=== PATIENT | female | born 1950 | race Caucasian/White ===

== ENCOUNTER 2017-01-13 14:09 | Emergency (ER) | payer OTHER ==
[~2017-01-13] VITALS: Ht 167.6 cm; Wt 111.4 kg
[~2017-01-13 14:09] MED LIST: ALBUAER19 INH; ASPI81TA57 PO; DIPH25CA65 PO; FLUT110A INH; RANI300T PO; SIMV40TA2 PO; TRAM-453 PO; [UNRECOGNIZED DRUG - CODE] PO
[2017-01-13 14:15] VITALS: TEMP 36.8; Ht 167.6 cm; Wt 111.4 kg
[2017-01-13] MEDS ORDERED: ALBUTEROL 0.5% NEB SOLN 2.5 MG/0.5 ML VIAL INH STA (14:40)
[2017-01-13] MEDS ORDERED: PROCHLORPERAZINE 5 MG/ML 2 ML VIAL IV STA (14:40)
[2017-01-13] MEDS ORDERED: KETOROLAC TROMETHAMINE 30 MG/ML VIAL IV STA (14:40)
[2017-01-13] MEDS ORDERED: SODIUM CHLORIDE 0.9% 500ML 500 ML IV STA (14:40)
[2017-01-13] MEDS ORDERED: DEXAMETHASONE SOD INJ 10 MG/ML VIAL IV STA (14:40)
[2017-01-13] MEDS ORDERED: DiphenhydrAMINE HCL 50 MG/ML VIAL IV STA (14:40)
--- NOTE | 2017-01-13 14:42 | EMERGENCY ROOM VISIT NOTE ---
History Report prepared by Latoyaibherbert: Betzaida Smyth Under the Supervision of: Dr. Leonel Moreno M.D. First contact with patient: 14:31 Chief Complaint: PALPITATIONS Stated Complaint: SANCHEZ, RAPID HEARTBEAT, SOB History of Present Illness The patient is a 66 year old female who presents to the Emergency Room with complaints of persistent heart palpitations since last night. She denies any chest pain or shortness of breath. She reports she has been getting pain injections in her knees from Dr. Cool at [facility] for years. Yesterday, she had injections in her bilateral knees and last night, she developed a "pounding headache", urinary incontinence and heart palpitations. She took 2 Excedrin migraine tablets for her headache, and states they provided minimal relief. The patient believes her symptoms are a reaction to the shots, but note she has never had this type of reaction to them before. She also complains of a cough but states this is chronic for her. The patient admits she is a current 1/2 pack a day smoker. She believes she has undergone a stress test in the past. Her PCP is Dr. Haddad with [facility]. She is on daily Aspirin. Source of History: patient Onset: last night Position: chest Quality: other (heart palpitations) Timing: other (persistent) Associated Symptoms: + headache, + cough, No chest pain, No SOB Review of Systems See HPI for pertinent positives & negatives. A total of 10 systems reviewed and were otherwise negative. Past Medical & Surgical Medical Problems: (1) Asthma (2) Constipation (3) GERD (gastroesophageal reflux disease) (4) Headache above the eye region (5) History of migraine Family History Diabetes mellitus Heart disease MOTHER Kidney disease Kidney disease Kidney stones Social History Smoking Status: Current Every Day Smoker Drug Use: none Marital Status: single Housing Status: lives with family Occupation Status: retired Current/Historical Medications Scheduled Acetaminophen (Tylenol), 1,000 MG PO PRN UD Aspirin (Aspirin Adult Low Strengt), 81 MG PO DAILY Aoikrdb-Kqcmqcmicpvvz-Iynrsfnd (Excedrin Migraine), 1 TAB PO PRN Fluticasone Propionate (Flovent Hfa), 2 PUFF IN BID Fluticasone Propionate (Nasal) (Flonase Allergy Relief), 2 SPRAYS RICH BID Ibuprofen (Advil), 400 MG PO PRN UD Pantoprazole (Protonix), 40 MG PO DAILY Utzvnykhuasvl-Lw-Ju W/ Apap (Sudafed Pe Sinus Pressure), 1 TAB PO DAILY Ranitidine Hcl (Zantac), 300 MG PO HS Simvastatin (Zocor), 40 MG PO QPM [Allergy Plus Sinus], 1 TAB PO QPM [Night Time Severe], 1 TSP PO DAILY [Pain Relief Es Back], 2 TABS PO HS Scheduled PRN Albuterol Hfa (Ventolin Hfa), 2 PUFFS INH Q4 PRN for SOB/Wheezing Tramadol Hcl (Ultram), 1-2 TABS PO BID PRN for Pain Allergies Coded Allergies: No Known Allergies (Verified , 05/22/15) Physical Exam Vital Signs Date Time Temp Pulse Resp B/P (MAP) Pulse Ox O2 Delivery O2 Flow Rate FiO2 01/13/17 16:31 69 18 175/89 95 01/13/17 15:08 74 18 143/73 93 Room Air 01/13/17 14:49 94 Room Air 01/13/17 14:21 95 Room Air 01/13/17 14:15 36.8 87 17 154/79 96 Room Air Physical Exam GENERAL: Patient is a healthy-appearing well-nourished 66 year old female HEAD: Normocephalic atraumatic EYES: Ocular movements intact pupils equal and react to light OROPHARYNX mucous membranes are moist no exudates present no erythema or edema present NECK: Supple no nuchal rigidity. No evidence of meningitis or encephalitis on exam. CHEST: Good equal expansion LUNGS: Clear and equal to auscultation CARDIAC: Normal S1 and S2 ABDOMEN: Soft nontender no guarding BACK: No CVA tenderness EXTREMITIES: No pain upon palpation normal muscle strength in all groups no clubbing cyanosis or edema NEURO: Patient is following commands is answering questions appropriately. Alert and oriented x3 Cranial Nerves 2-12 grossly intact Medical Decision & Procedures ER Provider Diagnostic Interpretation: Radiology results as stated below per my review and radiologist interpretation: CHEST ONE VIEW PORTABLE CLINICAL HISTORY: CHEST PAIN SHORTNESS OF BREATH COMPARISON STUDY: No previous studies for comparison. FINDINGS: The cardiac and mediastinal contours are normal. There is no evidence of focal pulmonary consolidation. There is no evidence of failure. No pleural effusions are visualized. IMPRESSION: No active disease in the chest. Electronically signed by: Jason Ortega M.D. 01/13/2017 3:10 PM Laboratory Results 01/13/17 15:00 Red Blood Count 4.41, Mean Corpuscular Volume 99.3, Mean Corpuscular Hemoglobin 33.6, Mean Corpuscular Hemoglobin Concent 33.8, Mean Platelet Volume 10.5, Neutrophils (%) (Auto) 84.6, Lymphocytes (%) (Auto) 7.4, Monocytes (%) (Auto) 7.8, Eosinophils (%) (Auto) 0.0, Basophils (%) (Auto) 0.0, Neutrophils # (Auto) 10.46, Lymphocytes # (Auto) 0.91, Monocytes # (Auto) 0.96, Eosinophils # (Auto) 0.00, Basophils # (Auto) 0.00 01/13/17 15:00 Test 01/13/17 15:00 White Blood Count 12.36 K/uL (4.8-10.8) Red Blood Count 4.41 M/uL (4.2-5.4) Hemoglobin 14.8 g/dL (12.0-16.0) Hematocrit 43.8 % (37-47) Mean Corpuscular Volume 99.3 fL (80-100) Mean Corpuscular Hemoglobin 33.6 pg (25-34) Mean Corpuscular Hemoglobin Concent 33.8 g/dl (32-36) Platelet Count 274 K/uL (130-400) Mean Platelet Volume 10.5 fL (7.4-10.4) Neutrophils (%) (Auto) 84.6 % Lymphocytes (%) (Auto) 7.4 % Monocytes (%) (Auto) 7.8 % Eosinophils (%) (Auto) 0.0 % Basophils (%) (Auto) 0.0 % Neutrophils # (Auto) 10.46 K/uL (1.4-6.5) Lymphocytes # (Auto) 0.91 K/uL (1.2-3.4) Monocytes # (Auto) 0.96 K/uL (0.11-0.59) Eosinophils # (Auto) 0.00 K/uL (0-0.5) Basophils # (Auto) 0.00 K/uL (0-0.2) RDW Standard Deviation 55.7 fL (36.4-46.3) RDW Coefficient of Variation 15.3 % (11.5-14.5) Immature Granulocyte % (Auto) 0.2 % Immature Granulocyte # (Auto) 0.03 K/uL (0.00-0.02) Anion Gap 6.0 mmol/L (3-11) Est Creatinine Clear Calc Drug Dose 82.0 ml/min Estimated GFR () 84.0 Estimated GFR (Non- 72.5 BUN/Creatinine Ratio 24.6 (10-20) Calcium Level 9.9 mg/dl (8.5-10.1) Total Bilirubin 0.2 mg/dl (0.2-1) Direct Bilirubin < 0.1 mg/dl (0-0.2) Aspartate Amino Transf (AST/SGOT) 17 U/L (15-37) Alanine Aminotransferase (ALT/SGPT) 13 U/L (12-78) Alkaline Phosphatase 95 U/L (45-117) Total Creatine Kinase 67 U/L (26-192) Creatine Kinase MB 0.7 ng/ml (0.5-3.6) Creatine Kinase MB Ratio 1.0 (0-3.0) Troponin I < 0.015 ng/ml (0-0.045) Total Protein 8.1 gm/dl (6.4-8.2) Albumin 3.9 gm/dl (3.4-5.0) Lipase 169 U/L (73-393) Labs reviewed by ED physician. Medications Administered Medications (Trade) Dose Ordered Sig/Nathalie Route Start Time Stop Time Status Last Admin Dose Admin Sodium Chloride 500 ml @ 999 mls/hr Q31M STAT IV 01/13/17 14:40 01/13/17 15:10 DC 01/13/17 15:05 999 MLS/HR Ketorolac Tromethamine (Toradol Inj) 30 mg NOW STAT IV 01/13/17 14:40 01/13/17 14:43 DC 01/13/17 15:06 30 MG Prochlorperazine Edisylate (Compazine Inj) 10 mg NOW STAT IV 01/13/17 14:40 01/13/17 14:43 DC 01/13/17 15:06 10 MG Diphenhydramine HCl (Benadryl Inj) 50 mg NOW STAT IV 01/13/17 14:40 01/13/17 14:43 DC 01/13/17 15:06 50 MG Albuterol Sulfate (Ventolin 0.5% 2.5MG/0.5ML Neb) 2.5 mg NOW STAT INH 01/13/17 14:40 01/13/17 14:43 DC 01/13/17 15:07 2.5 MG Dexamethasone Sodium Phosphate (Decadron Inj) 10 mg NOW STAT IV 01/13/17 14:40 01/13/17 14:43 DC 01/13/17 15:06 10 MG ECG Indication: palpitations Rate (beats per minute): 73 Rhythm: normal sinus Findings: no acute ischemic change, no ectopy ED Course 1433: Past medical records reviewed. The patient was evaluated in room B11B. A complete history and physical examination was performed. 1440: Decadron 10 mg IV, Alubterol Sulfate 2.5 mg INH, Benadryl 50 mg IV, Compazine 10 mg IV, Toradol 30 mg IV, NSS 500 ml @ 999 mls/hr IV. 1605: I reevaluated the patient. She is feeling much better. I discussed her results and discharge instructions and she verbalized complete understanding and agreement. Medical Decision This is is a 66-year-old female who presents emergency Department with multiple complaints. Patient is complaining of palpitations along with headache. Patient has no evidence of meningitis encephalitis on examination. The patient' s family member believes that the patient is suffering from a lot of anxiety. Regardless she has a normal EKG normal CK-MB troponin. She was given medications for headache. She has had previous imaging of her head in the past. She describes this as not the worst pain of her life and the headache pain actually went away last evening. For this reason the patient was treated for migraine given normal saline bolus Toradol Compazine and Benadryl. Repeat examination revealed much improvement the patient's symptoms. I do feel that the patient as well as to be discharged home if she has normal CK-MB troponin as well as EKG. I strongly recommended follow-up with cardiology at no strenuous activity until that follow-up. Patient was in agreement with the treatment plan. Medication Reconcilliation Current Medication List: was personally reviewed by me Blood Pressure Screening Patient's blood pressure: Elevated blood pressure Blood pressure disposition: Referred to PCP Impression Primary Impression: Headache Scribe Attestation The scribe's documentation has been prepared under my direction and personally reviewed by me in its entirety. I confirm that the note above accurately reflects all work, treatment, procedures, and medical decision making performed by me. Departure Information Dispostion Home / Self-Care Referrals No Doctor, Assigned (PCP) Patient Instructions Headache Pain, Hypertension Dc, My [facility] Additional Instructions Follow up with DR Hanna's office No strenuous activity until follow up You were found to have an elevated blood pressure today (>120 sytolic or >90 diastolic). Per medicare guidelines, you need to follow up with this blood pressure screening with your Primary Care Physician (PCP). For a new PCP call [phone]. You have been examined and treated today on an emergency basis only. This is not a substitute for, or an effort to provide, complete comprehensive medical care. It is impossible to recognize and treat all injuries or illnesses in a single emergency department visit. It is therefore important that you follow up closely with Dr Haddad. Call as soon as possible for an appointment. Thank you for your time and consideration. I look forward to speaking with you again soon. Please don't hesitate to call us if you have any questions. Problem Qualifiers Primary Impression: Headache Headache type: unspecified Headache chronicity pattern: unspecified pattern Intractability: not intractable Qualified Codes: R51 - Headache
[2017-01-13 14:49] VITALS: O2SAT 94
[2017-01-13] MEDS ORDERED: ASPI-495 PO (15:02)
[2017-01-13] MEDS ORDERED: VNTHFA/IN INH (15:02)
[2017-01-13] MEDS ORDERED: FLVHFA110 IN (15:02)
[2017-01-13 15:09] LABS: COMPLETE YES; HEMATOCRIT 43.8 % (37-47); IG% 0.2 %; LYMPH % 7.4 %; LYMPH ABS # 0.91 K/uL (1.2-3.4); MEAN CELL VOLUME 99.3 fL (80-100); MEAN CORPUSCULAR HEMOGLOBIN 33.6 pg (25-34); MEAN CORPUSCULAR HGB CONC 33.8 g/dl (32-36); MEAN PLATELET VOLUME 10.5 fL (7.4-10.4); MONO % 7.8 %; NEUT % 84.6 %; PLATELET COUNT 274 K/uL (130-400); RED BLOOD COUNT 4.41 M/uL (4.2-5.4); WHITE BLOOD COUNT 12.36 K/uL (4.8-10.8)
[2017-01-13] MEDS ORDERED: PANT40TA PO (15:09)
--- NOTE | 2017-01-13 15:11 | DIAGNOSTIC IMAGING REPORT ---
CHEST ONE VIEW PORTABLE CLINICAL HISTORY: CHEST PAIN SHORTNESS OF BREATH COMPARISON STUDY: No previous studies for comparison. FINDINGS: The cardiac and mediastinal contours are normal. There is no evidence of focal pulmonary consolidation. There is no evidence of failure. No pleural effusions are visualized.[ IMPRESSION: No active disease in the chest. Electronically signed by: Jason Ortega M.D. 01/13/2017 3:10 PM Dictated Date/Time: 01/13/2017 3:09 PM
[2017-01-13 15:26] LABS: ALT/SGPT 13 U/L (12-78); BLOOD UREA NITROGEN 20 mg/dl (7-18); BUN/CREATININE RATIO 24.6 (10-20); CALCIUM 9.9 mg/dl (8.5-10.1); CARBON DIOXIDE 25 mmol/L (21-32); CHLORIDE 113 mmol/L (98-107); CREATININE 0.83 mg/dl (0.60-1.20); GLUCOSE 104 mg/dl (70-99); POTASSIUM 4.1 mmol/L (3.5-5.1); SODIUM 144 mmol/L (136-145)
[2017-01-13 15:32] LABS: ALKALINE PHOSPHATASE 95 U/L (45-117); AST/SGOT 17 U/L (15-37)
[2017-01-13] MEDS ORDERED: [UNRECOGNIZED DRUG - REMARK] PO (15:35)
[2017-01-13] MEDS ORDERED: [UNRECOGNIZED DRUG - OTHER] PO (15:35)
[2017-01-13] MEDS ORDERED: ACET-1256 PO (15:35)
[2017-01-13] MEDS ORDERED: IBUP-1050 PO (15:35)
[2017-01-13] MEDS ORDERED: FLUT0.15 NAE (15:35)
[2017-01-13] MEDS ORDERED: ASPI-390 PO (15:35)
[2017-01-13] MEDS ORDERED: [UNRECOGNIZED DRUG - OTHER] PO (15:35)
[2017-01-13 16:31] VITALS: BP 175/89; PULSE 69; O2SAT 95
== END 2017-01-13 16:32 | disposition home or self-care (01) ==
LOC: C.EDB 14:10
DX: R51 Headache (principal); J45.909 Unspecified asthma, uncomplicated; K21.9 Gastro-esophageal reflux disease without esophagitis; F17.200 Nicotine dependence, unspecified, uncomplicated; Z83.3 Family history of diabetes mellitus; Z84.1 Family history of disorders of kidney and ureter; Z79.82 Long term (current) use of aspirin; Z79.899 Other long term (current) drug therapy

== ENCOUNTER 2022-04-03 08:21 | Observation (INO) ==
--- NOTE | 2022-04-03 08:44 | Emergency Department Note ---
Impression & Plan Hypoxia, CHF (congestive heart failure), SOB (shortness of breath), Pedal edema ED Provider Note NAME: IDRIS YOUNG AGE: 71 SEX: F : 1950 ARRIVES VIA: Ambulance INFORMANT: [Patient][friend, nursing] ED PROVIDER(S): [Sterling Gutierrez MD] CHIEF COMPLAINT: Short of breath HISTORY OF PRESENT ILLNESS: The patient is a 71-year-old female presents to the ED with increasing dyspnea over the last week. As per EMS, her O2 saturation was 88% today and required 6 L to get her over 90%. After a DuoNeb in route, she was requiring 4 L. She does not typically wear oxygen at home. The patient has noticed some increasing pedal edema. Her shortness of breath is worse with any type of exertion. She is not sure if she has gained fluid weight. She does take Lasix daily and has not missed any doses. There has been no increased cough, no fever or chills. No abdominal pain, no vomiting or diarrhea. The patient does have a history of CHF. She has had a bovine aortic valve replacement. She is on Plavix. She also has COPD. She does have a nebulizer at home that she has been using. REVIEW OF SYSTEMS: See HPI for pertinent positives and negatives. A total of ten systems were reviewed and were otherwise negative. PMHx/PSHx: See Below SOCIAL HISTORY: See Below. PHYSICAL EXAM: GENERAL: Patient is in no acute distress. HEENT: No acute trauma, normocephalic atraumatic, mucous membranes moist, no nasal congestion, no scleral icterus. NECK: No stridor, no adenopathy, no meningismus, trachea is midline. LUNGS: Crackles heard bilaterally, no wheezing, no obvious respiratory distress, breath sounds equal. HEART: Without murmurs gallops or rubs, regular rate and rhythm. ABDOMEN: Soft, nontender, bowel sounds positive, no peritonitis. Obese. EXTREMITIES: No cyanosis, moderate bilateral pedal edema somewhat worse on the left, full range of motion of all the joints without pain or difficulty, no signs for acute trauma. NEUROLOGIC: Oriented x 3, no acute motor or sensory deficits, no focal weakness. SKIN: No rash, no jaundice, no diaphoresis. DIFFERENTIAL DIAGNOSIS: Reactive airway disease, pneumonia, RSV, COVID-19, influenza, pneumothorax, COPD, CHF, infection, cardiac ischemia, anemia, pulmonary embolism, bronchitis, as well as other pathologies. EMERGENCY DEPARTMENT COURSE/PROCEDURES: ECG: Indication was shortness of breath. The ECG shows a normal sinus rhythm with a rate of 87. LVH is present. There is no ST elevation, no PVCs. There is some diffuse nonspecific ST change and some baseline artifact. The QTc is 430. Continuous Cardiac Monitoring: An order was placed for continuous cardiac monitoring. The monitor shows a rate of 95 with normal sinus rhythm. Critical Care Note: I have personally spent 51 minutes of critical care time in the direct management of this patient. This includes bedside care, int erpretation of diagnostic studies, and testing, discussion with consultants, patient, and family members, and other required patient management activities. This 51 minutes is in excess of all separately billable procedures. MEDICAL DECISION MAKING: There is no leukocytosis or concerning anemia. There is a normal platelet count. No coagulopathy. No renal failure or significant electrolyte abnormality. Alk phos slightly elevated but the remaining liver enzymes were unremarkable. ECG shows a sinus rhythm, no obvious ischemia. Cardiac enzyme testing x1 is not consistent with acute cardiac injury. BNP is not elevated. Chest film does show CHF. There was no pneumonia. Urinalysis does not show findings of infection. On exam, the patient had crackles in both lung cobos. She was hypoxic without O2 supplementation. Patient was maintained on nasal cannula supplementation. She was administered 80 mg of IV Lasix. The patient appears to be hypoxic and short of breath from heart failure. She is going to require a hospital stay for diuresis. I spoke with the patient and case management, the on-call hospitalist was consulted. Past Med/Surg History Medical History Aortic stenosis Atrial fibrillation Cardiac murmur CHF (congestive heart failure) COPD (chronic obstructive pulmonary disease) Dyslipidemia GERD (gastroesophageal reflux disease) Kidney stones Migraine Osteoarthritis SOB (shortness of breath) on exertion Stomach ulcer HX Tobacco abuse quit 3 months ago Surgical History History of colonoscopy History of cystoscopy History of esophagogastroduodenoscopy (EGD) Hx of cholecystectomy Family History (Updated 10/17/18 @ 11:00 by Jeannie Walter RN) Father Family history of diabetes mellitus Social History Smoking Status: Former smoker Cigarettes Per Day: QUIT 2 MONTHS AGO; Second Hand Exposure: No; Hx Alcohol Use: No Hx Substance Use: No Preferred Language: [place] Communication Ability: Effective Train Planner Required: No Beliefs That Will Affect Care: None Current Living Situation: Family Current Living Situation Comment: lives with sister and [id number] Feels Safe at Home: Yes Assistive Devices: Denture - Upper, Denture - Lower and Glasses Allergies Allergies Allergy/AdvReac Type Severity Reaction Status Date / Time dog dander Allergy Intermediate Sneezing Verified 03/20/19 08:57 egg Allergy SPECIFIC-DUCK Verified 03/20/19 08:57 EGG CAUSED FACIAL SWELLING pollen extracts Allergy HAYFEVER Verified 03/20/19 08:57 methylprednisolone AdvReac Unknown Verified 03/20/19 08:57 [From Depo-Medrol] Home Meds Home Medications Medication Instructions Recorded Confirmed albuterol sulfate 90 mcg/actuation 2 puff inhalation QID PRN 01/02/18 03/19/19 aerosol inhaler (Ventolin HFA) Shortness Of Breath Or Wheezing pantoprazole 40 mg tablet,delayed 40 mg PO BID 01/02/18 03/19/19 release ranitidine HCl 300 mg capsule 150 mg PO BID 01/02/18 03/19/19 metoprolol succinate 25 mg capsule 25 mg PO QAM 09/04/18 03/19/19 sprinkle, ext. release 24 hr acetaminophen 500 mg tablet 500 mg PO Q6H PRN Pain 10/17/18 03/19/19 (Tylenol Extra Strength) amiodarone 200 mg tablet 200 mg PO QAM 10/17/18 03/19/19 ascorbic acid (vitamin C) 500 mg 1,000 mg PO DAILY@12 10/17/18 03/19/19 tablet tramadol 50 mg tablet 50 mg PO UD PRN headache or 10/17/18 03/19/19 arthritis pain aspirin 81 mg chewable tablet 81 mg PO DAILY 03/19/19 03/19/19 fluticasone propionate 220 1 puff inhalation BID 03/19/19 03/19/19 mcg/actuation HFA aerosol inhaler (Flovent HFA) Previous Rx's Medication Instructions Recorded ferrous sulfate 325 mg (65 mg 325 mg PO DAILY@12 #30 tabs 07/21/18 iron) tablet furosemide 20 mg tablet 20 mg PO QAM #30 tabs 07/21/18 magnesium oxide 400 mg (241.3 mg 400 mg PO BID #60 tabs 07/21/18 magnesium) tablet nystatin 100,000 unit/gram topical 1 applic topical TID #60 grams 11/28/21 powder Results & Data (ED) Vital Signs Vital Signs - 24 hr 04/03/22 08:40 04/03/22 08:40 04/03/22 08:40 Temperature 36.7 C Temperature Source Oral Pulse Rate 95 H Respiratory Rate 24 Respiratory Effort / Characteristics Short of Breath Respiratory Pattern Regular Blood Pressure 153/85 H Blood Pressure Mean 107 Blood Pressure Position Sitting Pulse Oximetry 92 Oxygen Delivery Method Room Air Room Air Sepsis Recent Fever Within 48 Hours No Sepsis New/Unexplained Change in Mental Status No Sepsis Action Taken by Nursing No Action Required 04/03/22 08:40 04/03/22 08:43 Temperature Temperature Source Oral Pulse Rate Respiratory Rate Respiratory Effort / Characteristics Respiratory Pattern Blood Pressure Blood Pressure Mean Blood Pressure Position Pulse Oximetry Oxygen Delivery Method Room Air Sepsis Recent Fever Within 48 Hours Sepsis New/Unexplained Change in Mental Status Sepsis Action Taken by [facility] Medications Current Medication List: was personally reviewed by me Laboratory Data Attestation: I reviewed the patient's lab results. Result diagrams: 04/03/22 08:30 04/03/22 08:30 Lab Results 04/03/22 04/03/22 04/03/22 Range/Units 08:30 08:30 08:30 WBC 9.93 (4.8-10.8) K/ul RBC 3.83 L (3.93-5.22) M/uL Hgb 12.0 (12.0-16.0) g/dl Hct 38.4 (34.1-44.9) % MCV 100.3 H (80.0-100.0) fL MCH 31.3 (25.0-34.0) pg MCHC 31.3 L (32.0-36.0) g/dL RDW Std Deviation 56.8 H (36.4-46.3) fL RDW Coeff of Moni 15.5 H (11.5-14.5) % Plt Count 249 (130-400) K/uL MPV 10.8 (9.4-12.3) fL Immature Gran % (Auto) 0.3 % Neut % (Auto) 65.3 % Lymph % (Auto) 18.3 % Boundary % (Auto) 11.1 % Eos % (Auto) 4.6 % Baso % (Auto) 0.4 % Neut # (Auto) 6.48 (1.4-6.5) K/uL Lymph # (Auto) 1.82 (1.2-3.4) K/uL Boundary # (Auto) 1.10 H (0.24-0.82) K/uL Eos # (Auto) 0.46 (0-0.50) K/uL Baso # (Auto) 0.04 (0-0.2) K/uL Immature Gran # (Auto) 0.03 H (0.00-0.02) K/uL PT 10.3 (9.0-12.0) Seconds INR 1.0 (0.9-1.1) APTT 28.8 (21.0-31.0) Seconds PTT Ratio 1.0 Sodium 140 (136-145) mmol/L Potassium 4.2 (3.5-5.1) mmol/L Chloride 107 (98-107) mmol/L Carbon Dioxide 26 (21-32) mmol/L Anion Gap 7 (3-11) BUN 24 H (6-23) mg/dl Creatinine 1.11 (0.6-1.2) mg/dl Est Cr Clr Drug Dosing 66.8 ml/min Est GFR ( Amer) 57.1 ml/min Est GFR (Non-Af Amer) 49.2 ml/min BUN/Creatinine Ratio 21.6 H (10-20) Glucose 115 H (70-99(Fasting)) mg/dl Calcium 8.9 (8.5-10.1) mg/dl Magnesium 2.1 (1.7-2.4) mg/dl Total Bilirubin 0.5 (0.2-1.0) mg/dl AST 16 (13-39) U/L ALT 10 (7-52) U/L Alkaline Phosphatase 113 H (34-104) U/L Troponin I High Sens 7.6 (0-14) pg/ml B-Natriuretic Peptide (0-100) pg/ml Total Protein 7.7 (6.0-8.3) gm/dl Albumin 3.7 (3.4-5.0) gm/dl Globulin 4.0 (2.5-4.0) gm/dl Albumin/Globulin Ratio 0.9 (0.9-2) Urine Color Urine Appearance (Clear) Urine pH (4.5-7.5) Ur Specific [place] (1.000-1.030) Urine Protein (Negative) Urine Glucose (UA) (Negative) Urine Ketones (Negative) Urine Blood (Negative) Urine Nitrite (Negative) Urine Bilirubin (Negative) Urine Urobilinogen (Negative) Ur Leukocyte Esterase (Negative) Urine WBC (Auto) (0-5) /hpf Urine RBC (Auto) (0-4) /hpf U Hyaline Cast (Auto) (0-5) /lpf U Epithel Cells (Auto) (0-5) /lpf Urine Bacteria (Auto) (Negative) 04/03/22 04/03/22 Range/Units 08:30 08:50 WBC (4.8-10.8) K/ul RBC (3.93-5.22) M/uL Hgb (12.0-16.0) g/dl Hct (34.1-44.9) % MCV (80.0-100.0) fL MCH (25.0-34.0) pg MCHC (32.0-36.0) g/dL RDW Std Deviation (36.4-46.3) fL RDW Coeff of Moni (11.5-14.5) % Plt Count (130-400) K/uL MPV (9.4-12.3) fL Immature Gran % (Auto) % Neut % (Auto) % Lymph % (Auto) % Boundary % (Auto) % Eos % (Auto) % Baso % (Auto) % Neut # (Auto) (1.4-6.5) K/uL Lymph # (Auto) (1.2-3.4) K/uL Bound[place] # (Auto) (0.24-0.82) K/uL Eos # (Auto) (0-0.50) K/uL Baso # (Auto) (0-0.2) K/uL Immature Gran # (Auto) (0.00-0.02) K/uL PT (9.0-12.0) Seconds INR (0.9-1.1) APTT (21.0-31.0) Seconds PTT Ratio Sodium (136-145) mmol/L Potassium (3.5-5.1) mmol/L Chloride (98-107) mmol/L Carbon Dioxide (21-32) mmol/L Anion Gap (3-11) BUN (6-23) mg/dl Creatinine (0.6-1.2) mg/dl Est Cr Clr Drug Dosing ml/min Est GFR ( Amer) ml/min Est GFR (Non-Af Amer) ml/min BUN/Creatinine Ratio (10-20) Glucose (70-99(Fasting)) mg/dl Calcium (8.5-10.1) mg/dl Magnesium (1.7-2.4) mg/dl Total Bilirubin (0.2-1.0) mg/dl AST (13-39) U/L ALT (7-52) U/L Alkaline Phosphatase (34-104) U/L Troponin I High Sens (0-14) pg/ml B-Natriuretic Peptide 41 (0-100) pg/ml Total Protein (6.0-8.3) gm/dl Albumin (3.4-5.0) gm/dl Globulin (2.5-4.0) gm/dl Albumin/Globulin Ratio (0.9-2) Urine Color Yellow Urine Appearance Clear (Clear) Urine pH 7.0 (4.5-7.5) Ur Specific [place] 1.011 (1.000-1.030) Urine Protein Negative (Negative) Urine Glucose (UA) Negative (Negative) Urine Ketones Negative (Negative) Urine Blood Negative (Negative) Urine Nitrite Negative (Negative) Urine Bilirubin Negative (Negative) Urine Urobilinogen Negative (Negative) Ur Leukocyte Esterase Trace H (Negative) Urine WBC (Auto) 1-5 (0-5) /hpf Urine RBC (Auto) 0-4 (0-4) /hpf U Hyaline Cast (Auto) 0 (0-5) /lpf U Epithel Cells (Auto) 10-20 H (0-5) /lpf Urine Bacteria (Auto) Negative (Negative) Imaging Data Radiologist's Impression: Chest X-Ray 04/03/22 08:39 XR chest 1V portable HISTORY: 71 years-old Female Dyspnea acute shortness of breath COMPARISON: Chest CT 07/16/2018 TECHNIQUE: AP view of the chest FINDINGS: Cardiac silhouette is enlarged. No pneumothorax. Pulmonary vascular congestion. Irregular interstitial densities with patchy multifocal airspace opacities, most pronounced within a peripheral distribution. Small pleural effusions. No pneumothorax. Bones appear grossly intact. IMPRESSION: 1. Cardiomegaly with mixed interstitial and alveolar opacities suspicious for an infectious or inflammatory pneumonitis such as viral pneumonia. Superimposed pulmonary edema could appear similarly. 2. Small pleural effusions. ACT 112: Negative or not required by law. The above report was generated using voice recognition software. It may contain grammatical, syntax or spelling errors. Electronically signed by: Scout Morgan M.D. 04/03/2022 9:14 AM Discharge Plan Visit Data Chief Complaint: Shortness of Breath/Dyspnea Stated Complaint: SOB, LEG EDEMA ED Provider: Sterling Gutierrez Discharge Problem: Hypoxia, CHF (congestive heart failure), SOB (shortness of breath), Pedal edema Patient Disposition: Admitted As Inpatient Condition: Fair Forms Stand Alone Forms: [facility] Prescriptions Prescriptions: No Action pantoprazole 40 mg Tablet,Delayed Release (Dr/Ec) 40 mg PO BID ranitidine HCl 300 mg Capsule 150 mg PO BID albuterol sulfate [Ventolin HFA] 90 mcg/actuation Hfa Aerosol Inhaler 2 puff INHALATION QID PRN (Reason: Shortness Of Breath Or Wheezing) Label Comments: Patient states "haven't taken this for months". metoprolol succinate 25 mg Capsule,Sprinkle,Er 24hr 25 mg PO QAM aspirin 81 mg Tablet,Chewable 81 mg PO DAILY Flovent HFA 220 mcg/actuation Hfa Aerosol Inhaler 1 puff INHALATION BID furosemide 20 mg Tablet 20 mg PO QAM Qty: 30 5RF magnesium oxide 400 mg (241.3 mg magnesium) Tablet 400 mg PO BID Qty: 60 5RF ferrous sulfate 325 mg (65 mg iron) tablet 325 mg PO DAILY@12 Qty: 30 5RF Rx Instructions: Take with lunch + ascorbic acid. amiodarone 200 mg tablet 200 mg PO QAM tramadol 50 mg tablet 50 mg PO UD PRN (Reason: headache or arthritis pain) ascorbic acid (vitamin C) 500 mg tablet 1,000 mg PO DAILY@12 Rx Instructions: Take with ferrous sulfate. acetaminophen [Tylenol Extra Strength] 500 mg Tablet 500 mg PO Q6H PRN (Reason: Pain) nystatin 100,000 unit/gram powder 1 applic topical TID Qty: 60 0RF Referrals Referrals: Jesi Haddad DO [Outside Practitioners] -
[2022-04-03 08:52] LABS: Basophils # (auto) 0.04 K/uL (0-0.2); Basophils % (auto) 0.4 %; Eosinophils # (auto) 0.46 K/uL (0-0.50); Eosinophils % (auto) 4.6 %; Hematocrit (blood only) 38.4 % (34.1-44.9); Immature Granulocytes # (auto) 0.03 K/uL (0.00-0.02); Immature Granulocytes % (auto) 0.3 %; Lymphocytes # (auto) 1.82 K/uL (1.2-3.4); Lymphocytes % (auto) 18.3 %; Mean Corpuscular Hemoglobin 31.3 pg (25.0-34.0); Mean Corpuscular Hgb Conc 31.3 g/dL (32.0-36.0); Mean Corpuscular Volume 100.3 fL (80.0-100.0); Mean Platelet Volume 10.8 fL (9.4-12.3); Monocytes % (auto) 11.1 %; Neutrophils # (auto) 6.48 K/uL (1.4-6.5); Neutrophils % (auto) 65.3 %; Platelet Count 249 K/uL (130-400); RDW Coefficient of Variation 15.5 % (11.5-14.5); RDW Standard Deviation 56.8 fL (36.4-46.3); Red Blood Count 3.83 M/uL (3.93-5.22); White Blood Count 9.93 K/ul (4.8-10.8)
[2022-04-03 09:03] LABS: Partial Thromboplastin Time 28.8 Seconds (21.0-31.0); Prothrombin Time 10.3 Seconds (9.0-12.0)
[2022-04-03 09:07] LABS: Appearance Urine Clear (Clear); Bacteria Urine Automated Negative (Negative); Bilirubin Urine Negative (Negative); Blood Urine Negative (Negative); Cast Urine Automated 0 /lpf (0-5); Color Urine Yellow; Glucose Urine UA Negative (Negative); Ketones Urine Negative (Negative); Leukocyte Esterase Urine Trace (Negative); Nitrite Urine Negative (Negative); Protein Urine Negative (Negative); RBC Urine Automated 0-4 /hpf (0-4); Specific Gravity Urine 1.011 (1.000-1.030); Urobilinogen Urine Negative (Negative)
[2022-04-03 09:14] LABS: Albumin Globulin Ratio 0.9 (0.9-2); Albumin Level 3.7 gm/dl (3.4-5.0); BUN Creatinine Ratio 21.6 (10-20); Bilirubin,Total 0.5 mg/dl (0.2-1.0); Calcium 8.9 mg/dl (8.5-10.1); Creatinine Clr Calc Pharmacy 66.8 ml/min; Est GFR (African American) 57.1 ml/min; Est GFR (Non-African American) 49.2 ml/min; Magnesium 2.1 mg/dl (1.7-2.4); Potassium 4.2 mmol/L (3.5-5.1); Total Protein 7.7 gm/dl (6.0-8.3)
--- NOTE | 2022-04-03 09:16 | XRay Report ---
XR chest 1V portable HISTORY: 71 years-old Female Dyspnea acute shortness of breath COMPARISON: Chest CT 07/16/2018 TECHNIQUE: AP view of the chest FINDINGS: Cardiac silhouette is enlarged. No pneumothorax. Pulmonary vascular congestion. Irregular interstitia l densities with patchy multifocal airspace opacities, most pronounced within a peripheral distributi on. Small pleural effusions. No pneumothorax. Bones appear grossly intact. IMPRESSION: 1. Cardiomegaly with mixed interstitial and alveolar opacities suspicious for an infectious or inflam matory pneumonitis such as viral pneumonia. Superimposed pulmonary edema could appear similarly. 2. Small pleural effusions. ACT 112: Negative or not required by law. The above report was generated using voice recognition software. It may contain grammatical, syntax o r spelling errors. Electronically signed by: Scout Morgan M.D. 04/03/2022 9:14 AM
[2022-04-03 09:19] LABS: Troponin I High Sensitivity 7.6 pg/ml (0-14)
[2022-04-03] MEDS ORDERED: FUROSEMIDE 40 MG/4 ML VIAL IV ONE (09:22)
--- NOTE | 2022-04-03 09:55 | History & Physical Report ---
Date of Service April 03, 2022 Assessment & Plan (1) CHF (congestive heart failure): Plan: Acute CHF with with preserved EF Hypoxia due to above H/O TAVR CXR showed: Cardiomegaly with mixed interstitial and alveolar opacities suspicious for an infectious or inflammatory pneumonitis such as viral pneumonia. Superimposed pulmonary edema could appear similarly. Small pleural effusions. Last ECHO :May 2019: EF greater than 70%, normal LV segmental wall motion abnormalities. The right ventricular systolic function is normal. Hold PO diuretics Start IV Lasix 40mg BID Update ECHO Daily weight, I/Os, fluid restriction Low sodium diet Supplemental Oxygen PRN Monitor renal function/electrolytes Cardiology consulted Suspected Bronchitis H/O COPD CXR as above COVID screen negative Check procalcitonin Empirically started on doxycycline Nebs as needed GERD Continue PPI Paroxysmal atrial fibrillation S/P TAVR Currently not on anticoagulation Continue amiodarone, metoprolol Continue aspirin, Plavix Dyslipidemia on statin Chronic Migraine On topiramate CKD stage III Cr at baseline Monitor renal function Hypothyroidism Continue levothyroxine Morbid obesity BMI 54 DVT Px: Lovenox SQ Code Status DNI/DNR as per my discussion with patient/Family Disposition PT/OT prior to discharge (2) Hypoxia: History of Present Illness Chief Complaint: Shortness of breath Primary Care Provider: Chana Stacy PA-C Patient is a 71-year-old female with history of COPD, morbid obesity, GERD, CHF, paroxysmal atrial fibrillation, dyslipidemia, s/p TAVR, CKD stage III and other medical problems presents with history of worsening shortness. Patient states her symptoms started about 1 week ago including shortness of breath has been gradually worsening. EMS noted her oxygen saturations to be 88% on room air and placed on 6 L supplemental oxygen to maintain saturations. She also states having cough with yellowish expectoration associated with chills since 1 week duration. Reports chronic orthopnea. She believes that she gained weight recently but was unsure by how much. Also reports having chronic leg swelling which she believes to be unchanged. She admits to taking medications regularly. She states having chronic headache for which she takes topiramate. Denies any history of chest pain, palpitations, dizziness, wheezing, fever, head trauma, change in vision, nausea, vomiting, abdominal pain, diarrhea, dysuria, hematuria, sick contact. Allergies Allergy/AdvReac Type Severity Reaction Status Date / Time dog dander Allergy Intermediate Sneezing Verified 03/20/19 08:57 egg Allergy SPECIFIC-DUCK Verified 03/20/19 08:57 EGG CAUSED FACIAL SWELLING pollen extracts Allergy HAYFEVER Verified 03/20/19 08:57 methylprednisolone AdvReac Unknown Verified 03/20/19 08:57 [From [facility]] Home Medications Medication Instructions Recorded Confirmed Type albuterol sulfate 90 mcg/actuation 2 puff inhalation QID PRN 01/02/18 04/03/22 History aerosol inhaler (Ventolin HFA) Shortness Of Breath Or Wheezing pantoprazole 40 mg tablet,delayed 40 mg PO BID 01/02/18 04/03/22 History release ranitidine HCl 300 mg capsule 150 mg PO BID 01/02/18 04/03/22 History ferrous sulfate 325 mg (65 mg 325 mg PO DAILY@12 #30 tabs 07/21/18 04/03/22 Rx iron) tablet furosemide 20 mg tablet 20 mg PO QAM #30 tabs 07/21/18 04/03/22 Rx magnesium oxide 400 mg (241.3 mg 400 mg PO BID #60 tabs 07/21/18 04/03/22 Rx magnesium) tablet metoprolol succinate 25 mg capsule 25 mg PO QAM 09/04/18 04/03/22 History sprinkle, ext. release 24 hr acetaminophen 500 mg tablet 500 mg PO Q6H PRN Pain 10/17/18 04/03/22 History (Tylenol Extra Strength) amiodarone 200 mg tablet 200 mg PO QAM 10/17/18 04/03/22 History ascorbic acid (vitamin C) 500 mg 250 mg PO DAILY@12 10/17/18 04/03/22 History tablet tramadol 50 mg tablet 50 mg PO Q6H PRN headache or 10/17/18 04/03/22 History arthritis pain aspirin 81 mg chewable tablet 81 mg PO DAILY 03/19/19 04/03/22 History fluticasone propionate 220 1 puff inhalation BID 03/19/19 04/03/22 History mcg/actuation HFA aerosol inhaler (Flovent HFA) clopidogrel 75 mg tablet 75 mg PO DAILY 04/03/22 04/03/22 History ipratropium 0.5 mg-albuterol 3 mg 3 ml inhalation Q6H PRN Shortness 04/03/22 04/03/22 History (2.5 mg base)/3 mL nebulization Of Breath Or Wheezing soln levothyroxine 25 mcg tablet 25 mcg PO DAILY 04/03/22 04/03/22 History nystatin 100,000 unit/gram topical 1 applic topical TID PRN Rash 04/03/22 04/03/22 History powder simvastatin 10 mg tablet 10 mg PO HS 04/03/22 04/03/22 History topiramate 25 mg tablet 25 mg PO BID 04/03/22 04/03/22 History Past Med/Surg History Medical History Aortic stenosis Atrial fibrillation Cardiac murmur CHF (congestive heart failure) COPD (chronic obstructive pulmonary disease) Dyslipidemia GERD (gastroesophageal reflux disease) Kidney stones Migraine Osteoarthritis SOB (shortness of breath) on exertion Stomach ulcer HX Tobacco abuse quit 3 months ago Surgical History History of colonoscopy History of cystoscopy History of esophagogastroduodenoscopy (EGD) Hx of cholecystectomy Family History Father Family history of diabetes mellitus Social History Smoking Status: Former smoker Cigarettes Per Day: QUIT 2 MONTHS AGO; Second Hand Exposure: No; Hx Alcohol Use: No Hx Substance Use: No Preferred Language: Syriac Communication Ability: Effective Mechanical Cad Drafter Required: No Beliefs That Will Affect Care: None Current Living Situation: Family Current Living Situation Comment: lives with sister and [id number] Feels Safe at Home: Yes Assistive Devices: Denture - Upper, Denture - Lower and Glasses Review of Systems Review of Systems: All systems reviewed & are unremarkable except as noted in Subjective Physical Exam Physical Exam: Physical Exam: Vitals signs as noted above General Appearance:Morbidly Obese, no apparent distress Head: normocephalic, Atraumatic Eyes: normal inspection, EOMI Neck: supple, Trachea midline Respiratory/Chest: Decreased breath sounds, +Basal crackles, No accessory muscle use Cardiovascular: S1, S2, No audible murmur Abdomen/GI:Soft, Non tender, Bowel sounds present Extremities/Musculoskeletal:normal inspection, 1+ B/L LE edema Neurologic/Psych:AAOX3, grossly no focal neurological deficits Skin: normal color, warm Results & Data Results & Data ([facility]) Vital Signs (Past 12 Hours) Vital Signs Temp Pulse Resp BP Pulse Ox O2 Del Method 04/03/22 08:43 Room Air 04/03/22 08:40 Room Air 04/03/22 08:40 36.7 C 95 H 24 153/85 H 92 Room Air Laboratory Results Short CBC 04/03/22 Range/Units 08:30 WBC 9.93 (4.8-10.8) K/ul Hgb 12.0 (12.0-16.0) g/dl Hct 38.4 (34.1-44.9) % Plt Count 249 (130-400) K/uL BMP 04/03/22 08:30 Sodium 140 Potassium 4.2 Chloride 107 Carbon Dioxide 26 BUN 24 H Creatinine 1.11 Glucose 115 H Calcium 8.9 Liver Function 04/03/22 Range/Units 08:30 Total Bilirubin 0.5 (0.2-1.0) mg/dl AST 16 (13-39) U/L ALT 10 (7-52) U/L Alkaline Phosphatase 113 H (34-104) U/L Albumin 3.7 (3.4-5.0) gm/dl Urine 04/03/22 Range/Units 08:50 Urine Color Yellow Urine Appearance Clear (Clear) Urine pH 7.0 (4.5-7.5) Ur Specific [place] 1.011 (1.000-1.030) Urine Protein Negative (Negative) Urine Glucose (UA) Negative (Negative) Diagnostic Findings CXR:Cardiomegaly with mixed interstitial and alveolar opacities suspicious for an infectious or inflammatory pneumonitis such as viral pneumonia. Superimposed pulmonary edema could appear similarly. Small pleural effusions. ECG Additional Comments: EKG:NSR, nonspecific T wave abnormality. QTc 430. (1) CHF (congestive heart failure) Heart failure chronicity: acute on chronic Heart failure type: unspecified Qualified Code(s): I50.9 - Heart failure, unspecified
[2022-04-03] MEDS ORDERED: POLYETHYLENE (MIRALAX) 17 GM PACK PO PRN (12:35)
[2022-04-03] MEDS ORDERED: ONDANSETRON INJ 2 MG/ML 2 ML VIAL IV PRN (12:35)
[2022-04-03] MEDS ORDERED: ALBUTEROL HFA 8 GM INHALER INH PRN (12:35)
[2022-04-03] MEDS: FERROUS SULFATE 325 MG TAB PO SCH (13:31)
[2022-04-03] MEDS: DOXYCYCLINE HYCLATE 100 MG CAP PO SCH ×2 (13:31→20:16)
[2022-04-03] MEDS: ACETAMINOPHEN 325 MG TAB PO PRN ×2 (13:31→20:15)
[2022-04-03] MEDS: ENOXAPARIN INJ 40 MG/0.4 ML SYR SQ SCH (13:31)
[2022-04-03] MEDS: FAMOTIDINE 20 MG TAB PO SCH (13:31)
[2022-04-03] MEDS: ALBUT/IPRATROP 3MG/0.5MG NEB 3 ML VIAL NEB SCH ×2 (18:16→18:17)
[2022-04-03] MEDS: traMADol HCL 50 MG TABLET PO PRN (20:14)
[2022-04-03] MEDS: FUROSEMIDE 40 MG/4 ML VIAL IV SCH (20:15)
[2022-04-03] MEDS: PANTOprazole 40 MG TAB PO SCH (20:17)
[2022-04-03] MEDS: TOPIRAMATE 25 MG TAB PO SCH (20:17)
[2022-04-03] MEDS: MAGNESIUM OXIDE 400 MG TAB PO SCH (20:18)
[2022-04-03] MEDS: SIMVASTATIN 10 MG TAB PO SCH (20:18)
[2022-04-03] MEDS ORDERED: FLUTICASONE HFA 220 MCG INHALER INH SCH (21:00)
--- NOTE | 2022-04-03 23:03 | Electrocardiogram Report ---
Test Reason : Blood Pressure : / mmHG Vent. Rate : 087 BPM Atrial Rate : 087 BPM P-R Int : 172 ms QRS Dur : 094 ms QT Int : 358 ms P-R-T Axes : 046 015 083 degrees QTc Int : 430 ms Poor data quality, interpretation may be adversely affected Normal sinus rhythm Minimal voltage criteria for LVH, may be normal variant Nonspecific T wave abnormality Abnormal ECG When compared with ECG of 21-JUL-2018 06:46, Premature atrial complexes are no longer Present Confirmed by Larry Saez ([id number]) on 04/03/2022 11:03:21 PM Referred By: REFERRED SELF Confirmed By:Larry Saez
[2022-04-04] MEDS: ENOXAPARIN INJ 40 MG/0.4 ML SYR SQ SCH (00:37)
[2022-04-04] MEDS: ACETAMINOPHEN 325 MG TAB PO PRN ×3 (03:58→19:48)
[2022-04-04 07:38] LABS: Hematocrit (blood only) 36.6 % (34.1-44.9); Hemoglobin 11.9 g/dl (12.0-16.0); Mean Corpuscular Hemoglobin 31.3 pg (25.0-34.0); Mean Corpuscular Hgb Conc 32.5 g/dL (32.0-36.0); Mean Corpuscular Volume 96.3 fL (80.0-100.0); Mean Platelet Volume 11.1 fL (9.4-12.3); Platelet Count 248 K/uL (130-400); RDW Coefficient of Variation 15.4 % (11.5-14.5); RDW Standard Deviation 54.8 fL (36.4-46.3); White Blood Count 8.87 K/ul (4.8-10.8)
[2022-04-04 08:10] LABS: Creatinine Clr Calc Pharmacy 40.3 ml/min; Est GFR (African American) 32.2 ml/min; Est GFR (Non-African American) 27.8 ml/min
[2022-04-04] MEDS: ALBUT/IPRATROP 3MG/0.5MG NEB 3 ML VIAL NEB SCH ×2 (08:11→11:57)
--- NOTE | 2022-04-04 08:32 | XRay Report ---
XR chest 1V portable CLINICAL HISTORY: Congestive heart failure. COMPARISON STUDY: Chest CT July 16, 2018 and chest radiograph April 03, 2022. FINDINGS: Lung volumes are diminished. This is unchanged. There are suspected small bilateral pleural effusions. No pneumothorax. Cardiomediastinal silhouette is stable. Prosthetic cardiac valve. Multif ocal nodular bilateral airspace opacities have slightly progressed. IMPRESSION: Slight progression of extensive multifocal bilateral airspace opacities. Multifocal pneu monia is favored over alveolar edema. Radiographic follow up to ensure resolution is recommended. ACT 112: Negative or not required by law. Electronically signed by: Shawn Juarez M.D. 04/04/2022 8:31 AM
[2022-04-04] MEDS: ASPIRIN 81 MG CHEW PO SCH (08:50)
[2022-04-04] MEDS: FUROSEMIDE 40 MG/4 ML VIAL IV SCH (08:50)
[2022-04-04] MEDS: LEVOTHYROXINE SODIUM 25 MCG TABLET PO SCH (08:50)
[2022-04-04] MEDS: AMIODARONE 200 MG TAB PO SCH (08:50)
[2022-04-04] MEDS: METOPROLOL TARTRATE 25 MG TAB PO SCH (08:50)
[2022-04-04] MEDS: CLOPIDOGREL BISULFATE 75 MG TAB PO SCH (08:50)
[2022-04-04] MEDS: FAMOTIDINE 20 MG TAB PO SCH (08:50)
[2022-04-04] MEDS: TOPIRAMATE 25 MG TAB PO SCH ×2 (08:50→19:47)
[2022-04-04] MEDS: DOXYCYCLINE HYCLATE 100 MG CAP PO SCH ×2 (08:50→19:49)
[2022-04-04] MEDS: PANTOprazole 40 MG TAB PO SCH ×2 (08:50→19:49)
[2022-04-04] MEDS: MAGNESIUM OXIDE 400 MG TAB PO SCH ×2 (08:50→19:48)
[2022-04-04] MEDS: FLUTICASONE FUROATE 200MCG 14 PUFFS/INHALER INH SCH (08:51)
[2022-04-04 08:57] LABS: BUN Creatinine Ratio 16.3 (10-20); Calcium 8.7 mg/dl (8.5-10.1); Magnesium 2.1 mg/dl (1.7-2.4); Potassium 3.6 mmol/L (3.5-5.1)
[2022-04-04] MEDS ORDERED: cefTRIAXone SODIUM 1,000 MG in DEXTROSE 5% AD-VAN 50 ML IV SCH (09:00)
[2022-04-04] MEDS: cefTRIAXone SODIUM 2,000 MG in DEXTROSE 5% 50 ML IV SCH (10:17)
[2022-04-04] MEDS: traMADol HCL 50 MG TABLET PO PRN ×2 (12:00→19:48)
--- NOTE | 2022-04-04 12:07 | Hospitalist Progress Note ---
Date of Service April 04, 2022 Assessment & Plan (1) CHF (congestive heart failure): Plan: Acute CHF with with preserved EF Hypoxia due to above H/O TAVR CXR showed: Cardiomegaly with mixed interstitial and alveolar opacities suspicious for an infectious or inflammatory pneumonitis such as viral pneumonia. Superimposed pulmonary edema could appear similarly. Small pleural effusions. Last ECHO :May 2019: EF greater than 70%, normal LV segmental wall motion abnormalities. The right ventricular systolic function is normal. Hold PO diuretics Started on IV Lasix 40mg BID Update ECHO--pending Daily weight, I/Os, fluid restriction Low sodium diet Supplemental Oxygen PRN Monitor renal function/electrolytes Cardiology consulted Hold Lasix tonight due to PAULETTE Possible Multifocal Pneumonia-POA H/O COPD CXR: Slight progression of extensive multifocal bilateral airspace opacities. Multifocal pneumonia is favored over alveolar edema. Radiographic follow up to ensure resolution is recommended. COVID screen negative Check Biofire Procalcitonin < 0.05 Continue Ceftriaxone, doxycycline Nebs as needed Acute Kidney Injury on CKD III Due to diuretics Cr 1.78 today Monitor renal function Avoid nephrotoxic agents as able GERD Continue PPI Paroxysmal atrial fibrillation S/P TAVR Currently not on anticoagulation Continue amiodarone, metoprolol Continue aspirin, Plavix Dyslipidemia on statin Chronic Migraine On topiramate Hypothyroidism Continue levothyroxine Morbid obesity BMI 54 DVT Px: Heparin SQ Code Status DNI/DNR as per my discussion with patient/Family Disposition PT/OT prior to discharge (2) Hypoxia: Admission and Anticipated Discharge Date Admission Date: April 03, 2022 Subjective Patient is seen and examined at bedside Feels a lot better today Shortness of breath much improved Less cough today No other complaints Denies any chest pain, dizziness, nausea, abdominal pain Saturating low 90s on room air Review of Systems Review of Systems: All systems reviewed & are unremarkable except as noted in Subjective Physical Exam Physical Exam: Physical Exam: Vitals signs as noted above General Appearance:Morbidly Obese, no apparent distress Head: normocephalic, Atraumatic Eyes: normal inspection, EOMI Neck: supple, Trachea midline Respiratory/Chest: Decreased breath sounds, +Basal crackles, No accessory muscle use Cardiovascular: S1, S2, No audible murmur Abdomen/GI:Soft, Non tender, Bowel sounds present Extremities/Musculoskeletal:normal inspection, 1+ B/L LE edema Neurologic/Psych:AAOX3, grossly no focal neurological deficits Skin: normal color, warm Results & Data Results & Data ([facility]) Vital Signs (Past 12 Hours) Vital Signs Temp Pulse Pulse Resp BP Pulse Ox O2 Del Method 04/04/22 11:57 78 18 90 Room Air 04/04/22 08:00 76 04/04/22 08:00 Room Air 04/04/22 10:52 36.5 C 83 19 130/66 91 Room Air 04/04/22 08:11 74 16 93 Nasal Cannula 04/04/22 07:52 36.5 C 73 20 123/64 93 Nasal Cannula 04/04/22 04:15 36.7 C 76 18 108/54 L 92 Nasal Cannula 04/04/22 01:06 78 O2 Flow Rate 04/04/22 11:57 04/04/22 08:00 04/04/22 08:00 04/04/22 10:52 04/04/22 08:11 2 04/04/22 07:52 2 04/04/22 04:15 2 04/04/22 01:06 Laboratory Results Short CBC 04/04/22 Range/Units 06:59 WBC 8.87 (4.8-10.8) K/ul Hgb 11.9 L (12.0-16.0) g/dl Hct 36.6 (34.1-44.9) % Plt Count 248 (130-400) K/uL [facility] 04/04/22 06:59 Sodium 136 Potassium 3.6 Chloride 100 Carbon Dioxide 29 BUN 29 H Creatinine 1.78 H D Glucose 131 H Calcium 8.7 (1) CHF (congestive heart failure) Heart failure chronicity: acute on chronic Heart failure type: unspecified Qualified Code(s): I50.9 - Heart failure, unspecified
--- NOTE | 2022-04-04 12:47 | Cardiology Consultation ---
Date of Consultation April 04, 2022 Assessment & Plan (1) Hypoxia: (2) SOB (shortness of breath): (3) Pedal edema: (4) Social handicap: (5) Tobacco abuse: (6) COPD (chronic obstructive pulmonary disease): (7) Aortic stenosis: Plan I believe that patient is suffering from acute copd exacerbation no signs of acute diastolic heart failure echo unremarkable with hyperdynamic LV systolic function and appropriately functioning bioprosthetic AVR LE edema secondary to chronic lung disease would change daily po lasix to 40mg daily no further cardiac testing or intervention necessary at this time History of Present Illness Reason for Consultation: SOB Requesting Physician: MEHRDAD Attending Physician: Berny Tay MD History of Present Illness Patient seen and examined, chart reviewed and telemetry reviewed. Mrs. De Leon is a 71-year-old woman who presented to [facility] emergency department on 04/03/2022 with complaints of shortness of breath. Upon presentation she was found to be hypoxic with progression of multifocal pn eumonia on chest x-ray. proBNP was drawn and was unremarkable at 41. A 2D echocardiogram was also performed which showed normal function of her bioprosthetic aortic valve and no change. EKG and troponin were unremarkable. She notes that her shortness of breath improved after receiving nebulizer treatments and she was started on broad-spectrum antibiotics as well. Allergies Allergy/AdvReac Type Severity Reaction Status Date / Time dog dander Allergy Intermediate Sneezing Verified 03/20/19 08:57 egg Allergy SPECIFIC-DUCK Verified 03/20/19 08:57 EGG CAUSED FACIAL SWELLING pollen extracts Allergy HAYFEVER Verified 03/20/19 08:57 methylprednisolone AdvReac Unknown Verified 03/20/19 08:57 [From Depo-Medrol] Home Medications Medication Instructions Recorded Confirmed Type albuterol sulfate 90 mcg/actuation 2 puff inhalation QID PRN 01/02/18 04/03/22 History aerosol inhaler (Ventolin HFA) Shortness Of Breath Or Wheezing pantoprazole 40 mg tablet,delayed 40 mg PO BID 01/02/18 04/03/22 History release ranitidine HCl 300 mg capsule 150 mg PO BID 01/02/18 04/03/22 History ferrous sulfate 325 mg (65 mg 325 mg PO DAILY@12 #30 tabs 07/21/18 04/03/22 Rx iron) tablet magnesium oxide 400 mg (241.3 mg 400 mg PO BID #60 tabs 07/21/18 04/03/22 Rx magnesium) tablet metoprolol succinate 25 mg capsule 25 mg PO QAM 09/04/18 04/03/22 History sprinkle, ext. release 24 hr acetaminophen 500 mg tablet 500 mg PO Q6H PRN Pain 10/17/18 04/03/22 History (Tylenol Extra Strength) amiodarone 200 mg tablet 200 mg PO QAM 10/17/18 04/03/22 History ascorbic acid (vitamin C) 500 mg 250 mg PO DAILY@12 10/17/18 04/03/22 History tablet tramadol 50 mg tablet 50 mg PO Q6H PRN headache or 10/17/18 04/03/22 History arthritis pain aspirin 81 mg chewable tablet 81 mg PO DAILY 03/19/19 04/03/22 History fluticasone propionate 220 1 puff inhalation BID 03/19/19 04/03/22 History mcg/actuation HFA aerosol inhaler (Flovent HFA) clopidogrel 75 mg tablet 75 mg PO DAILY 04/03/22 04/03/22 History ipratropium 0.5 mg-albuterol 3 mg 3 ml inhalation Q6H PRN Shortness 04/03/22 04/03/22 History (2.5 mg base)/3 mL nebulization Of Breath Or Wheezing soln levothyroxine 25 mcg tablet 25 mcg PO DAILY 04/03/22 04/03/22 History nystatin 100,000 unit/gram topical 1 applic topical TID PRN Rash 04/03/22 04/03/22 History powder simvastatin 10 mg tablet 10 mg PO HS 04/03/22 04/03/22 History topiramate 25 mg tablet 25 mg PO BID 04/03/22 04/03/22 History cefuroxime axetil 500 mg tablet 500 mg PO BID #8 tabs 04/06/22 Rx doxycycline hyclate 100 mg capsule 100 mg PO BID #9 caps 04/06/22 Rx furosemide 20 mg tablet 40 mg PO QAM #30 tabs 04/06/22 04/03/22 Rx Patient History Medical History Aortic stenosis Atrial fibrillation Cardiac murmur CHF (congestive heart failure) COPD (chronic obstructive pulmonary disease) Dyslipidemia GERD (gastroesophageal reflux disease) Kidney stones Migraine Osteoarthritis SOB (shortness of breath) on exertion Stomach ulcer HX Tobacco abuse quit 3 months ago Surgical History History of colonoscopy History of cystoscopy History of esophagogastroduodenoscopy (EGD) Hx of cholecystectomy Family History Father Family history of diabetes mellitus Social History Smoking Status: Former smoker Cigarettes Per Day: QUIT 2 MONTHS AGO; Second Hand Exposure: No; Hx Alcohol Use: No Hx Substance Use: No Preferred Language: Filipino Communication Ability: Effective Theatrical Trouper Required: No Beliefs That Will Affect Care: None Current Living Situation: Family Current Living Situation Comment: lives with sister and [id number] Feels Safe at Home: Yes Safety Concerns: Feels Safe At This Time Assistive Devices: Walker Review of Systems Review of Systems: All systems reviewed & are unremarkable except as noted in HPI & below Physical Exam Physical Exam: General: Awake, alert and oriented x 3. No acute distress. HEENT: Normocephalic, atraumatic. Pupils equal, round and reactive to light and accommodation. Extraocular muscles are intact. Anicteric sclera. Moist mucous membranes. Neck: No JVD. No bruit. Cardiovascular: Regular. Positive S-4. Normal S-1 and S-2. No S-3. 3/6 mid to late systolic ejection murmur, greatest at the right sternal border, second intercostal space with radiation to the bilateral carotids. No rubs. Pulmonary: Clear to auscultation bilaterally. No rales, rhonchi, or wheezing. Abdomen: Bowel sounds x 4, soft. No rebound, guarding or tenderness. No organomegaly. Extremities: No clubbing, cyanosis or edema. +2 pedal pulses bilaterally. Skin: Warm and dry. Results & Data ([facility]) Vital Signs (Past 12 Hours) Vital Signs Temp Pulse Pulse Resp BP Pulse Ox O2 Del Method 04/04/22 11:57 78 18 90 Room Air 04/04/22 08:00 76 04/04/22 08:00 Room Air 04/04/22 10:52 36.5 C 83 19 130/66 91 Room Air 04/04/22 08:11 74 16 93 Nasal Cannula 04/04/22 07:52 36.5 C 73 20 123/64 93 Nasal Cannula 04/04/22 04:15 36.7 C 76 18 108/54 L 92 Nasal Cannula 04/04/22 01:06 78 O2 Flow Rate 04/04/22 11:57 04/04/22 08:00 04/04/22 08:00 04/04/22 10:52 04/04/22 08:11 2 04/04/22 07:52 2 04/04/22 04:15 2 04/04/22 01:06
[2022-04-04] MEDS: FERROUS SULFATE 325 MG TAB PO SCH (13:29)
[2022-04-04] MEDS ORDERED: ALBUT/IPRATROP 3MG/0.5MG NEB 3 ML VIAL NEB PRN (14:37)
--- NOTE | 2022-04-04 15:34 | Communication Note ---
Date of Service: April 04, 2022 Discussed with Pari JACOBS/Panda for Celia Marshall ([phone]) over the phone in detail. Understands and agrees with current plan.
[2022-04-04 16:50] LABS: Adenovirus PCR Not Detected (NotDetected); Bordetella parapertussis PCR Not Detected (NotDetected); Bordetella pertussis PCR Not Detected (NotDetected); Chlamydia pneumoniae PCR Not Detected (NotDetected); Coronavirus 229E PCR Not Detected (NotDetected); Coronavirus CoV-2 (COVID19)PCR Not Detected (NotDetected); Coronavirus HKU1 PCR Not Detected (NotDetected); Coronavirus NL63 PCR Not Detected (NotDetected); Coronavirus OC43PCR Not Detected (NotDetected); Human Metapneumovirus PCR Not Detected (NotDetected); Influenza A PCR Not Detected (NotDetected); Influenza B PCR Not Detected (NotDetected); Mycoplasma pneumoniae PCR Not Detected (NotDetected); Parainfluenza Virus 1 PCR Not Detected (NotDetected); Parainfluenza Virus 2 PCR Not Detected (NotDetected); Parainfluenza Virus 3 PCR Not Detected (NotDetected); Parainfluenza Virus 4 PCR Not Detected (NotDetected); Respiratory Syncytial VirusPCR Not Detected (NotDetected); Rhinovirus/Enterovirus PCR Not Detected (NotDetected)
[2022-04-04] MEDS: SIMVASTATIN 10 MG TAB PO SCH (19:49)
[2022-04-04] MEDS: HEPARIN SOD 5,000 UNIT/0.5 ML VIAL SQ SCH (21:37)
[2022-04-05] MEDS: HEPARIN SOD 5,000 UNIT/0.5 ML VIAL SQ SCH ×3 (05:29→20:53)
[2022-04-05] MEDS: ACETAMINOPHEN 325 MG TAB PO PRN ×2 (05:31→20:53)
[2022-04-05 06:43] LABS: Hematocrit (blood only) 36.8 % (34.1-44.9); Hemoglobin 12.2 g/dl (12.0-16.0); Mean Corpuscular Hemoglobin 31.4 pg (25.0-34.0); Mean Corpuscular Hgb Conc 33.2 g/dL (32.0-36.0); Mean Corpuscular Volume 94.8 fL (80.0-100.0); Mean Platelet Volume 11.3 fL (9.4-12.3); Platelet Count 283 K/uL (130-400); RDW Standard Deviation 52.5 fL (36.4-46.3); Red Blood Count 3.88 M/uL (3.93-5.22)
[2022-04-05 07:14] LABS: BUN Creatinine Ratio 19.2 (10-20); Calcium 8.8 mg/dl (8.5-10.1); Creatinine Clr Calc Pharmacy 48.9 ml/min; Est GFR (Non-African American) 35.3 ml/min; Potassium 3.7 mmol/L (3.5-5.1)
[2022-04-05] MEDS: DOXYCYCLINE HYCLATE 100 MG CAP PO SCH ×2 (08:26→20:51)
[2022-04-05] MEDS: FAMOTIDINE 20 MG TAB PO SCH (08:26)
[2022-04-05] MEDS: LEVOTHYROXINE SODIUM 25 MCG TABLET PO SCH (08:26)
[2022-04-05] MEDS: METOPROLOL TARTRATE 25 MG TAB PO SCH (08:26)
[2022-04-05] MEDS: CLOPIDOGREL BISULFATE 75 MG TAB PO SCH (08:26)
[2022-04-05] MEDS: PANTOprazole 40 MG TAB PO SCH ×2 (08:26→20:52)
[2022-04-05] MEDS: MAGNESIUM OXIDE 400 MG TAB PO SCH ×2 (08:26→20:52)
[2022-04-05] MEDS: TOPIRAMATE 25 MG TAB PO SCH ×2 (08:27→20:53)
[2022-04-05] MEDS: cefTRIAXone SODIUM 2,000 MG in DEXTROSE 5% 50 ML IV SCH (08:27)
[2022-04-05] MEDS: AMIODARONE 200 MG TAB PO SCH (08:27)
[2022-04-05] MEDS: ASPIRIN 81 MG CHEW PO SCH (08:27)
[2022-04-05] MEDS: traMADol HCL 50 MG TABLET PO PRN ×2 (08:37→17:02)
[2022-04-05] MEDS: FLUTICASONE FUROATE 200MCG 14 PUFFS/INHALER INH SCH (09:23)
[2022-04-05] MEDS: FERROUS SULFATE 325 MG TAB PO SCH (11:13)
--- NOTE | 2022-04-05 14:49 | Hospitalist Progress Note ---
Date of Service April 05, 2022 Assessment & Plan (1) CHF (congestive heart failure): Plan: Acute CHF with with preserved EF Hypoxia due to above H/O TAVR -CXR showed: Cardiomegaly with mixed interstitial and alveolar opacities suspicious for an infectious or inflammatory pneumonitis such as viral pneumonia. Superimposed pulmonary edema could appear similarly. Small pleural effusions. -ECHO: Normal LV chamber size with mild concentric LVH. Hyperdynamic LV systolic function, EF greater than 70%. No segmental left ventricular wall motion abnormalities. Grade 1 diastolic dysfunction. Bioprosthetic aortic valve. Gradient is normal for this prosthetic aortic valve. No significant aortic regurgitation. -Hold PO diuretics -IV Lasix 40mg BID>>Transitioned to PO lasix Daily weight, I/Os, fluid restriction Low sodium diet Supplemental Oxygen PRN Monitor renal function/electrolytes Appreciate Cardiology Input Possible Multifocal Pneumonia-POA H/O COPD CXR: Slight progression of extensive multifocal bilateral airspace opacities. Multifocal pneumonia is favored over alveolar edema. Radiographic follow up to ensure resolution is recommended. COVID screen negative Biofire Negative Procalcitonin < 0.05 Continue Ceftriaxone, doxycycline Nebs as needed Transition to p.o. antibiotics upon discharge Acute Kidney Injury on CKD III Due to diuretics Cr 1.78>>1.46 Monitor renal function Avoid nephrotoxic agents as able GERD Continue PPI Paroxysmal atrial fibrillation S/P TAVR Currently not on anticoagulation Continue amiodarone, metoprolol Continue aspirin, Plavix Dyslipidemia on statin Chronic Migraine On topiramate Hypothyroidism Continue levothyroxine Morbid obesity BMI 54 DVT Px: Heparin SQ Code Status DNI/DNR Disposition PT/OT prior to discharge (2) Hypoxia: Admission and Anticipated Discharge Date Admission Date: April 03, 2022 Subjective Patient is seen and examined at bedside Offers no complaints Eager to get discharged Dyspnea resolved Denies any chest pain, dizziness, nausea, abdominal pain Review of Systems Review of Systems: All systems reviewed & are unremarkable except as noted in Subjective Physical Exam Physical Exam: Physical Exam: Vitals signs as noted above General Appearance:Morbidly Obese, no apparent distress Head: normocephalic, Atraumatic Eyes: normal inspection, EOMI Neck: supple, Trachea midline Respiratory/Chest: Decreased breath sounds, +Basal crackles, No accessory muscle use Cardiovascular: S1, S2, No audible murmur Abdomen/GI:Soft, Non tender, Bowel sounds present Extremities/Musculoskeletal:normal inspection, 1+ B/L LE edema Neurologic/Psych:AAOX3, grossly no focal neurological deficits Skin: normal color, warm Results & Data Results & Data ([facility]) Vital Signs (Past 12 Hours) Vital Signs Temp Pulse Resp BP BP Pulse Ox O2 Del Method 04/05/22 10:04 36.4 C L 89 17 99/55 L 92 Room Air 04/05/22 08:47 Room Air 04/05/22 07:18 36.5 C 77 18 106/61 90 Room Air 04/05/22 03:00 36.7 C 82 16 111/56 L 90 Room Air Laboratory Results Short CBC 04/05/22 Range/Units 06:24 WBC 10.10 (4.8-10.8) K/ul Hgb 12.2 (12.0-16.0) g/dl Hct 36.8 (34.1-44.9) % Plt Count 283 (130-400) K/uL [facility] 04/05/22 06:24 Sodium 135 L Potassium 3.7 Chloride 101 Carbon Dioxide 27 BUN 28 H Creatinine 1.46 H D Glucose 103 H Calcium 8.8 (1) CHF (congestive heart failure) Heart failure chronicity: acute on chronic Heart failure type: unspecified Qualified Code(s): I50.9 - Heart failure, unspecified
--- NOTE | 2022-04-05 15:18 | Cardiology Progress Note ---
Date of Service April 05, 2022 Assessment & Plan (1) Hypoxia: (2) SOB (shortness of breath): (3) Pedal edema: (4) Social handicap: (5) Tobacco abuse: (6) COPD (chronic obstructive pulmonary disease): (7) Aortic stenosis: Plan I believe that patient is suffering from acute copd exacerbation no signs of acute diastolic heart failure echo unremarkable with hyperdynamic LV systolic function and appropriately functioning bioprosthetic AVR LE edema secondary to chronic lung disease would change daily po lasix to 40mg daily no further cardiac testing or intervention necessary at this time Admission and Anticipated Discharge Date Admission Date: April 03, 2022 Subjective Pt seen and examined. Chart reviewed. Telemetry reviewed. Review of Systems Review of Systems: All systems reviewed & are unremarkable except as noted in HPI & below Physical Exam Physical Exam: General: Awake, alert and oriented x 3. No acute distress. HEENT: Normocephalic, atraumatic. Pupils equal, round and reactive to light and accommodation. Extraocular muscles are intact. Anicteric sclera. Moist mucous membranes. Neck: No JVD. No bruit. Cardiovascular: Regular. Positive S-4. Normal S-1 and S-2. No S-3. 3/6 mid to late systolic ejection murmur, greatest at the right sternal border, second intercostal space with radiation to the bilateral carotids. No rubs. Pulmonary: Clear to auscultation bilaterally. No rales, rhonchi, or wheezing. Abdomen: Bowel sounds x 4, soft. No rebound, guarding or tenderness. No organomegaly. Extremities: No clubbing, cyanosis or edema. +2 pedal pulses bilaterally. Skin: Warm and dry. Results & Data ([facility]) Vital Signs (Past 12 Hours) Vital Signs Temp Pulse Resp BP BP Pulse Ox O2 Del Method 04/05/22 10:04 36.4 C L 89 17 99/55 L 92 Room Air 04/05/22 08:47 Room Air 04/05/22 07:18 36.5 C 77 18 106/61 90 Room Air
[2022-04-05] MEDS: FUROSEMIDE 20 MG TAB PO SCH (15:34)
[2022-04-05] MEDS: SIMVASTATIN 10 MG TAB PO SCH (20:52)
[2022-04-06] MEDS: HEPARIN SOD 5,000 UNIT/0.5 ML VIAL SQ SCH (05:36)
[2022-04-06] MEDS: ACETAMINOPHEN 325 MG TAB PO PRN (05:50)
[2022-04-06 06:51] LABS: BUN Creatinine Ratio 20.9 (10-20); Calcium 8.9 mg/dl (8.5-10.1); Creatinine Clr Calc Pharmacy 48.1 ml/min; Est GFR (African American) 40.3 ml/min; Est GFR (Non-African American) 34.8 ml/min; Magnesium 2.3 mg/dl (1.7-2.4); Potassium 3.7 mmol/L (3.5-5.1)
[2022-04-06] MEDS: MAGNESIUM OXIDE 400 MG TAB PO SCH (08:51)
[2022-04-06] MEDS: PANTOprazole 40 MG TAB PO SCH (08:51)
[2022-04-06] MEDS: METOPROLOL TARTRATE 25 MG TAB PO SCH (08:52)
[2022-04-06] MEDS: AMIODARONE 200 MG TAB PO SCH (08:52)
[2022-04-06] MEDS: CLOPIDOGREL BISULFATE 75 MG TAB PO SCH (08:52)
[2022-04-06] MEDS: TOPIRAMATE 25 MG TAB PO SCH (08:52)
[2022-04-06] MEDS: LEVOTHYROXINE SODIUM 25 MCG TABLET PO SCH (08:52)
[2022-04-06] MEDS: DOXYCYCLINE HYCLATE 100 MG CAP PO SCH (08:52)
[2022-04-06] MEDS: FLUTICASONE FUROATE 200MCG 14 PUFFS/INHALER INH SCH (08:53)
[2022-04-06] MEDS: FAMOTIDINE 20 MG TAB PO SCH (08:53)
[2022-04-06] MEDS: ASPIRIN 81 MG CHEW PO SCH (08:53)
[2022-04-06] MEDS: FUROSEMIDE 20 MG TAB PO SCH (08:53)
[2022-04-06] MEDS: cefTRIAXone SODIUM 2,000 MG in DEXTROSE 5% 50 ML IV SCH (08:58)
--- NOTE | 2022-04-06 11:13 | Hospitalist Progress Note ---
Date of Service April 06, 2022 Assessment & Plan (1) CHF (congestive heart failure): Plan: Acute CHF with with preserved EF Hypoxia due to above H/O TAVR -CXR showed: Cardiomegaly with mixed interstitial and alveolar opacities suspicious for an infectious or inflammatory pneumonitis such as viral pneumonia. Superimposed pulmonary edema could appear similarly. Small pleural effusions. -ECHO: Normal LV chamber size with mild concentric LVH. Hyperdynamic LV systolic function, EF greater than 70%. No segmental left ventricular wall motion abnormalities. Grade 1 diastolic dysfunction. Bioprosthetic aortic valve. Gradient is normal for this prosthetic aortic valve. No significant aortic regurgitation. -Hold PO diuretics -IV Lasix 40mg BID>>Transitioned to PO lasix Daily weight, I/Os, fluid restriction Low sodium diet Supplemental Oxygen PRN Monitor renal function/electrolytes Appreciate Cardiology Input 2 step: Needs 3 L supplemental oxygen with activity Will increase Lasix to 40 mg daily upon discharge Possible Multifocal Pneumonia-POA H/O COPD CXR: Slight progression of extensive multifocal bilateral airspace opacities. Multifocal pneumonia is favored over alveolar edema. Radiographic follow up to ensure resolution is recommended. COVID screen negative Biofire Negative Procalcitonin < 0.05 Continue Ceftriaxone, doxycycline Nebs as needed Transition to p.o. antibiotics upon discharge Acute Kidney Injury on CKD III Due to diuretics Cr 1.78>>1.4 Monitor renal function Avoid nephrotoxic agents as able Advised to get BMP in 1 week and follow-up with PCP upon discharge GERD Continue PPI Paroxysmal atrial fibrillation S/P TAVR Currently not on anticoagulation Continue amiodarone, metoprolol Continue aspirin, Plavix Dyslipidemia on statin Chronic Migraine On topiramate Hypothyroidism Continue levothyroxine Morbid obesity BMI 54 DVT Px: Heparin SQ Code Status DNI/DNR Disposition Patient refuses rehab placement Ok with HH if offered (2) Hypoxia: Admission and Anticipated Discharge Date Admission Date: April 03, 2022 Subjective Patient is seen and examined at bedside Eager to get discharged Reports minimal cough with expectoration Denies any chest pain, dizziness, nausea, abdominal pain Discussed with family at bedside Had 2 step earlier today Review of Systems Review of Systems: All systems reviewed & are unremarkable except as noted in Subjective Physical Exam Physical Exam: Physical Exam: Vitals signs as noted above General Appearance:Morbidly Obese, no apparent distress Head: normocephalic, Atraumatic Eyes: normal inspection, EOMI Neck: supple, Trachea midline Respiratory/Chest: Decreased breath sounds, CTA, No accessory muscle use Cardiovascular: S1, S2, No audible murmur Abdomen/GI:Soft, Non tender, Bowel sounds present Extremities/Musculoskeletal:normal inspection, 1+ B/L LE edema Neurologic/Psych:AAOX3, grossly no focal neurological deficits Skin: normal color, warm Results & Data Results & Data ([facility]) Vital Signs (Past 12 Hours) Vital Signs Temp Pulse Pulse Pulse Pulse Pulse Pulse 04/06/22 10:19 77 04/06/22 09:39 04/06/22 07:59 105 H 97 H 113 H 88 04/06/22 08:03 36.4 C L 84 04/06/22 02:52 36.7 C 84 04/06/22 00:24 04/05/22 23:44 82 Pulse Resp Resp Resp Resp Resp Resp 04/06/22 10:19 04/06/22 09:39 04/06/22 07:59 86 22 20 24 18 18 04/06/22 08:03 17 04/06/22 02:52 18 04/06/22 00:24 04/05/22 23:44 BP BP Pulse Ox Pulse Ox Pulse Ox Pulse Ox Pulse Ox 04/06/22 10:19 04/06/22 09:39 04/06/22 07:59 87 L 90 84 L 91 04/06/22 08:03 121/57 L 93 04/06/22 02:52 116/60 92 04/06/22 00:24 04/05/22 23:44 Pulse Ox O2 Del Method O2 Flow Rate O2 Flow Rate O2 Flow Rate 04/06/22 10:19 04/06/22 09:39 Room Air, Nasal Cannula 04/06/22 07:59 92 2 3 04/06/22 08:03 Nasal Cannula 04/06/22 02:52 Nasal Cannula 2 04/06/22 00:24 Nasal Cannula 2 04/05/22 23:44 Laboratory Results [facility] 04/06/22 05:41 Sodium 136 Potassium 3.7 Chloride 102 Carbon Dioxide 26 BUN 31 H Creatinine 1.48 H Glucose 104 H Calcium 8.9 (1) CHF (congestive heart failure) Heart failure chronicity: acute on chronic Heart failure type: unspecified Qualified Code(s): I50.9 - Heart failure, unspecified
--- NOTE | 2022-04-06 11:30 | Discharge Summary ---
Date of Service April 06, 2022 Admission HPI Per Admitting Provider Patient is a 71-year-old female with history of COPD, morbid obesity, GERD, CHF, paroxysmal atrial fibrillation, dyslipidemia, s/p TAVR, CKD stage III and other medical problems presents with history of worsening shortness. Patient states her symptoms started about 1 week ago including shortness of breath has been gradually worsening. EMS noted her oxygen saturations to be 88% on room air and placed on 6 L supplemental oxygen to maintain saturations. She also states having cough with yellowish expectoration associated with chills since 1 week duration. Reports chronic orthopnea. She believes that she gained weight recently but was unsure by how much. Also reports having chronic leg swelling which she believes to be unchanged. She admits to taking medications regularly. She states having chronic headache for which she takes topiramate. Denies any history of chest pain, palpitations, dizziness, wheezing, fever, head trauma, change in vision, nausea, vomiting, abdominal pain, diarrhea, dysuria, hematuria, sick contact. Admission Exam Per Admitting Provider Physical Exam Physical Exam: Physical Exam: Vitals signs as noted above General Appearance:Morbidly Obese, no apparent distress Head: normocephalic, Atraumatic Eyes: normal inspection, EOMI Neck: supple, Trachea midline Respiratory/Chest: Decreased breath sounds, +Basal crackles, No accessory muscle use Cardiovascular: S1, S2, No audible murmur Abdomen/GI:Soft, Non tender, Bowel sounds present Extremities/Musculoskeletal:normal inspection, 1+ B/L LE edema Neurologic/Psych:AAOX3, grossly no focal neurological deficits Skin: normal color, warm Principal Diagnosis Acute congestive heart failure Pneumonia Hypoxia Acute kidney injury Discharge Data Allergies Allergy/AdvReac Type Severity Reaction Status Date / Time dog dander Allergy Intermediate Sneezing Verified 03/20/19 08:57 egg Allergy SPECIFIC-DUCK Verified 03/20/19 08:57 EGG CAUSED FACIAL SWELLING pollen extracts Allergy HAYFEVER Verified 03/20/19 08:57 methylprednisolone AdvReac Unknown Verified 03/20/19 08:57 [From Depo-Medrol] Consultations 04/03/22 09:58 ED Decision to Admit Stat 04/03/22 12:35 Consult Cardiology Routine Procedures Performed Laboratory Results WBC 10.10 K/ul (4.8-10.8) 04/05/22 06:24 RBC 3.88 M/uL (3.93-5.22) L 04/05/22 06:24 Hgb 12.2 g/dl (12.0-16.0) 04/05/22 06:24 Hct 36.8 % (34.1-44.9) 04/05/22 06:24 MCV 94.8 fL (80.0-100.0) 04/05/22 06:24 MCH 31.4 pg (25.0-34.0) 04/05/22 06:24 MCHC 33.2 g/dL (32.0-36.0) 04/05/22 06:24 RDW Std Deviation 52.5 fL (36.4-46.3) H 04/05/22 06:24 RDW Coeff of Moni 15.0 % (11.5-14.5) H 04/05/22 06:24 Plt Count 283 K/uL (130-400) 04/05/22 06:24 MPV 11.3 fL (9.4-12.3) 04/05/22 06:24 Immature Gran % (Auto) 0.3 % 04/03/22 08:30 Neut % (Auto) 65.3 % 04/03/22 08:30 Lymph % (Auto) 18.3 % 04/03/22 08:30 [place] % (Auto) 11.1 % 04/03/22 08:30 Eos % (Auto) 4.6 % 04/03/22 08:30 Baso % (Auto) 0.4 % 04/03/22 08:30 Neut # (Auto) 6.48 K/uL (1.4-6.5) 04/03/22 08:30 Lymph # (Auto) 1.82 K/uL (1.2-3.4) 04/03/22 08:30 [place] # (Auto) 1.10 K/uL (0.24-0.82) H 04/03/22 08:30 Eos # (Auto) 0.46 K/uL (0-0.50) 04/03/22 08:30 Baso # (Auto) 0.04 K/uL (0-0.2) 04/03/22 08:30 Immature Gran # (Auto) 0.03 K/uL (0.00-0.02) H 04/03/22 08:30 PT 10.3 Seconds (9.0-12.0) 04/03/22 08:30 INR 1.0 (0.9-1.1) 04/03/22 08:30 APTT 28.8 Seconds (21.0-31.0) 04/03/22 08:30 PTT Ratio 1.0 04/03/22 08:30 Sodium 136 mmol/L (136-145) 04/06/22 05:41 Potassium 3.7 mmol/L (3.5-5.1) 04/06/22 05:41 Chloride 102 mmol/L (98-107) 04/06/22 05:41 Carbon Dioxide 26 mmol/L (21-32) 04/06/22 05:41 Anion Gap 8 (3-11) 04/06/22 05:41 BUN 31 mg/dl (6-23) H 04/06/22 05:41 Creatinine 1.48 mg/dl (0.6-1.2) H 04/06/22 05:41 Est Cr Clr Drug Dosing 48.1 ml/min 04/06/22 05:41 Est GFR ( Amer) 40.3 ml/min 04/06/22 05:41 Est GFR (Non-Af Amer) 34.8 ml/min 04/06/22 05:41 BUN/Creatinine Ratio 20.9 (10-20) H 04/06/22 05:41 Glucose 104 mg/dl (70-99(Fasting)) H 04/06/22 05:41 Calcium 8.9 mg/dl (8.5-10.1) 04/06/22 05:41 Magnesium 2.3 mg/dl (1.7-2.4) 04/06/22 05:41 Total Bilirubin 0.5 mg/dl (0.2-1.0) 04/03/22 08:30 AST 16 U/L (13-39) 04/03/22 08:30 ALT 10 U/L (7-52) 04/03/22 08:30 Alkaline Phosphatase 113 U/L (34-104) H 04/03/22 08:30 Troponin I High Sens 7.6 pg/ml (0-14) 04/03/22 08:30 B-Natriuretic Peptide 41 pg/ml (0-100) 04/03/22 08:30 Total Protein 7.7 gm/dl (6.0-8.3) 04/03/22 08:30 Albumin 3.7 gm/dl (3.4-5.0) 04/03/22 08:30 Globulin 4.0 gm/dl (2.5-4.0) 04/03/22 08:30 Albumin/Globulin Ratio 0.9 (0.9-2) 04/03/22 08:30 Procalcitonin 0.06 ng/ml (0-0.5) 04/06/22 05:41 Urine Color Yellow 04/03/22 08:50 Urine Appearance Clear (Clear) 04/03/22 08:50 Urine pH 7.0 (4.5-7.5) 04/03/22 08:50 Ur Specific [place] 1.011 (1.000-1.030) 04/03/22 08:50 Urine Protein Negative (Negative) 04/03/22 08:50 Urine Glucose (UA) Negative (Negative) 04/03/22 08:50 Urine Ketones Negative (Negative) 04/03/22 08:50 Urine Blood Negative (Negative) 04/03/22 08:50 Urine Nitrite Negative (Negative) 04/03/22 08:50 Urine Bilirubin Negative (Negative) 04/03/22 08:50 Urine Urobilinogen Negative (Negative) 04/03/22 08:50 Ur Leukocyte Esterase Trace (Negative) H 04/03/22 08:50 Urine WBC (Auto) 1-5 /hpf (0-5) 04/03/22 08:50 Urine RBC (Auto) 0-4 /hpf (0-4) 04/03/22 08:50 U Hyaline Cast (Auto) 0 /lpf (0-5) 04/03/22 08:50 U Epithel Cells (Auto) 10-20 /lpf (0-5) H 04/03/22 08:50 Urine Bacteria (Auto) Negative (Negative) 04/03/22 08:50 Adenovirus (PCR) Not Detected (NotDetected) 04/04/22 14:50 B. pertussis DNA (PCR) Not Detected (NotDetected) 04/04/22 14:50 B.parapertussis DNA PCR Not Detected (NotDetected) 04/04/22 14:50 C. pneumoniae DNA (PCR) Not Detected (NotDetected) 04/04/22 14:50 Coronavirus OC43 (PCR) Not Detected (NotDetected) 04/04/22 14:50 Coronavirus HKU1 (PCR) Not Detected (NotDetected) 04/04/22 14:50 Coronavirus 229E (PCR) Not Detected (NotDetected) 04/04/22 14:50 SARS-CoV-2 (PCR) Not Detected (NotDetected) 04/04/22 14:50 Coronavirus NL63 (PCR) Not Detected (NotDetected) 04/04/22 14:50 Human Metapneumovir PCR Not Detected (NotDetected) 04/04/22 14:50 Influenza Type A (PCR) Not Detected (NotDetected) 04/04/22 14:50 Influenza Type B (PCR) Not Detected (NotDetected) 04/04/22 14:50 M. pneumoniae (PCR) Not Detected (NotDetected) 04/04/22 14:50 Parainfluenza 1 (PCR) Not Detected (NotDetected) 04/04/22 14:50 Parainfluenza 2 (PCR) Not Detected (NotDetected) 04/04/22 14:50 Parainfluenza 3 (PCR) Not Detected (NotDetected) 04/04/22 14:50 Parainfluenza 4 (PCR) Not Detected (NotDetected) 04/04/22 14:50 RSV (PCR) Not Detected (NotDetected) 04/04/22 14:50 Entero/Rhino (PCR) Not Detected (NotDetected) 04/04/22 14:50 SARS-CoV-2, RNA, NAAT NEGATIVE (NEGATIVE) 04/03/22 10:05 Impressions Chest X-Ray 04/04/22 07:00 XR chest 1V portable CLINICAL HISTORY: Congestive heart failure. COMPARISON STUDY: Chest CT July 16, 2018 and chest radiograph April 03, 2022. FINDINGS: Lung volumes are diminished. This is unchanged. There are suspected small bilateral pleural effusions. No pneumothorax. Cardiomediastinal silhouette is stable. Prosthetic cardiac valve. Multifocal nodular bilateral airspace opacities have slightly progressed. IMPRESSION: Slight progression of extensive multifocal bilateral airspace opacities. Multifocal pneumonia is favored over alveolar edema. Radiographic follow up to ensure resolution is recommended. ACT 112: Negative or not required by law. Electronically signed by: Shawn Juarez M.D. 04/04/2022 8:31 AM Hospital Course (1) CHF (congestive heart failure): Acute CHF with with preserved EF Hypoxia due to above H/O TAVR -CXR showed: Cardiomegaly with mixed interstitial and alveolar opacities suspicious for an infectious or inflammatory pneumonitis such as viral pneumonia. Superimposed pulmonary edema could appear similarly. Small pleural effusions. -ECHO: Normal LV chamber size with mild concentric LVH. Hyperdynamic LV systolic function, EF greater than 70%. No segmental left ventricular wall motion abnormalities. Grade 1 diastolic dysfunction. Bioprosthetic aortic valve. Gradient is normal for this prosthetic aortic valve. No significant aortic regurgitation. -Hold PO diuretics -IV Lasix 40mg BID>>Transitioned to PO lasix Daily weight, I/Os, fluid restriction Low sodium diet Supplemental Oxygen PRN Monitor renal function/electrolytes Appreciate Cardiology Input 2 step: Needs 3 L supplemental oxygen with activity Will increase Lasix to 40 mg daily upon discharge Possible Multifocal Pneumonia-POA H/O COPD CXR: Slight progression of extensive multifocal bilateral airspace opacities. Multifocal pneumonia is favored over alveolar edema. Radiographic follow up to ensure resolution is recommended. COVID screen negative [employer] Negative Procalcitonin < 0.05 Continue Ceftriaxone, doxycycline Nebs as needed Transition to p.o. antibiotics upon discharge Acute Kidney Injury on CKD III Due to diuretics Cr 1.78>>1.4 Monitor renal function Avoid nephrotoxic agents as able Advised to get BMP in 1 week and follow-up with PCP upon discharge GERD Continue PPI Paroxysmal atrial fibrillation S/P TAVR Currently not on anticoagulation Continue amiodarone, metoprolol Continue aspirin, Plavix Dyslipidemia on statin Chronic Migraine On topiramate Hypothyroidism Continue levothyroxine Morbid obesity BMI 54 DVT Px: Heparin SQ Code Status DNI/DNR Disposition Patient refuses rehab placement Ok with HH if offered (2) Hypoxia: Total Time Total Time Spent Total Time Spent (In Minutes): 52 minutes Discharge Plan Discharge Items Patient Disposition: Home - Home Health Services Reason For Visit: CHF Discharge Diagnosis: Acute congestive heart failure Pneumonia Hypoxia Acute kidney injury Condition on Discharge: Fair Activity: Per Instructions section Exercise/Sports: Gradually increase as tolerated Non-emergency contact: Primary Care Provider and Smt Machine Operator Call non-emergency contact if: you have any medication questions, your symptoms worsen, your pain is concerning for you and you have a fever Follow-up/Referrals: Chana Stacy PA-C [Primary Care Provider] - (Date & Time 04/15/2022 2:00 PM Provider Chana Stacy PA-C [facility] Please note that this is a video appointment. Please follow the instructions provided in your email. ) Diet: Heart Healthy Addtl Attending Provider Instructions: Follow-up with your primary care physician Chana Stacy PA-C in 1 week as advised Follow-up with your pockets and pieces necktie operator in 3 to 4 weeks as advised --Get Blood test (basic metabolic panel) in 1 week and follow-up with a physician with results. --Get chest x-ray in 2-3 weeks to monitor resolution of pneumonia. Medication changes: --- Complete antibiotic course cefuroxime, doxycycline as prescribed. --Start taking furosemide 40 mg daily as recommended by your pockets and pieces necktie operator. --- Use oxygen 3 L via nasal cannula with activity as advised. Seek immediate medical attention if your symptoms reoccur or worsen Please take all medications as instructed on discharge list below. Please call if you have any questions or problems. You can reach a [facility] hospitalist on duty at [facility] 24 hours a day by calling [phone] Pending Studies at Discharge: No Stand-Alone Forms: My [facility], Smoking Cessation Medications and DC Order Prescriptions: New doxycycline hyclate 100 mg Capsule 100 mg PO BID Qty: 9 0RF cefuroxime axetil 500 mg tablet 500 mg PO BID Qty: 8 0RF Rx Instructions: Start taking from 04/07/22 Continued pantoprazole 40 mg Tablet,Delayed Release (Dr/Ec) 40 mg PO BID ranitidine HCl 300 mg Capsule 150 mg PO BID albuterol sulfate [Ventolin HFA] 90 mcg/actuation Hfa Aerosol Inhaler 2 puff INHALATION QID PRN (Reason: Shortness Of Breath Or Wheezing) Label Comments: Patient states "haven't taken this for months". metoprolol succinate 25 mg Capsule,Sprinkle,Er 24hr 25 mg PO QAM aspirin 81 mg Tablet,Chewable 81 mg PO DAILY fluticasone propionate [Flovent HFA] 220 mcg/actuation Hfa Aerosol Inhaler 1 puff INHALATION BID magnesium oxide 400 mg (241.3 mg magnesium) Tablet 400 mg PO BID Qty: 60 5RF ferrous sulfate 325 mg (65 mg iron) tablet 325 mg PO DAILY@12 Qty: 30 5RF Rx Instructions: Take with lunch + ascorbic acid. amiodarone 200 mg tablet 200 mg PO QAM tramadol 50 mg tablet 50 mg PO Q6H PRN (Reason: headache or arthritis pain) ascorbic acid (vitamin C) 500 mg tablet 250 mg PO DAILY@12 Rx Instructions: Take with ferrous sulfate. acetaminophen [Tylenol Extra Strength] 500 mg Tablet 500 mg PO Q6H PRN (Reason: Pain) ipratropium-albuterol 0.5 mg-3 mg(2.5 mg base)/3 mL solution for nebulization 3 ml INHALATION Q6H PRN (Reason: Shortness Of Breath Or Wheezing) simvastatin 10 mg tablet 10 mg PO HS topiramate 25 mg tablet 25 mg PO BID clopidogrel 75 mg tablet 75 mg PO DAILY levothyroxine 25 mcg tablet 25 mcg PO DAILY nystatin 100,000 unit/gram powder 1 applic topical TID PRN (Reason: Rash) Changed furosemide 20 mg Tablet 40 mg PO QAM Qty: 30 5RF Discharge Orders: Discharge Order (Routine); Ordered 04/06/22 Ordered By: Berny Tay Admission Data Admit Date/Time: 04/03/22 11:02 Attending Provider: Berny Tay Admit Provider: Berny Tay Primary Care Provider: Chana Stacy Other Providers: Berny Tay ; Arron Patrick
[2022-04-06] MEDS: FERROUS SULFATE 325 MG TAB PO SCH (11:47)
== END 2022-04-06 12:53 | disposition home or self-care (01) | DRG 291 ==
LOC: ED 08:21 → INTOOBSV 11:02 → 2E 11:02

== ENCOUNTER 2022-06-06 11:22 | Observation (INO) ==
[2022-06-06 12:18] LABS: Basophils # (auto) 0.04 K/uL (0-0.2); Basophils % (auto) 0.5 %; Eosinophils % (auto) 2.3 %; Hematocrit (blood only) 43.1 % (37.0-47.0); Hemoglobin 13.9 g/dl (12.0-16.0); Immature Granulocytes # (auto) 0.02 K/uL (0.01-0.20); Immature Granulocytes % (auto) 0.2 %; Lymphocytes # (auto) 1.27 K/uL (1.2-3.4); Lymphocytes % (auto) 14.5 %; Mean Corpuscular Hemoglobin 31.5 pg (25.0-34.0); Mean Corpuscular Hgb Conc 32.3 g/dL (32.0-36.0); Mean Corpuscular Volume 97.7 fL (80.0-100.0); Mean Platelet Volume 11.4 fL (9.4-12.4); Monocytes # (auto) 0.61 K/uL (0.11-0.59); Neutrophils # (auto) 6.62 K/uL (1.40-6.50); Neutrophils % (auto) 75.5 %; Platelet Count 212 K/uL (130-400); RDW Coefficient of Variation 16.8 % (11.5-14.5); RDW Standard Deviation 60.4 fL (36.4-46.3); Red Blood Count 4.41 M/uL (4.20-5.40); White Blood Count 8.76 K/ul (4.8-10.8)
[2022-06-06 12:29] LABS: Alanine Aminotransferase 14 U/L (7-52); Albumin Globulin Ratio 0.8 (0.9-2); Alkaline Phosphatase 114 U/L (34-104); Anion Gap 7 (3-11); Aspartate Aminotransferase 21 U/L (13-39); BUN Creatinine Ratio 16.4 (10-20); Bilirubin,Total 0.6 mg/dl (0.2-1.0); Blood Urea Nitrogen 24 mg/dl (6-23); Carbon Dioxide 28 mmol/L (21-32); Chloride 105 mmol/L (98-107); Est GFR (Non-African American) 35.3 ml/min; Glucose 118 mg/dl (70-99(Fasting)); Potassium 3.6 mmol/L (3.5-5.1); Sodium 140 mmol/L (136-145)
--- NOTE | 2022-06-06 13:59 | Emergency Department Note ---
Impression & Plan Failure of outpatient treatment, CHF (congestive heart failure), Candidiasis, intertriginous, Ambulatory dysfunction ED Provider Note NAME: IDRIS YOUNG AGE: 71 SEX: F ARRIVES VIA: Walk-In INFORMANT: Patient ED PROVIDER(S): Pilo Narayan MD CHIEF COMPLAINT: Sacral rash, open wound, placement, referred. PLAN: Disposition: Admit MEDICAL DECISION MAKING: The patient is a pleasant 71-year-old woman with a past medical history of CKD, CHF, PUD, COPD on home oxygen, GERD, hypertension, hyperlipidemia, history of candidiasis intertriginous underneath her breast and in her inguinal/sacral/perineal region, paroxysmal atrial fibrillation who presents to the emergency department via walk-in accompanied by her sister, referred from her PCPs office for evaluation of worsening perineal/sacral rash where the patient had reported worsening pain in bleeding. The patient reports that her rash was not examined today. She reports she has a home visiting nurse who also does not examine this area. She reports she has a cream that is being placed regularly but does not feel it is working. She denies any fevers, chills, cough, congestion, GI or symptoms. Review of the patient's [facility] records from her visit today describes concern from family that the patient is unable to care for herself where she has decreased injury and desire to get out of bed. There is a suggestion of depression and need for possible placement. On arrival the patient is no acute distress, afebrile with stable vital signs. Examination of the patient's and sacral region was unremarkable with evidence of recent yeast dermatitis that had been previously described in March but without any acute worsening, redness/warmth, crepitus or fluctuance. There are 2 punctate, scabs without underlying fluctuance and no evidence of discharge. With no identifiable open wounds. WBC, H/H and platelets within normal limits. Chemistry without metabolic acidosis. Creatinine 1.46, similar to prior range values in setting of CKD. LFTs without significant abnormality. CT of the abdomen pelvis was performed and was negative for acute intra- abdominal process. Note is made of suspicion for possible evolving lung disease compared to 2019 in the setting of h/o COPD which could be evaluated on outpatient basis as patient has no new respiratory symptoms. COVID-19 RNA, TIM test negative. Appreciate case management assistance who met with the patient and family and upon further discussion with family continue to express concern of her inability to care for self at home even with home health and so the patient is agreeable with plan for admission for placement. Case was discussed with Dr. Carter, [facility] hospitalist, who will evaluate the patient for admission. Triage Nursing notes reviewed and agree them. Prior/outside medical records reviewed Vital Signs: reviewed Differential diagnosis: Cellulitis, abscess, MRSA infection, DVT, necrotizing fasciitis, dermatitis, drug eruption, allergic reaction, as well as other pathologies. ER treatment provided: See below. Diagnostics interpreted by me: Cardiac Monitoring: An order for continuous cardiac monitoring was placed and demonstrated normal sinus rhythm, 69 bpm, no ectopy. Laboratory studies: See below Imaging studies: See below Consultation(s): Case was discussed with Dr. Carter, [facility] hospitalist, who will evaluate the patient for admission. HPI: The patient is a pleasant 71-year-old woman with a past medical history of CKD, CHF, PUD, COPD on home oxygen, GERD, hypertension, hyperlipidemia, history of candidiasis intertriginous underneath her breast and in her inguinal/sacral/perineal region, paroxysmal atrial fibrillation who presents to the emergency department via walk-in accompanied by her sister, referred from her PCPs office for evaluation of worsening perineal/sacral rash where the patient had reported worsening pain in bleeding. The patient reports that her rash was not examined today. She reports she has a home visiting nurse who also does not examine this area. She reports she has a cream that is being placed r egularly but does not feel it is working. She denies any fevers, chills, cough, congestion, GI or symptoms. Review of the patient's [facility] records from her visit today describes concern from family that the patient is unable to care for herself where she has decreased injury and desire to get out of bed. There is a suggestion of depression and need for possible placement. ROS: See above HPI for pertinent positives & negatives. A total of 10 systems reviewed and were otherwise negative. VITALS:See Below PHYSICAL EXAMINATION: GENERAL: Awake, alert, well-appearing, in no distress, BMI 46.6. HENT: Normocephalic, atraumatic. Oropharynx unremarkable. EYES: Normal conjunctiva. Sclera non-icteric. NECK: Supple. No nuchal rigidity. FROM. No JVD. RESPIRATORY: Clear to auscultation. CARDIAC: Regular rate, normal rhythm. Extremities warm and well perfused. Pulses equal. ABDOMEN: Soft, non-distended. No tenderness to palpation. No rebound or guarding. No masses. RECTAL: Deferred. MUSCULOSKELETAL: Chest examination reveals no tenderness. The back is symmetrical on inspection without obvious abnormality. There is no CVA tenderness to palpation. No joint edema. LOWER EXTREMITIES: Calves are equal size bilaterally and non-tender. 2+ BLE edema. No discoloration. NEURO: Normal sensorium. No sensory or motor deficits noted. SKIN: and sacral region was unremarkable with evidence of recent yeast dermatitis that had been previously described in March but without any acute worsening, redness/warmth, crepitus or fluctuance. There are 2 punctate, scabs without underlying fluctuance and no evidence of discharge. With no identifiable open wounds. No jaundice noted. Pilo Narayan MD Past Med/Surg History Medical History Aortic stenosis Atrial fibrillation Cardiac murmur CHF (congestive heart failure) CKD (chronic kidney disease), stage III COPD (chronic obstructive pulmonary disease) Dyslipidemia GERD (gastroesophageal reflux disease) History of migraine Kidney stones Migraine Obesity Osteoarthritis Paroxysmal atrial fibrillation SOB (shortness of breath) on exertion Stomach ulcer HX Tobacco abuse quit 3 months ago Surgical History History of colonoscopy History of cystoscopy History of esophagogastroduodenoscopy (EGD) Hx of cholecystectomy Family History Father Family history of diabetes mellitus Social History Smoking Status: Former smoker Tobacco Type: Cigarettes Cigarettes Per Day: QUIT 2 MONTHS AGO; Second Hand Exposure: No; Do You Dip or Chew Tobacco: No; Tobacco Cessation Education Requested by Patient: No Hx Alcohol Use: No Hx Substance Use: No Preferred Language: Fijian Communication Ability: Effective Legal Secretary Required: No Beliefs That Will Affect Care: None Current Living Situation: Family Current Living Situation Comment: lives in a trailer with sister Other Information That Helps Us Care for You: No Feels Safe at Home: Yes Safety Concerns: Feels Safe At This Time Assistive Devices: Denture - Upper, Denture - Lower and Walker Allergies Allergies Allergy/AdvReac Type Severity Reaction Status Date / Time dog dander Allergy Intermediate Sneezing Verified 03/20/19 08:57 egg Allergy SPECIFIC-DUCK Verified 03/20/19 08:57 EGG CAUSED FACIAL SWELLING pollen extracts Allergy HAYFEVER Verified 03/20/19 08:57 methylprednisolone AdvReac Unknown Verified 03/20/19 08:57 [facility] Home Meds Home Medications Medication Instructions Recorded Confirmed albuterol sulfate 90 mcg/actuation 2 puff inhalation QID PRN 01/02/18 06/06/22 aerosol inhaler (Ventolin HFA) Shortness Of Breath Or Wheezing pantoprazole 40 mg tablet,delayed 40 mg PO BID 01/02/18 06/06/22 release metoprolol succinate 25 mg capsule 25 mg PO QAM 09/04/18 06/06/22 sprinkle, ext. release 24 hr acetaminophen 500 mg tablet 500 mg PO Q6H PRN Pain 10/17/18 06/06/22 (Tylenol Extra Strength) amiodarone 200 mg tablet 200 mg PO QAM 10/17/18 06/06/22 ascorbic acid (vitamin C) 500 mg 250 mg PO DAILY@12 10/17/18 06/06/22 tablet tramadol 50 mg tablet 50 mg PO HS PRN headache or 10/17/18 06/06/22 arthritis pain aspirin 81 mg chewable tablet 81 mg PO DAILY 03/19/19 06/06/22 fluticasone propionate 220 1 puff inhalation BID 03/19/19 06/06/22 mcg/actuation HFA aerosol inhaler (Flovent HFA) clopidogrel 75 mg tablet 75 mg PO DAILY 04/03/22 06/06/22 ipratropium 0.5 mg-albuterol 3 mg 3 ml inhalation Q6H PRN Shortness 04/03/22 06/06/22 (2.5 mg base)/3 mL nebulization Of Breath Or Wheezing soln levothyroxine 25 mcg tablet 25 mcg PO DAILY 04/03/22 06/06/22 simvastatin 10 mg tablet 10 mg PO HS 04/03/22 06/06/22 topiramate 25 mg tablet 25 mg PO BID 04/03/22 06/06/22 famotidine 10 mg tablet 10 mg PO DAILY 04/13/22 06/06/22 ketoconazole 2 % topical cream 1 applic topical BID PRN Rash 04/13/22 06/06/22 Previous Rx's Medication Instructions Recorded ferrous sulfate 325 mg (65 mg 325 mg PO DAILY@12 #30 tabs 07/21/18 iron) tablet magnesium oxide 400 mg (241.3 mg 400 mg PO BID #60 tabs 07/21/18 magnesium) tablet furosemide 20 mg tablet 40 mg PO QAM #30 tabs 04/06/22 Results & Data (ED) Vital Signs Vital Signs - 24 hr 06/06/22 11:32 06/06/22 12:04 06/06/22 13:23 Temperature 36.6 C 36.8 C Temperature Source Temporal Artery Scan Oral Pulse Rate 86 Pulse Rate [Apical] 72 Pulse Rate from SpO2 Sensor Pulse Rhythm [Apical] Regular Respiratory Rate 18 20 Respiratory Effort / Characteristics Non-Labored Spontaneous Non-Labored Respiratory Depth Normal Normal Respiratory Pattern Regular Blood Pressure 129/66 Blood Pressure [Right Arm] 102/58 L Blood Pressure Mean 87 Blood Pressure Mean [Right Arm] 72 Blood Pressure Position [Right Arm] Pulse Oximetry 96 92 92 Oxygen Delivery Method Nasal Cannula Room Air Room Air Oxygen Flow Rate 3 Sepsis Recent Fever Within 48 Hours No Sepsis New/Unexplained Change in Mental Status N/A Sepsis Action Taken by Nursing No Action Required 06/06/22 14:26 06/06/22 14:33 06/06/22 15:31 Temperature Temperature Source Pulse Rate 68 69 Pulse Rate [Apical] 72 Pulse Rate from SpO2 Sensor 68 Pulse Rhythm [Apical] Respiratory Rate 15 20 Respiratory Effort / Characteristics Non-Labored Respiratory Depth Normal Respiratory Pattern Blood Pressure 120/45 L Blood Pressure [Right Arm] 120/45 L Blood Pressure Mean 70 Blood Pressure Mean [Right Arm] 70 Blood Pressure Position [Right Arm] Lying Pulse Oximetry 92 93 Oxygen Delivery Method Room Air Oxygen Flow Rate Sepsis Recent Fever Within 48 Hours Sepsis New/Unexplained Change in Mental Status Sepsis Action Taken by Nursing Laboratory Data Attestation: I reviewed the patient's lab results. 06/06/22 11:43 06/06/22 11:43 Lab Results 06/06/22 06/06/22 06/06/22 Range/Units 11:43 11:43 13:34 WBC 8.76 (4.8-10.8) K/ul RBC 4.41 (4.20-5.40) M/uL Hgb 13.9 (12.0-16.0) g/dl Hct 43.1 (37.0-47.0) % MCV 97.7 (80.0-100.0) fL MCH 31.5 (25.0-34.0) pg MCHC 32.3 (32.0-36.0) g/dL RDW Std Deviation 60.4 H (36.4-46.3) fL RDW Coeff of Moni 16.8 H (11.5-14.5) % Plt Count 212 (130-400) K/uL MPV 11.4 (9.4-12.4) fL Immature Gran % (Auto) 0.2 % Neut % (Auto) 75.5 % Lymph % (Auto) 14.5 % [place] % (Auto) 7.0 % Eos % (Auto) 2.3 % Baso % (Auto) 0.5 % Neut # (Auto) 6.62 H (1.40-6.50) K/uL Lymph # (Auto) 1.27 (1.2-3.4) K/uL [place] # (Auto) 0.61 H (0.11-0.59) K/uL Eos # (Auto) 0.20 (0-0.50) K/uL Baso # (Auto) 0.04 (0-0.2) K/uL Immature Gran # (Auto) 0.02 (0.01-0.20) K/uL Sodium 140 (136-145) mmol/L Potassium 3.6 (3.5-5.1) mmol/L Chloride 105 (98-107) mmol/L Carbon Dioxide 28 (21-32) mmol/L Anion Gap 7 (3-11) BUN 24 H (6-23) mg/dl Creatinine 1.46 H (0.6-1.2) mg/dl Est Cr Clr Drug Dosing Not Reportable Est GFR ( Amer) 41.0 ml/min Est GFR (Non-Af Amer) 35.3 ml/min BUN/Creatinine Ratio 16.4 (10-20) Glucose 118 H (70-99(Fasting)) mg/dl Calcium 10.0 (8.5-10.1) mg/dl Total Bilirubin 0.6 (0.2-1.0) mg/dl AST 21 (13-39) U/L ALT 14 (7-52) U/L Alkaline Phosphatase 114 H (34-104) U/L Total Protein 9.0 H (6.0-8.3) gm/dl Albumin 4.0 (3.4-5.0) gm/dl Globulin 5.0 H (2.5-4.0) gm/dl Albumin/Globulin Ratio 0.8 L (0.9-2) SARS-CoV-2, RNA, NAAT NEGATIVE (NEGATIVE) Administered Medications Acetaminophen (Acetaminophen 325 Mg Tab) 650 mg PO Q6H PRN PRN Reason: Pain Stop: 07/06/22 19:52 Last Admin: 06/06/22 20:58 Dose: 650 mg Documented By: JOHNATHON Heparin Sodium (Porcine) (Heparin Sod 5,000 Unit/0.5 Ml Vial) 5,000 units SQ Q8 CHRYSTAL Stop: 07/06/22 21:59 Last Admin: 06/06/22 21:53 Dose: 5,000 units Documented By: JOHNATHON Magnesium Oxide (Magnesium Oxide 400 Mg Tab) 400 mg PO BID CHRYSTAL Stop: 07/06/22 20:59 Last Admin: 06/06/22 21:53 Dose: 400 mg Documented By: JOHNATHON Pantoprazole Sodium (Pantoprazole 40 Mg Tab) 40 mg PO BID CHRYSTAL Stop: 07/06/22 20:59 Last Admin: 06/06/22 21:53 Dose: 40 mg Documented By: JOHNATHON Simvastatin (Simvastatin 10 Mg Tab) 10 mg PO HS CHRYSTAL Stop: 07/06/22 20:59 Last Admin: 06/06/22 21:53 Dose: 10 mg Documented By: JOHNATHON Topiramate (Topiramate 25 Mg Tab) 25 mg PO BID CHRYSTAL Stop: 07/06/22 20:59 Last Admin: 06/06/22 21:53 Dose: 25 mg Documented By: JOHNATHON Imaging Data Radiologist's Impression: Abdomen/Pelvis CT 06/06/22 12:05 CT SCAN OF THE ABDOMEN AND PELVIS WITHOUT IV CONTRAST CLINICAL HISTORY: Sacral pain. Yeast dermatitis. COMPARISON STUDY: Abdominal CT dated 07/25/2014. Chest CT dated 07/16/2018. TECHNIQUE: CT scan of the abdomen and pelvis is performed from the lung bases to the proximal femora. Images are reviewed in the axial, sagittal, and coronal planes. IV contrast was not administered for this examination as per the referring clinician. Note that the examination was performed in suboptimal fashion without oral and IV contrast. The examination is degraded by large body habitus, and by streak artifact from the body wall abutting the CT gantry. A dose lowering technique was utilized adhering to the principles of ALARA. CT DOSE: 1870.42 mGy.cm FINDINGS: Lung bases: There is evidence of previous aortic valve surgery. The heart is normal in size and without pericardial effusion. There are scattered coronary artery calcifications. Indeterminate airspace opacities are seen at both lung bases with mild architectural distortion and nodular foci. The largest nodules are seen in the right lower lobe on images #53 and #57 and measure up to 6 mm. A small hiatal hernia is noted. Liver: The unenhanced liver is normal in size, contour, and attenuation. There is no intrahepatic biliary ductal dilatation. Gallbladder: Surgically absent noting clips in the gallbladder fossa. Spleen: Normal in size and attenuation. Pancreas: There is marked fatty atrophy of the pancreas. Adrenal glands: A 1.7 cm left adrenal nodule meets CT criteria for a fat- containing adenoma. The right adrenal gland is normal in appearance. Kidneys: The unenhanced kidneys demonstrate cortical atrophy and are without hydronephrosis. A 3 mm nonobstructing calculus is seen on the left. No right renal calculi are identified and there is no ureteral stone. A 1.7 cm exophytic cyst arises from the left upper pole. Abdominal vasculature: There is moderate to advanced atherosclerotic calcification and mild ectasia of the abdominal. 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 Bowel: There is mild sigmoid diverticulosis without CT evidence of acute diverticulitis. No bowel obstruction is seen. The appendix is well-visualized and normal. Peritoneum: There is no intraperitoneal free air or abdominal ascites. There is a fat-containing umbilical hernia. Lymphadenopathy: None. Pelvic viscera: The bladder, uterus, and adnexa are normal as visualized. There is a fat-containing left groin hernia. Skeletal structures: The skeletal structures are osteopenic. The sacrum appears intact. There is moderate lumbosacral spondylosis. No lytic or blastic lesions are seen. IMPRESSION: 1. No acute infectious or inflammatory findings are identified in the abdomen or pelvis. 2. Indeterminate airspace opacities with nodular foci and architectural distortion are present at both lung bases. This represents a significant change from a [address] This could represent an acute and/or chronic infectious/inflammatory process. This could also potentially represent post infectious change such as with prior Covid pneumonia. Developing fibrotic lung disease could appear similar. Clinical correlation will be essential and outpatient follow up with pulmonology is recommended. 3. Sigmoid diverticulosis without CT evidence of acute diverticulitis. 4. Left-sided nephrolithiasis. 5. The sacrum is normal as visualized. 6. Additional findings as above. ACT 112: Negative or not required by law. Electronically signed by: Sterling London M.D. 06/06/2022 2:07 PM Discharge Plan Visit Data Chief Complaint: Wound Stated Complaint: OPEN WOUNDS ED Provider: Pilo Narayan Discharge Problem: Failure of outpatient treatment, CHF (congestive heart failure), Candidiasis, intertriginous, Ambulatory dysfunction Patient Disposition: Admitted As Inpatient Discharge Instructions Interventions: ED Discharge Assessment Last Done: 06/06/22 18:36
--- NOTE | 2022-06-06 14:08 | CT Scan Report ---
CT SCAN OF THE ABDOMEN AND PELVIS WITHOUT IV CONTRAST CLINICAL HISTORY: Sacral pain. Yeast dermatitis. COMPARISON STUDY: Abdominal CT dated 07/25/2014. Chest CT dated 07/16/2018. TECHNIQUE: CT scan of the abdomen and pelvis is performed from the lung bases to the proximal femora. Images are reviewed in the axial, sagittal, and coronal planes. IV contrast was not administered for this examination as per the referring clinician. Note that the examination was performed in suboptim al fashion without oral and IV contrast. The examination is degraded by large body habitus, and by st reak artifact from the body wall abutting the CT gantry. A dose lowering technique was utilized adher ing to the principles of ALARA. CT DOSE: 1870.42 mGy.cm FINDINGS: Lung bases: There is evidence of previous aortic valve surgery. The heart is normal in size and witho ut pericardial effusion. There are scattered coronary artery calcifications. Indeterminate airspace o pacities are seen at both lung bases with mild architectural distortion and nodular foci. The largest nodules are seen in the right lower lobe on images #53 and #57 and measure up to 6 mm. A small hiata l hernia is noted. Liver: The unenhanced liver is normal in size, contour, and attenuation. There is no intrahepatic bridgette iary ductal dilatation. Gallbladder: Surgically absent noting clips in the gallbladder fossa. Spleen: Normal in size and attenuation. Pancreas: There is marked fatty atrophy of the pancreas. Adrenal glands: A 1.7 cm left adrenal nodule meets CT criteria for a fat-containing adenoma. The righ t adrenal gland is normal in appearance. Kidneys: The unenhanced kidneys demonstrate cortical atrophy and are without hydronephrosis. A 3 mm n onobstructing calculus is seen on the left. No right renal calculi are identified and there is no ure teral stone. A 1.7 cm exophytic cyst arises from the left upper pole. Abdominal vasculature: There is moderate to advanced atherosclerotic calcification and mild ectasia o f the abdominal. 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 Bowel: There is mild sigmoid diverticulosis without CT evidence of acute diverticulitis. No bowel obs truction is seen. The appendix is well-visualized and normal. Peritoneum: There is no intraperitoneal free air or abdominal ascites. There is a fat-containing umbi lical hernia. Lymphadenopathy: None. Pelvic viscera: The bladder, uterus, and adnexa are normal as visualized. There is a fat-containing l eft groin hernia. Skeletal structures: The skeletal structures are osteopenic. The sacrum appears intact. There is mode rate lumbosacral spondylosis. No lytic or blastic lesions are seen. IMPRESSION: 1. No acute infectious or inflammatory findings are identified in the abdomen or pelvis. 2. Indeterminate airspace opacities with nodular foci and architectural distortion are present at bot h lung bases. This represents a significant change from a [address] This could represent an acut e and/or chronic infectious/inflammatory process. This could also potentially represent post infectio us change such as with prior Covid pneumonia. Developing fibrotic lung disease could appear similar. Clinical correlation will be essential and outpatient follow up with pulmonology is recommended. 3. Sigmoid diverticulosis without CT evidence of acute diverticulitis. 4. Left-sided nephrolithiasis. 5. The sacrum is normal as visualized. 6. Additional findings as above. ACT 112: Negative or not required by law. Electronically signed by: Sterling London M.D. 06/06/2022 2:07 PM
--- NOTE | 2022-06-06 17:03 | History & Physical Report ---
Date of Service June 06, 2022 Assessment & Plan (1) Ambulatory dysfunction: (2) Unable to care for self: (3) Obesity: (4) CKD (chronic kidney disease), stage III: (5) CHF (congestive heart failure): (6) COPD (chronic obstructive pulmonary disease): Plan Ambulatory dysfunction Inability to care for self at home. Family requesting placement We will get PT/OT evaluation and case management consult for placement. Labs today only notable for creatinine of 1.46 which is at baseline, alkaline phosphatase of 114 CT abdomen pelvis did not show any acute finding. Noted indeterminate airspace opacities present in both lungs which could be acute versus chronic changes, sigmoid diverticulosis, left-sided nephrolithiasis, sacrum is normal. Sacral wound appear to be healing Regular turns Wound care Advised patient to avoid laying on bed all the time as family reported Continue home Lasix, aspirin, Plavix, amiodarone. Sister reports that she has only been needing the tramadol at bedtime for her osteoarthritis pain. Continue home nebs/inhalers. DVT prophylaxis heparin sq Code status - Patient stated she is DNR after discussion with her History of Present Illness Chief Complaint: Inability to care for self at home Ambulatory dysfunction Primary Care Provider: Chana Stacy PA-C 71-year-old woman with history of COPD, morbid obesity, GERD, CHF, proximal A- fib, dyslipidemia, TAVR, CKD 3 and other medical problems who was brought in for placement. History provided by patient, brother and [id number] who was at bedside as well as sister over the phone. Patient has not been moving around for months now and sister had been taking care of her. Patient reports ambulatory dysfunction that has worsened over time. Reports knee has osteoarthritis and difficulty moving around due to that. Sister who had been taking care of her is getting surgery at [facility]. Patient was seen by PCPs office and sent in to the ER. Brother and [id number] at bedside states that patient is unable to care for self at this time, worsened by her ambulatory dysfunction and requesting for placement. Patient denies any chest pain, cough, shortness of breath at rest. Denies any headache, dizziness Denies any nausea, vomiting, abdominal pain, diarrhea constipation Denies dysuria, frequency or urgency Reports buttock pain from old wound. Denies fevers, chills Denies melena, hematochezia or hematuria Denied depression, suicidal or homicidal ideation Allergies Allergy/AdvReac Type Severity Reaction Status Date / Time dog dander Allergy Intermediate Sneezing Verified 03/20/19 08:57 egg Allergy SPECIFIC-DUCK Verified 03/20/19 08:57 EGG CAUSED FACIAL SWELLING pollen extracts Allergy HAYFEVER Verified 03/20/19 08:57 methylprednisolone AdvReac Unknown Verified 03/20/19 08:57 [From [facility]] Home Medications Medication Instructions Recorded Confirmed Type albuterol sulfate 90 mcg/actuation 2 puff inhalation QID PRN 01/02/18 06/06/22 History aerosol inhaler (Ventolin HFA) Shortness Of Breath Or Wheezing pantoprazole 40 mg tablet,delayed 40 mg PO BID 01/02/18 06/06/22 History release ferrous sulfate 325 mg (65 mg 325 mg PO DAILY@12 #30 tabs 07/21/18 06/06/22 Rx iron) tablet magnesium oxide 400 mg (241.3 mg 400 mg PO BID #60 tabs 07/21/18 06/06/22 Rx magnesium) tablet metoprolol succinate 25 mg capsule 25 mg PO QAM 09/04/18 06/06/22 History sprinkle, ext. release 24 hr acetaminophen 500 mg tablet 500 mg PO Q6H PRN Pain 10/17/18 06/06/22 History (Tylenol Extra Strength) amiodarone 200 mg tablet 200 mg PO QAM 10/17/18 06/06/22 History ascorbic acid (vitamin C) 500 mg 250 mg PO DAILY@12 10/17/18 06/06/22 History tablet tramadol 50 mg tablet 50 mg PO HS PRN headache or 10/17/18 06/06/22 History arthritis pain aspirin 81 mg chewable tablet 81 mg PO DAILY 03/19/19 06/06/22 History fluticasone propionate 220 1 puff inhalation BID 03/19/19 06/06/22 History mcg/actuation HFA aerosol inhaler (Flovent HFA) clopidogrel 75 mg tablet 75 mg PO DAILY 04/03/22 06/06/22 History ipratropium 0.5 mg-albuterol 3 mg 3 ml inhalation Q6H PRN Shortness 04/03/22 06/06/22 History (2.5 mg base)/3 mL nebulization Of Breath Or Wheezing soln levothyroxine 25 mcg tablet 25 mcg PO DAILY 04/03/22 06/06/22 History simvastatin 10 mg tablet 10 mg PO HS 04/03/22 06/06/22 History topiramate 25 mg tablet 25 mg PO BID 04/03/22 06/06/22 History furosemide 20 mg tablet 40 mg PO QAM #30 tabs 04/06/22 06/06/22 Rx famotidine 10 mg tablet 10 mg PO DAILY 04/13/22 06/06/22 History ketoconazole 2 % topical cream 1 applic topical BID PRN Rash 04/13/22 06/06/22 History Past Med/Surg History Medical History Aortic stenosis Atrial fibrillation Cardiac murmur CHF (congestive heart failure) CKD (chronic kidney disease), stage III COPD (chronic obstructive pulmonary disease) Dyslipidemia GERD (gastroesophageal reflux disease) History of migraine Kidney stones Migraine Obesity Osteoarthritis Paroxysmal atrial fibrillation SOB (shortness of breath) on exertion Stomach ulcer HX Tobacco abuse quit 3 months ago Surgical History History of colonoscopy History of cystoscopy History of esophagogastroduodenoscopy (EGD) Hx of cholecystectomy Family History Father Family history of diabetes mellitus Social History Smoking Status: Former smoker Tobacco Type: Cigarettes Cigarettes Per Day: QUIT 2 MONTHS AGO; Second Hand Exposure: No; Hx Alcohol Use: No Hx Substance Use: No Preferred Language: Yoruba Communication Ability: Effective Front Desk Agent Required: No Beliefs That Will Affect Care: None Current Living Situation: Family Current Living Situation Comment: lives with sister and [id number] Feels Safe at Home: Yes Assistive Devices: Walker Review of Systems Review of Systems: All systems reviewed & are unremarkable except as noted in HPI & below Physical Exam Constitutional: + well hydrated and + obese; no acute distress Eyes: PERRL, conjunctivae normal, anicteric sclerae ENMT: external ear and nose normal, oropharynx normal Respiratory: normal respiratory effort; no respiratory distress Auscultation: + diminished lung sounds; no crackles and no wheezes Cardiovascular: Rate/Rhythm: regular rate and regular rhythm S1-S2 Gastrointestinal (Abdomen): normal bowel sounds, soft, nontender, no hepatosplenomegaly Musculoskeletal: Chronic stasis changes in legs Skin: Small scab over a small (<2cm) right buttock near cleft that is tender. No drainage, erythema Neurologic: PERRL, EOMI, accommodation nl, no face palsy, no dysarthria Psychiatric: A+Ox3, euthymic affect Results & Data Results & Data ([facility]) Vital Signs (Past 12 Hours) Vital Signs Temp Pulse Pulse Resp BP BP Pulse Ox 06/06/22 15:31 72 20 120/45 L 93 06/06/22 14:33 69 06/06/22 14:26 68 15 120/45 L 92 06/06/22 13: 36.8 C 72 20 102/58 L 92 06/06/22 12:04 92 06/06/22 11:32 36.6 C 86 18 129/66 96 O2 Del Method O2 Flow Rate 06/06/22 15:31 Room Air 06/06/22 14:33 06/06/22 14:26 06/06/22 13:23 Room Air 06/06/22 12:04 Room Air 06/06/22 11:32 Nasal Cannula 3 Laboratory Results Laboratory Results - last 24 hr 06/06/22 06/06/22 06/06/22 11:43 11:43 13:34 WBC 8.76 RBC 4.41 Hgb 13.9 Hct 43.1 MCV 97.7 MCH 31.5 MCHC 32.3 RDW Std Deviation 60.4 H RDW Coeff of Moni 16.8 H Plt Count 212 MPV 11.4 Immature Gran % (Auto) 0.2 Neut % (Auto) 75.5 Lymph % (Auto) 14.5 Evangeline % (Auto) 7.0 Eos % (Auto) 2.3 Baso % (Auto) 0.5 Neut # (Auto) 6.62 H Lymph # (Auto) 1.27 Evangeline # (Auto) 0.61 H Eos # (Auto) 0.20 Baso # (Auto) 0.04 Immature Gran # (Auto) 0.02 Sodium 140 Potassium 3.6 Chloride 105 Carbon Dioxide 28 Anion Gap 7 BUN 24 H Creatinine 1.46 H Est Cr Clr Drug Dosing Not Reportable Est GFR ( Amer) 41.0 Est GFR (Non-Af Amer) 35.3 BUN/Creatinine Ratio 16.4 Glucose 118 H Calcium 10.0 Total Bilirubin 0.6 AST 21 ALT 14 Alkaline Phosphatase 114 H Total Protein 9.0 H Albumin 4.0 Globulin 5.0 H Albumin/Globulin Ratio 0.8 L SARS-CoV-2, RNA, NAAT NEGATIVE
[2022-06-06] MEDS ORDERED: ALBUT/IPRATROP 3MG/0.5MG NEB 3 ML VIAL INH PRN (19:53)
[2022-06-06] MEDS ORDERED: KETOCONAZOLE 2% CR 15 GM TUBE EXT PRN (19:53)
[2022-06-06] MEDS ORDERED: traMADol HCL 50 MG TABLET PO PRN (19:53)
[2022-06-06] MEDS: ACETAMINOPHEN 325 MG TAB PO PRN (20:58)
[2022-06-06] MEDS: SIMVASTATIN 10 MG TAB PO SCH (21:53)
[2022-06-06] MEDS: MAGNESIUM OXIDE 400 MG TAB PO SCH (21:53)
[2022-06-06] MEDS: HEPARIN SOD 5,000 UNIT/0.5 ML VIAL SQ SCH (21:53)
[2022-06-06] MEDS: TOPIRAMATE 25 MG TAB PO SCH (21:53)
[2022-06-06] MEDS: PANTOprazole 40 MG TAB PO SCH (21:53)
[2022-06-07] MEDS: HEPARIN SOD 5,000 UNIT/0.5 ML VIAL SQ SCH ×4 (05:36→20:51)
[2022-06-07] MEDS: ACETAMINOPHEN 325 MG TAB PO PRN ×3 (05:37→20:45)
--- NOTE | 2022-06-07 07:50 | Hospitalist Progress Note ---
Date of Service June 07, 2022 Assessment & Plan (1) Ambulatory dysfunction: (2) Unable to care for self: (3) Obesity: (4) CKD (chronic kidney disease), stage III: (5) CHF (congestive heart failure): (6) COPD (chronic obstructive pulmonary disease): (7) Open wound of buttock: Plan Ambulatory dysfunction Inability to care for self at home. Family requesting placement We will get PT/OT evaluation and case management consult for placement. Labs today only notable for creatinine of 1.46 which is at baseline, alkaline phosphatase of 114 CT abdomen pelvis did not show any acute finding. Noted indeterminate airspace opacities present in both lungs which could be acute versus chronic changes, sigmoid diverticulosis, left-sided nephrolithiasis, sacrum is normal. Sacral wound appear to be healing Regular turns Wound care Advised patient to avoid laying on bed all the time as family reported Continue home Lasix, aspirin, Plavix, amiodarone. Sister reports that she has only been needing the tramadol at bedtime for her osteoarthritis pain. Continue home nebs/inhalers. DVT prophylaxis heparin sq Code status - Patient stated she is DNR after discussion with her Admission and Anticipated Discharge Date Admission Date: June 06, 2022 Results & Data Results & Data ([facility]) Vital Signs (Past 12 Hours) Vital Signs Temp Pulse Resp BP Pulse Ox O2 Del Method 06/07/22 07:23 36.7 C 72 18 101/46 L 92 Room Air 06/06/22 23:43 36.6 C 76 16 101/58 L 96 Room Air 06/06/22 22:43 36.6 C 80 18 100/62 95 Room Air Laboratory Results Short CBC 06/06/22 Range/Units 11:43 WBC 8.76 (4.8-10.8) K/ul Hgb 13.9 (12.0-16.0) g/dl Hct 43.1 (37.0-47.0) % Plt Count 212 (130-400) K/uL BMP 06/06/22 11:43 Sodium 140 Potassium 3.6 Chloride 105 Carbon Dioxide 28 BUN 24 H Creatinine 1.46 H Glucose 118 H Calcium 10.0 Liver Function 06/06/22 Range/Units 11:43 Total Bilirubin 0.6 (0.2-1.0) mg/dl AST 21 (13-39) U/L ALT 14 (7-52) U/L Alkaline Phosphatase 114 H (34-104) U/L Albumin 4.0 (3.4-5.0) gm/dl Medications Administered Current Inpatient Medications Acetaminophen (Acetaminophen 325 Mg Tab) 650 mg PO Q6H PRN PRN Reason: Pain Stop: 07/06/22 19:52 Last Admin: 06/07/22 05:37 Dose: 650 mg Albuterol (Albut/Ipratrop 3mg/0.5mg Neb 3 Ml Vial) 3 ml INH Q6H PRN; Protocol PRN Reason: Shortness Of Breath Or Wheezing Stop: 07/06/22 19:52 Amiodarone HCl (Amiodarone 200 Mg Tab) 200 mg PO QAM [facility] Stop: 07/07/22 08:59 Ascorbic Acid (Ascorbic Acid 500 Mg Tab) 250 mg PO DAILY@12 [facility] Stop: 07/07/22 11:59 Aspirin (Aspirin 81 Mg Chew) 81 mg PO DAILY [facility] Stop: 07/07/22 08:59 Clopidogrel Bisulfate (Clopidogrel Bisulfate 75 Mg Tab) 75 mg PO DAILY [facility] Stop: 07/07/22 08:59 Famotidine (Famotidine 10 Mg Tablet) 10 mg PO DAILY [facility] Stop: 07/07/22 08:59 Ferrous Sulfate (Ferrous Sulfate 325 Mg Tab) 325 mg PO DAILY@12 [facility] Stop: 07/07/22 11:59 Fluticasone Furoate (Fluticasone Furoate 200mcg 14 Puffs/Inhaler) 1 puffs INH DAILY [facility] Stop: 07/07/22 08:59 Furosemide (Furosemide 40 Mg Tab) 40 mg PO QAM [facility] Stop: 07/07/22 08:59 Heparin Sodium (Porcine) (Heparin Sod 5,000 Unit/0.5 Ml Vial) 5,000 units SQ Q8 [facility] Stop: 07/06/22 21:59 Last Admin: 06/07/22 05:36 Dose: 5,000 units Ketoconazole (Ketoconazole 2% Cr 15 Gm Tube) 1 appln EXT BID PRN PRN Reason: Rash Stop: 06/16/22 19:52 Levothyroxine Sodium (Levothyroxine Sodium 25 Mcg Tablet) 25 mcg PO DAILY [facility] Stop: 07/07/22 08:59 Magnesium Oxide (Magnesium Oxide 400 Mg Tab) 400 mg PO BID [facility] Stop: 07/06/22 20:59 Last Admin: 06/06/22 21:53 Dose: 400 mg Metoprolol Succinate (Metoprolol Succ 25mg Ext Rel Tab) 25 mg PO QAM [facility] Stop: 07/07/22 08:59 Pantoprazole Sodium (Pantoprazole 40 Mg Tab) 40 mg PO BID [facility] Stop: 07/06/22 20:59 Last Admin: 06/06/22 21:53 Dose: 40 mg Simvastatin (Simvastatin 10 Mg Tab) 10 mg PO HS [facility] Stop: 07/06/22 20:59 Last Admin: 06/06/22 21:53 Dose: 10 mg Topiramate (Topiramate 25 Mg Tab) 25 mg PO BID [facility] Stop: 07/06/22 20:59 Last Admin: 06/06/22 21:53 Dose: 25 mg Tramadol HCl (Tramadol Hcl 50 Mg Tablet) 50 mg PO HS PRN PRN Reason: headache or arthritis pain Stop: 07/06/22 19:52
[2022-06-07] MEDS: AMIODARONE 200 MG TAB PO SCH (08:23)
[2022-06-07] MEDS: ASPIRIN 81 MG CHEW PO SCH (08:23)
[2022-06-07] MEDS: TOPIRAMATE 25 MG TAB PO SCH ×2 (08:24→20:49)
[2022-06-07] MEDS: MAGNESIUM OXIDE 400 MG TAB PO SCH ×2 (08:24→20:48)
[2022-06-07] MEDS: CLOPIDOGREL BISULFATE 75 MG TAB PO SCH (08:24)
[2022-06-07] MEDS: LEVOTHYROXINE SODIUM 25 MCG TABLET PO SCH (08:24)
[2022-06-07] MEDS: FAMOTIDINE 10 MG TABLET PO SCH (08:24)
[2022-06-07] MEDS: PANTOprazole 40 MG TAB PO SCH ×2 (08:24→20:48)
[2022-06-07] MEDS: METOPROLOL SUCC 25MG EXT REL TAB PO SCH (08:24)
[2022-06-07] MEDS: FLUTICASONE FUROATE 200MCG 14 PUFFS/INHALER INH SCH (08:24)
[2022-06-07] MEDS ORDERED: FUROSEMIDE 40 MG TAB PO SCH (09:00)
[2022-06-07] MEDS: ASCORBIC ACID 500 MG TAB PO SCH (11:55)
[2022-06-07] MEDS: FERROUS SULFATE 325 MG TAB PO SCH (11:55)
[2022-06-07] MEDS ORDERED: COUGH DROP (SUGAR FREE) LOZ 24 LOZ/1 BOX BUCCAL ONE (12:26)
--- NOTE | 2022-06-07 15:03 | Hospitalist Progress Note ---
Date of Service June 07, 2022 Assessment & Plan (1) Ambulatory dysfunction: (2) Unable to care for self: (3) Obesity: (4) CKD (chronic kidney disease), stage III: (5) CHF (congestive heart failure): (6) COPD (chronic obstructive pulmonary disease): (7) Open wound of buttock: Plan Ambulatory dysfunction Inability to care for self at home Family requesting placement PT/OT, CM following Abnormal CT findings CT ABD/pelvis negative for acute abdominal findings However notes Indeterminate airspace opacities with nodular foci and architectural distortion are present at both lung bases. This represents a significant change from a [address] This could represent an acute and/or chronic infectious/inflammatory process. This could also potentially represent post infectious change such as with prior Covid pneumonia. Developing fibrotic lung disease could appear similar. Patient saturating well on room air, no pulmonary complaints Consider outpatient follow-up with pulmonology Sacral wound Appears to be healing Wound care nurse consult CKD Stage III Creatinine 1.4, at baseline Paroxysmal atrial fibrillation Rhythm controlled on amiodarone, rate controlled on metoprolol Not anticoagulated due to history of GI bleeding Chronic diastolic CHF due to valvular disease S/p TAVR Echo 03/2022-EF > 70%, grade 1 diastolic dysfunction, normal gradient for bioprosthetic aortic valve Volume status appears euvolemic Continue home dose furosemide, Plavix Hypothyroidism Continue levothyroxine History of migraines On topiramate for prophylaxis DVT PROPHYLAXIS SQ heparin Admission and Anticipated Discharge Date Admission Date: June 06, 2022 Supervising Physician Co-Signing Physician Notes I have seen and examined the patient and have discussed the case with the provider above. I agree with the assessment and plan as stated. 71 yo F who was vibrant and talkative with family at bedside upon my arrival. She does not appear depressed and does not admit to apathy or depression. She agrees with the idea that she cannot care for herself because she is unable to ambulate well due to her severe knee arthritis. She reports taking Tylenol daily for headaches but doesn't take anything for OA per se. She has tramadol on her list. She is morbidly obese and in NAD but is resistant or unable to move around easily for exam today. Reports pain in her L>R leg related to OA of the knee. There is no clear acute synovitis present. There is a decreased ROM of the left and right knee. Exam is otherwise unremarkable. Records and medications were reviewed. Added scheduled Tramadol and she is taking Acetaminophen frequently. As she is on aspirin and clopidogrel, would avoid excessive NSAIDs, but this may be a short term option for pain control in a flare. Frank DO Subjective Follow-up for ambulatory dysfunction. Patient seen and examined. Offers no complaints. Denies chest pain and shortness of breath. No abdominal pain or nausea. Review of Systems Review of Systems: ROS per HPI, all other systems reviewed and negative Physical Exam Constitutional: WD/WN, vitals as above + obese; no acute distress Respiratory: normal respiratory effort, lungs clear to auscultation Cardiovascular: Rate/Rhythm: regular rate and regular rhythm Vessels: normal peripheral pulses Extremities: no edema Gastrointestinal (Abdomen): Percussion/Palpation: abdomen soft; abdomen nontender Skin: no rashes, warm and dry small decub wounds noted to BL buttocks with chronic skin changes Neurologic: no focal motor deficits Psychiatric: A+Ox3, euthymic affect Results & Data Results & Data ([facility]) Vital Signs (Past 12 Hours) Vital Signs Temp Pulse Resp BP Pulse Ox O2 Del Method 06/07/22 11:17 Room Air 06/07/22 07:23 36.7 C 72 18 101/46 L 92 Room Air Medications Administered Current Inpatient Medications Acetaminophen (Acetaminophen 325 Mg Tab) 650 mg PO Q6H PRN PRN Reason: Pain Stop: 07/06/22 19:52 Last Admin: 06/07/22 11:55 Dose: 650 mg Albuterol (Albut/Ipratrop 3mg/0.5mg Neb 3 Ml Vial) 3 ml INH Q6H PRN; Protocol PRN Reason: Shortness Of Breath Or Wheezing Stop: 07/06/22 19:52 Amiodarone HCl (Amiodarone 200 Mg Tab) 200 mg PO QAM [facility] Stop: 07/07/22 08:59 Last Admin: 06/07/22 08:23 Dose: 200 mg Ascorbic Acid (Ascorbic Acid 500 Mg Tab) 250 mg PO DAILY@12 [facility] Stop: 07/07/22 11:59 Last Admin: 06/07/22 11:55 Dose: 250 mg Aspirin (Aspirin 81 Mg Chew) 81 mg PO DAILY [facility] Stop: 07/07/22 08:59 Last Admin: 06/07/22 08:23 Dose: 81 mg Clopidogrel Bisulfate (Clopidogrel Bisulfate 75 Mg Tab) 75 mg PO DAILY [facility] Stop: 07/07/22 08:59 Last Admin: 06/07/22 08:24 Dose: 75 mg Famotidine (Famotidine 10 Mg Tablet) 10 mg PO DAILY [facility] Stop: 07/07/22 08:59 Last Admin: 06/07/22 08:24 Dose: 10 mg Ferrous Sulfate (Ferrous Sulfate 325 Mg Tab) 325 mg PO DAILY@12 [facility] Stop: 07/07/22 11:59 Last Admin: 06/07/22 11:55 Dose: 325 mg Fluticasone Furoate (Fluticasone Furoate 200mcg 14 Puffs/Inhaler) 1 puffs INH DAILY [facility] Stop: 07/07/22 08:59 Last Admin: 06/07/22 08:24 Dose: 1 puffs Furosemide (Furosemide 40 Mg Tab) 40 mg PO QAM [facility] Stop: 07/07/22 08:59 Heparin Sodium (Porcine) (Heparin Sod 5,000 Unit/0.5 Ml Vial) 5,000 units SQ Q8 [facility] Stop: 07/06/22 21:59 Last Admin: 06/07/22 11:55 Dose: 5,000 units Ketoconazole (Ketoconazole 2% Cr 15 Gm Tube) 1 appln EXT BID PRN PRN Reason: Rash Stop: 06/16/22 19:52 Levothyroxine Sodium (Levothyroxine Sodium 25 Mcg Tablet) 25 mcg PO DAILY [facility] Stop: 07/07/22 08:59 Last Admin: 06/07/22 08:24 Dose: 25 mcg Magnesium Oxide (Magnesium Oxide 400 Mg Tab) 400 mg PO BID [facility] Stop: 07/06/22 20:59 Last Admin: 06/07/22 08:24 Dose: 400 mg Metoprolol Succinate (Metoprolol Succ 25mg Ext Rel Tab) 25 mg PO QAM [facility] Stop: 07/07/22 08:59 Last Admin: 06/07/22 08:24 Dose: 25 mg Pantoprazole Sodium (Pantoprazole 40 Mg Tab) 40 mg PO BID [facility] Stop: 07/06/22 20:59 Last Admin: 06/07/22 08:24 Dose: 40 mg Simvastatin (Simvastatin 10 Mg Tab) 10 mg PO HS [facility] Stop: 07/06/22 20:59 Last Admin: 06/06/22 21:53 Dose: 10 mg Topiramate (Topiramate 25 Mg Tab) 25 mg PO BID [facility] Stop: 07/06/22 20:59 Last Admin: 06/07/22 08:24 Dose: 25 mg Tramadol HCl (Tramadol Hcl 50 Mg Tablet) 50 mg PO HS PRN PRN Reason: headache or arthritis pain Stop: 07/06/22 19:52
[2022-06-07] MEDS: traMADol HCL 50 MG TABLET PO SCH (20:46)
[2022-06-07] MEDS: SIMVASTATIN 10 MG TAB PO SCH (20:49)
[2022-06-08] MEDS: HEPARIN SOD 5,000 UNIT/0.5 ML VIAL SQ SCH ×3 (04:53→21:25)
[2022-06-08] MEDS: METOPROLOL SUCC 25MG EXT REL TAB PO SCH (07:39)
[2022-06-08] MEDS: LEVOTHYROXINE SODIUM 25 MCG TABLET PO SCH (08:25)
[2022-06-08] MEDS: ASPIRIN 81 MG CHEW PO SCH (08:25)
[2022-06-08] MEDS: CLOPIDOGREL BISULFATE 75 MG TAB PO SCH (08:25)
[2022-06-08] MEDS: AMIODARONE 200 MG TAB PO SCH (08:25)
[2022-06-08] MEDS: FLUTICASONE FUROATE 200MCG 14 PUFFS/INHALER INH SCH (08:26)
[2022-06-08] MEDS: FAMOTIDINE 10 MG TABLET PO SCH (08:26)
[2022-06-08] MEDS: traMADol HCL 50 MG TABLET PO SCH ×2 (08:26→20:00)
[2022-06-08] MEDS: PANTOprazole 40 MG TAB PO SCH ×2 (08:26→20:00)
[2022-06-08] MEDS: MAGNESIUM OXIDE 400 MG TAB PO SCH ×2 (08:26→20:00)
[2022-06-08] MEDS: TOPIRAMATE 25 MG TAB PO SCH ×2 (08:26→20:00)
[2022-06-08] MEDS: FERROUS SULFATE 325 MG TAB PO SCH (12:51)
[2022-06-08] MEDS: ASCORBIC ACID 500 MG TAB PO SCH (12:51)
--- NOTE | 2022-06-08 15:49 | Hospitalist Progress Note ---
Date of Service June 08, 2022 Assessment & Plan (1) Ambulatory dysfunction: (2) Unable to care for self: (3) Obesity: (4) CKD (chronic kidney disease), stage III: (5) CHF (congestive heart failure): (6) COPD (chronic obstructive pulmonary disease): (7) Open wound of buttock: Plan Ambulatory dysfunction Inability to care for self at home Family requesting placement PT/OT, CM following Abnormal CT findings CT ABD/pelvis negative for acute abdominal findings However notes Indeterminate airspace opacities with nodular foci and architectural distortion are present at both lung bases. This represents a significant change from a [address] This could represent an acute and/or chronic infectious/inflammatory process. This could also potentially represent post infectious change such as with prior Covid pneumonia. Developing fibrotic lung disease could appear similar. Patient saturating well on room air, no pulmonary complaints Consider outpatient follow-up with pulmonology Sacral wound Appears to be healing Wound care nurse consult CKD Stage III Creatinine 1.4, at baseline Paroxysmal atrial fibrillation Rhythm controlled on amiodarone, rate controlled on metoprolol Not anticoagulated due to history of GI bleeding Chronic diastolic CHF due to valvular disease S/p TAVR Echo 03/2022-EF > 70%, grade 1 diastolic dysfunction, normal gradient for bioprosthetic aortic valve Volume status appears euvolemic Continue home dose furosemide, Plavix Hypothyroidism Continue levothyroxine History of migraines On topiramate for prophylaxis DVT PROPHYLAXIS SQ heparin Dispo -awaiting placement, CM following Admission and Anticipated Discharge Date Admission Date: June 07, 2022 Supervising Physician Co-Signing Physician Notes Patient is seen and examined at bedside. States feeling well today. Denies any chest pain, shortness of breath, dizziness, nausea, abdominal pain. Denies any pain/discharge of pressure wounds of sacral region. Waiting for placement. On exam patient is morbidly obese, no apparent distress, normocephalic/atraumatic, EOMI, normal breath sounds, clear to auscultation, S1-S2, no murmur, +. MS, abdomen soft, nontender, normal bowel sounds, alert, awake, oriented, grossly no focal deficits. Ambulatory dysfunction, sacral wound. Continue wound care. Plan to discharge to rehab when accepted. I personally reviewed the record. Patient is interviewed and examined at bedside. Patient's care is coordinated with Claudia Childs [employer]. Please refer to the documentation above for details of patient's presentation and for discussion of other issues. Subjective Follow-up for ambulatory dysfunction. Patient seen and examined. Sitting up in the chair. Offers no complaints. Awaiting placement. Review of Systems Review of Systems: ROS per HPI, all other systems reviewed and negative Physical Exam Constitutional: WD/WN, vitals as above + obese Respiratory: normal respiratory effort, lungs clear to auscultation Cardiovascular: Rate/Rhythm: regular rate and regular rhythm Skin: no rashes, warm and dry Neurologic: no focal motor deficits Psychiatric: A+Ox3, euthymic affect Results & Data Results & Data ([facility]) Vital Signs (Past 12 Hours) Vital Signs Temp Pulse Pulse Resp BP BP Pulse Ox 06/08/22 15:28 36.3 C L 65 65 16 129/73 93 06/08/22 11:52 06/08/22 07:36 36.4 C L 60 17 99/52 L 90 O2 Del Method 06/08/22 15:28 Room Air 06/08/22 11:52 Room Air 06/08/22 07:36 Room Air
[2022-06-08] MEDS: ACETAMINOPHEN 325 MG TAB PO PRN (19:29)
[2022-06-08] MEDS: SIMVASTATIN 10 MG TAB PO SCH (20:00)
[2022-06-09] MEDS: HEPARIN SOD 5,000 UNIT/0.5 ML VIAL SQ SCH ×3 (05:34→20:12)
[2022-06-09] MEDS: METOPROLOL SUCC 25MG EXT REL TAB PO SCH (08:29)
[2022-06-09] MEDS: FAMOTIDINE 10 MG TABLET PO SCH (08:29)
[2022-06-09] MEDS: PANTOprazole 40 MG TAB PO SCH ×2 (08:29→20:11)
[2022-06-09] MEDS: TOPIRAMATE 25 MG TAB PO SCH ×2 (08:29→20:11)
[2022-06-09] MEDS: ASPIRIN 81 MG CHEW PO SCH (08:29)
[2022-06-09] MEDS: LEVOTHYROXINE SODIUM 25 MCG TABLET PO SCH (08:29)
[2022-06-09] MEDS: CLOPIDOGREL BISULFATE 75 MG TAB PO SCH (08:29)
[2022-06-09] MEDS: AMIODARONE 200 MG TAB PO SCH (08:30)
[2022-06-09] MEDS: FLUTICASONE FUROATE 200MCG 14 PUFFS/INHALER INH SCH (08:30)
[2022-06-09] MEDS: traMADol HCL 50 MG TABLET PO SCH ×2 (08:35→20:14)
[2022-06-09] MEDS: MAGNESIUM OXIDE 400 MG TAB PO SCH ×2 (09:14→20:10)
[2022-06-09] MEDS: TROLAMINE SALICYLATE 10% CRM 255 APPLN/85 GM TUBE EXT PRN ×2 (09:14→17:56)
[2022-06-09 09:36] LABS: BUN Creatinine Ratio 14.8 (10-20); Calcium 9.1 mg/dl (8.5-10.1); Creatinine Clr Calc Pharmacy 56.2 ml/min; Est GFR (Non-African American) 41.4 ml/min
[2022-06-09] MEDS: ASCORBIC ACID 500 MG TAB PO SCH (12:00)
[2022-06-09] MEDS: FERROUS SULFATE 325 MG TAB PO SCH (12:00)
[2022-06-09] MEDS: ACETAMINOPHEN 325 MG TAB PO PRN ×2 (12:01→21:27)
--- NOTE | 2022-06-09 16:23 | Hospitalist Progress Note ---
Date of Service June 09, 2022 Assessment & Plan (1) Ambulatory dysfunction: (2) Unable to care for self: (3) Obesity: (4) CKD (chronic kidney disease), stage III: (5) CHF (congestive heart failure): (6) COPD (chronic obstructive pulmonary disease): (7) Open wound of buttock: Plan Ambulatory dysfunction Inability to care for self at home Family requesting placement PT/OT, CM following Abnormal CT findings CT ABD/pelvis negative for acute abdominal findings However notes Indeterminate airspace opacities with nodular foci and architectural distortion are present at both lung bases. This represents a significant change from a [address] This could represent an acute and/or chronic infectious/inflammatory process. This could also potentially represent post infectious change such as with prior Covid pneumonia. Developing fibrotic lung disease could appear similar. Patient saturating well on room air, no pulmonary complaints Consider outpatient follow-up with pulmonology Sacral wound Appears to be healing Wound care nurse consulted, reposition Q2H CKD Stage III Creatinine 1.28, at baseline Paroxysmal atrial fibrillation Rhythm controlled on amiodarone, rate controlled on metoprolol Not anticoagulated due to history of GI bleeding Chronic diastolic CHF due to valvular disease S/p TAVR Echo 03/2022-EF > 70%, grade 1 diastolic dysfunction, normal gradient for bioprosthetic aortic valve Volume status appears euvolemic Continue home dose furosemide, Plavix Hypothyroidism Continue levothyroxine History of migraines On topiramate for prophylaxis DVT PROPHYLAXIS SQ heparin Dispo -awaiting placement, CM following A total of 25 minutes were spent with greater than 50% of that time face to face with the patient, personally reviewing all current laboratories, imaging studies, past medication reconciliation, outpatient chart review, and discussion with specialists to collaborate care for the patient with attending and utilization of translation services. Please see attending documentation for corrections and/or additions. Admission and Anticipated Discharge Date Admission Date: June 07, 2022 Supervising Physician Co-Signing Physician Notes Patient is seen and examined at bedside. States feeling well today. Denies any chest pain, shortness of breath, dizziness, nausea, abdominal pain. Denies any pain/discharge of pressure wounds of sacral region. Waiting for placement. On exam patient is morbidly obese, no apparent distress, normocephalic/atraumatic, EOMI, normal breath sounds, clear to auscultation, S1-S2, no murmur, +. MS, abdomen soft, nontender, normal bowel sounds, alert, awake, oriented, grossly no focal deficits. Ambulatory dysfunction, sacral wound. Continue wound care. Plan to discharge to rehab when accepted. I personally reviewed the labs and records. Patient is interviewed and examined at bedside. Patient's care is coordinated with Randee GONZALES. Please refer to the documentation above for details of patient's presentation and for discussion of other issues. Subjective Seen and examined in 360 in follow-up of sacral wound and need for placement. Feeling well today without any new issues overnight. Resting comfortably. Denies any fever, chills, chest pain, shortness breath, nausea, vomiting, dumping, dysuria, diarrhea or constipation. Review of Systems Review of Systems: At least ten systems reviewed and negative except as noted in the HPI. Physical Exam Physical Exam: Gen: WD/WN, NAD, lying in bed, A&Ox3, morbidly obese HEENT: Normocephalic, atraumatic, conjunctivae moist, sclerae anicteric, mucous membranes moist Lung: Clear to Auscultation bilaterally, no wheezes/rales/rhonchi Heart: Regular rate, regular rhythm, no murmurs, rubs, or gallops Abdomen: Soft, NT, ND +BS x 4 Extremities: no edema Skin: Warm, no rash Results & Data Results & Data ([facility]) Vital Signs (Past 12 Hours) Vital Signs Temp Pulse Resp BP Pulse Ox O2 Del Method 06/09/22 15:43 36.7 C 65 20 97/54 L 93 Room Air 06/09/22 09:44 Room Air 06/09/22 07:52 36.5 C 67 20 107/48 L 91 Room Air Laboratory Results [facility] 06/09/22 08:57 Sodium 137 Potassium 4.0 Chloride 108 H Carbon Dioxide 25 BUN 19 Creatinine 1.28 H Glucose 115 H Calcium 9.1 Diagnostic Findings Abdomen/Pelvis CT 06/06/22 12:05 CT SCAN OF THE ABDOMEN AND PELVIS WITHOUT IV CONTRAST CLINICAL HISTORY: Sacral pain. Yeast dermatitis. COMPARISON STUDY: Abdominal CT dated 07/25/2014. Chest CT dated 07/16/2018. TECHNIQUE: CT scan of the abdomen and pelvis is performed from the lung bases to the proximal femora. Images are reviewed in the axial, sagittal, and coronal planes. IV contrast was not administered for this examination as per the referring clinician. Note that the examination was performed in suboptimal fashion without oral and IV contrast. The examination is degraded by large body habitus, and by streak artifact from the body wall abutting the CT gantry. A dose lowering technique was utilized adhering to the principles of ALARA. CT DOSE: 1870.42 mGy.cm FINDINGS: Lung bases: There is evidence of previous aortic valve surgery. The heart is normal in size and without pericardial effusion. There are scattered coronary artery calcifications. Indeterminate airspace opacities are seen at both lung bases with mild architectural distortion and nodular foci. The largest nodules are seen in the right lower lobe on images #53 and #57 and measure up to 6 mm. A small hiatal hernia is noted. Liver: The unenhanced liver is normal in size, contour, and attenuation. There is no intrahepatic biliary ductal dilatation. Gallbladder: Surgically absent noting clips in the gallbladder fossa. Spleen: Normal in size and attenuation. Pancreas: There is marked fatty atrophy of the pancreas. Adrenal glands: A 1.7 cm left adrenal nodule meets CT criteria for a fat- containing adenoma. The right adrenal gland is normal in appearance. Kidneys: The unenhanced kidneys demonstrate cortical atrophy and are without hydronephrosis. A 3 mm nonobstructing calculus is seen on the left. No right renal calculi are identified and there is no ureteral stone. A 1.7 cm exophytic cyst arises from the left upper pole. Abdominal vasculature: There is moderate to advanced atherosclerotic calcification and mild ectasia of the abdominal. 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 Bowel: There is mild sigmoid diverticulosis without CT evidence of acute diverticulitis. No bowel obstruction is seen. The appendix is well-visualized and normal. Peritoneum: There is no intraperitoneal free air or abdominal ascites. There is a fat-containing umbilical hernia. Lymphadenopathy: None. Pelvic viscera: The bladder, uterus, and adnexa are normal as visualized. There is a fat-containing left groin hernia. Skeletal structures: The skeletal structures are osteopenic. The sacrum appears intact. There is moderate lumbosacral spondylosis. No lytic or blastic lesions are seen. IMPRESSION: 1. No acute infectious or inflammatory findings are identified in the abdomen or pelvis. 2. Indeterminate airspace opacities with nodular foci and architectural distortion are present at both lung bases. This represents a significant change from a [address] This could represent an acute and/or chronic infectious/inflammatory process. This could also potentially represent post infectious change such as with prior Covid pneumonia. Developing fibrotic lung disease could appear similar. Clinical correlation will be essential and outpatient follow up with pulmonology is recommended. 3. Sigmoid diverticulosis without CT evidence of acute diverticulitis. 4. Left-sided nephrolithiasis. 5. The sacrum is normal as visualized. 6. Additional findings as above. ACT 112: Negative or not required by law. Electronically signed by: Sterling Londno M.D. 06/06/2022 2:07 PM
[2022-06-09] MEDS: SIMVASTATIN 10 MG TAB PO SCH (20:10)
[2022-06-10] MEDS: HEPARIN SOD 5,000 UNIT/0.5 ML VIAL SQ SCH ×3 (06:22→21:00)
[2022-06-10] MEDS: ACETAMINOPHEN 325 MG TAB PO PRN ×2 (06:25→18:45)
[2022-06-10] MEDS: METOPROLOL SUCC 25MG EXT REL TAB PO SCH (08:14)
[2022-06-10] MEDS: CLOPIDOGREL BISULFATE 75 MG TAB PO SCH (08:14)
[2022-06-10] MEDS: TOPIRAMATE 25 MG TAB PO SCH ×2 (08:14→21:08)
[2022-06-10] MEDS: ASPIRIN 81 MG CHEW PO SCH (08:14)
[2022-06-10] MEDS: MAGNESIUM OXIDE 400 MG TAB PO SCH ×2 (08:14→21:07)
[2022-06-10] MEDS: PANTOprazole 40 MG TAB PO SCH ×2 (08:15→21:07)
[2022-06-10] MEDS: LEVOTHYROXINE SODIUM 25 MCG TABLET PO SCH (08:15)
[2022-06-10] MEDS: FAMOTIDINE 10 MG TABLET PO SCH (08:15)
[2022-06-10] MEDS: FLUTICASONE FUROATE 200MCG 14 PUFFS/INHALER INH SCH (08:15)
[2022-06-10] MEDS: AMIODARONE 200 MG TAB PO SCH (08:15)
[2022-06-10] MEDS: traMADol HCL 50 MG TABLET PO SCH ×2 (08:25→21:06)
[2022-06-10 08:45] LABS: Hematocrit (blood only) 38.9 % (37.0-47.0); Hemoglobin 12.5 g/dl (12.0-16.0); Mean Corpuscular Hemoglobin 31.4 pg (25.0-34.0); Mean Corpuscular Hgb Conc 32.1 g/dL (32.0-36.0); Mean Corpuscular Volume 97.7 fL (80.0-100.0); Mean Platelet Volume 11.8 fL (9.4-12.4); Platelet Count 192 K/uL (130-400); RDW Coefficient of Variation 16.5 % (11.5-14.5); RDW Standard Deviation 59.5 fL (36.4-46.3); Red Blood Count 3.98 M/uL (4.20-5.40); White Blood Count 7.14 K/ul (4.8-10.8)
[2022-06-10 08:58] LABS: BUN Creatinine Ratio 13.4 (10-20); Calcium 9.1 mg/dl (8.5-10.1); Creatinine Clr Calc Pharmacy 50.6 ml/min; Est GFR (African American) 42.4 ml/min; Est GFR (Non-African American) 36.5 ml/min; Potassium 4.1 mmol/L (3.5-5.1)
[2022-06-10] MEDS: ASCORBIC ACID 500 MG TAB PO SCH (13:12)
[2022-06-10] MEDS: FERROUS SULFATE 325 MG TAB PO SCH (13:13)
--- NOTE | 2022-06-10 16:33 | Hospitalist Progress Note ---
Date of Service June 10, 2022 Assessment & Plan (1) Ambulatory dysfunction: (2) Unable to care for self: (3) Obesity: (4) CKD (chronic kidney disease), stage III: (5) CHF (congestive heart failure): (6) COPD (chronic obstructive pulmonary disease): (7) Open wound of buttock: Plan Ambulatory dysfunction Inability to care for self at home Family requesting placement PT/OT, CM following Abnormal CT findings CT ABD/pelvis negative for acute abdominal findings However notes Indeterminate airspace opacities with nodular foci and architectural distortion are present at both lung bases. This represents a significant change from a [address] This could represent an acute and/or chronic infectious/inflammatory process. This could also potentially represent post infectious change such as with prior Covid pneumonia. Developing fibrotic lung disease could appear similar. Patient saturating well on room air, no pulmonary complaints Consider outpatient follow-up with pulmonology Sacral wound Appears to be healing Wound care nurse consulted, reposition Q2H CKD Stage III Creatinine 1.28, at baseline Paroxysmal atrial fibrillation Rhythm controlled on amiodarone, rate controlled on metoprolol Not anticoagulated due to history of GI bleeding Chronic diastolic CHF due to valvular disease S/p TAVR Echo 03/2022-EF > 70%, grade 1 diastolic dysfunction, normal gradient for bioprosthetic aortic valve Volume status appears euvolemic Continue home dose furosemide, Plavix Hypothyroidism Continue levothyroxine History of migraines On topiramate for prophylaxis DVT PROPHYLAXIS SQ heparin Dispo -awaiting placement, CM following -attempted peer to peer call today; awaiting return call. A total of 25 minutes were spent with greater than 50% of that time face to face with the patient, personally reviewing all current laboratories, imaging studies, past medication reconciliation, outpatient chart review, and discussion with specialists to collaborate care for the patient with attending and util ization of translation services. Please see attending documentation for corrections and/or additions. Admission and Anticipated Discharge Date Admission Date: June 07, 2022 Supervising Physician Co-Signing Physician Notes Patient is seen and examined at bedside. States feeling well today. Denies any chest pain, shortness of breath, dizziness, nausea, abdominal pain. Denies any pain/discharge of pressure wounds of sacral region. Waiting for placement. On exam patient is morbidly obese, no apparent distress, normocephalic/atraumatic, EOMI, normal breath sounds, clear to auscultation, S1-S2, no murmur, +. MS, abdomen soft, nontender, normal bowel sounds, alert, awake, oriented, grossly no focal deficits. Ambulatory dysfunction, sacral wound. Continue wound care. Plan to discharge to rehab when accepted. I personally reviewed the labs and records. Patient is interviewed and examined at bedside. Patient's care is coordinated with Randee GONZALES. Please refer to the documentation above for details of patient's presentation and for discussion of other issues. Subjective Seen and examined in 360 in follow-up of sacral wound and need for placement. Feeling well today with exception of migraine headache. Feels that sacral wound is much improved and has been able to sit upright in bedside chair for longer periods throughout the day. Denies any fever, chills, chest pain, shortness breath, nausea, vomiting, dumping, dysuria, diarrhea or constipation. Review of Systems Review of Systems: At least ten systems reviewed and negative except as noted in the HPI. Physical Exam Physical Exam: Gen: WD/WN, NAD, lying in bed, A&Ox3, morbidly obese HEENT: Normocephalic, atraumatic, conjunctivae moist, sclerae anicteric, mucous membranes moist Lung: Clear to Auscultation bilaterally, no wheezes/rales/rhonchi Heart: Regular rate, regular rhythm, no murmurs, rubs, or gallops Abdomen: Soft, NT, ND +BS x 4 Extremities: no edema Skin: Warm, no rash, + sacral wound healing, without erythema, pain or drainage Results & Data Results & Data ([facility]) Vital Signs (Past 12 Hours) Vital Signs Temp Pulse Resp BP Pulse Ox O2 Del Method 06/10/22 14:53 36.5 C 66 16 112/59 L 92 Room Air 06/10/22 07:30 36.6 C 63 18 107/68 92 Room Air Laboratory Results Short CBC 06/10/22 Range/Units 08:10 WBC 7.14 (4.8-10.8) K/ul Hgb 12.5 (12.0-16.0) g/dl Hct 38.9 (37.0-47.0) % Plt Count 192 (130-400) K/uL BMP 06/10/22 08:10 Sodium 138 Potassium 4.1 Chloride 109 H Carbon Dioxide 26 BUN 19 Creatinine 1.42 H Glucose 110 H Calcium 9.1 Diagnostic Findings Abdomen/Pelvis CT 06/06/22 12:05 CT SCAN OF THE ABDOMEN AND PELVIS WITHOUT IV CONTRAST CLINICAL HISTORY: Sacral pain. Yeast dermatitis. COMPARISON STUDY: Abdominal CT dated 07/25/2014. Chest CT dated 07/16/2018. TECHNIQUE: CT scan of the abdomen and pelvis is performed from the lung bases to the proximal femora. Images are reviewed in the axial, sagittal, and coronal planes. IV contrast was not administered for this examination as per the referring clinician. Note that the examination was performed in suboptimal fashion without oral and IV contrast. The examination is degraded by large body habitus, and by streak artifact from the body wall abutting the CT gantry. A dose lowering technique was utilized adhering to the principles of ALARA. CT DOSE: 1870.42 mGy.cm FINDINGS: Lung bases: There is evidence of previous aortic valve surgery. The heart is n ormal in size and without pericardial effusion. There are scattered coronary artery calcifications. Indeterminate airspace opacities are seen at both lung bases with mild architectural distortion and nodular foci. The largest nodules are seen in the right lower lobe on images #53 and #57 and measure up to 6 mm. A small hiatal hernia is noted. Liver: The unenhanced liver is normal in size, contour, and attenuation. There is no intrahepatic biliary ductal dilatation. Gallbladder: Surgically absent noting clips in the gallbladder fossa. Spleen: Normal in size and attenuation. Pancreas: There is marked fatty atrophy of the pancreas. Adrenal glands: A 1.7 cm left adrenal nodule meets CT criteria for a fat- containing adenoma. The right adrenal gland is normal in appearance. Kidneys: The unenhanced kidneys demonstrate cortical atrophy and are without hydronephrosis. A 3 mm nonobstructing calculus is seen on the left. No right renal calculi are identified and there is no ureteral stone. A 1.7 cm exophytic cyst arises from the left upper pole. Abdominal vasculature: There is moderate to advanced atherosclerotic calcification and mild ectasia of the abdominal. 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 Bowel: There is mild sigmoid diverticulosis without CT evidence of acute diverticulitis. No bowel obstruction is seen. The appendix is well-visualized and normal. Peritoneum: There is no intraperitoneal free air or abdominal ascites. There is a fat-containing umbilical hernia. Lymphadenopathy: None. Pelvic viscera: The bladder, uterus, and adnexa are normal as visualized. There is a fat-containing left groin hernia. Skeletal structures: The skeletal structures are osteopenic. The sacrum appears intact. There is moderate lumbosacral spondylosis. No lytic or blastic lesions are seen. IMPRESSION: 1. No acute infectious or inflammatory findings are identified in the abdomen or pelvis. 2. Indeterminate airspace opacities with nodular foci and architectural distortion are present at both lung bases. This represents a significant change from a [address] This could represent an acute and/or chronic infectious/inflammatory process. This could also potentially represent post infectious change such as with prior Covid pneumonia. Developing fibrotic lung disease could appear similar. Clinical correlation will be essential and outpatient follow up with pulmonology is recommended. 3. Sigmoid diverticulosis without CT evidence of acute diverticulitis. 4. Left-sided nephrolithiasis. 5. The sacrum is normal as visualized. 6. Additional findings as above. ACT 112: Negative or not required by law. Electronically signed by: Sterling London M.D. 06/06/2022 2:07 PM
[2022-06-10] MEDS: SIMVASTATIN 10 MG TAB PO SCH (21:08)
[2022-06-11] MEDS: HEPARIN SOD 5,000 UNIT/0.5 ML VIAL SQ SCH ×4 (06:16→23:50)
[2022-06-11] MEDS: ACETAMINOPHEN 325 MG TAB PO PRN (08:01)
[2022-06-11] MEDS: ASPIRIN 81 MG CHEW PO SCH (10:29)
[2022-06-11] MEDS: AMIODARONE 200 MG TAB PO SCH (10:29)
[2022-06-11] MEDS: MAGNESIUM OXIDE 400 MG TAB PO SCH ×2 (10:29→20:23)
[2022-06-11] MEDS: FAMOTIDINE 10 MG TABLET PO SCH (10:29)
[2022-06-11] MEDS: PANTOprazole 40 MG TAB PO SCH ×2 (10:30→20:23)
[2022-06-11] MEDS: METOPROLOL SUCC 25MG EXT REL TAB PO SCH (10:30)
[2022-06-11] MEDS: CLOPIDOGREL BISULFATE 75 MG TAB PO SCH (10:31)
[2022-06-11] MEDS: LEVOTHYROXINE SODIUM 25 MCG TABLET PO SCH (10:31)
[2022-06-11] MEDS: TOPIRAMATE 25 MG TAB PO SCH ×2 (10:31→20:24)
[2022-06-11] MEDS: FLUTICASONE FUROATE 200MCG 14 PUFFS/INHALER INH SCH (10:31)
[2022-06-11] MEDS: traMADol HCL 50 MG TABLET PO SCH ×2 (10:32→20:23)
[2022-06-11] MEDS: ASCORBIC ACID 500 MG TAB PO SCH (12:19)
[2022-06-11] MEDS: FERROUS SULFATE 325 MG TAB PO SCH (12:20)
--- NOTE | 2022-06-11 16:17 | Hospitalist Progress Note ---
Date of Service June 11, 2022 Assessment & Plan (1) Ambulatory dysfunction: (2) Unable to care for self: (3) Obesity: (4) CKD (chronic kidney disease), stage III: (5) CHF (congestive heart failure): (6) COPD (chronic obstructive pulmonary disease): (7) Open wound of buttock: Plan Ambulatory dysfunction Inability to care for self at home Family requesting placement PT/OT, CM following Abnormal CT findings CT ABD/pelvis negative for acute abdominal findings However notes Indeterminate airspace opacities with nodular foci and architectural distortion are present at both lung bases. This represents a significant change from a [address] This could represent an acute and/or chronic infectious/inflammatory process. This could also potentially represent post infectious change such as with prior Covid pneumonia. Developing fibrotic lung disease could appear similar. Patient saturating well on room air, no pulmonary complaints Consider outpatient follow-up with pulmonology Sacral wound Appears to be healing Wound care nurse consulted, reposition Q2H CKD Stage III Creatinine 1.28, at baseline Paroxysmal atrial fibrillation Rhythm controlled on amiodarone, rate controlled on metoprolol Not anticoagulated due to history of GI bleeding Chronic diastolic CHF due to valvular disease S/p TAVR Echo 03/2022-EF > 70%, grade 1 diastolic dysfunction, normal gradient for bioprosthetic aortic valve Volume status appears euvolemic Continue home dose furosemide, Plavix Hypothyroidism Continue levothyroxine History of migraines On topiramate for prophylaxis DVT PROPHYLAXIS SQ heparin Dispo -awaiting placement, CM reached out to me for P2P/requested her to reach out to Randee GONZALES as she was following the patient at the time; kayleighf communicated to Randee GONZALES as well as who did call the number and didn't get call back per her sign out. Admission and Anticipated Discharge Date Admission Date: June 07, 2022 Subjective Seen and examined in 360 in follow-up of sacral wound and need for placement. Feeling well today /eating ok and moving bowels ok. Feels that sacral wound is much improved and has been able to sit upright in bedside chair for longer periods throughout the day. Denies any fever, chills, chest pain, shortness breath, nausea, vomiting, dumping, dysuria, diarrhea or constipation. Physical Exam Physical Exam: Gen: WD/WN, NAD, lying in bed, A&Ox3, morbidly obese HEENT: Normocephalic, atraumatic, conjunctivae moist, sclerae anicteric, mucous membranes moist Lung: Clear to Auscultation bilaterally, no wheezes/rales/rhonchi Heart: Regular rate, regular rhythm, no murmurs, rubs, or gallops Abdomen: Soft, NT, ND +BS x 4 Extremities: no edema Skin: Warm, no rash, + sacral wound healing, without erythema, pain or drainage Results & Data Results & Data ([facility]) Vital Signs (Past 12 Hours) Vital Signs Temp Pulse Resp BP Pulse Ox O2 Del Method 06/11/22 14:43 36.7 C 62 16 102/63 96 Room Air 06/11/22 08:00 Room Air 06/11/22 10:28 70 108/70 06/11/22 08:04 62 111/70 94 Room Air 06/11/22 07:13 36.5 C 66 18 96/58 L 94 Room Air
[2022-06-11] MEDS: SIMVASTATIN 10 MG TAB PO SCH (20:23)
[2022-06-12] MEDS: ACETAMINOPHEN 325 MG TAB PO PRN ×2 (07:21→19:22)
[2022-06-12] MEDS: TROLAMINE SALICYLATE 10% CRM 255 APPLN/85 GM TUBE EXT PRN (07:24)
[2022-06-12] MEDS: traMADol HCL 50 MG TABLET PO SCH ×2 (09:19→20:02)
[2022-06-12] MEDS: FLUTICASONE FUROATE 200MCG 14 PUFFS/INHALER INH SCH (09:20)
[2022-06-12] MEDS: LEVOTHYROXINE SODIUM 25 MCG TABLET PO SCH (09:20)
[2022-06-12] MEDS: TOPIRAMATE 25 MG TAB PO SCH ×2 (09:20→20:02)
[2022-06-12] MEDS: METOPROLOL SUCC 25MG EXT REL TAB PO SCH (09:20)
[2022-06-12] MEDS: ASPIRIN 81 MG CHEW PO SCH (09:20)
[2022-06-12] MEDS: CLOPIDOGREL BISULFATE 75 MG TAB PO SCH (09:21)
[2022-06-12] MEDS: FAMOTIDINE 10 MG TABLET PO SCH (09:21)
[2022-06-12] MEDS: AMIODARONE 200 MG TAB PO SCH (09:21)
[2022-06-12] MEDS: PANTOprazole 40 MG TAB PO SCH ×2 (09:21→20:02)
[2022-06-12] MEDS: MAGNESIUM OXIDE 400 MG TAB PO SCH ×2 (09:22→20:02)
[2022-06-12] MEDS: ASCORBIC ACID 500 MG TAB PO SCH (12:02)
[2022-06-12] MEDS: FERROUS SULFATE 325 MG TAB PO SCH (12:02)
[2022-06-12] MEDS: HEPARIN SOD 5,000 UNIT/0.5 ML VIAL SQ SCH ×3 (13:08→20:52)
--- NOTE | 2022-06-12 14:29 | XRay Report ---
SINGLE VIEW CHEST CLINICAL HISTORY: Dyspnea. Atypical chest pain FINDINGS: An AP, portable, upright chest radiograph is compared to study dated 04/13/2022 and correla jorge with chest CT dated 07/16/2018 as well as abdominal CT dated 06/06/2022. The heart is enlarged noti ng atherosclerotic calcification of the thoracic aorta. There is evidence of previous cardiac valve s urgery. The pulmonary vasculature is noncontrast. Fibrotic change and parenchymal scarring is again s een throughout both lungs. There is no evidence of superimposed airspace consolidation or large pleur al effusion. No pneumothorax is seen. The skeletal structures are osteopenic. The bony thorax is yamileth sly intact. Cholecystectomy clips are noted in the right upper quadrant. IMPRESSION: 1. Fibrotic change and parenchymal scarring in both lungs is similar to recent prior studies but has significantly progressed as compared to a [address] This could represent progression of chronic lung disease, or possibly postinfectious change as could be seen with previous Covid pneumonia. Clini joel correlation will be essential. Nonemergent/outpatient follow-up with pulmonology is recommended. 2. There is no superimposed airspace consolidation or large pleural effusion. 3. Cardiomegaly without radiographic evidence of congestive failure. ACT 112: Negative or not required by law. Electronically signed by: Sterling London M.D. 06/12/2022 2:26 PM
--- NOTE | 2022-06-12 16:51 | Hospitalist Progress Note ---
Date of Service June 12, 2022 Assessment & Plan (1) Ambulatory dysfunction: (2) Unable to care for self: (3) Obesity: (4) CKD (chronic kidney disease), stage III: (5) CHF (congestive heart failure): (6) COPD (chronic obstructive pulmonary disease): (7) Open wound of buttock: Plan Ambulatory dysfunction Inability to care for self at home Family requesting placement PT/OT, CM following Abnormal CT findings CT ABD/pelvis negative for acute abdominal findings However notes Indeterminate airspace opacities with nodular foci and architectural distortion are present at both lung bases. This represents a significant change from a [address] This could represent an acute and/or chronic infectious/inflammatory process. This could also potentially represent post infectious change such as with prior Covid pneumonia. Developing fibrotic lung disease could appear similar. Patient saturating well on room air, no pulmonary complaints Consider outpatient follow-up with pulmonology Sacral wound Appears to be healing Wound care nurse consulted, reposition Q2H CKD Stage III Creatinine 1.28, at baseline Paroxysmal atrial fibrillation Rhythm controlled on amiodarone, rate controlled on metoprolol Not anticoagulated due to history of GI bleeding Chronic diastolic CHF due to valvular disease S/p TAVR Echo 03/2022-EF > 70%, grade 1 diastolic dysfunction, normal gradient for bioprosthetic aortic valve Volume status appears euvolemic Continue home dose furosemide, Plavix Hypothyroidism Continue levothyroxine History of migraines On topiramate for prophylaxis DVT PROPHYLAXIS SQ heparin Dispo -awaiting placement, CM reached out to me for P2P/requested her to reach out to Randee GONZALES as she was following the patient at the time; irish communicated to Randee GONZALES as well as who did call the number and didn't get call back per her sign out. Admission and Anticipated Discharge Date Admission Date: June 07, 2022 Subjective Seen and examined in 360 in follow-up of sacral wound and need for placement. Feeling well today /eating ok and moving bowels ok. Feels that sacral wound is much improved and has been able to sit upright in bedside chair for longer periods throughout the day. Denies any fever, chills, chest pain, shortness breath, nausea, vomiting, dumping, dysuria, diarrhea or constipation. Had chest pain during positional change today, trops/cxr/ekg wnl. Physical Exam Physical Exam: Gen: WD/WN, NAD, lying in bed, A&Ox3, morbidly obese HEENT: Normocephalic, atraumatic, conjunctivae moist, sclerae anicteric, mucous membranes moist Lung: Clear to Auscultation bilaterally, no wheezes/rales/rhonchi Heart: Regular rate, regular rhythm, no murmurs, rubs, or gallops Abdomen: Soft, NT, ND +BS x 4 Extremities: no edema Skin: Warm, no rash, + sacral wound healing, without erythema, pain or drainage Results & Data Results & Data ([facility]) Vital Signs (Past 12 Hours) Vital Signs Temp Pulse Resp BP Pulse Ox O2 Del Method 06/12/22 14:56 36.3 C L 56 L 16 123/66 95 Room Air 06/12/22 07:20 Room Air 06/12/22 09:15 73 111/69 06/12/22 06:59 36.7 C 59 L 16 102/66 95 Room Air
[2022-06-12] MEDS: SIMVASTATIN 10 MG TAB PO SCH (20:02)
[2022-06-13] MEDS: ACETAMINOPHEN 325 MG TAB PO PRN ×2 (08:20→19:22)
[2022-06-13] MEDS: METOPROLOL SUCC 25MG EXT REL TAB PO SCH (08:21)
[2022-06-13] MEDS: TOPIRAMATE 25 MG TAB PO SCH ×2 (08:21→19:58)
[2022-06-13] MEDS: MAGNESIUM OXIDE 400 MG TAB PO SCH ×2 (08:22→19:58)
[2022-06-13] MEDS: AMIODARONE 200 MG TAB PO SCH (08:22)
[2022-06-13] MEDS: ASPIRIN 81 MG CHEW PO SCH (08:22)
[2022-06-13] MEDS: FAMOTIDINE 10 MG TABLET PO SCH (08:23)
[2022-06-13] MEDS: CLOPIDOGREL BISULFATE 75 MG TAB PO SCH (08:23)
[2022-06-13] MEDS: PANTOprazole 40 MG TAB PO SCH ×2 (08:23→19:58)
[2022-06-13] MEDS: LEVOTHYROXINE SODIUM 25 MCG TABLET PO SCH (08:23)
[2022-06-13] MEDS: FLUTICASONE FUROATE 200MCG 14 PUFFS/INHALER INH SCH (08:23)
[2022-06-13] MEDS: traMADol HCL 50 MG TABLET PO SCH ×2 (08:27→19:58)
--- NOTE | 2022-06-13 08:54 | Electrocardiogram Report ---
Test Reason : Blood Pressure : / mmHG Vent. Rate : 060 BPM Atrial Rate : 060 BPM P-R Int : 164 ms QRS Dur : 098 ms QT Int : 416 ms P-R-T Axes : 025 018 053 degrees QTc Int : 416 ms Normal sinus rhythm Normal ECG When compared with ECG of 13-APR-2022 10:36, No significant change was found Confirmed by Cy Moreau ([id number]) on 06/13/2022 8:54:11 AM Referred By: Chana Stacy Confirmed By:Keenan Moreau
[2022-06-13] MEDS: FERROUS SULFATE 325 MG TAB PO SCH (11:53)
[2022-06-13] MEDS: ASCORBIC ACID 500 MG TAB PO SCH (11:53)
[2022-06-13] MEDS: HEPARIN SOD 5,000 UNIT/0.5 ML VIAL SQ SCH ×3 (13:16→21:37)
--- NOTE | 2022-06-13 16:28 | Hospitalist Progress Note ---
Date of Service June 13, 2022 Assessment & Plan (1) Ambulatory dysfunction: (2) Unable to care for self: (3) Obesity: (4) CKD (chronic kidney disease), stage III: (5) CHF (congestive heart failure): (6) COPD (chronic obstructive pulmonary disease): (7) Open wound of buttock: Plan Ambulatory dysfunction Inability to care for self at home Family requesting placement PT/OT, CM following Abnormal CT findings CT ABD/pelvis negative for acute abdominal findings However notes Indeterminate airspace opacities with nodular foci and architectural distortion are present at both lung bases. This represents a significant change from a [address] This could represent an acute and/or chronic infectious/inflammatory process. This could also potentially represent post infectious change such as with prior Covid pneumonia. Developing fibrotic lung disease could appear similar. Patient saturating well on room air, no pulmonary complaints Consider outpatient follow-up with pulmonology Sacral wound Appears to be healing Wound care nurse consulted, reposition Q2H CKD Stage III Creatinine 1.28, at baseline Paroxysmal atrial fibrillation Rhythm controlled on amiodarone, rate controlled on metoprolol Not anticoagulated due to history of GI bleeding Chronic diastolic CHF due to valvular disease S/p TAVR Echo 03/2022-EF > 70%, grade 1 diastolic dysfunction, normal gradient for bioprosthetic aortic valve Volume status appears euvolemic Continue home dose furosemide, Plavix Hypothyroidism Continue levothyroxine History of migraines On topiramate for prophylaxis DVT PROPHYLAXIS SQ heparin Dispo -awaiting placement, CM reached out to me for P2P/requested her to reach out to Randee GONZALES as she was following the patient at the time; nevalef communicated to Randee GONZALES as well as who did call the number and didn't get call back per her sign out. Admission and Anticipated Discharge Date Admission Date: June 07, 2022 Subjective Seen and examined in 360 in follow-up of sacral wound and need for placement. Feeling well today /eating ok and moving bowels ok. Feels that sacral wound is much improved and has been able to sit upright in bedside chair for longer periods throughout the day. Denies any fever, chills, chest pain, shortness breath, nausea, vomiting, dumping, dysuria, diarrhea or constipation. no chest pain today. Physical Exam Physical Exam: Gen: WD/WN, NAD, lying in bed, A&Ox3, morbidly obese HEENT: Normocephalic, atraumatic, conjunctivae moist, sclerae anicteric, mucous membranes moist Lung: Clear to Auscultation bilaterally, no wheezes/rales/rhonchi Heart: Regular rate, regular rhythm, no murmurs, rubs, or gallops Abdomen: Soft, NT, ND +BS x 4 Extremities: no edema Skin: Warm, no rash, + sacral wound healing, without erythema, pain or drainage Results & Data Results & Data ([facility]) Vital Signs (Past 12 Hours) Vital Signs Temp Pulse Resp BP Pulse Ox O2 Del Method 06/13/22 15:38 36.5 C 56 L 18 114/69 94 Room Air 06/13/22 07:18 36.4 C L 62 16 102/68 95 Room Air
[2022-06-13] MEDS: SIMVASTATIN 10 MG TAB PO SCH (19:58)
[2022-06-14] MEDS: ASPIRIN 81 MG CHEW PO SCH (08:23)
[2022-06-14] MEDS: MAGNESIUM OXIDE 400 MG TAB PO SCH ×2 (08:23→19:44)
[2022-06-14] MEDS: TOPIRAMATE 25 MG TAB PO SCH ×2 (08:24→19:45)
[2022-06-14] MEDS: METOPROLOL SUCC 25MG EXT REL TAB PO SCH (08:24)
[2022-06-14] MEDS: FAMOTIDINE 10 MG TABLET PO SCH (08:25)
[2022-06-14] MEDS: AMIODARONE 200 MG TAB PO SCH (08:26)
[2022-06-14] MEDS: CLOPIDOGREL BISULFATE 75 MG TAB PO SCH (08:26)
[2022-06-14] MEDS: PANTOprazole 40 MG TAB PO SCH ×2 (08:26→19:45)
[2022-06-14] MEDS: FLUTICASONE FUROATE 200MCG 14 PUFFS/INHALER INH SCH (08:27)
[2022-06-14] MEDS: LEVOTHYROXINE SODIUM 25 MCG TABLET PO SCH (08:28)
[2022-06-14] MEDS: traMADol HCL 50 MG TABLET PO SCH ×2 (08:37→19:45)
[2022-06-14] MEDS: ACETAMINOPHEN 325 MG TAB PO PRN ×2 (10:28→19:46)
[2022-06-14] MEDS: ASCORBIC ACID 500 MG TAB PO SCH (11:32)
[2022-06-14] MEDS: FERROUS SULFATE 325 MG TAB PO SCH (11:32)
[2022-06-14] MEDS: HEPARIN SOD 5,000 UNIT/0.5 ML VIAL SQ SCH ×2 (13:25→21:27)
--- NOTE | 2022-06-14 18:17 | Hospitalist Progress Note ---
Date of Service June 14, 2022 Assessment & Plan (1) Ambulatory dysfunction: (2) Unable to care for self: (3) Obesity: (4) CKD (chronic kidney disease), stage III: (5) CHF (congestive heart failure): (6) COPD (chronic obstructive pulmonary disease): (7) Open wound of buttock: Plan Ambulatory dysfunction Inability to care for self at home Family requesting placement PT/OT, CM following Abnormal CT findings CT ABD/pelvis negative for acute abdominal findings However notes Indeterminate airspace opacities with nodular foci and architectural distortion are present at both lung bases. This represents a significant change from a [address] This could represent an acute and/or chronic infectious/inflammatory process. This could also potentially represent post infectious change such as with prior Covid pneumonia. Developing fibrotic lung disease could appear similar. Patient saturating well on room air, no pulmonary complaints Consider outpatient follow-up with pulmonology Sacral wound Appears to be healing Wound care nurse consulted, reposition Q2H CKD Stage III Creatinine 1.28, at baseline Paroxysmal atrial fibrillation Rhythm controlled on amiodarone, rate controlled on metoprolol Not anticoagulated due to history of GI bleeding Chronic diastolic CHF due to valvular disease S/p TAVR Echo 03/2022-EF > 70%, grade 1 diastolic dysfunction, normal gradient for bioprosthetic aortic valve Volume status appears euvolemic Continue home dose furosemide, Plavix Hypothyroidism Continue levothyroxine History of migraines On topiramate for prophylaxis DVT PROPHYLAXIS SQ heparin Dispo -awaiting placement, P2P completed, insurance approved, cm to assist w/ dc plan. Admission and Anticipated Discharge Date Admission Date: June 07, 2022 Subjective Seen and examined in 360 in follow-up of sacral wound and need for placement. Feeling well today /eating ok and moving bowels ok. Feels that sacral wound is much improved and has been able to sit upright in bedside chair for longer periods throughout the day. Denies any fever, chills, chest pain, shortness breath, nausea, vomiting, dumping, dysuria, diarrhea or constipation. no chest pain today. P2P done today, insurance approved. Physical Exam Physical Exam: Gen: WD/WN, NAD, lying in bed, A&Ox3, morbidly obese HEENT: Normocephalic, atraumatic, conjunctivae moist, sclerae anicteric, mucous membranes moist Lung: Clear to Auscultation bilaterally, no wheezes/rales/rhonchi Heart: Regular rate, regular rhythm, no murmurs, rubs, or gallops Abdomen: Soft, NT, ND +BS x 4 Extremities: no edema Skin: Warm, no rash, + sacral wound healing, without erythema, pain or drainage Results & Data Results & [facility] ([facility]) Vital Signs (Past 12 Hours) Vital Signs Temp Pulse Pulse Resp BP Pulse Ox O2 Del Method 06/14/22 15:23 36.7 C 66 18 105/64 94 Room Air 06/14/22 14:31 36.5 C 50 L 16 100/60 94 Room Air 06/14/22 08:21 63 107/51 L 06/14/22 07:12 36.4 C L 59 L 16 120/74 96 Room Air
[2022-06-14] MEDS: SIMVASTATIN 10 MG TAB PO SCH (19:45)
[2022-06-15] MEDS: HEPARIN SOD 5,000 UNIT/0.5 ML VIAL SQ SCH ×2 (05:33→12:40)
[2022-06-15] MEDS: TOPIRAMATE 25 MG TAB PO SCH (08:22)
[2022-06-15] MEDS: AMIODARONE 200 MG TAB PO SCH (08:22)
[2022-06-15] MEDS: MAGNESIUM OXIDE 400 MG TAB PO SCH (08:22)
[2022-06-15] MEDS: LEVOTHYROXINE SODIUM 25 MCG TABLET PO SCH (08:22)
[2022-06-15] MEDS: ASPIRIN 81 MG CHEW PO SCH (08:23)
[2022-06-15] MEDS: FAMOTIDINE 10 MG TABLET PO SCH (08:23)
[2022-06-15] MEDS: CLOPIDOGREL BISULFATE 75 MG TAB PO SCH (08:23)
[2022-06-15] MEDS: METOPROLOL SUCC 25MG EXT REL TAB PO SCH (08:23)
[2022-06-15] MEDS: FLUTICASONE FUROATE 200MCG 14 PUFFS/INHALER INH SCH (08:24)
[2022-06-15] MEDS: traMADol HCL 50 MG TABLET PO SCH (09:10)
[2022-06-15] MEDS: PANTOprazole 40 MG TAB PO SCH (10:38)
[2022-06-15] MEDS: ACETAMINOPHEN 325 MG TAB PO PRN (11:22)
[2022-06-15] MEDS: ASCORBIC ACID 500 MG TAB PO SCH (12:39)
[2022-06-15] MEDS: FERROUS SULFATE 325 MG TAB PO SCH (12:39)
--- NOTE | 2022-06-15 12:49 | Discharge Summary ---
Date of Service June 15, 2022 Admission HPI Per Admitting Provider 71-year-old woman with history of COPD, morbid obesity, GERD, CHF, proximal A- fib, dyslipidemia, TAVR, CKD 3 and other medical problems who was brought in for placement. History provided by patient, brother and [id number] who was at bedside as well as sister over the phone. Patient has not been moving around for months now and sister had been taking care of her. Patient reports ambulatory dysfunction that has worsened over time. Reports knee has osteoarthritis and difficulty moving around due to that. Sister who had been taking care of her is getting surgery at [facility]. Patient was seen by PCPs office and sent in to the ER. Brother and [id number] at bedside states that patient is unable to care for self at this time, worsened by her ambulatory dysfunction and requesting for placement. Patient denies any chest pain, cough, shortness of breath at rest. Denies any headache, dizziness Denies any nausea, vomiting, abdominal pain, diarrhea constipation Denies dysuria, frequency or urgency Reports buttock pain from old wound. Denies fevers, chills Denies melena, hematochezia or hematuria Denied depression, suicidal or homicidal ideation Admission Exam Per Admitting Provider Constitutional: + well hydrated and + obese; no acute distress Eyes: PERRL, conjunctivae normal, anicteric sclerae ENMT: external ear and nose normal, oropharynx normal Respiratory: normal respiratory effort; no respiratory distress Auscultation: + diminished lung sounds; no crackles and no wheezes Cardiovascular: Rate/Rhythm: regular rate and regular rhythm S1-S2 Gastrointestinal (Abdomen): normal bowel sounds, soft, nontender, no hepatosplenomegaly Musculoskeletal: Chronic stasis changes in legs Skin: Small scab over a small (<2cm) right buttock near cleft that is tender. No drainage, erythema Neurologic: PERRL, EOMI, accommodation nl, no face palsy, no dysarthria Psychiatric: A+Ox3, euthymic affect Principal Diagnosis Ambulatory dysfunction Sacral wound Possible lung fibrosis: Abnormal CT finding with indeterminate airspace opacities with nodular foci and architectural distortion at both lung bases/significant change from [address] Discharge Exam Gen: WD/WN, NAD, lying in bed, A&Ox3, morbidly obese HEENT: Normocephalic, atraumatic, conjunctivae moist, sclerae anicteric, mucous membranes moist Lung: Clear to Auscultation bilaterally, no wheezes/rales/rhonchi Heart: Regular rate, regular rhythm, no murmurs, rubs, or gallops Abdomen: Soft, NT, ND +BS x 4 Extremities: no edema Skin: Warm, no rash, + sacral wound healing, without erythema, pain or drainage Discharge Data Allergies Allergy/AdvReac Type Severity Reaction Status Date / Time dog dander Allergy Intermediate Sneezing Verified 03/20/19 08:57 egg Allergy SPECIFIC-DUCK Verified 03/20/19 08:57 EGG CAUSED FACIAL SWELLING pollen extracts Allergy HAYFEVER Verified 03/20/19 08:57 methylprednisolone AdvReac Unknown Verified 03/20/19 08:57 [From Depo-Medrol] Consultations 06/06/22 16:03 ED Decision to Admit Stat Ordered Studies 06/06/22 12:05 CT abd pelvis wo con Stat Hospital Course (1) Ambulatory dysfunction: (2) Unable to care for self: (3) Obesity: (4) CKD (chronic kidney disease), stage III: (5) CHF (congestive heart failure): (6) COPD (chronic obstructive pulmonary disease): (7) Open wound of buttock: Plan 71 yo F was managed for the following: Ambulatory dysfunction Inability to care for self at home Family requesting placement PT/OT, CM following Abnormal CT findings CT ABD/pelvis negative for acute abdominal findings However notes Indeterminate airspace opacities with nodular foci and architectural distortion are present at both lung bases. This represents a significant change from a [address] This could represent an acute and/or chronic infectious/inflammatory process. This could also potentially represent post infectious change such as with prior Covid pneumonia. Developing fibrotic lung disease could appear similar. Patient saturating well on room air, no pulmonary complaints Consider outpatient follow-up with pulmonology Sacral wound Appears to be healing Wound care nurse consulted, reposition Q2H , f/u w/ wound care. CKD Stage III Creatinine 1.28, at baseline Paroxysmal atrial fibrillation Rhythm controlled on amiodarone, rate controlled on metoprolol Not anticoagulated due to history of GI bleeding Chronic diastolic CHF due to valvular disease S/p TAVR Echo 03/2022-EF > 70%, grade 1 diastolic dysfunction, normal gradient for bioprosthetic aortic valve Volume status appears euvolemic Continue home dose furosemide, Plavix Hypothyroidism Continue levothyroxine History of migraines On topiramate for prophylaxis DVT PROPHYLAXIS SQ heparin Patient being discharged to SNF with following instruction at the point of discharge: Follow-up with your primary care physician within a week time and likely you will need labs CBC/CMP. For your abnormal CT scan of the abdomen pelvis showing "Abnormal CT finding with indeterminate airspace opacities with nodular foci and architectural distortion at both lung bases/significant change from [address]" , you will need to establish and follow up with your Pulmonology doctor. For sacral wound, continue to wound care and follow wound care nurse. Take your medications as prescribed. Home Health Attestation I certify that this patient is under my care and that I, or a physicians assistant professor of music working with me, had a face to-face encounter that meets the home health [id number] encounter requirements with this patient. The encounter with the patient was in whole, or in part, for the following medical condition, which is the primary reason for home health care (list medic al condition): I certify that, based on my findings, the following services are medically necessary home health services: My clinical findings support the need for the above services because: Further, I certify that my clinical findings support that this patient is homebound (i.e. absences from home require considerable and taxing effort and are for medical reasons or yarsani services or infrequently or of short duration when for other reasons) because: Certification for Home Health Services: Based on the above findings, I certify that this patient is confined to the home and needs intermittent group home care, physical therapy and/or speech therapy or continues to need occupational therapy. The patient is under my care, and I have initiated the establishment of the plan of care. This patient will be followed by a physician who will periodically review the plan of care. Total Time Total Time Spent Total Time Spent (In Minutes): 45 Discharge Plan Discharge Items Patient Disposition: [facility] Reason For Visit: INABILITY TO CARE AT HOME. PLACEMENT Discharge Diagnosis: Ambulatory dysfunction Sacral wound Possible lung fibrosis: Abnormal CT finding with indeterminate airspace opacities with nodular foci and architectural distortion at both lung bases/significant change from [address] Activity: Resume your previous activity Non-emergency contact: Primary Care Provider Call non-emergency contact if: you have any medication questions, your symptoms worsen and your temperature is above 101 Follow-up/Referrals: Chana Stacy PA-C [Primary Care Provider] - Diet: Heart Healthy and Low Sodium (2gm) Addtl Attending Provider Instructions: Follow-up with your primary care physician within a week time and likely you will need labs CBC/CMP. For your abnormal CT scan of the abdomen pelvis showing "Abnormal CT finding with indeterminate airspace opacities with nodular foci and architectural d istortion at both lung bases/significant change from [address]" , you will need to establish and follow up with your Pulmonology doctor. For sacral wound, continue to wound care and follow wound care nurse. Take your medications as prescribed. Pending Studies at Discharge: No Stand-Alone Forms: My [facility] Skilled Items Patient informed of condition?: Yes DNR: Yes Discharge Level of Care: Skilled Communicable Disease: No Discharge Prognosis: Stable Lines: None Urinary Catheter: No Medications and DC Order Prescriptions: Continued pantoprazole 40 mg Tablet,Delayed Release (Dr/Ec) 40 mg PO BID albuterol sulfate [Ventolin HFA] 90 mcg/actuation Hfa Aerosol Inhaler 2 puff INHALATION QID PRN (Reason: Shortness Of Breath Or Wheezing) Patient Comments: Patient states "haven't taken this for months". metoprolol succinate 25 mg Capsule,Sprinkle,Er 24hr 25 mg PO QAM aspirin 81 mg Tablet,Chewable 81 mg PO DAILY fluticasone propionate [Flovent HFA] 220 mcg/actuation Hfa Aerosol Inhaler 1 puff INHALATION BID magnesium oxide 400 mg (241.3 mg magnesium) Tablet 400 mg PO BID Qty: 60 5RF ferrous sulfate 325 mg (65 mg iron) tablet 325 mg PO DAILY@12 Qty: 30 5RF Rx Instructions: Take with lunch + ascorbic acid. amiodarone 200 mg tablet 200 mg PO QAM tramadol 50 mg tablet 50 mg PO HS PRN (Reason: headache or arthritis pain) ascorbic acid (vitamin C) 500 mg tablet 250 mg PO DAILY@12 Rx Instructions: Take with ferrous sulfate. acetaminophen [Tylenol Extra Strength] 500 mg Tablet 500 mg PO Q6H PRN (Reason: Pain) ipratropium-albuterol 0.5 mg-3 mg(2.5 mg base)/3 mL solution for nebulization 3 ml INHALATION Q6H PRN (Reason: Shortness Of Breath Or Wheezing) simvastatin 10 mg tablet 10 mg PO HS topiramate 25 mg tablet 25 mg PO BID clopidogrel 75 mg tablet 75 mg PO DAILY levothyroxine 25 mcg tablet 25 mcg PO DAILY furosemide 20 mg Tablet 40 mg PO QAM Qty: 30 5RF famotidine 10 mg Tablet 10 mg PO DAILY ketoconazole 2 % cream 1 applic TOPICAL BID PRN (Reason: Rash) Discharge Orders: Discharge Order (Routine); Ordered 06/15/22 Ordered By: Ridge Berg Admission Data Admit Date/Time: 06/07/22 07:47 Attending Provider: Ridge Berg Admit Provider: Paradise Carter I. Primary Care Provider: Chana Stacy Other Providers: Paradise Carter I. ; [facility], ; [place] ; Randee De Leon
== END 2022-06-15 15:37 ==
LOC: 3W 11:22 → ED 11:22 → SUATTDRO 17:08 → 3W 18:36 → SUATTDRO 06-07 07:47

== ENCOUNTER 2022-08-18 06:13 | Inpatient (IN) ==
[2022-08-18] MEDS ORDERED: ALUMINUM/MAGNESIUM SUSP 30 ML UDC PO PRN (10:19)
[2022-08-18] MEDS ORDERED: ONDANSETRON INJ 2 MG/ML 2 ML VIAL IV PRN (10:19)
[2022-08-18] MEDS ORDERED: MAGNESIUM HYDROXIDE SUSP 30 ML UDC PO PRN (10:19)
[2022-08-18] MEDS ORDERED: POLYETHYLENE (MIRALAX) 17 GM PACK PO PRN (10:19)
--- NOTE | 2022-08-18 10:30 | History & Physical Report ---
Date of Service August 18, 2022 Assessment & Plan (1) COPD (chronic obstructive pulmonary disease): (2) CHF (congestive heart failure): (3) Dyslipidemia: (4) Hypoxia: (5) Atrial fibrillation with rapid ventricular response: (6) Paroxysmal atrial fibrillation: (7) Sepsis due to pneumonia: Plan Ms. Celia Marshall is a 71-year-old female that was a direct transfer from [facility] that was arranged overnight. Patient was transferred to [facility] yesterday from local nursing facility after being found febrile with a temperature of 103. Patient appears septic with unclear source. Patient was hypotensive at [facility] and started on Levophed. Chest x-ray there showed pulmonary congestion. Urinalysis at that time was negative. She was started on IV Vancomycin and cefepime there. Patient was recently admitted to [facility] in May 26 - 06/14 with ambulatory dysfunction. Patient has extensive sacral ulcers and was transferred to a nursing facility upon discharge due to inability of caring for herself at home. Most recent echo 04/14; EF 70%, G1 DD X, bioprosthetic aortic valve. Septic shock secondary to pna suspected bacteremia parainfluenza infection WBC 13.64, down from what it was at [facility] febrile 103F; afebrile here. CXR mild cardiomegaly Chest CT suggestive of RLL PNA at [facility] Hypotensive on arrival and was on Levophed; hypotension has resolved and pressors stopped. [facility] blood cultures positive; on Vanco and Cefepime and will continue. Suspect Zosyn would be Suspected bacteremia; final blood cultures pending Blood cultures pending here although already on treatment Lactate normal 1.[address] scan is abnormal and per ICU repeat 6-8 weeks time to determine resolution CKD Stage III: Creatinine 1.28, at baseline today 1.51 Paroxysmal atrial fibrillation: Takes Metoprolol and Amiodarone; continue Not anticoagulated due to history of GI bleeding Chronic diastolic CHF due to valvular disease: S/p TAVR: Echo 03/2022-EF > 70%, grade 1 diastolic dysfunction, normal gradient for bioprosthetic aortic valve Appears euvolemic Continue Plavix Hypothyroidism: Takes Synthroid; continue History of migraines: Takes Topiramate; continue Sacral wound: Appears to be healing; has Allyvn on bottom WOCN to evaluation right sided pannus; has ketoconazole ordered Disposition: PCP: Dr. Ramirez Code Status: Full Code VTE Prophylaxis: Heparin SQ I spent a total of 88 minutes coordinating, documenting, and providing care for this patient excluding time spent in the performance of separately billed services. All of the aforementioned completed while collaborating with the assigned attending physician for a full treatment plan. Please see their addendum for further details. Admission and Anticipated Discharge Date Admission Date: August 18, 2022 History of Present Illness Chief Complaint: febrile Primary Care Provider: Chana Stacy PA-C Ms. Celia Marshall is a 71-year-old female that was a direct transfer from [facility] that was arranged overnight. Patient was transferred to [facility] yesterday from local nursing facility after being found febrile with a temperature of 103. Patient appears septic with unclear source. Patient was hypotensive at [facility] and started on Levophed. Chest x-ray there showed pulmonary congestion. Urinalysis at that time was negative. She was started on IV Vancomycin and cefepime there. Patient was recently admitted to [facility] in May 26 - 06/14 with ambulatory dysfunction. Patient has extensive sacral ulcers and was transferred to a nursing facility upon discharge due to inability of caring for herself at home. Most recent echo 04/14; EF 70%, G1 DD X, bioprosthetic aortic valve. Additional past medical history includes CHF, CKD, A-fib, osteoarthritis, tobacco abuse, HLD, hypothyroidism. Initial lab work-up ordered to assist the ICU including procalcitonin, lactate, CMP, CBC, lipase, UA, Mg+ and Phos. Will repeat imaging. Initial admission to ICU as she requiring Levophed on arrival. This has been turned off since and she will likely be downgraded to PCU. Patient will be admitted for further evaluation and management. Discussed with construction secretary directly. Please see A/P for further details. Allergies Allergy/AdvReac Type Severity Reaction Status Date / Time dog dander Allergy Intermediate Sneezing Verified 03/20/19 08:57 egg Allergy SPECIFIC-DUCK Verified 03/20/19 08:57 EGG CAUSED FACIAL SWELLING pollen extracts Allergy HAYFEVER Verified 03/20/19 08:57 methylprednisolone AdvReac Unknown Ver[facility] 03/20/19 08:57 [facility] Home Medications Medication Instructions Recorded Confirmed Type albuterol sulfate 90 mcg/actuation 2 puff inhalation QID PRN 01/02/18 08/18/22 History aerosol inhaler (Ventolin HFA) Shortness Of Breath Or Wheezing pantoprazole 40 mg tablet,delayed 40 mg PO BID 01/02/18 08/18/22 History release ferrous sulfate 325 mg (65 mg 325 mg PO DAILY@12 #30 tabs 07/21/18 08/18/22 Rx iron) tablet magnesium oxide 400 mg (241.3 mg 400 mg PO BID #60 tabs 07/21/18 08/18/22 Rx magnesium) tablet metoprolol succinate 25 mg capsule 25 mg PO QAM 09/04/18 08/18/22 History sprinkle, ext. release 24 hr acetaminophen 500 mg tablet 650 mg PO Q4 PRN Pain 10/17/18 08/18/22 History (Tylenol Extra Strength) amiodarone 200 mg tablet 200 mg PO QAM 10/17/18 08/18/22 History ascorbic acid (vitamin C) 500 mg 250 mg PO DAILY@12 10/17/18 08/18/22 History tablet aspirin 81 mg chewable tablet 81 mg PO DAILY 03/19/19 08/18/22 History fluticasone propionate 220 1 puff inhalation BID 03/19/19 08/18/22 History mcg/actuation HFA aerosol inhaler (Flovent HFA) clopidogrel 75 mg tablet 75 mg PO DAILY 04/03/22 08/18/22 History ipratropium 0.5 mg-albuterol 3 mg 3 ml inhalation Q6H PRN Shortness 04/03/22 08/18/22 History (2.5 mg base)/3 mL nebulization Of Breath Or Wheezing soln levothyroxine 25 mcg tablet 25 mcg PO DAILY 04/03/22 08/18/22 History simvastatin 10 mg tablet 10 mg PO HS 04/03/22 08/18/22 History topiramate 25 mg tablet 25 mg PO BID 04/03/22 08/18/22 History furosemide 20 mg tablet 40 mg PO QAM #30 tabs 04/06/22 08/18/22 Rx famotidine 10 mg tablet 10 mg PO DAILY 04/13/22 08/18/22 History ketoconazole 2 % topical cream 1 applic topical BID PRN Rash 04/13/22 08/18/22 History tramadol 50 mg tablet 50 mg PO HS PRN headache or 06/15/22 08/18/22 Rx arthritis pain 5 days #5 tabs Past Med/Surg History Medical History (Updated 08/18/22 @ 15:51 by GOYO Camp) Aortic stenosis Atrial fibrillation Cardiac murmur CHF (congestive heart failure) CKD (chronic kidney disease), stage III COPD (chronic obstructive pulmonary disease) Dyslipidemia GERD (gastroesophageal reflux disease) History of migraine Kidney stones Migraine Obesity Osteoarthritis Paroxysmal atrial fibrillation Sepsis due to pneumonia SOB (shortness of breath) on exertion Stomach ulcer HX Tobacco abuse quit 3 months ago Surgical History History of colonoscopy History of cystoscopy History of esophagogastroduodenoscopy (EGD) Hx of cholecystectomy Family History Father Family history of diabetes mellitus Social History Smoking Status: Former smoker Tobacco Type: Cigarettes Cigarettes Per Day: QUIT 2 MONTHS AGO; Second Hand Exposure: No; Do You Dip or Chew Tobacco: No; Hx Alcohol Use: No Hx Substance Use: No Preferred Language: Telugu Communication Ability: Effective Ur Coordinator Required: No Beliefs That Will Affect Care: None Current Living Situation: Half-Way Current Living Situation Comment: lives in a trailer with sister Feels Safe at Home: No Is there a partner from a previous relationship who is making you feel unsafe now?: No Assistive Devices: Wheelchair Review of Systems Review of Systems: Neuro: (-) Falls, trauma, slurred speech HEENT: (-) SANCHEZ, dizziness, dysphagia, visual or auditory changes CV: (-) CP, palpitations, swelling Resp: (-) SOB GI: (-) appetite changes, N/V/D, bowel changes : (-) urinary changes Skin: (-) rashes Psych: (-) anxiety, depression Physical Exam Physical Exam: Neuro: AAOx4, PERRLA, no aphagia, memory changes, CNII-XII grossly intact HEENT: head normocephalic, moist mucus membranes CV: S1/S2, (-) M/G/R, (-) edema, cap refill < 3 seconds Resp: Lungs CTA in all cobos. On RA GI: Abdomen S/NT/ND, Ax4 bowel sounds, (-) CVA tenderness Musculoskeletal: 5/5 B/L UE strength, 5/5 B/L LE strength. No gait disturbance Skin: (-) rashes , (-) erythema. Psych: euthymic mood Results & Data Results & Data Vital Signs (Past 12 Hours) Vital Signs Temp Pulse Resp BP Pulse Ox O2 Del Method O2 Flow Rate 08/18/22 10:13 36.6 C 61 20 107/79 95 Nasal Cannula 2 Laboratory Results Short CBC 08/18/22 Range/Units 10:57 WBC 13.64 H (4.8-10.8) K/ul Hgb 12.3 (12.0-16.0) g/dl Hct 38.1 (37.0-47.0) % Plt Count 171 (130-400) K/uL BMP 08/18/22 10:57 Sodium 136 Potassium 3.5 Chloride 107 Carbon Dioxide 24 BUN 23 Creatinine 1.51 H Glucose 113 H Calcium 8.9 Liver Function 08/18/22 Range/Units 10:57 Total Bilirubin 0.6 (0.2-1.0) mg/dl AST 15 (13-39) U/L ALT 9 (7-52) U/L Alkaline Phosphatase 95 (34-104) U/L Albumin 3.4 (3.4-5.0) gm/dl Diagnostic Findings Chest X-Ray 08/18/22 10:30 XR chest 1V portable HISTORY: sepsis COMPARISON: Outside hospital chest CT 08/18/2022. Chest x-ray 06/12/2022. FINDINGS: There are low lung volumes with chronic interstitial thickening. This is similar to the prior study. The cardiac silhouette remains mildly enlarged. No pneumothorax. No pleural effusions. An aortic valve prosthesis is again noted. No acute fractures. There are few scattered pulmonary nodules which are better present on the recent chest CT. IMPRESSION: 1. Low lung volumes with chronic interstitial thickening. 2. Mild cardiomegaly, unchanged. 3. A few scattered pulmonary nodules which are better appreciated on the recent chest CT. ACT 112: Negative or not required by law. Electronically signed by: Huber Damian M.D. 08/18/2022 12:30 PM Code Status & VTE Plan Code Status Full Code in the event of cardiac or respiratory arrest VTE Prophylaxis Plan VTE Prophylaxis will be ordered: Yes Supervising Physician Co-Signing Physician Notes Patient is a 71-year-old female with history of CKD, paroxysmal atrial fibrillation, chronic diastolic heart failure, TAVR, hypothyroidism and other medical problems presents as a direct transfer from [facility] for septic shock. Patient remained hypotensive but [facility] and was started on Levophed. Patient was directly admitted to ICU at [facility] for further management. Patient admits to have ongoing cough with brownish expectoration. CT scan done at [facility] suggestive of pneumonia. BioFire positive for influenza. Blood cultures were suspected to be positive for bacteremia as well. Levophed was weaned off currently. Please review HPI for complete details of presentation. On examination, patient is morbidly obese, no apparent distress, normocephalic/atraumatic, EOMI, decreased breath sounds, basal crackles, 1+ bilateral lower extremity edema, S1-S2, no murmur, alert, awake, oriented, grossly no focal deficits, right abdominal fold erythematous. I personally reviewed blood work and imaging studies. Procalcitonin currently pending. Blood cultures obtained. Continue broad-spectrum antibiotics with vancomycin and cefepime. Weaned off of pressors. Blood pressure stable although relatively low. Continue home medications for management of paroxysmal A-fib, hypothyroidism. I personally reviewed the record. Patient is interviewed and examined at bedside. Patient's care is coordinated with Janey NANCE . Please refer to the documentation above for details of patient's presentation and for discussion of other issues.
[2022-08-18] MEDS ORDERED: STAT IV Infusion **Titration per Protocol STA (11:01)
--- NOTE | 2022-08-18 11:04 | Critical Care Consultation ---
Date of Consultation August 18, 2022 Assessment & Plan (1) Sepsis due to pneumonia: (2) Hypoxia: (3) CKD (chronic kidney disease), stage III: (4) Paroxysmal atrial fibrillation: Plan Reason Critically Ill: 71-year-old female presenting with sepsis syndrome in the setting of symptoms consistent with pulmonary infection. Initially requiring vasopressor support. NEURO - * [facility] ICU: NEGATIVE CARDIAC/VASCULAR - * Hypotension: * In the setting of sepsis syndrome. * Initially received IV fluid resuscitation and now on low-dose Levophed. * Will titrate Levophed down to off. * Patient eating and drinking at this point. Consider slow rate of IV fluids in the septic patient. * Random cortisol of 10, however patient is now off pressors. * Monitor on telemetry. RESPIRATORY - * Acute hypoxic respiratory failure: * CT imaging studies reviewed, patient with pulmonary nodules during d ischarge on last visit and May. CT chest that was dedicated from outside facility demonstrated multiple nodular-like presentation. Question if this is an acute on chronic exacerbation. Regardless, the patient will need ongoing evaluation of this in the patient with significant smoking history. * Would continue with antibiotics. Cover with cefepime and vancomycin for now. * Continue home inhalers for now. * Saturating well on 2 L nasal cannula. * Follow-up outpatient with PFTs and CT. GI/NUTRITION - * Progress diet as tolerated. * Prophylaxis: Protonix p.o. RENAL/LYTES - * CKD 3: * Appears at baseline at this time. * Monitor electrolytes. Replace appropriately. - * Patient refuses [place] placement. * Strict I&Os. ENDO - * BSGs per unit protocol. ISS --> gtt per unit policy. HEME - * Stable H&H ID - * Sepsis in the setting of likely pulmonary source: * Continue antibiotic coverage with cefepime and vancomycin in the critically ill patient. * Agree with extended viral panel evaluation. * Lactate normal. * PCT pending. LINES/IV ACCESS - * PIVs x2 DVT PROPHYLAXIS - * Heparin sq * SCDs I have personally spent 45 minutes of critical care time in the direct management of this patient. This is a life/limb threatening event. This includes time spent evaluating patient, direct bedside care, chart review, placing orders, interpretation of diagnostic studies, discussion with consultants, patient, and family members, as well as other required patient management activities. This time is exclusive of all separately billable procedures, and teaching time and separate from and in addition to any other critical care service time. Thank you for allowing us to participate in the care of this patient. Please refer to my attending physician's documentation for any further recommendations. Supervising Physician Co-Signing Physician Notes Patient seen and examined. EMR reviewed. Patient transferred from outside hospital due to hypotension and presumed septic shock although lactate was normal. Her hypotension is resolved and she has been off pressors since shortly after arrival here. Reports from [facility] indicate blood cultures are positive. She is received appropriate antibiotics. Her CT scan is abnormal and she will require a follow-up CT scan in 6 to 8 weeks to document resolution. Will advance diet. PT and OT. Out of bed to chair as tolerated. Anticipate the patient can transfer to the floor as her pressor requirements have resolved. Critical care will sign off. Feel free to contact us with questions or concerns. History of Present Illness Reason for Consultation: Sepsis Requesting Physician: GOYO Arnett Attending Physician: Jitendra Rome MD History of Present Illness Patient is a 71-year-old female with a significant past medical history of COPD with extensive smoking history of greater than 45 years at 2 packs/day, aortic s tenosis, dyslipidemia, CHF, A-fib with RVR, CKD 3, and migraines who was admitted to our institution in May 2021 with ambulatory dysfunction and sacral ulcerations. She was discharged to a nursing facility in [facility] where she has undergone physical and occupational therapies. She reports that she has completed both of these, however she [facility] arrangements. Approximately a week ago, she has developed a cough which is now productive of brownish sputum. Last evening, she developed fevers and chills. She was taken to the [place] emergency department where she underwent evaluation and was requiring oxygen. She received IV fluid resuscitation and eventually required vasopressor support. Family elected to have the patient transferred to [facility] for continuation of care purposes. She was transferred via EMS to our ICU. Upon evaluation in the ICU, the patient is awake, alert, and oriented. She reports a cough productive of brownish sputum. She reports feeling generalized weakness and fatigue. She also reports being very hungry. She denies complaints of chest pain, palpitations, hemoptysis, dizziness, lightheadedness, nausea, vomiting, or abdominal discomfort. Allergies Allergy/AdvReac Type Severity Reaction Status Date / Time dog dander Allergy Intermediate Sneezing Verified 03/20/19 08:57 egg Allergy SPECIFIC-DUCK Verified 03/20/19 08:57 EGG CAUSED FACIAL SWELLING pollen extracts Allergy HAYFEVER Verified 03/20/19 08:57 methylprednisolone AdvReac Unknown Verified 03/20/19 08:57 [facility] Home Medications Medication Instructions Recorded Confirmed Type albuterol sulfate 90 mcg/actuation 2 puff inhalation QID PRN 01/02/18 08/18/22 History aerosol inhaler (Ventolin HFA) Shortness Of Breath Or Wheezing pantoprazole 40 mg tablet,delayed 40 mg PO BID 01/02/18 08/18/22 History release ferrous sulfate 325 mg (65 mg 325 mg PO DAILY@12 #30 tabs 07/21/18 08/18/22 Rx iron) tablet magnesium oxide 400 mg (241.3 mg 400 mg PO BID #60 tabs 07/21/18 08/18/22 Rx magnesium) tablet metoprolol succinate 25 mg capsule 25 mg PO QAM 09/04/18 08/18/22 History sprinkle, ext. release 24 hr acetaminophen 500 mg tablet 650 mg PO Q4 PRN Pain 10/17/18 08/18/22 History (Tylenol Extra Strength) amiodarone 200 mg tablet 200 mg PO QAM 10/17/18 08/18/22 History ascorbic acid (vitamin C) 500 mg 250 mg PO DAILY@12 10/17/18 08/18/22 History tablet aspirin 81 mg chewable tablet 81 mg PO DAILY 03/19/19 08/18/22 History fluticasone propionate 220 1 puff inhalation BID 03/19/19 08/18/22 History mcg/actuation HFA aerosol inhaler (Flovent HFA) clopidogrel 75 mg tablet 75 mg PO DAILY 04/03/22 08/18/22 History ipratropium 0.5 mg-albuterol 3 mg 3 ml inhalation Q6H PRN Shortness 04/03/22 08/18/22 History (2.5 mg base)/3 mL nebulization Of Breath Or Wheezing soln levothyroxine 25 mcg tablet 25 mcg PO DAILY 04/03/22 08/18/22 History simvastatin 10 mg tablet 10 mg PO HS 04/03/22 08/18/22 History topiramate 25 mg tablet 25 mg PO BID 04/03/22 08/18/22 History furosemide 20 mg tablet 40 mg PO QAM #30 tabs 04/06/22 08/18/22 Rx famotidine 10 mg tablet 10 mg PO DAILY 04/13/22 08/18/22 History ketoconazole 2 % topical cream 1 applic topical BID PRN Rash 04/13/22 08/18/22 History tramadol 50 mg tablet 50 mg PO HS PRN headache or 06/15/22 08/18/22 Rx arthritis pain 5 days #5 tabs Patient History Medical History (Updated 08/18/22 @ 15:51 by GOYO Camp) Aortic stenosis Atrial fibrillation Cardiac murmur CHF (congestive heart failure) CKD (chronic kidney disease), stage III COPD (chronic obstructive pulmonary disease) Dyslipidemia GERD (gastroesophageal reflux disease) History of migraine Kidney stones Migraine Obesity Osteoarthritis Paroxysmal atrial fibrillation Sepsis due to pneumonia SOB (shortness of breath) on exertion Stomach ulcer HX Tobacco abuse quit 3 months ago Surgical History History of colonoscopy History of cystoscopy History of esophagogastroduodenoscopy (EGD) Hx of cholecystectomy Family History Father Family history of diabetes mellitus Social History Smoking Status: Former smoker Tobacco Type: Cigarettes Cigarettes Per Day: QUIT 2 MONTHS AGO; Second Hand Exposure: No; Do You Dip or Chew Tobacco: No; Hx Alcohol Use: No Hx Substance Use: No Preferred Language: Czech Communication Ability: Effective Custom Grinder Required: No Beliefs That Will Affect Care: None Current Living Situation: [facility] Current Living Situation Comment: lives in a trailer with sister Feels Safe at Home: No Is there a partner from a previous relationship who is making you feel unsafe now?: No Assistive Devices: Wheelchair Review of Systems Review of Systems: A complete 10 point review of systems was reviewed with the patient with pertinent positives and negatives as per history of present illness. All else were negative. Physical Exam Physical Exam: VITAL SIGNS - Vital signs and nursing notes were reviewed. GENERAL - 71-year-old female appearing her stated age who is in no acute distress. Communicates well with provider and answers questions appropriately. SKIN - Without rashes or lesions. NOSE - Midline and without cyanosis. MOUTH/OROPHARYNX - Without perioral cyanosis. Buccal mucosa pink and moist. NECK - Neck with FROM. LUNGS - Auscultation reveals diminished breath sounds at the bilateral bases. Slight crackles to the RIGHT-sided lung base. CARDIAC - RRR with S1/S2. No murmur, rubs, or gallops appreciated. ABDOMEN - Abdominal inspection demonstrates obese abdomen. BS normoactive all four quadrants. No tenderness, palpable masses, or ascites noted. EXTREMITIES - Trace pretibial edema present. +3/5 radial palpated throughout. PSYCH - A&Ox3 and cooperates fully with examiner. Pt is very pleasant and interacts well with examiner. Results & Data Results & Data Vital Signs (Past 12 Hours) Vital Signs Temp Pulse Pulse Resp BP Pulse Ox O2 Del Method 08/18/22 10:00 60 08/18/22 10:00 Nasal Cannula 08/18/22 10:13 36.6 C 61 20 107/79 95 Nasal Cannula O2 Flow Rate 08/18/22 10:00 08/18/22 10:00 2 08/18/22 10:13 2 Coding Level of Care Code 59026 CRITICAL CARE 1ST 30-74M Diagnoses Sepsis due to pneumonia J18.9; A41.9 Hypoxia R09.02 CKD (chronic kidney disease), stage III N18.30 Paroxysmal atrial fibrillation I48.0
[2022-08-18] MEDS: ASCORBIC ACID 500 MG TAB PO SCH (11:54)
[2022-08-18] MEDS: FERROUS SULFATE 325 MG TAB PO SCH (11:54)
[2022-08-18 11:57] LABS: Hematocrit (blood only) 38.1 % (37.0-47.0); Hemoglobin 12.3 g/dl (12.0-16.0); Mean Corpuscular Hemoglobin 31.1 pg (25.0-34.0); Mean Corpuscular Hgb Conc 32.3 g/dL (32.0-36.0); Mean Corpuscular Volume 96.5 fL (80.0-100.0); Mean Platelet Volume 12.3 fL (9.4-12.4); Platelet Count 171 K/uL (130-400); RDW Coefficient of Variation 16.2 % (11.5-14.5); RDW Standard Deviation 57.7 fL (36.4-46.3); Red Blood Count 3.95 M/uL (4.20-5.40); White Blood Count 13.64 K/ul (4.8-10.8)
[2022-08-18] MEDS: ACETAMINOPHEN 325 MG TAB PO PRN ×2 (11:58→17:23)
[2022-08-18] MEDS: FLUTICASONE FUROATE 100MCG 14 PUFFS/INHALER INH SCH ×2 (12:22→12:24)
--- NOTE | 2022-08-18 12:31 | XRay Report ---
XR chest 1V portable HISTORY: sepsis COMPARISON: Outside hospital chest CT 08/18/2022. Chest x-ray 06/12/2022. FINDINGS: There are low lung volumes with chronic interstitial thickening. This is similar to the devyn or study. The cardiac silhouette remains mildly enlarged. No pneumothorax. No pleural effusions. An a ortic valve prosthesis is again noted. No acute fractures. There are few scattered pulmonary nodules which are better present on the recent chest CT. IMPRESSION: 1. Low lung volumes with chronic interstitial thickening. 2. Mild cardiomegaly, unchanged. 3. A few scattered pulmonary nodules which are better appreciated on the recent chest CT. ACT 112: Negative or not required by law. Electronically signed by: Huber Damian M.D. 08/18/2022 12:30 PM
[2022-08-18] MEDS ORDERED: VANCOMYCIN CONSULT ACTIVE PRN (12:45)
[2022-08-18 13:05] LABS: Albumin Globulin Ratio 0.9 (0.9-2); Albumin Level 3.4 gm/dl (3.4-5.0); BUN Creatinine Ratio 15.2 (10-20); Bilirubin,Total 0.6 mg/dl (0.2-1.0); Calcium 8.9 mg/dl (8.6-10.3); Creatinine Clr Calc Pharmacy 48.3 ml/min; Est GFR (African American) 39.3 ml/min; Est GFR (Non-African American) 33.9 ml/min; Globulin 3.7 gm/dl (2.5-4.0); Potassium 3.5 mmol/L (3.5-5.1); Total Protein 7.1 gm/dl (6.0-8.3)
--- NOTE | 2022-08-18 13:26 | Pharmacy Report ---
Pharmacy PK ABX Note - Date of Service August 18, 2022 - Assessment and Plan Assessment 71 year old F receiving EMPIRIC cefepime/vancomycin for treatment of sepsis. Pertinent microbiologic data includes: Positive MRSA Nasal Swab, blood cultures pending. Plan Vancomycin * Loading dose: 2000 mg IV x 1- received at outside facility * Maintenance dose: 750 mg IV every 18 hours * Regimen is predicted to achieve target AUC/SATYA of 400-600 mg/L.hr * Random level ordered for 08/19 AM to help assist with dosing Pharmacy will continue to follow and will adjust dose/frequency as necessary. Thank you. Pharmacy has transitioned to AUC monitoring for vancomycin. AUC/SATYA is the preferred PK/PD target and is associated with decreased risk of nephrotoxicity compared to traditional trough targets.
[2022-08-18 14:04] LABS: Adenovirus PCR Not Detected (NotDetected); Bordetella parapertussis PCR Not Detected (NotDetected); Bordetella pertussis PCR Not Detected (NotDetected); Chlamydia pneumoniae PCR Not Detected (NotDetected); Coronavirus 229E PCR Not Detected (NotDetected); Coronavirus CoV-2 (COVID19)PCR Not Detected (NotDetected); Coronavirus HKU1 PCR Not Detected (NotDetected); Coronavirus NL63 PCR Not Detected (NotDetected); Coronavirus OC43PCR Not Detected (NotDetected); Human Metapneumovirus PCR Not Detected (NotDetected); Influenza A PCR Not Detected (NotDetected); Influenza B PCR Not Detected (NotDetected); Mycoplasma pneumoniae PCR Not Detected (NotDetected); Parainfluenza Virus 1 PCR Not Detected (NotDetected); Parainfluenza Virus 2 PCR Not Detected (NotDetected); Parainfluenza Virus 4 PCR Not Detected (NotDetected); Respiratory Syncytial VirusPCR Not Detected (NotDetected); Rhinovirus/Enterovirus PCR Not Detected (NotDetected)
[2022-08-18] MEDS ORDERED: ALBUT/IPRATROP 3MG/0.5MG NEB 3 ML VIAL INH PRN (14:41)
[2022-08-18 14:50] LABS: Parainfluenza Virus 3 PCR DETECTED (NotDetected)
[2022-08-18] MEDS: CEFEPIME 2,000 MG in SYRINGE 0 ML IV SCH (16:21)
[2022-08-18] MEDS: HEPARIN SOD 5,000 UNIT/0.5 ML VIAL SQ SCH ×2 (16:31→23:07)
[2022-08-18] MEDS: SIMVASTATIN 10 MG TAB PO SCH (20:47)
[2022-08-18] MEDS: MAGNESIUM OXIDE 400 MG TAB PO SCH (20:47)
[2022-08-18] MEDS: TOPIRAMATE 25 MG TAB PO SCH (20:47)
[2022-08-18] MEDS: NOREPINEPHRINE/D5W 4 MG/250 ML PLCT IV SCH ×2 (20:47→20:48)
[2022-08-18] MEDS: PANTOprazole 40 MG TAB PO SCH (20:47)
[2022-08-18] MEDS ORDERED: HEPARIN SOD 5,000 UNIT/0.5 ML VIAL SQ SCH (21:00)
[2022-08-18] MEDS: VANCOMYCIN HCL 1,000 MG in SODIUM CHLORIDE 0.9% 250 ML IV SCH (21:38)
[2022-08-18] MEDS ORDERED: VANCOMYCIN HCL 750 MG in SODIUM CHLORIDE 0.9% 250 ML IV SCH (22:00)
[2022-08-18] MEDS: traMADol HCL 50 MG TABLET PO PRN (22:25)
[2022-08-19] MEDS: CEFEPIME 2,000 MG in SYRINGE 0 ML IV SCH ×2 (03:20→15:26)
[2022-08-19 04:08] LABS: Appearance Urine Cloudy (Clear); Bacteria Urine Automated Negative (Negative); Bilirubin Urine Negative (Negative); Blood Urine 2+ (Negative); Color Urine Yellow; Epithelial Cell Urine Auto >30 /lpf (0-5); Glucose Urine UA Negative (Negative); Ketones Urine Trace (Negative); Leukocyte Esterase Urine Trace (Negative); Nitrite Urine Negative (Negative); Protein Urine 1+ (Negative); Specific Gravity Urine 1.018 (1.000-1.030); Urobilinogen Urine Negative (Negative)
[2022-08-19 04:49] LABS: RBC Urine Automated 0-4 /hpf (0-4)
[2022-08-19] MEDS: ACETAMINOPHEN 325 MG TAB PO PRN ×3 (05:43→16:38)
[2022-08-19] MEDS: LEVOTHYROXINE SODIUM 25 MCG TABLET PO SCH (05:43)
[2022-08-19 05:55] LABS: Albumin Globulin Ratio 0.8 (0.9-2); Albumin Level 3.1 gm/dl (3.4-5.0); BUN Creatinine Ratio 14.9 (10-20); Bilirubin,Total 0.5 mg/dl (0.2-1.0); Creatinine Clr Calc Pharmacy 49.3 ml/min; Est GFR (African American) 40.3 ml/min; Est GFR (Non-African American) 34.8 ml/min; Globulin 3.7 gm/dl (2.5-4.0); Magnesium 1.9 mg/dl (1.7-2.4); Phosphorus 2.4 mg/dl (2.5-4.9); Potassium 4.1 mmol/L (3.5-5.1); Total Protein 6.8 gm/dl (6.0-8.3)
[2022-08-19 06:00] LABS: Hematocrit (blood only) 36.6 % (37.0-47.0); Hemoglobin 11.6 g/dl (12.0-16.0); Mean Corpuscular Hemoglobin 31.3 pg (25.0-34.0); Mean Corpuscular Hgb Conc 31.7 g/dL (32.0-36.0); Mean Corpuscular Volume 98.7 fL (80.0-100.0); Mean Platelet Volume 12.2 fL (9.4-12.4); Platelet Count 151 K/uL (130-400); RDW Coefficient of Variation 16.4 % (11.5-14.5); RDW Standard Deviation 59.6 fL (36.4-46.3); Red Blood Count 3.71 M/uL (4.20-5.40); White Blood Count 15.24 K/ul (4.8-10.8)
[2022-08-19] MEDS: FLUTICASONE FUROATE 100MCG 14 PUFFS/INHALER INH SCH (08:01)
[2022-08-19] MEDS: HEPARIN SOD 5,000 UNIT/0.5 ML VIAL SQ SCH ×2 (08:01→16:38)
[2022-08-19] MEDS: ASPIRIN 81 MG CHEW PO SCH (08:02)
[2022-08-19] MEDS: TOPIRAMATE 25 MG TAB PO SCH ×2 (08:02→21:28)
[2022-08-19] MEDS: FAMOTIDINE 10 MG TABLET PO SCH (08:03)
[2022-08-19] MEDS: CLOPIDOGREL BISULFATE 75 MG TAB PO SCH (08:03)
[2022-08-19] MEDS: AMIODARONE 200 MG TAB PO SCH (08:04)
[2022-08-19] MEDS: MAGNESIUM OXIDE 400 MG TAB PO SCH ×2 (08:04→21:28)
[2022-08-19] MEDS: METOPROLOL SUCC 25MG EXT REL TAB PO SCH (08:04)
[2022-08-19] MEDS: PANTOprazole 40 MG TAB PO SCH ×2 (08:04→21:28)
[2022-08-19] MEDS ORDERED: PERFLUTREN LIPID MICROSPHERE (DEFINITY) IV ONE (08:08)
[2022-08-19] MEDS ORDERED: FUROSEMIDE 40 MG TAB PO SCH (09:00)
--- NOTE | 2022-08-19 10:57 | Hospitalist Progress Note ---
Date of Service August 19, 2022 Assessment & Plan (1) COPD (chronic obstructive pulmonary disease): (2) CHF (congestive heart failure): (3) Dyslipidemia: (4) Hypoxia: (5) Atrial fibrillation with rapid ventricular response: (6) Paroxysmal atrial fibrillation: (7) Sepsis due to pneumonia: Plan: (1) COPD (chronic obstructive pulmonary disease): (2) CHF (congestive heart failure): (3) Dyslipidemia: (4) Hypoxia: (5) Atrial fibrillation with rapid ventricular response: (6) Paroxysmal atrial fibrillation: (7) Sepsis due to pneumonia: Plan Ms. Celia Marshall is a 71-year-old female that was a direct transfer from [facility]. Patient was transferred to [facility] from local nursing facility after being found febrile with a temperature of 103 F. Patient appeared septic with unclear source. Patient was hypotensive at [facility] and started on Levophed. Chest x-ray there showed pulmonary congestion. Urinalysis at that time was negative. She was started on IV Vancomycin and cefepime there. Patient was recently admitted to [facility] in May 26 - 06/14 with ambulatory dysfunction. Patient has history of extensive sacral ulcers (now healed) and was transferred to a nursing facility upon discharge due to inability of caring for herself at home. Most recent echo 04/14; EF 70%, G1 DD X, bioprosthetic aortic valve. Septic shock secondary to pna secondary to Bacteremia w/ staph, hx of bioprosthetic valve - poss. endocarditis parainfluenza infection WBC 13.64, down [facility] febrile 103F; afebrile at [facility] CXR mild cardiomegaly Chest CT suggestive of RLL PNA at [facility] Hypotensive on arrival and was on Levophed; hypotension has resolved and pressors stopped. [facility] blood cultures positive - called the hospital - report Staph infection - followup on final results and sensitivities Vanco and Cefepime started and will continue. Suspected bacteremia; final blood cultures pending Blood cultures ordered here and pending (although already on treatment) Lactate normal 1.[address] scan is abnormal and per ICU repeat 6-8 weeks time to determine resolution Given history of TAVR, bacteremia, echo ordered LV is normal in size. Moderate concentric LVH. LV wall motion is normal. EF 65 to 70%. Grade 1 diastolic dysfunction. There is a bioprosthetic aortic valve. Prosthetic valve gradients have points of normal and slightly increased from prior study of March 2020. There is mild thickening of the posterior mitral valve leaflet similar to prior study in March 2022. Tricuspid valve is not well visualized. ID and cardiology consulted -appreciate their input CKD Stage III: Creatinine 1.28, at baseline today 1.5 Paroxysmal atrial fibrillation: Takes Metoprolol and Amiodarone; continue Not anticoagulated due to history of GI bleeding Chronic diastolic CHF due to valvular disease: S/p TAVR: Echo 03/2022-EF > 70%, grade 1 diastolic dysfunction, normal gradient for bioprosthetic aortic valve Appeared euvolemic on admission Continue Plavix Given history of TAVR, bacteremia, echo ordered LV is normal in size. Moderate concentric LVH. LV wall motion is normal. EF 65 to 70%. Grade 1 diastolic dysfunction. There is a bioprosthetic aortic valve. Prosthetic valve gradients have points of normal and slightly increased from prior study of March 2020. There is mild thickening of the posterior mitral valve leaflet similar to prior study in March 2022. Tricuspid valve is not well visualized. Discussed w/ cardiology - plan for JAY, further recommendations after their evaluation Hypothyroidism: Takes Synthroid; continue History of migraines: Takes Topiramate; continue Sacral wound: Appears to be healing well WOCN consulted Disposition: PCP: Dr. Ramirez Code Status: Full Code VTE Prophylaxis: Heparin SQ Admission and Anticipated Discharge Date Admission Date: August 18, 2022 Subjective Pt seen in follow up of sepsis, bacteremia - hx of bioprosth. valve, + parainfluenza, pna Currently laying in bed, in no acute distress She is awake alert oriented answering simple questions appropriately Patient's sister present at the bedside. ID and cardiology consulted Review of Systems Review of Systems: All systems reviewed & are unremarkable except as noted in Subjective Physical Exam Physical Exam: General: Morbidly obese female, laying in bed, in no acute distress, on supplemental oxygen HEENT: head normocephalic, moist mucus membranes CV: S1/S2, (-) M/G/R, (-) edema Resp: + crackles, on suppl. O2 3L GI: Abdomen S/NT/ND, Ax4 bowel sounds, obese Musculoskeletal: moves extremities Neuro: alert and oriented, PERRL, speech fluent, no facial asymmetry, moves extremities Skin: warm, dry Results & Data Results & Data Vital Signs (Past 12 Hours) Vital Signs Temp Pulse Pulse Resp BP BP Pulse Ox 08/19/22 10:37 65 22 105/56 L 95 08/19/22 08:00 08/19/22 08:00 88 08/19/22 07:34 36.7 C 84 22 113/35 L 95 08/19/22 06:00 88 24 96 08/19/22 05:28 110/56 L 08/19/22 05:28 103 H 17 95 08/19/22 05:00 92 H 23 96 08/19/22 04:01 91/56 L 08/19/22 04:01 96 H 23 96 08/19/22 04:00 37.2 C 94 H 24 96 08/19/22 03:01 117/55 L 08/19/22 03:01 84 23 92 08/19/22 03:00 85 21 91 08/19/22 02:01 81 22 91 08/19/22 02:01 105/45 L 08/19/22 02:00 80 23 91 08/19/22 01:01 101/46 L 08/19/22 01:01 84 22 95 08/19/22 01:00 83 21 95 08/19/22 00:01 106/33 L 08/19/22 00:01 73 20 92 08/19/22 00:00 72 21 93 08/18/22 23:01 115/43 L 08/18/22 23:01 74 25 H 94 08/18/22 23:00 36.1 C L 74 25 H 94 O2 Del Method O2 Flow Rate 08/19/22 10:37 Nasal Cannula 3 08/19/22 08:00 Nasal Cannula 3 08/19/22 08:00 08/19/22 07:34 Nasal Cannula 3 08/19/22 06:00 08/19/22 05:28 08/19/22 05:28 08/19/22 05:00 08/19/22 04:01 08/19/22 04:01 08/19/22 04:00 08/19/22 03:01 08/19/22 03:01 08/19/22 03:00 08/19/22 02:01 08/19/22 02:01 08/19/22 02:00 08/19/22 01:01 08/19/22 01:01 08/19/22 01:00 08/19/22 00:01 08/19/22 00:01 08/19/22 00:00 08/18/22 23:01 08/18/22 23:01 08/18/22 23:00 Laboratory Results 08/19/22 08/19/22 08/19/22 Range/Units 07:11 05:22 05:22 WBC 15.24 H (4.8-10.8) K/ul RBC 3.71 L (4.20-5.40) M/uL Hgb 11.6 L (12.0-16.0) g/dl Hct 36.6 L (37.0-47.0) % MCV 98.7 (80.0-100.0) fL MCH 31.3 (25.0-34.0) pg MCHC 31.7 L (32.0-36.0) g/dL RDW Std Deviation 59.6 H (36.4-46.3) fL RDW Coeff of Moni 16.4 H (11.5-14.5) % Plt Count 151 (130-400) K/uL MPV 12.2 (9.4-12.4) fL Sodium 137 (136-145) mmol/L Potassium 4.1 (3.5-5.1) mmol/L Chloride 108 H (98-107) mmol/L Carbon Dioxide 25 (21-32) mmol/L Anion Gap 4 (3-11) BUN 22 (6-23) mg/dl Creatinine 1.48 H (0.6-1.2) mg/dl Est Cr Clr Drug Dosing 49.3 ml/min Est GFR ( Amer) 40.3 ml/min Est GFR (Non-Af Amer) 34.8 ml/min BUN/Creatinine Ratio 14.9 (10-20) Glucose 109 H (70-99(Fasting)) mg/dl POC Glucose 164 H (70-99) mg/dl Lactate (0.4-2.0) mmol/L Calcium 9.0 (8.6-10.3) mg/dl Phosphorus 2.4 L (2.5-4.9) mg/dl Magnesium 1.9 (1.7-2.4) mg/dl Total Bilirubin 0.5 (0.2-1.0) mg/dl AST 12 L (13-39) U/L ALT 8 (7-52) U/L Alkaline Phosphatase 97 (34-104) U/L Total Protein 6.8 (6.0-8.3) gm/dl Albumin 3.1 L (3.4-5.0) gm/dl Globulin 3.7 (2.5-4.0) gm/dl Albumin/Globulin Ratio 0.8 L (0.9-2) Lipase (11-82) U/L Procalcitonin (0-0.5) ng/ml Random Cortisol mcg/dl Urine Color Urine Appearance (Clear) Urine pH (4.5-7.5) Ur Specific Valier (1.000-1.030) Urine Protein (Negative) Urine Glucose (UA) (Negative) Urine Ketones (Negative) Urine Blood (Negative) Urine Nitrite (Negative) Urine Bilirubin (Negative) Urine Urobilinogen (Negative) Ur Leukocyte Esterase (Negative) Urine WBC (Auto) (0-5) /hpf Urine RBC (Auto) (0-4) /hpf U Hyaline Cast (Auto) (0-5) /lpf U Epithel Cells (Auto) (0-5) /lpf Urine Bacteria (Auto) (Negative) Urine Yeast (None Prsent) Nasal Screen MRSA (PCR) (Negative) Random Vancomycin (10-20) mcg/ml Adenovirus (PCR) (NotDetected) B. pertussis DNA (PCR) (NotDetected) B.parapertussis DNA PCR (NotDetected) C. pneumoniae DNA (PCR) (NotDetected) Coronavirus OC43 (PCR) (NotDetected) Coronavirus HKU1 (PCR) (NotDetected) Coronavirus 229E (PCR) (NotDetected) SARS-CoV-2 (PCR) (NotDetected) Coronavirus NL63 (PCR) (NotDetected) Human Metapneumovir PCR (NotDetected) Influenza Type A (PCR) (NotDetected) Influenza Type B (PCR) (NotDetected) M. pneumoniae (PCR) (NotDetected) Parainfluenza 1 (PCR) (NotDetected) Parainfluenza 2 (PCR) (NotDetected) Parainfluenza 3 (PCR) (NotDetected) Parainfluenza 4 (PCR) (NotDetected) RSV (PCR) (NotDetected) Entero/Rhino (PCR) (NotDetected) 08/19/22 08/19/22 08/18/22 Range/Units 05:22 03:55 16:26 WBC (4.8-10.8) K/ul RBC (4.20-5.40) M/uL Hgb (12.0-16.0) g/dl Hct (37.0-47.0) % MCV (80.0-100.0) fL MCH (25.0-34.0) pg MCHC (32.0-36.0) g/dL RDW Std Deviation (36.4-46.3) fL RDW Coeff of Moni (11.5-14.5) % Plt Count (130-400) K/uL MPV (9.4-12.4) fL Sodium (136-145) mmol/L Potassium (3.5-5.1) mmol/L Chloride (98-107) mmol/L Carbon Dioxide (21-32) mmol/L Anion Gap (3-11) BUN (6-23) mg/dl Creatinine (0.6-1.2) mg/dl Est Cr Clr Drug Dosing ml/min Est GFR ( Amer) ml/min Est GFR (Non-Af Amer) ml/min BUN/Creatinine Ratio (10-20) Glucose (70-99(Fasting)) mg/dl POC Glucose 129 H (70-99) mg/dl Lactate (0.4-2.0) mmol/L Calcium (8.6-10.3) mg/dl Phosphorus (2.5-4.9) mg/dl Magnesium (1.7-2.4) mg/dl Total Bilirubin (0.2-1.0) mg/dl AST (13-39) U/L ALT (7-52) U/L Alkaline Phosphatase (34-104) U/L Total Protein (6.0-8.3) gm/dl Albumin (3.4-5.0) gm/dl Globulin (2.5-4.0) gm/dl Albumin/Globulin Ratio (0.9-2) Lipase (11-82) U/L Procalcitonin (0-0.5) ng/ml Random Cortisol mcg/dl Urine Color Yellow Urine Appearance Cloudy A (Clear) Urine pH 6.0 (4.5-7.5) Ur Specific Valier 1.018 (1.000-1.030) Urine Protein 1+ H (Negative) Urine Glucose (UA) Negative (Negative) Urine Ketones Trace H (Negative) Urine Blood 2+ H (Negative) Urine Nitrite Negative (Negative) Urine Bilirubin Negative (Negative) Urine Urobilinogen Negative (Negative) Ur Leukocyte Esterase Trace H (Negative) Urine WBC (Auto) 10-30 H (0-5) /hpf Urine RBC (Auto) 0-4 (0-4) /hpf U Hyaline Cast (Auto) 1-5 (0-5) /lpf U Epithel Cells (Auto) >30 H (0-5) /lpf Urine Bacteria (Auto) Negative (Negative) Urine Yeast Budding A (None Prsent) Nasal Screen MRSA (PCR) (Negative) Random Vancomycin 14.2 (10-20) mcg/ml Adenovirus (PCR) (NotDetected) B. pertussis DNA (PCR) (NotDetected) B.parapertussis DNA PCR (NotDetected) C. pneumoniae DNA (PCR) (NotDetected) Coronavirus OC43 (PCR) (NotDetected) Coronavirus HKU1 (PCR) (NotDetected) Coronavirus 229E (PCR) (NotDetected) SARS-CoV-2 (PCR) (NotDetected) Coronavirus NL63 (PCR) (NotDetected) Human Metapneumovir PCR (NotDetected) Influenza Type A (PCR) (NotDetected) Influenza Type B (PCR) (NotDetected) M. pneumoniae (PCR) (NotDetected) Parainfluenza 1 (PCR) (NotDetected) Parainfluenza 2 (PCR) (NotDetected) Parainfluenza 3 (PCR) (NotDetected) Parainfluenza 4 (PCR) (NotDetected) RSV (PCR) (NotDetected) Entero/Rhino (PCR) (NotDetected) 0408/18/22 08/18/22 Range/Units 16:15 12:00 11:21 WBC (4.8-10.8) K/ul RBC (4.20-5.40) M/uL Hgb (12.0-16.0) g/dl Hct (37.0-47.0) % MCV (80.0-100.0) fL MCH (25.0-34.0) pg MCHC (32.0-36.0) g/dL RDW Std Deviation (36.4-46.3) fL RDW Coeff of Moni (11.5-14.5) % Plt Count (130-400) K/uL MPV (9.4-12.4) fL Sodium (136-145) mmol/L Potassium (3.5-5.1) mmol/L Chloride (98-107) mmol/L Carbon Dioxide (21-32) mmol/L Anion Gap (3-11) BUN (6-23) mg/dl Creatinine (0.6-1.2) mg/dl Est Cr Clr Drug Dosing ml/min Est GFR ( Amer) ml/min Est GFR (Non-Af Amer) ml/min BUN/Creatinine Ratio (10-20) Glucose (70-99(Fasting)) mg/dl POC Glucose (70-99) mg/dl Lactate (0.4-2.0) mmol/L Calcium (8.6-10.3) mg/dl Phosphorus (2.5-4.9) mg/dl Magnesium (1.7-2.4) mg/dl Total Bilirubin (0.2-1.0) mg/dl AST (13-39) U/L ALT (7-52) U/L Alkaline Phosphatase (34-104) U/L Total Protein (6.0-8.3) gm/dl Albumin (3.4-5.0) gm/dl Globulin (2.5-4.0) gm/dl Albumin/Globulin Ratio (0.9-2) Lipase (11-82) U/L Procalcitonin 1.87 H (0-0.5) ng/ml Random Cortisol 10.71 mcg/dl Urine Color Urine Appearance (Clear) Urine pH (4.5-7.5) Ur Specific Valier (1.000-1.030) Urine Protein (Negative) Urine Glucose (UA) (Negative) Urine Ketones (Negative) Urine Blood (Negative) Urine Nitrite (Negative) Urine Bilirubin (Negative) Urine Urobilinogen (Negative) Ur Leukocyte Esterase (Negative) Urine WBC (Auto) (0-5) /hpf Urine RBC (Auto) (0-4) /hpf U Hyaline Cast (Auto) (0-5) /lpf U Epithel Cells (Auto) (0-5) /lpf Urine Bacteria (Auto) (Negative) Urine Yeast (None Prsent) Nasal Screen MRSA (PCR) (Negative) Random Vancomycin (10-20) mcg/ml Adenovirus (PCR) Not Detected (NotDetected) B. pertussis DNA (PCR) Not Detected (NotDetected) B.parapertussis DNA PCR Not Detected (NotDetected) C. pneumoniae DNA (PCR) Not Detected (NotDetected) Coronavirus OC43 (PCR) Not Detected (NotDetected) Coronavirus HKU1 (PCR) Not Detected (NotDetected) Coronavirus 229E (PCR) Not Detected (NotDetected) SARS-CoV-2 (PCR) Not Detected (NotDetected) Coronavirus NL63 (PCR) Not Detected (NotDetected) Human Metapneumovir PCR Not Detected (NotDetected) Influenza Type A (PCR) Not Detected (NotDetected) Influenza Type B (PCR) Not Detected (NotDetected) M. pneumoniae (PCR) Not Detected (NotDetected) Parainfluenza 1 (PCR) Not Detected (NotDetected) Parainfluenza 2 (PCR) Not Detected (NotDetected) Parainfluenza 3 (PCR) DETECTED A* (NotDetected) Parainfluenza 4 (PCR) Not Detected (NotDetected) RSV (PCR) Not Detected (NotDetected) Entero/Rhino (PCR) Not Detected (NotDetected) 08/18/22 08/18/22 08/18/22 Range/Units 11:13 10:57 10:57 WBC 13.64 H (4.8-10.8) K/ul RBC 3.95 L (4.20-5.40) M/uL Hgb 12.3 (12.0-16.0) g/dl Hct 38.1 (37.0-47.0) % MCV 96.5 (80.0-100.0) fL MCH 31.1 (25.0-34.0) pg MCHC 32.3 (32.0-36.0) g/dL RDW Std Deviation 57.7 H (36.4-46.3) fL RDW Coeff of Moni 16.2 H (11.5-14.5) % Plt Count 171 (130-400) K/uL MPV 12.3 (9.4-12.4) fL Sodium 136 (136-145) mmol/L Potassium 3.5 (3.5-5.1) mmol/L Chloride 107 (98-107) mmol/L Carbon Dioxide 24 (21-32) mmol/L Anion Gap 5 (3-11) BUN 23 (6-23) mg/dl Creatinine 1.51 H (0.6-1.2) mg/dl Est Cr Clr Drug Dosing 48.3 ml/min Est GFR ( Amer) 39.3 ml/min Est GFR (Non-Af Amer) 33.9 ml/min BUN/Creatinine Ratio 15.2 (10-20) Glucose 113 H (70-99(Fasting)) mg/dl POC Glucose (70-99) mg/dl Lactate 1.2 (0.4-2.0) mmol/L Calcium 8.9 (8.6-10.3) mg/dl Phosphorus (2.5-4.9) mg/dl Magnesium 2.0 (1.7-2.4) mg/dl Total Bilirubin 0.6 (0.2-1.0) mg/dl AST 15 (13-39) U/L ALT 9 (7-52) U/L Alkaline Phosphatase 95 (34-104) U/L Total Protein 7.1 (6.0-8.3) gm/dl Albumin 3.4 (3.4-5.0) gm/dl Globulin 3.7 (2.5-4.0) gm/dl Albumin/Globulin Ratio 0.9 (0.9-2) Lipase 9 L (11-82) U/L Procalcitonin (0-0.5) ng/ml Random Cortisol mcg/dl Urine Color Urine Appearance (Clear) Urine pH (4.5-7.5) Ur Specific Valier (1.000-1.030) Urine Protein (Negative) Urine Glucose (UA) (Negative) Urine Ketones (Negative) Urine Blood (Negative) Urine Nitrite (Negative) Urine Bilirubin (Negative) Urine Urobilinogen (Negative) Ur Leukocyte Esterase (Negative) Urine WBC (Auto) (0-5) /hpf Urine RBC (Auto) (0-4) /hpf U Hyaline Cast (Auto) (0-5) /lpf U Epithel Cells (Auto) (0-5) /lpf Urine Bacteria (Auto) (Negative) Urine Yeast (None Prsent) Nasal Screen MRSA (PCR) (Negative) Random Vancomycin (10-20) mcg/ml Adenovirus (PCR) (NotDetected) B. pertussis DNA (PCR) (NotDetected) B.parapertussis DNA PCR (NotDetected) C. pneumoniae DNA (PCR) (NotDetected) Coronavirus OC43 (PCR) (NotDetected) Coronavirus HKU1 (PCR) (NotDetected) Coronavirus 229E (PCR) (NotDetected) SARS-CoV-2 (PCR) (NotDetected) Coronavirus NL63 (PCR) (NotDetected) Human Metapneumovir PCR (NotDetected) Influenza Type A (PCR) (NotDetected) Influenza Type B (PCR) (NotDetected) M. pneumoniae (PCR) (NotDetected) Parainfluenza 1 (PCR) (NotDetected) Parainfluenza 2 (PCR) (NotDetected) Parainfluenza 3 (PCR) (NotDetected) Parainfluenza 4 (PCR) (NotDetected) RSV (PCR) (NotDetected) Entero/Rhino (PCR) (NotDetected) 08/18/22 Range/Units 10:00 WBC (4.8-10.8) K/ul RBC (4.20-5.40) M/uL Hgb (12.0-16.0) g/dl Hct (37.0-47.0) % MCV (80.0-100.0) fL MCH (25.0-34.0) pg MCHC (32.0-36.0) g/dL RDW Std Deviation (36.4-46.3) fL RDW Coeff of Moni (11.5-14.5) % Plt Count (130-400) K/uL MPV (9.4-12.4) fL Sodium (136-145) mmol/L Potassium (3.5-5.1) mmol/L Chloride (98-107) mmol/L Carbon Dioxide (21-32) mmol/L Anion Gap (3-11) BUN (6-23) mg/dl Creatinine (0.6-1.2) mg/dl Est Cr Clr Drug Dosing ml/min Est GFR ( Amer) ml/min Est GFR (Non-Af Amer) ml/min BUN/Creatinine Ratio (10-20) Glucose (70-99(Fasting)) mg/dl POC Glucose (70-99) mg/dl Lactate (0.4-2.0) mmol/L Calcium (8.6-10.3) mg/dl Phosphorus (2.5-4.9) mg/dl Magnesium (1.7-2.4) mg/dl Total Bilirubin (0.2-1.0) mg/dl AST (13-39) U/L ALT (7-52) U/L Alkaline Phosphatase (34-104) U/L Total Protein (6.0-8.3) gm/dl Albumin (3.4-5.0) gm/dl Globulin (2.5-4.0) gm/dl Albumin/Globulin Ratio (0.9-2) Lipase (11-82) U/L Procalcitonin (0-0.5) ng/ml Random Cortisol mcg/dl Urine Color Urine Appearance (Clear) Urine pH (4.5-7.5) Ur Specific Valier (1.000-1.030) Urine Protein (Negative) Urine Glucose (UA) (Negative) Urine Ketones (Negative) Urine Blood (Negative) Urine Nitrite (Negative) Urine Bilirubin (Negative) Urine Urobilinogen (Negative) Ur Leukocyte Esterase (Negative) Urine WBC (Auto) (0-5) /hpf Urine RBC (Auto) (0-4) /hpf U Hyaline Cast (Auto) (0-5) /lpf U Epithel Cells (Auto) (0-5) /lpf Urine Bacteria (Auto) (Negative) Urine Yeast (None Prsent) Nasal Screen MRSA (PCR) Positive A (Negative) Random Vancomycin (10-20) mcg/ml Adenovirus (PCR) (NotDetected) B. pertussis DNA (PCR) (NotDetected) B.parapertussis DNA PCR (NotDetected) C. pneumoniae DNA (PCR) (NotDetected) Coronavirus OC43 (PCR) (NotDetected) Coronavirus HKU1 (PCR) (NotDetected) Coronavirus 229E (PCR) (NotDetected) SARS-CoV-2 (PCR) (NotDetected) Coronavirus NL63 (PCR) (NotDetected) Human Metapneumovir PCR (NotDetected) Influenza Type A (PCR) (NotDetected) Influenza Type B (PCR) (NotDetected) M. pneumoniae (PCR) (NotDetected) Parainfluenza 1 (PCR) (NotDetected) Parainfluenza 2 (PCR) (NotDetected) Parainfluenza 3 (PCR) (NotDetected) Parainfluenza 4 (PCR) (NotDetected) RSV (PCR) (NotDetected) Entero/Rhino (PCR) (NotDetected) Medications Administered Current Inpatient Medications Acetaminophen (Acetaminophen 325 Mg Tab) 650 mg PO Q4H PRN PRN Reason: Pain or Fever Stop: 09/17/22 10:18 Last Admin: 08/19/22 05:43 Dose: 650 mg Al Hydrox/Mg Hydrox/Simethicone (Aluminum/Magnesium Susp 30 Ml Udc) 15 ml PO Q4H PRN PRN Reason: Dyspepsia Stop: 09/17/22 10:18 Albuterol (Albut/Ipratrop 3mg/0.5mg Neb 3 Ml Vial) 3 ml INH Q6H PRN; Protocol PRN Reason: Shortness Of Breath Or Wheezing Stop: 09/17/22 14:40 Amiodarone HCl (Amiodarone 200 Mg Tab) 200 mg PO QAM [facility] Stop: 09/18/22 08:59 Last Admin: 08/19/22 08:04 Dose: 200 mg Ascorbic Acid (Ascorbic Acid 500 Mg Tab) 250 mg PO DAILY@12 [facility] Stop: 09/17/22 11:59 Last Admin: 08/18/22 11:54 Dose: 250 mg Aspirin (Aspirin 81 Mg Chew) 81 mg PO DAILY [facility] Stop: 09/18/22 08:59 Last Admin: 08/19/22 08:02 Dose: 81 mg Clopidogrel Bisulfate (Clopidogrel Bisulfate 75 Mg Tab) 75 mg PO DAILY [facility] Stop: 09/18/22 08:59 Last Admin: 08/19/22 08:03 Dose: 75 mg Famotidine (Famotidine 10 Mg Tablet) 10 mg PO DAILY [facility] Stop: 09/18/22 08:59 Last Admin: 08/19/22 08:03 Dose: 10 mg Ferrous Sulfate (Ferrous Sulfate 325 Mg Tab) 325 mg PO DAILY@12 [facility] Stop: 09/17/22 11:59 Last Admin: 08/18/22 11:54 Dose: 325 mg Fluticasone Furoate (Fluticasone Furoate 100mcg 14 Puffs/Inhaler) 1 puffs INH QAM [facility] Stop: 09/17/22 11:44 Last Admin: 08/19/22 08:01 Dose: 1 puffs Furosemide (Furosemide 40 Mg Tab) 40 mg PO QAM [facility] Stop: 09/18/22 08:59 Heparin Sodium (Porcine) (Heparin Sod 5,000 Unit/0.5 Ml Vial) 5,000 units SQ Q8H [facility] Stop: 09/17/22 16:14 Last Admin: 08/19/22 08:01 Dose: 5,000 units Cefepime HCl 2,000 mg/ Syringe 20 mls @ 5 mls/min IV Q12H [facility]; Protocol Stop: 09/01/22 15:59 Last Admin: 08/19/22 03:20 Dose: 5 mls/min Vancomycin HCl 1,000 mg/ (Sodium Chloride) 270 mls @ 200 mls/hr IV Q18H [facility]; Protocol Stop: 09/01/22 21:59 Last Infusion: 08/18/22 22:59 Dose: Infused Ketoconazole (Ketoconazole 2% Cr 15 Gm Tube) 1 appln EXT BID PRN PRN Reason: Rash Stop: 08/28/22 11:14 Levothyroxine Sodium (Levothyroxine Sodium 25 Mcg Tablet) 25 mcg PO DAILYBB [facility] Stop: 09/18/22 06:29 Last Admin: 08/19/22 05:43 Dose: 25 mcg Magnesium Hydroxide (Magnesium Hydroxide Susp 30 Ml Udc) 30 ml PO Q12H PRN PRN Reason: Constipation Stop: 09/17/22 10:18 Magnesium Oxide (Magnesium Oxide 400 Mg Tab) 400 mg PO BID [facility] Stop: 09/17/22 20:59 Last Admin: 08/19/22 08:04 Dose: 400 mg Metoprolol Succinate (Metoprolol Succ 25mg Ext Rel Tab) 25 mg PO QAM [facility] Stop: 09/18/22 08:59 Last Admin: 08/19/22 08:04 Dose: 25 mg Miscellaneous Information (Vancomycin Consult Active) 1 each N/A UD PRN PRN Reason: Consult Stop: 09/17/22 12:44 Ondansetron HCl (Ondansetron Inj 2 Mg/Ml 2 Ml Vial) 4 mg IV Q6H PRN PRN Reason: Nausea Stop: 09/17/22 10:18 Pantoprazole Sodium (Pantoprazole 40 Mg Tab) 40 mg PO BID [facility] Stop: 09/17/22 20:59 Last Admin: 08/19/22 08:04 Dose: 40 mg Polyethylene Glycol (Polyethylene (Miralax) 17 Gm Pack) 17 gm PO DAILY PRN PRN Reason: Constipation Stop: 09/17/22 10:18 Simvastatin (Simvastatin 10 Mg Tab) 10 mg PO HS CHRYSTAL Stop: 09/17/22 20:59 Last Admin: 08/18/22 20:47 Dose: 10 mg Topiramate (Topiramate 25 Mg Tab) 25 mg PO BID CHRYSTAL Stop: 09/17/22 20:59 Last Admin: 08/19/22 08:02 Dose: 25 mg Tramadol HCl (Tramadol Hcl 50 Mg Tablet) 50 mg PO HS PRN PRN Reason: headache or arthritis pain Stop: 09/17/22 11:14 Last Admin: 08/18/22 22:25 Dose: 50 mg
[2022-08-19] MEDS: ASCORBIC ACID 500 MG TAB PO SCH (11:38)
[2022-08-19] MEDS: FERROUS SULFATE 325 MG TAB PO SCH (11:39)
--- NOTE | 2022-08-19 13:57 | Pharmacy Report ---
Pharmacy PK ABX Note - Date of Service August 19, 2022 - Assessment and Plan Assessment 08/19: Blood cultures at our facility currently negative at 24 hours, reports of + BC at outside facility ([facility] in [facility])- will need follow-up for further results, sputum culture growing staph sp. Random level this morning 14.2- predicting slightly above goal range at steady state, however, continue at this dose for now pending renal function changes/PK with early dosing still in low therapeutic range. WBC increased today. May need more aggressive dosing, will get random level again tomorrow to continue evaluating dose. ID has been consulted. 08/18 71 year old F receiving EMPIRIC cefepime/vancomycin for treatment of sepsis. Pertinent microbiologic data includes: Positive MRSA Nasal Swab, blood cultures pending. Plan 08/19: Level 14.2, continue current vancomycin dosing of 1000 mg q18H. 08/18: Vancomycin * Loading dose: 2000 mg IV x 1- received at outside facility * Maintenance dose: 750 mg IV every 18 hours * Regimen is predicted to achieve target AUC/SATYA of 400-600 mg/L.hr * Random level ordered for 08/19 AM to help assist with dosing Pharmacy will continue to follow and will adjust dose/frequency as necessary. Thank you. Pharmacy has transitioned to AUC monitoring for vancomycin. AUC/SATYA is the preferred PK/PD target and is associated with decreased risk of nephrotoxicity compared to traditional trough targets.
[2022-08-19] MEDS: VANCOMYCIN HCL 1,000 MG in SODIUM CHLORIDE 0.9% 250 ML IV SCH (15:27)
[2022-08-19] MEDS: KETOCONAZOLE 2% CR 15 GM TUBE EXT PRN (16:38)
--- NOTE | 2022-08-19 17:38 | Cardiology Consultation ---
Date of Consultation August 19, 2022 Assessment & Plan (1) Staphylococcus aureus bacteremia with sepsis: (2) Sepsis due to pneumonia: (3) S/P TAVR (transcatheter aortic valve replacement): Plan Patient is a 71-year-old female admitted with pneumonia, bacteremia with 1 of 4 blood cultures growing Staph aureus concerning for Staph aureus bacteremia. Initially hemodynamically unstable consistent with sepsis now improved following antibiotic therapies, fluid resuscitation, transient pressor Patient referred with concerns with possible endocarditis giving indwelling bioprosthetic status post TAVR Patient referred for possible transesophageal echocardiogram and evaluation of possible endocarditis Patient currently stable hemodynamically but with significant cough and O2 demands. Has not been n.p.o., chart record of esophageal candidiasis. JAY currently contraindicated but will likely need to be performed this admission Echocardiogram transthoracic without visualized vegetation. Prosthetic valve appears intact without insufficiency or dysfunction. LV systolic function normal Recommendations: Continue to follow blood cultures and treat pneumonia, bacteremia EKG today and daily x3 JAY as patient clinical course progresses cardiology will follow to order History of Present Illness Requesting Physician: Dr. Fowler Attending Physician: Vitaly Fowler MD History of Present Illness Patient is a 71-year-old female with ongoing issues which include 1. Morbid obesity 2. Severe aortic stenosis status post TAVR 05/09/2019, 23 mm [place] ELIEZER S3 valve 3. Cardiac catheterization 03/20/2019, no obstructive coronary disease 4. Paroxysmal atrial fibrillation 5. Chronic obstructive lung disease with pneumonia 6. Past sacral ulcer healed Patient currently a resident of [facility] and was referred initially to [facility] with acute febrile illness and cough of several days duration. Blood cultures drawn / are growing Staph aureus per report patient required fluid resuscitation and pressor support initially due to hypotension. Currently hemodynamically improved since hospitalization initiation of antibiotic therapies. Patient referred now for consideration of transesophageal echocardiogram Currently only complaints are persistent cough exacerbated by minimal breathing and movement. Headache with cough Patient had 2 full meals today Currently denies chest pains, tachypalpitations, dizziness or lightheadedness. No syncope or near syncope. No neurologic complaints. Patient aware of fever and cough Very sedentary currently does not ambulate with walker as well as use wheelchair for mobility. No worsening edema. Sacral wounds per patient have healed. No bleeding difficulties melena medic easier dysuria hematuria Patient edentulous with dentures No prior history of intolerance of sedation. No prior history of esophageal or gastric ulcer, difficulty swallowing concerns currently with candidiasis esophagitis Patient has lost over 90 pounds in the course of multiple illnesses in the past 2 years Allergies Allergy/AdvReac Type Severity Reaction Status Date / Time dog dander Allergy Intermediate Sneezing Verified 03/20/19 08:57 egg Allergy SPECIFIC-DUCK Verified 03/20/19 08:57 EGG CAUSED FACIAL SWELLING pollen extracts Allergy HAYFEVER Verified 03/20/19 08:57 methylprednisolone AdvReac Unknown Verified 03/20/19 08:57 [From [facility]] Home Medications Medication Instructions Recorded Confirmed Type albuterol sulfate 90 mcg/actuation 2 puff inhalation QID PRN 01/02/18 08/18/22 History aerosol inhaler (Ventolin HFA) Shortness Of Breath Or Wheezing pantoprazole 40 mg tablet,delayed 40 mg PO BID 01/02/18 08/18/22 History release ferrous sulfate 325 mg (65 mg 325 mg PO DAILY@12 #30 tabs 07/21/18 08/18/22 Rx iron) tablet magnesium oxide 400 mg (241.3 mg 400 mg PO BID #60 tabs 07/21/18 08/18/22 Rx magnesium) tablet metoprolol succinate 25 mg capsule 25 mg PO QAM 09/04/18 08/18/22 History sprinkle, ext. release 24 hr acetaminophen 500 mg tablet 650 mg PO Q4 PRN Pain 10/17/18 08/18/22 History (Tylenol Extra Strength) amiodarone 200 mg tablet 200 mg PO QAM 10/17/18 08/18/22 History ascorbic acid (vitamin C) 500 mg 250 mg PO DAILY@12 10/17/18 08/18/22 History tablet aspirin 81 mg chewable tablet 81 mg PO DAILY 03/19/19 08/18/22 History fluticasone propionate 220 1 puff inhalation BID 03/19/19 08/18/22 History mcg/actuation HFA aerosol inhaler (Flovent HFA) clopidogrel 75 mg tablet 75 mg PO DAILY 04/03/22 08/18/22 History ipratropium 0.5 mg-albuterol 3 mg 3 ml inhalation Q6H PRN Shortness 04/03/22 08/18/22 History (2.5 mg base)/3 mL nebulization Of Breath Or Wheezing soln levothyroxine 25 mcg tablet 25 mcg PO DAILY 04/03/22 08/18/22 History simvastatin 10 mg tablet 10 mg PO HS 04/03/22 08/18/22 History topiramate 25 mg tablet 25 mg PO BID 04/03/22 08/18/22 History furosemide 20 mg tablet 40 mg PO QAM #30 tabs 04/06/22 08/18/22 Rx famotidine 10 mg tablet 10 mg PO DAILY 04/13/22 08/18/22 History ketoconazole 2 % topical cream 1 applic topical BID PRN Rash 04/13/22 08/18/22 History tramadol 50 mg tablet 50 mg PO HS PRN headache or 06/15/22 08/18/22 Rx arthritis pain 5 days #5 tabs Patient History Medical History Aortic stenosis Atrial fibrillation Cardiac murmur CHF (congestive heart failure) CKD (chronic kidney disease), stage III COPD (chronic obstructive pulmonary disease) Dyslipidemia GERD (gastroesophageal reflux disease) History of migraine Kidney stones Migraine Obesity Osteoarthritis Paroxysmal atrial fibrillation Sepsis due to pneumonia SOB (shortness of breath) on exertion Stomach ulcer HX Tobacco abuse quit 3 months ago Surgical History History of colonoscopy History of cystoscopy History of esophagogastroduodenoscopy (EGD) Hx of cholecystectomy Family History Father Family history of diabetes mellitus Social History Smoking Status: Former smoker Tobacco Type: Cigarettes Cigarettes Per Day: QUIT 2 MONTHS AGO; Second Hand Exposure: No; Do You Dip or Chew Tobacco: No; Hx Alcohol Use: No Hx Substance Use: No Preferred Language: Georgian Communication Ability: Effective Freezer Operator Required: No Beliefs That Will Affect Care: None Current Living Situation: Senior Living Current Living Situation Comment: lives in a trailer with sister Feels Safe at Home: No Is there a partner from a previous relationship who is making you feel unsafe now?: No Assistive Devices: Walker and Wheelchair Review of Systems Review of Systems: All systems reviewed & are unremarkable except as noted in HPI & below Physical Exam Constitutional: + morbidly obese; no acute distress Eyes: PERRL, conjunctivae normal, anicteric sclerae ENMT: external ear and nose normal, oropharynx normal Mouth: + edentulous Neck: trachea midline, no thyromegaly Respiratory: Auscultation: + diminished lung sounds and + rhonchi (Bibasilar right greater than left) Cardiovascular: Rate/Rhythm: regular rate and regular rhythm Heart Sounds: + murmur (Grade 2/6 systolic) Vessels: no JVD Extremities: no edema Gastrointestinal (Abdomen): Percussion/Palpation: abdomen soft; abdomen nontender, no guarding and no hepatosplenomegaly Musculoskeletal: no cyanosis or clubbing, extremities motor strength 5/5 Skin: no rashes, warm and dry No peripheral lesions fingers toes Results & Data Vital Signs (Past 12 Hours) Vital Signs Temp Pulse Pulse Resp BP BP Pulse Ox 08/19/22 12:00 73 23 96 08/19/22 11:00 70 23 96 08/19/22 10:56 114/47 L 08/19/22 10:56 77 22 94 08/19/22 10:32 105/56 L 08/19/22 10:32 73 22 93 08/19/22 10:27 75 20 94 08/19/22 10:27 112/64 08/19/22 10:00 71 19 98 08/19/22 09:00 77 25 H 97 08/19/22 08:00 81 20 96 08/19/22 07:01 113/35 L 08/19/22 07:01 84 24 96 08/19/22 07:00 84 30 H 96 08/19/22 06:01 88 24 96 08/19/22 06:01 114/47 L 08/19/22 11:09 36.7 C 64 20 114/56 L 95 08/19/22 10:37 65 22 105/56 L 95 08/19/22 08:00 08/19/22 08:00 88 08/19/22 07:34 36.7 C 84 22 113/35 L 95 08/19/22 06:00 88 24 96 O2 Del Method O2 Flow Rate 08/19/22 12:00 08/19/22 11:00 08/19/22 10:56 08/19/22 10:56 08/19/22 10:32 08/19/22 10:32 08/19/22 10:27 08/19/22 10:27 08/19/22 10:00 08/19/22 09:00 08/19/22 08:00 08/19/22 07:01 08/19/22 07:01 08/19/22 07:00 08/19/22 06:01 08/19/22 06:01 08/19/22 11:09 Nasal Cannula 3 08/19/22 10:37 Nasal Cannula 3 08/19/22 08:00 Nasal Cannula 3 08/19/22 08:00 08/19/22 07:34 Nasal Cannula 3 08/19/22 06:00 Laboratory Results Laboratory Results - last 24 hr 08/19/22 08/19/22 08/19/22 03:55 05:22 05:22 WBC 15.24 H RBC 3.71 L Hgb 11.6 L Hct 36.6 L MCV 98.7 MCH 31.3 MCHC 31.7 L RDW Std Deviation 59.6 H RDW Coeff of Moni 16.4 H Plt Count 151 MPV 12.2 Sodium Potassium Chloride Carbon Dioxide Anion Gap BUN Creatinine Est Cr Clr Drug Dosing Est GFR ( Amer) Est GFR (Non-Af Amer) BUN/Creatinine Ratio Glucose POC Glucose Calcium Phosphorus Magnesium Total Bilirubin AST ALT Alkaline Phosphatase Total Protein Albumin Globulin Albumin/Globulin Ratio Urine Color Yellow Urine Appearance Cloudy A Urine pH 6.0 Ur Specific Telferner 1.018 Urine Protein 1+ H Urine Glucose (UA) Negative Urine Ketones Trace H Urine Blood 2+ H Urine Nitrite Negative Urine Bilirubin Negative Urine Urobilinogen Negative Ur Leukocyte Esterase Trace H Urine WBC (Auto) 10-30 H Urine RBC (Auto) 0-4 U Hyaline Cast (Auto) 1-5 U Epithel Cells (Auto) >30 H Urine Bacteria (Auto) Negative Urine Yeast Budding A Random Vancomycin 14.2 08/19/22 08/19/22 05:22 07:11 WBC RBC Hgb Hct MCV MCH MCHC RDW Std Deviation RDW Coeff of Moni Plt Count MPV Sodium 137 Potassium 4.1 Chloride 108 H Carbon Dioxide 25 Anion Gap 4 BUN 22 Creatinine 1.48 H Est Cr Clr Drug Dosing 49.3 Est GFR ( Amer) 40.3 Est GFR (Non-Af Amer) 34.8 BUN/Creatinine Ratio 14.9 Glucose 109 H POC Glucose 164 H Calcium 9.0 Phosphorus 2.4 L Magnesium 1.9 Total Bilirubin 0.5 AST 12 L ALT 8 Alkaline Phosphatase 97 Total Protein 6.8 Albumin 3.1 L Globulin 3.7 Albumin/Globulin Ratio 0.8 L Urine Color Urine Appearance Urine pH Ur Specific Telferner Urine Protein Urine Glucose (UA) Urine Ketones Urine Blood Urine Nitrite Urine Bilirubin Urine Urobilinogen Ur Leukocyte Esterase Urine WBC (Auto) Urine RBC (Auto) U Hyaline Cast (Auto) U Epithel Cells (Auto) Urine Bacteria (Auto) Urine Yeast Random Vancomycin Diagnostic Findings Echocardiogram 08/19/2022, fair technical quality Normal left good size and moderate left hypertrophy No wall motion abnormalities EF 65-70% Bioprosthetic aortic valve (TAVR) with poorly visualized leaflets Mild thickening of the posterior mitral valve leaflet similar to prior study of 04/03/2022 Prosthetic aortic valve velocities mildly elevated in comparison to last study of 04/03/2022 but reduced in comparison to prior outpatient study
[2022-08-19] MEDS: SIMVASTATIN 10 MG TAB PO SCH (21:28)
[2022-08-19] MEDS: traMADol HCL 50 MG TABLET PO PRN (21:31)
[2022-08-20] MEDS: HEPARIN SOD 5,000 UNIT/0.5 ML VIAL SQ SCH ×3 (00:17→16:08)
[2022-08-20] MEDS: CEFEPIME 2,000 MG in SYRINGE 0 ML IV SCH ×2 (04:16→16:09)
[2022-08-20 05:06] LABS: Hematocrit (blood only) 35.9 % (37.0-47.0); Hemoglobin 11.5 g/dl (12.0-16.0); Mean Corpuscular Hemoglobin 31.7 pg (25.0-34.0); Mean Corpuscular Volume 98.9 fL (80.0-100.0); Mean Platelet Volume 11.6 fL (9.4-12.4); Platelet Count 163 K/uL (130-400); RDW Coefficient of Variation 16.3 % (11.5-14.5); RDW Standard Deviation 60.1 fL (36.4-46.3); Red Blood Count 3.63 M/uL (4.20-5.40); White Blood Count 13.13 K/ul (4.8-10.8)
[2022-08-20 05:16] LABS: BUN Creatinine Ratio 12.9 (10-20); Calcium 9.1 mg/dl (8.6-10.3); Creatinine Clr Calc Pharmacy 52.1 ml/min; Est GFR (African American) 43.1 ml/min; Est GFR (Non-African American) 37.2 ml/min; Magnesium 2.2 mg/dl (1.7-2.4); Phosphorus 2.8 mg/dl (2.5-4.9); Potassium 4.7 mmol/L (3.5-5.1)
[2022-08-20] MEDS: LEVOTHYROXINE SODIUM 25 MCG TABLET PO SCH (07:03)
[2022-08-20] MEDS: NOREPINEPHRINE/D5W 4 MG/250 ML PLCT IV SCH (07:21)
[2022-08-20] MEDS: METOPROLOL SUCC 25MG EXT REL TAB PO SCH (08:35)
--- NOTE | 2022-08-20 09:01 | Hospitalist Progress Note ---
Date of Service August 20, 2022 Assessment & Plan (1) COPD (chronic obstructive pulmonary disease): (2) CHF (congestive heart failure): (3) Dyslipidemia: (4) Hypoxia: (5) Atrial fibrillation with rapid ventricular response: (6) Paroxysmal atrial fibrillation: (7) Sepsis due to pneumonia: Plan: (1) COPD (chronic obstructive pulmonary disease): (2) CHF (congestive heart failure): (3) Dyslipidemia: (4) Hypoxia: (5) Atrial fibrillation with rapid ventricular response: (6) Paroxysmal atrial fibrillation: (7) Sepsis due to pneumonia: Plan Ms. Celia Marshall is a 71-year-old female that was a direct transfer from [facility]. Patient was transferred to [facility] from local nursing facility after being found febrile with a temperature of 103 F. Patient appeared septic with unclear source. Patient was hypotensive at [facility] and started on Levophed. Chest x-ray there showed pulmonary congestion. Urinalysis at that time was negative. She was started on IV Vancomycin and cefepime there. Patient was recently admitted to [facility] in May 26 - 06/14 with ambulatory dysfunction. Patient has history of extensive sacral ulcers (now healed) and was transferred to a nursing facility upon discharge due to inability of caring for herself at home. Most recent echo 04/14; EF 70%, G1 DD X, bioprosthetic aortic valve. Septic shock secondary to pna, bacteremia MRSA pna , parainfluenza infection Bacteremia w/ staph, hx of bioprosthetic valve - poss. endocarditis WBC 13.64, down from what it was at [facility] febrile 103F; afebrile at [facility] CXR mild cardiomegaly Chest CT suggestive of RLL PNA at [facility] Hypotensive on arrival and was on Levophed; hypotension has resolved and pressors stopped. [facility] blood cultures positive - called the hospital - report Staph infection - followup on final results and sensitivities Vanco and Cefepime started and will continue. Suspected bacteremia; final blood cultures pending Blood cultures ordered here and pending (although already on treatment) Lactate normal 1.[address] chest scan is abnormal and per ICU repeat 6-8 weeks time to determine resolution Given history of TAVR, bacteremia, echo ordered LV is normal in size. Moderate concentric LVH. LV wall motion is normal. EF 65 to 70%. Grade 1 diastolic dysfunction. There is a bioprosthetic aortic valve. Prosthetic valve gradients have points of normal and slightly increased from prior study of March 2020. There is mild thickening of the posterior m itral valve leaflet similar to prior study in March 2022. Tricuspid valve is not well visualized. ID and cardiology consulted -appreciate their input ID - Continue vancomycin iv to maintain trough 15-20, closely monitoring renal function - Contact [facility] for susceptibility of the Staph. If MSSA, switch vancomycin iv to nafcillin 2 gm iv q4 hours. - Need JAY to r/o prosthetic valve endocarditis - Consider MRI of brain to r/o embolic event - pt is refusing MRI - F/u repeat blood cultures (08/18). - Supportive care for parainfluenza infection Cardiology consulted - managing amiodarone and metoprolol given low BP -Performing JAY during this hospital stay for further assessment of bacteremia and potential risk for endocarditis is certainly a consideration, however would recommend patient has optimized more from a respiratory standpoint prior to sedation, and will work on this. CKD Stage III: Creatinine 1.28, at baseline today 1.5 Paroxysmal atrial fibrillation: Takes Metoprolol and Amiodarone; continue Not anticoagulated due to history of GI bleeding Chronic diastolic CHF due to valvular disease: S/p TAVR: Echo 03/2022-EF > 70%, grade 1 diastolic dysfunction, normal gradient for bioprosthetic aortic valve Appeared euvolemic on admission Continue Plavix Given history of TAVR, bacteremia, echo ordered LV is normal in size. Moderate concentric LVH. LV wall motion is normal. EF 65 to 70%. Grade 1 diastolic dysfunction. There is a bioprosthetic aortic valve. Prosthetic valve gradients have points of normal and slightly increased from prior study of March 2020. There is mild thickening of the posterior mitral valve leaflet similar to prior study in March 2022. Tricuspid valve is not well visualized. Discussed w/ cardiology - plan for JAY, further recommendations after their evaluation Hypothyroidism: Takes Synthroid; continue History of migraines: Takes Topiramate; continue Sacral wound: Appears to be healing well WOCN consulted Disposition: PCP: Dr. Ramirez Code Status: Full Code VTE Prophylaxis: Heparin SQ Admission and Anticipated Discharge Date Admission Date: August 18, 2022 Subjective Pt seen in follow up of sepsis, bacteremia - hx of bioprosth. valve, + parainfluenza, pna Currently laying in bed, in no acute distress She is awake alert oriented answering simple questions appropriately Patient's sister present at the bedside. Continues to have a cough. Also reports persistent headache. Says she is history of migraine headaches. ID was also consulted and recommended MRI angio of brain to rule out any septic emboli, patient refusing MRI. Cardiology also consulted and following closely. Review of Systems Review of Systems: All systems reviewed & are unremarkable except as noted in Subjective Physical Exam Physical Exam: General: Morbidly obese female, laying in bed, in no acute distress, on suppleme ntal oxygen HEENT: head normocephalic, moist mucus membranes CV: S1/S2, (-) M/G/R, (-) edema Resp: + crackles, + rhonchi, on suppl. O2 2L GI: Abdomen S/NT/ND, Ax4 bowel sounds, obese Musculoskeletal: moves extremities Neuro: alert and oriented, PERRL, speech fluent, no facial asymmetry, moves extremities Skin: warm, dry Results & Data Results & Data Vital Signs (Past 12 Hours) Vital Signs Temp Pulse Pulse Resp BP BP Pulse Ox 08/20/22 08:33 72 20 99/36 L 95 08/20/22 08:00 08/20/22 08:04 73 08/20/22 04:00 37 C 74 20 102/66 102/66 95 08/20/22 00:08 36.9 C 68 18 90/42 L 90/42 L 95 O2 Del Method O2 Flow Rate 08/20/22 08:33 Nasal Cannula 2 08/20/22 08:00 Nasal Cannula 2 08/20/22 08:04 08/20/22 04:00 Nasal Cannula 3 08/20/22 00:08 Nasal Cannula 2 Laboratory Results 08/20/22 08/20/22 08/20/22 Range/Units 04:40 04:40 04:40 WBC 13.13 H (4.8-10.8) K/ul RBC 3.63 L (4.20-5.40) M/uL Hgb 11.5 L (12.0-16.0) g/dl Hct 35.9 L (37.0-47.0) % MCV 98.9 (80.0-100.0) fL MCH 31.7 (25.0-34.0) pg MCHC 32.0 (32.0-36.0) g/dL RDW Std Deviation 60.1 H (36.4-46.3) fL RDW Coeff of Moni 16.3 H (11.5-14.5) % Plt Count 163 (130-400) K/uL MPV 11.6 (9.4-12.4) fL Sodium 140 (136-145) mmol/L Potassium 4.7 (3.5-5.1) mmol/L Chloride 110 H (98-107) mmol/L Carbon Dioxide 25 (21-32) mmol/L Anion Gap 5 (3-11) BUN 18 (6-23) mg/dl Creatinine 1.40 H (0.6-1.2) mg/dl Est Cr Clr Drug Dosing 52.1 ml/min Est GFR ( Amer) 43.1 ml/min Est GFR (Non-Af Amer) 37.2 ml/min BUN/Creatinine Ratio 12.9 (10-20) Glucose 99 (70-99(Fasting)) mg/dl Calcium 9.1 (8.6-10.3) mg/dl Phosphorus 2.8 (2.5-4.9) mg/dl Magnesium 2.2 (1.7-2.4) mg/dl Random Vancomycin 12.2 (10-20) mcg/ml Medications Administered Current Inpatient Medications Acetaminophen (Acetaminophen 325 Mg Tab) 650 mg PO Q4H PRN PRN Reason: Pain or Fever Stop: 09/17/22 10:18 Last Admin: 08/19/22 16:38 Dose: 650 mg Al Hydrox/Mg Hydrox/Simethicone (Aluminum/Magnesium Susp 30 Ml Udc) 15 ml PO Q4H PRN PRN Reason: Dyspepsia Stop: 09/17/22 10:18 Albuterol (Albut/Ipratrop 3mg/0.5mg Neb 3 Ml Vial) 3 ml INH Q6H PRN; Protocol PRN Reason: Shortness Of Breath Or Wheezing Stop: 09/17/22 14:40 Amiodarone HCl (Amiodarone 200 Mg Tab) 200 mg PO QAM [facility] Stop: 09/18/22 08:59 Last Admin: 08/19/22 08:04 Dose: 200 mg Ascorbic Acid (Ascorbic Acid 500 Mg Tab) 250 mg PO DAILY@12 [facility] Stop: 09/17/22 11:59 Last Admin: 08/19/22 11:38 Dose: 250 mg Aspirin (Aspirin 81 Mg Chew) 81 mg PO DAILY [facility] Stop: 09/18/22 08:59 Last Admin: 08/19/22 08:02 Dose: 81 mg Clopidogrel Bisulfate (Clopidogrel Bisulfate 75 Mg Tab) 75 mg PO DAILY [facility] Stop: 09/18/22 08:59 Last Admin: 08/19/22 08:03 Dose: 75 mg Famotidine (Famotidine 10 Mg Tablet) 10 mg PO DAILY [facility] Stop: 09/18/22 08:59 Last Admin: 08/19/22 08:03 Dose: 10 mg Ferrous Sulfate (Ferrous Sulfate 325 Mg Tab) 325 mg PO DAILY@12 [facility] Stop: 09/17/22 11:59 Last Admin: 08/19/22 11:39 Dose: 325 mg Fluticasone Furoate (Fluticasone Furoate 100mcg 14 Puffs/Inhaler) 1 puffs INH QAM [facility] Stop: 09/17/22 11:44 Last Admin: 08/19/22 08:01 Dose: 1 puffs Furosemide (Furosemide 40 Mg Tab) 40 mg PO QAM [facility] Stop: 09/18/22 08:59 Heparin Sodium (Porcine) (Heparin Sod 5,000 Unit/0.5 Ml Vial) 5,000 units SQ Q8H [facility] Stop: 09/17/22 16:14 Last Admin: 08/20/22 00:17 Dose: 5,000 units Cefepime HCl 2,000 mg/ Syringe 20 mls @ 5 mls/min IV Q12H [facility]; Protocol Stop: 09/01/22 15:59 Last Admin: 08/20/22 04:16 Dose: 5 mls/min Vancomycin HCl 1,000 mg/ (Sodium Chloride) 270 mls @ 200 mls/hr IV Q18H [facility]; Protocol Stop: 09/01/22 21:59 Last Infusion: 08/19/22 16:49 Dose: Infused Ketoconazole (Ketoconazole 2% Cr 15 Gm Tube) 1 appln EXT BID PRN PRN Reason: Rash Stop: 08/28/22 11:14 Last Admin: 08/19/22 16:38 Dose: 1 appln Levothyroxine Sodium (Levothyroxine Sodium 25 Mcg Tablet) 25 mcg PO DAILYBB [facility] Stop: 09/18/22 06:29 Last Admin: 08/20/22 07:03 Dose: Not Given Magnesium Hydroxide (Magnesium Hydroxide Susp 30 Ml Udc) 30 ml PO Q12H PRN PRN Reason: Constipation Stop: 09/17/22 10:18 Magnesium Oxide (Magnesium Oxide 400 Mg Tab) 400 mg PO BID [facility] Stop: 09/17/22 20:59 Last Admin: 08/19/22 21:28 Dose: 400 mg Metoprolol Succinate (Metoprolol Succ 25mg Ext Rel Tab) 25 mg PO QAM [facility] Stop: 09/18/22 08:59 Last Admin: 08/20/22 08:35 Dose: Not Given Miscellaneous Information (Vancomycin Consult Active) 1 each N/A UD PRN PRN Reason: Consult Stop: 09/17/22 12:44 Ondansetron HCl (Ondansetron Inj 2 Mg/Ml 2 Ml Vial) 4 mg IV Q6H PRN PRN Reason: Nausea Stop: 09/17/22 10:18 Last Admin: 08/19/22 21:32 Dose: 4 mg Pantoprazole Sodium (Pantoprazole 40 Mg Tab) 40 mg PO BID [facility] Stop: 09/17/22 20:59 Last Admin: 08/19/22 21:28 Dose: 40 mg Polyethylene Glycol (Polyethylene (Miralax) 17 Gm Pack) 17 gm PO DAILY PRN PRN Reason: Constipation Stop: 09/17/22 10:18 Simvastatin (Simvastatin 10 Mg Tab) 10 mg PO HS [facility] Stop: 09/17/22 20:59 Last Admin: 08/19/22 21:28 Dose: 10 mg Topiramate (Topiramate 25 Mg Tab) 25 mg PO BID [facility] Stop: 09/17/22 20:59 Last Admin: 08/19/22 21:28 Dose: 25 mg Tramadol HCl (Tramadol Hcl 50 Mg Tablet) 50 mg PO HS PRN PRN Reason: headache or arthritis pain Stop: 09/17/22 11:14 Last Admin: 08/19/22 21:31 Dose: 50 mg
--- NOTE | 2022-08-20 09:46 | Pharmacy Report ---
Pharmacy PK ABX Note - Date of Service August 20, 2022 - Assessment and Plan Assessment 08/20: Blood culture at outside facility with Staph species. In-house blood cultures remain negative. Sputum culture with MRSA. ID recommended JAY to rule out endocarditis given hx bioprosthetic aortic valve. Random vancomycin level this AM associated with subtherapeutic AUC. Will increase vancomycin. 08/19: Blood cultures at our facility currently negative at 24 hours, reports of + BC at outside facility ([facility] in [facility])- will need follow-up for further results, sputum culture growing staph sp. Random level this morning 14.2- predicting slightly above goal range at steady state, however, continue at this dose for now pending renal function changes/PK with early dosing still in low therapeutic range. WBC increased today. May need more aggressive dosing, will get random level again tomorrow to continue evaluating dose. ID has been consulted. 08/18 71 year old F receiving EMPIRIC cefepime/vancomycin for treatment of sepsis. Pertinent microbiologic data includes: Positive MRSA Nasal Swab, blood cultures pending. Plan Vancomycin * Increase maintenance dose to 1000 mg IV every 12 hours * Regimen is predicted to achieve target AUC/SATYA of 400-600 mg/L.hr * Random level ordered for 5/1 AM Pharmacy will continue to follow and will adjust dose/frequency as necessary. Thank you. Pharmacy has transitioned to AUC monitoring for vancomycin. AUC/SATYA is the preferred PK/PD target and is associated with decreased risk of nephrotoxicity compared to traditional trough targets.
[2022-08-20] MEDS: VANCOMYCIN HCL 1,000 MG in SODIUM CHLORIDE 0.9% 250 ML IV SCH (09:49)
[2022-08-20] MEDS: TOPIRAMATE 25 MG TAB PO SCH ×2 (09:50→20:11)
[2022-08-20] MEDS: FAMOTIDINE 10 MG TABLET PO SCH (09:50)
[2022-08-20] MEDS: PANTOprazole 40 MG TAB PO SCH ×2 (09:50→20:10)
[2022-08-20] MEDS: CLOPIDOGREL BISULFATE 75 MG TAB PO SCH (09:51)
[2022-08-20] MEDS: MAGNESIUM OXIDE 400 MG TAB PO SCH ×2 (09:51→20:10)
[2022-08-20] MEDS: ASPIRIN 81 MG CHEW PO SCH (09:51)
[2022-08-20] MEDS: FLUTICASONE FUROATE 100MCG 14 PUFFS/INHALER INH SCH (10:20)
[2022-08-20] MEDS: AMIODARONE 200 MG TAB PO SCH (11:17)
[2022-08-20] MEDS: ASCORBIC ACID 500 MG TAB PO SCH (12:01)
[2022-08-20] MEDS: FERROUS SULFATE 325 MG TAB PO SCH (12:01)
[2022-08-20] MEDS: ACETAMINOPHEN 325 MG TAB PO PRN (12:07)
--- NOTE | 2022-08-20 12:35 | Cardiology Progress Note ---
Date of Service August 20, 2022 Assessment & Plan (1) Parainfluenza virus pneumonia: Plan: - Patient with a chief complaint of headache and cough, without jeana fever. Her chief complaint certainly correlates with the findings of parainfluenza virus on the respiratory panel and clinical findings consistent with pneumonia. Oxygen saturation 96% on 2 L nasal cannula. -MRSA also noted in her sputum -Continue supportive care (2) Staphylococcus aureus bacteremia with sepsis: Plan: - The patient had initially presented to [facility] where she was admitted for 24 hours or less. Reportedly, a telephone report was provided by [facility] stating that 1 of 4 blood cultures was positive for Staph aureus. Report not available for review at present. Further culture results and identification not available, but efforts are underway to get those records. -Agree with empiric antibiotics for now. (3) Open wound of buttock: Plan: - Patient with history of an open wound to the buttock. This has healed since her presentation 2 months ago. This history of course would increase her risk for systemic infection (4) S/P TAVR (transcatheter aortic valve replacement): Plan: - History of transcatheter aortic valve replacement (performed at [facility] 05/09/2019). Transthoracic echocardiogram technically limited due to patient's body habitus. -No obstructive CAD noted on pre-TAVR coronary angiography 03/20/2019 ([facility]) -Performing JAY during this hospital stay for further assessment of bacteremia and potential risk for endocarditis is certainly a consideration, however would recommend patient has optimized more from a respiratory standpoint prior to sedation, and will work on this. (5) Atrial fibrillation: Plan: -Sinus rhythm noted on telemetry - Patient has history of paroxysmal atrial fibrillation. She is not anticoagulated due to apparent history of gastrointestinal bleeding. -Continue amiodarone 200 mg daily. This medication typically does not cause low blood pressure -Metoprolol succinate 25 mg held today for systolic blood pressure of 99 mm hg. Admission and Anticipated Discharge Date Admission Date: August 18, 2022 Subjective Patient seen in cardiology follow-up. She is on isolation due to findings of parainfluenza virus as well as sputum culture finding of MRSA.. Her sister accompanies her at the bedside. The patient describes chief complaint prompting initial presentation to [facility] of the headache and cough illness. Per review of her record, she had been admitted to the [facility] 2 months ago in May, with primary diagnosis of ambulatory dysfunction. She was also however noted to have an open wound of the buttock at that time. Posthospital, she has been residing in a residential home facility in the meantime. She denies any subjective fevers or chills. Notes ongoing cough and just feeling generalized laziness. Vital signs reveal that she is afebrile. Review of Systems Review of Systems: All systems reviewed & are unremarkable except as noted in HPI & below Physical Exam Constitutional: + ill appearing and + morbidly obese; no acute distress Respiratory: Auscultation: + diminished lung sounds (Coarse breath sounds bilaterally at the bases) Cardiovascular: Rate/Rhythm: regular rate and regular rhythm (Auscultation limited by body habitus, heart sounds are faint) Extremities: no edema Gastrointestinal (Abdomen): normal bowel sounds, soft, nontender, no hepatosplenomegaly Neurologic: PERRL, EOMI, accommodation nl, no face palsy, no dysarthria (Conversant, follows commands) Results & Data Vital Signs (Past 12 Hours) Vital Signs Temp Pulse Pulse Resp BP BP Pulse Ox 08/20/22 11:28 36.8 C 77 16 115/51 L 96 08/20/22 08:33 72 20 99/36 L 95 08/20/22 08:00 08/20/22 08:04 73 08/20/22 04:00 37 C 74 20 102/66 102/66 95 O2 Del Method O2 Flow Rate 08/20/22 11:28 Nasal Cannula 2 08/20/22 08:33 Nasal Cannula 2 08/20/22 08:00 Nasal Cannula 2 08/20/22 08:04 08/20/22 04:00 Nasal Cannula 3 Laboratory Results CBC 08/20/22 Range/Units 04:40 WBC 13.13 H (4.8-10.8) K/ul RBC 3.63 L (4.20-5.40) M/uL Hgb 11.5 L (12.0-16.0) g/dl Hct 35.9 L (37.0-47.0) % Plt Count 163 (130-400) K/uL Comprehensive Metabolic Panel 08/20/22 Range/Units 04:40 Sodium 140 (136-145) mmol/L Potassium 4.7 (3.5-5.1) mmol/L Chloride 110 H (98-107) mmol/L Carbon Dioxide 25 (21-32) mmol/L BUN 18 (6-23) mg/dl Creatinine 1.40 H (0.6-1.2) mg/dl Glucose 99 (70-99(Fasting)) mg/dl Calcium 9.1 (8.6-10.3) mg/dl Intake and Output 08/19/22 08/20/22 08/20/22 22:59 06:59 14:59 Intake Total 770 / 1120 0 / 1120 270 / 270 Output Total Balance 766 / 1113 -1 / 1113 270 / 270 Intake: IV 270 / 270 270 / 270 Vancomycin HCl 1,000 mg In 270 / 270 270 / 270 Sodium Chloride 0.9% 250 ml @ 200 mls/hr IV Q18H [facility] Rx#: [id number] Oral 500 / 850 0 / 850 Output: # Bowel Movements Other: # Unmeasured Voids 4 2
--- NOTE | 2022-08-20 14:46 | CT Scan Report ---
CT SCAN OF THE BRAIN WITHOUT IV CONTRAST CLINICAL HISTORY: Headache. COMPARISON STUDY: CT of the brain dated 07/16/2018. TECHNIQUE: Unenhanced axial CT scan of the brain is performed from the vertex to the skull base. A do se lowering technique was utilized adhering to the principles of ALARA. CT DOSE: 884.08 mGy.cm FINDINGS: Brain parenchyma: There is age-related involutional change noting mild subcortical and periventricula r microangiopathic disease. There is no hemorrhage, mass effect, or evidence of acute territorial isc hemia by CT criteria. Dinh-white matter differentiation is preserved. No extra-axial fluid collection is seen. Ventricles, sulci, cisterns: Prominent secondary to involutional change. Intracranial vasculature: There is atherosclerotic calcification of the cavernous carotid and vertebr al arteries. Calvarium: Unremarkable. Sinuses and mastoids: There is [id number] mucosal thickening within the maxillary antra with ai r-fluid levels. There is moderate mucosal thickening within the ethmoid sinuses. Mucosal thickening a nd fluid is seen within the sphenoid sinuses. There is trace mucosal thickening in the frontal sinuse s. The mastoid air cells are well pneumatized. Orbits: The bony orbits are grossly intact. There is a left ocular lens implant. IMPRESSION: 1. There is no hemorrhage, mass effect, or evidence of acute territorial ischemia by CT criteria. 2. Pansinus disease as above. Correlate clinically for evidence of acute sinusitis. ACT 112: Negative or not required by law. Electronically signed by: Sterling London M.D. 08/20/2022 2:44 PM
[2022-08-20] MEDS ORDERED: BUTALBITAL/ACETAMIN/CAFFEINE TAB PO ONE (16:00)
[2022-08-20] MEDS: traMADol HCL 50 MG TABLET PO PRN (20:10)
[2022-08-20] MEDS: SIMVASTATIN 10 MG TAB PO SCH (20:11)
[2022-08-20] MEDS ORDERED: VANCOMYCIN HCL 1,000 MG in SODIUM CHLORIDE 0.9% 250 ML IV SCH (22:00)
[2022-08-21] MEDS: HEPARIN SOD 5,000 UNIT/0.5 ML VIAL SQ SCH ×3 (00:21→17:07)
[2022-08-21] MEDS ORDERED: COUGH DROP (SUGAR FREE) LOZ 24 LOZ/1 BOX BUCCAL ONE (00:24)
[2022-08-21] MEDS: CEFEPIME 2,000 MG in SYRINGE 0 ML IV SCH ×2 (04:28→16:42)
[2022-08-21 04:44] LABS: Hematocrit (blood only) 35.2 % (37.0-47.0); Hemoglobin 11.4 g/dl (12.0-16.0); Mean Corpuscular Hemoglobin 31.5 pg (25.0-34.0); Mean Corpuscular Hgb Conc 32.4 g/dL (32.0-36.0); Mean Corpuscular Volume 97.2 fL (80.0-100.0); Mean Platelet Volume 11.3 fL (9.4-12.4); Platelet Count 202 K/uL (130-400); RDW Coefficient of Variation 16.5 % (11.5-14.5); Red Blood Count 3.62 M/uL (4.20-5.40); White Blood Count 12.07 K/ul (4.8-10.8)
[2022-08-21] MEDS: ACETAMINOPHEN 325 MG TAB PO PRN (04:46)
[2022-08-21 04:58] LABS: BUN Creatinine Ratio 14.2 (10-20); Calcium 8.7 mg/dl (8.6-10.3); Creatinine Clr Calc Pharmacy 68.8 ml/min; Est GFR (African American) 60.3 ml/min; Magnesium 2.1 mg/dl (1.7-2.4); Phosphorus 2.3 mg/dl (2.5-4.9); Potassium 4.4 mmol/L (3.5-5.1)
[2022-08-21] MEDS: LEVOTHYROXINE SODIUM 25 MCG TABLET PO SCH (05:16)
--- NOTE | 2022-08-21 07:40 | Hospitalist Progress Note ---
Date of Service August 21, 2022 Assessment & Plan (1) COPD (chronic obstructive pulmonary disease): (2) CHF (congestive heart failure): (3) Dyslipidemia: (4) Hypoxia: (5) Atrial fibrillation with rapid ventricular response: (6) Paroxysmal atrial fibrillation: (7) Sepsis due to pneumonia: Plan: (1) COPD (chronic obstructive pulmonary disease): (2) CHF (congestive heart failure): (3) Dyslipidemia: (4) Hypoxia: (5) Atrial fibrillation with rapid ventricular response: (6) Paroxysmal atrial fibrillation: (7) Sepsis due to pneumonia: Plan Ms. Celia Marshall is a 71-year-old female that was a direct transfer from [facility]. Patient was transferred to [facility] from local nursing facility after being found febrile with a temperature of 103 F. Patient appeared septic with unclear source. Patient was hypotensive at [facility] and started on Levophed. Chest x-ray there showed pulmonary congestion. Urinalysis at that time was negative. She was started on IV Vancomycin and cefepime there. Patient was recently admitted to [facility] in May 26 - 06/14 with ambulatory dysfunction. Patient has history of extensive sacral ulcers (now healed) and was transferred to a nursing facility upon discharge due to inability of caring for herself at home. Most recent echo 04/14; EF 70%, G1 DD X, bioprosthetic aortic valve. Septic shock secondary to pna, bacteremia MRSA pna , parainfluenza infection Bacteremia w/ staph, hx of bioprosthetic valve - poss. endocarditis WBC 13.64, down from what it was at [facility] febrile 103F; afebrile at [facility] CXR mild cardiomegaly Chest CT suggestive of RLL PNA at [facility] Hypotensive on arrival and was on Levophed; hypotension has resolved and pressors stopped. [facility] blood cultures positive - called the hospital - report Staph infection - followup on final results and sensitivities Vanco and Cefepime started and will continue. Suspected bacteremia; final blood cultures pending Blood cultures ordered here and pending (although already on treatment) - so far negat. for 48 hrs Lactate normal 1.[address] chest scan is abnormal and per ICU repeat 6-8 weeks time to determine resolution Given history of TAVR, bacteremia, echo ordered LV is normal in size. Moderate concentric LVH. LV wall motion is normal. EF 65 to 70%. Grade 1 diastolic dysfunction. There is a bioprosthetic aortic valve. Prosthetic valve gradients have points of normal and slightly increased from prior study of March 2020. There is mild thickening of the posterior mitral valve leaflet similar to prior study in March 2022. Tricuspid valve is not well visualized. ID and cardiology consulted -appreciate their input ID - Continue vancomycin iv to maintain trough 15-20, closely monitoring renal function - Contact [facility] for susceptibility of the Staph. If MSSA, switch vancomycin iv to nafcillin 2 gm iv q4 hours. - Need JAY to r/o prosthetic valve endocarditis - Consider MRI of brain to r/o embolic event - pt is refusing MRI - F/u repeat blood cultures (08/18). - Supportive care for parainfluenza infection Cardiology consulted - managing amiodarone and metoprolol given low BP -Performing JAY during this hospital stay for further assessment of bacteremia and potential risk for endocarditis is certainly a consideration, however would recommend patient has optimized more from a respiratory standpoint prior to sedation, and will work on this. CKD Stage III: Creatinine 1 today Paroxysmal atrial fibrillation: Takes Metoprolol and Amiodarone; continue as per cardiology Not anticoagulated due to history of GI bleeding Chronic diastolic CHF due to valvular disease: S/p TAVR: Echo 03/2022-EF > 70%, grade 1 diastolic dysfunction, normal gradient for bioprosthetic aortic valve Appeared euvolemic on admission Continue Plavix Given history of TAVR, bacteremia, echo ordered LV is normal in size. Moderate concentric LVH. LV wall motion is normal. EF 65 to 70%. Grade 1 diastolic dysfunction. There is a bioprosthetic aortic valve. Prosthetic valve gradients have points of normal and slightly increased from prior study of March 2020. There is mild thickening of the posterior mitral valve leaflet similar to prior study in March 2022. Tricuspid valve is not well visualized. Cardiology following, as above Hypothyroidism: Takes Synthroid; continue History of migraines: Takes Topiramate; continue Sacral wound: Appears to be healing well WOCN consulted Disposition: PCP: Dr. Ramirez Code Status: Full Code VTE Prophylaxis: Heparin SQ Admission and Anticipated Discharge Date Admission Date: August 18, 2022 Subjective Pt seen in follow up of sepsis, bacteremia - hx of bioprosth. valve, + parainfluenza, pna Currently laying in bed, in no acute distress She is awake alert oriented answering simple questions appropriately Patient's sister present at the bedside. Continues to have a cough. Also reports persistent headache. Says she has history of migraine headaches. ID was also consulted and recommended MRI angio of brain to rule out any septic emboli, patient refusing MRI. CT head obtained and negative for any acute pathology. Cardiology also consulted and following closely. Review of Systems Review of Systems: All systems reviewed & are unremarkable except as noted in Subjective Physical Exam Physical Exam: General: Morbidly obese female, laying in bed, in no acute distress, on supplemental oxygen HEENT: head normocephalic, moist mucus membranes CV: S1/S2, (-) M/G/R, (-) edema Resp: + crackles, + rhonchi, on suppl. O2 2L GI: Abdomen S/NT/ND, Ax4 bowel sounds, obese Musculoskeletal: moves extremities Neuro: alert and oriented, PERRL, EOMI. speech fluent, no facial asymmetry, moves extremities Skin: warm, dry Results & Data Results & Data Vital Signs (Past 12 Hours) Vital Signs Temp Pulse Resp BP BP Pulse Ox O2 Del Method 08/21/22 05:00 Nasal Cannula 08/21/22 04:43 36.9 C 86 16 114/51 L 91 Nasal Cannula 08/20/22 20:00 37.0 C 71 18 114/82 114/82 95 Nasal Cannula 08/20/22 20:00 Nasal Cannula O2 Flow Rate 08/21/22 05:00 2 08/21/22 04:43 2 08/20/22 20:00 2 08/20/22 20:00 2 Laboratory Results 08/21/22 08/21/22 Range/Units 04:33 04:33 WBC 12.07 H (4.8-10.8) K/ul RBC 3.62 L (4.20-5.40) M/uL Hgb 11.4 L (12.0-16.0) g/dl Hct 35.2 L (37.0-47.0) % MCV 97.2 (80.0-100.0) fL MCH 31.5 (25.0-34.0) pg MCHC 32.4 (32.0-36.0) g/dL RDW Std Deviation 59.0 H (36.4-46.3) fL RDW Coeff of Moni 16.5 H (11.5-14.5) % Plt Count 202 (130-400) K/uL MPV 11.3 (9.4-12.4) fL Sodium 136 (136-145) mmol/L Potassium 4.4 (3.5-5.1) mmol/L Chloride 108 H (98-107) mmol/L Carbon Dioxide 28 (21-32) mmol/L Anion Gap 0 L (3-11) BUN 15 (6-23) mg/dl Creatinine 1.06 D (0.6-1.2) mg/dl Est Cr Clr Drug Dosing 68.8 ml/min Est GFR ( Amer) 60.3 ml/min Est GFR (Non-Af Amer) 52.0 ml/min BUN/Creatinine Ratio 14.2 (10-20) Glucose 101 H (70-99(Fasting)) mg/dl Calcium 8.7 (8.6-10.3) mg/dl Phosphorus 2.3 L (2.5-4.9) mg/dl Magnesium 2.1 (1.7-2.4) mg/dl Medications Administered Current Inpatient Medications Acetaminophen (Acetaminophen 325 Mg Tab) 650 mg PO Q4H PRN PRN Reason: Pain or Fever Stop: 09/17/22 10:18 Last Admin: 08/21/22 04:46 Dose: 650 mg Al Hydrox/Mg Hydrox/Simethicone (Aluminum/Magnesium Susp 30 Ml Udc) 15 ml PO Q4H PRN PRN Reason: Dyspepsia Stop: 09/17/22 10:18 Albuterol (Albut/Ipratrop 3mg/0.5mg Neb 3 Ml Vial) 3 ml INH Q6H PRN; Protocol PRN Reason: Shortness Of Breath Or Wheezing Stop: 09/17/22 14:40 Amiodarone HCl (Amiodarone 200 Mg Tab) 200 mg PO QAM [facility] Stop: 09/18/22 08:59 Last Admin: 08/20/22 11:17 Dose: 200 mg Ascorbic Acid (Ascorbic Acid 500 Mg Tab) 250 mg PO DAILY@12 [facility] Stop: 09/17/22 11:59 Last Admin: 08/20/22 12:01 Dose: 250 mg Aspirin (Aspirin 81 Mg Chew) 81 mg PO DAILY [facility] Stop: 09/18/22 08:59 Last Admin: 08/20/22 09:51 Dose: 81 mg Clopidogrel Bisulfate (Clopidogrel Bisulfate 75 Mg Tab) 75 mg PO DAILY [facility] Stop: 09/18/22 08:59 Last Admin: 08/20/22 09:51 Dose: 75 mg Famotidine (Famotidine 10 Mg Tablet) 10 mg PO DAILY [facility] Stop: 09/18/22 08:59 Last Admin: 08/20/22 09:50 Dose: 10 mg Ferrous Sulfate (Ferrous Sulfate 325 Mg Tab) 325 mg PO DAILY@12 [facility] Stop: 09/17/22 11:59 Last Admin: 08/20/22 12:01 Dose: 325 mg Fluticasone Furoate (Fluticasone Furoate 100mcg 14 Puffs/Inhaler) 1 puffs INH QAM [facility] Stop: 09/17/22 11:44 Last Admin: 08/20/22 10:20 Dose: Not Given Furosemide (Furosemide 40 Mg Tab) 40 mg PO QAM [facility] Stop: 09/18/22 08:59 Heparin Sodium (Porcine) (Heparin Sod 5,000 Unit/0.5 Ml Vial) 5,000 units SQ Q8H [facility] Stop: 09/17/22 16:14 Last Admin: 08/21/22 00:21 Dose: 5,000 units Cefepime HCl 2,000 mg/ Syringe 20 mls @ 5 mls/min IV Q12H [facility]; Protocol Stop: 09/01/22 15:59 Last Admin: 08/21/22 04:28 Dose: 5 mls/min Vancomycin HCl 1,000 mg/ (Sodium Chloride) 270 mls @ 200 mls/hr IV Q12H [facility]; Protocol Stop: 09/03/22 21:59 Last Infusion: 08/20/22 21:32 Dose: Infused Ketoconazole (Ketoconazole 2% Cr 15 Gm Tube) 1 appln EXT BID PRN PRN Reason: Rash Stop: 08/28/22 11:14 Last Admin: 08/19/22 16:38 Dose: 1 appln Levothyroxine Sodium (Levothyroxine Sodium 25 Mcg Tablet) 25 mcg PO DAILYBB [facility] Stop: 09/18/22 06:29 Last Admin: 08/21/22 05:16 Dose: 25 mcg Magnesium Hydroxide (Magnesium Hydroxide Susp 30 Ml Udc) 30 ml PO Q12H PRN PRN Reason: Constipation Stop: 09/17/22 10:18 Magnesium Oxide (Magnesium Oxide 400 Mg Tab) 400 mg PO BID [facility] Stop: 09/17/22 20:59 Last Admin: 08/20/22 20:10 Dose: 400 mg Metoprolol Succinate (Metoprolol Succ 25mg Ext Rel Tab) 25 mg PO QAM [facility] Stop: 09/18/22 08:59 Last Admin: 08/20/22 08:35 Dose: Not Given Miscellaneous Information (Vancomycin Consult Active) 1 each N/A UD PRN PRN Reason: Consult Stop: 09/17/22 12:44 Ondansetron HCl (Ondansetron Inj 2 Mg/Ml 2 Ml Vial) 4 mg IV Q6H PRN PRN Reason: Nausea Stop: 09/17/22 10:18 Last Admin: 08/19/22 21:32 Dose: 4 mg Pantoprazole Sodium (Pantoprazole 40 Mg Tab) 40 mg PO BID [facility] Stop: 09/17/22 20:59 Last Admin: 08/20/22 20:10 Dose: 40 mg Polyethylene Glycol (Polyethylene (Miralax) 17 Gm Pack) 17 gm PO DAILY PRN PRN Reason: Constipation Stop: 09/17/22 10:18 Simvastatin (Simvastatin 10 Mg Tab) 10 mg PO HS [facility] Stop: 09/17/22 20:59 Last Admin: 08/20/22 20:11 Dose: 10 mg Topiramate (Topiramate 25 Mg Tab) 25 mg PO BID [facility] Stop: 09/17/22 20:59 Last Admin: 08/20/22 20:11 Dose: 25 mg Tramadol HCl (Tramadol Hcl 50 Mg Tablet) 50 mg PO HS PRN PRN Reason: headache or arthritis pain Stop: 09/17/22 11:14 Last Admin: 08/20/22 20:10 Dose: 50 mg
[2022-08-21] MEDS: FLUTICASONE FUROATE 100MCG 14 PUFFS/INHALER INH SCH (09:47)
--- NOTE | 2022-08-21 09:48 | Pharmacy Report ---
Pharmacy PK ABX Note - Date of Service August 21, 2022 - Assessment and Plan Assessment 08/21: Renal function continues to improve and SCr may not yet be at baseline. Current dose estimates AUC at 405 mg/L.hr, which is in the very low end of therapeutic rage. Given improving renal function and severity of infection, will increase dose. 08/20: Blood culture at outside facility with Staph species. In-house blood cultures remain negative. Sputum culture with MRSA. ID recommended JAY to rule out endocarditis given hx bioprosthetic aortic valve. Random vancomycin level this AM associated with subtherapeutic AUC. Will increase vancomycin. 08/19: Blood cultures at our facility currently negative at 24 hours, reports of + BC at outside facility ([facility])- will need follow-up for further results, sputum culture growing staph sp. Random level this morning 14.2- predi cting slightly above goal range at steady state, however, continue at this dose for now pending renal function changes/PK with early dosing still in low therapeutic range. WBC increased today. May need more aggressive dosing, will get random level again tomorrow to continue evaluating dose. ID has been consulted. 08/18 71 year old F receiving EMPIRIC cefepime/vancomycin for treatment of sepsis. Pe rtinent microbiologic data includes: Positive MRSA Nasal Swab, blood cultures pending. Plan Vancomycin * Increase maintenance dose to 1250 mg IV every 12 hours * Regimen is predicted to achieve target AUC/SATYA of 400-600 mg/L.hr * Random level ordered for 5/1 AM Pharmacy will continue to follow and will adjust dose/frequency as necessary. Thank you. Pharmacy has transitioned to AUC monitoring for vancomycin. AUC/SATYA is the preferred PK/PD target and is associated with decreased risk of nephrotoxicity compared to traditional trough targets.
[2022-08-21] MEDS: AMIODARONE 200 MG TAB PO SCH (09:49)
[2022-08-21] MEDS: TOPIRAMATE 25 MG TAB PO SCH ×2 (09:49→20:33)
[2022-08-21] MEDS: MAGNESIUM OXIDE 400 MG TAB PO SCH ×2 (09:49→20:34)
[2022-08-21] MEDS: ASPIRIN 81 MG CHEW PO SCH (09:49)
[2022-08-21] MEDS: METOPROLOL SUCC 25MG EXT REL TAB PO SCH (09:50)
[2022-08-21] MEDS: PANTOprazole 40 MG TAB PO SCH ×2 (09:50→20:34)
[2022-08-21] MEDS: FAMOTIDINE 10 MG TABLET PO SCH (09:51)
[2022-08-21] MEDS: CLOPIDOGREL BISULFATE 75 MG TAB PO SCH (09:51)
[2022-08-21] MEDS: VANCOMYCIN HCL 1,250 MG in SODIUM CHLORIDE 0.9% 250 ML IV SCH ×2 (10:06→21:58)
[2022-08-21] MEDS ORDERED: BUTALBITAL/ACETAMIN/CAFFEINE TAB PO STA (12:22)
[2022-08-21] MEDS: FERROUS SULFATE 325 MG TAB PO SCH (12:52)
[2022-08-21] MEDS: ASCORBIC ACID 500 MG TAB PO SCH (12:53)
--- NOTE | 2022-08-21 13:47 | Cardiology Progress Note ---
Date of Service August 21, 2022 Assessment & Plan (1) Parainfluenza virus pneumonia: Plan: - Patient with a chief complaint of headache and cough, without jeana fever. Her chief complaint certainly correlates with the findings of parainfluenza virus on the respiratory panel and clinical findings consistent with pneumonia. Oxygen saturation 93-96% on 2 L nasal cannula. -MRSA also noted in her sputum -Continue supportive care (2) Staphylococcus aureus bacteremia with sepsis: Plan: - The patient had initially presented to [facility] where she was admitted for 24 hours or less. Reportedly, a telephone report was provided by [facility] stating that 1 of 4 blood cultures was positive for Staph aureus. Report not available for review at present. Further culture results and identification not available, but efforts are underway to get those records. -Agree with empiric antibiotics for now. (3) Open wound of buttock: Plan: - Patient with history of an open wound to the buttock. This has healed since her presentation 2 months ago. This history of course would increase her risk for systemic infection (4) S/P TAVR (transcatheter aortic valve replacement): Plan: - History of transcatheter aortic valve replacement (performed at [facility] 05/09/2019). Transthoracic echocardiogram technically limited due to patient's body habitus. -No obstructive CAD noted on pre-TAVR coronary angiography 03/20/2019 ([facility]) -Performing JAY during this hospital stay for further assessment of bacteremia and potential risk for endocarditis is certainly a consideration, however would recommend patient has optimized more from a respiratory standpoint prior to sedation, and will work on this. (5) Atrial fibrillation: Plan: -Sinus rhythm noted on telemetry - Patient has history of paroxysmal atrial fibrillation. She is not anticoagulated due to apparent history of gastrointestinal bleeding. -Continue amiodarone 200 mg daily. This medication typically does not cause low blood pressure -Metoprolol succinate 25 mg daily. I have changed the hold parameters to hold for HR <60 bmp, or SBP < 95 mm Hg. -Per review of her record, she been placed on clopidogrel after her transcatheter aortic valve implantation with plans to complete a 3-month course but she has remained on it for over 3 years. -I do not think today's a day to change her chronic medication and will continue clopidogrel for now, but the risks and benefits of this medication need to be reassessed as time goes on. Admission and Anticipated Discharge Date Admission Date: August 18, 2022 Subjective Patient seen in cardiology follow-up. Sister at the bedside. Patient more somnolent today. Had a CT of the head performed yesterday due to headache complaints, with findings of sinusitis but no other intracranial process. Physical Exam Constitutional: + ill appearing and + morbidly obese; no acute distress Respiratory: Auscultation: + diminished lung sounds (Coarse breath sounds bilaterally at the bases) Cardiovascular: Rate/Rhythm: regular rate and regular rhythm (Auscultation limited by body habitus, heart sounds are faint) Extremities: no edema Gastrointestinal (Abdomen): normal bowel sounds, soft, nontender, no hepatosplenomegaly Neurologic: PERRL, EOMI, accommodation nl, no face palsy, no dysarthria (Conversant, follows commands) Results & Data Vital Signs (Past 12 Hours) Vital Signs Temp Pulse Pulse Resp BP BP Pulse Ox 08/21/22 11:33 36.8 C 78 20 116/55 L 93 08/21/22 07:00 74 08/21/22 07:54 36.8 C 74 20 98/59 L 98 08/21/22 05:00 08/21/22 04:43 36.9 C 86 16 114/51 L 91 O2 Del Method O2 Flow Rate 08/21/22 11:33 Nasal Cannula 2 08/21/22 07:00 08/21/22 07:54 Nasal Cannula 08/21/22 05:00 Nasal Cannula 2 08/21/22 04:43 Nasal Cannula 2 Laboratory Results CBC 08/21/22 Range/Units 04:33 WBC 12.07 H (4.8-10.8) K/ul RBC 3.62 L (4.20-5.40) M/uL Hgb 11.4 L (12.0-16.0) g/dl Hct 35.2 L (37.0-47.0) % Plt Count 202 (130-400) K/uL Comprehensive Metabolic Panel 08/21/22 Range/Units 04:33 Sodium 136 (136-145) mmol/L Potassium 4.4 (3.5-5.1) mmol/L Chloride 108 H (98-107) mmol/L Carbon Dioxide 28 (21-32) mmol/L BUN 15 (6-23) mg/dl Creatinine 1.06 D (0.6-1.2) mg/dl Glucose 101 H (70-99(Fasting)) mg/dl Calcium 8.7 (8.6-10.3) mg/dl Intake and Output 08/20/22 08/21/22 08/21/22 22:59 06:59 14:59 Intake Total 390 / 1020 275 / 275 Output Total 1 / 2 Balance 389 / 1018 275 / 275 Intake: IV 270 / 540 275 / 275 Vancomycin HCl 1,250 mg In 270 / 270 275 / 275 Sodium Chloride 0.9% 250 ml @ 200 mls/hr IV Q12H [facility] Rx#: [id number] Oral 120 / 480 Output: # Bowel Movements 1 / 2 Other: # Unmeasured Voids 1
[2022-08-21] MEDS: guaiFENesin 600 MG TABCR PO SCH ×2 (14:09→20:34)
[2022-08-21] MEDS ORDERED: SODIUM CHLORIDE 0.65% NA SOLN 45 ML (OCEAN) PRN (17:44)
[2022-08-21] MEDS: SIMVASTATIN 10 MG TAB PO SCH (20:33)
[2022-08-21] MEDS: traMADol HCL 50 MG TABLET PO PRN (21:32)
[2022-08-22] MEDS: HEPARIN SOD 5,000 UNIT/0.5 ML VIAL SQ SCH ×3 (00:05→17:19)
[2022-08-22] MEDS: CEFEPIME 2,000 MG in SYRINGE 0 ML IV SCH (03:45)
[2022-08-22] MEDS: LEVOTHYROXINE SODIUM 25 MCG TABLET PO SCH (05:45)
[2022-08-22 05:57] LABS: Hematocrit (blood only) 34.7 % (37.0-47.0); Hemoglobin 11.1 g/dl (12.0-16.0); Mean Corpuscular Hemoglobin 31.3 pg (25.0-34.0); Mean Corpuscular Volume 97.7 fL (80.0-100.0); Mean Platelet Volume 10.9 fL (9.4-12.4); Platelet Count 216 K/uL (130-400); RDW Coefficient of Variation 16.5 % (11.5-14.5); Red Blood Count 3.55 M/uL (4.20-5.40); White Blood Count 10.41 K/ul (4.8-10.8)
[2022-08-22 06:14] LABS: BUN Creatinine Ratio 13.3 (10-20); Calcium 8.8 mg/dl (8.6-10.3); Creatinine Clr Calc Pharmacy 74.4 ml/min; Est GFR (African American) 66.3 ml/min; Est GFR (Non-African American) 57.2 ml/min; Magnesium 2.1 mg/dl (1.7-2.4); Phosphorus 2.4 mg/dl (2.5-4.9); Potassium 4.3 mmol/L (3.5-5.1)
[2022-08-22] MEDS: METOPROLOL SUCC 25MG EXT REL TAB PO SCH (07:28)
[2022-08-22] MEDS: PANTOprazole 40 MG TAB PO SCH ×2 (07:28→21:01)
[2022-08-22] MEDS: TOPIRAMATE 25 MG TAB PO SCH ×2 (07:29→21:00)
[2022-08-22] MEDS: AMIODARONE 200 MG TAB PO SCH (07:29)
[2022-08-22] MEDS: MAGNESIUM OXIDE 400 MG TAB PO SCH ×2 (07:30→21:19)
[2022-08-22] MEDS: CLOPIDOGREL BISULFATE 75 MG TAB PO SCH (07:31)
[2022-08-22] MEDS: FAMOTIDINE 10 MG TABLET PO SCH (07:31)
[2022-08-22] MEDS: ASPIRIN 81 MG CHEW PO SCH (07:31)
[2022-08-22] MEDS: guaiFENesin 600 MG TABCR PO SCH ×2 (07:32→21:01)
[2022-08-22] MEDS: FLUTICASONE FUROATE 100MCG 14 PUFFS/INHALER INH SCH ×2 (07:32→07:36)
[2022-08-22 07:41] LABS: HCO3 ABG 29 mmol/L (19-24); Oxygen Saturation ABG 98.6 % (90-95); PCO2 ABG 49 mmHg (35-46); PO2 ABG 86 mmHg (80-95); pH ABG 7.38 (7.35-7.45)
[2022-08-22 07:46] LABS: Allen Test Pos (Pos)
--- NOTE | 2022-08-22 08:36 | Hospitalist Progress Note ---
Date of Service August 22, 2022 Assessment & Plan (1) COPD (chronic obstructive pulmonary disease): (2) CHF (congestive heart failure): (3) Dyslipidemia: (4) Hypoxia: (5) Atrial fibrillation with rapid ventricular response: (6) Paroxysmal atrial fibrillation: (7) Sepsis due to pneumonia: Plan: (1) COPD (chronic obstructive pulmonary disease): (2) CHF (congestive heart failure): (3) Dyslipidemia: (4) Hypoxia: (5) Atrial fibrillation with rapid ventricular response: (6) Paroxysmal atrial fibrillation: (7) Sepsis due to pneumonia: Plan Ms. Celia Marshall is a 71-year-old female that was a direct transfer from [facility]. Patient was transferred to [facility] from local nursing facility after being found febrile with a temperature of 103 F. Patient appeared septic with unclear source. Patient was hypotensive at [facility] and started on Levophed. Chest x-ray there showed pulmonary congestion. Urinalysis at that time was negative. She was started on IV Vancomycin and cefepime there. Patient was recently admitted to [facility] in May 26 - 06/14 with ambulatory dysfunction. Patient has history of extensive sacral ulcers (now healed) and was transferred to a nursing facility upon discharge due to inability of caring for herself at home. Most recent echo 04/14; EF 70%, G1 DD X, bioprosthetic aortic valve. Septic shock secondary to pna, bacteremia MRSA pna , parainfluenza infection Bacteremia w/ MRSA, hx of bioprosthetic valve - poss. endocarditis WBC 13.64, down from what it was at [facility] febrile 103F; afebrile at [facility] CXR mild cardiomegaly Chest CT suggestive of RLL PNA at [facility] Hypotensive on arrival and was on Levophed; hypotension has resolved and pressors stopped. [facility] blood cultures positive - 1 cultx positive for MRSA Vanco and Cefepime started and continued. Cefepime now stopped. Blood cultures obtained here (08/18) and so far negative Sputum cultx (08/18) positive for MRSA Biofire + for parainfluenza Lactate normal 1.[address] chest scan is abnormal and per ICU repeat 6-8 weeks time to determine resolution Pt not clinically improving - obtain CXR, ABG, pulmonary medicine consulted - discussed case w/ pulm Given history of TAVR, bacteremia, echo ordered LV is normal in size. Moderate concentric LVH. LV wall motion is normal. EF 65 to 70%. Grade 1 diastolic dysfunction. There is a bioprosthetic aortic valve. Prosthetic valve gradients have points of normal and slightly increased from prior study of March 2020. There is mild thickening of the posterior mitral valve leaflet similar to prior study in March 2022. Tricuspid valve is not well visualized. ID and cardiology consulted -appreciate their input ID - Continue vancomycin iv to maintain trough 15-20, closely monitoring renal function - Need JAY to r/o prosthetic valve endocarditis - Consider MRI of brain to r/o embolic event - pt is refusing MRI - F/u repeat blood cultures (08/18). - Supportive care for parainfluenza infection Cardiology consulted - managing amiodarone and metoprolol given low BP -Performing JAY during this hospital stay for further assessment of bacteremia and potential risk for endocarditis is certainly a consideration, however would recommend patient has optimized more from a respiratory standpoint prior to sedation, and will work on this. -pt now seems fluid overloaded, as lasix held d/t hypotension, will give small dose IV lasix and will closley monitor - discussed w/ cardiology over the phone CKD Stage III: Creatinine 1 today Paroxysmal atrial fibrillation: Takes Metoprolol and Amiodarone; continue as per cardiology Not anticoagulated due to history of GI bleeding Chronic diastolic CHF due to valvular disease: S/p TAVR: Echo 03/2022-EF > 70%, grade 1 diastolic dysfunction, normal gradient for bioprosthetic aortic valve Appeared euvolemic on admission Continue Plavix Given history of TAVR, bacteremia, echo ordered LV is normal in size. Moderate concentric LVH. LV wall motion is normal. EF 65 to 70%. Grade 1 diastolic dysfunction. There is a bioprosthetic aortic valve. Prosthetic valve gradients have points of normal and slightly increased from prior study of March 2020. There is mild thickening of the posterior mitral valve leaflet similar to prior study in March 2022. Tricuspid valve is not well visualized. Cardiology following, as above Hypothyroidism: Takes Synthroid; continue History of migraines: Takes Topiramate; continue Sacral wound: Appears to be healing well WOCN consulted Disposition: PCP: Dr. Ramirez Code Status: Full Code VTE Prophylaxis: Heparin SQ Admission and Anticipated Discharge Date Admission Date: August 18, 2022 Subjective Pt seen in follow up of sepsis, bacteremia - hx of bioprosth. valve, + parainfluenza, pna Currently laying in bed, in no acute distress, drowsy - answering simple questions appropriately Patient's sister present at the bedside. Continues to have a cough. Headache resolved. Reports history of migraine headaches. ID was also consulted and recommended MRI angio of brain to rule out any septic emboli, patient refusing MRI. CT head obtained and negative for any acute pathology. Cardiology also consulted and following closely. CXR obtained , ABG , Pulmonary medicine also consulted. Discussed w/ cardiology and pt's niece updated over the phone, and sister updated at the bedside. Review of Systems Review of Systems: All systems reviewed & are unremarkable except as noted in Subjective Physical Exam Physical Exam: General: Morbidly obese female, laying in bed, in no acute distress, on supplemental oxygen HEENT: head normocephalic, moist mucus membranes CV: S1/S2, (-) M/G/R, (-) edema Resp: + crackles, + rhonchi, on suppl. O2 2L GI: Abdomen S/NT/ND, Ax4 bowel sounds, obese Musculoskeletal: moves extremities Neuro: alert and oriented, able to answer simple questions appropriately. PERRL, EOMI. speech fluent, no facial asymmetry, moves extremities Skin: warm, dry Results & Data Results & Data Vital Signs (Past 12 Hours) Vital Signs Temp Pulse Pulse Resp BP Pulse Ox O2 Del Method 08/22/22 07:09 36.6 C 75 19 132/55 L 91 Nasal Cannula 08/22/22 02:32 36.8 C 79 18 118/81 95 Nasal Cannula 08/22/22 00:00 74 08/21/22 22:50 36.7 C 77 18 131/55 L 97 Nasal Cannula 08/21/22 20:46 Nasal Cannula O2 Flow Rate 08/22/22 07:09 3 08/22/22 02:32 08/22/22 00:00 08/21/22 22:50 08/21/22 20:46 3
--- NOTE | 2022-08-22 08:37 | Electrocardiogram Report ---
Test Reason : Blood Pressure : / mmHG Vent. Rate : 070 BPM Atrial Rate : 070 BPM P-R Int : 184 ms QRS Dur : 096 ms QT Int : 390 ms P-R-T Axes : 043 023 059 degrees QTc Int : 421 ms Normal sinus rhythm Normal ECG When compared with ECG of 12-JUN-2022 14:17, No significant change was found Confirmed by Daryn Gonzales ([id number]) on 08/22/2022 8:36:52 AM Referred By: REFERRED SELF Confirmed By:Daryn Gonzales
--- NOTE | 2022-08-22 08:49 | Electrocardiogram Report ---
Test Reason : Blood Pressure : / mmHG Vent. Rate : 074 BPM Atrial Rate : 074 BPM P-R Int : 164 ms QRS Dur : 082 ms QT Int : 376 ms P-R-T Axes : 045 015 050 degrees QTc Int : 417 ms Normal sinus rhythm Normal ECG When compared with ECG of 19-AUG-2022 18:14, (unconfirmed) No significant change was found Confirmed by Daryn Gonzales ([id number]) on 08/22/2022 8:49:04 AM Referred By: REFERRED SELF Confirmed By:Daryn Gonzales
--- NOTE | 2022-08-22 10:28 | Cardiology Progress Note ---
Date of Service August 22, 2022 Assessment & Plan (1) Parainfluenza virus pneumonia: (2) Staphylococcus aureus bacteremia with sepsis: (3) Open wound of buttock: Plan: - Patient with history of an open wound to the buttock. This has healed since her presentation 2 months ago. This history of course would increase her risk for systemic infection (4) S/P TAVR (transcatheter aortic valve replacement): (5) Atrial fibrillation: Plan As previously noted, patient is on chronic amiodarone therapy due to her history of paroxysmal atrial fibrillation. Metoprolol administered this morning as her systolic blood pressure was over 95 mmHg. Historically she has not been anticoagulated due to history of gastrointestinal bleeding. - History of transcatheter aortic valve replacement (performed at [facility] 05/09/2019). Transthoracic echocardiogram technically limited due to patient's body habitus. -No obstructive CAD noted on pre-TAVR coronary angiography 03/20/2019 ([facility]) -I question if the patient is having further hypoxia due to volume overload having received IV fluid resuscitation and IV antibiotics for infection and resuscitative needs. A chest x-ray has been requested. Patient apparently declined the chest x-ray and the x-ray technicians plan to give her a rest and perform the x-ray shortly. -Patient with MRSA in her sputum, parainfluenza virus, and certainly is behaving as if she has pneumonia. From a bacteremia standpoint, await finalized cultures from [facility]. Cultures negative at this institution thus far and she is afebrile. -As noted her transthoracic echocardiogram is suboptimal due to her body habitus. Information obtained from a transesophageal echocardiogram would be helpful with regards to determining the length of duration of antibiotics, but her respiratory status prohibits JAY at present. -We will follow-up on her x-ray and discuss resuming diuretics, perhaps furosemide 20 mg IV to start given recent low BP. -Continue subcutaneous heparin for DVT prophylaxis. -Per family request I spoke with Pari Black [facility] by phone [phone]. Admission and Anticipated Discharge Date Admission Date: August 18, 2022 Subjective Patient seen in cardiology follow-up. Her sister remains at the bedside. Patient doing worse today from a mental status standpoint and her oxygen requirement has increased, most recent pulse oximetry 91% on 3 L nasal cannula as compared to 2 L/min yesterday. She had an arterial blood gas performed today without significant hypoxia, and her pH was relatively stable at 7.38. Telemetry reveals sinus rhythm in the 70s. She received her metoprolol dose this morning. Her prior to hospital treatment with furosemide remains on hold. Physical Exam Constitutional: + ill appearing and + morbidly obese; no acute distress Respiratory: Auscultation: + diminished lung sounds (Coarse breath sounds bilaterally at the bases) Cardiovascular: Rate/Rhythm: regular rate and regular rhythm (Auscultation limited by body habitus, heart sounds are faint) Extremities: no edema Gastrointestinal (Abdomen): normal bowel sounds, soft, nontender, no hepatosplenomegaly Neurologic: PERRL, EOMI, accommodation nl, no face palsy, no dysarthria (Conversant, follows commands) Results & Data Vital Signs (Past 12 Hours) Vital Signs Temp Pulse Pulse Resp BP Pulse Ox O2 Del Method 08/22/22 08:57 77 08/22/22 07:09 36.6 C 75 19 132/55 L 91 Nasal Cannula 08/22/22 02:32 36.8 C 79 18 118/81 95 Nasal Cannula 08/22/22 00:00 74 08/21/22 22:50 36.7 C 77 18 131/55 L 97 Nasal Cannula O2 Flow Rate 08/22/22 08:57 08/22/22 07:09 3 08/22/22 02:32 08/22/22 00:00 08/21/22 22:50 Laboratory Results CBC 08/22/22 Range/Units 05:36 WBC 10.41 (4.8-10.8) K/ul RBC 3.55 L (4.20-5.40) M/uL Hgb 11.1 L (12.0-16.0) g/dl Hct 34.7 L (37.0-47.0) % Plt Count 216 (130-400) K/uL Comprehensive Metabolic Panel 08/22/22 Range/Units 05:36 Sodium 139 (136-145) mmol/L Potassium 4.3 (3.5-5.1) mmol/L Chloride 106 (98-107) mmol/L Carbon Dioxide 27 (21-32) mmol/L BUN 13 (6-23) mg/dl Creatinine 0.98 (0.6-1.2) mg/dl Glucose 107 H (70-99(Fasting)) mg/dl Calcium 8.8 (8.6-10.3) mg/dl Intake and Output 08/21/22 08/22/22 08/22/22 22:59 06:59 14:59 Intake Total 275 / 1030 Output Total 500 / 1100 300 / 1100 Balance -500 / -70 - / Intake: IV 275 / 550 Vancomycin HCl 1,250 mg In 275 / 550 Sodium Chloride 0.9% 250 ml @ 200 mls/hr IV Q12H [facility] Rx#: [id number] Output: Urine Amount (Catheter) 500 / 1100 300 / 1100 External 500 / 1100 300 / 1100 Other: Other Intake Source sips Weight 138.1 kg
--- NOTE | 2022-08-22 11:06 | Pharmacy Report ---
Pharmacy PK ABX Note - Date of Service August 22, 2022 - Assessment and Plan Assessment 08/22: Renal fxn improved and stable. Contacted [facility] to obtain BLCX update: 1 of 2 bottles growing MRSA at this outside facility. BLCXs drawn at [facility] remain no growth to date. Level drawn this AM 18.1, estimated AUC/SATYA target should be achieved reliably with current dose with ~12% risk of nephrotoxicity 08/21: Renal function continues to improve and SCr may not yet be at baseline. Current dose estimates AUC at 405 mg/L.hr, which is in the very low end of therapeutic rage. Given improving renal function and severity of infection, will increase dose. 08/20: Blood culture at outside facility with Staph species. In-house blood cultures remain negative. Sputum culture with MRSA. ID recommended JAY to rule out endocarditis given hx bioprosthetic aortic valve. Random vancomycin level this AM associated with subtherapeutic AUC. Will increase vancomycin. 08/19: Blood cultures at our facility currently negative at 24 hours, reports of + BC at outside facility ([facility])- will need follow-up for further results, sputum culture growing staph sp. Random level this morning 14.2- predicting slightly above goal range at steady state, however, continue at this dose for now pending renal function changes/PK with early dosing still in low therapeutic range. WBC increased today. May need more aggressive dosing, will get random level again tomorrow to continue evaluating dose. ID has been consulted. 08/18 71 year old F receiving EMPIRIC cefepime/vancomycin for treatment of sepsis. Pertinent microbiologic data includes: Positive MRSA Nasal Swab, blood cultures pending. Plan Vancomycin * Continue 1250 mg IV every 12 hours * Regimen is predicted to achieve target AUC/SATYA of 400-600 mg/L.hr * Will recheck level in 48 hrs if therapy to continue Pharmacy will continue to follow and will adjust dose/frequency as necessary. Thank you. Pharmacy has transitioned to AUC monitoring for vancomycin. AUC/SATYA is the preferred PK/PD target and is associated with decreased risk of nephrotoxicity compared to traditional trough targets.
[2022-08-22] MEDS ORDERED: FUROSEMIDE INJ 20 MG/2 ML VIAL IV ONE ×2 (11:12→16:02)
--- NOTE | 2022-08-22 12:54 | Electrocardiogram Report ---
Test Reason : Blood Pressure : / mmHG Vent. Rate : 082 BPM Atrial Rate : 082 BPM P-R Int : 180 ms QRS Dur : 082 ms QT Int : 370 ms P-R-T Axes : 005 011 021 degrees QTc Int : 432 ms Poor data quality, interpretation may be adversely affected Normal sinus rhythm Normal ECG When compared with ECG of 20-AUG-2022 06:26, (unconfirmed) No significant change was found Confirmed by Daryn Gonzales ([id number]) on 08/22/2022 12:53:28 PM Referred By: REFERRED SELF Confirmed By:Daryn Gonzales
[2022-08-22] MEDS: VANCOMYCIN HCL 1,250 MG in SODIUM CHLORIDE 0.9% 250 ML IV SCH ×2 (13:10→22:14)
[2022-08-22] MEDS: FERROUS SULFATE 325 MG TAB PO SCH (13:14)
[2022-08-22] MEDS: ASCORBIC ACID 500 MG TAB PO SCH (13:14)
--- NOTE | 2022-08-22 13:36 | Pulmonary Consultation ---
Date of Consultation August 22, 2022 Assessment & Plan (1) Sepsis due to pneumonia: (2) Hypoxia: (3) Paroxysmal atrial fibrillation: (4) Acute respiratory failure with hypercapnia: (5) Morbid obesity: Plan CT chest 08/18/2022 personally reviewed: Multinodular opacities appreciated bilaterally especially in the right upper right lower and left lower lobe Cardiomegaly Mediastinal lymphadenopathy especially station 4R 2D echo 08/11/2022: EF 65-70%, grade 1 diastolic dysfunction, moderate concentric LVH ABG 08/22/2022: 7.38/49/86 on 3 L -- Multilobar pneumonia with bacteremia MRSA positive Sputum culture positive for MRSA Blood culture 08/18/2022 negative to date Respiratory bio fire negative for everything except for parainfluenza COVID-[address] chest findings from outside the facility has limited images. Based on the limited images it seems that the patient most likely had septic emboli. -- Metabolic encephalopathy Likely multifactorial Would recommend avoiding any suppressive medications including tramadol Sepsis itself is a possibility as well as mild hypercapnia appreciated on the ABG today --COPD Greater than [id number] smoking history Quit at the age of 69 Not in any exacerbation right now -- Morbid obesity with probable BASILIA Recent ABG does show hypercapnia with low normal pH BiPAP nightly and as needed shortness of breath will be helpful Plan: Repeat chest x-ray today Recommend continuing with vancomycin Patient is +3.6 L since coming to the hospital Would recommend to keep the patient negative balance going forward Continue with incentive spirometry BiPAP nightly and as needed shortness of breath. Recommend avoiding over oxygenating the patient, keep O2 saturation between 88- 92% Case was discussed with Dr. Malcolm RN as well as sister at bedside Please note the above document was generated using voice recognition software. It may contain grammatical, syntax or spelling errors.Any formal questions or concerns about the content, text or information contained within the body of this dictation should be directly addressed to the provider for clarification. History of Present Illness Attending Physician: Vitaly Fowler MD History of Present Illness 71-year-old female was admitted to hospital because of fever and hypotension Past medical history: CHF, CKD, A-fib, osteoarthritis, dyslipidemia, hypothyroidism Patient was initially admitted to the ICU for septic shock she was subsequently downgraded Pulmonary consulted because she was still clinically not doing well Patient's sister was in the room at the time of examination. Patient was somnolent. Was not a good historian. History was obtained from patient's sister. At the time of examination patient saturation was 92-93% on 3 L nasal cannula. She was not in any respiratory distress She was answering few questions. Denied any headache, no nausea, no vomiting, no chest pain No abdominal pain No headache, no blurry vision Social history: Greater than [id number] smoking history, quit at the age of 69 Allergies Allergy/AdvReac Type Severity Reaction Status Date / Time dog dander Allergy Intermediate Sneezing Verified 03/20/19 08:57 egg Allergy SPECIFIC-DUCK Verified 03/20/19 08:57 EGG CAUSED FACIAL SWELLING pollen extracts Allergy HAYFEVER Verified 03/20/19 08:57 methylprednisolone AdvReac Unknown Verified 03/20/19 08:57 [From Depo-Medrol] Home Medications Medication Instructions Recorded Confirmed Type albuterol sulfate 90 mcg/actuation 2 puff inhalation QID PRN 01/02/18 08/18/22 History aerosol inhaler (Ventolin HFA) Shortness Of Breath Or Wheezing pantoprazole 40 mg tablet,delayed 40 mg PO BID 01/02/18 08/18/22 History release ferrous sulfate 325 mg (65 mg 325 mg PO DAILY@12 #30 tabs 07/21/18 08/18/22 Rx iron) tablet magnesium oxide 400 mg (241.3 mg 400 mg PO BID #60 tabs 07/21/18 08/18/22 Rx magnesium) tablet metoprolol succinate 25 mg capsule 25 mg PO QAM 09/04/18 08/18/22 History sprinkle, ext. release 24 hr acetaminophen 500 mg tablet 650 mg PO Q4 PRN Pain 10/17/18 08/18/22 History (Tylenol Extra Strength) amiodarone 200 mg tablet 200 mg PO QAM 10/17/18 08/18/22 History ascorbic acid (vitamin C) 500 mg 250 mg PO DAILY@12 10/17/18 08/18/22 History tablet aspirin 81 mg chewable tablet 81 mg PO DAILY 03/19/19 08/18/22 History fluticasone propionate 220 1 puff inhalation BID 03/19/19 08/18/22 History mcg/actuation HFA aerosol inhaler (Flovent HFA) clopidogrel 75 mg tablet 75 mg PO DAILY 04/03/22 08/18/22 History ipratropium 0.5 mg-albuterol 3 mg 3 ml inhalation Q6H PRN Shortness 04/03/22 08/18/22 History (2.5 mg base)/3 mL nebulization Of Breath Or Wheezing soln levothyroxine 25 mcg tablet 25 mcg PO DAILY 04/03/22 08/18/22 History simvastatin 10 mg tablet 10 mg PO HS 04/03/22 08/18/22 History topiramate 25 mg tablet 25 mg PO BID 04/03/22 08/18/22 History furosemide 20 mg tablet 40 mg PO QAM #30 tabs 04/06/22 08/18/22 Rx famotidine 10 mg tablet 10 mg PO DAILY 04/13/22 08/18/22 History ketoconazole 2 % topical cream 1 applic topical BID PRN Rash 04/13/22 08/18/22 History tramadol 50 mg tablet 50 mg PO HS PRN headache or 06/15/22 08/18/22 Rx arthritis pain 5 days #5 tabs Patient History Medical History Aortic stenosis Atrial fibrillation Cardiac murmur CHF (congestive heart failure) CKD (chronic kidney disease), stage III COPD (chronic obstructive pulmonary disease) Dyslipidemia GERD (gastroesophageal reflux disease) History of migraine Kidney stones Migraine Obesity Osteoarthritis Paroxysmal atrial fibrillation Sepsis due to pneumonia SOB (shortness of breath) on exertion Stomach ulcer HX Tobacco abuse quit 3 months ago Surgical History History of colonoscopy History of cystoscopy History of esophagogastroduodenoscopy (EGD) Hx of cholecystectomy Family History Father Family history of diabetes mellitus Social History Smoking Status: Former smoker Tobacco Type: Cigarettes Cigarettes Per Day: QUIT 2 MONTHS AGO; Second Hand Exposure: No; Do You Dip or Chew Tobacco: No; Hx Alcohol Use: No Hx Substance Use: No Preferred Language: Latvian Communication Ability: Effective E Business Consultant Required: No Beliefs That Will Affect Care: None Current Living Situation: Jail Current Living Situation Comment: lives in a trailer with sister Feels Safe at Home: No Is there a partner from a previous relationship who is making you feel unsafe now?: No Assistive Devices: Walker and Wheelchair Review of Systems Review of Systems: All systems reviewed & are unremarkable except as noted in HPI & below Physical Exam Physical Exam: Constitutional: No acute distress HEENT: EOMI, PERRLA Respiratory system: Decreased air entry bilaterally, no wheeze, no rhonchi, positive crackles bilaterally more on the right side CVS: S1-S2 positive, no murmurs or gallops Abdomen: Soft, nontender, nondistended, positive bowel sounds x4, obese Extremities: +2 pulses bilaterally radialis/ dorsalis pedis, no cyanosis, no edema Neuro: Somnolent, oriented to self Psych: Flat mood and affect G/U: Positive [place] Skin: no rashes, warm and dry Lymphatic: no cervical or axillary lymphadenopathy Results & Data Results & Data Vital Signs (Past 12 Hours) Vital Signs Temp Pulse Pulse Resp BP Pulse Ox O2 Del Method 08/22/22 11:46 36.6 C 71 18 133/64 94 Nasal Cannula 08/22/22 08:57 77 08/22/22 07:09 36.6 C 75 19 132/55 L 91 Nasal Cannula 08/22/22 02:32 36.8 C 79 18 118/81 95 Nasal Cannula O2 Flow Rate 08/22/22 11:46 3 08/22/22 08:57 08/22/22 07:09 3 08/22/22 02:32 Laboratory Results 08/22/22 05:36 08/22/22 05:36 PG Care Time/CCT Total # of Minutes Spent Total Time Spent with Patient: Total time spent is greater than 50% in coordination of care (as documented) at patient's floor/unit and/or counseling patient: Coding Level of Care Code 43183 INT INP/OBS CARE 375MIN Diagnoses Sepsis due to pneumonia J18.9; A41.9 Hypoxia R09.02 Paroxysmal atrial fibrillation I48.0 Acute respiratory failure with hypercapnia J96.02 Morbid obesity E66.01
--- NOTE | 2022-08-22 14:50 | XRay Report ---
XR chest 1V portable HISTORY: Sepsis. follow up COMPARISON: Chest 08/18/2022. FINDINGS: No pneumothorax. There are low lung volumes. The heart remains mildly enlarged. There is pr ogressive perihilar interstitial/vascular thickening with hazy airspace opacities. This may represent progressive pulmonary edema or an atypical pneumonia. There are trace bilateral pleural effusions. A cardiac valve prosthesis is again noted. IMPRESSION: Interval progression of the perihilar interstitial/vascular thickening and hazy airspace opacities. T his favors progressive pulmonary edema. An atypical pneumonia could also have a similar appearance. ACT 112: Negative or not required by law. Electronically signed by: Huber Damian M.D. 08/22/2022 2:48 PM
[2022-08-22] MEDS: SIMVASTATIN 10 MG TAB PO SCH (21:01)
[2022-08-23] MEDS: HEPARIN SOD 5,000 UNIT/0.5 ML VIAL SQ SCH ×3 (00:28→16:34)
[2022-08-23] MEDS: LEVOTHYROXINE SODIUM 25 MCG TABLET PO SCH (06:04)
[2022-08-23 06:29] LABS: Basophils # (auto) 0.04 K/uL (0-0.2); Basophils % (auto) 0.3 %; Hematocrit (blood only) 37.2 % (37.0-47.0); Immature Granulocytes # (auto) 0.12 K/uL (0.01-0.20); Immature Granulocytes % (auto) 0.9 %; Lymphocytes # (auto) 1.47 K/uL (1.2-3.4); Lymphocytes % (auto) 10.9 %; Mean Corpuscular Hemoglobin 31.1 pg (25.0-34.0); Mean Corpuscular Hgb Conc 32.3 g/dL (32.0-36.0); Mean Corpuscular Volume 96.4 fL (80.0-100.0); Mean Platelet Volume 11.1 fL (9.4-12.4); Monocytes # (auto) 1.86 K/uL (0.11-0.59); Monocytes % (auto) 13.8 %; Neutrophils # (auto) 9.57 K/uL (1.40-6.50); Neutrophils % (auto) 71.1 %; Platelet Count 231 K/uL (130-400); RDW Standard Deviation 57.6 fL (36.4-46.3); Red Blood Count 3.86 M/uL (4.20-5.40); White Blood Count 13.46 K/ul (4.8-10.8)
[2022-08-23 06:46] LABS: Albumin Globulin Ratio 0.7 (0.9-2); BUN Creatinine Ratio 12.2 (10-20); Bilirubin,Total 0.4 mg/dl (0.2-1.0); Calcium 8.9 mg/dl (8.6-10.3); Creatinine Clr Calc Pharmacy 74.4 ml/min; Est GFR (African American) 66.3 ml/min; Est GFR (Non-African American) 57.2 ml/min; Globulin 4.2 gm/dl (2.5-4.0); Magnesium 2.2 mg/dl (1.7-2.4); Phosphorus 2.9 mg/dl (2.5-4.9); Potassium 4.2 mmol/L (3.5-5.1); Total Protein 7.2 gm/dl (6.0-8.3)
--- NOTE | 2022-08-23 08:24 | Pulmonology Progress Note ---
Date of Service August 23, 2022 Assessment & Plan (1) Sepsis due to pneumonia: (2) Hypoxia: (3) Paroxysmal atrial fibrillation: (4) Acute respiratory failure with hypercapnia: (5) Morbid obesity: Plan CT chest 08/18/2022 personally reviewed: Multinodular opacities appreciated bilaterally especially in the right upper right lower and left lower lobe Cardiomegaly Mediastinal lymphadenopathy especially station 4R 2D echo 08/11/2022: EF 65-70%, grade 1 diastolic dysfunction, moderate concentric LVH ABG 08/22/2022: 7.38/49/86 on 3 L --> 7.44/46/70 on 2 L -- Multilobar pneumonia with bacteremia MRSA positive Sputum culture positive for MRSA Blood culture 08/18/2022 negative to date Respiratory bio fire negative for everything except for parainfluenza COVID-[address] chest findings from outside the facility has limited images. Based on the limited images it seems that the patient most likely had septic emboli. -- Metabolic encephalopathy Likely multifactorial Would recommend avoiding any suppressive medications including tramadol Sepsis itself is a possibility as well as mild hypercapnia appreciated on the ABG today --COPD Greater than 97-[id number] smoking history Quit at the age of 69 Not in any exacerbation right now -- Morbid obesity with probable BASILIA BiPAP nightly and as needed shortness of breath will be helpful Plan: In/out: -2.9 L, urine output 3501 Mentation seems to be improved compared to yesterday. She is still not back to baseline ABG does not show significant hypercapnia. I doubt that is playing a role. It is most likely underlying sepsis. Continue with incentive spirometry BiPAP nightly and as needed shortness of breath will be beneficial but patient unfortunately is not tolerating it Recommend avoiding over oxygenating the patient, keep O2 saturation between 88- 92% Case was discussed with Dr. Malcolm RN as well as sister at bedside Please note the above document was generated using voice recognition software. It may contain grammatical, syntax or spelling errors.Any formal questions or concerns about the content, text or information contained within the body of this dictation should be directly addressed to the provider for clarification. Admission and Anticipated Discharge Date Admission Date: August 18, 2022 Subjective Patient seen and examined at bedside. No acute distress, no adverse events overnight She was saturating 95 to 96% on 2 L nasal cannula I took her off oxygen she was still saturating 92% She was still somnolent but more alert compared to yesterday Answering all the questions appropriately Denies any headache, no chest pain She was coughing. Unfortunately she is not using incentive spirometry and flutter valve that often. I did try to get her BiPAP yesterday but she did not tolerate it Review of Systems Review of Systems: All systems reviewed & are unremarkable except as noted in Subjective Physical Exam Physical Exam: Constitutional: No acute distress HEENT: EOMI, PERRLA Respiratory system: Decreased air entry bilaterally, no wheeze, no rhonchi, positive crackles bilaterally more on the right side CVS: S1-S2 positive, no murmurs or gallops Abdomen: Soft, nontender, nondistended, positive bowel sounds x4, obese Extremities: +2 pulses bilaterally radialis/ dorsalis pedis, no cyanosis, no edema Neuro: Somnolent, oriented to self and place Psych: Flat mood and affect G/U: Positive [place] Skin: no rashes, warm and dry Lymphatic: no cervical or axillary lymphadenopathy Results & Data Results & Data Vital Signs (Past 12 Hours) Vital Signs Temp Pulse Pulse Resp BP Pulse Ox O2 Del Method 08/23/22 07:04 36.9 C 78 20 116/61 94 Nasal Cannula 08/23/22 03:04 37 C 75 18 140/65 94 Nasal Cannula 08/22/22 23:34 79 08/22/22 23:06 37.1 C 76 18 117/64 96 Nasal Cannula 08/22/22 22:01 78 21 92 08/22/22 21:47 Nasal Cannula O2 Flow Rate 08/23/22 07:04 2 08/23/22 03:04 08/22/22 23:34 08/22/22 23:06 08/22/22 22:01 2 08/22/22 21:47 3 Laboratory Results 08/23/22 05:52 08/23/22 05:52 PG Care Time/CCT Total # of Minutes Spent Total Time Spent with Patient: Total time spent is greater than 50% in coordination of care (as documented) at patient's floor/unit and/or counseling patient: Coding Level of Care Code 94678 SUB INP/OBS CARE 3/50MIN Diagnoses Sepsis due to pneumonia J18.9; A41.9 Hypoxia R09.02 Paroxysmal atrial fibrillation I48.0 Acute respiratory failure with hypercapnia J96.02 Morbid obesity E66.01
[2022-08-23] MEDS: AMIODARONE 200 MG TAB PO SCH (08:56)
[2022-08-23] MEDS: CLOPIDOGREL BISULFATE 75 MG TAB PO SCH (08:58)
[2022-08-23] MEDS: ASPIRIN 81 MG CHEW PO SCH (08:58)
[2022-08-23] MEDS: FLUTICASONE FUROATE 100MCG 14 PUFFS/INHALER INH SCH (08:58)
[2022-08-23] MEDS: FAMOTIDINE 10 MG TABLET PO SCH (08:58)
[2022-08-23] MEDS: METOPROLOL SUCC 25MG EXT REL TAB PO SCH (08:59)
[2022-08-23] MEDS: PANTOprazole 40 MG TAB PO SCH ×2 (08:59→21:43)
[2022-08-23] MEDS: guaiFENesin 600 MG TABCR PO SCH ×2 (08:59→21:43)
[2022-08-23] MEDS: MAGNESIUM OXIDE 400 MG TAB PO SCH ×2 (08:59→21:43)
[2022-08-23] MEDS: TOPIRAMATE 25 MG TAB PO SCH ×2 (09:00→21:44)
[2022-08-23 09:16] LABS: Base Excess ABG 6.1 mEq/L (-9-1.8); HCO3 ABG 31 mmol/L (19-24); Oxygen Saturation ABG 96.5 % (90-95); PCO2 ABG 46 mmHg (35-46); PO2 ABG 70 mmHg (80-95); pH ABG 7.44 (7.35-7.45)
--- NOTE | 2022-08-23 09:21 | Hospitalist Progress Note ---
Date of Service August 23, 2022 Assessment & Plan (1) COPD (chronic obstructive pulmonary disease): (2) CHF (congestive heart failure): (3) Dyslipidemia: (4) Hypoxia: (5) Atrial fibrillation with rapid ventricular response: (6) Paroxysmal atrial fibrillation: (7) Sepsis due to pneumonia: Plan: (1) COPD (chronic obstructive pulmonary disease): (2) CHF (congestive heart failure): (3) Dyslipidemia: (4) Hypoxia: (5) Atrial fibrillation with rapid ventricular response: (6) Paroxysmal atrial fibrillation: (7) Sepsis due to pneumonia: Plan Ms. Celia Marshall is a 71-year-old female that was a direct transfer from [facility]. Patient was transferred to [facility] from local nursing facility after being found febrile with a temperature of 103 F. Patient appeared septic with unclear source. Patient was hypotensive at [facility] and started on Levophed. Chest x-ray there showed pulmonary congestion. Urinalysis at that time was negative. She was started on IV Vancomycin and cefepime there. Patient was recently admitted to [facility] in May 26 - 06/14 with ambulatory dysfunction. Patient has history of extensive sacral ulcers (now healed) and was transferred to a nursing facility upon discharge due to inability of caring for herself at home. Most recent echo 04/14; EF 70%, G1 DD X, bioprosthetic aortic valve. Septic shock secondary to MRSA pna, MRSA bacteremia +parainfluenza infection hx of bioprosthetic valve - poss. endocarditis WBC 13.64, down from what it was at [facility] febrile 103 F there; afebrile at [facility] CXR mild cardiomegaly Chest CT suggestive of RLL PNA at [facility] Hypotensive on arrival and was on Levophed; hypotension has resolved and pressors stopped. [facility] blood cultures positive - 1 cultx positive for MRSA Vanco and Cefepime started and continued. Cefepime now stopped. Blood cultures obtained here (08/18) and so far negative Sputum cultx (08/18) positive for MRSA Biofire + for parainfluenza Lactate normal 1.[address] chest scan is abnormal and per ICU repeat 6-8 weeks time to determine resolution 08/22 Pt not clinically improving - obtained CXR, ABG, pulmonary medicine consulted CT chest 3personally reviewed by cage maker machine: Multinodular opacities appreciated bilaterally especially in the right upper right lower and left lower lobe. CT chest findings from outside the facility has limited images. Based on the limited images it seems that the patient most likely had septic emboli. 08/22 CXR w/ pulm. edema and lasix given - closely followed by cardiology as well Given history of TAVR, bacteremia, echo ordered LV is normal in size. Moderate concentric LVH. LV wall motion is normal. EF 65 to 70%. Grade 1 diastolic dysfunction. There is a bioprosthetic aortic valve. Prosthetic valve gradients have points of normal and slightly increased from prior study of March 2020. There is mild thickening of the posterior mitral valve leaflet similar to prior study in March 2022. Tricuspid valve is not well visualized. ID and cardiology consulted -appreciate their input ID - Continue vancomycin iv to maintain trough 15-20, closely monitoring renal function - Need JAY to r/o prosthetic valve endocarditis - Consider MRI of brain to r/o embolic event - pt is refusing MRI - F/u repeat blood cultures (08/18). - Supportive care for parainfluenza infection Cardiology consulted - - following closely - managing amiodarone and metoprolol given low BP -Performing JAY during this hospital stay for further assessment of bacteremia and potential risk for endocarditis is certainly a consideration, however would recommend patient has optimized more from a respiratory standpoint prior to sedation, and will work on this. -08/22 pt now seems fluid overloaded, as lasix held d/t hypotension, gave small dose IV lasix and will closely monitor - discussed w/ cardiology over the phone CKD Stage III: Creatinine 1 today Paroxysmal atrial fibrillation: Takes Metoprolol and Amiodarone; continue as per cardiology Not anticoagulated due to history of GI bleeding Chronic diastolic CHF due to valvular disease: S/p TAVR: Echo 03/2022-EF > 70%, grade 1 diastolic dysfunction, normal gradient for bioprosthetic aortic valve Appeared euvolemic on admission Continue Plavix Given history of TAVR, bacteremia, echo ordered LV is normal in size. Moderate concentric LVH. LV wall motion is normal. EF 65 to 70%. Grade 1 diastolic dysfunction. There is a bioprosthetic aortic valve. Prosthetic valve gradients have points of normal and slightly increased from prior study of March 2020. There is mild thickening of the posterior mitral valve leaflet similar to prior study in March 2022. Tricuspid valve is not well visualized. Cardiology following, as above Hypothyroidism: Takes Synthroid; continue History of migraines: Takes Topiramate; continue Sacral wound: Appears to be healing well WOCN consulted Disposition: PCP: Dr. Ramirez Code Status: Full Code VTE Prophylaxis: Heparin SQ Admission and Anticipated Discharge Date Admission Date: August 18, 2022 Subjective Pt seen in follow up of sepsis, MRSA pna, bacteremia - hx of bioprosth. valve, + parainfluenza Currently laying in bed, in no acute distress, drowsy - answering simple questions appropriately Continues to have a cough. Headache resolved. Reports history of migraine headaches. ID was also consulted and recommended MRI angio of brain to rule out any septic emboli, patient refusing MRI. CT head obtained and negative for any acute pathology. Cardiology and pulmonary medicine also consulted and following closely. Followed by w/ ID today - recommend CT head w/ IV contrast to r/o septic emboli. Order placed. Yesterday, sister updated at the bedside and pt's niece Pari (one of the POA, and main contact) updated over the phone. Review of Systems Review of Systems: All systems reviewed & are unremarkable except as noted in Subjective Physical Exam Physical Exam: General: Morbidly obese female, laying in bed, in no acute distress, on supplemental oxygen HEENT: head normocephalic, moist mucus membranes CV: S1/S2, (-) M/G/R, (-) edema Resp: + crackles, + rhonchi, on suppl. O2 2L GI: Abdomen S/NT/ND, Ax4 bowel sounds, obese Musculoskeletal: moves extremities Neuro: drowsy but oriented, able to answer simple questions appropriately, speech fluent, no facial asymmetry, moves extremities Skin: warm, dry Results & Data Results & Data Vital Signs (Past 12 Hours) Vital Signs Temp Pulse Pulse Resp BP Pulse Ox O2 Del Method 08/23/22 07:04 36.9 C 78 20 116/61 94 Nasal Cannula 08/23/22 03:04 37 C 75 18 140/65 94 Nasal Cannula 08/22/22 23:34 79 08/22/22 23:06 37.1 C 76 18 117/64 96 Nasal Cannula 08/22/22 22:01 78 21 92 08/22/22 21:47 Nasal Cannula O2 Flow Rate 08/23/22 07:04 2 08/23/22 03:04 08/22/22 23:34 08/22/22 23:06 08/22/22 22:01 2 08/22/22 21:47 3 Laboratory Results 08/23/22 08/23/22 Range/Units 05:52 05:52 WBC 13.46 H (4.8-10.8) K/ul RBC 3.86 L (4.20-5.40) M/uL Hgb 12.0 (12.0-16.0) g/dl Hct 37.2 (37.0-47.0) % MCV 96.4 (80.0-100.0) fL MCH 31.1 (25.0-34.0) pg MCHC 32.3 (32.0-36.0) g/dL RDW Std Deviation 57.6 H (36.4-46.3) fL RDW Coeff of Moni 16.0 H (11.5-14.5) % Plt Count 231 (130-400) K/uL MPV 11.1 (9.4-12.4) fL Immature Gran % (Auto) 0.9 % Neut % (Auto) 71.1 % Lymph % (Auto) 10.9 % [place] % (Auto) 13.8 % Eos % (Auto) 3.0 % Baso % (Auto) 0.3 % Neut # (Auto) 9.57 H (1.40-6.50) K/uL Lymph # (Auto) 1.47 (1.2-3.4) K/uL [place] # (Auto) 1.86 H (0.11-0.59) K/uL Eos # (Auto) 0.40 (0-0.50) K/uL Baso # (Auto) 0.04 (0-0.2) K/uL Immature Gran # (Auto) 0.12 (0.01-0.20) K/uL Sodium 140 (136-145) mmol/L Potassium 4.2 (3.5-5.1) mmol/L Chloride 104 (98-107) mmol/L Carbon Dioxide 29 (21-32) mmol/L Anion Gap 7 (3-11) BUN 12 (6-23) mg/dl Creatinine 0.98 (0.6-1.2) mg/dl Est Cr Clr Drug Dosing 74.4 ml/min Est GFR ( Amer) 66.3 ml/min Est GFR (Non-Af Amer) 57.2 ml/min BUN/Creatinine Ratio 12.2 (10-20) Glucose 99 (70-99(Fasting)) mg/dl Calcium 8.9 (8.6-10.3) mg/dl Phosphorus 2.9 (2.5-4.9) mg/dl Magnesium 2.2 (1.7-2.4) mg/dl Total Bilirubin 0.4 (0.2-1.0) mg/dl AST 18 (13-39) U/L ALT 12 (7-52) U/L Alkaline Phosphatase 95 (34-104) U/L Total Protein 7.2 (6.0-8.3) gm/dl Albumin 3.0 L (3.4-5.0) gm/dl Globulin 4.2 H (2.5-4.0) gm/dl Albumin/Globulin Ratio 0.7 L (0.9-2) Medications Administered Current Inpatient Medications Acetaminophen (Acetaminophen 325 Mg Tab) 650 mg PO Q4H PRN PRN Reason: Pain or Fever Stop: 09/17/22 10:18 Last Admin: 08/21/22 04:46 Dose: 650 mg Al Hydrox/Mg Hydrox/Simethicone (Aluminum/Magnesium Susp 30 Ml Udc) 15 ml PO Q4H PRN PRN Reason: Dyspepsia Stop: 09/17/22 10:18 Albuterol (Albut/Ipratrop 3mg/0.5mg Neb 3 Ml Vial) 3 ml INH Q6H PRN; Protocol PRN Reason: Shortness Of Breath Or Wheezing Stop: 09/17/22 14:40 Amiodarone HCl (Amiodarone 200 Mg Tab) 200 mg PO QAM [facility] Stop: 09/18/22 08:59 Last Admin: 08/23/22 08:56 Dose: 200 mg Ascorbic Acid (Ascorbic Acid 500 Mg Tab) 250 mg PO DAILY@12 [facility] Stop: 09/17/22 11:59 Last Admin: 08/22/22 13:14 Dose: 250 mg Aspirin (Aspirin 81 Mg Chew) 81 mg PO DAILY [facility] Stop: 09/18/22 08:59 Last Admin: 08/23/22 08:58 Dose: 81 mg Clopidogrel Bisulfate (Clopidogrel Bisulfate 75 Mg Tab) 75 mg PO DAILY [facility] Stop: 09/18/22 08:59 Last Admin: 08/23/22 08:58 Dose: 75 mg Famotidine (Famotidine 10 Mg Tablet) 10 mg PO DAILY [facility] Stop: 09/18/22 08:59 Last Admin: 08/23/22 08:58 Dose: 10 mg Ferrous Sulfate (Ferrous Sulfate 325 Mg Tab) 325 mg PO DAILY@12 [facility] Stop: 09/17/22 11:59 Last Admin: 08/22/22 13:14 Dose: 325 mg Fluticasone Furoate (Fluticasone Furoate 100mcg 14 Puffs/Inhaler) 1 puffs INH QAM [facility] Stop: 09/17/22 11:44 Last Admin: 08/23/22 08:58 Dose: 1 puffs Guaifenesin (Guaifenesin 600 Mg Tabcr) 600 mg PO Q12 [facility] Stop: 09/20/22 12:24 Last Admin: 08/23/22 08:59 Dose: 600 mg Heparin Sodium (Porcine) (Heparin Sod 5,000 Unit/0.5 Ml Vial) 5,000 units SQ Q8H [facility] Stop: 09/17/22 16:14 Last Admin: 08/23/22 08:56 Dose: 5,000 units Vancomycin HCl 1,250 mg/ (Sodium Chloride) 275 mls @ 200 mls/hr IV Q12H [facility]; Protocol Stop: 09/04/22 09:59 Last Infusion: 08/22/22 23:38 Dose: Infused Ketoconazole (Ketoconazole 2% Cr 15 Gm Tube) 1 appln EXT BID PRN PRN Reason: Rash Stop: 08/28/22 11:14 Last Admin: 08/19/22 16:38 Dose: 1 appln Levothyroxine Sodium (Levothyroxine Sodium 25 Mcg Tablet) 25 mcg PO DAILYBB [facility] Stop: 09/18/22 06:29 Last Admin: 08/23/22 06:04 Dose: 25 mcg Magnesium Hydroxide (Magnesium Hydroxide Susp 30 Ml Udc) 30 ml PO Q12H PRN PRN Reason: Constipation Stop: 09/17/22 10:18 Magnesium Oxide (Magnesium Oxide 400 Mg Tab) 400 mg PO BID [facility] Stop: 09/17/22 20:59 Last Admin: 08/23/22 08:59 Dose: 400 mg Metoprolol Succinate (Metoprolol Succ 25mg Ext Rel Tab) 25 mg PO QAM [facility] Stop: 09/18/22 08:59 Last Admin: 08/23/22 08:59 Dose: 25 mg Miscellaneous Information (Vancomycin Consult Active) 1 each N/A UD PRN PRN Reason: Consult Stop: 09/17/22 12:44 Ondansetron HCl (Ondansetron Inj 2 Mg/Ml 2 Ml Vial) 4 mg IV Q6H PRN PRN Reason: Nausea Stop: 09/17/22 10:18 Last Admin: 08/19/22 21:32 Dose: 4 mg Pantoprazole Sodium (Pantoprazole 40 Mg Tab) 40 mg PO BID [facility] Stop: 09/17/22 20:59 Last Admin: 08/23/22 08:59 Dose: 40 mg Polyethylene Glycol (Polyethylene (Miralax) 17 Gm Pack) 17 gm PO DAILY PRN PRN Reason: Constipation Stop: 09/17/22 10:18 Simvastatin (Simvastatin 10 Mg Tab) 10 mg PO HS [facility] Stop: 09/17/22 20:59 Last Admin: 08/22/22 21:01 Dose: 10 mg Sodium Chloride (Sodium Chloride 0.65% Na Soln 45 Ml (Lovilia)) 2 sprays NA Q4H PRN PRN Reason: congestion Stop: 09/20/22 17:43 Topiramate (Topiramate 25 Mg Tab) 25 mg PO BID [facility] Stop: 09/17/22 20:59 Last Admin: 08/23/22 09:00 Dose: 25 mg
[2022-08-23 09:24] LABS: Allen Test Pos (Pos)
[2022-08-23] MEDS: VANCOMYCIN HCL 1,250 MG in SODIUM CHLORIDE 0.9% 250 ML IV SCH ×2 (09:27→21:53)
[2022-08-23] MEDS: ASCORBIC ACID 500 MG TAB PO SCH (11:41)
[2022-08-23] MEDS: FERROUS SULFATE 325 MG TAB PO SCH (11:41)
[2022-08-23] MEDS ORDERED: FUROSEMIDE INJ 20 MG/2 ML VIAL IV ONE (13:21)
--- NOTE | 2022-08-23 13:29 | Cardiology Progress Note ---
Date of Service August 23, 2022 Assessment & Plan (1) Parainfluenza virus pneumonia: (2) Staphylococcus aureus bacteremia with sepsis: (3) Open wound of buttock: Plan: - Patient with history of an open wound to the buttock. This has healed since her presentation 2 months ago. This history of course would increase her risk for systemic infection (4) S/P TAVR (transcatheter aortic valve replacement): (5) Atrial fibrillation: Plan - History of transcatheter aortic valve replacement (performed at [facility] 05/09/2019). Transthoracic echocardiogram technically limited due to patient's body habitus. -No obstructive CAD noted on pre-TAVR coronary angiography 03/20/2019 ([facility]) -Patient with multifactorial respiratory insufficiency with Staph aureus pneumonia, parainfluenza virus, and likely some degree of superimposed volume overload. -We will administer another dose of furosemide 20 mg x 1 as blood pressure allows. -Pulmonary input noted and appreciated. Agree with the plan for positive noninvasive pressure ventilation as necessary to maintain adequate oxygenation. Repeat ABG this morning revealed stable P CO2 levels of 46, PO2 is a little bit lower than yesterday at 70 as compared to 86. -Blood culture results from [facility] dated 08/17/2020 received. 1 of 2 bottles positive for methicillin resistant Staph aureus. I think a JAY would be helpful with regards to evaluation of her cardiac function and prosthetic valve given technically limited transthoracic study, however respiratory status still precludes this. In the meantime she remains on appropriate antibiotics, and is afebrile. Repeat cultures have been negative. Continue subcutaneous heparin for DVT prophylaxis. Admission and Anticipated Discharge Date Admission Date: August 18, 2022 Subjective Patient seen in cardiology follow-up. Per her sister who is at the bedside, she was doing better for seeing this morning, but then became repeatedly agitated after a phlebotomy attempt. She received 20 mg of IV furosemide early yesterday afternoon per my order, and then after she had been seen by pulmonary medicine, an additional dose was administered at 1600. 3.5 L of urine output subsequently noted, net -2.9 L, clear yellow urine noted currently on her [place] catheter. Oxygen requirements a little bit improved today and she is currently on 2 L/min of oxygen maintaining oxygen saturation 96% as compared to 3 L/min yesterday. Physical Exam Constitutional: + ill appearing; no acute distress Respiratory: Auscultation: + diminished lung sounds (Decreased breath sounds in the bases); no crackles and no rales Cardiovascular: Rate/Rhythm: regular rate and regular rhythm Extremities: no edema Gastrointestinal (Abdomen): normal bowel sounds, soft, nontender, no hepatosplenomegaly Neurologic: Patient still confused compared to her baseline mental status, but moves all 4 extremities on command without focal deficits Results & Data Vital Signs (Past 12 Hours) Vital Signs Temp Pulse Resp BP Pulse Ox O2 Del Method O2 Flow Rate 08/23/22 11:44 36.8 C 78 19 126/71 96 Nasal Cannula 2 08/23/22 07:00 Nasal Cannula 2 08/23/22 07:04 36.9 C 78 20 116/61 94 Nasal Cannula 2 08/23/22 03:04 37 C 75 18 140/65 94 Nasal Cannula Laboratory Results Cardiac Enzymes 08/23/22 Range/Units 05:52 AST 18 (13-39) U/L CBC 08/23/22 Range/Units 05:52 WBC 13.46 H (4.8-10.8) K/ul RBC 3.86 L (4.20-5.40) M/uL Hgb 12.0 (12.0-16.0) g/dl Hct 37.2 (37.0-47.0) % Plt Count 231 (130-400) K/uL Neut # (Auto) 9.57 H (1.40-6.50) K/uL Lymph # (Auto) 1.47 (1.2-3.4) K/uL [place] # (Auto) 1.86 H (0.11-0.59) K/uL Eos # (Auto) 0.40 (0-0.50) K/uL Baso # (Auto) 0.04 (0-0.2) K/uL Comprehensive Metabolic Panel 08/23/22 Range/Units 05:52 Sodium 140 (136-145) mmol/L Potassium 4.2 (3.5-5.1) mmol/L Chloride 104 (98-107) mmol/L Carbon Dioxide 29 (21-32) mmol/L BUN 12 (6-23) mg/dl Creatinine 0.98 (0.6-1.2) mg/dl Glucose 99 (70-99(Fasting)) mg/dl Calcium 8.9 (8.6-10.3) mg/dl AST 18 (13-39) U/L ALT 12 (7-52) U/L Alkaline Phosphatase 95 (34-104) U/L Total Protein 7.2 (6.0-8.3) gm/dl Albumin 3.0 L (3.4-5.0) gm/dl Intake and Output 08/22/22 08/23/22 08/23/22 22:59 06:59 14:59 Intake Total 275 / 550 275 / 275 Output Total 2700 / 3501 801 / 3501 Balance -2700 / -2951 -526 / -2951 275 / 275 Intake: IV 275 / 550 275 / 275 Vancomycin HCl 1,250 mg In 275 / 550 275 / 275 Sodium Chloride 0.9% 250 ml @ 200 mls/hr IV Q12H [facility] Rx#: [id number] Output: Urine Amount (Catheter) 2700 / 3500 800 / 3500 External 1000 / 1000 [place]/Indwelling 1700 / 2500 800 / 2500 # Bowel Movements Other: Other Intake Source sips sips Weight 138 kg
[2022-08-23] MEDS: KETOCONAZOLE 2% CR 15 GM TUBE EXT PRN (16:33)
--- NOTE | 2022-08-23 16:43 | Electrocardiogram Report ---
Test Reason : Blood Pressure : / mmHG Vent. Rate : 079 BPM Atrial Rate : 079 BPM P-R Int : 146 ms QRS Dur : 100 ms QT Int : 390 ms P-R-T Axes : 049 025 044 degrees QTc Int : 447 ms Poor data quality, interpretation may be adversely affected Normal sinus rhythm Nonspecific ST abnormality Borderline ECG When compared with ECG of 21-AUG-2022 05:09, (unconfirmed) No significant change was found Confirmed by Daryn Gonzales ([id number]) on 08/23/2022 4:43:14 PM Referred By: REFERRED SELF Confirmed By:Daryn Gonzales
[2022-08-23] MEDS: ACETAMINOPHEN 325 MG TAB PO PRN (16:57)
[2022-08-23] MEDS: SIMVASTATIN 10 MG TAB PO SCH (21:44)
[2022-08-24] MEDS: HEPARIN SOD 5,000 UNIT/0.5 ML VIAL SQ SCH ×3 (00:49→16:32)
[2022-08-24] MEDS: ACETAMINOPHEN 325 MG TAB PO PRN ×3 (05:16→23:27)
[2022-08-24] MEDS: LEVOTHYROXINE SODIUM 25 MCG TABLET PO SCH (05:17)
[2022-08-24 06:00] LABS: Basophils # (auto) 0.07 K/uL (0-0.2); Basophils % (auto) 0.4 %; Eosinophils # (auto) 0.33 K/uL (0-0.50); Hematocrit (blood only) 38.3 % (37.0-47.0); Hemoglobin 12.3 g/dl (12.0-16.0); Immature Granulocytes # (auto) 0.23 K/uL (0.01-0.20); Immature Granulocytes % (auto) 1.4 %; Lymphocytes # (auto) 1.78 K/uL (1.2-3.4); Mean Corpuscular Hemoglobin 31.5 pg (25.0-34.0); Mean Corpuscular Hgb Conc 32.1 g/dL (32.0-36.0); Mean Platelet Volume 10.6 fL (9.4-12.4); Monocytes # (auto) 1.53 K/uL (0.11-0.59); Monocytes % (auto) 9.5 %; Neutrophils # (auto) 12.23 K/uL (1.40-6.50); Neutrophils % (auto) 75.7 %; Platelet Count 265 K/uL (130-400); RDW Standard Deviation 57.4 fL (36.4-46.3); Red Blood Count 3.91 M/uL (4.20-5.40); White Blood Count 16.17 K/ul (4.8-10.8)
[2022-08-24 06:06] LABS: Potassium 4.1 mmol/L (3.5-5.1)
[2022-08-24 06:07] LABS: BUN Creatinine Ratio 13.9 (10-20); Calcium 9.1 mg/dl (8.6-10.3); Creatinine Clr Calc Pharmacy 65.4 ml/min; Est GFR (Non-African American) 50.9 ml/min; Magnesium 2.2 mg/dl (1.7-2.4); Phosphorus 2.8 mg/dl (2.5-4.9)
[2022-08-24] MEDS ORDERED: ALBUMIN 25% 12.5 GM/50 ML VIAL IV ONE (06:40)
[2022-08-24] MEDS ORDERED: DIGOXIN 250 MCG in SYRINGE 9 ML IV STA (06:40)
[2022-08-24] MEDS: AMIODARONE 200 MG TAB PO SCH (06:48)
--- NOTE | 2022-08-24 07:49 | Hospitalist Progress Note ---
Date of Service August 24, 2022 Assessment & Plan (1) COPD (chronic obstructive pulmonary disease): (2) CHF (congestive heart failure): (3) Dyslipidemia: (4) Hypoxia: (5) Atrial fibrillation with rapid ventricular response: (6) Paroxysmal atrial fibrillation: (7) Sepsis due to pneumonia: Plan: (1) COPD (chronic obstructive pulmonary disease): (2) CHF (congestive heart failure): (3) Dyslipidemia: (4) Hypoxia: (5) Atrial fibrillation with rapid ventricular response: (6) Paroxysmal atrial fibrillation: (7) Sepsis due to pneumonia: Plan Ms. Celia Marshall is a 71-year-old female that was a direct transfer from [facility]. Patient was transferred to [facility] from local nursing facility after being found febrile with a temperature of 103 F. Patient appeared septic with unclear source. Patient was hypotensive at [facility] and started on Levophed. Chest x-ray there showed pulmonary congestion. Urinalysis at that time was negative. She was started on IV Vancomycin and cefepime there. Patient was recently admitted to [facility] in May 26 - 06/14 with ambulatory dysfunction. Patient has history of extensive sacral ulcers (now healed) and was transferred to a nursing facility upon discharge due to inability of caring for herself at home. Most recent echo 04/14; EF 70%, G1 DD X, bioprosthetic aortic valve. Septic shock secondary to MRSA pna, MRSA bacteremia +parainfluenza infection hx of bioprosthetic valve - poss. endocarditis WBC 13.64, down from what it was at [facility] febrile 103 F there; afebrile at [facility] CXR mild cardiomegaly Chest CT suggestive of RLL PNA at [facility] Hypotensive on arrival and was on Levophed; hypotension has resolved and pressors stopped. [facility] blood cultures positive - 1 cultx positive for MRSA Vanco and Cefepime started and continued. Cefepime now stopped. Blood cultures obtained here (08/18) and negative Sputum cultx (08/18) positive for MRSA Biofire + for parainfluenza Lactate normal 1.[address] chest scan is abnormal and per ICU repeat 6-8 weeks time to determine resolution 08/22 Pt not clinically improving - obtained CXR, ABG, pulmonary medicine consulted CT chest 08/18/2022ersonally reviewed by master electrician: Multinodular opacities appreciated bilaterally especially in the right upper right lower and left lower lobe. CT chest findings from outside the facility has limited images. Based on the limited images it seems that the patient most likely had septic emboli. 08/22 CXR w/ pulm. edema and lasix given - closely followed by cardiology as well Repeat blood cultx (08/24/2022) obtained and pending Pulmonary medicine and cardiology following closely. Given history of TAVR, bacteremia, echo ordered LV is normal in size. Moderate concentric LVH. LV wall motion is normal. EF 65 to 70%. Grade 1 diastolic dysfunction. There is a bioprosthetic aortic valve. Prosthetic valve gradients have points of normal and slightly increased from prior study of March 2020. There is mild thickening of the posterior mitral valve leaflet similar to prior study in March 2022. Tricuspid valve is not well visualized. ID and cardiology consulted -appreciate their input ID - Continue vancomycin iv to maintain trough 15-20, closely monitoring renal function - Need JAY to r/o prosthetic valve endocarditis - Consider MRI of brain to r/o embolic event - pt is refusing MRI (pt also refusing CT head w/ IV contrast, she had CT head w/o con done) - F/u repeat blood cultures (08/18)- as above. - Supportive care for parainfluenza infection Cardiology consulted - - following closely - managing amiodarone and metoprolol given low BP -Performing JAY during this hospital stay for further assessment of bacteremia and potential risk for endocarditis is certainly a consideration, however would recommend patient has optimized more from a respiratory standpoint prior to sedation, and will work on this. -08/22 pt now seems fluid overloaded, as lasix held d/t hypotension, gave small dose IV lasix and will closely monitor - discussed w/ cardiology over the phone CKD Stage III: Creatinine 1.5 today Paroxysmal atrial fibrillation: Takes Metoprolol and Amiodarone; continue as per cardiology Not anticoagulated due to history of GI bleeding Chronic diastolic CHF due to valvular disease: S/p TAVR: Echo 03/2022-EF > 70%, grade 1 diastolic dysfunction, normal gradient for bioprosthetic aortic valve Appeared euvolemic on admission Continue Plavix Given history of TAVR, bacteremia, echo ordered LV is normal in size. Moderate concentric LVH. LV wall motion is normal. EF 65 to 70%. Grade 1 diastolic dysfunction. There is a bioprosthetic aortic valve. Prosthetic valve gradients have points of normal and slightly increased from prior study of March 2020. There is mild thickening of the posterior mitral valve leaflet similar to prior study in March 2022. Tricuspid valve is not well visualized. Cardiology following, as above Hypothyroidism: Takes Synthroid; continue History of migraines: Takes Topiramate; continue Sacral wound: Appears to be healing well WOCN consulted Disposition: PCP: Dr. Ramirez Code Status: Full Code VTE Prophylaxis: Heparin SQ Admission and Anticipated Discharge Date Admission Date: August 18, 2022 Subjective Pt seen in follow up of sepsis, MRSA pna, bacteremia - hx of bioprosth. valve, + parainfluenza Currently laying in bed, complains of LLE pain - answering simple questions appropriately, awake and alert - per sister at the bedside, patient has bad osteoarthritis, tramadol was put on hold due to her altered mental status -Per RN 25 mg of tramadol helped, will continue as needed, continue to monitor left lower extremity ID was also consulted and recommended MRI angio of brain to rule out any septic emboli, patient refusing MRI. CT head obtained and negative for any acute pathology. CT head w/ IV contrast ordered - pt refusing. Cardiology and pulmonary medicine also consulted and following closely. Discussed w/ ID yesterday - if CT head w/ IV contrast c/w septic emboli -> pt would need 6 weeks of IV Abx Panda Yañez (is one of the POAs, and main contact). Review of Systems Review of Systems: All systems reviewed & are unremarkable except as noted in Subjective Physical Exam Physical Exam: General: Morbidly obese female, laying in bed, in no acute distress, on supplemental oxygen HEENT: head normocephalic, moist mucus membranes CV: S1/S2, (-) M/G/R, (-) edema Resp: + crackles, + rhonchi, on RA GI: Abdomen S/NT/ND, Ax4 bowel sounds, obese Musculoskeletal: moves extremities Neuro: awake, able to answer simple questions appropriately, speech fluent, no facial asymmetry, moves extremities Skin: warm, dry Results & Data Results & Data Vital Signs (Past 12 Hours) Vital Signs Temp Pulse Pulse Resp BP Pulse Ox O2 Del Method 08/24/22 07:23 129 H 08/24/22 03:44 36.8 C 84 20 115/58 L 93 Nasal Cannula 08/24/22 00:00 83 08/23/22 23:38 Nasal Cannula 08/23/22 23:28 36.4 C L 77 22 128/60 94 Nasal Cannula O2 Flow Rate 08/24/22 07:23 08/24/22 03:44 2 08/24/22 00:00 08/23/22 23:38 2 08/23/22 23:28 2 Laboratory Results 08/24/22 08/24/22 08/24/22 Range/Units 05:35 05:35 05:35 WBC 16.17 H (4.8-10.8) K/ul RBC 3.91 L (4.20-5.40) M/uL Hgb 12.3 (12.0-16.0) g/dl Hct 38.3 (37.0-47.0) % MCV 98.0 (80.0-100.0) fL MCH 31.5 (25.0-34.0) pg MCHC 32.1 (32.0-36.0) g/dL RDW Std Deviation 57.4 H (36.4-46.3) fL RDW Coeff of Moni 16.0 H (11.5-14.5) % Plt Count 265 (130-400) K/uL MPV 10.6 (9.4-12.4) fL Immature Gran % (Auto) 1.4 % Neut % (Auto) 75.7 % Lymph % (Auto) 11.0 % Eddy % (Auto) 9.5 % Eos % (Auto) 2.0 % Baso % (Auto) 0.4 % Neut # (Auto) 12.23 H (1.40-6.50) K/uL Lymph # (Auto) 1.78 (1.2-3.4) K/uL Eddy # (Auto) 1.53 H (0.11-0.59) K/uL Eos # (Auto) 0.33 (0-0.50) K/uL Baso # (Auto) 0.07 (0-0.2) K/uL Immature Gran # (Auto) 0.23 H (0.01-0.20) K/uL ABG pH (7.35-7.45) ABG pCO2 (35-46) mmHg ABG pO2 (80-95) mmHg ABG HCO3 (19-24) mmol/L ABG O2 Saturation (90-95) % ABG Base Excess (-9-1.8) mEq/L Mukesh Test (Pos) Oxygen Given Sodium 139 (136-145) mmol/L Potassium 4.1 (3.5-5.1) mmol/L Chloride 103 (98-107) mmol/L Carbon Dioxide 28 (21-32) mmol/L Anion Gap 8 (3-11) BUN 15 (6-23) mg/dl Creatinine 1.08 (0.6-1.2) mg/dl Est Cr Clr Drug Dosing 65.4 ml/min Est GFR ( Amer) 59.0 ml/min Est GFR (Non-Af Amer) 50.9 ml/min BUN/Creatinine Ratio 13.9 (10-20) Glucose 98 (70-99(Fasting)) mg/dl Calcium 9.1 (8.6-10.3) mg/dl Phosphorus 2.8 (2.5-4.9) mg/dl Magnesium 2.2 (1.7-2.4) mg/dl Random Vancomycin 26.2 H* (10-20) mcg/ml 08/23/22 Range/Units 09:08 WBC (4.8-10.8) K/ul RBC (4.20-5.40) M/uL Hgb (12.0-16.0) g/dl Hct (37.0-47.0) % MCV (80.0-100.0) fL MCH (25.0-34.0) pg MCHC (32.0-36.0) g/dL RDW Std Deviation (36.4-46.3) fL RDW Coeff of Moni (11.5-14.5) % Plt Count (130-400) K/uL MPV (9.4-12.4) fL Immature Gran % (Auto) % Neut % (Auto) % Lymph % (Auto) % Eddy % (Auto) % Eos % (Auto) % Baso % (Auto) % Neut # (Auto) (1.40-6.50) K/uL Lymph # (Auto) (1.2-3.4) K/uL Eddy # (Auto) (0.11-0.59) K/uL Eos # (Auto) (0-0.50) K/uL Baso # (Auto) (0-0.2) K/uL Immature Gran # (Auto) (0.01-0.20) K/uL ABG pH 7.44 (7.35-7.45) ABG pCO2 46 (35-46) mmHg ABG pO2 70 L (80-95) mmHg ABG HCO3 31 H (19-24) mmol/L ABG O2 Saturation 96.5 H (90-95) % ABG Base Excess 6.1 H (-9-1.8) mEq/L Mukesh Test Pos (Pos) Oxygen Given 2L Sodium (136-145) mmol/L Potassium (3.5-5.1) mmol/L Chloride (98-107) mmol/L Carbon Dioxide (21-32) mmol/L Anion Gap (3-11) BUN (6-23) mg/dl Creatinine (0.6-1.2) mg/dl Est Cr Clr Drug Dosing ml/min Est GFR ( Amer) ml/min Est GFR (Non-Af Amer) ml/min BUN/Creatinine Ratio (10-20) Glucose (70-99(Fasting)) mg/dl Calcium (8.6-10.3) mg/dl Phosphorus (2.5-4.9) mg/dl Magnesium (1.7-2.4) mg/dl Random Vancomycin (10-20) mcg/ml Medications Administered Current Inpatient Medications Acetaminophen (Acetaminophen 325 Mg Tab) 650 mg PO Q4H PRN PRN Reason: Pain or Fever Stop: 09/17/22 10:18 Last Admin: 08/24/22 05:16 Dose: 650 mg Al Hydrox/Mg Hydrox/Simethicone (Aluminum/Magnesium Susp 30 Ml Udc) 15 ml PO Q4H PRN PRN Reason: Dyspepsia Stop: 09/17/22 10:18 Albuterol (Albut/Ipratrop 3mg/0.5mg Neb 3 Ml Vial) 3 ml INH Q6H PRN; Protocol PRN Reason: Shortness Of Breath Or Wheezing Stop: 09/17/22 14:40 Amiodarone HCl (Amiodarone 200 Mg Tab) 200 mg PO QAM CHRYSTAL Stop: 09/23/22 06:39 Last Admin: 08/24/22 06:48 Dose: 200 mg Ascorbic Acid (Ascorbic Acid 500 Mg Tab) 250 mg PO DAILY@12 [facility] Stop: 09/17/22 11:59 Last Admin: 08/23/22 11:41 Dose: 250 mg Aspirin (Aspirin 81 Mg Chew) 81 mg PO DAILY [facility] Stop: 09/18/22 08:59 Last Admin: 08/23/22 08:58 Dose: 81 mg Clopidogrel Bisulfate (Clopidogrel Bisulfate 75 Mg Tab) 75 mg PO DAILY [facility] Stop: 09/18/22 08:59 Last Admin: 08/23/22 08:58 Dose: 75 mg Famotidine (Famotidine 10 Mg Tablet) 10 mg PO DAILY [facility] Stop: 09/18/22 08:59 Last Admin: 08/23/22 08:58 Dose: 10 mg Ferrous Sulfate (Ferrous Sulfate 325 Mg Tab) 325 mg PO DAILY@12 [facility] Stop: 09/17/22 11:59 Last Admin: 08/23/22 11:41 Dose: 325 mg Fluticasone Furoate (Fluticasone Furoate 100mcg 14 Puffs/Inhaler) 1 puffs INH QAM [facility] Stop: 09/17/22 11:44 Last Admin: 08/23/22 08:58 Dose: 1 puffs Guaifenesin (Guaifenesin 600 Mg Tabcr) 600 mg PO Q12 [facility] Stop: 09/20/22 12:24 Last Admin: 08/23/22 21:43 Dose: 600 mg Heparin Sodium (Porcine) (Heparin Sod 5,000 Unit/0.5 Ml Vial) 5,000 units SQ Q8H [facility] Stop: 09/17/22 16:14 Last Admin: 08/24/22 00:49 Dose: 5,000 units Ketoconazole (Ketoconazole 2% Cr 15 Gm Tube) 1 appln EXT BID PRN PRN Reason: Rash Stop: 08/28/22 11:14 Last Admin: 08/23/22 16:33 Dose: 1 appln Levothyroxine Sodium (Levothyroxine Sodium 25 Mcg Tablet) 25 mcg PO DAILYBB [facility] Stop: 09/18/22 06:29 Last Admin: 08/24/22 05:17 Dose: 25 mcg Magnesium Hydroxide (Magnesium Hydroxide Susp 30 Ml Udc) 30 ml PO Q12H PRN PRN Reason: Constipation Stop: 09/17/22 10:18 Magnesium Oxide (Magnesium Oxide 400 Mg Tab) 400 mg PO BID [facility] Stop: 09/17/22 20:59 Last Admin: 08/23/22 21:43 Dose: 400 mg Metoprolol Succinate (Metoprolol Succ 25mg Ext Rel Tab) 25 mg PO QAM [facility] Stop: 09/18/22 08:59 Last Admin: 08/23/22 08:59 Dose: 25 mg Miscellaneous Information (Vancomycin Consult Active) 1 each N/A UD PRN PRN Reason: Consult Stop: 09/17/22 12:44 Ondansetron HCl (Ondansetron Inj 2 Mg/Ml 2 Ml Vial) 4 mg IV Q6H PRN PRN Reason: Nausea Stop: 09/17/22 10:18 Last Admin: 08/19/22 21:32 Dose: 4 mg Pantoprazole Sodium (Pantoprazole 40 Mg Tab) 40 mg PO BID [facility] Stop: 09/17/22 20:59 Last Admin: 08/23/22 21:43 Dose: 40 mg Polyethylene Glycol (Polyethylene (Miralax) 17 Gm Pack) 17 gm PO DAILY PRN PRN Reason: Constipation Stop: 09/17/22 10:18 Simvastatin (Simvastatin 10 Mg Tab) 10 mg PO HS [facility] Stop: 09/17/22 20:59 Last Admin: 08/23/22 21:44 Dose: 10 mg Sodium Chloride (Sodium Chloride 0.65% Na Soln 45 Ml ([place])) 2 sprays NA Q4H PRN PRN Reason: congestion Stop: 09/20/22 17:43 Topiramate (Topiramate 25 Mg Tab) 25 mg PO BID [facility]STAL Stop: 09/17/22 20:59 Last Admin: 08/23/22 21:44 Dose: 25 mg
--- NOTE | 2022-08-24 07:53 | XRay Report ---
XR chest 1V portable HISTORY: Sepsis. Follow-up. COMPARISON: Chest 08/22/2022. FINDINGS: No pneumothorax. The cardiac silhouette remains enlarged. There is an aortic valve prosthes is again noted. Trace bilateral pleural effusions. Slight improvement in the interstitial thickening and patchy bilateral airspace opacities. IMPRESSION: Slight improvement in the interstitial thickening and patchy bilateral airspace opacities. This could represent a pneumonia or pulmonary edema. ACT 112: Negative or not required by law. Electronically signed by: Huber Damian M.D. 08/24/2022 7:52 AM
--- NOTE | 2022-08-24 08:24 | Pulmonology Progress Note ---
Date of Service August 24, 2022 Assessment & Plan (1) Sepsis due to pneumonia: (2) Hypoxia: (3) Paroxysmal atrial fibrillation: (4) Acute respiratory failure with hypercapnia: (5) Morbid obesity: Plan CT chest 08/18/2022 personally reviewed: Multinodular opacities appreciated bilaterally especially in the right upper right lower and left lower lobe Cardiomegaly Mediastinal lymphadenopathy especially station 4R 2D echo 08/11/2022: EF 65-70%, grade 1 diastolic dysfunction, moderate concentric LVH ABG 08/22/2022: 7.38/49/86 on 3 L --> 7.44/46/70 on 2 L -- Multilobar pneumonia with bacteremia MRSA positive Sputum culture positive for MRSA Blood culture 08/18/2022 negative to date Respiratory bio fire negative for everything except for parainfluenza COVID-[address] chest findings from outside the facility has limited images. Based on the l imited images it seems that the patient most likely had septic emboli. -- Metabolic encephalopathy Likely multifactorial Would recommend avoiding any suppressive medications including tramadol Sepsis itself is a possibility as well as mild hypercapnia appreciated on the ABG today --COPD Greater than [id number] smoking history Quit at the age of 69 Not in any exacerbation right now -- Morbid obesity with probable BASILIA BiPAP nightly and as needed shortness of breath will be helpful Plan: In/out: - 450 mL, urine output 1650 Chest x-ray from today shows improvement compared to last time. The vascular c ongestion seems to be improved, however opacities still persist Continue with incentive spirometry BiPAP nightly and as needed shortness of breath will be beneficial but patient unfortunately is not tolerating it Recommend avoiding over oxygenating the patient, keep O2 saturation between 88- 92% Case was discussed with Dr. Fowler, RN as well as sister at bedside No further recommendation for pulmonary perspective. Would recommend another dose of Lasix tomorrow if the creatinine is good to keep the patient negative balance Please call directly with any questions Please note the above document was generated using voice recognition software. It may contain grammatical, syntax or spelling errors.Any formal questions or concerns about the content, text or information contained within the body of this dictation should be directly addressed to the provider for clarification. Admission and Anticipated Discharge Date Admission Date: August 18, 2022 Subjective Patient seen and examined at bedside. No acute distress, no adverse events overnight She seems to be more alert today. Was saturating 94% on 2 L nasal cannula. I turned off She is answering questions appropriately Denies any headache, no nausea vomiting Did complain of pain in her legs for which compression boots were removed. Has been afebrile Review of Systems Review of Systems: All systems reviewed & are unremarkable except as noted in Subjective Physical Exam Physical Exam: Constitutional: No acute distress HEENT: EOMI, PERRLA Respiratory system: Decreased air entry bilaterally, no wheeze, no rhonchi, positive crackles bilaterally more on the right side CVS: S1-S2 positive, no murmurs or gallops Abdomen: Soft, nontender, nondistended, positive bowel sounds x4, obese Extremities: +2 pulses bilaterally radialis/ dorsalis pedis, no cyanosis, no edema Neuro: Awake, alert oriented to self and place Psych: Normal mood and affect G/U: Positive [place] Skin: no rashes, warm and dry Lymphatic: no cervical or axillary lymphadenopathy Results & Data Results & Data Vital Signs (Past 12 Hours) Vital Signs Temp Pulse Pulse Resp BP BP Pulse Ox 08/24/22 08:00 36.7 C 121 H 20 114/79 92 08/24/22 07:23 129 H 08/24/22 03:44 36.8 C 84 20 115/58 L 93 08/24/22 00:00 83 08/23/22 23:38 08/23/22 23:28 36.4 C L 77 22 128/60 94 O2 Del Method O2 Flow Rate 08/24/22 08:00 Nasal Cannula 2 08/24/22 07:23 08/24/22 03:44 Nasal Cannula 2 08/24/22 00:00 08/23/22 23:38 Nasal Cannula 2 08/23/22 23:28 Nasal Cannula 2 Laboratory Results 08/24/22 05:35 08/24/22 05:35 PG Care Time/CCT Total # of Minutes Spent Total Time Spent with Patient: Total time spent is greater than 50% in coordination of care (as documented) at patient's floor/unit and/or counseling patient: Coding Level of Care Code 93402 SUB INP/OBS CARE 2/35MIN Diagnoses Sepsis due to pneumonia J18.9; A41.9 Hypoxia R09.02 Paroxysmal atrial fibrillation I48.0 Acute respiratory failure with hypercapnia J96.02 Morbid obesity E66.01
[2022-08-24] MEDS: ASPIRIN 81 MG CHEW PO SCH (08:46)
[2022-08-24] MEDS: guaiFENesin 600 MG TABCR PO SCH ×2 (08:47→20:25)
[2022-08-24] MEDS: PANTOprazole 40 MG TAB PO SCH ×2 (08:47→20:25)
[2022-08-24] MEDS: MAGNESIUM OXIDE 400 MG TAB PO SCH ×2 (08:47→20:26)
[2022-08-24] MEDS: FAMOTIDINE 10 MG TABLET PO SCH (08:48)
[2022-08-24] MEDS: METOPROLOL SUCC 25MG EXT REL TAB PO SCH (08:48)
[2022-08-24] MEDS: FLUTICASONE FUROATE 100MCG 14 PUFFS/INHALER INH SCH (08:48)
[2022-08-24] MEDS: CLOPIDOGREL BISULFATE 75 MG TAB PO SCH (08:48)
[2022-08-24] MEDS: TOPIRAMATE 25 MG TAB PO SCH ×2 (08:49→20:25)
[2022-08-24] MEDS ORDERED: traMADol HCL 50 MG TABLET PO STA (09:11)
--- NOTE | 2022-08-24 10:18 | Pharmacy Report ---
Pharmacy PK ABX Note - Date of Service August 24, 2022 - Assessment and Plan Assessment 08/24: Random vancomycin level this AM associated with a supratherapeutic AUC, despite level 48 hours earlier on same dose indicating a therapeutic AUC. SCr also beginning to rise again. Suspect reduced renal clearance is contributing to increase. Level decreased from 26.2 to 21.8 mcg/mL over 6.72 hours - equates to a t1/2 of 25 hr. Assuming stable renal function (which cannot be assumed), it's estimated that the level would fall to 15 mcg/mL at around 0200. Due to severity of illness (MRSA bacteremia), will therefore provide a small supplemental dose of vancomycin tonight as level may be subtherapeutic if hold off further vancomycin until tomorrow AM. Will obtain repeat random level with AM labs tomorrow. 08/22: Renal fxn improved and stable. Contacted [facility] to obtain BLCX update: 1 of 2 bottles growing MRSA at this outside facility. BLCXs drawn at [facility] remain no growth to date. Level drawn this AM 18.1, estimated AUC/SATYA target should be achieved reliably with current dose with ~12% risk of nephrotoxicity 08/21: Renal function continues to improve and SCr may not yet be at baseline. Current dose estimates AUC at 405 mg/L.hr, which is in the very low end of therapeutic rage. Given improving renal function and severity of infection, will increase dose. 08/20: Blood culture at outside facility with Staph species. In-house blood cultures remain negative. Sputum culture with MRSA. ID recommended JAY to rule out endocarditis given hx bioprosthetic aortic valve. Random vancomycin level this AM associated with subtherapeutic AUC. Will increase vancomycin. 08/19: Blood cultures at our facility currently negative at 24 hours, reports of + BC at outside facility ([facility])- will need follow-up for further results, sputum culture growing staph sp. Random level this morning 14.2- predicting slightly above goal range at steady state, however, continue at this dose for now pending renal function changes/PK with early dosing still in low therapeutic range. WBC increased today. May need more aggressive dosing, will get random level again tomorrow to continue evaluating dose. ID has been consulted. 08/18 71 year old F receiving EMPIRIC cefepime/vancomycin for treatment of sepsis. Pertinent microbiologic data includes: Positive MRSA Nasal Swab, blood cultures pending. Plan Vancomycin * Vancomycin 500 mg IV @ 2100 * Target AUC/SATYA of 400-600 mg/L.hr Pharmacy will continue to follow and will adjust dose/frequency as necessary. Thank you. Pharmacy has transitioned to AUC monitoring for vancomycin. AUC/SATYA is the preferred PK/PD target and is associated with decreased risk of nephrotoxicity compared to traditional trough targets.
[2022-08-24] MEDS: FERROUS SULFATE 325 MG TAB PO SCH (13:55)
[2022-08-24] MEDS: ASCORBIC ACID 500 MG TAB PO SCH (13:55)
[2022-08-24] MEDS: traMADol HCL 50 MG TABLET PO PRN ×2 (14:57→20:37)
--- NOTE | 2022-08-24 19:01 | Cardiology Progress Note ---
Date of Service August 24, 2022 Assessment & Plan (1) Parainfluenza virus pneumonia: (2) Staphylococcus aureus bacteremia with sepsis: (3) Open wound of buttock: Plan: - Patient with history of an open wound to the buttock. This has healed since her presentation 2 months ago. This history of course would increase her risk for systemic infection (4) S/P TAVR (transcatheter aortic valve replacement): (5) Atrial fibrillation: Plan - History of transcatheter aortic [place] [facility] [place] Transthoracic echocardiogram technically limited due to patient's body habitus. -No obstructive CAD noted on pre-TAVR coronary angiography 03/20/2019 ([facility]) -Patient with multifactorial respiratory insufficiency with Staph aureus pneumonia, parainfluenza virus, and likely some degree of superimposed volume overload. -Pulm status appears improved today. Hold off on Lasix for today. -With regards to the leg pain, on physical exam, the distal extremity is warm, I do not think that her pain is suggestive of a cardiac embolic event related to atrial fibrillation. -As previously noted, she is on chronic aspirin and clopidogrel, but not on chronic anticoagulation due to past gastrointestinal bleeding. For this isolated 6-hour episode of atrial fibrillation, I am going to hold off on anticoagulation for now to reduce her bleeding risk. -Blood culture results from [facility] dated 08/17/2020 received. 1 of 2 bottles positive for methicillin resistant Staph aureus. I think a JAY would be helpful with regards to evaluation of her cardiac function and prosthetic valve given technically limited transthoracic study, however respiratory status still precludes this. In the meantime she remains on appropriate antibiotics, and is afebrile. Repeat cultures have been negative. Continue subcutaneous heparin for DVT prophylaxis. Admission and Anticipated Discharge Date Admission Date: August 18, 2022 Subjective Patient seen in cardiology follow-up. Respiratory status had been improved earlier today, with oxygen having been weaned. Patient now complains of diffuse left leg pain from her thigh all the way down to the tips of her toes. She did have an episode of atrial fibrillation this morning that lasted from 6:25 AM until 12:25 PM. It is unclear whether or not the leg pain started before during or after the atrial fibrillation episode. Physical Exam Constitutional: + ill appearing and + morbidly obese; no acute distress Respiratory: Auscultation: + diminished lung sounds (Decreased breath sounds in the bases); no crackles and no rales Cardiovascular: Rate/Rhythm: regular rate and regular rhythm Extremities: no edema Gastrointestinal (Abdomen): normal bowel sounds, soft, nontender, no hepatosplenomegaly Neurologic: PERRL, EOMI, accommodation nl, no face palsy, no dysarthria (Conversant, follows commands) Results & Data Vital Signs (Past 12 Hours) Vital Signs Temp Pulse Pulse Resp BP BP Pulse Ox 08/24/22 16:48 36.6 C 91 H 18 99/57 L 89 L 08/24/22 15:45 92 H 08/24/22 11:59 36.6 C 103 H 20 98/62 L 89 L 08/24/22 11:57 08/24/22 08:00 79 08/24/22 08:00 36.7 C 121 H 20 114/79 92 08/24/22 07:23 129 H O2 Del Method O2 Flow Rate 08/24/22 16:48 Room Air 08/24/22 15:45 08/24/22 11:59 Room Air 08/24/22 11:57 Nasal Cannula 2 08/24/22 08:00 08/24/22 08:00 Nasal Cannula 2 08/24/22 07:23
[2022-08-24] MEDS: SIMVASTATIN 10 MG TAB PO SCH (20:26)
[2022-08-24] MEDS ORDERED: VANCOMYCIN HCL 500 MG in DEXTROSE 5% 100 ML IV ONE (21:00)
[2022-08-24] MEDS ORDERED: tiZANidine HCL 4 MG TABLET PO STA (23:42)
[2022-08-25] MEDS: HEPARIN SOD 5,000 UNIT/0.5 ML VIAL SQ SCH ×3 (00:20→18:00)
[2022-08-25] MEDS: traMADol HCL 50 MG TABLET PO PRN ×2 (00:32→17:59)
[2022-08-25 06:02] LABS: Hemoglobin 11.5 g/dl (12.0-16.0); Mean Corpuscular Hemoglobin 31.1 pg (25.0-34.0); Mean Corpuscular Hgb Conc 32.9 g/dL (32.0-36.0); Mean Corpuscular Volume 94.6 fL (80.0-100.0); Mean Platelet Volume 10.6 fL (9.4-12.4); Nucleated RBC # (auto) 0.02 K/uL (0-0.12); Nucleated RBC % (auto) 0.1 %; Platelet Count 268 K/uL (130-400); RDW Coefficient of Variation 15.6 % (11.5-14.5); RDW Standard Deviation 54.6 fL (36.4-46.3)
[2022-08-25 06:12] LABS: BUN Creatinine Ratio 17.7 (10-20); Calcium 9.3 mg/dl (8.6-10.3); Creatinine Clr Calc Pharmacy 61.7 ml/min; Est GFR (African American) 55.8 ml/min; Est GFR (Non-African American) 48.2 ml/min; Magnesium 2.2 mg/dl (1.7-2.4); Potassium 3.6 mmol/L (3.5-5.1)
[2022-08-25] MEDS: LEVOTHYROXINE SODIUM 25 MCG TABLET PO SCH (06:38)
--- NOTE | 2022-08-25 07:49 | Pharmacy Report ---
Pharmacy PK ABX Note - Date of Service August 25, 2022 - Assessment and Plan Assessment 08/25: JAY recommended, but respiratory compromise is still precluding it. Random vancomycin level this AM likely therapeutic, although changing renal function makes accurate estimation of AUC problematic. Patient does seem to be clearing vancomycin and had 1550 mL of charted UOP yesterday, with 550 mL thus far today. SCr is also mostly stable, only rising from 1.08 to 1.13 mg/dL over the last 24 hours. Will tentatively schedule two low doses of 7.8 mg/kg of vancomycin q12 x2 doses today. Random level with AM labs tomorrow. 08/24: Random vancomycin level this AM associated with a supratherapeutic AUC, despite level 48 hours earlier on same dose indicating a therapeutic AUC. SCr also beginning to rise again. Suspect reduced renal clearance is contributing to increase. Level decreased from 26.2 to 21.8 mcg/mL over 6.72 hours - equates to a t1/2 of 25 hr. Assuming stable renal function (which cannot be assumed), it's estimated that the level would fall to 15 mcg/mL at around 0200. Due to severity of illness (MRSA bacteremia), will therefore provide a small supplemental dose of vancomycin tonight as level may be subtherapeutic if hold off further vancomycin until tomorrow AM. Will obtain repeat random level with AM labs tomorrow. 08/22: Renal fxn improved and stable. Contacted [facility] to obtain BLCX update: 1 of 2 bottles growing MRSA at this outside facility. BLCXs drawn at [facility] remain no growth to date. Level drawn this AM 18.1, estimated AUC/SATYA target should be achieved reliably with current dose with ~12% risk of nephrotoxicity 08/21: Renal function continues to improve and SCr may not yet be at baseline. Current dose estimates AUC at 405 mg/L.hr, which is in the very low end of therapeutic rage. Given improving renal function and severity of infection, will increase dose. 08/20: Blood culture at outside facility with Staph species. In-house blood cultures remain negative. Sputum culture with MRSA. ID recommended JAY to rule out endocarditis given hx bioprosthetic aortic valve. Random vancomycin level this AM associated with subtherapeutic AUC. Will increase vancomycin. 08/19: Blood cultures at our facility currently negative at 24 hours, reports of + BC at outside facility ([facility])- will need follow-up for further results, sputum culture growing staph sp. Random level this morning 14.2- predicting slightly above goal range at steady state, however, continue at this dose for now pending renal function changes/PK with early dosing still in low therapeutic range. WBC increased today. May need more aggressive dosing, will get random level again tomorrow to continue evaluating dose. ID has been consulted. 08/18 71 year old F receiving EMPIRIC cefepime/vancomycin for treatment of sepsis. Pertinent microbiologic data includes: Positive MRSA Nasal Swab, blood cultures pending. Plan Vancomycin * Vancomycin 1000 mg IV q12h x2 doses * Target AUC/SATYA of 400-600 mg/L.hr * Random level with AM labs 08/26 Pharmacy will continue to follow and will adjust dose/frequency as necessary. Thank you. Pharmacy has transitioned to AUC monitoring for vancomycin. AUC/SATYA is the preferred PK/PD target and is associated with decreased risk of nephrotoxicity compared to traditional trough targets.
[2022-08-25] MEDS: PANTOprazole 40 MG TAB PO SCH ×2 (08:32→22:13)
[2022-08-25] MEDS: VANCOMYCIN HCL 1,000 MG in SODIUM CHLORIDE 0.9% 250 ML IV SCH ×2 (08:32→21:39)
[2022-08-25] MEDS: guaiFENesin 600 MG TABCR PO SCH ×2 (08:32→22:12)
[2022-08-25] MEDS: MAGNESIUM OXIDE 400 MG TAB PO SCH ×2 (08:32→22:13)
[2022-08-25] MEDS: TOPIRAMATE 25 MG TAB PO SCH ×2 (08:33→22:14)
[2022-08-25] MEDS: AMIODARONE 200 MG TAB PO SCH (08:33)
[2022-08-25] MEDS: ASPIRIN 81 MG CHEW PO SCH (08:33)
[2022-08-25] MEDS: METOPROLOL SUCC 25MG EXT REL TAB PO SCH (08:33)
[2022-08-25] MEDS: CLOPIDOGREL BISULFATE 75 MG TAB PO SCH (08:33)
[2022-08-25] MEDS: FAMOTIDINE 10 MG TABLET PO SCH (08:33)
[2022-08-25] MEDS: FLUTICASONE FUROATE 100MCG 14 PUFFS/INHALER INH SCH (08:34)
--- NOTE | 2022-08-25 09:10 | Hospitalist Progress Note ---
Date of Service August 25, 2022 Assessment & Plan (1) COPD (chronic obstructive pulmonary disease): (2) CHF (congestive heart failure): (3) Dyslipidemia: (4) Hypoxia: (5) Atrial fibrillation with rapid ventricular response: (6) Paroxysmal atrial fibrillation: (7) Sepsis due to pneumonia: Plan: 71-year-old female that was a direct transfer from [facility]. Patient was transferred to [facility] from local nursing facility after being found febrile with a temperature of 103 F. Patient was hypotensive at [facility] and started on Levophed. Chest x-ray there showed pulmonary congestion. Urinalysis at that time was negative. She was started on IV Vancomycin and cefepime there. Hypotension resolved on arrival and pressors were stopped. Septic shock secondary to MRSA pna, MRSA bacteremia +parainfluenza infection hx of bioprosthetic valve WBC 13.64, down from what it was at [facility] febrile 103 F there; afebrile at [facility] CXR mild cardiomegaly Chest CT suggestive of RLL PNA at [facility] blood cultures positive - 1 cultx positive for MRSA Vanco and Cefepime started and continued. Cefepime now stopped. Blood cultures obtained here (08/18) and negative Sputum cultx (08/18) positive for MRSA Biofire + for parainfluenza Lactate normal 1.[address] chest scan is abnormal and per ICU repeat 6-8 weeks time to determine resolution 08/22 Pt not clinically improving - obtained CXR, ABG, pulmonary medicine consulted CT chest 08/18/2022ersonally reviewed by ritual circumciser: Multinodular opacities appreciated bilaterally especially in the right upper right lower and left lower lobe. CT chest findings from outside the facility has limited images. Based on the limited images it seems that the patient most likely had septic emboli. 08/22 CXR w/ pulm. edema and lasix given - closely followed by cardiology as well Repeat blood cultx (08/24/2022) negative Given history of TAVR, bacteremia, echo ordered LV is normal in size. Moderate concentric LVH. LV wall motion is normal. EF 65 to 70%. Grade 1 diastolic dysfunction. There is a bioprosthetic aortic valve. Prosthetic valve gradients have points of normal and slightly increased from prior study of March 2020. There is mild thickening of the posterior mitral valve leaflet similar to prior study in March 2022. Tricuspid valve is not well visualized. Cardiology consulted, however, patient is still requiring oxygen and doesn't appear stable enough for JAY which is currently being deferred. CKD Stage III: Creatinine 1.5 today Paroxysmal atrial fibrillation: Takes Metoprolol and Amiodarone; continue as per cardiology Not anticoagulated due to history of GI bleeding Chronic diastolic CHF due to valvular disease: S/p TAVR: Echo 03/2022-EF > 70%, grade 1 diastolic dysfunction, normal gradient for bioprosthetic aortic valve Appeared euvolemic on admission, no clear fluid overload Continue Plavix, oral lasix Hypothyroidism: chronic, stable. Takes Synthroid; continue History of migraines: chronic, stable. Takes Topiramate; continue Sacral wound: Appears to be healing well WOCN consulted Disposition: PCP: Dr. Ramirez Code Status: Full Code VTE Prophylaxis: Heparin SQ DO Altagracia Najera Hospitalist Admission and Anticipated Discharge Date Admission Date: August 18, 2022 Subjective 71 yo F admitted for septic chock 2/2 MRSA bacteremia and parainfluenza pneumonia with MRSA reports persistent cough declined PT today because she wasn't feeling well has not mobilized out of bed much afebrile and tolerating PO Review of Systems Review of Systems: All systems were reviewed and negative except as indicated on HPI above. Physical Exam Physical Exam: CONSTITUTIONAL: morbid obesity, vitals as above, generally well-appearing, NAD EYES:normal conjunctivae, no scleral icterus ENT: external ear and nose normal, some dried blood under left nare that appears 2/2 nasal canula. NECK: trachea midline RESPIRATORY: clear to auscultation bilaterally, no crackles, rales or wheezes, normal respiratory effort CARDIOVASCULAR: regular rate and rhythm, S1 and 2 heard without murmurs, gallops or rubs, no JVD, no peripheral edema CHEST: inspection of chest was normal GASTROINTESTINAL: soft, nontender, ND, no guarding MUSCULOSKELETAL: generalized weakness with no gross focal deficit, head is normocephalic and atraumatic, neck supple, normal palpation of chest wall without tenderness SKIN: warm and dry NEUROLOGIC: CN 2-12 grossly intact, no sensory deficit, normal cognition, normal speech, no tremor PSYCHIATRIC: alert cooperative and oriented to person, place and time. Results & Data Results & Data Vital Signs (Past 12 Hours) Vital Signs Temp Pulse Pulse Resp BP BP Pulse Ox 08/25/22 07:06 36.9 C 58 L 20 115/59 L 91 08/25/22 00:00 79 08/25/22 03:23 36.9 C 67 21 111/67 91 08/24/22 22:55 36.9 C 79 22 103/56 L 94 O2 Del Method O2 Flow Rate 08/25/22 07:06 Nasal Cannula 2 08/25/22 00:00 08/25/22 03:23 Nasal Cannula 2 08/24/22 22:55 Nasal Cannula 2 Laboratory Results Short CBC 08/25/22 Range/Units 05:38 WBC 14.50 H (4.8-10.8) K/ul Hgb 11.5 L (12.0-16.0) g/dl Hct 35.0 L (37.0-47.0) % Plt Count 268 (130-400) K/uL BMP 08/25/22 05:38 Sodium 138 Potassium 3.6 Chloride 104 Carbon Dioxide 26 BUN 20 Creatinine 1.13 Glucose 105 H Calcium 9.3 Medications Administered Current Inpatient Medications Acetaminophen (Acetaminophen 325 Mg Tab) 650 mg PO Q4H PRN PRN Reason: Pain or Fever Stop: 09/17/22 10:18 Last Admin: 08/24/22 23:27 Dose: 650 mg Al Hydrox/Mg Hydrox/Simethicone (Aluminum/Magnesium Susp 30 Ml Udc) 15 ml PO Q4H PRN PRN Reason: Dyspepsia Stop: 09/17/22 10:18 Albuterol (Albut/Ipratrop 3mg/0.5mg Neb 3 Ml Vial) 3 ml INH Q6H PRN; Protocol PRN Reason: Shortness Of Breath Or Wheezing Stop: 09/17/22 14:40 Amiodarone HCl (Amiodarone 200 Mg Tab) 200 mg PO QAM [facility] Stop: 09/23/22 06:39 Last Admin: 08/25/22 08:33 Dose: 200 mg Ascorbic Acid (Ascorbic Acid 500 Mg Tab) 250 mg PO DAILY@12 [facility] Stop: 09/17/22 11:59 Last Admin: 08/24/22 13:55 Dose: 250 mg Aspirin (Aspirin 81 Mg Chew) 81 mg PO DAILY [facility] Stop: 09/18/22 08:59 Last Admin: 08/25/22 08:33 Dose: 81 mg Clopidogrel Bisulfate (Clopidogrel Bisulfate 75 Mg Tab) 75 mg PO DAILY [facility] Stop: 09/18/22 08:59 Last Admin: 08/25/22 08:33 Dose: 75 mg Diclofenac Sodium (Diclofenac Sod 1% Gel 100 Gm Tube) 2 gm EXT QID PRN; Protocol PRN Reason: LLE pain Stop: 09/24/22 00:46 Famotidine (Famotidine 10 Mg Tablet) 10 mg PO DAILY [facility] Stop: 09/18/22 08:59 Last Admin: 08/25/22 08:33 Dose: 10 mg Ferrous Sulfate (Ferrous Sulfate 325 Mg Tab) 325 mg PO DAILY@12 [facility] Stop: 09/17/22 11:59 Last Admin: 08/24/22 13:55 Dose: 325 mg Fluticasone Furoate (Fluticasone Furoate 100mcg 14 Puffs/Inhaler) 1 puffs INH QAM [facility] Stop: 09/17/22 11:44 Last Admin: 08/25/22 08:34 Dose: 1 puffs Guaifenesin (Guaifenesin 600 Mg Tabcr) 600 mg PO Q12 [facility] Stop: 09/20/22 12:24 Last Admin: 08/25/22 08:32 Dose: 600 mg Heparin Sodium (Porcine) (Heparin Sod 5,000 Unit/0.5 Ml Vial) 5,000 units SQ Q8H [facility] Stop: 09/17/22 16:14 Last Admin: 08/25/22 08:33 Dose: 5,000 units Vancomycin HCl 1,000 mg/ (Sodium Chloride) 270 mls @ 200 mls/hr IV Q12H [facility] Stop: 09/08/22 07:59 Last Admin: 08/25/22 08:32 Dose: 200 mls/hr Ketoconazole (Ketoconazole 2% Cr 15 Gm Tube) 1 appln EXT BID PRN PRN Reason: Rash Stop: 08/28/22 11:14 Last Admin: 08/23/22 16:33 Dose: 1 appln Levothyroxine Sodium (Levothyroxine Sodium 25 Mcg Tablet) 25 mcg PO DAILYBB [facility] Stop: 09/18/22 06:29 Last Admin: 08/25/22 06:38 Dose: 25 mcg Magnesium Hydroxide (Magnesium Hydroxide Susp 30 Ml Udc) 30 ml PO Q12H PRN PRN Reason: Constipation Stop: 09/17/22 10:18 Magnesium Oxide (Magnesium Oxide 400 Mg Tab) 400 mg PO BID [facility] Stop: 09/17/22 20:59 Last Admin: 08/25/22 08:32 Dose: 400 mg Metoprolol Succinate (Metoprolol Succ 25mg Ext Rel Tab) 25 mg PO QAM [facility] Stop: 09/18/22 08:59 Last Admin: 08/25/22 08:33 Dose: 25 mg Miscellaneous Information (Vancomycin Consult Active) 1 each N/A UD PRN PRN Reason: Consult Stop: 09/17/22 12:44 Ondansetron HCl (Ondansetron Inj 2 Mg/Ml 2 Ml Vial) 4 mg IV Q6H PRN PRN Reason: Nausea Stop: 09/17/22 10:18 Last Admin: 08/19/22 21:32 Dose: 4 mg Pantoprazole Sodium (Pantoprazole 40 Mg Tab) 40 mg PO BID [facility] Stop: 09/17/22 20:59 Last Admin: 08/25/22 08:32 Dose: 40 mg Polyethylene Glycol (Polyethylene (Miralax) 17 Gm Pack) 17 gm PO DAILY PRN PRN Reason: Constipation Stop: 09/17/22 10:18 Simvastatin (Simvastatin 10 Mg Tab) 10 mg PO HS [facility] Stop: 09/17/22 20:59 Last Admin: 08/24/22 20:26 Dose: 10 mg Sodium Chloride (Sodium Chloride 0.65% Na Soln 45 Ml (Dalzell)) 2 sprays NA Q4H PRN PRN Reason: congestion Stop: 09/20/22 17:43 Topiramate (Topiramate 25 Mg Tab) 25 mg PO BID [facility] Stop: 09/17/22 20:59 Last Admin: 08/25/22 08:33 Dose: 25 mg Tramadol HCl (Tramadol Hcl 50 Mg Tablet) 25 - 50 mg PO Q4H PRN PRN Reason: Pain Stop: 09/23/22 23:41 Last Admin: 08/25/22 00:32 Dose: 50 mg
[2022-08-25] MEDS: ASCORBIC ACID 500 MG TAB PO SCH (13:07)
[2022-08-25] MEDS: FERROUS SULFATE 325 MG TAB PO SCH (13:08)
[2022-08-25] MEDS ORDERED: FUROSEMIDE INJ 20 MG/2 ML VIAL IV ONE (13:11)
[2022-08-25] MEDS ORDERED: POTASSIUM CHLORIDE CRTAB 20 MEQ TABCR PO STA (13:13)
--- NOTE | 2022-08-25 13:16 | Cardiology Consultation ---
Date of Consultation August 25, 2022 Assessment & Plan (1) Parainfluenza virus pneumonia: (2) Staphylococcus aureus bacteremia with sepsis: (3) Open wound of buttock: - Patient with history of an open wound to the buttock. This has healed since her presentation 2 months ago. This history of course would increase her risk for systemic infection (4) S/P TAVR (transcatheter aortic valve replacement): (5) Atrial fibrillation: Plan - History of transcatheter aortic valve replacement (performed at [facility] [place] 05/09/2019[place] Transthoracic echocardiogram technically limited due to patient's body habitus. -No obstructive CAD noted on pre-TAVR coronary angiography 03/20/2019 ([facility]) -Patient with multifactorial respiratory insufficiency with Staph aureus pneumonia, parainfluenza virus. -Pulm status appears improved today. Hold off on Lasix for today. -Leg discomfort improved. -No additional atrial fibrillation since a.m. of 08/24/2022 -Patient mental status certainly much improved. She is now on 2 L nasal cannula, having been weaned from oxygen for a brief amount of time on 08/24/2022. We will administer dose of furosemide 20 mg IV x1 along with potassium chloride 20 mill equivalents. Given her IV antibiotic input, utilizing IV furosemide on an as-needed basis to keep her intake and output even to perhaps a little bit negative. -She remains afebrile. Blood cultures drawn at this institution on 08/24/2022 negative, as well as negative cultures on 08/18/2022. -With only having 1 out of 2 blood cultures abnormal on presentation to [facility] for MRSA, I am not quite convinced that we need to be too aggressive with proceeding with a JAY given her tenuous respiratory status, but the benefits and risk of this will continue to be weighed daily. Continue subcutaneous heparin for DVT prophylaxis. History of Present Illness Attending Physician: Corrina Marie DO History of Present Illness Patient seen in cardiology follow-up. Patient more awake today. No recurrent atrial fibrillation overnight or thus far today. Sinus rhythm in the 60s noted on telemetry. Left leg pain improved. She has had some pain over her right wrist that looks like a superficial phlebitis at an IV site. Allergies Allergy/AdvReac Type Severity Reaction Status Date / Time dog dander Allergy Intermediate Sneezing Verified 03/20/19 08:57 egg Allergy SPECIFIC-DUCK Verified 03/20/19 08:57 EGG CAUSED FACIAL SWELLING pollen extracts Allergy HAYFEVER Verified 03/20/19 08:57 methylprednisolone AdvReac Unknown [facility]/20[facility]19 08[facility] Home Medications Medication Instructions Recorded Confirmed Type albuterol sulfate 90 mcg/actuation 2 puff inhalation QID PRN 01/02/18 08/18/22 History aerosol inhaler (Ventolin HFA) Shortness Of Breath Or Wheezing pantoprazole 40 mg tablet,delayed 40 mg PO BID 01/02/18 08/18/22 History release ferrous sulfate 325 mg (65 mg 325 mg PO DAILY@12 #30 tabs 07/21/18 08/18/22 Rx iron) tablet magnesium oxide 400 mg (241.3 mg 400 mg PO BID #60 tabs 07/21/18 08/18/22 Rx magnesium) tablet metoprolol succinate 25 mg capsule 25 mg PO QAM 09/04/18 08/18/22 History sprinkle, ext. release 24 hr acetaminophen 500 mg tablet 650 mg PO Q4 PRN Pain 10/17/18 08/18/22 History (Tylenol Extra Strength) amiodarone 200 mg tablet 200 mg PO QAM 10/17/18 08/18/22 History ascorbic acid (vitamin C) 500 mg 250 mg PO DAILY@12 10/17/18 08/18/22 History tablet aspirin 81 mg chewable tablet 81 mg PO DAILY 03/19/19 08/18/22 History fluticasone propionate 220 1 puff inhalation BID 03/19/19 08/18/22 History mcg/actuation HFA aerosol inhaler (Flovent HFA) clopidogrel 75 mg tablet 75 mg PO DAILY 04/03/22 08/18/22 History ipratropium 0.5 mg-albuterol 3 mg 3 ml inhalation Q6H PRN Shortness 04/03/22 08/18/22 History (2.5 mg base)/3 mL nebulization Of Breath Or Wheezing soln levothyroxine 25 mcg tablet 25 mcg PO DAILY 04/03/22 08/18/22 History simvastatin 10 mg tablet 10 mg PO HS 04/03/22 08/18/22 History topiramate 25 mg tablet 25 mg PO BID 04/03/22 08/18/22 History furosemide 20 mg tablet 40 mg PO QAM #30 tabs 04/06/22 08/18/22 Rx famotidine 10 mg tablet 10 mg PO DAILY 04/13/22 08/18/22 History ketoconazole 2 % topical cream 1 applic topical BID PRN Rash 04/13/22 08/18/22 History tramadol 50 mg tablet 50 mg PO HS PRN headache or 06/15/22 08/18/22 Rx arthritis pain 5 days #5 tabs Patient History Medical History Aortic stenosis Atrial fibrillation Cardiac murmur CHF (congestive heart failure) CKD (chronic kidney disease), stage III COPD (chronic obstructive pulmonary disease) Dyslipidemia GERD (gastroesophageal reflux disease) History of migraine Kidney stones Migraine Obesity Osteoarthritis Paroxysmal atrial fibrillation Sepsis due to pneumonia SOB (shortness of breath) on exertion Stomach ulcer HX Tobacco abuse quit 3 months ago Surgical History History of colonoscopy History of cystoscopy History of esophagogastroduodenoscopy (EGD) Hx of cholecystectomy Family History Father Family history of diabetes mellitus Social History Smoking Status: Former smoker Tobacco Type: Cigarettes Cigarettes Per Day: QUIT 2 MONTHS AGO; Second Hand Exposure: No; Do You Dip or Chew Tobacco: No; Hx Alcohol Use: No Hx Substance Use: No Preferred Language: Mauritanian Communication Ability: Effective Informatics Developer Required: No Beliefs That Will Affect Care: None Current Living Situation: Retirement Current Living Situation Comment: lives in a trailer with sister Feels Safe at Home: No Is there a partner from a previous relationship who is making you feel unsafe now?: No Assistive Devices: Walker and Wheelchair Physical Exam Constitutional: + ill appearing and + morbidly obese; no acute distress Respiratory: Auscultation: + diminished lung sounds (Decreased breath sounds in the bases); no crackles and no rales Cardiovascular: Rate/Rhythm: regular rate and regular rhythm Extremities: no edema Gastrointestinal (Abdomen): normal bowel sounds, soft, nontender, no hepatosplenomegaly Neurologic: PERRL, EOMI, accommodation nl, no face palsy, no dysarthria (Conversant, follows commands) Results & Data Vital Signs (Past 12 Hours) Vital Signs Temp Pulse Pulse Resp BP BP Pulse Ox 08/25/22 11:19 36.9 C 61 18 107/49 L 93 08/25/22 08:00 59 L 08/25/22 07:06 36.9 C 58 L 20 115/59 L 91 08/25/22 03:23 36.9 C 67 21 111/67 91 O2 Del Method O2 Flow Rate 08/25/22 11:19 Nasal Cannula 2 08/25/22 08:00 08/25/22 07:06 Nasal Cannula 2 08/25/22 03:23 Nasal Cannula 2 Laboratory Results CBC 08/25/22 Range/Units 05:38 WBC 14.50 H (4.8-10.8) K/ul RBC 3.70 L (4.20-5.40) M/uL Hgb 11.5 L (12.0-16.0) g/dl Hct 35.0 L (37.0-47.0) % Plt Count 268 (130-400) K/uL Comprehensive Metabolic Panel 08/25/22 Range/Units 05:38 Sodium 138 (136-145) mmol/L Potassium 3.6 (3.5-5.1) mmol/L Chloride 104 (98-107) mmol/L Carbon Dioxide 26 (21-32) mmol/L BUN 20 (6-23) mg/dl Creatinine 1.13 (0.6-1.2) mg/dl Glucose 105 H (70-99(Fasting)) mg/dl Calcium 9.3 (8.6-10.3) mg/dl
[2022-08-25] MEDS: SIMVASTATIN 10 MG TAB PO SCH (22:14)
[2022-08-26] MEDS: HEPARIN SOD 5,000 UNIT/0.5 ML VIAL SQ SCH ×3 (00:17→17:29)
[2022-08-26] MEDS: LEVOTHYROXINE SODIUM 25 MCG TABLET PO SCH (06:15)
[2022-08-26 06:53] LABS: Creatinine Clr Calc Pharmacy 65.2 ml/min; Est GFR (Non-African American) 50.9 ml/min
[2022-08-26] MEDS ORDERED: VANCOMYCIN HCL 750 MG in SODIUM CHLORIDE 0.9% 250 ML IV SCH (08:00)
[2022-08-26] MEDS: TOPIRAMATE 25 MG TAB PO SCH ×2 (08:42→20:43)
[2022-08-26] MEDS: PANTOprazole 40 MG TAB PO SCH ×2 (08:42→20:43)
[2022-08-26] MEDS: MAGNESIUM OXIDE 400 MG TAB PO SCH ×2 (08:43→20:43)
[2022-08-26] MEDS: FAMOTIDINE 10 MG TABLET PO SCH (08:43)
[2022-08-26] MEDS: METOPROLOL SUCC 25MG EXT REL TAB PO SCH (08:43)
[2022-08-26] MEDS: guaiFENesin 600 MG TABCR PO SCH ×2 (08:43→20:43)
[2022-08-26] MEDS: ASPIRIN 81 MG CHEW PO SCH (08:43)
[2022-08-26] MEDS: CLOPIDOGREL BISULFATE 75 MG TAB PO SCH (08:43)
[2022-08-26] MEDS: AMIODARONE 200 MG TAB PO SCH (08:43)
[2022-08-26] MEDS: FLUTICASONE FUROATE 100MCG 14 PUFFS/INHALER INH SCH (08:44)
[2022-08-26] MEDS: DICLOFENAC SOD 1% GEL 100 GM TUBE EXT PRN (08:44)
[2022-08-26] MEDS: traMADol HCL 50 MG TABLET PO PRN (08:45)
--- NOTE | 2022-08-26 11:21 | Pharmacy Report ---
Pharmacy PK ABX Note - Date of Service August 26, 2022 - Assessment and Plan Assessment 08/26: Random level this AM returned at 20.1 mcg/mL. According to AUC/SATYA calculation software, this level is therapeutic. However, there is some concern that level could quickly become supratherapeutic for the following reasons: elevated BMI and risk for accumulation which was seen with a previous regimen and random level being drawn only after 2 doses of current regimen which does not indicate steady state. Renal fxn appears stable. Over the last 5 days, serum creatinine has toggled between 0.98-1.13 mg/dL. Therefore, planning on reducing the vancomycin dose today to provide 5.8 mg/kg IV every 12 hours x 2 doses. Will recheck a random level in the AM. Goal trough is approximately 15 mcg/mL. Did attempt to have turbidity method performed on sputum culture to confirm a true Vanc SATYA of 2 but sample has been disposed after a weeks time. 08/25: JAY recommended, but respiratory compromise is still precluding it. Random vancomycin level this AM likely therapeutic, although changing renal function makes accurate estimation of AUC problematic. Patient does seem to be clearing vancomycin and had 1550 mL of charted UOP yesterday, with 550 mL thus far today. SCr is also mostly stable, only rising from 1.08 to 1.13 mg/dL over the last 24 hours. Will tentatively schedule two low doses of 7.8 mg/kg of vancomycin q12 x2 doses today. Random level with AM labs tomorrow. 08/24: Random vancomycin level this AM associated with a supratherapeutic AUC, despite level 48 hours earlier on same dose indicating a therapeutic AUC. SCr also beginning to rise again. Suspect reduced renal clearance is contributing to increase. Level decreased from 26.2 to 21.8 mcg/mL over 6.72 hours - equates to a t1/2 of 25 hr. Assuming stable renal function (which cannot be assumed), it's estimated that the level would fall to 15 mcg/mL at around 0200. Due to severity of illness (MRSA bacteremia), will therefore provide a small supplemental dose of vancomycin tonight as level may be subtherapeutic if hold off further vancomycin until tomorrow AM. Will obtain repeat random level with AM labs tomorrow. 08/22: Renal fxn improved and stable. Contacted [facility] to obtain BLCX update: 1 of 2 bottles growing MRSA at this outside facility. BLCXs drawn at [facility] remain no growth to date. Level drawn this AM 18.1, estimated AUC/SATYA target should be achieved reliably with current dose with ~12% risk of nephrotoxicity 08/21: Renal function continues to improve and SCr may not yet be at baseline. Current dose estimates AUC at 405 mg/L.hr, which is in the very low end of therapeutic rage. Given improving renal function and severity of infection, will increase dose. 08/20: Blood culture at outside facility with Staph species. In-house blood cultures remain negative. Sputum culture with MRSA. ID recommended JAY to rule out endocarditis given hx bioprosthetic aortic valve. Random vancomycin level this AM associated with subtherapeutic AUC. Will increase vancomycin. 08/19: Blood cultures at our facility currently negative at 24 hours, reports of + BC at outside facility ([facility] in [facility])- will need follow-up for further results, sputum culture growing staph sp. Random level this morning 14.2- predicting slightly above goal range at steady state, however, continue at this dose for now pending renal function changes/PK with early dosing still in low therapeutic range. WBC increased today. May need more aggressive dosing, will get random level again tomorrow to continue evaluating dose. ID has been consulted. 08/18: 71 year old F receiving EMPIRIC cefepime/vancomycin for treatment of sepsis. Pertinent microbiologic data includes: Positive MRSA Nasal Swab, blood cultures pending. Plan Vancomycin * Current regimen: 1000 mg IV every 12 hours * Random level obtained 08/26/22 resulted as 20.1 mcg/mL. This is predicted to achieve target AUC/SATYA of 400-600 mg/L.hr. However, will reduce dose based on reasons listed above. * Change to 750 mg IV every 12 hours * Repeat random level ordered for: 08/27/22 Pharmacy will continue to follow and will adjust dose/frequency as necessary. Thank you. Pharmacy has transitioned to AUC monitoring for vancomycin. AUC/SATYA is the preferred PK/PD target and is associated with decreased risk of nephrotoxicity compared to traditional trough targets.
[2022-08-26] MEDS: FERROUS SULFATE 325 MG TAB PO SCH (13:36)
[2022-08-26] MEDS: ASCORBIC ACID 500 MG TAB PO SCH (13:36)
--- NOTE | 2022-08-26 14:43 | Cardiology Progress Note ---
Date of Service August 26, 2022 Assessment & Plan (1) Staphylococcus aureus pneumonia: (2) Staphylococcus aureus bacteremia with sepsis: (3) Parainfluenza virus pneumonia: (4) Open wound of buttock: Plan: - Patient with history of an open wound to the buttock. This has healed since her presentation 2 months ago. This history of course would increase her risk for systemic infection (5) S/P TAVR (transcatheter aortic valve replacement): (6) Atrial fibrillation: Plan - History of transcatheter aortic valve replacement (performed at [facility] [place]/09/2019). Transthoracic echocardiogram this admission technically limited due to patient's body habitus with hyperdynamic left ventricular systolic function, trans aortic valve prosthetic velocities slightly higher than the previous, tricuspid valve inadequately visualized. -No obstructive CAD noted on pre-TAVR coronary angiography 03/20/2019 ([facility]) -Patient with multifactorial respiratory insufficiency with Staph aureus pneumonia, parainfluenza virus, underlying diastolic dysfunction -Pulm status appears improved today. Hold off on Lasix for today. -Leg discomfort improved. -Has a previous history of paroxysmal atrial fibrillation, and is not on anticoagulation due to past history of GI bleeding. She had a 6-hour episode of atrial fibrillation the a.m. of 08/24/2022, without recurrence, and has been back on her metoprolol without missing any doses recently (several doses held earlier in the hospital stay due to low blood pressure) -Patient's mental status certainly much improved. -She remains afebrile. Blood cultures drawn at this institution on 08/24/2022 negative, as well as negative cultures on 08/18/2022. -With only having 1 out of 2 blood cultures abnormal on presentation to [facility] for MRSA, I am not quite convinced that we need to be too aggressive with proceeding with a JAY given her tenuous respiratory status, but the benefits and risk of this will continue to be weighed daily. -Most prudent course of action may be to consider 6 weeks of empiric antibiotics as even if the JAY is negative , she is still had considerable risk. -The patient's. Hospital dose of furosemide 40 mg p.o. daily has been resumed as of 08/27/2022. Continue subcutaneous heparin for DVT prophylaxis. Case [facility] for the purpose of coordination of care I spent a total of 20 minutes on the date of service in preparation, delivery, and documentation of the care provided to this patient, excluding any time spent in the performance of separately billed services. Admission and Anticipated Discharge Date Admission Date: August 18, 2022 Subjective Patient seen in cardiology follow-up. Overall, patient still trends toward improvement. Her left leg pain which has been severe 2 days ago is well controlled at present. Currently she is on oxygen at 1 L/min by nasal cannula, with pulse oximetry 92%. She does have a coarse productive cough which she states is worse, but I think this is actually overall an improvement because I have felt like she has had secretions that she was not moving previously. Telemetry reveals sinus rhythm in the 70s without recurrence of atrial fibrillation. Physical Exam Constitutional: + ill appearing and + morbidly obese; no acute distress Respiratory: Auscultation: + diminished lung sounds (Decreased breath sounds in the bases); no crackles and no rales Cardiovascular: Rate/Rhythm: regular rate and regular rhythm Extremities: no edema Gastrointestinal (Abdomen): normal bowel sounds, soft, nontender, no hepatosplenomegaly Neurologic: PERRL, EOMI, accommodation nl, no face palsy, no dysarthria (Conversant, follows commands) Results & Data Vital Signs (Past 12 Hours) Vital Signs Temp Pulse Pulse Resp BP Pulse Ox O2 Del Method 08/26/22 12:15 36.8 C 77 19 116/58 L 92 Nasal Cannula 08/26/22 07:54 36.7 C 74 19 125/63 92 Nasal Cannula 08/26/22 07:40 72 08/26/22 03:54 36.9 C 77 22 142/55 H 94 Nasal Cannula O2 Flow Rate 08/26/22 12:15 1 08/26/22 07:54 1.5 08/26/22 07:40 08/26/22 03:54 2
--- NOTE | 2022-08-26 17:14 | Hospitalist Progress Note ---
Date of Service August 26, 2022 Assessment & Plan (1) Sepsis due to pneumonia: (2) Staphylococcus aureus pneumonia: (3) Parainfluenza virus pneumonia: (4) S/P TAVR (transcatheter aortic valve replacement): (5) Morbid obesity: (6) Hypoxia: (7) COPD (chronic obstructive pulmonary disease): (8) CHF (congestive heart failure): (9) Dyslipidemia: (10) Paroxysmal atrial fibrillation: Plan 71-year-old female that was a direct transfer from [facility]. Patient was transferred to [facility] from local nursing facility after being found febrile with a temperature of 103 F. Patient was hypotensive at [facility] and started on Levophed. Chest x-ray there showed pulmonary congestion. Urinalysis at that time was negative. She was started on IV Vancomycin and cefepime there. Hypotension resolved on arrival and pressors were stopped. Septic shock secondary to MRSA pna, MRSA bacteremia +parainfluenza infection hx of bioprosthetic valve WBC 13.64, down from what it was at [facility] febrile 103 F there; afebrile at [facility] [address] CXR mild cardiomegaly Chest CT [facility] blood cultures positive - 1 cultx positive for MRSA Vanco and Cefepime started and continued. Cefepime now stopped. Blood cultures obtained here (08/18) and negative Sputum cultx (08/18) positive for MRSA Biofire + for parainfluenza Lactate normal 1.[address] chest scan is abnormal and per ICU repeat 6-8 weeks time to determine resolution 08/22 Pt not clinically improving - obtained CXR, ABG, pulmonary medicine consulted CT chest 08/18/2022ersonally reviewed by business continuity specialist: Multinodular opacities appreciated bilaterally especially in the right upper right lower and left lower lobe. CT chest findings from outside the facility has limited images. Based on the limited images it seems that the patient most likely had septic emboli. 08/22 CXR w/ pulm. edema and lasix given - closely followed by cardiology as well Repeat blood cultx (08/24/2022) negative Given history of TAVR, bacteremia, echo ordered LV is normal in size. Moderate concentric LVH. LV wall motion is normal. EF 65 to 70%. Grade 1 diastolic dysfunction. There is a bioprosthetic aortic valve. Prosthetic valve gradients have points of normal and slightly increased from prior study of March 2020. There is mild thickening of the posterior mitral valve leaflet similar to prior study in March 2022. Tricuspid valve is not well visualized. Cardiology consulted, however, patient is still requiring oxygen and doesn't appear stable enough for JAY which is currently being deferred. CKD Stage III: Creatinine 1.5 today Paroxysmal atrial fibrillation: Takes Metoprolol and Amiodarone; continue as per cardiology Not anticoagulated due to history of GI bleeding Chronic diastolic CHF due to valvular disease: S/p TAVR: Echo 03/2022-EF > 70%, grade 1 diastolic dysfunction, normal gradient for bioprosthetic aortic valve Appeared euvolemic on admission, no clear fluid overload Continue Plavix, oral lasix Hypothyroidism: chronic, stable. Takes Synthroid; continue History of migraines: chronic, stable. Takes Topiramate; continue Sacral wound: Appears to be healing well WOCN consulted Disposition: PCP: Dr. Ramirez Code Status: Full Code VTE Prophylaxis: Heparin SQ DO Altagracia Najera Hospitalist Admission and Anticipated Discharge Date Admission Date: August 18, 2022 Subjective 71 yo F admitted for septic chock 2/2 MRSA bacteremia and parainfluenza pneumonia with MRSA reports persistent cough reports that she did poorly with PT Primary RN states that she told him not to tell anyone she actually did well because she doesn't want to continue with PT has not mobilized out of bed much-appears generally unmotivated. afebrile and tolerating PO Review of Systems Review of Systems: All systems were reviewed and negative except as indicated on HPI above. Physical Exam Physical Exam: CONSTITUTIONAL: morbid obesity, vitals as above, generally well-appearing, NAD EYES:normal conjunctivae, no scleral icterus ENT: external ear and nose normal, some dried blood under left nare that appears 2/2 nasal canula. NECK: trachea midline RESPIRATORY: clear to auscultation bilaterally, no crackles, rales or wheezes, normal respiratory effort CARDIOVASCULAR: regular rate and rhythm, S1 and 2 heard without murmurs, gallops or rubs, no JVD, no peripheral edema CHEST: inspection of chest was normal GASTROINTESTINAL: soft, nontender, ND, no guarding MUSCULOSKELETAL: generalized weakness with no gross focal deficit, head is normocephalic and atraumatic, neck supple, normal palpation of chest wall without tenderness SKIN: warm and dry NEUROLOGIC: CN 2-12 grossly intact, no sensory deficit, normal cognition, normal speech, no tremor PSYCHIATRIC: alert cooperative and oriented to person, place and time. Results & Data Results & Data Vital Signs (Past 12 Hours) Vital Signs Temp Pulse Pulse Resp BP Pulse Ox O2 Del Method 08/26/22 16:24 36.9 C 69 19 129/61 93 Nasal Cannula 08/26/22 12:15 36.8 C 77 19 116/58 L 92 Nasal Cannula 08/26/22 07:54 36.7 C 74 19 125/63 92 Nasal Cannula 08/26/22 07:40 72 O2 Flow Rate 08/26/22 16:24 1.0 08/26/22 12:15 1 08/26/22 07:54 1.5 08/26/22 07:40 Laboratory Results BMP 08/26/22 05:53 Creatinine 1.08 Medications Administered Current Inpatient Medications Acetaminophen (Acetaminophen 325 Mg Tab) 650 mg PO Q4H PRN PRN Reason: Pain or Fever Stop: 09/17/22 10:18 Last Admin: 08/24/22 23:27 Dose: 650 mg Al Hydrox/Mg Hydrox/Simethicone (Aluminum/Magnesium Susp 30 Ml Udc) 15 ml PO Q4H PRN PRN Reason: Dyspepsia Stop: 09/17/22 10:18 Albuterol (Albut/Ipratrop 3mg/0.5mg Neb 3 Ml Vial) 3 ml INH Q6H PRN; Protocol PRN Reason: Shortness Of Breath Or Wheezing Stop: 09/17/22 14:40 Amiodarone HCl (Amiodarone 200 Mg Tab) 200 mg PO QAM [facility] Stop: 09/23/22 06:39 Last Admin: 08/26/22 08:43 Dose: 200 mg Ascorbic Acid (Ascorbic Acid 500 Mg Tab) 250 mg PO DAILY@12 [facility] Stop: 09/17/22 11:59 Last Admin: 08/26/22 13:36 Dose: 250 mg Aspirin (Aspirin 81 Mg Chew) 81 mg PO DAILY [facility] Stop: 09/18/22 08:59 Last Admin: 08/26/22 08:43 Dose: 81 mg Clopidogrel Bisulfate (Clopidogrel Bisulfate 75 Mg Tab) 75 mg PO DAILY [facility] Stop: 09/18/22 08:59 Last Admin: 08/26/22 08:43 Dose: 75 mg Diclofenac Sodium (Diclofenac Sod 1% Gel 100 Gm Tube) 2 gm EXT QID PRN; Protocol PRN Reason: LLE pain Stop: 09/24/22 00:46 Last Admin: 08/26/22 08:44 Dose: 2 gm Famotidine (Famotidine 10 Mg Tablet) 10 mg PO DAILY [facility] Stop: 09/18/22 08:59 Last Admin: 08/26/22 08:43 Dose: 10 mg Ferrous Sulfate (Ferrous Sulfate 325 Mg Tab) 325 mg PO DAILY@12 [facility] Stop: 09/17/22 11:59 Last Admin: 08/26/22 13:36 Dose: 325 mg Fluticasone Furoate (Fluticasone Furoate 100mcg 14 Puffs/Inhaler) 1 puffs INH QAM [facility] Stop: 09/17/22 11:44 Last Admin: 08/26/22 08:44 Dose: 1 puffs Furosemide (Furosemide 40 Mg Tab) 40 mg PO QAM [facility] Stop: 09/26/22 08:59 Guaifenesin (Guaifenesin 600 Mg Tabcr) 600 mg PO Q12 [facility] Stop: 09/20/22 12:24 Last Admin: 08/26/22 08:43 Dose: 600 mg Heparin Sodium (Porcine) (Heparin Sod 5,000 Unit/0.5 Ml Vial) 5,000 units SQ Q8H [facility] Stop: 09/17/22 16:14 Last Admin: 08/26/22 08:43 Dose: 5,000 units Vancomycin HCl 750 mg/ Sodium (Chloride) 265 mls @ 200 mls/hr IV ONE ONE; Protocol Stop: 08/26/22 21:19 Ketoconazole (Ketoconazole 2% Cr 15 Gm Tube) 1 appln EXT BID PRN PRN Reason: Rash Stop: 08/28/22 11:14 Last Admin: 08/23/22 16:33 Dose: 1 appln Levothyroxine Sodium (Levothyroxine Sodium 25 Mcg Tablet) 25 mcg PO DAILYBB [facility] Stop: 09/18/22 06:29 Last Admin: 08/26/22 06:15 Dose: 25 mcg Magnesium Hydroxide (Magnesium Hydroxide Susp 30 Ml Udc) 30 ml PO Q12H PRN PRN Reason: Constipation Stop: 09/17/22 10:18 Magnesium Oxide (Magnesium Oxide 400 Mg Tab) 400 mg PO BID [facility] Stop: 09/17/22 20:59 Last Admin: 08/26/22 08:43 Dose: 400 mg Metoprolol Succinate (Metoprolol Succ 25mg Ext Rel Tab) 25 mg PO QAM [facility] Stop: 09/18/22 08:59 Last Admin: 08/26/22 08:43 Dose: 25 mg Miscellaneous Information (Vancomycin Consult Active) 1 each N/A UD PRN PRN Reason: Consult Stop: 09/17/22 12:44 Ondansetron HCl (Ondansetron Inj 2 Mg/Ml 2 Ml Vial) 4 mg IV Q6H PRN PRN Reason: Nausea Stop: 09/17/22 10:18 Last Admin: 08/19/22 21:32 Dose: 4 mg Pantoprazole Sodium (Pantoprazole 40 Mg Tab) 40 mg PO BID [facility] Stop: 09/17/22 20:59 Last Admin: 08/26/22 08:42 Dose: 40 mg Polyethylene Glycol (Polyethylene (Miralax) 17 Gm Pack) 17 gm PO DAILY PRN PRN Reason: Constipation Stop: 09/17/22 10:18 Simvastatin (Simvastatin 10 Mg Tab) 10 mg PO HS [facility] Stop: 09/17/22 20:59 Last Admin: 08/25/22 22:14 Dose: 10 mg Sodium Chloride (Sodium Chloride 0.65% Na Soln 45 Ml (Crum)) 2 sprays NA Q4H PRN PRN Reason: congestion Stop: 09/20/22 17:43 Topiramate (Topiramate 25 Mg Tab) 25 mg PO BID [facility] Stop: 09/17/22 20:59 Last Admin: 08/26/22 08:42 Dose: 25 mg Tramadol HCl (Tramadol Hcl 50 Mg Tablet) 25 - 50 mg PO Q4H PRN PRN Reason: Pain Stop: 09/23/22 23:41 Last Admin: 08/26/22 08:45 Dose: 50 mg (8) CHF (congestive heart failure) Heart failure chronicity: chronic
[2022-08-26] MEDS ORDERED: VANCOMYCIN HCL 750 MG in SODIUM CHLORIDE 0.9% 250 ML IV ONE (20:00)
[2022-08-26] MEDS: SIMVASTATIN 10 MG TAB PO SCH (20:43)
[2022-08-27] MEDS: HEPARIN SOD 5,000 UNIT/0.5 ML VIAL SQ SCH ×3 (00:11→16:21)
[2022-08-27] MEDS: ACETAMINOPHEN 325 MG TAB PO PRN (04:29)
[2022-08-27] MEDS: LEVOTHYROXINE SODIUM 25 MCG TABLET PO SCH (05:33)
[2022-08-27 06:46] LABS: Hematocrit (blood only) 33.7 % (37.0-47.0); Mean Corpuscular Hemoglobin 31.3 pg (25.0-34.0); Mean Corpuscular Hgb Conc 32.6 g/dL (32.0-36.0); Mean Platelet Volume 10.9 fL (9.4-12.4); Platelet Count 249 K/uL (130-400); RDW Coefficient of Variation 15.7 % (11.5-14.5); RDW Standard Deviation 55.3 fL (36.4-46.3); Red Blood Count 3.51 M/uL (4.20-5.40); White Blood Count 11.52 K/ul (4.8-10.8)
[2022-08-27 06:56] LABS: BUN Creatinine Ratio 17.3 (10-20); Calcium 9.1 mg/dl (8.6-10.3); Creatinine Clr Calc Pharmacy 67.7 ml/min; Est GFR (African American) 61.7 ml/min; Est GFR (Non-African American) 53.3 ml/min; Potassium 3.7 mmol/L (3.5-5.1)
[2022-08-27] MEDS: traMADol HCL 50 MG TABLET PO PRN (07:43)
--- NOTE | 2022-08-27 08:49 | Hospitalist Progress Note ---
Date of Service August 27, 2022 Assessment & Plan (1) Sepsis due to pneumonia: (2) Staphylococcus aureus pneumonia: (3) Parainfluenza virus pneumonia: (4) S/P TAVR (transcatheter aortic valve replacement): (5) Morbid obesity: (6) Hypoxia: (7) COPD (chronic obstructive pulmonary disease): (8) CHF (congestive heart failure): (9) Dyslipidemia: (10) Paroxysmal atrial fibrillation: (11) Osteoarthritis of left knee: Plan 71-year-old female that was a direct transfer from [facility]. Patient was transferred to [facility] from local nursing facility after being found febrile with a temperature of 103 F. Patient was hypotensive at [facility] and started on Levophed. Chest x-ray there showed pulmonary congestion. Urinalysis at that time was negative. She was started on IV Vancomycin and cefepime there. Hypotension resolved on arrival and pressors were stopped. Septic shock secondary to MRSA pna, MRSA bacteremia +parainfluenza infection hx of bioprosthetic valve WBC 13.64, down from what it was at [facility] febrile 103 F there; afebrile at [facility] CXR mild cardiomegaly Chest CT suggestive of RLL PNA at [facility] blood cultures positive - 1 cultx positive for MRSA Vanco and Cefepime started and continued. Cefepime now stopped. Blood cultures obtained here (08/18) and negative Sputum cultx (08/18) positive for MRSA Biofire + for parainfluenza Lactate normal 1.[address] chest scan is abnormal and per ICU repeat 6-8 weeks time to determine resolution 08/22 Pt not clinically improving - obtained CXR, ABG, pulmonary medicine consulted CT chest 08/18/2022ersonally reviewed by route supervisor: Multinodular opacities appreciated bilaterally especially in the right upper right lower and left lower lobe. CT chest findings from outside the facility has limited images. Based on the limited images it seems that the patient most likely had septic emboli. 08/22 CXR w/ pulm. edema and lasix given - closely followed by cardiology as well Repeat blood cultx (08/24/2022) negative Given history of TAVR, bacteremia, echo ordered LV is normal in size. Moderate concentric LVH. LV wall motion is normal. EF 65 to 70%. Grade 1 diastolic dysfunction. There is a bioprosthetic aortic valve. Prosthetic valve gradients have points of normal and slightly increased from prior study of March 2020. There is mild thickening of the posterior mitral valve leaflet similar to prior study in March 2022. Tricuspid valve is not well visualized. Cardiology consulted, however, patient is still requiring oxygen and doesn't appear stable enough for JAY which is currently being deferred. Will discuss definitive antibiotic regimen wtih ID when they are available after the weekend. CKD Stage III: Creatinine 1.5 today Paroxysmal atrial fibrillation: Takes Metoprolol and Amiodarone; continue as per cardiology Not anticoagulated due to history of GI bleeding Chronic diastolic CHF due to valvular disease: S/p TAVR: Echo 03/2022-EF > 70%, grade 1 diastolic dysfunction, normal gradient for bioprosthetic aortic valve Appeared euvolemic on admission, no clear fluid overload Continue Plavix, oral lasix Hypothyroidism: chronic, stable. Takes Synthroid; continue History of migraines: chronic, stable. Takes Topiramate; continue Sacral wound: Appears to be healing well WOCN consulted Disposition: PCP: Dr. Ramirez Code Status: Full Code VTE Prophylaxis: Heparin SQ DO [facility] Admission and Anticipated Discharge Date Admission Date: August 18, 2022 Subjective 71 yo F admitted for septic chock 2/2 MRSA bacteremia and parainfluenza pneumonia with MRSA reports persistent cough states her left knee is not moving well 2/2 pain reports using icy hot at home to treat this effectively when it occurs. tolerating PO appears clinically improved. Review of Systems Review of Systems: All systems were reviewed and negative except as indicated on HPI above. Physical Exam Physical Exam: CONSTITUTIONAL: morbid obesity, vitals as above, generally well-appearing, NAD EYES:normal conjunctivae, no scleral icterus ENT: external ear and nose normal, some dried blood under left nare that appears 2/2 nasal canula. NECK: trachea midline RESPIRATORY: clear to auscultation bilaterally, no crackles, rales or wheezes, normal respiratory effort CARDIOVASCULAR: regular rate and rhythm, S1 and 2 heard without murmurs, gallops or rubs, no JVD, no peripheral edema CHEST: inspection of chest was normal GASTROINTESTINAL: soft, nontender, ND, no guarding MUSCULOSKELETAL: generalized weakness with no gross focal deficit, head is normocephalic and atraumatic, neck supple, normal palpation of chest wall without tenderness SKIN: warm and dry NEUROLOGIC: CN 2-12 grossly intact, no sensory deficit, normal cognition, normal speech, no tremor PSYCHIATRIC: alert cooperative and oriented to person, place and time. Results & Data Results & Data Vital Signs (Past 12 Hours) Vital Signs Temp Pulse Pulse Resp BP Pulse Ox O2 Del Method 08/27/22 07:00 73 08/27/22 06:55 36.6 C 75 19 101/65 93 Nasal Cannula 08/27/22 04:47 36.9 C 74 16 120/53 L 94 Nasal Cannula 08/27/22 00:00 72 08/26/22 23:00 36.9 C 76 18 122/62 94 Nasal Cannula O2 Flow Rate 08/27/22 07:00 08/27/22 06:55 1.0 08/27/22 04:47 2 08/27/22 00:00 08/26/22 23:00 0.5 Laboratory Results Short CBC 08/27/22 Range/Units 06:02 WBC 11.52 H (4.8-10.8) K/ul Hgb 11.0 L (12.0-16.0) g/dl Hct 33.7 L (37.0-47.0) % Plt Count 249 (130-400) K/uL BMP 08/27/22 06:02 Sodium 137 Potassium 3.7 Chloride 103 Carbon Dioxide 26 BUN 18 Creatinine 1.04 Glucose 95 Calcium 9.1 Medications Administered Current Inpatient Medications Acetaminophen (Acetaminophen 325 Mg Tab) 650 mg PO Q4H PRN PRN Reason: Pain or Fever Stop: 09/17/22 10:18 Last Admin: 08/27/22 04:29 Dose: 650 mg Al Hydrox/Mg Hydrox/Simethicone (Aluminum/Magnesium Susp 30 Ml Udc) 15 ml PO Q4H PRN PRN Reason: Dyspepsia Stop: 09/17/22 10:18 Albuterol (Albut/Ipratrop 3mg/0.5mg Neb 3 Ml Vial) 3 ml INH Q6H PRN; Protocol PRN Reason: Shortness Of Breath Or Wheezing Stop: 09/17/22 14:40 Amiodarone HCl (Amiodarone 200 Mg Tab) 200 mg PO QAM [facility] Stop: 09/23/22 06:39 Last Admin: 08/26/22 08:43 Dose: 200 mg Ascorbic Acid (Ascorbic Acid 500 Mg Tab) 250 mg PO DAILY@12 [facility] Stop: 09/17/22 11:59 Last Admin: 08/26/22 13:36 Dose: 250 mg Aspirin (Aspirin 81 Mg Chew) 81 mg PO DAILY [facility] Stop: 09/18/22 08:59 Last Admin: 08/26/22 08:43 Dose: 81 mg Clopidogrel Bisulfate (Clopidogrel Bisulfate 75 Mg Tab) 75 mg PO DAILY [facility] Stop: 09/18/22 08:59 Last Admin: 08/26/22 08:43 Dose: 75 mg Diclofenac Sodium (Diclofenac Sod 1% Gel 100 Gm Tube) 2 gm EXT QID PRN; Protocol PRN Reason: LLE pain Stop: 09/24/22 00:46 Last Admin: 08/26/22 08:44 Dose: 2 gm Famotidine (Famotidine 10 Mg Tablet) 10 mg PO DAILY [facility] Stop: 09/18/22 08:59 Last Admin: 08/26/22 08:43 Dose: 10 mg Ferrous Sulfate (Ferrous Sulfate 325 Mg Tab) 325 mg PO DAILY@12 [facility] Stop: 09/17/22 11:59 Last Admin: 08/26/22 13:36 Dose: 325 mg Fluticasone Furoate (Fluticasone Furoate 100mcg 14 Puffs/Inhaler) 1 puffs INH QAM [facility] Stop: 09/17/22 11:44 Last Admin: 08/26/22 08:44 Dose: 1 puffs Furosemide (Furosemide 40 Mg Tab) 40 mg PO QAM [facility] Stop: 09/26/22 08:59 Guaifenesin (Guaifenesin 600 Mg Tabcr) 600 mg PO Q12 [facility] Stop: 09/20/22 12:24 Last Admin: 08/26/22 20:43 Dose: 600 mg Heparin Sodium (Porcine) (Heparin Sod 5,000 Unit/0.5 Ml Vial) 5,000 units SQ Q8H [facility] Stop: 09/17/22 16:14 Last Admin: 08/27/22 07:44 Dose: 5,000 units Ketoconazole (Ketoconazole 2% Cr 15 Gm Tube) 1 appln EXT BID PRN PRN Reason: Rash Stop: 08/28/22 11:14 Last Admin: 08/23/22 16:33 Dose: 1 appln Levothyroxine Sodium (Levothyroxine Sodium 25 Mcg Tablet) 25 mcg PO DAILYBB [facility] Stop: 09/18/22 06:29 Last Admin: 08/27/22 05:33 Dose: 25 mcg Magnesium Hydroxide (Magnesium Hydroxide Susp 30 Ml Udc) 30 ml PO Q12H PRN PRN Reason: Constipation Stop: 09/17/22 10:18 Magnesium Oxide (Magnesium Oxide 400 Mg Tab) 400 mg PO BID [facility] Stop: 09/17/22 20:59 Last Admin: 08/26/22 20:43 Dose: 400 mg Metoprolol Succinate (Metoprolol Succ 25mg Ext Rel Tab) 25 mg PO QAM [facility] Stop: 09/18/22 08:59 Last Admin: 08/26/22 08:43 Dose: 25 mg Miscellaneous Information (Vancomycin Consult Active) 1 each N/A UD PRN PRN Reason: Consult Stop: 09/17/22 12:44 Ondansetron HCl (Ondansetron Inj 2 Mg/Ml 2 Ml Vial) 4 mg IV Q6H PRN PRN Reason: Nausea Stop: 09/17/22 10:18 Last Admin: 08/19/22 21:32 Dose: 4 mg Pantoprazole Sodium (Pantoprazole 40 Mg Tab) 40 mg PO BID [facility] Stop: 09/17/22 20:59 Last Admin: 08/26/22 20:43 Dose: 40 mg Polyethylene Glycol (Polyethylene (Miralax) 17 Gm Pack) 17 gm PO DAILY PRN PRN Reason: Constipation Stop: 09/17/22 10:18 Simvastatin (Simvastatin 10 Mg Tab) 10 mg PO HS [facility] Stop: 09/17/22 20:59 Last Admin: 08/26/22 20:43 Dose: 10 mg Sodium Chloride (Sodium Chloride 0.65% Na Soln 45 Ml ([place])) 2 sprays NA Q4H PRN PRN Reason: congestion Stop: 09/20/22 17:43 Topiramate (Topiramate 25 Mg Tab) 25 mg PO BID [facility] Stop: 09/17/22 20:59 Last Admin: 08/26/22 20:43 Dose: 25 mg Tramadol HCl (Tramadol Hcl 50 Mg Tablet) 25 - 50 mg PO Q4H PRN PRN Reason: Pain Stop: 09/23/22 23:41 Last Admin: 08/27/22 07:43 Dose: 50 mg (8) CHF (congestive heart failure) Heart failure chronicity: chronic
[2022-08-27] MEDS ORDERED: VANCOMYCIN HCL 750 MG in SODIUM CHLORIDE 0.9% 250 ML IV STA (09:18)
[2022-08-27] MEDS: FAMOTIDINE 10 MG TABLET PO SCH (09:33)
[2022-08-27] MEDS: ASPIRIN 81 MG CHEW PO SCH (09:33)
[2022-08-27] MEDS: AMIODARONE 200 MG TAB PO SCH (09:33)
[2022-08-27] MEDS: CLOPIDOGREL BISULFATE 75 MG TAB PO SCH (09:33)
[2022-08-27] MEDS: FLUTICASONE FUROATE 100MCG 14 PUFFS/INHALER INH SCH (09:34)
[2022-08-27] MEDS: PANTOprazole 40 MG TAB PO SCH ×2 (09:34→21:07)
[2022-08-27] MEDS: FUROSEMIDE 40 MG TAB PO SCH (09:34)
[2022-08-27] MEDS: METOPROLOL SUCC 25MG EXT REL TAB PO SCH (09:34)
[2022-08-27] MEDS: MAGNESIUM OXIDE 400 MG TAB PO SCH ×2 (10:13→21:07)
[2022-08-27] MEDS: guaiFENesin 600 MG TABCR PO SCH ×2 (10:13→21:08)
[2022-08-27] MEDS: TOPIRAMATE 25 MG TAB PO SCH ×2 (10:14→21:08)
--- NOTE | 2022-08-27 11:15 | Pharmacy Report ---
Pharmacy PK ABX Note - Date of Service August 27, 2022 - Assessment and Plan Assessment 08/27: Random level this AM returned at 15.0 mcg/mL which is therapeutic. Renal fxn is stable. White count down to 11.5k. Today is Day #10 of Vancomycin since last negative blood cultures on 08/18/22. Discussed with hospitalist and no plans for a JAY anymore. Will await ID input on Monday (08/29/22) regarding duration of Vancomycin. Patient only met 2 minor Harrison criteria based upon presentation. If the plan is to empirically treat for prosthetic valve endocarditis, then do not believe synergy with gentamicin/rifampin is necessary given Blood cultures cleared with vancomycin. Also, consideration for daptomycin 8-10 mg/kg IV q24h would be reasonable for ease of outpatient administration. 08/26: Random level this AM returned at 20.1 mcg/mL. According to AUC/SATYA calculation software, this level is therapeutic. However, there is some concern that level could quickly become supratherapeutic for the following reasons: elevated BMI and risk for accumulation which was seen with a previous regimen and random level being drawn only after 2 doses of current regimen which does not indicate steady state. Renal fxn appears stable. Over the last 5 days, serum creatinine has toggled between 0.98-1.13 mg/dL. Therefore, planning on reducing the vancomycin dose today to provide 5.8 mg/kg IV every 12 hours x 2 doses. Will recheck a random level in the AM. Goal trough is approximately 15 mcg/mL. Did at tempt to have turbidity method performed on sputum culture to confirm a true Vanc SATYA of 2 but sample has been disposed after a weeks time. 08/25: JAY recommended, but respiratory compromise is still precluding it. Random vancomycin level this AM likely therapeutic, although changing renal function makes accurate estimation of AUC problematic. Patient does seem to be clearing vancomycin and had 1550 mL of charted UOP yesterday, with 550 mL thus far today. SCr is also mostly stable, only rising from 1.08 to 1.13 mg/dL over the last 24 hours. Will tentatively schedule two low doses of 7.8 mg/kg of vancomycin q12 x2 doses today. Random level with AM labs tomorrow. 08/24: Random vancomycin level this AM associated with a supratherapeutic AUC, despite level 48 hours earlier on same dose indicating a therapeutic AUC. SCr also beginning to rise again. Suspect reduced renal clearance is contributing to increase. Level decreased from 26.2 to 21.8 mcg/mL over 6.72 hours - equates to a t1/2 of 25 hr. Assuming stable renal function (which cannot be assumed), it's estimated that the level would fall to 15 mcg/mL at around 0200. Due to severity of illness (MRSA bacteremia), will therefore provide a small supplemental dose of vancomycin tonight as level may be subtherapeutic if hold off further vancomycin until tomorrow AM. Will obtain repeat random level with AM labs tomorrow. Plan Vancomycin * Current regimen: 750 mg IV every 12 hours * Random level obtained 08/27/22 resulted as 15.0 mcg/mL. This is predicted to achieve target AUC/SATYA of 400-600 mg/L.hr. * Predicted steady state AUC/SATYA is 411 mg/L.hr. * Continue 750 mg IV every 12 hours * Repeat random level ordered for: 08/29/22 Pharmacy will continue to follow and will adjust dose/frequency as necessary. Thank you. Pharmacy has transitioned to AUC monitoring for vancomycin. AUC/SATYA is the preferred PK/PD target and is associated with decreased risk of nephrotoxicity compared to traditional trough targets.
--- NOTE | 2022-08-27 11:41 | Cardiology Progress Note ---
Date of Service August 27, 2022 Assessment & Plan (1) Staphylococcus aureus pneumonia: (2) Staphylococcus aureus bacteremia with sepsis: (3) Parainfluenza virus pneumonia: (4) Open wound of buttock: Plan: - Patient with history of an open wound to the buttock. This has healed since her presentation 2 months ago. This history of course would increase her risk for systemic infection (5) S/P TAVR (transcatheter aortic valve replacement): (6) Atrial fibrillation: Plan - History of transcatheter aortic valve [place] [facility] Transthoracic echocardiogram this admission technically limited due to patient's body habitus with hyperdynamic left ventricular systolic function, trans aortic valve prosthetic velocities slightly higher than the previous, tricuspid valve inadequately visualized. -No obstructive CAD noted on pre-TAVR coronary angiography 03/20/2019 ([facility]) -Patient with multifactorial respiratory insufficiency with Staph aureus pneumonia, parainfluenza virus, underlying diastolic dysfunction -Pulm status appears improved today. Hold off on Lasix for today. -Leg discomfort improved. -Has a previous history of paroxysmal atrial fibrillation, and is not on anticoagulation due to past history of GI bleeding. She had a 6-hour episode of atrial fibrillation the a.m. of 08/24/2022, without recurrence, and has been back on her metoprolol without missing any doses recently (several doses held earlier in the hospital stay due to low blood pressure) -Patient's mental status certainly much improved. -She remains afebrile. Blood cultures drawn at this institution on 08/24/2022 negative, as well as negative cultures on 08/18/2022. -With only having 1 out of 2 blood cultures abnormal on presentation to [facility] for MRSA, I am not quite convinced that we need to be too aggressive with proceeding with a JAY given her tenuous respiratory status, but the benefits and risk of this will continue to be weighed daily. -Most prudent course of action may be to consider 6 weeks of empiric antibiotics as even if the JAY is negative , she is still had considerable risk. -The patient's. Hospital dose of furosemide 40 mg p.o. daily has been resumed as of 08/27/2022. Continue subcutaneous heparin for DVT prophylaxis. 08/27/2022 Little change to above still with severe rhonchorous cough and pulmonary limitations to further investigation via JAY. Currently in sinus rhythm Patient on appropriate antibiotic therapies Oral furosemide resumed Would recommend EKG in a.m. 1 week from last exam Begin mobilization if possible I spent a total of 20 minutes on the date of service in preparation, delivery, and documentation of the care provided to this patient, excluding any time spent in the performance of separately billed services. Admission and Anticipated Discharge Date Admission Date: August 18, 2022 Subjective Patient seen and examined, chart, medications, telemetry reviewed Still with coarse rhonchorous cough and oxygen demands difficulty speaking at times due to cough No worsening edema no chest discomfort no other arrhythmias on telemetry Review of Systems Review of Systems: All systems reviewed & are unremarkable except as noted in Subjective Physical Exam Constitutional: + morbidly obese; no acute distress Eyes: PERRL, conjunctivae normal, anicteric sclerae Neck: trachea midline, no thyromegaly Respiratory: + cough Auscultation: + rhonchi (Right greater than left) Cardiovascular: Rate/Rhythm: regular rate and regular rhythm Heart Sounds: + murmur (Grade 2 or 6 systolic) Vessels: no JVD Extremities: + edema (1+) Results & Data Vital Signs (Past 12 Hours) Vital Signs Temp Pulse Pulse Resp BP Pulse Ox O2 Del Method 08/27/22 08:00 Nasal Cannula 08/27/22 07:00 73 08/27/22 06:55 36.6 C 75 19 101/65 93 Nasal Cannula 08/27/22 04:47 36.9 C 74 16 120/53 L 94 Nasal Cannula 08/27/22 00:00 72 O2 Flow Rate 08/27/22 08:00 2 08/27/22 07:00 08/27/22 06:55 1.0 08/27/22 04:47 2 08/27/22 00:00 Laboratory Results Laboratory Results - last 24 hr 08/27/22 08/27/22 08/27/22 06:02 06:02 06:02 WBC 11.52 H RBC 3.51 L Hgb 11.0 L Hct 33.7 L MCV 96.0 MCH 31.3 MCHC 32.6 RDW Std Deviation 55.3 H RDW Coeff of Moni 15.7 H Plt Count 249 MPV 10.9 Sodium 137 Potassium 3.7 Chloride 103 Carbon Dioxide 26 Anion Gap 8 BUN 18 Creatinine 1.04 Est Cr Clr Drug Dosing 67.7 Est GFR ( Amer) 61.7 Est GFR (Non-Af Amer) 53.3 BUN/Creatinine Ratio 17.3 Glucose 95 Calcium 9.1 Random Vancomycin 15.0
[2022-08-27] MEDS: ASCORBIC ACID 500 MG TAB PO SCH (11:51)
[2022-08-27] MEDS: FERROUS SULFATE 325 MG TAB PO SCH (11:51)
[2022-08-27] MEDS: ACETAMINOPHEN 500 MG TAB PO SCH (17:54)
[2022-08-27] MEDS: VANCOMYCIN HCL 750 MG in SODIUM CHLORIDE 0.9% 250 ML IV SCH (21:06)
[2022-08-27] MEDS: SIMVASTATIN 10 MG TAB PO SCH (21:09)
[2022-08-27] MEDS: TROLAMINE SALICYLATE 10% CRM 255 APPLN/85 GM TUBE EXT SCH (21:11)
[2022-08-28] MEDS: HEPARIN SOD 5,000 UNIT/0.5 ML VIAL SQ SCH ×3 (00:11→16:49)
[2022-08-28] MEDS: ACETAMINOPHEN 500 MG TAB PO SCH ×3 (01:53→16:53)
[2022-08-28] MEDS: LEVOTHYROXINE SODIUM 25 MCG TABLET PO SCH (06:22)
[2022-08-28] MEDS: guaiFENesin 600 MG TABCR PO SCH ×2 (09:21→21:42)
[2022-08-28] MEDS: TOPIRAMATE 25 MG TAB PO SCH ×2 (09:21→21:43)
[2022-08-28] MEDS: FAMOTIDINE 10 MG TABLET PO SCH (09:21)
[2022-08-28] MEDS: PANTOprazole 40 MG TAB PO SCH ×2 (09:21→21:44)
[2022-08-28] MEDS: MAGNESIUM OXIDE 400 MG TAB PO SCH ×2 (09:21→21:42)
[2022-08-28] MEDS: ASPIRIN 81 MG CHEW PO SCH (09:21)
[2022-08-28] MEDS: CLOPIDOGREL BISULFATE 75 MG TAB PO SCH (09:22)
[2022-08-28] MEDS: TROLAMINE SALICYLATE 10% CRM 255 APPLN/85 GM TUBE EXT SCH ×2 (09:23→21:44)
[2022-08-28] MEDS: FLUTICASONE FUROATE 100MCG 14 PUFFS/INHALER INH SCH ×2 (09:24→09:31)
[2022-08-28] MEDS: AMIODARONE 200 MG TAB PO SCH (09:28)
[2022-08-28] MEDS: FUROSEMIDE 40 MG TAB PO SCH (09:28)
[2022-08-28] MEDS: METOPROLOL SUCC 25MG EXT REL TAB PO SCH (09:28)
[2022-08-28] MEDS: VANCOMYCIN HCL 750 MG in SODIUM CHLORIDE 0.9% 250 ML IV SCH ×2 (09:30→21:37)
--- NOTE | 2022-08-28 09:39 | Hospitalist Progress Note ---
Date of Service August 28, 2022 Assessment & Plan (1) Sepsis due to pneumonia: (2) Staphylococcus aureus pneumonia: (3) Parainfluenza virus pneumonia: (4) S/P TAVR (transcatheter aortic valve replacement): (5) Osteoarthritis of left knee: (6) Morbid obesity: (7) Hypoxia: (8) COPD (chronic obstructive pulmonary disease): (9) CHF (congestive heart failure): (10) Dyslipidemia: (11) Paroxysmal atrial fibrillation: Plan 71-year-old female that was a direct transfer from [facility]. Patient was transferred to [facility] from local nursing facility after being found febrile with a temperature of 103 F. Patient was hypotensive at [facility] and started on Levophed. Chest x-ray there showed pulmonary congestion. Urinalysis at that time was negative. She was started on IV Vancomycin and cefepime there. Hypotension resolved on arrival and pressors were stopped. Septic shock secondary to MRSA pna, MRSA bacteremia +parainfluenza infection hx of bioprosthetic valve WBC 13.64, down from what it was at [facility] febrile 103 F there; afebrile at [facility] CXR mild cardiomegaly Chest CT suggestive of RLL PNA at [facility] blood cultures positive - 1 cultx positive for MRSA Vanco and Cefepime started and continued. Cefepime now stopped. continues on vancomycin monotherapy. Blood cultures obtained here (08/18) and negative Sputum cultx (08/18) positive for MRSA Biofire + for parainfluenza Lactate normal 1.[address] chest scan is abnormal and per ICU repeat 6-8 weeks time to determine resolution 08/22 Pt not clinically improving - obtained CXR, ABG, pulmonary medicine consulted CT chest 08/18/2022ersonally reviewed by rn surgical pcu: Multinodular opacities appreciated bilaterally especially in the right upper right lower and left lower lobe. CT chest findings from outside the facility has limited images. Based on the limited images it seems that the patient most likely had septic emboli. 08/22 CXR w/ pulm. edema and lasix given - closely followed by cardiology as well Repeat blood cultx (08/24/2022) negative Given history of TAVR, bacteremia, echo ordered LV is normal in size. Moderate concentric LVH. LV wall motion is normal. EF 65 to 70%. Grade 1 diastolic dysfunction. There is a bioprosthetic aortic valve. Prosthetic valve gradients have points of normal and slightly increased from prior study of March 2020. There is mild thickening of the posterior mitral valve leaflet similar to prior study in March 2022. Tricuspid valve is not well visualized. Cardiology consulted, however, patient is still requiring oxygen and doesn't appear stable enough for JAY which is currently being deferred. Will discuss definitive antibiotic regimen wtih ID when they are available after the weekend. Left knee OA Flare: Left knee warm, swollen and limited ROM with pain that is uncontrolled with Tylenol, tramadol and trolamine. 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 CKD Stage III: Creatinine 1.5 today Paroxysmal atrial fibrillation: Takes Metoprolol and Amiodarone; continue as per cardiology Not anticoagulated due to history of GI bleeding Chronic diastolic CHF due to valvular disease: S/p TAVR: Echo 03/2022-EF > 70%, grade 1 diastolic dysfunction, normal gradient for bioprosthetic aortic valve Appeared euvolemic on admission, no clear fluid overload Continue Plavix, oral lasix Hypothyroidism: chronic, stable. Takes Synthroid; continue History of migraines: chronic, stable. Takes Topiramate; continue Sacral wound: Appears to be healing well WOCN consulted Disposition: PCP: Dr. Ramirez Code Status: Full Code VTE Prophylaxis: Heparin SQ DO Altagracia Najera Hospitalist Admission and Anticipated Discharge Date Admission Date: August 18, 2022 Subjective 71 yo F admitted for septic chock 2/2 MRSA bacteremia and parainfluenza pneumonia with MRSA reports persistent cough and feels "fine" WRT her lungs Today she is in agonizing pain 2/2 her left leg States that her knee is painful as of an hour ago and this morning "I was totally fine" She gets angry with asking her to consider getting out of bed for dinner saying "Oh yeah right like Im going to do that!" States the ointment we are using (trolamine) is not helping Refuses to bring in her BioFreeze from home which she states works for her pain when she is home Sister at bedside and reports they always deal with knee pain because she is "bone on bone." Review of Systems Review of Systems: All systems were reviewed and negative except as indicated on HPI above. Physical Exam Physical Exam: CONSTITUTIONAL: morbid obesity, vitals as above, +moderate distress. EYES: normal conjunctivae, no scleral icterus ENT: external ear and nose normal, some dried blood under left nare that appears 2/2 nasal canula. NECK: trachea midline RESPIRATORY: clear to auscultation bilaterally, no crackles, rales or wheezes, normal respiratory effort CARDIOVASCULAR: regular rate and rhythm, S1 and 2 heard without murmurs, gallops or rubs, no JVD, no peripheral edema CHEST: inspection of chest was normal GASTROINTESTINAL: soft, nontender, ND, no guarding MUSCULOSKELETAL: generalized weakness with no gross focal deficit, head is normocephalic and atraumatic, neck supple, normal palpation of chest wall without tenderness L knee>R knee yesterday was more swollen and warm. Today she refuses to let me even touch her knees. SKIN: warm and dry NEUROLOGIC: CN 2-12 grossly intact, no sensory deficit, normal cognition, normal speech, no tremor PSYCHIATRIC: alert cooperative and oriented to person, place and time. Results & Data Results & Data Vital Signs (Past 12 Hours) Vital Signs Temp Pulse Resp BP Pulse Ox O2 Del Method 08/28/22 09:27 77 135/66 95 Room Air 08/28/22 07:35 36.4 C L 75 18 93/59 L 95 Room Air Medications Administered Current Inpatient Medications Acetaminophen (Acetaminophen 500 Mg Tab) 1,000 mg PO Q8H [facility] Stop: 09/26/22 17:59 Last Admin: 08/28/22 09:22 Dose: 1,000 mg Al Hydrox/Mg Hydrox/Simethicone (Aluminum/Magnesium Susp 30 Ml Udc) 15 ml PO Q4H PRN PRN Reason: Dyspepsia Stop: 09/17/22 10:18 Albuterol (Albut/Ipratrop 3mg/0.5mg Neb 3 Ml Vial) 3 ml INH Q6H PRN; Protocol PRN Reason: Shortness Of Breath Or Wheezing Stop: 09/17/22 14:40 Amiodarone HCl (Amiodarone 200 Mg Tab) 200 mg PO QAM [facility] Stop: 09/23/22 06:39 Last Admin: 08/28/22 09:28 Dose: 200 mg Ascorbic Acid (Ascorbic Acid 500 Mg Tab) 250 mg PO DAILY@12 [facility] Stop: 09/17/22 11:59 Last Admin: 08/27/22 11:51 Dose: 250 mg Aspirin (Aspirin 81 Mg Chew) 81 mg PO DAILY [facility] Stop: 09/18/22 08:59 Last Admin: 08/28/22 09:21 Dose: 81 mg Clopidogrel Bisulfate (Clopidogrel Bisulfate 75 Mg Tab) 75 mg PO DAILY [facility] Stop: 09/18/22 08:59 Last Admin: 08/28/22 09:22 Dose: 75 mg Diclofenac Sodium (Diclofenac Sod 1% Gel 100 Gm Tube) 2 gm EXT QID PRN; Protocol PRN Reason: LLE pain Stop: 09/24/22 00:46 Last Admin: 08/26/22 08:44 Dose: 2 gm Famotidine (Famotidine 10 Mg Tablet) 10 mg PO DAILY [facility] Stop: 09/18/22 08:59 Last Admin: 08/28/22 09:21 Dose: 10 mg Ferrous Sulfate (Ferrous Sulfate 325 Mg Tab) 325 mg PO DAILY@12 [facility] Stop: 09/17/22 11:59 Last Admin: 08/27/22 11:51 Dose: 325 mg Fluticasone Furoate (Fluticasone Furoate 100mcg 14 Puffs/Inhaler) 1 puffs INH Q AM [facility] Stop: 09/17/22 11:44 Last Admin: 08/28/22 09:31 Dose: Not Given Furosemide (Furosemide 40 Mg Tab) 40 mg PO QAM [facility] Stop: 09/26/22 08:59 Last Admin: 08/28/22 09:28 Dose: 40 mg Guaifenesin (Guaifenesin 600 Mg Tabcr) 600 mg PO Q12 [facility] Stop: 09/20/22 12:24 Last Admin: 08/28/22 09:21 Dose: 600 mg Heparin Sodium (Porcine) (Heparin Sod 5,000 Unit/0.5 Ml Vial) 5,000 units SQ Q8H [facility] Stop: 09/17/22 16:14 Last Admin: 08/28/22 09:22 Dose: 5,000 units Vancomycin HCl 750 mg/ Sodium (Chloride) 265 mls @ 200 mls/hr IV Q12H [facility]; Protocol Stop: 09/10/22 19:59 Last Admin: 08/28/22 09:30 Dose: 200 mls/hr Ketoconazole (Ketoconazole 2% Cr 15 Gm Tube) 1 appln EXT BID PRN PRN Reason: Rash Stop: 08/28/22 11:14 Last Admin: 08/23/22 16:33 Dose: 1 appln Levothyroxine Sodium (Levothyroxine Sodium 25 Mcg Tablet) 25 mcg PO DAILYBB [facility] Stop: 09/18/22 06:29 Last Admin: 08/28/22 06:22 Dose: 25 mcg Magnesium Hydroxide (Magnesium Hydroxide Susp 30 Ml Udc) 30 ml PO Q12H PRN PRN Reason: Constipation Stop: 09/17/22 10:18 Magnesium Oxide (Magnesium Oxide 400 Mg Tab) 400 mg PO BID [facility] Stop: 09/17/22 20:59 Last Admin: 08/28/22 09:21 Dose: 400 mg Metoprolol Succinate (Metoprolol Succ 25mg Ext Rel Tab) 25 mg PO QAM [facility] Stop: 09/18/22 08:59 Last Admin: 08/28/22 09:28 Dose: 25 mg Miscellaneous Information (Vancomycin Consult Active) 1 each N/A UD PRN PRN Reason: Consult Stop: 09/17/22 12:44 Ondansetron HCl (Ondansetron Inj 2 Mg/Ml 2 Ml Vial) 4 mg IV Q6H PRN PRN Reason: Nausea Stop: 09/17/22 10:18 Last Admin: 08/19/22 21:32 Dose: 4 mg Pantoprazole Sodium (Pantoprazole 40 Mg Tab) 40 mg PO BID [facility] Stop: 09/17/22 20:59 Last Admin: 08/28/22 09:21 Dose: 40 mg Polyethylene Glycol (Polyethylene (Miralax) 17 Gm Pack) 17 gm PO DAILY PRN PRN Reason: Constipation Stop: 09/17/22 10:18 Simvastatin (Simvastatin 10 Mg Tab) 10 mg PO HS [facility] Stop: 09/17/22 20:59 Last Admin: 08/27/22 21:09 Dose: 10 mg Sodium Chloride (Sodium Chloride 0.65% Na Soln 45 Ml ([place])) 2 sprays NA Q4H PRN PRN Reason: congestion Stop: 09/20/22 17:43 Topiramate (Topiramate 25 Mg Tab) 25 mg PO BID [facility] Stop: 09/17/22 20:59 Last Admin: 05/07/23 09:21 Dose: 25 mg Tramadol HCl (Tramadol Hcl 50 Mg Tablet) 25 - 50 mg PO Q4H PRN PRN Reason: Pain Stop: 09/23/22 23:41 Last Admin: 08/27/22 07:43 Dose: 50 mg Trolamine Salicylate (Trolamine Salicylate 10% Crm 255 Appln/85 Gm Tube) 1 appln EXT BID [facility] Stop: 09/26/22 20:59 Last Admin: 08/28/22 09:23 Dose: 1 appln (9) CHF (congestive heart failure) Heart failure chronicity: chronic
--- NOTE | 2022-08-28 10:40 | Electrocardiogram Report ---
Test Reason : Blood Pressure : / mmHG Vent. Rate : 093 BPM Atrial Rate : 394 BPM P-R Int : 000 ms QRS Dur : 104 ms QT Int : 352 ms P-R-T Axes : 000 037 240 degrees QTc Int : 437 ms Atrial fibrillation LVH with secondary ST/T changes Nonspecific ST and T wave abnormality Abnormal ECG When compared with ECG of 22-AUG-2022 04:58, Atrial fibrillation has replaced Sinus rhythm The ST/T changes are worse Confirmed by Benjamin Zamarripa ([id number]) on 08/28/2022 10:40:03 AM Referred By: REFERRED SELF Confirmed By:Benjamin Zamarripa
[2022-08-28] MEDS: traMADol HCL 50 MG TABLET PO PRN ×3 (11:35→21:41)
[2022-08-28] MEDS: ASCORBIC ACID 500 MG TAB PO SCH (11:36)
[2022-08-28] MEDS: FERROUS SULFATE 325 MG TAB PO SCH (11:36)
[2022-08-28] MEDS: IBUPROFEN 800 MG TAB PO PRN (13:18)
[2022-08-28] MEDS: SIMVASTATIN 10 MG TAB PO SCH (21:42)
[2022-08-29] MEDS: HEPARIN SOD 5,000 UNIT/0.5 ML VIAL SQ SCH ×3 (00:09→17:27)
[2022-08-29] MEDS: ACETAMINOPHEN 500 MG TAB PO SCH ×3 (02:04→17:31)
[2022-08-29] MEDS: IBUPROFEN 800 MG TAB PO PRN ×2 (05:45→20:45)
[2022-08-29] MEDS: LEVOTHYROXINE SODIUM 25 MCG TABLET PO SCH (05:46)
[2022-08-29] MEDS: traMADol HCL 50 MG TABLET PO PRN ×3 (05:50→20:36)
[2022-08-29 06:24] LABS: Creatinine Clr Calc Pharmacy 64.5 ml/min; Est GFR (African American) 57.7 ml/min; Est GFR (Non-African American) 49.8 ml/min
[2022-08-29] MEDS ORDERED: VANCOMYCIN LEVEL ONE (07:30)
[2022-08-29] MEDS: PANTOprazole 40 MG TAB PO SCH ×2 (09:21→20:42)
[2022-08-29] MEDS: TROLAMINE SALICYLATE 10% CRM 255 APPLN/85 GM TUBE EXT SCH ×2 (09:21→20:40)
[2022-08-29] MEDS: guaiFENesin 600 MG TABCR PO SCH ×2 (09:21→20:42)
[2022-08-29] MEDS: TOPIRAMATE 25 MG TAB PO SCH ×2 (09:21→20:43)
[2022-08-29] MEDS: MAGNESIUM OXIDE 400 MG TAB PO SCH ×2 (09:21→20:42)
[2022-08-29] MEDS: FUROSEMIDE 40 MG TAB PO SCH (09:22)
[2022-08-29] MEDS: CLOPIDOGREL BISULFATE 75 MG TAB PO SCH (09:22)
[2022-08-29] MEDS: METOPROLOL SUCC 25MG EXT REL TAB PO SCH (09:22)
[2022-08-29] MEDS: AMIODARONE 200 MG TAB PO SCH (09:22)
[2022-08-29] MEDS: FAMOTIDINE 10 MG TABLET PO SCH (09:22)
[2022-08-29] MEDS: FLUTICASONE FUROATE 100MCG 14 PUFFS/INHALER INH SCH (09:25)
[2022-08-29] MEDS: ASPIRIN 81 MG CHEW PO SCH (09:35)
--- NOTE | 2022-08-29 09:36 | Hospitalist Progress Note ---
Date of Service August 29, 2022 Assessment & Plan (1) Sepsis due to pneumonia: (2) Staphylococcus aureus pneumonia: (3) Parainfluenza virus pneumonia: (4) S/P TAVR (transcatheter aortic valve replacement): (5) Osteoarthritis of left knee: (6) Morbid obesity: (7) Hypoxia: (8) COPD (chronic obstructive pulmonary disease): (9) CHF (congestive heart failure): (10) Dyslipidemia: (11) Paroxysmal atrial fibrillation: Plan 71-year-old female that was a direct transfer from [facility]. Patient was transferred to [facility] from local nursing facility after being found febrile with a temperature of 103 F. Patient was hypotensive at [facility] and started on Levophed. Chest x-ray there showed pulmonary congestion. Urinalysis at that time was negative. She was started on IV Vancomycin and cefepime there. Hypotension resolved on arrival and pressors were stopped. Septic shock secondary to MRSA pna, MRSA bacteremia +parainfluenza infection hx of bioprosthetic valve Chest CT suggestive of RLL PNA at [facility] blood cultures positive - 1 cultx positive for MRSA Vanco and Cefepime started and continued. Cefepime now stopped. continues on vancomycin monotherapy. Blood cultures obtained here (08/18) and negative Sputum cultx (08/18) positive for MRSA Biofire + for parainfluenza Lactate normal 1.[address] chest scan is abnormal and per ICU repeat 6-8 weeks time to determine resolution 08/22 Pt not clinically improving - obtained CXR, ABG, pulmonary medicine consulted CT chest 08/18/2022ersonally reviewed by tooling manager: Multinodular opacities appreciated bilaterally especially in the right upper right lower and left lower lobe. CT chest findings from outside the facility has limited images. Based on the limited images it seems that the patient most likely had septic emboli. 08/22 CXR w/ pulm. edema and lasix given - closely followed by cardiology as well Repeat blood cultx (08/24/2022) negative Given history of TAVR, bacteremia, echo ordered LV is normal in size. Moderate concentric LVH. LV wall motion is normal. EF 65 to 70%. Grade 1 diastolic dysfunction. There is a bioprosthetic aortic valve. Prosthetic valve gradients have points of normal and slightly increased from prior study of March 2020. There is mild thickening of the posterior mitral valve leaflet similar to prior study in March 2022. Tricuspid valve is not well visualized. Cardiology consulted, however, patient is still requiring oxygen and doesn't appear stable enough for JAY which is currently being deferred. Will discuss definitive antibiotic regimen wtih ID when they are available after the weekend. Left knee OA Flare: Left knee warm, swollen and limited ROM with pain that is uncontrolled with Tylenol, tramadol and trolamine. Added Motrin only for breakthrough pain-not ideal in the group home given h/o CKD and +prosthetic heart valve. Still with pain that is improved with higher dose tramadol. Awaiting left knee xray CKD Stage III: Creatinine at her baseline today Paroxysmal atrial fibrillation: Takes Metoprolol and Amiodarone; continue as per cardiology Not anticoagulated due to history of GI bleeding Chronic diastolic CHF due to valvular disease: S/p TAVR: Echo 03/2022-EF > 70%, grade 1 diastolic dysfunction, normal gradient for bioprosthetic aortic valve Appeared euvolemic on admission, no clear fluid overload Continue Plavix, oral lasix Hypothyroidism: chronic, stable. Takes Synthroid; continue History of migraines: chronic, stable. Takes Topiramate; continue Sacral wound: Appears to be healing well WOCN consulted Disposition: PCP: Dr. Ramirez Code Status: Full Code VTE Prophylaxis: Heparin SQ DO Altagracia Najera Hospitalist Admission and Anticipated Discharge Date Admission Date: August 18, 2022 Subjective 71 yo F admitted for septic chock 2/2 MRSA bacteremia and parainfluenza pneumonia with MRSA I came in while she was working with physical therapist and she was yelling out in pain when the therapist hadn't even touched her skin yet. She reports being in pain all night Isn't sure if anything oral is helping-wants Biofreeze from home but states no one can bring it and it isn't currently on formulary. i came back after giving tramadol 100mg and she was improved asking if she was going home today awaiting a left knee xray and will discuss discharge options wt case management. Review of Systems Review of Systems: All systems were reviewed and negative except as indicated on HPI above. Physical Exam Physical Exam: CONSTITUTIONAL: morbid obesity, vitals as above, +moderate distress. EYES: normal conjunctivae, no scleral icterus ENT: external ear and nose normal, some dried blood under left nare that appears 2/2 nasal canula- this is healing NECK: trachea midline RESPIRATORY: normal respiratory effort CARDIOVASCULAR: no peripheral edema CHEST: inspection of chest was normal GASTROINTESTINAL: soft, nontender, ND, no guarding MUSCULOSKELETAL: generalized weakness with no gross focal deficit, head is normocephalic and atraumatic SKIN: warm and dry NEUROLOGIC: CN 2-12 grossly intact, no sensory deficit, normal cognition, normal speech, no tremor PSYCHIATRIC: alert cooperative and oriented to person, place and time. Results & Data Results & Data Vital Signs (Past 12 Hours) Vital Signs Temp Pulse Resp BP Pulse Ox O2 Del Method 08/29/22 07:53 36.5 C 85 16 107/66 95 Room Air 08/28/22 22:00 Room Air Laboratory Results BMP 08/29/22 05:25 Creatinine 1.10 Medications Administered Current Inpatient Medications Acetaminophen (Acetaminophen 500 Mg Tab) 1,000 mg PO Q8H [facility] Stop: 09/26/22 17:59 Last Admin: 08/29/22 09:23 Dose: 1,000 mg Al Hydrox/Mg Hydrox/Simethicone (Aluminum/Magnesium Susp 30 Ml Udc) 15 ml PO Q4H PRN PRN Reason: Dyspepsia Stop: 09/17/22 10:18 Albuterol (Albut/Ipratrop 3mg/0.5mg Neb 3 Ml Vial) 3 ml INH Q6H PRN; Protocol PRN Reason: Shortness Of Breath Or Wheezing Stop: 09/17/22 14:40 Amiodarone HCl (Amiodarone 200 Mg Tab) 200 mg PO QAM [facility] Stop: 09/23/22 06:39 Last Admin: 08/29/22 09:22 Dose: 200 mg Ascorbic Acid (Ascorbic Acid 500 Mg Tab) 250 mg PO DAILY@12 [facility] Stop: 09/17/22 11:59 Last Admin: 08/28/22 11:36 Dose: 250 mg Aspirin (Aspirin 81 Mg Chew) 81 mg PO DAILY [facility] Stop: 09/18/22 08:59 Last Admin: 08/28/22 09:21 Dose: 81 mg Clopidogrel Bisulfate (Clopidogrel Bisulfate 75 Mg Tab) 75 mg PO DAILY [facility] Stop: 09/18/22 08:59 Last Admin: 08/29/22 09:22 Dose: 75 mg Diclofenac Sodium (Diclofenac Sod 1% Gel 100 Gm Tube) 2 gm EXT QID PRN; Protocol PRN Reason: LLE pain Stop: 09/24/22 00:46 Last Admin: 08/26/22 08:44 Dose: 2 gm Famotidine (Famotidine 10 Mg Tablet) 10 mg PO DAILY [facility] Stop: 09/18/22 08:59 Last Admin: 08/29/22 09:22 Dose: 10 mg Ferrous Sulfate (Ferrous Sulfate 325 Mg Tab) 325 mg PO DAILY@12 [facility] Stop: 09/17/22 11:59 Last Admin: 08/28/22 11:36 Dose: 325 mg Fluticasone Furoate (Fluticasone Furoate 100mcg 14 Puffs/Inhaler) 1 puffs INH QAM [facility] Stop: 09/17/22 11:44 Last Admin: 08/29/22 09:25 Dose: Not Given Furosemide (Furosemide 40 Mg Tab) 40 mg PO QAM [facility] Stop: 09/26/22 08:59 Last Admin: 08/29/22 09:22 Dose: 40 mg Guaifenesin (Guaifenesin 600 Mg Tabcr) 600 mg PO Q12 [facility] Stop: 09/20/22 12:24 Last Admin: 08/29/22 09:21 Dose: 600 mg Heparin Sodium (Porcine) (Heparin Sod 5,000 Unit/0.5 Ml Vial) 5,000 units SQ Q8H [facility] Stop: 09/17/22 16:14 Last Admin: 08/29/22 09:24 Dose: 5,000 units Vancomycin HCl 750 mg/ Sodium (Chloride) 265 mls @ 200 mls/hr IV Q12H [facility]; Protocol Stop: 09/10/22 19:59 Last Infusion: 08/28/22 22:57 Dose: Infused Ibuprofen (Ibuprofen 800 Mg Tab) 800 mg PO TID PRN PRN Reason: painful left knee Stop: 09/27/22 12:05 Last Admin: 08/29/22 05:45 Dose: 800 mg Levothyroxine Sodium (Levothyroxine Sodium 25 Mcg Tablet) 25 mcg PO DAILYBB [facility] Stop: 09/18/22 06:29 Last Admin: 08/29/22 05:46 Dose: 25 mcg Magnesium Hydroxide (Magnesium Hydroxide Susp 30 Ml Udc) 30 ml PO Q12H PRN PRN Reason: Constipation Stop: 09/17/22 10:18 Magnesium Oxide (Magnesium Oxide 400 Mg Tab) 400 mg PO BID [facility] Stop: 09/17/22 20:59 Last Admin: 08/29/22 09:21 Dose: 400 mg Metoprolol Succinate (Metoprolol Succ 25mg Ext Rel Tab) 25 mg PO QAM [facility] Stop: 09/18/22 08:59 Last Admin: 08/29/22 09:22 Dose: 25 mg Miscellaneous Information (Vancomycin Consult Active) 1 each N/A UD PRN PRN Reason: Consult Stop: 09/17/22 12:44 Ondansetron HCl (Ondansetron Inj 2 Mg/Ml 2 Ml Vial) 4 mg IV Q6H PRN PRN Reason: Nausea Stop: 09/17/22 10:18 Last Admin: 08/19/22 21:32 Dose: 4 mg Pantoprazole Sodium (Pantoprazole 40 Mg Tab) 40 mg PO BID [facility] Stop: 09/17/22 20:59 Last Admin: 08/29/22 09:21 Dose: 40 mg Polyethylene Glycol (Polyethylene (Miralax) 17 Gm Pack) 17 gm PO DAILY PRN PRN Reason: Constipation Stop: 09/17/22 10:18 Simvastatin (Simvastatin 10 Mg Tab) 10 mg PO HS [facility] Stop: 09/17/22 20:59 Last Admin: 08/28/22 21:42 Dose: 10 mg Sodium Chloride (Sodium Chloride 0.65% Na Soln 45 Ml ([place])) 2 sprays NA Q4H PRN PRN Reason: congestion Stop: 09/20/22 17:43 Topiramate (Topiramate 25 Mg Tab) 25 mg PO BID [facility] Stop: 09/17/22 20:59 Last Admin: 08/29/22 09:21 Dose: 25 mg Tramadol HCl (Tramadol Hcl 50 Mg Tablet) 25 - 50 mg PO Q4H PRN PRN Reason: Pain Stop: 09/23/22 23:41 Last Admin: 08/29/22 05:50 Dose: 50 mg Trolamine Salicylate (Trolamine Salicylate 10% Crm 255 Appln/85 Gm Tube) 1 appln EXT BID [facility] Stop: 09/26/22 20:59 Last Admin: 08/29/22 09:21 Dose: 1 appln (9) CHF (congestive heart failure) Heart failure chronicity: chronic
--- NOTE | 2022-08-29 10:13 | Pharmacy Report ---
Pharmacy PK ABX Note - Date of Service August 29, 2022 - Assessment and Plan Assessment 08/29 Random level this AM returned at 23.7 which is SUPRAtherapeutic. This is day 12 of vancomycin and the fourth day of vancomycin 750 mg IV q12. With this level, Kateeva software was concerned for a poor fit with AUC monitoring. Therefore, obtained second level this AM to determine patient specific kinetics. This level was 22.1 about 4 hours after first level; this suggests a half-life of 40 hours. Renal function is stable. Due to acute accumulation + positive blood culture for MRSA, will schedule random level for 12 hours to further establish patient specific kinetics. 5: Random level this AM returned at 15.0 mcg/mL which is therapeutic. Renal fxn is stable. White count down to 11.5k. Today is Day #10 of Vancomycin since last negative blood cultures on 08/18/22. Discussed with hospitalist and no plans for a JAY anymore. Will await ID input on Monday (08/29/22) regarding duration of Vancomycin. Patient only met 2 minor Harrison criteria based upon presentation. If the plan is to empirically treat for prosthetic valve endocarditis, then do not believe synergy with gentamicin/rifampin is necessary given Blood cultures cleared with vancomycin. Also, consideration for daptomycin 8-10 mg/kg IV q24h would be reasonable for ease of outpatient administration. 08/26: Random level this AM returned at 20.1 mcg/mL. According to AUC/SATYA calculation software, this level is therapeutic. However, there is some concern that level could quickly become supratherapeutic for the following reasons: elevated BMI and risk for accumulation which was seen with a previous regimen and random level being drawn only after 2 doses of current regimen which does not indicate steady state. Renal fxn appears stable. Over the last 5 days, serum creatinine has toggled between 0.98-1.13 mg/dL. Therefore, planning on reducing the vancomycin dose today to provide 5.8 mg/kg IV every 12 hours x 2 doses. Will recheck a random level in the AM. Goal trough is approximately 15 mcg/mL. Did attempt to have turbidity method performed on sputum culture to confirm a true Vanc SATYA of 2 but sample has been disposed after a weeks time. 08/25: JAY recommended, but respiratory compromise is still precluding it. Random vancomycin level this AM likely therapeutic, although changing renal function makes accurate estimation of AUC problematic. Patient does seem to be clearing vancomycin and had 1550 mL of charted UOP yesterday, with 550 mL thus far today. SCr is also mostly stable, only rising from 1.08 to 1.13 mg/dL over the last 24 hours. Will tentatively schedule two low doses of 7.8 mg/kg of vancomycin q12 x2 doses today. Random level with AM labs tomorrow. 08/24: Random vancomycin level this AM associated with a supratherapeutic AUC, despite level 48 hours earlier on same dose indicating a therapeutic AUC. SCr also beginning to rise again. Suspect reduced renal clearance is contributing to increase. Level decreased from 26.2 to 21.8 mcg/mL over 6.72 hours - equates to a t1/2 of 25 hr. Assuming stable renal function (which cannot be assumed), it's estimated that the level would fall to 15 mcg/mL at around 0200. Due to severity of illness (MRSA bacteremia), will therefore provide a small mixon pplemental dose of vancomycin tonight as level may be subtherapeutic if hold off further vancomycin until tomorrow AM. Will obtain repeat random level with AM labs tomorrow. Plan Vancomycin * Current regimen: 750 mg IV every 12 hours * Random level obtained 08/29/22 resulted as 23.7 mcg/mL. Second level approximately 4 hours later was 22.1 mcg/mL indicating a patient specific half life of 40 hours * Repeat random level ordered for: 08/29/22 @ 2100 Pharmacy will continue to follow and will adjust dose/frequency as necessary. Thank you.
[2022-08-29] MEDS ORDERED: traMADol HCL 50 MG TABLET PO STA ×2 (13:10→23:12)
[2022-08-29] MEDS: ASCORBIC ACID 500 MG TAB PO SCH (13:31)
[2022-08-29] MEDS: FERROUS SULFATE 325 MG TAB PO SCH (13:31)
[2022-08-29] MEDS: COUGH DROP (SUGAR FREE) LOZ 24 LOZ/1 BOX BUCCAL PRN ×2 (14:49→17:28)
--- NOTE | 2022-08-29 14:50 | XRay Report ---
LEFT KNEE 2 VIEWS CLINICAL DATA: Left knee pain. FINDINGS: AP and crosstable lateral views of the left knee are compared to study dated 03/24/2016. The skeletal structures are osteopenic. No fracture is seen. There is advanced degenerative narrowing of medial and patellofemoral compartments. Mild narrowing is seen in the lateral compartment. There are large marginal osteophytes, patellar enthesophytes, and degenerative beaking of the tibial spine. Th ere is a joint effusion. Mild soft tissue swelling is seen around the knee. IMPRESSION: 1. Soft tissue swelling and joint effusion with no acute bony abnormality identified. 2. Osteopenia and advanced arthritic change as above. Electronically signed by: Sterling London M.D. 08/29/2022 2:48 PM
[2022-08-29] MEDS: SIMVASTATIN 10 MG TAB PO SCH (20:41)
[2022-08-29] MEDS ORDERED: ALBUT/IPRATROP 3MG/0.5MG NEB 3 ML VIAL NEB STA (23:07)
--- NOTE | 2022-08-29 23:13 | Communication Note ---
Date of Service: August 29, 2022 11 PM Patient complaining of right-sided chest pain, worsening junky cough symptoms, shortness of breath the last 3 days. Tight sounding lungs as per RN. Denies aspiration. PPE : Morbidly obese, anxious, no respiratory distress Anterior chest wall tenderness right, decreased breath sounds, scattered expiratory wheezes RRR, systolic murmur Chest x-ray : Atelectasis, bibasilar infiltrates EKG as per my interpretation : Rate 65, NSR, normal axis, T wave abnormalities septal leads Serum creatinine 1.3 AP Bronchopneumonia, HAP, ongoing vancomycin Rx for MRSA pneumonia ARF CS, add cefepime to vancomycin Nebs stat tramadol 1 dose Baseline UA, hold Lasix for now, monitor creatinine response to IV albumin Will relay to AM provider.
[2022-08-29] MEDS ORDERED: CEFEPIME 2,000 MG in SYRINGE 0 ML IV SCH (23:45)
[2022-08-29] MEDS ORDERED: VANCOMYCIN HCL 1,000 MG in SODIUM CHLORIDE 0.9% 250 ML IV SCH (23:45)
[2022-08-30 00:20] LABS: Albumin Globulin Ratio 0.6 (0.9-2); BUN Creatinine Ratio 18.5 (10-20); Bilirubin,Total 0.4 mg/dl (0.2-1.0); Calcium 8.9 mg/dl (8.6-10.3); Creatinine Clr Calc Pharmacy 54.6 ml/min; Est GFR (African American) 47.1 ml/min; Est GFR (Non-African American) 40.7 ml/min; Globulin 4.7 gm/dl (2.5-4.0); Potassium 3.8 mmol/L (3.5-5.1); Total Protein 7.7 gm/dl (6.0-8.3)
[2022-08-30] MEDS ORDERED: ALBUMIN 25% 100 mL 25 GM/100 ML VIAL IV ONE (00:26)
[2022-08-30] MEDS: HEPARIN SOD 5,000 UNIT/0.5 ML VIAL SQ SCH ×3 (00:26→16:49)
[2022-08-30 00:28] LABS: Basophils # (auto) 0.05 K/uL (0-0.2); Basophils % (auto) 0.5 %; Eosinophils # (auto) 0.36 K/uL (0-0.50); Eosinophils % (auto) 3.6 %; Hematocrit (blood only) 34.1 % (37.0-47.0); Hemoglobin 11.2 g/dl (12.0-16.0); Immature Granulocytes # (auto) 0.05 K/uL (0.01-0.20); Immature Granulocytes % (auto) 0.5 %; Lymphocytes # (auto) 2.18 K/uL (1.2-3.4); Lymphocytes % (auto) 21.8 %; Mean Corpuscular Hgb Conc 32.8 g/dL (32.0-36.0); Mean Corpuscular Volume 94.5 fL (80.0-100.0); Mean Platelet Volume 11.1 fL (9.4-12.4); Monocytes # (auto) 0.93 K/uL (0.11-0.59); Monocytes % (auto) 9.3 %; Neutrophils # (auto) 6.41 K/uL (1.40-6.50); Neutrophils % (auto) 64.3 %; Platelet Count 306 K/uL (130-400); RDW Coefficient of Variation 15.7 % (11.5-14.5); Red Blood Count 3.61 M/uL (4.20-5.40); White Blood Count 9.98 K/ul (4.8-10.8)
[2022-08-30 00:35] LABS: Partial Thromboplastin Time 27.7 Seconds (21.0-31.0)
[2022-08-30] MEDS: ACETAMINOPHEN 500 MG TAB PO SCH ×3 (00:39→17:58)
[2022-08-30] MEDS: LEVOTHYROXINE SODIUM 25 MCG TABLET PO SCH (06:11)
[2022-08-30] MEDS: COUGH DROP (SUGAR FREE) LOZ 24 LOZ/1 BOX BUCCAL PRN ×2 (06:11→13:23)
--- NOTE | 2022-08-30 06:58 | XRay Report ---
XR chest 1V portable HISTORY: 71 years-old Female sob acute shortness of breath COMPARISON: 08/24/2022 TECHNIQUE: AP view of the chest FINDINGS: Cardiac silhouette is enlarged. Interstitial coarsening with mild ill-defined patchy subsegmental bib asilar airspace opacities are again noted. Slightly improved aeration of left lung. Degenerative leung ges of the shoulders and spine. Aortic valvular prosthesis. Cholecystectomy. IMPRESSION: Mixed interstitial and alveolar opacities of the lungs are redemonstrated suggestive of a n infectious or inflammatory pneumonitis with mildly improved aeration of the left lung. ACT 112: Negative or not required by law. The above report was generated using voice recognition software. It may contain grammatical, syntax o r spelling errors. Electronically signed by: Scout Morgan M.D. 08/30/2022 6:57 AM
[2022-08-30] MEDS: METOPROLOL SUCC 25MG EXT REL TAB PO SCH (07:57)
[2022-08-30] MEDS: AMIODARONE 200 MG TAB PO SCH (07:57)
[2022-08-30] MEDS: ASPIRIN 81 MG CHEW PO SCH (07:57)
[2022-08-30] MEDS: FAMOTIDINE 10 MG TABLET PO SCH (07:58)
[2022-08-30] MEDS: MAGNESIUM OXIDE 400 MG TAB PO SCH ×2 (07:58→20:18)
[2022-08-30] MEDS: CLOPIDOGREL BISULFATE 75 MG TAB PO SCH (07:58)
[2022-08-30] MEDS: PANTOprazole 40 MG TAB PO SCH ×2 (07:58→20:18)
[2022-08-30] MEDS: TOPIRAMATE 25 MG TAB PO SCH ×2 (07:59→20:17)
[2022-08-30] MEDS: guaiFENesin 600 MG TABCR PO SCH ×2 (07:59→20:17)
[2022-08-30] MEDS: FLUTICASONE FUROATE 100MCG 14 PUFFS/INHALER INH SCH (07:59)
[2022-08-30] MEDS: TROLAMINE SALICYLATE 10% CRM 255 APPLN/85 GM TUBE EXT SCH ×2 (08:00→20:19)
[2022-08-30] MEDS ORDERED: GENTAMICIN CONSULT ACTIVE PRN (09:30)
[2022-08-30 09:58] LABS: Basophils # (auto) 0.04 K/uL (0-0.2); Basophils % (auto) 0.5 %; Eosinophils # (auto) 0.36 K/uL (0-0.50); Eosinophils % (auto) 4.3 %; Hematocrit (blood only) 33.7 % (37.0-47.0); Hemoglobin 11.1 g/dl (12.0-16.0); Immature Granulocytes # (auto) 0.04 K/uL (0.01-0.20); Immature Granulocytes % (auto) 0.5 %; Lymphocytes # (auto) 1.41 K/uL (1.2-3.4); Lymphocytes % (auto) 16.9 %; Mean Corpuscular Hemoglobin 31.3 pg (25.0-34.0); Mean Corpuscular Hgb Conc 32.9 g/dL (32.0-36.0); Mean Corpuscular Volume 94.9 fL (80.0-100.0); Mean Platelet Volume 10.7 fL (9.4-12.4); Monocytes # (auto) 0.65 K/uL (0.11-0.59); Monocytes % (auto) 7.8 %; Neutrophils # (auto) 5.86 K/uL (1.40-6.50); Platelet Count 282 K/uL (130-400); RDW Coefficient of Variation 15.8 % (11.5-14.5); RDW Standard Deviation 54.4 fL (36.4-46.3); Red Blood Count 3.55 M/uL (4.20-5.40); White Blood Count 8.36 K/ul (4.8-10.8)
[2022-08-30] MEDS ORDERED: RIFAMPIN PO SCH (10:00)
[2022-08-30] MEDS: traMADol HCL 50 MG TABLET PO PRN ×2 (10:14→16:46)
[2022-08-30] MEDS ORDERED: GENTAMICIN SULFATE IV ONE (10:15)
[2022-08-30] MEDS ORDERED: DEXTROSE 5% IV ONE (10:15)
[2022-08-30 10:18] LABS: BUN Creatinine Ratio 17.9 (10-20); Calcium 8.8 mg/dl (8.6-10.3); Creatinine Clr Calc Pharmacy 57.7 ml/min; Est GFR (African American) 50.4 ml/min; Est GFR (Non-African American) 43.5 ml/min; Potassium 3.9 mmol/L (3.5-5.1)
--- NOTE | 2022-08-30 11:16 | Hospitalist Progress Note ---
Date of Service August 30, 2022 Assessment & Plan (1) Sepsis due to pneumonia: (2) Staphylococcus aureus pneumonia: (3) Parainfluenza virus pneumonia: (4) S/P TAVR (transcatheter aortic valve replacement): (5) Osteoarthritis of left knee: (6) Morbid obesity: (7) Hypoxia: (8) COPD (chronic obstructive pulmonary disease): (9) CHF (congestive heart failure): (10) Dyslipidemia: (11) Paroxysmal atrial fibrillation: Plan 71-year-old female that was a direct transfer from [facility]. Patient was transferred to [facility] from local nursing facility after being found febrile with a temperature of 103 F. Patient was hypotensive at [facility] and started on Levophed. Chest x-ray there showed pulmonary congestion. Urinalysis at that time was negative. She was started on IV Vancomycin and cefepime there. Hypotension resolved on arrival and pressors were stopped. Septic shock secondary to MRSA pna, MRSA bacteremia +parainfluenza infection hx of bioprosthetic valve Chest CT suggestive of RLL PNA at [facility] blood cultures positive - 1 cultx positive for MRSA Vanco and Cefepime started and continued. Cefepime now stopped. continues on vancomycin monotherapy. Blood cultures obtained here (08/18) and negative Sputum cultx (08/18) positive for MRSA Biofire + for parainfluenza Lactate normal 1.[address] chest scan is abnormal and per ICU repeat 6-8 weeks time to determine resolution 08/22 Pt not clinically improving - obtained CXR, ABG, pulmonary medicine consulted CT chest 08/18/2022ersonally reviewed by anthropology and archeology instructor: Multinodular opacities appreciated bilaterally especially in the right upper right lower and left lower lobe. CT chest findings from outside the facility has limited images. Based on the limited images it seems that the patient most likely had septic emboli. 08/22 CXR w/ pulm. edema and lasix given - closely followed by cardiology as well Repeat blood cultx (08/24/2022) negative Given history of TAVR, bacteremia, TTE ordered LV is normal in size. Moderate concentric LVH. LV wall motion is normal. EF 65 to 70%. Grade 1 diastolic dysfunction. There is a bioprosthetic aortic valve. Prosthetic valve gradients have points of normal and slightly increased from prior study of March 2020. There is mild thickening of the posterior mitral valve leaflet similar to prior study in March 2022. Tricuspid valve is not well visualized. Cardiology consulted, however, patient is still requiring oxygen and doesn't appear stable enough for JAY which is currently being deferred. Will discuss definitive antibiotic regimen wtih ID when they are available after the weekend. 08/29 Per ID recs, we need to empirically treat for PVE as we don't have a JAY. Added gentamicin and rifampin to regimen per their rec (updated ID documentation in EPIC). CXR from last night appears improved. Hold further cefepime at this time and repeat CXR/consider restarting if she clinically decompensates or spikes a fever. Cont supportive care of respiratory symptoms, and most notable, she does not move at all and would really benefit from aggressive pulmonary toilet efforts and mobilization. The patient is very unmotivated to move around. She is currently overwhelmed and this has happened frequently, at which point she defers to others in her family. Although she is oriented, this makes it difficult to guide her medical therapy and potentially delays care. Hopeful that my discussion with her sister today will help answer her questions and calm her down. Left knee OA Flare: Left knee warm, swollen and limited ROM with pain that is uncontrolled with Tylenol, tramadol and trolamine. Added Motrin only for breakthrough pain-not ideal in the fci given h/o CKD and +prosthetic heart valve. Still with pain that is improved with higher dose tramadol. Left knee xray with osteopenia and advances OA, no fracture. This is consistent with OA flare. Cont with current supportive care efforts including scheduled Tylenol and PRN tramadol. CKD Stage III: Creatinine increased slightly to 1.3 overnight, now down to 1.2. Cont to monitor daily while adjusting antibiotics. Paroxysmal atrial fibrillation: Takes Metoprolol and Amiodarone; continue as per cardiology Not anticoagulated due to history of GI bleeding Chronic diastolic CHF due to valvular disease: S/p TAVR: Echo 03/2022-EF > 70%, grade 1 diastolic dysfunction, normal gradient for bioprosthetic aortic valve Appeared euvolemic on admission, no clear fluid overload Continue Plavix, oral lasix currently on hold with slight bump in creatinine overnight. Hypothyroidism: chronic, stable. Takes Synthroid; continue History of migraines: chronic, stable. Takes Topiramate; continue Sacral wound: Appears to be healing well WOCN consulted Disposition: PCP: Dr. Ramirez Code Status: Full Code VTE Prophylaxis: Heparin SQ Dispo-hold off on discharge until her antibiotic levels are consistently therapeutic. Add cardiac monitoring with addition of rifampin to amiodarone and borderline kidney function. Chest pain is likley MSK in nature given nonischemic EKG overnight. Will cont to monitor for changes. I spent a total [id number] coordinating, documenting, and providing care for this patient excluding time spent in the performance of separately billed services Corrina Marie DO [facility] and [facility]ticipated Discharge Date Admission Date: August 18, 2022 Subjective 71 yo F admitted for septic chock 2/2 MRSA bacteremia and parainfluenza pneumonia with MRSA She reported acute onset of right sided chest pain that is localized sharp and severe While telling me about the pain, she kept saying she was having a heart attack and appeared anxious which made her cough more When asked about her respiratory symptoms she said not good Asked her to clarify and she was unable, "It is just bad" She first said she had the chest pain for only an hour and then later she said that it has been ongoing all night Discussed updated ID recommendations with specialist who recommends adding gent and rifampin for empiric treatment of PVE given we cannot perform JAY There is a concern for arrhythmia between amiodarone and rifampin so moving her to telemetry for better monitoring Discussed new abx with the pharmacist who clarified we will need to get the gentamicin dosing worked out with therapeutic levels prior to it being safe to discharge her on a consistent dose. She will stay overnight at least while we titrate medication doses. I stopped her sister in the hallway and explained the pros and cons of the PICC line. I explained to her that the patient states she is scared generally, and wanted to run this past her. She verbalized understanding and states she will discuss this further with her Spoke [facility] primary RN who will help with the consent paperwork as needed. Review of Systems Review of Systems: All systems were reviewed and negative except as indicated on HPI above. Physical Exam Physical Exam: CONSTITUTIONAL: morbid obesity, vitals as above, NAD but appears anxious and overwhelmed. EYES: normal conjunctivae, no scleral icterus ENT: external ear and nose normal, some dried blood under left nare that appears 2/2 nasal canula- this is healing NECK: trachea midline RESPIRATORY: CARDIOVASCULAR: CHEST: inspection of chest was normal GASTROINTESTINAL: MUSCULOSKELETAL: generalized weakness with no gross focal deficit, head is normocephalic and atraumatic SKIN: warm and dry NEUROLOGIC: CN 2-12 grossly intact, no sensory deficit, normal cognition, normal speech, no tremor PSYCHIATRIC: alert cooperative and oriented to person, place and time. Results & Data Results & Data Vital Signs (Past 12 Hours) Vital Signs Temp Pulse Resp BP Pulse Ox O2 Del Method 08/30/22 07:14 36.4 C L 66 16 136/75 94 Room Air 08/29/22 23:36 18 93 Room Air Laboratory Results Short CBC 08/29/22 08/30/22 Range/Units 23:40 09:44 WBC 9.98 8.36 (4.8-10.8) K/ul Hgb 11.2 L 11.1 L (12.0-16.0) g/dl Hct 34.1 L 33.7 L (37.0-47.0) % Plt Count 306 282 (130-400) K/uL BMP 08/29/22 08/30/22 23:40 09:44 Sodium 137 137 Potassium 3.8 3.9 Chloride 102 103 Carbon Dioxide 25 26 BUN 24 H 22 Creatinine 1.30 H 1.23 H Glucose 85 128 H Calcium 8.9 8.8 Liver Function 08/29/22 Range/Units 23:40 Total Bilirubin 0.4 (0.2-1.0) mg/dl AST 21 (13-39) U/L ALT 15 (7-52) U/L Alkaline Phosphatase 90 (34-104) U/L Albumin 3.0 L (3.4-5.0) gm/dl Diagnostic Findings Chest X-Ray 08/29/22 23:08 XR chest 1V portable HISTORY: 71 years-old Female sob acute shortness of breath COMPARISON: 08/24/2022 TECHNIQUE: AP view of the chest FINDINGS: Cardiac silhouette is enlarged. Interstitial coarsening with mild ill-defined patchy subsegmental bibasilar airspace opacities are again noted. Slightly improved aeration of left lung. Degenerative changes of the shoulders and spine. Aortic valvular prosthesis. Cholecystectomy. IMPRESSION: Mixed interstitial and alveolar opacities of the lungs are redemonstrated suggestive of an infectious or inflammatory pneumonitis with mildly improved aeration of the left lung. ACT 112: Negative or not required by law. The above report was generated using voice recognition software. It may contain grammatical, syntax or spelling errors. Electronically signed by: Scout Morgan M.D. 08/30/2022 6:57 AM Medications Administered Current Inpatient Medications Acetaminophen (Acetaminophen 500 Mg Tab) 1,000 mg PO Q8H [facility] Stop: 09/26/22 17:59 Last Admin: 08/30/22 10:20 Dose: 1,000 mg Al Hydrox/Mg Hydrox/Simethicone (Aluminum/Magnesium Susp 30 Ml Udc) 15 ml PO Q4H PRN PRN Reason: Dyspepsia Stop: 09/17/22 10:18 Albuterol (Albut/Ipratrop 3mg/0.5mg Neb 3 Ml Vial) 3 ml INH Q6H PRN; Protocol PRN Reason: Shortness Of Breath Or Wheezing Stop: 09/17/22 14:40 Amiodarone HCl (Amiodarone 200 Mg Tab) 200 mg PO QAM [facility] Stop: 09/23/22 06:39 Last Admin: 08/30/22 07:57 Dose: 200 mg Ascorbic Acid (Ascorbic Acid 500 Mg Tab) 250 mg PO DAILY@12 [facility] Stop: 09/17/22 11:59 Last Admin: 08/29/22 13:31 Dose: 250 mg Aspirin (Aspirin 81 Mg Chew) 81 mg PO DAILY [facility] Stop: 09/18/22 08:59 Last Admin: 08/30/22 07:57 Dose: 81 mg Clopidogrel Bisulfate (Clopidogrel Bisulfate 75 Mg Tab) 75 mg PO DAILY [facility] Stop: 09/18/22 08:59 Last Admin: 08/30/22 07:58 Dose: 75 mg Diclofenac Sodium (Diclofenac Sod 1% Gel 100 Gm Tube) 2 gm EXT QID PRN; Protocol PRN Reason: LLE pain Stop: 09/24/22 00:46 Last Admin: 08/26/22 08:44 Dose: 2 gm Famotidine (Famotidine 10 Mg Tablet) 10 mg PO DAILY [facility] Stop: 09/18/22 08:59 Last Admin: 08/30/22 07:58 Dose: 10 mg Ferrous Sulfate (Ferrous Sulfate 325 Mg Tab) 325 mg PO DAILY@12 [facility] Stop: 09/17/22 11:59 Last Admin: 08/29/22 13:31 Dose: 325 mg Fluticasone Furoate (Fluticasone Furoate 100mcg 14 Puffs/Inhaler) 1 puffs INH Q AM [facility] Stop: 09/17/22 11:44 Last Admin: 08/30/22 07:59 Dose: Not Given Furosemide (Furosemide 40 Mg Tab) 40 mg PO QAM [facility] Stop: 09/26/22 08:59 Last Admin: 08/29/22 09:22 Dose: 40 mg Guaifenesin (Guaifenesin 600 Mg Tabcr) 600 mg PO Q12 [facility] Stop: 09/20/22 12:24 Last Admin: 08/30/22 07:59 Dose: 600 mg Heparin Sodium (Porcine) (Heparin Sod 5,000 Unit/0.5 Ml Vial) 5,000 units SQ Q8H [facility] Stop: 09/17/22 16:14 Last Admin: 08/30/22 07:59 Dose: 5,000 units Vancomycin HCl 1,000 mg/ (Sodium Chloride) 270 mls @ 200 mls/hr IV Q24H [facility]; Protocol Stop: 09/10/22 23:44 Last Infusion: 08/30/22 01:46 Dose: Infused Gentamicin Sulfate 135 mg/ (Dextrose) 103.375 mls @ 100 mls/hr IV ONE ONE; Protocol Stop: 08/30/22 11:17 Ibuprofen (Ibuprofen 800 Mg Tab) 800 mg PO TID PRN PRN Reason: painful left knee Stop: 09/27/22 12:05 Last Admin: 08/29/22 20:45 Dose: 800 mg Levothyroxine Sodium (Levothyroxine Sodium 25 Mcg Tablet) 25 mcg PO DAILYBB [facility] Stop: 09/18/22 06:29 Last Admin: 08/30/22 06:11 Dose: 25 mcg Magnesium Hydroxide (Magnesium Hydroxide Susp 30 Ml Udc) 30 ml PO Q12H PRN PRN Reason: Constipation Stop: 09/17/22 10:18 Magnesium Oxide (Magnesium Oxide 400 Mg Tab) 400 mg PO BID [facility] Stop: 09/17/22 20:59 Last Admin: 08/30/22 07:58 Dose: 400 mg Menthol (Cough Drop (Sugar Free) Dyana 24 Dyana/1 Box) 1 dyana BUCCAL Q2H PRN PRN Reason: Sore Throat Stop: 09/28/22 14:16 Last Admin: 08/30/22 06:11 Dose: 1 dyana Metoprolol Succinate (Metoprolol Succ 25mg Ext Rel Tab) 25 mg PO QAM [facility] Stop: 09/18/22 08:59 Last Admin: 08/30/22 07:57 Dose: 25 mg Miscellaneous Information (Vancomycin Consult Active) 1 each N/A UD PRN PRN Reason: Consult Stop: 09/17/22 12:44 Miscellaneous Information (Gentamicin Consult Active) 1 each N/A UD PRN PRN Reason: Consult Stop: 09/29/22 09:29 Ondansetron HCl (Ondansetron Inj 2 Mg/Ml 2 Ml Vial) 4 mg IV Q6H PRN PRN Reason: Nausea Stop: 09/17/22 10:18 Last Admin: 08/19/22 21:32 Dose: 4 mg Pantoprazole Sodium (Pantoprazole 40 Mg Tab) 40 mg PO BID [facility] Stop: 09/17/22 20:59 Last Admin: 08/30/22 07:58 Dose: 40 mg Polyethylene Glycol (Polyethylene (Miralax) 17 Gm Pack) 17 gm PO DAILY PRN PRN Reason: Constipation Stop: 09/17/22 10:18 Rifampin (Rifampin 300mg/30ml Udp) 300 mg PO Q8 [facility] Stop: 10/04/22 23:59 Simvastatin (Simvastatin 10 Mg Tab) 10 mg PO HS [facility] Stop: 09/17/22 20:59 Last Admin: 08/29/22 20:41 Dose: 10 mg Sodium Chloride (Sodium Chloride 0.65% Na Soln 45 Ml (Reeves)) 2 sprays NA Q4H PRN PRN Reason: congestion Stop: 09/20/22 17:43 Topiramate (Topiramate 25 Mg Tab) 25 mg PO BID [facility] Stop: 09/17/22 20:59 Last Admin: 08/30/22 07:59 Dose: 25 mg Tramadol HCl (Tramadol Hcl 50 Mg Tablet) 50 - 100 mg PO Q4H PRN PRN Reason: severe pain Stop: 09/23/22 23:41 Last Admin: 08/30/22 10:14 Dose: 100 mg Trolamine Salicylate (Trolamine Salicylate 10% Crm 255 Appln/85 Gm Tube) 1 appln EXT BID [facility] Stop: 09/26/22 20:59 Last Admin: 08/30/22 08:00 Dose: 1 appln (9) CHF (congestive heart failure) Heart failure chronicity: chronic
[2022-08-30] MEDS ORDERED: CEFEPIME 2,000 MG in SYRINGE 0 ML IV SCH (12:00)
[2022-08-30] MEDS: ASCORBIC ACID 500 MG TAB PO SCH (12:18)
[2022-08-30] MEDS: FERROUS SULFATE 325 MG TAB PO SCH (12:18)
[2022-08-30] MEDS ORDERED: Nursing to Pharmacy Communication SCH (13:30)
--- NOTE | 2022-08-30 14:29 | Pharmacy Report ---
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 Recommended dosing for gentamicin in treatment of MRSA endocarditis w/ prosthetic valve is 3 mg/kg/24 hours in 2-3 divided doses. eCrCl at this time is 58 mL/min, will utilize q12h dosing of gentamicin and obtain peak/trough tomorrow with third dose. 08/29 Random level this AM returned at 23.7 which is SUPRAtherapeutic. This is day 12 of vancomycin and the fourth day of vancomycin 750 mg IV q12. With this level, [employer] software was concerned for a poor fit with AUC monitoring. Therefore, obtained second level this AM to determine patient specific kinetics. This level was 22.1 about 4 hours after first level; this suggests a half-life of 40 hours. Renal function is stable. Due to acute accumulation + positive blood culture for MRSA, will schedule random level for 12 hours to further establish patient specific kinetics. 08/27: Random level this AM returned at 15.0 mcg/mL which is therapeutic. Renal fxn is stable. White count down to 11.5k. Today is Day #10 of Vancomycin since last negative blood cultures on 08/18/22. Discussed with hospitalist and no plans for a JAY anymore. Will await ID input on Monday (08/29/22) regarding duration of Vancomycin. Patient only met 2 minor Harrison criteria based upon presentation. If the plan is to empirically treat for prosthetic valve endocarditis, then do not believe synergy with gentamicin/rifampin is necessary given Blood cultures cleared with vancomycin. Also, consideration for daptomycin 8-10 mg/kg IV q24h would be reasonable for ease of outpatient administration. 08/26: Random level this AM returned at 20.1 mcg/mL. According to AUC/SATYA calculation software, this level is therapeutic. However, there is some concern that level could quickly become supratherapeutic for the following reasons: elevated BMI and risk for accumulation which was seen with a previous regimen and random level being drawn only after 2 doses of current regimen which does not indicate steady state. Renal fxn appears stable. Over the last 5 days, serum creatinine has toggled between 0.98-1.13 mg/dL. Therefore, planning on reducing the vancomycin dose today to provide 5.8 mg/kg IV every 12 hours x 2 doses. Will recheck a random level in the AM. Goal trough is approximately 15 mcg/mL. Did attempt to have turbidity method performed on sputum culture to confirm a true Vanc SATYA of 2 but sample has been disposed after a weeks time. 08/25: JAY recommended, but respiratory compromise is still precluding it. Random vancomycin level this AM likely therapeutic, although changing renal function makes accurate estimation of AUC problematic. Patient does seem to be clearing vancomycin and had 1550 mL of charted UOP yesterday, with 550 mL thus far today. SCr is also mostly stable, only rising from 1.08 to 1.13 mg/dL over the last 24 hours. Will tentatively schedule two low doses of 7.8 mg/kg of vancomycin q12 x2 doses today. Random level with AM labs tomorrow. 08/24: Random vancomycin level this AM associated with a supratherapeutic AUC, despite level 48 hours earlier on same dose indicating a therapeutic AUC. SCr also beginning to rise again. Suspect reduced renal clearance is contributing to increase. Level decreased from 26.2 to 21.8 mcg/mL over 6.72 hours - equates to a t1/2 of 25 hr. Assuming stable renal function (which cannot be assumed), it's estimated that the level would fall to 15 mcg/mL at around 0200. Due to severity of illness (MRSA bacteremia), will therefore provide a small supplement al dose of vancomycin tonight as level may be subtherapeutic if hold off further vancomycin until tomorrow AM. Will obtain repeat random level with AM labs tomorrow. Plan Vancomycin * Current regimen: 1000 mg IV every 24 hours * Random level obtained 08/30/22 resulted as 18.5 mcg/mL. Subtherapeutic AUC/SATYA anticipated. * Change to 1250 mg IV every 24 hours w/ predicted AUC at steady state: 468 mg/L.hr * Will repeat level in the next 48-72 hours if therapy is continued and/or change in patient clinical status Gentamicin * dosing based on adjusted body weight of 89.7 kg * 135 mg IV q12h ~ 1.5 mg/kg q12h for 3 mg/kg over 24 hour period * Peak and trough ordered for tomorrow with third dose Rifampin * 300 mg PO q8h is the appropriate/recommended dose for this indication Pharmacy will continue to follow and will adjust dose/frequency as necessary. Thank you.
[2022-08-30 15:31] LABS: Appearance Urine Clear (Clear); Bacteria Urine Automated Negative (Negative); Bilirubin Urine Negative (Negative); Blood Urine Negative (Negative); Color Urine Yellow; Epithelial Cell Urine Auto >30 /lpf (0-5); Glucose Urine UA Negative (Negative); Ketones Urine Negative (Negative); Leukocyte Esterase Urine Trace (Negative); Nitrite Urine Negative (Negative); Protein Urine Trace (Negative); RBC Urine Automated 0-4 /hpf (0-4); Specific Gravity Urine 1.014 (1.000-1.030); Urobilinogen Urine Negative (Negative); pH Urine 5.5 (4.5-7.5)
[2022-08-30] MEDS ORDERED: MICONAZOLE NITRATE POWDER 85 GM EXT PRN (18:23)
[2022-08-30] MEDS: SIMVASTATIN 10 MG TAB PO SCH (20:16)
[2022-08-30] MEDS: VANCOMYCIN HCL 1,250 MG in SODIUM CHLORIDE 0.9% 250 ML IV SCH (20:16)
[2022-08-30] MEDS: RIFAMPIN PO SCH (20:16)
[2022-08-31] MEDS: ACETAMINOPHEN 500 MG TAB PO SCH ×3 (01:38→17:25)
[2022-08-31] MEDS: DEXTROSE 5% IV SCH ×2 (01:38→12:43)
[2022-08-31] MEDS: GENTAMICIN SULFATE IV SCH ×2 (01:38→12:43)
--- NOTE | 2022-08-31 05:46 | Electrocardiogram Report ---
Test Reason : Blood Pressure : / mmHG Vent. Rate : 065 BPM Atrial Rate : 065 BPM P-R Int : 170 ms QRS Dur : 104 ms QT Int : 424 ms P-R-T Axes : 046 022 052 degrees QTc Int : 440 ms Normal sinus rhythm Nonspecific ST and T wave abnormality Abnormal ECG When compared with ECG of 28-AUG-2022 06:34, Sinus rhythm has replaced Atrial fibrillation T wave inversion no longer evident in Inferior leads Nonspecific T wave abnormality, improved in Anterolateral leads Confirmed by Larry Saez ([id number]) on 08/31/2022 5:46:25 AM Referred By: REFERRED SELF Confirmed By:Larry Saez
[2022-08-31] MEDS: LEVOTHYROXINE SODIUM 25 MCG TABLET PO SCH (05:55)
[2022-08-31] MEDS: RIFAMPIN PO SCH ×3 (05:56→20:27)
[2022-08-31] MEDS: traMADol HCL 50 MG TABLET PO PRN ×4 (06:48→22:21)
[2022-08-31] MEDS: HEPARIN SOD 5,000 UNIT/0.5 ML VIAL SQ SCH ×4 (08:30→21:23)
[2022-08-31] MEDS: TOPIRAMATE 25 MG TAB PO SCH ×2 (08:31→20:25)
[2022-08-31] MEDS: guaiFENesin 600 MG TABCR PO SCH ×2 (08:31→20:25)
[2022-08-31] MEDS: AMIODARONE 200 MG TAB PO SCH (08:31)
[2022-08-31] MEDS: METOPROLOL SUCC 25MG EXT REL TAB PO SCH (08:31)
[2022-08-31] MEDS: CLOPIDOGREL BISULFATE 75 MG TAB PO SCH (08:31)
[2022-08-31] MEDS: FAMOTIDINE 10 MG TABLET PO SCH (08:31)
[2022-08-31] MEDS: MAGNESIUM OXIDE 400 MG TAB PO SCH ×2 (08:31→20:26)
[2022-08-31] MEDS: DICLOFENAC SOD 1% GEL 100 GM TUBE EXT PRN ×2 (08:32→20:23)
[2022-08-31] MEDS: PANTOprazole 40 MG TAB PO SCH ×2 (08:32→20:25)
[2022-08-31] MEDS: TROLAMINE SALICYLATE 10% CRM 255 APPLN/85 GM TUBE EXT SCH ×2 (08:33→20:23)
[2022-08-31] MEDS: FLUTICASONE FUROATE 100MCG 14 PUFFS/INHALER INH SCH (08:33)
[2022-08-31] MEDS: ASPIRIN 81 MG CHEW PO SCH (08:35)
--- NOTE | 2022-08-31 10:06 | Hospitalist Progress Note ---
Date of Service August 31, 2022 Assessment & Plan (1) Sepsis due to pneumonia: (2) Staphylococcus aureus pneumonia: (3) Parainfluenza virus pneumonia: (4) S/P TAVR (transcatheter aortic valve replacement): (5) Osteoarthritis of left knee: (6) Morbid obesity: (7) Hypoxia: (8) COPD (chronic obstructive pulmonary disease): (9) CHF (congestive heart failure): (10) Dyslipidemia: (11) Paroxysmal atrial fibrillation: Plan 71-year-old female that was a direct transfer from [facility]. Patient was transferred to [facility] from local nursing facility after being found febrile with a temperature of 103 F. Patient was hypotensive at [facility] and started on Levophed. Chest x-ray there showed pulmonary congestion. Urinalysis at that time was negative. She was started on IV Vancomycin and cefepime there. Hypotension resolved on arrival and pressors were stopped. Septic shock secondary to MRSA pna, MRSA bacteremia +parainfluenza infection hx of bioprosthetic valve Chest CT suggestive of RLL PNA at [facility] blood cultures positive - 1 cultx positive for MRSA Vanco and Cefepime were started. Cefepime now stopped. Currently on vancomycin monotherapy. Blood cultures obtained here (08/18) and negative Sputum cultx (08/18) positive for MRSA Biofire + for parainfluenza Lactate normal 1.[address] chest scan is abnormal CT chest 08/18/2022: Multinodular opacities appreciated bilaterally especially in the right upper right lower and left lower lobe. CT chest findings from outside the facility has limited images. Based on the limited images it seems that the patient most likely had septic emboli. Repeat blood cultx (08/24/2022) negative Given history of TAVR, bacteremia, TTE ordered LV is normal in size. Moderate concentric LVH. LV wall motion is normal. EF 65 to 70%. Grade 1 diastolic dysfunction. There is a bioprosthetic aortic valve. Prosthetic valve gradients have points of normal and slightly increased from prior study of March 2020. There is mild thickening of the posterior mitral valve leaflet similar to prior study in March 2022. Tricuspid valve is not well visualized. Cardiology consulted, however, patient is still requiring oxygen and doesn't appear stable enough for JAY which is currently being deferred. ID recommended need to empirically treat for endocarditis as we don't have a JAY. Based on ID recs, needs IV vanc, po rifampin till 10/04/22 and gentamicin for 2 weeks. Needs to f/u with ID outpatient in 3-5 weeks Patient confirmed she is agreeable to PICC line placement today Left knee OA Flare: Left knee xray with osteopenia and advances OA, no fracture. This is consistent with OA flare. Cont with current supportive care efforts including scheduled Tylenol and PRN tramadol. CKD Stage III: Creatinine was 1.23 yesterday Awaiting labs today Lasix was on hold by previous provider. Will follow up labs and plan resumption Paroxysmal atrial fibrillation: Takes Metoprolol and Amiodarone; continue as per cardiology Not anticoagulated due to history of GI bleeding Chronic diastolic CHF due to valvular disease: S/p TAVR: Echo 03/2022-EF > 70%, grade 1 diastolic dysfunction, normal gradient for bioprosthetic aortic valve Appeared euvolemic on admission, no clear fluid overload Continue Plavix Plan to resume lasix once lab results Hypothyroidism: Chronic, stable. Takes Synthroid; continue History of migraines: Chronic, stable. Takes Topiramate; continue Sacral wound: Continue wound care Disposition: PCP: Dr. Ramirez Code Status: Full Code VTE Prophylaxis: Heparin SQ I spent a total of 50 minutes coordinating, documenting and providing care for this patient excluding time spent in performance of separately billed services Admission and Anticipated Discharge Date Admission Date: August 18, 2022 Subjective Patient seen and examined Reports cough and some right sided chest pain with cough Denied any SOB, nausea, vomiting, abd pain, diarrhea, constipation Reports left knee pain which she attributed to her OA Denied any fever, chills Denied any headache, dizziness Physical Exam Constitutional: + well hydrated and + obese; no acute distress Eyes: PERRL, conjunctivae normal, anicteric sclerae ENMT: external ear and nose normal, oropharynx normal Respiratory: normal respiratory effort; no respiratory distress Mild basilar crackles Cardiovascular: Rate/Rhythm: regular rate and regular rhythm S1 S2 Gastrointestinal (Abdomen): normal bowel sounds, soft, nontender, no hepat osplenomegaly Musculoskeletal: No pedal edema Psychiatric: A+Ox3, euthymic affect Results & Data Results & Data Vital Signs (Past 12 Hours) Vital Signs Temp Pulse Resp BP BP Pulse Ox O2 Del Method 08/31/22 08:00 36.4 C L 60 19 95/58 L 92 Room Air 08/31/22 03:52 36.7 C 68 16 107/65 92 Room Air 08/30/22 23:26 Room Air 08/30/22 23:17 36.8 C 63 20 105/64 93 Room Air Laboratory Results Abnormal lab results 08/30/22 Range/Units 15:07 Urine Protein Trace H (Negative) Ur Leukocyte Esterase Trace H (Negative) U Epithel Cells (Auto) >30 H (0-5) /lpf Urine Yeast Budding A (None Prsent) (9) CHF (congestive heart failure) Heart failure chronicity: chronic
[2022-08-31 11:29] LABS: Hematocrit (blood only) 33.9 % (37.0-47.0); Hemoglobin 10.9 g/dl (12.0-16.0); Mean Corpuscular Hemoglobin 30.8 pg (25.0-34.0); Mean Corpuscular Hgb Conc 32.2 g/dL (32.0-36.0); Mean Corpuscular Volume 95.8 fL (80.0-100.0); Mean Platelet Volume 10.6 fL (9.4-12.4); Platelet Count 306 K/uL (130-400); RDW Coefficient of Variation 15.9 % (11.5-14.5); RDW Standard Deviation 55.8 fL (36.4-46.3); Red Blood Count 3.54 M/uL (4.20-5.40); White Blood Count 7.16 K/ul (4.8-10.8)
[2022-08-31] MEDS ORDERED: GENTAMICIN TROUGH 1 EACH ONE (11:30)
[2022-08-31 11:47] LABS: Calcium 8.9 mg/dl (8.6-10.3); Potassium 4.2 mmol/L (3.5-5.1)
[2022-08-31 11:52] LABS: BUN Creatinine Ratio 16.3 (10-20); Creatinine Clr Calc Pharmacy 69.4 ml/min; Est GFR (African American) 61.7 ml/min; Est GFR (African American) 63.2 ml/min; Est GFR (Non-African American) 53.3 ml/min; Est GFR (Non-African American) 54.5 ml/min
[2022-08-31] MEDS: ASCORBIC ACID 500 MG TAB PO SCH (12:42)
[2022-08-31] MEDS: FERROUS SULFATE 325 MG TAB PO SCH (12:43)
[2022-08-31] MEDS ORDERED: LORazepam 2 MG/1 ML VIAL IV PRN (13:19)
[2022-08-31] MEDS ORDERED: GENTAMICIN PEAK ONE (14:00)
--- NOTE | 2022-08-31 15:48 | Pharmacy Report ---
Pharmacy PK ABX Note - Date of Service August 31, 2022 - Assessment and Plan Assessment 08/31: Gent trough level before 3rd dose came back elevated, therefore dosing put on hold - repeat gent random level this afternoon still elevated however able to calculate clearance from 2 levels. Estimated that level will be less then <1 tomorrow AM. Will get random in AM to ensure when to redose. Likely will need interval extended out to q24hr. 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 Recommended dosing for gentamicin in treatment of MRSA endocarditis w/ prosthetic valve is 3 mg/kg/24 hours in 2-3 divided doses. eCrCl at this time is 58 mL/min, will utilize q12h dosing of gentamicin and obtain peak/trough tomorrow with third dose. 08/29 Random level this AM returned at 23.7 which is SUPRAtherapeutic. This is day 12 of vancomycin and the fourth day of vancomycin 750 mg IV q12. With this level, [employer] software was concerned for a poor fit with AUC monitoring. Therefore, obtained second level this AM to determine patient specific kinetics. This level was 22.1 about 4 hours after first level; this suggests a half-life of 40 hours. Renal function is stable. Due to acute accumulation + positive blood culture for MRSA, will schedule random level for 12 hours to further establish patient specific kinetics. 08/27: Random level this AM returned at 15.0 mcg/mL which is therapeutic. Renal fxn is stable. White count down to 11.5k. Today is Day #10 of Vancomycin since last negative blood cultures on 08/18/22. Discussed with hospitalist and no plans for a JAY anymore. Will await ID input on Monday (08/29/22) regarding duration of Vancomycin. Patient only met 2 minor Harrison criteria based upon presentation. If the plan is to empirically treat for prosthetic valve endocarditis, then do not believe synergy with gentamicin/rifampin is necessary given Blood cultures cleared with vancomycin. Also, consideration for daptomycin 8-10 mg/kg IV q24h would be reasonable for ease of outpatient administration. 08/26: Random level this AM returned at 20.1 mcg/mL. According to AUC/SATYA calculation software, this level is therapeutic. However, there is some concern that level could quickly become supratherapeutic for the following reasons: elevated BMI and risk for accumulation which was seen with a previous regimen and random level being drawn only after 2 doses of current regimen which does not indicate steady state. Renal fxn appears stable. Over the last 5 days, serum creatinine has toggled between 0.98-1.13 mg/dL. Therefore, planning on reducing the vancomycin dose today to provide 5.8 mg/kg IV every 12 hours x 2 doses. Will recheck a random level in the AM. Goal trough is approximately 15 mcg/mL. Did attempt to have turbidity method performed on sputum culture to confirm a true Vanc SATYA of 2 but sample has been disposed after a weeks time. 08/25: JAY recommended, but respiratory compromise is still precluding it. Random vancomycin level this AM likely therapeutic, although changing renal function makes accurate estimation of AUC problematic. Patient does seem to be clearing vancomycin and had 1550 mL of charted UOP yesterday, with 550 mL thus far today. SCr is also mostly stable, only rising from 1.08 to 1.13 mg/dL over the last 24 hours. Will tentatively schedule two low doses of 7.8 mg/kg of vancomycin q12 x2 doses today. Random level with AM labs tomorrow. 08/24: Random vancomycin level this AM associated with a supratherapeutic AUC, despite level 48 hours earlier on same dose indicating a therapeutic AUC. SCr also beginning to rise again. Suspect reduced renal clearance is contributing to increase. Level decreased from 26.2 to 21.8 mcg/mL over 6.72 hours - equates to a t1/2 of 25 hr. Assuming stable renal function (which cannot be assumed), it's estimated that the level would fall to 15 mcg/mL at around 0200. Due to severity of illness (MRSA bacteremia), will therefore provide a small supplemental dose of vancomycin tonight as level may be subtherapeutic if hold off further vancomycin until tomorrow AM. Will obtain repeat random level with AM labs tomorrow. Plan Vancomycin * Current regimen: 1250 mg iv q 24 hours * Will continue current regimen for now - Random level this afternoon for vancomycin similar to yesterday, dosing appropriate to achieve AUC 400-600 * Will monitor closely for decreased clearance with gent/vanco combo Gentamicin * Random in AM to assess when to redose; Redose when level <1 Rifampin * 300 mg PO q8h is the appropriate/recommended dose for this indication Pharmacy will continue to follow and will adjust dose/frequency as necessary. Thank you.
[2022-08-31] MEDS: VANCOMYCIN HCL 1,250 MG in SODIUM CHLORIDE 0.9% 250 ML IV SCH (20:24)
[2022-08-31] MEDS: SIMVASTATIN 10 MG TAB PO SCH (20:26)
[2022-08-31] MEDS ORDERED: RIFAMPIN PO SCH (22:00)
[2022-09-01] MEDS: ACETAMINOPHEN 500 MG TAB PO SCH ×3 (02:19→17:15)
[2022-09-01] MEDS: traMADol HCL 50 MG TABLET PO PRN (04:28)
[2022-09-01] MEDS: LEVOTHYROXINE SODIUM 25 MCG TABLET PO SCH (05:54)
[2022-09-01] MEDS: RIFAMPIN PO SCH ×4 (05:54→20:54)
[2022-09-01] MEDS ORDERED: BENZONATATE 100 MG CAPSULE PO PRN (06:56)
[2022-09-01 08:13] LABS: Hematocrit (blood only) 32.8 % (37.0-47.0); Hemoglobin 10.5 g/dl (12.0-16.0); Mean Corpuscular Hemoglobin 31.4 pg (25.0-34.0); Mean Corpuscular Volume 98.2 fL (80.0-100.0); Mean Platelet Volume 10.7 fL (9.4-12.4); Platelet Count 320 K/uL (130-400); RDW Coefficient of Variation 15.9 % (11.5-14.5); RDW Standard Deviation 56.5 fL (36.4-46.3); Red Blood Count 3.34 M/uL (4.20-5.40); White Blood Count 7.41 K/ul (4.8-10.8)
[2022-09-01 08:42] LABS: BUN Creatinine Ratio 14.7 (10-20); Calcium 8.7 mg/dl (8.6-10.3); Creatinine Clr Calc Pharmacy 69.1 ml/min; Est GFR (African American) 63.2 ml/min; Est GFR (Non-African American) 54.5 ml/min; Potassium 3.6 mmol/L (3.5-5.1)
[2022-09-01] MEDS: HEPARIN SOD 5,000 UNIT/0.5 ML VIAL SQ SCH ×3 (08:42→20:54)
[2022-09-01] MEDS: METOPROLOL SUCC 25MG EXT REL TAB PO SCH (08:43)
[2022-09-01] MEDS: MAGNESIUM OXIDE 400 MG TAB PO SCH ×2 (08:43→20:38)
[2022-09-01] MEDS: FAMOTIDINE 10 MG TABLET PO SCH (08:43)
[2022-09-01] MEDS: CLOPIDOGREL BISULFATE 75 MG TAB PO SCH (08:44)
[2022-09-01] MEDS: TOPIRAMATE 25 MG TAB PO SCH ×2 (08:44→20:38)
[2022-09-01] MEDS: AMIODARONE 200 MG TAB PO SCH (08:44)
[2022-09-01] MEDS: PANTOprazole 40 MG TAB PO SCH ×2 (08:44→20:38)
[2022-09-01] MEDS: guaiFENesin 600 MG TABCR PO SCH ×2 (08:44→20:38)
[2022-09-01] MEDS: FLUTICASONE FUROATE 100MCG 14 PUFFS/INHALER INH SCH (08:45)
[2022-09-01] MEDS: TROLAMINE SALICYLATE 10% CRM 255 APPLN/85 GM TUBE EXT SCH ×2 (08:45→20:40)
--- NOTE | 2022-09-01 10:42 | Pharmacy Report ---
Pharmacy PK ABX Note - Date of Service September 01, 2022 - Assessment and Plan Assessment 09/01: Gentamicin: * Gentamicin random level obtained this morning is 0.65 mcg/ml. Last dose of Gentamicin was given at 01:38 AM on 08/31. * Since trough is now less than 1 mcg/ml, Gentamicin 1.5 mg/kg (used adjusted body wt) IV q24h ordered to start this AM. Dosing interval extended out from q12h to q24h. * A new trough Gent level is ordered for tomorrow AM before dose. Will re-assess dosing at this time. 08/31: Gent trough level before 3rd dose came back elevated, therefore dosing put on hold - repeat gent random level this afternoon still elevated however able to calculate clearance from 2 levels. Estimated that level will be less then <1 tomorrow AM. Will get random in AM to ensure when to redose. Likely will need interval extended out to q24hr. 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 Recommended dosing for gentamicin in treatment of MRSA endocarditis w/ prosthetic valve is 3 mg/kg/24 hours in 2-3 divided doses. eCrCl at this time is 58 mL/min, will utilize q12h dosing of gentamicin and obtain peak/trough tomorrow with third dose. 08/29 Random level this AM returned at 23.7 which is SUPRAtherapeutic. This is day 12 of vancomycin and the fourth day of vancomycin 750 mg IV q12. With this level, [employer] software was concerned for a poor fit with AUC monitoring. Therefore, obtained second level this AM to determine patient specific kinetics. This level was 22.1 about 4 hours after first level; this suggests a half-life of 40 hours. Renal function is stable. Due to acute accumulation + positive blood culture for MRSA, will schedule random level for 12 hours to further establish patient specific kinetics. 08/27: Random level this AM returned at 15.0 mcg/mL which is therapeutic. Renal fxn is stable. White count down to 11.5k. Today is Day #10 of Vancomycin since last negative blood cultures on 08/18/22. Discussed with hospitalist and no plans for a JAY anymore. Will await ID input on Monday (08/29/22) regarding duration of Vancomycin. Patient only met 2 minor Harrison criteria based upon presentation. If the plan is to empirically treat for prosthetic valve endocarditis, then do not believe synergy with gentamicin/rifampin is necessary given Blood cultures cleared with vancomycin. Also, consideration for daptomycin 8-10 mg/kg IV q24h would be reasonable for ease of outpatient administration. 08/26: Random level this AM returned at 20.1 mcg/mL. According to AUC/SATYA calculation software, this level is therapeutic. However, there is some concern that level could quickly become supratherapeutic for the following reasons: elevated BMI and risk for accumulation which was seen with a previous regimen and random level being drawn only after 2 doses of current regimen which does not indicate steady state. Renal fxn appears stable. Over the last 5 days, serum creatinine has toggled between 0.98-1.13 mg/dL. Therefore, planning on reducing the vancomycin dose today to provide 5.8 mg/kg IV every 12 hours x 2 doses. Will recheck a random level in the AM. Goal trough is approximately 15 mcg/mL. Did attempt to have turbidity method performed on sputum culture to confirm a true Vanc SATYA of 2 but sample has been disposed after a weeks time. 08/25: JAY recommended, but respiratory compromise is still precluding it. Random vancomycin level this AM likely therapeutic, although changing renal function makes accurate estimation of AUC problematic. Patient does seem to be clearing vancomycin and had 1550 mL of charted UOP yesterday, with 550 mL thus far today. SCr is also mostly stable, only rising from 1.08 to 1.13 mg/dL over the last 24 hours. Will tentatively schedule two low doses of 7.8 mg/kg of vancomycin q12 x2 doses today. Random level with AM labs tomorrow. 08/24: Random vancomycin level this AM associated with a supratherapeutic AUC, despite level 48 hours earlier on same dose indicating a therapeutic AUC. SCr also beginning to rise again. Suspect reduced renal clearance is contributing to increase. Level decreased from 26.2 to 21.8 mcg/mL over 6.72 hours - equates to a t1/2 of 25 hr. Assuming stable renal function (which cannot be assumed), it's estimated that the level would fall to 15 mcg/mL at around 0200. Due to severity of illness (MRSA bacteremia), will therefore provide a small supplemental dose of vancomycin tonight as level may be subtherapeutic if hold off further vancomycin until tomorrow AM. Will obtain repeat random level with AM labs tomorrow. Plan Vancomycin * Current regimen: 1250 mg iv q 24 hours * Will continue current regimen for now - Random level obtained 08/31/22 is stable. Dosing appropriate to achieve AUC 400-600 * Will monitor closely for decreased clearance with gent/vanco combo Gentamicin * Started on Gentamicin 135 mg (1.5 mg/kg, adjusted body wt) IV q24h. * Trough tomorrow AM to confirm dose is appropriate Rifampin * 300 mg PO q8h is the appropriate/recommended dose for this indication Pharmacy will continue to follow and will adjust dose/frequency as necessary. Thank you.
[2022-09-01] MEDS: ASPIRIN 81 MG CHEW PO SCH (11:01)
[2022-09-01] MEDS: ASCORBIC ACID 500 MG TAB PO SCH (11:03)
[2022-09-01] MEDS: FERROUS SULFATE 325 MG TAB PO SCH (11:04)
[2022-09-01] MEDS: DEXTROSE 5% IV SCH (11:13)
[2022-09-01] MEDS: GENTAMICIN SULFATE IV SCH (11:13)
[2022-09-01] MEDS: FUROSEMIDE 40 MG TAB PO SCH (11:13)
--- NOTE | 2022-09-01 14:19 | Hospitalist Progress Note ---
Date of Service September 01, 2022 Assessment & Plan (1) Sepsis due to pneumonia: (2) Staphylococcus aureus pneumonia: (3) Parainfluenza virus pneumonia: (4) S/P TAVR (transcatheter aortic valve replacement): (5) Osteoarthritis of left knee: (6) Morbid obesity: (7) Hypoxia: (8) COPD (chronic obstructive pulmonary disease): (9) CHF (congestive heart failure): (10) Dyslipidemia: (11) Paroxysmal atrial fibrillation: Plan 71-year-old female that was a direct transfer from [facility]. Patient was transferred to [facility] from local nursing facility after being found febrile with a temperature of 103 F. Patient was hypotensive at [facility] and started on Levophed. Chest x-ray there showed pulmonary congestion. Urinalysis at that time was negative. She was started on IV Vancomycin and cefepime there. Hypotension resolved on arrival and pressors were stopped. Septic shock secondary to MRSA pna, MRSA bacteremia +parainfluenza infection hx of bioprosthetic valve Chest CT suggestive of RLL PNA at [facility] blood cultures positive - 1 cultx positive for MRSA Vanco and Cefepime were started. Cefepime now stopped. Blood cultures obtained here (08/18) and negative Sputum cultx (08/18) positive for MRSA Biofire + for parainfluenza Lactate normal 1.[address] chest scan is abnormal CT chest 08/18/2022: Multinodular opacities appreciated bilaterally especially in the right upper right lower and left lower lobe. CT chest findings from outside the facility has limited images. Based on the limited images it seems that the patient most likely had septic emboli. Repeat blood cultx (08/24/2022) negative Given history of TAVR, bacteremia, TTE ordered LV is normal in size. Moderate concentric LVH. LV wall motion is normal. EF 65 to 70%. Grade 1 diastolic dysfunction. There is a bioprosthetic aortic valve. Prosthetic valve gradients have points of normal and slightly increased from prior study of March 2020. There is mild thickening of the posterior mitral valve leaflet similar to prior study in March 2022. Tricuspid valve is not well visualized. Cardiology consulted, however, patient is still requiring oxygen and doesn't appear stable enough for JAY which is currently being deferred. ID recommended need to empirically treat for endocarditis as we don't have a JAY. Based on ID recs, needs IV vanc, po rifampin till 10/04/22 and gentamicin for 2 weeks. Needs to f/u with ID outpatient in 3-5 weeks Patient has PICC line Left knee OA Flare: Left knee xray with osteopenia and advances OA, no fracture. This is consistent with OA flare. Cont with current supportive care efforts including scheduled Tylenol and PRN tramadol. CKD Stage III: Per Review of outpatient labs Cr has been 1.3 -1.5 Resume lasix Paroxysmal atrial fibrillation: Takes Metoprolol and Amiodarone; continue as per cardiology Not anticoagulated due to history of GI bleeding Chronic diastolic CHF due to valvular disease: S/p TAVR: Echo 03/2022-EF > 70%, grade 1 diastolic dysfunction, normal gradient for bioprosthetic aortic valve Appeared euvolemic on admission, no clear fluid overload Continue Plavix Lasix resumed Hypothyroidism: Chronic, stable. Takes Synthroid; continue History of migraines: Chronic, stable. Takes Topiramate; continue Sacral wound: Continue wound care Disposition: PCP: Dr. Ramirez Code Status: Full Code VTE Prophylaxis: Heparin SQ CM reports patient needs a new auth for dc to SNF I spent a total of 40 minutes coordinating, documenting and providing care for this patient excluding time spent in performance of separately billed services Admission and Anticipated Discharge Date Admission Date: August 18, 2022 Subjective Patient seen and examined Reports cough Denied chest pain so far today Reports mild dyspnea with exertion Denied a nausea, vomiting, abd pain, diarrhea Reports left knee pain is controlled. Sitting in chair Denied any fever, chills Denied any headache, dizziness Physical Exam Constitutional: + well hydrated and + obese; no acute distress Eyes: PERRL, conjunctivae normal, anicteric sclerae ENMT: external ear and nose normal, oropharynx normal Respiratory: normal respiratory effort; no respiratory distress +basilar crackles Cardiovascular: Rate/Rhythm: regular rate and regular rhythm S1 S2 Gastrointestinal (Abdomen): normal bowel sounds, soft, nontender, no hepatosplenomegaly Musculoskeletal: No pedal edema Psychiatric: A+Ox3, euthymic affect Results & Data Results & Data Vital Signs (Past 12 Hours) Vital Signs Temp Pulse Pulse Resp BP Pulse Ox O2 Del Method 09/01/22 11:25 36.4 C L 58 L 18 126/68 95 Room Air 09/01/22 08:00 Room Air 09/01/22 07:00 62 09/01/22 08:04 36.3 C L 72 18 138/63 92 Room Air 09/01/22 06:05 62 18 95 Room Air 09/01/22 03:15 36.7 C 66 20 146/63 H 94 Room Air Laboratory Results Abnormal lab results 09/01/22 Range/Units 07:41 RBC 3.34 L (4.20-5.40) M/uL Hgb 10.5 L (12.0-16.0) g/dl Hct 32.8 L (37.0-47.0) % RDW Std Deviation 56.5 H (36.4-46.3) fL RDW Coeff of Moni 15.9 H (11.5-14.5) % (9) CHF (congestive heart failure) Heart failure chronicity: chronic
[2022-09-01] MEDS: SIMVASTATIN 10 MG TAB PO SCH (20:38)
[2022-09-01] MEDS: DICLOFENAC SOD 1% GEL 100 GM TUBE EXT PRN (20:39)
[2022-09-01] MEDS: VANCOMYCIN HCL 1,250 MG in SODIUM CHLORIDE 0.9% 250 ML IV SCH (20:40)
[2022-09-02] MEDS: RIFAMPIN PO SCH (06:14)
[2022-09-02] MEDS: ACETAMINOPHEN 500 MG TAB PO SCH ×2 (06:14→11:25)
[2022-09-02] MEDS: LEVOTHYROXINE SODIUM 25 MCG TABLET PO SCH (06:14)
[2022-09-02] MEDS: COUGH DROP (SUGAR FREE) LOZ 24 LOZ/1 BOX BUCCAL PRN (06:18)
[2022-09-02 08:20] VITALS: O2SAT 95
[2022-09-02] MEDS: HEPARIN SOD 5,000 UNIT/0.5 ML VIAL SQ SCH (08:25)
[2022-09-02] MEDS: FUROSEMIDE 40 MG TAB PO SCH (08:27)
[2022-09-02] MEDS: METOPROLOL SUCC 25MG EXT REL TAB PO SCH (08:27)
[2022-09-02] MEDS: TOPIRAMATE 25 MG TAB PO SCH (08:27)
[2022-09-02] MEDS: PANTOprazole 40 MG TAB PO SCH (08:27)
[2022-09-02] MEDS: MAGNESIUM OXIDE 400 MG TAB PO SCH (08:28)
[2022-09-02] MEDS: CLOPIDOGREL BISULFATE 75 MG TAB PO SCH (08:28)
[2022-09-02] MEDS: FAMOTIDINE 10 MG TABLET PO SCH (08:28)
[2022-09-02] MEDS: AMIODARONE 200 MG TAB PO SCH (08:28)
[2022-09-02] MEDS: guaiFENesin 600 MG TABCR PO SCH (08:29)
[2022-09-02] MEDS: FLUTICASONE FUROATE 100MCG 14 PUFFS/INHALER INH SCH (08:29)
[2022-09-02] MEDS: DICLOFENAC SOD 1% GEL 100 GM TUBE EXT PRN (08:30)
[2022-09-02] MEDS: TROLAMINE SALICYLATE 10% CRM 255 APPLN/85 GM TUBE EXT SCH (08:31)
[2022-09-02] MEDS: traMADol HCL 50 MG TABLET PO PRN (08:43)
[2022-09-02] MEDS: ASPIRIN 81 MG CHEW PO SCH (08:43)
[2022-09-02 09:29] LABS: Creatinine Clr Calc Pharmacy 65.6 ml/min; Est GFR (African American) 59.6 ml/min; Est GFR (Non-African American) 51.5 ml/min
[2022-09-02] MEDS ORDERED: GENTAMICIN TROUGH SCH (10:00)
[2022-09-02] MEDS: DEXTROSE 5% IV SCH (11:13)
[2022-09-02] MEDS: GENTAMICIN SULFATE IV SCH (11:13)
[2022-09-02] MEDS: FERROUS SULFATE 325 MG TAB PO SCH (11:26)
[2022-09-02] MEDS: ASCORBIC ACID 500 MG TAB PO SCH (11:26)
[2022-09-02 12:03] VITALS: BP 115/65; TEMP 97.7
--- NOTE | 2022-09-02 12:45 | Discharge Summary ---
Date of Service September 02, 2022 Admission HPI Per Admitting Provider Ms. Celia Marshall is a 71-year-old female that was a direct transfer from [facility] that was arranged overnight. Patient was transferred to [facility] yesterday from local nursing facility after being found febrile with a temperature of 103. Patient appears septic with unclear source. Patient was hypotensive at [facility] and started on Levophed. Chest x-ray there showed pulmonary congestion. Urinalysis at that time was negative. She was started on IV Vancomycin and cefepime there. Patient was recently admitted to [facility] in May 26 - 06/14 with ambulatory dysfunction. Patient has extensive sacral ulcers and was transferred to a nursing facility upon discharge due to inability of caring for herself at home. Most recent echo 04/14; EF 70%, G1 DD X, bioprosthetic aortic valve. Additional past medical history includes CHF, CKD, A-fib, osteoarthritis, tobacco abuse, HLD, hypothyroidism. Initial lab work-up ordered to assist the ICU including procalcitonin, lactate, CMP, CBC, lipase, UA, Mg+ and Phos. Will repeat imaging. Initial admission to ICU as she requiring Levophed on arrival. This has been turned off since and she will likely be downgraded to PCU. Patient will be admitted for further evaluation and management. Discussed with boat carpenter mechanic directly. Please see A/P for further details. Admission Exam Per Admitting Provider Neuro: AAOx4, PERRLA, no aphagia, memory changes, CNII-XII grossly intact HEENT: head normocephalic, moist mucus membranes CV: S1/S2, (-) M/G/R, (-) edema, cap refill < 3 seconds Resp: Lungs CTA in all cobos. On RA GI: Abdomen S/NT/ND, Ax4 bowel sounds, (-) CVA tenderness Musculoskeletal: 5/5 B/L UE strength, 5/5 B/L LE strength. No gait disturbance Skin: (-) rashes , (-) erythema. Psych: euthymic mood Principal Diagnosis Septic shock MRSA pneumonia MRSA bacteremia Possible endocarditis Parainfluenza infection Discharge Exam Constitutional + well hydrated and + obese; no acute distress Eyes PERRL, conjunctivae normal, anicteric sclerae ENMT external ear and nose normal, oropharynx normal Respiratory normal respiratory effort; no respiratory distress diminished breath sounds. On room air Cardiovascular Rate/Rhythm: regular rate and regular rhythm S1 S2 Gastrointestinal (Abdomen) normal bowel sounds, soft, nontender, no hepatosplenomegaly Musculoskeletal No pedal edema Neurologic PERRL, EOMI, accommodation nl, no face palsy, no dysarthria Psychiatric A+Ox3, euthymic affect Discharge Data Allergies Allergy/AdvReac Type Severity Reaction Status Date / Time dog dander Allergy Intermediate Sneezing Verified 03/20/19 08:57 egg Allergy SPECIFIC-DUCK Verified 03/20/19 08:57 EGG CAUSED FACIAL SWELLING pollen extracts Allergy HAYFEVER Verified 03/20/19 08:57 methylprednisolone AdvReac Unknown Verified 03/20/19 08:57 [From Depo-Medrol] Consultations 08/18/22 10:20 Consult Newspaper Clipper Routine 08/18/22 16:02 HIM [Consult Health Information Management] Routine 08/19/22 10:58 Consult Infectious Diseases Routine 08/19/22 14:14 Consult Cardiology Routine 08/22/22 13:02 Consult Pulmonology Routine Ordered Studies 08/20/22 13:14 CT head/brain wo con Urgent Hospital Course (1) Sepsis due to pneumonia: (2) Staphylococcus aureus pneumonia: (3) Parainfluenza virus pneumonia: (4) S/P TAVR (transcatheter aortic valve replacement): (5) Osteoarthritis of left knee: (6) Morbid obesity: (7) Hypoxia: (8) COPD (chronic obstructive pulmonary disease): (9) CHF (congestive heart failure): (10) Dyslipidemia: (11) Paroxysmal atrial fibrillation: Plan 71-year-old female that was a direct transfer from [facility]. Patient was transferred to [facility] from local nursing facility after being found febrile with a temperature of 103 F. Patient was hypotensive at [facility] and started on Levophed. Chest x-ray there showed pulmonary congestion. Urinalysis at that time was negative. She was started on IV Vancomycin and cefepime there. Hypotension resolved on arrival and pressors were stopped. Septic shock secondary to MRSA pna, MRSA bacteremia +parainfluenza infection hx of bioprosthetic valve. Possible endocarditis Chest CT suggestive of RLL PNA at [facility] blood cultures positive - 1 culture positive for MRSA Vanco and Cefepime were started. Cefepime now stopped. Blood cultures obtained here (08/18) was negative Sputum cultx (08/18) positive for MRSA Biofire + for parainfluenza Lactate normal 1.[address] chest scan was abnormal CT chest 08/18/2022: Multinodular opacities appreciated bilaterally especially in the right upper right lower and left lower lobe. CT chest findings from outside the facility has limited images. Based on the limited images it seems that the patient most likely had septic emboli. Repeat blood culture (08/24/2022) negative Given history of TAVR, bacteremia, TTE ordered LV is normal in size. Moderate concentric LVH. LV wall motion is normal. EF 65 to 70%. Grade 1 diastolic dysfunction. There is a bioprosthetic aortic valve. Prosthetic valve gradients have points of normal and slightly increased from prior study of March 2020. There is mild thickening of the posterior mitral valve leaflet similar to prior study in March 2022. Tricuspid valve is not well visualized. Cardiology consulted but patient was still requiring oxygen and doesn't appear stable enough for JAY which is currently being deferred. ID recommended need to empirically treat for endocarditis as we don't have a JAY. Based on ID recs, needs IV vanc to maintain trough of 15-20, po rifampin till 10/04/22 and gentamicin for 2 weeks. Per pharm today, based on gentamycin level, recommend 100mg IV q24h starting tomorrow. Pharm at facility can adjust doses of vanc and gentamicin appropriately. Notified CM who communicated to facility. Needs to f/u with ID outpatient in 3-5 weeks Patient has PICC line Left knee OA Flare: Left knee xray with osteopenia and advances OA, no fracture. This is consistent with OA flare. Cont with current supportive care efforts including scheduled Tylenol and PRN tramadol. CKD Stage III: Per Review of outpatient labs Cr has been 1.3 -1.5 Paroxysmal atrial fibrillation: Takes Metoprolol and Amiodarone; continue as per cardiology Not anticoagulated due to history of GI bleeding Chronic diastolic CHF due to valvular disease: S/p TAVR: Echo 03/2022-EF > 70%, grade 1 diastolic dysfunction, normal gradient for bioprosthetic aortic valve Appeared euvolemic on admission, no clear fluid overload Continue Plavix, lasix Hypothyroidism: Chronic, stable. Takes Synthroid; continue History of migraines: Chronic, stable. Takes Topiramate; continue Sacral wound: Continue wound care Total Time Total Time Spent Total Time Spent (In Minutes): 60 Total Time Includes: Examination of the Patient, Discharge Planning and Medication Reconciliation Discharge Plan Discharge Items Patient Disposition: Transfer [facility] Fac Reason For Visit: SEPSIS, SEPTIC SHOCK Discharge Diagnosis: Septic shock MRSA pneumonia MRSA bacteremia Possible endocarditis Parainfluenza infection Activity: Resume your previous activity Non-emergency contact: Primary Care Provider Call non-emergency contact if: you have any medication questions Follow-up/Referrals: Rajesh Bryant MD [Physician] - Chana Stacy PA-C [Primary Care Provider] - Diet: Heart Healthy Addtl Attending Provider Instructions: Mrs Marshall You were transferred from [facility] where you were being managed for sepsis. You were managed for the above listed diagnoses. You are being discharged [place] for rehab. You are being discharged on the following medications: -IV vancomycin to be dosed by the Pharmacy there for goal trough of 15-20mcg/ml until 10/04/22 -Gentamycin to be dosed by pharm until 09/13/22 -Rifampin 300mg every 8hours until 10/04/22 Please ensure weekly labs (CMP and CBC while on IV antibiotics) You will need a repeat blood culture on 10/09/22 as recommended by Infectious Disease You also need to follow up with Infectious Disease Clinic in 3-5 weeks It was a pleasure taking care of you. Pending Studies at Discharge: No Stand-Alone Forms: My [facility] Skilled Items Patient informed of condition?: Yes DNR: No Discharge Level of Care: Skilled Communicable Disease: No Discharge Prognosis: Stable Lines: Mid-Line Urinary Catheter: No Medications and DC Order Prescriptions: New diclofenac sodium [Voltaren Arthritis Pain] 1 % Gel 2 g EXT QID PRN (Reason: Knee pain) Qty: 100 0RF guaifenesin [Mucinex] 600 mg Tablet Extended Release 12hr 600 mg PO Q12 Qty: 10 0RF Rifampin 300 mg PO Q8H Qty: 98 0RF Continued ipratropium-albuterol 0.5 mg-3 mg(2.5 mg base)/3 mL solution for nebulization 3 ml INHALATION Q6H PRN (Reason: Shortness Of Breath Or Wheezing) ketoconazole 2 % cream 1 applic TOPICAL BID PRN (Reason: Rash) famotidine 10 mg Tablet 10 mg PO DAILY Qty: 30 0RF amiodarone 200 mg tablet 200 mg PO QAM Qty: 30 0RF simvastatin 10 mg tablet 10 mg PO HS Qty: 30 0RF topiramate 25 mg tablet 25 mg PO BID Qty: 60 0RF clopidogrel 75 mg tablet 75 mg PO DAILY Qty: 30 0RF levothyroxine 25 mcg tablet 25 mcg PO DAILY Qty: 30 0RF magnesium oxide 400 mg (241.3 mg magnesium) Tablet 400 mg PO BID Qty: 60 0RF ascorbic acid (vitamin C) 500 mg tablet 250 mg PO DAILY@12 Qty: 30 0RF Rx Instructions: Take with ferrous sulfate. pantoprazole 40 mg Tablet,Delayed Release (Dr/Ec) 40 mg PO BID Qty: 60 0RF ferrous sulfate 325 mg (65 mg iron) tablet 325 mg PO DAILY@12 Qty: 30 0RF Rx Instructions: Take with lunch + ascorbic acid. aspirin 81 mg Tablet,Chewable 81 mg PO DAILY Qty: 30 0RF fluticasone propionate [Flovent HFA] 220 mcg/actuation Hfa Aerosol Inhaler 1 puff INHALATION BID Qty: 12 0RF furosemide 20 mg Tablet 40 mg PO QAM Qty: 60 0RF albuterol sulfate [Ventolin HFA] 90 mcg/actuation Hfa Aerosol Inhaler 2 puff INHALATION QID PRN (Reason: Shortness Of Breath Or Wheezing) Qty: 6.7 0RF metoprolol succinate 25 mg Capsule,Sprinkle,Er 24hr 25 mg PO QAM Qty: 30 0RF Changed tramadol 50 mg tablet 50 mg PO BID PRN (Reason: pain) Qty: 10 0RF acetaminophen [Tylenol Extra Strength] 500 mg Tablet 1,000 mg PO TID PRN (Reason: Pain) Qty: 30 0RF Discharge Orders: Discharge Order (Routine); Ordered 09/02/22 Ordered By: Paradise Carter Admission Data Admit Date/Time: 08/18/22 09:51 Attending Provider: Paradise Carter I. Admit Provider: Jitendra Rome Primary Care Provider: Chana Stacy Other Providers: Jitendra Rome ; [place], [place] ; Ochoa Franklin ; Thaddeus Corbett ; Rajesh Bryant ; Golden De Leon I. ; Ady Mitchell II ; Asia Schwartz ; Landon Chavez ; Javon Sow ; Clare Alvarez ; Cristiano Rae ; Darian Rodriguez ; Corrina Marie Other Interventions: Discharge Summary Assessment (RN) Last Done: 09/02/22 13:11
--- NOTE | 2022-09-02 14:16 | Pharmacy Report ---
Pharmacy PK ABX Note - Date of Service September 02, 2022 - Assessment and Plan Assessment 09/02: Gentamicin: * Gentamicin trough level = 1.15 mcg/ml (actual Cmin = 0.86 mcg/ml). Gentamicin peak level = 8.25 mcg/ml * Half-life = 7.15 hrs. * Since above levels were obtained after only one of Gentamicin 135 mg IV q24h, there is potential for accumulation of Gentamicin in this patient with high BMI. * Dosing was therefore reduced to Gentamicin 100 mg IV q24h. * This is predicted to result in a Peak level of 6 mcg/ml and Trough level of less than 0.6 mcg/ml at steady state. Goal trough is less than 1 mcg/ml. 09/01: Gentamicin: * Gentamicin random level obtained this morning is 0.65 mcg/ml. Last dose of Gentamicin was given at 01:38 AM on 08/31. * Since trough is now less than 1 mcg/ml, Gentamicin 1.5 mg/kg (used adjusted body wt) IV q24h ordered to start this AM. Dosing interval extended out from q12h to q24h. * A new trough Gent level is ordered for tomorrow AM before dose. Will re-assess dosing at this time. 08/31: Gent trough level before 3rd dose came back elevated, therefore dosing put on hold - repeat gent random level this afternoon still elevated however able to calculate clearance from 2 levels. Estimated that level will be less then <1 tomorrow AM. Will get random in AM to ensure when to redose. Likely will need interval extended out to q24hr. 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 Recommended dosing for gentamicin in treatment of MRSA endocarditis w/ prosthetic valve is 3 mg/kg/24 hours in 2-3 divided doses. eCrCl at this time is 58 mL/min, will utilize q12h dosing of gentamicin and obtain peak/trough tomorrow with third dose. 08/29 Random level this AM returned at 23.7 which is SUPRAtherapeutic. This is day 12 of vancomycin and the fourth day of vancomycin 750 mg IV q12. With this level, Halal[employer] software was concerned for a poor fit with AUC monitoring. Therefore, obtained second level this AM to determine patient specific kinetics. This level was 22.1 about 4 hours after first level; this suggests a half-life of 40 hours. Renal function is stable. Due to acute accumulation + positive blood culture for MRSA, will schedule random level for 12 hours to further establish patient specific kinetics. 08/27: Random level this AM returned at 15.0 mcg/mL which is therapeutic. Renal fxn is stable. White count down to 11.5k. Today is Day #10 of Vancomycin since last negative blood cultures on 08/18/22. Discussed with hospitalist and no plans for a JAY anymore. Will await ID input on Monday (08/29/22) regarding duration of Vancomycin. Patient only met 2 minor Harrison criteria based upon presentation. If the plan is to empirically treat for prosthetic valve endocarditis, then do not believe synergy with gentamicin/rifampin is necessary given Blood cultures cleared with vancomycin. Also, consideration for daptomycin 8-10 mg/kg IV q24h would be reasonable for ease of outpatient administration. 08/26: Random level this AM returned at 20.1 mcg/mL. According to AUC/SATYA calculation software, this level is therapeutic. However, there is some concern that level could quickly become supratherapeutic for the following reasons: elevated BMI and risk for accumulation which was seen with a previous regimen and random level being drawn only after 2 doses of current regimen which does not indicate steady state. Renal fxn appears stable. Over the last 5 days, serum creatinine has toggled between 0.98-1.13 mg/dL. Therefore, planning on reducing the vancomycin dose today to provide 5.8 mg/kg IV every 12 hours x 2 doses. Will recheck a random level in the AM. Goal trough is approximately 15 mcg/mL. Did attempt to have turbidity method performed on sputum culture to confirm a true Vanc SATYA of 2 but sample has been disposed after a weeks time. 08/25: JAY recommended, but respiratory compromise is still precluding it. Random vancomycin level this AM likely therapeutic, although changing renal function makes accurate estimation of AUC problematic. Patient does seem to be clearing vancomycin and had 1550 mL of charted UOP yesterday, with 550 mL thus far today. SCr is also mostly stable, only rising from 1.08 to 1.13 mg/dL over the last 24 hours. Will tentatively schedule two low doses of 7.8 mg/kg of vancomycin q12 x2 doses today. Random level with AM labs tomorrow. 08/24: Random vancomycin level this AM associated with a supratherapeutic AUC, despite level 48 hours earlier on same dose indicating a therapeutic AUC. SCr also beginning to rise again. Suspect reduced renal clearance is contributing to increase. Level decreased from 26.2 to 21.8 mcg/mL over 6.72 hours - equates to a t1/2 of 25 hr. Assuming stable renal function (which cannot be assumed), it's estimated that the level would fall to 15 mcg/mL at around 0200. Due to severity of illness (MRSA bacteremia), will therefore provide a small supplemental dose of vancomycin tonight as level may be subtherapeutic if hold off further vancomycin until tomorrow AM. Will obtain repeat random level with AM labs tomorrow. Plan Vancomycin * Vancomycin random level obtained today was 19.9 mcg/ml. Last dose given was vancomycin 1250 mg IV q24h yesterday at 21:00. * This is predicted to achieve target AUC/SATYA of 400-600 mg/L.hr * Predicted AUC at steady state: 488 mg/L.hr * Continue Vancomycin 1250 mg IV q24h. Gentamicin * See above. * Gentamicin dose adjusted down to 100 mg IV q24h based on peak and trough results today. * Plan to continue till 09/12/22 to complete 2 weeks of therapy. * Recommend checking a trough Gent level in 3 days. Rifampin * 300 mg PO q8h is the appropriate/recommended dose for this indication Pharmacy will continue to follow and will adjust dose/frequency as necessary. Thank you.
[2022-09-02 14:54] VITALS: PULSE 63
[2022-09-03] MEDS ORDERED: GENTAMICIN SULFATE 100 MG in DEXTROSE 5% 100 ML IV SCH (11:00)
== END 2022-09-02 15:24 | DRG 871 ==
LOC: 1E 09:51 → SUATTDRO 09:51 → 2E 08-21 05:26 → 3E 08-27 17:40 → 2N 08-30 13:30

== ENCOUNTER 2023-07-16 14:38 | Observation (INO) ==
--- OUTSIDE RECORDS SUMMARY | 2023-07-16 14:44 | External Medical Summary | Summary of Care ---
Author Name Unknown Organization [facility] Address [address] [place] [address] Phone [phone] Care Team Providers Care Manager Pet Name Role Phone Markell Linton MD Primary Care Provider [phone] Reason for Visit * Reason Onset Date Comments Advice 06/21/2023 Encounter Details Date Type Department Care Team (Late st Contact Info) Description 06/21/2023 [facility]phone [facility] [address] [place] [address] Markell Linton MD [address] [place] [address] Advice Allergies Active Allergy Reactions Criticality Noted Date Comments Azithromycin Medium 06/19/2023 Facial redness, swelling, itching, watery eyes Methylprednisolone Sodium Succ 12/06 Dog Dander Low 03/20/2019 Other reaction(s): Sneezing Food (See Comments) 02/23/2018 Duck eggs Swelling Pollen 08/25/2015 Nystatin 01/17/2019 Allergic reaction Pollen Extract 03/20/2019 Other reaction(s): HAYFEVER documented as of this encounter (statuses as of 06/30/2023) Medications Medication Sig Dispensed Refills Start Date End Date Status aspirin 81 MG chewable tablet Take 1 Tab by mouth daily. with food. 100 Tab 5 06/25/2019 Active vitamin c (ASCORBIC ACID) 250 MG Tablet DAILY@12 30 Tab 5 06/25/2019 Active Acetaminophen 325 MG Oral Tablet Take 500 mg by mouth every 6 hours as needed for Pain. 0 Active Ipratropium-Albuter ol 0.5-2.5 (3) MG/3ML Inhalation Solution (Duoneb) INHALE 1 VIAL EVERY 4 TO 6 HOURS NEEDED FOR WHEEZING 360 mL 2 07/17/2021 Active Compressor NebulizerIndication s:COPD, group C, by GOLD 2017 classification ([facility]) Inhale via nebulizer . Use as directed. 1 Each 1 04/21/2022 Active Pulse Oximeter Deluxe Use as directed . 1 Each 1 04/21/2022 Active Nebulizer/Tubing/Mo uthpiece KitIndications:COPD , group C, by GOLD 2017 classification ([facility]) Use to nebulize medicaitons 1 Kit 1 05/25/2022 Active Metoprolol Succinate ER 25 MG Oral Tablet Extended Release 24 Hour (toPROL XL) TAKE 1 TABLET BY MOUTH EVERY DAY IN THE MORNING 90 Tablet 2 09/01/2022 Active Diclofenac Sodium 1 % External Gel Apply topically to affected area 4 times a day as needed. 0 Active Furosemide 20 MG Oral Tablet (Lasix)Indications: Acute congestive heart failure, unspecified heart failure type ([facility]),PAULETTE (acute kidney injury) ([facility]) TAKE 2 TABLETS BY MOUTH EVERY MORNING 180 Tablet 1 03/08/2023 Active Ferrous Sulfate 325 (65 Fe) MG Oral Tablet (Feosol)Indications :Macrocytic anemia TAKE 1 TABLET BY MOUTH EVERY DAY AT 12 90 Tablet 3 03/08/2023 Active Magnesium Oxide 400 MG Oral TabletIndications:H ypomagnesemia Take 1 Tablet by mouth in the morning and 1 Tablet before bedtime. 180 Tablet 1 03/12/2023 Active Clopidogrel Bisulfate 75 MG Oral Tablet (pLAVix)Indications :Congestive heart failure due to valvular disease ([facility]) TAKE 1 TABLET BY MOUTH EVERY DAY IN THE MORNING 90 Tablet 3 03/21/2023 Active Pantoprazole Sodium 40 MG Oral Tablet Delayed Release (Protonix)Indicatio ns:Esophageal reflux Take 1 Tablet by mouth in the morning and 1 Tablet before bedtime. 180 Tablet 1 03/20/2023 Active Simvastatin 10 MG Oral Tablet (Zocor) TAKE 1 TABLET BY MOUTH EVERYDAY AT BEDTIME 90 Tablet 1 03/20/2023 Active Floranex Oral Tablet Take 2 Each by mouth in the morning and 2 Each before bedtime. 360 Tablet 3 03/21/2023 Active Amiodarone HCl 200 MG Oral Tablet (Cordarone)Indicati ons:Paroxysmal atrial fibrillation (HCC) Take 1 Tablet by mouth in the morning. 90 Tablet 3 03/21/2023 Active Levothyroxine Sodium 50 MCG Oral Tablet (Levoxyl)Indication s:Hypothyroidism, unspecified type Take 1 Tablet by mouth in the morning. on an empty stomach.. 90 Tablet 3 03/21/2023 Active Albuterol Sulfate HFA 108 (90 Base) MCG/ACT Inhalation Aerosol SolutionIndications :COPD, group C, by GOLD 2017 classification ([facility]),Asthma with irreversible airway obstruction, unspecified asthma severity, uncomplicated ([facility]) INHALE 2 PUFFS BY MOUTH EVERY 6 HOURS NEEDED FOR WHEEZING 54 g 1 04/02/2023 Active Tiotropium Barlow-Olodaterol 2.5-2.5 MCG/ACT Inhalation Aerosol Solution (Stiolto Respimat)Indication s:COPD, group C, by GOLD 2017 classification ([facility]) Inhale 2 Puffs by mouth in the morning. 4 g 3 04/05/2023 Active Additional Information Patient not taking.Reported on 06/19/2023 Famotidine 10 MG Oral Tablet (Heartburn Relief)Indications: Gastroesophageal reflux disease without esophagitis Take 1 Tablet by mouth in the morning. 90 Tablet 1 04/11/2023 Active traMADol HCl 50 MG Oral Tablet (Ultram)Indications :Bilateral primary osteoarthritis of knee Take 1 Tablet by mouth every 12 hours as needed for Pain, Moderate. 60 Tablet 0 05/16/2023 Active Riboflavin 400 MG Oral CapsuleIndications: Chronic daily headache Take 1 Capsule by mouth in the morning. 90 Capsule 1 06/08/2023 Active Additional Information Patient not taking.Reported on 06/19/2023 Ketoconazole 2 % External Cream APPLY TOPICALLY TO AFFECTED AREA 2 TIMES A DAY FOR 14 DAYS. APPLY TO AFFECTED AREA AFTER DRYING SKIN 60 g 2 06/08/2023 Active Topiramate 50 MG Oral Tablet (Topamax)Indication s:Chronic daily headache One tab morning, one tab mid day and half tab at bedtime for migraine prevention 225 Tablet 1 06/12/2023 Active Additional Information Patient taking differently: 25 mg Oral TID(AM/NOON/HS), One tab morning, one tab mid day and half tab at bedtime for migraine prevention, Reported on 06/19/2023 Flovent HFA 110 MCG/ACT Inhalation AerosolIndications: COPD, group C, by GOLD 2017 classification ([facility]) 1 puff each morning 36 g 1 06/08/2023 4 Discontinu ed(Refill) documented as of this encounter (statuses as of 06/30/2023) Active Problems Problem Noted Date Diagnosed Date Chronic heart failure with preserved ejection fr action 06/19/2023 PAULETTE (acute kidney injury) 06/06/2022 Chronic kidney disease, stage 3b 01/31/2022 Overview: Per CKD protocol Class 3 severe obesity with serious comorbidity and body mass index (BMI) of 50.0 to 59.9 in adult 01/14/2022 Multifocal pneumonia 06/10/2019 Macrocytic anemia 06/10/2019 S/P TAVR (transcatheter aortic valve replacement ) 05/09/2019 Dyslipidemia 12/17/2018 [address]hma with irreversible air way obstruction, unspecified asthma severity, uncomplicated 11/06/2018 Congestive heart failure due to valvular disease 11/06/2018 Paroxysmal atrial fibrillation 11/06/2018 COPD, group C, by GOLD 2017 classification 10/01 Overview: Per COPD GOLD Classification MEDICATION USE AGREEMENT 11/25/2016 Gastroesophageal reflux disease without esophagi tis 08/13/2015 Tobacco use 08/20/2014 Dyslipidemia, goal LDL below 100 04/01/2013 Arthritis of knee Aortic stenosis Morbid obesity documented as of this encounter (statuses as of 06/30/2023) Resolved Problems Problem Noted Date Diagnosed Date Resolved Date Chronic kidney disease, stage 3a 11/02/2020 02/03/2022 Overview: Per CKD protocol Morbid obesity with body mas s index (BMI) of 45.0 to 49.9 in adult 11/14/2019 10/28/2020 S/P TAVR (transcatheter aort ic valve replacement) 06/10/2019 06/19/2019 Thrombocytopenia 06/10/2019 06/19/2019 Septic shock 06/05/2019 06/19/2019 Morbid obesity with body mas s index (BMI) of 45.0 to 49.9 in adult 02/08/2019 07/04/2019 Class 2 severe obesity due t o excess calories with serious comorbidity and body mass index (BMI) of 38.0 to 38.9 in adult 11/06/2018 9 COPD, severity to be determined 02/23/2018 10/03/2018 Overview: Per COPD GOLD Classification Body mass index (BMI) of 40. 0 to 44.9 in adult 01/29/2018 02/08/2019 Overview: Per Obesity protocol #1 Shingles 08/13/2015 01/25/2017 Dyslipidemia, goal to be determined 04/01/2013 Esophageal reflux 08/13/2015 documented as of this encounter (statuses as of 06/30/2023) Immunizations Name Administration Dates Next Due Pneumococcal Conjugate Vacc, 13 Valent (Prevnar) 11/25/2016 Pneumococcal Polysaccharide PPV23 (Pneumovax) Seasonal Influenza, Split, IIV3, With Preserve, Inj 03/12/2013 TDAP (age 10 and older)(Boostrix) 07/02/2013 documented as of this encounter Social History Tobacco Use Types Packs/Day Years Used Date Smoking Tobacco: Former Cigarettes 0.5 30 0 06/18/1988 - 06/18/2018 Smokeless Tobacco: Never Alcohol Use Standard Drinks/Week Comments No 0 (1 standard drink = 0.6 oz pur e alcohol) PHQ-2 Answer Date Recorded PHQ-2 Score 0 12/08/2019 Sex and Gender Information Value Date Recorded Sex Assigned at Not on file Gender Identity Not on file Sexual Orientation Straight 11/05/2020 11 :48 AM EDT Job Start Date Occupation Industry Not on file Not on file Not on file documented as of this encounter Functional Status Functional Status Response Date of Assess ment Are you deaf or do you have serious difficulty h earing? No 06/05/2019 Are you blind or do you have serious difficulty seeing, even when wearing glasses? No 06/05/2019 Do you have serious difficul ty walking or climbing stairs? (5 years old or older) Yes 06/05/2019 Do you have difficulty dress ing or bathing? (5 years old or older) No 06/05/2019 Because of a physical, menta l, or emotional condition, do you have difficulty doing errands alone such as visiting a doctor s office or shopping? (15 years old or older) Yes 06/05/19 20 Cognitive Status Response Date of Assessm ent Because of a physical, menta l, or emotional condition, do you have serious difficulty concentrating, remembering, or making decisions? (5 years old or older) No 06/05/2019 documented as of this encounter Miscellaneous Notes * Telephone Encounter - Ashley Sanches LPN - 06/30/2023 2:46 PM EST Called and spoke with patients sister and she is aware of information from Dr. Linton * Telephone Encounter - Markell Linton MD - 06/30/2023 1:56 PM EST Okay to keep current appointment. If worsening cough/SOB or increasing weight should be seen sooner. Markell Linton MD * Telephone Encounter - Sarah Carmen LPN - 06/30/2023 12:04 PM EST Called and spoke with pt's sister. She states that pt has maintained a steady weight. Still having the cough that was discussed with cardiology, but not nearly as bad - pt able to sleep at night now. Will take pt for blood work hopefully Monday Do you want to see pt sooner than current scheduled appt? * Telephone Encounter - Sabrina Pacheco LPN - 06/28/2023 8:26 AM EST Attempted to call patient. No voicemail * Telephone Encounter - Ashley Sanches LPN - 06/26/2023 5:47 PM EST Attempted to call Bob back, no answer and the phone continued to ring with no voicemail. Second home phone listed on patients chart states it is no longer in service. Will attempt to call bob at a later time. * Telephone Encounter - Markell Linton MD - 06/26/2023 5:07 PM EST Reviewed cardiology notes. Recommend patient be seen in office by any provider to determine if further imaging is required. If weight continues to increase can continue 60 mg lasix daily. She should have lab work completed to monitor renal function. This is ordered and [facility] Markell Linton MD * Telephone Encounter - Marina Blue OSA - 06/26/2023 9:03 AM EST Sister states that on Monday patient weighed 251 and today she has gained a few pounds but is back on the 2 lasix. Cardiology referred back to PCP if symptoms do not improve. Asking if she should be seen or what to do. * Telephone Encounter - Sarah Carmen LPN - 06/21/2023 11:50 AM EST This was discussed with cardiology this morning * Telephone Encounter - Precious Leigh OSA - 06/21/2023 11:19 AM EST Pt's sister Bob called & is requesting a script from the MD to read Furosemide 20 mg tablet to take 3 a day for the next 3 days . Please contact pt's sister Bob when complete documented in this encounter Plan of Treatment Upcoming Encounters Date Type Department Care Team (Late st Contact Info) Description 08/30/2023 8:30 AM EDT Laboratory Laboratory, [place] [address] [facility] [place] [address] [place] [id number] [facility] [address] 09/05/2023 8:15 AM EDT Cardiac Studies Cardiac Studies, [facility] [address] [place] [address] 09/06/2023 8:20 AM EDT Office Visit [facility], [place] [address] [facility] [id number] August, Markell Heller MD [address] [facility] [address] Health Maintenance Due Date Last Done Comments Alpha-1 Antitrypsin 1966 Mammogram 1988 Cologuard 1993 Fecal Occult Blood Test 1993 Sigmoidoscopy 1993 Zoster Vaccines (1 of 2) 1998 Pneumococcal Vaccine: 65+ Years (3 of 3 - PPSV23 or PCV20) 07/02/2018 11/25/2016, 07/02/2013 *ADVANCE DIRECTIVE NOT ON FILE 10/06/2018 Depression Screening 12/07/2020 12/08/2019 DXA Scan 06/06/2021 06/06/2014 CKD PHOS USE SMARTSET 63502 11/17/2021 11/17/2020 COVID-19 Vaccine (1 - 2022- season) 2022 Influenza Vaccine (FLU shot) (#1) 2022 03/12/2013 Albumin/Creatinine Ratio 01/14/2023 01/14/2022 DTaP,Tdap,and Td Vaccines (2 - Td or Tdap) 07/03/2023 07/02/2013 GFR 09/06/2023 03/08/2023, 05/2 06/2022, 04/26/2022, Additional history exists CKD HGB USE SMARTSET 65255 03/08/202403/08, 09/13/2022, 04/26/2022, Additional history exists TSH 03/08/2024 03/08/2023, 07/0 10/2020, 05/09/2019, Additional history exists O2 ASSESSMENT COMPLETED IN PAST YEAR FOR COPD 06/08/2024 06/08/2023 Lipid Panel 04/26/2027 04/26/2022, 07/0 10/2020, 11/25/2016, Additional history exists Colonoscopy 07/18/2028 07/18/2018 Colorectal Cancer Screening 07/18/2028 GARDASIL-HPV IMMUNIZATION SERIES Aged Out No longer eligible based on patient's age to complete this topic Hepatitis B Aged Out No longer eligi ble based on patient's age to complete this topic MENINGOCOCCAL (MENACTRA/MENVEO) Aged Out No longer eligible based on patient's age to complete this topic documented as of this encounter Medical Devices Not on filedocumented as of this encounter Advance Directives Documents on File Type Date Recorded 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 Question Answer Comments Discussion of Advance Directives occurred with: Patient Code Status History Code Status Date Activated Date Inactivated Comments Full Code 05/09/2019 3:04 PM 05/21/2019 12:56 PM This order reflects the patients wishes and were consensually agreed upon. Care Teams Manager Pet Relationship Specialty Start Date End Date August, Markell Heller MD [address] [facility] [place] [address] PCP - General Family Medicine 03/30/23 documented as of this encounter
--- OUTSIDE RECORDS SUMMARY | 2023-07-16 14:44 | External Medical Summary | Summary of Care ---
Author Name Unknown Organization [facility] Address [address] [place] [address] Phone [phone] Care Team Providers Care Projects Manager Name Role Phone Markell Linton MD Primary Care Provider [phone] Reason for Visit * Reason Onset Date Comments Advice 06/21/2023 Encounter Details Date Type Department Care Team (Late st Contact Info) Description 06/21/2023 Telephone [facility] [address] [place] [address] Markell Linton MD [address] [place] [address] Advice Allergies Active Allergy Reactions [...] s:COPD, group C, by GOLD 2017 classification ([facility]) Inhale via nebulizer . Use as directed. 1 Each 1 04/21/2022 Active Pulse Oximeter Deluxe Use as directed . 1 Each 1 04/21/2022 Active Nebulizer/Tubing/Mo uthpiece KitIndications:COPD , group C, by GOLD 2017 classification ([facility]) Use to nebulize medicaitons 1 Kit 1 [...] congestive heart failure, unspecified heart failure type ([facility]),PAULETTE (acute kidney injury) ([facility]) TAKE 2 TABLETS BY MOUTH EVERY MORNING [...] :Congestive heart failure due to valvular disease ([facility]) TAKE 1 TABLET BY MOUTH EVERY DAY [...] :COPD, group C, by GOLD 2017 classification ([facility]),Asthma with irreversible airway obstruction, unspecified asthma severity, uncomplicated ([facility]) INHALE 2 PUFFS BY MOUTH EVERY 6 HOURS NEEDED FOR WHEEZING 54 g 1 04/02/2023 Active Tiotropium Aurora-Olodaterol 2.5-2.5 MCG/ACT Inhalation Aerosol Solution (Stiolto Respimat)Indication s:COPD, group C, by GOLD 2017 classification ([facility]) Inhale 2 Puffs by mouth in the [...] COPD, group C, by GOLD 2017 classification ([facility]) 1 puff each morning 36 g 1 [...] encounter Miscellaneous Notes * Telephone Encounter - Markell Linton MD [...] [facility] Markell Linton MD * Telephone Encounter - [...] Description 08/30/2023 8:30 AM EDT [facility] [place] [address] [facility] [place] [id number] [facility] [address] [facility] [place] [address] 09/05/2023 8:15 AM EDT Cardiac Studies Cardiac Studies, [facility] [address] [facility] [place] [address] 09/06/2023 8:20 AM EDT Office Visit [facility] [place] [address] [place] [address] August, Markell Heller MD [address] [place] [address] Health Maintenance Due Date Last Done Comments Alpha-1 Antitrypsin 1966 Mammogram 1988 Cologuard 1993 Fecal Occult Blood Test 1993 Sigmoidoscopy 1993 Zoster Vaccines (1 of 2) 1998 Pneumococcal Vaccine: 65+ Years (3 of 3 - PPSV23 or PCV20) 07/02/2018 11/25/2016, 07/02/2013 *ADVANCE DIRECTIVE NOT ON FILE 10/06/2018 Depression Screening 12/07/2020 12/08/2019 DXA Scan 06/06/2021 06/06/2014 CKD PHOS USE SMARTSET 85887 11/17/2021 11/17/2020 COVID-19 Vaccine (1 - season) 2022 Influenza Vaccine (FLU shot) (#1) 2022 03/12/2013 Albumin/Creatinine Ratio 01/14/2023 01/14/2022 DTaP,Tdap,and Td Vaccines (2 - Td or Tdap) 07/03/2023 07/02/2013 GFR 09/06/2023 03/08/2023, 05/2 06/2022, 04/26/2022, Additional history exists CKD HGB USE SMARTSET 14284 03/08/202403/08, 09/13/2022, 04/26/2022, Additional history exists TSH [...] Documents on File Type Date Recorded Patient 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 Care Teams Projects Manager Relationship Specialty Start Date End Date August, Markell Heller MD [address] [place] [address] PCP - General Family Medicine 03/30/23 documented as of this encounter
--- OUTSIDE RECORDS SUMMARY | 2023-07-16 14:44 | External Medical Summary | Summary of Care ---
Author Name Unknown Organization [facility] Address [address] [place] [address] Phone [phone] Care Team Providers Care Child Care Aide Name Role Phone Markell Linton MD Primary Care Provider [phone] Reason for Visit * Reason Onset Date Comments Medication Refill 06/27/2023 Encounter Details Date Type Department Care Team (Late st Contact Info) Description 06/27/2023 Telephone [facility] [address] [place] [address] Markell Linton MD [address] [place] [address] Medication Refill Allergies Active Allergy Reactions Criticality Noted Date Comments Azithromycin Medium 06/19/2023 Facial redness, swelling, itching, watery eyes Methylprednisolone Sodium Succ 12/06 Dog Dander Low 03/20/2019 Other reaction(s): Sneezing Food (See Comments) 02/23/2018 Duck eggs Swelling Pollen 08/25/2015 Nystatin 01/17/2019 Allergic reaction Pollen Extract 03/20/2019 Other reaction(s): HAYFEVER documented as of this encounter (statuses as of 06/29/2023) Medications Medication Sig Dispensed Refills Start Date [...] s:COPD, group C, by GOLD 2017 classification ([facility]) Inhale via nebulizer . Use as directed. 1 Each 1 04/21/2022 Active Pulse Oximeter Deluxe Use as directed . 1 Each 1 04/21/2022 Active Nebulizer/Tubing/Mo uthpiece KitIndications:COPD , group C, by GOLD 2017 classification ([facility]) Use to nebulize medicaitons 1 Kit 1 [...] congestive heart failure, unspecified heart failure type ([facility]),PAULETTE (acute kidney injury) ([facility]) TAKE 2 TABLETS BY MOUTH EVERY MORNING [...] :Congestive heart failure due to valvular disease ([facility]) TAKE 1 TABLET BY MOUTH EVERY DAY [...] :COPD, group C, by GOLD 2017 classification ([facility]),Asthma with irreversible airway obstruction, unspecified asthma severity, uncomplicated ([facility]) INHALE 2 PUFFS BY MOUTH EVERY 6 HOURS NEEDED FOR WHEEZING 54 g 1 04/02/2023 Active Tiotropium Convent-Olodaterol 2.5-2.5 MCG/ACT Inhalation Aerosol Solution (Stiolto Respimat)Indication s:COPD, group C, by GOLD 2017 classification ([facility]) Inhale 2 Puffs by mouth in the [...] bedtime for migraine prevention, Reported on 06/19/2023 Fluticasone Propionate HFA 110 MCG/ACT Inhalation AerosolIndications: COPD, group C, by GOLD 2017 classification ([facility]) 1 puff each morning 36 g 1 06/29/2023 Active Flovent HFA 110 MCG/ACT Inhalation AerosolIndications: COPD, group C, by GOLD 2017 classification ([facility]) 1 puff each morning 36 g 1 06/08/2023 4 Discontinu ed(Refill) documented as of this encounter (statuses as of 06/29/2023) Active Problems Problem Noted Date Diagnosed Date [...] as of this encounter (statuses as of 06/29/2023) Resolved Problems Problem Noted Date Diagnosed Date [...] as of this encounter (statuses as of 06/29/2023) Immunizations Name Administration Dates Next Due Pneumococcal [...] Telephone Encounter - Ashley Sanches LPN - 06/29/2023 11:06 AM EST Called and spoke with patient and she is agreeable to to using the Generic. * Telephone Encounter - Chana Stacy PA-C - 06/28/2023 12:31 PM EST Please see if patient is willing to use generic Chana Stacy PA-C * Telephone Encounter - Lydia May LPN - 06/27/2023 7:43 AM EST Received fax from pharmacy the Flovent HFA is no longer covered as brand name. Please send a new RXwith an alternative. Thanks documented in this encounter Plan of Treatment Upcoming Encounters Date Type Department Care Team (Late st Contact Info) Description 08/30/2023 8:30 AM EDT [facility] [place] [address] [facility] [phone] [place] [address] [facility] [address] 09/05/2023 8:15 AM EDT Cardiac Studies Cardiac Studies, [facility] [address] [facility] [place] [address] 09/06/2023 8:20 AM EDT Office Visit [facility] [address] [facility] [address] August, Markell Heller MD [address] [place] [address] Health Maintenance Due Date Last Done Comments Alpha-1 Antitrypsin 1966 Mammogram 1988 Cologuard 1993 Fecal Occult Blood Test 1993 Sigmoidoscopy 1993 Zoster Vaccines (1 of 2) 1998 Pneumococcal Vaccine: 65+ Years (3 of 3 - PPSV23 or PCV20) 07/02/2018 11/25/2016, 07/02/2013 *ADVANCE DIRECTIVE NOT ON FILE 10/06/2018 Depression Screening 12/07/2020 12/08/2019 DXA Scan 06/06/2021 06/06/2014 CKD PHOS USE SMARTSET 43289 11/17/2021 11/17/2020 COVID-19 Vaccine ( - season) 2022 Influenza Vaccine (FLU shot) (#1) 2022 03/12/2013 Albumin/Creatinine Ratio 01/14/2023 01/14/2022 DTaP,Tdap,and Td Vaccines (2 - Td or Tdap) 07/03/2023 07/02/2013 GFR 09/06/2023 03/08/2023, 05/2 06/2022, 04/26/2022, Additional history exists CKD HGB USE SMARTSET 17384 03/08/202403/08, 09/13/2022, 04/26/2022, Additional history exists TSH [...] Not on filedocumented as of this encounter Visit Diagnoses Diagnosis COPD, group C, by GOLD 2017 classification (HCC) documented in this encounter Advance Directives Documents on File Type Date Recorded Patient Manager Landscape Expl anation Power of Applications Architect 04/06/2023 POWER OF A TTORNEY Latest Code [...] and were consensually agreed upon. Care Teams Child Care Aide Relationship Specialty Start Date End Date August, Markell Heller MD [address] [place] [address] PCP - General Family Medicine 03/30/23 documented as of this encounter
--- OUTSIDE RECORDS SUMMARY | 2023-07-16 14:44 | External Medical Summary | Summary of Care ---
Author Name Unknown Organization [facility] Address [address] [place] [address] Phone [phone] Care Team Providers Care Sanitarian Name Role Phone Markell Linton MD Primary Care Provider [phone] Reason for Visit * Reason Onset Date Comments Advice 06/21/2023 Encounter Details Date Type Department Care Team (Late st Contact Info) Description 06/21/2023 Telephone [facility] [address] [place] [address] Markell Linton MD [address] [place] [address] Advice Allergies Active Allergy Reactions Criticality Noted Date Comments Azithromycin Medium 06/19/2023 Facial redness, swelling, itching, watery eyes Methylprednisolone Sodium Succ 12/06 Dog Dander Low 03/20/2019 Other reaction(s): Sneezing Food (See Comments) 02/23/2018 Duck eggs Swelling Pollen 08/25/2015 Nystatin 01/17/2019 Allergic reaction Pollen Extract 03/20/2019 Other reaction(s): HAYFEVER documented as of this encounter (statuses as of 06/26/2023) Medications Medication Sig Dispensed Refills Start Date End Date Status aspirin 81 MG chewable tablet Take 1 Tab by mouth daily. with food. 100 Tab 5 06/25/2019 Active vitamin c (ASCORBIC ACID) 250 MG Tablet DAILY@12 30 Tab 5 06/25/2019 Active Acetaminophen 325 MG Oral Tablet Take 500 mg by mouth every 6 hours as needed for Pain. 0 Active Ipratropium-Albutero l 0.5-2.5 (3) MG/3ML Inhalation Solution (Duoneb) INHALE 1 VIAL EVERY 4 TO 6 HOURS NEEDED FOR WHEEZING 360 mL 2 07/17/2021 Active Compressor NebulizerIndications :COPD, group C, by GOLD 2017 classification ([facility]) Inhale via nebulizer . Use as directed. 1 Each 1 04/21/2022 Active Pulse Oximeter Deluxe Use as directed . 1 Each 1 04/21/2022 Active Nebulizer/Tubing/Yecenia thpiece KitIndications:COPD, group C, by GOLD 2017 classification ([facility]) Use to nebulize medicaitons 1 Kit 1 05/25/2022 Active Metoprolol Succinate ER 25 MG Oral Tablet Extended Release 24 Hour (toPROL XL) TAKE 1 TABLET BY MOUTH EVERY DAY IN THE MORNING 90 Tablet 2 09/01/2022 Active Diclofenac Sodium 1 % External Gel Apply topically to affected area 4 times a day as needed. 0 Active Furosemide 20 MG Oral Tablet (Lasix)Indications:A cute congestive heart failure, unspecified heart failure type ([facility]),PAULETTE (acute kidney injury) ([facility]) TAKE 2 TABLETS BY MOUTH EVERY MORNING 180 Tablet 1 03/08/2023 Active Ferrous Sulfate 325 (65 Fe) MG Oral Tablet (Feosol)Indications: Macrocytic anemia TAKE 1 TABLET BY MOUTH EVERY DAY AT 12 90 Tablet 3 03/08/2023 Active Magnesium Oxide 400 MG Oral TabletIndications:Hy pomagnesemia Take 1 Tablet by mouth in the morning and 1 Tablet before bedtime. 180 Tablet 1 03/12/2023 Active Clopidogrel Bisulfate 75 MG Oral Tablet (pLAVix)Indications: Congestive heart failure due to valvular disease ([facility]) TAKE 1 TABLET BY MOUTH EVERY DAY IN THE MORNING 90 Tablet 3 03/21/2023 Active Pantoprazole Sodium 40 MG Oral Tablet Delayed Release (Protonix)Indication s:Esophageal reflux Take 1 Tablet by mouth in [...] Active Amiodarone HCl 200 MG Oral Tablet (Cordarone)Indicatio ns:Paroxysmal atrial fibrillation (HCC) Take 1 Tablet by mouth in the morning. 90 Tablet 3 03/21/2023 Active Levothyroxine Sodium 50 MCG Oral Tablet (Levoxyl)Indications :Hypothyroidism, unspecified type Take 1 Tablet by mouth in the morning. on an empty stomach.. 90 Tablet 3 03/21/2023 Active Albuterol Sulfate HFA 108 (90 Base) MCG/ACT Inhalation Aerosol SolutionIndications: COPD, group C, by GOLD 2017 classification ([facility]),Asthma with irreversible airway obstruction, unspecified asthma severity, uncomplicated ([facility]) INHALE 2 PUFFS BY MOUTH EVERY 6 HOURS NEEDED FOR WHEEZING 54 g 1 04/02/2023 Active Tiotropium [place]-Olodaterol 2.5-2.5 MCG/ACT Inhalation Aerosol Solution (Stiolto Respimat)Indications :COPD, group C, by GOLD 2017 classification ([facility]) Inhale 2 Puffs by mouth in the morning. 4 g 3 04/05/2023 Active Additional Information Patient not taking.Reported on 06/19/2023 Famotidine 10 MG Oral Tablet (Heartburn Relief)Indications:G astroesophageal reflux disease without esophagitis Take 1 Tablet by mouth in the morning. 90 Tablet 1 04/11/2023 Active traMADol HCl 50 MG Oral Tablet (Ultram)Indications: Bilateral primary osteoarthritis of knee Take 1 Tablet by mouth every 12 hours as needed for Pain, Moderate. 60 Tablet 0 05/16/2023 Active Riboflavin 400 MG Oral CapsuleIndications:C hronic daily headache Take 1 Capsule by mouth in the morning. 90 Capsule 1 06/08/2023 Active Additional Information Patient not taking.Reported on 06/19/2023 Ketoconazole 2 % External Cream APPLY TOPICALLY TO AFFECTED AREA 2 TIMES A DAY FOR 14 DAYS. APPLY TO AFFECTED AREA AFTER DRYING SKIN 60 g 2 06/08/2023 Active Flovent HFA 110 MCG/ACT Inhalation AerosolIndications:C OPD, group C, by GOLD 2017 classification ([facility]) 1 puff each morning 36 g 1 06/08/2023 Active Topiramate 50 MG Oral Tablet (Topamax)Indications :Chronic daily headache One tab morning, one tab mid day and half tab at bedtime for migraine prevention 225 Tablet 1 06/12/2023 Active Additional Information Patient taking differently: 25 mg Oral TID(AM/NOON/HS), One tab morning, one tab mid day and half tab at bedtime for migraine prevention, Reported on 06/19/2023 documented as of this encounter (statuses as of 06/26/2023) Active Problems Problem Noted Date Diagnosed Date [...] as of this encounter (statuses as of 06/26/2023) Resolved Problems Problem Noted Date Diagnosed Date [...] as of this encounter (statuses as of 06/26/2023) Immunizations Name Administration Dates Next Due Pneumococcal [...] (15 years old or older) Yes 06/05/19 Cognitive Status Response Date of Assessm ent [...] [facility] Markell Linton MD * Telephone Encounter [...] Description 08/30/2023 8:30 AM EDT Laboratory Laboratory, [place] [address] [place] [id number] [facility] [address], [place] [id number] 09/05/2023 8:15 AM EDT Cardiac Studies Cardiac Studies, [facility] [address] [facility] [place] [address] 09/06/2023 8:20 AM EDT Office Visit Family Practice, [place] [address] [place] [address] AugustMarkell MD [address] [place] [address] Health Maintenance Due Date Last Done Comments Alpha-1 Antitrypsin 1966 Mammogram 1988 Cologuard 1993 Fecal Occult Blood Test 1993 Sigmoidoscopy 1993 Zoster Vaccines (1 of 2) 1998 Pneumococcal Vaccine: 65+ Years (3 of 3 - PPSV23 or PCV20) 07/02/2018 11/25/2016, 07/02/2013 *ADVANCE DIRECTIVE NOT ON FILE 10/06/2018 Depression Screening 12/07/2020 12/08/2019 DXA Scan 06/06/2021 06/06/2014 CKD PHOS USE SMARTSET 66605 11/17/2021 11/17/2020 COVID-19 Vaccine ( - season) 2022 Influenza Vaccine (FLU shot) (#1) 2022 03/12/2013 Albumin/Creatinine Ratio 01/14/2023 01/14/2022 DTaP,Tdap,and Td Vaccines (2 - Td or Tdap) 07/03/2023 07/02/2013 GFR 09/06/2023 03/08/2023, 08/23, 04/26/2022, Additional history exists CKD HGB USE SMARTSET 05544 03/08/202403/08, 09/13/2022, 04/26/2022, Additional history exists TSH [...] Documents on File Type Date Recorded Patient Cosmetician Expl anation Power of Director Prison 04/06/2023 POWER OF A TTORNEY Latest Code [...] and were consensually agreed upon. Care Teams Sanitarian Relationship Specialty Start Date End Date August, Markell Heller MD [address] [place] [address] PCP - General Family Medicine 03/30/23 documented as of this encounter
--- OUTSIDE RECORDS SUMMARY | 2023-07-16 14:44 | External Medical Summary | Summary of Care ---
Author Name Unknown Organization [facility] Address [address] [place] [address] Phone [phone] Care Team Providers Care Record Changer Assembler Name Role Phone Markell Linton MD Primary Care Provider [phone] Reason for Visit * Reason Onset Date Comments FYI 07/16/2023 vegetable tier patient, advice. Sister Theresa calling. Encounter Details Date Type Department Care Team (Late st Contact Info) Description 07/16/2023 Telephone Family Practice [facility] [address] [facility] [address] Karen Carey PA-C [address] [facility] [address] FYI (vegetable tier patient, advice. Sister Arely... Allergies Active Allergy Reactions Criticality Noted Date Comments Azithromycin Medium 06/19/2023 Facial redness, swelling, itching, watery eyes Methylprednisolone Sodium Succ 12/06 Dog Dander Low 03/20/2019 Other reaction(s): Sneezing Food (See Comments) 02/23/2018 Duck eggs Swelling Pollen 08/25/2015 Nystatin 01/17/2019 Allergic reaction Pollen Extract 03/20/2019 Other reaction(s): HAYFEVER documented as of this encounter (statuses as of 07/16/2023) Medications Medication Sig Dispensed Refills Start Date [...] group C, by GOLD 2017 classification ([facility]) Inhale via nebulizer . Use as directed. 1 Each 1 04/21/2022 Active Pulse Oximeter Deluxe Use as directed . 1 Each 1 04/21/2022 Active Nebulizer/Tubing/Yecenia thpiece KitIndications:COPD, group C, by GOLD 2017 classification ([facility]) Use to nebulize medicaitons 1 Kit 1 [...] heart failure, unspecified heart failure type ([facility]),PAULETTE (acute kidney injury) ([facility]) TAKE 2 TABLETS BY MOUTH EVERY MORNING [...] heart failure due to valvular disease ([facility]) TAKE 1 TABLET BY MOUTH EVERY DAY [...] group C, by GOLD 2017 classification ([facility]),Asthma with irreversible airway obstruction, unspecified asthma severity, uncomplicated ([facility]) INHALE 2 PUFFS BY MOUTH EVERY 6 HOURS NEEDED FOR WHEEZING 54 g 1 04/02/2023 Active Tiotropium [place]-Olodaterol 2.5-2.5 MCG/ACT Inhalation Aerosol Solution (Stiolto Respimat)Indications :COPD, group C, by GOLD 2017 classification ([facility]) Inhale 2 Puffs by mouth in the morning. 4 g 3 04/05/2023 Active Additional Information Patient not taking.Reported on 06/19/2023 Famotidine 10 MG Oral Tablet (Heartburn Relief)Indications:G astroesophageal reflux disease without esophagitis Take 1 Tablet by mouth in the morning. 90 Tablet 1 04/11/2023 Active Riboflavin 400 MG Oral CapsuleIndications:C hronic [...] 06/19/2023 Fluticasone Propionate HFA 110 MCG/ACT Inhalation AerosolIndications:C OPD, group C, by GOLD 2017 classification ([facility]) 1 puff each morning 36 g 1 06/29/2023 Active traMADol HCl 50 MG Oral Tablet (Ultram)Indications: Bilateral primary osteoarthritis of knee Take 1 Tablet by mouth every 12 hours as needed for Pain, Moderate. 60 Tablet 0 06/30/2023 Active documented as of this encounter (statuses as of 07/16/2023) Active Problems Problem Noted Date Diagnosed Date [...] as of this encounter (statuses as of 07/16/2023) Resolved Problems Problem Noted Date Diagnosed Date [...] as of this encounter (statuses as of 07/16/2023) Immunizations Name Administration Dates Next Due Pneumococcal [...] encounter Miscellaneous Notes * Telephone Encounter - Karen Carey PA-C - 07/16/2023 7:25 AM EDT vegetable tier patient. Pt's sister, Theresa calling. Pt has woke up the last two morning with a headache. She is also having some congestion, yellow mucus. This morning, pt was stating that the room was spinning when she woke up with the headache. Theresa took her pulse, pulse was between 68-89 per pulse oximiter, and O2 96-97%. Theresa reports pt is now sitting in the recliner and her headache is subsiding. She was started on topamax for migraines, was increased at her most recent PCP appointment in May. Sister is wondering if her body is having a hard time adjusting to the medication, or if something else is going on. She is also concerned that she could be getting sick. She had MRSA sepsis when she was in the assisted, and doesn't want this to happen again. Chart reviewed, complex patient with complex hx. Her symptoms do not sound emergent, at this time emergency evaluation does not sound necessary. I did instruct Theresa that if her symptoms acutely change or if she feels uncomfortable with her sister's headache to take her to the ER immediately. For the time being, continue to monitor her closely, rest, increase fluids, and call to get an appointment in person tomorrow first thing for evaluation-possible she could have viral infection vs sinusitis vs bronchitis and this is causing her symptoms. Theresa agrees, understands. documented in this encounter Plan of Treatment Upcoming Encounters Date Type Department Care Team (Late st Contact Info) Description 08/30/2023 8:30 AM EDT Laboratory Laboratory, [facility] [place] [address] [facility] [address] [facility] [address] 09/05/2023 8:15 AM EDT Cardiac Studies Cardiac Studies, [facility] [address] [place] [address] 09/06/2023 8:20 AM EDT Office Visit [facility] [place] [address] [facility] [id number] May, Markell Heller MD [address] [place] [address] Health Maintenance Due Date Last Done Comments Alpha-1 Antitrypsin 1966 Mammogram 1988 Cologuard 1993 Fecal Occult Blood Test 1993 Sigmoidoscopy 1993 Zoster Vaccines (1 of 2) 1998 Pneumococcal Vaccine: 65+ Years (3 of 3 - PPSV23 or PCV20) 07/02/2018 11/25/2016, 07/02/2013 *ADVANCE DIRECTIVE NOT ON FILE 10/06/2018 Depression Screening 12/07/2020 12/08/2019 DXA Scan 06/06/2021 06/06/2014 CKD PHOS USE SMARTSET 29642 11/17/2021 11/17/2020 COVID-19 Vaccine ( - season) 2022 Influenza Vaccine (FLU shot) (#1) 2022 03/12/2013 Albumin/Creatinine Ratio 01/14/2023 01/14/2022 DTaP,Tdap,and Td Vaccines (2 - Td or Tdap) 07/03/2023 07/02/2013 GFR 09/06/2023 03/08/2023, 0506/2022, 04/26/2022, Additional history exists CKD HGB USE SMARTSET 97097 03/08/202403/08, 09/13/2022, 04/26/2022, Additional history exists TSH [...] Documents on File Type Date Recorded Patient Night Stocker Expl anation Power of Yard Assistant 04/06/2023 POWER OF A TTORNEY Latest Code [...] and were consensually agreed upon. Care Teams Record Changer Assembler Relationship Specialty Start Date End Date August, Markell Heller MD [address] [place] [address] PCP - General Family Medicine 03/30/23 documented as of this encounter
--- OUTSIDE RECORDS SUMMARY | 2023-07-16 14:44 | External Medical Summary | Summary of Care ---
Author Name Unknown Organization [facility] Address [address] [place] [address] Phone [phone] Care Team Providers Care Nut Roaster Name Role Phone Markell Linton MD Primary Care Provider Reason for Visit * Reason Onset Date Comments Advice 06/21/2023 Encounter Details Date Type Department Care Team (Late st Contact Info) Description 06/21/2023 Telephone [facility] [address] [place] [address] Markell Linton MD [address] [place] [address] Advice Allergies Active Allergy Reactions Criticality Noted Date Comments Azithromycin Medium 06/19/2023 Facial redness, swelling, itching, watery eyes Methylprednisolone Sodium Succ 12/06 Dog Dander Low 03/20/2019 Other reaction(s): Sneezing Food (See Comments) 02/23/2018 Duck eggs Swelling Pollen 08/25/2015 Nystatin 01/17/2019 Allergic reaction Pollen Extract 03/20/2019 Other reaction(s): HAYFEVER documented as of this encounter (statuses as of 06/28/2023) Medications Medication Sig Dispensed Refills Start Date [...] :COPD, group C, by GOLD 2017 classification ([facility]) Inhale via nebulizer . Use as directed. 1 Each 1 04/21/2022 Active Pulse Oximeter Deluxe Use as directed . 1 Each 1 04/21/2022 Active Nebulizer/Tubing/Yecenia thpiece KitIndications:COPD, group C, by GOLD 2017 classification ([facility]) Use to nebulize medicaitons 1 Kit 1 [...] congestive heart failure, unspecified heart failure type ([facility]),PAULETTE (acute kidney injury) ([facility]) TAKE 2 TABLETS BY MOUTH EVERY MORNING [...] Congestive heart failure due to valvular disease ([facility]) TAKE 1 TABLET BY MOUTH EVERY DAY [...] COPD, group C, by GOLD 2017 classification ([facility]),Asthma with irreversible airway obstruction, unspecified asthma severity, uncomplicated ([facility]) INHALE 2 PUFFS BY MOUTH EVERY 6 HOURS NEEDED FOR WHEEZING 54 g 1 04/02/2023 Active Tiotropium [place]-Olodaterol 2.5-2.5 MCG/ACT Inhalation Aerosol Solution (Stiolto Respimat)Indications :COPD, group C, by GOLD 2017 classification ([facility]) Inhale 2 Puffs by mouth in the [...] OPD, group C, by GOLD 2017 classification ([facility]) 1 puff each morning 36 g 1 [...] as of this encounter (statuses as of 06/28/2023) Active Problems Problem Noted Date Diagnosed Date [...] as of this encounter (statuses as of 06/28/2023) Resolved Problems Problem Noted Date Diagnosed Date [...] as of this encounter (statuses as of 06/28/2023) Immunizations Name Administration Dates Next Due Pneumococcal [...] encounter Miscellaneous Notes * Telephone Encounter - Sabrina Pacheco LPN [...] [facility] Markell Linton MD * Telephone Encounter [...] Description 08/30/2023 8:30 AM EDT Laboratory Laboratory, [place] [address] [place] [facility] [place] [phone] [facility] [address], [place] [id number] 09/05/2023 8:15 AM EDT Cardiac Studies Cardiac Studies, [facility] [address] [facility] [place] [address] 09/06/2023 8:20 AM EDT Office Visit Family [facility], [place] [address] [place] [facility] [place] [phone] AugustMarkell MD [address], [place] [id number] Health Maintenance Due Date Last Done Comments Alpha-1 Antitrypsin 1966 Mammogram 1988 Cologuard 1993 Fecal Occult Blood Test 1993 Sigmoidoscopy 1993 Zoster Vaccines (1 of 2) 1998 Pneumococcal Vaccine: 65+ Years (3 of 3 - PPSV23 or PCV20) 07/02/2018 11/25/2016, 07/02/2013 *ADVANCE DIRECTIVE NOT ON FILE 10/06/2018 Depression Screening 12/07/2020 12/08/2019 DXA Scan 06/06/2021 06/06/2014 CKD PHOS USE SMARTSET 95902 11/17/2021 11/17/2020 COVID-19 Vaccine ( season) 2022 Influenza Vaccine (FLU shot) (#1) 2022 03/12/2013 Albumin/Creatinine Ratio 01/14/2023 01/14/2022 DTaP,Tdap,and Td Vaccines (2 - Td or Tdap) 07/03/2023 07/02/2013 GFR 09/06/2023 03/08/2023, 0506/2022, 04/26/2022, Additional history exists CKD HGB USE SMARTSET 61898 03/08/202403/08, 09/13/2022, 04/26/2022, Additional history exists TSH [...] Documents on File Type Date Recorded Patient Sheet Sewer Expl anation Power of Nursing Techn 04/06/2023 POWER OF A TTORNEY Latest Code [...] and were consensually agreed upon. Care Teams Nut Roaster Relationship Specialty Start Date End Date August, Markell Heller MD [address] [place] [address] PCP - General Family Medicine 03/30/23 documented as of this encounter
--- OUTSIDE RECORDS SUMMARY | 2023-07-16 14:44 | External Medical Summary | Summary of Care ---
Author Name Unknown Organization [facility] Address [address] [place] [address] Phone [phone] Care Team Providers Care Construction Management Assistant Name Role Phone Eleuterio Lopez MD Primary Care Provider [phone] Reason for Visit * Reason Onset Date Comments Medication Refill 06/29/2023 Encounter Details Date Type Department Care Team (Late st Contact Info) Description 06/29/2023 Refill [facility] [address] [place] [address] Eleuterio Lopez MD [address] [place] [address] Bilateral primary osteoarthritis of knee Allergies Active Allergy Reactions Criticality Noted Date [...] s:COPD, group C, by GOLD 2017 classification ([facility]) Inhale via nebulizer . Use as directed. 1 Each 1 04/21/2022 Active Pulse Oximeter Deluxe Use as directed . 1 Each 1 04/21/2022 Active Nebulizer/Tubing/Mo uthpiece KitIndications:COPD , group C, by GOLD 2017 classification ([facility]) Use to nebulize medicaitons 1 Kit [...] congestive heart failure, unspecified heart failure type ([facility]),PAULETTE (acute kidney injury) ([facility]) TAKE 2 TABLETS BY MOUTH EVERY [...] :Congestive heart failure due to valvular disease ([facility]) TAKE 1 TABLET BY MOUTH EVERY [...] :COPD, group C, by GOLD 2017 classification ([facility]),Asthma with irreversible airway obstruction, unspecified asthma severity, uncomplicated ([facility]) INHALE 2 PUFFS BY MOUTH EVERY 6 HOURS NEEDED FOR WHEEZING 54 g 1 04/02/2023 Active Tiotropium [place]-Olodaterol 2.5-2.5 MCG/ACT Inhalation Aerosol Solution (Stiolto Respimat)Indication s:COPD, group C, by GOLD 2017 classification ([facility]) Inhale 2 Puffs by mouth in the morning. 4 g 3 04/05/2023 Active Additional Information Patient not taking.Reported on 06/19/2023 Famotidine 10 MG Oral Tablet (Heartburn Relief)Indications: Gastroesophageal reflux disease without esophagitis Take 1 Tablet by mouth in the morning. 90 Tablet 1 04/11/2023 Active Riboflavin 400 MG Oral CapsuleIndications: Chronic [...] COPD, group C, by GOLD 2017 classification ([facility]) 1 puff each morning 36 g 1 06/29/2023 Active traMADol HCl 50 MG Oral Tablet (Ultram)Indications :Bilateral primary osteoarthritis of knee Take 1 Tablet by mouth every 12 hours as needed for Pain, Moderate. 60 Tablet 0 06/30/2023 Active traMADol HCl 50 MG Oral Tablet (Ultram)Indications :Bilateral primary osteoarthritis of knee Take 1 Tablet by mouth every 12 hours as needed for Pain, Moderate. 60 Tablet 0 05/16/2023 4 Discontinu ed(Refill) documented as of this [...] encounter Miscellaneous Notes * Telephone Encounter - Eleuterio Lopez MD - 06/30/2023 4:57 PM ESTSigned Prescriptions: Disp Refills traMADol HCl 50 MG Oral Tablet (Ultram) 60 Tab*0 Sig: Take 1 Tablet by mouth every 12 hours as needed for Pain, Moderate.Authorizing Provider: ELEUTERIO LOPEZ------ * Telephone Encounter - Scout Barcenas [facility] - 06/30/2023 2:46 PM EST Pending Prescriptions: Disp Refills traMADol HCl 50 MG Oral Tablet (Ultram) 60 Tab*0 Sig: Take 1 Tablet by mouth every 12 hours as needed for Pain, Moderate. * Telephone Encounter - Scout Barcenas [facility] - 06/30/2023 2:45 PM EST I have reviewed the patients controlled substance dispensing history in the Prescription Drug Monitoring Program in compliance with the [facility] regulations before prescribing a controlled substance. PDMP checked on 06/30/2023. Pending Prescriptions: Disp Refills traMADol HCl 50 MG Oral Tablet (Ultram) 60 Tab*0 Sig: Take 1 Tablet by mouth every 12 hours as needed for Pain, Moderate. Last Visit: 06/08/2023 (in office), 04/21/2022 (telemedicine) Next Visit: 09/06/2023 Date medication was last filled: 05/16/2023 Date medication is due for refill: 06/14/2023 Pharmacy: [id number] [address] [place] [address] Is this request for a controlled substance? Yes and Urine Drug Screen Not completed Toxicology results: No results found for this or any previous visit. Please approve if appropriate. Thank you, Scout Barcenas, PharmD Clinical Pharmacist [facility] ([facility]) 06/30/23 2:45 PM [phone] * Telephone Encounter - Ashly Snyder CPhT - 06/29/2023 5:27 PM EST Did you pend patient's preferred pharmacy and medication before forwarding?yes Pharmacy: [id number] [address] [facility] Pending Prescriptions: Disp Refills traMADol HCl 50 MG Oral Tablet (Ultram) 60 Tab*0 Sig: Take 1 Tablet by mouth every 12 hours as needed for Pain, Moderate. Last Visit: 06/08/2023 (in office), 04/21/2022 (telemedicine) Next Visit: 09/06/2023 If no future appointments scheduled, and last appointment is greater than a year ago, please schedule patient for a follow-up appointment Last date the medication was ordered: 05/16/23 Is this request for a controlled substance?Take 1 Tablet by mouth every 12 hours as needed for Pain, Moderate Urine Drug Screen:No results found for this or any previous visit. Patient Phone Numbers Labs: Lab Results Component Value Date/Time CREAT 1.9 (H) 03/08/2023 09:47 AM CREAT 1.51 (A) 09/13/2022 12:00 AM CREAT 1.0 06/19/2019 06:10 AM POTASSIUM 4.8 03/08/2023 09:47 AM POTASSIUM 3.5 09/13/2022 12:00 AM POTASSIUM 4.5 06/19/2019 06:10 AM TSH 3.58 03/08/2023 09:47 AM TSH 6.01 (H) 05/09/2019 03:05 PM LDLCALC 72 04/26/2022 09:13 AM LDLCALC 86 11/25/2016 10:20 AM LDLDIRECT NOT APPLICABLE 05/29/2015 08:25 AM ALT 10 03/08/2023 09:47 AM ALT 12 06/05/2019 03:45 PM documented in this encounter Plan of Treatment Upcoming Encounters Date Type Department Care Team (Late st Contact Info) Description 08/30/2023 8:30 AM EDT Laboratory Laboratory, [place] [address] [place] [facility] [place] [address] [facility] [address] [place] [facility] [place] [address] 09/05/2023 8:15 AM EDT Cardiac Studies Cardiac Studies, [facility] [address] [facility] [place] [address] 09/06/2023 8:20 AM EDT Office Visit [facility] [place] [address] [facility] [phone] AugustEleuterio MD [address] [place] [facility] [place] [address] Health Maintenance Due Date Last Done Comments Alpha-1 Antitrypsin 1966 Mammogram 1988 Cologuard 1993 Fecal Occult Blood Test 1993 Sigmoidoscopy 1993 Zoster Vaccines (1 of 2) 1998 Pneumococcal Vaccine: 65+ Years (3 of 3 - PPSV23 or PCV20) 07/02/2018 11/25/2016, 07/02/2013 *ADVANCE DIRECTIVE NOT ON FILE 10/06/2018 Depression Screening 12/07/2020 12/08/2019 DXA Scan 06/06/2021 06/06/2014 CKD PHOS USE SMARTSET 58500 11/17/2021 11/17/2020 COVID-19 Vaccine ( - season) 2022 Influenza Vaccine (FLU shot) (#1) 2022 03/12/2013 Albumin/Creatinine Ratio 01/14/2023 01/14/2022 DTaP,Tdap,and Td Vaccines (2 - Td or Tdap) 07/03/2023 07/02/2013 GFR 09/06/2023 03/08/2023, 08/23, 04/26/2022, Additional history exists CKD HGB USE SMARTSET 07905 03/08/202403/08, 09/13/2022, 04/26/2022, Additional history exists TSH [...] as of this encounter Visit Diagnoses Diagnosis Bilateral primary osteoarthritis of knee documented in this encounter Advance Directives Documents on File Type Date Recorded Patient Staffing Consultant Expl anation Power of Floorleader 04/06/2023 POWER OF A TTORNEY Latest Code [...] and were consensually agreed upon. Care Teams Construction Management Assistant Relationship Specialty Start Date End Date August, Eleuterio Heller MD [address] [place] [address] PCP - General Family Medicine 03/30/23 documented as of this encounter
--- OUTSIDE RECORDS SUMMARY | 2023-07-16 14:44 | External Medical Summary | Summary of Care ---
Author Name Unknown Organization [facility] Address [address] [place] [address] Phone [phone] Care Team Providers Care Senior Managing Director Name Role Phone Markell Linton MD Primary Care Provider [phone] Reason for Visit * Reason Onset Date Comments Advice 06/21/2023 Encounter Details Date Type Department Care Team (Late st Contact Info) Description 06/21/2023 [facility] [address] [place] [address] Markell Linton MD [address] [place] [address] Advice Allergies Active Allergy Reactions [...] s:COPD, group C, by GOLD 2017 classification ([facility]) Inhale via nebulizer . Use as directed. 1 Each 1 04/21/2022 Active Pulse Oximeter Deluxe Use as directed . 1 Each 1 04/21/2022 Active Nebulizer/Tubing/Mo uthpiece KitIndications:COPD , group C, by GOLD 2017 classification ([facility]) Use to nebulize medicaitons 1 Kit [...] congestive heart failure, unspecified heart failure type ([facility]),PAULETTE (acute kidney injury) ([facility]) TAKE 2 TABLETS BY MOUTH EVERY [...] :Congestive heart failure due to valvular disease ([facility]) TAKE 1 TABLET BY MOUTH EVERY [...] :COPD, group C, by GOLD 2017 classification ([facility]),Asthma with irreversible airway obstruction, unspecified asthma severity, uncomplicated ([facility]) INHALE 2 PUFFS BY MOUTH EVERY 6 HOURS NEEDED FOR WHEEZING 54 g 1 04/02/2023 Active Tiotropium [place]-Olodaterol 2.5-2.5 MCG/ACT Inhalation Aerosol Solution (Stiolto Respimat)Indication s:COPD, group C, by GOLD 2017 classification ([facility]) Inhale 2 Puffs by mouth in [...] COPD, group C, by GOLD 2017 classification ([facility]) 1 puff each morning 36 g [...] encounter Miscellaneous Notes * Telephone Encounter - Sarah Carmen LPN [...] ordered and can be drawn at any [facility]. Markell Linton MD * Telephone Encounter [...] cardiology this morning * Telephone Encounter - Lu July, [place] - 06/21/2023 11:19 AM EST Pt's sister [...] Description 08/30/2023 8:30 AM EDT Laboratory Laboratory, [place] [address] [facility] [phone] [place] [facility] [address] [facility] [id number] 09/05/2023 8:15 AM EDT Cardiac Studies Cardiac Studies, [facility] [address] [place] [address] 09/06/2023 8:20 AM EDT Office Visit [facility] [place] [address] [facility] [place] [phone] Markell Linton MD [address] [facility] [phone] Health Maintenance Due Date Last Done Comments Alpha-1 Antitrypsin 1966 Mammogram 1988 Cologuard 1993 Fecal Occult Blood Test 1993 Sigmoidoscopy 1993 Zoster Vaccines (1 of 2) 1998 Pneumococcal Vaccine: 65+ Years (3 of 3 - PPSV23 or PCV20) 07/02/2018 11/25/2016, 07/02/2013 *ADVANCE DIRECTIVE NOT ON FILE 10/06/2018 Depression Screening 12/07/2020 12/08/2019 DXA Scan 06/06/2021 06/06/2014 CKD PHOS USE SMARTSET 69545 11/17/2021 11/17/2020 COVID-19 Vaccine ( - season) 2022 Influenza Vaccine (FLU shot) (#1) 2022 03/12/2013 Albumin/Creatinine Ratio 01/14/2023 01/14/2022 DTaP,Tdap,and Td Vaccines (2 - Td or Tdap) 07/03/2023 07/02/2013 GFR 09/06/2023 03/08/2023, 05/2 06/2022, 04/26/2022, Additional history exists CKD HGB USE SMARTSET 14658 03/08/202403/08, 09/13/2022, 04/26/2022, Additional history exists TSH [...] Documents on File Type Date Recorded Patient Asphalt Screed Operator Expl anation Power of Fpga Engineer 04/06/2023 POWER OF A TTORNEY Latest Code [...] and were consensually agreed upon. Care Teams Senior Managing Director Relationship Specialty Start Date End Date August, Markell Heller MD [address] [place] [address] PCP - General Family Medicine 03/30/23 documented as of this encounter
--- OUTSIDE RECORDS SUMMARY | 2023-07-16 14:45 | External Medical Summary | Summary of Care ---
Author Name Unknown Organization [facility] Address [address] [place] [address] Phone [phone] Care Team Providers Care Market Research Worker Name Role Phone Markell Linton MD Primary Care Provider [phone] Reason for Visit * Reason Onset Date Comments Advice 06/21/2023 Encounter Details Date Type Department Care Team (Late st Contact Info) Description 06/21/2023 Telephone [facility] [address] [place] [address] Markell Linton MD [address] [place] [address] Advice Allergies Active Allergy Reactions [...] :COPD, group C, by GOLD 2017 classification ([facility]) Inhale via nebulizer . Use as directed. 1 Each 1 04/21/2022 Active Pulse Oximeter Deluxe Use as directed . 1 Each 1 04/21/2022 Active Nebulizer/Tubing/[place] thpiece KitIndications:COPD, group C, by GOLD 2017 classification ([facility]) Use to nebulize medicaitons 1 Kit [...] congestive heart failure, unspecified heart failure type ([facility]),PAULETTE (acute kidney injury) ([facility]) TAKE 2 TABLETS BY MOUTH EVERY [...] Congestive heart failure due to valvular disease ([facility]) TAKE 1 TABLET BY MOUTH EVERY [...] COPD, group C, by GOLD 2017 classification ([facility]),Asthma with irreversible airway obstruction, unspecified asthma severity, uncomplicated ([facility]) INHALE 2 PUFFS BY MOUTH EVERY 6 HOURS NEEDED FOR WHEEZING 54 g 1 04/02/2023 Active Tiotropium [place]-Olodaterol 2.5-2.5 MCG/ACT Inhalation Aerosol Solution (Stiolto Respimat)Indications :COPD, group C, by GOLD 2017 classification ([facility]) Inhale 2 Puffs by mouth in [...] OPD, group C, by GOLD 2017 classification ([facility]) 1 puff each morning 36 g [...] ordered and [facility] Markell Linton MD * Telephone Encounter [...] - 06/21/2023 11:19 AM EST Pt's sister Theresa called & is requesting a script from the MD to read Furosemide 20 mg tablet to take 3 a day for the next 3 days . Please contact pt's sister Theresa when complete documented in this encounter Plan of Treatment Upcoming Encounters Date Type Department Care Team (Late st Contact Info) Description 08/30/2023 8:30 AM EDT Laboratory Laboratory, [address] [address] [facility] [address] [place] [facility] [place] [address] 09/05/2023 8:15 AM EDT Cardiac Studies Cardiac Studies, [facility] [address] [place] [address] 09/06/2023 8:20 AM EDT Office Visit [facility], [place] [address] [facility] [place] [phone] August, Markell Heller MD [address] [place] [facility] [place] [address] Health Maintenance Due Date Last Done Comments Alpha-1 Antitrypsin 1966 Mammogram 1988 Cologuard 1993 Fecal Occult Blood Test 1993 Sigmoidoscopy 1993 Zoster Vaccines (1 of 2) 1998 Pneumococcal Vaccine: 65+ Years (3 of 3 - PPSV23 or PCV20) 07/02/2018 11/25/2016, 07/02/2013 *ADVANCE DIRECTIVE NOT ON FILE 10/06/2018 Depression Screening 12/07/2020 12/08/2019 DXA Scan 06/06/2021 06/06/2014 CKD PHOS USE SMARTSET 56910 11/17/2021 11/17/2020 COVID-19 Vaccine ( - season) 2022 Influenza Vaccine (FLU shot) (#1) 2022 03/12/2013 Albumin/Creatinine Ratio 01/14/2023 01/14/2022 DTaP,Tdap,and Td Vaccines (2 - Td or Tdap) 07/03/2023 07/02/2013 GFR 09/06/2023 03/08/2023, 05/2 06/2022, 04/26/2022, Additional history exists CKD HGB USE SMARTSET 38366 03/08/202403/08, 09/13/2022, 04/26/2022, Additional history exists TSH 03/08/2024 03/08/2023, 07/0 10/2020, 05/09/2019, Additional history exists O2 ASSESSMENT COMPLETED IN PAST YEAR FOR COPD 06/08/2024 06/08/2023 Lipid Panel 04/26/2027 04/26/2022, 0 10/2020, 11/25/2016, Additional history exists Colonoscopy 07/18/2028 [...] Documents on File Type Date Recorded Patient Orthodontic Assistant Expl anation Power of Store Group Manager 04/06/2023 POWER OF A TTORNEY Latest Code [...] and were consensually agreed upon. Care Teams Market Research Worker Relationship Specialty Start Date End Date August, Markell Heller MD [address] [place] [facility] [place] [address] PCP - General Family Medicine 03/30/23 documented as of this encounter
--- OUTSIDE RECORDS SUMMARY | 2023-07-16 14:45 | External Medical Summary ---
Author Name UNSPECIFIED Address Unknown Organization [facility] History of Encounters Reason for Assessment: Discharge from [facility] Inpatient Facility where the patient been admitted: No inpatient facility admission Discharge Disposition: Patient remained in the community (without formal assistive services) Functional Assessment When Dyspneic: With minimal exertio n (e.g., while eating, talking, or performing other ADLs) or with agitation Bowel Incontinence Frequency: Very rarel y or never has bowel incontinence Cognitive and Behavioral and Psychiatric Symptoms: None Current Ability: Bathing: able to partic ipate in bathing self in shower or tub, but requires presence of another person throughout the bath for assistance or supervision. Current Ability: Ambulation: Requires us e of a two-handed device (e.g., walker or crutches) to walk alone on a level surface and/or requires human supervision or assistance to negotiate stairs or steps or uneven surfaces. Current: Management Of Oral Medications: Able to take medication(s) at the correct times if given reminders by another person at the appropriate times
--- OUTSIDE RECORDS SUMMARY | 2023-07-16 14:45 | External Medical Summary | Summary of Care ---
Author Name Unknown Organization [facility] Address [address] [address] Phone [phone] Care Team Providers Care Corrosion Control Technician Name Role Phone Markell Linton MD Primary Care Provider [phone] Reason for Visit * Reason Onset Date Comments Medication Question 06/09/2023 gabapentin Encounter Details Date Type Department Care Team (Late st Contact Info) Description 06/09/2023 Telephone Cardiology, [facility] [address] [place] [address] Corby Hanna DO [address] [place] [address] Medication Question (gabapentin) Allergies Active Allergy Reactions Criticality Noted Date Comments Methylprednisolone Sodium Succ 12/06 Dog Dander Low 03/20/2019 Other reaction(s): Sneezing Food (See Comments) 02/23/2018 Duck eggs Swelling Pollen 08/25/2015 Nystatin 01/17/2019 Allergic reaction Pollen Extract 03/20/2019 Other reaction(s): HAYFEVER documented as of this encounter (statuses as of 06/09/2023) Medications Medication Sig Dispensed Refills Start Date [...] FOR WHEEZING 360 mL 2 07/17/2021 Active Ammonium Lactate 12 % External Lotion (Amlactin Daily)Indications:Ve nous stasis dermatitis of both lower extremities Apply topically to affected area as needed for Dry Skin. Apply to legs daily before putting socks on or at bedtime 400 g 0 01/14/2022 Active Compressor NebulizerIndications :COPD, group C, by GOLD 2017 classification ([facility]) Inhale via nebulizer . Use as directed. 1 Each 1 04/21/2022 Active Pulse Oximeter Deluxe Use as directed . 1 Each 1 04/21/2022 Active Nebulizer/Tubing/Yecenia thpiece KitIndications:COPD, group C, by GOLD 2017 classification ([facility]) Use to nebulize medicaitons 1 Kit 1 05/25/2022 Active Metoprolol Succinate ER 25 MG Oral Tablet Extended Release 24 Hour (toPROL XL) TAKE 1 TABLET BY MOUTH EVERY DAY IN THE MORNING 90 Tablet 2 09/01/2022 Active Additional Information Patient taking differently: Take 1/2 tab daily, Reported on 12/21/2022 Diclofenac Sodium 1 % External Gel Apply topically to affected area 4 times a day as needed. 0 Active Fluconazole 200 MG Oral Tablet (Diflucan) Take 1 Tablet by mouth in the morning. 0 Active guaiFENesin ER 600 MG Oral Tablet Extended Release 12 Hour Take 1 Tablet by mouth in the morning and 1 Tablet before bedtime. 0 Active Meclizine HCl 25 MG Oral Tablet (Antivert) Take 1 Tablet by mouth 3 times a day as needed for Dizziness. 0 Active Ondansetron HCl 4 MG Oral Tablet (Zofran) Take 1 Tablet by mouth every 6 hours as needed for Nausea. 0 Active rifAMPin 300 MG Oral Capsule (Rifadin) Take 1 Capsule by mouth in the morning and 1 Capsule at noon and 1 Capsule before bedtime. 0 Active Furosemide 20 MG Oral Tablet (Lasix)Indications:A cute congestive heart failure, unspecified heart failure type ([facility]),PAULETTE (acute kidney injury) ([facility]) TAKE 2 TABLETS BY MOUTH [...] before bedtime. 180 Tablet 1 03/12/2023 Active Transparent DressingsIndications :Decubitus ulcer of ischial area, unspecified laterality, unspecified ulcer stage Use daily as needed for pressure sores. 25 Each 1 03/14/2023 Active Clopidogrel Bisulfate 75 MG Oral Tablet (pLAVix)Indications: Congestive heart failure due to valvular disease (HCC) TAKE 1 TABLET BY MOUTH EVERY DAY [...] COPD, group C, by GOLD 2017 classification ([facility]),Asthma with irreversible airway obstruction, unspecified asthma severity, uncomplicated ([facility]) INHALE 2 PUFFS BY MOUTH EVERY 6 HOURS NEEDED FOR WHEEZING 54 g 1 04/02/2023 Active Tiotropium [place]-Olodaterol 2.5-2.5 MCG/ACT Inhalation Aerosol Solution (Stiolto Respimat)Indications :COPD, group C, by GOLD 2017 classification ([facility]) Inhale 2 Puffs by mouth in the morning. 4 g 3 04/05/2023 Active Famotidine 10 MG Oral Tablet (Heartburn Relief)Indications:G astroesophageal reflux disease without esophagitis Take 1 Tablet by mouth in the morning. 90 Tablet 1 04/11/2023 Active traMADol HCl 50 MG Oral Tablet (Ultram)Indications: Bilateral primary osteoarthritis of knee Take 1 Tablet by mouth every 12 hours as needed for Pain, Moderate. 60 Tablet 0 05/16/2023 Active Gabapentin 300 MG Oral Capsule (Neurontin)Indicatio ns:Other polyneuropathy Take 1 Capsule by mouth at bedtime. 90 Capsule 0 06/08/2023 Active Topiramate 25 MG Oral Tablet (topAMAX)Indications :Chronic daily headache 2 tab am, 2 tab mid day and 1 tab at bedtime for migraine / headache prevention 450 Tablet 3 06/08/2023 Active Riboflavin 400 MG Oral CapsuleIndications:C hronic daily headache Take 1 Capsule by mouth in the morning. 90 Capsule 1 06/08/2023 Active Ketoconazole 2 % External Cream APPLY TOPICALLY TO AFFECTED AREA 2 TIMES A DAY FOR 14 DAYS. APPLY TO AFFECTED AREA AFTER DRYING SKIN 60 g 2 06/08/2023 Active Flovent HFA 110 MCG/ACT Inhalation AerosolIndications:C OPD, group C, by GOLD 2017 classification (HCC) 1 puff each morning 36 g 1 06/08/2023 Active documented as of this encounter (statuses as of 06/09/2023) Active Problems Problem Noted Date Diagnosed Date PAULETTE (acute kidney injury) 06/06/2022 Chronic kidney [...] without esophagi tis 08/13/2015 Tobacco use 08/20/2014 Arthritis of knee Aortic stenosis Morbid obesity documented as of this encounter (statuses as of 06/09/2023) Resolved Problems Problem Noted Date Diagnosed Date [...] protocol #1 Shingles 08/13/2015 01/25/2017 Dyslipidemia, goal LDL below 100 04/01/2013 09/05/2017 Dyslipidemia, goal to be determined 04/01/2013 Esophageal reflux 08/13/2015 documented as of this encounter (statuses as of 06/09/2023) Immunizations Name Administration Dates Next Due Pneumococcal [...] encounter Miscellaneous Notes * Telephone Encounter - Elvira Layton OSA - 06/09/2023 11:57 AM EST Pts sister called and is asking if its okay for the pt to take gabapentin and it will it affect herheart Gabapentin 300 MG Oral Capsule (Neurontin) Theresa can be reached at [phone] Thank you BASILIA Cline documented in this encounter Plan of Treatment Upcoming Encounters Date Type Department Care Team (Late st Contact Info) Description 06/19/2023 1:30 PM EST Office Visit Cardiology, [facility] [address] [place] [address] Nabila Fields CRNP [address] [place] [address] 08/30/2023 8:30 AM EDT [address] [phone] [place], [facility] [address] [address] 09/06/2023 8:20 AM EDT Office Visit [facility], [place] [address] [address] AugustMarkell MD [address] [place] [facility] [place] [address] Health Maintenance Due Date Last Done Comments Alpha-1 Antitrypsin 1966 Mammogram 1988 Cologuard 1993 Fecal Occult Blood Test 1993 Sigmoidoscopy 1993 Zoster Vaccines (1 of 2) 1998 Pneumococcal Vaccine: 65+ Years (3 of 3 - PPSV23 or PCV20) 07/02/2018 11/25/2016, 07/02/2013 *ADVANCE DIRECTIVE NOT ON FILE 10/06/2018 Depression Screening 12/07/2020 12/08/2019 DXA Scan 06/06/2021 06/06/2014 CKD PHOS USE SMARTSET 91816 11/17/2021 11/17/2020 COVID-19 Vaccine ( - 2022- season) 2022 Influenza Vaccine (FLU shot) (#1) 2022 03/12/2013 Albumin/Creatinine Ratio 01/14/2023 01/14/2022 DTaP,Tdap,and Td Vaccines (2 - Td or Tdap) 07/03/2023 07/02/2013 GFR 09/06/2023 03/08/2023, 05/2 06/2022, 04/26/2022, Additional history exists CKD HGB USE SMARTSET 06789 03/08/202403/08, 09/13/2022, 04/26/2022, Additional history exists TSH [...] Documents on File Type Date Recorded Patient Harbormaster Expl anation Power of Bulb Filler 04/06/2023 POWER OF A TTORNEY Latest Code [...] and were consensually agreed upon. Care Teams Corrosion Control Technician Relationship Specialty Start Date End Date August, Markell Heller MD [address] [place] [facility] [place] [address] PCP - General Family Medicine 03/30/23 documented as of this encounter
--- OUTSIDE RECORDS SUMMARY | 2023-07-16 14:45 | External Medical Summary | Summary of Care ---
Author Name Unknown Organization [facility] Address [address] [address] Phone [phone] Care Team Providers Care Electronics Technician Name Role Phone Markell Linton MD Primary Care Provider [phone] Reason for Visit * Reason Onset Date Comments Medication Question 06/09/2023 gabapentin Encounter Details Date Type Department Care Team (Late st Contact Info) Description 06/09/2023 Telephone Cardiology, [facility] [address] [place] [address] Corby Hanna DO [address] [place] [address] Medication Question (gabapentin) Allergies Active Allergy Reactions Criticality Noted Date Comments Methylprednisolone Sodium Succ 12/06 Dog Dander Low 03/20/2019 Other reaction(s): Sneezing Food (See Comments) 02/23/2018 Duck eggs Swelling Pollen 08/25/2015 Nystatin 01/17/2019 Allergic reaction Pollen Extract 03/20/2019 Other reaction(s): HAYFEVER documented as of this encounter (statuses as of 06/13/2023) Medications Medication Sig Dispensed Refills Start Date End Date Status aspirin 81 MG chewable tablet Take 1 Tab by mouth daily. with food. 100 Tab 5 0 Active vitamin c (ASCORBIC ACID) 250 MG Tablet DAILY@12 30 Tab 5 0 Active Acetaminophen 325 MG Oral Tablet Take 500 mg by mouth every 6 hours as needed for Pain. 0 Active Ipratropium-Albuter ol 0.5-2.5 (3) MG/3ML Inhalation Solution (Duoneb) INHALE 1 VIAL EVERY 4 TO 6 HOURS NEEDED FOR WHEEZING 360 mL 2 2 Active Ammonium Lactate 12 % External Lotion (Amlactin Daily)Indications:V enous stasis dermatitis of both lower extremities Apply topically to affected area as needed for Dry Skin. Apply to legs daily before putting socks on or at bedtime 400 g 0 2 Active Compressor NebulizerIndication s:COPD, group C, by GOLD 2017 classification ([facility]) Inhale via nebulizer . Use as directed. 1 Each 1 2 Active Pulse Oximeter Deluxe Use as directed . 1 Each 1 2 Active Nebulizer/Tubing/Mo uthpiece KitIndications:COPD , group C, by GOLD 2017 classification ([facility]) Use to nebulize medicaitons 1 Kit 1 3 Active Metoprolol Succinate ER 25 MG Oral Tablet Extended Release 24 Hour (toPROL XL) TAKE 1 TABLET BY MOUTH EVERY DAY IN THE MORNING 90 Tablet 2 3 Active Additional Information Patient taking differently: Take [...] heart failure, unspecified heart failure type ([facility]),PAULETTE (acute kidney injury) ([facility]) TAKE 2 TABLETS BY MOUTH EVERY MORNING 180 Tablet 1 3 Active Ferrous Sulfate 325 (65 Fe) MG Oral Tablet (Feosol)Indications :Macrocytic anemia TAKE 1 TABLET BY MOUTH EVERY DAY AT 12 90 Tablet 3 3 Active Magnesium Oxide 400 MG Oral TabletIndications:H ypomagnesemia Take 1 Tablet by mouth in the morning and 1 Tablet before bedtime. 180 Tablet 1 3 Active Transparent DressingsIndication s:Decubitus ulcer of ischial area, unspecified laterality, unspecified ulcer stage Use daily as needed for pressure sores. 25 Each 1 3 Active Clopidogrel Bisulfate 75 MG Oral Tablet (pLAVix)Indications :Congestive heart failure due to valvular disease (HCC) TAKE 1 TABLET BY MOUTH EVERY DAY IN THE MORNING 90 Tablet 3 3 Active Pantoprazole Sodium 40 MG Oral Tablet Delayed Release (Protonix)Indicatio ns:Esophageal reflux Take 1 Tablet by mouth in the morning and 1 Tablet before bedtime. 180 Tablet 1 3 Active Simvastatin 10 MG Oral Tablet (Zocor) TAKE 1 TABLET BY MOUTH EVERYDAY AT BEDTIME 90 Tablet 1 3 Active Floranex Oral Tablet Take 2 Each by mouth in the morning and 2 Each before bedtime. 360 Tablet 3 3 Active Amiodarone HCl 200 MG Oral Tablet (Cordarone)Indicati ons:Paroxysmal atrial fibrillation (HCC) Take 1 Tablet by mouth in the morning. 90 Tablet 3 3 Active Levothyroxine Sodium 50 MCG Oral Tablet (Levoxyl)Indication s:Hypothyroidism, unspecified type Take 1 Tablet by mouth in the morning. on an empty stomach.. 90 Tablet 3 3 Active Albuterol Sulfate HFA 108 (90 Base) MCG/ACT Inhalation Aerosol SolutionIndications :COPD, group C, by GOLD 2017 classification ([facility]),Asthma with irreversible airway obstruction, unspecified asthma severity, uncomplicated ([facility]) INHALE 2 PUFFS BY MOUTH EVERY 6 HOURS NEEDED FOR WHEEZING 54 g 1 3 Active Tiotropium [place]-Olodaterol 2.5-2.5 MCG/ACT Inhalation Aerosol Solution (Stiolto Respimat)Indication s:COPD, group C, by GOLD 2017 classification ([facility]) Inhale 2 Puffs by mouth in the morning. 4 g 3 3 Active Famotidine 10 MG Oral Tablet (Heartburn Relief)Indications: Gastroesophageal reflux disease without esophagitis Take 1 Tablet by mouth in the morning. 90 Tablet 1 3 Active traMADol HCl 50 MG Oral Tablet (Ultram)Indications :Bilateral primary osteoarthritis of knee Take 1 Tablet by mouth every 12 hours as needed for Pain, Moderate. 60 Tablet 0 4 Active Gabapentin 300 MG Oral Capsule (Neurontin)Indicati ons:Other polyneuropathy Take 1 Capsule by mouth at bedtime. 90 Capsule 0 4 Active Riboflavin 400 MG Oral CapsuleIndications: Chronic daily headache Take 1 Capsule by mouth in the morning. 90 Capsule 1 4 Active Ketoconazole 2 % External Cream APPLY TOPICALLY TO AFFECTED AREA 2 TIMES A DAY FOR 14 DAYS. APPLY TO AFFECTED AREA AFTER DRYING SKIN 60 g 2 4 Active Flovent HFA 110 MCG/ACT Inhalation AerosolIndications: COPD, group C, by GOLD 2017 classification (HCC) 1 puff each morning 36 g 1 4 Active Topiramate 25 MG Oral Tablet (topAMAX)Indication s:Chronic daily headache 2 tab am, 2 tab mid day and 1 tab at bedtime for migraine / headache prevention 450 Tablet 3 4 06/12/19 24 Discontinued documented as of this encounter (statuses as of 06/13/2023) Active Problems Problem Noted Date Diagnosed Date [...] as of this encounter (statuses as of 06/13/2023) Resolved Problems Problem Noted Date Diagnosed Date [...] as of this encounter (statuses as of 06/13/2023) Immunizations Name Administration Dates Next Due Pneumococcal [...] encounter Miscellaneous Notes * Telephone Encounter - Slade Burnett RN - 06/13/2023 1:59 PM EST Patient notified by phone and the message from Dr. Hanna reviewed with her regarding the gabapentin. She stated she understood. * Telephone Encounter - Corby Hanna DO - 06/12/2023 3:50 PM EST If patient needs the gabapentin for pain then she should take it. * Telephone Encounter - Elvira Layton OSA - 06/09/2023 11:57 AM EST Pts sister called and is asking if its okay for the pt to take gabapentin and it will it affect herheart Gabapentin 300 MG Oral Capsule (Neurontin) Theresa can be reached at [phone] Thank you BASILIA Cline documented in this encounter Plan of Treatment Upcoming Encounters Date Type Department Care Team (Late st Contact Info) Description 06/19/2023 1:30 PM EST Office Visit Cardiology, [facility] [address] [place] [address] Nabila Fields CRNP [address] [place] [address] 08/30/2023 8:30 AM EDT Laboratory Laboratory, [place] [address] [place] [address] [facility] [address] [place] [address] 09/06/2023 8:20 AM EDT Office Visit Family Practice, [place] [address] [place] [phone] AugustMarkell MD [address] [place], [place] [phone] Health Maintenance Due Date Last Done Comments Alpha-1 Antitrypsin 1966 Mammogram 1988 Cologuard 1993 Fecal Occult Blood Test 1993 Sigmoidoscopy 1993 Zoster Vaccines (1 of 2) 1998 Pneumococcal Vaccine: 65+ Years (3 of 3 - PPSV23 or PCV20) 07/02/2018 11/25/2016, 07/02/2013 *ADVANCE DIRECTIVE NOT ON FILE 10/06/2018 Depression Screening 12/07/2020 12/08/2019 DXA Scan 06/06/2021 06/06/2014 CKD PHOS USE SMARTSET 79742 11/17/2021 11/17/2020 COVID-19 Vaccine ( season) 2022 Influenza Vaccine (FLU shot) (#1) 2022 03/12/2013 Albumin/Creatinine Ratio 01/14/2023 01/14/2022 DTaP,Tdap,and Td Vaccines (2 - Td or Tdap) 07/03/2023 07/02/2013 GFR 09/06/2023 03/08/2023, 08/23, 04/26/2022, Additional history exists CKD HGB USE SMARTSET 96416 03/08/202403/08, 09/13/2022, 04/26/2022, Additional history exists TSH [...] Documents on File Type Date Recorded Patient Level Vial Marker Expl anation Power of Energy Efficient Site Manager 04/06/2023 POWER OF A TTORNEY Latest [...] and were consensually agreed upon. Care Teams Electronics Technician Relationship Specialty Start Date End Date August, Markell Heller MD [address] [place] [address] PCP - General Family Medicine 03/30/23 documented as of this encounter
--- OUTSIDE RECORDS SUMMARY | 2023-07-16 14:45 | External Medical Summary | Summary of Care ---
Author Name Unknown Organization [facility] Address [address] [place] [address] Phone [phone] Care Team Providers Care Wealth Management Advisor Name Role Phone Markell Linton MD Primary Care Provider [phone] Encounter Details Date Type Department Care Team (Late st Contact Info) Description 06/12/2023 Telephone [facility] [address] [place] [address] Chana Stacy PA-C [address] [place] [address] Allergies Active Allergy Reactions Criticality Noted Date Comments Methylprednisolone Sodium Succ 12/06 Dog Dander Low 03/20/2019 Other reaction(s): Sneezing Food (See Comments) 02/23/2018 Duck eggs Swelling Pollen 08/25/2015 Nystatin 01/17/2019 Allergic reaction Pollen Extract 03/20/2019 Other reaction(s): HAYFEVER documented as of this encounter (statuses as of 06/12/2023) Medications Medication Sig Dispensed Refills Start Date [...] s:COPD, group C, by GOLD 2017 classification ([facility]) Inhale via nebulizer . Use as directed. 1 Each 1 2 Active Pulse Oximeter Deluxe Use as directed . 1 Each 1 2 Active Nebulizer/Tubing/Mo uthpiece KitIndications:COPD , group C, by GOLD 2017 classification ([facility]) Use to nebulize medicaitons 1 Kit 1 [...] congestive heart failure, unspecified heart failure type ([facility]),PAULETTE (acute kidney injury) ([facility]) TAKE 2 TABLETS BY MOUTH EVERY MORNING [...] :Congestive heart failure due to valvular disease ([facility]) TAKE 1 TABLET BY MOUTH EVERY DAY [...] :COPD, group C, by GOLD 2017 classification ([facility]),Asthma with irreversible airway obstruction, unspecified asthma severity, uncomplicated ([facility]) INHALE 2 PUFFS BY MOUTH EVERY 6 HOURS NEEDED FOR WHEEZING 54 g 1 3 Active Tiotropium [place]-Olodaterol 2.5-2.5 MCG/ACT Inhalation Aerosol Solution (Stiolto Respimat)Indication s:COPD, group C, by GOLD 2017 classification ([facility]) Inhale 2 Puffs by mouth in the [...] COPD, group C, by GOLD 2017 classification ([facility]) 1 puff each morning 36 g 1 4 Active Topiramate 50 MG Oral Tablet (Topamax)Indication s:Chronic daily headache One tab morning, one tab mid day and half tab at bedtime for migraine prevention 225 Tablet 1 4 Active Topiramate 25 MG Oral Tablet (topAMAX)Indication s:Chronic daily headache 2 tab am, 2 tab mid day and 1 tab at bedtime for migraine / headache prevention 450 Tablet 3 4 06/12/19 24 Discontinued documented as of this encounter (statuses as of 06/12/2023) Active Problems Problem Noted Date Diagnosed Date [...] as of this encounter (statuses as of 06/12/2023) Resolved Problems Problem Noted Date Diagnosed Date [...] as of this encounter (statuses as of 06/12/2023) Immunizations Name Administration Dates Next Due Pneumococcal [...] Telephone Encounter - Sabrina Pacheco LPN - 06/12/2023 2:17 PM EST [facility] states topiramate 25 mg is on back order. Also, insurance will not cover 5 tabs daily. Consider 50 mg for morning/noon dose documented in this encounter Plan of Treatment Upcoming Encounters Date Type Department Care Team (Late st Contact Info) Description 06/19/2023 1:30 PM EST Office Visit Cardiology, [facility] [address] [place] [address] Nabila Fields CRNP [address] [place] [address] 08/30/2023 8:30 AM EDT Laboratory Laboratory, [place] [address] [place] [facility] [place] [phone] [facility] [address] [place], [place] [phone] 09/06/2023 8:20 AM EDT Office Visit [facility] [place] [address] [place] [facility] [place] [address] AugustMarkell MD [address] [facility] [place] [phone] Health Maintenance Due Date Last Done Comments Alpha-1 Antitrypsin 1966 Mammogram 1988 Cologuard 1993 Fecal Occult Blood Test 1993 Sigmoidoscopy 1993 Zoster Vaccines (1 of 2) 1998 Pneumococcal Vaccine: 65+ Years (3 of 3 - PPSV23 or PCV20) 07/02/2018 11/25/2016, 07/02/2013 *ADVANCE DIRECTIVE NOT ON FILE 10/06/2018 Depression Screening 12/07/2020 12/08/2019 DXA Scan 06/06/2021 06/06/2014 CKD PHOS USE SMARTSET 16419 11/17/2021 11/17/2020 COVID-19 Vaccine ( season) 2022 Influenza Vaccine (FLU shot) (#1) 2022 03/12/2013 Albumin/Creatinine Ratio 01/14/2023 01/14/2022 DTaP,Tdap,and Td Vaccines (2 - Td or Tdap) 07/03/2023 07/02/2013 GFR 09/06/2023 03/08/2023, 05/2 06/2022, 04/26/2022, Additional history exists CKD HGB USE SMARTSET 58016 03/08/202403/08, 09/13/2022, 04/26/2022, Additional history exists TSH [...] as of this encounter Visit Diagnoses Diagnosis Chronic daily headache- Primary Headache documented in this encounter Advance Directives Documents on File Type Date Recorded Patient Supervisor Drawing Expl anation Power of Television News Anchor 04/06/2023 POWER OF A TTORNEY Latest Code [...] and were consensually agreed upon. Care Teams Wealth Management Advisor Relationship Specialty Start Date End Date August, Markell Heller MD [address] [place] [address] PCP - General Family Medicine 03/30/23 documented as of this encounter
--- OUTSIDE RECORDS SUMMARY | 2023-07-16 14:45 | External Medical Summary | Summary of Care ---
Author Name Unknown Organization [facility] [address] [facility] [facility] [address] Phone [phone] Care Team Providers Care Regional Office Coordinator Name Role Phone Markell Linton MD Primary Care Provider [phone] Reason for Visit * Reason Onset Date Comments Medication Question 06/09/2023 gabapentin Encounter Details Date Type Department Care Team (Late st Contact Info) Description 06/09/2023 Telephone Cardiology, [facility] [address] [place] [address] Corby Hanna DO [address] [place] [id number] Medication Question (gabapentin) Allergies Active Allergy Reactions [...] 2017 classification ([facility]) Inhale via nebulizer . Use as directed. 1 Each 1 04/21/2022 Active Pulse Oximeter Deluxe Use as directed . 1 Each 1 04/21/2022 Active Nebulizer/Tubing/Yecenia thpiece KitIndications:COPD, group C, by GOLD 2017 classification ([facility]) Use to nebulize medicaitons 1 Kit [...] failure type ([facility]),PAU[place]TTE (acute kidney injury) ([facility]) TAKE 2 TABLETS BY MOUTH EVERY [...] 2017 classification ([facility]),Asthma with irreversible airway obstruction, unspecified asthma severity, uncomplicated ([facility]) INHALE 2 PUFFS BY MOUTH EVERY 6 HOURS NEEDED FOR WHEEZING 54 g 1 04/02/2023 Active Tiotropium [place]-Olodaterol 2.5-2.5 MCG/ACT Inhalation Aerosol Solution (Stiolto Respimat)Indications :COPD, group C, by GOLD 2017 classification ([facility]) Inhale 2 Puffs by mouth in [...] encounter Miscellaneous Notes * Telephone Encounter - Corby Hanna DO [...] Capsule (Neurontin) Theresa can be reached at [phone] Thank you BASILIA Cline documented in this encounter Plan of Treatment Upcoming Encounters Date Type Department Care Team (Late st Contact Info) Description 06/19/2023 1:30 PM EST Office Visit Cardiology, [address] [place] [address] Nabila Fields CRNP [address] [place] [address] 08/30/2023 8:30 AM EDT Laboratory Laboratory, [place] [address] [place] [id number] [facility] [address], [place] [id number] 09/06/2023 8:20 AM EDT Office Visit Family [facility], [place] [address] [place] [address] August, Markell Heller MD [address] [place] [address] Health Maintenance Due Date Last Done Comments Alpha-1 Antitrypsin 1966 Mammogram 1988 Cologuard 1993 Fecal Occult Blood Test 1993 Sigmoidoscopy 1993 Zoster Vaccines (1 of 2) 1998 Pneumococcal Vaccine: 65+ Years (3 of 3 - PPSV23 or PCV20) 07/02/2018 11/25/2016, 07/02/2013 *ADVANCE DIRECTIVE NOT ON FILE 10/06/2018 Depression Screening 12/07/2020 12/08/2019 DXA Scan 06/06/2021 06/06/2014 CKD PHOS USE SMARTSET 17750 11/17/2021 11/17/2020 COVID-19 Vaccine ( - season) 2022 Influenza Vaccine (FLU shot) (#1) 2022 03/12/2013 Albumin/Creatinine Ratio 01/14/2023 01/14/2022 DTaP,Tdap,and Td Vaccines (2 - Td or Tdap) 07/03/2023 07/02/2013 GFR 09/06/2023 03/08/2023, 05/06/2022, 04/26/2022, Additional history exists CKD HGB USE SMARTSET 77105 03/08/202403/08, 09/13/2022, 04/26/2022, Additional history exists TSH 03/08/2024 03/08/2023, 10/2020, 05/09/2019, Additional history exists O2 ASSESSMENT COMPLETED IN PAST YEAR FOR COPD 06/08/2024 06/08/2023 Lipid Panel 04/26/2027 04/26/2022, 070 10/2020, 11/25/2016, Additional history exists Colonoscopy 07/18/2028 [...] Documents on File Type Date Recorded Patient Tile Designer Expl anation Power of Business Manager [employer] 04/06/2023 POWER OF A TTORNEY Latest Code [...] and were consensually agreed upon. Care Teams Regional Office Coordinator Relationship Specialty Start Date End Date August, Markell Heller MD [address] [facility] [place] [address] PCP - General Family Medicine 03/30/23 documented as of this encounter
--- OUTSIDE RECORDS SUMMARY | 2023-07-16 14:45 | External Medical Summary | Summary of Care ---
Author Name Unknown Organization [facility] Address [address] [place] [address] Phone [phone] Care Team Providers Care Information And Referral Director Name Role Phone Markell Linton MD Primary Care Provider Reason for Referral * Precert (Within 10 days (routine)) - Pending Review Specialty Diagnoses / Procedures Referred By Contac t Referred To Contact Cardiac Studies Diagnoses Paroxysmal atrial fibrillation (HCC) Chronic heart failure with preserved ejection fraction (HCC) S/P TAVR (transcatheter aortic valve replacement) Dyslipidemia, goal LDL below 100 Procedures ECHO, COMPLETE (2D), TRANS-THORACIC Nabila Fields CRNP [address] [place] [address] Referral ID Status Reason Start Date Expiration Date Visits Requested Visits Authorized [id number] Pending Review Precert 06/19/2023 999 999 Reason for Visit * Reason Comments Follow Up Encounter Details Date Type Department Care Team (Late st Contact Info) Description 06/19/2023 1:30 PM EST Office Visit Cardiology, [facility] [address] [place] [address] Nabila Fields CRNP [address] [place] [id number] Paroxysmal atrial fibrillation (HCC)*; Chronic heart failure with preserved ejection fraction (HCC); S/P TAVR (transcatheter aortic valve replacement); Dyslipidemia, goal LDL below 100 Allergies Active Allergy Reactions Criticality Noted Date Comments Azithromycin Medium 06/19/2023 Facial redness, swelling, itching, watery eyes Methylprednisolone Sodium Succ 12/06 Dog Dander Low 03/20/2019 Other reaction(s): Sneezing Food (See Comments) 02/23/2018 Duck eggs Swelling Pollen 08/25/2015 Nystatin 01/17/2019 Allergic reaction Pollen Extract 03/20/2019 Other reaction(s): HAYFEVER documented as of this encounter (statuses as of 06/20/2023) Medications Medication Sig Dispensed Refills Start Date [...] s:COPD, group C, by GOLD 2017 classification (FORMERLY [facility]) Inhale via nebulizer . Use as directed. 1 Each 1 04/21/2022 Active Pulse Oximeter Deluxe Use as directed . 1 Each 1 04/21/2022 Active Nebulizer/Tubing/Mo uthpiece KitIndications:COPD , group C, by GOLD 2017 classification (FORM[facility]LY [facility]) Use to nebulize medicaitons 1 Kit 1 [...] failure type ([facility]),PAULETTE (acute kidney injury) (FORMERLY [facility]) TAKE 2 TABLETS BY MOUTH EVERY MORNING [...] 2017 classification ([facility]),Asthma with irreversible airway obstruction, unspecified asthma severity, uncomplicated ([facility]) INHALE 2 PUFFS BY MOUTH EVERY 6 HOURS NEEDED FOR WHEEZING 54 g 1 04/02/2023 Active Tiotropium Breeden-Olodaterol 2.5-2.5 MCG/ACT Inhalation Aerosol Solution (Stiolto Respimat)Indication s:COPD, group C, by GOLD 2017 classification (FORMERLY [facility]) Inhale 2 Puffs by mouth in the [...] 06/08/2023 Active Flovent HFA 110 MCG/ACT Inhalation AerosolIndications: COPD, group C, by GOLD 2017 classification ([facility]) 1 puff each morning 36 g 1 [...] bedtime for migraine prevention, Reported on 06/19/2023 Ammonium Lactate 12 % External Lotion (Amlactin Daily)Indications:V enous stasis dermatitis of both lower extremities Apply topically to affected area as needed for Dry Skin. Apply to legs daily before putting socks on or at bedtime 400 g 0 01/14/2022 4 Discontinu ed(Patient preference /discontin uation) Fluconazole 200 MG Oral Tablet (Diflucan) Take 1 Tablet by mouth in the morning. 0 4 Discontinu ed(Patient preference /discontin uation) guaiFENesin ER 600 MG Oral Tablet Extended Release 12 Hour Take 1 Tablet by mouth in the morning and 1 Tablet before bedtime. 0 4 Discontinu ed(Patient preference /discontin uation) Meclizine HCl 25 MG Oral Tablet (Antivert) Take 1 Tablet by mouth 3 times a day as needed for Dizziness. 0 4 Discontinu ed(Patient preference /discontin uation) Ondansetron HCl 4 MG Oral Tablet (Zofran) Take 1 Tablet by mouth every 6 hours as needed for Nausea. 0 4 Discontinu ed(Patient preference /discontin uation) rifAMPin 300 MG Oral Capsule (Rifadin) Take 1 Capsule by mouth in the morning and 1 Capsule at noon and 1 Capsule before bedtime. 0 4 Discontinu ed(Patient preference /discontin uation) Transparent DressingsIndication s:Decubitus ulcer of ischial area, unspecified laterality, unspecified ulcer stage Use daily as needed for pressure sores. 25 Each 1 03/14/2023 4 Discontinu ed(Patient preference /discontin uation) documented as of this encounter (statuses as of 06/20/2023) Active Problems Problem Noted Date Diagnosed Date [...] as of this encounter (statuses as of 06/20/2023) Resolved Problems Problem Noted Date Diagnosed Date [...] as of this encounter (statuses as of 06/20/2023) Immunizations Name Administration Dates Next Due Pneumococcal Conjugate Vacc, 13 Valent (Prevnar) 11/25/2016 Pneumococcal Polysaccharide PPV23 (Pneumovax) Seasonal Influenza, Split, IIV3, With Preserve, Inj 03/12/2013 TDAP (age 10 and older)(Boostrix) 07/02/2013 documented as of this encounter Social History Tobacco Use Types Packs/Day Years Used Date Smoking Tobacco: Former Cigarettes 0.5 30 0 06/18/1988 - 06/18/2018 Smokeless Tobacco: Never Tobacco Cessation:Counseling Given: Not Answered Alcohol Use Standard Drinks/Week Comments No 0 [...] on file documented as of this encounter Last Filed Vital Signs Vital Sign Reading Time Taken Comments Blood Pressure 116/72 06/19/2023 1:18 PM EST Pulse 64 06/19/2023 1:18 PM EST Temperature 36.8 C (98.2 F) 06/19/2023 1:18 PM ES T Respiratory Rate 16 06/19/2023 1:18 PM EST Oxygen Saturation - - Inhaled Oxygen Concentration - - Weight 116.8 kg (257 lb 8 oz) 06/19/2023 1:18 PM EST Height - - Body Mass Index 40.33 06/08/2023 11:10 AM EST documented in this encounter Functional Status Functional Status Response [...] No 06/05/2019 documented as of this encounter Progress Notes * Nabila Fields CRNP - 06/19/2023 1:30 PM EST Cardiology Outpatient Visit 06/19/2023 Primary Fuel Cell Designer: Dr. Hanna Past medical history: Paroxysmal atrial fibrillation [id number] score of 3 (age 1, female) --not on anticoagulation due to history of GI bleed Chronic diastolic CHF H/o aortic stenosis, s/p TAVR 05/09/2019 (#23 Hammond Bulmaro valve) at [facility] Widely patent coronary arteries per pre TAVR cardiac cath, 02/2019 Hyperlipidemia COPD Obesity GERD CKD stage 3 History of staphylococcal pneumonia with bacteremia secondary to influenza, 05/2019 HPI 72-year-old female presenting to the cardiology office today in routine follow- up. Was last evaluated by Dr. Hanna approximately 6 months ago. Today the patient presents with her sister, Theresa, whom she lives with. From a cardiac standpoint she is feeling well. Denies any exertional chest pain or unusual shortness of breath. No palpitations, lightheadedness or dizziness. Has chronic orthopnea and sleeps in a recliner but does not appear volume overloaded. No lower extremity edema. She does have a productive cough that has been going onsince April-- was treated for pneumonia at the time. No fever or chills. Patient is compliant with all medications, and offers no side effects. Current Outpatient Medications Medication Sig Dispense Refill aspirin 81 MG chewable tablet Take 1 Tab by mouth daily. with food. 100 Tab 5 vitamin c (ASCORBIC ACID) 250 MG Tablet DAILY@12 30 Tab 5 Acetaminophen 325 MG Oral Tablet Take 500 mg by mouth every 6 hours as needed for Pain. Ipratropium-Albuterol 0.5-2.5 (3) MG/3ML Inhalation Solution (Duoneb) INHALE 1 VIAL EVERY 4 TO 6 HOURS NEEDED FOR WHEEZING 360 mL 2 Compressor Nebulizer Inhale via nebulizer . Use as directed. 1 Each 1 Pulse Oximeter Deluxe Use as directed . 1 Each 1 Nebulizer/Tubing/Mouthpiece Kit Use to nebulize medicaitons 1 Kit 1 Metoprolol Succinate ER 25 MG Oral Tablet Extended Release 24 Hour (toPROL XL) TAKE 1 TABLET BY MOUTH EVERY DAY IN THE MORNING 90 Tablet 2 Diclofenac Sodium 1 % External Gel Apply topically to affected area 4 times a day as needed. Furosemide 20 MG Oral Tablet (Lasix) TAKE 2 TABLETS BY MOUTH EVERY MORNING 180 Tablet 1 Ferrous Sulfate 325 (65 Fe) MG Oral Tablet (Feosol) TAKE 1 TABLET BY MOUTH EVERY DAY AT 12 90 Tablet 3 Magnesium Oxide 400 MG Oral Tablet Take 1 Tablet by mouth in the morning and 1 Tablet before bedtime. 180 Tablet 1 Clopidogrel Bisulfate 75 MG Oral Tablet (pLAVix) TAKE 1 TABLET BY MOUTH EVERY DAY IN THE MORNING 90Tablet 3 Pantoprazole Sodium 40 MG Oral Tablet Delayed Release (Protonix) Take 1 Tablet by mouth in the morning and 1 Tablet before bedtime. 180 Tablet 1 Simvastatin 10 MG Oral Tablet (Zocor) TAKE 1 TABLET BY MOUTH EVERYDAY AT BEDTIME 90 Tablet 1 Floranex Oral Tablet Take 2 Each by mouth in the morning and 2 Each before bedtime. 360 Tablet 3 Amiodarone HCl 200 MG Oral Tablet (Cordarone) Take 1 Tablet by mouth in the morning. 90 Tablet 3 Levothyroxine Sodium 50 MCG Oral Tablet (Levoxyl) Take 1 Tablet by mouth in the morning. on an empty stomach.. 90 Tablet 3 Albuterol Sulfate HFA 108 (90 Base) MCG/ACT Inhalation Aerosol Solution INHALE 2 PUFFS BY MOUTH EVERY 6 HOURS NEEDED FOR WHEEZING 54 g 1 Famotidine 10 MG Oral Tablet (Heartburn Relief) Take 1 Tablet by mouth in the morning. 90 Tablet 1 traMADol HCl 50 MG Oral Tablet (Ultram) Take 1 Tablet by mouth every 12 hours as needed for Pain, Moderate. 60 Tablet 0 Ketoconazole 2 % External Cream APPLY TOPICALLY TO AFFECTED AREA 2 TIMES A DAY FOR 14 DAYS. APPLY TO AFFECTED AREA AFTER DRYING SKIN 60 g 2 Flovent HFA 110 MCG/ACT Inhalation Aerosol 1 puff each morning 36 g 1 Topiramate 50 MG Oral Tablet (Topamax) One tab morning, one tab mid day and half tab at bedtime formigraine prevention (Patient taking differently: Take 0.5 Tablets by mouth in the morning and 0.5 Tablets at noon and 0.5 Tablets before bedtime. One tab morning, one tab mid day and half tab at bedtime for migraine prevention.) 225 Tablet 1 Tiotropium Breeden-Olodaterol 2.5-2.5 MCG/ACT Inhalation Aerosol Solution (Stiolto Respimat) Inhale2 Puffs by mouth in the morning. (Patient not taking: Reported on 06/19/2023) 4 g 3 Riboflavin 400 MG Oral Capsule Take 1 Capsule by mouth in the morning. (Patient not taking: Reported on 06/19/2023) 90 Capsule 1 No current facility-administered medications for this visit. Past Medical History: Diagnosis Date Aortic stenosis Arthritis of knee Asthma Dyslipidemia, goal to be determined Esophageal reflux Morbid obesity (HCC) Stomach ulcer 04/2011 Past Surgical History: Procedure Laterality Date BILE TRACT SURGERY PROCEDURE NEC CHOLECYSTOTOMY OR CHOLECYSTOSTOMY, OPEN COLONOSCOPY, DIAGNOSTIC (RECTUM) 07/18/2018 adenomatous polyp, poor prep, repeat 1 yr / INPT [facility] EGD, FLEXIBLE, DIAGNOSTIC 01/08/2018 normal bx/[facility] EGD, FLEXIBLE, DIAGNOSTIC 07/18/2018 gastric ulcer, repeat 2 mo / INPT [facility] EGD, FLEXIBLE, DIAGNOSTIC 09/11/2018 gastric ulcer, hiatal hernia, repeat 2 mo/[facility] EGD, FLEXIBLE, DIAGNOSTIC 10/24/2018 healed gastric ulcer w/ inflammation on bx, hiatal hernia / [facility] REPLACE AORTIC VALVE, PERCUTANEOUS FEMORAL N/A 05/09/2019 REPLACE AORTIC VALVE, PERCUTANEOUS FEMORAL performed by Bakari Morrison MD at [facility] REPLACE AORTIC VALVE, PERCUTANEOUS FEMORAL 05/09/2019 REPLACE AORTIC VALVE, PERCUTANEOUS FEMORAL performed by Corby Hale MD at [facility] Social History Tobacco Use Smoking status: Former Current packs/day: 0.00 Average packs/day: 0.5 packs/day for 30.0 years (15.0 ttl pk-yrs) Types: Cigarettes Start date: 06/18/1988 Quit date: 06/18/2018 Years since quittin.0 Smokeless tobacco: Never Vaping Use Vaping Use: Never used Substance Use Topics Alcohol use: No Drug use: No Review of patient's allergies indicates: Allergen Reactions Azithromycin Facial redness, swelling, itching, watery eyes Depo-Medrol [Methylprednisolone Sodium Succ] Food (See Comments) Duck eggs Swelling Hay Fever [Pollen] Nystatin Allergic reaction Pollen Extract Other reaction(s): HAYFEVER Dog Dander Other reaction(s): Sneezing Review of Systems: See HPI for pertinent positives. All others negative, other than those noted in HPI. Physical Exam BP 116/72 (BP Site: Left Arm, BP Position: Sitting, BP Cuff Size: Large) | Pulse 64 | Temp 36.8 C(98.2 F) (Tympanic) | Resp 16 | Wt 116.8 kg (257 lb 8 oz) | BMI 40.33 kg/m | BSA 2.35 m General: No acute distress. A+Ox3. HEENT: Normocephalic. Atraumatic. Conjunctiva and sclera clear. NECK: No carotid bruits. No JVD. Carotid upstrokes are brisk. Heart: RRR. S1 and S2 noted. +2/6 systolic murmur Lungs: Coarse breath sounds with rhonchi and wheezes. + moist cough Abdomen: Normal bowel sounds. Soft. Nontender. No masses or organomegaly. No abdominal bruits. Extremities: No edema. No clubbing or cyanosis. Pulses: radial=2/4, posterior tibial=2/4, dorsalis pedis = 2/4. NEURO: No focal deficits. PSYCH: Normal. Lab data/imaging study review: Echo 05/2019 The examination is limited quality but adequate for evaluation of the referral indication. The qualitative LV ejection fraction is >70% (hyperdynamic). No LV segmental wall motion abnormalities. The right ventricular size is qualitatively normal. Image resolution does not allow for accurate measurement. The right ventricular systolic function is qualitatively normal. The patient is status post TAVR with Bulmaro type prosthetic valve. The peak velocity is significantly elevated at 4 m/s with a mean gradient is 31 mmHg. This is only mildly higher than prior TTE dated 05-10-18 and EOA is the same suggesting increase in flow and not significant change in valve opening. No significant paravalvular leak is appreciated. Impression/Plan: This is a 72 year old female who is being evaluated in the cardiology office for ongoing care/risk management for PAF, HFpEF, s/p TAVR. 1. Paroxysmal atrial fibrillation (HCC) -Paroxysmal atrial fibrillation -[id number] score of 3 (age 1, female) 1. Continue metoprolol succinate 12.5 mg daily 2. Continue amiodarone 200 mg daily 3. Not on AC due to history of GIB. 2. Chronic heart failure with preserved ejection fraction (HCC) -NYHA class 3 Patient appears euvolemic on exam-- Continue Furosemide 40 mg daily Cough possibly related to COPD--however, will obtain CXR following today's appt to rule out PNA/CHF 3. S/P TAVR (transcatheter aortic valve replacement) -H/o aortic stenosis, s/p TAVR 05/09/2019 (#23 Hammond Bulmaro valve) at [facility] 1. Repeat resting echo to reassess TAVR gradients 4. Dyslipidemia, goal LDL below 100 -LDL 72, controlled. 1. Continue Simvastatin 10 mg daily Planning on routine blood work with PCP in the spring. The patient agrees to the above plan and will call with additional questions or concerns. ER with all emergencies advised. Follow Up: Return in about 6 months (around 12/18/2023). I spent a total of 40 minutes on the date of service in preparation, delivery, and documentation ofthe care provided to Celia Marshall excluding any time spent in the performance of separately billed services. GOYO Ahmadi, Department of Cardiology This chart was completed in part utilizing [employer] Speech Voice Recognition Software. Grammatical errors, random word insertions, prounoun errors, and incomplete sentences are an occasional consequence of this system due to software limitations, ambient noise, and hardware issues. Any formal questions or concerns about the content, text, or information contained within the body of this dictation should be directly addressed to the provider for clarification. documented in this encounter Nursing Notes * Oralia Caballero CMA - 06/19/2023 1:08 PM EST Examination Room: 7 Name: Celia Marshall Date of : (1950). Reason for Visit: 4M f/u Interim Hospitalization(s): none Problems/Concerns: denies Chest Pain/SOB: Denies CP or worsening SOB. C/o productive cough for "awhile." [facility] Discussed: Not applicable [facility] is a way you can talk to your provider online through e-mail. Would you like to sign up? I can activate it for you? DECLINES Patient was instructed to not get up on the exam table until directed and assisted by their provider; patient is to remain seated in the chair/ wheelchair/ exam table for fall prevention and safety reasons. Patient is aware to have assistance to step down off exam table with personnel. Patient voiced full comprehension of instructions. documented in this encounter Miscellaneous Notes * Result Encounter Note - Markell Linton MD - 06/20/2023 1:02 PM EST Noted. Markell Linton MD * Result Encounter Note - Nabila Fields CRNP - 06/20/2023 11:08 AM EST Patient presented yesterday with a chronic moist productive cough. Chest x-ray showing a mild residual infiltrates. Recently treated for pneumonia. Would recommend cautiously increasing furosemide to 60 mg daily x3 days to see if this helps symptoms. Repeat a BMP in 1 week. If symptoms do not improve she will need to follow-up with her PCP. Consider CT of the chest? Nursing-- please call patient's sister (Theresa) with instructions. TEREZA Linton documented in this encounter Plan of Treatment Upcoming Encounters Date Type Department Care Team (Late st Contact Info) Description 08/30/2023 8:30 AM EDT Laboratory Laboratory, [place] [address] [facility] [place] [id number] [facility] [address] [facility] [address] 09/05/2023 8:15 AM EDT Cardiac Studies Cardiac Studies, [facility] [address] [place] [address] 09/06/2023 8:20 AM EDT Office Visit Family Practice, [place] [address] [facility] [place] [id number] August, Markell Heller MD [address] [facility] [place] [address] Scheduled Orders Name Type Priority Associated Diagnoses Orde r Schedule ECHO, COMPLETE (2D), TRANS-THORACIC Echocardiology Routine Paroxysmal atrial fibrillation (HCC) Chronic heart failure with preserved ejection fraction (HCC) S/P TAVR (transcatheter aortic valve replacement) Dyslipidemia, goal LDL below 100 Expected: 06/19/2023, Expires: 06/19/2024 Health Maintenance Due Date Last Done Comments Alpha-1 Antitrypsin 1966 Mammogram 1988 Cologuard 1993 Fecal Occult Blood Test 1993 Sigmoidoscopy 1993 Zoster Vaccines (1 of 2) 1998 Pneumococcal Vaccine: 65+ Years (3 of 3 - PPSV23 or PCV20) 07/02/2018 11/25/2016, 07/02/2013 *ADVANCE DIRECTIVE NOT ON FILE 10/06/2018 Depression Screening 12/07/2020 12/08/2019 DXA Scan 06/06/2021 06/06/2014 CKD PHOS USE SMARTSET 16318 11/17/2021 11/17/2020 COVID-19 Vaccine ( season) 2022 Influenza Vaccine (FLU shot) (#1) 2022 03/12/2013 Albumin/Creatinine Ratio 01/14/2023 01/14/2022 DTaP,Tdap,and Td Vaccines (2 - Td or Tdap) 07/03/2023 07/02/2013 GFR 09/06/2023 03/08/2023, 08/23, 04/26/2022, Additional history exists CKD HGB USE SMARTSET 84196 03/08/202403/08, 09/13/2022, 04/26/2022, Additional history exists TSH [...] Not on filedocumented as of this encounter Procedures Procedure Name Priority Date/Time Associated Diagnosis Comments XR CHEST 2 VIEWS Routine 06/19/2023 1:56 PM EST Paroxysmal atrial fibrillation (HCC) Chronic heart failure with preserved ejection fraction (HCC) S/P TAVR (transcatheter aortic valve replacement) Dyslipidemia, goal LDL below 100 documented in this encounter Results * XR CHEST 2 VIEWS (06/19/2023 1:56 PM EST) Anatomical Region Laterality Modality Chest Computed Radiogr aphy 06/19/2023 6:23 PM EST Impressions 06/19/2023 6:21 PM EST IMPRESSION Mild residual infiltrates. Narrative 06/19/2023 6:21 PM EST EXAM XR CHEST 2 VIEWS - 06/19/2023 1:56 pm HISTORY "productive cough" TECHNIQUE Frontal and lateral views of the chest were obtained. COMPARISON 06/06/2019 FINDINGS Previously demonstrated parenchymal infiltrates have significantly improved with minimal residual opacities on the current exam. No pleural effusion or pneumothorax. Normal heart size. Cardiac valve prosthesis. Cholecystectomy clips. Procedure Note Yann Mauricio MD - 06/19/2023 EXAM XR CHEST 2 VIEWS - 06/19/2023 1:56 pm HISTORY "productive cough" TECHNIQUE Frontal and lateral views of the chest were obtained. COMPARISON 06/06/2019 FINDINGS Previously demonstrated parenchymal infiltrates have significantlyimproved with minimal residual opacities on the current exam. No pleuraleffusion or pneumothorax. Normal heart size. Cardiac valve prosthesis. Cholecystectomy clips. IMPRESSION IMPRESSION Mild residual infiltrates. [facility]a [facility] ([facility]) documented in this encounter Visit Diagnoses Diagnosis Paroxysmal atrial fibrillation (HCC)- Primary Atrial fibrillation Chronic heart failure with preserved ejection fraction (HCC) S/P TAVR (transcatheter aortic valve replacement) Heart valve replaced by other means Dyslipidemia, goal LDL below 100 Other and unspecified hyperlipidemia documented in this encounter Advance Directives Documents on File Type Date Recorded Patient Locker Room Clerk Expl anation Power of Corn Cutter Operator 04/06/2023 POWER OF A TTORNEY Latest Code [...] and were consensually agreed upon. Care Teams Information And Referral Director Relationship Specialty Start Date End Date August, Markell Heller MD [address] [facility] [place] [address] PCP - General Family Medicine 03/30/23 documented as of this encounter
--- OUTSIDE RECORDS SUMMARY | 2023-07-16 14:45 | External Medical Summary | Summary of Care ---
Author Name Unknown Organization [facility] Address [address] [facility] [address] Phone [phone] Care Team Providers Care Shuffle Board Operator Name Role Phone Markell Linton MD Primary Care Provider [phone] Reason for Visit * Reason Onset Date Comments Medication Question 06/09/2023 gabapentin Encounter Details Date Type Department Care Team (Late st Contact Info) Description 06/09/2023 Telephone Cardiology, [facility] [address] [place] [address] Corby Hanna DO [address] [place] [address] Medication Question (gabapentin) Allergies Active Allergy Reactions [...] WHEEZING 54 g 1 04/02/2023 Active Tiotropium [place]-Olodaterol 2.5-2.5 MCG/ACT Inhalation Aerosol Solution (Stiolto Respimat)Indications [...] Capsule (Neurontin) Theresa can be reached at [phone] Thank you BASILIA Cline documented in this encounter Plan of Treatment Upcoming Encounters Date Type Department Care Team (Late st Contact Info) Description 06/19/2023 1:30 PM EST Office Visit Cardiology, [facility] [address] [place] [address] Nabila Fields CRNP [address] [place] [address] 08/30/2023 8:30 AM EDT [address] [id number] [place], [facility] [address] [facility] [address] 09/06/2023 8:20 AM EDT Office Visit [facility], [place] [address] [facility] [place] [address] AugustMarkell MD [address] [facility] [place] [address] Health Maintenance Due Date Last Done Comments Alpha-1 Antitrypsin 1966 Mammogram 1988 Cologuard 1993 Fecal Occult Blood Test 1993 Sigmoidoscopy 1993 Zoster Vaccines (1 of 2) 1998 Pneumococcal Vaccine: 65+ Years (3 of 3 - PPSV23 or PCV20) 07/02/2018 11/25/2016, 07/02/2013 *ADVANCE DIRECTIVE NOT ON FILE 10/06/2018 Depression Screening 12/07/2020 12/08/2019 DXA Scan 06/06/2021 06/06/2014 CKD PHOS USE SMARTSET 16146 11/17/2021 11/17/2020 COVID-19 Vaccine ( - 2022- season) 2022 Influenza Vaccine (FLU shot) (#1) 2022 03/12/2013 Albumin/Creatinine Ratio 01/14/2023 01/14/2022 DTaP,Tdap,and Td Vaccines (2 - Td or Tdap) 07/03/2023 07/02/2013 GFR 09/06/2023 03/08/2023, 05/2 06/2022, 04/26/2022, Additional history exists CKD HGB USE SMARTSET 28439 03/08/202403/08, 09/13/2022, 04/26/2022, Additional history exists TSH [...] Documents on File Type Date Recorded Patient Clerk Checker Expl anation Power of Easement Worker 04/06/2023 POWER OF A TTORNEY Latest Code [...] and were consensually agreed upon. Care Teams Shuffle Board Operator Relationship Specialty Start Date End Date August, Markell Heller MD [address] [facility] [place] [address] PCP - General Family Medicine 03/30/23 documented as of this encounter
--- OUTSIDE RECORDS SUMMARY | 2023-07-16 14:45 | External Medical Summary | Summary of Care ---
Author Name Unknown Organization [facility] Address [address] [place] [address] Phone [phone] Care Team Providers Care Carbonation Equipment Operator Name Role Phone Markell Linton MD Primary Care Provider [phone] Reason for Referral * Precert (Within 10 days (routine)) - Pending Review Specialty Diagnoses / Procedures Referred By Contac t Referred To Contact Cardiac Studies Diagnoses Paroxysmal atrial fibrillation (HCC) Chronic heart failure with preserved ejection fraction (HCC) S/P TAVR (transcatheter aortic valve replacement) Dyslipidemia, goal LDL below 100 Procedures ECHO, COMPLETE (2D), TRANS-THORACIC Nabila Fields CRNP [address] [place] [address] Referral ID Status Reason Start Date Expiration Date Visits Requested Visits Authorized [id number] Pending Review Precert 06/19/2023 999 999 Reason for Visit * Reason Comments Follow Up Encounter Details Date Type Department Care Team (Late st Contact Info) Description 06/19/2023 1:30 PM EST Office Visit Cardiology, [facility] [address] [place] [address] Nabila Fields CRNP [address] [place] [address] Paroxysmal atrial fibrillation (HCC)*; Chronic heart failure [...] as of this encounter (statuses as of 06/19/2023) Medications Medication Sig Dispensed Refills Start Date [...] group C, by GOLD 2017 classification ([facility]) Inhale via nebulizer . Use as directed. 1 Each 1 04/21/2022 Active Pulse Oximeter Deluxe Use as directed . 1 Each 1 04/21/2022 Active Nebulizer/Tubing/Mo uthpiece KitIndications:COPD , group C, by GOLD 2017 classification ([facility]) Use to nebulize medicaitons [...] heart failure, unspecified heart failure type ([facility]),PAULETTE (acute kidney injury) ([facility]) TAKE 2 TABLETS BY [...] group C, by GOLD 2017 classification ([facility]),Asthma with irreversible airway obstruction, unspecified asthma severity, uncomplicated ([facility]) INHALE 2 PUFFS BY MOUTH EVERY 6 HOURS NEEDED FOR WHEEZING 54 g 1 04/02/2023 Active Tiotropium [place]-Olodaterol 2.5-2.5 MCG/ACT Inhalation Aerosol Solution (Stiolto Respimat)Indication s:COPD, group C, by GOLD 2017 classification ([facility]) Inhale 2 Puffs by [...] group C, by GOLD 2017 classification ([facility]) 1 puff each morning [...] as of this encounter (statuses as of 06/19/2023) Active Problems Problem Noted Date Diagnosed Date [...] as of this encounter (statuses as of 06/19/2023) Resolved Problems Problem Noted Date Diagnosed Date [...] as of this encounter (statuses as of 06/19/2023) Immunizations Name Administration Dates Next Due Pneumococcal [...] PM EST Cardiology Outpatient Visit 06/19/2023 Primary Greeter Guest Services: Dr. Hanna Past medical history: Paroxysmal atrial fibrillation [id number] score of 3 (age 1, female) --not on anticoagulation due to history of GI bleed Chronic diastolic CHF H/o aortic stenosis, s/p TAVR 05/09/2019 (#23 [place] Bulmaro valve) [place] [facility] [place] Widely patent coronary arteries per pre TAVR [...] for migraine prevention.) 225 Tablet 1 Tiotropium [place]-Olodaterol 2.5-2.5 MCG/ACT Inhalation Aerosol Solution (Stiolto Respimat) [...] poor prep, repeat 1 yr / INPT [facility] EGD, FLEXIBLE, DIAGNOSTIC 01/08/2018 normal bx/[facility] EGD, FLEXIBLE, DIAGNOSTIC 07/18/2018 gastric ulcer, repeat 2 mo / INPT [facility] EGD, FLEXIBLE, DIAGNOSTIC 09/11/2018 gastric ulcer, hiatal hernia, repeat 2 mo/[facility] EGD, FLEXIBLE, DIAGNOSTIC 10/24/2018 healed gastric ulcer w/ inflammation on bx, hiatal hernia / [facility] REPLACE AORTIC VALVE, PERCUTANEOUS FEMORAL N/A 05/09/2019 REPLACE AORTIC VALVE, PERCUTANEOUS FEMORAL performed by Bakari Morrison MD at [facility] [place] REPLACE AORTIC VALVE, PERCUTANEOUS FEMORAL 05/09/2019 REPLACE AORTIC VALVE, PERCUTANEOUS FEMORAL performed by Corby Hale MD at [facility] [place] Social History Tobacco Use Smoking status: Former [...] Paroxysmal atrial fibrillation (HCC) -Paroxysmal atrial fibrillation -[id number] score of 3 (age 1, female) 1. [...] TAVR 05/09/2019 (#23 Hammond Bulmaro valve) at [facility] 1. Repeat resting echo to reassess TAVR [...] This chart was completed in part utilizing [employer] Speech Voice Recognition Software. Grammatical errors, random [...] comprehension of instructions. documented in this encounter Plan of Treatment Upcoming Encounters Date Type Department Care Team (Late st Contact Info) Description 08/30/2023 8:30 AM EDT Laboratory Laboratory, [place] [address] [facility] [phone] [facility] [address] [facility] [address] 09/05/2023 8:15 AM EDT Cardiac Studies Cardiac Studies, [facility] [place] [address] [facility] [place] [address] 09/06/2023 8:20 AM EDT Office Visit [facility] [address] [facility] [place] [phone] Markell Linton MD [address] [facility] [place] [address] Pending Results Name Type Priority Associated Diagnoses Date /Time XR CHEST 2 VIEWS Medical Imaging Routine Paroxysmal atrial fibrillation (HCC) Chronic heart failure with preserved ejection fraction (HCC) S/P TAVR (transcatheter aortic valve replacement) Dyslipidemia, goal LDL below 100 06/19/2023 1:56 PM EST Scheduled Orders Name Type Priority Associated Diagnoses [...] Scan 06/06/2021 06/06/2014 CKD PHOS USE SMARTSET 61064 11/17/2021 11/17/2020 COVID-19 Vaccine ( season) 2022 Influenza Vaccine (FLU shot) (#1) 2022 03/12/2013 Albumin/Creatinine Ratio 01/14/2023 01/14/2022 DTaP,Tdap,and Td Vaccines (2 - Td or Tdap) 07/03/2023 07/02/2013 GFR 09/06/2023 03/08/2023, 05/2 06/2022, 04/26/2022, Additional history exists CKD HGB USE SMARTSET 65048 03/08/202403/08, 09/13/2022, 04/26/2022, Additional history exists TSH [...] as of this encounter Visit Diagnoses Diagnosis Paroxysmal atrial fibrillation (HCC)- Primary Atrial fibrillation Chronic heart failure with preserved ejection fraction (HCC) S/P TAVR (transcatheter aortic valve replacement) Heart valve replaced by other means Dyslipidemia, goal LDL below 100 Other and unspecified hyperlipidemia documented in this encounter Advance Directives Documents on File Type Date Recorded Patient Manager Transportation Expl anation Power of Shear Operator Helper 04/06/2023 POWER OF A TTORNEY Latest [...] and were consensually agreed upon. Care Teams Carbonation Equipment Operator Relationship Specialty Start Date End Date August, Markell Heller MD [address] [facility] [place] [address] PCP - General Family Medicine 03/30/23 documented as of this encounter
--- OUTSIDE RECORDS SUMMARY | 2023-07-16 14:45 | External Medical Summary | Summary of Care ---
Author Name Unknown Organization [facility] Address [address] [place] [address] Phone [phone] Care Team Providers Care Product Technician Name Role Phone Markell Linton MD Primary Care Provider Reason for Visit * Reason Comments Follow Up 3 month return Encounter Details Date Type Department Care Team (Latest Contact Info) Description 06/08/2023 11:20 AM EST Office Visit [facility] [address] [place] [address] Chana Stacy PA-C [address] [place] [address] Other polyneuropathy*; Chronic daily headache; COPD, group C, by GOLD 2017 classification ([facility]); Mammogram declined; Congestive heart failure due to valvular disease ([facility]); Paroxysmal atrial fibrillation ([facility]); Morbid obesity ([facility]); Chronic kidney disease, stage 3b ([facility]) Allergies Active Allergy Reactions Criticality Noted Date Comments Methylprednisolone Sodium Succ 12/06 Dog Dander Low 03/20/2019 Other reaction(s): Sneezing Food (See Comments) 02/23/2018 Duck eggs Swelling Pollen 08/25/2015 Nystatin 01/17/2019 Allergic reaction Pollen Extract 03/20/2019 Other reaction(s): HAYFEVER documented as of this encounter (statuses as of 06/08/2023) Medications Medication Sig Dispensed Refills Start Date [...] bedtime 400 g 0 01/14/2022 Active Compressor NebulizerIndication s:COPD, group C, by GOLD 2017 classification ([facility]) Inhale via nebulizer . Use as directed. 1 Each 1 04/21/2022 Active Pulse Oximeter Deluxe Use as directed . 1 Each 1 04/21/2022 Active Nebulizer/Tubing/Mo uthpiece KitIndications:COPD , group C, by GOLD 2017 classification ([facility]) Use to nebulize medicaitons 1 Kit [...] congestive heart failure, unspecified heart failure type ([facility]),PAULETTE (acute kidney injury) ([facility]) TAKE 2 TABLETS BY MOUTH EVERY [...] bedtime. 180 Tablet 1 03/12/2023 Active Transparent DressingsIndication s:Decubitus ulcer of ischial area, unspecified laterality, unspecified ulcer stage Use daily as needed for pressure sores. 25 Each 1 03/14/2023 Active Clopidogrel Bisulfate 75 MG Oral Tablet (pLAVix)Indications :Congestive heart failure due to valvular disease ([facility]) TAKE 1 TABLET BY MOUTH EVERY [...] MG Oral Tablet (Cordarone)Indicati ons:Paroxysmal atrial fibrillation ([facility]) Take 1 Tablet by mouth in the morning. 90 Tablet 3 03/21/2023 Active Levothyroxine Sodium 50 MCG Oral Tablet (Levoxyl)Indication s:Hypothyroidism, unspecified type Take 1 Tablet by mouth in the morning. on an empty stomach.. 90 Tablet 3 03/21/2023 Active Albuterol Sulfate HFA 108 (90 Base) MCG/ACT Inhalation Aerosol SolutionIndications :COPD, group C, by GOLD 2017 classification ([facility]),Asthma with irreversible airway obstruction, unspecified asthma severity, uncomplicated ([facility]) INHALE 2 PUFFS BY MOUTH EVERY 6 HOURS NEEDED FOR WHEEZING 54 g 1 04/02/2023 Active Tiotropium [place]-Olodaterol 2.5-2.5 MCG/ACT Inhalation Aerosol Solution (Stiolto Respimat)Indication s:COPD, group C, by GOLD 2017 classification ([facility]) Inhale 2 Puffs by mouth in [...] 05/16/2023 Active Gabapentin 300 MG Oral Capsule (Neurontin)Indicati ons:Other polyneuropathy Take 1 Capsule by mouth at bedtime. 90 Capsule 0 06/08/2023 Active Topiramate 25 MG Oral Tablet (topAMAX)Indication s:Chronic daily headache 2 tab am, 2 tab mid day and 1 tab at bedtime for migraine / headache prevention 450 Tablet 3 06/08/2023 Active Riboflavin 400 MG Oral CapsuleIndications: Chronic [...] COPD, group C, by GOLD 2017 classification ([facility]) 1 puff each morning 36 g 1 06/08/2023 Active Ketoconazole 2 % External Cream APPLY TOPICALLY TO AFFECTED AREA 2 TIMES A DAY FOR 14 DAYS. APPLY TO AFFECTED AREA AFTER DRYING SKIN 30 g 1 03/03/2022 4 Discontinu ed(Refill) Flovent HFA 110 MCG/ACT Inhalation Aerosol 0 02/08/2023 4 Discontinu ed(Refill) Topiramate 25 MG Oral Tablet (topAMAX)Indication s:Chronic daily headache 1 tab by mouth three times a day 270 Tablet 3 03/21/2023 4 Discontinu ed(Refill) documented as of this encounter (statuses as of 06/08/2023) Active Problems Problem Noted Date Diagnosed Date [...] as of this encounter (statuses as of 06/08/2023) Resolved Problems Problem Noted Date Diagnosed Date [...] as of this encounter (statuses as of 06/08/2023) Immunizations Name Administration Dates Next Due Pneumococcal Conjugate Vacc, 13 Valent (Prevnar) 11/25/2016 Pneumococcal Polysaccharide PPV23 (Pneumovax) Seasonal Influenza, Split, IIV3, With Preserve, Inj 03/12/2013 TDAP (age 10 and older)(Boostrix) 07/02/2013 documented as of this encounter Social History Tobacco Use Types Packs/Day Years Used Date Smoking Tobacco: Former Cigarettes 0.5 30 Q uit: 06/18/2018 Smokeless Tobacco: Never Tobacco Cessation:Counseling Given: [...] Sign Reading Time Taken Comments Blood Pressure 124/80 06/08/2023 11:10 AM EST Pulse 57 06/08/2023 11:10 AM EST Temperature 36.8 C (98.2 F) 06/08/2023 11:[address] Respiratory Rate 16 06/08/2023 11:10 AM EST Oxygen Saturation 97% 06/08/2023 11:10 AM EST Inhaled Oxygen Concentration - - Weight - - Height 170.2 cm (5' 7") 06/08/2023 11:10 AM EST Body Mass Index - - documented in this encounter Functional Status Functional [...] as of this encounter Progress Notes * Chana Stacy PA-C - 06/08/2023 11:24 AM EST Images from the original note were not included. History of Present Illness Celia Marshall is a 72 year old female that presents for Follow Up (3 month return ) Here for 3 month return Sister present and is primary historian Was in facility but is now back home with her sister. The facility was terrible. She almost from MRSA. Ended up at [facility] for 13 days She then left on a picc line - this made her arm numb and it bothers her. This is her R arm. She cannot sleep at night because of this. Tramadol does not work well. Has terrible headaches. Whole family has migraine. She is taking daily topamax. No different than before. Needs refill of her ketoconazle. Gets yeasty rash under breasts Needs Flovent. She was given stiolto but it is not working. Too difficult to use. They had griffin put it together and it broke. She wants to go back on flovent if possible. Past Medical History: Diagnosis Date Aortic stenosis Arthritis of knee Asthma Dyslipidemia, goal to be determined Esophageal reflux Morbid obesity (HCC) Stomach ulcer 04/2011 Extensive ROS Constitutional (f/c/wt/vision/hearing): Negative and eye exam due, L eye joseph like crazy and R isblurry Resp (cough/sob/mancini): see above hpi CV (cp/palp/fluttering/diaphoresis/mancini/pnd):Negative GI (n/v/d/hrtburn): Negative Endo (hair/cold or heat intol/ 3 p's): Negative Neuro (shaking/weak/fatigu/parasthesi/): Negative Skin (rash/easy bruis/xerosis): Negative Psy (si/hi/halluc/): Negative (nocturia/hesit/drib/sexual review): Negative Lymph (swollen glands/b sx's/: Negative Physical Exam Vitals: 06/08/23 1110 Temp: 36.8 C (98.2 F) Pulse: 57 Resp: 16 SpO2: 97% BP: 124/80 BP Readings from Last 3 Encounters: 06/08/23 124/80 03/29/23 110/72 03/22/23 130/62 Wt Readings from Last 3 Encounters: 03/29/23 110.9 kg (244 lb 9.6 oz) 03/22/23 108.6 kg (239 lb 6.4 oz) 06/06/22 (!) 137 kg (302 lb) BMI Readings from Last 3 Encounters: 06/08/23 38.31 kg/m 03/29/23 38.31 kg/m 03/22/23 37.50 kg/m Ht Readings from Last 3 Encounters: 06/08/23 1.702 m (5' 7") 06/06/22 1.702 m (5' 7") 02/14/20 1.702 m (5' 7") General: alert, healthy, and no distress Head: Normocephalic, No masses, lesions, tenderness or abnormalities Eye Exam: PERRLA, extraocular movements intact, conjunctiva are pink and non- injected, sclera clear Ears: External ears normal, Canals clear, TM's Normal Nose: no mucosal erythema, no mucosal edema, no purulent discharge Oropharynx: no exudate, no erythema, lips, buccal mucosa, and tongue normal, and mucous membranes are moist Neck: supple, no adenopathy, no bruits, thyroid normal size, non-tender, without nodularity Heart: regular rate & rhythm, no murmur, no gallops, S-1 normal, and S-2 normal Lungs: chest symmetric with normal AP diameter, no chest deformities noted, no chest wall tenderness, lungs clear to auscultation Back: back symmetric, no curvature, no costovertebral angle tenderness, range of motion is normal Extremities: less than 2 second capillary refill, no joint deformities, effusion, or inflammation Assessment and Plan Other polyneuropathy (Primary) - Gabapentin 300 MG Oral Capsule (Neurontin); Take 1 Capsule by mouth at bedtime. Chronic daily headache - Topiramate 25 MG Oral Tablet (topAMAX); 2 tab am, 2 tab mid day and 1 tab at bedtime for migraine/ headache prevention - Riboflavin 400 MG Oral Capsule; Take 1 Capsule by mouth in the morning. COPD, group C, by GOLD 2017 classification ([facility]) - Flovent HFA 110 MCG/ACT Inhalation Aerosol; 1 puff each morning Mammogram declined Congestive heart failure due to valvular disease (HCC) - on lasix, sees cardiology Paroxysmal atrial fibrillation (HCC) Morbid obesity (HCC) Poor mobility Chronic kidney disease, stage 3b ([facility])- labs due for Dr Linton Other orders - Ketoconazole 2 % External Cream; APPLY TOPICALLY TO AFFECTED AREA 2 TIMES A DAY FOR 14 DAYS. APPLY TO AFFECTED AREA AFTER DRYING SKIN Refill med Try gabapentin for arm neuropathy at bedtime Up dose of topamax Labs coming due before seeing Dr Shaila meneses Wrap-Up Time: I spent a total of 30-39 minutes (exact time 38 mins) on the date of service in preparation, delivery, and documentation of the care provided to Celia Marshall excluding any time spent in the performance of separately billed services. Chana Stacy PA-C 06/08/2023 11:46 AM documented in this encounter Nursing Notes * Nikki Navarro CCMA - 06/08/2023 11:10 AM EST Celia Marshall is a 72 year old female who presents today for Chief Complaint Patient presents with Follow Up 3 month return documented in this encounter Plan of Treatment Upcoming Encounters Date Type Department Care Team (Late st Contact Info) Description 06/19/2023 1:30 PM EST Office Visit Cardiology, [facility] [address] [place] [address] Nabila Fields CRNP [address] [place] [address] 08/30/2023 8:30 AM EDT Laboratory Laboratory, [place] [facility] [address] [place] [phone] [place] [address] [place] [facility] [address] 09/06/2023 8:20 AM EDT Office Visit Family Practice, [place] [address] [facility] [place] [phone] August, Markell Heller MD [address] [facility] [address] Health Maintenance Due Date Last Done Comments COVID-19 Vaccine (#1) 03/12/1951 Alpha-1 Antitrypsin 1966 Mammogram 1988 Cologuard 1993 Fecal Occult Blood Test 1993 Sigmoidoscopy 1993 Zoster Vaccines (1 of 2) 1998 Pneumococcal Vaccine: 65+ Years (3 - PPSV23 or PCV20) 07/02/2018 11/25/2016, 07/02/2013 *ADVANCE DIRECTIVE NOT ON FILE 10/06/2018 Depression Screening 12/07/2020 12/08/2019 DXA Scan 06/06/2021 06/06/2014 CKD PHOS USE SMARTSET 84051 11/17/2021 11/17/2020 Influenza Vaccine (FLU shot) (#1) 2022 03/12/2013 Albumin/Creatinine Ratio 01/14/2023 01/14/2022 DTaP,Tdap,and Td Vaccines (2 - Td or Tdap) 07/03/2023 07/02/2013 GFR 09/06/2023 03/08/2023, 05/2 06/2022, 04/26/2022, Additional history exists CKD HGB USE SMARTSET 38014 03/08/202403/08, 09/13/2022, 04/26/2022, Additional history exists TSH 03/08/2024 03/08/2023, 0 10/2020, 05/09/2019, Additional history exists O2 ASSESSMENT [...] as of this encounter Visit Diagnoses Diagnosis Other polyneuropathy- Primary Chronic daily headache Headache COPD, group C, by GOLD 2017 classification (HCC) Mammogram declined Surgical or other procedure not carried out because of patient's decision Congestive heart failure due to valvular disease (HCC) Congestive heart failure, unspecified Paroxysmal atrial fibrillation (HCC) Atrial fibrillation Morbid obesity (HCC) Morbid obesity Chronic kidney disease, stage 3b (HCC) documented in this encounter Advance Directives Documents on File Type Date Recorded Patient Tank Cleaner Expl anation Power of Gate Operator 04/06/2023 POWER OF A TTORNEY Latest [...] and were consensually agreed upon. Care Teams Product Technician Relationship Specialty Start Date End Date August, Markell Heller MD [address] [facility] [place] [address] PCP - General Family Medicine 03/30/23 documented as of this encounter
--- OUTSIDE RECORDS SUMMARY | 2023-07-16 14:45 | External Medical Summary | Summary of Care ---
Author Name Unknown Organization [facility] Address [address] [place] [address] Phone [phone] Care Team Providers Care Neuro Psych Sales Specialist Name Role Phone Markell Linton MD Primary Care Provider [phone] Reason for Visit * Reason Onset Date Comments Test Results 06/21/2023 Encounter Details Date Type Department Care Team (Late st Contact Info) Description 06/21/2023 Telephone Cardiology, [facility] [address] [place] [address] Nabila Fields CRNP [address] [facility] [address] Test Results Allergies Active Allergy Reactions Criticality Noted Date Comments Azithromycin Medium 06/19/2023 Facial redness, swelling, itching, watery eyes Methylprednisolone Sodium Succ 12/06 Dog Dander Low 03/20/2019 Other reaction(s): Sneezing Food (See Comments) 02/23/2018 Duck eggs Swelling Pollen 08/25/2015 Nystatin 01/17/2019 Allergic reaction Pollen Extract 03/20/2019 Other reaction(s): HAYFEVER documented as of this encounter (statuses as of 06/21/2023) Medications Medication Sig Dispensed Refills Start Date [...] WHEEZING 54 g 1 04/02/2023 Active Tiotropium [place]-Olodaterol 2.5-2.5 MCG/ACT Inhalation Aerosol Solution (Stiolto Respimat)Indications [...] as of this encounter (statuses as of 06/21/2023) Active Problems Problem Noted Date Diagnosed Date [...] as of this encounter (statuses as of 06/21/2023) Resolved Problems Problem Noted Date Diagnosed Date [...] as of this encounter (statuses as of 06/21/2023) Immunizations Name Administration Dates Next Due Pneumococcal [...] encounter Miscellaneous Notes * Telephone Encounter - Leonel Warren LPN - 06/21/2023 11:03 AM EST Called patient and informed patient's sister of Nabila's message. Patient's sister verbalized understanding. Lab ordered. ----- Message from GOYO Lee sent at 06/20/2023 11:08 AM EST ----- Patient presented yesterday with a chronic moist [...] Description 08/30/2023 8:30 AM EDT [facility], [place] [address] [facility] [phone] [facility] [address] [facility] [address] 09/05/2023 8:15 AM EDT Cardiac Studies Cardiac Studies, [facility] [address] [facility] [place] [address] 09/06/2023 8:20 AM EDT Office Visit [facility], [place] [address] [facility] [place] [phone] Markell Linton MD [address] [facility] [address] Scheduled Orders Name Type Priority Associated Diagnoses Orde r Schedule BASIC METABOLIC PANEL Lab Routine Encounter for monitoring diuretic therapy Expected: 06/28/2023 (Approximate), Expires: 06/21/2024 Health Maintenance Due Date Last Done Comments Alpha-1 Antitrypsin 1966 Mammogram 1988 Cologuard 1993 Fecal Occult Blood Test 1993 Sigmoidoscopy 1993 Zoster Vaccines (1 of 2) 1998 Pneumococcal Vaccine: 65+ Years (3 of 3 - PPSV23 or PCV20) 07/02/2018 11/25/2016, 07/02/2013 *ADVANCE DIRECTIVE NOT ON FILE 10/06/2018 Depression Screening 12/07/2020 12/08/2019 DXA Scan 06/06/2021 06/06/2014 CKD PHOS USE SMARTSET 68644 11/17/2021 11/17/2020 COVID-19 Vaccine ( - season) 2022 Influenza Vaccine (FLU shot) (#1) 2022 03/12/2013 Albumin/Creatinine Ratio 01/14/2023 01/14/2022 DTaP,Tdap,and Td Vaccines (2 - Td or Tdap) 07/03/2023 07/02/2013 GFR 09/06/2023 03/08/2023, 08/23, 04/26/2022, Additional history exists CKD HGB USE SMARTSET 36989 03/08/202403/08, 09/13/2022, 04/26/2022, Additional history exists TSH [...] as of this encounter Visit Diagnoses Diagnosis Encounter for monitoring diuretic therapy- Primary Encounter for therapeutic drug monitoring documented in this encounter Advance Directives Documents on File Type Date Recorded Patient Six Pack Packer Expl anation Power of Leisure Travel Agent 04/06/2023 POWER OF A TTORNEY Latest Code [...] and were consensually agreed upon. Care Teams Neuro Psych Sales Specialist Relationship Specialty Start Date End Date August, Markell Heller MD [address] [place] [facility] [place] [address] PCP - General Family Medicine 03/30/23 documented as of this encounter
--- OUTSIDE RECORDS SUMMARY | 2023-07-16 14:45 | External Medical Summary | Summary of Care ---
Author Name Unknown Organization [facility] Address [address] [place] [address] Phone [phone] Care Team Providers Care Stack Supervisor Name Role Phone Markell Linton MD Primary Care Provider [phone] Reason for Visit * Reason Onset Date Comments Advice 06/14/2023 Encounter Details Date Type Department Care Team (Late st Contact Info) Description 06/14/2023 [facility] [address] [place] [address] Markell Linton MD [address] [place] [address] Advice Allergies Active Allergy Reactions Criticality Noted Date Comments Methylprednisolone Sodium Succ 12/06 Dog Dander Low 03/20/2019 Other reaction(s): Sneezing Food (See Comments) 02/23/2018 Duck eggs Swelling Pollen 08/25/2015 Nystatin 01/17/2019 Allergic reaction Pollen Extract 03/20/2019 Other reaction(s): HAYFEVER documented as of this encounter (statuses as of 06/15/2023) Medications Medication Sig Dispensed Refills Start Date [...] s:COPD, group C, by GOLD 2017 classification ([facility]) Inhale via nebulizer . Use as directed. 1 Each 1 04/21/2022 Active Pulse Oximeter Deluxe Use as directed . 1 Each 1 04/21/2022 Active Nebulizer/Tubing/Mo uthpiece KitIndications:COPD , group C, by GOLD 2017 classification ([facility]) Use to nebulize medicaitons 1 Kit 1 [...] congestive heart failure, unspecified heart failure type ([facility]),PAULETTE (acute kidney injury) ([facility]) TAKE 2 TABLETS BY MOUTH EVERY MORNING [...] :Congestive heart failure due to valvular disease ([facility]) TAKE 1 TABLET BY MOUTH EVERY DAY [...] MG Oral Tablet (Cordarone)Indicati ons:Paroxysmal atrial fibrillation ([facility]) Take 1 Tablet by mouth in the morning. 90 Tablet 3 03/21/2023 Active Levothyroxine Sodium 50 MCG Oral Tablet (Levoxyl)Indication s:Hypothyroidism, unspecified type Take 1 Tablet by mouth in the morning. on an empty stomach.. 90 Tablet 3 03/21/2023 Active Albuterol Sulfate HFA 108 (90 Base) MCG/ACT Inhalation Aerosol SolutionIndications :COPD, group C, by GOLD 2017 classification ([facility]),Asthma with irreversible airway obstruction, unspecified asthma severity, uncomplicated ([facility]) INHALE 2 PUFFS BY MOUTH EVERY 6 HOURS NEEDED FOR WHEEZING 54 g 1 04/02/2023 Active Tiotropium [place]-Olodaterol 2.5-2.5 MCG/ACT Inhalation Aerosol Solution (Stiolto Respimat)Indication s:COPD, group C, by GOLD 2017 classification ([facility]) Inhale 2 Puffs by mouth in the [...] migraine prevention 225 Tablet 1 06/12/2023 Active Gabapentin 300 MG Oral Capsule (Neurontin)Indicati ons:Other polyneuropathy Take 1 Capsule by mouth at bedtime. 90 Capsule 0 06/08/2023 4 Discontinu ed(Adverse reaction) documented as of this encounter (statuses as of 06/15/2023) Active Problems Problem Noted Date Diagnosed Date [...] as of this encounter (statuses as of 06/15/2023) Resolved Problems Problem Noted Date Diagnosed Date [...] as of this encounter (statuses as of 06/15/2023) Immunizations Name Administration Dates Next Due Pneumococcal [...] encounter Miscellaneous Notes * Telephone Encounter - Chana Stacy PA-C - 06/15/2023 12:23 PM EST Noted Chana Stacy PA-C * Telephone Encounter - Sarah Carmen LPN - 06/15/2023 11:47 AM EST Called and spoke with pt's sister. They had called in yesterday regarding Gabapentin They gave her 1 dose of Gabapentin Monday night. Monday morning, she woke up with weakness in her legs, shaking & wobbly, disoriented (took her a while to get her thoughts out), dizziness Pt states that she would rather put up with the pain than the side effects of the medication. Is not going to take the gabapentin anymore * Telephone Encounter - Wendy Perdue OSA - 06/14/2023 1:35 PM EST Spoke with Theresa patient sister need med advice request call back [phone] Thank you documented in this encounter Plan of Treatment Upcoming Encounters Date Type Department Care Team (Late st Contact Info) Description 06/19/2023 1:30 PM EST Office Visit Cardiology, [facility] [address] [facility] [place] [address] Nabila Fields CRNP [address] [facility] [place] [address] 08/30/2023 8:30 AM EDT Laboratory Laboratory, [place] [address] [place] [phone] [facility] [address] [place] [address] 09/06/2023 8:20 AM EDT Office Visit Family [facility], [place] [address] [place] [address] AugustMarkell MD [address] [place], [place] [id number] Health Maintenance Due Date Last Done Comments Alpha-1 Antitrypsin 1966 Mammogram 1988 Cologuard 1993 Fecal Occult Blood Test 1993 Sigmoidoscopy 1993 Zoster Vaccines (1 of 2) 1998 Pneumococcal Vaccine: 65+ Years (3 of 3 - PPSV23 or PCV20) 07/02/2018 11/25/2016, 07/02/2013 *ADVANCE DIRECTIVE NOT ON FILE 10/06/2018 Depression Screening 12/07/2020 12/08/2019 DXA Scan 06/06/2021 06/06/2014 CKD PHOS USE SMARTSET 46108 11/17/2021 11/17/2020 COVID-19 Vaccine ( season) 2022 Influenza Vaccine (FLU shot) (#1) 2022 03/12/2013 Albumin/Creatinine Ratio 01/14/2023 01/14/2022 DTaP,Tdap,and Td Vaccines (2 - Td or Tdap) 07/03/2023 07/02/2013 GFR 09/06/2023 03/08/2023, 0506/2022, 04/26/2022, Additional history exists CKD HGB USE SMARTSET 02991 03/08/202403/08, 09/13/2022, 04/26/2022, Additional history exists TSH [...] Documents on File Type Date Recorded Patient Oracle Database Manager Expl anation Power of Administrative Job Titles 04/06/2023 POWER OF A TTORNEY Latest Code [...] and were consensually agreed upon. Care Teams Stack Supervisor Relationship Specialty Start Date End Date August, Markell Heller MD [address] [place] [facility] [place] [address] PCP - General Family Medicine 03/30/23 documented as of this encounter
--- OUTSIDE RECORDS SUMMARY | 2023-07-16 14:46 | External Medical Summary | Summary of Care ---
Author Name Unknown Organization [facility] Address [address] [place] [address] Phone [phone] Care Team Providers Care Non Destructive Testing Specialist Name Role Phone Markell Linton MD Primary Care Provider [phone] Reason for Visit * Reason Onset Date Comments Advice 05/10/2023 Encounter Details Date Type Department Care Team (Late st Contact Info) Description [facility]/10/2023 [facility] [address] [place] [address] Markell Linton MD [address] [place] [address] Advice Allergies Active Allergy Reactions Criticality Noted Date Comments Methylprednisolone Sodium Succ 12/06 Dog Dander Low 03/20/2019 Other reaction(s): Sneezing Food (See Comments) 02/23/2018 Duck eggs Swelling Pollen 08/25/2015 Nystatin 01/17/2019 Allergic reaction Pollen Extract 03/20/2019 Other reaction(s): HAYFEVER documented as of this encounter (statuses as of 05/11/2023) Medications Medication Sig Dispensed Refills Start Date [...] at bedtime 400 g 0 01/14/2022 Active Ketoconazole 2 % External Cream APPLY TOPICALLY TO AFFECTED AREA 2 TIMES A DAY FOR 14 DAYS. APPLY TO AFFECTED AREA AFTER DRYING SKIN 30 g 1 03/03/2022 Active Compressor NebulizerIndications :COPD, group C, by GOLD 2017 classification ([facility]) Inhale via nebulizer . Use as directed. 1 Each 1 04/21/2022 Active Pulse Oximeter Deluxe Use as directed . 1 Each 1 04/21/2022 Active Nebulizer/Tubing/Yecenia thpiece KitIndications:COPD, group C, by GOLD 2017 classification ([facility]) Use to nebulize medicaitons 1 [...] and 1 Capsule before bedtime. 0 Active Flovent HFA 110 MCG/ACT Inhalation Aerosol 0 02/08/2023 Active Furosemide 20 MG Oral Tablet (Lasix)Indications:A cute congestive heart failure, unspecified heart failure type (H[facility]),PAULETTE (acute kidney injury) (H[facility]) TAKE 2 TABLETS BY MOUTH EVERY MORNING [...] Congestive heart failure due to valvular disease TAKE 1 TABLET BY MOUTH EVERY DAY IN THE MORNING 90 Tablet 3 03/21/2023 Active Pantoprazole Sodium 40 MG Oral Tablet Delayed Release (Protonix)Indication s:Esophageal reflux Take 1 Tablet by mouth in the morning and 1 Tablet before bedtime. 180 Tablet 1 03/20/2023 Active Topiramate 25 MG Oral Tablet (topAMAX)Indications :Chronic daily headache 1 tab by mouth three times a day 270 Tablet 3 03/21/2023 Active Simvastatin 10 MG Oral Tablet (Zocor) [...] empty stomach.. 90 Tablet 3 03/21/2023 Active traMADol HCl 50 MG Oral Tablet (Ultram)Indications: Bilateral primary osteoarthritis of knee Take 1 Tablet by mouth every 12 hours as needed for Pain, Moderate. 60 Tablet 0 03/22/2023 Active Albuterol Sulfate HFA 108 (90 Base) MCG/ACT Inhalation Aerosol SolutionIndications: COPD, group C, by GOLD 2017 classification ([facility]),Asthma with irreversible airway obstruction, unspecified asthma severity, uncomplicated ([facility]) INHALE 2 PUFFS BY MOUTH EVERY 6 HOURS NEEDED FOR WHEEZING 54 g 1 04/02/2023 Active Tiotropium Coldiron-Olodaterol 2.5-2.5 MCG/ACT Inhalation Aerosol Solution (Stiolto Respimat)Indications :COPD, group C, by GOLD 2017 classification ([facility]) Inhale 2 Puffs by mouth in the morning. 4 g 3 04/05/2023 Active Famotidine 10 MG Oral Tablet (Heartburn Relief)Indications:G astroesophageal reflux disease without esophagitis Take 1 Tablet by mouth in the morning. 90 Tablet 1 04/11/2023 Active documented as of this encounter (statuses as of 05/11/2023) Active Problems Problem Noted Date Diagnosed Date [...] as of this encounter (statuses as of 05/11/2023) Resolved Problems Problem Noted Date Diagnosed Date [...] as of this encounter (statuses as of 05/11/2023) Immunizations Name Administration Dates Next Due Pneumococcal Conjugate Vacc, 13 Valent (Prevnar) 11/25/2016 Pneumococcal Polysaccharide PPV23 (Pneumovax) Seasonal Influenza, Split, IIV3, With Preserve, Inj 03/12/2013 TDAP (age 10 and older)(Boostrix) 07/02/2013 documented as of this encounter Social History Tobacco Use Types Packs/Day Years Used Date Smoking Tobacco: Former Cigarettes 0.5 30 Q uit: 06/18/2018 Smokeless Tobacco: Never Alcohol Use Standard [...] Telephone Encounter - Markell Linton MD - 05/10/2023 8:15 PM EST Agree with [facility] that prednisone unlikely culprit. Needs seen in office if headaches continue. Markell Linton MD * Telephone Encounter - Kaur Bryant [facility] - 05/10/2023 10:44 AM EST Spoke to patient regarding recent prednisone titration rx - she was prescribed this after an antibiotic reaction (rash). Severe headaches began 2 days after stopping prednisone and have lasted for 4 days; they can be so painful she has cried. -Advised unlikely to be caused by prednisone due to titration + headaches started 2 days after therapy complete. She also reports change in smell - she constantly smells fuel oil and believes this is causing the headaches. -EC does not smell anything in the house -Landlord came over and does not smell anything in the house Appetite and sense of taste is fine; patient has no other symptoms. She has tried tylenol but it did not provide any relief. Routing to PCP to review. Thank you, Kaur Bryant PharmD Clinical Pharmacist [facility] 05/10/23 10:53 AM [phone] * Telephone Encounter - María Ugarte PHARM Tech - 05/10/2023 10:41 AM EST Pt was on prednisone - she is finish with it but has delivered severe headaches. Pt ec wants to know if the prednisone caused this. Transferred to [facility] Thank you for your assistance María Ugarte Reworker II [facility] (Formerly [facility]) 05/10/2023,10:43 AM documented in this encounter Plan of Treatment Upcoming Encounters Date Type Department Care Team (Late st Contact Info) Description 06/08/2023 11:20 AM EST Office Visit Family [facility] [address] [place] [phone] Chana Stacy PA-C [address] [place] [address] 06/14/2023 2:30 PM EST Office Visit Cardiology, [facility] [address] [facility] [place] [address] Nabila Fields CRNP [address] [place] [address] Health Maintenance Due Date Last Done Comments COVID-19 Vaccine (#1) 03/12/1951 Alpha-1 Antitrypsin 1966 Mammogram 1988 Cologuard 1993 Fecal Occult Blood Test 1993 Sigmoidoscopy 1993 Zoster Vaccines (1 of 2) 1998 Pneumococcal Vaccine: 65+ Years (3 - PPSV23 or PCV20) 07/02/2018 11/25/2016, 07/02/2013 *ADVANCE DIRECTIVE NOT ON FILE 10/06/2018 Depression Screening 12/07/2020 12/08/2019 DXA Scan 06/06/2021 06/06/2014 CKD PHOS USE SMARTSET 10047 11/17/2021 11/17/2020 Influenza Vaccine (FLU shot) (#1) 2022 03/12/2013 Albumin/Creatinine Ratio 01/14/2023 01/14/2022 DTaP,Tdap,and Td Vaccines (2 - Td or Tdap) 07/03/2023 07/02/2013 GFR 09/06/2023 03/08/2023, 08/23, 04/26/2022, Additional history exists CKD HGB USE SMARTSET 81374 03/08/202403/08, 09/13/2022, 04/26/2022, Additional history exists TSH 03/08/2024 03/08/2023, 07/0 10/2020, 05/09/2019, Additional history exists O2 ASSESSMENT COMPLETED IN PAST YEAR FOR COPD 03/29/2024 03/29/2023 Lipid Panel 04/26/2027 04/26/2022, 07/0 10/2020, 11/25/2016, [...] Documents on File Type Date Recorded Patient Warehouse Operations Manager Expl anation Power of Synoptic Meteorologist 04/06/2023 POWER OF A TTORNEY Latest Code [...] and were consensually agreed upon. Care Teams Non Destructive Testing Specialist Relationship Specialty Start Date End Date August, Markell Heller MD [address] [place] [address] PCP - General Family Medicine 03/30/23 documented as of this encounter
--- OUTSIDE RECORDS SUMMARY | 2023-07-16 14:46 | External Medical Summary | Summary of Care ---
Author Name Unknown Organization [facility] Address [address] [place] [address] Phone [phone] Care Team Providers Care Supply Aide Name Role Phone AugustMarkell MD Primary Care Provider [phone] Encounter Details Date Type Department Care Team (Late st Contact Info) Description 04/05/2023 Telephone [facility] [address] [place] [address] AugustMarkell MD [address] [place] [address] Allergies Active Allergy Reactions Criticality Noted Date Comments Methylprednisolone Sodium Succ 12/06 Dog Dander Low 03/20/2019 Other reaction(s): Sneezing Food (See Comments) 02/23/2018 Duck eggs Swelling Pollen 08/25/2015 Nystatin 01/17/2019 Allergic reaction Pollen Extract 03/20/2019 Other reaction(s): HAYFEVER documented as of this encounter (statuses as of 04/06/2023) Medications Medication Sig Dispensed Refills Start Date End Date Status aspirin 81 MG chewable tablet Take 1 Tab by mouth daily. with food. 100 Tab 5 0 Active vitamin c (ASCORBIC ACID) 250 MG Tablet DAILY@12 30 Tab 5 0 Active Acetaminophen 325 MG Oral Tablet Take 500 mg by mouth every 6 hours as needed for Pain. 0 Active famotidine (HEARTBURN RELIEF) 10 MG TabletIndications:G astroesophageal reflux disease without esophagitis Take 1 Tab by mouth daily. 90 Tab 1 0 Active Ipratropium-Albuter ol 0.5-2.5 (3) MG/3ML [...] at bedtime 400 g 0 2 Active Ketoconazole 2 % External Cream APPLY TOPICALLY TO AFFECTED AREA 2 TIMES A DAY FOR 14 DAYS. APPLY TO AFFECTED AREA AFTER DRYING SKIN 30 g 1 2 Active Compressor NebulizerIndication s:COPD, group C, by GOLD 2017 classification ([facility]) Inhale via nebulizer . Use as directed. 1 Each 1 2 Active Pulse Oximeter Deluxe Use as directed . 1 Each 1 2 Active Nebulizer/Tubing/Mo uthpiece KitIndications:COPD , group C, by GOLD 2017 classification ([facility]) Use to nebulize medicaitons 1 [...] by mouth in the morning. 0 Active Gentamicin in Saline 1 MG/ML Intravenous Solution Administer 100 mg intravenously daily. 0 Active guaiFENesin ER 600 MG Oral [...] and 1 Capsule before bedtime. 0 Active Vancomycin HCl 750 MG/150ML Intravenous Solution Administer 150 mL intravenously daily. 0 Active Flovent HFA 110 MCG/ACT Inhalation Aerosol 0 3 Active Furosemide 20 MG Oral Tablet (Lasix)Indications: [...] :Congestive heart failure due to valvular disease TAKE 1 TABLET BY MOUTH EVERY DAY IN THE MORNING 90 Tablet 3 3 Active Pantoprazole Sodium 40 MG Oral Tablet Delayed Release (Protonix)Indicatio ns:Esophageal reflux Take 1 Tablet by mouth in the morning and 1 Tablet before bedtime. 180 Tablet 1 3 Active Topiramate 25 MG Oral Tablet (topAMAX)Indication s:Chronic daily headache 1 tab by mouth three times a day 270 Tablet 3 3 Active Simvastatin 10 MG Oral Tablet [...] empty stomach.. 90 Tablet 3 3 Active traMADol HCl 50 MG Oral Tablet (Ultram)Indications :Bilateral primary osteoarthritis of knee Take 1 Tablet by mouth every 12 hours as needed for Pain, Moderate. 60 Tablet 0 3 Active Albuterol Sulfate HFA 108 (90 Base) MCG/ACT Inhalation Aerosol SolutionIndications :COPD, group C, by GOLD 2017 classification ([facility]),Asthma with irreversible airway obstruction, unspecified asthma severity, uncomplicated ([facility]) INHALE 2 PUFFS BY MOUTH EVERY 6 HOURS NEEDED FOR WHEEZING 54 g 1 3 Active Umeclidinium-Vilant valentin 62.5-25 MCG/ACT Inhalation Aerosol Powder Breath Activated (ANORO ellipta)Indications :COPD, group C, by GOLD 2017 classification ([facility]) Inhale 1 Puff by mouth in the morning. 60 Blister Dosing Unit 3 3 04/05/20 23 Discontinu ed(Medicat ion/Dose Changed) documented as of this encounter (statuses as of 04/06/2023) Active Problems Problem Noted Date Diagnosed Date [...] as of this encounter (statuses as of 04/06/2023) Resolved Problems Problem Noted Date Diagnosed Date [...] as of this encounter (statuses as of 04/06/2023) Immunizations Name Administration Dates Next Due Pneumococcal [...] encounter Miscellaneous Notes * Telephone Encounter - Jennifer Agee OSA - 04/06/2023 10:17 AM EST 04/06/23 Niece, Pari Sullivan called PAR and asked to be removed from her Aunt's chart as a contact due to personal family issues * Telephone Encounter - Jennifer Agee OSA - 04/05/2023 1:43 PM EST 04/05/23 Rafita was made aware of adding a pt contact for pt and Pari Sullivan cannot be identified as the POA and Legal Guarding without legal documents. PAR called contact and contact, Pari Sullivan stated she and her brother removed themselves from anything legal to do with the pt.? documented in this encounter Plan of Treatment Upcoming Encounters Date Type Department Care Team (Late st Contact Info) Description 05/09/2023 1:00 PM EST Office Visit Cardiology, [facility] [address] [address] Nabila Fields CRNP [address] [place] [address] 06/08/2023 11:20 AM EST [facility] [address] [facility] [phone] Chana Stacy PA-C [address] [id number] Health Maintenance Due Date Last Done Comments COVID-19 Vaccine (#1) 03/12/1951 Alpha-1 Antitrypsin 1966 Mammogram 1988 Cologuard 1993 Fecal Occult Blood Test 1993 Sigmoidoscopy 1993 Zoster Vaccines (1 of 2) 1998 Pneumococcal Vaccine: 65+ Years (3 - PPSV23 or PCV20) 07/02/2018 11/25/2016, 07/02/2013 *ADVANCE DIRECTIVE NOT ON FILE 10/06/2018 Depression Screening 12/07/2020 12/08/2019 DXA Scan 06/06/2021 06/06/2014 CKD PHOS USE SMARTSET 28777 11/17/2021 11/17/2020 Influenza Vaccine (FLU shot) (#1) 2022 03/12/2013 Albumin/Creatinine Ratio 01/14/2023 01/14/2022 DTaP,Tdap,and Td Vaccines (2 - Td or Tdap) 07/03/2023 07/02/2013 GFR 09/06/2023 03/08/2023, 08/23, 04/26/2022, Additional history exists CKD HGB USE SMARTSET 29935 03/08/202403/08, 09/13/2022, 04/26/2022, Additional history exists TSH [...] filedocumented as of this encounter Advance Directives Latest Code Status on File Code Status [...] and were consensually agreed upon. Care Teams Supply Aide Relationship Specialty Start Date End Date August, Markell Heller MD [address] [place] [address] PCP - General Family Medicine 03/30/23 documented as of this encounter
--- OUTSIDE RECORDS SUMMARY | 2023-07-16 14:46 | External Medical Summary | Summary of Care ---
Author Name Unknown Organization [facility] Address [address] [place] [address] Phone [phone] Care Team Providers Care Cad Librarian Name Role Phone Eleuterio Lopez MD Primary Care Provider [phone] Reason for Visit * Reason Onset Date Comments Medication Refill 04/10/2023 Encounter Details Date Type Department Care Team (Late st Contact Info) Description 04/10/[address] [facility] [address] [place] [address] Eleuterio Lopez MD [address] [place] [address] Gastroesophageal reflux disease without esophagitis Allergies Active Allergy Reactions Criticality Noted Date Comments Methylprednisolone Sodium Succ 12/06 Dog Dander Low 03/20/2019 Other reaction(s): Sneezing Food (See Comments) 02/23/2018 Duck eggs Swelling Pollen 08/25/2015 Nystatin 01/17/2019 Allergic reaction Pollen Extract 03/20/2019 Other reaction(s): HAYFEVER documented as of this encounter (statuses as of 04/11/2023) Medications Medication Sig Dispensed Refills Start Date [...] s:COPD, group C, by GOLD 2017 classification ([facility]) Inhale via nebulizer . Use as directed. 1 Each 1 2 Active Pulse Oximeter Deluxe Use as directed . 1 Each 1 2 Active Nebulizer/Tubing/Mo uthpiece KitIndications:COPD , group C, by GOLD 2017 classification ([facility]) Use to nebulize medicaitons 1 [...] :COPD, group C, by GOLD 2017 classification ([facility]),Asthma with irreversible airway obstruction, unspecified asthma severity, uncomplicated ([facility]) INHALE 2 PUFFS BY MOUTH EVERY 6 HOURS NEEDED FOR WHEEZING 54 g 1 3 Active Tiotropium Likely-Olodaterol 2.5-2.5 MCG/ACT Inhalation Aerosol Solution (Stiolto Respimat)Indication s:COPD, group C, by GOLD 2017 classification ([facility]) Inhale 2 Puffs by mouth in the morning. 4 g 3 3 Active Famotidine 10 MG Oral Tablet (Heartburn Relief)Indications: Gastroesophageal reflux disease without esophagitis Take 1 Tablet by mouth in the morning. 90 Tablet 1 3 Active famotidine (HEARTBURN RELIEF) 10 MG TabletIndications:G astroesophageal reflux disease without esophagitis Take 1 Tab by mouth daily. 90 Tab 1 0 04/10/20 23 Discontinu ed(Refill) documented as of this encounter (statuses as of 04/11/2023) Active Problems Problem Noted Date Diagnosed Date [...] as of this encounter (statuses as of 04/11/2023) Resolved Problems Problem Noted Date Diagnosed Date [...] as of this encounter (statuses as of 04/11/2023) Immunizations Name Administration Dates Next Due Pneumococcal [...] Telephone Encounter - Eleuterio Lopez MD - 04/11/2023 1:31 PM ESTSigned Prescriptions: Disp Refills Famotidine 10 MG Oral Tablet (Heartburn Re*90 Tab*1 Sig: Take 1 Tablet by mouth in the morning. Authorizing Provider: ELEUTERIO LOPEZ * Telephone Encounter - Allison Lezama [facility] - 04/11/2023 1:23 PM ESTPending Prescriptions: Disp Refills Famotidine 10 MG Oral Tablet (Heartburn Re*90 Tab*1 Sig: Take 1 Tablet by mouth in the morning. * Telephone Encounter - Allison Lezama RPh - 04/11/2023 1:23 PM EST Pharmacists cannot authorize refills for meds listed as "historical" in the chart. Please approve if appropriate. Pending Prescriptions: Disp Refills Famotidine 10 MG Oral Tablet (Heartburn Re*90 Tab*1 Sig: Take 1 Tablet by mouth in the morning. 03/29/2023 (in office), 04/21/2022 (telemedicine) 06/08/2023 If no future appointments scheduled, and last appointment is greater than a year ago, please schedule patient for a follow-up appointment Last date the medication was ordered: historical Pharmacy: [id number] [address] [facility] Is this request for a controlled substance?No Urine Drug Screen:No results found for this [...] 09:47 AM ALT 12 06/05/2019 03:45 PM * Telephone Encounter - Jaida Monsivais [facility] - 04/10/2023 2:51 PM EST Did you pend patient's preferred pharmacy and medication before forwarding?yes Pharmacy: [id number] [address] [facility] Pending Prescriptions: Disp Refills Famotidine 10 MG Oral Tablet (Heartburn R*90 Tab*1 Sig: Take 1 Tablet by mouth in the morning. Last Visit: 03/29/2023 (in office), 04/21/2022 (telemedicine) Next Visit: 06/08/2023 If no future appointments scheduled, and last appointment is greater than a year ago, please schedule patient for a follow-up appointment Last date the medication was ordered: Is this request for a controlled substance?No Urine Drug Screen:No results found for this [...] Description 06/08/2023 11:20 AM EST Office Visit [address] [place] [address] Chana Stacy PA-C [address] [address] 06/14/2023 2:30 PM EST Office Visit Cardiology, [facility] [address] [place] [address] Nabila Fields CRNP [address] [place] [address] Health Maintenance Due Date Last Done Comments COVID-19 Vaccine (#1) 03/12/1951 Alpha-1 Antitrypsin 1966 Mammogram 1988 Cologuard 1993 Fecal Occult Blood Test 1993 Sigmoidoscopy 1993 Zoster Vaccines (1 of 2) 1998 Pneumococcal Vaccine: 65+ Years (3 - PPSV23 or PCV20) 07/02/2018 11/25/2016, 07/02/2013 *ADVANCE DIRECTIVE NOT ON FILE 10/06/2018 Depression Screening 12/07/2020 12/08/2019 DXA Scan 06/06/2021 06/06/2014 CKD PHOS USE SMARTSET 08702 11/17/2021 11/17/2020 Influenza Vaccine (FLU shot) (#1) 2022 03/12/2013 Albumin/Creatinine Ratio 01/14/2023 01/14/2022 DTaP,Tdap,and Td Vaccines (2 - Td or Tdap) 07/03/2023 07/02/2013 GFR 09/06/2023 03/08/2023, 08/23, 04/26/2022, Additional history exists CKD HGB USE SMARTSET 93953 03/08/202403/08, 09/13/2022, 04/26/2022, Additional history exists TSH [...] as of this encounter Visit Diagnoses Diagnosis Gastroesophageal reflux disease without esophagitis Esophageal reflux documented in this encounter Advance Directives Documents on File Type Date Recorded Patient Car Dumper Operator Helper Expl anation Power of Head School Custodian 04/06/2023 POWER OF A TTORNEY Latest Code [...] and were consensually agreed upon. Care Teams Cad Librarian Relationship Specialty Start Date End Date August, Eleuterio Heller MD [address] [place] [address] PCP - General Family Medicine 03/30/23 documented as of this encounter
--- OUTSIDE RECORDS SUMMARY | 2023-07-16 14:46 | External Medical Summary | Summary of Care ---
Author Name Unknown Organization [facility] Address [address] [place] [address] Phone [phone] Care Team Providers Care Rerolling Machine Operator Name Role Phone Markell Linton MD Primary Care Provider Reason for Visit * Reason Onset Date Comments Advice 04/19/2023 Pneumonia? Encounter Details Date Type Department Care Team ([facility] st Contact Info) Description 04/19/2023 Telephone [facility] [address] [place] [address] Markell Linton MD [address] [place] [address] Advice (Pneumonia?) Allergies Active Allergy Reactions Criticality Noted Date Comments Methylprednisolone Sodium Succ 12/06 Dog Dander Low 03/20/2019 Other reaction(s): Sneezing Food (See Comments) 02/23/2018 Duck eggs Swelling Pollen 08/25/2015 Nystatin 01/17/2019 Allergic reaction Pollen Extract 03/20/2019 Other reaction(s): HAYFEVER documented as of this encounter (statuses as of 04/19/2023) Medications Medication Sig Dispensed Refills Start Date [...] 2017 classification ([facility]) Inhale via nebulizer . Use as directed. 1 Each 1 2 Active Pulse Oximeter Deluxe Use as directed . 1 Each 1 2 Active Nebulizer/Tubing/Mo uthpiece KitIndications:COPD , group C, by GOLD 2017 classification ([facility]) Use to nebulize medicaitons 1 Kit 1 [...] failure type ([facility]),PAULETTE (acute kidney injury) (HCC) TAKE 2 TABLETS [...] 2017 classification ([facility]),Asthma with irreversible airway obstruction, unspecified asthma severity, uncomplicated ([facility]) INHALE 2 PUFFS BY MOUTH EVERY 6 HOURS NEEDED FOR WHEEZING 54 g 1 3 Active Tiotropium Fedora-Olodaterol 2.5-2.5 MCG/ACT Inhalation Aerosol Solution (Stiolto Respimat)Indication s:COPD, group C, by GOLD 2017 classification ([facility]) Inhale 2 Puffs by mouth in the morning. 4 g 3 3 Active Famotidine 10 MG Oral Tablet (Heartburn Relief)Indications: Gastroesophageal reflux disease without esophagitis Take 1 Tablet by mouth in the morning. 90 Tablet 1 3 Active Azithromycin 250 MG Oral Tablet (Zithromax)Indicati ons:COPD, group C, by GOLD 2017 classification ([facility]) Take 2 tabs by mouth on the first day, then 1 tab daily on days two through five 6 Tablet 0 3 04/24/19 24 Active Gentamicin in Saline 1 MG/ML Intravenous Solution Administer 100 mg intravenously daily. 0 04/19/20 23 Discontinu ed(Medicat ion List Clean Up) Vancomycin HCl 750 MG/150ML Intravenous Solution Administer 150 mL intravenously daily. 0 04/19/20 23 Discontinu ed(Medicat ion List Clean Up) documented as of this encounter (statuses as of 04/19/2023) Active Problems Problem Noted Date Diagnosed Date [...] as of this encounter (statuses as of 04/19/2023) Resolved Problems Problem Noted Date Diagnosed Date [...] as of this encounter (statuses as of 04/19/2023) Immunizations Name Administration Dates Next Due Pneumococcal [...] Telephone Encounter - Markell Linton MD - 04/19/2023 6:39 PM EST Given patient has COPD I did send 5 days of azithromycin to [facility] in [place]. There unfortunately is no mobile chest x-ray that I know of through the [employer] system. Once the patient feels well enough to make it to the office, she can set up a return visit where we can discuss potential xrays/injections of the knees to help with known arthritis. Markell Linton MD * Telephone Encounter - Floresita Gutierrez OSA - 04/19/2023 8:07 AM EST Pt's sister calling, states pt has following: yellowish phlegm, watery eyes, runny nose. Started 1 week ago. Pt had a nurse stop yesterday and states she is concerned about the phlegm. Sister is unable to bring her in she has bad knees and is hard for her to get up. Asking if mobile xray can come to home to check both her lungs and knees. She states she was sent home from a [facility] recently and sister cares for her. Please advise. documented in this encounter Plan of Treatment Upcoming Encounters Date Type Department Care Team (Late st Contact Info) Description 06/08/2023 11:20 AM EST Office Visit Family Practice, [place] [address] [facility] [place] [address] Chana Stacy PA-C [address] [place] [address] 06/14/2023 2:30 PM EST Office Visit Cardiology, [facility] [address] [place] [address] Nabila Fields CRNP [address] [place] [address] Health Maintenance Due Date Last Done Comments COVID-19 Vaccine (#1) 03/12/1951 Alpha-1 Antitrypsin 1966 Mammogram 1988 Cologuard 1993 Fecal Occult Blood Test 1993 Sigmoidoscopy 1993 Zoster Vaccines (1 of 2) 1998 Pneumococcal Vaccine: 65+ Years (3 - PPSV23 or PCV20) 07/02/2018 11/25/2016, 07/02/2013 *ADVANCE DIRECTIVE NOT ON FILE 10/06/2018 Depression Screening 12/07/2020 12/08/2019 DXA Scan 06/06/2021 06/06/2014 CKD PHOS USE SMARTSET 42625 11/17/2021 11/17/2020 Influenza Vaccine (FLU shot) (#1) 2022 03/12/2013 Albumin/Creatinine Ratio 01/14/2023 01/14/2022 DTaP,Tdap,and Td Vaccines (2 - Td or Tdap) 07/03/2023 07/02/2013 GFR 09/06/2023 03/08/2023, 05/2 06/2022, 04/26/2022, Additional history exists CKD HGB USE SMARTSET 01121 03/08/202403/08, 09/13/2022, 04/26/2022, Additional history exists TSH [...] COPD, group C, by GOLD 2017 classification (HCC)- Primary documented in this encounter Advance Directives Documents on File Type Date Recorded Patient Loss Prevention Guard Expl anation Power of Coffee Sampler 04/06/2023 POWER OF A TTORNEY Latest Code [...] and were consensually agreed upon. Care Teams Rerolling Machine Operator Relationship Specialty Start Date End Date August, Markell Heller MD [address] [place] [address] PCP - General Family Medicine 03/30/23 documented as of this encounter
--- OUTSIDE RECORDS SUMMARY | 2023-07-16 14:46 | External Medical Summary | Summary of Care ---
Author Name Unknown Organization [facility] Address [address] [place] [address] Phone [phone] Care Team Providers Care Skin Care Instructor Name Role Phone Markell Linton MD Primary Care Provider [phone] Reason for Visit * Reason Onset Date Comments Advice 04/19/2023 Pneumonia? Encounter Details Date Type Department Care Team (Late st Contact Info) Description 04/19/2023 Refill [facility] [address] [place] [address] Markell Linton MD [address] [place] [address] COPD, group C, by GOLD 2017 classification ([facility])* Allergies Active Allergy Reactions Criticality Noted Date Comments Methylprednisolone Sodium Succ 12/06 Dog Dander Low 03/20/2019 Other reaction(s): Sneezing Food (See Comments) 02/23/2018 Duck eggs Swelling Pollen 08/25/2015 Nystatin 01/17/2019 Allergic reaction Pollen Extract 03/20/2019 Other reaction(s): HAYFEVER documented as of this encounter (statuses as of 04/20/2023) Medications Medication Sig Dispensed Refills Start Date [...] group C, by GOLD 2017 classification ([facility]) Inhale via nebulizer . Use as directed. 1 Each 1 2 Active Pulse Oximeter Deluxe Use as directed . 1 Each 1 2 Active Nebulizer/Tubing/Mo uthpiece KitIndications:COPD , group C, by GOLD 2017 classification ([facility]) Use to nebulize medicaitons 1 Kit 1 [...] group C, by GOLD 2017 classification ([facility]),Asthma with irreversible airway obstruction, unspecified asthma severity, uncomplicated ([facility]) INHALE 2 PUFFS BY MOUTH EVERY 6 HOURS NEEDED FOR WHEEZING 54 g 1 3 Active Tiotropium Ewing-Olodaterol 2.5-2.5 MCG/ACT Inhalation Aerosol Solution (Stiolto Respimat)Indication s:COPD, group C, by GOLD 2017 classification ([facility]) Inhale 2 Puffs by mouth in the morning. 4 g 3 3 Active Famotidine 10 MG Oral Tablet (Heartburn Relief)Indications: Gastroesophageal reflux disease without esophagitis Take 1 Tablet by mouth in the morning. 90 Tablet 1 3 Active Azithromycin 250 MG Oral Tablet (Zithromax)Indicati ons:COPD, group C, by GOLD 2017 classification ([facility]) Take 2 tabs by mouth on the [...] as of this encounter (statuses as of 04/20/2023) Active Problems Problem Noted Date Diagnosed Date [...] as of this encounter (statuses as of 04/20/2023) Resolved Problems Problem Noted Date Diagnosed Date [...] as of this encounter (statuses as of 04/20/2023) Immunizations Name Administration Dates Next Due Pneumococcal [...] Telephone Encounter - Sarah Carmen LPN - 04/20/2023 9:31 AM EST Called and spoke with pharmacy. They told her about an interaction with her amiodarone - could prolong QT, so they warned pt to watch for any chest pain * Telephone Encounter - Chitra Solorzano OSA - 04/20/2023 9:05 AM EST Patient's sister called and said that the medication that was called in on 04/19 had a warning fromthe pharmacy saying that some of her medications can interact with what was called in, and was wondering if those medications should be stopped for the duration of the new medications or what to do. Patient's sister is not going to give patient the new medication without knowing. Please advise. * Telephone Encounter - Markell Linton MD - 04/19/2023 6:39 PM EST Given patient has COPD I did send 5 days of azithromycin to [facility] in [place]. There unfortunately is no mobile chest x-ray that I know of through the [employer] system. Once the patient feels well enough [...] Description 06/08/2023 11:20 AM EST Office Visit [facility] [address] [facility] [address] Chana Stacy PA-C [address] [place] [address] 06/14/2023 2:30 PM EST Office Visit Cardiology, [facility] [address] [place] [address] Nabila Fields CRNP [address] [place] [address] Health Maintenance Due Date Last Done Comments COVID-19 Vaccine (#1) 03/12/1951 Alpha-1 Antitrypsin 1966 Mammogram 1988 Cologuard 1993 Fecal Occult Blood Test 1993 Sigmoidoscopy 1993 Zoster Vaccines (1 of 2) 1998 Pneumococcal Vaccine: 65+ Years (3 - PPSV23 or PCV20) 07/02/2018 11/25/2016, 07/02/2013 *ADVANCE DIRECTIVE NOT ON FILE 10/06/2018 Depression Screening 12/07/2020 12/08/2019 DXA Scan 06/06/2021 06/06/2014 CKD PHOS USE SMARTSET 59588 11/17/2021 11/17/2020 Influenza Vaccine (FLU shot) (#1) 2022 03/12/2013 Albumin/Creatinine Ratio 01/14/2023 01/14/2022 DTaP,Tdap,and Td Vaccines (2 - Td or Tdap) 07/03/2023 07/02/2013 GFR 09/06/2023 03/08/2023, 05/2 06/2022, 04/26/2022, Additional history exists CKD HGB USE SMARTSET 59979 03/08/202403/08, 09/13/2022, 04/26/2022, Additional history exists TSH [...] Documents on File Type Date Recorded Patient Chemical Analyst Expl anation Power of Customs Director 04/06/2023 POWER OF A TTORNEY Latest Code [...] and were consensually agreed upon. Care Teams Skin Care Instructor Relationship Specialty Start Date End Date August, Markell Heller MD [address] [facility] [place] [address] PCP - General Family Medicine 03/30/23 documented as of this encounter
--- OUTSIDE RECORDS SUMMARY | 2023-07-16 14:46 | External Medical Summary | Summary of Care ---
Author Name Unknown Organization [facility] Address [address] [place] [address] Phone [phone] Care Team Providers Care Fibre Optics Jointer Name Role Phone Markell Linton MD Primary Care Provider [phone] Reason for Visit * Reason Onset Date Comments Advice 05/10/2023 Encounter Details Date Type Department Care Team (Late st Contact Info) Description 05/10/2023 Telephone Ltac, Located Within [facility] [address] [place] [address] Markell Linton MD [address] [place] [address] Advice Allergies Active Allergy Reactions [...] :COPD, group C, by GOLD 2017 classification ([facility]) Inhale via nebulizer . Use as directed. 1 Each 1 04/21/2022 Active Pulse Oximeter Deluxe Use as directed . 1 Each 1 04/21/2022 Active Nebulizer/Tubing/Yecenia thpiece KitIndications:COPD, group C, by GOLD 2017 classification ([facility]) Use to nebulize medicaitons [...] COPD, group C, by GOLD 2017 classification ([facility]),Asthma with irreversible airway obstruction, unspecified asthma severity, uncomplicated ([facility]) INHALE 2 PUFFS BY MOUTH EVERY 6 HOURS NEEDED FOR WHEEZING 54 g 1 04/02/2023 Active Tiotropium Shidler-Olodaterol 2.5-2.5 MCG/ACT Inhalation Aerosol Solution (Stiolto Respimat)Indications :COPD, group C, by GOLD 2017 classification ([facility]) Inhale 2 Puffs by [...] encounter Miscellaneous Notes * Telephone Encounter - Tania Aguayo LPN - 05/11/2023 8:34 AM EST Spoke to patient and states that she is still having headaches and states she will not be able to come in tomorrow due to the weather but would like to schedule for early next week. Transferred call to [facility] at the front edger. * Telephone Encounter - Markell Linton MD - 05/10/2023 8:15 PM EST Agree with [facility] that prednisone unlikely culprit. Needs seen in office if headaches continue. Markell Linton MD * Telephone Encounter - Kaur Bryant [facility], located within [facility] - 05/10/2023 10:44 AM EST Spoke to [...] to PCP to review. Thank you, Kaur Bryant, PharmD Clinical Pharmacist [facility] ([facility]) 05/10/23 10:53 AM [phone] Electronically signed by Kaur Bryant, LTAC, located within [facility] at 05/10/2023 10:56 AM EST * Telephone Encounter - María Ugarte game tester - 05/10/2023 10:41 AM EST Pt was on prednisone - she is finish with it but has delivered severe headaches. Pt ec wants to know if the prednisone caused this. Transferred to [facility] Thank you for your assistance María Ugarte Bike Designer II [facility] ([facility]) (Formerly Telepharmacy) 05/10/2023,10:43 AM documented in this encounter Plan of Treatment Upcoming Encounters Date Type Department Care Team (Late st Contact Info) Description 06/08/2023 11:20 AM EST Office Visit [facility] [address] [place] [address] Chana Stacy PA-C [address] [place] [address] 06/14/2023 2:30 PM EST Office Visit Cardiology, [facility] [address] [facility] [place] [address] Nabila Fields CRNP [address] [facility] [place] [address] Health Maintenance Due Date Last Done Comments COVID-19 Vaccine (#1) 03/12/1951 Alpha-1 Antitrypsin 1966 Mammogram 1988 Cologuard 1993 Fecal Occult Blood Test 1993 Sigmoidoscopy 1993 Zoster Vaccines (1 of 2) 1998 Pneumococcal Vaccine: 65+ Years (3 - PPSV23 or PCV20) 07/02/2018 11/25/2016, 07/02/2013 *ADVANCE DIRECTIVE NOT ON FILE 10/06/2018 Depression Screening 12/07/2020 12/08/2019 DXA Scan 06/06/2021 06/06/2014 CKD PHOS USE SMARTSET 45450 11/17/2021 11/17/2020 Influenza Vaccine (FLU shot) (#1) 2022 03/12/2013 Albumin/Creatinine Ratio 01/14/2023 01/14/2022 DTaP,Tdap,and Td Vaccines (2 - Td or Tdap) 07/03/2023 07/02/2013 GFR 09/06/2023 03/08/2023, 08/23, 04/26/2022, Additional history exists CKD HGB USE SMARTSET 46583 03/08/202403/08, 09/13/2022, 04/26/2022, Additional history exists TSH [...] Documents on File Type Date Recorded Patient Air Conditioning Installer Supervisor Expl anation Power of Machine Slat Basket Maker 04/06/2023 POWER OF A TTORNEY Latest Code [...] and were consensually agreed upon. Care Teams Fibre Optics Jointer Relationship Specialty Start Date End Date August, Markell Heller MD [address] [place] [address] PCP - General Family Medicine 03/30/23 documented as of this encounter
--- OUTSIDE RECORDS SUMMARY | 2023-07-16 14:46 | External Medical Summary | Summary of Care ---
Author Name Unknown Organization [facility] Address [address] [place] [address] Phone [phone] Care Team Providers Care Anesthesiology Technologist Name Role Phone Markell Linton MD Primary Care Provider [phone] Reason for Visit * Reason Onset Date Comments Advice 04/19/2023 Pneumonia? Encounter Details Date Type Department Care Team ([facility] st Contact Info) Description 04/19/2023 Telephone Merged With [facility] [address] [place] [address] Markell Linton MD [address] [place] [address] Advice (Pneumonia?) Allergies Active Allergy [...] type ([facility]),PAULETTE (acute kidney injury) (HCC) TAKE 2 TABLETS [...] WHEEZING 54 g 1 3 Active Tiotropium Solomons-Olodaterol 2.5-2.5 MCG/ACT Inhalation Aerosol Solution (Stiolto Respimat)Indication [...] ons:COPD, group C, by GOLD 2017 classification ([facility]) Take 2 tabs by mouth on the [...] encounter Miscellaneous Notes * Telephone Encounter - Chitra Solorzano OSA [...] did send 5 days of azithromycin to [facility] in [place]. There unfortunately is no mobile chest x-ray that I know of through the [employer] system. Once the patient feels well enough [...] states she was sent home from a fdc recently and sister cares for her. Please advise. documented in this encounter Plan of Treatment Upcoming Encounters Date Type Department Care Team (Late st Contact Info) Description 06/08/2023 11:20 AM EST Office Visit Merged With [facility] [address] [place] [address] Chana Stacy PA-C [address] [place] [address] 06/14/2023 2:30 PM EST Office Visit Cardiology, [facility] [address] [facility] [place] [address] Nabila Fields CRNP [address] [place] [address] Health Maintenance Due Date Last Done Comments COVID-19 Vaccine (#1) 03/12/1951 Alpha-1 Antitrypsin 1966 Mammogram 1988 Cologuard 1993 Fecal Occult Blood Test 1993 Sigmoidoscopy 1993 Zoster Vaccines (1 of 2) 1998 Pneumococcal Vaccine: 65+ Years (3 - PPSV23 or PCV20) 07/02/2018 11/25/2016, 07/02/2013 *ADVANCE DIRECTIVE NOT ON FILE 10/06/2018 Depression Screening 12/07/2020 12/08/2019 DXA Scan 06/06/2021 06/06/2014 CKD PHOS USE SMARTSET 42279 11/17/2021 11/17/2020 Influenza Vaccine (FLU shot) (#1) 2022 03/12/2013 Albumin/Creatinine Ratio 01/14/2023 01/14/2022 DTaP,Tdap,and Td Vaccines (2 - Td or Tdap) 07/03/2023 07/02/2013 GFR 09/06/2023 03/08/2023, 08/23, 04/26/2022, Additional history exists CKD HGB USE SMARTSET 40083 03/08/202403/08, 09/13/2022, 04/26/2022, Additional history exists TSH [...] Documents on File Type Date Recorded Patient Communication Consultant Expl anation Power of Tube Room Cashier 04/06/2023 POWER OF A TTORNEY Latest Code [...] and were consensually agreed upon. Care Teams Anesthesiology Technologist Relationship Specialty Start Date End Date August, Markell Heller MD [address] [facility] [place] [address] PCP - General Family Medicine 03/30/23 documented as of this encounter
--- OUTSIDE RECORDS SUMMARY | 2023-07-16 14:46 | External Medical Summary | Summary of Care ---
Author Name Unknown Organization [facility] Address [address] [place] [address] Phone [phone] Care Team Providers Care Film Color Tester Name Role Phone Markell Linton MD Primary Care Provider Reason for Visit * Reason Onset Date Comments Health Maintenance 04/11/2023 Encounter Details Date Type Department Care Team (Late st Contact Info) Description 04/11/[address] [facility] [address] [place] [address] Markell Linton MD [address] [place] [address] Health Maintenance Allergies Active Allergy Reactions Criticality Noted Date [...] 0 Active famotidine (HEARTBURN RELIEF) 10 MG TabletIndications:Ga stroesophageal reflux disease without esophagitis Take 1 Tab by mouth daily. 90 Tab 1 11/14/2019 Active Ipratropium-Albutero l 0.5-2.5 (3) MG/3ML Inhalation [...] group C, by GOLD 2017 classification ([facility]) Inhale via nebulizer . Use as directed. 1 Each 1 04/21/2022 Active Pulse Oximeter Deluxe Use as directed . 1 Each 1 04/21/2022 Active Nebulizer/Tubing/Yecenia thpiece KitIndications:COPD, group C, by GOLD 2017 classification ([facility]) Use to nebulize medicaitons 1 Kit 1 [...] group C, by GOLD 2017 classification ([facility]),Asthma with irreversible airway obstruction, unspecified asthma severity, uncomplicated ([facility]) INHALE 2 PUFFS BY MOUTH EVERY 6 HOURS NEEDED FOR WHEEZING 54 g 1 04/02/2023 Active Tiotropium Gilbert-Olodaterol 2.5-2.5 MCG/ACT Inhalation Aerosol Solution (Stiolto Respimat)Indications :COPD, group C, by GOLD 2017 classification ([facility]) Inhale 2 Puffs by mouth in the morning. 4 g 3 04/05/2023 Active documented as of this encounter (statuses [...] encounter Miscellaneous Notes * Telephone Encounter - Chantal Ash LPN - 04/11/2023 12:52 PM EST Care Gaps Comprehensive Care Outreach Last Office/Telemedicine Visit: 03/29/2023 (in office), 04/21/2022 (telemedicine) Next Office Visit: 06/08/2023 Hemoglobin AIC Results: No results found for: "HEMOGLOBIN A1C" Reviewed Health Maintenance below: Health Maintenance Topic Date Due COVID-19 Vaccine (1) Never done Alpha-1 Antitrypsin Never done Mammogram Never done Zoster Vaccines (1 of 2) Never done Pneumococcal Vaccine: 65+ Years (3 - PPSV23 or PCV20) 07/02/2018 *ADVANCE DIRECTIVE NOT ON FILE Never done Depression Screening 12/07/2020 DXA Scan 06/06/2021 CKD PHOS USE SMARTSET 14522 11/17/2021 Influenza Vaccine (FLU shot) (1) 12/23/2022 Albumin/Creatinine Ratio 01/14/2023 Mamm Dexa Lab/urine already ordered Care Gap Outreach Action Taken: Unable to reach documented in this encounter Plan of Treatment Upcoming Encounters Date Type Department Care Team (Late st Contact Info) Description 06/08/2023 11:20 AM EST Office Visit [facility] [place] [address] [facility] [place] [address] Chana Stacy PA-C [address] [facility] [place] [address] 06/14/2023 2:30 PM EST Office Visit Cardiology, [facility] [address] [place] [address] DonnieNabila cox CRNP [address] [place] [address] Health Maintenance Due Date Last Done Comments COVID-19 Vaccine (#1) 03/12/1951 Alpha-1 Antitrypsin 1966 Mammogram 1988 Cologuard 1993 Fecal Occult Blood Test 1993 Sigmoidoscopy 1993 Zoster Vaccines (1 of 2) 1998 Pneumococcal Vaccine: 65+ Years (3 - PPSV23 or PCV20) 07/02/2018 11/25/2016, 07/02/2013 *ADVANCE DIRECTIVE NOT ON FILE 10/06/2018 Depression Screening 12/07/2020 12/08/2019 DXA Scan 06/06/2021 06/06/2014 CKD PHOS USE SMARTSET 08194 11/17/2021 11/17/2020 Influenza Vaccine (FLU shot) (#1) 2022 03/12/2013 Albumin/Creatinine Ratio 01/14/2023 01/14/2022 DTaP,Tdap,and Td Vaccines (2 - Td or Tdap) 07/03/2023 07/02/2013 GFR 09/06/2023 03/08/2023, 05/2 06/2022, 04/26/2022, Additional history exists CKD HGB USE SMARTSET 62139 03/08/202403/08, 09/13/2022, 04/26/2022, Additional history exists TSH [...] Documents on File Type Date Recorded Patient Reflexologist Expl anation Power of Inward Toll Operator 04/06/2023 POWER OF A TTORNEY Latest [...] and were consensually agreed upon. Care Teams Film Color Tester Relationship Specialty Start Date End Date August, Markell Heller MD [address] [place] [address] PCP - General Family Medicine 03/30/23 documented as of this encounter
--- OUTSIDE RECORDS SUMMARY | 2023-07-16 14:46 | External Medical Summary | Summary of Care ---
Author Name Unknown Organization [facility] Address [address] [place] [address] Phone [phone] Care Team Providers Care Wedger Name Role Phone Eleuterio Lopez MD Primary Care Provider [phone] Reason for Visit * Reason Onset Date Comments Medication Refill 05/15/2023 Encounter Details Date Type Department Care Team (Late st Contact Info) Description 05/15/2023 Refill [facility] [address] [place] [address] Eleuterio Lopez MD [address] [place] [address] Bilateral primary osteoarthritis of knee Allergies Active Allergy Reactions Criticality Noted Date Comments Methylprednisolone Sodium Succ 12/06 Dog Dander Low 03/20/2019 Other reaction(s): Sneezing Food (See Comments) 02/23/2018 Duck eggs Swelling Pollen 08/25/2015 Nystatin 01/17/2019 Allergic reaction Pollen Extract 03/20/2019 Other reaction(s): HAYFEVER documented as of this encounter (statuses as of 05/16/2023) Medications Medication Sig Dispensed Refills Start Date [...] SKIN 30 g 1 03/03/2022 Active Compressor NebulizerIndication s:COPD, group C, by GOLD 2017 classification ([facility]) Inhale via nebulizer . Use as directed. 1 Each 1 04/21/2022 Active Pulse Oximeter Deluxe Use as directed . 1 Each 1 04/21/2022 Active Nebulizer/Tubing/Mo uthpiece KitIndications:COPD , group C, by GOLD 2017 classification ([facility]) Use to nebulize medicaitons 1 [...] 02/08/2023 Active Furosemide 20 MG Oral Tablet (Lasix)Indications: Acute congestive heart failure, unspecified heart failure type ([facility]),PAULETTE (acute kidney injury) ([facility]) TAKE 2 TABLETS BY MOUTH [...] failure due to valvular disease ([facility]) TAKE 1 TABLET BY MOUTH EVERY DAY IN THE MORNING 90 Tablet 3 03/21/2023 Active Pantoprazole Sodium 40 MG Oral Tablet Delayed Release (Protonix)Indicatio ns:Esophageal reflux Take 1 Tablet by mouth in the morning and 1 Tablet before bedtime. 180 Tablet 1 03/20/2023 Active Topiramate 25 MG Oral Tablet (topAMAX)Indication [...] C, by GOLD 2017 classification ([facility]),Asthma with irreversible airway obstruction, unspecified asthma severity, uncomplicated ([facility]) INHALE 2 PUFFS BY MOUTH EVERY 6 HOURS NEEDED FOR WHEEZING 54 g 1 04/02/2023 Active Tiotropium Allons-Olodaterol 2.5-2.5 MCG/ACT Inhalation Aerosol Solution (Stiolto Respimat)Indication s:COPD, group C, by GOLD 2017 classification ([facility]) Inhale 2 Puffs by mouth [...] Pain, Moderate. 60 Tablet 0 05/16/2023 Active traMADol HCl 50 MG Oral Tablet (Ultram)Indications :Bilateral primary osteoarthritis of knee Take 1 Tablet by mouth every 12 hours as needed for Pain, Moderate. 60 Tablet 0 03/22/2023 4 Discontinu ed(Refill) documented as of this encounter (statuses as of 05/16/2023) Active Problems Problem Noted Date Diagnosed Date [...] as of this encounter (statuses as of 05/16/2023) Resolved Problems Problem Noted Date Diagnosed Date [...] as of this encounter (statuses as of 05/16/2023) Immunizations Name Administration Dates Next Due Pneumococcal [...] Telephone Encounter - Eleuterio Lopez MD - 05/16/2023 3:02 PM ESTSigned Prescriptions: Disp Refills traMADol HCl 50 MG Oral Tablet (Ultram) 60 Tab*0 Sig: Take 1 Tablet by mouth every 12 hours as needed for Pain, Moderate.Authorizing Provider: ELEUTERIO LOPEZ------- * Telephone Encounter - Marcos Cintron [facility] - 05/16/2023 1:19 PM EST Pending Prescriptions: Disp Refills traMADol HCl 50 MG Oral Tablet (Ultram) 60 Tab*0 Sig: Take 1 Tablet by mouth every 12 hours as needed for Pain, Moderate. * Telephone Encounter - Marcos Cintron [facility] - 05/16/2023 1:18 PM EST I have reviewed the patients controlled substance dispensing history in the Prescription Drug Monitoring Program in compliance with the [facility] regulations before prescribing a controlled substance. PDMP checked on 05/16/2023. Pending Prescriptions: Disp Refills traMADol HCl 50 MG Oral Tablet (Ultram) 60 Tab*0 Sig: Take 1 Tablet by mouth every 12 hours as needed for Pain, Moderate. Last Visit: 03/29/2023 (in office), 04/21/2022 (telemedicine) Next Visit: 06/08/2023 Date medication was last filled: 03/22/23 Date medication is due for refill: 04/19/23 Pharmacy: [id number] [address] [place] [address] Is this request for a controlled substance? Yes and Urine Drug Screen Not completed Toxicology results: No results found for this or any previous visit. Please approve if appropriate. Thanks, Marcos Cintron, PharmD Clinical Pharmacist Centralized Clinical Pharmacy Services ([facility]PS) (formerly Telepharmacy) [phone] 05/16/2023, 1:18 PM * Telephone Encounter - María Ugarte PHARM Tech - 05/15/2023 12:55 PM EST Did you pend patient's preferred pharmacy and medication before forwarding?yes Pharmacy: [id number] [address] [place] [address] Pending Prescriptions: Disp Refills traMADol HCl 50 MG Oral Tablet (Ultram) 60 Tab*0 Sig: Take 1 Tablet by mouth every 12 hours as needed for Pain, Moderate. Last Visit: 03/29/2023 (in office), 04/21/2022 (telemedicine) Next Visit: 06/08/2023 If no future appointments scheduled, and last appointment is greater than a year ago, please schedule patient for a follow-up appointment Last date the medication was ordered: Is this request for a controlled substance?Yes, What was the last refill date 03/22 w/ quantity 60 and dosage 50 mg and Urine Drug Screen Not completed Urine Drug Screen:No results found for this [...] Description 06/08/2023 11:20 AM EST [facility] [address] [facility] [facility] [address] Chana Stacy PA-C [address] [place] [address] 06/19/2023 1:30 PM EST Office Visit Cardiology, [facility] [address] [place] [address] Nabila Fields CRNP [address] [place] [address] Health Maintenance Due Date Last Done Comments COVID-19 Vaccine (#1) 03/12/1951 Alpha-1 Antitrypsin 1966 Mammogram 1988 Cologuard 1993 Fecal Occult Blood Test 1993 Sigmoidoscopy 1993 Zoster Vaccines (1 of 2) 1998 Pneumococcal Vaccine: 65+ Years (3 - PPSV23 or PCV20) 07/02/2018 11/25/2016, 07/02/2013 *ADVANCE DIRECTIVE NOT ON FILE 10/06/2018 Depression Screening 12/07/2020 12/08/2019 DXA Scan 06/06/2021 06/06/2014 CKD PHOS USE SMARTSET 54604 11/17/2021 11/17/2020 Influenza Vaccine (FLU shot) (#1) 2022 03/12/2013 Albumin/Creatinine Ratio 01/14/2023 01/14/2022 DTaP,Tdap,and Td Vaccines (2 - Td or Tdap) 07/03/2023 07/02/2013 GFR 09/06/2023 03/08/2023, 05/2 06/2022, 04/26/2022, Additional history exists CKD HGB USE SMARTSET 06436 03/08/202403/08, 09/13/2022, 04/26/2022, Additional history exists TSH [...] Documents on File Type Date Recorded Patient Talent Acquisition Specialist Expl anation Power of Square Shear Operator 04/06/2023 POWER OF A TTORNEY Latest [...] and were consensually agreed upon. Care Teams Wedger Relationship Specialty Start Date End Date August, Eleuterio Heller MD [address] [place] [address] PCP - General Family Medicine 03/30/23 documented as of this encounter
--- OUTSIDE RECORDS SUMMARY | 2023-07-16 14:46 | External Medical Summary | Summary of Care ---
Author Name Unknown Organization [facility] Address [address] [place] [address] Phone [phone] Care Team Providers Care Scleroscope Tester Name Role Phone Markell Linton MD Primary Care Provider [phone] Encounter Details Date Type Department Care Team (Late st Contact Info) Description 03/22/2023 Telephone [facility] [address] [place] [address] Markell Linton MD [address] [place] [address] Allergies Active Allergy Reactions Criticality Noted Date Comments Methylprednisolone Sodium Succ 12/06 Dog Dander Low 03/20/2019 Other reaction(s): Sneezing Food (See Comments) 02/23/2018 Duck eggs Swelling Pollen 08/25/2015 Nystatin 01/17/2019 Allergic reaction Pollen Extract 03/20/2019 Other reaction(s): HAYFEVER documented as of this encounter (statuses as of 04/07/2023) Medications Medication Sig Dispensed Refills Start Date [...] C, by GOLD 2017 classification ([facility]) Inhale via nebulizer . Use as directed. 1 Each 1 04/21/2022 Active Pulse Oximeter Deluxe Use as directed . 1 Each 1 04/21/2022 Active Nebulizer/Tubing/Yecenia thpiece KitIndications:COPD, group C, by GOLD 2017 classification ([facility]) Use to nebulize medicaitons 1 Kit [...] Pain, Moderate. 60 Tablet 0 03/22/2023 Active documented as of this encounter (statuses as of 04/07/2023) Active Problems Problem Noted Date Diagnosed Date [...] as of this encounter (statuses as of 04/07/2023) Resolved Problems Problem Noted Date Diagnosed Date [...] as of this encounter (statuses as of 04/07/2023) Immunizations Name Administration Dates Next Due Pneumococcal [...] Telephone Encounter - Jennifer Agee OSA - 03/22/2023 4:13 PM EST 03/22/23 Provider requested pt having appt in Nephrology in July. Pt needs to be scheduled between 9:00 am and Noon due to using public transportation. Please call pt with date and time for appt. documented in this encounter Plan of Treatment Upcoming Encounters Date Type Department Care Team (Late st Contact Info) Description 06/08/2023 11:20 AM EST Office Visit Family [facility] [address] [place] [address] Chana Stacy PA-C [address] [place] [address] 06/14/2023 2:30 PM EST Office Visit Cardiology, [facility] [address] [facility] [place] [address] Nabila Fields CRNP [address] [place] [address] Health Maintenance Due Date Last Done Comments COVID-19 Vaccine (#1) 03/12/1951 Alpha-1 Antitrypsin 1966 Mammogram 1988 Cologuard 1993 Fecal Occult Blood Test 1993 Sigmoidoscopy 1993 Zoster Vaccines (1 of 2) 1998 Pneumococcal Vaccine: 65+ Years (3 - PPSV23 or PCV20) 07/02/2018 11/25/2016, 07/02/2013 *ADVANCE DIRECTIVE NOT ON FILE 10/06/2018 Depression Screening 12/07/2020 12/08/2019 DXA Scan 06/06/2021 06/06/2014 CKD PHOS USE SMARTSET 98540 11/17/2021 11/17/2020 Influenza Vaccine (FLU shot) (#1) 2022 03/12/2013 Albumin/Creatinine Ratio 01/14/2023 01/14/2022 DTaP,Tdap,and Td Vaccines (2 - Td or Tdap) 07/03/2023 07/02/2013 GFR 09/06/2023 03/08/2023, 08/23, 04/26/2022, Additional history exists CKD HGB USE SMARTSET 04329 03/08/202403/08, 09/13/2022, 04/26/2022, Additional history exists TSH [...] and were consensually agreed upon. Care Teams Scleroscope Tester Relationship Specialty Start Date End Date August, Markell Heller MD [address] [facility] [place] [address] PCP - General Family Medicine 03/30/23 documented as of this encounter
--- OUTSIDE RECORDS SUMMARY | 2023-07-16 14:46 | External Medical Summary | Summary of Care ---
Author Name Unknown Organization [facility] Address [address] [place] [address] Phone [phone] Care Team Providers Care Quick Sketch Artist Name Role Phone Markell Linton MD Primary Care Provider [phone] Reason for Visit * Reason Onset Date Comments Advice 04/05/2023 Encounter Details Date Type Department Care Team (Late st Contact Info) Description 04/05/2023 Telephone [facility] [address] [place] [address] Markell Linton MD [address] [place] [address] Advice Allergies Active Allergy Reactions [...] WHEEZING 54 g 1 3 Active Tiotropium [place]-Olodaterol 2.5-2.5 MCG/ACT Inhalation Aerosol Solution (Stiolto Respimat)Indication s:COPD, group C, by GOLD 2017 classification ([facility]) Inhale 2 Puffs by mouth in the morning. 4 g 3 3 Active Umeclidinium-Vilant valentin 62.5-25 MCG/ACT Inhalation Aerosol Powder Breath Activated (ANORO ellipta)Indications :COPD, group C, by GOLD 2017 classification ([facility]) Inhale 1 Puff by mouth in the [...] encounter Miscellaneous Notes * Telephone Encounter - Johnny Salazar OSA - 04/06/2023 9:43 AM EST Patient has been notified of the message. Patient has no further questions. * Telephone Encounter - Tania Aguayo LPN - 04/06/2023 8:09 AM EST Left generic message on answering machine asking patient to return our call. * Telephone Encounter - Markell Linton MD - 04/05/2023 7:14 PM EST Stiolto Respimat sent to [facility] in [place] as alternative. Markell Linton MD * Telephone Encounter - Tania Aguayo LPN - 04/05/2023 2:24 PM EST Alternative medication requested from the pharmacy. Anoro Ellipta is not covered under patients insurance plan, suggested alternatives are Stiolto Respimat Bevespi aerosphere (120) Striverdi respmiat Spiriva respimat 2.5 MCG * Telephone Encounter - Lydia May LPN - 04/05/2023 1:27 PM EST Spoke with pt's sister Theresa regarding clarification of sister's med. Levothyroxine in one tab in the AM on empty stomach And The topiramate 25 mg 1 tab by mouth three times a day per doctor's orders. Pt's sister also had a question what inhaler replaced the flovent HFA ? Sister said there wasn't any thing at the pharmacy . Please advice. Thanks * Telephone Encounter - Dina Olvera OSA - 04/05/2023 1:11 PM EST Pts sister is calling in regards to asking for a call back about clarification about the pts medication. She advised that she is transitioning the patient from being in a fci to being back home.She advised that there are discrepancies of how and when she takes certain medications.Please contact her back in regards to this matter yogesh Patient Contact: or documented in this encounter Plan of Treatment Upcoming Encounters Date Type Department Care Team (Late st Contact Info) Description 05/09/2023 1:00 PM EST Office Visit Cardiology, [facility] [address] [address] Nabila Fields CRNP [address] [place] [address] 06/08/2023 11:20 AM EST Office Visit [facility] [place] [address] [address] hCana Stacy PA-C [address] [place] [facility] [place] [address] Health Maintenance Due Date Last Done Comments COVID-19 Vaccine (#1) 03/12/1951 Alpha-1 Antitrypsin 1966 Mammogram 1988 Cologuard 1993 Fecal Occult Blood Test 1993 Sigmoidoscopy 1993 Zoster Vaccines (1 of 2) 1998 Pneumococcal Vaccine: 65+ Years (3 - PPSV23 or PCV20) 07/02/2018 11/25/2016, 07/02/2013 *ADVANCE DIRECTIVE NOT ON FILE 10/06/2018 Depression Screening 12/07/2020 12/08/2019 DXA Scan 06/06/2021 06/06/2014 CKD PHOS USE SMARTSET 87190 11/17/2021 11/17/2020 Influenza Vaccine (FLU shot) (#1) 2022 03/12/2013 Albumin/Creatinine Ratio 01/14/2023 01/14/2022 DTaP,Tdap,and Td Vaccines (2 - Td or Tdap) 07/03/2023 07/02/2013 GFR 09/06/2023 03/08/2023, 0506/2022, 04/26/2022, Additional history exists CKD HGB USE SMARTSET 40580 03/08/202403/08, 09/13/2022, 04/26/2022, Additional history exists TSH [...] Primary documented in this encounter Advance Directives Latest Code Status [...] and were consensually agreed upon. Care Teams Quick Sketch Artist Relationship Specialty Start Date End Date August, Markell Heller MD [address] [place] [address] PCP - General Family Medicine 03/30/23 documented as of this encounter
--- OUTSIDE RECORDS SUMMARY | 2023-07-16 14:46 | External Medical Summary | Summary of Care ---
Author Name Unknown Organization [facility] Address [address] [place] [address] Phone [phone] Care Team Providers Care Algorithm Developer Name Role Phone Markell Linton MD Primary Care Provider [phone] Reason for Visit * Reason Onset Date Comments Advice 04/05/2023 Encounter Details Date Type Department Care Team (Late st Contact Info) Description 04/05/2023 Telephone [facility] [address] [place] [address] Markell Linton MD [address] [place] [address] Advice Allergies Active Allergy Reactions [...] s:COPD, group C, by GOLD 2017 classification ([facility]) Inhale via nebulizer . Use as directed. 1 Each 1 2 Active Pulse Oximeter Deluxe Use as directed . 1 Each 1 2 Active Nebulizer/Tubing/Mo uthpiece KitIndications:COPD , group C, by GOLD 2017 classification ([facility]) Use to nebulize medicaitons 1 Kit 1 [...] :COPD, group C, by GOLD 2017 classification ([facility]),Asthma with irreversible airway obstruction, unspecified asthma severity, uncomplicated ([facility]) INHALE 2 PUFFS BY MOUTH EVERY 6 HOURS NEEDED FOR WHEEZING 54 g 1 3 Active Tiotropium [place]-Olodaterol 2.5-2.5 MCG/ACT Inhalation Aerosol Solution (Stiolto Respimat)Indication s:COPD, group C, by GOLD 2017 classification ([facility]) Inhale 2 Puffs by mouth in the morning. 4 g 3 3 Active Umeclidinium-Vilant valentin 62.5-25 MCG/ACT Inhalation Aerosol Powder Breath Activated (ANORO ellipta)Indications :COPD, group C, by GOLD 2017 classification ([facility]) Inhale 1 Puff by mouth in the [...] 7:14 PM EST Stiolto Respimat sent to [facility] in [place] as alternative. Markell Linton MD * Telephone [...] transitioning the patient from being in a alf to being back home.She advised that there are discrepancies of how and when she takes certain medications.Please contact her back in regards to this matter yogesh Patient Contact: or documented in this encounter Plan of Treatment Upcoming Encounters Date Type Department Care Team (Late st Contact Info) Description 05/09/2023 1:00 PM EST Office Visit Cardiology, [facility] [address] [place] [address] Nabila Fields CRNP [address] [address] 06/08/2023 11:20 AM EST [facility] Visit [facility] [address] [facility] [id number] Chana Stacy PAKyC [address] [facility] [address] Health Maintenance Due Date Last Done Comments COVID-19 Vaccine (#1) 03/12/1951 Alpha-1 Antitrypsin 1966 Mammogram 1988 Cologuard 1993 Fecal Occult Blood Test 1993 Sigmoidoscopy 1993 Zoster Vaccines (1 of 2) 1998 Pneumococcal Vaccine: 65+ Years (3 - PPSV23 or PCV20) 07/02/2018 11/25/2016, 07/02/2013 *ADVANCE DIRECTIVE NOT ON FILE 10/06/2018 Depression Screening 12/07/2020 12/08/2019 DXA Scan 06/06/2021 06/06/2014 CKD PHOS USE SMARTSET 16603 11/17/2021 11/17/2020 Influenza Vaccine (FLU shot) (#1) 2022 03/12/2013 Albumin/Creatinine Ratio 01/14/2023 01/14/2022 DTaP,Tdap,and Td Vaccines (2 - Td or Tdap) 07/03/2023 07/02/2013 GFR 09/06/2023 03/08/2023, 0506/2022, 04/26/2022, Additional history exists CKD HGB USE SMARTSET 40841 03/08/202403/08, 09/13/2022, 04/26/2022, Additional history exists TSH [...] and were consensually agreed upon. Care Teams Algorithm Developer Relationship Specialty Start Date End Date August, Markell Heller MD [address] [facility] [place] [address] PCP - General Family Medicine 03/30/23 documented as of this encounter
--- OUTSIDE RECORDS SUMMARY | 2023-07-16 14:46 | External Medical Summary | Summary of Care ---
Author Name Unknown Organization [facility] Address [address] [place] [address] Phone [phone] Care Team Providers Care Paint Brush Maker Name Role Phone Markell Linton MD Primary Care Provider [phone] Reason for Visit * Reason Onset Date Comments Advice 02/02/2023 Encounter Details Date Type Department Care Team (Late st Contact Info) Description 02/02/2023 Telephone Cardiology, [facility] [address] [place] [address] Corby Hanna DO [address] [place] [address] Advice Allergies Active Allergy Reactions Criticality Noted Date Comments Methylprednisolone Sodium Succ 12/06 Dog Dander Low 03/20/2019 Other reaction(s): Sneezing Food (See Comments) 02/23/2018 Duck eggs Swelling Pollen 08/25/2015 Nystatin 01/17/2019 Allergic reaction Pollen Extract 03/20/2019 Other reaction(s): HAYFEVER documented as of this encounter (statuses as of 05/04/2023) Medications Medication Sig Dispensed Refills Start Date End Date Status aspirin 81 MG chewable tablet Take 1 Tab by mouth daily. with food. 100 Tab 5 06/25/19 20 Active vitamin c (ASCORBIC ACID) 250 MG Tablet DAILY@12 30 Tab 5 06/25/19 20 Active Acetaminophen 325 MG Oral Tablet Take 500 mg by mouth every 6 hours as needed for Pain. 0 Active Ipratropium-[place] rol 0.5-2.5 (3) MG/3ML Inhalation Solution (Duoneb) INHALE 1 VIAL EVERY 4 TO 6 HOURS NEEDED FOR WHEEZING 360 mL 2 07/18/19 22 Active Ammonium Lactate 12 % External Lotion (Amlactin Daily)Indications: Venous stasis dermatitis of both lower extremities Apply topically to affected area as needed for Dry Skin. Apply to legs daily before putting socks on or at bedtime 400 g 0 01/15/20 22 Active Ketoconazole 2 % External Cream APPLY TOPICALLY TO AFFECTED AREA 2 TIMES A DAY FOR 14 DAYS. APPLY TO AFFECTED AREA AFTER DRYING SKIN 30 g 1 03/03/20 22 Active Compressor NebulizerIndicatio ns:COPD, group C, by GOLD 2017 classification ([facility]) Inhale via nebulizer . Use as directed. 1 Each 1 04/21/20 Active Pulse Oximeter Deluxe Use as directed . 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 0 Active famotidine (HEARTBURN RELIEF) 10 MG TabletIndications: Gastroesophageal reflux disease without esophagitis Take 1 Tab by mouth daily. 90 Tab 1 07/23/ 023 Discontinued(Re fill) Amiodarone HCl 200 MG Oral Tablet (Cordarone)Indicat ions:Paroxysmal atrial fibrillation (HCC) TAKE 1 TABLET BY MOUTH EVERY DAY 90 Tablet 3 12/30/19 22 023 Discontinued(Re fill) Magnesium Oxide 400 MG Oral TabletIndications: Hypomagnesemia Take by mouth 1 Tablet in the morning AND 1 Tablet before bedtime. 180 Tablet 1 01/15/20 22 023 Discontinued(Re fill) Topiramate 25 MG Oral Tablet (topAMAX)Indicatio ns:Chronic daily headache 1 tab by mouth three times a day 270 Tablet 1 01/25/20 22 023 Discontinued(Re fill) Flovent HFA 220 MCG/ACT Inhalation Aerosol TAKE 2 PUFFS BY MOUTH TWICE A DAY Strength: 220 MCG/ACT 36 g 2 03/08/20 22 023 Discontinued(Me dication/Dose Changed) Clopidogrel Bisulfate 75 MG Oral Tablet (pLAVix)Indication s:Congestive heart failure due to valvular disease TAKE 1 TABLET BY MOUTH EVERY DAY IN THE MORNING 90 Tablet 3 04/29/19 23 023 Discontinued(Re fill) Albuterol Sulfate HFA 108 (90 Base) MCG/ACT Inhalation Aerosol SolutionIndication s:COPD, group C, by GOLD 2017 classification ([facility]),Asthma with irreversible airway obstruction, unspecified asthma severity, uncomplicated ([facility]) INHALE 2 PUFFS BY MOUTH EVERY 6 HOURS NEEDED FOR WHEEZING 54 g 1 05/15/19 23 023 Discontinued(Re fill) Pantoprazole Sodium 40 MG Oral Tablet Delayed Release (Protonix)Indicati ons:Esophageal reflux Take 1 Tablet by mouth in the morning and 1 Tablet before bedtime. 180 Tablet 1 05/25/19 23 023 Discontinued(Re fill) traMADol HCl 50 MG Oral Tablet (Ultram)Indication s:Bilateral primary osteoarthritis of knee Take 1 Tablet by mouth every 6 hours as needed for Pain, Moderate. 30 Tablet 0 06/06/19 23 023 Discontinued(Re fill) Furosemide 20 MG Oral Tablet (Lasix)Indications :Acute congestive heart failure (HCC),PAULETTE (acute kidney injury) ([facility]) TAKE 2 TABLETS BY MOUTH EVERY MORNING 180 Tablet 1 07/10/19 23 023 Discontinued(Re fill) Simvastatin 10 MG Oral Tablet (Zocor) TAKE 1 TABLET BY MOUTH EVERYDAY AT BEDTIME 90 Tablet 1 07/10/19 23 023 Discontinued(Re fill) Ferrous Sulfate 325 (65 Fe) MG Oral Tablet (Feosol)Indication s:Macrocytic anemia TAKE 1 TABLET BY MOUTH EVERY DAY AT 12 90 Tablet 0 08/12/19 23 023 Discontinued(Re fill) Levothyroxine Sodium 25 MCG Oral Tablet (Levoxyl)Indicatio ns:Acquired hypothyroidism TAKE 1 TAB BY MOUTH DAILY FIRST THING IN THE AM AT LEAST 30 MIN PRIOR TO BREAKFAST OR OTHER MEDS 90 Tablet 0 08/25/19 23 023 Discontinued Floranex Oral Tablet Take 2 Each by mouth in the morning and 2 Each before bedtime. 0 023 Discontinued(Re fill) Gentamicin in Saline 1 MG/ML Intravenous Solution Administer 100 mg intravenously daily. 0 023 Discontinued(Me dication List Clean Up) Vancomycin HCl 750 MG/150ML Intravenous Solution Administer 150 mL intravenously daily. 0 023 Discontinued(Me dication List Clean Up) documented as of this encounter (statuses as of 05/04/2023) Active Problems Problem Noted Date Diagnosed Date [...] as of this encounter (statuses as of 05/04/2023) Resolved Problems Problem Noted Date Diagnosed Date [...] as of this encounter (statuses as of 05/04/2023) Immunizations Name Administration Dates Next Due Pneumococcal [...] encounter Miscellaneous Notes * Telephone Encounter - rOalia Caballero CMA - 02/09/2023 12:40 PM EDT Report received and scanned into patient's chart via [facility]. * Telephone Encounter - Landon Pendleton PA-C - 02/03/2023 2:28 PM EDT [facility] coverage for Dr. Hanna No BP readings available in chart. Please make available for review. ThanksLandon PA-C Department of Cardiology * Telephone Encounter - Yashira Fernandes OSA - 02/02/2023 4:17 PM EDT Ginger said that BP readings were sent over for the pt and is wondering if there should be any medication changes. Please call back to discuss. documented in this encounter Plan of Treatment Upcoming Encounters Date Type Department Care Team (Late st Contact Info) Description 06/08/2023 11:20 AM EST Office Visit [facility] [place] [address] [facility] [address] Chana Stacy PA-C [address] [facility] [address] 06/14/2023 2:30 PM EST Office Visit Cardiology, [facility] [address] [place] [address] Nabila Fields CRNP [address] [place] [address] Health Maintenance Due Date Last Done Comments COVID-19 Vaccine (#1) 03/12/1951 Alpha-1 Antitrypsin 1966 Mammogram 1988 Cologuard 1993 Fecal Occult Blood Test 1993 Sigmoidoscopy 1993 Zoster Vaccines (1 of 2) 1998 Pneumococcal Vaccine: 65+ Years (3 - PPSV23 or PCV20) 07/02/2018 11/25/2016, 07/02/2013 *ADVANCE DIRECTIVE NOT ON FILE 10/06/2018 Depression Screening 12/07/2020 12/08/2019 DXA Scan 06/06/2021 06/06/2014 CKD PHOS USE SMARTSET 45877 11/17/2021 11/17/2020 Influenza Vaccine (FLU shot) (#1) 2022 03/12/2013 Albumin/Creatinine Ratio 01/14/2023 01/14/2022 DTaP,Tdap,and Td Vaccines (2 - Td or Tdap) 07/03/2023 07/02/2013 GFR 09/06/2023 03/08/2023, 08/23, 04/26/2022, Additional history exists CKD HGB USE SMARTSET 61214 03/08/202403/08, 09/13/2022, 04/26/2022, Additional history exists TSH [...] Documents on File Type Date Recorded Patient Correction Lieutenant Expl anation Power of Rn Referral 04/06/2023 POWER OF A TTORNEY Latest Code [...] and were consensually agreed upon. Care Teams Paint Brush Maker Relationship Specialty Start Date End Date August, Markell Heller MD [address] [place] [facility] [address] PCP - General Family Medicine 03/30/23 documented as of this encounter
--- OUTSIDE RECORDS SUMMARY | 2023-07-16 14:47 | External Medical Summary | Summary of Care ---
Author Name Unknown Organization [facility] Address [address] [place] [address] Phone [phone] Care Team Providers Care Cork Cutter Name Role Phone Duglas Mayo MD Primary Care Provider + [phone] Reason for Referral * Evaluate & Treat - Unlimited Visits (Within 10 days (routine)) - Pending Review Specialty Diagnoses / Procedures Referred By Contac t Referred To Contact Nephrology Diagnoses Chronic kidney disease, stage 3b (HCC) Markell Linton MD [address] [place] [address] Referral ID Status Reason Start Date Expiration Date Visits Requested Visits Authorized [id number] Pending Review Specialty Services Required [phone] Question Answer Referral Priority Within 10 days (routine) Where should this appointment be scheduled? [facility] What condition is this patient being seen for? Chronic kidney disease Reason for Visit * Reason Comments Acute Walk test for oxygen Encounter Details Date Type Department Care Team (Latest Contact Info) Description 03/22/2023 3:20 PM EST Office Visit [facility] [address] [place] [facility] [place] [phone] Markell Linton MD [address] [facility] [place] [id number] Risk and functional assessment*; COPD, group C, by GOLD 2017 classification ([facility]); S/P TAVR (transcatheter aortic valve replacement); Congestive heart failure due to valvular disease ; Chronic kidney disease, stage 3b ([facility]); Paroxysmal atrial fibrillation ([facility]); Decubitus ulcer of ischial area, unspecified laterality, unspecified ulcer stage; Bilateral primary osteoarthritis of knee Allergies Active Allergy Reactions Criticality Noted Date Comments Methylprednisolone Sodium Succ 12/06 Dog Dander Low 03/20/2019 Other reaction(s): Sneezing Food (See Comments) 02/23/2018 Duck eggs Swelling Pollen 08/25/2015 Nystatin 01/17/2019 Allergic reaction Pollen Extract 03/20/2019 Other reaction(s): HAYFEVER documented as of this encounter (statuses as of 03/22/2023) Medications Medication Sig Dispensed Refills Start Date [...] FOR WHEEZING 360 mL 2 2 Active Additional Information Patient not taking.Reported on 12/21/2022 Ammonium Lactate 12 % External Lotion (Amlactin Daily)Indications:V enous stasis dermatitis of both lower extremities Apply topically to affected area as needed for Dry Skin. Apply to legs daily before putting socks on or at bedtime 400 g 0 2 Active Additional Information Patient not taking.Reported on 09/16/2022 Ketoconazole 2 % External Cream APPLY TOPICALLY TO AFFECTED AREA 2 TIMES A DAY FOR 14 DAYS. APPLY TO AFFECTED AREA AFTER DRYING SKIN 30 g 1 2 Active Additional Information Patient not taking.Reported on 12/21/2022 Compressor NebulizerIndication s:COPD, group C, by GOLD 2017 classification ([facility]) Inhale via nebulizer . Use as directed. 1 Each 1 2 Active Pulse Oximeter Deluxe Use as directed . 1 Each 1 2 Active Albuterol Sulfate HFA 108 (90 Base) MCG/ACT Inhalation Aerosol SolutionIndications :COPD, group C, by GOLD 2017 classification ([facility]),Asthma with irreversible airway obstruction, unspecified asthma severity, uncomplicated ([facility]) INHALE 2 PUFFS BY MOUTH EVERY 6 HOURS NEEDED FOR WHEEZING 54 g 1 3 Active Nebulizer/Tubing/Mo uthpiece KitIndications:COPD , group C, [...] pressure sores. 25 Each 1 3 Active Mupirocin 2 % External Ointment (Bactroban)Indicati ons:Decubitus ulcer of ischial area, unspecified laterality, unspecified ulcer stage Apply topically to affected area 3 times a day for 14 days. Apply to affected area. 22 g 1 3 03/28/20 23 Active Clopidogrel Bisulfate 75 MG Oral Tablet [...] Pain, Moderate. 60 Tablet 0 3 Active traMADol HCl 50 MG Oral Tablet (Ultram)Indications :Bilateral primary osteoarthritis of knee Take 1 Tablet by mouth every 6 hours as needed for Pain, Moderate. 30 Tablet 0 3 03/22/20 23 Discontinu ed(Refill) documented as of this encounter (statuses as of 03/22/2023) Active Problems Problem Noted Date Diagnosed Date [...] as of this encounter (statuses as of 03/22/2023) Resolved Problems Problem Noted Date Diagnosed Date [...] as of this encounter (statuses as of 03/22/2023) Immunizations Name Administration Dates Next Due Pneumococcal [...] Sign Reading Time Taken Comments Blood Pressure 130/62 03/22/2023 3:13 PM EST Pulse 58 03/22/2023 3:13 PM EST Temperature 36.3 C (97.3 F) 03/22/2023 3:13 PM ES T Respiratory Rate 16 03/22/2023 3:13 PM EST Oxygen Saturation 97% 03/22/2023 3:13 PM EST Inhaled Oxygen Concentration - - Weight 108.6 kg (239 lb 6.4 oz) 03/22/2023 3:13 PM EST Height - - Body Mass Index 37.5 06/06/2022 10:23 AM EST documented in this encounter Functional [...] No 06/05/2019 documented as of this encounter Patient Instructions * Patient Instructions* Tania Aguayo LPN - 03/22/2023 3:20 PM EST Patient Instructions - Fall Prevention (This education is for all patients over 65 regardless of symptoms) Remember to take your current medications as prescribed. In order to prevent falls, you are encouraged to: Exercise Utilize assistive/adaptive devices Avoid multifocal lenses when walking Avoid hazards in home Maintain a regular toileting schedule Any questions please contact our office. Preventing Falls in the Home (This education is for all patients over 65 regardless of symptoms) As you get older, falls are more likely. Thats because your reaction time slows. Your muscles and joints may also get stiffer, making them less flexible. Illness, medications, and vision changes can also affect your balance. A fall could leave you unable to live on your own. To make your home safer, follow these tips: Floors Put nonskid pads under area rugs Remove throw rugs Replace worn floor coverings Tack carpets firmly to each step on carpeted stairs. Put nonskid strips on the edges of uncarpeted stairs Keep floors and stairs free of clutter and cords Arrange furniture so there are clear pathways Clean up any spills right away Bathrooms Install grab bars in the tub or shower Apply nonskid strips or put a nonskid rubber mat in the tub or shower Sit on a bath chair to bathe Use bathmats with nonskid backing Lighting Keep a flashlight in each room Put a nightlight along the pathway between the bedroom and the bathroom [employer] Patient Education Copyright 2008 - 2010 Leann except where otherwise noted Preventing Falls: Exercises to Improve Balance, Flexibility, Strength, and Staying Power (This education is for all patients over 65 regardless of symptoms) Certain types of exercises may help make you less likely to fall. Try the ones below. Or do other exercises that your healthcare provider suggests. Depending on your health, you may need to start slowly. Dont let that stop you. Even small amounts of exercise can help you. Be sure to talk to yourhealthcare provider before starting any exercise program. Improve Balance Many types of exercise can help improve balance. Derian chi and yoga are good examples. Heres another one to try. You can do it anytime and almost anywhere. Stand next to a counter or solid support. Push yourself up onto your tiptoes. Hold for 5 seconds. If you start to lose your balance, hold on to the counter. Rest and repeat 5 times. Work up to holding for 20 to 30 seconds, if you can. Increase Flexibility Being more flexible makes it easier for you to move around safely. Try exercises like the seated hamstring stretch. Sit in a chair and put one foot on a stool. Straighten your leg and reach with both hands down either side of your leg. Reach as far down your leg as you can. Hold for about 20 seconds. Go back to the starting position. Then repeat 5 times. Switch legs. Build Strength Resistance exercises help build strength. You can do them without equipment. Or you can use weights, elastic bands, or special machines. One such exercise is called the biceps curl. You can hold a 1 pound weight or even a can of soup. Do this exercise at least 3 times a week. Strive for everyday. Sit up straight in a chair. Keep your elbow close to your body and your wrist straight. Bend your arm, moving your hand up to your shoulder. Then slowly lower your arm. Repeat 5 times. Switch to the other arm. Build Your Staying Power Aerobic exercises make your heart and lungs stronger so you can keep moving longer. Walking and swimming are two of the best types of exercises you can do. Using a stationary bike is great, too. Find an aerobic exercise that you enjoy. Start slowly and build up. Even 5 minutes is helpful. Aimfor a goal of 30 minutes, at least 3 times a week. You dont have to do 30 minutes in one session. Break it up and walk a little throughout the day. More Helpful Tips Start easy. Slowly work up to doing more. Talk with your healthcare provider about the best exercises for you. Call senior centers or health clubs about exercise programs. If needed, have a family member watch you walk every so often to check your stability. Exercise with a friend. Choose an activity you both enjoy. Try exercises that you can do anytime, anywhere. Here are two examples. Have someone with you when you first try these: Practice walking by placing one foot right in front of the other. Stand up and sit down 10 times. Repeat this throughout the day. [employer] Patient Education Copyright 2008 [employer] except where otherwise noted. Preventing Falls: Moving Safely Using a Cane or Walker (This education is for all patients over 65 regardless of symptoms) Keep the cane away from your feet so you dont trip. A walking aid, such as a cane or walker, can help you stay more independent and avoid falls. Remember to keep your walking aid within easy reach when youre in a chair or in bed. And learn how to use it safely so you dont injure yourself. Using a Cane If you have a stronger side, hold the cane on that side. Get your balance. Move the cane and your weaker leg forward. Support your weight on both the cane and your weaker side. Step with your stronger leg. Start again from step 1. If youre using a folding walker, be sure you know how to lock it open. Check that its locked open before each use. Using a Walker Roll the walker (or lift it, if youre using one without wheels) forward about 12 inches. Step forward with your weaker leg first. Use the walker to help keep your balance. Bring your other foot forward to the center of the walker. Start again from step 1. Helpful Tips Check with your healthcare provider about the right walking aid to use. Ask about a walker with a seat attached. Check the tips of your cane or walker to make sure they have nonskid covers. Move slowly from room to room. Dont cox. Sit down to get dressed. Use a lázaro pack or backpack to keep your hands free. Get help for jobs that mean climbing, even on a stepstool. [employer] Patient Education Copyright 2008 - 2010 [employer] except where otherwise noted. Urinary Incontinence Plan of Care Documentation: (This education is for all patients over 65 regardless of symptoms) Current medications reconciled. Patient encouraged to: Practice kegal exercises Provide education materials Use the restroom every 2 hours throughout the day Limit caffeine, alcohol, spicy foods and acidic foods Keep a bladder diary Limit fluid intake 3-4 hours before bed Lose weight Prevent constipation Take fluid pills at a time when you can get to the bathroom quickly Control sugar better if diabetic Limit fluid intake to 60 oz. per day Wear support stockings (TEDs)if you have edema Tania Aguayo LPN 03/22/2023 Kegel Exercises Kegel exercises dont require special clothing or equipment. Theyre easy to learn and simple to do. And if you do them right, no one can tell youre doing them, so they can be done almost anywhere. Your doctor, nurse, or physical therapist can answer any questions you have and help you get started. A Weak Pelvic Floor The pelvic floor muscles may weaken due to aging, and vaginal childbirth, injury, surgery, chronic cough, or lack of exercise. If the pelvic floor is weak, your bladder and other pelvic organs may sag out of place. The urethra may also open too easily and allow urine to leak out. Kegel exercises can help you strengthen your pelvic floor muscles so they can better support the pelvic organs and control urine flow. How Kegel Exercises Are Done Try each of the Kegel exercises described below. When youre doing them, try not to move your leg, buttock, or stomach muscles. While youre urinating, try to stop the flow of urine. Start and stop it as often as you can. Contract as if you were stopping your urine stream, but do it when youre not urinating. Tighten your rectum as if trying not to pass gas. Contract your anus, but dont move your buttocks. Helpful Hints Do your Kegels as often as you can. The more you do them, the faster youll feel the results. Pick an activity you do often as a reminder. For instance, do your Kegels every time you sit down. Tighten your pelvic floor before you sneeze, get up from a chair, cough, laugh, or lift. This protects your pelvic floor from injury and can help prevent urine leakage. Try to hold each Kegel for a slow count to five. You probably wont be able to hold them for thatlong at first, but keep practicing. It will get easier as your pelvic floor gets stronger. Eventually, special weights that you place in your vagina may be recommended to help make your Kegels even more effective. Leann Patient Education Copyright 2008 - 2010 Leann except where otherwise noted. Here are some helpful tips for your urinary incontinence: (This education is for all patients over 65 regardless of symptoms) Practice Kegel exercises Use the restroom every 2 hours throughout the day Limit caffeine, alcohol, spicy foods, and acidic foods Keep a bladder diary Limit fluid intake 3-4 hours before bed Lose weight Prevent constipation Take fluid pills at a time when can get to the bathroom quickly Control sugar better if diabetic Limit fluid intake to 60 oz. per day Any questions, please feel free to contact our office. documented in this encounter Progress Notes * Markell Linton MD - 03/22/2023 3:41 PM EST Images from the original note were not included. Assessment and Plan 1. COPD, group C, by GOLD 2017 classification (HCC) On Flovent and as needed albuterol. Consider optimizing therapy in the future. 2. S/P TAVR (transcatheter aortic valve replacement) Noted. 3. Congestive heart failure due to valvular disease Continue Lasix 40 mg daily. Euvolemic on exam. 4. Chronic kidney disease, stage 3b (HCC) Refer to nephrology for further evaluation. - NEPHROLOGY REFERRAL OP - RENAL FUNCTION PANEL; Future - URINALYSIS, REFLEX TO MICROSCOPIC; Future - ALBUMIN / CREATININE RATIO, URINE; Future - US RENAL; Future 5. Paroxysmal atrial fibrillation (HCC) On metoprolol and amiodarone. Not on anticoagulation due to history of GI bleed. 6. Decubitus ulcer of ischial area, unspecified laterality, unspecified ulcer stage Would benefit from doughnut to relieve pressure. Also would benefit from hospital bed to assist with offloading. 7. Bilateral primary osteoarthritis of knee - traMADol HCl 50 MG Oral Tablet (Ultram); Take 1 Tablet by mouth every 12 hours as needed for Pain, Moderate. Dispense: 60 Tablet; Refill: 0 8. Risk and functional assessment Wrap-Up Follow up in 1 week for walk test. History of Present Illness The patient is a 72-year-old female with past medical history of dyslipidemia, COPD group C by [id number] classification, congestive heart failure secondary to valvular disease, history of TAVR, paroxysmal atrial fibrillation, morbid obesity, CKD stage IIIB, sacral decubitus ulcer who presents for follow up. Patient presents for walk study as there was concern that she requires oxygen. She unfortunately did not bring her walker and was unable to complete this study with a walker provided to her in the office. We will bring her back in a week for repeat testing. She does have a sacral pressure ulcer. This will require it does not which her family is currently obtaining. She also would benefit from a semi electric hospital bed as this would allow her to elevate the head of the bed above 30 to assist with respiratory status given her chronic pulmonary disease and allow her to frequently change her body position given her sacral ulcer. She was on chronic tramadol therapy. This was refilled today. She is awaiting follow up with Cardiology. We refilled her amiodarone today until she was seen by Cardiology. She was CKD stage 3 B. We discussed this diagnosis today. She was unaware of this previously. She was agreeable to seeing Nephrology given most recent GFR was 27. Physical Exam Vitals: 03/22/23 1513 Temp: 36.3 C (97.3 F) Pulse: 58 Resp: 16 SpO2: 97% BP: 130/62 Physical Exam Physical Exam Vitals reviewed. Constitutional: General: She is not in acute distress. Comments: Chronically ill-appearing female. Cardiovascular: Rate and Rhythm: Normal rate. Rhythm irregular. Heart sounds: No murmur heard. Pulmonary: Effort: Pulmonary effort is normal. No respiratory distress. Breath sounds: Normal breath sounds. No wheezing. Musculoskeletal: Cervical back: Neck supple. Lymphadenopathy: Cervical: No cervical adenopathy. Skin: General: Skin is warm and dry. Neurological: General: No focal deficit present. Mental Status: She is alert. Time: I spent a total of 40-54 minutes (exact time 43 mins) on the date of service in preparation, delivery, and documentation of the care provided to the patient excluding any time spent in the performance of separately billed services. documented in this encounter Nursing Notes * Tania Aguayo LPN - 03/22/2023 3:19 PM EST The patient has been properly identified by confirmation of name and date of . Chief Complaint Patient presents with Acute Walk test for oxygen Walk test was performed for about 5ft when patient had to stop due to being out of breath and having a hard time breathing. O2 saturation was at 94%. Patient did not want to continue any further. documented in this encounter Plan of Treatment Upcoming Encounters Date Type Department Care Team (Late st Contact Info) Description 03/29/2023 2:00 PM EST [facility] [address] [facility] [phone] AugustMarkell MD [address] [facility] [address] 05/09/2023 1:00 PM EST Office Visit Cardiology, [facility] [address] [facility] [place] [address] Nabila Fields CRNP [address] [place] [address] 06/08/2023 11:20 AM EST Office Visit [facility] [address] [facility] [phone] Chana Stacy PA-C [address] [facility] [address] Scheduled Orders Name Type Priority Associated Diagnoses Orde r Schedule RENAL FUNCTION PANEL Lab Routine Chronic kidney disease, stage 3b (HCC) Expected: 03/22/2023, Expires: 03/22/2024 URINALYSIS, REFLEX TO MICROSCOPIC Lab Routine Chronic kidney disease, stage 3b (HCC) Expected: 03/22/2023, Expires: 03/22/2024 ALBUMIN / CREATININE RATIO, URINE Lab Routine Chronic kidney disease, stage 3b (HCC) Expected: 03/22/2023, Expires: 03/22/2024 US RENAL Medical Imaging Routine Chronic kidney disease, stage 3b (HCC) Expected: 03/22/2023, Expires: 04/21/2024 Scheduled Referrals Name Type Priority Associated Diagnoses Orde r Schedule NEPHROLOGY REFERRAL OP Referral Within 10 days (routine) Chronic kidney disease, stage 3b (HCC) Ordered: 03/22/2023 Health Maintenance Due Date Last Done Comments COVID-19 Vaccine (#1) 03/12/1951 Alpha-1 Antitrypsin 1966 Mammogram 1988 Cologuard 1993 Fecal Occult Blood Test 1993 Sigmoidoscopy 1993 Zoster Vaccines (1 of 2) 1998 Pneumococcal Vaccine: 65+ Years (3 - PPSV23 or PCV20) 07/02/2018 11/25/2016, 07/02/2013 *ADVANCE DIRECTIVE NOT ON FILE 10/06/2018 Depression Screening 12/07/2020 12/08/2019 DXA Scan 06/06/2021 06/06/2014 CKD PHOS USE SMARTSET 30666 11/17/2021 11/17/2020 Influenza Vaccine (FLU shot) (#1) 2022 03/12/2013 Albumin/Creatinine Ratio 01/14/2023 01/14/2022 DTaP,Tdap,and Td Vaccines (2 - Td or Tdap) 07/03/2023 07/02/2013 GFR 09/06/2023 03/08/2023, 05/2 06/2022, 04/26/2022, Additional history exists CKD HGB USE SMARTSET 11535 03/08/202403/08, 09/13/2022, 04/26/2022, Additional history exists O2 ASSESSMENT COMPLETED IN PAST YEAR FOR COPD 03/08/2024 03/22/2023 TSH 03/08/2024 03/08/2023, 07/0 10/2020, 05/09/2019, Additional history exists Lipid Panel 04/26/2027 04/26/2022, 07/0 10/2020, 11/25/2016, [...] as of this encounter Visit Diagnoses Diagnosis Risk and functional assessment- Primary Screening for unspecified condition COPD, group C, by GOLD 2017 classification (HCC) S/P TAVR (transcatheter aortic valve replacement) Heart valve replaced by other means Congestive heart failure due to valvular disease Congestive heart failure, unspecified Chronic kidney disease, stage 3b (HCC) Paroxysmal atrial fibrillation (HCC) Atrial fibrillation Decubitus ulcer of ischial area, unspecified laterality, unspecified ulcer stage Bilateral primary osteoarthritis of knee documented in this encounter Advance Directives Latest [...] patients wishes and were consensually agreed upon. Healthcare Agents on File Name Relationship Healthcare Agent Relationship Communication Theresa Rolando Other - (no specific identity) Power of Refrigeration Mechanic Pino Marshall Other - (no specific identity) Power of Refrigeration Mechanic Pari Sullivan Other - (no specific identity) Power of Refrigeration Mechanic Care Teams Cork Cutter Relationship Specialty Start Date End Date Duglas Mayo MD [address] [place] [address] PCP - General Family Medicine 09/05/22 documented as of this encounter
--- OUTSIDE RECORDS SUMMARY | 2023-07-16 14:47 | External Medical Summary | Summary of Care ---
Author Name Unknown Organization [facility] Address [address] [place] [address] Phone [phone] Care Team Providers Care Cosmetology Educator Name Role Phone Duglas Mayo MD Primary Care Provider + [phone] Reason for Visit * Reason Onset Date Comments Advice 03/21/2023 Encounter Details Date Type Department Care Team (Late st Contact Info) Description 03/21/2023 Telephone [facility] [address] [place] [address] Chana Stacy PA-C [address] [place] [address] Advice Allergies Active Allergy Reactions [...] FOR WHEEZING 360 mL 2 07/17/2021 Active Additional Information Patient not taking.Reported on 12/21/2022 Ammonium Lactate 12 % External Lotion (Amlactin Daily)Indications:Ve nous stasis dermatitis of both lower extremities Apply topically to affected area as needed for Dry Skin. Apply to legs daily before putting socks on or at bedtime 400 g 0 01/14/2022 Active Additional Information Patient not taking.Reported on 09/16/2022 Ketoconazole 2 % External Cream APPLY TOPICALLY TO AFFECTED AREA 2 TIMES A DAY FOR 14 DAYS. APPLY TO AFFECTED AREA AFTER DRYING SKIN 30 g 1 03/03/2022 Active Additional Information Patient not taking.Reported on 12/21/2022 Compressor NebulizerIndications :COPD, group C, by GOLD 2017 classification ([facility]) Inhale via nebulizer . Use as directed. 1 Each 1 04/21/2022 Active Pulse Oximeter Deluxe Use as directed . 1 Each 1 04/21/2022 Active Albuterol Sulfate HFA 108 (90 Base) MCG/ACT Inhalation Aerosol SolutionIndications: COPD, group C, by GOLD 2017 classification ([facility]),Asthma with irreversible airway obstruction, unspecified asthma severity, uncomplicated ([facility]) INHALE 2 PUFFS BY MOUTH EVERY 6 HOURS NEEDED FOR WHEEZING 54 g 1 05/15/2022 Active Nebulizer/Tubing/Yecenia thpiece KitIndications:COPD, group C, by GOLD 2017 classification ([facility]) Use to nebulize medicaitons 1 Kit 1 05/25/2022 Active traMADol HCl 50 MG Oral Tablet (Ultram)Indications: Bilateral primary osteoarthritis of knee Take 1 Tablet by mouth every 6 hours as needed for Pain, Moderate. 30 Tablet 0 06/06/2022 Active Additional Information Patient taking differently:50 mg [id number] PRN, Pain, Moderate, Reported on 09/16/2022 Metoprolol Succinate ER 25 MG Oral Tablet [...] pressure sores. 25 Each 1 03/14/2023 Active Mupirocin 2 % External Ointment (Bactroban)Indicatio ns:Decubitus ulcer of ischial area, unspecified laterality, unspecified ulcer stage Apply topically to affected area 3 times a day for 14 days. Apply to affected area. 22 g 1 03/14/2023 Active Clopidogrel Bisulfate 75 MG [...] empty stomach.. 90 Tablet 3 03/21/2023 Active documented as of this encounter (statuses [...] Telephone Encounter - Sabrina Pacheco LPN - 03/22/2023 12:22 PM EST Everything has been faxed to [facility] * Telephone Encounter - Yashira Fernandes OSA - 03/22/2023 11:38 AM EST [facility] does not accept pt's insurance, out of network * Telephone Encounter - Chana Grubbs OSA - 03/22/2023 10:31 AM EST Sunny khan/ [employer] calling. They are needing the most recent OV note faxed to [phone]. Additionally, they need documentation that pt requires a hospital bed for frequency repositioning that cannot be achieved in a regular bed. She also needs a more specific diagnosis, as the current one is for an unspecified ulcer. Pls fax requested info to the number above. Thx. * Telephone Encounter - Tania Aguayo LPN - 03/21/2023 3:02 PM EST Faxed * Telephone Encounter - Markell Linton MD - 03/21/2023 1:40 PM EST Note addended with 90 degree positioning and requirement for frequent repositioning. Markell Linton MD * Telephone Encounter - Tania Aguayo LPN - 03/21/2023 11:02 AM EST I printed off all the documents if you could write a note for the 90 degree angle and frequent repositioning. Thank you * Telephone Encounter - Ginger Tolbert OSA - 03/21/2023 9:20 AM EST Oly[facility] from [facility] stating they received an order for a hospital bed, but need further information. They are requiring: Chart notes Rx 90 degree angle and frequent repositioning posted on the note documented in this encounter Plan of Treatment Upcoming Encounters Date Type Department Care Team (Late st Contact Info) Description 03/22/2023 3:20 PM EST Office Visit [facility] [address] [place] [facility] [place] [address] Markell Linotn MD [address] [place], [place] [id number] 05/09/2023 1:00 PM EST Office Visit Cardiology, [facility] [address] [place] [address] Nabila Fields CRNP [address] [place] [address] 06/08/2023 11:20 AM EST Office Visit [facility] [address] [place] [phone] Chana Stacy PA-C [address] [place] [address] Health Maintenance Due Date Last Done Comments COVID-19 Vaccine (#1) 03/12/1951 Alpha-1 Antitrypsin 1966 Mammogram 1988 Cologuard 1993 Fecal Occult Blood Test 1993 Sigmoidoscopy 1993 Zoster Vaccines (1 of 2) 1998 Pneumococcal Vaccine: 65+ Years (3 - PPSV23 or PCV20) 07/02/2018 11/25/2016, 07/02/2013 *ADVANCE DIRECTIVE NOT ON FILE 10/06/2018 Depression Screening 12/07/2020 12/08/2019 DXA Scan 06/06/2021 06/06/2014 CKD PHOS USE SMARTSET 40561 11/17/2021 11/17/2020 Influenza Vaccine (FLU shot) (#1) 2022 03/12/2013 Albumin/Creatinine Ratio 01/14/2023 01/14/2022 DTaP,Tdap,and Td Vaccines (2 - Td or Tdap) 07/03/2023 07/02/2013 GFR 09/06/2023 03/08/2023, 05/2 06/2022, 04/26/2022, Additional history exists CKD HGB USE SMARTSET 58009 03/08/202403/08, 09/13/2022, 04/26/2022, Additional history exists O2 ASSESSMENT COMPLETED IN PAST YEAR FOR COPD 03/08/2024 03/08/2023 TSH 03/08/2024 03/08/2023, 07/0 10/2020, 05/09/2019, Additional [...] Other - (no specific identity) Power of Sql Report Writer Pino Rolando Other - (no specific identity) Power of Sql Report Writer Pari Sullivan Other - (no specific identity) Power of Sql Report Writer Care Teams Cosmetology Educator Relationship Specialty Start Date End Date Duglas Mayo MD [address] [place] [address] PCP - General Family Medicine 09/05/22 documented as of this encounter
--- OUTSIDE RECORDS SUMMARY | 2023-07-16 14:47 | External Medical Summary | Summary of Care ---
Author Name Unknown Organization [facility] Address [address] [place] [address] Phone [phone] Care Team Providers Care Instrumentation Designer Name Role Phone Duglas Mayo MD Primary Care Provider [phone] Reason for Visit * Reason Onset Date Comments Medication Question 03/20/2023 Encounter Details Date Type Department Care Team (Late st Contact Info) Description 03/20/2023 Telephone [facility] [address] [place] [address] AugustMarkell MD [address] [place] [address] Medication Question Allergies Active Allergy Reactions Criticality Noted Date [...] Tab by mouth daily. 90 Tab 1 11/14/19 Active Ipratropium-Albute rol 0.5-2.5 (3) MG/3ML Inhalation Solution (Duoneb) INHALE 1 VIAL EVERY 4 TO 6 HOURS NEEDED FOR WHEEZING 360 mL 2 07/18/19 Active Additional Information Patient not taking.Reported on 12/21/2022 Ammonium Lactate 12 % External Lotion (Amlactin Daily)Indications: Venous stasis dermatitis of both lower extremities Apply topically to affected area as needed for Dry Skin. Apply to legs daily before putting socks on or at bedtime 400 g 0 01/15/20 Active Additional Information Patient not taking.Reported on 09/16/2022 Ketoconazole 2 % External Cream APPLY TOPICALLY TO AFFECTED AREA 2 TIMES A DAY FOR 14 DAYS. APPLY TO AFFECTED AREA AFTER DRYING SKIN 30 g 1 03/03/20 Active Additional Information Patient not taking.Reported on 12/21/2022 Compressor NebulizerIndicatio ns:COPD, group C, by GOLD 2017 classification ([facility]) Inhale via nebulizer . Use as directed. 1 Each 1 04/21/20 Active Pulse Oximeter Deluxe Use as directed . 1 Each 1 04/21/20 Active Albuterol Sulfate HFA 108 (90 Base) MCG/ACT Inhalation Aerosol SolutionIndication s:COPD, group C, by GOLD 2017 classification ([facility]),Asthma with irreversible airway obstruction, unspecified asthma severity, uncomplicated ([facility]) INHALE 2 PUFFS BY MOUTH EVERY 6 HOURS NEEDED FOR WHEEZING 54 g 1 05/15/19 23 Active Nebulizer/Tubing/M outhpiece KitIndications:TOBACCO PACKER D, group C, by GOLD 2017 classification ([facility]) Use to nebulize medicaitons 1 Kit 1 05/25/19 23 Active traMADol HCl 50 MG Oral Tablet (Ultram)Indication s:Bilateral primary osteoarthritis of knee Take 1 Tablet by mouth every 6 hours as needed for Pain, Moderate. 30 Tablet 0 06/06/19 23 Active Additional Information Patient taking differently:50 mg [id number] PRN, Pain, Moderate, Reported on 09/16/2022 Metoprolol [...] Flovent HFA 110 MCG/ACT Inhalation Aerosol 0 02/09/20 23 Active Furosemide 20 MG Oral Tablet (Lasix)Indications :Acute congestive heart failure, unspecified heart failure type (HCC),PAULETTE (acute kidney injury) (HCC) TAKE 2 TABLETS BY MOUTH EVERY MORNING 180 Tablet 1 03/08/20 23 Active Ferrous Sulfate 325 (65 Fe) MG Oral Tablet (Feosol)Indication s:Macrocytic anemia TAKE 1 TABLET BY MOUTH EVERY DAY AT 12 90 Tablet 3 03/08/20 23 Active Magnesium Oxide 400 MG Oral TabletIndications: Hypomagnesemia Take 1 Tablet by mouth in the morning and 1 Tablet before bedtime. 180 Tablet 1 03/12/20 23 Active Transparent DressingsIndicatio ns:Decubitus ulcer of ischial area, unspecified laterality, unspecified ulcer stage Use daily as needed for pressure sores. 25 Each 1 03/14/20 23 Active Mupirocin 2 % External Ointment (Bactroban)Indicat ions:Decubitus ulcer of ischial area, unspecified laterality, unspecified ulcer stage Apply topically to affected area 3 times a day for 14 days. Apply to affected area. 22 g 1 03/14/20 23 023 Active Pantoprazole Sodium 40 MG Oral Tablet Delayed Release (Protonix)Indicati ons:Esophageal reflux Take 1 Tablet by mouth in the morning and 1 Tablet before bedtime. 180 Tablet 1 03/20/20 Active Simvastatin 10 MG Oral Tablet (Zocor) TAKE 1 TABLET BY MOUTH EVERYDAY AT BEDTIME 90 Tablet 1 03/20/20 Active Levothyroxine Sodium 50 MCG Oral Tablet (Levoxyl)Indicatio ns:Hypothyroidism, unspecified type Take 1 Tablet by mouth in the morning. on an empty stomach.. 90 Tablet 3 03/21/20 Active Amiodarone HCl 200 MG Oral Tablet (Cordarone)Indicat ions:Paroxysmal atrial fibrillation (HCC) TAKE 1 TABLET BY MOUTH EVERY DAY 90 Tablet 3 12/30/19 22 023 Discontinued(Re fill) Topiramate 25 MG Oral Tablet (topAMAX)Indicatio ns:Chronic daily headache 1 tab by mouth three times a day 270 Tablet 1 01/25/20 22 023 Discontinued(Re fill) Levothyroxine Sodium 25 MCG Oral Tablet (Levoxyl)Indicatio ns:Acquired hypothyroidism TAKE 1 TAB BY MOUTH DAILY FIRST THING IN THE AM AT LEAST 30 MIN PRIOR TO BREAKFAST OR OTHER MEDS 90 Tablet 0 08/25/19 23 023 Discontinued Floranex Oral Tablet Take 2 Each by mouth in the morning and 2 Each before bedtime. 0 023 Discontinued(Re fill) Levothyroxine Sodium 50 MCG Oral Tablet (Levoxyl) 0 01/27/20 23 023 Discontinued documented as of this encounter (statuses [...] encounter Miscellaneous Notes * Telephone Encounter - Carole Duenas MED ASSIST - 03/22/2023 3:38 PM EST Pt present for appt 03/22 * Telephone Encounter - Tania Aguayo LPN - 03/21/2023 10:59 AM EST Patient was not able to speak right now and would like a call back in about an hour. * Telephone Encounter - Markell Linton MD - 03/21/2023 9:35 AM EST Patient requested multiple medications. These are all sent to [facility] in [place]. Will also discuss at upcoming appointment on 03/22/2023. Markell Linton MD * Telephone Encounter - Gregor iHlls PHARM Tech - 03/20/2023 11:45 AM EST Pt calling requesting the following medication below that is listed as "Historical". The following information was provided: Medication Name: Levothyroxine Strength: 50 mcg Directions: Take 1 tab daily. Preferred Quantity: 90 day supply with refills. Previous Prescriber: NA Preferred Pharmacy: [facility] Please review and approve if appropriate. Thank You, Gregor Hills [facility] Child Development Assistant II Centralized Clinical Pharmacy Services (Formerly Telepharmacy) 03/20/2023, 11:46 AM documented in this encounter Plan of Treatment Upcoming Encounters Date Type Department Care Team (Late st Contact Info) Description 05/09/2023 1:00 PM EST Office Visit Cardiology, [facility] [address] [facility] [place] [address] Nabila Fields CRNP [address] [place] [address] 06/08/2023 11:20 AM EST Office Visit [facility] [address] [place] [facility] [place] [phone] Chana Stacy PA-C [address] [place] [address] Health Maintenance Due Date Last Done Comments COVID-19 Vaccine (#1) 03/12/1951 Alpha-1 Antitrypsin 1966 Mammogram 1988 Cologuard 1993 Fecal Occult Blood Test 1993 Sigmoidoscopy 1993 Zoster Vaccines (1 of 2) 1998 Pneumococcal Vaccine: 65+ Years (3 - PPSV23 or PCV20) 07/02/2018 11/25/2016, 07/02/2013 *ADVANCE DIRECTIVE NOT ON FILE 10/06/2018 Depression Screening 12/07/2020 12/08/2019 DXA Scan 06/06/2021 06/06/2014 CKD PHOS USE SMARTSET 46941 11/17/2021 11/17/2020 Influenza Vaccine (FLU shot) (#1) 2022 03/12/2013 Albumin/Creatinine Ratio 01/14/2023 01/14/2022 DTaP,Tdap,and Td Vaccines (2 - Td or Tdap) 07/03/2023 07/02/2013 GFR 09/06/2023 03/08/2023, 08/23, 04/26/2022, Additional history exists CKD HGB USE SMARTSET 99890 03/08/202403/08, 09/13/2022, 04/26/2022, Additional history exists O2 [...] as of this encounter Visit Diagnoses Diagnosis Hypothyroidism, unspecified type- Primary documented in this encounter Advance Directives [...] Name Relationship Healthcare Agent Relationship Communication Theresa Marshall Other - (no specific identity) Power of Junior Web Developer Pino Marshall Other - (no specific identity) Power of Junior Web Developer Pari Sullivan Other - (no specific identity) Power of Junior Web Developer Care Teams Instrumentation Designer Relationship Specialty Start Date End Date Duglas Mayo MD [address] [place] [address] PCP - General Family Medicine 09/05/22 documented as of this encounter
--- OUTSIDE RECORDS SUMMARY | 2023-07-16 14:47 | External Medical Summary | Summary of Care ---
Author Name Unknown Organization [facility] Address [address] [place] [address] Phone [phone] Care Team Providers Care Dye Range Tender Name Role Phone Markell Linton MD Primary Care Provider [phone] Encounter Details Date Type Department Care Team (Late st Contact Info) Description 04/05/2023 Telephone [facility] [address] [place] [address] Markell Linton MD [address] [place] [address] Allergies Active Allergy Reactions Criticality Noted Date Comments Methylprednisolone Sodium Succ 12/06 Dog Dander Low 03/20/2019 Other reaction(s): Sneezing Food (See Comments) 02/23/2018 Duck eggs Swelling Pollen 08/25/2015 Nystatin 01/17/2019 Allergic reaction Pollen Extract 03/20/2019 Other reaction(s): HAYFEVER documented as of this encounter (statuses as of 04/05/2023) Medications Medication Sig Dispensed Refills Start Date [...] mouth daily. 90 Tab 1 11/14/2019 Active Ipratropium-Albuter ol 0.5-2.5 (3) MG/3ML Inhalation [...] FOR WHEEZING 54 g 1 04/02/2023 Active Umeclidinium-Vilant valentin 62.5-25 MCG/ACT Inhalation Aerosol Powder Breath Activated (ANORO ellipta)Indications :COPD, group C, by GOLD 2017 classification ([facility]) Inhale 1 Puff by mouth in the morning. 60 Blister Dosing Unit 3 04/04/2023 Active documented as of this encounter (statuses as of 04/05/2023) Active Problems Problem Noted Date Diagnosed Date [...] as of this encounter (statuses as of 04/05/2023) Resolved Problems Problem Noted Date Diagnosed Date [...] as of this encounter (statuses as of 04/05/2023) Immunizations Name Administration Dates Next Due Pneumococcal [...] OSA - 04/05/2023 1:43 PM EST 04/05/23 Par was made aware of adding a pt [...] 05/09/2023 1:00 PM EST Office Visit Cardiology, [facility] [address] [place] [address] Nabila Fields CRNP [address] [place] [address] 06/08/2023 11:20 AM EST Office Visit [facility] [address] [facility] [address] Chana Stacy [facility]-C [address] [facility] [address] Health Maintenance Due Date Last Done Comments COVID-19 Vaccine (#1) 03/12/1951 Alpha-1 Antitrypsin 1966 Mammogram 1988 Cologuard 1993 Fecal Occult Blood Test 1993 Sigmoidoscopy 1993 Zoster Vaccines (1 of 2) 1998 Pneumococcal Vaccine: 65+ Years (3 - PPSV23 or PCV20) 07/02/2018 11/25/2016, 07/02/2013 *ADVANCE DIRECTIVE NOT ON FILE 10/06/2018 Depression Screening 12/07/2020 12/08/2019 DXA Scan 06/06/2021 06/06/2014 CKD PHOS USE SMARTSET 38963 11/17/2021 11/17/2020 Influenza Vaccine (FLU shot) (#1) 2022 03/12/2013 Albumin/Creatinine Ratio 01/14/2023 01/14/2022 DTaP,Tdap,and Td Vaccines (2 - Td or Tdap) 07/03/2023 07/02/2013 GFR 09/06/2023 03/08/2023, 05/2 06/2022, 04/26/2022, Additional history exists CKD HGB USE SMARTSET 77194 03/08/202403/08, 09/13/2022, 04/26/2022, Additional history exists TSH [...] and were consensually agreed upon. Care Teams Dye Range Tender Relationship Specialty Start Date End Date August, Markell Heller MD [address] [place] [address] PCP - General Family Medicine 03/30/23 documented as of this encounter
--- OUTSIDE RECORDS SUMMARY | 2023-07-16 14:47 | External Medical Summary | Summary of Care ---
Author Name Unknown Organization [facility] Address [address] [place] [address] Phone [phone] Care Team Providers Care Director Of Healthcare Systems Name Role Phone Markell Linton MD Primary Care Provider [phone] Reason for Visit * Reason Onset Date Comments Medication Refill 04/01/2023 Encounter Details Date Type Department Care Team (Late st Contact Info) Description 04/01/2023 Telephone [facility] [address] [place] [address] AugustMarkell MD [address] [place] [address] Medication Refill Allergies Active Allergy Reactions Criticality Noted Date Comments Methylprednisolone Sodium Succ 12/06 Dog Dander Low 03/20/2019 Other reaction(s): Sneezing Food (See Comments) 02/23/2018 Duck eggs Swelling Pollen 08/25/2015 Nystatin 01/17/2019 Allergic reaction Pollen Extract 03/20/2019 Other reaction(s): HAYFEVER documented as of this encounter (statuses as of 04/04/2023) Medications Medication Sig Dispensed Refills Start Date [...] Pain, Moderate. 60 Tablet 0 03/22/2023 Active Umeclidinium-Vilant valentin 62.5-25 MCG/ACT Inhalation Aerosol Powder Breath Activated (ANORO ellipta)Indications :COPD, group C, by GOLD 2017 classification ([facility]) Inhale 1 Puff by mouth in the morning. 60 Blister Dosing Unit 3 04/04/2023 Active documented as of this encounter (statuses as of 04/04/2023) Active Problems Problem Noted Date Diagnosed Date [...] as of this encounter (statuses as of 04/04/2023) Resolved Problems Problem Noted Date Diagnosed Date [...] as of this encounter (statuses as of 04/04/2023) Immunizations Name Administration Dates Next Due Pneumococcal [...] Telephone Encounter - Markell Linton MD - 04/04/2023 7:53 AM EST Given COPD, I believe a different inhaler such as Anoro Ellipta on a daily basis will provide better control of breathing. This has been sent to [facility] in [place]. Notify the office if there are any issues obtaining this. Can continue to use albuterol on an as needed basis. Markell Linton MD * Telephone Encounter - Luis Alberto Mayfield manager culinary - 04/01/2023 9:41 AM EST Patient's Sister calling requesting the following medication below that is listed as "Historical". The following information was provided: Medication Name: Flovent HFA 110 MCG/ACT Inhalation Aerosol Strength: 110 MCG/ACT Directions: n/a Preferred Quantity: n/a Previous Prescriber: historical Preferred Pharmacy: [id number] Please review and approve if appropriate. Thank you, Luis Alberto Mayfield Short Filler Bunch Machine Operator I Centralized Clinical Pharmacy Services (CCPS)(formerly Telepharmacy) 04/01/2023,9:42 AM documented in this encounter Plan of Treatment Upcoming Encounters Date Type Department Care Team (Late st Contact Info) Description 05/09/2023 1:00 PM EST Office Visit Cardiology, [facility] [address] [id number] Nabila Fields, [place] [address] [place] [address] 06/08/2023 11:20 AM EST Office Visit [facility] [address] [place] [phone] Chana Stacy PA-C [address] [place] [address] Health Maintenance Due Date Last Done Comments COVID-19 Vaccine (#1) 03/12/1951 Alpha-1 Antitrypsin 1966 Mammogram 1988 Cologuard 1993 Fecal Occult Blood Test 1993 Sigmoidoscopy 1993 Zoster Vaccines (1 of 2) 1998 Pneumococcal Vaccine: 65+ Years (3 - PPSV23 or PCV20) 07/02/2018 11/25/2016, 07/02/2013 *ADVANCE DIRECTIVE NOT ON FILE 10/06/2018 Depression Screening 12/07/2020 12/08/2019 DXA Scan 06/06/2021 06/06/2014 CKD PHOS USE SMARTSET 21794 11/17/2021 11/17/2020 Influenza Vaccine (FLU shot) (#1) 2022 03/12/2013 Albumin/Creatinine Ratio 01/14/2023 01/14/2022 DTaP,Tdap,and Td Vaccines (2 - Td or Tdap) 07/03/2023 07/02/2013 GFR 09/06/2023 03/08/2023, 05/2 06/2022, 04/26/2022, Additional history exists CKD HGB USE SMARTSET 27402 03/08/202403/08, 09/13/2022, 04/26/2022, Additional history exists TSH [...] and were consensually agreed upon. Care Teams Director Of Healthcare Systems Relationship Specialty Start Date End Date August, Markell Heller MD [address] [place] [address] PCP - General Family Medicine 03/30/23 documented as of this encounter
--- OUTSIDE RECORDS SUMMARY | 2023-07-16 14:47 | External Medical Summary | Summary of Care ---
Author Name Unknown Organization [facility] Address [address] [place] [address] Phone [phone] Care Team Providers Care Keyboard Action Assembler Name Role Phone Duglas Mayo MD Primary Care Provider [phone] Encounter Details Date Type Department Care Team (Late st Contact Info) Description 03/15/2023 Telephone [facility] [address] [place] [address] AugustMarkell MD [address] [place] [address] Allergies Active Allergy Reactions Criticality Noted Date Comments Methylprednisolone Sodium Succ 12/06 Dog Dander Low 03/20/2019 Other reaction(s): Sneezing Food (See Comments) 02/23/2018 Duck eggs Swelling Pollen 08/25/2015 Nystatin 01/17/2019 Allergic reaction Pollen Extract 03/20/2019 Other reaction(s): HAYFEVER documented as of this encounter (statuses as of 03/28/2023) Medications Medication Sig Dispensed Refills Start Date [...] :COPD, group C, by GOLD 2017 classification ([facility]) Inhale via nebulizer . Use as directed. 1 Each 1 04/21/2022 Active Pulse Oximeter Deluxe Use as directed . 1 Each 1 04/21/2022 Active Albuterol Sulfate HFA 108 (90 Base) MCG/ACT Inhalation Aerosol SolutionIndications: COPD, group C, by GOLD 2017 classification ([facility]),Asthma with irreversible airway obstruction, unspecified asthma severity, uncomplicated ([facility]) INHALE 2 PUFFS BY MOUTH EVERY 6 HOURS NEEDED FOR WHEEZING 54 g 1 05/15/2022 Active Nebulizer/Tubing/Yecenia thpiece KitIndications:COPD, group C, by GOLD 2017 classification ([facility]) Use to nebulize medicaitons 1 Kit 1 [...] to affected area. 22 g 1 03/14/2023 3 Active documented as of this encounter (statuses as of 03/28/2023) Active Problems Problem Noted Date Diagnosed Date [...] as of this encounter (statuses as of 03/28/2023) Resolved Problems Problem Noted Date Diagnosed Date [...] 01/29/2018 02/08/2019 Overview: Per Obesity protocol #1 Myles 08/13/2015 01/25/2017 Dyslipidemia, goal LDL below 100 04/01/2013 09/05/2017 Dyslipidemia, goal to be determined 04/01/2013 Esophageal reflux 08/13/2015 documented as of this encounter (statuses as of 03/28/2023) Immunizations Name Administration Dates Next Due Pneumococcal [...] Telephone Encounter - Tania Aguayo LPN - 03/15/2023 12:02 PM EST [facility] has been faxed [phone] documented in this encounter Plan of Treatment Upcoming Encounters Date Type Department Care Team (Late st Contact Info) Description 03/29/2023 12:45 PM EST [facility] [address] [place] [facility] [place] [address] 03/29/2023 2:00 PM EST Office Visit [facility] [place] [address] [facility], [place] [phone] Markell Linton MD [address] [place] [address] 05/09/2023 1:00 PM EST Office Visit Cardiology, [facility] [address] [facility] [place] [address] Nabila Fields CRNP [address] [facility] [place] [address] 06/08/2023 11:20 AM EST [facility] [place] [address] [facility] [phone] Chana Stacy PA-C [address] [place] [address] Health Maintenance Due Date Last Done Comments COVID-19 Vaccine (#1) 03/12/1951 Alpha-1 Antitrypsin 1966 Mammogram 1988 Cologuard 1993 Fecal Occult Blood Test 1993 Sigmoidoscopy 1993 Zoster Vaccines (1 of 2) 1998 Pneumococcal Vaccine: 65+ Years (3 - PPSV23 or PCV20) 07/02/2018 11/25/2016, 07/02/2013 *ADVANCE DIRECTIVE NOT ON FILE 10/06/2018 Depression Screening 12/07/2020 12/08/2019 DXA Scan 06/06/2021 06/06/2014 CKD PHOS USE SMARTSET 86747 11/17/2021 11/17/2020 Influenza Vaccine (FLU shot) (#1) 2022 03/12/2013 Albumin/Creatinine Ratio 01/14/2023 01/14/2022 DTaP,Tdap,and Td Vaccines (2 - Td or Tdap) 07/03/2023 07/02/2013 GFR 09/06/2023 03/08/2023, 08/23, 04/26/2022, Additional history exists CKD HGB USE SMARTSET 47523 03/08/202403/08, 09/13/2022, 04/26/2022, Additional history exists TSH 03/08/2024 03/08/2023, 070 10/2020, 05/09/2019, Additional history exists O2 ASSESSMENT COMPLETED IN PAST YEAR FOR COPD 03/22/2024 03/22/2023 Lipid Panel 04/26/2027 04/26/2022, 07/0 10/2020, 11/25/2016, [...] Other - (no specific identity) Power of Organ Teacher Pino Marshall Other - (no specific identity) Power of Organ Teacher Pari Sullivan Other - (no specific identity) Power of Organ Teacher Care Teams Keyboard Action Assembler Relationship Specialty Start Date End Date Duglas Mayo MD [address] [place] [address] PCP - General Family Medicine 09/05/22 documented as of this encounter
--- OUTSIDE RECORDS SUMMARY | 2023-07-16 14:47 | External Medical Summary | Summary of Care ---
Author Name Unknown Organization [facility] Address [address] [place] [address] Phone [phone] Care Team Providers Care Manager Lvn Name Role Phone aMrkell Linton MD Primary Care Provider [phone] Reason for Visit * Reason Onset Date Comments Test Results 03/30/2023 Encounter Details Date Type Department Care Team ([facility] st Contact Info) Description 03/30/2023 Telephone [facility] [address] [place] [address] Markell Linton MD [address] [place] [address] Test Results Allergies Active Allergy Reactions Criticality Noted Date Comments Methylprednisolone Sodium Succ 12/06 Dog Dander Low 03/20/2019 Other reaction(s): Sneezing Food (See Comments) 02/23/2018 Duck eggs Swelling Pollen 08/25/2015 Nystatin 01/17/2019 Allergic reaction Pollen Extract 03/20/2019 Other reaction(s): HAYFEVER documented as of this encounter (statuses as of 03/30/2023) Medications Medication Sig Dispensed Refills Start Date [...] :COPD, group C, by GOLD 2017 classification ([facility]) Inhale via nebulizer . Use as directed. 1 Each 1 04/21/2022 Active Pulse Oximeter Deluxe Use as directed . 1 Each 1 04/21/2022 Active Albuterol Sulfate HFA 108 (90 Base) MCG/ACT Inhalation Aerosol SolutionIndications: COPD, group C, by GOLD 2017 classification ([facility]),Asthma with irreversible airway obstruction, unspecified asthma severity, uncomplicated ([facility]) INHALE 2 PUFFS BY MOUTH EVERY 6 HOURS NEEDED FOR WHEEZING 54 g 1 05/15/2022 Active Nebulizer/Tubing/Yecenia thpiece KitIndications:COPD, group C, by GOLD 2017 classification ([facility]) Use to nebulize medicaitons [...] as of this encounter (statuses as of 03/30/2023) Active Problems Problem Noted Date Diagnosed Date [...] as of this encounter (statuses as of 03/30/2023) Resolved Problems Problem Noted Date Diagnosed Date [...] as of this encounter (statuses as of 03/30/2023) Immunizations Name Administration Dates Next Due Pneumococcal [...] encounter Miscellaneous Notes * Telephone Encounter - Marlen Hendricks LPN - 03/30/2023 2:09 PM EST Spoke with Celia and she asked that I give her sister Theresa her test results Theresa made aware and conveyed verbal understanding * Telephone Encounter - Marlen Hendricks LPN - 03/30/2023 2:08 PM EST ----- Message from Markell Linton MD sent at 03/30/2023 10:33 AM EST ----- Renal ultrasound is unremarkable other than a benign cyst of the left kidney. Await nephrology follow up in the spring. Markell Linton MD documented in this encounter Plan of Treatment Upcoming Encounters Date Type Department Care Team (Late st Contact Info) Description 05/09/2023 1:00 PM EST Office Visit Cardiology, [facility] [address] [place] [address] Nabila Fields CRNP [address] [place] [address] 06/08/2023 11:20 AM EST Office Visit [facility] [address] [facility] [phone] Chana Stacy PA-C [address] [place] [address] Health Maintenance Due Date Last Done Comments COVID-19 Vaccine (#1) 03/12/1951 Alpha-1 Antitrypsin 1966 Mammogram 1988 Cologuard 1993 Fecal Occult Blood Test 1993 Sigmoidoscopy 1993 Zoster Vaccines (1 of 2) 1998 Pneumococcal Vaccine: 65+ Years (3 - PPSV23 or PCV20) 07/02/2018 11/25/2016, 07/02/2013 *ADVANCE DIRECTIVE NOT ON FILE 10/06/2018 Depression Screening 12/07/2020 12/08/2019 DXA Scan 06/06/2021 06/06/2014 CKD PHOS USE SMARTSET 17557 11/17/2021 11/17/2020 Influenza Vaccine (FLU shot) (#1) 2022 03/12/2013 Albumin/Creatinine Ratio 01/14/2023 01/14/2022 DTaP,Tdap,and Td Vaccines (2 - Td or Tdap) 07/03/2023 07/02/2013 GFR 09/06/2023 03/08/2023, 05/2 06/2022, 04/26/2022, Additional history exists CKD HGB USE SMARTSET 80864 03/08/202403/08, 09/13/2022, 04/26/2022, Additional history exists TSH [...] Other - (no specific identity) Power of Core Microarchitect Pino Marshall Other - (no specific identity) Power of Core Microarchitect Pari Sullivan Other - (no specific identity) Power of Core Microarchitect Care Teams Manager Lvn Relationship Specialty Start Date End Date August, Markell Heller MD [address] [place] [address] PCP - General Family Medicine 03/30/23 documented as of this encounter
--- OUTSIDE RECORDS SUMMARY | 2023-07-16 14:47 | External Medical Summary | Summary of Care ---
Author Name Unknown Organization [facility] Address [address] [place] [address] Phone [phone] Care Team Providers Care Press Shop Supervisor Name Role Phone Markell Linton MD Primary Care Provider [phone] Reason for Visit * Reason Onset Date Comments Advice 04/05/2023 Encounter Details Date Type Department Care Team (Late st Contact Info) Description 04/05/[address] [facility] [address] [place] [address] Markell Linton MD [address] [place] [address] Advice Allergies Active Allergy Reactions [...] s:COPD, group C, by GOLD 2017 classification ([facility]) Inhale via nebulizer . Use as directed. 1 Each 1 2 Active Pulse Oximeter Deluxe Use as directed . 1 Each 1 2 Active Nebulizer/Tubing/Mo uthpiece KitIndications:COPD , group C, by GOLD 2017 classification ([facility]) Use to nebulize medicaitons 1 [...] :COPD, group C, by GOLD 2017 classification ([facility]),Asthma with irreversible airway obstruction, unspecified asthma severity, uncomplicated ([facility]) INHALE 2 PUFFS BY MOUTH EVERY 6 HOURS NEEDED FOR WHEEZING 54 g 1 3 Active Tiotropium Clio-Olodaterol 2.5-2.5 MCG/ACT Inhalation Aerosol Solution (Stiolto Respimat)Indication s:COPD, group C, by GOLD 2017 classification ([facility]) Inhale 2 Puffs by mouth in the morning. 4 g 3 3 Active Umeclidinium-Vilant valentin 62.5-25 MCG/ACT Inhalation Aerosol Powder Breath Activated (ANORO ellipta)Indications :COPD, group C, by GOLD 2017 classification ([facility]) Inhale 1 Puff by mouth in the [...] 7:14 PM EST Stiolto Respimat sent to [facility] in [place] as alternative. Markell Linton MD * Telephone [...] transitioning the patient from being in a correction to being back home.She advised that there are discrepancies of how and when she takes certain medications.Please contact her back in regards to this matter yogesh Patient Contact: or documented in this encounter Plan of Treatment Upcoming Encounters Date Type Department Care Team (Late st Contact Info) Description 05/09/2023 1:00 PM EST Office Visit Cardiology, [facility] [address] [facility] [place] [address] Nabila Fields CRNP [address] [facility] [place] [address] 06/08/2023 11:20 AM EST Office Visit [facility] [address] [facility] [phone] Chana Stacy PA-C [address] [place], [place] [phone] Health Maintenance Due Date Last Done Comments COVID-19 Vaccine (#1) 03/12/1951 Alpha-1 Antitrypsin 1966 Mammogram 1988 Cologuard 1993 Fecal Occult Blood Test 1993 Sigmoidoscopy 1993 Zoster Vaccines (1 of 2) 1998 Pneumococcal Vaccine: 65+ Years (3 - PPSV23 or PCV20) 07/02/2018 11/25/2016, 07/02/2013 *ADVANCE DIRECTIVE NOT ON FILE 10/06/2018 Depression Screening 12/07/2020 12/08/2019 DXA Scan 06/06/2021 06/06/2014 CKD PHOS USE SMARTSET 49719 11/17/2021 11/17/2020 Influenza Vaccine (FLU shot) (#1) 2022 03/12/2013 Albumin/Creatinine Ratio 01/14/2023 01/14/2022 DTaP,Tdap,and Td Vaccines (2 - Td or Tdap) 07/03/2023 07/02/2013 GFR 09/06/2023 03/08/2023, 05/2 06/2022, 04/26/2022, Additional history exists CKD HGB USE SMARTSET 90998 03/08/202403/08, 09/13/2022, 04/26/2022, Additional history exists TSH [...] and were consensually agreed upon. Care Teams Press Shop Supervisor Relationship Specialty Start Date End Date August, Markell Heller MD [address] [place] [address] PCP - General Family Medicine 03/30/23 documented as of this encounter
--- OUTSIDE RECORDS SUMMARY | 2023-07-16 14:47 | External Medical Summary | Summary of Care ---
Author Name Unknown Organization [facility] Address [address] [place] [address] Phone [phone] Care Team Providers Care Green Chain Offbearer Name Role Phone Markell Linton MD Primary Care Provider Reason for Visit * Reason Onset Date Comments Medication Refill 04/01/2023 Encounter Details Date Type Department Care Team (Late st Contact Info) Description 04/01/2023 Telephone [facility] [address] [place] [address] AugustMarkell MD [address] [place] [address] Medication Refill Allergies Active Allergy [...] s:COPD, group C, by GOLD 2017 classification ([facility]) Inhale via nebulizer . Use as directed. 1 Each 1 04/21/2022 Active Pulse Oximeter Deluxe Use as directed . 1 Each 1 04/21/2022 Active Nebulizer/Tubing/Mo uthpiece KitIndications:COPD , group C, by GOLD 2017 classification ([facility] [...] 2017 classification ([facility]) Inhale 1 Puff by mouth [...] Telephone Encounter - Sabrina Pacheco LPN - 04/04/2023 8:50 AM EST I identified pt by name and , verified by patient. Pt has been informed of below message and verbalized understanding. * Telephone Encounter - Markell Linton MD - 04/04/2023 7:53 AM EST Given COPD, I believe a different inhaler such as Anoro Ellipta on a daily basis will provide better control of breathing. This has been sent to [facility] in [place]. Notify the office if there are any issues obtaining this. Can continue to use albuterol on an as needed basis. Markell Linton MD * Telephone Encounter - Luis Alberto Mayfield, clip baker - 04/01/2023 9:41 AM EST Patient's Sister calling requesting the following medication below that is listed as "Historical". The following information was provided: Medication Name: Flovent HFA 110 MCG/ACT Inhalation Aerosol Strength: 110 MCG/ACT Directions: n/a Preferred Quantity: n/a Previous Prescriber: historical Preferred Pharmacy: [id number] Please review and approve if appropriate. Thank you, Luis Alberto Mayfield Curve Cleaner [facility] 04/01/2023,9:42 AM documented in this encounter Plan of Treatment Upcoming Encounters Date Type Department Care Team (Late st Contact Info) Description 05/09/2023 1:00 PM EST Office Visit Cardiology, [facility] [address] [facility] [place] [address] Nabila Fields CRNP [address] [place] [address] 06/08/2023 11:20 AM EST Office Visit Family Practice, [place] [address] [place] [phone] Chana Stacy PA-C [address] [place] [address] Health Maintenance Due Date Last Done Comments COVID-19 Vaccine (#1) 03/12/1951 Alpha-1 Antitrypsin 1966 Mammogram 1988 Cologuard 1993 Fecal Occult Blood Test 1993 Sigmoidoscopy 1993 Zoster Vaccines (1 of 2) 1998 Pneumococcal Vaccine: 65+ Years (3 - PPSV23 or PCV20) 07/02/2018 11/25/2016, 07/02/2013 *ADVANCE DIRECTIVE NOT ON FILE 10/06/2018 Depression Screening 12/07/2020 12/08/2019 DXA Scan 06/06/2021 06/06/2014 CKD PHOS USE SMARTSET 93044 11/17/2021 11/17/2020 Influenza Vaccine (FLU shot) (#1) 2022 03/12/2013 Albumin/Creatinine Ratio 01/14/2023 01/14/2022 DTaP,Tdap,and Td Vaccines (2 - Td or Tdap) 07/03/2023 07/02/2013 GFR 09/06/2023 03/08/2023, 05/06/2022, 04/26/2022, Additional history exists CKD HGB USE SMARTSET 48754 03/08/202403/08, 09/13/2022, 04/26/2022, Additional history exists TSH [...] and were consensually agreed upon. Care Teams Green Chain Offbearer Relationship Specialty Start Date End Date August, Markell Heller MD [address] [facility] [place] [address] PCP - General Family Medicine 03/30/23 documented as of this encounter
--- OUTSIDE RECORDS SUMMARY | 2023-07-16 14:47 | External Medical Summary | Summary of Care ---
Author Name Unknown Organization [facility] Address [address] [place] [address] Phone [phone] Care Team Providers Care Editor House Organ Name Role Phone Markell Linton MD Primary Care Provider Reason for Visit * Reason Onset Date Comments Medication Refill 04/01/2023 Encounter Details Date Type Department Care Team (Late st Contact Info) Description 04/01/2023 Refill [facility] [address] [place] [address] AugustMarkell MD [address] [place] [address] COPD, group C, by GOLD 2017 classification ([facility]); Asthma with irreversible airway obstruction, unspecified asthma severity, uncomplicated ([facility]) Allergies Active Allergy Reactions Criticality Noted Date Comments Methylprednisolone Sodium Succ 12/06 Dog Dander Low 03/20/2019 Other reaction(s): Sneezing Food (See Comments) 02/23/2018 Duck eggs Swelling Pollen 08/25/2015 Nystatin 01/17/2019 Allergic reaction Pollen Extract 03/20/2019 Other reaction(s): HAYFEVER documented as of this encounter (statuses as of 04/02/2023) Medications Medication Sig Dispensed Refills Start Date [...] s:COPD, group C, by GOLD 2017 classification ([facility]) Inhale via nebulizer . Use as directed. 1 Each 1 2 Active Pulse Oximeter Deluxe Use as directed . 1 Each 1 2 Active Nebulizer/Tubing/Mo uthpiece KitIndications:COPD , group C, by GOLD 2017 classification ([facility]) Use to nebulize medicaitons 1 [...] :COPD, group C, by GOLD 2017 classification ([facility]),Asthma with irreversible airway obstruction, unspecified asthma severity, uncomplicated ([facility]) INHALE 2 PUFFS BY MOUTH EVERY 6 HOURS NEEDED FOR WHEEZING 54 g 1 3 Active Albuterol Sulfate HFA 108 (90 Base) MCG/ACT Inhalation Aerosol SolutionIndications :COPD, group C, by GOLD 2017 classification ([facility]),Asthma with irreversible airway obstruction, unspecified asthma severity, uncomplicated ([facility]) INHALE 2 PUFFS BY MOUTH EVERY 6 HOURS NEEDED FOR WHEEZING 54 g 1 3 04/01/20 23 Discontinu ed(Refill) documented as of this encounter (statuses as of 04/02/2023) Active Problems Problem Noted Date Diagnosed Date [...] as of this encounter (statuses as of 04/02/2023) Resolved Problems Problem Noted Date Diagnosed Date [...] as of this encounter (statuses as of 04/02/2023) Immunizations Name Administration Dates Next Due Pneumococcal [...] encounter Miscellaneous Notes * Telephone Encounter - Kristen Moreira RPh - 04/02/2023 11:15 AM ESTSigned Prescriptions: Disp Refills Albuterol Sulfate HFA 108 (90 Base) MCG/AC*54 g 1 Sig: INHALE 2 PUFFS BY MOUTH EVERY 6 HOURS NEEDED FOR WHEEZING Authorizing Provider: CHANA STACY Ordering User: KRISTEN MOREIRA * Telephone Encounter - Luis Alberto Mayfield, welfare adviser - 04/01/2023 9:36 AM EST Did you pend patient's preferred pharmacy and medication before forwarding?yes Pharmacy: [id number] [address] [place] [address] Pending Prescriptions: Disp Refills Albuterol Sulfate HFA 108 (90 Base) MCG/A*54 g 1 Sig: INHALE 2 PUFFS BY MOUTH EVERY 6 HOURS NEEDED FOR WHEEZING Last Visit: 03/29/2023 (in office), 04/21/2022 (telemedicine) Next Visit: 06/08/2023 If no future appointments scheduled, and last appointment is greater than a year ago, please schedule patient for a follow-up appointment Last date the medication was ordered: 05/15/2022 Is this request for a controlled substance?No [...] 05/09/2023 1:00 PM EST Office Visit Cardiology, [facility] [address] [place] [address] Nabila Fields CRNP [address] [place] [address] 06/08/2023 11:20 AM EST Office Visit [facility] [address] [place] [facility] [place] [phone] Chana Stacy PA-C [address] [place], [place] [phone] Health Maintenance Due Date Last Done Comments COVID-19 Vaccine (#1) 03/12/1951 Alpha-1 Antitrypsin 1966 Mammogram 1988 Cologuard 1993 Fecal Occult Blood Test 1993 Sigmoidoscopy 1993 Zoster Vaccines (1 of 2) 1998 Pneumococcal Vaccine: 65+ Years (3 - PPSV23 or PCV20) 07/02/2018 11/25/2016, 07/02/2013 *ADVANCE DIRECTIVE NOT ON FILE 10/06/2018 Depression Screening 12/07/2020 12/08/2019 DXA Scan 06/06/2021 06/06/2014 CKD PHOS USE SMARTSET 61219 11/17/2021 11/17/2020 Influenza Vaccine (FLU shot) (#1) 2022 03/12/2013 Albumin/Creatinine Ratio 01/14/2023 01/14/2022 DTaP,Tdap,and Td Vaccines (2 - Td or Tdap) 07/03/2023 07/02/2013 GFR 09/06/2023 03/08/2023, 08/23, 04/26/2022, Additional history exists CKD HGB USE SMARTSET 02977 03/08/202403/08, 09/13/2022, 04/26/2022, Additional history exists TSH [...] group C, by GOLD 2017 classification ([facility]) Asthma with irreversible airway obstruction, unspecified asthma severity, uncomplicated ([facility]) documented in this encounter Advance Directives Latest [...] and were consensually agreed upon. Care Teams Editor House Organ Relationship Specialty Start Date End Date August, Markell Heller MD [address] [place] [facility] [address] PCP - General Family Medicine 03/30/23 documented as of this encounter
--- OUTSIDE RECORDS SUMMARY | 2023-07-16 14:47 | External Medical Summary | Summary of Care ---
Author Name Unknown Organization [facility] Address [address] [place] [address] Phone [phone] Care Team Providers Care Retail Advertising Sales Manager Name Role Phone Duglas Mayo MD Primary Care Provider + [phone] Reason for Visit * Reason Onset Date Comments Advice 03/21/2023 Encounter Details Date Type Department Care Team (Late st Contact Info) Description 03/21/2023 Telephone [facility] [address] [place] [address] Chana Stacy PA-C [address] [place] [address] Advice Allergies Active Allergy Reactions [...] :COPD, group C, by GOLD 2017 classification ([facility]) Inhale via nebulizer . Use as directed. 1 Each 1 04/21/2022 Active Pulse Oximeter Deluxe Use as directed . 1 Each 1 04/21/2022 Active Albuterol Sulfate HFA 108 (90 Base) MCG/ACT Inhalation Aerosol SolutionIndications: COPD, group C, by GOLD 2017 classification ([facility]),Asthma with irreversible airway obstruction, unspecified asthma severity, uncomplicated ([facility]) INHALE 2 PUFFS BY MOUTH EVERY 6 HOURS NEEDED FOR WHEEZING 54 g 1 05/15/2022 Active Nebulizer/Tubing/Yecenia thpiece KitIndications:COPD, group C, by GOLD 2017 classification ([facility]) Use to nebulize medicaitons 1 Kit 1 05/25/2022 Active traMADol HCl 50 MG Oral Tablet (Ultram)Indications: Bilateral primary osteoarthritis of knee Take 1 Tablet by mouth every 6 hours as needed for Pain, Moderate. 30 Tablet 0 06/06/2022 Active Additional Information Patient taking differently:50 mg [id number] PRN, Pain, Moderate, Reported on 09/16/2022 Metoprolol [...] encounter Miscellaneous Notes * Telephone Encounter - Yashira Fernandes OSA - 03/22/2023 11:38 AM EST [facility] does not accept pt's insurance, out of network * Telephone Encounter - Chana Grubbs OSA - 03/22/2023 10:31 AM EST [facility] [employer] calling. They are needing the most recent OV note faxed to [phone]. Additionally, they need documentation that pt requires [...] 9:20 AM EST Olya from [facility] stating they received an order for a hospital bed, but need further information. They are requiring: Chart notes Rx 90 degree angle and frequent repositioning posted on the note documented in this encounter Plan of Treatment Upcoming Encounters Date Type Department Care Team (Late st Contact Info) Description 03/22/2023 3:20 PM EST Office Visit [facility] [address] [place] [address] Markell Linton MD [address] [place] [address] 05/09/2023 1:00 PM EST Office Visit Cardiology, [facility] [address] [place] [address] Nabila Fields CRNP [address] [place] [address] 06/08/2023 11:20 AM EST Office Visit [facility] [address] [place] [facility] [place] [facility] [place] [phone] Chana Stacy PA-C [address] [place] [facility] [place] [address] Health Maintenance Due Date Last Done Comments COVID-19 Vaccine (#1) 03/12/1951 Alpha-1 Antitrypsin 1966 Mammogram 1988 Cologuard 1993 Fecal Occult Blood Test 1993 Sigmoidoscopy 1993 Zoster Vaccines (1 of 2) 1998 Pneumococcal Vaccine: 65+ Years (3 - PPSV23 or PCV20) 07/02/2018 11/25/2016, 07/02/2013 *ADVANCE DIRECTIVE NOT ON FILE 10/06/2018 Depression Screening 12/07/2020 12/08/2019 DXA Scan 06/06/2021 06/06/2014 CKD PHOS USE SMARTSET 97160 11/17/2021 11/17/2020 Influenza Vaccine (FLU shot) (#1) 2022 03/12/2013 Albumin/Creatinine Ratio 01/14/2023 01/14/2022 DTaP,Tdap,and Td Vaccines (2 - Td or Tdap) 07/03/2023 07/02/2013 GFR 09/06/2023 03/08/2023, 0506/2022, 04/26/2022, Additional history exists CKD HGB USE SMARTSET 16313 03/08/202403/08, 09/13/2022, 04/26/2022, Additional history exists O2 [...] Other - (no specific identity) Power of Coke Crane Operator Pino Rolando Other - (no specific identity) Power of Coke Crane Operator Pari Sullivan Other - (no specific identity) Power of Coke Crane Operator Care Teams Retail Advertising Sales Manager Relationship Specialty Start Date End Date Duglas Mayo MD [address] [place] [address] PCP - General Family Medicine 09/05/22 documented as of this encounter
--- OUTSIDE RECORDS SUMMARY | 2023-07-16 14:47 | External Medical Summary | Summary of Care ---
Author Name Unknown Organization [facility] Address [address] [place] [address] Phone [phone] Care Team Providers Care Scrubber Operator Name Role Phone Duglas Mayo MD Primary Care Provider [phone] Reason for Visit * Reason Comments Follow Up Walking test Encounter Details Date Type Department Care Team (Latest Contact Info) Description 03/29/2023 2:00 PM EST Office Visit [facility] [address] [place] [address] MayMarkell MD [address] [place], [place] [id number] COPD, group C, by GOLD 2017 classification ([facility])*; Congestive heart failure due to valvular disease ; Morbid obesity ([facility]); Chronic kidney disease, stage 3b ([facility]) Allergies Active Allergy Reactions Criticality Noted Date Comments Methylprednisolone Sodium Succ 12/06 Dog Dander Low 03/20/2019 Other reaction(s): Sneezing Food (See Comments) 02/23/2018 Duck eggs Swelling Pollen 08/25/2015 Nystatin 01/17/2019 Allergic reaction Pollen Extract 03/20/2019 Other reaction(s): HAYFEVER documented as of this encounter (statuses as of 03/29/2023) Medications Medication Sig Dispensed Refills Start Date [...] C, by GOLD 2017 classification ([facility]) Inhale via nebulizer . Use as directed. 1 Each 1 04/21/2022 Active Pulse Oximeter Deluxe Use as directed . 1 Each 1 04/21/2022 Active Albuterol Sulfate HFA 108 (90 Base) MCG/ACT Inhalation Aerosol SolutionIndications: COPD, group C, by GOLD 2017 classification ([facility]),Asthma with irreversible airway obstruction, unspecified asthma severity, uncomplicated ([facility]) INHALE 2 PUFFS BY MOUTH EVERY 6 HOURS NEEDED FOR WHEEZING 54 g 1 05/15/2022 Active Nebulizer/Tubing/Yceenia thpiece KitIndications:COPD, group C, by GOLD 2017 classification ([facility]) Use to nebulize medicaitons 1 Kit [...] as of this encounter (statuses as of 03/29/2023) Active Problems Problem Noted Date Diagnosed Date [...] as of this encounter (statuses as of 03/29/2023) Resolved Problems Problem Noted Date Diagnosed Date [...] 01/29/2018 02/08/2019 Overview: Per Obesity protocol #1 Shingldavid 08/13/2015 01/25/2017 Dyslipidemia, goal LDL below 100 04/01/2013 09/05/2017 Dyslipidemia, goal to be determined 04/01/2013 Esophageal reflux 08/13/2015 documented as of this encounter (statuses as of 03/29/2023) Immunizations Name Administration Dates Next Due Pneumococcal [...] Sign Reading Time Taken Comments Blood Pressure 110/72 03/29/2023 1:39 PM EST Pulse 53 03/29/2023 1:39 PM EST Temperature 36 C (96.8 F) 03/29/2023 1:39 PM EST Respiratory Rate - - Oxygen Saturation 98% 03/29/2023 1:39 PM EST Inhaled Oxygen Concentration - - Weight 110.9 kg (244 lb 9.6 oz) 03/29/2023 1:39 PM EST Height - - Body Mass Index 38.31 06/06/2022 10:23 AM EST documented in this [...] as of this encounter Progress Notes * MayMarkell MD - 03/29/2023 2:18 PM EST Images from the original note were not included. Assessment and Plan Patient does not qualify for home oxygen. She now has a hospital bed to assist with respiratory status given COPD and to reduce risk of pressure ulcers. Discussed importance of daily weights to monitor for fluid overload. Plan for cardiology follow up in April and establishment with Nephrology inApril or August 2023. 1. COPD, group C, by GOLD 2017 classification ([facility]) 2. Congestive heart failure due to valvular disease 3. Morbid obesity ([facility]) 4. Chronic kidney disease, stage 3b ([facility]) Wrap-Up Follow up as scheduled with PCP in May. History of Present Illness The patient is a 72-year-old female with past medical history of dyslipidemia, COPD, asthma, paroxysmal atrial fibrillation, history of TAVR, CKD stage IIIB who presents for follow up. Patient able to finally receive a hospital bed for home use. This was delivered yesterday. Presents today for repeat walk steady. Last week a walk study was attempted, however, patient did not have her home walker. Today walk steady was attempted, however, patient was unable to complete due to pain. Oxygen range between 99 and 94%. Patient's weight is up 5 lb from visit last week. She appears euvolemic on exam. This may be related to change in close. We did discuss importance of monitoring weight at home. I am not exactly sure with the patient's dry weight is at this point given she had a 50 lb weight loss while in a nursing facility. We discussed taking a weight at home today and making this for presumed dry weight for themoment until she follows up with Cardiology as she does appear euvolemic on exam today. Discussed importance of low-sodium diet. Recommend less than 1800 mg of sodium if possible. Continue Lasix 40 mg daily. Physical Exam Vitals: 03/29/23 1339 Temp: 36 C (96.8 F) Pulse: 53 SpO2: 98% BP: 110/72 Physical Exam Physical Exam Vitals reviewed. Constitutional: General: She is not in acute distress. Comments: Using wheelchair for mobility. Cardiovascular: Rate and Rhythm: Normal rate and regular rhythm. Heart sounds: No murmur heard. Pulmonary: Effort: Pulmonary effort is normal. No respiratory distress. Breath sounds: Normal breath sounds. Musculoskeletal: Right lower leg: No edema. Left lower leg: No edema. Skin: General: Skin is warm and dry. Neurological: General: No focal deficit present. Mental Status: She is alert. Time: I spent a total of 30-39 minutes (exact time 35 mins) on the date of service in preparation, delivery, and documentation of the care provided to the patient excluding any time spent in the performance of separately billed services. documented in this encounter Nursing Notes * Tania Aguayo LPN - 03/29/2023 1:52 PM EST Patient walked up the hallway and back down into the room 3; she was winded and did make 3 rests during the walk. Her O2 level ranged from 99 and would drop to 94. * Smita Shah Student - 03/29/2023 1:39 PM EST Chief Complaint Patient presents with Follow Up Walking test documented in this encounter Plan of Treatment Upcoming Encounters Date Type Department Care Team (Late st Contact Info) Description 05/09/2023 1:00 PM EST Office Visit Cardiology, [facility] [address] [facility] [place] [address] Nabila Fields CRNP [address] [place] [address] 06/08/2023 11:20 AM EST Office Visit Family [facility] [address] [place] [phone] Chana Stacy PA-C [address] [place] [address] Health Maintenance Due Date Last Done Comments COVID-19 Vaccine (#1) 03/12/1951 Alpha-1 Antitrypsin 1966 Mammogram 1988 Cologuard 1993 Fecal Occult Blood Test 1993 Sigmoidoscopy 1993 Zoster Vaccines (1 of 2) 1998 Pneumococcal Vaccine: 65+ Years (3 - PPSV23 or PCV20) 07/02/2018 11/25/2016, 07/02/2013 *ADVANCE DIRECTIVE NOT ON FILE 10/06/2018 Depression Screening 12/07/2020 12/08/2019 DXA Scan 06/06/2021 06/06/2014 CKD PHOS USE SMARTSET 37526 11/17/2021 11/17/2020 Influenza Vaccine (FLU shot) (#1) 2022 03/12/2013 Albumin/Creatinine Ratio 01/14/2023 01/14/2022 DTaP,Tdap,and Td Vaccines (2 - Td or Tdap) 07/03/2023 07/02/2013 GFR 09/06/2023 03/08/2023, 0506/2022, 04/26/2022, Additional history exists CKD HGB USE SMARTSET 03890 03/08/202403/08, 09/13/2022, 04/26/2022, Additional history exists TSH [...] C, by GOLD 2017 classification (HCC)- Primary Congestive heart failure due to valvular disease Congestive heart failure, unspecified Morbid obesity (HCC) Morbid obesity Chronic kidney [...] Other - (no specific identity) Power of Outpatient Coding Specialist Pino Rolando Other - (no specific identity) Power of Outpatient Coding Specialist Pari Sullivan Other - (no specific identity) Power of Outpatient Coding Specialist Care Teams Scrubber Operator Relationship Specialty Start Date End Date [place], Duglas M, MD [address] [place] [address] PCP - General Family Medicine 09/05/22 documented as of this encounter
--- OUTSIDE RECORDS SUMMARY | 2023-07-16 14:47 | External Medical Summary ---
Author Name UNSPECIFIED Address Unknown Organization [facility] History of Encounters Reason for Assessment: Start of care - f urther visits planned Inpatient discharge facility: Past 14 Da ys: Discharged from Senior Living Facility Most Recent Inpatient Discharge Date: Functional Assessment Patient Living Situation: Patient lives with other person(s) in the home: Around the clock Patient Has At Least 1 Unhea led Pressure Ulcer At Stage 2 Or Higher: Yes When Dyspneic: With minimal exertio n (e.g., while eating, talking, or performing other ADLs) or with agitation Bowel Incontinence Frequency: Very rarel y or never has bowel incontinence When Anxious (Reported or Observed): Yvonne ly, but not constantly Cognitive and Behavioral and Psychiatric Symptoms: None Current Ability: Bathing: able to partic ipate in bathing self in shower or tub, but requires presence of another person throughout the bath for assistance or supervision. Current Ability: Ambulation: Able to wal k only with the supervision or assistance of another person at all times. Current: Management Of Oral Medications: Unable to take medication unless administered by another person Problems Primary Home Care Diagnosis ICD Code: L8 9.312, Pressure ulcer of right buttock, stage 2 Home Care Diagnosis 1: ICD Code: L89.322 , Pressure ulcer of left buttock, stage 2 Home Care Diagnosis 1: Severity Ratin Home Care Diagnosis 2: ICD Code: J44.9, Chronic obstructive pulmonary disease, unspecified Home Care Diagnosis 2: Severity Ratin Home Care Diagnosis 3: ICD Code: I13.0, Hyp hrt & chr kdny dis w hrt fail and stg 1-4/unsp chr kdny Home Care Diagnosis 3: Severity Ratin Home Care Diagnosis 4: ICD Code: I50.9, Heart failure, unspecified Home Care Diagnosis 4: Severity Ratin Home Care Diagnosis 5: ICD Code: N18.30^ ^ Home Care Diagnosis 5: Severity Ratin
--- OUTSIDE RECORDS SUMMARY | 2023-07-16 14:48 | External Medical Summary | Summary of Care ---
Author Name Unknown Organization [facility] Address [address] [place] [address] Phone [phone] Care Team Providers Care Information Technology Officer Name Role Phone Dgulas Mayo MD Primary Care Provider [phone] Reason for Visit * Reason Onset Date Comments Medication Question 03/20/2023 Encounter Details Date Type Department Care Team (Late st Contact Info) Description 03/20/2023 Telephone [facility] [address] [place] [address] AugustMarkell MD [address] [place] [address] Medication Question Allergies Active Allergy Reactions Criticality Noted Date Comments Methylprednisolone Sodium Succ 12/06 Dog Dander Low 03/20/2019 Other reaction(s): Sneezing Food (See Comments) 02/23/2018 Duck eggs Swelling Pollen 08/25/2015 Nystatin 01/17/2019 Allergic reaction Pollen Extract 03/20/2019 Other reaction(s): HAYFEVER documented as of this encounter (statuses as of 03/21/2023) Medications Medication Sig Dispensed Refills Start Date [...] nebulize medicaitons 1 Kit 1 3 Active traMADol HCl 50 MG Oral Tablet (Ultram)Indications :Bilateral primary osteoarthritis of knee Take 1 Tablet by mouth every 6 hours as needed for Pain, Moderate. 30 Tablet 0 3 Active Additional Information Patient taking differently:50 mg [id number] PRN, Pain, Moderate, Reported on 09/16/2022 Metoprolol [...] 22 g 1 3 03/28/20 23 Active Pantoprazole Sodium 40 MG Oral Tablet Delayed Release (Protonix)Indicatio ns:Esophageal reflux Take 1 Tablet by mouth in the morning and 1 Tablet before bedtime. 180 Tablet 1 3 Active Simvastatin 10 MG Oral Tablet (Zocor) TAKE 1 TABLET BY MOUTH EVERYDAY AT BEDTIME 90 Tablet 1 3 Active Amiodarone HCl 200 MG Oral Tablet (Cordarone)Indicati ons:Paroxysmal atrial fibrillation (HCC) Take 1 Tablet by mouth in the morning. 90 Tablet 3 3 Active Amiodarone HCl 200 MG Oral Tablet (Cordarone)Indicati ons:Paroxysmal atrial fibrillation (HCC) TAKE 1 TABLET BY MOUTH EVERY DAY 90 Tablet 3 2 03/20/20 23 Discontinu ed(Refill) Topiramate 25 MG Oral Tablet (topAMAX)Indication s:Chronic daily headache 1 tab by mouth three times a day 270 Tablet 1 2 03/20/20 23 Discontinu ed(Refill) Floranex Oral Tablet Take 2 Each by mouth in the morning and 2 Each before bedtime. 0 03/20/20 23 Discontinu ed(Refill) documented as of this encounter (statuses as of 03/21/2023) Active Problems Problem Noted Date Diagnosed Date [...] as of this encounter (statuses as of 03/21/2023) Resolved Problems Problem Noted Date Diagnosed Date [...] as of this encounter (statuses as of 03/21/2023) Immunizations Name Administration Dates Next Due Pneumococcal [...] encounter Miscellaneous Notes * Telephone Encounter - Gregor Hills PHARM Tech - 03/20/2023 11:39 AM EST Patient calling to request a refill on Amiodarone 200 mg,. Medication was last prescribed by Cardiology but patient is asking if PCP can take over the medication. Please advise if this is appropriateand send to if agreeable. Thank You, Gregor Hills [facility] Apprentice Painter Hand II [facility] (Formerly Telepharmacy) 03/20/2023, 11:39 AM documented in this encounter Plan of Treatment Upcoming Encounters Date Type Department Care Team (Late st Contact Info) Description 03/22/2023 3:20 PM EST Office Visit [facility] [address] [place] [phone] Markell Linton MD [address] [place] [address] 05/09/2023 1:00 PM EST Office Visit Cardiology, [facility] [address] [place] [address] Nabila Fields CRNP [address] [place] [address] 06/08/2023 11:20 AM EST Office Visit Family [facility] [place] [address] [facility] [place] [phone] Chana Stacy PA-C [address] [place] [address] Health Maintenance Due Date Last Done Comments COVID-19 Vaccine (#1) 03/12/1951 Alpha-1 Antitrypsin 1966 Mammogram 1988 Cologuard 1993 Fecal Occult Blood Test 1993 Sigmoidoscopy 1993 Zoster Vaccines (1 of 2) 1998 Pneumococcal Vaccine: 65+ Years (3 - PPSV23 or PCV20) 07/02/2018 11/25/2016, 07/02/2013 *ADVANCE DIRECTIVE NOT ON FILE 10/06/2018 Depression Screening 12/07/2020 12/08/2019 DXA Scan 06/06/2021 06/06/2014 CKD PHOS USE SMARTSET 08530 11/17/2021 11/17/2020 Influenza Vaccine (FLU shot) (#1) 2022 03/12/2013 Albumin/Creatinine Ratio 01/14/2023 01/14/2022 DTaP,Tdap,and Td Vaccines (2 - Td or Tdap) 07/03/2023 07/02/2013 GFR 09/06/2023 03/08/2023, 05/2 06/2022, 04/26/2022, Additional history exists CKD HGB USE SMARTSET 33437 03/08/202403/08, 09/13/2022, 04/26/2022, Additional history exists O2 [...] encounter Visit Diagnoses Diagnosis Paroxysmal atrial fibrillation (HCC) Atrial fibrillation documented in this encounter Advance Directives Latest [...] Other - (no specific identity) Power of Supervisor Engraving Pino Rolando Other - (no specific identity) Power of Supervisor Engraving Pari Sullivan Other - (no specific identity) Power of Supervisor Engraving Care Teams Information Technology Officer Relationship Specialty Start Date End Date Duglas aMyo MD [address] [place] [address] PCP - General Family Medicine 09/05/22 documented as of this encounter
--- OUTSIDE RECORDS SUMMARY | 2023-07-16 14:48 | External Medical Summary | Summary of Care ---
Author Name Unknown Organization [facility] Address [address] [place] [address] Phone [phone] Care Team Providers Care Mortgage Collector Name Role Phone Duglas Mayo MD Primary Care Provider [phone] Reason for Visit * Reason Onset Date Comments Medication Refill 03/20/2023 Encounter Details Date Type Department Care Team (Late st Contact Info) Description 03/20/2023 Refill [facility] [address] [place] [address] AugustEleuterio MD [address] [place] [address] Chronic daily headache Allergies Active Allergy Reactions Criticality Noted Date [...] C, by GOLD 2017 classification ([facility]) Inhale via nebulizer . Use as directed. 1 Each 1 2 Active Pulse Oximeter Deluxe Use as directed . 1 Each 1 2 Active Albuterol Sulfate HFA 108 (90 Base) MCG/ACT Inhalation Aerosol SolutionIndications :COPD, group C, by GOLD 2017 classification ([facility]),Asthma with irreversible airway obstruction, unspecified asthma severity, uncomplicated ([facility]) INHALE 2 PUFFS BY MOUTH EVERY 6 HOURS NEEDED FOR WHEEZING 54 g 1 3 Active Nebulizer/Tubing/Mo uthpiece KitIndications:COPD , group C, by GOLD 2017 classification ([facility]) Use to nebulize medicaitons 1 Kit 1 3 Active traMADol HCl 50 MG Oral Tablet (Ultram)Indications :Bilateral primary osteoarthritis of knee Take 1 Tablet by mouth every 6 hours as needed for Pain, Moderate. 30 Tablet 0 3 Active Additional Information Patient taking differently:50 mg [id number] PRN, Pain, Moderate, Reported on 09/16/2022 Metoprolol [...] AT BEDTIME 90 Tablet 1 3 Active Topiramate 25 MG Oral Tablet (topAMAX)Indication s:Chronic daily headache 1 tab by mouth three times a day 270 Tablet 1 2 03/20/20 23 Discontinu ed(Refill) documented as of [...] Telephone Encounter - Eleuterio Lopez MD - 03/21/2023 9:38 AM ESTSigned Prescriptions: Disp Refills Topiramate 25 MG Oral Tablet (topAMAX) 270 Ta*3 Si tab by mouth three times a dayAuthorizing Provider: ELEUTERIO LOPEZ * Telephone Encounter - Sabrina Pacheco LPN - 03/20/2023 1:54 PM ESTPending Prescriptions: Disp Refills Topiramate 25 MG Oral Tablet (topAMAX) 270 Ta*1 Si tab by mouth three times a day * Telephone Encounter - Gregor Hills, public relations - 03/20/2023 11:43 AM EST Pt is out of medication. Needs refills until appt. Did you pend patient's preferred pharmacy and medication before forwarding?yes Pharmacy: [id number] [facility] Pending Prescriptions: Disp Refills Topiramate 25 MG Oral Tablet (topAMAX) 270 Ta*1 Si tab by mouth three times a day Last Visit: 03/08/2023 (in office), 04/21/2022 (telemedicine) Next Visit: 03/22/2023 If no future appointments scheduled, and last appointment is greater than a year ago, please schedule patient for a follow-up appointment Last date the medication was ordered: 01/24/2022 Is this request for a controlled substance?No [...] Description 03/22/2023 3:20 PM EST Office [facility] [address] [facility] [phone] Eleuterio Lopez MD [address] [facility] [address] 05/09/2023 1:00 PM EST Office Visit Cardiology, [facility] [address] [place] [address] Nabila Fields CRNP [address] [place] [address] 06/08/2023 11:20 AM EST Office Visit Family [facility] [place] [address] [place] [phone] Chana Stacy PA-C [address] [place] [address] Health Maintenance Due Date Last Done Comments COVID-19 Vaccine (#1) 03/12/1951 Alpha-1 Antitrypsin 1966 Mammogram 1988 Cologuard 1993 Fecal Occult Blood Test 1993 Sigmoidoscopy 1993 Zoster Vaccines (1 of 2) 1998 Pneumococcal Vaccine: 65+ Years (3 - PPSV23 or PCV20) 07/02/2018 11/25/2016, 07/02/2013 *ADVANCE DIRECTIVE NOT ON FILE 10/06/2018 Depression Screening 12/07/2020 12/08/2019 DXA Scan 06/06/2021 06/06/2014 CKD PHOS USE SMARTSET 83413 11/17/2021 11/17/2020 Influenza Vaccine (FLU shot) (#1) 2022 03/12/2013 Albumin/Creatinine Ratio 01/14/2023 01/14/2022 DTaP,Tdap,and Td Vaccines (2 - Td or Tdap) 07/03/2023 07/02/2013 GFR 09/06/2023 03/08/2023, 08/23, 04/26/2022, Additional history exists CKD HGB USE SMARTSET 66357 03/08/202403/08, 09/13/2022, 04/26/2022, Additional history exists O2 [...] this encounter Visit Diagnoses Diagnosis Chronic daily headache Headache documented in this encounter Advance Directives Latest [...] Other - (no specific identity) Power of Television Analyzer Pino Marshall Other - (no specific identity) Power of Television Analyzer Pari Sullivan Other - (no specific identity) Power of Television Analyzer Care Teams Mortgage Collector Relationship Specialty Start Date End Date Duglas Mayo MD [address] [place] [address] PCP - General Family Medicine 09/05/22 documented as of this encounter
--- OUTSIDE RECORDS SUMMARY | 2023-07-16 14:48 | External Medical Summary | Summary of Care ---
Author Name Unknown Organization [facility] Address [address] [place] [address] Phone [phone] Care Team Providers Care Chemistry Technologist Name Role Phone Duglas Mayo MD Primary Care Provider [phone] Reason for Visit * Reason Onset Date Comments Hospital Follow-Up Needs her las ix pill along with vitamin c and iron pill Hospital Follow-Up 03/08/2023 Encounter Details Date Type Department Care Team (Latest Contact Info) Description 03/08/2023 10:00 AM EST Office Visit [facility] [address] [place] [address] August, Markell Heller MD [address] [place] [address] Hospital discharge follow-up*; Acute congestive heart failure, unspecified heart failure type ([facility]); PAULETTE (acute kidney injury) ([facility]); Macrocytic anemia; Dyslipidemia; Hypothyroidism, unspecified type; COPD, group C, by GOLD 2017 classification ([facility]); Nonrheumatic aortic valve stenosis; S/P TAVR (transcatheter aortic valve replacement); Paroxysmal atrial fibrillation ([facility]); Morbid obesity ([facility]) Allergies Active Allergy Reactions Criticality Noted Date [...] by mouth daily. 90 Tab 1 11/14/19 20 Active Ipratropium-Albute rol 0.5-2.5 (3) MG/3ML Inhalation Solution (Duoneb) INHALE 1 VIAL EVERY 4 TO 6 HOURS NEEDED FOR WHEEZING 360 mL 2 07/18/19 22 Active Additional Information Patient not taking.Reported on [...] SKIN 30 g 1 03/03/20 22 Active Additional Information Patient not taking.Reported on 12/21/2022 Compressor NebulizerIndicatio ns:COPD, group C, by GOLD 2017 classification ([facility]) Inhale via nebulizer . Use as directed. 1 Each 1 04/21/20 22 Active Pulse Oximeter Deluxe Use as directed . 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 30 Tablet 0 06/06/19 Active Additional Information Patient taking differently:50 mg [id number] PRN, Pain, Moderate, Reported on 09/16/2022 Metoprolol [...] HFA 110 MCG/ACT Inhalation Aerosol 0 02/09/20 Active Furosemide 20 MG Oral Tablet (Lasix)Indications :Acute congestive heart failure, unspecified heart failure type (HCC),PAULETTE (acute kidney injury) (HCC) TAKE 2 TABLETS BY MOUTH EVERY MORNING 180 Tablet 1 03/08/20 23 Active Ferrous Sulfate 325 (65 Fe) MG Oral Tablet (Feosol)Indication s:Macrocytic anemia TAKE 1 TABLET BY MOUTH EVERY DAY AT 12 90 Tablet 3 03/08/20 23 Active Amiodarone HCl 200 MG Oral Tablet [...] Tablet 3 04/29/19 23 023 Discontinued(Re fill) Pantoprazole Sodium 40 MG Oral Tablet Delayed Release (Protonix)Indicati ons:Esophageal reflux Take 1 Tablet by mouth in the morning and 1 Tablet before bedtime. 180 Tablet 1 05/25/19 23 023 Discontinued(Re fill) Furosemide 20 MG Oral Tablet (Lasix)Indications :Acute congestive heart failure (HCC),PAULETTE (acute kidney injury) (HCC) TAKE 2 [...] Sign Reading Time Taken Comments Blood Pressure 122/60 03/08/2023 8:53 AM EST Pulse 81 03/08/2023 8:53 AM EST Temperature 36.2 C (97.1 F) 03/08/2023 8:53 AM ES T Respiratory Rate 18 03/08/2023 8:53 AM EST Oxygen Saturation 96% 03/08/2023 8:53 AM EST Inhaled Oxygen Concentration - - Weight - - Height - - Body Mass Index - - documented in [...] as of this encounter Progress Notes * Markell Linton MD - 03/08/2023 9:02 AM EST Images from the original note were not included. Assessment and Plan 1. Acute congestive heart failure (HCC) Euvolemic on exam. - Furosemide 20 MG Oral Tablet (Lasix); TAKE 2 TABLETS BY MOUTH EVERY MORNING Dispense: 180 Tablet;Refill: 1 2. PAULETTE (acute kidney injury) ([facility]) Baseline Cr appears 1.5. Repeat testing today. - Furosemide 20 MG Oral Tablet (Lasix); TAKE 2 TABLETS BY MOUTH EVERY MORNING Dispense: 180 Tablet;Refill: 1 - COMPREHENSIVE METABOLIC PANEL; Future 3. Macrocytic anemia Restart iron supplementation. CBC to monitor blood count. - Ferrous Sulfate 325 (65 Fe) MG Oral Tablet (Feosol); TAKE 1 TABLET BY MOUTH EVERY DAY AT 12 Dispense: 90 Tablet; Refill: 3 - CBC; Future 4. Dyslipidemia Continue statin. 5. Hypothyroidism, unspecified type Continue levothyroxine 50 mcg daily. Check TSH. - TSH WITH FREE T4 IF INDICATED; Future 6. COPD, group C, by GOLD 2017 classification ([facility]) Stable respiratory status. No longer on oxygen. 7. Nonrheumatic aortic valve stenosis S/p TAVR. 8. S/P TAVR (transcatheter aortic valve replacement) 9. Paroxysmal atrial fibrillation ([facility]) Amiodarone and metoprolol. Not on anticoagulation due to history of GI bleed. 10. Morbid obesity ([facility]) 11. Hospital discharge follow-up - DISCH MED RECON CUR MED LIS Addendum 03/14/2023: Patient with sacral ulcer and requires being upright in bed to sleep due to COPD. Limited mobility. Recommend hospital bed at home to improve respiratory status and reduce the risk of worsening sacral ulcers. She will require 90 degree angle and frequent repositioning. Wrap-Up Follow up in 3 months with Chana per patient preference. History of Present Illness The patient is a 72-year-old female with past medical history of dyslipidemia, COPD group C by [id number] classification, aortic stenosis, paroxysmal atrial fibrillation, morbid obesity, GERD, CKD stage IIIB, tobacco use who presents for hospital follow up. The patient was admitted to [facility] from 08/18/2022 through 09/02/2022. She was transferred from [facility]. Patient was initially evaluated for sepsis with an unclear source. She was hypotensive and requiredpressors. She was found to be in septic shock secondary to MRSA pneumonia and MRSA bacteremia. She was also found to be positive for parainfluenza virus. She was treated with vancomycin and cefepime.Given history of TAVR and bacteremia and patient has poor functional status limiting availability to get JAY patient was recommended by ID to be treated empirically for endocarditis. She completed vancomycin, gentamicin, rifampin antibiotics through mid September 2022. Her other medical conditions include paroxysmal atrial fibrillation on metoprolol and amiodarone. She was not anticoagulated due to history of GI bleeding. She has hypothyroidism on Synthroid. She was migraines on topiramate. She has sacral wounds for which she received wound care. She was osteoarthritis for which she received Tylenol and as needed tramadol for an arthritis flare of the knee. At time of discharge she was sent to [facility] for rehab. She was originally you from 09/02/2022 through 03/07/2023. Today she reports she overall feels well. She does have chronic right shoulder pain but otherwise has no complaints. Her main concern is doing med rec and making sure she was all of her medications at home given she is been away from home for 6+ months. We reviewed her medication list. She is in need of Lasix that she was takes 20 mg daily and ferrous sulfate which she takes once daily. We will get lab work to monitor her renal functionand a TSH to look at her thyroid function. She is now taking levothyroxine 50 mcg daily rather than25 mcg daily, however, I do not see documentation of any abnormal thyroid function tests. Office staff confirmed home health is set up that will include both physical therapy and occupational therapy along with home health nursing. The patient will be living with a sister moving forward. She previously was residing in a nursing facility. Physical Exam Vitals: 03/08/23 0853 Temp: 36.2 C (97.1 F) Pulse: 81 Resp: 18 SpO2: 96% BP: 122/60 Physical Exam Physical Exam Vitals reviewed. Constitutional: General: She is not in acute distress. Appearance: She is obese. Comments: Using wheelchair for mobility. Cardiovascular: Rate and Rhythm: Normal rate and regular rhythm. Heart sounds: No murmur heard. Pulmonary: Effort: Pulmonary effort is normal. No respiratory distress. Breath sounds: Normal breath sounds. No wheezing. Musculoskeletal: Cervical back: Neck supple. Right lower leg: No edema. Left lower leg: No edema. Lymphadenopathy: Cervical: No cervical adenopathy. Skin: General: Skin is warm and dry. Neurological: General: No focal deficit present. Mental Status: She is alert. Time: I spent a total of 40-54 minutes (exact time 42 mins) on the date of service in preparation, delivery, and documentation of the care provided to the patient excluding any time spent in the performance of separately billed services. documented in this encounter Nursing Notes * Tania Aguayo LPN - 03/08/2023 9:03 AM EST The patient has been properly identified by confirmation of name and date of . Chief Complaint Patient presents with Hospital Follow-Up Needs her lasix pill along with vitamin c and iron pill documented in this encounter Plan of Treatment Upcoming Encounters Date Type Department Care Team (Late st Contact Info) Description 03/22/2023 3:20 PM EST [facility] [address] [facility] [phone] Markell Linton MD [address] [facility] [place] [address] 05/09/2023 1:00 PM EST Office Visit Cardiology, [address] [place] [phone] Nabila Fields CRNP [address] [place] [address] 06/08/2023 11:20 AM EST Office Visit [facility] [place] [address] [facility] [phone] Chana Stacy PA-C [address] [place] [address] Health Maintenance Due Date Last Done Comments COVID-19 Vaccine (#1) 03/12/1951 Alpha-1 Antitrypsin 1966 Mammogram 1988 Cologuard 1993 Fecal Occult Blood Test 1993 Sigmoidoscopy 1993 Zoster Vaccines (1 of 2) 1998 Pneumococcal Vaccine: 65+ Years (3 - PPSV23 or PCV20) 07/02/2018 11/25/2016, 07/02/2013 *ADVANCE DIRECTIVE NOT ON FILE 10/06/2018 Depression Screening 12/07/2020 12/08/2019 DXA Scan 06/06/2021 06/06/2014 CKD PHOS USE SMARTSET 68928 11/17/2021 11/17/2020 Influenza Vaccine (FLU shot) (#1) 2022 03/12/2013 Albumin/Creatinine Ratio 01/14/2023 01/14/2022 DTaP,Tdap,and Td Vaccines (2 - Td or Tdap) 07/03/2023 07/02/2013 GFR 09/06/2023 03/08/2023, 0506/2022, 04/26/2022, Additional history exists CKD HGB USE SMARTSET 45098 03/08/202403/08, 09/13/2022, 04/26/2022, Additional history exists O2 ASSESSMENT COMPLETED IN PAST YEAR FOR COPD 03/08/2024 03/08/2023 TSH 03/08/2024 03/08/2023, 07/0 10/2020, 05/09/2019, Additional history exists Lipid Panel 04/26/2027 04/26/2022, 0710/2020, 11/25/2016, Additional history exists Colonoscopy 07/18/2028 07/18/2018 [...] Not on filedocumented as of this encounter Results * (ABNORMAL) CBC (03/08/2023 9:47 AM EST) WBC 10.88(H) 4.00 - 10.80 K/uL 03/08/2023 4:55 PM EST [facility] RBC 3.43 3.85 - 5.15 M/uL 03/08/2023 4:55 PM EST [facility] HGB 11.0(L) 12.0 - 15.3 g/dL 03/08/2023 4:55 PM EST [facility] HCT 37.3 36.0 - 45.2 % 03/08/2023 4:55 PM EST [facility] MCV 108.7 81.5 - 97.5 fL 03/08/2023 4:55 PM EST [facility] MCH 32.1 27.0 - 34.0 pg 03/08/2023 4:55 PM EST [facility] MCHC 29.5 32.0 - 36.0 g/dL 03/08/2023 4:55 PM EST [facility] RDW 17.4 11.5 - 15.5 % 03/08/2023 4:55 PM EST [facility] PLT 245 140 - 400 K/uL 03/08/2023 4:55 PM EST [facility] MPV 12.1 6.6 - 11.1 fL 03/08/2023 4:55 PM EST [facility] nRBCs 0 <=0 /100 WBCs 03/08/2023 4:55 PM EST [facility] Blood Venous blood specimen / Unknown Venipuncture / Unknown 03/08/2023 9:47 AM EST 03/08/2023 9:52 AM EST Markell Arron May MD LAB BLOOD ORDERABLES [facility] [address] [place] [address] * (ABNORMAL) COMPREHENSIVE METABOLIC PANEL (03/08/2023 9:47 AM EST) BUN 17 6 - 20 mg/dL 03/08/2023 5:57 PM EST [facility] Creatinine 1.9(H) 0.5 - 1.0 mg/dL 03/08/2023 5:57 PM EST [facility] Estimated Glomerular Filtration Rate 27(L) >=60 mL/min 03/08/2023 5:57 PM EST [facility] Comment:eGFR is calculated b ased on the CKD-EPI 2020 equation Sodium 142 135 - 146 mmol/L 03/08/2023 5:57 PM EST [facility] Potassium 4.8 3.5 - 5.1 mmol/L 03/08/2023 5:57 PM EST [facility] Chloride 110(H) 98 - 107 mmol/L 03/08/2023 5:57 PM EST [facility] CO2 21(L) 22 - 32 mmol/L 03/08/2023 5:57 PM EST [facility] Anion Gap 11 7 - 15 mmol/L 03/08/2023 5:57 PM EST [facility] Glucose 115 70 - 120 mg/dL 03/08/2023 5:57 PM EST [facility] Albumin 4.1 3.8 - 5.0 g/dL 03/08/2023 5:57 PM EST [facility] AST 20 10 - 35 U/L 03/08/2023 5:57 PM EST [facility] Alkaline Phosphatase 124 35 - 130 U/L 03/08/2023 5:57 PM EST [facility] Bilirubin, Total 0.3 <=1.2 mg/dL 03/08/2023 5:57 PM EST [facility] Calcium 9.6 8.4 - 10.2 mg/dL 03/08/2023 5:57 PM EST [facility] Protein 7.0 6.0 - 8.3 g/dL 03/08/2023 5:57 PM EST [facility] ALT 10 10 - 35 U/L 03/08/2023 5:57 PM EST [facility] Blood Venous blood specimen / Unknown Venipuncture / Unknown 03/08/2023 9:47 AM EST 03/08/2023 9:52 AM EST Markell Linton MD LAB BLOOD ORDERABLES [facility] [address] [place] [address] documented in this encounter Visit Diagnoses Diagnosis Hospital discharge follow-up- Primary Other follow-up examination Acute congestive heart failure, unspecified heart failure type (HCC) PAULETTE (acute kidney injury) (HCC) Acute kidney failure, unspecified Macrocytic anemia Unspecified deficiency anemia Dyslipidemia Other and unspecified hyperlipidemia Hypothyroidism, unspecified type COPD, group C, by GOLD 2017 classification (HCC) Nonrheumatic aortic valve stenosis Aortic valve disorders S/P TAVR (transcatheter aortic valve replacement) Heart valve replaced by other means Paroxysmal atrial fibrillation (HCC) Atrial fibrillation Morbid obesity (HCC) Morbid obesity documented in this encounter Advance Directives Latest [...] Other - (no specific identity) Power of Sound Art Instructor Pino Rolando Other - (no specific identity) Power of Sound Art Instructor Pari Sullivan Other - (no specific identity) Power of Sound Art Instructor Care Teams Chemistry Technologist Relationship Specialty Start Date End Date Duglas Mayo MD [address] [place] [address] PCP - General Family Medicine 09/05/22 documented as of this encounter
--- OUTSIDE RECORDS SUMMARY | 2023-07-16 14:48 | External Medical Summary | Summary of Care ---
Author Name Unknown Organization [facility] Address [address] [place] [address] Phone [phone] Care Team Providers Care Dinkey Operator Slag Name Role Phone Duglas Mayo MD Primary Care Provider + [phone] Reason for Visit * Reason Onset Date Comments Order Request 03/14/2023 Encounter Details Date Type Department Care Team (Late st Contact Info) Description 03/14/2023 Telephone [facility] [address] [place] [address] AugustEleuterio MD [address] [place] [address] Order Request Allergies Active Allergy Reactions Criticality Noted Date Comments Methylprednisolone Sodium Succ 12/06 Dog Dander Low 03/20/2019 Other reaction(s): Sneezing Food (See Comments) 02/23/2018 Duck eggs Swelling Pollen 08/25/2015 Nystatin 01/17/2019 Allergic reaction Pollen Extract 03/20/2019 Other reaction(s): HAYFEVER documented as of this encounter (statuses as of 03/20/2023) Medications Medication Sig Dispensed Refills Start Date [...] Additional Information Patient not taking.Reported on 12/21/2022 Amiodarone HCl 200 MG Oral Tablet (Cordarone)Indicati ons:Paroxysmal atrial fibrillation (HCC) TAKE 1 TABLET BY MOUTH EVERY DAY 90 Tablet 3 2 Active Ammonium Lactate 12 % External Lotion (Amlactin Daily)Indications:V enous stasis dermatitis of both lower extremities Apply topically to affected area as needed for Dry Skin. Apply to legs daily before putting socks on or at bedtime 400 g 0 2 Active Additional Information Patient not taking.Reported on 09/16/2022 Topiramate 25 MG Oral Tablet (topAMAX)Indication s:Chronic daily headache 1 tab by mouth three times a day 270 Tablet 1 2 Active Additional Information Patient taking differently: 25 mg Oral BID (.AM/PM), 1 tab by mouth three times a day, Reported on 09/16/2022 Ketoconazole 2 % External Cream APPLY TOPICALLY TO AFFECTED AREA 2 TIMES A DAY FOR 14 DAYS. APPLY TO AFFECTED AREA AFTER DRYING SKIN 30 g 1 2 Active Additional Information Patient not taking.Reported on 12/21/2022 Compressor NebulizerIndication s:COPD, group C, by GOLD 2017 classification ([facility]) Inhale via nebulizer . Use as directed. 1 Each 1 2 Active Pulse Oximeter Deluxe Use as directed . 1 Each 1 2 Active Clopidogrel Bisulfate 75 MG Oral Tablet (pLAVix)Indications :Congestive heart failure due to valvular disease TAKE 1 TABLET BY MOUTH EVERY DAY IN THE MORNING 90 Tablet 3 3 Active Albuterol Sulfate HFA 108 (90 Base) MCG/ACT Inhalation Aerosol SolutionIndications :COPD, group C, by GOLD 2017 classification ([facility]),Asthma with irreversible airway obstruction, unspecified asthma severity, uncomplicated ([facility]) INHALE 2 PUFFS BY MOUTH EVERY 6 HOURS NEEDED FOR WHEEZING 54 g 1 3 Active Nebulizer/Tubing/Mo uthpiece KitIndications:COPD , group C, by GOLD 2017 classification ([facility]) Use to nebulize medicaitons 1 Kit 1 3 Active traMADol HCl 50 MG Oral Tablet (Ultram)Indications :Bilateral primary osteoarthritis of knee Take 1 Tablet by mouth every 6 hours as needed for Pain, Moderate. 30 Tablet 0 3 Active Additional Information Patient taking differently:50 mg [id number] PRN, Pain, Moderate, Reported on 09/16/2022 Levothyroxine Sodium 25 MCG Oral Tablet (Levoxyl)Indication s:Acquired hypothyroidism TAKE 1 TAB BY MOUTH DAILY FIRST THING IN THE AM AT LEAST 30 MIN PRIOR TO BREAKFAST OR OTHER MEDS 90 Tablet 0 3 Active Additional Information Patient not taking.Reported on 03/08/2023 Metoprolol Succinate ER 25 MG Oral Tablet Extended Release 24 Hour (toPROL XL) TAKE 1 TABLET BY MOUTH EVERY DAY IN THE MORNING 90 Tablet 2 3 Active Additional Information Patient taking differently: Take 1/2 tab daily, Reported on 12/21/2022 Diclofenac Sodium 1 % External Gel Apply topically to affected area 4 times a day as needed. 0 Active Floranex Oral Tablet Take 2 Each by mouth in the morning and 2 Each before bedtime. 0 Active Fluconazole 200 MG Oral Tablet [...] 110 MCG/ACT Inhalation Aerosol 0 3 Active Levothyroxine Sodium 50 MCG Oral Tablet (Levoxyl) 0 3 Active Furosemide 20 MG Oral [...] Tablet before bedtime. 180 Tablet 1 3 03/20/20 23 Discontinu ed(Refill) Simvastatin 10 MG Oral Tablet (Zocor) TAKE 1 TABLET BY MOUTH EVERYDAY AT BEDTIME 90 Tablet 1 3 03/20/20 23 Discontinu ed(Refill) documented as of this encounter (statuses as of 03/20/2023) Active Problems Problem Noted Date Diagnosed Date [...] as of this encounter (statuses as of 03/20/2023) Resolved Problems Problem Noted Date Diagnosed Date [...] as of this encounter (statuses as of 03/20/2023) Immunizations Name Administration Dates Next Due Pneumococcal [...] as of this encounter Miscellaneous Notes * Addendum Note - Eleuterio Lopez MD - 03/20/2023 5:29 PM ESTAddended by: ELEUTERIO LOPEZ on: 03/20/2023 05:29 PM Modules accepted: Orders * Telephone Encounter - Eleuterio Lopez MD - 03/20/2023 5:28 PM EST DME order placed with specific wording. Can we please fax as below. Oscar, Eleuterio Lopez MD * Telephone Encounter - Carole Duenas MED ASSIST - 03/20/2023 3:22 PM EST Can the DME be changed? * Telephone Encounter - Chana Grubbs OSA - 03/20/2023 3:12 PM EST Pt's sister, Theresa, calling. She spoke w/ [employer] (pt's insurance) and was advised that pt is eligible for a semi-electric medical bed. The order MUST have that specific wording, or they will not cover it. [employer] advised Theresa that the order can be sent to [facility]. Their fax number is [phone]. [facility] call Theresa once this has been done, so she can f/u w/ [facility]. Thx. * Telephone Encounter - Carole Duenas MED ASSIST - 03/20/2023 11:23 AM EST Faxed to [facility] * Telephone Encounter - Isrrael Hay OSA - 03/20/2023 10:49 AM EST Caller requesting the following information to be faxed: Name/Company of caller: Theresa Information requested to be faxed: order for hospital bed Fax number: not given Attention to Name/Company: [facility] [place] Any additional information?: Theresa calling in stating that [facility] does not participate with [employer].Please advise regarding whether they participate with [employer]. * Telephone Encounter - Carole Duenas MED ASSIST - 03/15/2023 3:08 PM EST Faxed to [facility]. * Telephone Encounter - Yashira Fernandes OSA - 03/15/2023 11:11 AM EST [facility] does not accept [employer]. Please send to [facility] or [facility] instead. * Telephone Encounter - Tania Aguayo LPN - 03/15/2023 8:22 AM EST Sent to [facility] * Telephone Encounter - Eleuterio Lopez MD - 03/14/2023 6:50 PM EST DME order for hospital bed placed. Note from 03/08/2023 addended to include limited mobility, COPD,and sacral ulcers as reasons patient needs hospital bed. Can we please fax DME order as appropriatefor [employer]. Thanks, Eleuterio Lopez MD * Telephone Encounter - Tania Aguayo LPN - 03/14/2023 1:33 PM EST Please Advise * Telephone Encounter - Isrrael Hay OSA - 03/14/2023 1:11 PM EST An order was requested for this patient. Name of Requesting Provider: Theresa Order Requested: hospital bed Diagnosis/Reason for Request: pt needs to elevate her head when sleeping due to her breathing If order request is for Mammogram: Is the patient having any breast symptoms? N/A Is there a chance of ? N/A Has the patient had any breast problems in the past? NA What location AND department does the patient wish to have their order completed at? [facility] Fax Number, if applicable: not given Call Back Number: [phone] Call dropped before the end of the call. I attempted to call Theresa back, but the call went to . If the caller is not a current patient, please advise the patient to call their current PCP to havethe order's prior to being seen in our office. The patient was informed that our providers would not order anything (medication, labs, etc.) prior to being seen. documented in this encounter Plan of Treatment Upcoming Encounters Date Type Department Care Team (Late st Contact Info) Description 03/22/2023 3:20 PM EST Office Visit [facility] [address] [facility] [place] [phone] AugustEleuterio MD [address] [facility] [place] [address] 05/09/2023 1:00 PM EST Office Visit Cardiology, [facility] [address] [facility] [place] [address] Nabila Fields CRNP [address] [place] [address] 06/08/2023 11:20 AM EST Office Visit [facility] [address] [facility] [phone] Chana Stacy PA-C [address] [place] [facility] [place] [address] Health Maintenance Due Date Last Done Comments COVID-19 Vaccine (#1) 03/12/1951 Alpha-1 Antitrypsin 1966 Mammogram 1988 Cologuard 1993 Fecal Occult Blood Test 1993 Sigmoidoscopy 1993 Zoster Vaccines (1 of 2) 1998 Pneumococcal Vaccine: 65+ Years (3 - PPSV23 or PCV20) 07/02/2018 11/25/2016, 07/02/2013 *ADVANCE DIRECTIVE NOT ON FILE 10/06/2018 Depression Screening 12/07/2020 12/08/2019 DXA Scan 06/06/2021 06/06/2014 CKD PHOS USE SMARTSET 59737 11/17/2021 11/17/2020 Influenza Vaccine (FLU shot) (#1) 2022 03/12/2013 Albumin/Creatinine Ratio 01/14/2023 01/14/2022 DTaP,Tdap,and Td Vaccines (2 - Td or Tdap) 07/03/2023 07/02/2013 GFR 09/06/2023 03/08/2023, 05/2 06/2022, 04/26/2022, Additional history exists CKD HGB USE SMARTSET 54477 03/08/202403/08, 09/13/2022, 04/26/2022, Additional history exists O2 [...] as of this encounter Visit Diagnoses Diagnosis Decubitus ulcer of ischial area, unspecified laterality, unspecified ulcer stage- Primary COPD, group C, by GOLD 2017 classification (HCC) Congestive heart failure due to valvular disease Congestive heart failure, unspecified documented in this encounter Advance Directives Latest [...] Other - (no specific identity) Power of Brush Clearing Laborer Pino Marshall Other - (no specific identity) Power of Brush Clearing Laborer Pari Sullivan Other - (no specific identity) Power of Brush Clearing Laborer Care Teams Dinkey Operator Slag Relationship Specialty Start Date End Date Duglas Mayo MD [address] [place] [address] PCP - General Family Medicine 09/05/22 documented as of this encounter
--- OUTSIDE RECORDS SUMMARY | 2023-07-16 14:48 | External Medical Summary | Summary of Care ---
Author Name Unknown Organization [facility] Address [address] [place] [address] Phone [phone] Care Team Providers Care Editor Producer Name Role Phone Duglas Mayo MD Primary Care Provider [phone] Reason for Visit * Reason Onset Date Comments Medication Refill 03/20/2023 Encounter Details Date Type Department Care Team (Late st Contact Info) Description 03/20/2023 Refill [facility] [address] [place] [address] AugustMarkell MD [address] [place] [address] Congestive heart failure due to valvular disease Allergies Active Allergy Reactions Criticality Noted Date [...] Active Additional Information Patient taking differently:50 mg [id number] PRN, Pain, Moderate, Reported on 09/16/2022 Levothyroxine [...] AT BEDTIME 90 Tablet 1 3 Active Clopidogrel Bisulfate 75 MG Oral Tablet (pLAVix)Indications :Congestive heart failure due to valvular disease TAKE 1 TABLET BY MOUTH EVERY DAY IN THE MORNING 90 Tablet 3 3 03/20/20 23 Discontinu ed(Refill) documented as [...] encounter Miscellaneous Notes * Telephone Encounter - Mehnaz Baker, [facility] - 03/21/2023 8:18 AM ESTSigned Prescriptions: Disp Refills Clopidogrel Bisulfate 75 MG Oral Tablet (p*90 Tab*3 Sig: TAKE 1 TABLET BY MOUTH EVERY DAY IN THE MORNING Authorizing Provider: MARKELL LOPEZ Ordering User: MEHNAZ BAKER * Telephone Encounter - Gregor Hills, rehabilitation services director - 03/20/2023 11:37 AM EST Did you pend patient's preferred pharmacy and medication before forwarding?yes Pharmacy: [id number] Pending Prescriptions: Disp Refills Clopidogrel Bisulfate 75 MG Oral Tablet (*90 Tab*3 Sig: TAKE 1 TABLET BY MOUTH EVERY DAY IN THE MORNING Last Visit: 03/08/2023 (in office), 04/21/2022 (telemedicine) Next Visit: 03/22/2023 If no future appointments scheduled, and last appointment is greater than a year ago, please schedule patient for a follow-up appointment Last date the medication was ordered: 04/29/2022 Is this request for a controlled substance?No [...] Description 03/22/2023 3:20 PM EST Office [facility] [place] [address] [facility] [phone] AugustMarkell MD [address] [place] [facility] [place] [address] 05/09/2023 1:00 PM EST Office Visit Cardiology, [facility] [address] [facility] [place] [address] Nabila Fields CRNP [address] [place] [address] 06/08/2023 11:20 AM EST [facility] [address] [facility] [phone] Chana Stacy PA-C [address] [place], [place] [phone] Health Maintenance Due Date Last Done Comments COVID-19 Vaccine (#1) 03/12/1951 Alpha-1 Antitrypsin 1966 Mammogram 1988 Cologuard 1993 Fecal Occult Blood Test 1993 Sigmoidoscopy 1993 Zoster Vaccines (1 of 2) 1998 Pneumococcal Vaccine: 65+ Years (3 - PPSV23 or PCV20) 07/02/2018 11/25/2016, 07/02/2013 *ADVANCE DIRECTIVE NOT ON FILE 10/06/2018 Depression Screening 12/07/2020 12/08/2019 DXA Scan 06/06/2021 06/06/2014 CKD PHOS USE SMARTSET 72531 11/17/2021 11/17/2020 Influenza Vaccine (FLU shot) (#1) 2022 03/12/2013 Albumin/Creatinine Ratio 01/14/2023 01/14/2022 DTaP,Tdap,and Td Vaccines (2 - Td or Tdap) 07/03/2023 07/02/2013 GFR 09/06/2023 03/08/2023, 08/23, 04/26/2022, Additional history exists CKD HGB USE SMARTSET 47974 03/08/202403/08, 09/13/2022, 04/26/2022, Additional history exists O2 [...] as of this encounter Visit Diagnoses Diagnosis Congestive heart failure due to valvular disease [...] Other - (no specific identity) Power of Railroad Car Checker Pino Marshall Other - (no specific identity) Power of Railroad Car Checker Pari Sullivan Other - (no specific identity) Power of Railroad Car Checker Care Teams Editor Producer Relationship Specialty Start Date End Date Duglas Mayo MD [address] [place] [address] PCP - General Family Medicine 09/05/22 documented as of this encounter
--- OUTSIDE RECORDS SUMMARY | 2023-07-16 14:48 | External Medical Summary | Summary of Care ---
Author Name Unknown Organization [facility] Address [address] [place] [address] Phone [phone] Care Team Providers Care Fishing Worker Name Role Phone Duglas Mayo MD Primary Care Provider + [phone] Reason for Visit * Reason Onset Date Comments Advice 03/21/2023 Encounter Details Date Type Department Care Team (Late st Contact Info) Description 03/21/2023 Telephone [facility] [address] [place] [address] Chana Stacy PA-C [address] [place] [address] Advice Allergies Active Allergy Reactions [...] :COPD, group C, by GOLD 2017 classification ([facility]) Inhale via nebulizer . Use as directed. 1 Each 1 04/21/2022 Active Pulse Oximeter Deluxe Use as directed . 1 Each 1 04/21/2022 Active Albuterol Sulfate HFA 108 (90 Base) MCG/ACT Inhalation Aerosol SolutionIndications: COPD, group C, by GOLD 2017 classification ([facility]),Asthma with irreversible airway obstruction, unspecified asthma severity, uncomplicated ([facility]) INHALE 2 PUFFS BY MOUTH EVERY 6 HOURS NEEDED FOR WHEEZING 54 g 1 05/15/2022 Active Nebulizer/Tubing/Yecenia thpiece KitIndications:COPD, group C, by GOLD 2017 classification ([facility]) Use to nebulize medicaitons 1 Kit 1 05/25/2022 Active traMADol HCl 50 MG Oral Tablet (Ultram)Indications: Bilateral primary osteoarthritis of knee Take 1 Tablet by mouth every 6 hours as needed for Pain, Moderate. 30 Tablet 0 06/06/2022 Active Additional Information Patient taking differently:50 mg [id number] PRN, Pain, Moderate, Reported on 09/16/2022 Metoprolol [...] - 03/21/2023 9:20 AM EST [facility] stating they received an order for a hospital bed, but need further information. They are requiring: Chart notes Rx 90 degree angle and frequent repositioning posted on the note documented in this encounter Plan of Treatment Upcoming Encounters Date Type Department Care Team (Late st Contact Info) Description 03/22/2023 3:20 PM EST [facility] [address] [facility] [phone] August, Markell Heller MD [address] [facility] [place] [phone] 05/09/2023 1:00 PM EST Office Visit [facility] [address] [facility] [address] Nabila Fields CRNP [address] [facility] [place] [address] 06/08/2023 11:20 AM EST [facility] [address] [facility] [phone] Chana Stacy PA-C [address] [place] [facility] [place] [address] Health Maintenance Due Date Last Done Comments COVID-19 Vaccine (#1) 03/12/1951 Alpha-1 Antitrypsin 1966 Mammogram 1988 Cologuard 1993 Fecal Occult Blood Test 1993 Sigmoidoscopy 1993 Zoster Vaccines (1 of 2) 1998 Pneumococcal Vaccine: 65+ Years (3 - PPSV23 or PCV20) 07/02/2018 11/25/2016, 07/02/2013 *ADVANCE DIRECTIVE NOT ON FILE 10/06/2018 Depression Screening 12/07/2020 12/08/2019 DXA Scan 06/06/2021 06/06/2014 CKD PHOS USE SMARTSET 18353 11/17/2021 11/17/2020 Influenza Vaccine (FLU shot) (#1) 2022 03/12/2013 Albumin/Creatinine Ratio 01/14/2023 01/14/2022 DTaP,Tdap,and Td Vaccines (2 - Td or Tdap) 07/03/2023 07/02/2013 GFR 09/06/2023 03/08/2023, 05/2 06/2022, 04/26/2022, Additional history exists CKD HGB USE SMARTSET 34303 03/08/202403/08, 09/13/2022, 04/26/2022, Additional history exists O2 [...] Other - (no specific identity) Power of Setter Juice Packaging Machines Pino Marshall Other - (no specific identity) Power of Setter Juice Packaging Machines Pari Sullivan Other - (no specific identity) Power of Setter Juice Packaging Machines Care Teams Fishing Worker Relationship Specialty Start Date End Date Duglas Mayo MD [address] [place] [address] PCP - General Family Medicine 09/05/22 documented as of this encounter
--- OUTSIDE RECORDS SUMMARY | 2023-07-16 14:48 | External Medical Summary | Summary of Care ---
Author Name Unknown Organization [facility] Address [address] [place] [address] Phone [phone] Care Team Providers Care Chemist Internship Name Role Phone Duglas Mayo MD Primary Care Provider + [phone] Reason for Visit * Reason Onset Date Comments Advice 03/21/2023 Encounter Details Date Type Department Care Team (Late st Contact Info) Description 03/21/[address] [facility] [address] [place] [address] Chana Stacy PA-C [address] [place] [address] Advice Allergies Active Allergy Reactions [...] Active Additional Information Patient taking differently:50 mg [id number] PRN, Pain, Moderate, Reported on 09/16/2022 Metoprolol [...] - 03/21/2023 9:20 AM EST [facility] stating they received an order for a hospital bed, but need further information. They are requiring: Chart notes Rx 90 degree angle and frequent repositioning posted on the note documented in this encounter Plan of Treatment Upcoming Encounters Date Type Department Care Team (Late st Contact Info) Description 03/22/2023 3:20 PM EST Office Visit [facility] [place] [address] [facility] [phone] August, Markell Heller MD [address] [facility] [address] 05/09/2023 1:00 PM EST Office Visit Cardiology, [facility] [address] [place] [address] Nabila Fields CRNP [address] [place] [address] 06/08/2023 11:20 AM EST Office Visit [facility] [place] [address] [facility] [phone] Chana Stacy PA-C [address] [facility] [phone] Health Maintenance Due Date Last Done Comments COVID-19 Vaccine (#1) 03/12/1951 Alpha-1 Antitrypsin 1966 Mammogram 1988 Cologuard 1993 Fecal Occult Blood Test 1993 Sigmoidoscopy 1993 Zoster Vaccines (1 of 2) 1998 Pneumococcal Vaccine: 65+ Years (3 - PPSV23 or PCV20) 07/02/2018 11/25/2016, 07/02/2013 *ADVANCE DIRECTIVE NOT ON FILE 10/06/2018 Depression Screening 12/07/2020 12/08/2019 DXA Scan 06/06/2021 06/06/2014 CKD PHOS USE SMARTSET 94533 11/17/2021 11/17/2020 Influenza Vaccine (FLU shot) (#1) 2022 03/12/2013 Albumin/Creatinine Ratio 01/14/2023 01/14/2022 DTaP,Tdap,and Td Vaccines (2 - Td or Tdap) 07/03/2023 07/02/2013 GFR 09/06/2023 03/08/2023, 08/23, 04/26/2022, Additional history exists CKD HGB USE SMARTSET 64142 03/08/202403/08, 09/13/2022, 04/26/2022, Additional history exists O2 [...] Other - (no specific identity) Power of Candy Starch Mold Printer Pino Rolando Other - (no specific identity) Power of Candy Starch Mold Printer Pari Sullivan Other - (no specific identity) Power of Candy Starch Mold Printer Care Teams Chemist Internship Relationship Specialty Start Date End Date Duglas Mayo MD [address] [place] [address] PCP - General Family Medicine 09/05/22 documented as of this encounter
--- OUTSIDE RECORDS SUMMARY | 2023-07-16 14:48 | External Medical Summary | Summary of Care ---
Author Name Unknown Organization [facility] Address [address] [place] [address] Phone [phone] Care Team Providers Care Aemt Name Role Phone Duglas Mayo MD Primary Care Provider + [phone] Reason for Visit * Reason Onset Date Comments Advice 03/21/2023 Encounter Details Date Type Department Care Team (Late st Contact Info) Description 03/21/2023 Telephone [facility] [address] [place] [address] Chana Stacy PA-C [address] [place] [address] Advice Allergies Active Allergy Reactions [...] group C, by GOLD 2017 classification ([facility]) Inhale via nebulizer . Use as directed. 1 Each 1 04/21/2022 Active Pulse Oximeter Deluxe Use as directed . 1 Each 1 04/21/2022 Active Albuterol Sulfate HFA 108 (90 Base) MCG/ACT Inhalation Aerosol SolutionIndications: COPD, group C, by GOLD 2017 classification ([facility]),Asthma with irreversible airway obstruction, unspecified asthma severity, uncomplicated ([facility]) INHALE 2 PUFFS BY MOUTH EVERY 6 HOURS NEEDED FOR WHEEZING 54 g 1 05/15/2022 Active Nebulizer/Tubing/Yecenia thpiece KitIndications:COPD, group C, by GOLD 2017 classification ([facility]) Use to nebulize medicaitons 1 Kit 1 05/25/2022 Active traMADol HCl 50 MG Oral Tablet (Ultram)Indications: Bilateral primary osteoarthritis of knee Take 1 Tablet by mouth every 6 hours as needed for Pain, Moderate. 30 Tablet 0 06/06/2022 Active Additional Information Patient taking differently:50 mg [id number] PRN, Pain, Moderate, Reported on 09/16/2022 Metoprolol [...] Miscellaneous Notes * Telephone Encounter - Chana Grubbs OSA - 03/22/2023 10:31 AM EST Sunny w/ [employer] calling. They are needing the most recent OV note faxed to [phone]. Additionally, they need documentation that pt requires a hospital bed for frequency repositioning that cannot be achieved in a regular bed. She also needs a more specific diagnosis, as the current one is for an unspecified ulcer. [facility] fax requested info to the number above. [...] - 03/21/2023 9:20 AM EST Olya from [facility] stating they received an order for a hospital bed, but need further information. They are requiring: Chart notes Rx 90 degree angle and frequent repositioning posted on the note documented in this encounter Plan of Treatment Upcoming Encounters Date Type Department Care Team (Late st Contact Info) Description 03/22/2023 3:20 PM EST [facility] [place] [address] [facility] [phone] Markell Linton MD [address] [place] [place] [address] 05/09/2023 1:00 PM EST Office Visit Cardiology, [facility] [address] [facility] [place] [address] Nabila Fields CRNP [address] [facility] [place] [address] 06/08/2023 11:20 AM EST Office Visit [facility] [address] [facility] [phone] Chana Stacy PA-C [address] [facility] [address] Health Maintenance Due Date Last Done Comments COVID-19 Vaccine (#1) 03/12/1951 Alpha-1 Antitrypsin 1966 Mammogram 1988 Cologuard 1993 Fecal Occult Blood Test 1993 Sigmoidoscopy 1993 Zoster Vaccines (1 of 2) 1998 Pneumococcal Vaccine: 65+ Years (3 - PPSV23 or PCV20) 07/02/2018 11/25/2016, 07/02/2013 *ADVANCE DIRECTIVE NOT ON FILE 10/06/2018 Depression Screening 12/07/2020 12/08/2019 DXA Scan 06/06/2021 06/06/2014 CKD PHOS USE SMARTSET 61455 11/17/2021 11/17/2020 Influenza Vaccine (FLU shot) (#1) 2022 03/12/2013 Albumin/Creatinine Ratio 01/14/2023 01/14/2022 DTaP,Tdap,and Td Vaccines (2 - Td or Tdap) 07/03/2023 07/02/2013 GFR 09/06/2023 03/08/2023, 05/2 06/2022, 04/26/2022, Additional history exists CKD HGB USE SMARTSET 40153 03/08/202403/08, 09/13/2022, 04/26/2022, Additional history exists O2 [...] Other - (no specific identity) Power of Hand Cigar Making Supervisor Pino Rolando Other - (no specific identity) Power of Hand Cigar Making Supervisor Pari Sullivan Other - (no specific identity) Power of Hand Cigar Making Supervisor Care Teams Aemt Relationship Specialty Start Date End Date Duglas Mayo MD [address] [place] [address] PCP - General Family Medicine 09/05/22 documented as of this encounter
--- OUTSIDE RECORDS SUMMARY | 2023-07-16 14:48 | External Medical Summary | Summary of Care ---
Author Name Unknown Organization [facility] Address [address] [place] [address] Phone [phone] Care Team Providers Care Varnisher Plasticoater Name Role Phone Duglas Mayo MD Primary Care Provider [phone] Reason for Visit * Reason Onset Date Comments Medication Question 03/20/2023 Encounter Details Date Type Department Care Team (Late st Contact Info) Description 03/20/2023 Telephone [facility] [address] [place] [address] AugustMarkell MD [address] [place] [address] Medication Question Allergies Active Allergy [...] ns:COPD, group C, by GOLD 2017 classification ([facility]) Inhale via nebulizer . Use as directed. 1 Each 1 04/21/20 Active Pulse Oximeter Deluxe Use as directed . 1 Each 1 04/21/20 Active Albuterol Sulfate HFA 108 (90 Base) MCG/ACT Inhalation Aerosol SolutionIndication s:COPD, group C, by GOLD 2017 classification ([facility]),Asthma with irreversible airway obstruction, unspecified asthma severity, uncomplicated ([facility]) INHALE 2 PUFFS BY MOUTH EVERY 6 HOURS NEEDED FOR WHEEZING 54 g 1 05/15/19 23 Active Nebulizer/Tubing/M outhpiece KitIndications:PEN RIDER D, group C, by GOLD 2017 classification ([facility]) Use to nebulize medicaitons 1 Kit 1 05/25/19 23 Active traMADol HCl 50 MG Oral Tablet (Ultram)Indication s:Bilateral primary osteoarthritis of knee Take 1 Tablet by mouth every 6 hours as needed for Pain, Moderate. 30 Tablet 0 06/06/19 23 Active Additional Information Patient taking differently:50 mg [id number] PRN, Pain, Moderate, Reported on 09/16/2022 Metoprolol [...] multiple medications. These are all sent to [facility] in [place]. Will also discuss at upcoming appointment on 03/22/2023. Markell Linton MD * Telephone Encounter - Gregor Hills, slab polisher - 03/20/2023 11:45 AM EST Pt calling requesting the following medication below that is listed as "Historical". The following information was provided: Medication Name: Levothyroxine Strength: 50 mcg Directions: Take 1 tab daily. Preferred Quantity: 90 day supply with refills. Previous Prescriber: NA Preferred Pharmacy: [facility] Please review and approve if appropriate. Thank You, Gregor Hills [facility] Classified Ad Clerk II Centralized Clinical Pharmacy Services (Formerly Telepharmacy) 03/20/2023, 11:46 AM documented in this encounter Plan of Treatment Upcoming Encounters Date Type Department Care Team (Late st Contact Info) Description 03/22/2023 3:20 PM EST Office Visit [facility], [place] [address] [place] [facility] [place] [phone] AugustMarkell MD [address] [place] [facility] [place] [address] 05/09/2023 1:00 PM EST Office Visit Cardiology, [facility] [address] [facility] [address] Nabila Fields CRNP [address] [facility] [place] [address] 06/08/2023 11:20 AM EST Office Visit [facility] [address] [place] [facility] [place] [phone] Chana Stacy PA-C [address] [place] [address] Health Maintenance Due Date Last Done Comments COVID-19 Vaccine (#1) 03/12/1951 Alpha-1 Antitrypsin 1966 Mammogram 1988 Cologuard 1993 Fecal Occult Blood Test 1993 Sigmoidoscopy 1993 Zoster Vaccines (1 of 2) 1998 Pneumococcal Vaccine: 65+ Years (3 - PPSV23 or PCV20) 07/02/2018 11/25/2016, 07/02/2013 *ADVANCE DIRECTIVE NOT ON FILE 10/06/2018 Depression Screening 12/07/2020 12/08/2019 DXA Scan 06/06/2021 06/06/2014 CKD PHOS USE SMARTSET 38849 11/17/2021 11/17/2020 Influenza Vaccine (FLU shot) (#1) 2022 03/12/2013 Albumin/Creatinine Ratio 01/14/2023 01/14/2022 DTaP,Tdap,and Td Vaccines (2 - Td or Tdap) 07/03/2023 07/02/2013 GFR 09/06/2023 03/08/2023, 05/2 06/2022, 04/26/2022, Additional history exists CKD HGB USE SMARTSET 86139 03/08/202403/08, 09/13/2022, 04/26/2022, Additional history exists O2 [...] Other - (no specific identity) Power of Wood Tile Installation Helper Pino Marshall Other - (no specific identity) Power of Wood Tile Installation Helper Pari Sullivan Other - (no specific identity) Power of Wood Tile Installation Helper Care Teams Varnisher Plasticoater Relationship Specialty Start Date End Date Duglas Mayo MD [address] [place] [address] PCP - General Family Medicine 09/05/22 documented as of this encounter
--- OUTSIDE RECORDS SUMMARY | 2023-07-16 14:48 | External Medical Summary | Summary of Care ---
Author Name Unknown Organization [facility] Address [address] [place] [address] Phone [phone] Care Team Providers Care Sorter Lumber Straightener Name Role Phone Duglas Mayo MD Primary Care Provider [phone] Reason for Visit * Reason Onset Date Comments Medication Question 03/20/2023 Encounter Details Date Type Department Care Team (Late st Contact Info) Description 03/20/2023 Telephone [facility] [address] [place] [address] AugustMarkell MD [address] [place] [address] Medication Question Allergies Active Allergy [...] ns:COPD, group C, by GOLD 2017 classification [facility] g 1 05/15/19 23 Active Nebulizer/Tubing/M outhpiece KitIndications:CLERICAL AIDE D, group C, by GOLD 2017 classification ([facility]) Use to nebulize medicaitons 1 Kit 1 05/25/19 23 Active traMADol HCl 50 MG Oral Tablet (Ultram)Indication s:Bilateral primary osteoarthritis of knee Take 1 Tablet by mouth every 6 hours as needed for Pain, Moderate. 30 Tablet 0 06/06/19 23 Active Additional Information Patient taking differently:50 mg [id number] PRN, Pain, Moderate, Reported on 09/16/2022 Metoprolol [...] medications. These are all sent to [facility] in [place]. Will also discuss at upcoming appointment on 03/22/2023. Markell Linton MD * Telephone Encounter - Gregor Hills, workforce management consultant - 03/20/2023 11:45 AM EST Pt calling requesting the following medication below that is listed as "Historical". The following information was provided: Medication Name: Levothyroxine Strength: 50 mcg Directions: Take 1 tab daily. Preferred Quantity: 90 day supply with refills. Previous Prescriber: NA Preferred Pharmacy: [facility] Please review and approve if appropriate. Thank You, Gregor Hills [facility] Translator/Interpreter II Centralized Clinical Pharmacy Services (Formerly Telepharmacy) 03/20/2023, 11:46 AM documented in this encounter Plan of Treatment Upcoming Encounters Date Type Department Care Team (Late st Contact Info) Description 03/22/2023 3:20 PM EST Office Visit [place] [address] [facility] [place] [phone] AugustMarkell MD [address] [place] [facility] [place] [address] 05/09/2023 1:00 PM EST Office Visit Cardiology, [facility] [address] [facility] [place] [address] Nabila Fields CRNP [address] [facility] [place] [address] 06/08/2023 11:20 AM EST Office Visit [place] [address] [facility] [phone] Chana Stacy PA-C [address] [facility] [place] [address] Health Maintenance Due Date Last Done Comments COVID-19 Vaccine (#1) 03/12/1951 Alpha-1 Antitrypsin 1966 Mammogram 1988 Cologuard 1993 Fecal Occult Blood Test 1993 Sigmoidoscopy 1993 Zoster Vaccines (1 of 2) 1998 Pneumococcal Vaccine: 65+ Years (3 - PPSV23 or PCV20) 07/02/2018 11/25/2016, 07/02/2013 *ADVANCE DIRECTIVE NOT ON FILE 10/06/2018 Depression Screening 12/07/2020 12/08/2019 DXA Scan 06/06/2021 06/06/2014 CKD PHOS USE SMARTSET 19816 11/17/2021 11/17/2020 Influenza Vaccine (FLU shot) (#1) 2022 03/12/2013 Albumin/Creatinine Ratio 01/14/2023 01/14/2022 DTaP,Tdap,and Td Vaccines (2 - Td or Tdap) 07/03/2023 07/02/2013 GFR 09/06/2023 03/08/2023, 05/2 06/2022, 04/26/2022, Additional history exists CKD HGB USE SMARTSET 61212 03/08/202403/08, 09/13/2022, 04/26/2022, Additional history exists O2 [...] Other - (no specific identity) Power of Manager Customs Pino Rolando Other - (no specific identity) Power of Manager Customs Pari Sullivan Other - (no specific identity) Power of Manager Customs Care Teams Sorter Lumber Straightener Relationship Specialty Start Date End Date Duglas Mayo MD [address] [place] [address] PCP - General Family Medicine 09/05/22 documented as of this encounter
--- OUTSIDE RECORDS SUMMARY | 2023-07-16 14:48 | External Medical Summary | Summary of Care ---
Author Name Unknown Organization [facility] Address [address] [place] [address] Phone [phone] Care Team Providers Care Waterworks Employee Name Role Phone Duglas Mayo MD Primary Care Provider + [phone] Reason for Visit * Reason Onset Date Comments Order Request 03/14/2023 Encounter Details Date Type Department Care Team (Late st Contact Info) Description 03/14/2023 Telephone [facility] [address] [place] [address] AugustEleuterio MD [address] [place] [address] Order Request Allergies Active Allergy [...] s:COPD, group C, by GOLD 2017 classification ([facility]) Inhale via nebulizer . Use [...] :COPD, group C, by GOLD 2017 classification ([facility]),Asthma with irreversible airway obstruction, unspecified asthma severity, uncomplicated ([facility]) INHALE 2 PUFFS BY MOUTH EVERY 6 HOURS NEEDED FOR WHEEZING 54 g 1 3 Active Nebulizer/Tubing/Mo uthpiece KitIndications:COPD , group C, by GOLD 2017 classification ([facility]) Use to nebulize medicaitons 1 Kit 1 3 Active traMADol HCl 50 MG Oral Tablet (Ultram)Indications :Bilateral primary osteoarthritis of knee Take 1 Tablet by mouth every 6 hours as needed for Pain, Moderate. 30 Tablet 0 3 Active Additional Information Patient taking differently:50 mg [id number] PRN, Pain, Moderate, Reported on 09/16/2022 Levothyroxine [...] encounter Miscellaneous Notes * Telephone Encounter - Lydia May LPN - 03/20/2023 6:09 PM EST Printed orders and faxed to number listed below. left message on machine for pt to call office Please make bob aware orders were faxed, thank you * Addendum Note - Eleuterio Lopez MD - 03/20/2023 5:29 PM ESTAddended by: ELEUTERIO LOPEZ on: 03/20/2023 05:29 PM Modules accepted: Orders * Telephone Encounter - Eleuterio Lopez MD - 03/20/2023 5:28 PM EST DME order placed with specific wording. Can we please fax as below. Thanks, Eleuterio Lopez MD * Telephone Encounter - Carole Duenas MED ASSIST - 03/20/2023 3:22 PM EST Can the DME be changed? * Telephone Encounter - Chana Grubbs OSA - 03/20/2023 3:12 PM EST Pt's sister, Bob, calling. She spoke w/ [employer] (pt's insurance) and was advised that pt is eligible for a semi-electric medical bed. The order MUST have that specific wording, or they will not cover it. [employer] advised Bob that the order can be sent to [facility]. Their fax number is [phone]. Pls call Bob once this has been done, so she can f/u w/ [employer]. Thx. * Telephone Encounter - Carole Duenas MED ASSIST - 03/20/2023 11:23 AM EST Faxed to [facility] * Telephone Encounter - Isrrael Hay OSA - 03/20/2023 10:49 AM EST Caller requesting the following information to be faxed: Name/Company of caller: Bob Information requested to be faxed: order for hospital bed Fax number: not given Attention to Name/Company: [facility] [facility] [employer] [facility] Any additional information?: Bob calling in stating that [facility] does not participate with [employer].Please advise regarding whether they participate with [employer]. * Telephone Encounter - Carole Duenas MED ASSIST - 03/15/2023 3:08 PM EST Faxed to [facility] Patient. * Telephone Encounter - Yashira Fernandes OSA - 03/15/2023 11:11 AM EST [facility] does not accept [employer]. Please send to [employer] or [facility] Patient instead. * Telephone Encounter - Tania Aguayo LPN - 03/15/2023 8:22 AM EST Sent to [facility] * Telephone Encounter - Eleuterio Lopez MD [...] for this patient. Name of Requesting Provider: Bob Order Requested: hospital bed Diagnosis/Reason for Request: [...] if applicable: not given Call Back Number: [phone] Call dropped before the end of the call. I attempted to call Bob back, but the call went to . [...] Description 03/22/2023 3:20 PM EST [address] [phone] AugustEleuterio MD [address] [facility] [place] [id number] 05/09/2023 1:00 PM EST Office [facility] [place] [address] Nabila Fields CRNP [address] [place] [address] 06/08/2023 11:20 AM EST Office Visit [place] [address] [address] [facility] [phone] Chana Stacy PA-C [address] [place] [facility] [place] [address] Health Maintenance Due Date Last Done Comments COVID-19 Vaccine (#1) 03/12/1951 Alpha-1 Antitrypsin 1966 Mammogram 1988 Cologuard 1993 Fecal Occult Blood Test 1993 Sigmoidoscopy 1993 Zoster Vaccines (1 of 2) 1998 Pneumococcal Vaccine: 65+ Years (3 - PPSV23 or PCV20) 07/02/2018 11/25/2016, 07/02/2013 *ADVANCE DIRECTIVE NOT ON FILE 10/06/2018 Depression Screening 12/07/2020 12/08/2019 DXA Scan 06/06/2021 06/06/2014 CKD PHOS USE SMARTSET 53795 11/17/2021 11/17/2020 Influenza Vaccine (FLU shot) (#1) 2022 03/12/2013 Albumin/Creatinine Ratio 01/14/2023 01/14/2022 DTaP,Tdap,and Td Vaccines (2 - Td or Tdap) 07/03/2023 07/02/2013 GFR 09/06/2023 03/08/2023, 05/2 06/2022, 04/26/2022, Additional history exists CKD HGB USE SMARTSET 40211 03/08/202403/08, 09/13/2022, 04/26/2022, Additional history exists O2 [...] File Name Relationship Healthcare Agent Relationship Communication Bob Rolando Other - (no specific identity) Power of Beater Room Supervisor Pino Rolando Other - (no specific identity) Power of Beater Room Supervisor Pari Sullivan Other - (no specific identity) Power of Beater Room Supervisor Care Teams Waterworks Employee Relationship Specialty Start Date End Date Duglas Mayo MD [address] [place] [address] PCP - General Family Medicine 09/05/22 documented as of this encounter
--- OUTSIDE RECORDS SUMMARY | 2023-07-16 14:48 | External Medical Summary | Summary of Care ---
Author Name Unknown Organization [facility] Address [address] [place] [address] Phone [phone] Care Team Providers Care Bed Rubber Name Role Phone Duglas Mayo MD Primary Care Provider [phone] Reason for Visit * Reason Onset Date Comments Medication Question 03/20/2023 Encounter Details Date Type Department Care Team (Late st Contact Info) Description 03/20/2023 Telephone [facility] [address] [place] [address] AugustMarkell MD [address] [place] [address] Medication Question Allergies Active Allergy [...] Active Additional Information Patient taking differently:50 mg [id number] PRN, Pain, Moderate, Reported on 09/16/2022 Metoprolol [...] before bedtime. 360 Tablet 3 3 Active Topiramate 25 MG Oral Tablet (topAMAX)Indication s:Chronic daily headache 1 tab by mouth three times a day 270 Tablet 1 2 03/20/20 Discontinu ed(Refill) Floranex Oral Tablet Take 2 Each by mouth in the morning and 2 Each before bedtime. 0 03/20/20 Discontinu ed(Refill) documented as of this encounter [...] Notes * Telephone Encounter - Gregor Hills public health veterinarian - 03/20/2023 11:33 AM EST Pt calling requesting the following medication below that is listed as "Historical". The following information was provided: Medication Name: Floranex Strength: NA Directions: Take 2 tabs twice daily. Preferred Quantity: 360 with refills. Previous Prescriber: NA Preferred Pharmacy: [facility] Please review and approve if appropriate. Thank You, Gregor Hills [facility] Concierge II Centralized Clinical Pharmacy Services (Formerly Telepharmacy) 03/20/2023, 11:33 AM documented in this encounter Plan of Treatment Upcoming Encounters Date Type Department Care Team (Late st Contact Info) Description 03/22/2023 3:20 PM EST Office Visit [facility] [address] [facility] [phone] August, Markell Heller MD [address] [facility] [address] 05/09/2023 1:00 PM EST Office Visit Cardiology, [facility] [address] [place] [address] Nabila Fields CRNP [address] [place] [address] 06/08/2023 11:20 AM EST Office Visit [facility] [place] [address] [facility] [phone] Chana Stacy PA-C [address] [facility] [address] Health Maintenance Due Date Last Done Comments COVID-19 Vaccine (#1) 03/12/1951 Alpha-1 Antitrypsin 1966 Mammogram 1988 Cologuard 1993 Fecal Occult Blood Test 1993 Sigmoidoscopy 1993 Zoster Vaccines (1 of 2) 1998 Pneumococcal Vaccine: 65+ Years (3 - PPSV23 or PCV20) 07/02/2018 11/25/2016, 07/02/2013 *ADVANCE DIRECTIVE NOT ON FILE 10/06/2018 Depression Screening 12/07/2020 12/08/2019 DXA Scan 06/06/2021 06/06/2014 CKD PHOS USE SMARTSET 61054 11/17/2021 11/17/2020 Influenza Vaccine (FLU shot) (#1) 2022 03/12/2013 Albumin/Creatinine Ratio 01/14/2023 01/14/2022 DTaP,Tdap,and Td Vaccines (2 - Td or Tdap) 07/03/2023 07/02/2013 GFR 09/06/2023 03/08/2023, 05/2 06/2022, 04/26/2022, Additional history exists CKD HGB USE SMARTSET 84716 03/08/202403/08, 09/13/2022, 04/26/2022, Additional history exists O2 [...] Other - (no specific identity) Power of Dealer Analyst Pino Marshall Other - (no specific identity) Power of Dealer Analyst Pari Sullivan Other - (no specific identity) Power of Dealer Analyst Care Teams Bed Rubber Relationship Specialty Start Date End Date Duglas Mayo MD [address] [place] [address] PCP - General Family Medicine 09/05/22 documented as of this encounter
--- OUTSIDE RECORDS SUMMARY | 2023-07-16 14:49 | External Medical Summary | Summary of Care ---
Author Name Unknown Organization [facility] Address [address] [place] [address] Phone [phone] Care Team Providers Care Rotary Driller Prospecting Name Role Phone Duglas Mayo MD Primary Care Provider + [phone] Reason for Visit * Reason Onset Date Comments Advice 03/14/2023 Encounter Details Date Type Department Care Team (Late st Contact Info) Description 03/14/2023 Telephone [facility] [address] [place] [address] Chana Stacy PA-C [address] [place] [address] Advice Allergies Active Allergy Reactions Criticality Noted Date Comments Methylprednisolone Sodium Succ 12/06 Dog Dander Low 03/20/2019 Other reaction(s): Sneezing Food (See Comments) 02/23/2018 Duck eggs Swelling Pollen 08/25/2015 Nystatin 01/17/2019 Allergic reaction Pollen Extract 03/20/2019 Other reaction(s): HAYFEVER documented as of this encounter (statuses as of 03/15/2023) Medications Medication Sig Dispensed Refills Start Date [...] 12/21/2022 Amiodarone HCl 200 MG Oral Tablet (Cordarone)Indicatio ns:Paroxysmal atrial fibrillation (HCC) TAKE 1 TABLET BY MOUTH EVERY DAY 90 Tablet 3 12/29/2021 Active Ammonium Lactate 12 % External Lotion (Amlactin Daily)Indications:Ve nous stasis dermatitis of both lower extremities Apply topically to affected area as needed for Dry Skin. Apply to legs daily before putting socks on or at bedtime 400 g 0 01/14/2022 Active Additional Information Patient not taking.Reported on 09/16/2022 Topiramate 25 MG Oral Tablet (topAMAX)Indications :Chronic daily headache 1 tab by mouth three times a day 270 Tablet 1 01/24/2022 Active Additional Information Patient taking differently: 25 [...] group C, by GOLD 2017 classification ([facility]) Inhale via nebulizer . Use as directed. 1 Each 1 04/21/2022 Active Pulse Oximeter Deluxe Use as directed . 1 Each 1 04/21/2022 Active Clopidogrel Bisulfate 75 MG Oral Tablet (pLAVix)Indications: Congestive heart failure due to valvular disease TAKE 1 TABLET BY MOUTH EVERY DAY IN THE MORNING 90 Tablet 3 04/29/2022 Active Albuterol Sulfate HFA 108 (90 Base) MCG/ACT Inhalation Aerosol SolutionIndications: COPD, group C, by GOLD 2017 classification ([facility]),Asthma with irreversible airway obstruction, unspecified asthma severity, uncomplicated ([facility]) INHALE 2 PUFFS BY MOUTH EVERY 6 HOURS NEEDED FOR WHEEZING 54 g 1 05/15/2022 Active Pantoprazole Sodium 40 MG Oral Tablet Delayed Release (Protonix)Indication s:Esophageal reflux Take 1 Tablet by mouth in the morning and 1 Tablet before bedtime. 180 Tablet 1 05/25/2022 Active Nebulizer/Tubing/Yecenia thpiece KitIndications:COPD, group C, by GOLD 2017 classification ([facility]) Use to nebulize medicaitons 1 Kit 1 05/25/2022 Active traMADol HCl 50 MG Oral Tablet (Ultram)Indications: Bilateral primary osteoarthritis of knee Take 1 Tablet by mouth every 6 hours as needed for Pain, Moderate. 30 Tablet 0 06/06/2022 Active Additional Information Patient taking differently:50 mg [id number] PRN, Pain, Moderate, Reported on 09/16/2022 Simvastatin 10 MG Oral Tablet (Zocor) TAKE 1 TABLET BY MOUTH EVERYDAY AT BEDTIME 90 Tablet 1 07/09/2022 Active Levothyroxine Sodium 25 MCG Oral Tablet (Levoxyl)Indications :Acquired hypothyroidism TAKE 1 TAB BY MOUTH DAILY FIRST THING IN THE AM AT LEAST 30 MIN PRIOR TO BREAKFAST OR OTHER MEDS 90 Tablet 0 08/24/2022 Active Additional Information Patient not taking.Reported on [...] 110 MCG/ACT Inhalation Aerosol 0 02/08/2023 Active Levothyroxine Sodium 50 MCG Oral Tablet (Levoxyl) 0 01/26/2023 Active Furosemide 20 MG Oral Tablet (Lasix)Indications:A [...] as of this encounter (statuses as of 03/15/2023) Active Problems Problem Noted Date Diagnosed Date [...] as of this encounter (statuses as of 03/15/2023) Resolved Problems Problem Noted Date Diagnosed Date [...] as of this encounter (statuses as of 03/15/2023) Immunizations Name Administration Dates Next Due Pneumococcal [...] - Carole Duenas MED ASSIST - 03/15/2023 8:33 AM EST Tried to call pt. No answer. Left message to call back. Please advise previous message. * Telephone Encounter - Markell Linton MD - 03/14/2023 6:12 PM EST Mupirocin ointment to be used for 14 days and transparent dressing to protect the area sent to [facility] in [place]. Markell Linton MD * Telephone Encounter - Tania Aguayo LPN - 03/14/2023 9:27 AM EST Please advise * Telephone Encounter - Lorene Braun OSA - 03/14/2023 9:15 AM EST Pt has sores on her bottom and her sister is calling in to see if chana can prescribe something for it pt stated it billings like fire and dr. Van has prescribed something for it before documented in this encounter Plan of Treatment Upcoming Encounters Date Type Department Care Team (Late st Contact Info) Description 03/22/2023 3:20 PM EST [facility] [place] [address] [facility] [phone] Markell Linton MD [address] [place] [facility] [place] [address] 05/09/2023 1:00 PM EST Office Visit Cardiology, [facility] [address] [place] [place] [address] Nabila Fields CRNP [address] [facility] [place] [address] 06/08/2023 11:20 AM EST [facility] [place] [address] [facility] [phone] Chana Stacy PA-C [address] [facility] [address] Health Maintenance Due Date Last Done Comments COVID-19 Vaccine (#1) 03/12/1951 Alpha-1 Antitrypsin 1966 Mammogram 1988 Cologuard 1993 Fecal Occult Blood Test 1993 Sigmoidoscopy 1993 Zoster Vaccines (1 of 2) 1998 Pneumococcal Vaccine: 65+ Years (3 - PPSV23 or PCV20) 07/02/2018 11/25/2016, 07/02/2013 *ADVANCE DIRECTIVE NOT ON FILE 10/06/2018 Depression Screening 12/07/2020 12/08/2019 DXA Scan 06/06/2021 06/06/2014 CKD PHOS USE SMARTSET 01251 11/17/2021 11/17/2020 Influenza Vaccine (FLU shot) (#1) 2022 03/12/2013 Albumin/Creatinine Ratio 01/14/2023 01/14/2022 DTaP,Tdap,and Td Vaccines (2 - Td or Tdap) 07/03/2023 07/02/2013 GFR 09/06/2023 03/08/2023, 08/23, 04/26/2022, Additional history exists CKD HGB USE SMARTSET 40241 03/08/202403/08, 09/13/2022, 04/26/2022, Additional history exists O2 [...] area, unspecified laterality, unspecified ulcer stage- Primary documented in this encounter Advance Directives [...] Other - (no specific identity) Power of Va Underwriter Pino Rolando Other - (no specific identity) Power of Va Underwriter Pari Sullivan Other - (no specific identity) Power of Va Underwriter Care Teams Rotary Driller Prospecting Relationship Specialty Start Date End Date Duglas Mayo MD [address] [place], [place] [phone] PCP - General Family Medicine 09/05/22 documented as of this encounter
--- OUTSIDE RECORDS SUMMARY | 2023-07-16 14:49 | External Medical Summary | Summary of Care ---
Author Name Unknown Organization [facility] Address [address] [place] [address] Phone [phone] Care Team Providers Care Vehicle Controls Engineer Name Role Phone Duglas Mayo MD Primary Care Provider + [phone] Reason for Visit * Reason Onset Date Comments Order Request 03/14/2023 Encounter Details Date Type Department Care Team (Late st Contact Info) Description 03/14/2023 Telephone [facility] [address] [place] [address] AugustMarkell MD [address] [place] [address] Order Request Allergies Active Allergy [...] Active Additional Information Patient taking differently:50 mg [id number] PRN, Pain, Moderate, Reported on 09/16/2022 Simvastatin [...] encounter Miscellaneous Notes * Telephone Encounter - Isrrael Hay OSA - 03/20/2023 10:49 AM EST Caller requesting the following information to be faxed: Name/Company of caller: Theresa Information requested to be faxed: order for hospital bed Fax number: not given Attention to Name/Company[facility] [facility] Any additional information?: Theresa calling in stating that [facility] does not participate with [employer].Please advise regarding whether they participate with [employer]. * Telephone Encounter - Carole Duenas MED ASSIST - 03/15/2023 3:08 PM EST Faxed to [facility]. * Telephone Encounter - Yashira Fernandes OSA - 03/15/2023 11:11 AM EST [facility] does not accept [employer]. Please send to [facility] [employer] [facility] or [facility] instead. * Telephone Encounter - Tania Aguayo LPN - 03/15/2023 8:22 AM EST Sent to [facility] * Telephone Encounter - Markell Linton MD - 03/14/2023 6:50 PM EST DME order for hospital bed placed. Note from 03/08/2023 addended to include limited mobility, COPD,and sacral ulcers as reasons patient needs hospital bed. Can we please fax DME order as appropriatefor [employer]. Thanks, Markell Linton MD * Telephone Encounter - [...] if applicable: not given Call Back Number: [phone] Call dropped before the end of the [...] Description 03/22/2023 3:20 PM EST Office Visit [facility] [address] [place] [address] AugustMarkell MD [address], [place] [phone] 05/09/2023 1:00 PM EST Office Visit Cardiology, [facility] [address] [facility] [place] [address] Nabila Fields CRNP [address] [facility] [place] [address] 06/08/2023 11:20 AM EST Office Visit [facility] [address] [place] [facility] [place] [phone] Chana Stacy PA-C [address] [place], [place] [phone] Health Maintenance Due Date Last Done Comments COVID-19 Vaccine (#1) 03/12/1951 Alpha-1 Antitrypsin 1966 Mammogram 1988 Cologuard 1993 Fecal Occult Blood Test 1993 Sigmoidoscopy 1993 Zoster Vaccines (1 of 2) 1998 Pneumococcal Vaccine: 65+ Years (3 - PPSV23 or PCV20) 07/02/2018 11/25/2016, 07/02/2013 *ADVANCE DIRECTIVE NOT ON FILE 10/06/2018 Depression Screening 12/07/2020 12/08/2019 DXA Scan 06/06/2021 06/06/2014 CKD PHOS USE SMARTSET 43817 11/17/2021 11/17/2020 Influenza Vaccine (FLU shot) (#1) 2022 03/12/2013 Albumin/Creatinine Ratio 01/14/2023 01/14/2022 DTaP,Tdap,and Td Vaccines (2 - Td or Tdap) 07/03/2023 07/02/2013 GFR 09/06/2023 03/08/2023, 0506/2022, 04/26/2022, Additional history exists CKD HGB USE SMARTSET 83911 03/08/202403/08, 09/13/2022, 04/26/2022, Additional history exists O2 [...] Other - (no specific identity) Power of Steel Inspector Pino Marshall Other - (no specific identity) Power of Steel Inspector Pari Sullivan Other - (no specific identity) Power of Steel Inspector Care Teams Vehicle Controls Engineer Relationship Specialty Start Date End Date Duglas Mayo MD [address] [place] [address] PCP - General Family Medicine 09/05/22 documented as of this encounter
--- OUTSIDE RECORDS SUMMARY | 2023-07-16 14:49 | External Medical Summary | Summary of Care ---
Author Name Unknown Organization [facility] Address [address] [place] [address] Phone [phone] Care Team Providers Care Supervisor Logging Name Role Phone Duglas Mayo MD Primary Care Provider + [phone] Reason for Visit * Reason Onset Date Comments Order Request 03/14/2023 Encounter Details Date Type Department Care Team (Late st Contact Info) Description 03/14/2023 Telephone [facility] [address] [place] [address] AugustMarkell MD [address] [place] [address] Order Request Allergies Active Allergy [...] C, by GOLD 2017 classification ([facility]) Inhale via nebulizer . Use as [...] C, by GOLD 2017 classification ([facility]),Asthma with irreversible airway obstruction, unspecified asthma severity, uncomplicated ([facility]) INHALE 2 PUFFS BY MOUTH EVERY 6 HOURS NEEDED FOR WHEEZING 54 g 1 3 Active Nebulizer/Tubing/Mo uthpiece KitIndications:COPD , group C, by GOLD 2017 classification ([facility]) Use to nebulize medicaitons 1 Kit 1 3 Active traMADol HCl 50 MG Oral Tablet (Ultram)Indications :Bilateral primary osteoarthritis of knee Take 1 Tablet by mouth every 6 hours as needed for Pain, Moderate. 30 Tablet 0 3 Active Additional Information Patient taking differently:50 mg [id number] PRN, Pain, Moderate, Reported on 09/16/2022 Levothyroxine [...] Pt's sister, Theresa, calling. She spoke w/ [employer] (pt's insurance) and was advised that pt is eligible for a semi-electric medical bed. The order MUST have that specific wording, or they will not cover it. [employer] advised Theresa that the order can be sent to [facility]. Their fax number is [phone]. Pls call Theresa once this has been done, so she can f/u w/ [facility]. Thx. * Telephone Encounter - Carole Duenas MED ASSIST - 03/20/2023 11:23 AM EST Faxed to [facility]. * Telephone Encounter - Isrrael Hay OSA - 03/20/2023 10:49 AM EST Caller requesting the following information to be faxed: Name/Company of caller: Theresa Information requested to be faxed: order for hospital bed Fax number: not given Attention to Name/Company: [facility] Any additional information?: Theresa calling in stating that [facility] does not participate with [employer].Please advise regarding whether they participate with [employer]. * Telephone Encounter - Carole Duenas MED ASSIST - 03/15/2023 3:08 PM EST Faxed to [facility]. * Telephone Encounter - Yashira Fernandes OSA - 03/15/2023 11:11 AM EST [facility] does not accept [employer]. Please send to [facility] or [facility] instead. * Telephone Encounter - Tania Aguayo LPN - 03/15/2023 8:22 AM EST Sent to [facility] home care * Telephone Encounter - Markell [...] if applicable: not given Call Back Number: [phone] Call dropped before the end of the [...] Upcoming Encounters Date Type Department Care Team ([facility] st Contact Info) Description 03/22/2023 3:20 PM EST [facility] [place] [address] [facility] [phone] AugustMarkell MD [address], [place] [phone] 05/09/2023 1:00 PM EST Office Visit Cardiology, [facility] [address] [facility] [place] [address] Nabila Fields CRNP [address] [place] [address] 06/08/2023 11:20 AM EST Office Visit Family Practice, [place] [address] [place] [facility] [place] [phone] Chana Stacy PA-C [address] [place], [place] [phone] Health Maintenance Due Date Last Done Comments COVID-19 Vaccine (#1) 03/12/1951 Alpha-1 Antitrypsin 1966 Mammogram 1988 Cologuard 1993 Fecal Occult Blood Test 1993 Sigmoidoscopy 1993 Zoster Vaccines (1 of 2) 1998 Pneumococcal Vaccine: 65+ Years (3 - PPSV23 or PCV20) 07/02/2018 11/25/2016, 07/02/2013 *ADVANCE DIRECTIVE NOT ON FILE 10/06/2018 Depression Screening 12/07/2020 12/08/2019 DXA Scan 06/06/2021 06/06/2014 CKD PHOS USE SMARTSET 12702 11/17/2021 11/17/2020 Influenza Vaccine (FLU shot) (#1) 2022 03/12/2013 Albumin/Creatinine Ratio 01/14/2023 01/14/2022 DTaP,Tdap,and Td Vaccines (2 - Td or Tdap) 07/03/2023 07/02/2013 GFR 09/06/2023 03/08/2023, 0506/2022, 04/26/2022, Additional history exists CKD HGB USE SMARTSET 73055 03/08/202403/08, 09/13/2022, 04/26/2022, Additional history exists O2 [...] Other - (no specific identity) Power of Bobtailer Pino Marshall Other - (no specific identity) Power of Bobtailer Pari Sullivan Other - (no specific identity) Power of Bobtailer Care Teams Supervisor Logging Relationship Specialty Start Date End Date Duglas Mayo MD [address] [place] [address] PCP - General Family Medicine 09/05/22 documented as of this encounter
--- OUTSIDE RECORDS SUMMARY | 2023-07-16 14:49 | External Medical Summary | Summary of Care ---
Author Name Unknown Organization [facility] Address [address] [place] [address] Phone [phone] Care Team Providers Care Boilermaker Welder Name Role Phone Duglas Mayo MD Primary Care Provider [phone] Reason for Visit * Reason Onset Date Comments Medication Refill 03/20/2023 Encounter Details Date Type Department Care Team (Late st Contact Info) Description 03/20/2023 Refill [facility] [address] [place] [address] AugustEleuterio MD [address] [place] [address] Allergies Active Allergy Reactions Criticality [...] C, by GOLD 2017 classification ([facility]) Inhale via nebulizer . Use as directed. [...] C, by GOLD 2017 classification ([facility]),Asthma with irreversible airway obstruction, unspecified asthma severity, uncomplicated ([facility]) INHALE 2 PUFFS BY MOUTH EVERY 6 HOURS NEEDED FOR WHEEZING 54 g 1 3 Active Nebulizer/Tubing/Mo uthpiece KitIndications:COPD , group C, by GOLD 2017 classification ([facility]) Use to nebulize medicaitons 1 Kit 1 3 Active traMADol HCl 50 MG Oral Tablet (Ultram)Indications :Bilateral primary osteoarthritis of knee Take 1 Tablet by mouth every 6 hours as needed for Pain, Moderate. 30 Tablet 0 3 Active Additional Information Patient taking differently:50 mg [id number] PRN, Pain, Moderate, Reported on 09/16/2022 Levothyroxine [...] 22 g 1 3 03/28/20 23 Active Simvastatin 10 MG Oral Tablet (Zocor) TAKE 1 TABLET BY MOUTH EVERYDAY AT BEDTIME 90 Tablet 1 3 Active Simvastatin 10 MG [...] encounter Miscellaneous Notes * Telephone Encounter - Keenan Rust [facility] - 03/20/2023 11:54 AM ESTSigned Prescriptions: Disp Refills Simvastatin 10 MG Oral Tablet (Zocor) 90 Tab*1 Sig: TAKE 1 TABLET BY MOUTH EVERYDAY AT BEDTIME Authorizing Provider: ELEUTERIO LOPEZ Ordering User: KEENAN RUST * Telephone Encounter - Gregor Hills, felt strip finisher - 03/20/2023 11:44 AM EST Pt is out of medication. Needs refills until appt. Did you pend patient's preferred pharmacy and medication before forwarding?yes [id number] [address] [facility] Pending Prescriptions: Disp Refills Simvastatin 10 MG Oral Tablet (Zocor) 90 Tab*1 Sig: TAKE 1 TABLET BY MOUTH EVERYDAY AT BEDTIME Last Visit: 03/08/2023 (in office), 04/21/2022 (telemedicine) Next Visit: 03/22/2023 If no future appointments scheduled, and last appointment is greater than a year ago, please schedule patient for a follow-up appointment Last date the medication was ordered: 07/09/2022 Is this request for a controlled substance?No [...] Description 03/22/2023 3:20 PM EST Office Visit [address] [address] Eleuterio Lopez MD [address] [place] [address] 05/09/2023 1:00 PM EST Office Visit Cardiology, [facility] [address] [place] [address] Nabila Fields CRNP [address] [place] [address] 06/08/2023 11:20 AM EST Office Visit Family Practice, [place] [address] [place] [phone] Chana Stacy PA-C [address] [place] [address] Health Maintenance Due Date Last Done Comments COVID-19 Vaccine (#1) 03/12/1951 Alpha-1 Antitrypsin 1966 Mammogram 1988 Cologuard 1993 Fecal Occult Blood Test 1993 Sigmoidoscopy 1993 Zoster Vaccines (1 of 2) 1998 Pneumococcal Vaccine: 65+ Years (3 - PPSV23 or PCV20) 07/02/2018 11/25/2016, 07/02/2013 *ADVANCE DIRECTIVE NOT ON FILE 10/06/2018 Depression Screening 12/07/2020 12/08/2019 DXA Scan 06/06/2021 06/06/2014 CKD PHOS USE SMARTSET 41146 11/17/2021 11/17/2020 Influenza Vaccine (FLU shot) (#1) 2022 03/12/2013 Albumin/Creatinine Ratio 01/14/2023 01/14/2022 DTaP,Tdap,and Td Vaccines (2 - Td or Tdap) 07/03/2023 07/02/2013 GFR 09/06/2023 03/08/2023, 08/23, 04/26/2022, Additional history exists CKD HGB USE SMARTSET 08108 03/08/202403/08, 09/13/2022, 04/26/2022, Additional history exists O2 [...] Other - (no specific identity) Power of Tracer Clerk Pino Rolando Other - (no specific identity) Power of Tracer Clerk Pari Sullivan Other - (no specific identity) Power of Tracer Clerk Care Teams Boilermaker Welder Relationship Specialty Start Date End Date Duglas Mayo MD [address] [place] [address] PCP - General Family Medicine 09/05/22 documented as of this encounter
--- OUTSIDE RECORDS SUMMARY | 2023-07-16 14:49 | External Medical Summary | Summary of Care ---
Author Name Unknown Organization [facility] Address [address] [place] [address] Phone [phone] Care Team Providers Care Electrical Continuity Inspector Name Role Phone Duglas Mayo MD Primary Care Provider + [phone] Reason for Visit * Reason Onset Date Comments Order Request 03/14/2023 Encounter Details Date Type Department Care Team (Late st Contact Info) Description 03/14/2023 Telephone [facility] [address] [place] [address] AugustMarkell MD [address] [place] [address] Order Request Allergies Active Allergy [...] by GOLD 2017 classification ([facility]) Inhale via nebulizer . Use as directed. [...] by GOLD 2017 classification ([facility]),Asthma with irreversible airway obstruction, unspecified asthma severity, uncomplicated ([facility]) INHALE 2 PUFFS BY MOUTH EVERY 6 HOURS NEEDED FOR WHEEZING 54 g 1 05/15/2022 Active Pantoprazole Sodium 40 MG Oral Tablet Delayed Release (Protonix)Indication s:Esophageal reflux Take 1 Tablet by mouth in the morning and 1 Tablet before bedtime. 180 Tablet 1 05/25/2022 Active Nebulizer/Tubing/Yecenia thpiece KitIndications:COPD, group C, by GOLD 2017 classification ([facility]) Use to nebulize medicaitons 1 Kit 1 05/25/2022 Active traMADol HCl 50 MG Oral Tablet (Ultram)Indications: Bilateral primary osteoarthritis of knee Take 1 Tablet by mouth every 6 hours as needed for Pain, Moderate. 30 Tablet 0 06/06/2022 Active Additional Information Patient taking differently:50 mg [id number] PRN, Pain, Moderate, Reported on 09/16/2022 Simvastatin [...] not given Attention to Name/Company: [employer] [facility] Any additional information?: Theresa calling in stating that [facility] does not participate with [employer].Please advise regarding whether they participate with [employer]. * Telephone Encounter - Carole Duenas MED ASSIST - 03/15/2023 3:08 PM EST Faxed to [facility]. * Telephone Encounter - Yashira Fernandes OSA - 03/15/2023 11:11 AM EST [facility] does not accept [employer]. Please send to [facility] or [facility] instead. * Telephone Encounter - [...] if applicable: not given Call Back Number: [phone] Call dropped before the end of the [...] Description 03/22/2023 3:20 PM EST Office Visit [facility] [address] [place] [address] AugustMarkell MD [address] [place], [place] [phone] 05/09/2023 1:00 PM EST Office Visit Cardiology, [facility] [address] [facility] [place] [address] Nabila Fields CRNP [address] [facility] [place] [address] 06/08/2023 11:20 AM EST Office Visit [facility] [address] [place] [facility] [place] [phone] Chana Stacy PA-C [address] [place], [place] [phone] Health Maintenance Due Date Last Done Comments COVID-19 Vaccine (#1) 03/12/1951 Alpha-1 Antitrypsin 1966 Mammogram 1988 Cologuard 1993 Fecal Occult Blood Test 1993 Sigmoidoscopy 1993 Zoster Vaccines (1 of 2) 1998 Pneumococcal Vaccine: 65+ Years (3 - PPSV23 or PCV20) 07/02/2018 11/25/2016, 07/02/2013 *ADVANCE DIRECTIVE NOT ON FILE 10/06/2018 Depression Screening 12/07/2020 12/08/2019 DXA Scan 06/06/2021 06/06/2014 CKD PHOS USE SMARTSET 53368 11/17/2021 11/17/2020 Influenza Vaccine (FLU shot) (#1) 2022 03/12/2013 Albumin/Creatinine Ratio 01/14/2023 01/14/2022 DTaP,Tdap,and Td Vaccines (2 - Td or Tdap) 07/03/2023 07/02/2013 GFR 09/06/2023 03/08/2023, 0506/2022, 04/26/2022, Additional history exists CKD HGB USE SMARTSET 99891 03/08/202403/08, 09/13/2022, 04/26/2022, Additional history exists O2 [...] Other - (no specific identity) Power of Children'S Nursery Assistant Pino Marshall Other - (no specific identity) Power of Children'S Nursery Assistant Pari Sullivan Other - (no specific identity) Power of Children'S Nursery Assistant Care Teams Electrical Continuity Inspector Relationship Specialty Start Date End Date Duglas Mayo MD [address] [place] [address] PCP - General Family Medicine 09/05/22 documented as of this encounter
--- OUTSIDE RECORDS SUMMARY | 2023-07-16 14:49 | External Medical Summary | Summary of Care ---
Author Name Unknown Organization [facility] Address [address] [place] [address] Phone [phone] Care Team Providers Care Dross Puller Name Role Phone Duglas Mayo MD Primary Care Provider + [phone] Reason for Visit * Reason Onset Date Comments Order Request 03/14/2023 Encounter Details Date Type Department Care Team (Late st Contact Info) Description 03/14/2023 Telephone [facility] [address] [place] [address] AugustMarkell MD [address] [place] [address] Order Request Allergies Active Allergy [...] Active Additional Information Patient taking differently:50 mg [id number] PRN, Pain, Moderate, Reported on 09/16/2022 Simvastatin [...] - 03/15/2023 8:22 AM EST Sent to [facility] * Telephone Encounter - Markell Linton MD [...] if applicable: not given Call Back Number: [phone] Call dropped before the end of the [...] Description 03/22/2023 3:20 PM EST Office Visit [facility] [address] [place] [phone] Markell Linton MD [address] [place] [address] 05/09/2023 1:00 PM EST Office Visit Cardiology, [facility] [address] [place] [address] Nabila Fields CRNP [address] [place] [address] 06/08/2023 11:20 AM EST Office Visit [facility] [place] [address] [place] [facility] [place] [address] Chana Stacy PA-C [address] [place] [address] Health Maintenance Due Date Last Done Comments COVID-19 Vaccine (#1) 03/12/1951 Alpha-1 Antitrypsin 1966 Mammogram 1988 Cologuard 1993 Fecal Occult Blood Test 1993 Sigmoidoscopy 1993 Zoster Vaccines (1 of 2) 1998 Pneumococcal Vaccine: 65+ Years (3 - PPSV23 or PCV20) 07/02/2018 11/25/2016, 07/02/2013 *ADVANCE DIRECTIVE NOT ON FILE 10/06/2018 Depression Screening 12/07/2020 12/08/2019 DXA Scan 06/06/2021 06/06/2014 CKD PHOS USE SMARTSET 81766 11/17/2021 11/17/2020 Influenza Vaccine (FLU shot) (#1) 2022 03/12/2013 Albumin/Creatinine Ratio 01/14/2023 01/14/2022 DTaP,Tdap,and Td Vaccines (2 - Td or Tdap) 07/03/2023 07/02/2013 GFR 09/06/2023 03/08/2023, 05/2 06/2022, 04/26/2022, Additional history exists CKD HGB USE SMARTSET 63970 03/08/202403/08, 09/13/2022, 04/26/2022, Additional history exists O2 [...] - (no specific identity) Power of Beater Out Pino Marshall Other - (no specific identity) Power of Beater Out Pari Sullivan Other - (no specific identity) Power of Beater Out Care Teams Dross Puller Relationship Specialty Start Date End Date Duglas Mayo MD [address] [place] [address] PCP - General Family Medicine 09/05/22 documented as of this encounter
--- OUTSIDE RECORDS SUMMARY | 2023-07-16 14:49 | External Medical Summary | Summary of Care ---
Author Name Unknown Organization [facility] Address [address] [place] [address] Phone [phone] Care Team Providers Care Fence Laborer Name Role Phone Duglas Mayo MD Primary Care Provider + [phone] Reason for Visit * Reason Onset Date Comments Order Request 03/14/2023 Encounter Details Date Type Department Care Team (Late st Contact Info) Description 03/14/2023 Telephone [facility] [address] [place] [address] AugustMarkell MD [address] [place] [address] Order Request Allergies Active Allergy [...] Active Additional Information Patient taking differently:50 mg [id number] PRN, Pain, Moderate, Reported on 09/16/2022 Simvastatin [...] - 03/15/2023 3:08 PM EST Faxed to [facility] Patient. * Telephone Encounter - Yashira Fernandes OSA - 03/15/2023 11:11 AM EST [facility] does not accept [employer]. Please send to [facility] [employer] [facility] or [facility] instead. * Telephone Encounter - Tania Aguayo LPN - 03/15/2023 8:22 AM EST Sent to [facility] * Telephone Encounter - Markell Linton MD [...] if applicable: not given Call Back Number: [phone] Call dropped before the end of the [...] Description 03/22/2023 3:20 PM EST Office Visit [facility] [address] [place] [facility] [place] [phone] AugustMarkell MD [address] [place] [facility] [place] [facility] [place] [id number] 05/09/2023 1:00 PM EST Office Visit Cardiology, [facility] [address] [facility] [place] [address] Nabila Fields CRNP [address] [facility] [place] [address] 06/08/2023 11:20 AM EST Office Visit [facility] [address] [place] [facility] [place] [phone] Chana Stacy PA-C [address] [place] [facility] [place] [id number] Health Maintenance Due Date Last Done Comments COVID-19 Vaccine (#1) 03/12/1951 Alpha-1 Antitrypsin 1966 Mammogram 1988 Cologuard 1993 Fecal Occult Blood Test 1993 Sigmoidoscopy 1993 Zoster Vaccines (1 of 2) 1998 Pneumococcal Vaccine: 65+ Years (3 - PPSV23 or PCV20) 07/02/2018 11/25/2016, 07/02/2013 *ADVANCE DIRECTIVE NOT ON FILE 10/06/2018 Depression Screening 12/07/2020 12/08/2019 DXA Scan 06/06/2021 06/06/2014 CKD PHOS USE SMARTSET 01195 11/17/2021 11/17/2020 Influenza Vaccine (FLU shot) (#1) 2022 03/12/2013 Albumin/Creatinine Ratio 01/14/2023 01/14/2022 DTaP,Tdap,and Td Vaccines (2 - Td or Tdap) 07/03/2023 07/02/2013 GFR 09/06/2023 03/08/2023, 08/23, 04/26/2022, Additional history exists CKD HGB USE SMARTSET 27046 03/08/202403/08, 09/13/2022, 04/26/2022, Additional history exists O2 [...] Other - (no specific identity) Power of Cargo Tank Mechanic Pino Rolando Other - (no specific identity) Power of Cargo Tank Mechanic Pari Sullivan Other - (no specific identity) Power of Cargo Tank Mechanic Care Teams Fence Laborer Relationship Specialty Start Date End Date Duglas Mayo MD [address] [place] [address] PCP - General Family Medicine 09/05/22 documented as of this encounter
--- OUTSIDE RECORDS SUMMARY | 2023-07-16 14:49 | External Medical Summary | Summary of Care ---
Author Name Unknown Organization [facility] Address [address] [place] [address] Phone [phone] Care Team Providers Care Gandy Dancer Name Role Phone Duglas Mayo MD Primary Care Provider + [phone] Reason for Visit * Reason Onset Date Comments Order Request 03/14/2023 Encounter Details Date Type Department Care Team (Late st Contact Info) Description 03/14/2023 Telephone [facility] [address] [place] [address] AugustMarkell MD [address] [place] [address] Order Request Allergies Active Allergy [...] Active Additional Information Patient taking differently:50 mg [id number] PRN, Pain, Moderate, Reported on 09/16/2022 Simvastatin [...] not given Attention to Name[facility] Any additional information?: Theresa calling in stating that [facility] does not participate with [employer].Please advise regarding whether they participate with [employer]. * Telephone Encounter - Carole Duenas MED ASSIST - 03/15/2023 3:08 PM EST Faxed to [facility]. * Telephone Encounter - Yashira Fernandes OSA - 03/15/2023 11:11 AM EST [facility] does not accept [employer]. Please send to [facility] [employer] [facility] or [facility] instead. * Telephone Encounter - [...] if applicable: not given Call Back Number: [phone] Call dropped before the end of the [...] Description 03/22/2023 3:20 PM EST Office Visit [facility] [address] [place] [address] AugustMarkell MD [address] [place], [place] [phone] 05/09/2023 1:00 PM EST Office Visit Cardiology, [facility] [address] [facility] [place] [address] Nabila Fields CRNP [address] [facility] [place] [address] 06/08/2023 11:20 AM EST Office Visit [facility] [address] [place] [phone] Chana Stacy PA-C [address] [place], [place] [phone] Health Maintenance Due Date Last Done Comments COVID-19 Vaccine (#1) 03/12/1951 Alpha-1 Antitrypsin 1966 Mammogram 1988 Cologuard 1993 Fecal Occult Blood Test 1993 Sigmoidoscopy 1993 Zoster Vaccines (1 of 2) 1998 Pneumococcal Vaccine: 65+ Years (3 - PPSV23 or PCV20) 07/02/2018 11/25/2016, 07/02/2013 *ADVANCE DIRECTIVE NOT ON FILE 10/06/2018 Depression Screening 12/07/2020 12/08/2019 DXA Scan 06/06/2021 06/06/2014 CKD PHOS USE SMARTSET 12193 11/17/2021 11/17/2020 Influenza Vaccine (FLU shot) (#1) 2022 03/12/2013 Albumin/Creatinine Ratio 01/14/2023 01/14/2022 DTaP,Tdap,and Td Vaccines (2 - Td or Tdap) 07/03/2023 07/02/2013 GFR 09/06/2023 03/08/2023, 0506/2022, 04/26/2022, Additional history exists CKD HGB USE SMARTSET 91121 03/08/202403/08, 09/13/2022, 04/26/2022, Additional history exists O2 [...] Other - (no specific identity) Power of Geology Professor Pino Marshall Other - (no specific identity) Power of Geology Professor Pari Sullivan Other - (no specific identity) Power of Geology Professor Care Teams Gandy Dancer Relationship Specialty Start Date End Date Duglas Mayo MD [address] [place] [address] PCP - General Family Medicine 09/05/22 documented as of this encounter
--- OUTSIDE RECORDS SUMMARY | 2023-07-16 14:49 | External Medical Summary | Summary of Care ---
Author Name Unknown Organization [facility] Address [address] [place] [address] Phone [phone] Care Team Providers Care Rough Rice Grader Name Role Phone Duglas Mayo MD Primary Care Provider [phone] Reason for Visit * Reason Onset Date Comments Medication Refill 03/20/2023 Encounter Created in Error 03/20/2023 Encounter Details Date Type Department Care Team (Late st Contact Info) Description 03/20/2023 Refill [place] [facility] [address] [place] [address] AugustMarkell MD [address] [place] [address] Allergies Active Allergy Reactions Criticality [...] Active Additional Information Patient taking differently:50 mg [id number] PRN, Pain, Moderate, Reported on 09/16/2022 Simvastatin [...] No 06/05/2019 documented as of this encounter Plan of Treatment Upcoming Encounters Date Type Department Care Team (Late st Contact Info) Description 03/22/2023 3:20 PM EST Office Visit [facility] [address] [place] [address] AugustMarkell MD [address] [place] [address] 05/09/2023 1:00 PM EST Office Visit Cardiology, [facility] [address] [place] [address] Nabila Fields CRNP [address] [place] [address] 06/08/2023 11:20 AM EST Office Visit [facility] [place] [address] [place] [address] Chana Stacy PA-C [address] [place], [place] [phone] Health Maintenance Due Date Last Done Comments COVID-19 Vaccine (#1) 03/12/1951 Alpha-1 Antitrypsin 1966 Mammogram 1988 Cologuard 1993 Fecal Occult Blood Test 1993 Sigmoidoscopy 1993 Zoster Vaccines (1 of 2) 1998 Pneumococcal Vaccine: 65+ Years (3 - PPSV23 or PCV20) 07/02/2018 11/25/2016, 07/02/2013 *ADVANCE DIRECTIVE NOT ON FILE 10/06/2018 Depression Screening 12/07/2020 12/08/2019 DXA Scan 06/06/2021 06/06/2014 CKD PHOS USE SMARTSET 77517 11/17/2021 11/17/2020 Influenza Vaccine (FLU shot) (#1) 2022 03/12/2013 Albumin/Creatinine Ratio 01/14/2023 01/14/2022 DTaP,Tdap,and Td Vaccines (2 - Td or Tdap) 07/03/2023 07/02/2013 GFR 09/06/2023 03/08/2023, 0506/2022, 04/26/2022, Additional history exists CKD HGB USE SMARTSET 03365 03/08/202403/08, 09/13/2022, 04/26/2022, Additional history exists O2 [...] - (no specific identity) Power of Supervisor Home Restoration Service Pino Marshall Other - (no specific identity) Power of Supervisor Home [employer] Pari Sullivan Other - (no specific identity) Power of Supervisor Home Restoration Service Care Teams Rough Rice Grader Relationship Specialty Start Date End Date Duglas Mayo MD [address] [place] [address] PCP - General Family Medicine 09/05/22 documented as of this encounter
--- OUTSIDE RECORDS SUMMARY | 2023-07-16 14:49 | External Medical Summary | Summary of Care ---
Author Name Unknown Organization [facility] Address [address] [place] [address] Phone [phone] Care Team Providers Care Mattress Filling Machine Tender Name Role Phone Duglas Mayo MD Primary Care Provider + [phone] Reason for Visit * Reason Onset Date Comments Order Request 03/14/2023 Encounter Details Date Type Department Care Team (Late st Contact Info) Description 03/14/2023 Telephone [facility] [address] [place] [address] AugustMarkell MD [address] [place] [address] Order Request Allergies Active Allergy [...] Active Additional Information Patient taking differently:50 mg [id number] PRN, Pain, Moderate, Reported on 09/16/2022 Simvastatin [...] given Attention to Name/Company: [employer], [place] Any additional information?: Theresa calling in stating that [facility] does not participate with [employer].Please advise regarding whether they participate with [employer]. * Telephone Encounter - Carole Duenas MED ASSIST - 03/15/2023 3:08 PM EST Faxed to [facility] Patient. * Telephone Encounter - Yashira Fernandes OSA - 03/15/2023 11:11 AM EST [facility] does not accept [employer]. Please send to [facility] or [facility] Patient instead. * Telephone Encounter - Tania Aguayo LPN - 03/15/2023 8:22 AM EST Sent to [facility] * Telephone Encounter - Markell Linton [...] if applicable: not given Call Back Number: [phone] Call dropped before the end of the [...] Description 03/22/2023 3:20 PM EST Office Visit [facility] [address] [facility] [phone] AugustMarkell MD [address] [facility] [phone] 05/09/2023 1:00 PM EST Office Visit [facility] [place] [address] Nabila Fields CRNP [address] [place] [address] 06/08/2023 11:20 AM EST Office Visit [facility] [address] [facility] [phone] Chana Stacy PA-C [address] [facility] [phone] Health Maintenance Due Date Last Done Comments COVID-19 Vaccine (#1) 03/12/1951 Alpha-1 Antitrypsin 1966 Mammogram 1988 Cologuard 1993 Fecal Occult Blood Test 1993 Sigmoidoscopy 1993 Zoster Vaccines (1 of 2) 1998 Pneumococcal Vaccine: 65+ Years (3 - PPSV23 or PCV20) 07/02/2018 11/25/2016, 07/02/2013 *ADVANCE DIRECTIVE NOT ON FILE 10/06/2018 Depression Screening 12/07/2020 12/08/2019 DXA Scan 06/06/2021 06/06/2014 CKD PHOS USE SMARTSET 65459 11/17/2021 11/17/2020 Influenza Vaccine (FLU shot) (#1) 2022 03/12/2013 Albumin/Creatinine Ratio 01/14/2023 01/14/2022 DTaP,Tdap,and Td Vaccines (2 - Td or Tdap) 07/03/2023 07/02/2013 GFR 09/06/2023 03/08/2023, 05/2 06/2022, 04/26/2022, Additional history exists CKD HGB USE SMARTSET 92446 03/08/202403/08, 09/13/2022, 04/26/2022, Additional history exists O2 [...] Name Relationship Healthcare Agent Relationship Communication Theresa Peraltaon Other - (no specific identity) Power of Floor Tech Pino Rolando Other - (no specific identity) Power of Floor Tech Pari Sullivan Other - (no specific identity) Power of Floor Tech Care Teams Mattress Filling Machine Tender Relationship Specialty Start Date End Date Duglas Mayo MD [address] [place] [address] PCP - General Family Medicine 09/05/22 documented as of this encounter
--- OUTSIDE RECORDS SUMMARY | 2023-07-16 14:49 | External Medical Summary | Summary of Care ---
Author Name Unknown Organization [facility] Address [address] [place] [address] Phone [phone] Care Team Providers Care Carbonation Equipment Operator Name Role Phone Duglas Mayo MD Primary Care Provider [phone] Reason for Visit * Reason Onset Date Comments Medication Refill 03/20/2023 Encounter Details Date Type Department Care Team (Late st Contact Info) Description 03/20/[address] [facility] [address] [place] [address] AugustEleuterio MD [address] [place] [address] Encounter for long-term (current) use of medications*; Esophageal reflux Allergies Active Allergy Reactions Criticality Noted Date [...] s:COPD, group C, by GOLD 2017 classification ([facility] [...] , group C, by GOLD 2017 classification ([facility]) Use to nebulize medicaitons 1 Kit 1 3 Active traMADol HCl 50 MG Oral Tablet (Ultram)Indications :Bilateral primary osteoarthritis of knee Take 1 Tablet by mouth every 6 hours as needed for Pain, Moderate. 30 Tablet 0 3 Active Additional Information Patient taking differently:50 mg [id number] PRN, Pain, Moderate, Reported on 09/16/2022 Levothyroxine [...] before bedtime. 180 Tablet 1 3 Active Pantoprazole Sodium 40 MG Oral [...] Miscellaneous Notes * Telephone Encounter - Keenan Rust, [facility] - 03/20/2023 11:52 AM ESTSigned Prescriptions: Disp Refills Pantoprazole Sodium 40 MG Oral Tablet Idania*180 Ta*1 Sig: Take 1 Tablet by mouth in the morning and 1 Tablet before bedtime.Authorizing Provider: ELEUTERIO LOPEZ User: KEENAN RUST * Telephone Encounter - Keenan Rust [facility] - 03/20/2023 11:52 AM EST Per refill protocol patient needs magnesium and vitamin B-12 labs on file within the past 2 years while using PPIs. Lab work ordered. Patient may obtain with next routine labs. Thank You, Keenan Rust [facility] Clinical Pharmacist [facility] ([facility]) (formerly Telepharmacy) [phone] 03/20/2023, 11:52 AM * Telephone Encounter - Gregor Hills, water treatment specialist - 03/20/2023 11:41 AM EST Pt is out of medication. Did you pend patient's preferred pharmacy and medication before forwarding?yes Pharmacy: [id number] [address] [facility] Pending Prescriptions: Disp Refills Pantoprazole Sodium 40 MG Oral Tablet Del*180 Ta*1 Sig: Take 1 Tablet by mouth in the morning and 1 Tablet before bedtime. Last Visit: 03/08/2023 (in office), 04/21/2022 (telemedicine) Next Visit: 03/22/2023 If no future appointments scheduled, and last appointment is greater than a year ago, please schedule patient for a follow-up appointment Last date the medication was ordered: 05/25/2022 Is this request for a controlled substance?No [...] Description 03/22/2023 3:20 PM EST [facility] [place] [address] [facility] [phone] AugustEleuterio MD [address] [facility] [address] 05/09/2023 1:00 PM EST Office Visit Cardiology, [facility] [address] [facility] [place] [address] Nabila Fields CRNP [address] [facility] [place] [address] 06/08/2023 11:20 AM EST Office Visit [place] [address] [facility] [phone] Chana Stacy PA-C [address] [facility] [place] [address] Scheduled Orders Name Type Priority Associated Diagnoses Orde r Schedule VITAMIN B12 Lab Routine Encounter for long-term (current) use of medications Expected: 03/20/2023 (Approximate), Expires: 03/20/2024 MAGNESIUM Lab Routine Encounter for long-term (current) use of medications Expected: 03/20/2023 (Approximate), Expires: 03/20/2024 PHOSPHORUS Lab Routine Encounter for long-term (current) use of medications Expected: 03/20/2023 (Approximate), Expires: 03/20/2024 ALBUMIN / CREATININE RATIO, URINE Lab Routine Encounter for long-term (current) use of medications Expected: 03/20/2023 (Approximate), Expires: 03/20/2024 Health Maintenance Due Date Last Done Comments COVID-19 Vaccine (#1) 03/12/1951 Alpha-1 Antitrypsin 1966 Mammogram 1988 Cologuard 1993 Fecal Occult Blood Test 1993 Sigmoidoscopy 1993 Zoster Vaccines (1 of 2) 1998 Pneumococcal Vaccine: 65+ Years (3 - PPSV23 or PCV20) 07/02/2018 11/25/2016, 07/02/2013 *ADVANCE DIRECTIVE NOT ON FILE 10/06/2018 Depression Screening 12/07/2020 12/08/2019 DXA Scan 06/06/2021 06/06/2014 CKD PHOS USE SMARTSET 45965 11/17/2021 11/17/2020 Influenza Vaccine (FLU shot) (#1) 2022 03/12/2013 Albumin/Creatinine Ratio 01/14/2023 01/14/2022 DTaP,Tdap,and Td Vaccines (2 - Td or Tdap) 07/03/2023 07/02/2013 GFR 09/06/2023 03/08/2023, 05/2 06/2022, 04/26/2022, Additional history exists CKD HGB USE SMARTSET 51218 03/08/202403/08, 09/13/2022, 04/26/2022, Additional history exists O2 [...] this encounter Visit Diagnoses Diagnosis Encounter for long-term (current) use of medications- Primary Encounter for long-term (current) use of other medications Esophageal reflux documented in this encounter Advance Directives Latest [...] Other - (no specific identity) Power of Water Control Supervisor Pino Marshall Other - (no specific identity) Power of Water Control Supervisor Pari Sullivan Other - (no specific identity) Power of Water Control Supervisor Care Teams Carbonation Equipment Operator Relationship Specialty Start Date End Date Duglas Mayo MD [address] [place], [place] [phone] PCP - General Family Medicine 09/05/22 documented as of this encounter
--- OUTSIDE RECORDS SUMMARY | 2023-07-16 14:49 | External Medical Summary | Summary of Care ---
Author Name Unknown Organization [facility] Address [address] [place] [address] Phone [phone] Care Team Providers Care Shopping Investigator Name Role Phone Duglas Mayo MD Primary Care Provider + [phone] Reason for Visit * Reason Onset Date Comments Order Request 03/14/2023 Encounter Details Date Type Department Care Team (Late st Contact Info) Description 03/14/2023 Telephone [facility] [address] [place] [address] AugustMarkell MD [address] [place] [address] Order Request Allergies Active [...] s:COPD, group C, by GOLD 2017 classification ([facility] [...] , group C, by GOLD 2017 classification ([facility]) Use to nebulize medicaitons 1 Kit 1 3 Active traMADol HCl 50 MG Oral Tablet (Ultram)Indications :Bilateral primary osteoarthritis of knee Take 1 Tablet by mouth every 6 hours as needed for Pain, Moderate. 30 Tablet 0 3 Active Additional Information Patient taking differently:50 mg [id number] PRN, Pain, Moderate, Reported on 09/16/2022 Levothyroxine [...] Pt's sister, Theresa, calling. She spoke w/ [employer] (pt's insurance) and was advised that pt is eligible for a semi-electric medical bed. The order MUST have that specific wording, or they will not cover it. [employer] advised Theresa that the order can be sent to [facility]. Their fax number is [phone]. Pls call Theresa once this has been done, so she can f/u w/ [facility]. Thx. * Telephone Encounter - Carole Duenas MED ASSIST - 03/20/2023 11:23 AM EST Faxed to [facility] * Telephone Encounter - Isrrael Hay OSA - 03/20/2023 10:49 AM EST Caller requesting the following information to be faxed: Name/Company of caller: Theresa Information requested to be faxed: order for hospital bed Fax number: not given Attention to Name/Company: [facility], [place] Any additional information?: Theresa calling in stating that [facility] does not participate with [employer].Please advise regarding whether they participate with [employer]. * Telephone Encounter - Carole Duenas MED ASSIST - 03/15/2023 3:08 PM EST Faxed to [facility]. * Telephone Encounter - Yashira Fernandes OSA - 03/15/2023 11:11 AM EST [facility] does not accept [employer]. Please send to [facility] or [facility] instead. * Telephone Encounter - [...] if applicable: not given Call Back Number: [phone] Call dropped before the end of the [...] Description 03/22/2023 3:20 PM EST Office Visit [facility] [address] [place] [facility] [place] [place] [address] Markell Linton MD [address] [place] [address] 05/09/2023 1:00 PM EST Office Visit Cardiology, [facility] [address] [place] [address] Nabila Fields CRNP [address] [place] [address] 06/08/2023 11:20 AM EST Office Visit Family [facility] [place] [address] [place] [phone] Chana Stacy PA-C [address] [place] [address] Health Maintenance Due Date Last Done Comments COVID-19 Vaccine (#1) 03/12/1951 Alpha-1 Antitrypsin 1966 Mammogram 1988 Cologuard 1993 Fecal Occult Blood Test 1993 Sigmoidoscopy 1993 Zoster Vaccines (1 of 2) 1998 Pneumococcal Vaccine: 65+ Years (3 - PPSV23 or PCV20) 07/02/2018 11/25/2016, 07/02/2013 *ADVANCE DIRECTIVE NOT ON FILE 10/06/2018 Depression Screening 12/07/2020 12/08/2019 DXA Scan 06/06/2021 06/06/2014 CKD PHOS USE SMARTSET 78636 11/17/2021 11/17/2020 Influenza Vaccine (FLU shot) (#1) 2022 03/12/2013 Albumin/Creatinine Ratio 01/14/2023 01/14/2022 DTaP,Tdap,and Td Vaccines (2 - Td or Tdap) 07/03/2023 07/02/2013 GFR 09/06/2023 03/08/2023, 0506/2022, 04/26/2022, Additional history exists CKD HGB USE SMARTSET 48166 03/08/202403/08, 09/13/2022, 04/26/2022, Additional history exists O2 ASSESSMENT COMPLETED IN PAST YEAR FOR COPD 03/08/2024 03/08/2023 TSH 03/08/2024 03/08/2023, 07/0 10/2020, 05/09/2019, Additional history exists Lipid Panel 04/26/2027 04/26/2022, 0 10/2020, 11/25/2016, [...] Other - (no specific identity) Power of Fiscal Accounting Clerk Pino Rolando Other - (no specific identity) Power of Fiscal Accounting Clerk Pari Sullivan Other - (no specific identity) Power of Fiscal Accounting Clerk Care Teams Shopping Investigator Relationship Specialty Start Date End Date Duglas Mayo MD [address] [place] [address] PCP - General Family Medicine 09/05/22 documented as of this encounter
--- OUTSIDE RECORDS SUMMARY | 2023-07-16 14:49 | External Medical Summary | Summary of Care ---
Author Name Unknown Organization [facility] Address [address] [place] [address] Phone [phone] Care Team Providers Care Ovens Supervisor Name Role Phone Duglas Mayo MD Primary Care Provider + [phone] Reason for Visit * Reason Onset Date Comments Order Request 03/14/2023 Encounter Details Date Type Department Care Team (Late st Contact Info) Description 03/14/2023 Telephone [facility] [address] [place] [address] AugustMarkell MD [address] [place] [address] Order Request Allergies Active Allergy [...] KitIndications:COPD, group C, by GOLD 2017 classification ([facility]) Use to nebulize medicaitons 1 Kit 1 05/25/2022 Active traMADol HCl 50 MG Oral Tablet (Ultram)Indications: Bilateral primary osteoarthritis of knee Take 1 Tablet by mouth every 6 hours as needed for Pain, Moderate. 30 Tablet 0 06/06/2022 Active Additional Information Patient taking differently:50 mg [id number] PRN, Pain, Moderate, Reported on 09/16/2022 Simvastatin [...] Fernandes OSA - 03/15/2023 11:11 AM EST [facility] does not accept [employer]. Please send to [facility] or [facility] Patient instead. * Telephone Encounter - Tania Aguayo LPN - 03/15/2023 8:22 AM EST Sent to [facility] * Telephone Encounter - Markell [...] if applicable: not given Call Back Number: [phone] Call dropped before the end of the [...] Description 03/22/2023 3:20 PM EST [facility] [address] [place] [facility] [place] [address] Markell Linton MD [address] [place] [address] 05/09/2023 1:00 PM EST Office Visit Cardiology, [facility] [address] [place] [address] Nabila Fields CRNP [address] [place] [address] 06/08/2023 11:20 AM EST Office Visit Family [facility] [place] [address] [facility] [place] [phone] Chana Stacy PA-C [address] [place] [address] Health Maintenance Due Date Last Done Comments COVID-19 Vaccine (#1) 03/12/1951 Alpha-1 Antitrypsin 1966 Mammogram 1988 Cologuard 1993 Fecal Occult Blood Test 1993 Sigmoidoscopy 1993 Zoster Vaccines (1 of 2) 1998 Pneumococcal Vaccine: 65+ Years (3 - PPSV23 or PCV20) 07/02/2018 11/25/2016, 07/02/2013 *ADVANCE DIRECTIVE NOT ON FILE 10/06/2018 Depression Screening 12/07/2020 12/08/2019 DXA Scan 06/06/2021 06/06/2014 CKD PHOS USE SMARTSET 84917 11/17/2021 11/17/2020 Influenza Vaccine (FLU shot) (#1) 2022 03/12/2013 Albumin/Creatinine Ratio 01/14/2023 01/14/2022 DTaP,Tdap,and Td Vaccines (2 - Td or Tdap) 07/03/2023 07/02/2013 GFR 09/06/2023 03/08/2023, 08/23, 04/26/2022, Additional history exists CKD HGB USE SMARTSET 84190 03/08/202403/08, 09/13/2022, 04/26/2022, Additional history exists O2 [...] Other - (no specific identity) Power of Bottom Saw Operator Pino Rolando Other - (no specific identity) Power of Bottom Saw Operator Pari Sullivan Other - (no specific identity) Power of Bottom Saw Operator Care Teams Ovens Supervisor Relationship Specialty Start Date End Date Duglas Mayo MD [address] [place] [address] PCP - General Family Medicine 09/05/22 documented as of this encounter
--- OUTSIDE RECORDS SUMMARY | 2023-07-16 14:50 | External Medical Summary | Summary of Care ---
Author Name Unknown Organization [facility] Address [address] [place] [address] Phone [phone] Care Team Providers Care Gym Manager Name Role Phone Duglas Mayo MD Primary Care Provider + [phone] Reason for Visit * Reason Comments Outpatient Testing Encounter Details Date Type Department Care Team (Late st Contact Info) Description 03/08/2023 9:50 AM EST Laboratory [facility], [place] [address] [place] [phone] [place] [address] [place] [address] COPD, group C, by GOLD 2017 classification ([facility]); Asthma with irreversible airway obstruction, unspecified asthma severity, uncomplicated ([facility]); Multifocal pneumonia; Hypoxia; Encounter for long-term (current) use of medications; MyCode Research Other*[id number]; Hypothyroidism, unspecified type; PAULETTE (acute kidney injury) ([facility]); Macrocytic anemia Allergies Active Allergy Reactions Criticality Noted Date Comments Methylprednisolone Sodium Succ 12/06 Dog Dander Low 03/20/2019 Other reaction(s): Sneezing Food (See Comments) 02/23/2018 Duck eggs Swelling Pollen 08/25/2015 Nystatin 01/17/2019 Allergic reaction Pollen Extract 03/20/2019 Other reaction(s): HAYFEVER documented as of this encounter (statuses as of 03/12/2023) Medications Medication Sig Dispensed Refills Start Date [...] FOR WHEEZING 54 g 1 3 Active Pantoprazole Sodium 40 MG Oral Tablet Delayed Release (Protonix)Indicatio ns:Esophageal reflux Take 1 Tablet by mouth in the morning and 1 Tablet before bedtime. 180 Tablet 1 3 Active Nebulizer/Tubing/Mo uthpiece KitIndications:COPD , group C, by GOLD 2017 classification ([facility]) Use to nebulize medicaitons 1 Kit 1 3 Active traMADol HCl 50 MG Oral Tablet (Ultram)Indications :Bilateral primary osteoarthritis of knee Take 1 Tablet by mouth every 6 hours as needed for Pain, Moderate. 30 Tablet 0 3 Active Additional Information Patient taking differently:50 mg [id number] PRN, Pain, Moderate, Reported on 09/16/2022 Simvastatin 10 MG Oral Tablet (Zocor) TAKE 1 TABLET BY MOUTH EVERYDAY AT BEDTIME 90 Tablet 1 3 Active Levothyroxine Sodium 25 MCG Oral Tablet (Levoxyl)Indication [...] Oxide 400 MG Oral TabletIndications:H ypomagnesemia Take by mouth 1 Tablet in the morning AND 1 Tablet before bedtime. 180 Tablet 1 2 03/10/20 23 Discontinu ed(Refill) documented as of this encounter (statuses as of 03/12/2023) Active Problems Problem Noted Date Diagnosed Date [...] as of this encounter (statuses as of 03/12/2023) Resolved Problems Problem Noted Date Diagnosed Date [...] as of this encounter (statuses as of 03/12/2023) Immunizations Name Administration Dates Next Due Pneumococcal [...] Addendum Note - Eleuterio Lopez MD - 03/12/2023 8:42 PM ESTAddended by: ELEUTERIO LOPEZ on: 03/12/2023 08:42 PM Modules accepted: Orders * Result Encounter Note - Eleuterio Lopez MD - 03/12/2023 8:41 PM EST See separate note from same date. Eleuterio Lopez MD * Result Encounter Note - Eleuterio Lopez MD - 03/12/2023 8:41 PM EST Lab work reviewed. Creatinine 1.9. Unsure if this is new baseline. Recommend repeat CMP in 2 weeks to monitor renal function. Order placed. Rest of lab work stable. Can restart iron as discussed previously. Continue 50 mcg levothyroxine daily as TSH is at goal. Eleuterio Lopez MD documented in this encounter Plan of Treatment Upcoming Encounters Date Type Department Care Team (Late st Contact Info) Description 05/09/2023 1:00 PM EST Office Visit Cardiology, [facility] [address] [facility] [place] [address] Nabila Fields CRNP [address] [place] [address] 06/08/2023 11:20 AM EST Office Visit [facility] [address] [place] [phone] Chana Stacy PA-C [address] [place] [address] Scheduled Orders Name Type Priority Associated Diagnoses Orde r Schedule COMPREHENSIVE METABOLIC PANEL Lab Routine PAULETTE (acute kidney injury) (HCC) Expected: 03/12/2023 (Approximate), Expires: 03/11/2024 Health Maintenance Due Date Last Done Comments COVID-19 Vaccine (#1) 03/12/1951 Alpha-1 Antitrypsin 1966 Mammogram 1988 Cologuard 1993 Fecal Occult Blood Test 1993 Sigmoidoscopy 1993 Zoster Vaccines (1 of 2) 1998 Pneumococcal Vaccine: 65+ Years (3 - PPSV23 or PCV20) 07/02/2018 11/25/2016, 07/02/2013 *ADVANCE DIRECTIVE NOT ON FILE 10/06/2018 Depression Screening 12/07/2020 12/08/2019 DXA Scan 06/06/2021 06/06/2014 CKD PHOS USE SMARTSET 74608 11/17/2021 11/17/2020 Influenza Vaccine (FLU shot) (#1) 2022 03/12/2013 Albumin/Creatinine Ratio 01/14/2023 01/14/2022 DTaP,Tdap,and Td Vaccines (2 - Td or Tdap) 07/03/2023 07/02/2013 GFR 09/06/2023 03/08/2023, 0506/2022, 04/26/2022, Additional history exists CKD HGB USE SMARTSET 16287 03/08/202403/08, 09/13/2022, 04/26/2022, Additional history exists O2 [...] Procedure Name Priority Date/Time Associated Diagnosis Comments MYCODE SST1 Routine 03/08/2023 9:47 AM EST MyCode Research Other*[id number] MYCODE INITIAL ADULT-2SST Routine 03/08/2023 9:47 AM EST My[employer] Research Other*[id number] MYCODE SUBSEQUENT ADULT Routine 03/08/2023 9:47 AM EST [employer] Research Other*[id number] TSH WITH FREE T4 IF INDICATED Routine 03/08/2023 9:47 AM EST Encounter for long-term (current) use of medications COMPREHENSIVE METABOLIC PANEL Routine 03/08/2023 9:47 AM EST PAULETTE (acute kidney injury) (HCC) IRON SCREEN, INCLUDING TIBC Routine 03/08/2023 9:47 AM EST Encounter for long-term (current) use of medications CBC Routine 03/08/2023 9:47 AM EST Macrocytic anemia FERRITIN Routine 03/08/2023 9:47 AM EST Encounter for long-term (current) use of medications documented in this encounter Results * MYCODE SST2 (03/08/2023 9:47 AM EST) MyCode Specimen Freezing of extracted DNA, whole blood and/or serum. 03/09/2023 9:01 AM EST LAB[facility]ATORY [facility] Blood Venous blood specimen / Unknown Venipuncture / Unknown 03/08/2023 9:47 AM EST 03/08/2023 9:52 AM EST Catherine [facility] [employer] CHRA LAB BLOOD ORDERAB LES LAB[facility]AT[facility] [address] [place] [address] * MYCODE SST1 (03/08/2023 9:47 AM EST) Pathologist [facility] MyCode Specimen Freezing of extracted DNA, whole blood and/or serum. 03/09/2023 9:01 AM EST [facility] Blood Venous blood specimen / Unknown Venipuncture / Unknown 03/08/2023 9:47 AM EST 03/08/2023 9:52 AM EST Catherine [facility] [employer] [facility] LAB BLOOD ORDERAB LES LABORATORY C [address] [place] [address] * (ABNORMAL) CBC (03/08/2023 9:47 AM EST) [...] 9:47 AM EST 03/08/2023 9:52 AM EST Eleuterio Lopez MD LAB BLOOD ORDERABLES LABORATORY [facility] [address] [place] [address] * (ABNORMAL) COMPREHENSIVE METABOLIC PANEL (03/08/2023 9:47 [...] 9:47 AM EST 03/08/2023 9:52 AM EST Eleuterio Lopez MD LAB BLOOD ORDERABLES LABORATORY [facility] [address] [place] [address] * IRON SCREEN, INCLUDING TIBC (03/08/2023 9:47 AM EST) Iron 58 33 - 151 ug/dL 03/08/2023 5:57 PM EST [facility] Iron Binding Capacity 285 250 - 425 ug/dL 03/08/2023 5:57 PM EST [facility] Transferrin Saturation Percent 20 15 - 55 % 03/08/2023 5:57 PM EST LABORATORY [facility] Blood Venous blood specimen / Unknown Venipuncture / Unknown 03/08/2023 9:47 AM EST 03/08/2023 9:52 AM EST Donn Yan [facility] LAB BLOOD ORDE RED LABORATORY [facility] [address] [place] [address] * (ABNORMAL) FERRITIN (03/08/2023 9:47 AM EST) Ferritin 240(H) 13 - 150 ng/mL 03/08/2023 8:10 PM EST LABORATORY [facility] Comment:Postmenopausal women have higher ferritin levels than pre-menopausal women. The above reference interval is based on pre-menopausal women. Blood Venous blood specimen / Unknown Venipuncture / Unknown 03/08/2023 9:47 AM EST 03/08/2023 9:52 AM EST Donn Yan [facility] LAB BLOOD ORDE RED Performing Organization Address City/[facility]/ZIP Co de Phone Number LABORATORY [facility] [address] [place] [address] * TSH WITH FREE T4 IF INDICATED (03/08/2023 9:47 AM EST) TSH 3.58 0.27 - 4.20 uIU/mL 03/08/2023 8:10 PM EST LABORATORY [facility] Blood Venous blood specimen / Unknown Venipuncture / Unknown 03/08/2023 9:47 AM EST 03/08/2023 9:52 AM EST Donn Yan [facility] LAB BLOOD ORDE RED LABORATORY [facility] [address] [place] [address] documented in this encounter Visit Diagnoses Diagnosis COPD, group C, by GOLD 2017 classification ([facility]) Asthma with irreversible airway obstruction, unspecified asthma severity, uncomplicated (HCC) Multifocal pneumonia Hypoxia Hypoxemia Encounter for long-term (current) use of medications Encounter for long-term (current) use of other medications MyCode Research Other*[id number] Hypothyroidism, unspecified type PAULETTE (acute kidney injury) (HCC) Acute kidney failure, unspecified Macrocytic anemia Unspecified deficiency anemia documented in this encounter Advance Directives Latest [...] Other - (no specific identity) Power of Oxyacetylene Welder Pino Rolando Other - (no specific identity) Power of Oxyacetylene Welder Pari Sullivan Other - (no specific identity) Power of Oxyacetylene Welder Care Teams Gym Manager Relationship Specialty Start Date End Date Duglas Mayo MD [address] [place] [address] PCP - General Family Medicine 09/05/22 documented as of this encounter
--- OUTSIDE RECORDS SUMMARY | 2023-07-16 14:50 | External Medical Summary | Summary of Care ---
Author Name Unknown Organization [facility] Address [address] [place] [address] Phone [phone] Care Team Providers Care Community Health Promoter Name Role Phone Duglas Mayo MD Primary Care Provider + [phone] Reason for Visit * Reason Onset Date Comments Order Request 03/09/2023 Encounter Details Date Type Department Care Team (Late st Contact Info) Description 03/09/2023 Telephone [facility] [address] [place] [address] AugustMarkell MD [address] [place] [address] Order Request Allergies Active Allergy [...] s:COPD, group C, by GOLD 2017 classification ([facility] [...] , group C, by GOLD 2017 classification ([facility]) Use to nebulize medicaitons 1 Kit 1 3 Active traMADol HCl 50 MG Oral Tablet (Ultram)Indications :Bilateral primary osteoarthritis of knee Take 1 Tablet by mouth every 6 hours as needed for Pain, Moderate. 30 Tablet 0 3 Active Additional Information Patient taking differently:50 mg [id number] PRN, Pain, Moderate, Reported on 09/16/2022 Simvastatin [...] Telephone Encounter - Markell Linton MD - 03/12/2023 9:03 PM EST Agreed patient needs OV for walk study to see if she would qualify for oxygen. Markell Linton MD * Telephone Encounter - Adam Fischer MD - 03/10/2023 4:44 PM EST We would still need documentation of need for O2. Still need re-eval or review with Dr Linton or Chana. * Telephone Encounter - Nikki Navarro CCMA - 03/10/2023 2:09 PM EST Please advise as below. Thank you. * Telephone Encounter - Ritika Diaz OSA - 03/10/2023 1:16 PM EST Theresa calling on behalf of patient- informed her of previous message. Patient has difficulty when up and walking around- does not have any difficulty when in wheelchair or not moving around. * Telephone Encounter - Adam Fischer MD - 03/10/2023 8:25 AM EST I have not seen patient in 6 years. Looks like she typically sees Chana although saw Dr Linton for hospital follow up. Suggest reviewingwith one of them. She must not have qualified for home O2 on leaving [facility] or she would have been sent home with it and her O2 sat at visit with Dr Linton was 96%. If she "feels as though she is going to have a heart attack and can't breath" as previous message suggests, she needs urgent re-eval. This would indicate a definite change since visit 03/08/23 and she may be back in CHF. Suggest ED eval. Also, we would need documentation of need for O2 for her to get it - and I don't see that we have adocumented need. If she qualified for O2 on leaving the hospital and refused it, we would need to get documentation of the study done prior to discharge. I don't see the [facility] or [facility] discharge summary in [facility]. We do have notes from [facility] and her sats there were good - again, suggesting a change in status and need for eval. * Telephone Encounter - Lydia May LPN - 03/09/2023 1:30 PM EST Pt is requesting an order for oxygen. She was on oxygen when she was in [facility]. She came home yesterday and feels she needs the oxygen because she feels faint and like she is going to have a heart attack because she can't breath. Pt states she would like it today. Please advise. * Telephone Encounter - Adam Fischer MD - 03/09/2023 12:39 PM EST What is the order for? * Telephone Encounter - Winifred Rene CPhT - 03/09/2023 12:17 PM EST Requesting high priority. An order was requested for this patient. Name of Requestor: Celia Marshall Order Request: oxygen tanks - ROUTE TO CLINIC NURSE POOL Diagnosis/Reason for Request: pt does not have Does the order need to be faxed somewhere? If so, where?: [facility] in [place] Fax Number, if applicable: n/a Call Back Number: [phone] Thank you, Winifred Rene Marketing/Sales Person [facility] ([facility]) 03/09/2023, 12:17 PM documented in this encounter Plan of Treatment Upcoming Encounters Date Type Department Care Team (Late st Contact Info) Description 05/09/2023 1:00 PM EST Office Visit Cardiology, [facility] [address] [facility] [place] [address] Nabila Fields CRNP [address] [facility] [place] [address] 06/08/2023 11:20 AM EST Office Visit Family [facility] [address] [place] [phone] Chana Stacy PA-C [address] [place] [address] Health Maintenance Due Date Last Done Comments COVID-19 Vaccine (#1) 03/12/1951 Alpha-1 Antitrypsin 1966 Mammogram 1988 Cologuard 1993 Fecal Occult Blood Test 1993 Sigmoidoscopy 1993 Zoster Vaccines (1 of 2) 1998 Pneumococcal Vaccine: 65+ Years (3 - PPSV23 or PCV20) 07/02/2018 11/25/2016, 07/02/2013 *ADVANCE DIRECTIVE NOT ON FILE 10/06/2018 Depression Screening 12/07/2020 12/08/2019 DXA Scan 06/06/2021 06/06/2014 CKD PHOS USE SMARTSET 54024 11/17/2021 11/17/2020 Influenza Vaccine (FLU shot) (#1) 2022 03/12/2013 Albumin/Creatinine Ratio 01/14/2023 01/14/2022 DTaP,Tdap,and Td Vaccines (2 - Td or Tdap) 07/03/2023 07/02/2013 GFR 09/06/2023 03/08/2023, 08/23, 04/26/2022, Additional history exists CKD HGB USE SMARTSET 75182 03/08/202403/08, 09/13/2022, 04/26/2022, Additional history exists O2 [...] Other - (no specific identity) Power of Addictions Therapist Pino Peraltaon Other - (no specific identity) Power of Addictions Therapist Pari Sullivan Other - (no specific identity) Power of Addictions Therapist Care Teams Community Health Promoter Relationship Specialty Start Date End Date Duglas Mayo MD [address], [place] [id number] PCP - General Family Medicine 09/05/22 documented as of this encounter
--- OUTSIDE RECORDS SUMMARY | 2023-07-16 14:50 | External Medical Summary | Summary of Care ---
Author Name Unknown Organization [facility] Address [address] [place] [address] Phone [phone] Care Team Providers Care Stand Up Comedian Name Role Phone Duglas Mayo MD Primary Care Provider + [phone] Reason for Visit * Reason Onset Date Comments Medication Refill 03/10/2023 Encounter Details Date Type Department Care Team (Late st Contact Info) Description 03/10/2023 Refill [place] [address] [place] [phone] AugustEleuterio MD [address] [place] [address] Hypomagnesemia Allergies Active Allergy Reactions Criticality Noted Date [...] Active Additional Information Patient taking differently:50 mg [id number] PRN, Pain, Moderate, Reported on 09/16/2022 Simvastatin [...] before bedtime. 180 Tablet 1 3 Active Magnesium Oxide 400 MG Oral [...] Telephone Encounter - Eleuterio Lopez MD - 03/12/2023 7:47 PM ESTSigned Prescriptions: Disp Refills Magnesium Oxide 400 MG Oral Tablet 180 Ta*1 Sig: Take 1 Tablet by mouth in the morning and 1 Tablet before bedtime. Authorizing Provider: ELEUTERIO LOPEZ * Telephone Encounter - María Ugarte, activities aide - 03/10/2023 4:56 PM EST Did you pend patient's preferred pharmacy and medication before forwarding?yes Pharmacy: [id number] Pending Prescriptions: Disp Refills Magnesium Oxide 400 MG Oral Tablet 180 Ta*1 Sig: Take 1 Tablet by mouth in the morning and 1 Tablet before bedtime. Last Visit: 03/08/2023 (in office), 04/21/2022 (telemedicine) Next Visit: 06/08/2023 [...] 05/09/2023 1:00 PM EST Office Visit Cardiology, [facility] [address] [address] Nabila Fields CRNP [address] [place] [address] 06/08/2023 11:20 AM EST Office Visit [address] [place] [phone] Chana Stacy PA-C [address] [place] [facility] [place] [address] Health Maintenance Due Date Last Done Comments COVID-19 Vaccine (#1) 03/12/1951 Alpha-1 Antitrypsin 1966 Mammogram 1988 Cologuard 1993 Fecal Occult Blood Test 1993 Sigmoidoscopy 1993 Zoster Vaccines (1 of 2) 1998 Pneumococcal Vaccine: 65+ Years (3 - PPSV23 or PCV20) 07/02/2018 11/25/2016, 07/02/2013 *ADVANCE DIRECTIVE NOT ON FILE 10/06/2018 Depression Screening 12/07/2020 12/08/2019 DXA Scan 06/06/2021 06/06/2014 CKD PHOS USE SMARTSET 13427 11/17/2021 11/17/2020 Influenza Vaccine (FLU shot) (#1) 2022 03/12/2013 Albumin/Creatinine Ratio 01/14/2023 01/14/2022 DTaP,Tdap,and Td Vaccines (2 - Td or Tdap) 07/03/2023 07/02/2013 GFR 09/06/2023 03/08/2023, 08/23, 04/26/2022, Additional history exists CKD HGB USE SMARTSET 09961 03/08/202403/08, 09/13/2022, 04/26/2022, Additional history exists O2 [...] as of this encounter Visit Diagnoses Diagnosis Hypomagnesemia Disorders of magnesium metabolism documented in this encounter Advance Directives Latest [...] Other - (no specific identity) Power of Programmer Developer Pino Marshall Other - (no specific identity) Power of Programmer Developer Pari Sullivan Other - (no specific identity) Power of Programmer Developer Care Teams Stand Up Comedian Relationship Specialty Start Date End Date Duglas Mayo MD [address] [place] [address] PCP - General Family Medicine 09/05/22 documented as of this encounter
--- OUTSIDE RECORDS SUMMARY | 2023-07-16 14:50 | External Medical Summary | Summary of Care ---
Author Name Unknown Organization [facility] Address [address] [place] [address] Phone [phone] Care Team Providers Care Linoleum Tile Floor Layer Name Role Phone Duglas Mayo MD Primary Care Provider + [phone] Reason for Visit * Reason Onset Date Comments Order Request 03/14/2023 Encounter Details Date Type Department Care Team (Late st Contact Info) Description 03/14/2023 Telephone [facility] [address] [place] [address] AugustMarkell MD [address] [place] [address] Order Request Allergies Active Allergy Reactions Criticality Noted Date Comments Methylprednisolone Sodium Succ 12/06 Dog Dander Low 03/20/2019 Other reaction(s): Sneezing Food (See Comments) 02/23/2018 Duck eggs Swelling Pollen 08/25/2015 Nystatin 01/17/2019 Allergic reaction Pollen Extract 03/20/2019 Other reaction(s): HAYFEVER documented as of this encounter (statuses as of 03/14/2023) Medications Medication Sig Dispensed Refills Start Date [...] Active Additional Information Patient taking differently:50 mg [id number] PRN, Pain, Moderate, Reported on 09/16/2022 Simvastatin [...] as of this encounter (statuses as of 03/14/2023) Active Problems Problem Noted Date Diagnosed Date [...] as of this encounter (statuses as of 03/14/2023) Resolved Problems Problem Noted Date Diagnosed Date [...] as of this encounter (statuses as of 03/14/2023) Immunizations Name Administration Dates Next Due Pneumococcal [...] if applicable: not given Call Back Number: [phone] Call dropped before the end of the [...] Description 03/22/2023 3:20 PM EST [facility] [place] [address] [facility] [phone] Markell Linton MD [address] [facility] [address] 05/09/2023 1:00 PM EST Office Visit Cardiology, [facility] [address] [place] [address] Nabila Fields CRNP [address] [place] [address] 06/08/2023 11:20 AM EST Office Visit [facility] [address] [facility] [phone] Chana Stacy PA-C [address] [facility] [address] Health Maintenance Due Date Last Done Comments COVID-19 Vaccine (#1) 03/12/1951 Alpha-1 Antitrypsin 1966 Mammogram 1988 Cologuard 1993 Fecal Occult Blood Test 1993 Sigmoidoscopy 1993 Zoster Vaccines (1 of 2) 1998 Pneumococcal Vaccine: 65+ Years (3 - PPSV23 or PCV20) 07/02/2018 11/25/2016, 07/02/2013 *ADVANCE DIRECTIVE NOT ON FILE 10/06/2018 Depression Screening 12/07/2020 12/08/2019 DXA Scan 06/06/2021 06/06/2014 CKD PHOS USE SMARTSET 00774 11/17/2021 11/17/2020 Influenza Vaccine (FLU shot) (#1) 2022 03/12/2013 Albumin/Creatinine Ratio 01/14/2023 01/14/2022 DTaP,Tdap,and Td Vaccines (2 - Td or Tdap) 07/03/2023 07/02/2013 GFR 09/06/2023 03/08/2023, 0506/2022, 04/26/2022, Additional history exists CKD HGB USE SMARTSET 74021 03/08/202403/08, 09/13/2022, 04/26/2022, Additional history exists O2 [...] Other - (no specific identity) Power of Blower And Compressor Assembler Pino Rolando Other - (no specific identity) Power of Blower And Compressor Assembler Pari Sullivan Other - (no specific identity) Power of Blower And Compressor Assembler Care Teams Linoleum Tile Floor Layer Relationship Specialty Start Date End Date Duglas Mayo MD [address] [place] [address] PCP - General Family Medicine 09/05/22 documented as of this encounter
--- OUTSIDE RECORDS SUMMARY | 2023-07-16 14:50 | External Medical Summary | Summary of Care ---
Author Name Unknown Organization [facility] Address [address] [place] [address] Phone [phone] Care Team Providers Care Engineer Byproduct Name Role Phone Duglas Mayo MD Primary Care Provider + [phone] Reason for Visit * Reason Onset Date Comments Order Request 03/09/2023 Encounter Details Date Type Department Care Team (Late st Contact Info) Description 03/09/2023 Telephone [facility] [address] [place] [address] AugustMarkell MD [address] [place] [address] Order Request Allergies Active Allergy Reactions Criticality Noted Date Comments Methylprednisolone Sodium Succ 12/06 Dog Dander Low 03/20/2019 Other reaction(s): Sneezing Food (See Comments) 02/23/2018 Duck eggs Swelling Pollen 08/25/2015 Nystatin 01/17/2019 Allergic reaction Pollen Extract 03/20/2019 Other reaction(s): HAYFEVER documented as of this encounter (statuses as of 03/10/2023) Medications Medication Sig Dispensed Refills Start Date [...] EVERY DAY 90 Tablet 3 12/29/2021 Active Magnesium Oxide 400 MG Oral TabletIndications:Hy pomagnesemia Take by mouth 1 Tablet in the morning AND 1 Tablet before bedtime. 180 Tablet 1 01/14/2022 Active Ammonium Lactate 12 % External Lotion [...] Active Additional Information Patient taking differently:50 mg [id number] PRN, Pain, Moderate, Reported on 09/16/2022 Simvastatin [...] AT 12 90 Tablet 3 03/08/2023 Active documented as of this encounter (statuses as of 03/10/2023) Active Problems Problem Noted Date Diagnosed Date [...] as of this encounter (statuses as of 03/10/2023) Resolved Problems Problem Noted Date Diagnosed Date [...] as of this encounter (statuses as of 03/10/2023) Immunizations Name Administration Dates Next Due Pneumococcal [...] encounter Miscellaneous Notes * Telephone Encounter - Nikki Navarro CCMA [...] have qualified for home O2 on leaving [facility] or she would have been sent home [...] prior to discharge. I don't see the [facility] or [facility] discharge summary in [facility]. We do have notes from [facility] and her sats there were good - again, suggesting a change in status and need for eval. * Telephone Encounter - Lydia May LPN - 03/09/2023 1:30 PM EST Pt is requesting an order for oxygen. She was on oxygen when she was in [facility]. She came home yesterday and feels she [...] If so, where?: [facility] in [place] Fax Number, if applicable: n/a Call Back Number: [phone] Thank you, Winifred Rene Flipping Machine Operator [facility] ([facility] (formerly [facility]) 03/09/2023, 12:17 PM documented in this encounter Plan of Treatment Upcoming Encounters Date Type Department Care Team (Late st Contact Info) Description 05/09/2023 1:00 PM EST Office Visit Cardiology, [facility] [address] [facility] [place] [address] Nabila Fields CRNP [address] [place] [address] 06/08/2023 11:20 AM EST Office Visit Family [facility] [address] [place] [phone] Chana Stacy PA-C [address] [place] [address] Health Maintenance Due Date Last Done Comments COVID-19 Vaccine (#1) 03/12/1951 Alpha-1 Antitrypsin 1966 Mammogram 1988 Cologuard 1993 Fecal Occult Blood Test 1993 Sigmoidoscopy 1993 Zoster Vaccines (1 of 2) 1998 Pneumococcal Vaccine: 65+ Years (3 - PPSV23 or PCV20) 07/02/2018 11/25/2016, 07/02/2013 *ADVANCE DIRECTIVE NOT ON FILE 10/06/2018 Depression Screening 12/07/2020 12/08/2019 DXA Scan 06/06/2021 06/06/2014 CKD PHOS USE SMARTSET 08485 11/17/2021 11/17/2020 Influenza Vaccine (FLU shot) (#1) 2022 03/12/2013 Albumin/Creatinine Ratio 01/14/2023 01/14/2022 DTaP,Tdap,and Td Vaccines (2 - Td or Tdap) 07/03/2023 07/02/2013 GFR 09/06/2023 03/08/2023, 0506/2022, 04/26/2022, Additional history exists CKD HGB USE SMARTSET 76646 03/08/202403/08, 09/13/2022, 04/26/2022, Additional history exists O2 [...] Other - (no specific identity) Power of Director Correctional Agency Pino Rolando Other - (no specific identity) Power of Director Correctional Agency Pari Sullivan Other - (no specific identity) Power of Director Correctional Agency Care Teams Engineer Byproduct Relationship Specialty Start Date End Date Duglas Mayo MD [address] [place] [address] PCP - General Family Medicine 09/05/22 documented as of this encounter
--- OUTSIDE RECORDS SUMMARY | 2023-07-16 14:50 | External Medical Summary | Summary of Care ---
Author Name Unknown Organization [facility] Address [address] [place] [address] Phone [phone] Care Team Providers Care Leather Polisher Name Role Phone Duglas aMyo MD Primary Care Provider + [phone] Reason for Visit * Reason Onset Date Comments Order Request 03/09/2023 Encounter Details Date Type Department Care Team (Late st Contact Info) Description 03/09/2023 Telephone [facility] [address] [place] [address] AugustMarkell MD [address] [place] [address] Order Request Allergies Active Allergy Reactions Criticality Noted Date Comments Methylprednisolone Sodium Succ 12/06 Dog Dander Low 03/20/2019 Other reaction(s): Sneezing Food (See Comments) 02/23/2018 Duck eggs Swelling Pollen 08/25/2015 Nystatin 01/17/2019 Allergic reaction Pollen Extract 03/20/2019 Other reaction(s): HAYFEVER documented as of this encounter (statuses as of 03/13/2023) Medications Medication Sig Dispensed Refills Start Date [...] C, by GOLD 2017 classification ([facility]) Inhale via nebulizer . Use as directed. [...] C, by GOLD 2017 classification ([facility]),Asthma with irreversible airway obstruction, unspecified asthma severity, uncomplicated ([facility]) INHALE 2 PUFFS BY MOUTH EVERY 6 HOURS NEEDED FOR WHEEZING 54 g 1 3 Active Pantoprazole Sodium 40 MG Oral Tablet Delayed Release (Protonix)Indicatio ns:Esophageal reflux Take 1 Tablet by mouth in the morning and 1 Tablet before bedtime. 180 Tablet 1 3 Active Nebulizer/Tubing/Mo uthpiece KitIndications:COPD , group C, by GOLD 2017 classification ([facility]) Use to nebulize medicaitons 1 Kit 1 3 Active traMADol HCl 50 MG Oral Tablet (Ultram)Indications :Bilateral primary osteoarthritis of knee Take 1 Tablet by mouth every 6 hours as needed for Pain, Moderate. 30 Tablet 0 3 Active Additional Information Patient taking differently:50 mg [id number] PRN, Pain, Moderate, Reported on 09/16/2022 Simvastatin [...] as of this encounter (statuses as of 03/13/2023) Active Problems Problem Noted Date Diagnosed Date [...] as of this encounter (statuses as of 03/13/2023) Resolved Problems Problem Noted Date Diagnosed Date [...] as of this encounter (statuses as of 03/13/2023) Immunizations Name Administration Dates Next Due Pneumococcal [...] have qualified for home O2 on leaving [facility] or she would have been sent home [...] prior to discharge. I don't see the [facility] or [facility] discharge summary in [facility]. We do have notes from [facility] and her sats there were good - again, suggesting a change in status and need for eval. * Telephone Encounter - Lydia May LPN - 03/09/2023 1:30 PM EST Pt is requesting an order for oxygen. She was on oxygen when she was in [facility]. She came home yesterday and feels she [...] If so, where?: [facility] in [place] Fax Number, if applicable: n/a Call Back Number: [phone] Thank you, Winifred Rene Show Host/Hostess [facility] ([facility] (formerly Tele[facility]) 03/09/2023, 12:17 PM documented in this encounter Plan of Treatment Upcoming Encounters Date Type Department Care Team (Late st Contact Info) Description 05/09/2023 1:00 PM EST Office Visit Cardiology, [facility] [address] [facility] [place] [address] Nabila Fields CRNP [address] [facility] [place] [address] 06/08/2023 11:20 AM EST Office Visit Family [facility] [address] [place] [phone] Chana Stacy PA-C [address] [place] [address] Health Maintenance Due Date Last Done Comments COVID-19 Vaccine (#1) 03/12/1951 Alpha-1 Antitrypsin 1966 Mammogram 1988 Cologuard 1993 Fecal Occult Blood Test 1993 Sigmoidoscopy 1993 Zoster Vaccines (1 of 2) 1998 Pneumococcal Vaccine: 65+ Years (3 - PPSV23 or PCV20) 07/02/2018 11/25/2016, 07/02/2013 *ADVANCE DIRECTIVE NOT ON FILE 10/06/2018 Depression Screening 12/07/2020 12/08/2019 DXA Scan 06/06/2021 06/06/2014 CKD PHOS USE SMARTSET 75365 11/17/2021 11/17/2020 Influenza Vaccine (FLU shot) (#1) 2022 03/12/2013 Albumin/Creatinine Ratio 01/14/2023 01/14/2022 DTaP,Tdap,and Td Vaccines (2 - Td or Tdap) 07/03/2023 07/02/2013 GFR 09/06/2023 03/08/2023, 08/23, 04/26/2022, Additional history exists CKD HGB USE SMARTSET 69500 03/08/202403/08, 09/13/2022, 04/26/2022, Additional history exists O2 [...] File Name Relationship Healthcare Agent Relationship Communication hTeresa Marshall Other - (no specific identity) Power of Director Of Nuclear Medicine Pino Peraltaon Other - (no specific identity) Power of Director Of Nuclear Medicine Pari Sullivan Other - (no specific identity) Power of Director Of Nuclear Medicine Care Teams Leather Polisher Relationship Specialty Start Date End Date Duglas Mayo MD [address], [place] [phone] PCP - General Family Medicine 09/05/22 documented as of this encounter
--- OUTSIDE RECORDS SUMMARY | 2023-07-16 14:50 | External Medical Summary | Summary of Care ---
Author Name Unknown Organization [facility] Address [address] [place] [address] Phone [phone] Care Team Providers Care Retail Analyst Name Role Phone Duglas Mayo MD Primary Care Provider + [phone] Reason for Visit * Reason Onset Date Comments Order Request 03/09/2023 Encounter Details Date Type Department Care Team (Late st Contact Info) Description 03/09/2023 Telephone [facility] [address] [place] [address] AugustMarkell MD [address] [place] [address] Order Request Allergies Active Allergy [...] Active Additional Information Patient taking differently:50 mg [id number] PRN, Pain, Moderate, Reported on 09/16/2022 Simvastatin [...] encounter Miscellaneous Notes * Telephone Encounter - Adam Fischer MD [...] have qualified for home O2 on leaving [facility] or she would have been sent [...] prior to discharge. I don't see the [facility] or [facility] discharge summary in [facility]. We do have notes from [facility] and her sats there were good - again, suggesting a change in status and need for eval. * Telephone Encounter - Lydia May LPN - 03/09/2023 1:30 PM EST Pt is requesting an order for oxygen. She was on oxygen when she was in [facility]. She came home yesterday and feels [...] If so, where?: [facility] in [place] Fax Number, if applicable: n/a Call Back Number: [phone] Thank you, Winifred Rene Chief Of Staff Doctor [facility] ([facility] (formerly Tele[facility]) 03/09/2023, 12:17 PM documented in this encounter Plan of Treatment Upcoming Encounters Date Type Department Care Team (Late st Contact Info) Description 05/09/2023 1:00 PM EST Office Visit [facility] [place] [address] Nabila Fields CRNP [facility] [place] [address] 06/08/2023 11:20 AM EST [facility] [address] [place] [phone] Chana Stacy PA-C [address] [place] [address] Health Maintenance Due Date Last Done Comments COVID-19 Vaccine (#1) 03/12/1951 Alpha-1 Antitrypsin 1966 Mammogram 1988 Cologuard 1993 Fecal Occult Blood Test 1993 Sigmoidoscopy 1993 Zoster Vaccines (1 of 2) 1998 Pneumococcal Vaccine: 65+ Years (3 - PPSV23 or PCV20) 07/02/2018 11/25/2016, 07/02/2013 *ADVANCE DIRECTIVE NOT ON FILE 10/06/2018 Depression Screening 12/07/2020 12/08/2019 DXA Scan 06/06/2021 06/06/2014 CKD PHOS USE SMARTSET 83655 11/17/2021 11/17/2020 Influenza Vaccine (FLU shot) (#1) 2022 03/12/2013 Albumin/Creatinine Ratio 01/14/2023 01/14/2022 DTaP,Tdap,and Td Vaccines (2 - Td or Tdap) 07/03/2023 07/02/2013 GFR 09/06/2023 03/08/2023, 05/2 06/2022, 04/26/2022, Additional history exists CKD HGB USE SMARTSET 18155 03/08/202403/08, 09/13/2022, 04/26/2022, Additional history exists O2 [...] Other - (no specific identity) Power of Telehealth Coordinator Pino Marshall Other - (no specific identity) Power of Telehealth Coordinator Pari Sullivan Other - (no specific identity) Power of Telehealth Coordinator Care Teams Retail Analyst Relationship Specialty Start Date End Date Duglas Mayo MD [address] [place] [address] PCP - General Family Medicine 09/05/22 documented as of this encounter
--- OUTSIDE RECORDS SUMMARY | 2023-07-16 14:50 | External Medical Summary | Summary of Care ---
Author Name Unknown Organization [facility] Address [address] [place] [address] Phone [phone] Care Team Providers Care Residential Air Sealing Technician Name Role Phone Duglas Mayo MD Primary Care Provider + [phone] Reason for Visit * Reason Onset Date Comments Advice 03/14/2023 Encounter Details Date Type Department Care Team (Late st Contact Info) Description 03/14/2023 Telephone [facility] [address] [place] [address] Chana Stacy PA-C [address] [place] [address] Advice Allergies Active Allergy Reactions [...] Active Additional Information Patient taking differently:50 mg [id number] PRN, Pain, Moderate, Reported on 09/16/2022 Simvastatin [...] dressing to protect the area sent to [facility] in [place]. Markell Linton MD * Telephone Encounter - [...] 03/22/2023 3:20 PM EST Office Visit Family [facility] [place] [address] [facility] [address] Markell Linton MD [address] [facility] [address] 05/09/2023 1:00 PM EST Office Visit Cardiology, [facility] [address] [place] [address] Nabila Fields CRNP [address] [facility] [place] [address] 06/08/2023 11:20 AM EST Office Visit [facility] [place] [address] [facility] [address] Chana Stacy PA-C [address] [facility] [address] Health Maintenance Due Date Last Done Comments COVID-19 Vaccine (#1) 03/12/1951 Alpha-1 Antitrypsin 1966 Mammogram 1988 Cologuard 1993 Fecal Occult Blood Test 1993 Sigmoidoscopy 1993 Zoster Vaccines (1 of 2) 1998 Pneumococcal Vaccine: 65+ Years (3 - PPSV23 or PCV20) 07/02/2018 11/25/2016, 07/02/2013 *ADVANCE DIRECTIVE NOT ON FILE 10/06/2018 Depression Screening 12/07/2020 12/08/2019 DXA Scan 06/06/2021 06/06/2014 CKD PHOS USE SMARTSET 49981 11/17/2021 11/17/2020 Influenza Vaccine (FLU shot) (#1) 2022 03/12/2013 Albumin/Creatinine Ratio 01/14/2023 01/14/2022 DTaP,Tdap,and Td Vaccines (2 - Td or Tdap) 07/03/2023 07/02/2013 GFR 09/06/2023 03/08/2023, 05/2 06/2022, 04/26/2022, Additional history exists CKD HGB USE SMARTSET 75008 03/08/202403/08, 09/13/2022, 04/26/2022, Additional history exists O2 [...] Other - (no specific identity) Power of Dentures Lab Technician Pino Marshall Other - (no specific identity) Power of Dentures Lab Technician Pari Nate Other - (no specific identity) Power of Dentures Lab Technician Care Teams Residential Air Sealing Technician Relationship Specialty Start Date End Date Duglas Mayo MD [address] [place] [address] PCP - General Family Medicine 09/05/22 documented as of this encounter
--- OUTSIDE RECORDS SUMMARY | 2023-07-16 14:50 | External Medical Summary | Summary of Care ---
Author Name Unknown Organization [facility] Address [address] [place] [address] Phone [phone] Care Team Providers Care Casing Fluid Tender Name Role Phone Duglas Mayo MD Primary Care Provider [phone] Reason for Visit * Reason Onset Date Comments Hospital Follow-Up Needs her las ix pill along with vitamin c and iron pill Hospital Follow-Up 03/08/2023 Encounter Details Date Type Department Care Team (Latest Contact Info) Description 03/08/2023 10:00 AM EST Office Visit [facility] [address] [place] [address] August, Markell Heller MD [address] [place] [address] Hospital discharge follow-up*; Acute congestive heart failure, unspecified heart failure type ([facility]); PAULETTE (acute kidney injury) ([facility]); Macrocytic anemia; Dyslipidemia; Hypothyroidism, unspecified type; COPD, group C, by GOLD 2017 classification ([facility]); Nonrheumatic aortic valve stenosis; S/P TAVR (transcatheter aortic valve replacement); Paroxysmal atrial fibrillation ([facility]); Morbid obesity ([facility]) Allergies Active Allergy Reactions Criticality Noted [...] Active Additional Information Patient taking differently:50 mg [id number] PRN, Pain, Moderate, Reported on 09/16/2022 Simvastatin [...] before bedtime. 180 Tablet 1 2 03/10/20 Discontinu ed(Refill) Flovent HFA 220 MCG/ACT Inhalation Aerosol TAKE 2 PUFFS BY MOUTH TWICE A DAY Strength: 220 MCG/ACT 36 g 2 2 03/08/20 Discontinu ed(Medicat ion/Dose Changed) Furosemide 20 MG Oral Tablet (Lasix)Indications: Acute congestive heart failure (HCC),PAULETTE (acute kidney injury) (HCC) TAKE 2 TABLETS BY MOUTH EVERY MORNING 180 Tablet 1 3 03/08/20 Discontinu ed(Refill) Ferrous Sulfate 325 (65 Fe) MG Oral Tablet (Feosol)Indications :Macrocytic anemia TAKE 1 TABLET BY MOUTH EVERY DAY AT 12 90 Tablet 0 3 03/08/20 Discontinu ed(Refill) documented as of this encounter [...] Tablet;Refill: 1 2. PAULETTE (acute kidney injury) (HCC) Baseline Cr appears 1.5. Repeat testing today. [...] GOLD 2017 classification ([facility]) Stable respiratory status. No longer on oxygen. 7. Nonrheumatic aortic valve stenosis S/p TAVR. 8. S/P TAVR (transcatheter aortic valve replacement) 9. Paroxysmal atrial fibrillation (HCC) Amiodarone and metoprolol. Not on anticoagulation due to history of GI bleed. 10. Morbid obesity (HCC) 11. Hospital discharge follow-up - DISCH MED RECON CUR MED LIS Wrap-Up Follow up in 3 months with Chana per patient preference. History of Present Illness The patient is a 72-year-old female with past medical history of dyslipidemia, COPD group C by [id number] classification, aortic stenosis, paroxysmal atrial fibrillation, morbid obesity, GERD, CKD stage IIIB, tobacco use who presents for hospital follow up. The patient was admitted to [facility] from 08/18/2022 through 09/02/2022. She was transferred from [facility]. Patient was initially evaluated for sepsis with [...] time of discharge she was sent to [place] for rehab. She was originally you from [...] Description 03/22/2023 3:20 PM EST [facility] [place] [facility] [address] [facility] [address] Markell Linton MD [address] [place] [address] 05/09/2023 1:00 PM EST Office Visit Cardiology, [facility] [address] [address] Nabila Fields CRNP [address] [place] [place] [address] 06/08/2023 11:20 AM EST [facility] [place] [address] [facility] [address] Chana Stacy PA-C [address] [place] [address] Health Maintenance Due Date Last Done Comments COVID-19 Vaccine (#1) 03/12/1951 Alpha-1 Antitrypsin 1966 Mammogram 1988 Cologuard 1993 Fecal Occult Blood Test 1993 Sigmoidoscopy 1993 Zoster Vaccines (1 of 2) 1998 Pneumococcal Vaccine: 65+ Years (3 - PPSV23 or PCV20) 07/02/2018 11/25/2016, 07/02/2013 *ADVANCE DIRECTIVE NOT ON FILE 10/06/2018 Depression Screening 12/07/2020 12/08/2019 DXA Scan 06/06/2021 06/06/2014 CKD PHOS USE SMARTSET 21220 11/17/2021 11/17/2020 Influenza Vaccine (FLU shot) (#1) 2022 03/12/2013 Albumin/Creatinine Ratio 01/14/2023 01/14/2022 DTaP,Tdap,and Td Vaccines (2 - Td or Tdap) 07/03/2023 07/02/2013 GFR 09/06/2023 03/08/2023, 08/23, 04/26/2022, Additional history exists CKD HGB USE SMARTSET 63326 03/08/202403/08, 09/13/2022, 04/26/2022, Additional history exists O2 [...] MD LAB [facility]OD [facility] [address] [place] [address] * (ABNORMAL) COMPREHENSIVE METABOLIC PANEL [...] LAB BLOOD ORDERABLES [facility] [address] [place] [address] documented in this encounter Visit Diagnoses Diagnosis [...] Other - (no specific identity) Power of Talent Consultant Pino Marshall Other - (no specific identity) Power of Talent Consultant Pari Sullivan Other - (no specific identity) Power of Talent Consultant Care Teams Casing Fluid Tender Relationship Specialty Start Date End Date Duglas Mayo MD [address] [place] [address] PCP - General Family Medicine 09/05/22 documented as of this encounter
--- OUTSIDE RECORDS SUMMARY | 2023-07-16 14:50 | External Medical Summary | Summary of Care ---
Author Name Unknown Organization [facility] Address [address] [place] [address] Phone [phone] Care Team Providers Care Chipper Operator Name Role Phone Duglas Mayo MD Primary Care Provider + [phone] Reason for Visit * Reason Onset Date Comments Order Request 03/09/2023 Encounter Details Date Type Department Care Team (Late st Contact Info) Description 03/09/2023 Telephone [facility] [address] [place] [address] AugustMarkell MD [address] [place] [address] Order Request Allergies Active Allergy [...] Active Additional Information Patient taking differently:50 mg [id number] PRN, Pain, Moderate, Reported on 09/16/2022 Simvastatin [...] encounter Miscellaneous Notes * Telephone Encounter - Claudia Carreno OSA - 03/13/2023 12:13 PM EST Patient and her sister state that she doesn't need oxygen and then they changed their mind that they should get her evaluated. Scheduled. 03/13/2023 * Telephone Encounter - Markell Linton MD [...] have qualified for home O2 on leaving [facility] or she would have been [...] prior to discharge. I don't see the [facility] or [facility] discharge summary in Epic. We do have notes from [facility] and her sats there were good - again, suggesting a change in status and need for eval. * Telephone Encounter - Lydia May LPN - 03/09/2023 1:30 PM EST Pt is requesting an order for oxygen. She was on oxygen when she was in [facility]. She came home yesterday and feels she needs the oxygen because she feels faint and like she is going to have a heart attack because she can't breath. Pt states she would like it today. Please advise. * Telephone Encounter - dAam Fischer MD - 03/09/2023 12:39 PM EST [...] If so, where?: [facility] in [place] Fax Number, if applicable: n/a Call Back Number: [phone] Thank you, Winifred Rene Carbon Paper Coating Supervisor [facility] ([facility]) 03/09/2023, 12:17 PM documented in this encounter Plan of Treatment Upcoming Encounters Date Type Department Care Team (Late st Contact Info) Description 05/09/2023 1:00 PM EST Office Visit Cardiology, [facility] [address] [place] [address] Nabila Fields CRNP [address] [place] [place] [address] 06/08/2023 11:20 AM EST [address] [address] Chana Stacy PA-C [address] [place], [place] [id number] Health Maintenance Due Date Last Done Comments COVID-19 Vaccine (#1) 03/12/1951 Alpha-1 Antitrypsin 1966 Mammogram 1988 Cologuard 1993 Fecal Occult Blood Test 1993 Sigmoidoscopy 1993 Zoster Vaccines (1 of 2) 1998 Pneumococcal Vaccine: 65+ Years (3 - PPSV23 or PCV20) 07/02/2018 11/25/2016, 07/02/2013 *ADVANCE DIRECTIVE NOT ON FILE 10/06/2018 Depression Screening 12/07/2020 12/08/2019 DXA Scan 06/06/2021 06/06/2014 CKD PHOS USE SMARTSET 09313 11/17/2021 11/17/2020 Influenza Vaccine (FLU shot) (#1) 2022 03/12/2013 Albumin/Creatinine Ratio 01/14/2023 01/14/2022 DTaP,Tdap,and Td Vaccines (2 - Td or Tdap) 07/03/2023 07/02/2013 GFR 09/06/2023 03/08/2023, 08/23, 04/26/2022, Additional history exists CKD HGB USE SMARTSET 75849 03/08/202403/08, 09/13/2022, 04/26/2022, Additional history exists O2 [...] Other - (no specific identity) Power of Industrial Eng Pino Rolando Other - (no specific identity) Power of Industrial Eng Pari Sullivan Other - (no specific identity) Power of Industrial Eng Care Teams Chipper Operator Relationship Specialty Start Date End Date Duglas Mayo MD [address] [place] [address] PCP - General Family Medicine 09/05/22 documented as of this encounter
--- OUTSIDE RECORDS SUMMARY | 2023-07-16 14:50 | External Medical Summary | Summary of Care ---
Author Name Unknown Organization [facility] Address [address] [place] [address] Phone [phone] Care Team Providers Care Director Supply Chain Name Role Phone Duglas Mayo MD Primary Care Provider [phone] Reason for Visit * Reason Onset Date Comments Hospital Follow-Up Needs her las ix pill along with vitamin c and iron pill Hospital Follow-Up 03/08/2023 Encounter Details Date Type Department Care Team (Latest Contact Info) Description 03/08/2023 10:00 AM EST Office Visit [facility] [address] [place] [address] August, Markell Heller MD [address] [place] [address] Hospital discharge follow-up*; Acute congestive heart failure, unspecified heart failure type ([facility]); PAULETTE (acute kidney injury) ([facility]); Macrocytic anemia; Dyslipidemia; Hypothyroidism, unspecified type; COPD, group C, by GOLD 2017 classification ([facility]); Nonrheumatic aortic valve stenosis; S/P TAVR (transcatheter aortic valve replacement); Paroxysmal atrial fibrillation ([facility]); Morbid obesity ([facility]) Allergies Active Allergy Reactions Criticality Noted Date [...] Active Additional Information Patient taking differently:50 mg [id number] PRN, Pain, Moderate, Reported on 09/16/2022 Simvastatin [...] Tablet;Refill: 1 2. PAULETTE (acute kidney injury) ([facility]) Baseline Cr appears 1.5. Repeat testing today. [...] [facility]) Stable respiratory status. No longer on oxygen. 7. Nonrheumatic aortic valve stenosis S/p TAVR. 8. S/P TAVR (transcatheter aortic valve replacement) 9. Paroxysmal atrial fibrillation ([facility]) Amiodarone and metoprolol. Not on anticoagulation due to history of GI bleed. 10. Morbid obesity (HCC) 11. Hospital discharge follow-up - DISCH MED RECON CUR MED LIS Addendum 03/14/2023: Patient with sacral ulcer and requires being upright in bed to sleep due to COPD. Limited mobility. Recommend hospital bed at home to improve respiratory status and reduce the risk of worsening sacral ulcers. Wrap-Up Follow up in 3 months with Chana per patient preference. History of Present Illness The patient is a 72-year-old female with past medical history of dyslipidemia, COPD group C by [id number] classification, aortic stenosis, paroxysmal atrial fibrillation, morbid obesity, GERD, CKD stage IIIB, tobacco use who presents for hospital follow up. The patient was admitted to [facility] from 08/18/2022 through 09/02/2022. She was transferred from [facility]. Patient was initially evaluated for sepsis with [...] time of discharge she was sent to [place] for rehab. She was originally you from [...] Description 03/22/2023 3:20 PM EST Office Visit [facility] [address] [place] [address] Markell Linton MD [address] [place] [address] 05/09/2023 1:00 PM EST Office Visit Cardiology, [facility] [place] [address] Nabila Fields CRNP [address] [place] [address] 06/08/2023 11:20 AM EST Office Visit Family [facility] [address] [facility] [address] Chana Stacy PA-C [address] [place] [facility] [place] [address] Health Maintenance Due Date Last Done Comments COVID-19 Vaccine (#1) 03/12/1951 Alpha-1 Antitrypsin 1966 Mammogram 1988 Cologuard 1993 Fecal Occult Blood Test 1993 Sigmoidoscopy 1993 Zoster Vaccines (1 of 2) 1998 Pneumococcal Vaccine: 65+ Years (3 - PPSV23 or PCV20) 07/02/2018 11/25/2016, 07/02/2013 *ADVANCE DIRECTIVE NOT ON FILE 10/06/2018 Depression Screening 12/07/2020 12/08/2019 DXA Scan 06/06/2021 06/06/2014 CKD PHOS USE SMARTSET 95777 11/17/2021 11/17/2020 Influenza Vaccine (FLU shot) (#1) 2022 03/12/2013 Albumin/Creatinine Ratio 01/14/2023 01/14/2022 DTaP,Tdap,and Td Vaccines (2 - Td or Tdap) 07/03/2023 07/02/2013 GFR 09/06/2023 03/08/2023, 05/2 06/2022, 04/26/2022, Additional history exists CKD HGB USE SMARTSET 57900 03/08/202403/08, 09/13/2022, 04/26/2022, Additional history exists O2 [...] LAB [facility]LO[facility] [address] [place] [address] * (ABNORMAL) COMPREHENSIVE METABOLIC PANEL (03/08/2023 9:47 [...] Markell Linton MD LAB BLOOD ORDERABLES LABORATORY [facility] [address] [place] [address] documented in this encounter Visit Diagnoses Diagnosis [...] Other - (no specific identity) Power of American Sign Language Interpreter Pino Rolando Other - (no specific identity) Power of American Sign Language Interpreter Pari Sullivan Other - (no specific identity) Power of American Sign Language Interpreter Care Teams Director Supply Chain Relationship Specialty Start Date End Date Duglas Mayo MD [address] [place] [address] PCP - General Family Medicine 09/05/22 documented as of this encounter
--- OUTSIDE RECORDS SUMMARY | 2023-07-16 14:51 | External Medical Summary ---
Author Name Unknown Address Unknown Organization [id number][place] [place] [address] [place] [address] [place] [address] Laboratory Report Ordering Provider Test Date Status MISAEL CONNORS 03/08/2023 09:47:42 Final Observation Date Value Abnormality Reference (Units ) Status TSH 03/08/2023 09:47:42 3.58 0.27-4.20 (uIU/mL) Final Performing Location [facility] [place] [address] [facility] [address]
--- OUTSIDE RECORDS SUMMARY | 2023-07-16 14:51 | External Medical Summary ---
Author Name Unknown Address Unknown Organization [id number]:[facility] [place] [address] [place] [address] Laboratory Report Ordering Provider Test Date Status KAYA GUERRERO 03/08/2023 09:47:42 Final Observation Date Value Abnormality Reference (Units ) Status MYCODE SPECIMEN-SST 03/08/2023 09:47:42 Freezing of extracted DNA, whole blood and/or serum. Final Performing Location [facility] [place] [address] [facility] [address]
--- OUTSIDE RECORDS SUMMARY | 2023-07-16 14:51 | External Medical Summary | Summary of Care ---
Author Name Unknown Organization [facility] Address [address] [place] [address] Phone [phone] Care Team Providers Care Closing Specialist Name Role Phone Duglas Mayo MD Primary Care Provider + [phone] Reason for Visit * Reason Onset Date Comments Hospital Follow-Up Needs her las ix pill along with vitamin c and iron pill Hospital Follow-Up 03/08/2023 Encounter Details Date Type Department Care Team (Latest Contact Info) Description 03/08/2023 10:00 AM EST Office Visit [place] [address] [place] [address] AugustMarkell MD [address] [place], [place] [phone] Hospital discharge follow-up*; Acute congestive heart failure, unspecified heart failure type ([facility]); PAULETTE (acute kidney injury) ([facility]); Macrocytic anemia; Dyslipidemia; Hypothyroidism, unspecified type; COPD, group C, by GOLD 2017 classification ([facility]); Nonrheumatic aortic valve stenosis; S/P TAVR (transcatheter aortic valve replacement); Paroxysmal atrial fibrillation ([facility]); Morbid obesity ([facility]) Allergies Active Allergy Reactions Criticality Noted Date Comments Methylprednisolone Sodium Succ 12/06 Dog Dander Low 03/20/2019 Other reaction(s): Sneezing Food (See Comments) 02/23/2018 Duck eggs Swelling Pollen 08/25/2015 Nystatin 01/17/2019 Allergic reaction Pollen Extract 03/20/2019 Other reaction(s): HAYFEVER documented as of this encounter (statuses as of 03/08/2023) Medications Medication Sig Dispensed Refills Start Date [...] EVERY DAY 90 Tablet 3 2 Active Magnesium Oxide 400 MG Oral TabletIndications:H ypomagnesemia Take by mouth 1 Tablet in the morning AND 1 Tablet before bedtime. 180 Tablet 1 2 Active Ammonium Lactate 12 % External [...] Active Additional Information Patient taking differently:50 mg [id number] PRN, Pain, Moderate, Reported on 09/16/2022 Simvastatin [...] AT 12 90 Tablet 3 3 Active Flovent HFA 220 MCG/ACT Inhalation Aerosol TAKE 2 PUFFS BY MOUTH TWICE A DAY Strength: 220 MCG/ACT 36 g 2 2 03/08/20 23 Discontinu ed(Medicat ion/Dose Changed) Furosemide 20 MG Oral Tablet (Lasix)Indications: Acute congestive heart failure (HCC),PAULETTE (acute kidney injury) (HCC) TAKE 2 TABLETS BY MOUTH EVERY MORNING 180 Tablet 1 3 03/08/20 23 Discontinu ed(Refill) Ferrous Sulfate 325 (65 Fe) MG Oral Tablet (Feosol)Indications :Macrocytic anemia TAKE 1 TABLET BY MOUTH EVERY DAY AT 12 90 Tablet 0 3 03/08/20 23 Discontinu ed(Refill) documented as of this encounter (statuses as of 03/08/2023) Active Problems Problem Noted Date Diagnosed Date [...] as of this encounter (statuses as of 03/08/2023) Resolved Problems Problem Noted Date Diagnosed Date [...] as of this encounter (statuses as of 03/08/2023) Immunizations Name Administration Dates Next Due Pneumococcal [...] Tablet;Refill: 1 2. PAULETTE (acute kidney injury) ([facility]) Baseline Cr appears 1.5. Repeat testing today. [...] GOLD 2017 classification ([facility]) Stable respiratory status. No longer on oxygen. 7. Nonrheumatic aortic valve stenosis S/p TAVR. 8. S/P TAVR (transcatheter aortic valve replacement) 9. Paroxysmal atrial fibrillation (HCC) Amiodarone and metoprolol. Not on anticoagulation due to history of GI bleed. 10. Morbid obesity ([facility]) 11. Hospital discharge follow-up - DISCH MED RECON CUR MED LIS Wrap-Up Follow up in 3 months with Chana per patient preference. History of Present Illness The patient is a 72-year-old female with past medical history of dyslipidemia, COPD group C by [id number] classification, aortic stenosis, paroxysmal atrial fibrillation, morbid obesity, GERD, CKD stage IIIB, tobacco use who presents for hospital follow up. The patient was admitted to [facility] from 08/18/2022 through 09/02/2022. She was transferred from [facility]. Patient was initially evaluated for [...] time of discharge she was sent to [place]hab. She was originally you from [...] 05/09/2023 1:00 PM EST Office Visit Cardiology, [facility] [address] [facility] [place] [address] Nabila Fields CRNP [address] [facility] [place] [address] 06/08/2023 11:20 AM EST Office Visit [facility] [address] [facility] [id number] Chana Stacy PA-C [address] [place] [address] Pending Results Name Type Priority Associated Diagnoses Date /Time COMPREHENSIVE METABOLIC PANEL Lab Routine PAULETTE (acute kidney injury) (HCC) 03/08/2023 9:47 AM EST CBC Lab Routine Macrocytic anemia 03/08/2023 9:47 AM EST Scheduled Orders Name Type Priority Associated Diagnoses Orde r Schedule COMPREHENSIVE METABOLIC PANEL Lab Routine PAULETTE (acute kidney injury) ([facility]) Expected: 03/08/2023 (Approximate), Expires: 03/07/2024 CBC Lab Routine Macrocytic anemia Expected: 03/08/2023 (Approximate), Expires: 03/07/2024 Health Maintenance Due Date Last Done Comments COVID-19 Vaccine (#1) 03/12/1951 Alpha-1 Antitrypsin 1966 Mammogram 1988 Cologuard 1993 Fecal Occult Blood Test 1993 Sigmoidoscopy 1993 Zoster Vaccines (1 of 2) 1998 Pneumococcal Vaccine: 65+ Years (3 - PPSV23 or PCV20) 07/02/2018 11/25/2016, 07/02/2013 *ADVANCE DIRECTIVE NOT ON FILE 10/06/2018 Depression Screening 12/07/2020 12/08/2019 DXA Scan 06/06/2021 06/06/2014 TSH 10/28/2021 10/28/2020, 04/24, 09/24/2018, Additional history exists CKD PHOS USE SMARTSET 22068 11/17/2021 11/17/2020 Influenza Vaccine (FLU shot) (#1) 2022 03/12/2013 Albumin/Creatinine Ratio 01/14/2023 01/14/2022 GFR 03/16/2023 09/13/2022, 010 06/2022, 01/14/2022, Additional history exists DTaP,Tdap,and Td Vaccines (2 - Td or Tdap) 07/03/2023 07/02/2013 CKD HGB USE SMARTSET 13647 09/14/202309/13, 04/26/2022, 04/26/2022, Additional history exists O2 ASSESSMENT COMPLETED IN PAST YEAR FOR COPD 09/17/2023 03/08/2023 Lipid Panel 04/26/2027 04/26/2022, 07/0 10/2020, 11/25/2016, [...] as of this encounter Visit Diagnoses Diagnosis Hospital discharge [...] Other - (no specific identity) Power of Stave Log Ripsaw Operator [phone] ([place]) Pino Rolando Other - (no specific identity) Power of Stave Log Ripsaw Operator Pari Sullivan Other - (no specific identity) Power of Stave Log Ripsaw Operator Care Teams Closing Specialist Relationship Specialty Start Date End Date Duglas Mayo MD [address] [place] [address] PCP - General Family Medicine 09/05/22 documented as of this encounter
--- OUTSIDE RECORDS SUMMARY | 2023-07-16 14:51 | External Medical Summary ---
Author Name Unknown Address Unknown Organization [id number]:[place] [place] [address] [place] [address] [place] [address] Laboratory Report Ordering Provider Test Date Status MISAEL CONNORS 03/08/2023 09:47:42 Final Observation Date Value Abnormality Reference (Units ) Status Ferritin 03/08/2023 09:47:42 240 Above high normal 13 -150 (ng/mL) Final Postmenopausal women have hi gher ferritin levels than pre-menopausal women. The above reference interval is based on pre-menopausal women. Performing Location [facility] - [address] [place] [address]
--- OUTSIDE RECORDS SUMMARY | 2023-07-16 14:51 | External Medical Summary | Summary of Care ---
Author Name Unknown Organization [facility] Address [address] [facility] [place] [address] Phone [phone] Care Team Providers Care Printing Plate Setter Name Role Phone Dgulas Mayo MD Primary Care Provider + [phone] Reason for Visit * Reason Onset Date Comments Advice 01/20/2023 Encounter Details Date Type Department Care Team Description 01/20/2023 Telephone Cardiology, [facility] [address] [place] [address] Corby Hanna DO [address] [place] [address] Advice Allergies Active Allergy Reactions Severity Noted Date Comments Methylprednisolone Sodium Succ 12/06 Dog Dander Low 03/20/2019 Other reaction(s): Sneezing Food (See Comments) 02/23/2018 Duck eggs Swelling Pollen 08/25/2015 Nystatin 01/17/2019 Allergic reaction Pollen Extract 03/20/2019 Other reaction(s): HAYFEVER documented as of this encounter (statuses as of 02/03/2023) Medications Medication Sig Dispensed Refills Start Date [...] Additional Information Patient not taking.Reported on 12/21/2022 Flovent HFA 220 MCG/ACT Inhalation Aerosol TAKE 2 PUFFS BY MOUTH TWICE A DAY Strength: 220 MCG/ACT 36 g 2 03/08/2022 Active Compressor NebulizerIndications :COPD, group C, by [...] Active Additional Information Patient taking differently:50 mg [id number] PRN, Pain, Moderate, Reported on 09/16/2022 Furosemide 20 MG Oral Tablet (Lasix)Indications:A cute congestive heart failure ([facility]),PAULETTE (acute kidney injury) ([facility]) TAKE 2 TABLETS BY MOUTH EVERY MORNING 180 Tablet 1 07/09/2022 Active Simvastatin 10 MG Oral Tablet (Zocor) TAKE 1 TABLET BY MOUTH EVERYDAY AT BEDTIME 90 Tablet 1 07/09/2022 Active Ferrous Sulfate 325 (65 Fe) MG Oral Tablet (Feosol)Indications: Macrocytic anemia TAKE 1 TABLET BY MOUTH EVERY DAY AT 12 90 Tablet 0 08/11/2022 Active Levothyroxine Sodium 25 MCG Oral Tablet (Levoxyl)Indications :Acquired hypothyroidism TAKE 1 TAB BY MOUTH DAILY FIRST THING IN THE AM AT LEAST 30 MIN PRIOR TO BREAKFAST OR OTHER MEDS 90 Tablet 0 08/24/2022 Active Additional Information Patient taking differently: 50 mcg, TAKE 1 TAB BY MOUTH DAILY FIRST THING IN THE AM AT LEAST 30 MIN PRIOR TO BREAKFAST OR OTHER MEDS, Reported on 12/21/2022 Metoprolol Succinate ER 25 MG Oral Tablet [...] Administer 150 mL intravenously daily. 0 Active documented as of this encounter (statuses as of 02/03/2023) Active Problems Problem Noted Date PAULETTE (acute kidney injury) 06/06/2022 Chronic kidney disease, stage 3b 022 Overview: Per CKD protocol Class 3 severe obesity with serious comorbidity and body mass index (BMI) of 50.0 to 59.9 in adult 01/14/2022 Multifocal pneumonia 06/10/2019 Macrocytic anemia 06/10/2019 S/P TAVR (transcatheter aortic valve rep lacement) 05/09/2019 Dyslipidemia 12/17/2018 Asthma with irreversible air way obstruction, unspecified asthma severity, uncomplicated 11/06/2018 Congestive heart failure due to valvular disease 11/06/2018 Paroxysmal atrial fibrillation 9 COPD, group C, by GOLD 2017 classificati on 10/01/2018 Overview: Per COPD GOLD Classification MEDICATION USE AGREEMENT 11/25/2016 Gastroesophageal reflux disease without esophagitis 08/13/2015 Tobacco use 08/20/2014 Arthritis of knee Aortic stenosis Morbid obesity documented as of this encounter (statuses as of 02/03/2023) Resolved Problems Problem Noted Date Resolved Date Chronic kidney disease, stage 3a 11/02/2020 02/03/2022 Overview: Per CKD protocol Morbid obesity with body mas s index (BMI) of 45.0 to 49.9 in adult 11/14/2019 10/28/2020 S/P TAVR (transcatheter aortic valve replacement ) 06/10/2019 06/19/2019 Thrombocytopenia 06/10/2019 06/19/2019 Septic shock 06/05/2019 06/19/2019 Morbid obesity with body mas s index (BMI) of 45.0 to 49.9 in adult 02/08/2019 07/04/2019 Class 2 severe obesity due t o excess calories with serious comorbidity and body mass index (BMI) of 38.0 to 38.9 in adult 11/06/2018 01/04/2019 COPD, severity to be determined 02/23/2018 10/03/2018 Overview: Per COPD GOLD Classification Body mass index (BMI) of 40.0 to 44.9 in adult 1 02/08/2019 Overview: Per Obesity protocol #1 Shingles 08/13/2015 01/25/2017 Dyslipidemia, goal LDL below 100 04/01/2013 09/05/2017 Dyslipidemia, goal to be determined 04/01/2013 Esophageal reflux 08/13/2015 documented as of this encounter (statuses as of 02/03/2023) Immunizations Name Administration Dates Next Due Pneumococcal [...] drink = 0.6 oz pur e alcohol) Sex Assigned at Date Recorded Not on file Job Start Date Occupation Industry Not on [...] or making decisions? (5 years old or older No 06/05/2019 documented as of this encounter Miscellaneous Notes * Telephone Encounter - Landon Pendleton PA-C - 02/03/2023 2:[address] [facility] coverage for Dr. Jacques Sheldon is retired Patient lives in [place] ? Dr. Chambers in [place] ? Landon Pendleton PA-C. Department of Cardiology * Telephone Encounter - BASILIA Ellis - 01/23/2023 8:39 AM EDT Spoke with Theresa. She is aware that Dr. Hanna is out of the office for 2 weeks. She is going to schedule Celia with Dr. Sheldon at [facility]. * Telephone Encounter - BASILIA Bourne - 01/20/2023 4:36 PM EDT Sister Theresa called in to leave a message for Dr. Hanna so that he can give her a call back regarding pt needing to see a kidney physician, wanted his recommendation for the area, wanted a call backat [phone], she also noted that she does not have access to her voice mail. documented in this encounter Plan of Treatment Upcoming Encounters Date Type Specialty Care Team Description 05/09/2023 Office Visit Cardiology Nabila Fields CRNP [address] [place] [address] Health Maintenance Due Date Last Done Comments [...] Additional history exists CKD PHOS USE SMARTSET 77743 11/17/2021 11/17/2020 Influenza Vaccine (FLU shot) (#1) 2022 03/12/2013 Albumin/Creatinine Ratio 01/14/2023 01/14/2022 GFR 03/16/2023 09/13/2022, 06/2022, 01/14/2022, Additional history exists DTaP,Tdap,and Td Vaccines (2 - Td or Tdap) 07/03/2023 07/02/2013 CKD HGB USE SMARTSET 93486 09/14/202309/13, 04/26/2022, 04/26/2022, Additional history exists O2 ASSESSMENT COMPLETED IN PAST YEAR FOR COPD 09/17/2023 09/16/2022 Lipid Panel 04/26/2027 04/26/2022, 07/0 10/2020, 11/25/2016, [...] Other - (no specific identity) Power of Heat Treat Furnace Operator Pino Marshall Other - (no specific identity) Power of Heat Treat Furnace Operator Pari Sullivan Other - (no specific identity) Power of Heat Treat Furnace Operator Care Teams Printing Plate Setter Relationship Specialty Start Date End Date Duglas Mayo MD [address] [place] [address] PCP - General Family Medicine 09/05/22 documented as of this encounter
--- OUTSIDE RECORDS SUMMARY | 2023-07-16 14:51 | External Medical Summary | Summary of Care ---
Author Name Unknown Organization [facility] Address [address] [place] [address] Phone [phone] Care Team Providers Care Industrial Property Appraiser Name Role Phone Duglas Mayo MD Primary Care Provider + [phone] Reason for Visit * Reason Onset Date Comments Order Request 03/09/2023 Encounter Details Date Type Department Care Team (Late st Contact Info) Description 03/09/2023 Telephone [facility] [address] [place] [address] AugustMarkell MD [address] [place] [address] Order Request Allergies Active Allergy [...] :COPD, group C, by GOLD 2017 classification ([facility]) Inhale via nebulizer . Use as [...] COPD, group C, by GOLD 2017 classification ([facility]),Asthma with irreversible airway obstruction, unspecified asthma severity, uncomplicated ([facility]) INHALE 2 PUFFS BY MOUTH EVERY 6 HOURS NEEDED FOR WHEEZING 54 g 1 05/15/2022 Active Pantoprazole Sodium 40 MG Oral Tablet Delayed Release (Protonix)Indication s:Esophageal reflux Take 1 Tablet by mouth in the morning and 1 Tablet before bedtime. 180 Tablet 1 05/25/2022 Active Nebulizer/Tubing/Yecenia thpiece KitIndications:COPD, group C, by GOLD 2017 classification ([facility]) Use to nebulize medicaitons 1 Kit 1 05/25/2022 Active traMADol HCl 50 MG Oral Tablet (Ultram)Indications: Bilateral primary osteoarthritis of knee Take 1 Tablet by mouth every 6 hours as needed for Pain, Moderate. 30 Tablet 0 06/06/2022 Active Additional Information Patient taking differently:50 mg [id number] PRN, Pain, Moderate, Reported on 09/16/2022 Simvastatin [...] have qualified for home O2 on leaving [facility] or she would have been sent home [...] prior to discharge. I don't see the [facility] or [facility] discharge summary in [facility]. We do have notes from [facility] and her sats there were good - again, suggesting a change in status and need for eval. * Telephone Encounter - Lydia May LPN - 03/09/2023 1:30 PM EST Pt is requesting an order for oxygen. She was on oxygen when she was in [facility]. She came home yesterday and feels she [...] If so, where?: [facility] in [place] Fax Number, if applicable: n/a Call Back Number: [phone] Thank you, Winifred Rene Brand Manager [facility] ([facility]) (formerly Telepharmacy) 03/09/2023, 12:17 PM documented in this encounter Plan of Treatment Upcoming Encounters Date Type Department Care Team (Late st Contact Info) Description 05/09/2023 1:00 PM EST Office Visit Cardiology, [facility] [address] [facility] [place] [address] Nabila Fielsd CRNP [address] [place] [address] 06/08/2023 11:20 AM EST Office Visit [facility] [place] [address] [facility] [id number] Chana Stacy PA-C [address] [place] [place] [address] Health Maintenance Due Date Last Done Comments COVID-19 Vaccine (#1) 03/12/1951 Alpha-1 Antitrypsin 1966 Mammogram 1988 Cologuard 1993 Fecal Occult Blood Test 1993 Sigmoidoscopy 1993 Zoster Vaccines (1 of 2) 1998 Pneumococcal Vaccine: 65+ Years (3 - PPSV23 or PCV20) 07/02/2018 11/25/2016, 07/02/2013 *ADVANCE DIRECTIVE NOT ON FILE 10/06/2018 Depression Screening 12/07/2020 12/08/2019 DXA Scan 06/06/2021 06/06/2014 CKD PHOS USE SMARTSET 71892 11/17/2021 11/17/2020 Influenza Vaccine (FLU shot) (#1) 2022 03/12/2013 Albumin/Creatinine Ratio 01/14/2023 01/14/2022 DTaP,Tdap,and Td Vaccines (2 - Td or Tdap) 07/03/2023 07/02/2013 GFR 09/06/2023 03/08/2023, 05/06/2022, 04/26/2022, Additional history exists CKD HGB USE SMARTSET 12800 03/08/202403/08, 09/13/2022, 04/26/2022, Additional history exists O2 [...] Other - (no specific identity) Power of Solar Installer Pv Pino Rolando Other - (no specific identity) Power of Solar Installer Pv Pari Sullivan Other - (no specific identity) Power of Solar Installer Pv Care Teams Industrial Property Appraiser Relationship Specialty Start Date End Date Duglas Mayo MD [address] [place] [address] PCP - General Family Medicine 09/05/22 documented as of this encounter
--- OUTSIDE RECORDS SUMMARY | 2023-07-16 14:51 | External Medical Summary | Summary of Care ---
Author Name Unknown Organization [facility] Address [address] [place] [address] Phone [phone] Care Team Providers Care Drill Press Hand Name Role Phone Duglas Mayo MD Primary Care Provider + [phone] Reason for Visit * Reason Onset Date Comments Order Request 03/09/2023 Encounter Details Date Type Department Care Team (Late st Contact Info) Description 03/09/2023 Telephone [facility] [address] [place] [address] AugustMarkell MD [address] [place] [address] Order Request Allergies Active Allergy Reactions Criticality Noted Date Comments Methylprednisolone Sodium Succ 12/06 Dog Dander Low 03/20/2019 Other reaction(s): Sneezing Food (See Comments) 02/23/2018 Duck eggs Swelling Pollen 08/25/2015 Nystatin 01/17/2019 Allergic reaction Pollen Extract 03/20/2019 Other reaction(s): HAYFEVER documented as of this encounter (statuses as of 03/09/2023) Medications Medication Sig Dispensed Refills Start Date [...] KitIndications:COPD, group C, by GOLD 2017 classification ([facility]) Use to nebulize medicaitons 1 Kit 1 05/25/2022 Active traMADol HCl 50 MG Oral Tablet (Ultram)Indications: Bilateral primary osteoarthritis of knee Take 1 Tablet by mouth every 6 hours as needed for Pain, Moderate. 30 Tablet 0 06/06/2022 Active Additional Information Patient taking differently:50 mg [id number] PRN, Pain, Moderate, Reported on 09/16/2022 Simvastatin [...] as of this encounter (statuses as of 03/09/2023) Active Problems Problem Noted Date Diagnosed Date [...] as of this encounter (statuses as of 03/09/2023) Resolved Problems Problem Noted Date Diagnosed Date [...] as of this encounter (statuses as of 03/09/2023) Immunizations Name Administration Dates Next Due Pneumococcal [...] was on oxygen when she was in [facility]. She came home yesterday and feels she [...] If so, where?: [facility] in [place] Fax Number, if applicable: n/a Call Back Number: [phone] Thank you, Winifred Rene Ramp Lead [facility] ([facility]) (formerly Telepharmacy) 03/09/2023, 12:17 PM documented in this encounter Plan of Treatment Upcoming Encounters Date Type Department Care Team (Late st Contact Info) Description 05/09/2023 1:00 PM EST Office Visit Cardiology, [facility] [address] [facility] [place] [address] Nabila Fields CRNP [address] [facility] [place] [address] 06/08/2023 11:20 AM EST [facility] [address] [place] [address] Chana Stacy PA-C [address] [place] [address] Health Maintenance Due Date Last Done Comments COVID-19 Vaccine (#1) 03/12/1951 Alpha-1 Antitrypsin 1966 Mammogram 1988 Cologuard 1993 Fecal Occult Blood Test 1993 Sigmoidoscopy 1993 Zoster Vaccines (1 of 2) 1998 Pneumococcal Vaccine: 65+ Years (3 - PPSV23 or PCV20) 07/02/2018 11/25/2016, 07/02/2013 *ADVANCE DIRECTIVE NOT ON FILE 10/06/2018 Depression Screening 12/07/2020 12/08/2019 DXA Scan 06/06/2021 06/06/2014 CKD PHOS USE SMARTSET 18418 11/17/2021 11/17/2020 Influenza Vaccine (FLU shot) (#1) 2022 03/12/2013 Albumin/Creatinine Ratio 01/14/2023 01/14/2022 DTaP,Tdap,and Td Vaccines (2 - Td or Tdap) 07/03/2023 07/02/2013 GFR 09/06/2023 03/08/2023, 08/23, 04/26/2022, Additional history exists CKD HGB USE SMARTSET 63100 03/08/202403/08, 09/13/2022, 04/26/2022, Additional history exists O2 [...] Other - (no specific identity) Power of Rv Servicer Pino Rolando Other - (no specific identity) Power of Rv Servicer Pari Sullivan Other - (no specific identity) Power of Rv Servicer Care Teams Drill Press Hand Relationship Specialty Start Date End Date Duglas Mayo MD [address] [place] [address] PCP - General Family Medicine 09/05/22 documented as of this encounter
--- OUTSIDE RECORDS SUMMARY | 2023-07-16 14:51 | External Medical Summary | Summary of Care ---
Author Name Unknown Organization [facility] Address [address] [place] [address] Phone [phone] Care Team Providers Care Upkeep Worker Name Role Phone Duglas Mayo MD Primary Care Provider Reason for Visit * Reason Onset Date Comments Advice 02/15/2023 Encounter Details Date Type Department Care Team (Late st Contact Info) Description 02/15/2023 Telephone Family Practice [facility] [address] [facility] [place] [address] Duglas Mayo MD [address] [facility] [address] [place] [address] Advice Allergies Active Allergy Reactions Criticality Noted Date Comments Methylprednisolone Sodium Succ 12/06 Dog Dander Low 03/20/2019 Other reaction(s): Sneezing Food (See Comments) 02/23/2018 Duck eggs Swelling Pollen 08/25/2015 Nystatin 01/17/2019 Allergic reaction Pollen Extract 03/20/2019 Other reaction(s): HAYFEVER documented as of this encounter (statuses as of 02/16/2023) Medications Medication Sig Dispensed Refills Start Date [...] :COPD, group C, by GOLD 2017 classification ([facility]) Inhale via nebulizer . Use [...] COPD, group C, by GOLD 2017 classification ([facility]),Asthma with irreversible airway obstruction, unspecified asthma severity, uncomplicated ([facility]) INHALE 2 PUFFS BY MOUTH EVERY 6 HOURS NEEDED FOR WHEEZING 54 g 1 05/15/2022 Active Pantoprazole Sodium 40 MG Oral Tablet Delayed Release (Protonix)Indication s:Esophageal reflux Take 1 Tablet by mouth in the morning and 1 Tablet before bedtime. 180 Tablet 1 05/25/2022 Active Nebulizer/Tubing/Yecenia thpiece KitIndications:COPD, group C, by GOLD 2017 classification ([facility]) Use to nebulize medicaitons 1 Kit 1 05/25/2022 Active traMADol HCl 50 MG Oral Tablet (Ultram)Indications: Bilateral primary osteoarthritis of knee Take 1 Tablet by mouth every 6 hours as needed for Pain, Moderate. 30 Tablet 0 06/06/2022 Active Additional Information Patient taking differently:50 mg [id number] PRN, Pain, Moderate, Reported on 09/16/2022 Furosemide 20 MG Oral Tablet (Lasix)Indications:A cute congestive heart failure ([facility]),PAULETTE (acute kidney injury) ([facility]) TAKE 2 TABLETS BY MOUTH [...] as of this encounter (statuses as of 02/16/2023) Active Problems Problem Noted Date Diagnosed Date [...] as of this encounter (statuses as of 02/16/2023) Resolved Problems Problem Noted Date Diagnosed Date [...] as of this encounter (statuses as of 02/16/2023) Immunizations Name Administration Dates Next Due Pneumococcal [...] encounter Miscellaneous Notes * Telephone Encounter - Kelley Matthew LPN - 02/16/2023 9:17 AM EDT [facility]. She has been there since June and will be d/c in February. There is a POA in place between 3 people and there is a lot of conflict between them. This is just an FYI from Theresa. Front office-please assist in scheduling a hospital/rehab d/c appointment. * Telephone Encounter - BASILIA Mclean - 02/15/2023 2:29 PM EDT Will be D/C from alf on 03/07/23 and be brought home to [facility] - Dr Stacy Someone told the pt she should not be there Asking Dr Stacy not to issue a Mental Health order on the pt - please call the pt's sister to discuss [phone] land line DO NOT LEAVE ANY MESSAGEs BC SHE CANNOT RETRIEVE THEM!! documented in this encounter Plan of Treatment Upcoming Encounters Date Type Department Care Team (Late st Contact Info) Description 05/09/2023 1:00 PM EST Office Visit Cardiology, [facility] [address] [place] [address] Nabila Fields CRNP [address] [place] [address] Health Maintenance Due Date Last Done Comments [...] Additional history exists CKD PHOS USE SMARTSET 17248 11/17/2021 11/17/2020 Influenza Vaccine (FLU shot) (#1) 2022 03/12/2013 Albumin/Creatinine Ratio 01/14/2023 01/14/2022 GFR 03/16/2023 09/13/2022, 0106/2022, 01/14/2022, Additional history exists DTaP,Tdap,and Td Vaccines (2 - Td or Tdap) 07/03/2023 07/02/2013 CKD HGB USE SMARTSET 47705 09/14/202309/13, 04/26/2022, 04/26/2022, Additional history exists O2 [...] Other - (no specific identity) Power of Ice Cutter Pino Rolando Other - (no specific identity) Power of Ice Cutter Pari Sullivan Other - (no specific identity) Power of Ice Cutter Care Teams Upkeep Worker Relationship Specialty Start Date End Date Duglas Mayo MD [address] [place] [address] PCP - General Family Medicine 09/05/22 documented as of this encounter
--- OUTSIDE RECORDS SUMMARY | 2023-07-16 14:51 | External Medical Summary | Summary of Care ---
Author Name Unknown Organization [facility] Address [address] [place] [address] Phone [phone] Care Team Providers Care Field Consultant Name Role Phone Duglas Mayo MD Primary Care Provider + [phone] Reason for Visit * Reason Comments Outpatient Testing Encounter Details Date Type Department Care Team (Late st Contact Info) Description 03/08/2023 9:50 AM EST Laboratory Laboratory, [place] [address] [place] [phone] [place] [address] [place] [address] COPD, group C, by GOLD 2017 classification ([facility]); Asthma with irreversible airway obstruction, unspecified asthma severity, uncomplicated ([facility]); Multifocal pneumonia; Hypoxia; Encounter for long-term (current) use of medications; [employer] Other*[id number]; Hypothyroidism, unspecified type; PAULETTE (acute kidney injury) ([facility]); Macrocytic anemia Allergies Active Allergy Reactions Criticality [...] Active Additional Information Patient taking differently:50 mg [id number] PRN, Pain, Moderate, Reported on 09/16/2022 Simvastatin [...] Oral Tablet (Lasix)Indications:A cute congestive heart failure (H[facility]),PAULETTE (acute kidney injury) [...] 1:00 PM EST Office Visit [facility] [place] [address] Nabila Fields CRNP [address] [place] [address] 06/08/2023 11:20 AM EST Office Visit [facility] [address] [facility] [phone] Chana Stacy PA-C [address] [facility] [place] [address] Pending Results Name Type Priority Associated Diagnoses Date /Time TSH WITH FREE T4 IF INDICATED Lab Routine Encounter for long-term (current) use of medications 03/08/2023 9:47 AM EST FERRITIN Lab Routine Encounter for long-term (current) use of medications 03/08/2023 9:47 AM EST IRON SCREEN, INCLUDING TIBC Lab Routine Encounter for long-term (current) use of medications 03/08/2023 9:47 AM EST MYCODE SUBSEQUENT ADULT Lab Routine [employer] Other*[id number] 03/08/2023 9:47 AM EST COMPREHENSIVE METABOLIC PANEL Lab Routine PAULETTE (acute kidney injury) (HCC) 03/08/2023 9:47 AM EST CBC Lab Routine Macrocytic anemia 03/08/2023 9:47 AM EST MYCODE SST1 Lab Routine [employer] Other*[id number] 03/08/2023 9:47 AM EST MYCODE SST2 Lab Routine [employer] Other*[id number] 03/08/2023 9:47 AM EST Health Maintenance Due Date Last Done Comments [...] Additional history exists CKD PHOS USE SMARTSET 58811 11/17/2021 11/17/2020 Influenza Vaccine (FLU shot) (#1) 2022 03/12/2013 Albumin/Creatinine Ratio 01/14/2023 01/14/2022 GFR 03/16/2023 09/13/2022, 06/2022, 01/14/2022, Additional history exists DTaP,Tdap,and Td Vaccines (2 - Td or Tdap) 07/03/2023 07/02/2013 CKD HGB USE SMARTSET 46888 09/14/202309/13, 04/26/2022, 04/26/2022, Additional history exists O2 [...] (current) use of other medications [employer] Other*[id number] Hypothyroidism, unspecified type PAULETTE (acute kidney injury) [...] Other - (no specific identity) Power of Hr Consultant Pino Marshall Other - (no specific identity) Power of Hr Consultant Pari Sullivan Other - (no specific identity) Power of Hr Consultant Care Teams Field Consultant Relationship Specialty Start Date End Date Duglas Mayo MD [address] [place] [address] PCP - General Family Medicine 09/05/22 documented as of this encounter
--- OUTSIDE RECORDS SUMMARY | 2023-07-16 14:51 | External Medical Summary ---
Author Name Unknown Address Unknown Organization K01:[facility] - [address] [place] [address] Laboratory Report Ordering Provider Test Date Status WAYLONMISAEL 03/08/2023 09:47:42 Final Observation Date Value Abnormality Reference (Units ) Status Iron 03/08/2023 09:47:42 58 33-151 (ug /dL) Final Iron-binding capacity 03/08/2023 09:47:42 285 250-425 (ug/dL) Final Transferrin Sat % 03/08/2023 09:47:42 20 15 -55 (%) Final Performing Location [facility] - [address] [place] [address]
--- OUTSIDE RECORDS SUMMARY | 2023-07-16 14:51 | External Medical Summary | Summary of Care ---
Author Name Unknown Organization [facility] Address [address] [place] [address] Phone [phone] Care Team Providers Care Director Radio Name Role Phone Duglas Mayo MD Primary Care Provider Reason for Visit * Reason Onset Date Comments Advice 02/15/2023 Encounter Details Date Type Department Care Team (Late st Contact Info) Description 02/15/2023 Telephone Family Practice [facility] [address] [facility] [place] [address] Duglas Mayo MD 33 [facility] 1 [place] [address] Advice Allergies Active Allergy Reactions Criticality Noted [...] Active Additional Information Patient taking differently:50 mg [id number] PRN, Pain, Moderate, Reported on 09/16/2022 Furosemide 20 MG Oral Tablet (Lasix)Indications:A cute congestive heart failure ([facility]),PAULETTE (acute kidney injury) ([facility]) TAKE 2 TABLETS BY MOUTH [...] Matthew LPN - 02/16/2023 9:17 AM EDT [facility] rehab in [facility]. She has been there since June and will be d/c in February. There is a POA in place between 3 people and there is a lot of conflict between them. This is just an FYI from Theresa. * Telephone Encounter - BASILIA Mclean - 02/15/2023 2:29 PM EDT Will be D/C from assisted on 03/07/23 and be brought home to [facility] - Dr Stacy Someone told the pt she should not be there Asking Dr Stacy not to issue a Mental Health order on the pt - please call the pt's sister to discuss [phone] land line DO NOT LEAVE ANY MESSAGEs BC SHE CANNOT RETRIEVE THEM!! documented in this encounter Plan of Treatment Upcoming Encounters Date Type Department Care Team (Late st Contact Info) Description 05/09/2023 1:00 PM EST Office Visit Cardiology, [facility] [address] [place] [address] Nabila Fields CRNP [address] [place] [address] Health Maintenance Due Date Last Done Comments [...] Additional history exists CKD PHOS USE SMARTSET 05552 11/17/2021 11/17/2020 Influenza Vaccine (FLU shot) (#1) 2022 03/12/2013 Albumin/Creatinine Ratio 01/14/2023 01/14/2022 GFR 03/16/2023 09/13/2022, 01/0 06/2022, 01/14/2022, Additional history exists DTaP,Tdap,and Td Vaccines (2 - Td or Tdap) 07/03/2023 07/02/2013 CKD HGB USE SMARTSET 06613 09/14/202309/13, 04/26/2022, 04/26/2022, Additional history exists O2 [...] Other - (no specific identity) Power of Pheresis Specialist Pino Rolando Other - (no specific identity) Power of Pheresis Specialist Pari Sullivan Other - (no specific identity) Power of Pheresis Specialist Care Teams Director Radio Relationship Specialty Start Date End Date Duglas Mayo MD [address] [place] [address] PCP - General Family Medicine 09/05/22 documented as of this encounter
--- OUTSIDE RECORDS SUMMARY | 2023-07-16 14:51 | External Medical Summary ---
Author Name Unknown Address Unknown Organization K01:[facility] [address] [facility] [address] [address] Laboratory Report Ordering Provider Test Date Status 03/08/2023 09:47:42 Final Observation Date Value Abnormality Reference (Units ) Status WBC, Total 03/08/2023 09:47:42 10.88 Above high normal 4.00-10.80 (K/uL) Final RBC 03/08/2023 09:47:42 3.43 3.85-5.15 (M/uL) Final Hemoglobin 03/08/2023 09:47:42 11.0 Below low normal 12.0-15.3 (g/dL) Final HCT 03/08/2023 09:47:42 37.3 36.0-45.2 (%) Final MCV 03/08/2023 09:47:42 108.7 81.5-97.5 (fL) Final MCH 03/08/2023 09:47:42 32.1 27.0-34.0 (pg) Final MCHC 03/08/2023 09:47:42 29.5 32.0-36.0 (g/dL) Final RDW 03/08/2023 09:47:42 17.4 11.5-15.5 (%) Final Platelets 03/08/2023 09:47:42 245 140-400 (K/uL) Final MPV 03/08/2023 09:47:42 12.1 6.6-11.1 (fL) Final Nucleated erythrocytes/100 leukocytes [Ratio] in Blood by Automated count 03/08/2023 09:47:42 0 <=0 (/100 WBCs) Final Performing Location [facility] - [address] [place] [address]
--- OUTSIDE RECORDS SUMMARY | 2023-07-16 14:51 | External Medical Summary | Summary of Care ---
Author Name Unknown Organization [facility] Address [address] [place] [address] Phone [phone] Care Team Providers Care Funder Name Role Phone Duglas Mayo MD Primary Care Provider + [phone] Reason for Visit * Reason Onset Date Comments Order Request 03/09/2023 Encounter Details Date Type Department Care Team (Late st Contact Info) Description 03/09/2023 Telephone [facility] [address] [place] [address] AugustMarkell MD [address] [place] [address] Order Request Allergies Active Allergy [...] group C, by GOLD 2017 classification ([facility]) Inhale via nebulizer . Use as [...] group C, by GOLD 2017 classification ([facility]),Asthma with irreversible airway obstruction, unspecified asthma severity, uncomplicated ([facility]) INHALE 2 PUFFS BY MOUTH EVERY 6 HOURS NEEDED FOR WHEEZING 54 g 1 05/15/2022 Active Pantoprazole Sodium 40 MG Oral Tablet Delayed Release (Protonix)Indication s:Esophageal reflux Take 1 Tablet by mouth in the morning and 1 Tablet before bedtime. 180 Tablet 1 05/25/2022 Active Nebulizer/Tubing/Yecenia thpiece KitIndications:COPD, group C, by GOLD 2017 classification ([facility]) Use to nebulize medicaitons 1 Kit 1 05/25/2022 Active traMADol HCl 50 MG Oral Tablet (Ultram)Indications: Bilateral primary osteoarthritis of knee Take 1 Tablet by mouth every 6 hours as needed for Pain, Moderate. 30 Tablet 0 06/06/2022 Active Additional Information Patient taking differently:50 mg [id number] PRN, Pain, Moderate, Reported on 09/16/2022 Simvastatin [...] encounter Miscellaneous Notes * Telephone Encounter - Ritika Diaz OSA - 03/10/2023 1:16 PM EST Theresa calling on behalf of patient- informed her of previous message. Patient has difficulty when up and walking around- does not have any difficulty when in wheelchair or not moving around. * Telephone Encounter - Adam Fishcer MD - 03/10/2023 8:25 AM EST I have not seen patient in 6 years. Looks like she typically sees Chana although saw Dr Linton for hospital follow up. Suggest reviewingwith one of them. She must not have qualified for home O2 on leaving [facility] or she would have been sent home [...] prior to discharge. I don't see the [facility] or [facility] discharge summary in [facility]. We do have notes from [facility] and her sats there were good - again, suggesting a change in status and need for eval. * Telephone Encounter - Lydia May LPN - 03/09/2023 1:30 PM EST Pt is requesting an order for oxygen. She was on oxygen when she was in [facility]. She came home yesterday and feels she [...] If so, where?: [facility] in [place] Fax Number, if applicable: n/a Call Back Number: [phone] Thank you, Winifred Rene Polytechnic Registrar [facility] ([facility]) (formerly Telepharmacy) 03/09/2023, 12:17 PM documented in this encounter Plan of Treatment Upcoming Encounters Date Type Department Care Team (Late st Contact Info) Description 05/09/2023 1:00 PM EST Office Visit Cardiology, [facility] [address] [place] [address] Nabila Fields CRNP [address] [place] [address] 06/08/2023 11:20 AM EST [facility] [address] [facility] [phone] Chana Stacy PA-C [address] [facility] [place] [address] Health Maintenance Due Date Last Done Comments COVID-19 Vaccine (#1) 03/12/1951 Alpha-1 Antitrypsin 1966 Mammogram 1988 Cologuard 1993 Fecal Occult Blood Test 1993 Sigmoidoscopy 1993 Zoster Vaccines (1 of 2) 1998 Pneumococcal Vaccine: 65+ Years (3 - PPSV23 or PCV20) 07/02/2018 11/25/2016, 07/02/2013 *ADVANCE DIRECTIVE NOT ON FILE 10/06/2018 Depression Screening 12/07/2020 12/08/2019 DXA Scan 06/06/2021 06/06/2014 CKD PHOS USE SMARTSET 97849 11/17/2021 11/17/2020 Influenza Vaccine (FLU shot) (#1) 2022 03/12/2013 Albumin/Creatinine Ratio 01/14/2023 01/14/2022 DTaP,Tdap,and Td Vaccines (2 - Td or Tdap) 07/03/2023 07/02/2013 GFR 09/06/2023 03/08/2023, 08/23, 04/26/2022, Additional history exists CKD HGB USE SMARTSET 75194 03/08/202403/08, 09/13/2022, 04/26/2022, Additional history exists O2 [...] Other - (no specific identity) Power of Remediation Technician Pino Marshall Other - (no specific identity) Power of Remediation Technician Pari Sullivan Other - (no specific identity) Power of Remediation Technician Care Teams Funder Relationship Specialty Start Date End Date Duglas Mayo MD [address] [place] [address] PCP - General Family Medicine 09/05/22 documented as of this encounter
--- OUTSIDE RECORDS SUMMARY | 2023-07-16 14:51 | External Medical Summary | Summary of Care ---
Author Name Unknown Organization [facility] Address [address] [place] [address] Phone [phone] Care Team Providers Care Course Developer Name Role Phone Duglas Mayo MD Primary Care Provider + [phone] Reason for Visit * Reason Onset Date Comments Order Request 03/09/2023 Encounter Details Date Type Department Care Team (Late st Contact Info) Description 03/09/2023 Telephone [facility] [address] [place] [address] AugustMarkell MD [address] [place] [address] Order Request Allergies Active Allergy [...] Active Additional Information Patient taking differently:50 mg [id number] PRN, Pain, Moderate, Reported on 09/16/2022 Simvastatin [...] have qualified for home O2 on leaving [facility] or she would have been sent [...] prior to discharge. I don't see the [facility] or [facility] discharge summary in [facility]. We do have notes from [facility] and her sats there were good - again, suggesting a change in status and need for eval. * Telephone Encounter - Lydia May LPN - 03/09/2023 1:30 PM EST Pt is requesting an order for oxygen. She was on oxygen when she was in [facility]. She came home yesterday and feels [...] If so, where?: [facility] in [place] Fax Number, if applicable: n/a Call Back Number: [phone] Thank you, Winifred Rene Construction Sales Representative [facility] ([facility]) (formerly Telepharmacy) 03/09/2023, 12:17 PM documented in this encounter Plan of Treatment Upcoming Encounters Date Type Department Care Team (Late st Contact Info) Description 05/09/2023 1:00 PM EST Office Visit Cardiology, [facility] [address] [facility] [place] [address] Nabila Fields CRNP [address] [place] [address] 06/08/2023 11:20 AM EST Office Visit [facility] [place] [address] [facility] [place] [phone] Chana Stacy PA-C [address] [place] [facility] [address] Health Maintenance Due Date Last Done Comments COVID-19 Vaccine (#1) 03/12/1951 Alpha-1 Antitrypsin 1966 Mammogram 1988 Cologuard 1993 Fecal Occult Blood Test 1993 Sigmoidoscopy 1993 Zoster Vaccines (1 of 2) 1998 Pneumococcal Vaccine: 65+ Years (3 - PPSV23 or PCV20) 07/02/2018 11/25/2016, 07/02/2013 *ADVANCE DIRECTIVE NOT ON FILE 10/06/2018 Depression Screening 12/07/2020 12/08/2019 DXA Scan 06/06/2021 06/06/2014 CKD PHOS USE SMARTSET 46093 11/17/2021 11/17/2020 Influenza Vaccine (FLU shot) (#1) 2022 03/12/2013 Albumin/Creatinine Ratio 01/14/2023 01/14/2022 DTaP,Tdap,and Td Vaccines (2 - Td or Tdap) 07/03/2023 07/02/2013 GFR 09/06/2023 03/08/2023, 05/06/2022, 04/26/2022, Additional history exists CKD HGB USE SMARTSET 80103 03/08/202403/08, 09/13/2022, 04/26/2022, Additional history exists O2 [...] Other - (no specific identity) Power of Fall Intern Pino Rolando Other - (no specific identity) Power of Fall Intern Pari Sullivan Other - (no specific identity) Power of Fall Intern Care Teams Course Developer Relationship Specialty Start Date End Date Duglas Mayo MD [address] [place] [address] PCP - General Family Medicine 09/05/22 documented as of this encounter
--- OUTSIDE RECORDS SUMMARY | 2023-07-16 14:51 | External Medical Summary ---
Author Name Unknown Address Unknown Organization K01:[facility] - [address] [place] [address] Laboratory Report Ordering Provider Test Date Status KAYA GUERRERO 03/08/2023 09:47:42 Final Observation Date Value Abnormality Reference (Units ) Status MYCODE SPECIMEN-SST 03/08/2023 09:47:42 Freezing of extracted DNA, whole blood and/or serum. Final Performing Location [facility] [address] [facility] [address]
--- OUTSIDE RECORDS SUMMARY | 2023-07-16 14:51 | External Medical Summary | Summary of Care ---
Author Name Unknown Organization [facility] Address [address] [facility] [place] [address] Phone [phone] Care Team Providers Care Professional Engineer Name Role Phone Duglas Mayo MD Primary Care Provider [phone] Encounter Details Date Type Department Care Team Description 01/20/2023 Telephone Cardiology, [facility] [address] [place] [address] Corby Hanna, [address] [place] [address] Allergies Active Allergy Reactions Severity Noted Date Comments Methylprednisolone Sodium Succ 12/06 Dog Dander Low 03/20/2019 Other reaction(s): Sneezing Food (See Comments) 02/23/2018 Duck eggs Swelling Pollen 08/25/2015 Nystatin 01/17/2019 Allergic reaction Pollen Extract 03/20/2019 Other reaction(s): HAYFEVER documented as of this encounter (statuses as of 01/23/2023) Medications Medication Sig Dispensed Refills Start Date [...] COPD, group C, by GOLD 2017 classification ([facility] [...] KitIndications:COPD, group C, by GOLD 2017 classification ([facility]) Use to nebulize medicaitons 1 Kit 1 05/25/2022 Active traMADol HCl 50 MG Oral Tablet (Ultram)Indications: Bilateral primary osteoarthritis of knee Take 1 Tablet by mouth every 6 hours as needed for Pain, Moderate. 30 Tablet 0 06/06/2022 Active Additional Information Patient taking differently:50 mg [id number] PRN, Pain, Moderate, Reported on 09/16/2022 Furosemide 20 MG Oral Tablet (Lasix)Indications:A cute congestive heart failure ([facility]),PAULETTE (acute kidney injury) ([facility]) TAKE 2 TABLETS BY MOUTH [...] as of this encounter (statuses as of 01/23/2023) Active Problems Problem Noted Date PAULETTE (acute [...] as of this encounter (statuses as of 01/23/2023) Resolved Problems Problem Noted Date Resolved Date [...] as of this encounter (statuses as of 01/23/2023) Immunizations Name Administration Dates Next Due Pneumococcal [...] encounter Miscellaneous Notes * Telephone Encounter - BASILIA Ellis - 01/23/2023 8:39 AM EDT Spoke with Theresa. She is aware that Dr. Hanna is out of the office for 2 weeks. She is going to schedule Celia with Dr. Sheldon at [facility]. * Telephone Encounter - BASILIA Bourne - 01/20/2023 4:36 PM EDT Sister Theresa called in to leave a message for Dr. Hanna so that he can give her a call back regarding pt needing to see a kidney physician, wanted his recommendation for the area, wanted a call backat [phone], she also noted that she does not have access to her voice mail. documented in this encounter Plan of Treatment Health Maintenance Due Date Last Done Comments [...] Additional history exists CKD PHOS USE SMARTSET 12842 11/17/2021 11/17/2020 Influenza Vaccine (FLU shot) (#1) 2022 03/12/2013 Albumin/Creatinine Ratio 01/14/2023 01/14/2022 GFR 03/16/2023 09/13/2022, 01/0 06/2022, 01/14/2022, Additional history exists DTaP,Tdap,and Td Vaccines (2 - Td or Tdap) 07/03/2023 07/02/2013 CKD HGB USE SMARTSET 18785 09/14/202309/13, 04/26/2022, 04/26/2022, Additional history exists O2 [...] Other - (no specific identity) Power of Ceramic Coater Pino Marshall Other - (no specific identity) Power of Ceramic Coater Pari Sullivan Other - (no specific identity) Power of Ceramic Coater Care Teams Professional Engineer Relationship Specialty Start Date End Date Duglas Mayo MD [address] [place] [address] PCP - General Family Medicine 09/05/22 documented as of this encounter
--- OUTSIDE RECORDS SUMMARY | 2023-07-16 14:51 | External Medical Summary | Summary of Care ---
Author Name Unknown Organization [facility] Address [address] [place] [address] Phone [phone] Care Team Providers Care Equipment Operator/Laborer/Supervisor Name Role Phone Duglas Mayo MD Primary Care Provider [phone] Reason for Visit * Reason Onset Date Comments Advice 02/15/2023 Encounter Details Date Type Department Care Team (Late st Contact Info) Description 02/15/[address] [facility] [address] [facility] [place] [address] Duglas Mayo MD [address] [facility] 1 [place] [address] Advice Allergies Active Allergy Reactions Criticality Noted [...] :COPD, group C, by GOLD 2017 classification ([facility]) Inhale via nebulizer . Use [...] COPD, group C, by GOLD 2017 classification ([facility]),Asthma with irreversible airway obstruction, unspecified asthma severity, uncomplicated ([facility]) INHALE 2 PUFFS BY MOUTH EVERY 6 HOURS NEEDED FOR WHEEZING 54 g 1 05/15/2022 Active Pantoprazole Sodium 40 MG Oral Tablet Delayed Release (Protonix)Indication s:Esophageal reflux Take 1 Tablet by mouth in the morning and 1 Tablet before bedtime. 180 Tablet 1 05/25/2022 Active Nebulizer/Tubing/Yecenia thpiece KitIndications:COPD, group C, by GOLD 2017 classification ([facility]) Use to nebulize medicaitons 1 Kit 1 05/25/2022 Active traMADol HCl 50 MG Oral Tablet (Ultram)Indications: Bilateral primary osteoarthritis of knee Take 1 Tablet by mouth every 6 hours as needed for Pain, Moderate. 30 Tablet 0 06/06/2022 Active Additional Information Patient taking differently:50 mg [id number] PRN, Pain, Moderate, Reported on 09/16/2022 Furosemide 20 MG Oral Tablet (Lasix)Indications:A cute congestive heart failure ([facility]),PAULETTE (acute kidney injury) ([facility]) TAKE 2 TABLETS BY MOUTH [...] Miscellaneous Notes * Telephone Encounter - BASILIA Barclay - 02/16/2023 10:26 AM EDT Patient has already been scheduled. 02/16/2023 * Telephone Encounter - Kelley Matthew LPN - 02/16/2023 9:17 AM EDT [facility] in [facility]. She has been there since June and will be d/c in February. There is a POA in place between 3 people and there is a lot of conflict between them. This is just an FYI from Theresa. Front office-please assist in scheduling a hospital/rehab d/c appointment. * Telephone Encounter - BASILIA Mclean - 02/15/2023 2:29 PM EDT [facility]C from [facility]23 and be brought home to [facility] - Dr Stacy Someone told the pt she should not be there Asking Dr Stacy not to issue a Mental Health order on the pt - please call the pt's sister to discuss [phone] land line DO NOT LEAVE ANY MESSAGEs BC SHE CANNOT RETRIEVE THEM!! documented in this encounter Plan of Treatment Upcoming Encounters Date Type Department Care Team (Late st Contact Info) Description 03/08/2023 10:00 AM EST [facility] [address] [place] [phone] AugustMarkell MD [address] [place] [address] 05/09/2023 1:00 PM EST Office Visit Cardiology, [facility] [address] [facility] [place] [address] Nabila Fields CRNP [address] [place] [address] Health Maintenance Due Date Last Done Comments [...] Additional history exists CKD PHOS USE SMARTSET 34970 11/17/2021 11/17/2020 Influenza Vaccine (FLU shot) (#1) 2022 03/12/2013 Albumin/Creatinine Ratio 01/14/2023 01/14/2022 GFR 03/16/2023 09/13/2022, 01/0 06/2022, 01/14/2022, Additional history exists DTaP,Tdap,and Td Vaccines (2 - Td or Tdap) 07/03/2023 07/02/2013 CKD HGB USE SMARTSET 41481 09/14/202309/13, 04/26/2022, 04/26/2022, Additional history exists O2 [...] Other - (no specific identity) Power of Executive Pilot Pino Rolando Other - (no specific identity) Power of Executive Pilot Pari Sullivan Other - (no specific identity) Power of Executive Pilot Care Teams Equipment Operator/Laborer/Supervisor Relationship Specialty Start Date End Date Duglas Mayo MD [address] [id number] PCP - General Family Medicine 09/05/22 documented as of this encounter
--- OUTSIDE RECORDS SUMMARY | 2023-07-16 14:51 | External Medical Summary | Summary of Care ---
Author Name Unknown Organization [facility] Address [address] [facility] [place] [address] Phone [phone] Care Team Providers Care Wrapper Layer And Examiner Soft Work Name Role Phone Duglas Mayo MD Primary Care Provider [phone] Encounter Details Date Type Department Care Team Description 11/03/2022 Telephone Cardiology, [facility] [address] [place] [address] Corby Hanna, [address] [place] [address] Allergies Active Allergy Reactions Severity Noted Date Comments Methylprednisolone Sodium Succ 12/06 Dog Dander Low 03/20/2019 Other reaction(s): Sneezing Food (See Comments) 02/23/2018 Duck eggs Swelling Pollen 08/25/2015 Nystatin 01/17/2019 Allergic reaction Pollen Extract 03/20/2019 Other reaction(s): HAYFEVER documented as of this encounter (statuses as of 02/02/2023) Medications Medication Sig Dispensed Refills Start Date [...] Active Additional Information Patient taking differently:50 mg [id number] PRN, Pain, Moderate, Reported on 09/16/2022 Furosemide 20 MG Oral Tablet (Lasix)Indications:A cute congestive heart failure ([facility]),PAULETTE (acute kidney injury) [...] as of this encounter (statuses as of 02/02/2023) Active Problems Problem Noted Date PAULETTE (acute [...] as of this encounter (statuses as of 02/02/2023) Resolved Problems Problem Noted Date Resolved Date [...] as of this encounter (statuses as of 02/02/2023) Immunizations Name Administration Dates Next Due Pneumococcal [...] Miscellaneous Notes * Telephone Encounter - BASILIA Gray - 11/03/2022 12:44 PM EDT Patient was offered a sleeping pill at the nursing facility she is residing in. Sister is calling in asking if this is safe with her heart condition.. Please call sister (Theresa) [phone] documented in this encounter Plan of Treatment Upcoming Encounters Date Type Specialty Care Team Description 05/09/2023 Office Visit Cardiology Nabila Fields CRNP [address] [place] [address] Health Maintenance Due Date Last Done Comments [...] Additional history exists CKD PHOS USE SMARTSET 64551 11/17/2021 11/17/2020 Influenza Vaccine (FLU shot) (#1) 2022 03/12/2013 Albumin/Creatinine Ratio 01/14/2023 01/14/2022 GFR 03/16/2023 09/13/2022, 01/0 06/2022, 01/14/2022, Additional history exists DTaP,Tdap,and Td Vaccines (2 - Td or Tdap) 07/03/2023 07/02/2013 CKD HGB USE SMARTSET 79901 09/14/202309/13, 04/26/2022, 04/26/2022, Additional history exists O2 [...] Other - (no specific identity) Power of Crocheter Hand Pino Marshall Other - (no specific identity) Power of Crocheter Hand Pari Sullivan Other - (no specific identity) Power of Crocheter Hand Care Teams Wrapper Layer And Examiner Soft Work Relationship Specialty Start Date End Date Duglas Mayo MD [address] [place] [address] PCP - General Family Medicine 09/05/22 documented as of this encounter
--- OUTSIDE RECORDS SUMMARY | 2023-07-16 14:52 | External Medical Summary | Summary of Care ---
Author Name Unknown Organization [facility] Address [address] [place] [address] Phone [phone] Care Team Providers Care Party Plan Sales Unit Advisor Name Role Phone Duglas Mayo MD Primary Care Provider [phone] Encounter Details Date Type Department Care Team Description 01/20/2023 Telephone Cardiology, [facility] [address] [place] [address] Corby Hanna, [address] [place] [address] Allergies Active Allergy Reactions Severity Noted Date [...] Active Additional Information Patient taking differently:50 mg [id number] PRN, Pain, Moderate, Reported on 09/16/2022 Furosemide 20 MG Oral Tablet (Lasix)Indications:A cute congestive heart failure ([facility]),PAULETTE (acute kidney injury) ([facility]) TAKE 2 TABLETS BY MOUTH EVERY MORNING [...] Miscellaneous Notes * Telephone Encounter - BASILIA Bourne - 01/20/2023 4:36 PM EDT Sister Theresa called in to leave a message for Dr. Hanna so that he can give her a call back regarding pt needing to see a kidney physician, wanted his recommendation for the area, wanted a call backat [phone], she also noted that she does not [...] Additional history exists CKD PHOS USE SMARTSET 49186 11/17/2021 11/17/2020 Influenza Vaccine (FLU shot) (#1) 2022 03/12/2013 Albumin/Creatinine Ratio 01/14/2023 01/14/2022 GFR 03/16/2023 09/13/2022, 06/2022, 01/14/2022, Additional history exists DTaP,Tdap,and Td Vaccines (2 - Td or Tdap) 07/03/2023 07/02/2013 CKD HGB USE SMARTSET 52756 09/14/202309/13, 04/26/2022, 04/26/2022, Additional history exists O2 [...] Other - (no specific identity) Power of Surgical Services Tech Pino Rolando Other - (no specific identity) Power of Surgical Services Tech Pari Sullivan Other - (no specific identity) Power of Surgical Services Tech Care Teams Party Plan Sales Unit Advisor Relationship Specialty Start Date End Date Duglas Mayo MD [address] [place] [address] PCP - General Family Medicine 09/05/22 documented as of this encounter
[2023-07-16 15:20] LABS: Basophils # (auto) 0.04 K/uL (0.00-0.20); Basophils % (auto) 0.3 %; Eosinophils # (auto) 0.18 K/uL (0.00-0.50); Eosinophils % (auto) 1.3 %; Hematocrit (blood only) 39.4 % (37.0-47.0); Hemoglobin 12.4 g/dl (12.0-16.0); Immature Granulocytes # (auto) 0.09 K/uL (0.01-0.20); Immature Granulocytes % (auto) 0.7 %; Lymphocytes % (auto) 8.1 %; Mean Corpuscular Hemoglobin 31.3 pg (25.0-34.0); Mean Corpuscular Hgb Conc 31.5 g/dL (32.0-36.0); Mean Corpuscular Volume 99.5 fL (80.0-100.0); Mean Platelet Volume 11.9 fL (9.4-12.4); Monocytes # (auto) 1.21 K/uL (0.11-0.59); Monocytes % (auto) 8.9 %; Neutrophils % (auto) 80.7 %; Platelet Count 147 K/uL (130-400); RDW Coefficient of Variation 16.6 % (11.5-14.5); RDW Standard Deviation 60.5 fL (36.4-46.3); Red Blood Count 3.96 M/uL (4.20-5.40); White Blood Count 13.52 K/ul (4.8-10.8)
[2023-07-16 15:33] LABS: Appearance Urine Clear (Clear); Bacteria Urine Automated 4+ (Negative); Bilirubin Urine Negative (Negative); Blood Urine Trace (Negative); Color Urine Yellow; Epithelial Cell Urine Auto 20-30 /lpf (0-5); Glucose Urine UA Negative (Negative); Ketones Urine Negative (Negative); Leukocyte Esterase Urine 3+ (Negative); Nitrite Urine Negative (Negative); Protein Urine Negative (Negative); RBC Urine Automated 0-4 /hpf (0-4); Specific Gravity Urine 1.011 (1.000-1.030); Urobilinogen Urine Negative (Negative); WBC Urine Automated >30 /hpf (0-5)
[2023-07-16 15:39] LABS: BUN Creatinine Ratio 15.5 (10-20); Bilirubin Direct 0.2 mg/dl (0-0.2); Bilirubin,Total 0.5 mg/dl (0.2-1.0); Calcium 9.4 mg/dl (8.6-10.3); Creatinine Clr Calc Pharmacy 32.1 ml/min; Est GFR (African American) 26.8 ml/min; Est GFR (Non-African American) 23.1 ml/min; Magnesium 2.2 mg/dl (1.7-2.4); Potassium 4.2 mmol/L (3.5-5.1)
--- NOTE | 2023-07-16 15:43 | CT Scan Report ---
CT head/brain wo con CLINICAL HISTORY: headache Technique: Contiguous axial CT images of the head were acquired from the base of the skull to the salma josé luis without intravenous contrast administration. Images were viewed in brain, subdural and bone [facility]. Automated dose lowering techniques and/or adjustment according to patient size were utilized for this exam. Comparison: Comparison is made to CT head 08/20/2022 Findings: The ventricles, basal cisterns, and cerebral sulci are normal. There is no acute intracranial hemorrh age or evidence of acute territorial infarction. Neither mass effect, shift of the midline structures , nor abnormal extra-axial fluid collections are shown. Imaged portions of the paranasal sinuses and mastoid air cells are clear. The orbits appear normal. There are no acute fractures of the calvaria or scalp swelling. Impression: No acute intracranial hemorrhage, no evidence of acute territorial infarction or other acute intracra nial disease process. ACT 112: Negative or not required by law. Electronically signed by: Gage Birmingham M.D. 07/16/2023 3:40 PM
[2023-07-16 15:45] LABS: Troponin I High Sensitivity 10.8 pg/ml (0-14)
[2023-07-16 15:49] LABS: INR 0.9 (0.9-1.1); Partial Thromboplastin Time 28 Seconds (21-31); Prothrombin Time 10.4 Seconds (9.0-12.0)
--- NOTE | 2023-07-16 16:11 | Emergency Department Note ---
History of Present Illness General Chief complaint: Headache Time Seen by Provider: 07/16/23 14:53 Source: patient, family (Sisters at the bedside), RN notes reviewed and old records reviewed (09/02/22-discharge summary for when the patient was in the hospital for pneumonia and possible endocarditis) Mode of arrival: ambulatory Limitations: no limitations History of Present Illness Maximum Pain Intensity: 9 This patient is a 72-year-old female who has a complex medical history, comes in with multiple complaints. She says a little bit of everything's been going on. She has had a headache and she has been shaky she has had a cough with yellowish phlegm. She is seen by Dr. Martin. She is a runny nose. She denies nausea ,vomiting , or diarrhea. no abdominal pain. She has chronic headaches and migraines. She is on Plavix. She has no numbness or weakness focally. no fall or trauma .occasionally short of breath she has been feeling shaky. She did have a PICC line in her right arm and has had problems with her arm since then she says. It sounds like this was placed for a MRSA infection. She does have a history of a aortic valve replacement Home Medications Medication Instructions Recorded Confirmed Type ipratropium 0.5 mg-albuterol 3 mg 3 ml inhalation Q6H PRN Shortness 04/03/22 07/16/23 History (2.5 mg base)/3 mL nebulization Of Breath Or Wheezing soln albuterol sulfate 90 mcg/actuation 2 puff inhalation QID PRN 09/02/22 07/16/23 Rx aerosol inhaler (Ventolin HFA) Shortness Of Breath Or Wheezing #6.7 grams amiodarone 200 mg tablet 200 mg PO QAM #30 tabs 09/02/22 07/16/23 Rx ascorbic acid (vitamin C) 500 mg 250 mg (1/2 x 500 mg) PO DAILY@12 09/02/22 07/16/23 Rx tablet #30 tabs aspirin 81 mg chewable tablet 81 mg PO DAILY #30 tabs 09/02/22 07/16/23 Rx clopidogrel 75 mg tablet 75 mg PO DAILY #30 tabs 09/02/22 07/16/23 Rx famotidine 10 mg tablet 10 mg PO DAILY #30 tabs 09/02/22 07/16/23 Rx ferrous sulfate 325 mg (65 mg 325 mg PO DAILY@12 #30 tabs 09/02/22 07/16/23 Rx iron) tablet fluticasone propionate 220 1 puff inhalation BID #12 grams 09/02/22 07/16/23 Rx mcg/actuation HFA aerosol inhaler (Flovent HFA) levothyroxine 25 mcg tablet 25 mcg PO DAILY #30 tabs 09/02/22 07/16/23 Rx metoprolol succinate 25 mg capsule 25 mg PO QAM #30 ea 09/02/22 07/16/23 Rx sprinkle, ext. release 24 hr pantoprazole 40 mg tablet,delayed 40 mg PO BID #60 tabs 09/02/22 07/16/23 Rx release simvastatin 10 mg tablet 10 mg PO HS #30 tabs 09/02/22 07/16/23 Rx furosemide 20 mg tablet 60 mg PO QAM 07/16/23 07/16/23 History topiramate 25 mg tablet 50 mg PO BID 07/16/23 07/16/23 History tramadol 50 mg tablet 50 mg PO BID PRN pain 07/16/23 07/16/23 History Allergies Allergy/AdvReac Type Severity Reaction Status Date / Time dog dander Allergy Intermediate Sneezing Verified 03/20/19 08:57 egg Allergy SPECIFIC-DUCK Verified 03/20/19 08:57 EGG CAUSED FACIAL SWELLING pollen extracts Allergy HAYFEVER Verified 03/20/19 08:57 methylprednisolone AdvReac Unknown Verified 03/20/19 08:57 [From Depo-Medrol] Past Med/Surg History Medical History Sepsis due to pneumonia Obesity History of migraine Paroxysmal atrial fibrillation CKD (chronic kidney disease), stage III Kidney stones Osteoarthritis Stomach ulcer HX Migraine SOB (shortness of breath) on exertion Atrial fibrillation Cardiac murmur CHF (congestive heart failure) Tobacco abuse quit 3 months ago Dyslipidemia Aortic stenosis COPD (chronic obstructive pulmonary disease) GERD (gastroesophageal reflux disease) Surgical History History of esophagogastroduodenoscopy (EGD) History of colonoscopy History of cystoscopy Hx of cholecystectomy Family History Father Family history of diabetes mellitus Social History Smoking Status: Former smoker Tobacco Type: Cigarettes Cigarettes Per Day: QUIT 2 MONTHS AGO; Second Hand Exposure: No; Do You Dip or Chew Tobacco: No; Hx Alcohol Use: No Hx Substance Use: No Preferred Language: Upper Sorbian Communication Ability: Effective Hospice Director Required: No Beliefs That Will Affect Care: None Current Living Situation: Longterm Current Living Situation Comment: lives in a trailer with sister Feels Safe at Home: Yes Assistive Devices: Walker and Wheelchair Review of Systems A total of 10 systems reviewed and were otherwise negative Physical Exam Vital Signs Vital Signs - 24 hr 07/16/23 15:01 07/16/23 15:12 07/16/23 15:12 Temperature 36.3 C L 36.3 C L Temperature Source Oral Oral Pulse Rate 79 73 Pulse Rate [Right Finger] 73 Pulse Rhythm Pulse Rhythm [Right Finger] Regular Respiratory Rate 18 18 Respiratory Effort / Characteristics Non-Labored Spontaneous Non-Labored Spontaneous Respiratory Depth Normal Normal Respiratory Pattern Regular Regular Blood Pressure 120/70 Blood Pressure [Left Arm] 120/70 Blood Pressure Mean 86 Blood Pressure Mean [Left Arm] 86 Blood Pressure Position Semi-fowlers Blood Pressure Position [Left Arm] Semi-fowlers Pulse Oximetry 98 98 Oxygen Delivery Method Room Air Room Air Sepsis Recent Fever Within 48 Hours No Sepsis New/Unexplained Change in Mental Status No Sepsis Action Taken by Nursing No Action Required 07/16/23 15:12 07/16/23 16:03 07/16/23 18:00 Temperature Temperature Source Pulse Rate 73 Pulse Rate [Right Finger] 70 78 Pulse Rhythm Regular Pulse Rhythm [Right Finger] Regular Respiratory Rate 18 19 25 H Respiratory Effort / Characteristics Non-Labored Spontaneous Non-Labored Spontaneous Respiratory Depth Normal Normal Respiratory Pattern Regular Regular Blood Pressure Blood Pressure [Left Arm] 113/54 L 114/57 L Blood Pressure Mean Blood Pressure Mean [Left Arm] 73 76 Blood Pressure Position Blood Pressure Position [Left Arm] Semi-fowlers Semi-fowlers Pulse Oximetry 98 96 97 Oxygen Delivery Method Room Air Room Air Room Air Sepsis Recent Fever Within 48 Hours Sepsis New/Unexplained Change in Mental Status Sepsis Action Taken by Nursing General: Well developed well nourished older female who appears in no acute distress, breathing comfortably on room air. Normal speech HEENT: Normal cephalic atraumatic. Pupils are equal round and reactive to light. Extraocular movements are intact. Oropharynx is pink with moist mucous membranes. No swelling of the mouth lips or tongue. Neck: Supple with a midline trachea. No meningeal signs or stiffness, no JVD or bruits. No Stridor. Chest: Clear to auscultation bilaterally. No wheezes or rhonchi. No increased work of breathing. Heart: Regular rate and rhythm without murmurs or gallops. Abdomen: Soft nontender, nondistended without rebound guarding or rigidity. Extremities: No cyanosis clubbing or edema. No calf tenderness or assymetry Spine/Back. Non tender to palpation. No CVA tenderness Skin: Good turgor without rashes. Neurologic exam: Cranial nerves two through 12 are intact. Motor and sensation are intact and symmetrical throughout. Course Administered Medications Sodium Chloride (Nss) 1,000 mls @ 100 mls/hr IV .Q10H CHRYSTAL Stop: 07/17/23 13:14 Last Admin: 07/16/23 18:17 Dose: 100 mls/hr Documented By: LMM Discontinued Medications Hydromorphone HCl (Hydromorphone Inj 0.5 Mg/0.5 Ml Syr) 0.5 mg IV NOW STA Stop: 07/16/23 17:07 Last Admin: 07/16/23 18:14 Dose: 0.5 mg Documented By: LMM Sodium Chloride (Nss) 500 mls @ 999 mls/hr IV .Q31M ONE Stop: 07/16/23 17:05 Last Infusion: 07/16/23 17:35 Dose: Infused Documented By: Admin: 07/16/23 17:04 Dose: 999 mls/hr Documented By: LMM Cefepime HCl (Maxipime) 2,000 mg in 20 mls @ 5 mls/min IV NOW STA Stop: 07/16/23 16:38 Last Admin: 07/16/23 17:04 Dose: 5 mls/min Documented By: LMM Medical Decision Making Differential Diagnosis Sepsis, pneumonia, influenza, COVID, cardiac disease, electrolyte or metabolic abnormality, intracranial process, migraine, endocarditis Laboratory Data Attestation: I reviewed the patient's lab results. 07/16/23 15:05 07/16/23 15:05 Lab Results 07/16/23 07/16/23 Range/Units 15:05 15:55 WBC 13.52 H (4.8-10.8) K/ul RBC 3.96 L (4.20-5.40) M/uL Hgb 12.4 (12.0-16.0) g/dl Hct 39.4 (37.0-47.0) % MCV 99.5 (80.0-100.0) fL MCH 31.3 (25.0-34.0) pg MCHC 31.5 L (32.0-36.0) g/dL RDW Std Deviation 60.5 H (36.4-46.3) fL RDW Coeff of Moni 16.6 H (11.5-14.5) % Plt Count 147 (130-400) K/uL MPV 11.9 (9.4-12.4) fL Immature Gran % (Auto) 0.7 % Neut % (Auto) 80.7 % Lymph % (Auto) 8.1 % Sherman % (Auto) 8.9 % Eos % (Auto) 1.3 % Baso % (Auto) 0.3 % Neut # (Auto) 10.90 H (1.40-6.50) K/uL Lymph # (Auto) 1.10 L (1.20-3.40) K/uL Sherman # (Auto) 1.21 H (0.11-0.59) K/uL Eos # (Auto) 0.18 (0.00-0.50) K/uL Baso # (Auto) 0.04 (0.00-0.20) K/uL Immature Gran # (Auto) 0.09 (0.01-0.20) K/uL PT 10.4 (9.0-12.0) Seconds INR 0.9 (0.9-1.1) APTT 28 (21-31) Seconds PTT Ratio 1.0 Sodium 137 (136-145) mmol/L Potassium 4.2 (3.5-5.1) mmol/L Chloride 105 (98-107) mmol/L Carbon Dioxide 24 (21-32) mmol/L Anion Gap 8 (3-11) BUN 32 H (6-23) mg/dl Creatinine 2.06 H (0.6-1.2) mg/dl Est Cr Clr Drug Dosing 32.1 ml/min Est GFR ( Amer) 26.8 ml/min Est GFR (Non-Af Amer) 23.1 ml/min BUN/Creatinine Ratio 15.5 (10-20) Glucose 117 H (70-99(Fasting)) mg/dl Lactate 1.6 (0.4-2.0) mmol/L Calcium 9.4 (8.6-10.3) mg/dl Magnesium 2.2 (1.7-2.4) mg/dl Total Bilirubin 0.5 (0.2-1.0) mg/dl Direct Bilirubin 0.2 (0-0.2) mg/dl AST 23 (13-39) U/L ALT 14 (7-52) U/L Alkaline Phosphatase 110 H (34-104) U/L Troponin I High Sens 10.8 (0-14) pg/ml Total Protein 8.0 (6.0-8.3) gm/dl Albumin 4.0 (3.4-5.0) gm/dl Procalcitonin 1.16 H (0-0.5) ng/ml Urine Color Yellow Urine Appearance Clear (Clear) Urine pH 7.0 (4.5-7.5) Ur Specific [place] 1.011 (1.000-1.030) Urine Protein Negative (Negative) Urine Glucose (UA) Negative (Negative) Urine Ketones Negative (Negative) Urine Blood Trace H (Negative) Urine Nitrite Negative (Negative) Urine Bilirubin Negative (Negative) Urine Urobilinogen Negative (Negative) Ur Leukocyte Esterase 3+ H (Negative) Urine WBC (Auto) >30 H (0-5) /hpf Urine RBC (Auto) 0-4 (0-4) /hpf U Hyaline Cast (Auto) 1-5 (0-5) /lpf U Epithel Cells (Auto) 20-30 H (0-5) /lpf Urine Bacteria (Auto) 4+ H (Negative) Adenovirus (PCR) Not Detected (NotDetected) B. pertussis DNA (PCR) Not Detected (NotDetected) B.parapertussis DNA PCR Not Detected (NotDetected) C. pneumoniae DNA (PCR) Not Detected (NotDetected) Coronavirus OC43 (PCR) Not Detected (NotDetected) Coronavirus HKU1 (PCR) Not Detected (NotDetected) Coronavirus 229E (PCR) Not Detected (NotDetected) SARS-CoV-2 (PCR) Not Detected (NotDetected) Coronavirus NL63 (PCR) Not Detected (NotDetected) Human Metapneumovir PCR Not Detected (NotDetected) Influenza Type A (PCR) Not Detected (NotDetected) Influenza Type B (PCR) Not Detected (NotDetected) M. pneumoniae (PCR) Not Detected (NotDetected) Parainfluenza 1 (PCR) Not Detected (NotDetected) Parainfluenza 2 (PCR) Not Detected (NotDetected) Parainfluenza 3 (PCR) Not Detected (NotDetected) Parainfluenza 4 (PCR) Not Detected (NotDetected) RSV (PCR) Not Detected (NotDetected) Entero/Rhino (PCR) Not Detected (NotDetected) Imaging Data Attestation: I personally reviewed and interpreted this imaging study as follows: My Impression: Chest x-ray-no acute infiltrate, failure, pneumothorax seen Head CTno acute hemorrhage or mass effect seen Radiologist's Impression: Chest X-Ray 07/16/23 15:03 XR chest 1V portable CLINICAL HISTORY: Sepsis TECHNIQUE: Single frontal radiograph of the chest was obtained. Comparison: Comparison is made to chest radiograph 08/29/2022 FINDINGS: No lines and tubes are seen. Interval improvement in previously noted airspace opacities. Mild prominence of the pulmonary vasculature. Cardiac silhouette is stable. No evidence of pleural effusion or pneumothorax. IMPRESSION: No evidence of pneumonia. Pulmonary vascular prominence is seen. ACT 112: Negative or not required by law. Electronically signed by: Gage Birmingham M.D. 07/16/2023 4:[address] 07/16/23 15:03 CT head/brain wo con CLINICAL HISTORY: headache Technique: Contiguous axial CT images of the head were acquired from the base of the skull to the vertex without intravenous contrast administration. Images were viewed in brain, subdural and bone windows. Automated dose lowering techniques and/or adjustment according to patient size were utilized for this exam. Comparison: Comparison is made to CT head 08/20/2022 Findings: The ventricles, basal cisterns, and cerebral sulci are normal. There is no acute intracranial hemorrhage or evidence of acute territorial infarction. Neither mass effect, shift of the midline structures, nor abnormal extra-axial fluid collections are shown. Imaged portions of the paranasal sinuses and mastoid air cells are clear. The orbits appear normal. There are no acute fractures of the calvaria or scalp swelling. Impression: No acute intracranial hemorrhage, no evidence of acute territorial infarction or other acute intracranial disease process. ACT 112: Negative or not required by law. Electronically signed by: Gage Birmingham M.D. 07/16/2023 3:40 PM ECG Data Attestation: I personally reviewed and interpreted this ECG as follows: Indication: + chest pain and + weakness Rate (beats per minute): 75 Rhythm: + normal sinus ECG Intervals/blocks: + Normal QRS, + Normal QT and + Normal [place] ECG [place]: + Normal ECG ST segments: + Nonspecific ST abnormalities ECG Findings: no PACs or no PVCs Comparison ECG Date: from (08/29/22) Change: no significant change MDM Narrative This patient comes in as described above. She was placed in room A4 she came in by EMS to talk to the patient and her sister at the bedside she is a complex medical history and has a cough she had some shakes at home but no definite fever. She does have a very complex medical history. IV access was established blood work was obtained including blood cultures. Her vital signs are stable here she is afebrile. White count is mildly elevated. Her BUN and creatinine are also moderately elevated compared to baseline. EKG shows no ischemic changes or ectopy. CAT scan of her head is unremarkable. Urinalysis suggest infection however there are some epithelial cells as well. Her chest x-ray was clear a bio fire was negative. She has a very complex history and this could also be related to endocarditis which she has had before. She has no urinary symptoms. I did discuss the case with Valarie , our ED pharmacist, and we are going to start her on cefepime IV here and she will also likely need Vanco as well. I did discuss case at length with the [facility] hospitalist and they are going to see her in the ER for further treatment and evaluation. 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, URI (upper respiratory infection) Forms Stand Alone Forms: [facility] Prescriptions Prescriptions: No Action ipratropium-albuterol 0.5 mg-3 mg(2.5 mg base)/3 mL solution for nebulization 3 ml INHALATION Q6H PRN (Reason: Shortness Of Breath Or Wheezing) famotidine 10 mg Tablet 10 mg PO DAILY Qty: 30 0RF amiodarone 200 mg tablet 200 mg PO QAM Qty: 30 0RF simvastatin 10 mg tablet 10 mg PO HS Qty: 30 0RF clopidogrel 75 mg tablet 75 mg PO DAILY Qty: 30 0RF levothyroxine 25 mcg tablet 25 mcg PO DAILY Qty: 30 0RF ascorbic acid (vitamin C) 500 mg tablet 250 mg PO DAILY@12 Qty: 30 0RF Rx Instructions: Take with ferrous sulfate. pantoprazole 40 mg Tablet,Delayed Release (Dr/Ec) 40 mg PO BID Qty: 60 0RF ferrous sulfate 325 mg (65 mg iron) tablet 325 mg PO DAILY@12 Qty: 30 0RF Rx Instructions: Take with lunch + ascorbic acid. aspirin 81 mg Tablet,Chewable 81 mg PO DAILY Qty: 30 0RF fluticasone propionate [Flovent HFA] 220 mcg/actuation Hfa Aerosol Inhaler 1 puff INHALATION BID Qty: 12 0RF albuterol sulfate [Ventolin HFA] 90 mcg/actuation Hfa Aerosol Inhaler 2 puff INHALATION QID PRN (Reason: Shortness Of Breath Or Wheezing) Qty: 6.7 0RF metoprolol succinate 25 mg Capsule,Sprinkle,Er 24hr 25 mg PO QAM Qty: 30 0RF topiramate 25 mg tablet 50 mg PO BID furosemide 20 mg tablet 60 mg PO QAM tramadol 50 mg tablet 50 mg PO BID PRN (Reason: pain) Referrals Referrals: Markell Linton MD [Primary Care Provider] - Discharge Problem: Headache Qualifiers: Headache type: unspecified Headache chronicity pattern: acute headache I ntractability: not intractable Qualified Code(s): R51.9 - Headache, unspecified URI (upper respiratory infection) Qualifiers: URI type: unspecified URI Qualified Code(s): J06.9 - Acute upper respiratory infection, unspecified
--- NOTE | 2023-07-16 16:14 | XRay Report ---
XR chest 1V portable CLINICAL HISTORY: Sepsis TECHNIQUE: Single frontal radiograph of the chest was obtained. Comparison: Comparison is made to chest radiograph 08/29/2022 FINDINGS: No lines and tubes are seen. Interval improvement in previously noted airspace opacities. Mild promin ence of the pulmonary vasculature. Cardiac silhouette is stable. No evidence of pleural effusion or pneumothorax. IMPRESSION: No evidence of pneumonia. Pulmonary vascular prominence is seen. ACT 112: Negative or not required by law. Electronically signed by: Gage Birmingham M.D. 07/16/2023 4:13 PM
[2023-07-16 16:18] LABS: Adenovirus PCR Not Detected (NotDetected); Bordetella parapertussis PCR Not Detected (NotDetected); Bordetella pertussis PCR Not Detected (NotDetected); Chlamydia pneumoniae PCR Not Detected (NotDetected); Coronavirus 229E PCR Not Detected (NotDetected); Coronavirus CoV-2 (COVID19)PCR Not Detected (NotDetected); Coronavirus HKU1 PCR Not Detected (NotDetected); Coronavirus NL63 PCR Not Detected (NotDetected); Coronavirus OC43PCR Not Detected (NotDetected); Human Metapneumovirus PCR Not Detected (NotDetected); Influenza A PCR Not Detected (NotDetected); Influenza B PCR Not Detected (NotDetected); Mycoplasma pneumoniae PCR Not Detected (NotDetected); Parainfluenza Virus 1 PCR Not Detected (NotDetected); Parainfluenza Virus 2 PCR Not Detected (NotDetected); Parainfluenza Virus 3 PCR Not Detected (NotDetected); Parainfluenza Virus 4 PCR Not Detected (NotDetected); Respiratory Syncytial VirusPCR Not Detected (NotDetected); Rhinovirus/Enterovirus PCR Not Detected (NotDetected)
[2023-07-16] MEDS: CEFEPIME 2,000 MG/20 ML VIAL IV STA (17:04)
[2023-07-16] MEDS: SODIUM CHLORIDE 0.9% 500 ML IV ONE (17:04)
--- NOTE | 2023-07-16 17:05 | History & Physical Report ---
Date of Service July 16, 2023 Assessment & Plan (1) Leukocytosis: (2) Chronic diastolic CHF (congestive heart failure): (3) PAULETTE (acute kidney injury): (4) S/P TAVR (transcatheter aortic valve replacement): (5) Paroxysmal atrial fibrillation: (6) S/P TAVR (transcatheter aortic valve replacement): (7) Chronic diastolic CHF (congestive heart failure): Plan Ms. Marshall is a 72 year old female that presented to the ED with headache for 2 days and chills/rigors for 1 day. She has a complex history that includes a lengthy hospitalization from 08/18/22-09/02/22 for MRSA PNA with bacteremia and treated with 6 weeks of IV antibiotics, treated as infective endocarditis as JAY could not be done. After discharge from the hospital she went to a nursing facility for rehab ([facility]) and just went back to her sisters home in February 2023. She was in her usual state of health until recently when she had her migraine attack couple days ago. She also had chills and rigors today that prompted her to come to the emergency. She denies fever, SOB, chest pain, palpitations, N/V/D, abdominal pain or tenderness, recent falls or trauma. Reports adequate appetite. During our encounter, she complains of headache and hunger. She takes Tylenol, tramadol t wice daily and Topamax 3 times a day (dose recently increased a month ago her topiramate was increased a month ago - topiramate 50mg AM, mid day and 25 mg Q PM). She is at bedside. She is afebrile and hemodynamically. On labs, Leukocytosis 13.52, creatinine elevated 2.06; baseline 1.07-1.15. Procalcitonin 1.65. Biofire negative. PMH includes: COPD, bioprostetic AVR, CKD3, CHF, HLD, CKD3. Patient will be admitted for further evaluation of her elevated WBC and headaches. Blood, sputum, and urine cultures pending. Will start on empiric antibiotics pending culture results. Bacteremia: Acute leukocytosis WBC 13.52 H/O MRSA PNA: 08/18/22 IV Cefepime started in ED; continue Add Vanco until MRSA comes back Procalcitonin 1.65 Bio fire negative PAULETTE: Acute Creatinine 2.06 ; baseline 1.1-1.4 Hoild nephrotoxic medications; including Lasix for now Migranes: Acute Takes Topiramate;continue Will give Dilaudid 0.5 once now and reassess Paroxysmal atrial fibrillation: Takes Metoprolol and Amiodarone; continue Not anticoagulated due to history of GI bleeding Chronic diastolic CHF due to valvular disease: S/p TAVR: Appears euvolemic Continue Plavix Hypothyroidism: Takes Synthroid; continue Disposition: PCP: Dr. Ramirez Code Status: Full Code VTE Prophylaxis: Heparin SQ I spent a total of 87 minutes coordinating, documenting, and providing care for this patient excluding time spent in the performance of separately billed services. All of the aforementioned completed while collaborating with the assigned attending physician for a full treatment plan. Please see their addendum for further details. History of Present Illness Chief Complaint: Migraine headache, chills/rigors Primary Care Provider: Markell Linton MD Ms. Marshall is a 72 year old female that presented to the ED with headache for 2 days and chills/rigors for 1 day. She has a complex history that includes a lengthy hospitalization from 08/18/22-09/02/22 for MRSA PNA with bacteremia and treated with 6 weeks of IV antibiotics, treated as infective endocarditis as JAY could not be done. After discharge from the hospital she went to a nursing facility for rehab ([facility]) and just went back to her [facility] home in February 2023. She was in her usual state of health until recently when she had her migraine attack couple days ago. She also had chills and rigors today that prompted her to come to the emergency. She denies fever, SOB, chest pain, palpitations, N/V/D, abdominal pain or tenderness, recent falls or trauma. Reports adequate appetite. During our encounter, she complains of headache and hunger. She takes Tylenol, tramadol twice daily and Topamax 3 times a day (dose recently increased a month ago her topiramate was increased a month ago - topiramate 50mg AM, mid day and 25 mg Q P M). She is at bedside. She is afebrile and hemodynamically. On labs, Leukocytosis 13.52, creatinine elevated 2.06; baseline 1.07-1.15. Procalcitonin 1.65. Biofire negative. PMH includes: COPD, bioprostetic AVR, CKD3, CHF, HLD, CKD3. Patient will be admitted for further evaluation of her elevated WBC and headaches. Blood, sputum, and urine cultures pending. Will start on empiric antibiotics pending culture results. Allergies Allergy/AdvReac Type Severity Reaction Status Date / Time dog dander Allergy Intermediate Sneezing Verified 03/20/19 08:57 egg Allergy SPECIFIC-DUCK Verified 03/20/19 08:57 EGG CAUSED FACIAL SWELLING pollen extracts Allergy HAYFEVER Verified 03/20/19 08:57 methylprednisolone AdvReac Unknown Verified 03/20/19 08:57 [From Depo-Medrol] Home Medications Medication Instructions Recorded Confirmed Type ipratropium 0.5 mg-albuterol 3 mg 3 ml inhalation Q6H PRN Shortness 04/03/22 07/16/23 History (2.5 mg base)/3 mL nebulization Of Breath Or Wheezing soln albuterol sulfate 90 mcg/actuation 2 puff inhalation QID PRN 09/02/22 07/16/23 Rx aerosol inhaler (Ventolin HFA) Shortness Of Breath Or Wheezing #6.7 grams amiodarone 200 mg tablet 200 mg PO QAM #30 tabs 09/02/22 07/16/23 Rx ascorbic acid (vitamin C) 500 mg 250 mg (1/2 x 500 mg) PO DAILY@12 09/02/22 07/16/23 Rx tablet #30 tabs aspirin 81 mg chewable tablet 81 mg PO DAILY #30 tabs 09/02/22 07/16/23 Rx clopidogrel 75 mg tablet 75 mg PO DAILY #30 tabs 09/02/22 07/16/23 Rx famotidine 10 mg tablet 10 mg PO DAILY #30 tabs 09/02/22 07/16/23 Rx ferrous sulfate 325 mg (65 mg 325 mg PO DAILY@12 #30 tabs 09/02/22 07/16/23 Rx iron) tablet fluticasone propionate 220 1 puff inhalation BID #12 grams 09/02/22 07/16/23 Rx mcg/actuation HFA aerosol inhaler (Flovent HFA) levothyroxine 25 mcg tablet 25 mcg PO DAILY #30 tabs 09/02/22 07/16/23 Rx metoprolol succinate 25 mg capsule 25 mg PO QAM #30 ea 09/02/22 07/16/23 Rx sprinkle, ext. release 24 hr pantoprazole 40 mg tablet,delayed 40 mg PO BID #60 tabs 09/02/22 07/16/23 Rx release simvastatin 10 mg tablet 10 mg PO HS #30 tabs 09/02/22 07/16/23 Rx furosemide 20 mg tablet 60 mg PO QAM 07/16/23 07/16/23 History topiramate 25 mg tablet 50 mg PO BID 07/16/23 07/16/23 History tramadol 50 mg tablet 50 mg PO BID PRN pain 07/16/23 07/16/23 History Past Med/Surg History Medical History Sepsis due to pneumonia Obesity History of migraine Paroxysmal atrial fibrillation CKD (chronic kidney disease), stage III Kidney stones Osteoarthritis Stomach ulcer HX Migraine SOB (shortness of breath) on exertion Atrial fibrillation Cardiac murmur CHF (congestive heart failure) Tobacco abuse quit 3 months ago Dyslipidemia Aortic stenosis COPD (chronic obstructive pulmonary disease) GERD (gastroesophageal reflux disease) Surgical History History of esophagogastroduodenoscopy (EGD) History of colonoscopy History of cystoscopy Hx of cholecystectomy Family History Father Family history of diabetes mellitus Social History Smoking Status: Former smoker Tobacco Type: Cigarettes Cigarettes Per Day: QUIT 2 MONTHS AGO; Second Hand Exposure: No; Do You Dip or Chew Tobacco: No; Hx Alcohol Use: No Hx Substance Use: No Preferred Language: Macedonian Communication Ability: Effective Medical Receptionist Assistant Required: No Beliefs That Will Affect Care: None Current Living Situation: [facility] Current Living Situation Comment: lives in a trailer with sister Feels Safe at Home: Yes Assistive Devices: Walker and Wheelchair Review of Systems Review of Systems: Neuro: (-) Falls, trauma, slurred speech HEENT: (+) SANCHEZ, (-) dizziness, dysphagia, visual or auditory changes CV: (-) CP, palpitations, swelling Resp: (-) SOB GI: (-) appetite changes, N/V/D, bowel changes : (-) urinary changes Skin: (-) rashes Psych: (-) anxiety, depression Physical Exam Physical Exam: Neuro: AAOx4, PERRLA, no aphagia, memory changes, CNII-XII grossly intact HEENT: head normocephalic, moist mucus membranes CV: S1/S2, (-) M/G/R, (-) edema, cap refill < 3 seconds Resp: Lungs CTA GI: Abdomen large S/NT/ND, Ax4 bowel sounds, (-) CVA tenderness Musculoskeletal: 5/5 B/L UE strength, 5/5 B/L LE strength. No gait disturbance Skin: (-) rashes , (-) erythema. Psych: euthymic yet tired mood Results & Data Results & Data Vital Signs (Past 12 Hours) Vital Signs Temp Pulse Pulse Resp BP BP Pulse Ox 07/16/23 16:03 70 19 113/54 L 96 07/16/23 15:12 73 18 98 07/16/23 15:12 36.3 C L 73 18 120/70 98 07/16/23 15:12 36.3 C L 73 18 120/70 98 07/16/23 15:01 79 O2 Del Method 07/16/23 16:03 Room Air 07/16/23 15:12 Room Air 07/16/23 15:12 Room Air 07/16/23 15:12 Room Air 07/16/23 15:01 Laboratory Results Short CBC 07/16/23 Range/Units 15:05 WBC 13.52 H (4.8-10.8) K/ul Hgb 12.4 (12.0-16.0) g/dl Hct 39.4 (37.0-47.0) % Plt Count 147 (130-400) K/uL BMP 07/16/23 15:05 Sodium 137 Potassium 4.2 Chloride 105 Carbon Dioxide 24 BUN 32 H Creatinine 2.06 H Glucose 117 H Calcium 9.4 Liver Function 07/16/23 Range/Units 15:05 Total Bilirubin 0.5 (0.2-1.0) mg/dl Direct Bilirubin 0.2 (0-0.2) mg/dl AST 23 (13-39) U/L ALT 14 (7-52) U/L Alkaline Phosphatase 110 H (34-104) U/L Albumin 4.0 (3.4-5.0) gm/dl Urine 07/16/23 Range/Units 15:05 Urine Color Yellow Urine Appearance Clear (Clear) Urine pH 7.0 (4.5-7.5) Ur Specific [place] 1.011 (1.000-1.030) Urine Protein Negative (Negative) Urine Glucose (UA) Negative (Negative) Diagnostic Findings Chest X-Ray 07/16/23 15:03 XR chest 1V portable CLINICAL HISTORY: Sepsis TECHNIQUE: Single frontal radiograph of the chest was obtained. Comparison: Comparison is made to chest radiograph 08/29/2022 FINDINGS: No lines and tubes are seen. Interval improvement in previously noted airspace opacities. Mild prominence of the pulmonary vasculature. Cardiac silhouette is stable. No evidence of pleural effusion or pneumothorax. IMPRESSION: No evidence of pneumonia. Pulmonary vascular prominence is seen. ACT 112: Negative or not required by law. Electronically signed by: Gage Birmingham M.D. 07/16/2023 4:[address] 07/16/23 15:03 CT head/brain wo con CLINICAL HISTORY: headache Technique: Contiguous axial CT images of the head were acquired from the base of the skull to the vertex without intravenous contrast administration. Images were viewed in brain, subdural and bone windows. Automated dose lowering techniques and/or adjustment according to patient size were utilized for this exam. Comparison: Comparison is made to CT head 08/20/2022 Findings: The ventricles, basal cisterns, and cerebral sulci are normal. There is no acute intracranial hemorrhage or evidence of acute territorial infarction. Neither mass effect, shift of the midline structures, nor abnormal extra-axial fluid collections are shown. Imaged portions of the paranasal sinuses and mastoid air cells are clear. The orbits appear normal. There are no acute fractures of the calvaria or scalp swelling. Impression: No acute intracranial hemorrhage, no evidence of acute territorial infarction or other acute intracranial disease process. ACT 112: Negative or not required by law. Electronically signed by: Gage Birmingham M.D. 07/16/2023 3:40 PM Supervising Physician Co-Signing Physician Notes Patient was seen and examined at bedside with Janey NANCE. Chart reviewed. Case discussed with her and agree with the documentation above with regards to HPI, PE, A/P and I have made all the changes wherever necessary.
[2023-07-16] MEDS: HYDROmorphone INJ 0.5 MG/0.5 ML SYR IV STA (18:14)
[2023-07-16] MEDS: SODIUM CHLORIDE 0.9% 1,000 ML IV SCH (18:17)
--- NOTE | 2023-07-16 18:20 | CT Scan Report ---
CT chest diagnostic wo con CLINICAL HISTORY: pna TECHNIQUE: Multidetector row helical CT of the chest was performed. Coronal and sagittal reformations were obtained. Automated dose lowering techniques and/or adjustment according to patient size were u tilized for this exam. CT DOSE: 1044.3 mGy.cm Comparison: Comparison is made to CT chest 07/16/2018 and chest radiograph 07/16/2023 FINDINGS: Lungs and pleura: Atelectasis is seen. A few nodular and groundglass foci are seen in the bilateral l ungs. Heart and pericardium: Cardiomegaly is seen with biatrial enlargement. Vessels: The pulmonary trunk is enlarged measuring 35 mm. Mediastinum and robina: Unremarkable. Chest wall and lower neck: Unremarkable. Abdomen: A hiatal hernia is seen. Patient is status post cholecystectomy. Bones: Degenerative changes in the thoracic spine. IMPRESSION: There are scattered foci of groundglass and nodular densities compatible with pneumonia. ACT 112: Negative or not required by law. Electronically signed by: Gage Birmingham M.D. 07/16/2023 6:18 PM
[2023-07-16] MEDS ORDERED: VANCOMYCIN CONSULT ACTIVE PRN ×2 (19:57→22:33)
[2023-07-16] MEDS: VANCOMYCIN HCL 2,750 MG in SODIUM CHLORIDE 0.9% 500 ML IV STA (20:50)
[2023-07-16] MEDS: SIMVASTATIN 10 MG TAB PO SCH (21:12)
[2023-07-16] MEDS: PANTOprazole 40 MG TAB PO SCH (21:12)
[2023-07-16] MEDS: TOPIRAMATE 50 MG TAB PO SCH (21:12)
[2023-07-16] MEDS: HEPARIN SOD 5,000 UNIT/0.5 ML VIAL SQ SCH (21:13)
[2023-07-16] MEDS: FLUTICASONE FUROATE 200MCG 14 PUFFS/INHALER INH SCH (21:13)
[2023-07-16] MEDS ORDERED: VANCOMYCIN HCL 1,000 MG in SODIUM CHLORIDE 0.9% 250 ML IV SCH (22:33)
[2023-07-17] MEDS: CEFEPIME 2,000 MG in SYRINGE 0 ML IV SCH (04:30)
[2023-07-17] MEDS: LEVOTHYROXINE SODIUM 25 MCG TABLET PO SCH (06:08)
[2023-07-17 07:58] LABS: Est GFR (African American) 27.1 ml/min; Est GFR (Non-African American) 23.4 ml/min
[2023-07-17] MEDS: MICONAZOLE NITRATE POWDER 85 GM EXT SCH (08:29)
[2023-07-17] MEDS: AMIODARONE 200 MG TAB PO SCH (08:29)
[2023-07-17] MEDS: SODIUM CHLORIDE 0.9% 500 ML IV ONE ×2 (08:29→12:20)
[2023-07-17] MEDS: METOPROLOL SUCC 25MG EXT REL TAB PO SCH (08:30)
[2023-07-17] MEDS: CLOPIDOGREL BISULFATE 75 MG TAB PO SCH (08:30)
[2023-07-17] MEDS: FAMOTIDINE 10 MG TABLET PO SCH (08:30)
[2023-07-17] MEDS: ASPIRIN 81 MG CHEW PO SCH (08:30)
[2023-07-17 08:37] LABS: Hematocrit (blood only) 31.9 % (37.0-47.0); Hemoglobin 9.9 g/dl (12.0-16.0); Mean Corpuscular Hemoglobin 31.1 pg (25.0-34.0); Mean Corpuscular Volume 100.3 fL (80.0-100.0); Mean Platelet Volume 12.6 fL (9.4-12.4); Platelet Count 126 K/uL (130-400); RDW Coefficient of Variation 16.7 % (11.5-14.5); RDW Standard Deviation 62.3 fL (36.4-46.3); Red Blood Count 3.18 M/uL (4.20-5.40); White Blood Count 10.07 K/ul (4.8-10.8)
[2023-07-17 08:44] LABS: Calcium 7.8 mg/dl (8.6-10.3); Potassium 3.7 mmol/L (3.5-5.1)
[2023-07-17 08:49] LABS: BUN Creatinine Ratio 13.7 (10-20); Creatinine Clr Calc Pharmacy 31.8 ml/min; Est GFR (Non-African American) 23.3 ml/min
[2023-07-17] MEDS ORDERED: VANCOMYCIN HCL 1,000 MG in SODIUM CHLORIDE 0.9% 250 ML IV SCH (09:00)
[2023-07-17] MEDS: ACETAMINOPHEN 325 MG TAB PO PRN (09:06)
[2023-07-17] MEDS: DOXYCYCLINE HYCLATE 100 MG CAP PO SCH (09:09)
--- NOTE | 2023-07-17 10:12 | Ultrasound Report ---
RENAL ULTRASOUND CLINICAL HISTORY: Acute kidney injury. COMPARISON STUDY: CT of the abdomen and pelvis June 06, 2022. TECHNIQUE: Sonography of the kidneys and the urinary bladder was performed. FINDINGS: The right kidney measures 9.5 cm in maximal dimension and the left measures 10.5 cm. This e xam is compromised by suboptimal penetration. However, there is no hydronephrosis. There is a 1.5 cm lesion arising from the lower pole of the right kidney and a 1.7 cm left upper pole renal lesion. The se lesions have internal echoes, likely artifactual. Cysts are favored. Ureteral jets were not visual ized. Renal size and cortical thickness are within normal limits. IMPRESSION: 1. No hydronephrosis. 2. Bilateral renal lesions, as described above. These are suboptimally assessed on this exam due to s uboptimal penetration however, these favor cysts. ACT 112: Negative or not required by law. Electronically signed by: Shawn Juarez M.D. 07/17/2023 10:10 AM
[2023-07-17] MEDS: FERROUS SULFATE 325 MG TAB PO SCH (11:50)
--- NOTE | 2023-07-17 13:39 | Electrocardiogram Report ---
Test Reason : Blood Pressure : / mmHG Vent. Rate : 075 BPM Atrial Rate : 075 BPM P-R Int : 162 ms QRS Dur : 086 ms QT Int : 362 ms P-R-T Axes : 034 015 087 degrees QTc Int : 404 ms Normal sinus rhythm Nonspecific ST and T wave abnormality Abnormal ECG When compared with ECG of 29-AUG-2022 23:26, No significant change was found Confirmed by Mihir Plasencia ([id number]) on 07/17/2023 1:38:39 PM Referred By: REFERRED SELF Confirmed By:Mihir Plasencia
[2023-07-17] MEDS: METOPROLOL SUCC 25MG EXT REL TAB PO ONE (13:47)
--- NOTE | 2023-07-17 15:27 | Hospitalist Progress Note ---
Date of Service July 17, 2023 Assessment & Plan (1) Leukocytosis: (2) Chronic diastolic CHF (congestive heart failure): (3) PAULETTE (acute kidney injury): (4) S/P TAVR (transcatheter aortic valve replacement): (5) Paroxysmal atrial fibrillation: Plan Ms. Marshall is a 72 year old female that presented to the ED with headache for 2 days and chills/rigors for 1 day. She has a complex history that includes a lengthy hospitalization from 08/18/22-09/02/22 for MRSA PNA with bacteremia and treated with 6 weeks of IV antibiotics, treated as infective endocarditis as JAY could not be done. After discharge from the hospital she went to a nursing facility for rehab ([place]) and just went back to her sisters home in February 2023. She was in her usual state of health until recently when she had her migraine attack couple days ago. She also had chills and rigors today that prompted her to come to the emergency. She denies fever, SOB, chest pain, palpitations, N/V/D, abdominal pain or tenderness, recent falls or trauma. Reports adequate appetite. During our encounter, she complains of headache and hunger. She takes Tylenol, tramadol twice daily and Topamax 3 times a day (dose recently increased a month ago her topiramate was increased a month ago - topiramate 50mg AM, mid day and 25 mg Q PM). She is at bedside. She is afebrile and hemodynamically. On labs, Leukocytosis 13.52, creatinine elevated 2.06; baseline 1.07-1.15. Procalcitonin 1.65. Biofire negative. PMH includes: COPD, bioprostetic AVR, CKD3, CHF, HLD, CKD3.Patient will be admitted for further evaluation of her elevated WBC and headaches. Blood, sputum, and urine cultures pending. Will start on empiric antibiotics pending culture results. Pneumonia UTI Possible sepsis H/O MRSA pneumonia --CT Chest:There are scattered foci of groundglass and nodular densities compatible with pneumonia. -- Blood culture pending --Procalcitonin 1.16 --Biofire: Negative --Nasal MRSA: Negative --Urine culture growing E. coli Continue cefepime, Doxycycline Continue IV fluids PAULETTE on CKD III: Baseline 1.1-1.4 Cr:2.0 Possible renal cysts/lesions --Renal USD:No hydronephrosis. Bilateral renal lesions, as described above. These are suboptimally assessed on this exam due to suboptimal penetration however, these favor cysts. Hold diuretics Avoid nephrotoxic agents as able Continue IV fluids Bladder scan as needed Consider nephro evaluation if no improvement Migraines: Continue Topiramate Paroxysmal atrial fibrillation: Continue Metoprolol and Amiodarone Not anticoagulated due to history of GI bleeding Chronic diastolic CHF due to valvular disease: S/p TAVR Nonobstructive coronary artery disease Continue Plavix Resume diuretics as able Monitor volume status Hypothyroidism: continue levothyroxine Morbid obesity BMI 40 Code Status: Full Code DVT Px: Heparin SQ Disposition: PT/OT prior to discharge Admission and Anticipated Discharge Date Admission Date: July 16, 2023 Subjective Patient is seen and examined at bedside Admits to have minimal cough Headache resolved Afebrile today Denies any chest pain, dyspnea, nausea, vomiting, abdominal pain, dysuria Discussed with patient's sister at bedside No other complaints Review of Systems Review of Systems: All systems reviewed & are unremarkable except as noted in Subjective Physical Exam Physical Exam: Physical Exam: Vitals signs as noted above General Appearance:Obese, no apparent distress Head: normocephalic, Atraumatic Eyes: normal inspection, EOMI Neck: supple, Trachea midline Respiratory/Chest: Decreased breath sounds, CTA, No accessory muscle use Cardiovascular: S1, S2, No murmur Abdomen/GI:Soft, Non tender, Bowel sounds present Extremities/Musculoskeletal:normal inspection, no edema Neurologic/Psych:AAOX3, grossly no focal neurological deficits Skin: normal color, warm Results & Data Results & Data Vital Signs (Past 12 Hours) Vital Signs Temp Pulse Pulse Pulse Resp BP BP 07/17/23 13:24 100/53 L 07/17/23 12:10 90/54 L 07/17/23 10:58 36.6 C 63 16 96/53 L 07/17/23 10:14 07/17/23 07:59 64 07/17/23 07:00 36.7 C 70 18 92/49 L 07/17/23 03:28 37.3 C 78 20 108/62 Pulse Ox O2 Del Method 07/17/23 13:24 07/17/23 12:10 07/17/23 10:58 96 Room Air 07/17/23 10:14 Room Air 07/17/23 07:59 07/17/23 07:00 96 Room Air 07/17/23 03:28 95 Room Air Laboratory Results Short CBC 07/16/23 07/17/23 Range/Units 15:05 05:38 WBC 13.52 H 10.07 (4.8-10.8) K/ul Hgb 12.4 9.9 L (12.0-16.0) g/dl Hct 39.4 31.9 L (37.0-47.0) % Plt Count 147 126 L (130-400) K/uL BMP 07/16/23 07/17/23 07/17/23 15:05 07:29 07:29 Sodium 137 141 Potassium 4.2 3.7 Chloride 105 114 H Carbon Dioxide 24 21 BUN 32 H 28 H Creatinine 2.06 H 2.04 H 2.05 H Glucose 117 H 105 H Calcium 9.4 7.8 L Liver Function 07/16/23 Range/Units 15:05 Total Bilirubin 0.5 (0.2-1.0) mg/dl Direct Bilirubin 0.2 (0-0.2) mg/dl AST 23 (13-39) U/L ALT 14 (7-52) U/L Alkaline Phosphatase 110 H (34-104) U/L Albumin 4.0 (3.4-5.0) gm/dl Urine 07/16/23 Range/Units 15:05 Urine Color Yellow Urine Appearance Clear (Clear) Urine pH 7.0 (4.5-7.5) Ur Specific [place] 1.011 (1.000-1.030) Urine Protein Negative (Negative) Urine Glucose (UA) Negative (Negative)
[2023-07-17] MEDS: CEFEPIME 1,000 MG in SYRINGE 0 ML IV SCH (17:34)
[2023-07-17] MEDS: traMADol HCL 50 MG TABLET PO PRN (19:56)
[2023-07-18 05:40] LABS: Hematocrit (blood only) 30.8 % (37.0-47.0); Hemoglobin 9.8 g/dl (12.0-16.0); Mean Corpuscular Hemoglobin 31.7 pg (25.0-34.0); Mean Corpuscular Hgb Conc 31.8 g/dL (32.0-36.0); Mean Corpuscular Volume 99.7 fL (80.0-100.0); Mean Platelet Volume 12.2 fL (9.4-12.4); Platelet Count 114 K/uL (130-400); RDW Coefficient of Variation 16.9 % (11.5-14.5); RDW Standard Deviation 61.1 fL (36.4-46.3); Red Blood Count 3.09 M/uL (4.20-5.40); White Blood Count 5.83 K/ul (4.8-10.8)
[2023-07-18 05:57] LABS: BUN Creatinine Ratio 11.5 (10-20); Calcium 8.4 mg/dl (8.6-10.3); Creatinine Clr Calc Pharmacy 31.2 ml/min; Est GFR (African American) 26.4 ml/min; Est GFR (Non-African American) 22.7 ml/min
[2023-07-18] MEDS ORDERED: cefTRIAXone SODIUM 1,000 MG in DEXTROSE 5 % MINI-B 50 ML IV SCH (09:30)
[2023-07-18] MEDS: cefTRIAXone SODIUM 2,000 MG in DEXTROSE 5 % MINI-B 50 ML IV SCH (10:58)
--- NOTE | 2023-07-18 16:35 | Hospitalist Progress Note ---
Date of Service July 18, 2023 Assessment & Plan (1) Leukocytosis: (2) Chronic diastolic CHF (congestive heart failure): (3) PAULETTE (acute kidney injury): (4) S/P TAVR (transcatheter aortic valve replacement): (5) Paroxysmal atrial fibrillation: Plan Ms. Marshall is a 72 year old female that presented to the ED with headache for 2 days and chills/rigors for 1 day. She has a complex history that includes a lengthy hospitalization from 08/18/22-09/02/22 for MRSA PNA with bacteremia and treated with 6 weeks of IV antibiotics, treated as infective endocarditis as JAY could not be done. After discharge from the hospital she went to a nursing facility for rehab ([place]) and just went back to her sisters home in February 2023. She was in her usual state of health until recently when she had her migraine attack couple days ago. She also had chills and rigors today that prompted her to come to the emergency. She denies fever, SOB, chest pain, palpitations, N/V/D, abdominal pain or tenderness, recent falls or trauma. Reports adequate appetite. During our encounter, she complains of headache and hunger. She takes Tylenol, tramadol twice daily and Topamax 3 times a day (dose recently increased a month ago her topiramate was increased a month ago - topiramate 50mg AM, mid day and 25 mg Q PM). She is at bedside. She is afebrile and hemodynamically. On labs, Leukocytosis 13.52, creatinine elevated 2.06; baseline 1.07-1.15. Procalcitonin 1.65. Biofire negative. PMH includes: COPD, bioprostetic AVR, CKD3, CHF, HLD, CKD3.Patient will be admitted for further evaluation of her elevated WBC and headaches. Blood, sputum, and urine cultures pending. Will start on empiric antibiotics pending culture results. Pneumonia UTI Possible sepsis H/O MRSA pneumonia --CT Chest:There are scattered foci of groundglass and nodular densities compatible with pneumonia. -- Blood culture negative to date --Urine culture growing E. coli --Procalcitonin 1.16 --Biofire: Negative --Nasal MRSA: Negative Continue cefepime, Doxycycline>> ceftriaxone, Doxy Received IV fluids Likely discharge in next 24 to 48 hours if remains stable CKD III: No PAULETTE given outpatient Cr in Mar 2023 is 1.9 Cr:2.0 today Likely new baseline creatinine level Possible renal cysts/lesions --Renal USD:No hydronephrosis. Bilateral renal lesions, as described above. These are suboptimally assessed on this exam due to suboptimal penetration however, these favor cysts. Avoid nephrotoxic agents as able Bladder scan as needed Migraines: Continue Topiramate Paroxysmal atrial fibrillation: Continue Metoprolol and Amiodarone Not anticoagulated due to history of GI bleeding Chronic diastolic CHF due to valvular disease: S/p TAVR Nonobstructive coronary artery disease Continue Plavix Resume diuretics as able Monitor volume status Hypothyroidism: continue levothyroxine Morbid obesity BMI 40 Code Status: Full Code DVT Px: Heparin SQ Disposition: PT/OT prior to discharge Home as able Admission and Anticipated Discharge Date Admission Date: July 16, 2023 Subjective Patient is seen and examined at bedside States feeling better today Blood pressure much improved Discussed with patient's sister at bedside Headache, cough resolved Denies any chest pain, dyspnea, nausea, vomiting, abdominal pain, dysuria Urine culture growing E coli Review of Systems Review of Systems: All systems reviewed & are unremarkable except as noted in Subjective Physical Exam Physical Exam: Physical Exam: Vitals signs as noted above General Appearance:Obese, no apparent distress Head: normocephalic, Atraumatic Eyes: normal inspection, EOMI Neck: supple, Trachea midline Respiratory/Chest: Decreased breath sounds, CTA, No accessory muscle use Cardiovascular: S1, S2, No murmur Abdomen/GI:Soft, Non tender, Bowel sounds present Extremities/Musculoskeletal:normal inspection, no edema Neurologic/Psych:AAOX3, grossly no focal neurological deficits Skin: normal color, warm Results & Data Results & Data Vital Signs (Past 12 Hours) Vital Signs Temp Pulse Pulse Resp BP Pulse Ox O2 Del Method 07/18/23 15:12 36.5 C 62 18 122/67 97 Room Air 07/18/23 14:47 64 07/18/23 11:00 36.6 C 68 14 113/65 97 Room Air 07/18/23 09:54 Room Air 07/18/23 07:46 36.4 C L 66 14 119/71 96 Room Air 07/18/23 07:40 60 07/18/23 05:32 Room Air Laboratory Results Short CBC 07/18/23 Range/Units 04:42 WBC 5.83 (4.8-10.8) K/ul Hgb 9.8 L (12.0-16.0) g/dl Hct 30.8 L (37.0-47.0) % Plt Count 114 L (130-400) K/uL BMP 07/18/23 04:42 Sodium 142 Potassium 4.0 Chloride 117 H Carbon Dioxide 19 L BUN 24 H Creatinine 2.09 H Glucose 95 Calcium 8.4 L
[2023-07-19 06:23] LABS: Hematocrit (blood only) 30.4 % (37.0-47.0); Hemoglobin 9.8 g/dl (12.0-16.0); Mean Corpuscular Hemoglobin 32.2 pg (25.0-34.0); Mean Corpuscular Hgb Conc 32.2 g/dL (32.0-36.0); Mean Platelet Volume 12.3 fL (9.4-12.4); Platelet Count 136 K/uL (130-400); Red Blood Count 3.04 M/uL (4.20-5.40); White Blood Count 4.45 K/ul (4.8-10.8)
[2023-07-19 06:52] LABS: Calcium 8.9 mg/dl (8.6-10.3)
[2023-07-19 06:58] LABS: BUN Creatinine Ratio 12.6 (10-20); Creatinine Clr Calc Pharmacy 36.2 ml/min; Est GFR (African American) 31.2 ml/min; Est GFR (Non-African American) 26.9 ml/min
--- NOTE | 2023-07-19 12:42 | Hospitalist Progress Note ---
Date of Service July 19, 2023 Assessment & Plan (1) Leukocytosis: (2) Chronic diastolic CHF (congestive heart failure): (3) PAULETTE (acute kidney injury): (4) S/P TAVR (transcatheter aortic valve replacement): (5) Paroxysmal atrial fibrillation: Plan Ms. Marshall is a 72 year old female that presented to the ED with headache for 2 days and chills/rigors for 1 day. She has a complex history that includes a lengthy hospitalization from 08/18/22-09/02/22 for MRSA PNA with bacteremia and treated with 6 weeks of IV antibiotics, treated as infective endocarditis as JAY could not be done. After discharge from the hospital she went to a nursing facility for rehab ([place]) and just went back to her sisters home in February 2023. She was in her usual state of health until recently when she had her migraine attack couple days ago. She also had chills and rigors today that prompted her to come to the emergency. She denies fever, SOB, chest pain, palpitations, N/V/D, abdominal pain or tenderness, recent falls or trauma. Reports adequate appetite. During our encounter, she complains of headache and hunger. She takes Tylenol, tramadol twice daily and Topamax 3 times a day (dose recently increased a month ago her topiramate was increased a month ago - topiramate 50mg AM, mid day and 25 mg Q PM). She is at bedside. She is afebrile and hemodynamically. On labs, Leukocytosis 13.52, creatinine elevated 2.06; baseline 1.07-1.15. Procalcitonin 1.65. Biofire negative. PMH includes: COPD, bioprostetic AVR, CKD3, CHF, HLD, CKD3.Patient will be admitted for further evaluation of her elevated WBC and headaches. Blood, sputum, and urine cultures pending. Will start on empiric antibiotics pending culture results. Pneumonia UTI Possible sepsis H/O MRSA pneumonia --CT Chest:There are scattered foci of groundglass and nodular densities compatible with pneumonia. -- Blood culture negative to date --Urine culture growing E. coli --Procalcitonin 1.16 --Biofire: Negative --Nasal MRSA: Negative Continue cefepime, Doxycycline>> ceftriaxone, Doxy Received IV fluids Plan to discharge home today CKD III: No PAULETTE given outpatient Cr in Mar 2023 is 1.9 Cr:1.8 today Likely new baseline creatinine level Possible renal cysts/lesions --Renal USD:No hydronephrosis. Bilateral renal lesions, as described above. These are suboptimally assessed on this exam due to suboptimal penetration however, these favor cysts. Avoid nephrotoxic agents as able Bladder scan as needed Migraines: Continue Topiramate Paroxysmal atrial fibrillation: Continue Metoprolol and Amiodarone Not anticoagulated due to history of GI bleeding Chronic diastolic CHF due to valvular disease: S/p TAVR Nonobstructive coronary artery disease Continue Plavix Resume diuretics as able Monitor volume status Hypothyroidism: continue levothyroxine Morbid obesity BMI 40 Code Status: Full Code DVT Px: Heparin SQ Disposition: Home Health Admission and Anticipated Discharge Date Admission Date: July 16, 2023 Subjective Patient is seen and examined at bedside States having minimal cough with expectoration No other complaints Denies any chest pain, dyspnea, nausea, vomiting, abdominal pain, dysuria Plan to discharged home today Review of Systems Review of Systems: All systems reviewed & are unremarkable except as noted in Subjective Physical Exam Physical Exam: Physical Exam: Vitals signs as noted above General Appearance:Obese, no apparent distress Head: normocephalic, Atraumatic Eyes: normal inspection, EOMI Neck: supple, Trachea midline Respiratory/Chest: Decreased breath sounds, CTA, No accessory muscle use Cardiovascular: S1, S2, No murmur Abdomen/GI:Soft, Non tender, Bowel sounds present Extremities/Musculoskeletal:normal inspection, no edema Neurologic/Psych:AAOX3, grossly no focal neurological deficits Skin: normal color, warm Results & Data Results & Data Vital Signs (Past 12 Hours) Vital Signs Temp Pulse Pulse Resp BP BP Pulse Ox 07/19/23 11:10 36.7 C 57 L 18 123/63 96 07/19/23 09:24 07/19/23 07:45 36.5 C 64 18 139/73 94 07/19/23 07:06 50 L 07/19/23 03:24 36.3 C L 61 16 101/61 97 O2 Del Method 07/19/23 11:10 Room Air 07/19/23 09:24 Room Air 07/19/23 07:45 Room Air 07/19/23 07:06 07/19/23 03:24 Room Air Laboratory Results Short CBC 07/19/23 Range/Units 05:35 WBC 4.45 L (4.8-10.8) K/ul Hgb 9.8 L (12.0-16.0) g/dl Hct 30.4 L (37.0-47.0) % Plt Count 136 (130-400) K/uL BMP 07/19/23 05:35 Sodium 139 Potassium 4.0 Chloride 114 H Carbon Dioxide 21 BUN 23 Creatinine 1.82 H Glucose 90 Calcium 8.9
--- NOTE | 2023-07-19 12:51 | Discharge Summary ---
Date of Service July 19, 2023 Admission HPI Per Admitting Provider Ms. Marshall is a 72 year old female that presented to the ED with headache for 2 days and chills/rigors for 1 day. She has a complex history that includes a lengthy hospitalization from 08/18/22-09/02/22 for MRSA PNA with bacteremia and treated with 6 weeks of IV antibiotics, treated as infective endocarditis as JAY could not be done. After discharge from the hospital she went to a nursing facility for rehab ([facility]) and just went back to her sisters home in February 2023. She was in her usual state of health until recently when she had her migraine attack couple days ago. She also had chills and rigors today that prompted her to come to the emergency. She denies fever, SOB, chest pain, palpitations, N/V/D, abdominal pain or tenderness, recent falls or trauma. Reports adequate appetite. During our encounter, she complains of headache and hunger. She takes Tylenol, tramadol twice daily and Topamax 3 times a day (dose recently increased a month ago her topiramate was increased a month ago - topiramate 50mg AM, mid day and 25 mg Q PM). She is at bedside. She is afebrile and hemodynamically. On labs, Leukocytosis 13.52, creatinine elevated 2.06; baseline 1.07-1.15. Procalcitonin 1.65. Biofire negative. PMH includes: COPD, bioprostetic AVR, CKD3, CHF, HLD, CKD3. Patient will be admitted for further evaluation of her elevated WBC and headaches. Blood, sputum, and urine cultures pending. Will start on empiric antibiotics pending culture results. Admission Exam Per Admitting Provider Neuro: AAOx4, PERRLA, no aphagia, memory changes, CNII-XII grossly intact HEENT: head normocephalic, moist mucus membranes CV: S1/S2, (-) M/G/R, (-) edema, cap refill < 3 seconds Resp: Lungs CTA GI: Abdomen large S/NT/ND, Ax4 bowel sounds, (-) CVA tenderness Musculoskeletal: 5/5 B/L UE strength, 5/5 B/L LE strength. No gait disturbance Skin: (-) rashes , (-) erythema. Psych: euthymic yet tired mood Principal Diagnosis Pneumonia Urinary tract infection CKD III Discharge Data Allergies Allergy/AdvReac Type Severity Reaction Status Date / Time dog dander Allergy Intermediate Sneezing Verified 03/20/19 08:57 egg Allergy SPECIFIC-DUCK Verified 03/20/19 08:57 EGG CAUSED FACIAL SWELLING pollen extracts Allergy HAYFEVER Verified 03/20/19 08:57 methylprednisolone AdvReac Unknown Verified 03/20/19 08:57 [From Depo-Medrol] Consultations 07/16/23 16:49 ED Decision to Admit Stat Procedures Performed Laboratory Results WBC 4.45 K/ul (4.8-10.8) L 07/19/23 05:35 RBC 3.04 M/uL (4.20-5.40) L 07/19/23 05:35 Hgb 9.8 g/dl (12.0-16.0) L 07/19/23 05:35 Hct 30.4 % (37.0-47.0) L 07/19/23 05:35 MCV 100.0 fL (80.0-100.0) 07/19/23 05:35 MCH 32.2 pg (25.0-34.0) 07/19/23 05:35 MCHC 32.2 g/dL (32.0-36.0) 07/19/23 05:35 RDW Std Deviation 62.0 fL (36.4-46.3) H 07/19/23 05:35 RDW Coeff of Moni 17.0 % (11.5-14.5) H 07/19/23 05:35 Plt Count 136 K/uL (130-400) 07/19/23 05:35 MPV 12.3 fL (9.4-12.4) 07/19/23 05:35 Immature Gran % (Auto) 0.7 % 07/16/23 15:05 Neut % (Auto) 80.7 % 07/16/23 15:05 Lymph % (Auto) 8.1 % 07/16/23 15:05 [place] % (Auto) 8.9 % 07/16/23 15:05 Eos % (Auto) 1.3 % 07/16/23 15:05 Baso % (Auto) 0.3 % 07/16/23 15:05 Neut # (Auto) 10.90 K/uL (1.40-6.50) H 07/16/23 15:05 Lymph # (Auto) 1.10 K/uL (1.20-3.40) L 07/16/23 15:05 Dodge # (Auto) 1.21 K/uL (0.11-0.59) H 07/16/23 15:05 Eos # (Auto) 0.18 K/uL (0.00-0.50) 07/16/23 15:05 Baso # (Auto) 0.04 K/uL (0.00-0.20) 07/16/23 15:05 Immature Gran # (Auto) 0.09 K/uL (0.01-0.20) 07/16/23 15:05 PT 10.4 Seconds (9.0-12.0) 07/16/23 15:05 INR 0.9 (0.9-1.1) 07/16/23 15:05 APTT 28 Seconds (21-31) 07/16/23 15:05 PTT Ratio 1.0 07/16/23 15:05 Sodium 139 mmol/L (136-145) 07/19/23 05:35 Potassium 4.0 mmol/L (3.5-5.1) 07/19/23 05:35 Chloride 114 mmol/L (98-107) H 07/19/23 05:35 Carbon Dioxide 21 mmol/L (21-32) 07/19/23 05:35 Anion Gap 4 (3-11) 07/19/23 05:35 BUN 23 mg/dl (6-23) 07/19/23 05:35 Creatinine 1.82 mg/dl (0.6-1.2) H 07/19/23 05:35 Est Cr Clr Drug Dosing 36.2 ml/min 07/19/23 05:35 Est GFR ( Amer) 31.2 ml/min 07/19/23 05:35 Est GFR (Non-Af Amer) 26.9 ml/min 07/19/23 05:35 BUN/Creatinine Ratio 12.6 (10-20) 07/19/23 05:35 Glucose 90 mg/dl (70-99(Fasting)) 07/19/23 05:35 Lactate 1.2 mmol/L (0.4-2.0) 07/16/23 20:47 Calcium 8.9 mg/dl (8.6-10.3) 07/19/23 05:35 Magnesium 2.2 mg/dl (1.7-2.4) 07/16/23 15:05 Total Bilirubin 0.5 mg/dl (0.2-1.0) 07/16/23 15:05 Direct Bilirubin 0.2 mg/dl (0-0.2) 07/16/23 15:05 AST 23 U/L (13-39) 07/16/23 15:05 ALT 14 U/L (7-52) 07/16/23 15:05 Alkaline Phosphatase 110 U/L (34-104) H 07/16/23 15:05 Troponin I High Sens 10.8 pg/ml (0-14) 07/16/23 15:05 Total Protein 8.0 gm/dl (6.0-8.3) 07/16/23 15:05 Albumin 4.0 gm/dl (3.4-5.0) 07/16/23 15:05 Procalcitonin 0.41 ng/ml (0-0.5) 07/19/23 05:35 Urine Color Yellow 07/16/23 15:05 Urine Appearance Clear (Clear) 07/16/23 15:05 Urine pH 7.0 (4.5-7.5) 07/16/23 15:05 Ur Specific [place] 1.011 (1.000-1.030) 07/16/23 15:05 Urine Protein Negative (Negative) 07/16/23 15:05 Urine Glucose (UA) Negative (Negative) 07/16/23 15:05 Urine Ketones Negative (Negative) 07/16/23 15:05 Urine Blood Trace (Negative) H 07/16/23 15:05 Urine Nitrite Negative (Negative) 07/16/23 15:05 Urine Bilirubin Negative (Negative) 07/16/23 15:05 Urine Urobilinogen Negative (Negative) 07/16/23 15:05 Ur Leukocyte Esterase 3+ (Negative) H 07/16/23 15:05 Urine WBC (Auto) >30 /hpf (0-5) H 07/16/23 15:05 Urine RBC (Auto) 0-4 /hpf (0-4) 07/16/23 15:05 U Hyaline Cast (Auto) 1-5 /lpf (0-5) 07/16/23 15:05 U Epithel Cells (Auto) 20-30 /lpf (0-5) H 07/16/23 15:05 Urine Bacteria (Auto) 4+ (Negative) H 07/16/23 15:05 Nasal Screen MRSA (PCR) Negative (Negative) 07/16/23 18:10 Random Vancomycin 24.1 mcg/ml (10-20) H 07/17/23 05:35 Adenovirus (PCR) Not Detected (NotDetected) 07/16/23 15:05 B. pertussis DNA (PCR) Not Detected (NotDetected) 07/16/23 15:05 B.parapertussis DNA PCR Not Detected (NotDetected) 07/16/23 15:05 C. pneumoniae DNA (PCR) Not Detected (NotDetected) 07/16/23 15:05 Coronavirus OC43 (PCR) Not Detected (NotDetected) 07/16/23 15:05 Coronavirus HKU1 (PCR) Not Detected (NotDetected) 07/16/23 15:05 Coronavirus 229E (PCR) Not Detected (NotDetected) 07/16/23 15:05 SARS-CoV-2 (PCR) Not Detected (NotDetected) 07/16/23 15:05 Coronavirus NL63 (PCR) Not Detected (NotDetected) 07/16/23 15:05 Human Metapneumovir PCR Not Detected (NotDetected) 07/16/23 15:05 Influenza Type A (PCR) Not Detected (NotDetected) 07/16/23 15:05 Influenza Type B (PCR) Not Detected (NotDetected) 07/16/23 15:05 M. pneumoniae (PCR) Not Detected (NotDetected) 07/16/23 15:05 Parainfluenza 1 (PCR) Not Detected (NotDetected) 07/16/23 15:05 Parainfluenza 2 (PCR) Not Detected (NotDetected) 07/16/23 15:05 Parainfluenza 3 (PCR) Not Detected (NotDetected) 07/16/23 15:05 Parainfluenza 4 (PCR) Not Detected (NotDetected) 07/16/23 15:05 RSV (PCR) Not Detected (NotDetected) 07/16/23 15:05 Entero/Rhino (PCR) Not Detected (NotDetected) 07/16/23 15:05 Impressions Chest X-Ray 07/16/23 15:03 XR chest 1V portable CLINICAL HISTORY: Sepsis TECHNIQUE: Single frontal radiograph of the chest was obtained. Comparison: Comparison is made to chest radiograph 08/29/2022 FINDINGS: No lines and tubes are seen. Interval improvement in previously noted airspace opacities. Mild prominence of the pulmonary vasculature. Cardiac silhouette is stable. No evidence of pleural effusion or pneumothorax. IMPRESSION: No evidence of pneumonia. Pulmonary vascular prominence is seen. ACT 112: Negative or not required by law. Electronically signed by: Gage Birmingham M.D. 07/16/2023 4:[address] 07/16/23 15:03 CT head/brain wo con CLINICAL HISTORY: headache Technique: Contiguous axial CT images of the head were acquired from the base of the skull to the vertex without intravenous contrast administration. Images were viewed in brain, subdural and bone windows. Automated dose lowering techniques and/or adjustment according to patient size were utilized for this exam. Comparison: Comparison is made to CT head 08/20/2022 Findings: The ventricles, basal cisterns, and cerebral sulci are normal. There is no acute intracranial hemorrhage or evidence of acute territorial infarction. Neither mass effect, shift of the midline structures, nor abnormal extra-axial fluid collections are shown. Imaged portions of the paranasal sinuses and mastoid air cells are clear. The orbits appear normal. There are no acute fractures of the calvaria or scalp swelling. Impression: No acute intracranial hemorrhage, no evidence of acute territorial infarction or other acute intracranial disease process. ACT 112: Negative or not required by law. Electronically signed by: Gage Birmingham M.D. 07/16/2023 3:[address] 07/16/23 16:52 CT chest diagnostic wo con CLINICAL HISTORY: pna TECHNIQUE: Multidetector row helical CT of the chest was performed. Coronal and sagittal reformations were obtained. Automated dose lowering techniques and/or adjustment according to patient size were utilized for this exam. CT DOSE: 1044.3 mGy.cm Comparison: Comparison is made to CT chest 07/16/2018 and chest radiograph 07/16/2023 FINDINGS: Lungs and pleura: Atelectasis is seen. A few nodular and groundglass foci are seen in the bilateral lungs. Heart and pericardium: Cardiomegaly is seen with biatrial enlargement. Vessels: The pulmonary trunk is enlarged measuring 35 mm. Mediastinum and robina: Unremarkable. Chest wall and lower neck: Unremarkable. Abdomen: A hiatal hernia is seen. Patient is status post cholecystectomy. Bones: Degenerative changes in the thoracic spine. IMPRESSION: There are scattered foci of groundglass and nodular densities compatible with pneumonia. ACT 112: Negative or not required by law. Electronically signed by: Gage Birmingham M.D. 07/16/2023 6:18 PM Renal Ultrasound 07/17/23 08:28 RENAL ULTRASOUND CLINICAL HISTORY: Acute kidney injury. COMPARISON STUDY: CT of the abdomen and pelvis June 06, 2022. TECHNIQUE: Sonography of the kidneys and the urinary bladder was performed. FINDINGS: The right kidney measures 9.5 cm in maximal dimension and the left measures 10.5 cm. This exam is compromised by suboptimal penetration. However, there is no hydronephrosis. There is a 1.5 cm lesion arising from the lower pole of the right kidney and a 1.7 cm left upper pole renal lesion. These lesions have internal echoes, likely artifactual. Cysts are favored. Ureteral jets were not visualized. Renal size and cortical thickness are within normal limits. IMPRESSION: 1. No hydronephrosis. 2. Bilateral renal lesions, as described above. These are suboptimally assessed on this exam due to suboptimal penetration however, these favor cysts. ACT 112: Negative or not required by law. Electronically signed by: Shawn Juarez M.D. 07/17/2023 10:10 AM Ordered Studies 07/16/23 15:03 CT head/brain wo con Stat 07/16/23 16:52 CT chest diagnostic wo con Routine 07/17/23 08:28 US Renal Bladder [US renal/blad retro comp] Routine Hospital Course (1) Leukocytosis: (2) Chronic diastolic CHF (congestive heart failure): (3) PAULETTE (acute kidney injury): (4) S/P TAVR (transcatheter aortic valve replacement): (5) Paroxysmal atrial fibrillation: Plan Ms. Marshall is a 72 year old female that presented to the ED with he adache for 2 days and chills/rigors for 1 day. She has a complex history that includes a lengthy hospitalization from 08/18/22-09/02/22 for MRSA PNA with bacteremia and treated with 6 weeks of IV antibiotics, treated as infective endocarditis as JAY could not be done. After discharge from the hospital she went to a nursing facility for rehab ([facility]) and just went back to her sisters home in February 2023. She was in her usual state of health until recently when she had her migraine attack couple days ago. She also had chills and rigors today that prompted her to come to the emergency. She denies fever, SOB, chest pain, palpitations, N/V/D, abdominal pain or tenderness, recent falls or trauma. Reports adequate appetite. During our encounter, she complains of headache and hunger. She takes Tylenol, tramadol twice daily and Topamax 3 times a day (dose recently increased a month ago her topiramate was increased a month ago - topiramate 50mg AM, mid day and 25 mg Q PM). She is at bedside. She is afebrile and hemodynamically. On labs, Leukocytosis 13.52, creatinine elevated 2.06; baseline 1.07-1.15. Procalcitonin 1.65. Biofire negative. PMH includes: COPD, bioprostetic AVR, CKD3, CHF, HLD, CKD3.Patient will be admitted for further evaluation of her elevated WBC and headaches. Blood, sputum, and urine cultures pending. Will start on empiric antibiotics pending culture results. Pneumonia UTI Possible sepsis H/O MRSA pneumonia --CT Chest:There are scattered foci of groundglass and nodular densities compatible with pneumonia. -- Blood culture negative to date --Urine culture growing E. coli --Procalcitonin 1.16 --Biofire: Negative --Nasal MRSA: Negative Continue cefepime, Doxycycline>> ceftriaxone, Doxy Received IV fluids Plan to discharge home today CKD III: No PAULETTE given outpatient Cr in Mar 2023 is 1.9 Cr:1.8 today Likely new baseline creatinine level Possible renal cysts/lesions --Renal USD:No hydronephrosis. Bilateral renal lesions, as described above. These are suboptimally assessed on this exam due to suboptimal penetration however, these favor cysts. Avoid nephrotoxic agents as able Bladder scan as needed Migraines: Continue Topiramate Paroxysmal atrial fibrillation: Continue Metoprolol and Amiodarone Not anticoagulated due to history of GI bleeding Chronic diastolic CHF due to valvular disease: S/p TAVR Nonobstructive coronary artery disease Continue Plavix Resume diuretics as able Monitor volume status Hypothyroidism: continue levothyroxine Morbid obesity BMI 40 Code Status: Full Code DVT Px: Heparin SQ Disposition: Home Health Total Time Total Time Spent Total Time Spent (In Minutes): 50 minutes Discharge Plan Discharge Items Patient Disposition: Home - Home Health Services Reason For Visit: HEADACHE, CHILLS/RIGORS Discharge Diagnosis: Pneumonia Urinary tract infection CKD III Activity: Per Instructions section Exercise/Sports: Wait until after follow-up appointment Non-emergency contact: Primary Care Provider Call non-emergency contact if: you have any medication questions, your symptoms worsen, your pain is concerning for you and you have a fever Follow-up/Referrals: Markell Linton MD [Primary Care Provider] - Diet: Heart Healthy Diet Texture: Easy to Chew Addtl Attending Provider Instructions: Follow-up with your primary care physician Dr. Linton on July 24, 2023 at 9 AM -- Your final blood cultures are pending at the time of discharge. Follow-up with your physician for results. --Complete antibiotic course cefdinir and doxycycline as prescribed. Seek immediate medical attention if your symptoms reoccur or worsen Please take all medications as instructed on discharge list below. Please call if you have any questions or problems. You can reach a [facility] hospitalist on duty at [facility] 24 hours a day by calling [phone] Pending Studies at Discharge: Yes Studies:: Blood cultures Stand-Alone Forms: My [facility], Smoking Cessation Medications and DC Order Prescriptions: New doxycycline hyclate 100 mg Capsule 100 mg PO BID Qty: 8 0RF cefdinir 300 mg capsule 300 mg PO BID Qty: 8 0RF Continued ipratropium-albuterol 0.5 mg-3 mg(2.5 mg base)/3 mL solution for nebulization 3 ml INHALATION Q6H PRN (Reason: Shortness Of Breath Or Wheezing) famotidine 10 mg Tablet 10 mg PO DAILY Qty: 30 0RF amiodarone 200 mg tablet 200 mg PO QAM Qty: 30 0RF simvastatin 10 mg tablet 10 mg PO HS Qty: 30 0RF clopidogrel 75 mg tablet 75 mg PO DAILY Qty: 30 0RF levothyroxine 25 mcg tablet 25 mcg PO DAILY Qty: 30 0RF ascorbic acid (vitamin C) 500 mg tablet 250 mg PO DAILY@12 Qty: 30 0RF Rx Instructions: Take with ferrous sulfate. pantoprazole 40 mg Tablet,Delayed Release (Dr/Ec) 40 mg PO BID Qty: 60 0RF ferrous sulfate 325 mg (65 mg iron) tablet 325 mg PO DAILY@12 Qty: 30 0RF Rx Instructions: Take with lunch + ascorbic acid. aspirin 81 mg Tablet,Chewable 81 mg PO DAILY Qty: 30 0RF fluticasone propionate [Flovent HFA] 220 mcg/actuation Hfa Aerosol Inhaler 1 puff INHALATION BID Qty: 12 0RF albuterol sulfate [Ventolin HFA] 90 mcg/actuation Hfa Aerosol Inhaler 2 puff INHALATION QID PRN (Reason: Shortness Of Breath Or Wheezing) Qty: 6.7 0RF metoprolol succinate 25 mg Capsule,Sprinkle,Er 24hr 25 mg PO QAM Qty: 30 0RF topiramate 25 mg tablet 50 mg PO BID furosemide 20 mg tablet 60 mg PO QAM tramadol 50 mg tablet 50 mg PO BID PRN (Reason: pain) Discharge Orders: Discharge Order (Routine); Ordered 07/19/23 Ordered By: Berny Tay Admission Data Admit Date/Time: 07/16/23 20:28 Attending Provider: Berny Tay Admit Provider: Chago Trevino Primary Care Provider: Markell Linton Other Providers: Chago Trevino
== END 2023-07-19 13:34 | disposition home or self-care (01) | DRG 871 ==
LOC: ED 14:38 → INTOOBSV 20:28 → SUATTDRO 20:28 → 2W 20:28

== ENCOUNTER 2024-03-16 02:15 | Inpatient (IN) ==
[2024-03-16 03:44] LABS: Albumin Globulin Ratio 0.7 (0.9-2); Albumin Level 3.4 gm/dl (3.4-5.0); BUN Creatinine Ratio 15.1 (10-20); Basophils # (auto) 0.05 K/uL (0.00-0.20); Basophils % (auto) 0.4 %; Bilirubin,Total 0.4 mg/dl (0.2-1.0); Calcium 9.4 mg/dl (8.6-10.3); Creatinine Clr Calc Pharmacy 23.8 ml/min; Eosinophils # (auto) 0.57 K/uL (0.00-0.50); Globulin 4.6 gm/dl (2.5-4.0); Hematocrit (blood only) 33.1 % (37.0-47.0); Hemoglobin 10.4 g/dl (12.0-16.0); Immature Granulocytes # (auto) 0.04 K/uL (0.01-0.20); Immature Granulocytes % (auto) 0.4 %; Lymphocytes % (auto) 13.2 %; Mean Corpuscular Hemoglobin 31.5 pg (25.0-34.0); Mean Corpuscular Hgb Conc 31.4 g/dL (32.0-36.0); Mean Corpuscular Volume 100.3 fL (80.0-100.0); Mean Platelet Volume 10.4 fL (9.4-12.4); Monocytes # (auto) 1.02 K/uL (0.11-0.59); Monocytes % (auto) 8.9 %; Neutrophils # (auto) 8.22 K/uL (1.40-6.50); Neutrophils % (auto) 72.1 %; Platelet Count 299 K/uL (130-400); Potassium 4.2 mmol/L (3.5-5.1); RDW Coefficient of Variation 14.5 % (11.5-14.5); RDW Standard Deviation 53.6 fL (36.4-46.3)
[2024-03-16 03:49] LABS: Troponin I High Sensitivity 8.5 pg/ml (0-14)
[2024-03-16 04:21] LABS: Adenovirus PCR Not Detected (NotDetected); Bordetella parapertussis PCR Not Detected (NotDetected); Bordetella pertussis PCR Not Detected (NotDetected); Chlamydia pneumoniae PCR Not Detected (NotDetected); Coronavirus 229E PCR Not Detected (NotDetected); Coronavirus CoV-2 (COVID19)PCR Not Detected (NotDetected); Coronavirus HKU1 PCR Not Detected (NotDetected); Coronavirus NL63 PCR Not Detected (NotDetected); Coronavirus OC43PCR Not Detected (NotDetected); Human Metapneumovirus PCR Not Detected (NotDetected); Influenza A PCR Not Detected (NotDetected); Influenza B PCR Not Detected (NotDetected); Mycoplasma pneumoniae PCR Not Detected (NotDetected); Parainfluenza Virus 1 PCR Not Detected (NotDetected); Parainfluenza Virus 2 PCR Not Detected (NotDetected); Parainfluenza Virus 3 PCR Not Detected (NotDetected); Parainfluenza Virus 4 PCR Not Detected (NotDetected); Respiratory Syncytial VirusPCR Not Detected (NotDetected); Rhinovirus/Enterovirus PCR Not Detected (NotDetected)
--- NOTE | 2024-03-16 04:55 | Emergency Department Note ---
Impression & Plan Bilateral pneumonia, Hypoxia Admit to the [facility] ED Provider Note NAME: IDRIS YOUNG AGE: 73 SEX: Female INFORMANT: Patient ED PROVIDER(S): Monica Delacruz DO CHIEF COMPLAINT: Dizziness; productive cough and shortness of breath PLAN: Disposition: Admit to the [facility] MEDICAL DECISION MAKING: this is a 73-year-old female patient who presents to the emergency department with multiple complaints. The patient became dizzy when she was up to the bathroom tonight. She describes right-sided chest pain while coughing. Her cough is productive of yellow mucus. She describes feeling very hot. Much of her symptoms have been ongoing over the past couple of weeks. Patient sister accompanies her here tonight and states that she does not get up out of bed for anything except to go to the bathroom. In fact, she even eats in bed. Chest x-ray show evidence of bilateral pneumonia. The patient became hypoxic while here in the emergency department had to be placed on supplemental oxygen. She was treated with IV Zosyn. Bio fire testing was negative. Laboratory studies reveal a white blood cell count of 11.4. Hemoglobin was 10.4 which is baseline for the patient. BUN of 30 and creatinine of 1.9 which is stable. BNP of 116 which is mildly elevated. Troponin was negative. I discussed the case with the [facility] and they will evaluate for further inpatient care. Care/management discussed with: audio visual manager and [facility] Triage Nursing notes: reviewed and agree with them. Vital Signs: reviewed and remarkable for hypoxia Additional History obtained from: The patient's sister who is at the bedside and is the power of commercial attorney Chronic Medical/Social Conditions affecting care: Multiple chronic health issues Differential Diagnosis: Pneumonia, bronchitis, viral illness, sepsis, dehydration Diagnostics, independently interpreted by me: ECG: Normal sinus rhythm at a rate of [address] segment elevation or signs of ischemia. There is no ectopy. Cardiac Monitoring: Normal sinus rhythm at a rate of 71 Imaging studies: portable chest x-ray: Bilateral pneumonia; moderate pulmonary vascular congestion as per my independent interpretation HPI: 73 year old Female arrives for evaluation of Dizziness, productive cough and right-sided chest pain. The patient became dizzy when she was up to the bathroom tonight. She describes right-sided chest pain while coughing. Her cough is productive of yellow mucus. She describes feeling very hot. Much of her symptoms have been ongoing over the past couple PAST MEDICAL HISTORY: See Below, PAST SURGICAL HISTORY: See Below, SOCIAL HISTORY: See Below, HOME MEDICATIONS: see list ALLERGIES: see list VITALS: See Below PHYSICAL EXAMINATION: HEENT: Head - normocephalic and atraumatic Pupils are equal, round, and reactive to light. Extraocular eye muscles are intact, and sclera are anicteric. Nose - moist nasal mucosa without. Mouth - moist buccal mucosa. Oropharynx is nonerythematous and there is no tonsillar exudate or edema noted. Neck: Supple; no JVD, nuchal rigidity, cervical lymphadenopathy Heart: Regular rate and rhythm. There is a normal S1 and S2 with no murmurs, clicks, or gallops appreciated. Lungs: Diminished breath sounds in both lung bases with rhonchi Abdomen: Soft, completely nontender, nondistended, with good bowel sounds. There are no palpable pulsatile masses or hepatosplenomegaly. There is no guarding, rigidity, or rebound noted. Extremities: No evidence of cyanosis, clubbing, or edema. There are easily palpable peripheral pulses. Skin: warm and dry with good turgor and no rashes. Emergency department treatment: clinical dermatologist, IV Zosyn, supplemental oxygen. Emergency Department course: The patient was evaluated in room A-2. A complete history and physical was performed. Bio fire testing was obtained. Portable chest x-ray was performed. Order was placed for continuous cardiac monitoring. The patient was in a normal sinus rhythm at a rate of 71. Twelve-lead EKG was obtained. Blood cultures, procalcitonin and lactate were obtained. Patient became hypoxic and had to be placed on supplemental oxygen. Patient was treated with IV Zosyn. [facility]. Past Med/Surg History Problem List (Updated 03/16/24 @ 14:53 by Monica Delacruz DO) Hypoxia (Acute) Bilateral pneumonia (Acute) SOB (shortness of breath) URI (upper respiratory infection) (Acute) FPC (current) use of antithrombotics/antiplatelets (Acute) Headache (Acute) Status post heart valve replacement (Acute) Weakness (Acute) Leukocytosis Chronic diastolic CHF (congestive heart failure) PAULETTE (acute kidney injury) Sepsis Osteoarthritis of left knee Staphylococcus aureus pneumonia Morbid obesity Acute respiratory failure with hypercapnia Parainfluenza virus pneumonia S/P TAVR (transcatheter aortic valve replacement) Staphylococcus aureus bacteremia with sepsis Sepsis due to pneumonia Open wound of buttock Unable to care for self Ambulatory dysfunction (Acute) Failure of outpatient treatment (Acute) Obesity History of migraine Paroxysmal atrial fibrillation CKD (chronic kidney disease), stage III Pneumonia Candidiasis, intertriginous (Acute) Pedal edema (Acute) CHF (congestive heart failure) (Acute) Hypoxia (Acute) Encounter for pre-operative examination Atrial fibrillation Colonic polyp Esophageal candidiasis Peptic ulcer Atrial fibrillation with rapid ventricular response CHF (congestive heart failure) Social handicap Headache Tobacco abuse (Chronic) quit 3 months ago Abnormal CXR Anemia Hx of cholecystectomy (Chronic) Dyslipidemia (Chronic) Aortic stenosis (Chronic) COPD (chronic obstructive pulmonary disease) (Chronic) GERD (gastroesophageal reflux disease) (Chronic) Medical History Hx MRSA infection 07/2022, went to [facility] from group home>transferred to [place] for 13 days Weakness uses wheelchair and walker prn FPC (current) use of antithrombotics/antiplatelets GERD (gastroesophageal reflux disease) Dyslipidemia Hx of colonic polyp CKD (chronic kidney disease), stage III f/u w/specialist thru [facility] Atrial fibrillation with rapid ventricular response currently on plavix f/u dr. bean [facility] Hx of aortic valve stenosis History of anemia no current issues Hx of acute respiratory failure 07/2023, hospitalized at [facility] w/pneumonia and UTI; per sister-pt cannot lay flat when sleeping Congestive heart failure COPD (chronic obstructive pulmonary disease) daily and prn inh; also has neb prn>not used often Kidney stones hx Osteoarthritis Stomach ulcer hx ~2009 Migraine SOB (shortness of breath) on exertion hx Cardiac murmur hx Surgical History Hx of cardiac catheterization 2018, preoperative for TAVR, [facility], no stents; f/u dr bean [facility] cardio. Hx of cholecystectomy S/P TAVR (transcatheter aortic valve replacement) 05/09/2019, [facility] [place]; f/u dr. bean shazia History of esophagogastroduodenoscopy (EGD) History of colonoscopy History of cystoscopy Family History Father Family history of diabetes mellitus Social History (Updated 03/16/24 @ 11:51 by Mireille De Guzman RN) Smoking Status: Former smoker Tobacco Type: Cigarettes Cigarettes Per Day: QUIT 2 MONTHS AGO; Smoking End Date: 2018; Second Hand Exposure: No; Do You Dip or Chew Tobacco: No; Tobacco Cessation Education Requested by Patient: No Hx Alcohol Use: No Hx Substance Use: No Preferred Language: [place] Communication Ability: Effective Certified Activities Director Required: No Beliefs That Will Affect Care: None Current Living Situation: Family Current Living Situation Comment: Lives at home with 2 sisters Other Information That Helps Us Care for You: No Feels Safe at Home: Yes Safety Concerns: Feels Safe At This Time Assistive Devices: Denture - Upper, Denture - Lower, Hospital Bed and Walker Allergies Allergies Allergy/AdvReac Type Severity Reaction Status Date / Time dog dander Allergy Intermediate Sneezing Verified 10/11/23 11:38 azithromycin Allergy Rash Verified 10/11/23 11:38 Corticosteroids Allergy Rash Verified 10/11/23 11:38 (Glucocorticoids) egg Allergy SPECIFIC-DUCK Verified 10/11/23 11:38 EGG CAUSED FACIAL SWELLING gabapentin Allergy "went very Verified 10/11/23 11:38 loopy" nystatin Allergy Rash Verified 10/11/23 11:38 pollen extracts Allergy HAYFEVER Verified 10/11/23 11:38 methylprednisolone AdvReac Unknown Verified 10/11/23 11:38 [From Depo-Medrol] Home Meds Home Medications Medication Instructions Recorded Confirmed ipratropium 0.5 mg-albuterol 3 mg 3 ml inhalation Q6H PRN Shortness 04/03/22 03/16/24 (2.5 mg base)/3 mL nebulization Of Breath Or Wheezing soln furosemide 20 mg tablet 40 mg PO QAM 07/16/23 03/16/24 tramadol 50 mg tablet 50 mg PO BID PRN pain 07/16/23 03/16/24 acetaminophen 500 mg tablet 1,000 mg PO TID 10/02/23 03/16/24 aspirin 81 mg chewable tablet 81 mg PO QAM 10/02/23 03/16/24 clopidogrel 75 mg tablet 75 mg PO QAM 10/02/23 03/16/24 famotidine 10 mg tablet 10 mg PO QAM 10/02/23 03/16/24 fluticasone propionate 110 1 inh inhalation QAM 10/02/23 03/16/24 mcg/actuation HFA aerosol inhaler levothyroxine 50 mcg tablet 50 mcg PO QAM 10/02/23 03/16/24 magnesium oxide 400 mg PO BID 10/02/23 03/16/24 topiramate 50 mg tablet (Topamax) 25 - 50 mg PO UD 10/02/23 03/16/24 triamcinolone acetonide 0.5 % 1 applic topical BID 03/16/24 03/16/24 topical cream (Triderm) Previous Rx's Medication Instructions Recorded albuterol sulfate 90 mcg/actuation 2 puff inhalation QID PRN 09/02/22 aerosol inhaler (Ventolin HFA) Shortness Of Breath Or Wheezing #6.7 grams amiodarone 200 mg tablet 200 mg PO QAM #30 tabs 09/02/22 ascorbic acid (vitamin C) 500 mg 250 mg (1/2 x 500 mg) PO DAILY@12 09/02/22 tablet #30 tabs ferrous sulfate 325 mg (65 mg 325 mg PO DAILY@12 #30 tabs 09/02/22 iron) tablet metoprolol succinate 25 mg capsule 25 mg PO QAM #30 ea 09/02/22 sprinkle, ext. release 24 hr pantoprazole 40 mg tablet,delayed 40 mg PO BID #60 tabs 09/02/22 release simvastatin 10 mg tablet 10 mg PO HS #30 tabs 09/02/22 Results & Data (ED) Vital Signs Vital Signs - 24 hr 03/16/24 02:03 03/16/24 02:03 03/16/24 02:19 Temperature 36.6 C Temperature Source Oral Pulse Rate 83 Pulse Rate [Right Finger] 77 Pulse Rhythm Regular Pulse Rhythm [Right Finger] Pulse Strength Normal Pulse Strength [Right Finger] Respiratory Rate 23 18 Respiratory Effort / Characteristics Non-Labored Non-Labored Respiratory Depth Normal Normal Respiratory Pattern Regular Regular Blood Pressure 100/57 L Blood Pressure [Left Arm] 100/57 L Blood Pressure Mean 71 Blood Pressure Mean [Left Arm] 71 Blood Pressure Position [Left Arm] Lying Pulse Oximetry 91 89 L Oxygen Delivery Method Room Air Room Air Room Air Oxygen Flow Rate Sepsis Recent Fever Within 48 Hours No Sepsis New/Unexplained Change in Mental Status No Sepsis Action Taken by Nursing No Action Required 03/16/24 02:23 03/16/24 03:00 03/16/24 03:12 Temperature Temperature Source Pulse Rate 81 71 Pulse Rate [Right Finger] 73 Pulse Rhythm Regular Pulse Rhythm [Right Finger] Regular Pulse Strength Pulse Strength [Right Finger] Normal Respiratory Rate 20 20 Respiratory Effort / Characteristics Non-Labored Spontaneous Respiratory Depth Normal Respiratory Pattern Regular Blood Pressure Blood Pressure [Left Arm] 109/50 L Blood Pressure Mean Blood Pressure Mean [Left Arm] 69 Blood Pressure Position [Left Arm] Lying Pulse Oximetry 92 90 Oxygen Delivery Method Room Air Room Air Oxygen Flow Rate Sepsis Recent Fever Within 48 Hours Sepsis New/Unexplained Change in Mental Status Sepsis Action Taken by Nursing 03/16/24 05:00 03/16/24 05:22 Temperature Temperature Source Pulse Rate Pulse Rate [Right Finger] 73 71 Pulse Rhythm Pulse Rhythm [Right Finger] Regular Regular Pulse Strength Pulse Strength [Right Finger] Normal Normal Respiratory Rate 20 22 Respiratory Effort / Characteristics Non-Labored Non-Labored Respiratory Depth Normal Normal Respiratory Pattern Regular Regular Blood Pressure Blood Pressure [Left Arm] 105/50 L 102/50 L Blood Pressure Mean Blood Pressure Mean [Left Arm] 68 67 Blood Pressure Position [Left Arm] Pulse Oximetry 90 97 Oxygen Delivery Method Room Air Nasal Cannula Oxygen Flow Rate 1 Sepsis Recent Fever Within 48 Hours Sepsis New/Unexplained Change in Mental Status Sepsis Action Taken by Nursing Laboratory Data 03/16/24 02:27 03/16/24 02:27 Lab Results 03/16/24 03/16/24 03/16/24 Range/Units 02:27 03:23 05:46 WBC 11.40 H (4.8-10.8) K/ul RBC 3.30 L (4.20-5.40) M/uL Hgb 10.4 L (12.0-16.0) g/dl Hct 33.1 L (37.0-47.0) % MCV 100.3 H (80.0-100.0) fL MCH 31.5 (25.0-34.0) pg MCHC 31.4 L (32.0-36.0) g/dL RDW Std Deviation 53.6 H (36.4-46.3) fL RDW Coeff of Moni 14.5 (11.5-14.5) % Plt Count 299 (130-400) K/uL MPV 10.4 (9.4-12.4) fL Immature Gran % (Auto) 0.4 % Neut % (Auto) 72.1 % Lymph % (Auto) 13.2 % [place] % (Auto) 8.9 % Eos % (Auto) 5.0 % Baso % (Auto) 0.4 % Neut # (Auto) 8.22 H (1.40-6.50) K/uL Lymph # (Auto) 1.50 (1.20-3.40) K/uL [place] # (Auto) 1.02 H (0.11-0.59) K/uL Eos # (Auto) 0.57 H (0.00-0.50) K/uL Baso # (Auto) 0.05 (0.00-0.20) K/uL Immature Gran # (Auto) 0.04 (0.01-0.20) K/uL Sodium 139 (136-145) mmol/L Potassium 4.2 (3.5-5.1) mmol/L Chloride 108 H (98-107) mmol/L Carbon Dioxide 24 (21-32) mmol/L Anion Gap 7 (3-11) BUN 30 H (6-23) mg/dl Creatinine 1.99 H (0.6-1.2) mg/dl Est Cr Clr Drug Dosing 23.8 ml/min eGFR 25.73 BUN/Creatinine Ratio 15.1 (10-20) Glucose 108 H (70-99(Fasting)) mg/dl Lactate 1.0 (0.4-2.0) mmol/L Calcium 9.4 (8.6-10.3) mg/dl Total Bilirubin 0.4 (0.2-1.0) mg/dl AST 20 (13-39) U/L ALT 10 (7-52) U/L Alkaline Phosphatase 190 H (34-104) U/L Troponin I High Sens 8.5 (0-14) pg/ml B-Natriuretic Peptide 116 H (0-100) pg/ml Total Protein 8.0 (6.0-8.3) gm/dl Albumin 3.4 (3.4-5.0) gm/dl Globulin 4.6 H (2.5-4.0) gm/dl Albumin/Globulin Ratio 0.7 L (0.9-2) Lipase 9 L (11-82) U/L Procalcitonin 0.12 (0-0.5) ng/ml Adenovirus (PCR) Not Detected (NotDetected) B. pertussis DNA (PCR) Not Detected (NotDetected) B.parapertussis DNA PCR Not Detected (NotDetected) C. pneumoniae DNA (PCR) Not Detected (NotDetected) Coronavirus OC43 (PCR) Not Detected (NotDetected) Coronavirus HKU1 (PCR) Not Detected (NotDetected) Coronavirus 229E (PCR) Not Detected (NotDetected) SARS-CoV-2 (PCR) Not Detected (NotDetected) Coronavirus NL63 (PCR) Not Detected (NotDetected) Human Metapneumovir PCR Not Detected (NotDetected) Influenza Type A (PCR) Not Detected (NotDetected) Influenza Type B (PCR) Not Detected (NotDetected) M. pneumoniae (PCR) Not Detected (NotDetected) Parainfluenza 1 (PCR) Not Detected (NotDetected) Parainfluenza 2 (PCR) Not Detected (NotDetected) Parainfluenza 3 (PCR) Not Detected (NotDetected) Parainfluenza 4 (PCR) Not Detected (NotDetected) RSV (PCR) Not Detected (NotDetected) Entero/Rhino (PCR) Not Detected (NotDetected) Administered Medications Acetaminophen (Acetaminophen 500 Mg Tab) 1,000 mg PO TID REPLACED BY [facility] Stop: 04/15/24 08:59 Last Admin: 03/16/24 09:25 Dose: 1,000 mg Documented By: DANIEL Albuterol (Albut/Ipratrop 3mg/0.5mg Neb 3 Ml Vial) 3 ml NEB QIDR REPLACED BY [facility]; Protocol Stop: 04/15/24 07:55 Last Admin: 03/16/24 11:24 Dose: 3 ml Documented By: Admin: 03/16/24 08:41 Dose: 3 ml Documented By: DEAN Amiodarone HCl ([facility]arone 200 Mg Tab) [facility] Stop: 04/15/24 08:59 Last Admin: 03/16/24 09:22 Dose: 200 mg Documented By: DANIEL Ascorbic Acid (Ascorbic Acid 500 Mg Tab) 250 mg PO DAILY@12 REPLACED BY [facility] Stop: 04/15/24 11:59 Last Admin: 03/16/24 12:15 Dose: 250 mg Documented By: DANIEL Aspirin (Aspirin 81 Mg Chew) 81 mg PO [facility] Stop: 04/15/24 08:59 Last Admin: 03/16/24 09:21 Dose: 81 mg Documented By: DANIEL Clopidogrel Bisulfate (Clopidogrel Bisulfate 75 Mg Tab) 75 mg PO [facility] Stop: 04/15/24 08:59 Last Admin: 03/16/24 09:22 Dose: 75 mg Documented By: DANIEL Famotidine (Famotidine 10 Mg Tablet) 10 mg PO [facility] Stop: 04/15/24 08:59 Last Admin: 03/16/24 09:22 Dose: 10 mg Documented By: DANIEL Ferrous Sulfate (Ferrous Sulfate 325 Mg Tab) 325 mg PO DAILY@12 REPLACED BY [facility] Stop: 04/15/24 11:59 Last Admin: 03/16/24 12:15 Dose: 325 mg Documented By: DANIEL Furosemide (Furosemide 40 Mg Tab) 40 mg PO [facility] Stop: 04/15/24 08:59 Last Admin: 03/16/24 09:21 Dose: 40 mg Documented By: DANIEL Heparin Sodium (Porcine) (Heparin Sod 5,000 Unit/0.5 Ml Vial) 5,000 units SQ TID REPLACED BY [facility] Stop: 04/15/24 08:59 Last Admin: 03/16/24 10:13 Dose: 5,000 units Documented By: DANIEL Doxycycline Hyclate 100 mg/ (Dextrose) 100 mls @ 50 mls/hr IV Q12H REPLACED BY [facility] Stop: 03/21/24 08:59 Last Infusion: 03/16/24 12:24 Dose: Infused Documented By: Admin: 03/16/24 10:07 Dose: 50 mls/hr Documented By: DANIEL Piperacillin Sod/Tazobactam Sod (Zosyn) 4.5 gm in 100 mls @ 25 mls/hr IV Q8H REPLACED BY [facility]; Protocol Stop: 03/21/24 09:59 Last Admin: 03/16/24 12:14 Dose: 25 mls/hr Documented By: DANIEL Levothyroxine Sodium (Levothyroxine Sodium 50 Mcg Tablet) [facility]: 04/15/24 08:59 Last Admin: 03/16/24 09:22 Dose: 50 mcg Documented By: DANIEL Magnesium Oxide (Magnesium Oxide 400 Mg Tab) 400 mg PO BID [facility] Stop: 04/15/24 08:59 Last Admin: 03/16/24 09:22 Dose: 400 mg Documented By: DANIEL Metoprolol Succinate (Metoprolol Succ 25mg Ext Rel Tab) 25 mg PO QAM [facility] Stop: 04/15/24 08:59 Last Admin: 03/16/24 09:20 Dose: 25 mg Documented By: DANIEL Pantoprazole Sodium (Pantoprazole 40 Mg Tab) 40 mg PO BID [facility] Stop: 04/15/24 08:59 Last Admin: 03/16/24 09:21 Dose: 40 mg Documented By: DANIEL Topiramate (Topiramate 50 Mg Tab) 50 mg PO 0900,1400 [facility] Stop: 04/15/24 08:59 Last Admin: 03/16/24 09:29 Dose: 50 mg Documented By: DANIEL Tramadol HCl (Tramadol Hcl 50 Mg Tablet) 50 mg PO BID PRN PRN Reason: pain Stop: 04/15/24 07:55 Last Admin: 03/16/24 11:16 Dose: 50 mg Documented By: DANIEL Triamcinolone Acetonide (Triamcinolone Acet 0.5% Cr 15 Gm Tube) 1 appln TOP BID REPLACED BY [facility] Stop: 04/15/24 08:59 Last Admin: 03/16/24 09:22 Dose: 1 appln Documented By: DANIEL Discontinued Medications Piperacillin Sod/Tazobactam Sod (Zosyn) 4.5 gm in 100 mls @ 200 mls/hr IV NOW ONE; Protocol Stop: 03/16/24 05:53 Last Infusion: 03/16/24 06:32 Dose: Infused Documented By: Admin: 03/16/24 05:58 Dose: 200 mls/hr Documented By: TRISTAN Imaging Data Radiologist's Impression: Chest X-Ray 03/16/24 03:12 EXAM: XR chest 1V portable CLINICAL HISTORY: CHEST PAIN [facility] TECHNIQUE: An X-ray image of the chest is obtained in AP projection. COMPARISON: Compared to the previous study dated 07/16/2023. FINDINGS: Pulmonary Parenchyma: Bilateral strands and patchy opacities are noted at both lung cobos more evident at the left lung suggesting INTERSTITIAL PULMONARY DISEASE Veiling of the left costophrenic recess may suggest pleural effusion. Prominent hilar shadow on both sides. Heart and Mediastinum: Heart size and shape are normal. No mediastinal widening or masses. No hilar or mediastinal lymphadenopathy. Bony Thorax: Spondylo-degenerative changes. Bony thorax appears intact without fractures or deformities. Soft Tissues: Soft tissues overlying the chest wall are unremarkable. IMPRESSION: 1. Bilateral strands and patchy opacities are noted at both lung cobos more evident at the left lung suggesting interstitial pulmonary disease. Progressive curse. 2. Veiling of the left costophrenic recess mat suggests pleural effusion. Stationary. 3. Prominent hilar shadow on both sides denoting congestive changes.Stationary 4. HRCT is recommended for further evaluation if clinically indicated and inflammatory changes or pulmonry oedema should be ruled out. Electronically signed by Sejal Hoskins 03-16-2024 05:09 AM Discharge Plan Visit Data Chief Complaint: Dizziness Stated Complaint: Dizziness, SOB, Chest Pain ED Provider: Monica Delacruz Discharge Problem: Bilateral pneumonia, Hypoxia Patient Disposition: Admitted As Inpatient Discharge Instructions Interventions: ED Discharge Assessment Last Done: 03/16/24 07:25
--- NOTE | 2024-03-16 05:09 | XRay Report ---
EXAM: XR chest 1V portable CLINICAL HISTORY: CHEST PAIN [facility] TECHNIQUE: An X-ray image of the chest is obtained in AP projection. COMPARISON: Compared to the previous study dated 07/16/2023. FINDINGS: Pulmonary Parenchyma: Bilateral strands and patchy opacities are noted at both lung cobos more evident at the left lung suggesting INTERSTITIAL PULMONARY DISEASE Veiling of the left costophrenic recess may suggest pleural effusion. Prominent hilar shadow on both sides. Heart and Mediastinum: Heart size and shape are normal. No mediastinal widening or masses. No hilar or mediastinal lymphadenopathy. Bony Thorax: Spondylo-degenerative changes. Bony thorax appears intact without fractures or deformities. Soft Tissues: Soft tissues overlying the chest wall are unremarkable. IMPRESSION: 1. Bilateral strands and patchy opacities are noted at both lung cobos more evident at the left lung suggesting interstitial pulmonary disease. Progressive curse. 2. Veiling of the left costophrenic recess mat suggests pleural effusion. Stationary. 3. Prominent hilar shadow on both sides denoting congestive changes.Stationary 4. HRCT is recommended for further evaluation if clinically indicated and inflammatory changes or pulmonry oedema should be ruled out. Electronically signed by Sejal Hoskins 03-16-2024 05:09 AM
[2024-03-16] MEDS: PIPERACILLIN/TAZOBACTAM 4.5 GM/100 ML BAG IV ONE (05:58)
--- NOTE | 2024-03-16 06:16 | History & Physical Report ---
Date of Service March 16, 2024 Assessment & Plan (1) SOB (shortness of breath): Plan: 73-year-old female with past medical history significant for dyslipidemia, COPD, asthma, history of multifocal pneumonia, chronic heart failure with preserved ejection fraction, aortic stenosis, paroxysmal atrial fibrillation, status post TAVR, obesity, GERD, CKD stage IV, macrocytic anemia, history of tobacco use, currently living with her sister comes because of ongoing cough bringing up phlegm and right-sided chest pain on and off for last 2 weeks. Patient states since last 2 weeks feeling short of breath and having cough. She walks with a walker. For last 2 weeks is mostly in the bed. Walking to the bathroom making her short of breath. Also having on and off right-sided chest pain. Having some headache and attributes it to her migraines. Has some runny nose. No sore throat. Appetite is okay. No difficulty swallowing. No nausea. No abdominal pain. Normal bowel and bladder movements. Currently resting comfortably and hemodynamically stable. Patient has history of MRSA pneumonia in July 2022 with bacteremia and treated for 6 weeks with IV antibiotics for presumed endocarditis as JAY could not be done. Again in June 2023 was admitted and was treated for pneumonia and E. coli UTI. Shortness of breath and cough Saturating 89% on room air Pneumonia on chest x-ray Will get CT chest for better evaluation History of MRSA pneumonia and bacteremia Received Zosyn in the ER which we will continue Also IV doxycycline MRSA swab Nebs [id number] and as needed Close monitor History of COPD History of asthma History of tobacco abuse quit 2018. Smoked half pack a day for 30 years Continue home inhalers Nebs [id number] and as needed Chronic heart failure with preserved ejection fraction Acute stenosis status post TAVR On Lasix Monitor for volume overload Paroxysmal atrial fibrillation On metoprolol and amiodarone Not anticoagulated secondary to GI bleed Nonobstructive CAD On Plavix, aspirin ,statin and beta-nikhil CKD stage IV Presented with creatinine 1.9 around baseline Will follow labs Anemia Anemia of chronic disease Hemoglobin 10.4 On iron supplement. GERD On Protonix and famotidine Migraines On Topamax Tramadol as needed Hypothyroidism On Synthyroid Obesity Counseling DVT prophylaxis Heparin subcu Full code History of Present Illness Chief Complaint: Shortness of breath, weakness and right-sided chest pain Primary Care Provider: Markell Linton MD 73-year-old female with past medical history significant for dyslipidemia, COPD, asthma, history of multifocal pneumonia, chronic heart failure with preserved ejection fraction, aortic stenosis, paroxysmal atrial fibrillation, status post TAVR, obesity, GERD, CKD stage IV, macrocytic anemia, history of tobacco use, currently living with her sister comes because of ongoing cough bringing up phlegm and right-sided chest pain on and off for last 2 weeks. Patient states since last 2 weeks feeling short of breath and having cough. She walks with a walker. For last 2 weeks is mostly in the bed. Walking to the bathroom making her short of breath. Also having on and off right-sided chest pain. Having some headache and attributes it to her migraines. Has some runny nose. No sore throat. Appetite is okay. No difficulty swallowing. No nausea. No abdominal pain. Normal bowel and bladder movements. Currently resting comfortably and hemodynamically stable. Patient has history of MRSA pneumonia in July 2022 with bacteremia and treated for 6 weeks with IV antibiotics for presumed endocarditis as JAY could not be done. Again in June 2023 was admitted and was treated for pneumonia and E. coli UTI. Past medical history. As mentioned above Past surgical history. Bile tract surgery. Cholecystectomy. Colonoscopy. EGD. TAVR. Social history. Quit smoking 2018. Smoked 0.5 pack a day for 30 years. No alcohol use. No drug use. Family history. Father had diabetes. Mother had heart disorder. Brother has hypertension. Allergies Allergy/AdvReac Type Severity Reaction Status Date / Time dog dander Allergy Intermediate Sneezing Verified 10/11/23 11:38 azithromycin Allergy Rash Verified 10/11/23 11:38 Corticosteroids Allergy Rash Verified 10/11/23 11:38 (Glucocorticoids) egg Allergy SPECIFIC-DUCK Verified 10/11/23 11:38 EGG CAUSED FACIAL SWELLING gabapentin Allergy "went very Verified 10/11/23 11:38 loopy" nystatin Allergy Rash Verified 10/11/23 11:38 pollen extracts Allergy HAYFEVER Verified 10/11/23 11:38 methylprednisolone AdvReac Unknown Verified 10/11/23 11:38 [From Depo-Medrol] Home Medications Medication Instructions Recorded Confirmed Type ipratropium 0.5 mg-albuterol 3 mg 3 ml inhalation Q6H PRN Shortness 04/03/22 03/16/24 History (2.5 mg base)/3 mL nebulization Of Breath Or Wheezing soln albuterol sulfate 90 mcg/actuation 2 puff inhalation QID PRN 09/02/22 03/16/24 Rx aerosol inhaler (Ventolin HFA) Shortness Of Breath Or Wheezing #6.7 grams amiodarone 200 mg tablet 200 mg PO QAM #30 tabs 09/02/22 03/16/24 Rx ascorbic acid (vitamin C) 500 mg 250 mg (1/2 x 500 mg) PO DAILY@12 09/02/22 03/16/24 Rx tablet #30 tabs ferrous sulfate 325 mg (65 mg 325 mg PO DAILY@12 #30 tabs 09/02/22 03/16/24 Rx iron) tablet metoprolol succinate 25 mg capsule 25 mg PO QAM #30 ea 09/02/22 03/16/24 Rx sprinkle, ext. release 24 hr pantoprazole 40 mg tablet,delayed 40 mg PO BID #60 tabs 09/02/22 03/16/24 Rx release simvastatin 10 mg tablet 10 mg PO HS #30 tabs 09/02/22 03/16/24 Rx furosemide 20 mg tablet 40 mg PO QAM 07/16/23 03/16/24 History tramadol 50 mg tablet 50 mg PO BID PRN pain 07/16/23 03/16/24 History acetaminophen 500 mg tablet 1,000 mg PO TID 10/02/23 03/16/24 History aspirin 81 mg chewable tablet 81 mg PO QAM 10/02/23 03/16/24 History clopidogrel 75 mg tablet 75 mg PO QAM 10/02/23 03/16/24 History famotidine 10 mg tablet 10 mg PO QAM 10/02/23 03/16/24 History fluticasone propionate 110 1 inh inhalation QAM 10/02/23 03/16/24 History mcg/actuation HFA aerosol inhaler levothyroxine 50 mcg tablet 50 mcg PO QAM 10/02/23 03/16/24 History magnesium oxide 400 mg PO BID 10/02/23 03/16/24 History topiramate 50 mg tablet (Topamax) 25 - 50 mg PO UD 10/02/23 03/16/24 History triamcinolone acetonide 0.5 % 1 applic topical BID 03/16/24 03/16/24 History topical cream (Triderm) Past Med/Surg History Problem List (Updated 03/16/24 @ 06:19 by Jitendra Rome MD) SOB (shortness of breath) URI (upper respiratory infection) (Acute) USP (current) use of antithrombotics/antiplatelets (Acute) Headache (Acute) Status post heart valve replacement (Acute) Weakness (Acute) Leukocytosis Chronic diastolic CHF (congestive heart failure) PAULETTE (acute kidney injury) Sepsis Osteoarthritis of left knee Staphylococcus aureus pneumonia Morbid obesity Acute respiratory failure with hypercapnia Parainfluenza virus pneumonia S/P TAVR (transcatheter aortic valve replacement) Staphylococcus aureus bacteremia with sepsis Sepsis due to pneumonia Open wound of buttock Unable to care for self Ambulatory dysfunction (Acute) Failure of outpatient treatment (Acute) Obesity History of migraine Paroxysmal atrial fibrillation CKD (chronic kidney disease), stage III Pneumonia Candidiasis, intertriginous (Acute) Pedal edema (Acute) CHF (congestive heart failure) (Acute) Hypoxia (Acute) Encounter for pre-operative examination Atrial fibrillation Colonic polyp Esophageal candidiasis Peptic ulcer Atrial fibrillation with rapid ventricular response CHF (congestive heart failure) Social handicap Headache Tobacco abuse (Chronic) quit 3 months ago Abnormal CXR Anemia Hx of cholecystectomy (Chronic) Dyslipidemia (Chronic) Aortic stenosis (Chronic) COPD (chronic obstructive pulmonary disease) (Chronic) GERD (gastroesophageal reflux disease) (Chronic) Medical History Hx MRSA infection 07/2022, went to [facility] from custodial>transferred to [place] for 13 days 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 bean, [facility] Hx of aortic valve stenosis History of anemia no current issues Hx of acute respiratory failure 07/2023, hospitalized at [facility] w/pneumonia and UTI; per sister-pt cannot lay flat when sleeping Congestive heart failure COPD (chronic obstructive pulmonary disease) daily and prn inh; also has neb prn>not used often Kidney stones hx Osteoarthritis Stomach ulcer hx ~2009 Migraine SOB (shortness of breath) on exertion hx Cardiac murmur hx Surgical History Hx of cardiac catheterization 2019, preoperative for TAVR, [facility], no stents; f/u dr bean [facility] cardio. Hx of cholecystectomy S/P TAVR (transcatheter aortic valve replacement) 05/09/2019, [facility] [place]; f/u dr. bean [facility] History of esophagogastroduodenoscopy (EGD) History of colonoscopy History of cystoscopy Family History Father Family history of diabetes mellitus Social History Smoking Status: Former smoker Tobacco Type: Cigarettes Cigarettes Per Day: QUIT 2 MONTHS AGO; Second Hand Exposure: Yes (hx growing up); Do You Dip or Chew Tobacco: No; Hx Alcohol Use: No Hx Substance Use: No Preferred Language: Maldivian Communication Ability: Effective [employer] Supervisor Required: No Beliefs That Will Affect Care: None Current Living Situation: Family Current Living Situation 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 ENT- oropharynx clear Neck- supple, no JVD. Lungs- clear to auscultation no wheezing or crackles Heart- regular rate and rhythm; no murmur, no gallop. Abdomen- normal bowel sounds, soft, nontender, no distension Extremities- no pretibial edema, no erythema seen Neuro- alert, oriented PERRL, no facial palsy; no dysarthria; moves extremities Results & Data Results & Data Vital Signs (Past 12 Hours) Vital Signs Temp Pulse Pulse Resp BP BP Pulse Ox 03/16/24 05:22 71 22 102/50 L 97 03/16/24 05:00 73 20 105/50 L 90 03/16/24 03:12 71 20 90 03/16/24 03:00 73 20 109/50 L 92 03/16/24 02:23 81 03/16/24 02:19 36.6 C 83 18 100/57 L 89 L 03/16/24 02:03 03/16/24 02:03 77 23 100/57 L 91 O2 Del Method O2 Flow Rate 03/16/24 05:22 Nasal Cannula 1 03/16/24 05:00 Room Air 03/16/24 03:12 Room Air 03/16/24 03:00 Room Air 03/16/24 02:23 03/16/24 02:19 Room Air 03/16/24 02:03 Room Air 03/16/24 02:03 Room Air Diagnostic Findings Laboratory Results WBC 11.40 K/ul (4.8-10.8) H 03/16/24 02:27 RBC 3.30 M/uL (4.20-5.40) L 03/16/24 02:27 Hgb 10.4 g/dl (12.0-16.0) L 03/16/24 02:27 Hct 33.1 % (37.0-47.0) L 03/16/24 02:27 MCV 100.3 fL (80.0-100.0) H 03/16/24 02:27 MCH 31.5 pg (25.0-34.0) 03/16/24 02:27 MCHC 31.4 g/dL (32.0-36.0) L 03/16/24 02:27 RDW Std Deviation 53.6 fL (36.4-46.3) H 03/16/24 02:27 RDW Coeff of Moni 14.5 % (11.5-14.5) 03/16/24 02:27 Plt Count 299 K/uL (130-400) 03/16/24 02:27 MPV 10.4 fL (9.4-12.4) 03/16/24 02:27 Immature Gran % (Auto) 0.4 % 03/16/24 02:27 Neut % (Auto) 72.1 % 03/16/24 02:27 Lymph % (Auto) 13.2 % 03/16/24 02:27 [place] % (Auto) 8.9 % 03/16/24 02:27 Eos % (Auto) 5.0 % 03/16/24 02:27 Baso % (Auto) 0.4 % 03/16/24 02:27 Neut # (Auto) 8.22 K/uL (1.40-6.50) H 03/16/24 02:27 Lymph # (Auto) 1.50 K/uL (1.20-3.40) 03/16/24 02:27 [place]os # (Auto) 1.02 K/uL (0.11-0.59) H 03/16/24 02:27 Eos # (Auto) 0.57 K/uL (0.00-0.50) H 03/16/24 02:27 Baso # (Auto) 0.05 K/uL (0.00-0.20) 03/16/24 02:27 Immature Gran # (Auto) 0.04 K/uL (0.01-0.20) 03/16/24 02:27 Sodium 139 mmol/L (136-145) 03/16/24 02:27 Potassium 4.2 mmol/L (3.5-5.1) 03/16/24 02:27 Chloride 108 mmol/L (98-107) H 03/16/24 02:27 Carbon Dioxide 24 mmol/L (21-32) 03/16/24 02:27 Anion Gap 7 (3-11) 03/16/24 02:27 BUN 30 mg/dl (6-23) H 03/16/24 02:27 Creatinine 1.99 mg/dl (0.6-1.2) H 03/16/24 02:27 Est Cr Clr Drug Dosing 23.8 ml/min 03/16/24 02:27 eGFR 25.73 03/16/24 02:27 BUN/Creatinine Ratio 15.1 (10-20) 03/16/24 02:27 Glucose 108 mg/dl (70-99(Fasting)) H 03/16/24 02:27 Lactate 1.0 mmol/L (0.4-2.0) 03/16/24 05:46 Calcium 9.4 mg/dl (8.6-10.3) 03/16/24 02:27 Total Bilirubin 0.4 mg/dl (0.2-1.0) 03/16/24 02:27 AST 20 U/L (13-39) 03/16/24 02:27 ALT 10 U/L (7-52) 03/16/24 02:27 Alkaline Phosphatase 190 U/L (34-104) H 03/16/24 02:27 Troponin I High Sens 8.5 pg/ml (0-14) 03/16/24 02:27 B-Natriuretic Peptide 116 pg/ml (0-100) H 03/16/24 02:27 Total Protein 8.0 gm/dl (6.0-8.3) 03/16/24 02:27 Albumin 3.4 gm/dl (3.4-5.0) 03/16/24 02:27 Globulin 4.6 gm/dl (2.5-4.0) H 03/16/24 02:27 Albumin/Globulin Ratio 0.7 (0.9-2) L 03/16/24 02:27 Lipase 9 U/L (11-82) L 03/16/24 02:27 Procalcitonin 0.12 ng/ml (0-0.5) 03/16/24 02:27 Adenovirus (PCR) Not Detected (NotDetected) 03/16/24 03:23 B. pertussis DNA (PCR) Not Detected (NotDetected) 03/16/24 03:23 B.parapertussis DNA PCR Not Detected (NotDetected) 03/16/24 03:23 C. pneumoniae DNA (PCR) Not Detected (NotDetected) 03/16/24 03:23 Coronavirus OC43 (PCR) Not Detected (NotDetected) 03/16/24 03:23 Coronavirus HKU1 (PCR) Not Detected (NotDetected) 03/16/24 03:23 Coronavirus 229E (PCR) Not Detected (NotDetected) 03/16/24 03:23 SARS-CoV-2 (PCR) Not Detected (NotDetected) 03/16/24 03:23 Coronavirus NL63 (PCR) Not Detected (NotDetected) 03/16/24 03:23 Human Metapneumovir PCR Not Detected (NotDetected) 03/16/24 03:23 Influenza Type A (PCR) Not Detected (NotDetected) 03/16/24 03:23 Influenza Type B (PCR) Not Detected (NotDetected) 03/16/24 03:23 M. pneumoniae (PCR) Not Detected (NotDetected) 03/16/24 03:23 Parainfluenza 1 (PCR) Not Detected (NotDetected) 03/16/24 03:23 Parainfluenza 2 (PCR) Not Detected (NotDetected) 03/16/24 03:23 Parainfluenza 3 (PCR) Not Detected (NotDetected) 03/16/24 03:23 Parainfluenza 4 (PCR) Not Detected (NotDetected) 03/16/24 03:23 RSV (PCR) Not Detected (NotDetected) 03/16/24 03:23 Entero/Rhino (PCR) Not Detected (NotDetected) 03/16/24 03:23 Impressions Chest X-Ray 03/16/24 03:12 EXAM: XR chest 1V portable CLINICAL HISTORY: CHEST PAIN JMF TECHNIQUE: An X-ray image of the chest is obtained in AP projection. COMPARISON: Compared to the previous study dated 07/16/2023. FINDINGS: Pulmonary Parenchyma: Bilateral strands and patchy opacities are noted at both lung cobos more evident at the left lung suggesting INTERSTITIAL PULMONARY DISEASE Veiling of the left costophrenic recess may suggest pleural effusion. Prominent hilar shadow on both sides. Heart and Mediastinum: Heart size and shape are normal. No mediastinal widening or masses. No hilar or mediastinal lymphadenopathy. Bony Thorax: Spondylo-degenerative changes. Bony thorax appears intact without fractures or deformities. Soft Tissues: Soft tissues overlying the chest wall are unremarkable. IMPRESSION: 1. Bilateral strands and patchy opacities are noted at both lung cobos more evident at the left lung suggesting interstitial pulmonary disease. Progressive curse. 2. Veiling of the left costophrenic recess mat suggests pleural effusion. Stationary. 3. Prominent hilar shadow on both sides denoting congestive changes.Stationary 4. HRCT is recommended for further evaluation if clinically indicated and inflammatory changes or pulmonry oedema should be ruled out. Electronically signed by Sejal Hoskins 03-16-2024 05:09 AM ECG Additional Comments: ECG normal sinus rhythm rate of 84. Nonspecific ST and T wave abnormality. No significant change was found. Code Status & VTE Plan VTE Prophylaxis Plan VTE Prophylaxis will be ordered: Yes
--- NOTE | 2024-03-16 07:22 | Electrocardiogram Report ---
Test Reason : Blood Pressure : */* mmHG Vent. Rate : 84 BPM Atrial Rate : 84 BPM P-R Int : 156 ms QRS Dur : 86 ms QT Int : 354 ms P-R-T Axes : 67 41 85 degrees QTcB Int : 418 ms Normal sinus rhythm Nonspecific ST and T wave abnormality Abnormal ECG When compared with ECG of 16-Jul-2023 14:53, No significant change was found Confirmed by Cy Moreau ([id number]) on 03/16/2024 7:22:01 AM Referred By: REFERRED SELF Confirmed By: Cy Moreau
[2024-03-16] MEDS ORDERED: ACETAMINOPHEN 325 MG TAB PO PRN (07:56)
[2024-03-16] MEDS ORDERED: ALBUTEROL HFA 8 GM INHALER INH PRN (07:56)
[2024-03-16] MEDS ORDERED: POLYETHYLENE (MIRALAX) 17 GM PACK PO PRN (07:56)
[2024-03-16] MEDS ORDERED: NITROGLYCERIN SL 0.4 MG/TAB TAB SL PRN (07:56)
[2024-03-16] MEDS: ALBUT/IPRATROP 3MG/0.5MG NEB 3 ML VIAL NEB SCH (08:41)
[2024-03-16] MEDS: METOPROLOL SUCC 25MG EXT REL TAB PO SCH (09:20)
[2024-03-16] MEDS: PANTOprazole 40 MG TAB PO SCH (09:21)
[2024-03-16] MEDS: FUROSEMIDE 40 MG TAB PO SCH (09:21)
[2024-03-16] MEDS: ASPIRIN 81 MG CHEW PO SCH (09:21)
[2024-03-16] MEDS: TRIAMCINOLONE ACET 0.5% CR 15 GM TUBE TOP SCH (09:22)
[2024-03-16] MEDS: AMIODARONE 200 MG TAB PO SCH (09:22)
[2024-03-16] MEDS: CLOPIDOGREL BISULFATE 75 MG TAB PO SCH (09:22)
[2024-03-16] MEDS: MAGNESIUM OXIDE 400 MG TAB PO SCH (09:22)
[2024-03-16] MEDS: FAMOTIDINE 10 MG TABLET PO SCH (09:22)
[2024-03-16] MEDS: LEVOTHYROXINE SODIUM 50 MCG TABLET PO SCH (09:22)
[2024-03-16] MEDS: ACETAMINOPHEN 500 MG TAB PO SCH (09:25)
[2024-03-16] MEDS: TOPIRAMATE 50 MG TAB PO SCH (09:29)
--- NOTE | 2024-03-16 09:59 | CT Scan Report ---
CT OF THE CHEST WITHOUT IV CONTRAST CLINICAL HISTORY: Shortness of breath, cough and infiltrates. COMPARISON STUDY: Chest CT July 16, 2023. Chest radiograph performed earlier today. CT DOSE: 842.88 mGy.cm TECHNIQUE: Axial images of the chest were obtained without IV contrast. Images were reviewed in the axial, sagittal, and coronal planes. IV contrast was not administered for this examination. Automat ed exposure control was utilized for the study. A dose lowering technique was utilized adhering to t he principles of ALARA. FINDINGS: The heart is moderately enlarged. There is no pericardial effusion. A prosthetic aortic va lve is noted. Note is made of dilatation of the central pulmonary arteries. The left pulmonary artery measures 3.6 cm in caliber. Mildly enlarged mediastinal lymph nodes are similar to prior CT. A right paratracheal lymph node on image 68 of 213 measures 1.8 x 1.5 cm. There is no pneumothorax or pleura l effusion. The lungs are suboptimally assessed due to respiratory motion. Extensive alveolar opaciti es throughout the lungs are noted, including groundglass opacities and small foci of consolidation. T here is no cavitation. No central obstructing mass is present. There is no lobar consolidation. The g allbladder is surgically absent. IMPRESSION: 1. Extensive alveolar opacities throughout the lungs, including groundglass opacities and foci of dev eloping consolidation. The findings favor multifocal pneumonia. Pulmonary edema is considered less li amanda. Follow-up chest CT in 3 months to ensure resolution is recommended. 2. Cardiomegaly. Dilatation of the central pulmonary arteries suggestive of pulmonary hypertension. 3. No pleural effusion. No pneumothorax. 4. Mildly enlarged mediastinal lymph nodes, similar to prior exam. These can be assessed on follow-up CT to ensure stability. ACT 112: Negative or not required by law. Electronically signed by: Shawn Juarez M.D. 03/16/2024 9:58 AM
[2024-03-16] MEDS: DOXYCYCLINE HYCLATE 100 MG in DEXTROSE 5% MINI-B 100 ML IV SCH (10:07)
[2024-03-16] MEDS: HEPARIN SOD 5,000 UNIT/0.5 ML VIAL SQ SCH (10:13)
[2024-03-16] MEDS: traMADol HCL 50 MG TABLET PO PRN (11:16)
[2024-03-16] MEDS ORDERED: Nursing to Pharmacy Communication SCH (11:30)
[2024-03-16] MEDS: PIPERACILLIN/TAZOBACTAM 4.5 GM/100 ML BAG IV SCH (12:14)
[2024-03-16] MEDS: FERROUS SULFATE 325 MG TAB PO SCH (12:15)
[2024-03-16] MEDS: ASCORBIC ACID 500 MG TAB PO SCH (12:15)
--- NOTE | 2024-03-16 12:37 | Hospitalist Progress Note ---
Date of Service March 16, 2024 Assessment & Plan (1) SOB (shortness of breath): Plan: 73-year-old female with past medical history significant for dyslipidemia, COPD, asthma, history of multifocal pneumonia, chronic heart failure with preserved ejection fraction, aortic stenosis, paroxysmal atrial fibrillation, status post TAVR, obesity, GERD, CKD stage IV, macrocytic anemia, history of tobacco use, currently living with her sister comes because of ongoing cough bringing up phlegm and right-sided chest pain on and off for last 2 weeks. Patient states since last 2 weeks feeling short of breath and having cough. Acute hypoxic respiratory failure Multifocal pneumonia Patient presented with low oxygen saturation, tachypnea, cough and shortness of breath. Prior history of MRSA pneumonia and bacteremia in 2022 Chest x-ray concerning for pneumonia CT chest shows multifocal pneumonia MRSA nares negative Continue on IV Zosyn and doxycycline; plan to treat for 7 days Airway clearance therapy with hypertonic saline, DuoNeb, flutter valve and incentive spirometry Follow-up on sputum culture History of COPD History of asthma History of tobacco abuse quit 2018. Smoked half pack a day for 30 years Continue home inhalers Nebs [id number] and as needed CHF with preserved ejection fraction, compensated Aortic stenosis status post TAVR Continue home dose of lasix Monitor for volume overload Paroxysmal atrial fibrillation On metoprolol and amiodarone Not anticoagulated secondary to GI bleed Nonobstructive CAD On Plavix, aspirin ,statin and beta-nikhil CKD stage IV Presented with creatinine 1.9 around baseline avoid nephrotoxic agents Anemia Anemia of chronic disease Hemoglobin 10.4 On iron supplement. GERD On Protonix and famotidine, continue Migraines On Topamax Tramadol as needed Hypothyroidism On Synthyroid, continue Obesity Counseling as outpatient DVT prophylaxis Heparin subcu Full code Plan of care discussed with patient's sister at bedside. Please note the above document was generated using voice recognition software. It may contain grammatical, syntax or spelling errors. Any formal questions or concerns about the content, text or information contained within the body of this dictation should be directly addressed to the provider for clarification Admission and Anticipated Discharge Date Admission Date: March 16, 2024 Subjective Patient seen and examined at bedside. She reports cough with yellowish sputum She denies fever or chills. She reports that symptom has been going on for past couple of weeks Vital signs are stable Review of Systems Review of Systems: All systems reviewed & are unremarkable except as noted in Subjective Physical Exam Physical Exam: General- Not in distress Head- atraumatic Eyes- PERRL. ENT- oropharynx clear Neck- supple, no JVD. Lungs- Bilateral crackles heard at bases Heart- regular rate and rhythm; no murmur, no gallop. Abdomen- normal bowel sounds, soft, nontender, no distension Extremities- no pretibial edema, no erythema seen Neuro- alert, oriented PERRL, no facial palsy; no dysarthria; moves extremities Results & Data Results & Data Vital Signs (Past 12 Hours) Vital Signs Temp Pulse Pulse Resp BP BP Pulse Ox 03/16/24 11:25 74 18 91 03/16/24 10:42 36.6 C 77 16 112/72 94 03/16/24 08:41 67 18 97 03/16/24 08:00 03/16/24 07:57 36.6 C 76 19 127/74 94 03/16/24 07:25 68 19 96 03/16/24 06:41 75 18 115/62 95 03/16/24 06:16 68 03/16/24 05:22 71 22 102/50 L 97 03/16/24 05:00 73 20 105/50 L 90 03/16/24 03:12 71 20 90 03/16/24 03:00 73 20 109/50 L 92 03/16/24 02:23 81 03/16/24 02:19 36.6 C 83 18 100/57 L 89 L 03/16/24 02:03 03/16/24 02:03 77 23 100/57 L 91 O2 Del Method O2 Flow Rate 03/16/24 11:25 Nasal Cannula 2 03/16/24 10:42 Nasal Cannula 2 03/16/24 08:41 Nasal Cannula 2 03/16/24 08:00 Nasal Cannula 1 03/16/24 07:57 Nasal Cannula 2 03/16/24 07:25 Nasal Cannula 1 03/16/24 06:41 Nasal Cannula 1 03/16/24 06:16 03/16/24 05:22 Nasal Cannula 1 03/16/24 05:00 Room Air 03/16/24 03:12 Room Air 03/16/24 03:00 Room Air 03/16/24 02:23 03/16/24 02:19 Room Air 03/16/24 02:03 Room Air 03/16/24 02:03 Room Air
[2024-03-16] MEDS: SODIUM CHLOR 7% 4 ML NEB NEB SCH (19:09)
--- OUTSIDE RECORDS SUMMARY | 2024-03-16 19:35 | External Medical Summary | Summary of Care ---
Author Name Unknown Organization [facility] Address [address] [place] [address] Phone [phone] Care Team Providers Care Plant Operations Worker Name Role Phone AugustEleuterio MD Primary Care Provider [phone] Reason for Visit * Reason Onset Date Comments Medication Refill 03/01/2024 Encounter Details Date Type Department Care Team (Late st Contact Info) Description 03/01/2024 Refill [facility] [address] [place] [address] AugustEleuterio MD [address] [place] [address] Bilateral primary osteoarthritis of knee Allergies Active Allergy Reactions Criticality Noted Date Comments Azithromycin Medium 06/19/2023 Facial redness, swelling, itching, watery eyes Methylprednisolone Sodium Succ 12/06 Dog Dander Low 03/20/2019 Other reaction(s): Sneezing Food (See Comments) 02/23/2018 Duck eggs Swelling Pollen 08/25/2015 Nystatin 01/17/2019 Allergic reaction Pollen Extract 03/20/2019 Other reaction(s): HAYFEVER documented as of this encounter (statuses as of 03/03/2024) Medications aspirin 81 MG chewable tablet Take 1 Tab by mouth daily. with food. 100 Tab 5 06/25/19 20 Active vitamin c (ASCORBIC ACID) 250 MG Tablet DAILY@12 30 Tab 5 06/25/19 20 Active Acetaminophen 325 MG Oral Tablet Take 500 mg by mouth every 6 hours as needed for Pain. Active Pulse Oximeter Deluxe Use as directed . 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 90 Tablet 3 03/21/20 23 Active Ketoconazole 2 % External Cream APPLY TOPICALLY TO AFFECTED AREA 2 TIMES A DAY FOR 14 DAYS. APPLY TO AFFECTED AREA AFTER DRYING SKIN 60 g 2 06/08/19 24 Active Doxycycline Hyclate 100 MG Oral Capsule Take 1 Capsule by mouth in the morning and 1 Capsule before bedtime. 07/19/19 24 Active Ipratropium-Albute rol 0.5-2.5 (3) MG/3ML Inhalation Solution (Duoneb)Indication s:COPD, group C, by GOLD 2017 classification ([facility]) INHALE 1 VIAL EVERY 4 TO 6 HOURS NEEDED FOR WHEEZING 360 mL 2 07/24/19 24 Active Probiotic (Lactobacillus) Oral CapsuleIndications :Loose stools Take 1 Capsule by mouth in the morning. 90 Capsule 3 07/24/19 24 Active Metoprolol Succinate ER 25 MG Oral Tablet Extended Release 24 Hour (toPROL XL) TAKE 1 TABLET BY MOUTH EVERY DAY IN THE MORNING 90 Tablet 3 09/05/19 24 Active Magnesium Oxide -Mg Supplement 400 (240 Mg) MG Oral Tablet (Mag-Ox)Indication s:Hypomagnesemia TAKE 1 TABLET BY MOUTH IN THE MORNING AND BEFORE BEDTIME 180 Tablet 1 09/06/19 24 Active Furosemide 20 MG Oral Tablet (Lasix)Indications :Acute congestive heart failure, unspecified heart failure type ([facility]),PAULETTE (acute kidney injury) ([facility]) TAKE 2 TABLETS BY MOUTH EVERY MORNING 180 Tablet 1 09/19/19 24 Active Heartburn Relief 10 MG Oral Tablet (Famotidine)Indica tions:Gastroesopha geal reflux disease without esophagitis TAKE 1 TABLET BY MOUTH EVERY DAY IN THE MORNING 90 Tablet 1 10/03/19 24 Active Albuterol Sulfate HFA 108 (90 Base) MCG/ACT Inhalation Aerosol SolutionIndication s:COPD, group C, by GOLD 2017 classification ([facility]),Asthma with irreversible airway obstruction, unspecified asthma severity, uncomplicated ([facility]) TAKE 2 PUFFS BY MOUTH EVERY 6 HOURS NEEDED FOR WHEEZE 54 g 1 10/16/19 24 Active Fluticasone Furoate 100 MCG/ACT Inhalation Aerosol Powder Breath Activated (ARNUITY ellipta) Inhale 1 Puff by mouth in the morning. 90 Each 3 11/30/19 24 Active Triamcinolone Acetonide 0.5 % External Cream (Aristocort)Indica tions:Senile purpura ([facility]) Apply topically to affected area 2 times a day. To affected area. 60 g 1 12/19/19 24 Active Simvastatin 10 MG Oral Tablet (Zocor) TAKE 1 TABLET BY MOUTH EVERYDAY AT BEDTIME 90 Tablet 12/26/19 24 Active Pantoprazole Sodium 40 MG Oral Tablet Delayed Release (Protonix)Indicati ons:Esophageal reflux TAKE 1 TABLET BY MOUTH IN THE MORNING AND BEFORE BEDTIME 180 Tablet 3 12/26/19 24 Active Levothyroxine Sodium 50 MCG Oral Tablet (Levoxyl)Indicatio ns:Hypothyroidism, unspecified type TAKE 1 TABLET BY MOUTH IN THE MORNING. ON AN EMPTY STOMACH.. 90 Tablet 01/03/20 24 Active Ferrous Sulfate 325 (65 Fe) MG Oral Tablet (Feosol)Indication s:Macrocytic anemia TAKE 1 TABLET BY MOUTH EVERY DAY AT 12 90 Tablet 01/03/20 24 Active Topiramate 50 MG Oral Tablet (topAMAX)Indicatio ns:Chronic daily headache One tab morning, one tab mid day and half tab at bedtime for migraine prevention 135 Tablet 1 02/16/20 24 Active traMADol HCl 50 MG Oral Tablet (Ultram)Indication s:Bilateral primary osteoarthritis of knee Take 1 Tablet by mouth every 12 hours as needed for Pain, Moderate. 60 Tablet 03/03/20 24 Active traMADol HCl 50 MG Oral Tablet (Ultram)Indication s:Bilateral primary osteoarthritis of knee Take 1 Tablet by mouth every 12 hours as needed for Pain, Moderate. 60 Tablet 02/02/20 24 024 Discontin ued(Refil l) documented as of this encounter (statuses as of 03/03/2024) Active Problems Problem Noted Date Diagnosed Date Chronic kidney disease, stage 4 (severe) 024 Overview: Per CKD protocol Chronic heart failure with preserved ejection fr action 06/19/2023 PAULETTE (acute kidney injury) 06/06/2022 Class 3 severe obesity with serious comorbidity [...] as of this encounter (statuses as of 03/03/2024) Resolved Problems Problem Noted Date Diagnosed Date Resolved Date Chronic kidney disease, stage 3b 01/31/2022 09/06/2023 Overview: Per CKD protocol Chronic kidney disease, stage 3a 11/02/2020 02/03/2022 [...] as of this encounter (statuses as of 03/03/2024) Immunizations Name Administration Dates Next Due Pneumococcal Conjugate Vacc, 13 Valent (Prevnar) 11/25/2016 Pneumococcal Polysaccharide PPV23 (Pneumovax) Seasonal Influenza Vac., MDV, IM, 0.5 mL (Fluzon e) 03/12/2013 TDAP (age 10 and older)(Boostrix) 07/02/2013 documented as of this encounter Social History Tobacco Use Types Packs/Day Years Used Date Smoking Tobacco: Former Cigarettes 0.5 30 0 06/18/1988 - 06/18/2018 Smokeless Tobacco: Never Alcohol Use Standard Drinks/Week Comments No 0 (1 standard drink = 0.6 oz pur e alcohol) PHQ-2 Answer Date Recorded PHQ-2 Score 0 12/08/2019 Utilities Answer Date Recorded Do you have trouble paying y our heating, water, or electric bill? (Adult - for ages 18 years and over) Not on file 10/10/2023 Is your family able to pay t he heat, water, or electric bill? (Household - for ages 0-17 years) Not on file 10/10/2023 Does your family have access to good internet? (Household - for ages 0-17 years) Not on file 10/10/2023 Social Connections Answer Date Recorded How often do you feel lonely or isolated from those around you? (Adult - for ages 18 years and over) Not on file 10/10/2023 Comments No Sex and Gender Information Value Date Recorded Sex Assigned at Not on file Legal Sex Female 6:01 AM EST Gender Identity Not on file Sexual Orientation Straight 11/05/2020 11 :48 AM EDT Occupation Industry Job Start Date Job End Date Not on file Not on file Not on file Not on file documented as of this encounter Functional Status * Are you deaf or do you have serious difficulty hearing? Answer Date of Assessment Author No 06/05/2019 2:59 PM Tricia Rae RN * Are you blind or do you have serious difficulty seeing, even when wearing glasses? Answer Date of Assessment Author No 06/05/2019 2:59 PM Tricia Rae RN * Do you have serious difficulty walking or climbing stairs? (5 years old or older) Answer Date of Assessment Author Yes 06/05/2019 2:59 PM Tricia Rae RN * Do you have difficulty dressing or bathing? (5 years old or older) Answer Date of Assessment Author No 06/05/2019 2:59 PM Tricia Rae RN * Because of a physical, mental, or emotional condition, do you have difficulty doing errands alone such as visiting a doctors office or shopping? (15 years old or older) Answer Date of Assessment Author Yes 06/05/2019 2:59 PM Tricia Rae RN documented as of this encounter Mental Status * Because of a physical, mental, or emotional condition, do you have serious difficulty concentrating, remembering, or making decisions? (5 years old or older) Answer Entry Date Author No 06/05/2019 2:59 PM Tricia Rae RN documented in this encounter Miscellaneous Notes * Telephone Encounter - Eleuterio Lopez MD - 03/03/2024 8:53 PM ESTSigned Prescriptions: Disp Refills traMADol HCl 50 MG Oral Tablet (Ultram) 60 Tab*0 Sig: Take 1 Tablet by mouth every 12 hours as needed for Pain, Moderate.Authorizing Provider: ELEUTERIO LOPEZ------- * Telephone Encounter - Josselyn Reis [facility] - 03/02/2024 7:36 PM ESTPending Prescriptions: Disp Refills traMADol HCl 50 MG Oral Tablet (Ultram) 60 Tab*0 Sig: Take 1 Tablet by mouth every 12 hours as needed for Pain, Moderate. * Telephone Encounter - Josselyn Reis [facility] - 03/02/2024 7:36 PM EST I have reviewed the patients controlled substance dispensing history in the Prescription Drug Monitoring Program in compliance with the [facility] regulations before prescribing a controlled substance. PDMP checked on 03/02/2024. Pending Prescriptions: Disp Refills traMADol HCl 50 MG Oral Tablet (Ultram) 60 Tab*0 Sig: Take 1 Tablet by mouth every 12 hours as needed for Pain, Moderate. Last Visit: 02/07/2024 (in office), 04/21/2022 (telemedicine) Next Visit: Visit date not found Date medication was last filled: 02/02/24 Date medication is due for refill: 03/02/24 Pharmacy: [id number] Is this request for a controlled substance? Yes and Urine Drug Screen Not completed Toxicology results: No results found. However, due to the size of the patient record, not all encounters were searched.Please check Results Review for a complete set of results. Please approve if appropriate. Josselyn Moore [facility] Clinical Pharmacist 03/02/2024, 7:36 PM * Telephone Encounter - Melida Alcantara CPhT - 03/01/2024 8:56 AM EST Did you pend patient's preferred pharmacy and medication before forwarding?yes Pharmacy: [id number] [address] [place] [address] Pending Prescriptions: Disp Refills traMADol HCl 50 MG Oral Tablet (Ultram) 60 Tab*0 Sig: Take 1 Tablet by mouth every 12 hours as needed for Pain, Moderate. Last Visit: 02/07/2024 (in office), 04/21/2022 (telemedicine) Next Visit: Visit date not found If no future appointments scheduled, and last appointment is greater than a year ago, please schedule patient for a follow-up appointment Last date the medication was ordered: 02/02/2024 Is this request for a controlled substance?Yes, What was the last refill date 02/02/2024 w/ quantity 60 and dosage 1 every 12 hours and Urine Drug Screen Not completed Urine Drug Screen:No results found. However, due to the size of the patient record, not all encounters were searched. Please check Results Review for a complete set of results. Patient Phone Numbers Labs: Lab Results Component Value Date/Time CREAT 2.1 (H) 02/07/2024 08:48 AM CREAT 1.51 (A) 09/13/2022 12:00 AM CREAT 1.0 06/19/2019 06:10 AM POTASSIUM 4.5 02/07/2024 08:48 AM POTASSIUM 3.5 09/13/2022 12:00 AM POTASSIUM 4.5 06/19/2019 06:10 AM TSH 6.46 (H) 02/07/2024 08:48 AM TSH 6.01 (H) 05/09/2019 03:05 PM LDL 79 02/07/2024 08:48 AM LDL 86 11/25/2016 10:20 AM ALT 13 02/07/2024 08:48 AM ALT 12 06/05/2019 03:45 PM HGBA1C 5.3 02/07/2024 08:48 AM documented in this encounter Plan of Treatment Upcoming Encounters Date Type Department Care Team (Late st Contact Info) Description 08/09/2024 9:00 AM EDT Office Visit Nephrology, Erik Shah [address] [place] [address] Chago Todd MD [address] [place] [address] 08/21/2024 10:40 AM EDT Office Visit [facility] [address] [id number] AugustEleuterio MD [address] [place] [address] Health Maintenance Due Date Last Done Comments Alpha-1 Antitrypsin 1966 Nephrology Referral 1966 PTH 1966 Zoster Vaccines (1 of 2) 1998 Adult Wellness Visit 2014 Pneumococcal Vaccine: 65+ Years (3 of 3 - PPSV23 or PCV20) 07/02/2018 11/25/2016, 07/02/2013 *ADVANCE DIRECTIVE NOT ON FILE 10/06/2018 Depression Screening 12/07/2020 12/08/2019 DXA Scan 06/06/2021 06/06/2014 DTap/Tdap Vaccines (2 - Td or Tdap) 07/03/2023 07/02/2013 COVID-19 Vaccine ( - season) 2023 Influenza Vaccine (FLU shot) (#1) 2023 03/12/2013 GFR 08/07/2024 02/07/2024, 05/0 11/2023, 03/08/2023, Additional history exists Phosphate 08/29/2024 08/30/2023, 11/17/2020 Albumin/Creatinine Ratio 09/05/2024 09/06/2023, 12/24 Hgb 02/06/2025 02/07/2024, 02/22, 09/13/2022, Additional history exists O2 ASSESSMENT COMPLETED IN PAST YEAR FOR COPD 02/06/2025 02/07/2024 TSH 02/06/2025 02/07/2024, 02/22, 10/28/2020, Additional history exists Colonoscopy Discontinued 07/18/2018 Colorectal Cancer Screening Discontinued Cologuard Discontinued Fecal Occult Blood Test Discontinued HPV (Gardasil) Vaccine Aged Out No lo nger eligible based on patient's age to complete this topic Hepatitis B Vaccine Aged Out No longe r eligible based on patient's age to complete this topic MENINGOCOCCAL (MENACTRA/MENVEO) Aged Out No longer eligible based on patient's age to complete this topic Sigmoidoscopy Discontinued documented as of this encounter Medical Devices Not on filedocumented as of this encounter Visit Diagnoses Diagnosis Bilateral primary osteoarthritis of knee documented in this encounter Advance Directives Documents on File Type Date Recorded Patient Visitor Services Assistant Expl anation Power of Encoding Machine Operator 04/06/2023 POWER OF A TTORNEY * Full Code (Latest Code Status on File) Date Activated Date Inactivated Comments 06/05/2019 4:45 PM 06/14/2019 2:45 PM This order r eflects the patients wishes and were consensually agreed upon. Question Answer Comments Discussion of Advance Directives occurred with: Patient * Full Code Date Activated Date Inactivated Comments 05/09/2019 3:04 PM 05/21/2019 12:56 PM This order reflects the patients wishes and were consensually agreed upon. Care Teams Plant Operations Worker Relationship Specialty Start Date End Date August, Eleuterio Heller MD [address] [place] [address] PCP - General Family Medicine 03/30/23 documented as of this encounter
--- OUTSIDE RECORDS SUMMARY | 2024-03-16 19:35 | External Medical Summary | Summary of Care ---
Author Name Unknown Organization [facility] Address [address] [place] [address] Phone [phone] Care Team Providers Care Stone Mason Name Role Phone AugustMarkell MD Primary Care Provider [phone] Reason for Visit * Reason Comments eRx-Medication Refill Encounter Details Date Type Department Care Team (Late st Contact Info) Description 03/14/2024 Refill [facility] [address] [place] [address] AugustMarkell MD [address] [place] [address] COPD, group C, by GOLD 2017 classification ([facility]); Asthma with irreversible airway obstruction, unspecified asthma severity, uncomplicated ([facility]) Allergies Active Allergy Reactions Criticality Noted Date Comments Azithromycin Medium 06/19/2023 Facial redness, swelling, itching, watery eyes Methylprednisolone Sodium Succ 12/06 Dog Dander Low 03/20/2019 Other reaction(s): Sneezing Food (See Comments) 02/23/2018 Duck eggs Swelling Pollen 08/25/2015 Nystatin 01/17/2019 Allergic reaction Pollen Extract 03/20/2019 Other reaction(s): HAYFEVER documented as of this encounter (statuses as of 03/15/2024) Medications aspirin 81 MG chewable tablet Take 1 Tab by mouth daily. with food. 100 Tab 5 020 Active vitamin c (ASCORBIC ACID) 250 MG Tablet DAILY@12 30 Tab 5 020 Active Acetaminophen 325 MG Oral Tablet Take 500 mg by mouth every 6 hours as needed for Pain. Active Pulse Oximeter Deluxe Use as directed . 1 Each 1 022 Active Nebulizer/Tubing/ Mouthpiece KitIndications:CO PD, group C, by GOLD 2017 classification ([facility]) Use to nebulize medicaitons 1 Kit 1 023 Active Clopidogrel Bisulfate 75 MG Oral Tablet (pLAVix)Indicatio ns:Congestive heart failure due to valvular disease ([facility]) TAKE 1 TABLET BY MOUTH EVERY DAY IN THE MORNING 90 Tablet 3 023 Active Amiodarone HCl 200 MG Oral Tablet (Cordarone)Indica tions:Paroxysmal atrial fibrillation ([facility]) Take 1 Tablet by mouth in the morning. 90 Tablet 3 023 Active Ketoconazole 2 % External Cream APPLY TOPICALLY TO AFFECTED AREA 2 TIMES A DAY FOR 14 DAYS. APPLY TO AFFECTED AREA AFTER DRYING SKIN 60 g 2 024 Active Doxycycline Hyclate 100 MG Oral Capsule Take 1 Capsule by mouth in the morning and 1 Capsule before bedtime. 024 Active Ipratropium-Albut valentin 0.5-2.5 (3) MG/3ML Inhalation Solution (Duoneb)Indicatio ns:COPD, group C, by GOLD 2017 classification ([facility]) INHALE 1 VIAL EVERY 4 TO 6 HOURS NEEDED FOR WHEEZING 360 mL 2 024 Active Probiotic (Lactobacillus) Oral CapsuleIndication s:Loose stools Take 1 Capsule by mouth in the morning. 90 Capsule 3 024 Active Metoprolol Succinate ER 25 MG Oral Tablet Extended Release 24 Hour (toPROL XL) TAKE 1 TABLET BY MOUTH EVERY DAY IN THE MORNING 90 Tablet 3 024 Active Magnesium Oxide -Mg Supplement 400 (240 Mg) MG Oral Tablet (Mag-Ox)Indicatio ns:Hypomagnesemia TAKE 1 TABLET BY MOUTH IN THE MORNING AND BEFORE BEDTIME 180 Tablet 1 024 Active Furosemide 20 MG Oral Tablet (Lasix)Indication s:Acute congestive heart failure, unspecified heart failure type ([facility]),PAULETTE (acute kidney injury) ([facility]) TAKE 2 TABLETS BY MOUTH EVERY MORNING 180 Tablet 1 024 Active Heartburn Relief 10 MG Oral Tablet (Famotidine)Indic ations:Gastroesop hageal reflux disease without esophagitis TAKE 1 TABLET BY MOUTH EVERY DAY IN THE MORNING 90 Tablet 1 024 Active Fluticasone Furoate 100 MCG/ACT Inhalation Aerosol Powder Breath Activated (ARNUITY ellipta) Inhale 1 Puff by mouth in the morning. 90 Each 3 024 Active Triamcinolone Acetonide 0.5 % External Cream (Aristocort)Indic ations:Senile purpura ([facility]) Apply topically to affected area 2 times a day. To affected area. 60 g 1 024 Active Simvastatin 10 MG Oral Tablet (Zocor) TAKE 1 TABLET BY MOUTH EVERYDAY AT BEDTIME 90 Tablet 024 Active Pantoprazole Sodium 40 MG Oral Tablet Delayed Release (Protonix)Indicat ions:Esophageal reflux TAKE 1 TABLET BY MOUTH IN THE MORNING AND BEFORE BEDTIME 180 Tablet 3 024 Active Levothyroxine Sodium 50 MCG Oral Tablet (Levoxyl)Indicati ons:Hypothyroidis m, unspecified type TAKE 1 TABLET BY MOUTH IN THE MORNING. ON AN EMPTY STOMACH.. 90 Tablet 024 Active Ferrous Sulfate 325 (65 Fe) MG Oral Tablet (Feosol)Indicatio ns:Macrocytic anemia TAKE 1 TABLET BY MOUTH EVERY DAY AT 12 90 Tablet 024 Active Topiramate 50 MG Oral Tablet (topAMAX)Indicati ons:Chronic daily headache One tab morning, one tab mid day and half tab at bedtime for migraine prevention 135 Tablet 1 024 Active traMADol HCl 50 MG Oral Tablet (Ultram)Indicatio ns:Bilateral primary osteoarthritis of knee Take 1 Tablet by mouth every 12 hours as needed for Pain, Moderate. 60 Tablet 024 Active Albuterol Sulfate HFA 108 (90 Base) MCG/ACT Inhalation Aerosol SolutionIndicatio ns:COPD, group C, by GOLD 2017 classification ([facility]),Asthma with irreversible airway obstruction, unspecified asthma severity, uncomplicated ([facility]) INHALE 2 PUFFS BY MOUTH EVERY 6 HOURS NEEDED FOR WHEEZE 54 g 1 024 Active Albuterol Sulfate HFA 108 (90 Base) MCG/ACT Inhalation Aerosol SolutionIndicatio ns:COPD, group C, by GOLD 2017 classification ([facility]),Asthma with irreversible airway obstruction, unspecified asthma severity, uncomplicated ([facility]) TAKE 2 PUFFS BY MOUTH EVERY 6 HOURS NEEDED FOR WHEEZE 54 g 1 024 2023 Discontinued documented as of this encounter (statuses as of 03/15/2024) Active Problems Problem Noted Date Diagnosed Date [...] as of this encounter (statuses as of 03/15/2024) Resolved Problems Problem Noted Date Diagnosed Date [...] as of this encounter (statuses as of 03/15/2024) Immunizations Name Administration Dates Next Due Pneumococcal [...] of Assessment Author No 06/05/2019 2:59 PM rTicia Rae RN * Because of a physical, [...] Notes * Telephone Encounter - Mehnaz Baker, [facility] - 03/15/2024 6:30 AM ESTSigned Prescriptions: Disp Refills Albuterol Sulfate HFA 108 (90 Base) MCG/AC*54 g 1 Sig: INHALE 2 PUFFS BY MOUTH EVERY 6 HOURS NEEDED FOR WHEEZEAuthorizing Provider: MARKELL LOPEZ User:MEHNAZ BAKER documented in this encounter Plan of Treatment Upcoming Encounters Date Type Department Care Team (Late st Contact Info) Description 08/09/2024 9:00 AM EDT Office Visit Nephrology, Erik Shah [address], [place] [address] Chago Todd MD [address], [place] [address] 08/21/2024 10:40 AM EDT Office Visit Family [facility] [address] [place] [address] August, Markell Heller MD [address], [place] [id number] Health Maintenance Due Date Last Done Comments [...] Td or Tdap) 07/03/2023 07/02/2013 COVID-19 Vaccine (1 - season) 2023 Influenza Vaccine (FLU shot) (#1) 2023 03/12/2013 GFR 08/07/2024 02/07/2024, 05/0 11/2023, 03/08/2023, Additional history exists Phosphate 08/29/2024 08/30/2023, 11/17/2020 Albumin/Creatinine Ratio 09/05/2024 09/06/2023, 09/2 06/2021 Hgb 02/06/2025 02/07/2024, 02/22, 09/13/2022, Additional history [...] Documents on File Type Date Recorded Patient Highway Painter Helper Expl anation Power of Trashman 04/06/2023 POWER OF A TTORNEY * Full [...] and were consensually agreed upon. Care Teams Stone Mason Relationship Specialty Start Date End Date August, Markell Heller MD [address] [facility] [place] [address] PCP - General Family Medicine 03/30/23 documented as of this encounter
--- OUTSIDE RECORDS SUMMARY | 2024-03-16 19:35 | External Medical Summary | Summary of Care ---
Author Name Unknown Organization [facility] Address [address] [place] [address] Phone [phone] Care Team Providers Care Gleason Gear Generator Name Role Phone Markell Linton MD Primary Care Provider [phone] Reason for Visit * Reason Onset Date Comments Med Request 02/16/2024 Encounter Details Date Type Department Care Team (Late st Contact Info) Description 02/16/2024 Telephone [facility] [address] [place] [address] AugustMarkell MD [address] [place] [address] Med Request Allergies Active Allergy Reactions Criticality Noted Date Comments Azithromycin Medium 06/19/2023 Facial redness, swelling, itching, watery eyes Methylprednisolone Sodium Succ 12/06 Dog Dander Low 03/20/2019 Other reaction(s): Sneezing Food (See Comments) 02/23/2018 Duck eggs Swelling Pollen 08/25/2015 Nystatin 01/17/2019 Allergic reaction Pollen Extract 03/20/2019 Other reaction(s): HAYFEVER documented as of this encounter (statuses as of 02/19/2024) Medications Medication Sig Dispensed Refills Start Date [...] group C, by GOLD 2017 classification ([facility]) Use to nebulize medicaitons 1 Kit 1 05/25/2022 Active Clopidogrel Bisulfate 75 MG Oral Tablet (pLAVix)Indications :Congestive heart failure due to valvular disease ([facility]) TAKE 1 TABLET BY MOUTH EVERY DAY IN THE MORNING 90 Tablet 3 03/21/2023 Active Amiodarone HCl 200 MG Oral Tablet (Cordarone)Indicati ons:Paroxysmal atrial fibrillation ([facility]) Take 1 Tablet by mouth in the morning. 90 Tablet 3 03/21/2023 Active Ketoconazole 2 % External Cream APPLY TOPICALLY TO AFFECTED AREA 2 TIMES A DAY FOR 14 DAYS. APPLY TO AFFECTED AREA AFTER DRYING SKIN 60 g 2 06/08/2023 Active Doxycycline Hyclate 100 MG Oral Capsule Take 1 Capsule by mouth in the morning and 1 Capsule before bedtime. 07/19/2023 Active Ipratropium-Albuter ol 0.5-2.5 (3) MG/3ML Inhalation Solution (Duoneb)Indications :COPD, group C, by GOLD 2017 classification ([facility]) INHALE 1 VIAL EVERY 4 TO 6 HOURS NEEDED FOR WHEEZING 360 mL 2 07/24/2023 Active Probiotic (Lactobacillus) Oral CapsuleIndications: Loose stools Take 1 Capsule by mouth in the morning. 90 Capsule 3 07/24/2023 Active Metoprolol Succinate ER 25 MG Oral Tablet Extended Release 24 Hour (toPROL XL) TAKE 1 TABLET BY MOUTH EVERY DAY IN THE MORNING 90 Tablet 3 09/05/2023 Active Magnesium Oxide -Mg Supplement 400 (240 Mg) MG Oral Tablet (Mag-Ox)Indications :Hypomagnesemia TAKE 1 TABLET BY MOUTH IN THE MORNING AND BEFORE BEDTIME 180 Tablet 1 09/06/2023 Active Furosemide 20 MG Oral Tablet (Lasix)Indications: Acute congestive heart failure, unspecified heart failure type ([facility]),PAULETTE (acute kidney injury) ([facility]) TAKE 2 TABLETS BY MOUTH EVERY MORNING 180 Tablet 1 09/19/2023 Active Heartburn Relief 10 MG Oral Tablet (Famotidine)Indicat ions:Gastroesophage al reflux disease without esophagitis TAKE 1 TABLET BY MOUTH EVERY DAY IN THE MORNING 90 Tablet 1 10/03/2023 Active Albuterol Sulfate HFA 108 (90 Base) MCG/ACT Inhalation Aerosol SolutionIndications :COPD, group C, by GOLD 2017 classification ([facility]),Asthma with irreversible airway obstruction, unspecified asthma severity, uncomplicated ([facility]) TAKE 2 PUFFS BY MOUTH EVERY 6 HOURS NEEDED FOR WHEEZE 54 g 1 10/16/2023 Active Fluticasone Furoate 100 MCG/ACT Inhalation Aerosol Powder Breath Activated (ARNUITY ellipta) Inhale 1 Puff by mouth in the morning. 90 Each 3 11/30/2023 Active Triamcinolone Acetonide 0.5 % External Cream (Aristocort)Indicat ions:Senile purpura ([facility]) Apply topically to affected area 2 times a day. To affected area. 60 g 1 12/19/2023 Active Simvastatin 10 MG Oral Tablet (Zocor) TAKE 1 TABLET BY MOUTH EVERYDAY AT BEDTIME 90 Tablet 12/26/2023 Active Pantoprazole Sodium 40 MG Oral Tablet Delayed Release (Protonix)Indicatio ns:Esophageal reflux TAKE 1 TABLET BY MOUTH IN THE MORNING AND BEFORE BEDTIME 180 Tablet 3 12/26/2023 Active Levothyroxine Sodium 50 MCG Oral Tablet (Levoxyl)Indication s:Hypothyroidism, unspecified type TAKE 1 TABLET BY MOUTH IN THE MORNING. ON AN EMPTY STOMACH.. 90 Tablet 01/03/2024 Active Ferrous Sulfate 325 (65 Fe) MG Oral Tablet (Feosol)Indications :Macrocytic anemia TAKE 1 TABLET BY MOUTH EVERY DAY AT 12 90 Tablet 01/03/2024 Active traMADol HCl 50 MG Oral Tablet (Ultram)Indications :Bilateral primary osteoarthritis of knee Take 1 Tablet by mouth every 12 hours as needed for Pain, Moderate. 60 Tablet 02/02/2024 Active Topiramate 50 MG Oral Tablet (topAMAX)Indication s:Chronic daily headache One tab morning, one tab mid day and half tab at bedtime for migraine prevention 135 Tablet 1 02/16/2024 Active Topiramate 50 MG Oral Tablet (topAMAX)Indication s:Chronic daily headache Take 0.5 Tablets by mouth in the morning and 0.5 Tablets at noon and 0.5 Tablets before bedtime. One tab morning, one tab mid day and half tab at bedtime for migraine prevention. 135 Tablet 1 12/06/2023 Discontinu ed(Refill) documented as of this encounter (statuses as of 02/19/2024) Active Problems Problem Noted Date Diagnosed Date [...] as of this encounter (statuses as of 02/19/2024) Resolved Problems Problem Noted Date Diagnosed Date [...] as of this encounter (statuses as of 02/19/2024) Immunizations Name Administration Dates Next Due Pneumococcal [...] years and over) Not on file 10/10/2023 Sex and Gender Information Value Date Recorded [...] Telephone Encounter - Markell Linton MD - 02/19/2024 7:47 AM EDT Can we please check on this. I see one tab in morning, one tab at noon, and one half tab at night. This seems to be correct throughout the script. Markell Linton MD * Telephone Encounter - Kristin Mondragon PHARM Tech - 02/16/2024 9:06 AM EDT Pharmacy called stating topiramate has two sets of directions. Pharmacy wondering if could send new script with correct directions. Thanks, Kristin Mondragon Glaze Mixer [facility]) 02/16/2024,9:07 AM documented in this encounter Plan of Treatment Upcoming Encounters Date Type Department Care Team (Late st Contact Info) Description 08/09/2024 9:00 AM EDT Office Visit [facility] [address] [place] [address] Chago Todd MD [address] [place] [address] 08/21/2024 10:40 AM EDT [facility] Visit [facility] [address] [place] [address] August, Markell Heller MD [address] [place] [facility] [place] [address] Health Maintenance Due Date Last Done Comments [...] Documents on File Type Date Recorded Patient Activities Officer Expl anation Power of Coffee Maker Servicer 04/06/2023 POWER OF A TTORNEY * Full [...] and were consensually agreed upon. Care Teams Gleason Gear Generator Relationship Specialty Start Date End Date August, Markell Heller MD [address] [place] [address] PCP - General Family Medicine 03/30/23 documented as of this encounter
--- OUTSIDE RECORDS SUMMARY | 2024-03-16 19:35 | External Medical Summary | Summary of Care ---
Author Name Unknown Organization [facility] Address [address] [place] [address] Phone [phone] Care Team Providers Care Fancy Needleworker Name Role Phone Eleuterio Lopez MD Primary Care Provider [phone] Reason for Visit * Reason Comments eRx-Medication Refill Encounter Details Date Type Department Care Team (Late st Contact Info) Description 03/14/[address] [facility] [address] [place] [address] Eleuterio Lopez MD [address] [place] [address] Gastroesophageal reflux disease without esophagitis; Paroxysmal atrial fibrillation (HCC); Hypomagnesemia; Macrocytic anemia Allergies Active Allergy Reactions Criticality [...] PD, group C, by GOLD 2017 classification ([facility]) Use to nebulize medicaitons 1 Kit 1 023 Active Clopidogrel Bisulfate 75 MG Oral Tablet (pLAVix)Indicatio ns:Congestive heart failure due to valvular disease ([facility]) TAKE 1 TABLET BY MOUTH EVERY DAY IN THE MORNING 90 Tablet 3 023 Active Ketoconazole 2 [...] ns:COPD, group C, by GOLD 2017 classification ([facility]) INHALE 1 VIAL EVERY 4 [...] THE MORNING 90 Tablet 3 024 Active Furosemide 20 MG Oral Tablet (Lasix)Indication s:Acute congestive heart failure, unspecified heart failure type ([facility]),PAULETTE (acute kidney injury) ([facility]) TAKE 2 TABLETS BY MOUTH EVERY MORNING 180 Tablet 1 024 Active Fluticasone Furoate 100 MCG/ACT Inhalation Aerosol Powder Breath Activated (ARNUITY ellipta) Inhale 1 Puff by mouth in the morning. 90 Each 3 024 Active Triamcinolone Acetonide 0.5 % External Cream (Aristocort)Indic ations:Senile purpura ([facility]) Apply topically to affected area 2 times a day. To affected area. 60 g 1 024 Active Pantoprazole Sodium 40 MG Oral Tablet Delayed Release (Protonix)Indicat ions:Esophageal reflux TAKE 1 TABLET BY MOUTH IN THE MORNING AND BEFORE BEDTIME 180 Tablet 3 024 Active Levothyroxine Sodium 50 MCG Oral Tablet (Levoxyl)Indicati ons:Hypothyroidis m, unspecified type TAKE 1 TABLET BY MOUTH IN THE MORNING. ON AN EMPTY STOMACH.. 90 Tablet 024 Active Topiramate 50 MG Oral Tablet (topAMAX)Indicati ons:Chronic daily headache One tab morning, one tab mid day and half tab at bedtime for migraine prevention 135 Tablet 1 024 Active traMADol HCl 50 MG Oral Tablet (Ultram)Indicatio ns:Bilateral primary osteoarthritis of knee Take 1 Tablet by mouth every 12 hours as needed for Pain, Moderate. 60 Tablet Active Albuterol Sulfate HFA 108 (90 Base) MCG/ACT Inhalation Aerosol SolutionIndicatio ns:COPD, group C, by GOLD 2017 classification ([facility]),Asthma with irreversible airway obstruction, unspecified asthma severity, uncomplicated ([facility]) INHALE 2 PUFFS BY MOUTH EVERY 6 HOURS NEEDED FOR WHEEZE 54 g 1 024 Active Heartburn Relief 10 MG Oral Tablet (Famotidine)Indic ations:Gastroesop hageal reflux disease without esophagitis TAKE 1 TABLET BY MOUTH EVERY DAY IN THE MORNING 90 Tablet 1 024 Active Amiodarone HCl 200 MG Oral Tablet (Cordarone)Indica tions:Paroxysmal atrial fibrillation (HCC) TAKE 1 TABLET BY MOUTH EVERY DAY IN THE MORNING 90 Tablet 3 024 Active Magnesium Oxide -Mg Supplement 400 (240 Mg) MG Oral Tablet (Mag-Ox)Indicatio ns:Hypomagnesemia TAKE 1 TABLET BY MOUTH IN THE MORNING AND BEFORE BEDTIME 180 Tablet 1 024 Active Simvastatin 10 MG Oral Tablet (Zocor) TAKE 1 TABLET BY MOUTH EVERYDAY AT BEDTIME 90 Tablet 3 024 Active Ferrous Sulfate 325 (65 Fe) MG Oral Tablet (Feosol)Indicatio ns:Macrocytic anemia TAKE 1 TABLET BY MOUTH EVERY DAY AT 12 90 Tablet 1 024 Active Amiodarone HCl 200 MG Oral Tablet (Cordarone)Indica tions:Paroxysmal atrial fibrillation (HCC) Take 1 Tablet by mouth in the morning. 90 Tablet 3 023 2023 Discontinued Magnesium Oxide -Mg Supplement 400 (240 Mg) MG Oral Tablet (Mag-Ox)Indicatio ns:Hypomagnesemia TAKE 1 TABLET BY MOUTH IN THE MORNING AND BEFORE BEDTIME 180 Tablet 1 024 2023 Discontinued Heartburn Relief 10 MG Oral Tablet (Famotidine)Indic ations:Gastroesop hageal reflux disease without esophagitis TAKE 1 TABLET BY MOUTH EVERY DAY IN THE MORNING 90 Tablet 1 024 2023 Discontinued Simvastatin 10 MG Oral Tablet (Zocor) TAKE 1 TABLET BY MOUTH EVERYDAY AT BEDTIME 90 Tablet 024 2023 Discontinued Ferrous Sulfate 325 (65 Fe) MG Oral Tablet (Feosol)Indicatio ns:Macrocytic anemia TAKE 1 TABLET BY MOUTH EVERY DAY AT 12 90 Tablet 024 2023 Discontinued documented as of this encounter (statuses as of 03/15/2024) Active Problems Problem Noted Date Diagnosed Date Chronic kidney disease, stage 4 (severe) Overview: Per CKD protocol Chronic heart failure [...] Telephone Encounter - Eleuterio Lopez MD - 03/15/2024 9:40 AM ESTSigned Prescriptions: Disp Refills Heartburn Relief 10 MG Oral Tablet (Famoti*90 Tab*1 Sig: TAKE 1 TABLET BY MOUTH EVERY DAY IN THE MORNING Authorizing Provider: ELEUTERIO LOPEZ Ordering User: TRIXIE FONTANEZ Amiodarone HCl 200 MG Oral Tablet (Cordaro*90 Tab*3 Sig: TAKE 1 TABLET BY MOUTH EVERY DAY IN THE MORNING Authorizing Provider: ELEUTERIO LOPEZ Magnesium Oxide -Mg Supplement 400 (240 Mg*180 Ta*1 Sig: TAKE 1 TABLET BY MOUTH IN THE MORNING AND BEFORE BEDTIME Authorizing Provider: ELEUTERIO LOPEZ Simvastatin 10 MG Oral Tablet (Zocor) 90 Tab*3 Sig: TAKE 1 TABLET BY MOUTH EVERYDAY AT BEDTIME Authorizing Provider: ELEUTERIO LOPEZ Ordering User: TRIXIE FONTANEZ Ferrous Sulfate 325 (65 Fe) MG Oral Tablet*90 Tab*1 Sig: TAKE 1 TABLET B Y MOUTH EVERY DAY AT 12 Authorizing Provider: ELEUTERIO LOPEZ Ordering User: TRIXIE FONTANEZ * Telephone Encounter - Trixie Fontanez [facility] - 03/15/2024 9:32 AM EST Pending Prescriptions: Disp Refills Amiodarone HCl 200 MG Oral Tablet (Cordaro*90 Tab*3 Sig: TAKE 1 TABLET BY MOUTH EVERY DAY IN THE MORNING Magnesium Oxide -Mg Supplement 400 (240 Mg*180 Ta*1 Sig: TAKE 1 TABLET BY MOUTH IN THE MORNING AND BEFORE BEDTIME Signed Prescriptions: Disp Refills Heartburn Relief 10 MG Oral Tablet (Famoti*90 Tab *1 Sig: TAKE 1 TABLET BY MOUTH EVERY DAY IN THE MORNING Authorizing Provider: ELEUTERIO LOPEZ Ordering User: TRIXIE FONTANEZ Simvastatin 10 MG Oral Tablet (Zocor) 90 Tab*3 Sig: TAKE 1 TABLET BY MOUTH EVERYDAY AT BEDTIME Authorizing Provider: ELEUTERIO LOPEZ Ordering User: TRIXIE FONTANEZ Ferrous Sulfate 325 (65 Fe) MG Oral Tablet*90 Tab*1 Sig: TAKE 1 TABLET BY MOUTH EVERY D AY AT 12 Authorizing Provider: ELEUTERIO LOPEZ Ordering User: TRIXIE FONTANEZ * Telephone Encounter - Trixie Fontanez [facility] - 03/15/2024 9:32 AM EST Telepharmacy is currently not authorized to approve refills for this class of medication per refillprotocol. Thank you, Trixie Fontanez, PharmD Staff Pharmacist Refill Call Center [phone] 03/15/2024, 9:32 AM Pending Prescriptions: Disp Refills Amiodarone HCl 200 MG Oral Tablet (Cordaro*90 Tab*3 Sig: TAKE 1 TABLET BY MOUTH EVERY DAY IN THE MORNING Magnesium Oxide -Mg Supplement 400 (240 Mg*180 Ta*1 Sig: TAKE 1 TABLET BY MOUTH IN THE MORNING AND BEFORE BEDTIME Signed Prescriptions: Disp Refills Heartburn Relief 10 MG Oral Tablet (Famoti*90 Tab*1 Sig: TAKE 1 TABLET BY MOUTH EVERY DAY IN THE MORNING Authorizing Provider: ELEUTERIO LOEPZ Ordering User: TRIXIE FONTANEZ Simvastatin 10 MG Oral Tablet (Zocor) 90 Tab*3 Sig: TAKE 1 TABLET BY MOUTH EVERYDAY AT BEDTIME Authorizing Provider: ELEUTERIO LOPEZ Ordering User: TRIXIE FONTANEZ Ferrous Sulfate 325 (65 Fe) MG Oral Tablet*90 Tab*1 Sig: TAKE 1 TABLET BY MOUTH EVERY DAY AT 12 Authorizing Provider: ELEUTERIO LOPEZ Ordering User: TRIXIE FONTANEZ Last Visit: 02/07/2024 (in office), 04/21/2022 (telemedicine) Next Visit: Visit date not found If no future appointments scheduled, and last appointment is greater than a year ago, please schedule patient for a follow-up appointment Last date the medication was ordered: 03/21/23 Pharmacy: [id number] [facility] Is this request for a controlled substance?No Urine Drug Screen:No results found. However, due [...] Visit Nephrology, Erik Shah [address] [place] [address] Chago Todd MD [address] [place] [address] 08/21/2024 10:40 AM EDT [facility] [address] [place] [address] Eleuterio Lopez MD [address] [place] [address] Health Maintenance Due Date Last Done Comments [...] Gastroesophageal reflux disease without esophagitis Esophageal reflux Paroxysmal atrial fibrillation (HCC) Atrial fibrillation Hypomagnesemia Disorders of magnesium metabolism Macrocytic anemia Unspecified deficiency anemia documented in this encounter Advance Directives Documents on File Type Date Recorded Patient Museum Tour Guide Expl anation Power of Finish Cleaner 04/06/2023 POWER OF A TTORNEY * Full [...] and were consensually agreed upon. Care Teams Fancy Needleworker Relationship Specialty Start Date End Date August, Eleuterio Heller MD [address] [place] [address] PCP - General Family Medicine 03/30/23 documented as of this encounter
--- OUTSIDE RECORDS SUMMARY | 2024-03-16 19:35 | External Medical Summary | Summary of Care ---
Author Name Unknown Organization [facility] Address [address] [place] [address] Phone [phone] Care Team Providers Care Talent Development Specialist Name Role Phone Markell Linton MD Primary Care Provider [phone] Reason for Visit * Reason Onset Date Comments Med Request 02/16/2024 Encounter Details Date Type Department Care Team (Late st Contact Info) Description 02/16/2024 Telephone [facility] [address] [place] [address] AugustMarkell MD [address] [place] [address] Med Request Allergies Active Allergy Reactions Criticality Noted Date Comments Azithromycin Medium 06/19/2023 Facial redness, swelling, itching, watery eyes Methylprednisolone Sodium Succ 12/06 Dog Dander Low 03/20/2019 Other reaction(s): Sneezing Food (See Comments) 02/23/2018 Duck eggs Swelling Pollen 08/25/2015 Nystatin 01/17/2019 Allergic reaction Pollen Extract 03/20/2019 Other reaction(s): HAYFEVER documented as of this encounter (statuses as of 02/21/2024) Medications Medication Sig Dispensed Refills Start Date [...] , group C, by GOLD 2017 classification ([facility]) Use to nebulize medicaitons 1 Kit 1 05/25/2022 Active Clopidogrel Bisulfate 75 MG Oral Tablet (pLAVix)Indications :Congestive heart failure due to valvular disease ([facility]) TAKE 1 TABLET BY MOUTH EVERY DAY IN THE MORNING 90 Tablet 3 03/21/2023 Active Amiodarone HCl 200 MG Oral Tablet (Cordarone)Indicati ons:Paroxysmal atrial fibrillation ([facility]) Take 1 Tablet by mouth in the [...] :COPD, group C, by GOLD 2017 classification ([facility]) INHALE 1 VIAL EVERY 4 TO 6 [...] congestive heart failure, unspecified heart failure type ([facility]),PAULETTE (acute kidney injury) ([facility]) TAKE 2 TABLETS BY MOUTH EVERY MORNING 180 Tablet 1 09/19/2023 Active Heartburn Relief 10 MG Oral Tablet (Famotidine)Indicat ions:Gastroesophage al reflux disease without esophagitis TAKE 1 TABLET BY MOUTH EVERY DAY IN THE MORNING 90 Tablet 1 10/03/2023 Active Albuterol Sulfate HFA 108 (90 Base) MCG/ACT Inhalation Aerosol SolutionIndications :COPD, group C, by GOLD 2017 classification ([facility]),Asthma with irreversible airway obstruction, unspecified asthma severity, uncomplicated ([facility]) TAKE 2 PUFFS BY MOUTH EVERY 6 HOURS NEEDED FOR WHEEZE 54 g 1 10/16/2023 Active Fluticasone Furoate 100 MCG/ACT Inhalation Aerosol Powder Breath Activated (ARNUITY ellipta) Inhale 1 Puff by mouth in the morning. 90 Each 3 11/30/2023 Active Triamcinolone Acetonide 0.5 % External Cream (Aristocort)Indicat ions:Senile purpura ([facility]) Apply topically to affected area 2 times [...] as of this encounter (statuses as of 02/21/2024) Active Problems Problem Noted Date Diagnosed Date [...] as of this encounter (statuses as of 02/21/2024) Resolved Problems Problem Noted Date Diagnosed Date [...] as of this encounter (statuses as of 02/21/2024) Immunizations Name Administration Dates Next Due Pneumococcal [...] Telephone Encounter - Tania Aguayo LPN - 02/21/2024 4:10 PM EDT Patient has been informed of below message and [...] script with correct directions. Thanks, Kristin Mondragon Splitting Machine Operator [facility] 02/16/2024,9:07 AM documented in this encounter Plan of Treatment Upcoming Encounters Date Type Department Care Team (Late st Contact Info) Description 08/09/2024 9:00 AM EDT Office Visit Nephrology, Erik Shah [address] [place] [address] Chago Todd MD [address] [place], [place] [address] 08/21/2024 10:40 AM EDT Office Visit [facility] [address] [place] [address] AugustMarkell MD [address], [place] [address] Health Maintenance Due Date Last Done Comments [...] Documents on File Type Date Recorded Patient Residence Director Expl anation Power of Executive Director Contract Shop 04/06/2023 POWER OF A TTORNEY * Full [...] and were consensually agreed upon. Care Teams Talent Development Specialist Relationship Specialty Start Date End Date August, Markell Heller MD [address] [place] [address] PCP - General Family Medicine 03/30/23 documented as of this encounter
--- OUTSIDE RECORDS SUMMARY | 2024-03-16 19:36 | External Medical Summary ---
Author Name Unknown Address Unknown Organization [id number]:LABORATORY [facility] [place] - [address] [place] [address] Laboratory Report Ordering Provider Test Date Status JESÚS ADLER 02/07/2024 08:48:59 Final Observation Date Value Abnormality Reference (Units ) Status Iron 02/07/2024 08:48:59 54 33-151 (ug /dL) Final Iron-binding capacity 02/07/2024 08:48:59 342 250-425 (ug/dL) Final Transferrin Sat % 02/07/2024 08:48:59 16 15 -55 (%) Final Performing Location LABORATORY [facility] [place] [facility] - [address] [place] [address]
--- OUTSIDE RECORDS SUMMARY | 2024-03-16 19:36 | External Medical Summary ---
Author Name Unknown Address Unknown Organization [id number]:[place] [place] [address] [place] [address] Laboratory Report Ordering Provider Test Date Status 02/07/2024 08:48:59 Final Observation Date Value Abnormality Reference (Units ) Status HbA1C 02/07/2024 08:48:59 5.3 4.0-5.6 (% ) Final The use of HbA1c to monitor glycemic status is based on normal hemoglobin and HbA composition. This test should not be used in patients with abnormal hemoglobin that affects the half life of the red blood cell or the in vivo glycation rates. Glucose, estimated average 02/07/2024 08:48:59 105 <126 (mg/dL) Final Performing Location LABORATORY [facility] - [address] [place] [address]
--- OUTSIDE RECORDS SUMMARY | 2024-03-16 19:36 | External Medical Summary ---
Author Name Unknown Address Unknown Organization [id number]:LAB[facility]ATORY [facility] [place] - [address] [facility] [place] [address] Laboratory Report Ordering Provider Test Date Status JESÚS ADLER 02/07/2024 08:48:59 Final Observation Date Value Abnormality Reference (Units ) Status Ferritin 02/07/2024 08:48:59 78 13-150 (ng /mL) Final Postmenopausal women have hi gher ferritin levels than pre-menopausal women. The above reference interval is based on pre-menopausal women. Performing Location [facility]ORATORY [facility] - [address] [facility] [address]
--- OUTSIDE RECORDS SUMMARY | 2024-03-16 19:36 | External Medical Summary | Summary of Care ---
Author Name Unknown Organization [facility] Address [address] [place] [address] Phone [phone] Care Team Providers Care Roofing Machine Tender Name Role Phone AugustEleuterio MD Primary Care Provider Reason for Visit * Reason Onset Date Comments Medication Refill 01/31/2024 Encounter Details Date Type Department Care Team (Late st Contact Info) Description 01/31/2024 Refill [facility] [address] [place] [address] AugustEleuterio MD [address] [place] [address] Bilateral primary osteoarthritis of knee Allergies Active Allergy Reactions Criticality Noted Date Comments Azithromycin Medium 06/19/2023 Facial redness, swelling, itching, watery eyes Methylprednisolone Sodium Succ 12/06 Dog Dander Low 03/20/2019 Other reaction(s): Sneezing Food (See Comments) 02/23/2018 Duck eggs Swelling Pollen 08/25/2015 Nystatin 01/17/2019 Allergic reaction Pollen Extract 03/20/2019 Other reaction(s): HAYFEVER documented as of this encounter (statuses as of 02/02/2024) Medications Medication Sig Dispensed Refills Start Date [...] C, by GOLD 2017 classification ([facility]) Use to nebulize medicaitons 1 Kit 1 05/25/2022 Active Clopidogrel Bisulfate 75 MG Oral Tablet (pLAVix)Indications :Congestive heart failure due to valvular disease ([facility]) TAKE 1 TABLET BY MOUTH EVERY DAY IN THE MORNING 90 Tablet 3 03/21/2023 Active Amiodarone HCl 200 MG Oral Tablet (Cordarone)Indicati ons:Paroxysmal atrial fibrillation ([facility]) Take 1 Tablet by mouth in the [...] C, by GOLD 2017 classification ([facility]) INHALE 1 VIAL EVERY 4 TO 6 [...] failure, unspecified heart failure type ([facility]),PAULETTE (acute kidney injury) ([facility]) TAKE 2 TABLETS BY MOUTH EVERY MORNING 180 Tablet 1 09/19/2023 Active Heartburn Relief 10 MG Oral Tablet (Famotidine)Indicat ions:Gastroesophage al reflux disease without esophagitis TAKE 1 TABLET BY MOUTH EVERY DAY IN THE MORNING 90 Tablet 1 10/03/2023 Active Albuterol Sulfate HFA 108 (90 Base) MCG/ACT Inhalation Aerosol SolutionIndications :COPD, group C, by GOLD 2017 classification ([facility]),Asthma with irreversible airway obstruction, unspecified asthma severity, uncomplicated ([facility]) TAKE 2 PUFFS BY MOUTH EVERY 6 HOURS NEEDED FOR WHEEZE 54 g 1 10/16/2023 Active Fluticasone Furoate 100 MCG/ACT Inhalation Aerosol Powder Breath Activated (ARNUITY ellipta) Inhale 1 Puff by mouth in the morning. 90 Each 3 11/30/2023 Active Topiramate 50 MG Oral Tablet (topAMAX)Indication s:Chronic daily headache Take 0.5 Tablets by mouth in the morning and 0.5 Tablets at noon and 0.5 Tablets before bedtime. One tab morning, one tab mid day and half tab at bedtime for migraine prevention. 135 Tablet 1 12/06/2023 Active Triamcinolone Acetonide 0.5 % External Cream (Aristocort)Indicat ions:Senile purpura ([facility]) Apply topically to affected area 2 times [...] DAY AT 12 90 Tablet 01/03/2024 Active guaiFENesin-Codeine 100-10 MG/5ML Oral Syrup (Robitussin AC)Indications:COPD , group C, by GOLD 2017 classification ([facility]),COPD with exacerbation ([facility]) Take 5 mL by mouth every 4 hours as needed for Cough. 120 mL 01/17/2024 Active traMADol HCl 50 MG Oral Tablet (Ultram)Indications :Bilateral primary osteoarthritis of knee Take 1 Tablet by mouth every 12 hours as needed for Pain, Moderate. 60 Tablet 02/02/2024 Active traMADol HCl 50 MG Oral Tablet (Ultram)Indications :Bilateral primary osteoarthritis of knee Take 1 Tablet by mouth every 12 hours as needed for Pain, Moderate. 60 Tablet 01/03/2024 Discontinu ed(Refill) documented as of this encounter (statuses as of 02/02/2024) Active Problems Problem Noted Date Diagnosed Date [...] as of this encounter (statuses as of 02/02/2024) Resolved Problems Problem Noted Date Diagnosed Date [...] as of this encounter (statuses as of 02/02/2024) Immunizations Name Administration Dates Next Due Pneumococcal [...] Telephone Encounter - Eleuterio Lopez MD - 02/02/2024 12:56 PM EDTSigned Prescriptions: Disp Refills traMADol HCl 50 MG Oral Tablet (Ultram) 60 Tab*0 Sig: Take 1 Tablet by mouth every 12 hours as needed for Pain, Moderate.Authorizing Provider: ELEUTERIO LOPEZ------- * Telephone Encounter - Corby Tate [facility] - 02/02/2024 7:51 AM EDTPending Prescriptions: Disp Refills traMADol HCl 50 MG Oral Tablet (Ultram) 60 Tab*0 Sig: Take 1 Tablet by mouth every 12 hours as needed for Pain, Moderate. * Telephone Encounter - Corby Tate [facility] - 02/02/2024 7:50 AM EDT I have reviewed the patients controlled substance dispensing history in the Prescription Drug Monitoring Program in compliance with the [facility] regulations before prescribing a controlled substance. PDMP checked on 02/02/2024. Pending Prescriptions: Disp Refills traMADol HCl 50 MG Oral Tablet (Ultram) 60 Tab*0 Sig: Take 1 Tablet by mouth every 12 hours as needed for Pain, Moderate. Last Visit: 01/17/2024 (in office), 04/21/2022 (telemedicine) Next Visit: 02/07/2024 Date medication was last filled: 01/03/24 Date medication is due for refill: 02/01/24 Pharmacy: [id number] [address] [place] [address] Is this request for a controlled substance? Yes and Urine Drug Screen Not completed Toxicology results: No results found for this or any previous visit. Please approve if appropriate. Thank You, Corby Douglas [facility] Clinical Pharmacist [facility] ([facility]) 02/02/2024, 7:50 AM * Telephone Encounter - Karen Garcia, power wood sawyer - 01/31/2024 1:12 PM EDT Did you pend patient's preferred pharmacy and medication before forwarding?yes Pharmacy: [id number] [address] [facility] Pending Prescriptions: Disp Refills traMADol HCl 50 MG Oral Tablet (Ultram) 60 Tab*0 Sig: Take 1 Tablet by mouth every 12 hours as needed for Pain, Moderate. Last Visit: 01/17/2024 (in office), 04/21/2022 (telemedicine) Next Visit: 02/07/2024 If no future appointments scheduled, and last appointment is greater than a year ago, please schedule patient for a follow-up appointment Last date the medication was ordered: 01/03/2024 Is this request for a controlled substance?Yes, What was the last refill date 01/03/2024 w/ quantity 60 and dosage 50 and Urine Drug Screen Not completed Urine Drug Screen:No results found for this or any previous visit. Patient Phone Numbers Labs: Lab Results Component Value Date/Time CREAT 2.1 (H) 08/30/2023 08:37 AM CREAT 1.51 (A) 09/13/2022 12:00 AM CREAT 1.0 06/19/2019 06:10 AM POTASSIUM 4.0 08/30/2023 08:37 AM POTASSIUM 3.5 09/13/2022 12:00 AM POTASSIUM 4.5 06/19/2019 06:10 AM TSH 3.58 03/08/2023 09:47 AM TSH 6.01 (H) 05/09/2019 03:05 PM LDL 72 04/26/2022 09:13 AM LDL 86 11/25/2016 10:20 AM ALT 16 08/30/2023 08:37 AM ALT 12 06/05/2019 03:45 PM documented in this encounter Plan of Treatment Upcoming Encounters Date Type Department Care Team (Late st Contact Info) Description 02/07/2024 8:20 AM EDT Office Visit [place] [address] [facility] [place] [id number] Eleuterio Lopez MD [address] [place] [facility] [place] [place] [address] 02/07/2024 9:20 AM EDT Laboratory [facility] [place] [address] [facility] [place] [id number] [place] [address] [place] [facility] [place] [facility] [place] [address] 08/09/2024 9:00 AM EDT Office Visit [facility] [place] [address] [place] [address] Chago Todd MD [address] [facility] [place] [address] Health Maintenance Due Date Last Done Comments [...] Vaccine (FLU shot) (#1) 2023 03/12/2013 GFR 03/01/2024 08/30/2023, 02/22, 09/13/2022, Additional history exists Hgb 03/08/2024 03/08/2023, 08/23, 04/26/2022, Additional history exists TSH 03/08/2024 03/08/2023, 07/0 10/2020, 05/09/2019, Additional history exists Phosphate 08/29/2024 08/30/2023, 11/17/2020 Albumin/Creatinine Ratio 09/05/2024 09/06/2023, 12/24 O2 ASSESSMENT COMPLETED IN PAST YEAR FOR COPD 01/16/2025 01/17/2024 Colonoscopy Discontinued 07/18/2018 Colorectal Cancer Screening Discontinued [...] Documents on File Type Date Recorded Patient Outpatient Phlebotomist Expl anation Power of Dietary Assistant 04/06/2023 POWER OF A TTORNEY * Full [...] and were consensually agreed upon. Care Teams Roofing Machine Tender Relationship Specialty Start Date End Date August, Eleuterio Heller MD [address] [place] [address] PCP - General Family Medicine 03/30/23 documented as of this encounter
--- OUTSIDE RECORDS SUMMARY | 2024-03-16 19:36 | External Medical Summary | Summary of Care ---
Author Name Unknown Organization [facility] Address [address] [place] [address] Phone [phone] Care Team Providers Care Livestock Trucker Name Role Phone AugustMarkell MD Primary Care Provider [phone] Encounter Details Date Type Department Care Team (Late st Contact Info) Description 02/14/2024 Telephone [facility] [address] [place] [address] AugustMarkell MD [address] [place] [address] Allergies Active Allergy Reactions Criticality Noted Date Comments Azithromycin Medium 06/19/2023 Facial redness, swelling, itching, watery eyes Methylprednisolone Sodium Succ 12/06 Dog Dander Low 03/20/2019 Other reaction(s): Sneezing Food (See Comments) 02/23/2018 Duck eggs Swelling Pollen 08/25/2015 Nystatin 01/17/2019 Allergic reaction Pollen Extract 03/20/2019 Other reaction(s): HAYFEVER documented as of this encounter (statuses as of 02/14/2024) Medications Medication Sig Dispensed Refills Start Date [...] C, by GOLD 2017 classification ([facility]) Use to nebulize medicaitons 1 Kit 1 05/25/2022 Active Clopidogrel Bisulfate 75 MG Oral Tablet (pLAVix)Indications: Congestive heart failure due to valvular disease ([facility]) TAKE 1 TABLET BY MOUTH EVERY DAY IN THE MORNING 90 Tablet 3 03/21/2023 Active Amiodarone HCl 200 MG Oral Tablet (Cordarone)Indicatio ns:Paroxysmal atrial fibrillation ([facility]) Take 1 Tablet by mouth [...] and 1 Capsule before bedtime. 07/19/2023 Active Ipratropium-Albutero l 0.5-2.5 (3) MG/3ML Inhalation Solution (Duoneb)Indications: COPD, group C, by GOLD 2017 classification ([facility]) INHALE 1 VIAL EVERY 4 TO 6 HOURS NEEDED FOR WHEEZING 360 mL 2 07/24/2023 Active Probiotic (Lactobacillus) Oral CapsuleIndications:L oose stools Take 1 Capsule by mouth in the morning. 90 Capsule 3 07/24/2023 Active Metoprolol Succinate ER 25 MG Oral Tablet Extended Release 24 Hour (toPROL XL) TAKE 1 TABLET BY MOUTH EVERY DAY IN THE MORNING 90 Tablet 3 09/05/2023 Active Magnesium Oxide -Mg Supplement 400 (240 Mg) MG Oral Tablet (Mag-Ox)Indications: Hypomagnesemia TAKE 1 TABLET BY MOUTH IN THE MORNING AND BEFORE BEDTIME 180 Tablet 1 09/06/2023 Active Furosemide 20 MG Oral Tablet (Lasix)Indications:A cute congestive heart failure, unspecified heart failure type ([facility]),PAULETTE (acute kidney injury) ([facility]) TAKE 2 TABLETS BY MOUTH EVERY MORNING 180 Tablet 1 09/19/2023 Active Heartburn Relief 10 MG Oral Tablet (Famotidine)Indicati ons:Gastroesophageal reflux disease without esophagitis TAKE 1 TABLET BY MOUTH EVERY DAY IN THE MORNING 90 Tablet 1 10/03/2023 Active Albuterol Sulfate HFA 108 (90 Base) MCG/ACT Inhalation Aerosol SolutionIndications: COPD, group C, by GOLD 2017 classification ([facility]),Asthma with irreversible airway obstruction, unspecified asthma severity, uncomplicated ([facility]) TAKE 2 PUFFS BY MOUTH EVERY 6 HOURS NEEDED FOR WHEEZE 54 g 1 10/16/2023 Active Fluticasone Furoate 100 MCG/ACT Inhalation Aerosol Powder Breath Activated (ARNUITY ellipta) Inhale 1 Puff by mouth in the morning. 90 Each 3 11/30/2023 Active Topiramate 50 MG Oral Tablet (topAMAX)Indications :Chronic daily headache Take 0.5 Tablets by mouth in the morning and 0.5 Tablets at noon and 0.5 Tablets before bedtime. One tab morning, one tab mid day and half tab at bedtime for migraine prevention. 135 Tablet 1 12/06/2023 Active Triamcinolone Acetonide 0.5 % External Cream (Aristocort)Indicati ons:Senile purpura ([facility]) Apply topically to affected area 2 times a day. To affected area. 60 g 1 12/19/2023 Active Simvastatin 10 MG Oral Tablet (Zocor) TAKE 1 TABLET BY MOUTH EVERYDAY AT BEDTIME 90 Tablet 12/26/2023 Active Pantoprazole Sodium 40 MG Oral Tablet Delayed Release (Protonix)Indication s:Esophageal reflux TAKE 1 TABLET BY MOUTH IN THE MORNING AND BEFORE BEDTIME 180 Tablet 3 12/26/2023 Active Levothyroxine Sodium 50 MCG Oral Tablet (Levoxyl)Indications :Hypothyroidism, unspecified type TAKE 1 TABLET BY MOUTH [...] for Pain, Moderate. 60 Tablet 02/02/2024 Active documented as of this encounter (statuses as of 02/14/2024) Active Problems Problem Noted Date Diagnosed Date [...] as of this encounter (statuses as of 02/14/2024) Resolved Problems Problem Noted Date Diagnosed Date [...] 01/29/2018 02/08/2019 Overview: Per Obesity protocol #1 Josegles 08/13/2015 01/25/2017 Dyslipidemia, goal to be determined 04/01/2013 Esophageal reflux 08/13/2015 documented as of this encounter (statuses as of 02/14/2024) Immunizations Name Administration Dates Next Due Pneumococcal [...] Miscellaneous Notes * Telephone Encounter - Ritika Jj LPN - 02/14/2024 8:41 AM EDT Called patient, verbalized understanding * Telephone Encounter - Ritika Jj LPN - 02/14/2024 8:39 AM EDT ----- Message from Markell Linton MD sent at 02/09/2024 6:11 PM EDT ----- Please notify patient that all lab work is stable and there are no changes that need to be made to her current regimen based on these results. Markell Linton MD documented in this encounter Plan of Treatment Upcoming Encounters Date Type Department Care Team (Late st Contact Info) Description 08/09/2024 9:00 AM EDT Office Visit [facility] [address] [place] [address] Chago Todd MD [address] [place] [address] 08/21/2024 10:40 AM EDT Office Visit [facility] [address] [place] [facility] [place] [address] Markell Linton MD [address], [place] [id number] Health Maintenance Due Date Last Done Comments [...] Documents on File Type Date Recorded Patient Promotions Team Leader Expl anation Power of Telemarketer Supervisor 04/06/2023 POWER OF A TTORNEY * Full [...] and were consensually agreed upon. Care Teams Livestock Trucker Relationship Specialty Start Date End Date August, Markell Heller MD [address] [place] [facility] [place] [address] PCP - General Family Medicine 03/30/23 documented as of this encounter
--- OUTSIDE RECORDS SUMMARY | 2024-03-16 19:36 | External Medical Summary | Summary of Care ---
Author Name Unknown Organization [facility] Address [address] [facility] [place] [address] Phone [phone] Care Team Providers Care Primary Teaching Assistant Name Role Phone AugustMarkell MD Primary Care Provider [phone] Reason for Visit * Reason Comments Follow Up Pt here for 6 month follow up.No concerns. Encounter Details Date Type Department Care Team (Latest Contact Info) Description 02/07/2024 8:20 AM EDT Office Visit [place] [id number] [place] [address] Markell Linton MD [address] [place] [address] COPD, group C, by GOLD 2017 classification ([facility])*; Dyslipidemia, goal LDL below 100; Chronic heart failure with preserved ejection fraction ([facility]); Nonrheumatic aortic valve stenosis; S/P TAVR (transcatheter aortic valve replacement); Congestive heart failure due to valvular disease ([facility]); Paroxysmal atrial fibrillation ([facility]); Morbid obesity ([facility]); Chronic kidney disease, stage 4 (severe) ([facility]) Allergies Active Allergy Reactions Criticality Noted Date Comments Azithromycin Medium 06/19/2023 Facial redness, swelling, itching, watery eyes Methylprednisolone Sodium Succ 12/06 Dog Dander Low 03/20/2019 Other reaction(s): Sneezing Food (See Comments) 02/23/2018 Duck eggs Swelling Pollen 08/25/2015 Nystatin 01/17/2019 Allergic reaction Pollen Extract 03/20/2019 Other reaction(s): HAYFEVER documented as of this encounter (statuses as of 02/07/2024) Medications Medication Sig Dispensed Refills Start Date [...] , group C, by GOLD 2017 classification ([facility]) Use to nebulize medicaitons 1 Kit 1 05/25/2022 Active Clopidogrel Bisulfate 75 MG Oral Tablet (pLAVix)Indications :Congestive heart failure due to valvular disease ([facility]) TAKE 1 TABLET BY MOUTH EVERY DAY IN THE MORNING 90 Tablet 3 03/21/2023 Active Amiodarone HCl 200 MG Oral Tablet (Cordarone)Indicati ons:Paroxysmal atrial fibrillation ([facility]) Take 1 Tablet by mouth in [...] :COPD, group C, by GOLD 2017 classification ([facility]) INHALE 1 VIAL EVERY 4 TO [...] congestive heart failure, unspecified heart failure type ([facility]),PAULETTE (acute kidney injury) ([facility]) TAKE 2 TABLETS BY MOUTH EVERY MORNING 180 Tablet 1 09/19/2023 Active Heartburn Relief 10 MG Oral Tablet (Famotidine)Indicat ions:Gastroesophage al reflux disease without esophagitis TAKE 1 TABLET BY MOUTH EVERY DAY IN THE MORNING 90 Tablet 1 10/03/2023 Active Albuterol Sulfate HFA 108 (90 Base) MCG/ACT Inhalation Aerosol SolutionIndications :COPD, group C, by GOLD 2017 classification ([facility]),Asthma with irreversible airway obstruction, unspecified asthma severity, uncomplicated ([facility]) TAKE 2 PUFFS BY MOUTH EVERY [...] 0.5 % External Cream (Aristocort)Indicat ions:Senile purpura ([facility]) Apply topically to affected area 2 [...] for Pain, Moderate. 60 Tablet 02/02/2024 Active Cefdinir 300 MG Oral Capsule (Omnicef)Indication s:COPD, group C, by GOLD 2017 classification ([facility]),COPD with exacerbation (HCC) Take 1 Capsule by mouth in the morning for 10 days. 10 Capsule 01/17/2024 4 Discontinu ed(Patient preference /discontin uation) guaiFENesin-Codeine 100-10 MG/5ML Oral Syrup (Robitussin AC)Indications:COPD , group C, by GOLD 2017 classification ([facility]),COPD with exacerbation (HCC) Take 5 mL by mouth every 4 hours as needed for Cough. 120 mL 01/17/2024 Discontinu ed(Patient preference /discontin uation) documented as of this encounter (statuses as of 02/07/2024) Active Problems Problem Noted Date Diagnosed Date [...] as of this encounter (statuses as of 02/07/2024) Resolved Problems Problem Noted Date Diagnosed Date [...] as of this encounter (statuses as of 02/07/2024) Immunizations Name Administration Dates Next Due Pneumococcal [...] Sign Reading Time Taken Comments Blood Pressure 118/80 02/07/2024 8:00 AM EDT Pulse 50 02/07/2024 8:00 AM EDT Temperature 35.8 C (96.4 F) 02/07/2024 8:00 AM ED T Respiratory Rate 16 02/07/2024 8:00 AM EDT Oxygen Saturation 95% 02/07/2024 8:00 AM EDT Inhaled Oxygen Concentration - - Weight 119.6 kg (263 lb 9.6 oz) 02/07/2024 8:00 AM EDT Height 170.2 cm (5' 7") 02/07/2024 8:00 AM EDT Body Mass Index 41.29 02/07/2024 8:00 AM EDT documented in this encounter Functional Status Functional [...] Progress Notes * Markell Linton MD - 02/07/2024 8:08 AM EDT Images from the original note were not included. Assessment and Plan 1. COPD, group C, by GOLD 2017 classification ([facility]) Continue Arnuity Ellipta. Respiratory status stable. 2. Dyslipidemia, goal LDL below 100 Continue simvastatin. Lipid panel will be collected today. 3. Chronic heart failure with preserved ejection fraction ([facility]) EF of 65% on echocardiogram in September 11, 2023. Appears euvolemic on exam today. Continue furosemide 40 mg daily. Continue statin, aspirin, metoprolol. 4. Nonrheumatic aortic valve stenosis Status post TAVR 05/09/2019. 5. S/P TAVR (transcatheter aortic valve replacement) 6. Congestive heart failure due to valvular disease ([facility]) 7. Paroxysmal atrial fibrillation ([facility]) Not on anticoagulation due to history of GI bleed. Continue metoprolol 12.5 mg daily and [id number] mg daily. 8. Morbid obesity ([facility]) 9. Chronic kidney disease, stage 4 (severe) ([facility]) CKD stage 4 on most recent lab work. Repeat today. Awaiting evaluation by Nephrology in July 2024. Patient declined flu, COVID, tetanus, pneumonia, shingles vaccines today. Wrap-Up Follow up in 6 months. History of Present Illness The patient is a 73-year-old female with past medical history of COPD group C by gold 2017 classification, dyslipidemia, heart failure with preserved ejection fraction, aortic stenosis status post TAVR, paroxysmal atrial fibrillation not on anticoagulation,, obesity, CKD stage 4 who presents for routine six-month follow up. Patient presents for routine follow up. We discussed her multiple medical conditions including COPDgroup C. She currently reports stable respiratory status. She does take Arnuity Ellipta daily. She reports recovering from mild COPD exacerbation last month. Patient also with history of chronic heart failure with preserved ejection fraction, paroxysmal atrial fibrillation, aortic stenosis status post TAVR. She currently takes amiodarone along with metoprolol. She was on aspirin and Plavix as well. She is not on a blood thinner due to history of GI bleed. She does have CKD stage 4. Awaiting evaluation by Nephrology in 2024. Avoid nephrotoxic medications. Discussed the importance of controlling blood pressure which is 118/80 today. Due for repeat lab work which she was agreeable to. Has a history of hypothyroidism on levothyroxine. Has dyslipidemia on simvastatin. Did discuss health maintenance. Patient declines all vaccines including shingles, pneumonia, flu, COVID, tetanus. Physical Exam Vitals: 02/07/24 0800 Temp: 35.8 C (96.4 F) Pulse: 50 Resp: 16 SpO2: 95% BP: 118/80 BMI: 41.28 Physical Exam Physical Exam Vitals reviewed. Constitutional: General: She is not in acute distress. Appearance: She is obese. Comments: Using wheelchair for mobility. Cardiovascular: Rate and Rhythm: Normal rate and regular rhythm. Heart sounds: No murmur heard. Pulmonary: Effort: Pulmonary effort is normal. No respiratory distress. Breath sounds: Normal breath sounds. Musculoskeletal: Comments: Trace edema of the lower extremities bilaterally. Skin: General: Skin is warm and dry. Neurological: General: No focal deficit present. Mental Status: She is alert. Time: I spent a total of 30-39 minutes (exact time 32 mins) on the date of service in preparation, delivery, and documentation of the care provided to the patient excluding any time spent in the performance of separately billed services. This note has been completed in part utilizing [employer] Speech Voice Recognition Software. Due to technical limitations of the software, grammatical errors, random word insertions, prounoun errors, and incomplete sentences may occur. Any formal questions or concerns about the content, text, or information contained within the body of this dictation should be directly addressed to the provider for clarification. documented in this encounter Nursing Notes * Mireille Weston MED ASSIST - 02/07/2024 8:09 AM EDT The patient has been properly identified by confirmation of name and date of . Chief Complaint Patient presents with Follow Up Pt here for 6 month follow up. No concerns. documented in this encounter Plan of Treatment Upcoming Encounters Date Type Department Care Team (Late st Contact Info) Description 02/07/2024 9:20 AM EDT Laboratory Laboratory, [place] [address] [place] [facility] [place] [address] [facility] [address] [place] [address] Screening for diabetes mellitus; Chronic kidney disease, stage 4 (severe) (HCC); Dyslipidemia; [employer] Other*[id number]; Macrocytic anemia; Hypothyroidism, unspecified type 08/09/2024 9:00 AM EDT Office [facility] [address] [place] [address] Chago Todd MD [address] [facility] [place] [address] 08/21/2024 10:40 AM EDT Office Visit Family Practice, [place] [address] [place] [facility] [place] [address] AugustMarkell MD [address] [place] [address] Health Maintenance Due Date Last [...] IN PAST YEAR FOR COPD 02/06/2025 02/07/2024 Colonoscopy Discontinued 07/18/2018 Colorectal Cancer Screening Discontinued [...] C, by GOLD 2017 classification (HCC)- Primary Dyslipidemia, goal LDL below 100 Other and unspecified hyperlipidemia Chronic heart failure with preserved ejection fraction (HCC) Nonrheumatic aortic valve stenosis Aortic valve disorders S/P TAVR (transcatheter aortic valve replacement) Heart valve replaced by other means Congestive heart failure due to valvular disease (HCC) Congestive heart failure, unspecified Paroxysmal atrial fibrillation (HCC) Atrial fibrillation Morbid obesity (HCC) Morbid obesity Chronic kidney disease, stage 4 (severe) (HCC) Screening for diabetes mellitus Chronic kidney disease, stage 4 (severe) (HCC) Dyslipidemia Other and unspecified hyperlipidemia MyCC$ [employer] Other*[id number] Macrocytic anemia Unspecified deficiency anemia Hypothyroidism, unspecified type documented in this encounter Advance Directives Documents on File Type Date Recorded Patient Wiring Technician Expl anation Power of Quality Assurance Project Manager 04/06/2023 POWER OF A TTORNEY * Full [...] and were consensually agreed upon. Care Teams Primary Teaching Assistant Relationship Specialty Start Date End Date August, Markell Heller MD [address] [place] [address] PCP - General Family Medicine 03/30/23 documented as of this encounter
--- OUTSIDE RECORDS SUMMARY | 2024-03-16 19:36 | External Medical Summary ---
Author Name Unknown Address Unknown Organization K01:[facility] [place] [facility] [address] [place] [address] Laboratory Report Ordering Provider Test Date Status 02/07/2024 08:48:59 Final Observation Date Value Abnormality Reference (Units ) Status Triglyceride 02/07/2024 08:48:59 152 <=174 ( mg/dL) Final Triglyceride Reference Range s (mg/dL):
<150 Acceptable
150-174 Borderline high
175-499 High
>=500 Very high Cholesterol 02/07/2024 08:48:59 146 <200 (mg /dL) Final Total Cholesterol Reference Ranges (mg/dL):
<200 Desirable
200-239 Borderline high
>=240 High HDL 02/07/2024 08:48:59 37 Below low normal >49 (mg/dL) Final HDL Cholesterol Reference Ra nges (mg/dL):
>=60 High (Desirable)
<50 Low (Undesirable) For Females
<40 Low (Undesirable) For Males NON-HDL CHOLESTEROL 02/07/2024 08:48:59 109 <=159 (mg/dL) Final Non-HDL Cholesterol Referenc e Range (mg/dL):
<100 Target level for high risk ASCVD patient
<130 Optimal for general population
130-159 Near optimal for general population
160-189 Borderline High
190-219 High
>=220 Very High LDL, (calculated) 02/07/2024 08:48:59 79 <= 129 (mg/dL) Final LDL Cholesterol Reference Ra nges (mg/dL):
<70 Target level for high risk ASCVD patient
<100 Optimal for general population
100-129 Near optimal for general population
130-159 Borderline high
160-189 High
>=190 Very high Performing Location [facility] [place] - [address] [facility] [id number]
--- OUTSIDE RECORDS SUMMARY | 2024-03-16 19:36 | External Medical Summary | Summary of Care ---
Author Name Unknown Organization [facility] Address [address] [place] [address] Phone [phone] Care Team Providers Care Director Of Community Education Name Role Phone AugustMarkell MD Primary Care Provider [phone] Reason for Visit * Reason Comments eRx-Medication Refill Encounter Details Date Type Department Care Team (Late st Contact Info) Description 01/05/2024 Refill [facility] [address] [place] [address] AugustMarkell MD [address] [place] [address] Bilateral primary osteoarthritis of knee Allergies Active Allergy Reactions Criticality Noted Date Comments Azithromycin Medium 06/19/2023 Facial redness, swelling, itching, watery eyes Methylprednisolone Sodium Succ 12/06 Dog Dander Low 03/20/2019 Other reaction(s): Sneezing Food (See Comments) 02/23/2018 Duck eggs Swelling Pollen 08/25/2015 Nystatin 01/17/2019 Allergic reaction Pollen Extract 03/20/2019 Other reaction(s): HAYFEVER documented as of this encounter (statuses as of 01/06/2024) Medications Medication Sig Dispensed Refills Start Date [...] C, by GOLD 2017 classification ([facility]) Use to nebulize medicaitons 1 Kit 1 05/25/2022 Active Clopidogrel Bisulfate 75 MG Oral Tablet (pLAVix)Indications: Congestive heart failure due to valvular disease ([facility]) TAKE 1 TABLET BY MOUTH EVERY DAY IN THE MORNING 90 Tablet 3 03/21/2023 Active Amiodarone HCl 200 MG Oral Tablet (Cordarone)Indicatio ns:Paroxysmal atrial fibrillation ([facility]) Take 1 Tablet by mouth in [...] and 1 Capsule before bedtime. 07/19/2023 Active Cefdinir 300 MG Oral Capsule (Omnicef) Take 1 Capsule by mouth in the morning and 1 Capsule before bedtime. 07/19/2023 Active Ipratropium-Albutero l 0.5-2.5 (3) MG/3ML Inhalation Solution (Duoneb)Indications: COPD, group C, by GOLD 2017 classification ([facility]) INHALE 1 VIAL EVERY 4 TO [...] failure, unspecified heart failure type ([facility]),PAULETTE (acute kidney injury) ([facility]) TAKE 2 TABLETS BY MOUTH EVERY MORNING 180 Tablet 1 09/19/2023 Active Heartburn Relief 10 MG Oral Tablet (Famotidine)Indicati ons:Gastroesophageal reflux disease without esophagitis TAKE 1 TABLET BY MOUTH EVERY DAY IN THE MORNING 90 Tablet 1 10/03/2023 Active Albuterol Sulfate HFA 108 (90 Base) MCG/ACT Inhalation Aerosol SolutionIndications: COPD, group C, by GOLD 2017 classification ([facility]),Asthma with irreversible airway obstruction, unspecified asthma severity, uncomplicated ([facility]) TAKE 2 PUFFS BY MOUTH EVERY [...] 0.5 % External Cream (Aristocort)Indicati ons:Senile purpura ([facility]) Apply topically to affected area 2 [...] needed for Pain, Moderate. 60 Tablet 01/03/2024 Active documented as of this encounter (statuses as of 01/06/2024) Active Problems Problem Noted Date Diagnosed Date Chronic kidney disease, stage 4 (severe) 05/13/2 024 Overview: Per CKD protocol Chronic heart [...] as of this encounter (statuses as of 01/06/2024) Resolved Problems Problem Noted Date Diagnosed Date [...] as of this encounter (statuses as of 01/06/2024) Immunizations Name Administration Dates Next Due Pneumococcal Conjugate Vacc, 13 Valent (Prevnar) 11/25/2016 Pneumococcal Polysaccharide PPV23 (Pneumovax) Seasonal Influenza, Trivalen t, (IIV3), with Preserv, (Fluzone) 03/12/2013 TDAP (age 10 and older)(Boostrix) 07/02/2013 [...] encounter Miscellaneous Notes * Telephone Encounter - Amaris Rea RPh - 01/06/2024 7:48 PM EDT Refused Prescriptions: Disp Refills traMADol HCl 50 MG Oral Tablet (Ultram) 60 Tab*0 Sig: TAKE 1 TABLET BY MOUTH EVERY 12 HOURS NEEDED FOR PAIN, MODERATE.Refused By: AMARIS REA forRefusal: Too soon documented in this encounter Plan of Treatment Upcoming Encounters Date Type Department Care Team (Late st Contact Info) Description 01/31/2024 9:00 AM EDT [facility] [place] [address] [facility] [id number] [place] [address] [facility] [id number] 02/07/2024 8:20 AM EDT Office Visit [facility] [address] [facility] [place] [phone] Markell Linton MD [address] [facility] [address] 08/09/2024 9:00 AM EDT Office Visit Nephrology, [place] [address] [place] [address] Chago Todd MD [address] [place] [address] Health Maintenance Due Date Last Done Comments [...] ASSESSMENT COMPLETED IN PAST YEAR FOR COPD 10/16/2024 10/17/2023 Colonoscopy Discontinued 07/18/2018 Colorectal Cancer Screening Discontinued [...] Documents on File Type Date Recorded 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 Care Teams Director Of Community Education Relationship Specialty Start Date End Date August, Markell Heller MD [address] [facility] [place] [address] PCP - General Family Medicine 03/30/23 documented as of this encounter
--- OUTSIDE RECORDS SUMMARY | 2024-03-16 19:36 | External Medical Summary | Summary of Care ---
Author Name Unknown Organization [facility] Address [address] [place] [address] Phone [phone] Care Team Providers Care Head Of Merchandise Buying Name Role Phone Markell Linton MD Primary Care Provider [phone] Reason for Visit * Reason Comments Acute Patient is here toda y for a cough. Patient has had it on and off for two weeks. Patient is producing a dark green mucus. Reports having trouble sleeping at night due to coughing.Unsure if it is COPD or not. Encounter Details Date Type Department Care Team (Latest Contact Info) Description 01/17/2024 9:00 AM EDT Office Visit [facility] [address] [place] [address] Markell Linton MD [address] [place] [address] COPD, group C, by GOLD 2017 classification ([facility])*; COPD with exacerbation ([facility]); Chronic kidney disease, stage 4 (severe) ([facility]); Chronic heart failure with preserved ejection fraction ([facility]) Allergies Active Allergy Reactions Criticality Noted Date Comments Azithromycin Medium 06/19/2023 Facial redness, swelling, itching, watery eyes Methylprednisolone Sodium Succ 12/06 Dog Dander Low 03/20/2019 Other reaction(s): Sneezing Food (See Comments) 02/23/2018 Duck eggs Swelling Pollen 08/25/2015 Nystatin 01/17/2019 Allergic reaction Pollen Extract 03/20/2019 Other reaction(s): HAYFEVER documented as of this encounter (statuses as of 01/17/2024) Medications Medication Sig Dispensed Refills Start Date [...] group C, by GOLD 2017 classification ([facility]) Use to nebulize medicaitons 1 Kit 1 3 Active Clopidogrel Bisulfate 75 MG Oral Tablet (pLAVix)Indications :Congestive heart failure due to valvular disease ([facility]) TAKE 1 TABLET BY MOUTH EVERY DAY IN THE MORNING 90 Tablet 3 3 Active Amiodarone HCl 200 MG Oral Tablet (Cordarone)Indicati ons:Paroxysmal atrial fibrillation ([facility]) Take 1 Tablet by mouth in the morning. 90 Tablet 3 3 Active Ketoconazole 2 % External Cream APPLY TOPICALLY TO AFFECTED AREA 2 TIMES A DAY FOR 14 DAYS. APPLY TO AFFECTED AREA AFTER DRYING SKIN 60 g 2 4 Active Doxycycline Hyclate 100 MG Oral Capsule Take 1 Capsule by mouth in the morning and 1 Capsule before bedtime. 4 Active Ipratropium-Albuter ol 0.5-2.5 (3) MG/3ML Inhalation Solution (Duoneb)Indications :COPD, group C, by GOLD 2017 classification ([facility]) INHALE 1 VIAL EVERY 4 TO 6 HOURS NEEDED FOR WHEEZING 360 mL 2 4 Active Probiotic (Lactobacillus) Oral CapsuleIndications: Loose stools Take 1 Capsule by mouth in the morning. 90 Capsule 3 4 Active Metoprolol Succinate ER 25 MG Oral Tablet Extended Release 24 Hour (toPROL XL) TAKE 1 TABLET BY MOUTH EVERY DAY IN THE MORNING 90 Tablet 3 4 Active Magnesium Oxide -Mg Supplement 400 (240 Mg) MG Oral Tablet (Mag-Ox)Indications :Hypomagnesemia TAKE 1 TABLET BY MOUTH IN THE MORNING AND BEFORE BEDTIME 180 Tablet 1 4 Active Furosemide 20 MG Oral Tablet (Lasix)Indications: Acute congestive heart failure, unspecified heart failure type ([facility]),PAULETTE (acute kidney injury) ([facility]) TAKE 2 TABLETS BY MOUTH EVERY MORNING 180 Tablet 1 4 Active Heartburn Relief 10 MG Oral Tablet (Famotidine)Indicat ions:Gastroesophage al reflux disease without esophagitis TAKE 1 TABLET BY MOUTH EVERY DAY IN THE MORNING 90 Tablet 1 4 Active Albuterol Sulfate HFA 108 (90 Base) MCG/ACT Inhalation Aerosol SolutionIndications :COPD, group C, by GOLD 2017 classification ([facility]),Asthma with irreversible airway obstruction, unspecified asthma severity, uncomplicated ([facility]) TAKE 2 PUFFS BY MOUTH EVERY 6 HOURS NEEDED FOR WHEEZE 54 g 1 4 Active Fluticasone Furoate 100 MCG/ACT Inhalation Aerosol Powder Breath Activated (ARNUITY ellipta) Inhale 1 Puff by mouth in the morning. 90 Each 3 4 Active Topiramate 50 MG Oral Tablet (topAMAX)Indication s:Chronic daily headache Take 0.5 Tablets by mouth in the morning and 0.5 Tablets at noon and 0.5 Tablets before bedtime. One tab morning, one tab mid day and half tab at bedtime for migraine prevention. 135 Tablet 1 4 Active Triamcinolone Acetonide 0.5 % External Cream (Aristocort)Indicat ions:Senile purpura ([facility]) Apply topically to affected area 2 times a day. To affected area. 60 g 1 4 Active Simvastatin 10 MG Oral Tablet (Zocor) TAKE 1 TABLET BY MOUTH EVERYDAY AT BEDTIME 90 Tablet 4 Active Pantoprazole Sodium 40 MG Oral Tablet Delayed Release (Protonix)Indicatio ns:Esophageal reflux TAKE 1 TABLET BY MOUTH IN THE MORNING AND BEFORE BEDTIME 180 Tablet 3 4 Active Levothyroxine Sodium 50 MCG Oral Tablet (Levoxyl)Indication s:Hypothyroidism, unspecified type TAKE 1 TABLET BY MOUTH IN THE MORNING. ON AN EMPTY STOMACH.. 90 Tablet 4 Active Ferrous Sulfate 325 (65 Fe) MG Oral Tablet (Feosol)Indications :Macrocytic anemia TAKE 1 TABLET BY MOUTH EVERY DAY AT 12 90 Tablet 4 Active traMADol HCl 50 MG Oral Tablet (Ultram)Indications :Bilateral primary osteoarthritis of knee Take 1 Tablet by mouth every 12 hours as needed for Pain, Moderate. 60 Tablet 4 Active Cefdinir 300 MG Oral Capsule (Omnicef)Indication s:COPD, group C, by GOLD 2017 classification (HCC),COPD with exacerbation (HCC) Take 1 Capsule by mouth in the morning for 10 days. 10 Capsule 4 01/27/20 24 Active guaiFENesin-Codeine 100-10 MG/5ML Oral Syrup (Robitussin AC)Indications:COPD , group C, by GOLD 2017 classification (HCC),COPD with exacerbation (HCC) Take 5 mL by mouth every 4 hours as needed for Cough. 120 mL 4 Active Cefdinir 300 MG Oral Capsule (Omnicef) Take 1 Capsule by mouth in the morning and 1 Capsule before bedtime. 4 01/17/20 24 Discontinued documented as of this encounter (statuses as of 01/17/2024) Active Problems Problem Noted Date Diagnosed Date [...] as of this encounter (statuses as of 01/17/2024) Resolved Problems Problem Noted Date Diagnosed Date [...] as of this encounter (statuses as of 01/17/2024) Immunizations Name Administration Dates Next Due Pneumococcal [...] Sign Reading Time Taken Comments Blood Pressure 114/76 01/17/2024 8:34 AM EDT Pulse 72 01/17/2024 8:34 AM EDT Temperature 36.3 C (97.3 F) 01/17/2024 8:34 AM ED T Respiratory Rate 16 01/17/2024 8:34 AM EDT Oxygen Saturation 96% 01/17/2024 8:34 AM EDT Inhaled Oxygen Concentration - - Weight 117.8 kg (259 lb 9.6 oz) 01/17/2024 8:34 AM EDT Height 170.2 cm (5' 7") 01/17/2024 8:34 AM EDT Body Mass Index 40.66 01/17/2024 8:34 AM EDT documented in this encounter Functional [...] Progress Notes * Markell Linton MD - 01/17/2024 8:59 AM EDT Images from the original note were not included. Assessment and Plan One week of cough, mild shortness of breath, increased inhaler use. We will treat as a mild COPD exacerbation with cefdinir and cough syrup as below. Patient declined prednisone as she was not done well with this in the past. Lungs are without focal consolidation so we will hold on the chest x-ray at this time. If worsening this will be obtained. Dose reduce cefdinir due to renal function. I do not believe heart failure as a primary contributor due to clear lungs and patient appearing euvolemicoverall. 1. COPD, group C, by GOLD 2017 classification ([facility]) - Cefdinir 300 MG Oral Capsule (Omnicef); Take 1 Capsule by mouth in the morning for 10 days. Dispense: 10 Capsule; Refill: 0 - guaiFENesin-Codeine 100-10 MG/5ML Oral Syrup (Robitussin AC); Take 5 mL by mouth every 4 hours asneeded for Cough. Dispense: 120 mL; Refill: 0 2. COPD with exacerbation ([facility]) - Cefdinir 300 MG Oral Capsule (Omnicef); Take 1 Capsule by mouth in the morning for 10 days. Dispense: 10 Capsule; Refill: 0 - guaiFENesin-Codeine 100-10 MG/5ML Oral Syrup (Robitussin AC); Take 5 mL by mouth every 4 hours asneeded for Cough. Dispense: 120 mL; Refill: 0 3. Chronic kidney disease, stage 4 (severe) ([facility]) 4. Chronic heart failure with preserved ejection fraction ([facility]) Wrap-Up Follow up as needed. History of Present Illness The patient is a 73-year-old female with past medical history of COPD group C by gold 2017 classification, asthma, chronic heart failure, paroxysmal atrial fibrillation, GERD, CKD stage 4 who presents for acute. The patient is a 73-year-old female who presents with one-week of cough, congestion, mild shortnessof breath. She reports symptoms are worse at night. She was somewhat diminished appetite but has been able to stay hydrated. Also reports some sore throat. Denies any chest pain. She has some mild diarrhea but no vomiting. She does continue to take her Anoro Ellipta and p.r.n. albuterol. She did not test for COVID. Physical Exam Vitals: 01/17/24 0834 Temp: 36.3 C (97.3 F) Pulse: 72 Resp: 16 SpO2: 96% BP: 114/76 BMI: 40.65 Physical Exam Physical Exam Vitals reviewed. Constitutional: General: She is not in acute distress. Comments: Using wheelchair for mobility. Cardiovascular: Rate and Rhythm: Normal rate and regular rhythm. Heart sounds: No murmur heard. Pulmonary: Effort: Pulmonary effort is normal. Comments: Scattered wheezes in all 4 quadrants. No focal findings. Musculoskeletal: Cervical back: Neck supple. Right lower leg: No edema. Left lower leg: No edema. Lymphadenopathy: Cervical: No cervical adenopathy. Neurological: General: No focal deficit present. Mental Status: She is alert. This note has been completed in part utilizing [email or web address] Speech Voice Recognition Software. Due to technical limitations of the software, grammatical errors, random word insertions, prounoun errors, and incomplete sentences may occur. Any formal questions or concerns about the content, text, or information contained within the body of this dictation should be directly addressed to the provider for clarification. documented in this encounter Nursing Notes * Mireille Weston MED ASSIST - 01/17/2024 8:43 AM EDT The patient has been properly identified by confirmation of name and date of . Chief Complaint Patient presents with Acute Patient is here today for a cough. Patient has had it on and off for two weeks. Patient is producing a dark green mucus. Reports having trouble sleeping at night due to coughing. Unsure if it is COPD or not. documented in this encounter Plan of Treatment Upcoming Encounters Date Type Department Care Team (Late st Contact Info) Description 01/31/2024 9:00 AM EDT Laboratory Laboratory, [place] [address] [place] [facility] [place] [address] [place] [address] [facility], [place] [id number] 02/07/2024 8:20 AM EDT Office Visit [facility] [place] [address] [facility] [address] Markell Linton MD [address] [place] [facility] [place] [address] 08/09/2024 9:00 AM EDT Office Visit Nephrology, [facility] [address] [place] [address] Chago Todd MD [address] [place] [address] Health Maintenance Due Date Last Done Comments [...] C, by GOLD 2017 classification (HCC)- Primary COPD with exacerbation (HCC) Obstructive chronic bronchitis with exacerbation Chronic kidney disease, stage 4 (severe) (HCC) Chronic heart failure with preserved ejection fraction (HCC) documented in this encounter Advance Directives Documents on File Type Date Recorded Patient Disk And Tape Machine Tender Expl anation Power of Boxing Instructor 04/06/2023 POWER OF A TTORNEY * Full [...] and were consensually agreed upon. Care Teams Head Of Merchandise Buying Relationship Specialty Start Date End Date August, Markell Heller MD [address] [place] [place] [address] PCP - General Family Medicine 03/30/23 documented as of this encounter
--- OUTSIDE RECORDS SUMMARY | 2024-03-16 19:36 | External Medical Summary | Summary of Care ---
Author Name Unknown Organization [facility] Address [address] [place] [address] Phone [phone] Care Team Providers Care Cash Applications Representative Name Role Phone Markell Linton MD Primary Care Provider Reason for Visit * Reason Comments Outpatient Testing Encounter Details Date Type Department Care Team (Late st Contact Info) Description 02/07/2024 9:20 AM EDT Laboratory [facility], [place] [address] [place] [address] [place] [address] [place] [address] Screening for diabetes mellitus; Chronic kidney disease, stage 4 (severe) ([facility]); Dyslipidemia; [employer] Other*[id number]; Macrocytic anemia; Hypothyroidism, unspecified type Allergies Active Allergy Reactions Criticality Noted Date [...] Congestive heart failure due to valvular disease ([facility]) TAKE 1 TABLET BY MOUTH EVERY DAY IN THE MORNING 90 Tablet 3 03/21/2023 Active Amiodarone HCl 200 MG Oral Tablet (Cordarone)Indicatio ns:Paroxysmal atrial fibrillation ([facility]) Take 1 [...] 0.5 % External Cream (Aristocort)Indicati ons:Senile purpura ([facility]) Apply topically to [...] 08/09/2024 9:00 AM EDT Office Visit Nephrology, [facility] [address] [place] [address] Chago Todd MD [address] [facility] [place] [address] 08/21/2024 10:40 AM EDT Office Visit [facility] [address] [place] [id number] AugustMarkell MD [address], [place] [id number] Pending Results Name Type Priority Associated Diagnoses Date /Time HEMOGLOBIN A1C Lab Routine Screening for diabetes mellitus 02/07/2024 8:48 AM EDT COMPREHENSIVE METABOLIC PANEL Lab Routine Chronic kidney disease, stage 4 (severe) (HCC) 02/07/2024 8:48 AM EDT LIPID PANEL WITH DIRECT LDL IF TG IS HIGH Lab Routine Dyslipidemia 02/07/2024 8:48 AM EDT MYCODE SUBSEQUENT ADULT Lab Routine [employer] Other*[id number] 02/07/2024 8:48 AM EDT CBC Lab Routine Macrocytic anemia 02/07/2024 8:48 AM EDT FERRITIN Lab Routine Macrocytic anemia 02/07/2024 8:48 AM EDT IRON SCREEN, INCLUDING TIBC Lab Routine Macrocytic anemia 02/07/2024 8:48 AM EDT TSH WITH FREE T4 IF INDICATED Lab Routine Hypothyroidism, unspecified type 02/07/2024 8:48 AM EDT MYCODE SST1 Lab Routine My[employer] Research Other*[id number] 02/07/2024 8:48 AM EDT MYCODE SST2 Lab Routine My[employer] Other*[id number] 02/07/2024 8:48 AM EDT Health Maintenance Due Date Last Done Comments [...] as of this encounter Visit Diagnoses Diagnosis Screening for diabetes mellitus Chronic kidney disease, stage 4 (severe) (HCC) Dyslipidemia Other and unspecified hyperlipidemia [employer] Other*[id number] Macrocytic anemia Unspecified deficiency anemia Hypothyroidism, unspecified type documented in this encounter Advance Directives Documents on File Type Date Recorded Patient Casino Surveillance Officer Expl anation Power of Environmental Compliance Specialist 04/06/2023 POWER OF A TTORNEY * Full [...] and were consensually agreed upon. Care Teams Cash Applications Representative Relationship Specialty Start Date End Date August, Markell Heller MD [address] [place] [address] PCP - General Family Medicine 03/30/23 documented as of this encounter
--- OUTSIDE RECORDS SUMMARY | 2024-03-16 19:36 | External Medical Summary ---
Author Name Unknown Address Unknown Organization K01:[facility] - [address] [facility] [address] Laboratory Report Ordering Provider Test Date Status JESÚS ADLER 02/07/2024 08:48:59 Final Observation Date Value Abnormality Reference (Units ) Status WBC, Total 02/07/2024 08:48:59 8.90 4.00-10.80 (K/uL) Final RBC 02/07/2024 08:48:59 3.70 3.85-5.15 (M/uL) Final Hemoglobin 02/07/2024 08:48:59 12.4 12.0-15.3 (g/dL) Final HCT 02/07/2024 08:48:59 40.8 36.0-45.2 (%) Final MCV 02/07/2024 08:48:59 110.3 81.5-97.5 (fL) Final MCH 02/07/2024 08:48:59 33.5 27.0-34.0 (pg) Final MCHC 02/07/2024 08:48:59 30.4 32.0-36.0 (g/dL) Final RDW 02/07/2024 08:48:59 15.2 11.5-15.5 (%) Final Platelets 02/07/2024 08:48:59 158 140-400 (K/uL) Final MPV 02/07/2024 08:48:59 11.9 6.6-11.1 (fL) Final Nucleated erythrocytes/100 leukocytes [Ratio] in Blood by Automated count 02/07/2024 08:48:59 0 <=0 (/100 WBCs) Final Performing Location [facility] - [address] [place] [address]
--- OUTSIDE RECORDS SUMMARY | 2024-03-16 19:36 | External Medical Summary | Summary of Care ---
Author Name Unknown Organization [facility] Address [address] [place] [address] Phone [phone] Care Team Providers Care Batch Freezer Operator Name Role Phone AugustMarkell MD Primary Care Provider [phone] Reason for Visit * Reason Comments eRx-Medication Refill Encounter Details Date Type Department Care Team (Late st Contact Info) Description 02/02/2024 Refill [facility] [address] [place] [address] AugustMarkell MD [address] [place] [address] Bilateral primary osteoarthritis of knee Allergies Active Allergy Reactions Criticality Noted Date Comments Azithromycin Medium 06/19/2023 Facial redness, swelling, itching, watery eyes Methylprednisolone Sodium Succ 12/06 Dog Dander Low 03/20/2019 Other reaction(s): Sneezing Food (See Comments) 02/23/2018 Duck eggs Swelling Pollen 08/25/2015 Nystatin 01/17/2019 Allergic reaction Pollen Extract 03/20/2019 Other reaction(s): HAYFEVER documented as of this encounter (statuses as of 02/04/2024) Medications Medication Sig Dispensed Refills Start Date [...] group C, by GOLD 2017 classification ([facility]) Use to nebulize medicaitons 1 Kit 1 05/25/2022 Active Clopidogrel Bisulfate 75 MG Oral Tablet (pLAVix)Indications: Congestive heart failure due to valvular disease ([facility]) TAKE 1 TABLET BY MOUTH EVERY DAY IN THE MORNING 90 Tablet 3 03/21/2023 Active Amiodarone HCl 200 MG Oral Tablet (Cordarone)Indicatio ns:Paroxysmal atrial fibrillation ([facility]) Take 1 Tablet by mouth [...] group C, by GOLD 2017 classification ([facility]) INHALE 1 VIAL EVERY 4 [...] heart failure, unspecified heart failure type ([facility]),PAULETTE (acute kidney injury) ([facility]) TAKE 2 TABLETS BY MOUTH EVERY MORNING 180 Tablet 1 09/19/2023 Active Heartburn Relief 10 MG Oral Tablet (Famotidine)Indicati ons:Gastroesophageal reflux disease without esophagitis TAKE 1 TABLET BY MOUTH EVERY DAY IN THE MORNING 90 Tablet 1 10/03/2023 Active Albuterol Sulfate HFA 108 (90 Base) MCG/ACT Inhalation Aerosol SolutionIndications: COPD, group C, by GOLD 2017 classification ([facility]),Asthma with irreversible airway obstruction, unspecified asthma severity, uncomplicated ([facility]) TAKE 2 PUFFS BY MOUTH [...] 0.5 % External Cream (Aristocort)Indicati ons:Senile purpura ([facility]) Apply topically to affected area [...] Active guaiFENesin-Codeine 100-10 MG/5ML Oral Syrup (Robitussin AC)Indications:COPD, group C, by GOLD 2017 classification ([facility]),COPD with exacerbation ([facility]) Take 5 mL by mouth every 4 hours as needed for Cough. 120 mL 01/17/2024 Active traMADol HCl 50 MG Oral Tablet (Ultram)Indications: Bilateral primary osteoarthritis of knee Take 1 Tablet by mouth every 12 hours as needed for Pain, Moderate. 60 Tablet 02/02/2024 Active documented as of this encounter (statuses as of 02/04/2024) Active Problems Problem Noted Date Diagnosed Date [...] as of this encounter (statuses as of 02/04/2024) Resolved Problems Problem Noted Date Diagnosed Date [...] as of this encounter (statuses as of 02/04/2024) Immunizations Name Administration Dates Next Due Pneumococcal [...] Telephone Encounter - Amaris Rea RPh - 02/04/2024 11:51 AM EDT Refused Prescriptions: Disp Refills traMADol HCl 50 MG Oral Tablet (Ultram) 60 Tab*0 Sig: TAKE 1 TABLET BY MOUTH EVERY 12 HOURS NEEDED FOR PAIN, MODERATE.Refused By: AMARIS REA forRefusal: Duplicate Request documented in this encounter Plan of Treatment Upcoming Encounters Date Type Department Care Team (Late st Contact Info) Description 02/07/2024 8:20 AM EDT Office Visit [facility] [address] [address] AugustMarkell MD [address] [place] [address] 02/07/2024 9:20 AM EDT Laboratory Laboratory, [place] [address] [place] [address] [place] [id number] [place], [facility] [address], [place] [id number] 08/09/2024 9:00 AM EDT Office Visit Nephrology, [facility] [address] [place] [address] Chago Todd MD [address] [place], [place] [address] Health Maintenance Due Date Last Done Comments [...] Documents on File Type Date Recorded Patient Vegetable Tier Expl anation Power of Cloth Seconds Sorter 04/06/2023 POWER OF A TTORNEY * Full [...] and were consensually agreed upon. Care Teams Batch Freezer Operator Relationship Specialty Start Date End Date August, Markell Heller MD [address] [place] [address] PCP - General Family Medicine 03/30/23 documented as of this encounter
--- OUTSIDE RECORDS SUMMARY | 2024-03-16 19:36 | External Medical Summary | Summary of Care ---
Author Name Unknown Organization [facility] Address [address] [place] [address] Phone [phone] Care Team Providers Care Time Piece Repairer Name Role Phone Markell Linton MD Primary Care Provider [phone] Reason for Visit * Reason Onset Date Comments Med Request 02/16/2024 Encounter Details Date Type Department Care Team (Late st Contact Info) Description 02/16/2024 Telephone [facility] [address] [place] [address] AugustMarkell MD [address] [place] [address] Med Request Allergies Active Allergy Reactions Criticality Noted Date Comments Azithromycin Medium 06/19/2023 Facial redness, swelling, itching, watery eyes Methylprednisolone Sodium Succ 12/06 Dog Dander Low 03/20/2019 Other reaction(s): Sneezing Food (See Comments) 02/23/2018 Duck eggs Swelling Pollen 08/25/2015 Nystatin 01/17/2019 Allergic reaction Pollen Extract 03/20/2019 Other reaction(s): HAYFEVER documented as of this encounter (statuses as of 02/16/2024) Medications Medication Sig Dispensed Refills Start Date [...] failure due to valvular disease ([facility]) TAKE 1 TABLET BY MOUTH EVERY DAY IN THE MORNING 90 Tablet 3 03/21/2023 Active Amiodarone HCl 200 MG Oral Tablet (Cordarone)Indicati ons:Paroxysmal atrial fibrillation ([facility]) Take 1 Tablet by mouth in the [...] by GOLD 2017 classification ([facility]) INHALE 1 VIAL EVERY 4 TO 6 [...] failure, unspecified heart failure type ([facility]),PAULETTE (acute kidney injury) ([facility]) TAKE 2 TABLETS BY MOUTH EVERY MORNING [...] unspecified asthma severity, uncomplicated ([facility]) TAKE 2 PUFFS BY MOUTH EVERY 6 HOURS NEEDED FOR WHEEZE 54 g 1 10/16/2023 Active Fluticasone Furoate 100 MCG/ACT Inhalation Aerosol Powder Breath Activated (ARNUITY ellipta) Inhale 1 Puff by mouth in the morning. 90 Each 3 11/30/2023 Active Triamcinolone Acetonide 0.5 % External Cream (Aristocort)Indicat ions:Senile purpura ([facility]) Apply topically to affected area 2 times [...] as of this encounter (statuses as of 02/16/2024) Active Problems Problem Noted Date Diagnosed Date [...] as of this encounter (statuses as of 02/16/2024) Resolved Problems Problem Noted Date Diagnosed Date [...] as of this encounter (statuses as of 02/16/2024) Immunizations Name Administration Dates Next Due Pneumococcal [...] encounter Miscellaneous Notes * Telephone Encounter - Kristin Mondragon PHARM Tech - 02/16/2024 9:06 AM EDT Pharmacy called stating topiramate has two sets of directions. Pharmacy wondering if could send new script with correct directions. Thanks, Kristin Mondragon Client Experience Specialist [facility] ([facility]) 02/16/2024,9:07 AM documented in this encounter Plan of Treatment Upcoming Encounters Date Type Department Care Team (Late st Contact Info) Description 08/09/2024 9:00 AM EDT Office Visit [facility] [address] [place] [id number] Chago Todd MD [address] [place] [address] 08/21/2024 10:40 AM EDT Office [facility] [address] [facility] [phone] Markell Linton MD [address] [facility] [address] Health Maintenance Due Date Last Done Comments [...] shot) (#1) 2023 03/12/2013 GFR 08/07/2024 02/07/2024, 0511/2023, 03/08/2023, Additional history exists Phosphate 08/29/2024 08/30/2023, [...] Documents on File Type Date Recorded Patient Bander And Cellophaner Machine Helper Expl anation Power of Computer Numerical Control Operator 04/06/2023 POWER OF A TTORNEY * [...] and were consensually agreed upon. Care Teams Time Piece Repairer Relationship Specialty Start Date End Date August, Markell Heller MD [address] [facility] [place] [address] PCP - General Family Medicine 03/30/23 documented as of this encounter
--- OUTSIDE RECORDS SUMMARY | 2024-03-16 19:36 | External Medical Summary | Summary of Care ---
Author Name Unknown Organization [facility] Address [address] [place] [address] Phone [phone] Care Team Providers Care Manager Med Surg Name Role Phone AugustEleuterio MD Primary Care Provider [phone] Reason for Visit * Reason Onset Date Comments Medication Refill 01/02/2024 Encounter Details Date Type Department Care Team (Late st Contact Info) Description 01/02/2024 Refill [facility] [address] [place] [address] AugustEleuterio MD [address] [place] [address] Bilateral primary osteoarthritis of knee Allergies Active Allergy Reactions Criticality Noted Date Comments Azithromycin Medium 06/19/2023 Facial redness, swelling, itching, watery eyes Methylprednisolone Sodium Succ 12/06 Dog Dander Low 03/20/2019 Other reaction(s): Sneezing Food (See Comments) 02/23/2018 Duck eggs Swelling Pollen 08/25/2015 Nystatin 01/17/2019 Allergic reaction Pollen Extract 03/20/2019 Other reaction(s): HAYFEVER documented as of this encounter (statuses as of 01/03/2024) Medications Medication Sig Dispensed Refills Start Date [...] :Congestive heart failure due to valvular disease ([facility]) TAKE 1 TABLET BY MOUTH EVERY DAY IN THE MORNING 90 Tablet 3 03/21/2023 Active Amiodarone HCl 200 MG Oral Tablet (Cordarone)Indicati ons:Paroxysmal atrial fibrillation ([facility]) Take 1 Tablet by mouth [...] classification ([facility]) INHALE 1 VIAL EVERY 4 [...] failure, unspecified heart failure type ([facility]),PAULETTE (acute kidney injury) ([facility]) TAKE 2 TABLETS BY MOUTH [...] uncomplicated ([facility]) TAKE 2 PUFFS BY MOUTH [...] 0.5 % External Cream (Aristocort)Indicat ions:Senile purpura ([facility]) Apply topically to affected area [...] BEFORE BEDTIME 180 Tablet 3 12/26/2023 Active traMADol HCl 50 MG Oral Tablet (Ultram)Indications :Bilateral primary osteoarthritis of knee Take 1 Tablet by mouth every 12 hours as needed for Pain, Moderate. 60 Tablet 01/03/2024 Active traMADol HCl 50 MG Oral Tablet (Ultram)Indications :Bilateral primary osteoarthritis of knee Take 1 Tablet by mouth every 12 hours as needed for Pain, Moderate. 60 Tablet 12/04/2023 4 Discontinu ed(Refill) documented as of this encounter (statuses as of 01/03/2024) Active Problems Problem Noted Date Diagnosed Date [...] as of this encounter (statuses as of 01/03/2024) Resolved Problems Problem Noted Date Diagnosed Date [...] as of this encounter (statuses as of 01/03/2024) Immunizations Name Administration Dates Next Due Pneumococcal [...] Telephone Encounter - Eleuterio Lopez MD - 01/03/2024 7:33 AM EDTSigned Prescriptions: Disp Refills traMADol HCl 50 MG Oral Tablet (Ultram) 60 Tab*0 Sig: Take 1 Tablet by mouth every 12 hours as needed for Pain, Moderate.Authorizing Provider: ELEUTERIO LOPEZ------- * Telephone Encounter - Jenae Limon [facility] - 01/02/2024 6:04 PM EDTPending Prescriptions: Disp Refills traMADol HCl 50 MG Oral Tablet (Ultram) 60 Tab*0 Sig: Take 1 Tablet by mouth every 12 hours as needed for Pain, Moderate. * Telephone Encounter - Jenae Limon [facility] - 01/02/2024 6:04 PM EDT I have reviewed the patients controlled substance dispensing history in the Prescription Drug Monitoring Program in compliance with the [facility] regulations before prescribing a controlled substance. PDMP checked on 01/02/2024. Pending Prescriptions: Disp Refills traMADol HCl 50 MG Oral Tablet (Ultram) 60 Tab*0 Sig: Take 1 Tablet by mouth every 12 hours as needed for Pain, Moderate. Last Visit: 10/17/2023 (in office), 04/21/2022 (telemedicine) Next Visit: 02/07/2024 Date medication was last filled: 12/04/2023 Date medication is due for refill: 01/02/2024 [id number] [address] [place] [address] Is this request for a controlled substance? Yes and Urine Drug Screen Not completed Toxicology results: No results found for this or any previous visit. Please approve if appropriate. Thank you, Jenae Limon [facility] Clinical Pharmacist [facility] ([facility]) 01/02/24 6:04 PM [phone] * Telephone Encounter - Kady Morris CPhT - 01/02/2024 6:02 PM EDT High Priority Did you pend patient's preferred pharmacy and medication before forwarding?yes Pharmacy: [id number] [address] [place] [address] Pending Prescriptions: Disp Refills traMADol HCl 50 MG Oral Tablet (Ultram) 60 Tab*0 Sig: Take 1 Tablet by mouth every 12 hours as needed for Pain, Moderate. Last Visit: 10/17/2023 (in office), 04/21/2022 (telemedicine) Next Visit: 02/07/2024 If no future appointments scheduled, and last appointment is greater than a year ago, please schedule patient for a follow-up appointment Last date the medication was ordered: 12/04/23 Is this request for a controlled substance?Yes, What was the last refill date 12/04/23 w/ quantity 60 and dosage 50 mg oral q12 h prn and Urine Drug Screen Not completed Urine [...] Description 01/31/2024 9:00 AM EDT Laboratory Laboratory, [place] [address] [place] [phone] [place] [address] [place] [address] 02/07/2024 8:20 AM EDT Office Visit [place] [address] [place] [phone] Eleuterio Lopez MD [address] [place] [address] 08/09/2024 9:00 AM EDT Office Visit [facility] [address] [place], [place] [address] Chago Todd MD [address] [place], [place] [address] Health Maintenance Due Date Last Done Comments [...] Documents on File Type Date 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 Care Teams Manager Med Surg Relationship Specialty Start Date End Date August, Eleuterio Heller MD [address] [place] [facility] [place] [address] PCP - General Family Medicine 03/30/23 documented as of this encounter
--- OUTSIDE RECORDS SUMMARY | 2024-03-16 19:36 | External Medical Summary ---
Author Name Unknown Address Unknown Organization [id number]:LABORATORY [facility] - [address] [place] [address] Laboratory Report Ordering Provider Test Date Status JESÚS ADLER 02/07/2024 08:48:59 Final Observation Date Value Abnormality Reference (Units ) Status T4, Free 02/07/2024 08:48:59 1.3 0.9-1.7 (n g/dL) Final Performing Location LABORATORY [facility] - [address] [place] [address]
--- OUTSIDE RECORDS SUMMARY | 2024-03-16 19:36 | External Medical Summary | Summary of Care ---
Author Name Unknown Organization [facility] Address [address] [place] [address] Phone [phone] Care Team Providers Care Fisher Dip Net Name Role Phone Markell Linton MD Primary Care Provider Reason for Visit * Reason Comments Acute [...] Description 01/17/2024 9:00 AM EDT Office Visit [facility] [address] [place] [address] Markell Linton MD [address] [place] [address] COPD, group C, by GOLD 2017 classification ([facility])*; COPD with exacerbation ([facility]); Chronic kidney disease, stage 4 (severe) ([facility]); Chronic heart failure with preserved ejection fraction ([facility]) Allergies Active Allergy Reactions Criticality Noted Date [...] , group C, by GOLD 2017 classification ([facility]) Use to nebulize medicaitons 1 Kit 1 3 Active Clopidogrel Bisulfate 75 MG Oral Tablet (pLAVix)Indications :Congestive heart failure due to valvular disease ([facility]) TAKE 1 TABLET BY MOUTH EVERY DAY IN THE MORNING 90 Tablet 3 3 Active Amiodarone HCl 200 MG Oral Tablet (Cordarone)Indicati ons:Paroxysmal atrial fibrillation ([facility]) Take 1 Tablet by mouth in the [...] :COPD, group C, by GOLD 2017 classification ([facility]) INHALE 1 VIAL EVERY 4 TO 6 [...] unspecified heart failure type ([facility]),PAULETTE (acute kidney injury) ([facility]) TAKE 2 TABLETS BY MOUTH EVERY MORNING 180 Tablet 1 4 Active Heartburn Relief 10 MG Oral Tablet (Famotidine)Indicat ions:Gastroesophage al reflux disease without esophagitis TAKE 1 TABLET BY MOUTH EVERY DAY IN THE MORNING 90 Tablet 1 4 Active Albuterol Sulfate HFA 108 (90 Base) MCG/ACT Inhalation Aerosol SolutionIndications :COPD, group C, by GOLD 2017 classification ([facility]),Asthma with irreversible airway obstruction, unspecified asthma severity, uncomplicated ([facility]) TAKE 2 PUFFS BY MOUTH EVERY 6 [...] 0.5 % External Cream (Aristocort)Indicat ions:Senile purpura ([facility]) Apply topically to affected area 2 times [...] by GOLD 2017 classification ([facility]) - Cefdinir 300 MG Oral Capsule (Omnicef); Take 1 Capsule by mouth in the morning for 10 days. Dispense: 10 Capsule; Refill: 0 - guaiFENesin-Codeine 100-10 MG/5ML Oral Syrup (Robitussin AC); Take 5 mL by mouth every 4 hours asneeded for Cough. Dispense: 120 mL; Refill: 0 2. COPD with exacerbation ([facility]) - Cefdinir 300 MG Oral Capsule (Omnicef); Take 1 Capsule by mouth in the morning for 10 days. Dispense: 10 Capsule; Refill: 0 - guaiFENesin-Codeine 100-10 MG/5ML Oral Syrup (Robitussin AC); Take 5 mL by mouth every 4 hours asneeded for Cough. Dispense: 120 mL; Refill: 0 3. Chronic kidney disease, stage 4 (severe) ([facility]) 4. Chronic heart failure with preserved ejection fraction ([facility]) Wrap-Up Follow up as needed. History of [...] note has been completed in part utilizing [email or web address] Speech Voice Recognition Software. 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 Care Teams Fisher Dip Net Relationship Specialty Start Date End Date August, Markell Heller MD [address] [facility] [place] [address] PCP - General Family Medicine 03/30/23 documented as of this encounter
--- OUTSIDE RECORDS SUMMARY | 2024-03-16 19:36 | External Medical Summary ---
Author Name Unknown Address Unknown Organization K01:LABORATORY [facility] - [address] [place] [address] Laboratory Report Ordering Provider Test Date Status JESÚS ADLER 02/07/2024 08:48:59 Final Observation Date Value Abnormality Reference (Units ) Status TSH 02/07/2024 08:48:59 6.46 Above high normal 0. 27-4.20 (uIU/mL) Final Performing Location LABORATORY [facility] - [address] [place] [address]
--- OUTSIDE RECORDS SUMMARY | 2024-03-16 19:36 | External Medical Summary ---
Author Name Unknown Address Unknown Organization K01:LABORATORY [facility] - [address] [place] [address] Laboratory Report Ordering Provider Test Date Status KAYA GUERRERO 02/07/2024 08:48:59 Final Observation Date Value Abnormality Reference (Units ) Status MYCODE SPECIMEN-SST 02/07/2024 08:48:59 Freezing of extracted DNA, whole blood and/or serum. Final Performing Location LABORATORY [facility] - [address] [place] [address]
--- OUTSIDE RECORDS SUMMARY | 2024-03-16 19:36 | External Medical Summary ---
Author Name Unknown Address Unknown Organization K01:[facility] [place] [address] [place] [address] Laboratory Report Ordering Provider Test Date Status KAYA GUERRERO 02/07/2024 08:48:59 Final Observation Date Value Abnormality Reference (Units ) Status MYCODE SPECIMEN-SST 02/07/2024 08:48:59 Freezing of extracted DNA, whole blood and/or serum. Final Performing Location [facility] [address] [facility] [address]
--- OUTSIDE RECORDS SUMMARY | 2024-03-16 19:36 | External Medical Summary ---
Author Name Unknown Address Unknown Organization K01:[facility] [place] [address] [place] [address] Laboratory Report Ordering Provider Test Date Status 02/07/2024 08:48:59 Final Observation Date Value Abnormality Reference (Units ) Status BUN 02/07/2024 08:48:59 34 Above high normal 6-20 (mg/dL) Final Creatinine 02/07/2024 08:48:59 2.1 Above high normal 0.5-1.0 (mg/dL) Final Glomerular filtration rate/1.73 sq M.predicted [Volume Rate/Area] in Serum, Plasma or Blood by Creatinine-based formula (CKD-EPI) 02/07/2024 08:48:59 24 Below low normal >=60 (mL/min) Final eGFR is calculated based on the CKD-EPI 2020 equation. Sodium 02/07/2024 08:48:59 143 135-146 (m mol/L) Final Potassium 02/07/2024 08:48:59 4.5 3.5-5.1 (m mol/L) Final Cl 02/07/2024 08:48:59 109 Above high normal 98 -107 (mmol/L) Final CO2 02/07/2024 08:48:59 23 22-32 (mmo l/L) Final Anion gap 02/07/2024 08:48:59 11 7-15 (mmol /L) Final Glucose 02/07/2024 08:48:59 94 70-120 (mg /dL) Final Albumin 02/07/2024 08:48:59 3.9 3.8-5.0 (g /dL) Final AST (Aspartate aminotransferase) 02/07/2024 08:48:59 21 10-35 (U/L) Fin al Alk Phos 02/07/2024 08:48:59 206 Above high normal 35 -130 (U/L) Final Bilirubin, Total 02/07/2024 08:48:59 0.2 <=1 .2 (mg/dL) Final Calcium 02/07/2024 08:48:59 9.0 8.4-10.2 ( mg/dL) Final Protein 02/07/2024 08:48:59 7.2 6.0-8.3 (g /dL) Final ALT (Alanine aminotransferase) 02/07/2024 08:48:59 13 10-35 (U/L) Colby arevalo Performing Location [facility] - [address] [facility] [address]
--- OUTSIDE RECORDS SUMMARY | 2024-03-16 19:37 | External Medical Summary | Summary of Care ---
Author Name Unknown Organization [facility] Address [address] [place] [address] Phone [phone] Care Team Providers Care Manager Interface Name Role Phone Eleuterio oLpez MD Primary Care Provider Reason for Visit * Reason Onset Date Comments Medication Question 12/19/2023 Encounter Details Date Type Department Care Team (Late st Contact Info) Description 12/19/2023 Telephone [facility] [address] [place] [address] Eleuterio Lopez MD [address] [place] [address] Medication Question Allergies Active Allergy Reactions Criticality Noted Date Comments Azithromycin Medium 06/19/2023 Facial redness, swelling, itching, watery eyes Methylprednisolone Sodium Succ 12/06 Dog Dander Low 03/20/2019 Other reaction(s): Sneezing Food (See Comments) 02/23/2018 Duck eggs Swelling Pollen 08/25/2015 Nystatin 01/17/2019 Allergic reaction Pollen Extract 03/20/2019 Other reaction(s): HAYFEVER documented as of this encounter (statuses as of 12/19/2023) Medications Medication Sig Dispensed Refills Start Date [...] , group C, by GOLD 2017 classification ([facility]) Use to nebulize medicaitons 1 Kit 1 05/25/2022 Active Ferrous Sulfate 325 (65 Fe) MG Oral Tablet (Feosol)Indications :Macrocytic anemia TAKE 1 TABLET BY MOUTH EVERY DAY AT 12 90 Tablet 3 03/08/2023 Active Clopidogrel Bisulfate 75 MG Oral Tablet (pLAVix)Indications :Congestive heart failure due to valvular disease ([facility]) TAKE 1 TABLET BY MOUTH EVERY [...] AT BEDTIME 90 Tablet 1 03/20/2023 Active Amiodarone HCl 200 MG Oral Tablet (Cordarone)Indicati ons:Paroxysmal atrial fibrillation ([facility]) Take 1 Tablet by mouth in the morning. 90 Tablet 3 03/21/2023 Active Levothyroxine Sodium 50 MCG Oral Tablet (Levoxyl)Indication s:Hypothyroidism, unspecified type Take 1 Tablet by mouth in the morning. on an empty stomach.. 90 Tablet 3 03/21/2023 Active Ketoconazole 2 [...] by GOLD 2017 classification ([facility]) INHALE 1 VIAL EVERY 4 TO [...] congestive heart failure, unspecified heart failure type ([facility]),PAULETTE (acute kidney injury) ([facility]) TAKE 2 TABLETS BY MOUTH EVERY [...] unspecified asthma severity, uncomplicated ([facility]) TAKE 2 PUFFS BY MOUTH EVERY 6 HOURS NEEDED FOR WHEEZE 54 g 1 10/16/2023 Active Fluticasone Furoate 100 MCG/ACT Inhalation Aerosol Powder Breath Activated (ARNUITY ellipta) Inhale 1 Puff by mouth in the morning. 90 Each 3 11/30/2023 Active traMADol HCl 50 MG Oral Tablet (Ultram)Indications :Bilateral primary osteoarthritis of knee Take 1 Tablet by mouth every 12 hours as needed for Pain, Moderate. 60 Tablet 12/04/2023 Active Topiramate 50 MG Oral Tablet (topAMAX)Indication s:Chronic daily headache Take 0.5 Tablets by mouth in the morning and 0.5 Tablets at noon and 0.5 Tablets before bedtime. One tab morning, one tab mid day and half tab at bedtime for migraine prevention. 135 Tablet 1 12/06/2023 Active Triamcinolone Acetonide 0.5 % External Cream (Aristocort)Indicat ions:Senile purpura (HCC) Apply topically to affected area 2 times a day. To affected area. 60 g 1 12/19/2023 Active Triamcinolone Acetonide 0.5 % External Cream (Aristocort)Indicat ions:Senile purpura (HCC) Apply topically to affected area 2 times a day. To affected area. 60 g 1 10/17/2023 Discontinu ed(Refill) documented as of this encounter (statuses as of 12/19/2023) Active Problems Problem Noted Date Diagnosed Date [...] as of this encounter (statuses as of 12/19/2023) Resolved Problems Problem Noted Date Diagnosed Date [...] as of this encounter (statuses as of 12/19/2023) Immunizations Name Administration Dates Next Due Pneumococcal [...] Telephone Encounter - Lydia May LPN - 12/19/2023 6:38 PM EDT Spoke with pt and made her aware of message below. Pt stated understanding. * Addendum Note - Eleuterio Lopez MD - 12/19/2023 6:04 PM EDTAddended by: ELEUTERIO LOPEZ on: 12/19/2023 06:04 PM Modules accepted: Orders * Telephone Encounter - Eleuterio Lopez MD - 12/19/2023 6:03 PM EDT Can use triamcinolone cream no more than twice daily for two weeks. If not improving needs seen. Rxsent to [facility] in [place] if more is needed (was last prescribed in September). Eleuterio Lopez MD * Telephone Encounter - Lydia May LPN - 12/19/2023 5:21 PM EDT Spoke with pt. She stated she had this rash on her face about 6 months ago and was treated with a "cream". She states it feels itchy "like poison" rosette. Please advise * Telephone Encounter - Winifred Rene CPhT - 12/19/2023 7:59 AM EDT Pt sister calling in and said 6 months ago pt had a rash on her face and it is starting again. She said she does not know what it causing as none of her meds have changed. She said it is itching likepoison rosette and red on her cheeks. Would like something called in. Requesting high priority. number: [phone] Please advise. Thank you, Winifred Rene CPhT Locker Room Supervisor III [facility] 12/19/2023, 8:00 AM documented in this encounter Plan of Treatment Upcoming Encounters Date Type Department Care Team (Late st Contact Info) Description 01/31/2024 9:00 AM EDT Laboratory Laboratory, [place] [address] [place] [phone] [place] [facility] [address], [place] [phone] 02/07/2024 8:20 AM EDT Office Visit [facility] [place] [address] [place] [facility] [place] [id number] Eleuterio Lopez MD [address], [place] [id number] 08/09/2024 9:00 AM EDT Office Visit [facility] [address] [place] [address] Chago Todd MD [address] [place] [address] Health Maintenance Due Date Last Done Comments Alpha-1 Antitrypsin 1966 Nephrology Referral 1966 PTH 1966 Zoster Vaccines (1 of 2) 1998 Adult Wellness Visit 2014 Pneumococcal Vaccine: 65+ Years (3 of 3 - PPSV23 or PCV20) 07/02/2018 11/25/2016, 07/02/2013 *ADVANCE DIRECTIVE NOT ON FILE 10/06/2018 Depression Screening 12/07/2020 12/08/2019 DXA Scan 06/06/2021 06/06/2014 COVID-19 Vaccine ( - season) 2022 DTap/Tdap Vaccines (2 - Td or Tdap) 07/03/2023 07/02/2013 Influenza Vaccine (FLU shot) (#1) 2023 03/12/2013 GFR 03/01/2024 08/30/2023, 02/22, 09/13/2022, Additional history exists Hgb 03/08/2024 03/08/2023, 08/23, 04/26/2022, Additional history exists TSH 03/08/2024 03/08/2023, 07/10/2020, 05/09/2019, Additional history exists Phosphate 08/29/2024 08/30/2023, [...] as of this encounter Visit Diagnoses Diagnosis Senile purpura (HCC) Other nonthrombocytopenic purpuras documented in this encounter Advance Directives Documents on File Type Date Recorded 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 Care Teams Manager Interface Relationship Specialty Start Date End Date August, Eleuterio Heller MD [address] [facility] [place] [address] PCP - General Family Medicine 03/30/23 documented as of this encounter
--- OUTSIDE RECORDS SUMMARY | 2024-03-16 19:37 | External Medical Summary | Summary of Care ---
Author Name Unknown Organization [facility] Address [address] [place] [address] Phone [phone] Care Team Providers Care Diversity Manager Name Role Phone Markell Linton MD Primary Care Provider [phone] Encounter Details Date Type Department Care Team (Late st Contact Info) Description 12/06/2023 Telephone [facility] [address] [place] [address] Chana Stacy PA-C [address] [place] [address] Allergies Active Allergy Reactions Criticality Noted Date Comments Azithromycin Medium 06/19/2023 Facial redness, swelling, itching, watery eyes Methylprednisolone Sodium Succ 12/06 Dog Dander Low 03/20/2019 Other reaction(s): Sneezing Food (See Comments) 02/23/2018 Duck eggs Swelling Pollen 08/25/2015 Nystatin 01/17/2019 Allergic reaction Pollen Extract 03/20/2019 Other reaction(s): HAYFEVER documented as of this encounter (statuses as of 12/06/2023) Medications Medication Sig Dispensed Refills Start Date [...] heart failure due to valvular disease ([facility]) TAKE 1 TABLET BY MOUTH EVERY DAY [...] Oral Tablet (Cordarone)Indicati ons:Paroxysmal atrial fibrillation ([facility]) Take 1 Tablet by mouth in the [...] [facility]) INHALE 1 VIAL EVERY 4 TO 6 [...] heart failure, unspecified heart failure type ([facility]),PAULETTE (acute kidney injury) ([facility]) TAKE 2 TABLETS BY MOUTH EVERY MORNING [...] ([facility]) TAKE 2 PUFFS BY MOUTH EVERY 6 HOURS NEEDED FOR WHEEZE 54 g 1 10/16/2023 Active Triamcinolone Acetonide 0.5 % External Cream (Aristocort)Indicat ions:Senile purpura ([facility]) Apply topically to affected area 2 times a day. To affected area. 60 g 1 10/17/2023 Active Fluticasone Furoate 100 MCG/ACT Inhalation Aerosol [...] migraine prevention. 135 Tablet 1 12/06/2023 Active Topiramate 50 MG Oral Tablet (topAMAX)Indication s:Chronic daily headache Take 0.5 Tablets by mouth in the morning and 0.5 Tablets at noon and 0.5 Tablets before bedtime. One tab morning, one tab mid day and half tab at bedtime for migraine prevention. 135 Tablet 1 12/04/2023 4 Discontinu ed(Refill) documented as of this encounter (statuses as of 12/06/2023) Active Problems Problem Noted Date Diagnosed Date [...] as of this encounter (statuses as of 12/06/2023) Resolved Problems Problem Noted Date Diagnosed Date [...] as of this encounter (statuses as of 12/06/2023) Immunizations Name Administration Dates Next Due Pneumococcal [...] Telephone Encounter - Chana Stacy PA-C - 12/06/2023 4:36 PM EDTSigned Prescriptions: Disp Refills Topiramate 50 MG Oral Tablet (topAMAX) 135 Ta*1 Sig: Take 0.5 Tablets by mouth in the morning and 0.5 Tablets at noon and 0.5 Tablets before bedtime. One tab morning, one tab mid day and half tab at bedtime for migraine prevention.Authorizing Provider: CHANA STACY documented in this encounter Plan of Treatment Upcoming Encounters Date Type Department Care Team (Late st Contact Info) Description 01/31/2024 9:00 AM EDT Laboratory [facility], [place] [address] [address] Hetal Martin [address] [place] [facility] [place] [address] 02/07/2024 8:20 AM EDT Office Visit Family [facility] [place] [address] [phone] Markell Linton MD [address] [place] [address] 08/09/2024 9:00 AM EDT Office Visit Nephrology, [facility] [address] [facility] [place] [address] Chago Todd MD [address] [facility] [place] [address] Health Maintenance Due Date Last Done Comments Alpha-1 Antitrypsin 1968 Nephrology Referral 1968 PTH 1966 Zoster Vaccines (1 of 2) 1998 Adult Wellness Visit 2014 Pneumococcal Vaccine: 65+ Years (3 of 3 - PPSV23 or PCV20) 07/02/2018 11/25/2016, 07/02/2013 *ADVANCE DIRECTIVE NOT ON FILE 10/06/2018 Depression Screening 12/07/2020 12/08/2019 DXA Scan 06/06/2021 06/06/2014 COVID-19 Vaccine (1 - 2022- season) 2022 DTaP,Tdap,and Td Vaccines (2 - Td or Tdap) 07/03/2023 07/02/2013 Influenza Vaccine (FLU shot) (#1) 2023 03/12/2013 GFR 03/01/2024 08/30/2023, 02/22, 09/13/2022, Additional history exists Hgb 03/08/2024 03/08/2023, 08/23, 04/26/2022, Additional history exists TSH 03/08/2024 03/08/2023, 0710/2020, 05/09/2019, Additional history exists Phosphate 08/29/2024 08/30/2023, [...] Documents on File Type Date Recorded Patient Loading Shovel Oiler Expl anation Power of Platform Architect 04/06/2023 POWER OF A TTORNEY * Full [...] and were consensually agreed upon. Care Teams Diversity Manager Relationship Specialty Start Date End Date August, Markell Heller MD [address] [place] [address] PCP - General Family Medicine 03/30/23 documented as of this encounter
--- OUTSIDE RECORDS SUMMARY | 2024-03-16 19:37 | External Medical Summary | Summary of Care ---
Author Name Unknown Organization [facility] Address [address] [place] [address] Phone [phone] Care Team Providers Care Morgue Keeper Name Role Phone Markell Linton MD Primary Care Provider [phone] Reason for Visit * Reason Onset Date Comments Medication Question 12/19/2023 Encounter Details Date Type Department Care Team (Late st Contact Info) Description 12/19/[address] [facility] [address] [place] [address] Markell Linton MD [address] [place] [address] Medication Question Allergies Active Allergy [...] Tablet (Cordarone)Indicatio ns:Paroxysmal atrial fibrillation ([facility]) [...] severity, uncomplicated ([facility]) TAKE 2 PUFFS BY MOUTH EVERY 6 HOURS NEEDED FOR WHEEZE 54 g 1 10/16/2023 Active Triamcinolone Acetonide 0.5 % External Cream (Aristocort)Indicati ons:Senile purpura ([facility]) Apply topically to affected area [...] 12/04/2023 Active Topiramate 50 MG Oral Tablet (topAMAX)Indications :Chronic daily headache Take 0.5 Tablets by mouth in the morning and 0.5 Tablets at noon and 0.5 Tablets before bedtime. One tab morning, one tab mid day and half tab at bedtime for migraine prevention. 135 Tablet 1 12/06/2023 Active documented as of this encounter (statuses [...] something called in. Requesting high priority. number: [phone] Please advise. Thank you, Winifred Rene CPhT Stope Miner III [facility] 12/19/2023, 8:00 AM documented in this encounter Plan of Treatment Upcoming Encounters Date Type Department Care Team (Late st Contact Info) Description 01/31/2024 9:00 AM EDT Laboratory Laboratory, [address] [address] [facility] [address] [place] [facility] [place] [address] 02/07/2024 8:20 AM EDT Office Visit Family [facility] [place] [address] [facility] [phone] AugustMarkell MD [address] [place] [address] 08/09/2024 9:00 AM EDT Office Visit Nephrology, [facility] [address] [place] [address] Chago Todd MD [address] [place] [address] Health Maintenance Due Date Last Done Comments Alpha-1 Antitrypsin 1966 Nephrology Referral 1966 PTH 1966 Zoster Vaccines (1 of 2) 1998 Adult Wellness Visit 2014 Pneumococcal Vaccine: 65+ Years (3 of 3 - PPSV23 or PCV20) 07/02/2018 11/25/2016, 07/02/2013 *ADVANCE DIRECTIVE NOT ON FILE 10/06/2018 Depression Screening 12/07/2020 12/08/2019 DXA Scan 06/06/2021 06/06/2014 COVID-19 Vaccine (1 - season) 2022 DTap/Tdap Vaccines (2 - [...] Documents on File Type Date Recorded Patient House Visitor Expl anation Power of Tree Climber 04/06/2023 POWER OF A TTORNEY * Full [...] and were consensually agreed upon. Care Teams Morgue Keeper Relationship Specialty Start Date End Date August, Markell Heller MD [address] [place] [address] PCP - General Family Medicine 03/30/23 documented as of this encounter
--- OUTSIDE RECORDS SUMMARY | 2024-03-16 19:37 | External Medical Summary | Summary of Care ---
Author Name Unknown Organization [facility] Address [address] [place] [address] Phone [phone] Care Team Providers Care Automotive Wholesale Parts Advisor Name Role Phone Markell Linton MD Primary Care Provider [phone] Reason for Visit * Reason Comments eRx-Medication Refill Encounter Details Date Type Department Care Team (Late st Contact Info) Description 12/04/[address] [facility] [address] [place] [address] Chana Stacy PAKyC [address] [place] [address] Chronic daily headache Allergies Active Allergy Reactions Criticality Noted Date Comments Azithromycin Medium 06/19/2023 Facial redness, swelling, itching, watery eyes Methylprednisolone Sodium Succ 12/06 Dog Dander Low 03/20/2019 Other reaction(s): Sneezing Food (See Comments) 02/23/2018 Duck eggs Swelling Pollen 08/25/2015 Nystatin 01/17/2019 Allergic reaction Pollen Extract 03/20/2019 Other reaction(s): HAYFEVER documented as of this encounter (statuses as of 12/04/2023) Medications Medication Sig Dispensed Refills Start Date [...] , group C, by GOLD 2017 classification ([facility]) Use to nebulize medicaitons 1 Kit 1 3 Active Ferrous Sulfate 325 (65 Fe) MG Oral Tablet (Feosol)Indications :Macrocytic anemia TAKE 1 TABLET BY MOUTH EVERY DAY AT 12 90 Tablet 3 3 Active Clopidogrel Bisulfate 75 MG Oral Tablet (pLAVix)Indications :Congestive heart failure due to valvular disease ([facility]) TAKE 1 TABLET BY MOUTH [...] MG Oral Tablet (Cordarone)Indicati ons:Paroxysmal atrial fibrillation ([facility]) Take 1 Tablet by mouth in the morning. 90 Tablet 3 3 Active Levothyroxine Sodium 50 MCG Oral Tablet (Levoxyl)Indication s:Hypothyroidism, unspecified type Take 1 Tablet by mouth in the morning. on an empty stomach.. 90 Tablet 3 3 Active Ketoconazole 2 % External Cream APPLY TOPICALLY TO AFFECTED AREA 2 TIMES A DAY FOR 14 DAYS. APPLY TO AFFECTED AREA AFTER DRYING SKIN 60 g 2 4 Active Doxycycline Hyclate 100 MG Oral Capsule Take 1 Capsule by mouth in the morning and 1 Capsule before bedtime. 4 Active Cefdinir 300 MG Oral Capsule (Omnicef) Take 1 Capsule by mouth in the morning and 1 Capsule before bedtime. 4 Active Ipratropium-Albuter ol 0.5-2.5 (3) MG/3ML Inhalation Solution (Duoneb)Indications :COPD, group C, by GOLD 2017 classification ([facility]) INHALE 1 VIAL EVERY 4 [...] congestive heart failure, unspecified heart failure type ([facility]),PAULETTE (acute kidney injury) ([facility] [...] unspecified asthma severity, uncomplicated ([facility]) TAKE 2 PUFFS BY MOUTH EVERY 6 HOURS NEEDED FOR WHEEZE 54 g 1 4 Active Triamcinolone Acetonide 0.5 % External Cream (Aristocort)Indicat ions:Senile purpura ([facility]) Apply topically to affected area 2 times a day. To affected area. 60 g 1 4 Active Fluticasone Furoate 100 MCG/ACT Inhalation Aerosol Powder Breath Activated (ARNUITY ellipta) Inhale 1 Puff by mouth in the morning. 90 Each 3 4 Active traMADol HCl 50 MG Oral Tablet (Ultram)Indications :Bilateral primary osteoarthritis of knee Take 1 Tablet by mouth every 12 hours as needed for Pain, Moderate. 60 Tablet 4 Active Topiramate 50 MG Oral Tablet (topAMAX)Indication s:Chronic daily headache Take 0.5 Tablets by mouth in the morning and 0.5 Tablets at noon and 0.5 Tablets before bedtime. One tab morning, one tab mid day and half tab at bedtime for migraine prevention. 135 Tablet 1 4 Active Topiramate 50 MG Oral Tablet (Topamax)Indication s:Chronic daily headache One tab morning, one tab mid day and half tab at bedtime for migraine prevention 225 Tablet 1 4 12/04/19 24 Discontinued documented as of this encounter (statuses as of 12/04/2023) Active Problems Problem Noted Date Diagnosed Date [...] as of this encounter (statuses as of 12/04/2023) Resolved Problems Problem Noted Date Diagnosed Date [...] as of this encounter (statuses as of 12/04/2023) Immunizations Name Administration Dates Next Due Pneumococcal [...] Telephone Encounter - Chana Stacy PA-C - 12/04/2023 10:39 AM EDTSigned Prescriptions: Disp Refills Topiramate 50 MG Oral Tablet (topAMAX) 135 Ta*1 Sig: Take 0.5 Tablets by mouth in the morning and 0.5 Tablets at noon and 0.5 Tablets before bedtime. One tab morning, one tab mid day and half tab at bedtime for migraine prevention. Authorizing Provider: CHANA STACY * Telephone Encounter - Sabrina Pacheco LPN - 12/04/2023 9:26 AM EDTPending Prescriptions: Disp Refills Topiramate 50 MG Oral Tablet [Pharmacy Med*225 Ta*1 Sig: TAKE ONE TAB IN THE MORNING, ONE TAB MID DAY AND HALF TAB AT BEDTIME FOR MIGRAINE PREVENTION * Telephone Encounter - Anel Leo - 12/04/2023 4:12 AM EDTPending Prescriptions: Disp Refills Topiramate 50 MG Oral Tablet [Pharmacy Med*225 Ta*1 Sig: TAKE ONE TAB IN THE MORNING, ONE TAB MID DAY AND HALF TAB AT BEDTIME FOR MIGRAINE PREVENTION documented in this encounter Plan of Treatment Upcoming Encounters Date Type Department Care Team (Late st Contact Info) Description 01/31/2024 9:00 AM EDT Laboratory Laboratory, [place] [address] [place] [address] [facility] [address] [place], [place] [phone] 02/07/2024 8:20 AM EDT Office Visit [facility] [address] [place] [address] Markell Linton MD [address] [place] [address] 08/09/2024 9:00 AM EDT Office Visit [facility] [address] [place] [address] Chago Todd MD [address] [place] [address] Health Maintenance Due Date Last Done Comments Alpha-1 Antitrypsin 1968 Nephrology Referral 1966 PTH 1966 Zoster Vaccines (1 of 2) 1998 Adult Wellness Visit 2014 Pneumococcal Vaccine: 65+ Years (3 of 3 - PPSV23 or PCV20) 07/02/2018 11/25/2016, 07/02/2013 *ADVANCE DIRECTIVE NOT ON FILE 10/06/2018 Depression Screening 12/07/2020 12/08/2019 DXA Scan 06/06/2021 06/06/2014 COVID-19 Vaccine ( - season) 2022 DTaP,Tdap,and Td Vaccines (2 - [...] Documents on File Type Date Recorded Patient Stitch Burnisher Expl anation Power of Strainer Tender 04/06/2023 POWER OF A TTORNEY * Full [...] and were consensually agreed upon. Care Teams Automotive Wholesale Parts Advisor Relationship Specialty Start Date End Date August, Markell Heller MD [address] [address] PCP - General Family Medicine 03/30/23 documented as of this encounter
--- OUTSIDE RECORDS SUMMARY | 2024-03-16 19:37 | External Medical Summary | Summary of Care ---
Author Name Unknown Organization [facility] Address [address] [place] [address] Phone [phone] Care Team Providers Care Male Infertility Specialist Name Role Phone AugustEleuterio MD Primary Care Provider [phone] Reason for Visit * Reason Comments eRx-Medication Refill Encounter Details Date Type Department Care Team (Late st Contact Info) Description 12/23/2023 Refill [facility] [address] [place] [address] AugustEleuterio MD [address] [place] [address] Esophageal reflux Allergies Active Allergy Reactions Criticality Noted Date Comments Azithromycin Medium 06/19/2023 Facial redness, swelling, itching, watery eyes Methylprednisolone Sodium Succ 12/06 Dog Dander Low 03/20/2019 Other reaction(s): Sneezing Food (See Comments) 02/23/2018 Duck eggs Swelling Pollen 08/25/2015 Nystatin 01/17/2019 Allergic reaction Pollen Extract 03/20/2019 Other reaction(s): HAYFEVER documented as of this encounter (statuses as of 12/27/2023) Medications Medication Sig Dispensed Refills Start Date [...] failure due to valvular disease ([facility]) TAKE 1 TABLET BY MOUTH EVERY DAY IN THE MORNING 90 Tablet 3 3 Active Amiodarone HCl 200 MG Oral Tablet (Cordarone)Indicati ons:Paroxysmal atrial fibrillation ([facility]) Take 1 Tablet by mouth in [...] GOLD 2017 classification ([facility]) INHALE 1 VIAL EVERY 4 TO [...] failure, unspecified heart failure type ([facility]),PAULETTE (acute kidney injury) ([facility]) TAKE 2 TABLETS BY MOUTH EVERY MORNING 180 Tablet 1 4 Active Heartburn Relief 10 MG Oral Tablet (Famotidine)Indicat ions:Gastroesophage al reflux disease without esophagitis TAKE 1 TABLET BY MOUTH EVERY DAY IN THE MORNING 90 Tablet 1 4 Active Albuterol Sulfate HFA 108 (90 Base) MCG/ACT Inhalation Aerosol SolutionIndications :COPD, group C, by GOLD 2017 classification ([facility]),Asthma with irreversible airway obstruction, unspecified asthma severity, uncomplicated ([facility]) TAKE 2 PUFFS BY MOUTH EVERY [...] 0.5 % External Cream (Aristocort)Indicat ions:Senile purpura ([facility]) Apply topically to affected area 2 times a day. To affected area. 60 g 1 4 Active Simvastatin 10 MG Oral Tablet (Zocor) TAKE 1 TABLET BY MOUTH EVERYDAY AT BEDTIME 90 Tablet 4 Active Pantoprazole Sodium 40 MG Oral Tablet Delayed Release (Protonix)Indicatio ns:Esophageal reflux TAKE 1 TABLET BY MOUTH IN THE MORNING AND BEFORE BEDTIME 180 Tablet 3 4 Active Pantoprazole Sodium 40 MG Oral Tablet Delayed Release (Protonix)Indicatio ns:Esophageal reflux Take 1 Tablet by mouth in the morning and 1 Tablet before bedtime. 180 Tablet 1 3 12/26/19 24 Discontinued Simvastatin 10 MG Oral Tablet (Zocor) TAKE 1 TABLET BY MOUTH EVERYDAY AT BEDTIME 90 Tablet 1 3 12/26/19 24 Discontinued documented as of this encounter (statuses as of 12/27/2023) Active Problems Problem Noted Date Diagnosed Date [...] as of this encounter (statuses as of 12/27/2023) Resolved Problems Problem Noted Date Diagnosed Date [...] as of this encounter (statuses as of 12/27/2023) Immunizations Name Administration Dates Next Due Pneumococcal [...] encounter Miscellaneous Notes * Telephone Encounter - Martina Leo - 12/27/2023 7:28 PM EDT Received message from [facility] regarding patient needing labs. Patient was notified. Unable to reach patient, as there was no answer and no VM available to leave message. Letter was created to be sent out to the patient. * Telephone Encounter - Darren Lezama [facility] - 12/26/2023 7:31 AM EDTSigned Prescriptions: Disp Refills Simvastatin 10 MG Oral Tablet (Zocor) 90 Tab*0 Sig: TAKE 1 TABLET BY MOUTH EVERYDAY AT BEDTIME Authorizing Provider: ELEUTERIO LOPEZ Ordering User: DARREN LEZAMA Pantoprazole Sodium 40 MG Oral Tablet Idania*180 Ta*3 Sig: TAKE 1 TABLET BY MOUTH IN THE MORNING AND BEFORE BEDTIME Authorizing Provider: ELEUTERIO LOPEZ Order ing User: DARREN LEZAMA * Telephone Encounter - Darren Lezama [facility] - 12/26/2023 7:30 AM EDT Provided 90 days supply with 0 refill(s). Per refill protocol patient should have lipid panel on file within past year. Reviewed AMP report, Care Gaps/Health Maintenance, medications list, and for any routine labs typically ordered for this patient. Lab orders placed. Please contact patient to advise of labs ordered for blood draw. Recommend patient to fast if able for labs. Patient may still have water and regular medications. Advise to obtain labs before her scheduled office visit 02/07/2024. Thanks, Darren Lezama, PharmD Clinical Pharmacist [facility] [phone] 12/26/2023 7:30 AM documented in this encounter Plan of Treatment Upcoming Encounters Date Type Department Care Team (Late st Contact Info) Description 01/31/2024 9:00 AM EDT Laboratory Laboratory, [place] [address] [place] [facility] [place] [phone] [facility] [address], [place] [id number] 02/07/2024 8:20 AM EDT Office Visit [facility], [place] [address] [place] [facility] [place] [phone] Eleuterio Lopez MD [address] [facility] [place] [id number] 08/09/2024 9:00 AM EDT Office Visit [facility] [address] [place] [address] Chago Todd MD [address] [place] [address] Health Maintenance Due Date Last Done Comments [...] Tdap) 07/03/2023 07/02/2013 COVID-19 Vaccine (1 - 2022- season) 2023 Influenza Vaccine (FLU shot) (#1) [...] as of this encounter Visit Diagnoses Diagnosis Esophageal reflux documented in this encounter Advance Directives Documents on File Type Date Recorded Patient Broadcast Transmitter Operator Expl anation Power of Tire Care Manager 04/06/2023 POWER OF A TTORNEY * [...] and were consensually agreed upon. Care Teams Male Infertility Specialist Relationship Specialty Start Date End Date August, Eleuterio Heller MD [address] [facility] [place] [address] PCP - General Family Medicine 03/30/23 documented as of this encounter
--- OUTSIDE RECORDS SUMMARY | 2024-03-16 19:37 | External Medical Summary | Summary of Care ---
Author Name Unknown Organization [facility] Address [address] [place] [address] Phone [phone] Care Team Providers Care Hot Strip Mill Inspector Name Role Phone Markell Linton MD Primary Care Provider Reason for Visit * Reason Comments Rash Pt states that she h as bruising on both arms and it is itchy. She states that she not used anything for it. Encounter Details Date Type Department Care Team (Late st Contact Info) Description 10/17/2023 8:40 AM EDT Office Visit [facility] [address] [place] [address] AugustMarkell MD [address] [place] [address] Senile purpura (HCC)* Allergies Active Allergy Reactions Criticality Noted Date Comments Azithromycin Medium 06/19/2023 Facial redness, swelling, itching, watery eyes Methylprednisolone Sodium Succ 12/06 Dog Dander Low 03/20/2019 Other reaction(s): Sneezing Food (See Comments) 02/23/2018 Duck eggs Swelling Pollen 08/25/2015 Nystatin 01/17/2019 Allergic reaction Pollen Extract 03/20/2019 Other reaction(s): HAYFEVER documented as of this encounter (statuses as of 10/17/2023) Medications Medication Sig Dispensed Refills Start Date [...] OPD, group C, by GOLD 2017 classification ([facility]) 1 puff each morning 36 g 1 06/29/2023 Active Doxycycline Hyclate 100 MG Oral Capsule [...] THE MORNING 90 Tablet 1 10/03/2023 Active traMADol HCl 50 MG Oral Tablet (Ultram)Indications: Bilateral primary osteoarthritis of knee Take 1 Tablet by mouth every 12 hours as needed for Pain, Moderate. 60 Tablet 10/04/2023 Active Albuterol Sulfate HFA 108 (90 Base) MCG/ACT Inhalation Aerosol SolutionIndications: COPD, group C, by GOLD 2017 classification ([facility]),Asthma with irreversible airway obstruction, unspecified asthma severity, uncomplicated ([facility]) TAKE 2 PUFFS BY MOUTH EVERY 6 HOURS NEEDED FOR WHEEZE 54 g 1 10/16/2023 Active Triamcinolone Acetonide 0.5 % External Cream (Aristocort)Indicati ons:Senile purpura ([facility]) Apply topically to affected area 2 times a day. To affected area. 60 g 1 10/17/2023 Active documented as of this encounter (statuses as of 10/17/2023) Active Problems Problem Noted Date Diagnosed Date [...] as of this encounter (statuses as of 10/17/2023) Resolved Problems Problem Noted Date Diagnosed Date [...] as of this encounter (statuses as of 10/17/2023) Immunizations Name Administration Dates Next Due Pneumococcal [...] Sign Reading Time Taken Comments Blood Pressure 112/64 10/17/2023 8:33 AM EDT Pulse 54 10/17/2023 8:33 AM EDT Temperature 36.1 C (97 F) 10/17/2023 8:33 AM EDT Respiratory Rate 18 10/17/2023 8:33 AM EDT Oxygen Saturation 97% 10/17/2023 8:33 AM EDT Inhaled Oxygen Concentration - - Weight - - Height 170.2 cm (5' 7") 10/17/2023 8:33 AM EDT Body Mass Index - - documented in [...] Progress Notes * Markell Linton MD - 10/17/2023 8:35 AM EDT Images from the original note were not included. Assessment and Plan 1. Senile purpura (HCC) Senile purpura with overlying excoriation. Reassurance provided. Triamcinolone to assist with itch. - Triamcinolone Acetonide 0.5 % External Cream (Aristocort); Apply topically to affected area 2 times a day. To affected area. Dispense: 60 g; Refill: 1 Wrap-Up Follow up as needed. History of Present Illness The patient is a 73 year old female with past medical history of dyslipidemia, COPD, HFpEF, paroxysmal atrial fibrillation, obesity, history of TAVR, obesity, CKD4 who presents for acute. Ecchymosis of the dorsal aspect of the forearms bilaterally. Present for a couple of weeks. Itchy at times. Physical Exam Vitals: 10/17/23 0833 Temp: 36.1 C (97 F) Pulse: 54 Resp: 18 SpO2: 97% BP: 112/64 Physical Exam Physical Exam Vitals reviewed. Constitutional: General: She is not in acute distress. Skin: Comments: Purpura of the dorsal aspect of the forearms bilaterally. Neurological: Mental Status: She is alert. This note has been completed in part utilizing [employer] Speech Voice Recognition Software. Due to technical limitations of the software, grammatical errors, random word insertions, prounoun errors, and incomplete sentences may occur. Any formal questions or concerns about the content, text, or information contained within the body of this dictation should be directly addressed to the provider for clarification. documented in this encounter Nursing Notes * Nikki Navarro LPN - 10/17/2023 8:32 AM EDT Celia Marshall is a 73 year old female who presents today for Chief Complaint Patient presents with Bruising Pt states that she has bruising on left arm documented in this encounter Plan of Treatment Upcoming Encounters Date Type Department Care Team (Late st Contact Info) Description 01/31/2024 9:00 AM EDT Laboratory Laboratory, [place] [address] [place] [facility] [place] [phone] [facility] [address] [place] [facility] [place] [address] 02/07/2024 8:20 AM EDT [facility] [address] [facility] [place] [phone] Markell Linton MD [address] [facility] [place] [id number] 08/09/2024 9:00 AM EDT Office Visit Nephrology, [place] [address] [place] [address] Chago Todd MD [address] [place] [address] Health Maintenance Due Date Last Done Comments Alpha-1 Antitrypsin 1966 Nephrology Referral 1968 PTH 1966 Zoster Vaccines (1 of 2) 1998 Pneumococcal Vaccine: 65+ Years (3 of 3 - PPSV23 or PCV20) 07/02/2018 11/25/2016, 07/02/2013 *ADVANCE DIRECTIVE NOT ON FILE 10/06/2018 Depression Screening 12/07/2020 12/08/2019 DXA Scan 06/06/2021 06/06/2014 COVID-19 Vaccine (1 - season) 2022 DTaP,Tdap,and Td Vaccines (2 - Td or Tdap) 07/03/2023 07/02/2013 Influenza Vaccine (FLU shot) (Season Ended) 2023 03/12/2013 GFR 03/01/2024 08/30/2023, 02/22, 09/13/2022, Additional history exists Hgb 03/08/2024 03/08/2023, 08/23, 04/26/2022, Additional history exists TSH 03/08/2024 03/08/2023, 07/0 10/2020, 05/09/2019, Additional history exists Phosphate 08/29/2024 08/30/2023, 11/17/2020 Albumin/Creatinine Ratio 09/05/2024 09/06/2023, 12/24 O2 ASSESSMENT COMPLETED IN PAST YEAR FOR COPD 09/05/2024 09/06/2023 Colonoscopy Discontinued 07/18/2018 Colorectal Cancer Screening Discontinued Cologuard Discontinued Fecal Occult Blood Test Discontinued GARDASIL-HPV IMMUNIZATION SERIES Aged Out No longer [...] this encounter Visit Diagnoses Diagnosis Senile purpura (HCC)- Primary Other nonthrombocytopenic purpuras documented in this encounter Advance Directives Documents on File Type Date Recorded Patient Acoustical Carpenter Expl anation Power of Shoe Repairer Helper 04/06/2023 POWER OF A TTORNEY * Full [...] and were consensually agreed upon. Care Teams Hot Strip Mill Inspector Relationship Specialty Start Date End Date August, Markell Heller MD [address] [place] [address] PCP - General Family Medicine 03/30/23 documented as of this encounter
--- OUTSIDE RECORDS SUMMARY | 2024-03-16 19:37 | External Medical Summary | Summary of Care ---
Author Name Unknown Organization [facility] Address [address] [place] [address] Phone [phone] Care Team Providers Care International First Officer Name Role Phone Eleuterio Lopez MD Primary Care Provider [phone] Reason for Visit * Reason Onset Date Comments Medication Question 12/19/2023 Encounter Details Date Type Department Care Team (Late st Contact Info) Description 12/19/2023 Telephone [facility] [address] [place] [address] Eleuterio Lopez MD [address] [place] [address] Medication Question Allergies Active Allergy [...] GOLD 2017 classification ([facility]) Use to nebulize medicaitons 1 Kit 1 05/25/2022 Active Ferrous Sulfate 325 (65 Fe) MG Oral Tablet (Feosol)Indications :Macrocytic anemia TAKE 1 TABLET BY MOUTH EVERY DAY AT 12 90 Tablet 3 03/08/2023 Active Clopidogrel Bisulfate 75 MG Oral Tablet (pLAVix)Indications :Congestive heart failure due to valvular disease ([facility]) TAKE 1 TABLET BY MOUTH EVERY DAY [...] MG Oral Tablet (Cordarone)Indicati ons:Paroxysmal atrial fibrillation ([facility]) Take 1 Tablet by mouth in the [...] GOLD 2017 classification ([facility]) INHALE 1 VIAL EVERY 4 TO 6 [...] congestive heart failure, unspecified heart failure type ([facility]),PAULETTE (acute kidney injury) ([facility]) TAKE 2 TABLETS BY MOUTH EVERY MORNING 180 Tablet 1 09/19/2023 Active Heartburn Relief 10 MG Oral Tablet (Famotidine)Indicat ions:Gastroesophage al reflux disease without esophagitis TAKE 1 TABLET BY MOUTH EVERY DAY IN THE MORNING 90 Tablet 1 10/03/2023 Active Albuterol Sulfate HFA 108 (90 Base) MCG/ACT Inhalation Aerosol SolutionIndications :COPD, group C, by GOLD 2017 classification ([facility]),Asthma with irreversible airway obstruction, unspecified asthma severity, uncomplicated ([facility]) TAKE 2 PUFFS BY MOUTH EVERY 6 [...] If not improving needs seen. Rxsent to [facility] in [place] if more is needed (was last prescribed [...] something called in. Requesting high priority. number: [phone] Please advise. Thank you, Winifred Rene CPhT Sales Agent Financial Report Service III [facility] ([facility]) 12/19/2023, 8:00 AM documented in this encounter Plan of Treatment Upcoming Encounters Date Type Department Care Team (Late st Contact Info) Description 01/31/2024 9:00 AM EDT Laboratory Laboratory, [place] [address] [place] [address] [facility] [address] [place] [address] 02/07/2024 8:20 AM EDT Office Visit [place] [address] [place] [phone] AugustEleuterio MD [address] [place] [address] 08/09/2024 9:00 AM EDT Office Visit [facility] [address] [place] [address] Chago Todd MD [address] [place] [address] Health Maintenance Due Date Last Done Comments [...] Documents on File Type Date Recorded Patient Observer Electrical Prospecting Expl anation Power of Forensics Team Director 04/06/2023 POWER OF A TTORNEY * Full [...] and were consensually agreed upon. Care Teams International First Officer Relationship Specialty Start Date End Date August, Eleuterio Heller MD [address] [place] [address] PCP - General Family Medicine 03/30/23 documented as of this encounter
--- OUTSIDE RECORDS SUMMARY | 2024-03-16 19:37 | External Medical Summary | Summary of Care ---
Author Name Unknown Organization [facility] Address [address] [place] [address] Phone [phone] Care Team Providers Care Life Sciences Instructor Name Role Phone AugustEleuterio MD Primary Care Provider [phone] Reason for Visit * Reason Onset Date Comments Medication Refill 12/01/2023 Encounter Details Date Type Department Care Team (Late st Contact Info) Description 12/01/2023 Refill Located Within [facility] [address] [place] [address] AugustEleuterio MD [address] [place] [address] Bilateral primary osteoarthritis of knee [...] bedtime for migraine prevention, Reported on 06/19/2023 Doxycycline Hyclate 100 MG Oral Capsule Take [...] for Pain, Moderate. 60 Tablet 12/04/2023 Active traMADol HCl 50 MG Oral Tablet (Ultram)Indications :Bilateral primary osteoarthritis of knee Take 1 Tablet by mouth every 12 hours as needed for Pain, Moderate. 60 Tablet 11/02/2023 Discontinu ed(Refill) documented as of this encounter [...] Telephone Encounter - Eleuterio Lopez MD - 12/04/2023 7:17 AM EDTSigned Prescriptions: Disp Refills traMADol HCl 50 MG Oral Tablet (Ultram) 60 Tab*0 Sig: Take 1 Tablet by mouth every 12 hours as needed for Pain, Moderate.Authorizing Provider: ELEUTERIO LOPEZ------- * Telephone Encounter - Corby Tate [facility] - 12/03/2023 7:18 AM EDTPending Prescriptions: Disp Refills traMADol HCl 50 MG Oral Tablet (Ultram) 60 Tab*0 Sig: Take 1 Tablet by mouth every 12 hours as needed for Pain, Moderate. * Telephone Encounter - Corby Tate [facility] - 12/03/2023 7:17 AM EDT I have reviewed the patients controlled substance dispensing history in the Prescription Drug Monitoring Program in compliance with the [facility] regulations before prescribing a controlled substance. PDMP checked on 12/03/2023. Pending Prescriptions: Disp Refills traMADol HCl 50 MG Oral Tablet (Ultram) 60 Tab*0 Sig: Take 1 Tablet by mouth every 12 hours as needed for Pain, Moderate. Last Visit: 10/17/2023 (in office), 04/21/2022 (telemedicine) Next Visit: 02/07/2024 Date medication was last filled: 11/02/23 Date medication is due for refill: 12/01/23 [id number] [address] [place] [address] Is this request for a controlled substance? Yes and Urine Drug Screen Not completed Toxicology results: No results found for this or any previous visit. Please approve if appropriate. Thank You, Corby Douglas [facility] Clinical Pharmacist Centralized Clinical Pharmacy Services ([facility]) 12/03/2023, 7:17 AM * Telephone Encounter - Evelyne Patrick PHARM Tech - 12/01/2023 10:04 AM EDT Did you pend patient's preferred pharmacy and medication before forwarding?yes Pharmacy: [id number] [address] [facility] Pending Prescriptions: Disp Refills traMADol HCl 50 [...] appointment Last date the medication was ordered: 11/02/2023 Is this request for a controlled substance?Yes, What was the last refill date 11/02/23 w/ quantity 60 and dosage 50 mg [...] LDLDIRECT NOT APPLICABLE 05/29/2015 08:25 AM ALT 16 08/30/2023 08:37 AM ALT 12 06/05/2019 03:45 PM documented in this encounter Plan of Treatment Upcoming Encounters Date Type Department Care Team (Late st Contact Info) Description 01/31/2024 9:00 AM EDT Laboratory Laboratory, [place] [address] [place] [facility] [place] [phone] Hetal [place] [address] [facility] [place] [address] 02/07/2024 8:20 AM EDT [facility] [address] [facility] [place] [phone] Eleuterio Lopez MD [address] [place] [facility] [place] [address] 08/09/2024 9:00 AM EDT Office Visit Nephrology, [address] [place] [address] Chago Todd MD [address] [place] [address] Health Maintenance Due Date Last Done Comments Alpha-1 Antitrypsin 1966 Nephrology Referral 1968 PTH 1966 Zoster Vaccines (1 of 2) 1998 Adult Wellness Visit 2014 Pneumococcal Vaccine: 65+ Years (3 of 3 - PPSV23 or PCV20) 07/02/2018 11/25/2016, 07/02/2013 *ADVANCE DIRECTIVE NOT ON FILE 10/06/2018 Depression Screening 12/07/2020 12/08/2019 DXA Scan 06/06/2021 06/06/2014 COVID-19 Vaccine ( - 2022- season) 2022 DTaP,Tdap,and Td Vaccines [...] Documents on File Type Date Recorded Patient Bag Maker Expl anation Power of Mobile Patrol Officer 04/06/2023 POWER OF A TTORNEY * Full [...] and were consensually agreed upon. Care Teams Life Sciences Instructor Relationship Specialty Start Date End Date August, Eleuterio Heller MD [address] [place] [address] PCP - General Family Medicine 03/30/23 documented as of this encounter
--- OUTSIDE RECORDS SUMMARY | 2024-03-16 19:37 | External Medical Summary | Summary of Care ---
Author Name Unknown Organization [facility] Address [address] [place] [address] Phone [phone] Care Team Providers Care Infrastructure Solutions Architect Name Role Phone Eleuterio Lopez MD Primary Care Provider Reason for Visit * Reason Comments eRx-Medication Refill Encounter Details Date Type Department Care Team (Late st Contact Info) Description 10/16/2023 Refill [facility] [address] [place] [address] Chana Stacy PAKyC [address] [place] [address] COPD, group C, by GOLD 2017 classification ([facility]); Asthma with irreversible airway obstruction, unspecified asthma severity, uncomplicated ([facility]) Allergies Active Allergy Reactions Criticality Noted Date Comments Azithromycin Medium 06/19/2023 Facial redness, swelling, itching, watery eyes Methylprednisolone Sodium Succ 12/06 Dog Dander Low 03/20/2019 Other reaction(s): Sneezing Food (See Comments) 02/23/2018 Duck eggs Swelling Pollen 08/25/2015 Nystatin 01/17/2019 Allergic reaction Pollen Extract 03/20/2019 Other reaction(s): HAYFEVER documented as of this encounter (statuses as of 10/16/2023) Medications Medication Sig Dispensed Refills Start Date [...] , group C, by GOLD 2017 classification ([facility]) Use to nebulize medicaitons 1 Kit 1 3 Active Ferrous Sulfate 325 (65 Fe) MG Oral Tablet (Feosol)Indications :Macrocytic anemia TAKE 1 TABLET BY MOUTH EVERY DAY AT 12 90 Tablet 3 3 Active Clopidogrel Bisulfate 75 MG Oral Tablet (pLAVix)Indications :Congestive heart failure due to valvular disease ([facility]) TAKE 1 TABLET BY MOUTH [...] DRYING SKIN 60 g 2 4 Active Topiramate 50 MG Oral Tablet (Topamax)Indication s:Chronic daily headache One tab morning, one tab mid day and half tab at bedtime for migraine prevention 225 Tablet 1 4 Active Additional Information Patient taking differently: 25 mg Oral TID(AM/NOON/HS), One tab morning, one tab mid day and half tab at bedtime for migraine prevention, Reported on 06/19/2023 Fluticasone Propionate HFA 110 MCG/ACT Inhalation AerosolIndications: COPD, group C, by GOLD 2017 classification ([facility]) 1 puff each morning 36 g 1 4 Active Doxycycline Hyclate 100 MG Oral [...] classification ([facility]) INHALE 1 VIAL EVERY 4 [...] congestive heart failure, unspecified heart failure type ([facility]),PAULETTE (acute kidney injury) ([facility]) TAKE 2 TABLETS BY MOUTH EVERY MORNING 180 Tablet 1 4 Active Heartburn Relief 10 MG Oral Tablet (Famotidine)Indicat ions:Gastroesophage al reflux disease without esophagitis TAKE 1 TABLET BY MOUTH EVERY DAY IN THE MORNING 90 Tablet 1 4 Active traMADol HCl 50 MG Oral Tablet (Ultram)Indications :Bilateral primary osteoarthritis of knee Take 1 Tablet by mouth every 12 hours as needed for Pain, Moderate. 60 Tablet 4 Active Albuterol Sulfate HFA 108 (90 Base) MCG/ACT Inhalation Aerosol SolutionIndications :COPD, group C, by GOLD 2017 classification ([facility]),Asthma with irreversible airway obstruction, unspecified asthma severity, uncomplicated ([facility]) TAKE 2 PUFFS BY MOUTH EVERY 6 HOURS NEEDED FOR WHEEZE 54 g 1 4 Active Albuterol Sulfate HFA 108 (90 Base) MCG/ACT Inhalation Aerosol SolutionIndications :COPD, group C, by GOLD 2017 classification ([facility]),Asthma with irreversible airway obstruction, unspecified asthma severity, uncomplicated ([facility]) INHALE 2 PUFFS BY MOUTH EVERY 6 HOURS NEEDED FOR WHEEZING 54 g 1 3 10/16/19 24 Discontinued documented as of this encounter (statuses as of 10/16/2023) Active Problems Problem Noted Date Diagnosed Date [...] as of this encounter (statuses as of 10/16/2023) Resolved Problems Problem Noted Date Diagnosed Date [...] as of this encounter (statuses as of 10/16/2023) Immunizations Name Administration Dates Next Due Pneumococcal [...] encounter Miscellaneous Notes * Telephone Encounter - Tommy Mann [facility] - 10/16/2023 5:18 PM EDTSigned Prescriptions: Disp Refills Albuterol Sulfate HFA 108 (90 Base) MCG/AC*54 g 1 Sig: TAKE 2 PUFFS BY MOUTH EVERY 6 HOURS NEEDED FOR WHEEZEAuthorizing Provider: ELEUTERIO LOPEZ User: TOMMY MANN documented in this encounter Plan of Treatment Upcoming Encounters Date Type Department Care Team (Late st Contact Info) Description 10/17/2023 8:40 AM EDT [facility] [address] [facility] [phone] Eleuterio Lopez [facility] [address] [facility] [address] 01/31/2024 9:00 AM EDT Laboratory Laboratory, [place] [address] [place] [address] [facility] [address] [place], [place] [id number] 02/07/2024 8:20 AM EDT Office Visit Family Practice, [place] [address] [place] [address] August, Eleuterio Heller MD [address] [place] [address] 08/09/2024 9:00 AM EDT Office Visit Nephrology, [facility] [address] [place] [address] Chago Todd MD [address] [facility] [place] [address] Health Maintenance Due Date Last Done Comments [...] 11/17/2020 Albumin/Creatinine Ratio 09/05/2024 09/06/2023, 09/2 06/2021 O2 ASSESSMENT COMPLETED IN PAST YEAR FOR [...] Documents on File Type Date Recorded Patient Steelscope Operator Expl anation Power of Automotive Consultant 04/06/2023 POWER OF A TTORNEY * Full [...] and were consensually agreed upon. Care Teams Infrastructure Solutions Architect Relationship Specialty Start Date End Date August, Eleuterio Helelr MD [address] [facility] [place] [address] PCP - General Family Medicine 03/30/23 documented as of this encounter
--- OUTSIDE RECORDS SUMMARY | 2024-03-16 19:37 | External Medical Summary | Summary of Care ---
Author Name Unknown Organization [facility] Address [address] [place] [address] Phone [phone] Care Team Providers Care Instructional Technology Specialist Name Role Phone AugustMarkell MD Primary Care Provider [phone] Reason for Visit * Reason Onset Date Comments Medication Refill 11/01/2023 Encounter Details Date Type Department Care Team (Late st Contact Info) Description 11/01/[address] [facility] [address] [place] [address] AugustMarkell MD [address] [place] [address] Bilateral primary osteoarthritis of knee Allergies Active Allergy Reactions Criticality Noted Date Comments Azithromycin Medium 06/19/2023 Facial redness, swelling, itching, watery eyes Methylprednisolone Sodium Succ 12/06 Dog Dander Low 03/20/2019 Other reaction(s): Sneezing Food (See Comments) 02/23/2018 Duck eggs Swelling Pollen 08/25/2015 Nystatin 01/17/2019 Allergic reaction Pollen Extract 03/20/2019 Other reaction(s): HAYFEVER documented as of this encounter (statuses as of 11/02/2023) Medications Medication Sig Dispensed Refills Start Date [...] heart failure due to valvular disease ([facility]) TAKE 1 TABLET BY MOUTH EVERY DAY [...] Oral Tablet (Cordarone)Indicati ons:Paroxysmal atrial fibrillation ([facility]) Take 1 Tablet by mouth in the [...] classification ([facility]) 1 puff each morning 36 g 1 [...] classification ([facility]) INHALE 1 VIAL EVERY 4 TO 6 [...] heart failure, unspecified heart failure type ([facility]),PAULETTE (acute kidney injury) ([facility]) TAKE 2 TABLETS BY MOUTH EVERY MORNING [...] uncomplicated ([facility]) TAKE 2 PUFFS BY MOUTH EVERY 6 HOURS NEEDED FOR WHEEZE 54 g 1 10/16/2023 Active Triamcinolone Acetonide 0.5 % External Cream (Aristocort)Indicat ions:Senile purpura ([facility]) Apply topically to affected area 2 times a day. To affected area. 60 g 1 10/17/2023 Active traMADol HCl 50 MG Oral Tablet (Ultram)Indications :Bilateral primary osteoarthritis of knee Take 1 Tablet by mouth every 12 hours as needed for Pain, Moderate. 60 Tablet 11/02/2023 Active traMADol HCl 50 MG Oral Tablet (Ultram)Indications :Bilateral primary osteoarthritis of knee Take 1 Tablet by mouth every 12 hours as needed for Pain, Moderate. 60 Tablet 10/04/2023 Discontinu ed(Refill) documented as of this encounter (statuses as of 11/02/2023) Active Problems Problem Noted Date Diagnosed Date [...] as of this encounter (statuses as of 11/02/2023) Resolved Problems Problem Noted Date Diagnosed Date [...] as of this encounter (statuses as of 11/02/2023) Immunizations Name Administration Dates Next Due Pneumococcal [...] encounter Miscellaneous Notes * Telephone Encounter - Carlo John MD - 11/02/2023 3:52 PM EDTSigned Prescriptions: Disp Refills traMADol HCl 50 MG Oral Tablet (Ultram) 60 Tab*0 Sig: Take 1 Tablet by mouth every 12 hours as needed for Pain, Moderate. Authorizing Provider: CARLO JOHN * Telephone Encounter - Donn Yan [facility] - 11/02/2023 1:44 PM EDT Pending Prescriptions: Disp Refills traMADol HCl 50 MG Oral Tablet (Ultram) 60 Tab*0 Sig: Take 1 Tablet by mouth every 12 hours as needed for Pain, Moderate. * Telephone Encounter - Donn Yan [facility] - 11/02/2023 1:44 PM EDT I have reviewed the patients controlled substance dispensing history in the Prescription Drug Monitoring Program in compliance with the [facility] regulations before prescribing a controlled substance. PDMP checked on 11/02/2023. Pending Prescriptions: Disp Refills traMADol HCl 50 MG Oral Tablet (Ultram) 60 Tab*0 Sig: Take 1 Tablet by mouth every 12 hours as needed for Pain, Moderate. Last Visit: 10/17/2023 (in office), 04/21/2022 (telemedicine) Next Visit: 02/07/2024 Date medication was last filled: 10/03 Date medication is due for refill: 11/02 Pharmacy: [id number] [address] [place] [address] Is this request for a controlled substance? Yes and Urine Drug Screen Not completed Toxicology results: No results found for this or any previous visit. Please approve if appropriate. Thanks, Donn Yan, PharmD Clinical Pharmacist [facility] ([facility]) [phone] 11/02/2023,1:44 PM * Telephone Encounter - Saray Mcintyre CPhT - 11/01/2023 2:46 PM EDT Did you pend patient's preferred pharmacy and medication before forwarding?yes Pharmacy: [id number] [address] [place] [address] Pending Prescriptions: Disp Refills traMADol HCl 50 [...] appointment Last date the medication was ordered: 10/04/2023 Is this request for a controlled substance?Yes, What was the last refill date 10/04/2023 w/ [id number] and dosage 50 and Urine Drug Screen [...] Description 01/31/2024 9:00 AM EDT Laboratory [facility], [place] [address] [facility] [phone] [place] [address] [facility] [address] 02/07/2024 8:20 AM EDT Office Visit [facility] [place] [address] [facility] [place] [phone] Markell Linton MD [address] [facility] [address] 08/09/2024 9:00 AM EDT Office Visit Nephrology, [facility] [address] [place] [address] Chago Todd MD [address] [place], [place] [address] Health Maintenance Due Date Last Done Comments [...] Documents on File Type Date Recorded Patient Java Front End Web Developer Expl anation Power of Body Component Engineer 04/06/2023 POWER OF A TTORNEY * Full [...] and were consensually agreed upon. Care Teams Instructional Technology Specialist Relationship Specialty Start Date End Date August, Markell Heller MD [address] [place] [address] PCP - General Family Medicine 03/30/23 documented as of this encounter
--- OUTSIDE RECORDS SUMMARY | 2024-03-16 19:37 | External Medical Summary | Summary of Care ---
Author Name Unknown Organization [facility] Address [address] [place] [address] Phone [phone] Care Team Providers Care [facility]keeper [facility] Name Role Phone Markell Linton MD Primary Care Provider [phone] Reason for Visit * Reason Onset Date Comments Medication Question 12/19/2023 Encounter Details Date Type Department Care Team (Late st Contact Info) Description 12/19/[address] [facility] [address] [place] [address] Markell Linton MD [address] [place] [address] Medication Question Allergies Active Allergy [...] heart failure due to valvular disease ([facility]) TAKE 1 TABLET BY MOUTH EVERY [...] Oral Tablet (Cordarone)Indicatio ns:Paroxysmal atrial fibrillation ([facility]) Take 1 Tablet by mouth in [...] GOLD 2017 classification ([facility]) INHALE 1 VIAL EVERY 4 TO [...] heart failure, unspecified heart failure type ([facility]),PAULETTE (acute kidney injury) ([facility]) TAKE 2 TABLETS BY MOUTH EVERY [...] asthma severity, uncomplicated ([facility]) TAKE 2 PUFFS BY MOUTH EVERY 6 HOURS NEEDED FOR WHEEZE 54 g 1 10/16/2023 Active Triamcinolone Acetonide 0.5 % External Cream (Aristocort)Indicati ons:Senile purpura ([facility]) Apply topically to affected area 2 [...] encounter Miscellaneous Notes * Telephone Encounter - Winifred Rene CPhT [...] something called in. Requesting high priority. number: [phone] Please advise. Thank you, Winifred Rene CPhT Ammonia Still Operator III [facility] ([facility]) 12/19/2023, 8:00 AM documented in this encounter Plan of Treatment Upcoming Encounters Date Type Department Care Team (Late st Contact Info) Description 01/31/2024 9:00 AM EDT Laboratory Laboratory, [place] [address] [facility] [place] [phone] [place] [facility] [address] [facility] [place] [address] 02/07/2024 8:20 AM EDT Office Visit [facility] [address] [facility] [place] [phone] Markell Linton MD [address] [facility] [place] [address] 08/09/2024 9:00 AM EDT Office Visit Nephrology, [facility] [address] [place] [address] Chago Todd MD [address] [place] [address] Health Maintenance Due Date Last Done Comments [...] Documents on File Type Date Recorded Patient Unix Systems Administrator Expl anation Power of Culinary Worker 04/06/2023 POWER OF A TTORNEY * Full [...] and were consensually agreed upon. Care Teams [facility] Relationship Specialty Start Date End Date August, Markell Heller MD [address] [place] [address] PCP - General Family Medicine 03/30/23 documented as of this encounter
--- OUTSIDE RECORDS SUMMARY | 2024-03-16 19:37 | External Medical Summary | Summary of Care ---
Author Name Unknown Organization [facility] Address [address] [place] [address] Phone [phone] Care Team Providers Care Staffing Director Name Role Phone AugustMarkell MD Primary Care Provider [phone] Encounter Details Date Type Department Care Team (Late st Contact Info) Description 11/29/2023 Telephone [facility] [address] [place] [address] AugustMarkell MD [address] [place] [address] Allergies Active Allergy Reactions Criticality Noted Date Comments Azithromycin Medium 06/19/2023 Facial redness, swelling, itching, watery eyes Methylprednisolone Sodium Succ 12/06 Dog Dander Low 03/20/2019 Other reaction(s): Sneezing Food (See Comments) 02/23/2018 Duck eggs Swelling Pollen 08/25/2015 Nystatin 01/17/2019 Allergic reaction Pollen Extract 03/20/2019 Other reaction(s): HAYFEVER documented as of this encounter (statuses as of 11/30/2023) Medications Medication Sig Dispensed Refills Start Date [...] due to valvular disease ([facility]) TAKE 1 TABLET BY MOUTH EVERY DAY [...] GOLD 2017 classification ([facility]) INHALE 1 VIAL EVERY 4 TO 6 [...] unspecified heart failure type ([facility]),PAULETTE (acute kidney injury) ([facility]) TAKE 2 TABLETS BY MOUTH EVERY MORNING [...] asthma severity, uncomplicated ([facility]) TAKE 2 PUFFS BY MOUTH EVERY 6 HOURS NEEDED FOR WHEEZE 54 g 1 4 Active Triamcinolone Acetonide 0.5 % External Cream (Aristocort)Indicat ions:Senile purpura ([facility]) Apply topically to affected area 2 times a day. To affected area. 60 g 1 4 Active traMADol HCl 50 MG Oral Tablet (Ultram)Indications :Bilateral primary osteoarthritis of knee Take 1 Tablet by mouth every 12 hours as needed for Pain, Moderate. 60 Tablet 4 Active Fluticasone Furoate 100 MCG/ACT Inhalation Aerosol Powder Breath Activated (ARNUITY ellipta) Inhale 1 Puff by mouth in the morning. 90 Each 3 4 Active Fluticasone Propionate HFA 110 MCG/ACT Inhalation AerosolIndications: COPD, group C, by GOLD 2017 classification ([facility]) 1 puff each morning 36 g 1 4 11/30/19 24 Discontinued documented as of this encounter (statuses as of 11/30/2023) Active Problems Problem Noted Date Diagnosed Date [...] as of this encounter (statuses as of 11/30/2023) Resolved Problems Problem Noted Date Diagnosed Date [...] as of this encounter (statuses as of 11/30/2023) Immunizations Name Administration Dates Next Due Pneumococcal [...] Telephone Encounter - Chana Stacy PA-C - 11/30/2023 3:23 PM EDTSigned Prescriptions: Disp Refills Fluticasone Furoate 100 MCG/ACT Inhalation*90 Each3 Sig: Inhale1 Puff by mouth in the morning.Authorizing Provider: CHANA STACY * Telephone Encounter - Sabrina Pacheco LPN - 11/29/2023 2:04 PM EDT [facility] is requesting an alternative for Fluticasone Pro HFA. Insurance will not cover. Suggested alternative: Arnuity Ellipta 100 mcg documented in this encounter Plan of Treatment Upcoming Encounters Date Type Department Care Team (Late st Contact Info) Description 01/31/2024 9:00 AM EDT Laboratory Laboratory, [place] [address] [place] [phone] [place] [address] [place], [place] [phone] 02/07/2024 8:20 AM EDT Office Visit Family [facility], [place] [address] [place] [facility] [place] [address] Markell Linton MD [address] [place], [place] [phone] 08/09/2024 9:00 AM EDT Office Visit Nephrology, [facility] [address] [place] [address] Chago Todd MD [address] [place] [address] Health Maintenance Due Date Last Done Comments Alpha-1 Antitrypsin 1966 Nephrology Referral 1966 PTH 1966 Zoster Vaccines (1 of 2) 1998 Adult Wellness Visit 2014 Pneumococcal Vaccine: 65+ Years (3 of 3 - PPSV23 or PCV20) 07/02/2018 11/25/2016, 07/02/2013 *ADVANCE DIRECTIVE NOT ON FILE 10/06/2018 Depression Screening 12/07/2020 12/08/2019 DXA Scan 06/06/2021 06/06/2014 COVID-19 Vaccine (1 - 2022-24 season) 2022 DTaP,Tdap,and Td Vaccines (2 - Td or Tdap) 07/03/2023 07/02/2013 Influenza Vaccine (FLU shot) (#1) 2023 03/12/2013 GFR 03/01/2024 08/30/2023, 02/22, 09/13/2022, Additional history exists Hgb 03/08/2024 03/08/2023, 08/23, 04/26/2022, Additional history exists TSH 03/08/2024 03/08/2023, 10/2020, 05/09/2019, Additional history exists Phosphate 08/29/2024 [...] Documents on File Type Date Recorded Patient Sports Book Server Expl anation Power of Slice Cutting Machine Operator 04/06/2023 POWER OF A TTORNEY [...] and were consensually agreed upon. Care Teams Staffing Director Relationship Specialty Start Date End Date August, Markell Heller MD [address] [place] [address] PCP - General Family Medicine 03/30/23 documented as of this encounter
--- OUTSIDE RECORDS SUMMARY | 2024-03-16 19:37 | External Medical Summary | Summary of Care ---
Author Name Unknown Organization [facility] Address [address] [place] [address] Phone [phone] Care Team Providers Care Manager Money Name Role Phone AugustMarkell MD Primary Care Provider [phone] Reason for Visit * Reason Comments eRx-Medication Refill Encounter Details Date Type Department Care Team (Late st Contact Info) Description 01/01/2024 Refill [facility] [address] [place] [address] AugustMarkell MD [address] [place] [address] Hypothyroidism, unspecified type; Macrocytic anemia Allergies Active Allergy Reactions Criticality [...] , group C, by GOLD 2017 classification ([facility]) Use to nebulize medicaitons 1 Kit 1 3 Active Clopidogrel Bisulfate 75 MG Oral Tablet (pLAVix)Indications :Congestive heart failure due to valvular disease ([facility]) TAKE 1 TABLET BY MOUTH EVERY DAY IN THE MORNING 90 Tablet 3 3 Active Amiodarone HCl 200 MG Oral Tablet (Cordarone)Indicati ons:Paroxysmal atrial fibrillation ([facility]) Take 1 Tablet by mouth [...] :COPD, group C, by GOLD 2017 classification ([facility]) INHALE 1 VIAL EVERY 4 [...] congestive heart failure, unspecified heart failure type ([facility]),PAULETTE (acute kidney injury) ([facility]) TAKE 2 TABLETS BY MOUTH EVERY MORNING 180 Tablet 1 4 Active Heartburn Relief 10 MG Oral Tablet (Famotidine)Indicat ions:Gastroesophage al reflux disease without esophagitis TAKE 1 TABLET BY MOUTH EVERY DAY IN THE MORNING 90 Tablet 1 4 Active Albuterol Sulfate HFA 108 (90 Base) MCG/ACT Inhalation Aerosol SolutionIndications :COPD, group C, by GOLD 2017 classification ([facility]),Asthma with irreversible airway obstruction, unspecified asthma severity, uncomplicated ([facility]) TAKE 2 PUFFS BY MOUTH [...] 0.5 % External Cream (Aristocort)Indicat ions:Senile purpura ([facility]) Apply topically to affected area [...] DAY AT 12 90 Tablet 4 Active Ferrous Sulfate 325 (65 Fe) MG Oral Tablet (Feosol)Indications :Macrocytic anemia TAKE 1 TABLET BY MOUTH EVERY DAY AT 12 90 Tablet 3 3 01/03/20 24 Discontinued Levothyroxine Sodium 50 MCG Oral Tablet (Levoxyl)Indication s:Hypothyroidism, unspecified type Take 1 Tablet by mouth in the morning. on an empty stomach.. 90 Tablet 3 3 01/03/20 24 Discontinued documented as of this encounter [...] Notes * Telephone Encounter - Mehnaz Baker, [facility] - 01/03/2024 5:56 AM EDTSigned Prescriptions: Disp Refills Levothyroxine Sodium 50 MCG Oral Tablet (L*90 Tab*0 Sig: TAKE 1 TABLET BY MOUTH IN THE MORNING. ON AN EMPTY STOMACH..Authorizing Provider: MARKELL LOPEZ User: MEHNAZ BAKER Ferrous Sulfate 325 (65 Fe) MG Oral Tablet*90 Tab*0 Sig: TAKE 1 TABLET BY MOUTH EVERY DAY AT 12Authorizing Provider: MARKELL LOPEZ User: MEHNAZ BAKERRefused Prescriptions: Disp Refills Simvastatin 10 MG Oral Tablet (Zocor) 90 Tab*0 Sig: TAKE 1 TABLET BY MOUTH EVERYDAY AT BEDTIMERefused By: MEHNAZ BAKER for Refusal: Too soon * Telephone Encounter - Mehnaz Baker RPh - 01/03/2024 5:55 AM EDT Lab 01/30 Tsh iron cbc documented in this encounter Plan of Treatment Upcoming Encounters Date Type Department Care Team (Late st Contact Info) Description 01/31/2024 9:00 AM EDT Laboratory Laboratory, [place] [address] [place] [phone] [place], Laboratory [facility] [address] [place], [place] [id number] 02/07/2024 8:20 AM EDT Office Visit Family [facility], [place] [address] [place] [phone] Markell Lopez MD [address] [place] [address] 08/09/2024 9:00 AM EDT Office Visit Nephrology, [facility] [address] [place] [address] Chago Todd MD [address] [facility], [place] [id number] Scheduled Orders Name Type Priority Associated Diagnoses Orde r Schedule CBC Lab Routine Macrocytic anemia Expected: 01/03/2024 (Approximate), Expires: 01/02/2025 FERRITIN Lab Routine Macrocytic anemia Expected: 01/03/2024, Expires: 01/02/2025 IRON SCREEN, INCLUDING TIBC Lab Routine Macrocytic anemia Expected: 01/03/2024, Expires: 01/02/2025 TSH WITH FREE T4 IF INDICATED Lab Routine Hypothyroidism, unspecified type Expected: 01/03/2024 (Approximate), Expires: 01/02/2025 Health Maintenance Due Date Last Done Comments [...] this encounter Visit Diagnoses Diagnosis Hypothyroidism, unspecified type Macrocytic anemia Unspecified deficiency anemia documented in this encounter Advance Directives Documents on File Type Date Recorded Patient Circuit Board Drafter Expl anation Power of Multifocal Lens Inspector 04/06/2023 POWER OF A TTORNEY * Full [...] were consensually agreed upon. Care Teams Manager Money Relationship Specialty Start Date End Date August, Markell Heller MD [address] [place] [facility] [place] [id number] PCP - General Family Medicine 03/30/23 documented as of this encounter
[2024-03-16] MEDS: SIMVASTATIN 10 MG TAB PO SCH (20:47)
[2024-03-16] MEDS: TOPIRAMATE 25 MG TAB PO SCH (20:47)
[2024-03-16] MEDS: oxyCODONE HCL IR 5 MG TAB (IMMEDIATE RELEASE) PO STA (23:19)
[2024-03-17] MEDS ORDERED: Nursing to Pharmacy Communication SCH (03:15)
[2024-03-17 05:45] LABS: Basophils # (auto) 0.05 K/uL (0.00-0.20); Basophils % (auto) 0.4 %; Eosinophils # (auto) 0.59 K/uL (0.00-0.50); Eosinophils % (auto) 5.2 %; Hematocrit (blood only) 29.5 % (37.0-47.0); Hemoglobin 9.2 g/dl (12.0-16.0); Immature Granulocytes # (auto) 0.04 K/uL (0.01-0.20); Immature Granulocytes % (auto) 0.3 %; Lymphocytes # (auto) 1.35 K/uL (1.20-3.40); Lymphocytes % (auto) 11.8 %; Mean Corpuscular Hemoglobin 31.6 pg (25.0-34.0); Mean Corpuscular Hgb Conc 31.2 g/dL (32.0-36.0); Mean Corpuscular Volume 101.4 fL (80.0-100.0); Monocytes # (auto) 1.12 K/uL (0.11-0.59); Monocytes % (auto) 9.8 %; Neutrophils # (auto) 8.29 K/uL (1.40-6.50); Neutrophils % (auto) 72.5 %; Platelet Count 269 K/uL (130-400); RDW Coefficient of Variation 14.5 % (11.5-14.5); RDW Standard Deviation 53.8 fL (36.4-46.3); Red Blood Count 2.91 M/uL (4.20-5.40); White Blood Count 11.44 K/ul (4.8-10.8)
[2024-03-17 05:59] LABS: BUN Creatinine Ratio 12.3 (10-20); Creatinine Clr Calc Pharmacy 28.3 ml/min; Magnesium 2.4 mg/dl (1.7-2.4)
[2024-03-17] MEDS: FLUTICASONE FUROATE 100MCG 14 PUFFS/INHALER INH SCH (09:12)
--- NOTE | 2024-03-17 09:55 | Hospitalist Progress Note ---
Date of Service March 17, 2024 Assessment & Plan (1) SOB (shortness of breath): Plan: 73-year-old female with past medical history significant for dyslipidemia, COPD, asthma, history of multifocal pneumonia, chronic heart failure with preserved ejection fraction, aortic stenosis, paroxysmal atrial fibrillation, status post TAVR, obesity, GERD, CKD stage IV, macrocytic anemia, history of tobacco use, currently living with her sister comes because of ongoing cough bringing up phlegm and right-sided chest pain on and off for last 2 weeks. Patient states since last 2 weeks feeling short of breath and having cough. Acute hypoxic respiratory failure Multifocal pneumonia Patient presented with low oxygen saturation, tachypnea, cough and shortness of breath. Prior history of MRSA pneumonia and bacteremia in 2022 Chest x-ray concerning for pneumonia CT chest shows multifocal pneumonia MRSA nares negative Blood culture- NGTD sputum cx- pending Continue on IV Zosyn and doxycycline; plan to treat for 7 days Airway clearance therapy with hypertonic saline, DuoNeb, flutter valve and incentive spirometry Follow-up on sputum culture PT OT ordered History of COPD History of asthma History of tobacco abuse quit 2018. Smoked half pack a day for 30 years Continue home inhalers Nebs asxalh-[id number]-plvtr and as needed CHF with preserved ejection fraction, compensated Aortic stenosis status post TAVR Continue home dose of lasix Monitor for volume overload Paroxysmal atrial fibrillation On metoprolol and amiodarone Not anticoagulated secondary to GI bleed Nonobstructive CAD On Plavix, aspirin ,statin and beta-nikhil CKD stage IV Presented with creatinine 1.9 around baseline avoid nephrotoxic agents Anemia Anemia of chronic disease Hemoglobin 10.4 On iron supplement. GERD On Protonix and famotidine, continue Migraines On Topamax Tramadol as needed Hypothyroidism On Synthyroid, continue Obesity Counseling as outpatient DVT prophylaxis Heparin subcu Full code Time spent evaluating patient, direct bedside care, chart review, placing orders, interpretation of diagnostic studies, discussion with consultants, patient, and family members, as well as other required patient management activities is 50 minutes Please note the above document was generated using voice recognition software. It may contain grammatical, syntax or spelling errors. Any formal questions or concerns about the content, text or information contained within the body of this dictation should be directly addressed to the provider for clarification Admission and Anticipated Discharge Date Admission Date: March 16, 2024 Subjective Patient seen and examined at bedside. She is comfortable; reports that she is feeling better No significant events overnight Review of Systems Review of Systems: All systems reviewed & are unremarkable except as noted in Subjective Physical Exam Physical Exam: General- Not in distress Head- atraumatic Eyes- PERRL. ENT- oropharynx clear Neck- supple, no JVD. Lungs- Bilateral crackles heard at bases Heart- regular rate and rhythm; no murmur, no gallop. Abdomen- normal bowel sounds, soft, nontender, no distension Extremities- no pretibial edema, no erythema seen Neuro- alert, oriented PERRL, no facial palsy; no dysarthria; moves extremities Results & Data Results & Data Vital Signs (Past 12 Hours) Vital Signs Temp Pulse Pulse Resp BP Pulse Ox O2 Del Method 03/17/24 07:17 79 18 93 Room Air 03/17/24 07:16 36.5 C 79 18 105/57 L 95 Nasal Cannula 03/17/24 07:15 78 03/17/24 03:16 36.5 C 81 18 98/58 L 96 Nasal Cannula 03/16/24 22:30 36.6 C 87 18 103/68 96 Nasal Cannula 03/16/24 22:12 86 03/16/24 22:10 Nasal Cannula O2 Flow Rate 03/17/24 07:17 03/17/24 07:16 2 03/17/24 07:15 03/17/24 03:16 2 03/16/24 22:30 2 03/16/24 22:12 03/16/24 22:10 1
[2024-03-17] MEDS: LACTATED RINGER'S 1,000 ML IV ONE (11:30)
[2024-03-17] MEDS: LACTATED RINGER'S 1,000 ML IV SCH (16:17)
[2024-03-17] MEDS: SODIUM CHLORIDE 0.9% 250 ML IV ONE (19:30)
[2024-03-17] MEDS: SODIUM CHLORIDE 0.9% 500 ML IV ONE (23:06)
[2024-03-17] MEDS ORDERED: VANCOMYCIN CONSULT ACTIVE PRN (23:08)
[2024-03-17] MEDS ORDERED: VANCOMYCIN HCL 1,000 MG/270 ML BAG IV SCH (23:15)
[2024-03-18] MEDS: VANCOMYCIN HCL 2,500 MG in SODIUM CHLORIDE 0.9% 500 ML IV ONE (00:13)
[2024-03-18] MEDS ORDERED: SODIUM CHLORIDE 0.65% NA SOLN 45 ML (OCEAN) PRN (00:16)
[2024-03-18] MEDS: SODIUM CHLORIDE 0.9% 1,000 ML IV SCH (00:23)
[2024-03-18] MEDS: KETOROLAC TROMETHAMINE 15 MG/ML VIAL IV ONE (06:19)
[2024-03-18 07:33] LABS: Basophils # (auto) 0.04 K/uL (0.00-0.20); Basophils % (auto) 0.4 %; Eosinophils # (auto) 0.68 K/uL (0.00-0.50); Eosinophils % (auto) 6.5 %; Hemoglobin 9.3 g/dl (12.0-16.0); Immature Granulocytes # (auto) 0.06 K/uL (0.01-0.20); Immature Granulocytes % (auto) 0.6 %; Lymphocytes # (auto) 1.35 K/uL (1.20-3.40); Lymphocytes % (auto) 12.9 %; Mean Corpuscular Hemoglobin 31.6 pg (25.0-34.0); Mean Platelet Volume 10.4 fL (9.4-12.4); Monocytes # (auto) 0.89 K/uL (0.11-0.59); Monocytes % (auto) 8.5 %; Neutrophils # (auto) 7.42 K/uL (1.40-6.50); Neutrophils % (auto) 71.1 %; Platelet Count 305 K/uL (130-400); RDW Coefficient of Variation 14.6 % (11.5-14.5); RDW Standard Deviation 55.1 fL (36.4-46.3); Red Blood Count 2.94 M/uL (4.20-5.40); White Blood Count 10.44 K/ul (4.8-10.8)
[2024-03-18 07:53] LABS: BUN Creatinine Ratio 11.7 (10-20); Calcium 8.8 mg/dl (8.6-10.3); Creatinine Clr Calc Pharmacy 30.3 ml/min; Potassium 4.4 mmol/L (3.5-5.1)
--- NOTE | 2024-03-18 07:53 | Hospitalist Progress Note ---
Date of Service March 18, 2024 Assessment & Plan (1) SOB (shortness of breath): Plan: 73-year-old female with past medical history significant for dyslipidemia, COPD, asthma, history of multifocal pneumonia, chronic heart failure with preserved ejection fraction, aortic stenosis, paroxysmal atrial fibrillation, status post TAVR, obesity, GERD, CKD stage IV, macrocytic anemia, history of tobacco use, currently living with her sister comes because of ongoing cough bringing up phlegm and right-sided chest pain on and off for last 2 weeks. Patient states since last 2 weeks feeling short of breath and having cough. Acute hypoxic respiratory failure Multifocal pneumonia Patient presented with low oxygen saturation, tachypnea, cough and shortness of breath. Prior history of MRSA pneumonia and bacteremia in 2022 Chest x-ray concerning for pneumonia CT chest shows multifocal pneumonia MRSA nares negative Blood culture- NGTD sputum cx- light normal compa present. Continue on IV cefepime and doxycycline; plan to treat for 7 days Airway clearance therapy with hypertonic saline, DuoNeb, flutter valve and incentive spirometry PT OT ordered Persistent hypotension Patient had multiple episode of hypotension on the night of 03/17- 03/18 She also reports dizziness while standing up at home as well. Lactate within normal limits Random cortisol 8.16 Cosyntropin stimulation test negative. Started on midodrine 5 mg tid; will follow response. History of COPD History of asthma History of tobacco abuse quit 2018. Smoked half pack a day for 30 years Continue home inhalers Nebs batkrq-nqd-vilez and as needed CHF with preserved ejection fraction, compensated Aortic stenosis status post TAVR hold lasix given hypotension Monitor for volume overload Paroxysmal atrial fibrillation On metoprolol and amiodarone; metoprolol on hold for now Not anticoagulated secondary to GI bleed Nonobstructive CAD On Plavix, aspirin ,statin and beta-nikhil CKD stage IV Presented with creatinine 1.9 around baseline avoid nephrotoxic agents Anemia Anemia of chronic disease Hemoglobin 9 to 10 On iron supplement. GERD On Protonix and famotidine, continue Migraines On Topamax Tramadol as needed Hypothyroidism On Synthyroid, continue Obesity Counseling as outpatient DVT prophylaxis Heparin subcu Full code DispositionI discussed with patient and patient's sister about possibly going rehab given her deconditioning, possible postural hypotension. Patient is adamant about going home with home health. I asked them to discuss it further. Await PT OT evaluation. Time spent evaluating patient, direct bedside care, chart review, placing orders, interpretation of diagnostic studies, discussion with consultants, patient, and family members, as well as other required patient management activities is 50 minutes Please note the above document was generated using voice recognition software. It may contain grammatical, syntax or spelling errors. Any formal questions or concerns about the content, text or information contained within the body of this dictation should be directly addressed to the provider for clarification Admission and Anticipated Discharge Date Admission Date: March 16, 2024 Subjective Overnight, patient had hypotension requiring multiple fluid boluses. She was asymptomatic throughout the symptoms. Lactic acid was within normal limits Patient reports that she is comfortable; not in distress. Reports that shortness of breath has improved; continues to have cough. Review of Systems Review of Systems: All systems reviewed & are unremarkable except as noted in Subjective Physical Exam Physical Exam: General- Not in distress Head- atraumatic Eyes- PERRL. ENT- oropharynx clear Neck- supple, no JVD. Lungs- Bilateral crackles heard at bases Heart- regular rate and rhythm; no murmur, no gallop. Abdomen- normal bowel sounds, soft, nontender, no distension Extremities- no pretibial edema, no erythema seen Neuro- alert, oriented PERRL, no facial palsy; no dysarthria; moves extremities Results & Data Results & Data Vital Signs (Past 12 Hours) Vital Signs Temp Pulse Pulse Resp BP Pulse Ox O2 Del Method 03/18/24 07:38 36.5 C 86 20 90/53 L 100 Nebulizer 03/18/24 07:05 76 18 94 Nasal Cannula 03/18/24 02:16 36.4 C L 82 18 108/61 92 Nasal Cannula 03/18/24 00:02 77 03/17/24 23:45 Nasal Cannula 03/17/24 23:45 36.5 C 85 20 95/49 L 91 Nasal Cannula 03/17/24 23:02 81/47 L 03/17/24 23:02 68/30 L 03/17/24 22:57 36.6 C 83 18 66/40 L 95 Nasal Cannula 03/17/24 22:00 79 03/17/24 20:14 91/59 L 03/17/24 19:52 81/50 L O2 Flow Rate 03/18/24 07:38 03/18/24 07:05 2 03/18/24 02:16 2 03/18/24 00:02 03/17/24 23:45 2 03/17/24 23:45 2 03/17/24 23:02 03/17/24 23:02 03/17/24 22:57 2 03/17/24 22:00 03/17/24 20:14 03/17/24 19:52
--- NOTE | 2024-03-18 07:54 | Communication Note ---
Date of Service: March 18, 2024 Transferred last night patient to tele and started on iv vanco as patient SBP in 80's even after giving fluids. Patient asymptomatic. With fluids BP slowly improving. Close monitor.Notified am providers.
[2024-03-18] MEDS: MIDODRINE HCL 2.5 MG TAB PO SCH (08:32)
[2024-03-18] MEDS: COSYNTROPIN 250 MCG in SYRINGE 4 ML IV ONE (08:35)
--- NOTE | 2024-03-18 10:43 | Pharmacy Report ---
Pharmacy PK ABX Note - Date of Service March 18, 2024 - Assessment and Plan Assessment 73 year old F receiving vancomycin, doxycycline and Zosyn for treatment of VAP/HAP. Patient has a hx of MRSA PNA/bacteremia in 2022 . Pertinent microbiologic data includes: negative MRSA Nasal Swab, prelimany blood cx NGTD, sputum gram stain final w/many WBCs, few GPB, few GPC, rare yeast. Day # 2 of antimicrobial therapy. Patient has a hx of CKD IV, current SCr of 2.14 with baseline around 1.9. Plan Vancomycin * Loading dose: 2500 mg IV x 1 * Maintenance dose: 750 mg IV every 24 hours * Regimen is predicted to achieve target AUC/SATYA of 400-600 mg/L.hr * Random level to be ordered in the next 48 hours Pharmacy will continue to follow and will adjust dose/frequency as necessary. Thank you. Pharmacy has transitioned to AUC monitoring for vancomycin. AUC/SATYA is the preferred PK/PD target and is associated with decreased risk of nephrotoxicity compared to traditional trough targets.
[2024-03-18] MEDS: CEFEPIME 2000MG 2,000 MG/20 ML SYR IV SCH (13:10)
--- NOTE | 2024-03-18 19:10 | Electrocardiogram Report ---
Test Reason : Blood Pressure : */* mmHG Vent. Rate : 85 BPM Atrial Rate : 85 BPM P-R Int : 164 ms QRS Dur : 100 ms QT Int : 348 ms P-R-T Axes : 39 23 103 degrees QTcB Int : 414 ms Normal sinus rhythm Nonspecific ST and T wave abnormality Abnormal ECG When compared with ECG of 16-Mar-2024 02:22, No significant change was found Confirmed by Cy Moreau ([id number]) on 03/18/2024 7:10:31 PM Referred By: REFERRED SELF Confirmed By: Cy Moreau
[2024-03-18] MEDS: DOXYCYCLINE HYCLATE 100 MG CAP PO SCH (20:19)
[2024-03-18] MEDS: VANCOMYCIN 750 MG in SODIUM CHLORIDE 0.9% 250 ML IV SCH (20:27)
[2024-03-18] MEDS ORDERED: VANCOMYCIN 750 MG in SODIUM CHLORIDE 0.9% 250 ML IV SCH (21:00)
[2024-03-18] MEDS: COUGH DROP (SUGAR FREE) LOZ 24 LOZ/1 BOX BUCCAL PRN (21:45)
[2024-03-18] MEDS: FUROSEMIDE 40 MG/4 ML VIAL IV ONE (23:24)
--- NOTE | 2024-03-18 23:50 | XRay Report ---
Exam(s): XR CXR 1 VIEW EXAM: XR Chest, 1 View CLINICAL HISTORY: Reason for exam: sob. TECHNIQUE: Frontal view of the chest. COMPARISON: 03/16/2024 FINDINGS: Lungs: Diffuse interstitial infiltrates with particular confluence in the left lower lobes. Pleural space: Small left pleural effusion. No pneumothorax. Heart: See below. Mediastinum: Unremarkable. Normal mediastinal contour. Bones/joints: Unremarkable. No acute fracture. Vasculature: Postoperative changes aortic valvular repair. IMPRESSION: Multifocal pneumonia. Electronically signed by: Abner Pratt MD 03/18/24 23:49 PM
[2024-03-19] MEDS: ALBUT/IPRATROP 3MG/0.5MG NEB 3 ML VIAL NEB PRN (04:05)
[2024-03-19 08:00] LABS: Basophils # (auto) 0.04 K/uL (0.00-0.20); Basophils % (auto) 0.3 %; Eosinophils # (auto) 0.14 K/uL (0.00-0.50); Eosinophils % (auto) 0.9 %; Hematocrit (blood only) 26.6 % (37.0-47.0); Hemoglobin 8.4 g/dl (12.0-16.0); Immature Granulocytes # (auto) 0.14 K/uL (0.01-0.20); Immature Granulocytes % (auto) 0.9 %; Lymphocytes % (auto) 6.5 %; Mean Corpuscular Hemoglobin 31.5 pg (25.0-34.0); Mean Corpuscular Hgb Conc 31.6 g/dL (32.0-36.0); Mean Corpuscular Volume 99.6 fL (80.0-100.0); Mean Platelet Volume 10.1 fL (9.4-12.4); Monocytes # (auto) 0.93 K/uL (0.11-0.59); Neutrophils # (auto) 13.15 K/uL (1.40-6.50); Neutrophils % (auto) 85.4 %; Platelet Count 285 K/uL (130-400); RDW Coefficient of Variation 14.7 % (11.5-14.5); RDW Standard Deviation 53.3 fL (36.4-46.3); Red Blood Count 2.67 M/uL (4.20-5.40)
[2024-03-19 08:33] LABS: BUN Creatinine Ratio 14.1 (10-20); Calcium 8.8 mg/dl (8.6-10.3); Creatinine Clr Calc Pharmacy 31.8 ml/min
[2024-03-19 08:58] LABS: Troponin I High Sensitivity 23.5 pg/ml (0-14)
--- NOTE | 2024-03-19 11:23 | Hospitalist Progress Note ---
Date of Service March 19, 2024 Assessment & Plan (1) SOB (shortness of breath): Plan: 73-year-old female with past medical history significant for dyslipidemia, COPD, asthma, history of multifocal pneumonia, chronic heart failure with preserved ejection fraction, aortic stenosis, paroxysmal atrial fibrillation, status post TAVR, obesity, GERD, CKD stage IV, macrocytic anemia, history of tobacco use, currently living with her sister comes because of ongoing cough bringing up phlegm and right-sided chest pain on and off for last 2 weeks. Patient states since last 2 weeks feeling short of breath and having cough. Acute hypoxic respiratory failure Multifocal pneumonia Patient presented with low oxygen saturation, tachypnea, cough and shortness of breath. Prior history of MRSA pneumonia and bacteremia in 2022 Chest x-ray concerning for pneumonia CT chest shows multifocal pneumonia MRSA nares negative Blood culture- NGTD sputum cx- light normal compa present. Continue on IV cefepime and doxycycline; plan to treat for 7 days Airway clearance therapy with DuoNeb, flutter valve and incentive spirometry Pulmonology consulted as patient continues to be short of breath and is requiring more oxygenation. Persistent hypotension Patient had multiple episode of hypotension on the night of 03/17- 03/18 She also reports dizziness while standing up at home as well. Lactate within normal limits Random cortisol 8.16 Cosyntropin stimulation test negative. Will increase midodrine to 10 mg 3 times daily. Will monitor response. Demand ischemia Patient reported chest pain while coughing History of left heart cath in March 2019; no obstructive coronary disease EKG reviewed; sinus tachycardia with ST depression in inferior lateral leads High sensitive troponin negative on 03/18; elevated to 23.5 on 03/19; repeat pending Echocardiogram shows EF of 60 to 65% with moderate mitral valve stenosis. Will likely need ischemic workup after resolution of medical issues. History of COPD History of asthma History of tobacco abuse quit 2018. Smoked half pack a day for 30 years Continue home inhalers Nebs weewsx-omt-[id number] and as needed CHF with preserved ejection fraction, compensated Aortic stenosis status post TAVR Lasix resumed on 03/19 Monitor for volume overload Paroxysmal atrial fibrillation On metoprolol and amiodarone; metoprolol on hold for now Not anticoagulated secondary to GI bleed Nonobstructive CAD On Plavix, aspirin ,statin and beta-nikhil CKD stage IV Presented with creatinine 1.9 around baseline avoid nephrotoxic agents Urine output reassuring Anemia Anemia of chronic disease Hemoglobin 8 to 9 On iron supplement. GERD On Protonix and famotidine, continue Migraines On Topamax Tramadol as needed Hypothyroidism On Synthyroid, continue Obesity Counseling as outpatient DVT prophylaxis Heparin subcu Full code Disposition-Patient appears to be severely deconditioned. She will need rehab after resolution of medical issues. She agreeable with the plan as well. Discussed with patient's sisters at bedside. Time spent evaluating patient, direct bedside care, chart review, placing orders, interpretation of diagnostic studies, discussion with consultants, patient, and family members, as well as other required patient management activities is 50 minutes Please note the above document was generated using voice recognition software. It may contain grammatical, syntax or spelling errors. Any formal questions or concerns about the content, text or information contained within the body of this dictation should be directly addressed to the provider for clarification Admission and Anticipated Discharge Date Admission Date: March 16, 2024 Subjective Patient seen multiple times during the day. In the morning, patient was coughing and reported shortness of breath. She reported chest pain while coughing. Repeat chest x-ray overnight showed multifocal pneumonia Review of Systems Review of Systems: All systems reviewed & are unremarkable except as noted in Subjective Physical Exam Physical Exam: General- Not in distress Head- atraumatic Eyes- PERRL. ENT- oropharynx clear Neck- supple, no JVD. Lungs- Bilateral crackles heard at bases Heart- regular rate and rhythm; no murmur, no gallop. Abdomen- normal bowel sounds, soft, nontender, no distension Extremities- no pretibial edema, no erythema seen Neuro- alert, oriented PERRL, no facial palsy; no dysarthria; moves extremities Results & Data Results & Data Vital Signs (Past 12 Hours) Vital Signs Temp Pulse Pulse Resp BP Pulse Ox O2 Del Method 03/19/24 09:11 112 H 03/19/24 08:13 36.6 C 114 H 22 81/49 L 89 L Oxymask 03/19/24 07:16 57 L 22 91 Oxymask 03/19/24 04:06 80 22 93 Oxymask 03/19/24 03:53 36.4 C L 108 H 28 H 98/60 L 91 Oxymask O2 Flow Rate 03/19/24 09:11 03/19/24 08:13 5 03/19/24 07:16 6 03/19/24 04:06 5 03/19/24 03:53 6
[2024-03-19 11:50] LABS: Troponin I High Sensitivity 21.3 pg/ml (0-14)
[2024-03-19] MEDS ORDERED: IPRATROPIUM BROMIDE NEB SOLN 0.02% 0.5MG/2.5ML VIAL INH PRN (12:23)
--- NOTE | 2024-03-19 12:28 | Pulmonary Consultation ---
Date of Consultation March 19, 2024 Assessment & Plan (1) Bilateral pneumonia: (2) Hypoxia: (3) SOB (shortness of breath): (4) COPD (chronic obstructive pulmonary disease): (5) CHF (congestive heart failure): (6) Morbid obesity: Plan IMPRESSION: 73-year-old female with a significant past medical history of COPD, tobacco abuse, MRSA pneumonia, CHF, CKD, and A-fib who presents in the setting of multifocal infiltrative process with associated hypoxemia. RECOMMENDATIONS: 1. Pneumonia - Concerning findings with marked bilateral infiltrative processes present. Sputum cultures have been unremarkable to this point. BioFire testing has been negative. Her white count does continue to climb. Agree with broad- spectrum coverage as you are. She reports no other concerning symptoms such as diarrhea or ultimately status and labs not suggestive of some other adventitious infectious source. Certainly, if the patient was on anticoagulants, could consider pulmonary hemorrhage in the differential, but this is not the case. She does have bibasilar Rales and history of CHF. Would agree with running the patient on the short goods drier side as her blood pressure tolerates. Encourage out of bed to chair and incentive spirometry is much as tolerated. 2. Hypoxia - In the setting of multifocal infiltrative processes. Again, continue with aggressive pulmonary toileting including flutter valve and incentive spirometry. Encourage out of bed to chair. Titrate down supplemental oxygen as tolerated. 3. COPD - Is managed by her primary care provider in the outpatient setting on Anoro and as needed albuterol inhaler. The patient has not tolerated hypertonic saline secondary to irritation and associated tachycardia. Consider transitioning the patient to Xopenex on an as-needed basis for her nebulizer treatments to help with tachycardia. Will schedule albuterol for now. She is not overtly bronchospastic on exam and has more bibasilar Rales at this point. Uncertain of the utility of steroids at this time and the patient has had adverse reaction and is reluctant to additional steroids at this point. Should be noted that her random cortisol was markedly low and her blood pressure has been on the softer side. May benefit from Solu-Cortef and/or Florinef, particularly in the ill patient. 4. CHF - Continue with diuresis as blood pressure tolerates 5. Goals of care - Had an extensive discussion with the patient and her sister at bedside. She reports that she has previously been reluctant to the idea of endotracheal intubation and mechanical ventilation. Also reviewed resuscitative efforts including CPR, shocks, medications, etc. They are uncertain at this time, but will discuss this as a family. I do feel that goals of care discussion is important in this patient who is showing an unfortunate decline, particularly with aggressive management of her infiltrative lung process. Thank you for allowing us to precipitate in care of this pleasant patient. Please feel free to reach out for any other questions or concerns. Supervising Physician Co-Signing Physician Notes Patient seen and examined. EMR reviewed. Discussed with critical care MARC and agree with assessment plan as noted. Also discussed with ICU nurse and with the hospitalist throughout the day. 73-year-old female with multiple complex medical issues had evidence of increased interstitial markings on the CT scan performed about 7 months ago. The findings on her CT scan today represent a progression of the interstitial lung disease of unclear etiology. She does have some periorbital erythema she h as been initiated on broad-spectrum antibiotics but I am not convinced this is a bacterial pneumonia process. I think it more likely resents progression of her interstitial lung disease. Discussed with the patient that options at this point in time include high-dose immunosuppression or steroids. Will conduct a serological evaluation and start the patient on steroids. She agrees. She is agreeable to short-term intubation mechanical ventilation but does not want to be on a ventilator long-term and would not want a tracheostomy. Will try and keep the patient on the dry side although her kidney function is mildly impaired. Will continue high flow oxygen for now. If the patient fails then progresses to respiratory failure, could consider bronchoscopy with BAL at that point in time. She is currently clinically too unstable to consider bronchoscopy currently Will keep n.p.o. pending declaration of her respiratory status. A total of 95 minutes in critical care time was spent evaluating managing and stabilization of this patient History of Present Illness Reason for Consultation: multifocal pneumonia, increasing SOB Requesting Physician: Dr. Boateng Attending Physician: Juan Boateng MD History of Present Illness Patient is a 73-year-old female with a significant past medical history of CHF, chronic kidney disease, A-fib, dyslipidemia, hypothyroidism, GERD, aortic stenosis status post TAVR, obesity, and prior history of tobacco abuse who was admitted the setting of increasing shortness of breath, hypoxia, and findings of multifocal pneumonia process. The patient reports a [id number] history of smoking. She smoked 2 packs a day for 45 years. She quit cold turkey 5 years ago and has been tobacco free since. She does not follow with pulmonary medicine in the outpatient setting. She is managed on Anoro and as needed albuterol inhaler alone in the outpatient setting. She is uncertain if she is ever undergone formal pulmonary function testing. She states that she has had an increasing productive cough over the last 2 weeks which culminated in worsening dyspnea and visit to the emergency department. She describes some occasional intermittent RIGHT sided chest pain which is worse with coughing. She has had no hemoptysis. No fevers or chills. No recent sick contacts. Additionally, the patient denies any recent long distance travel, history of malignancy, or family history of blood clots/bleeding disorders. CT that was obtained upon arrival demonstrates bilateral multifocal infiltrative processes with some mild associated mediastinal adenopathy. She has been treated with doxycycline, cefepime, and vancomycin. Her blood pressures have been relatively soft and midodrine was initiated. Her random cortisol had been low as well. Upon evaluation in room 2 [facility], the patient is awake, alert, and oriented. She states that she had chest discomfort and associated shortness of breath with her nebulizer treatment this morning. This seems to be associated with the hypertonic saline. She feels better now and reports better oxygenation. She denies complaints of chest pain at this time, but had reported some RIGHT-sided chest pain during coughing episodes this morning. On review of patient documentation, she had been treated for MRSA pneumonia in July 2022 with associated bacteremia and had underwent 6 weeks of IV antibiotics for presumed endocarditis. She also carries a history of recurrent urinary tract infections. Allergies Allergy/AdvReac Type Severity Reaction Status Date / Time dog dander Allergy Intermediate Sneezing Verified 10/11/23 11:38 azithromycin Allergy Rash Verified 10/11/23 11:38 Corticosteroids Allergy Rash Verified 10/11/23 11:38 (Glucocorticoids) egg Allergy SPECIFIC-DUCK Verified 10/11/23 11:38 EGG CAUSED FACIAL SWELLING gabapentin Allergy "went very Verified 10/11/23 11:38 loopy" nystatin Allergy Rash Verified 10/11/23 11:38 pollen extracts Allergy HAYFEVER Verified 10/11/23 11:38 methylprednisolone AdvReac Unknown Verified 10/11/23 11:38 [From Depo-Medrol] Home Medications Medication Instructions Recorded Confirmed Type ipratropium 0.5 mg-albuterol 3 mg 3 ml inhalation Q6H PRN Shortness 04/03/22 03/16/24 History (2.5 mg base)/3 mL nebulization Of Breath Or Wheezing soln albuterol sulfate 90 mcg/actuation 2 puff inhalation QID PRN 09/02/22 03/16/24 Rx aerosol inhaler (Ventolin HFA) Shortness Of Breath Or Wheezing #6.7 grams amiodarone 200 mg tablet 200 mg PO QAM #30 tabs 09/02/22 03/16/24 Rx ascorbic acid (vitamin C) 500 mg 250 mg (1/2 x 500 mg) PO DAILY@12 09/02/22 03/16/24 Rx tablet #30 tabs ferrous sulfate 325 mg (65 mg 325 mg PO DAILY@12 #30 tabs 09/02/22 03/16/24 Rx iron) tablet metoprolol succinate 25 mg capsule 25 mg PO QAM #30 ea 09/02/22 03/16/24 Rx sprinkle, ext. release 24 hr pantoprazole 40 mg tablet,delayed 40 mg PO BID #60 tabs 09/02/22 03/16/24 Rx release simvastatin 10 mg tablet 10 mg PO HS #30 tabs 09/02/22 03/16/24 Rx furosemide 20 mg tablet 40 mg PO QAM 07/16/23 03/16/24 History tramadol 50 mg tablet 50 mg PO BID PRN pain 07/16/23 03/16/24 History acetaminophen 500 mg tablet 1,000 mg PO TID 10/02/23 03/16/24 History aspirin 81 mg chewable tablet 81 mg PO QAM 10/02/23 03/16/24 History clopidogrel 75 mg tablet 75 mg PO QAM 10/02/23 03/16/24 History famotidine 10 mg tablet 10 mg PO QAM 10/02/23 03/16/24 History fluticasone propionate 110 1 inh inhalation QAM 10/02/23 03/16/24 History mcg/actuation HFA aerosol inhaler levothyroxine 50 mcg tablet 50 mcg PO QAM 10/02/23 03/16/24 History magnesium oxide 400 mg PO BID 10/02/23 03/16/24 History topiramate 50 mg tablet (Topamax) 25 - 50 mg PO UD 10/02/23 03/16/24 History triamcinolone acetonide 0.5 % 1 applic topical BID 03/16/24 03/16/24 History topical cream (Triderm) Patient History Medical History Hx MRSA infection 07/2022, went to [facility] from [facility]>transferred to [place] for 13 days 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 Hx of aortic valve stenosis History of anemia no current issues Hx of acute respiratory failure 07/2023, hospitalized at [facility] w/pneumonia and UTI; per sister-pt cannot lay flat when sleeping Congestive heart failure COPD (chronic obstructive pulmonary disease) daily and prn inh; also has neb prn>not used often Kidney stones hx Osteoarthritis Stomach ulcer hx ~2009 Migraine SOB (shortness of breath) on exertion hx Cardiac murmur hx Surgical History Hx of cardiac catheterization 2018, preoperative for TAVR, [facility], no stents; f/u [facility] cardio. Hx of cholecystectomy S/P TAVR (transcatheter aortic valve replacement) 05/09/2019, [facility]; f/u [facility] History of esophagogastroduodenoscopy (EGD) History of colonoscopy History of cystoscopy Family History Father Family history of diabetes mellitus Social History (Updated 03/16/24 @ 11:51 by Mireille De Guzman RN) Smoking Status: Former smoker Tobacco Type: Cigarettes Cigarettes Per Day: QUIT 2 MONTHS AGO; Smoking End Date: 2018; Second Hand Exposure: No; Do You Dip or Chew Tobacco: No; Tobacco Cessation Education Requested by Patient: No Hx Alcohol Use: No Hx Substance Use: No Preferred Language: Bolivian Communication Ability: Effective Stem Shaper Required: No Beliefs That Will Affect Care: None Current Living Situation: Family Current Living Situation Comment: Lives at home with 2 sisters Other Information That Helps Us Care for You: No Feels Safe at Home: Yes Safety Concerns: Feels Safe At This Time Assistive Devices: Glasses, Stair Lift, Walker and Wheelchair Review of Systems Review of Systems: A complete 10 point review of systems was reviewed with the patient with pertinent positives and negatives as per history of present illness. All else were negative. Physical Exam Physical Exam: VITAL SIGNS Vital signs and nursing notes were reviewed. GENERAL 73-year-old female appearing her stated age who is in no acute distress. Communicates well with provider and answers questions appropriately. SKIN Without rashes or lesions. NOSE Midline and without cyanosis. No epistaxis or purulent drainage noted. MOUTH/OROPHARYNX Without perioral cyanosis. NECK Neck with FROM. LUNGS Chest wall evaluation demonstrates normal chest wall A:P diameter. Auscultation reveals diminished breath sounds with crackles at the bases bilaterally. CARDIAC RRR with S1/S2. No murmur, rubs, or gallops appreciated. ABDOMEN Abdominal inspection demonstrates an obese abdomen. BS normoactive all four quadrants. No tenderness, palpable masses, or ascites noted. EXTREMITIES Nail clubbing not present. No peripheral cyanosis. Mild bilateral pretibial edema present. +3/5 radial palpated throughout. PSYCH A&Ox3 and cooperates fully with examiner. Pt is very pleasant and interacts well with examiner. Results & Data Results & Data Vital Signs (Past 12 Hours) Vital Signs Temp Pulse Pulse Resp BP Pulse Ox O2 Del Method 03/19/24 11:40 36.5 C 61 20 84/54 L 91 Oxymask 03/19/24 11:31 86 16 91 Oxymask 03/19/24 11:28 Oxymask 03/19/24 09:11 112 H 03/19/24 08:13 36.6 C 114 H 22 81/49 L 89 L Oxymask 03/19/24 07:16 57 L 22 91 Oxymask 03/19/24 04:06 80 22 93 Oxymask 03/19/24 03:53 36.4 C L 108 H 28 H 98/60 L 91 Oxymask O2 Flow Rate 03/19/24 11:40 5 03/19/24 11:31 6 03/19/24 11:28 6 03/19/24 09:11 03/19/24 08:13 5 03/19/24 07:16 6 03/19/24 04:06 5 03/19/24 03:53 6 PG Care Time/CCT Total # of Minutes Spent Total Time Spent with Patient: Total time spent is greater than 50% in coordination of care (as documented) at patient's floor/unit and/or counseling patient: Coding Level of Care Code 82912 CRITICAL CARE EA ADD 30M Diagnoses Bilateral pneumonia J18.9 Hypoxia R09.02 SOB (shortness of breath) R06.02 COPD (chronic obstructive pulmonary disease) J44.9 CHF (congestive heart failure) I50.9 Morbid obesity E66.01
[2024-03-19] MEDS: MIDODRINE HCL 10 MG TAB PO SCH (12:50)
[2024-03-19] MEDS: BENZONATATE 100 MG CAPSULE PO SCH (12:51)
[2024-03-19] MEDS: ALBUTEROL HFA 8 GM INHALER INH SCH (14:24)
[2024-03-19] MEDS ORDERED: IPRATROPIUM BROMIDE NEB SOLN 0.02% 0.5MG/2.5ML VIAL INH SCH (15:00)
--- NOTE | 2024-03-19 15:17 | XRay Report ---
XR chest 1V portable CLINICAL HISTORY: Increasing respiratory distress. COMPARISON STUDY: Chest CT March 16, 2024. Chest radiograph March 18, 2024. FINDINGS: Prosthetic aortic valve is incidentally noted. Cardiomegaly is unchanged. There is no pneum othorax. No definite pleural effusions are present. There has been significant progression of extensi ve bilateral airspace opacities since prior exam. IMPRESSION: Extensive bilateral airspace opacities which have significantly progressed. The findings favor multifocal pneumonia. ACT 112: Negative or not required by law. Electronically signed by: Shawn Juarez M.D. 03/19/2024 3:15 PM
[2024-03-19 15:37] LABS: iSTAT Arterial Blood Gas HCO3 21 meg/L (19-24); iSTAT Arterial Blood Gas pCO2 35 mmHg (35-46); iSTAT Arterial Blood Gas pH 7.38 (7.35-7.45); iSTAT Arterial Blood Gas pO2 58 mmHg (80-95); iSTAT Carbon Dioxide 22 mmol/L (24-31); iSTAT Hematocrit 27 % (37-47); iSTAT Hemoglobin 9.2 g/dl (12.0-16.0); iSTAT Potassium 3.7 mmol/L (3.3-5.0); iSTAT Sodium 144 mmol/L (135-144)
[2024-03-19] MEDS ORDERED: methylPREDNISolone 125 MG/2 ML VIAL IV SCH (16:15)
[2024-03-19 16:32] LABS: C Reactive Protein 24.67 mg/dl (0-0.5)
[2024-03-19] MEDS: methylPREDNISolone 40 MG in SYRINGE 0 ML IV SCH (17:05)
--- NOTE | 2024-03-19 18:29 | Electrocardiogram Report ---
Test Reason : Blood Pressure : */* mmHG Vent. Rate : 120 BPM Atrial Rate : 120 BPM P-R Int : 146 ms QRS Dur : 88 ms QT Int : 320 ms P-R-T Axes : 46 31 193 degrees QTcB Int : 452 ms Sinus tachycardia Abnormal ECG When compared with ECG of 18-Mar-2024 13:56, ST now depressed in Anterolateral leads T wave inversion now evident in Inferior leads T wave inversion more evident in Lateral leads Confirmed by Cy Moreau ([id number]) on 03/19/2024 6:29:04 PM Referred By: REFERRED SELF Confirmed By: Cy Moreau
[2024-03-20 05:38] LABS: Hematocrit (blood only) 27.2 % (37.0-47.0); Hemoglobin 8.7 g/dl (12.0-16.0); Mean Platelet Volume 10.4 fL (9.4-12.4); Platelet Count 307 K/uL (130-400); RDW Coefficient of Variation 14.6 % (11.5-14.5); RDW Standard Deviation 53.3 fL (36.4-46.3); Red Blood Count 2.72 M/uL (4.20-5.40); White Blood Count 18.49 K/ul (4.8-10.8)
[2024-03-20 05:53] LABS: BUN Creatinine Ratio 16.8 (10-20); Calcium 9.2 mg/dl (8.6-10.3); Creatinine Clr Calc Pharmacy 34.3 ml/min; Potassium 4.2 mmol/L (3.5-5.1)
[2024-03-20 06:00] LABS: Basophils # (auto) 0.03 K/uL (0.00-0.20); Basophils % (auto) 0.2 %; Eosinophils # (auto) 0.01 K/uL (0.00-0.50); Eosinophils % (auto) 0.1 %; Immature Granulocytes # (auto) 0.09 K/uL (0.01-0.20); Immature Granulocytes % (auto) 0.5 %; Lymphocytes # (auto) 1.14 K/uL (1.20-3.40); Lymphocytes % (auto) 6.2 %; Monocytes # (auto) 0.28 K/uL (0.11-0.59); Monocytes % (auto) 1.5 %; Neutrophils # (auto) 16.94 K/uL (1.40-6.50); Neutrophils % (auto) 91.5 %; Polychromasia 1+
--- NOTE | 2024-03-20 07:58 | Critical Care Progress Note ---
Date of Service March 20, 2024 Assessment & Plan (1) Bilateral pneumonia: (2) Hypoxia: (3) SOB (shortness of breath): (4) COPD (chronic obstructive pulmonary disease): (5) CHF (congestive heart failure): (6) Morbid obesity: Plan IMPRESSION: 73-year-old female with a significant past medical history of COPD, tobacco abuse, MRSA pneumonia, CHF, CKD, and A-fib who presents in the setting of multifocal infiltrative process with associated hypoxemia. 24-hour events: Patient was admitted to the hospital with a diagnosis of multifocal pneumonia. Her oxygen requirement escalated and she was transferred to the ICU. Review of her scans demonstrated that this probably represents progression of interstitial lung disease. She was started on steroids and has had stabilized/improvement oxygen requirements overnight. She remains hem odynamically stable. RECOMMENDATIONS: 1. Neurologic: No current issues. Continue to follow clinically. Out of bed to chair as tolerated. Initiate PT and OT. 2. Respiratory: Diffuse subpleural parenchymal opacities. These were present on CT scan dating back to June of this year and appear progressed. Suspicion for progression of interstitial lung disease rather than an infectious etiology. Would continue antibiotics for now but complete 3-day course of empiric therapy in the absence of clinical symptoms such as fever, leukocytosis, or cultures which turned positive. Otherwise we will keep her on steroids and follow-up with her serological evaluation. She is too unstable and a poor surgical candidate which would not likely alter management at this point in time. Determination of long-term immune suppression will depend on results of serological evaluation as well as clinical response. May consider PJP prophylaxis at some point. Clinical notes indicates COPD. Unclear if the patient actually has COPD. Will need outpatient correlation with PFTs at some point. Continue to wean oxygen as tolerated. 3. Cardiovascular: Hemodynamically stable. Low cortisol as noted below. Holding metoprolol pending improvement in the patient's hemodynamic status. History of atrial arrhythmias but will hold amiodarone given interstitial lung disease at this point time 4. GI: No current issues. 5. Renal: Serum creatinine improving. Repeat urinalysis to assess for blood or active urinary sediment. Review of her last urinalysis back in June was cont aminated with epithelial cells. 6. ID: Day #3 cefepime doxycycline vancomycin. Can likely discontinue antibiotics after 3-day empiric course. 7. Endocrine: Relative adrenal insufficiency. Should be covered by steroids used for interstitial lung disease. Glycemic control per protocol 8. Heme-onc: Mild anemia. Stable with no evidence of ongoing bleeding. No indication for transfusion currently. Will observe in the ICU pending improvement in her oxygen requirement. The above recommendations and plan were discussed with the patient and family members at bedside. Questions were answered to the best of my ability Admission and Anticipated Discharge Date Admission Date: March 16, 2024 Subjective Patient seen and examined. EMR reviewed. Discussed with bedside critical care nurse and on multidisciplinary rounds. Patient reports that she feels her vilma thing is better. She is coughing and producing small amounts of yellow phlegm but has not had any hemoptysis. She denies any chest pain. She is tolerating a diet. No nausea or vomiting. She is tolerating the steroids without any significant adverse effect. Review of Systems Review of Systems: All systems reviewed & are unremarkable except as noted in Subjective Physical Exam Constitutional: WD/WN, vitals as above Neck: trachea midline, no thyromegaly Respiratory: no respiratory distress, no labored breathing, no cough and not tachypneic Auscultation: + crackles and + rhonchi Cardiovascular: RRR, no murmur, no edema Gastrointestinal (Abdomen): normal bowel sounds, soft, nontender, no hepatosplenomegaly Musculoskeletal: Extremities: extremities normal to inspection Skin: no rashes, warm and dry Neurologic: Nonfocal exam Lymphatic: no cervical lymphadenopathy Results & Data Results & Data Vital Signs (Past 12 Hours) Vital Signs Temp Pulse Pulse Resp BP Pulse Ox Pulse Ox 03/20/24 07:20 72 20 96 03/20/24 07:19 72 20 96 03/20/24 04:00 92 03/20/24 03:41 72 27 H 95 03/20/24 03:01 122/64 03/20/24 03:01 122/64 03/20/24 03:01 122/64 03/20/24 03:00 36.4 C L 77 31 H 91 03/20/24 02:15 36.5 C 78 22 90 03/20/24 01:06 36.6 C 71 21 95 03/20/24 01:01 141/66 H 03/20/24 01:01 141/66 H 03/20/24 01:01 141/66 H 03/20/24 00:57 36.6 C 75 27 H 93 03/20/24 00:15 36.7 C 70 23 94 03/20/24 00:01 120/57 L 03/20/24 00:01 120/57 L 03/20/24 00:00 93 03/19/24 23:57 36.8 C 74 28 H 96 03/19/24 23:42 86 25 H 93 03/19/24 23:12 36.9 C 81 30 H 92 03/19/24 23:12 81 03/19/24 23:01 139/67 03/19/24 22:48 37.0 C 74 23 95 03/19/24 22:09 03/19/24 22:03 37.2 C 79 28 H 95 03/19/24 22:01 122/57 L 03/19/24 22:01 122/57 L 03/19/24 21:54 37.2 C 81 25 H 95 03/19/24 21:12 37.2 C 82 25 H 93 03/19/24 21:01 142/61 H 03/19/24 20:51 37.3 C 85 35 H 91 03/19/24 20:06 85 32 H 93 03/19/24 20:03 80 27 H 93 03/19/24 20:00 137/64 03/19/24 20:00 137/64 03/19/24 20:00 137/64 03/19/24 20:00 137/64 O2 Del Method O2 Del Method O2 Flow Rate O2 Flow Rate FiO2 03/20/24 07:20 High Flow Nasal Cannula 40 55 03/20/24 07:19 High Flow Nasal Cannula 40 55 03/20/24 04:00 High Flow Nasal Cannula 40 03/20/24 03:41 High Flow Nasal Cannula 40 55 03/20/24 03:01 03/20/24 03:01 03/20/24 03:01 03/20/24 03:00 03/20/24 02:15 03/20/24 01:06 03/20/24 01:01 03/20/24 01:01 03/20/24 01:01 03/20/24 00:57 03/20/24 00:15 03/20/24 00:01 03/20/24 00:01 03/20/24 00:00 High Flow Nasal Cannula 40 03/19/24 23:57 03/19/24 23:42 High Flow Nasal Cannula 40 55 03/19/24 23:12 03/19/24 23:12 03/19/24 23:01 03/19/24 22:48 03/19/24 22:09 High Flow Nasal Cannula 40 55 03/19/24 22:03 03/19/24 22:01 03/19/24 22:01 03/19/24 21:54 03/19/24 21:12 03/19/24 21:01 03/19/24 20:51 03/19/24 20:06 High Flow Nasal Cannula 40 55 03/19/24 20:03 03/19/24 20:00 03/19/24 20:00 03/19/24 20:00 03/19/24 20:00 Critical Care Results & Data Vital Signs (Past 12 Hours) Vital Signs Temp Pulse Pulse Resp BP Pulse Ox Pulse Ox 03/20/24 08:16 90 03/20/24 08:01 125/62 03/20/24 08:00 36.6 C 93 H 27 H 84 L 03/20/24 07:20 72 20 96 03/20/24 07:19 72 20 96 03/20/24 07:03 36.5 C 71 32 H 95 03/20/24 07:01 126/77 03/20/24 07:01 126/77 03/20/24 06:57 36.5 C 69 25 H 95 03/20/24 06:45 36.5 C 68 28 H 95 03/20/24 04:00 92 03/20/24 03:41 72 27 H 95 03/20/24 03:01 122/64 03/20/24 03:01 122/64 03/20/24 03:01 122/64 03/20/24 03:00 36.4 C L 77 31 H 91 03/20/24 02:15 36.5 C 78 22 90 03/20/24 01:06 36.6 C 71 21 95 03/20/24 01:01 141/66 H 03/20/24 01:01 141/66 H 03/20/24 01:01 141/66 H 03/20/24 00:57 36.6 C 75 27 H 93 03/20/24 00:15 36.7 C 70 23 94 03/20/24 00:01 120/57 L 03/20/24 00:01 120/57 L 03/20/24 00:00 93 03/19/24 23:57 36.8 C 74 28 H 96 03/19/24 23:42 86 25 H 93 03/19/24 23:12 36.9 C 81 30 H 92 03/19/24 23:12 81 03/19/24 23:01 139/67 03/19/24 22:48 37.0 C 74 23 95 03/19/24 22:09 03/19/24 22:03 37.2 C 79 28 H 95 03/19/24 22:01 122/57 L 03/19/24 22:01 122/57 L 03/19/24 21:54 37.2 C 81 25 H 95 O2 Del Method O2 Del Method O2 Flow Rate O2 Flow Rate FiO2 03/20/24 08:16 03/20/24 08:01 03/20/24 08:00 03/20/24 07:20 High Flow Nasal Cannula 40 55 03/20/24 07:19 High Flow Nasal Cannula 40 55 03/20/24 07:03 03/20/24 07:01 03/20/24 07:01 03/20/24 06:57 03/20/24 06:45 03/20/24 04:00 High Flow Nasal Cannula 40 03/20/24 03:41 High Flow Nasal Cannula 40 55 03/20/24 03:01 03/20/24 03:01 03/20/24 03:01 03/20/24 03:00 03/20/24 02:15 03/20/24 01:06 03/20/24 01:01 03/20/24 01:01 03/20/24 01:01 03/20/24 00:57 03/20/24 00:15 03/20/24 00:01 03/20/24 00:01 03/20/24 00:00 High Flow Nasal Cannula 40 03/19/24 23:57 03/19/24 23:42 High Flow Nasal Cannula 40 55 03/19/24 23:12 03/19/24 23:12 03/19/24 23:01 03/19/24 22:48 03/19/24 22:09 High Flow Nasal Cannula 40 55 03/19/24 22:03 03/19/24 22:01 03/19/24 22:01 03/19/24 21:54 Lab & Micro Results (Past 24 Hours) RBC 2.72 M/uL (4.20-5.40) L 03/20/24 WBC 18.49 K/ul (4.8-10.8) H 03/20/24 Hgb 8.7 g/dl (12.0-16.0) L 03/20/24 Hct 27.2 % (37.0-47.0) L 03/20/24 MCV 100.0 fL (80.0-100.0) 03/20/24 MCH 32.0 pg (25.0-34.0) 03/20/24 MCHC 32.0 g/dL (32.0-36.0) 03/20/24 RDW Standard Deviation 53.3 fL (36.4-46.3) H 03/20/24 RDW Coefficient of Variation 14.6 % (11.5-14.5) H 03/20/24 Plt Count 307 K/uL (130-400) 03/20/24 MPV 10.4 fL (9.4-12.4) 03/20/24 Neutrophils (%) (Auto) 91.5 % 03/20/24 Lymphocytes (%) (Auto) 6.2 % 03/20/24 Monocytes # (Auto) 0.28 K/uL (0.11-0.59) 03/20/24 Eosinophils # (Auto) 0.01 K/uL (0.00-0.50) 03/20/24 Immature Granulocyte % (Auto) 0.5 % 03/20/24 Neutrophils # (Auto) 16.94 K/uL (1.40-6.50) H 03/20/24 Lymphocytes # (Auto) 1.14 K/uL (1.20-3.40) L 03/20/24 Monocytes # (Auto) 0.28 K/uL (0.11-0.59) 03/20/24 Eosinophils # (Auto) 0.01 K/uL (0.00-0.50) 03/20/24 Basophils # (Auto) 0.03 K/uL (0.00-0.20) 03/20/24 Immature Granulocyte # (Auto) 0.09 K/uL (0.01-0.20) 4 Polychromasia 1+ 03/20/24 Na 141 mmol/L (136-145) 03/20/24 K 4.2 mmol/L (3.5-5.1) 03/20/24 Cl 112 mmol/L (98-107) H 03/20/24 CO2 23 mmol/L (21-32) 03/20/24 Anion Gap 6 (3-11) 03/20/24 BUN 32 mg/dl (6-23) H 03/20/24 Creatinine 1.90 mg/dl (0.6-1.2) H 03/20/24 BUN/Creatinine Ratio 16.8 (10-20) 03/20/24 Glu 149 mg/dl (70-99(Fasting)) H 03/20/24 Ca 9.2 mg/dl (8.6-10.3) 03/20/24 Calcium Level 9.2 mg/dl (8.6-10.3) 03/20/24 04:57 Microbiology 03/16/24 23:05 Gram Stain - Final Sputum, Expectorated Sputum Culture - Final Light normal compa. Diagnostic Findings (Past 24 Hours) Chest X-Ray 03/19/24 14:25 XR chest 1V portable CLINICAL HISTORY: Increasing respiratory distress. COMPARISON STUDY: Chest CT March 16, 2024. Chest radiograph March 18, 2024. FINDINGS: Prosthetic aortic valve is incidentally noted. Cardiomegaly is unchanged. There is no pneumothorax. No definite pleural effusions are present. There has been significant progression of extensive bilateral airspace opacities since prior exam. IMPRESSION: Extensive bilateral airspace opacities which have significantly pro gressed. The findings favor multifocal pneumonia. ACT 112: Negative or not required by law. Electronically signed by: Shawn Juarez M.D. 03/19/2024 3:15 PM I & O Totals 24 Hours 03/19/24 03/20/24 03/21/24 06:59 06:59 06:59 Intake Total 3465.000 / 3465.000 250 / 250 Output Total 2250 / 2250 1900 / 1900 Balance 1215.000 / 1215.000 -1650 / -1650 Cumulative 03/16/24 02:02 thru 03/20/24 06:23 Intake Total 9845.000 Output Total 6503 Balance 3342.000 RT Ventilator Mngmt (Last Documented) Ventilator Ordered Settings Respiratory Rate 27 03/20/24 08:00 Fraction of Inspired Oxygen 55 03/20/24 07:20 Ventilator - PT Measurements Respiratory Rate 27 Coding Level of Care Code 32139 SUB INP/OBS CARE 3/50MIN Diagnoses Bilateral pneumonia J18.9 Hypoxia R09.02 SOB (shortness of breath) R06.02 COPD (chronic obstructive pulmonary disease) J44.9 CHF (congestive heart failure) I50.9 Morbid obesity E66.01
[2024-03-20 11:17] LABS: Appearance Urine Cloudy (Clear); Bacteria Urine Automated None Seen (None Seen); Bilirubin Urine Negative (Negative); Blood Urine Negative (Negative); Color Urine Yellow; Glucose Urine UA Negative (Negative); Granular Casts Urine Present /lpf (None Prsent); Ketones Urine Negative (Negative); Leukocyte Esterase Urine 1+ (Negative); Mucus Urine Present (None Prsent); Nitrite Urine Negative (Negative); Protein Urine 2+ (Negative); RBC Urine Automated 0-2 /hpf (0-2); Specific Gravity Urine 1.021 (1.000-1.030); Urobilinogen Urine Negative (Negative); WBC Urine Automated 21-50 /hpf (0-5)
--- NOTE | 2024-03-20 15:03 | Hospitalist Progress Note ---
Date of Service March 20, 2024 Assessment & Plan (1) SOB (shortness of breath): Plan: 73-year-old female with past medical history significant for dyslipidemia, COPD, asthma, history of multifocal pneumonia, chronic heart failure with preserved ejection fraction, aortic stenosis, paroxysmal atrial fibrillation, status post TAVR, obesity, GERD, CKD stage IV, macrocytic anemia, history of tobacco use, currently living with her sister comes because of ongoing cough bringing up phlegm and right-sided chest pain on and off for last 2 weeks. Patient states since last 2 weeks feeling short of breath and having cough. Acute hypoxic respiratory failure Multifocal pneumonia H/O COPD, tobacco abuse, MRSA pneumonia Suspected progression of interstitial lung disease Patient presented with low oxygen saturation, tachypnea, cough and shortness of breath. Prior history of MRSA pneumonia and bacteremia in 2022 --Chest CT:Extensive alveolar opacities throughout the lungs, including groundglass opacities and foci of developing consolidation. The findings favor multifocal pneumonia. Pulmonary edema is considered less likely. Follow-up chest CT in 3 months to ensure resolution is recommended. Cardiomegaly. Dilatation of the central pulmonary arteries suggestive of pulmonary hypertension. No pleural effusion. No pneumothorax. Mildly enlarged mediastinal lymph nodes, similar to prior exam. These can be assessed on follow-up CT to ensure stability. -MRSA nares negative -Blood culture: negative to date -sputum cx- light normal compa present. -Serological evaluation pending -Continue on IV cefepime and doxycycline for now Continue nebs Started on IV Solu-Medrol -- Appreciate pulmonary/critical care input Patient will require outpatient PFTs Wean supplemental oxygen as able Amiodarone held given possible interstitial lung disease Persistent hypotension Patient had multiple episode of hypotension on the night of 03/17- 03/18 She also reports dizziness while standing up at home as well. Lactate within normal limits Random cortisol 8.16 Cosyntropin stimulation test negative. Increased midodrine to 10 mg 3 times daily Monitor BP Mild troponin elevation Demand ischemia secondary to above Monitor History of COPD History of asthma History of tobacco abuse quit 2018. Smoked half pack a day for 30 years Continue home inhalers, Nebs CHF with preserved ejection fraction, compensated Aortic stenosis status post TAVR Lasix resumed on 03/19 Monitor for volume overload Paroxysmal atrial fibrillation Hold metoprolol and amiodarone for now Not anticoagulated secondary to GI bleed Monitor Nonobstructive CAD Continue Plavix, aspirin ,statin and beta-nikhil CKD stage IV Presented with creatinine 1.9 around baseline Avoid nephrotoxic agents Monitor urine output Anemia Anemia of chronic disease Hemoglobin 8 to 9 On iron supplement. GERD Continue Protonix, famotidine Migraines On Topamax Tramadol as needed Hypothyroidism Continue levothyroxine Morbid obesity BMI 41.8 Counseling as outpatient DVT Px Heparin SQ Code Status Full code Admission and Anticipated Discharge Date Admission Date: March 16, 2024 Subjective Patient is seen and examined at bedside States having cough with expectoration Dyspnea unchanged from yesterday Patient offers no other complaints Currently requiring high flow oxygen to maintain saturations Discussed in detail with patient's family at bedside and over the phone Denies any chest pain, hemoptysis, nausea, vomiting, abdominal pain Review of Systems Review of Systems: All systems reviewed & are unremarkable except as noted in Subjective Physical Exam Physical Exam: Physical Exam: Vitals signs as noted above General Appearance:Morbidly Obese, no apparent distress Head: normocephalic, Atraumatic Eyes: normal inspection, EOMI Neck: supple, Trachea midline Respiratory/Chest: Decreased breath sounds,+crackles, No accessory muscle use Cardiovascular: S1, S2, No murmur Abdomen/GI:Soft, Non tender, Bowel sounds present Extremities/Musculoskeletal:normal inspection, Trace edema Neurologic/Psych:AAOX3, grossly no focal neurological deficits Skin: normal color, warm Results & Data Results & Data Vital Signs (Past 12 Hours) Vital Signs Temp Pulse Pulse Resp BP Pulse Ox Pulse Ox 03/20/24 14:54 72 24 92 03/20/24 14:51 72 24 92 03/20/24 12:30 91 03/20/24 10:31 81 28 H 91 03/20/24 10:30 81 28 H 91 03/20/24 08:20 03/20/24 08:16 90 03/20/24 08:01 125/62 03/20/24 08:00 89 L 03/20/24 08:00 36.6 C 93 H 27 H 84 L 03/20/24 07:20 72 20 96 03/20/24 07:19 72 20 96 03/20/24 07:15 74 03/20/24 07:03 36.5 C 71 32 H 95 03/20/24 07:01 126/77 03/20/24 07:01 126/77 03/20/24 06:57 36.5 C 69 25 H 95 03/20/24 06:45 36.5 C 68 28 H 95 03/20/24 04:00 92 03/20/24 03:41 72 27 H 95 O2 Del Method O2 Del Method O2 Flow Rate O2 Flow Rate FiO2 03/20/24 14:54 High Flow Nasal Cannula 40 50 03/20/24 14:51 High Flow Nasal Cannula 40 50 03/20/24 12:30 High Flow Nasal Cannula 40 03/20/24 10:31 High Flow Nasal Cannula 40 50 03/20/24 10:30 High Flow Nasal Cannula 40 50 03/20/24 08:20 High Flow Nasal Cannula 40 50 03/20/24 08:16 03/20/24 08:01 03/20/24 08:00 High Flow Nasal Cannula 40 03/20/24 08:00 03/20/24 07:20 High Flow Nasal Cannula 40 55 03/20/24 07:19 High Flow Nasal Cannula 40 55 03/20/24 07:15 03/20/24 07:03 03/20/24 07:01 03/20/24 07:01 03/20/24 06:57 03/20/24 06:45 03/20/24 04:00 High Flow Nasal Cannula 40 03/20/24 03:41 High Flow Nasal Cannula 40 55 Laboratory Results Short CBC 03/20/24 Range/Units 04:57 WBC 18.49 H (4.8-10.8) K/ul Hgb 8.7 L (12.0-16.0) g/dl Hct 27.2 L (37.0-47.0) % Plt Count 307 (130-400) K/uL BMP 03/20/24 04:57 Sodium 141 Potassium 4.2 Chloride 112 H Carbon Dioxide 23 BUN 32 H Creatinine 1.90 H Glucose 149 H Calcium 9.2 Cardiac Enzymes 03/19/24 Range/Units 11:10 Total Creatine Kinase 35 (26-192) U/L Urine 03/20/24 Range/Units 09:45 Urine Color Yellow Urine Appearance Cloudy A (Clear) Urine pH 6.0 (4.5-7.5) Ur Specific [place] 1.021 (1.000-1.030) Urine Protein 2+ H (Negative) Urine Glucose (UA) Negative (Negative)
[2024-03-21 04:59] LABS: Hematocrit (blood only) 28.5 % (37.0-47.0); Mean Corpuscular Hgb Conc 31.6 g/dL (32.0-36.0); Mean Corpuscular Volume 98.3 fL (80.0-100.0); Mean Platelet Volume 10.2 fL (9.4-12.4); Platelet Count 354 K/uL (130-400); RDW Coefficient of Variation 14.6 % (11.5-14.5); RDW Standard Deviation 52.7 fL (36.4-46.3); White Blood Count 17.97 K/ul (4.8-10.8)
[2024-03-21 05:06] LABS: BUN Creatinine Ratio 23.8 (10-20); Calcium 9.7 mg/dl (8.6-10.3); Magnesium 2.6 mg/dl (1.7-2.4)
--- NOTE | 2024-03-21 08:24 | Critical Care Progress Note ---
Date of Service March 21, 2024 Assessment & Plan (1) Bilateral pneumonia: (2) Hypoxia: (3) SOB (shortness of breath): (4) COPD (chronic obstructive pulmonary disease): (5) CHF (congestive heart failure): (6) Morbid obesity: Plan IMPRESSION: 73-year-old female with a significant past medical history of COPD, tobacco abuse, MRSA pneumonia, CHF, CKD, and A-fib who presents in the setting of multifocal infiltrative process with associated hypoxemia. 24-hour events: Stable oxygenation. No new respiratory complaints. Complains of some symptoms which may be associated with thrush. RECOMMENDATIONS: 1. Neurologic: No current issues. Continue to follow clinically. Out of bed to chair as tolerated. Initiate PT and OT. 2. Respiratory: Diffuse subpleural parenchymal opacities. These were present on CT scan dating back to June of this year and appear progressed. Suspicion for progression of interstitial lung disease rather than an infectious etiology. Complete empiric course of steroids (5 days). Will trend procalcitonin. Continue high-dose steroids and await serological evaluation. Urinalysis did not show 20-50 white blood cells with some granular casts. No hematuria. Continue incentive spirometry. Out of bed to chair to improve pulmonary toilet. Wean oxygen as tolerated. Chest x-ray in a.m. 3. Cardiovascular: Hemodynamically stable. Low cortisol as noted below. Holding metoprolol pending improvement in the patient's hemodynamic status. History of atrial arrhythmias but will hold amiodarone given interstitial lung disease at this point time 4. GI: Exam consistent with thrush. Start oral nystatin. Patient reports allergy which is a rash however I think she can receive this medication in a monitored setting to see how she does. 5. Renal: Serum creatinine stable. Repeat urinalysis to assess for blood or active urinary sediment. Review of her last urinalysis back in June was contaminated with epithelial cells. 6. ID: Day #4/5 cefepime doxycycline vancomycin. Can likely discontinue antibiotics after 5-day empiric course 7. Endocrine: Relative adrenal insufficiency. Should be covered by steroids used for interstitial lung disease. Glycemic control per protocol 8. Heme-onc: Mild anemia. Stable with no evidence of ongoing bleeding. No indication for transfusion currently. Patient's oxygenation has been stable at this point in time with no evidence of clinical deterioration. The steroids may take quite some time to improve. At this point time I think she is appropriate to transfer out of the intensive care unit and continue current therapies. Will continue to follow with her from a pulmonary standpoint. The above recommendations and plan were discussed with the patient and critical care nurse bedside. Questions were answered to the best of my ability Admission and Anticipated Discharge Date Admission Date: March 16, 2024 Subjective Patient seen and examined. EMR reviewed. Discussed with bedside critical care nurse and on multidisciplinary rounds as well as with patient. Patient reports that her breathing is better. She did cough up some phlegm yesterday but she describes it as clear to yellow. No hemoptysis. She is complaining of some irritation of her tongue and teeth and may have developed some thrush associated with the steroids. She continues to have a variety of diffuse somatic complaints. Review of Systems Review of Systems: All systems reviewed & are unremarkable except as noted in Subjective Physical Exam Constitutional: WD/WN, vitals as above ENMT: White plaques on the tongue likely consistent with thrush Neck: trachea midline, no thyromegaly Respiratory: no respiratory distress, no labored breathing, no cough and not tachypneic Auscultation: + crackles and + rhonchi Cardiovascular: RRR, no murmur, no edema Gastrointestinal (Abdomen): normal bowel sounds, soft, nontender, no hepatosplenomegaly Musculoskeletal: Extremities: extremities normal to inspection Skin: no rashes, warm and dry Lymphatic: no cervical lymphadenopathy Results & Data Results & Data Vital Signs (Past 12 Hours) Vital Signs Temp Pulse Pulse Resp BP Pulse Ox Pulse Ox 03/21/24 07:20 76 26 H 92 03/21/24 06:06 36.9 C 60 21 94 03/21/24 06:01 124/44 L 03/21/24 06:01 124/44 L 03/21/24 05:54 36.8 C 63 21 94 03/21/24 05:01 126/45 L 03/21/24 05:01 126/45 L 03/21/24 05:00 36.7 C 64 28 H 93 03/21/24 04:03 36.8 C 75 31 H 88 L 03/21/24 04:01 109/53 L 03/21/24 04:01 109/53 L 03/21/24 04:00 96 03/21/24 03:57 36.8 C 80 33 H 84 L 03/21/24 03:52 56 L 20 93 03/21/24 03:12 36.8 C 59 L 22 93 03/21/24 03:01 122/48 L 03/21/24 03:01 122/48 L 03/21/24 02:51 36.7 C 73 21 90 03/21/24 02:03 36.6 C 67 22 93 03/21/24 02:01 142/49 H 03/21/24 02:01 142/49 H 03/21/24 02:00 36.6 C 68 19 94 03/21/24 01:01 140/64 03/21/24 01:01 140/64 03/21/24 01:00 36.5 C 71 22 95 03/21/24 00:52 73 17 93 03/21/24 00:06 36.7 C 89 26 H 85 L 03/21/24 00:01 135/51 L 03/21/24 00:00 65 03/21/24 00:00 96 03/20/24 23:57 36.8 C 85 34 H 88 L 03/20/24 23:54 130/45 L 03/20/24 23:54 130/45 L 03/20/24 23:54 130/45 L 03/20/24 23:51 36.8 C 79 34 H 87 L 03/20/24 23:03 36.9 C 66 23 94 03/20/24 22:00 36.9 C 62 19 94 03/20/24 21:17 36.8 C 69 27 H 95 03/20/24 20:27 76 23 93 O2 Del Method O2 Del Method O2 Flow Rate O2 Flow Rate FiO2 03/21/24 07:20 High Flow Nasal Cannula 30 60 03/21/24 06:06 03/21/24 06:01 03/21/24 06:01 03/21/24 05:54 03/21/24 05:01 03/21/24 05:01 03/21/24 05:00 03/21/24 04:03 03/21/24 04:01 03/21/24 04:01 03/21/24 04:00 High Flow Nasal Cannula 30 03/21/24 03:57 03/21/24 03:52 High Flow Nasal Cannula 30 60 03/21/24 03:12 03/21/24 03:01 03/21/24 03:01 03/21/24 02:51 03/21/24 02:03 03/21/24 02:01 03/21/24 02:01 03/21/24 02:00 03/21/24 01:01 03/21/24 01:01 03/21/24 01:00 03/21/24 00:52 High Flow Nasal Cannula 40 60 03/21/24 00:06 03/21/24 00:01 03/21/24 00:00 03/21/24 00:00 High Flow Nasal Cannula 40 03/20/24 23:57 03/20/24 23:54 03/20/24 23:54 03/20/24 23:54 03/20/24 23:51 03/20/24 23:03 03/20/24 22:00 03/20/24 21:17 03/20/24 20:27 High Flow Nasal Cannula 30 60 Laboratory Results Urinalysis: 2+ protein, 20-50 white blood cells with hyaline casts. No hematur ia and no red cell casts ESR elevated at 87 CPK normal at 35 CRP elevated at 24 Other serologies pending Critical Care Results & Data Vital Signs (Past 12 Hours) Vital Signs Temp Pulse Pulse Resp BP Pulse Ox Pulse Ox 03/21/24 07:20 76 26 H 92 03/21/24 06:06 36.9 C 60 21 94 03/21/24 06:01 124/44 L 03/21/24 06:01 124/44 L 03/21/24 05:54 36.8 C 63 21 94 03/21/24 05:01 126/45 L 03/21/24 05:01 126/45 L 03/21/24 05:00 36.7 C 64 28 H 93 03/21/24 04:03 36.8 C 75 31 H 88 L 03/21/24 04:01 109/53 L 03/21/24 04:01 109/53 L 03/21/24 04:00 96 03/21/24 03:57 36.8 C 80 33 H 84 L 03/21/24 03:52 56 L 20 93 03/21/24 03:12 36.8 C 59 L 22 93 03/21/24 03:01 122/48 L 03/21/24 03:01 122/48 L 03/21/24 02:51 36.7 C 73 21 90 03/21/24 02:03 36.6 C 67 22 93 03/21/24 02:01 142/49 H 03/21/24 02:01 142/49 H 03/21/24 02:00 36.6 C 68 19 94 03/21/24 01:01 140/64 03/21/24 01:01 140/64 03/21/24 01:00 36.5 C 71 22 95 03/21/24 00:52 73 17 93 03/21/24 00:06 36.7 C 89 26 H 85 L 03/21/24 00:01 135/51 L 03/21/24 00:00 65 03/21/24 00:00 96 03/20/24 23:57 36.8 C 85 34 H 88 L 03/20/24 23:54 130/45 L 03/20/24 23:54 130/45 L 03/20/24 23:54 130/45 L 03/20/24 23:51 36.8 C 79 34 H 87 L 03/20/24 23:03 36.9 C 66 23 94 03/20/24 22:00 36.9 C 62 19 94 03/20/24 21:17 36.8 C 69 27 H 95 03/20/24 20:27 76 23 93 O2 Del Method O2 Del Method O2 Flow Rate O2 Flow Rate FiO2 03/21/24 07:20 High Flow Nasal Cannula 30 60 03/21/24 06:06 03/21/24 06:01 03/21/24 06:01 03/21/24 05:54 03/21/24 05:01 03/21/24 05:01 03/21/24 05:00 03/21/24 04:03 03/21/24 04:01 03/21/24 04:01 03/21/24 04:00 High Flow Nasal Cannula 30 03/21/24 03:57 03/21/24 03:52 High Flow Nasal Cannula 30 60 03/21/24 03:12 03/21/24 03:01 03/21/24 03:01 03/21/24 02:51 03/21/24 02:03 03/21/24 02:01 03/21/24 02:01 03/21/24 02:00 03/21/24 01:01 03/21/24 01:01 03/21/24 01:00 03/21/24 00:52 High Flow Nasal Cannula 40 60 03/21/24 00:06 03/21/24 00:01 03/21/24 00:00 03/21/24 00:00 High Flow Nasal Cannula 40 03/20/24 23:57 03/20/24 23:54 03/20/24 23:54 03/20/24 23:54 03/20/24 23:51 03/20/24 23:03 03/20/24 22:00 03/20/24 21:17 03/20/24 20:27 High Flow Nasal Cannula 30 60 Lab & Micro Results (Past 24 Hours) RBC 2.90 M/uL (4.20-5.40) L 03/21/24 WBC 17.97 K/ul (4.8-10.8) H 03/21/24 Hgb 9.0 g/dl (12.0-16.0) L 03/21/24 Hct 28.5 % (37.0-47.0) L 03/21/24 MCV 98.3 fL (80.0-100.0) 03/21/24 MCH 31.0 pg (25.0-34.0) 03/21/24 MCHC 31.6 g/dL (32.0-36.0) L 03/21/24 RDW Standard Deviation 52.7 fL (36.4-46.3) H 03/21/24 RDW Coefficient of Variation 14.6 % (11.5-14.5) H 03/21/24 Plt Count 354 K/uL (130-400) 03/21/24 MPV 10.2 fL (9.4-12.4) 03/21/24 Na 142 mmol/L (136-145) 03/21/24 K 4.0 mmol/L (3.5-5.1) 03/21/24 Cl 112 mmol/L (98-107) H 03/21/24 CO2 23 mmol/L (21-32) 03/21/24 Anion Gap 7 (3-11) 03/21/24 BUN 46 mg/dl (6-23) H 03/21/24 Creatinine 1.93 mg/dl (0.6-1.2) H 03/21/24 BUN/Creatinine Ratio 23.8 (10-20) H 03/21/24 Glu 143 mg/dl (70-99(Fasting)) H 03/21/24 Ca 9.7 mg/dl (8.6-10.3) 03/21/24 Mg 2.6 mg/dl (1.7-2.4) H 03/21/24 04:31 Calcium Level 9.7 mg/dl (8.6-10.3) 03/21/24 04:31 I & O Totals 24 Hours 03/20/24 03/21/24 03/22/24 06:59 06:59 06:59 Intake Total 250 / 250 860 / 860 Output Total 1900 / 1900 2050 Balance -1650 / -1650 -1191 / -1191 Cumulative 03/16/24 02:02 thru 03/21/24 06:14 Intake Total 88597.000 Output Total 8554 Balance 2151.000 RT Ventilator Mngmt (Last Documented) Ventilator Ordered Settings Respiratory Rate 26 03/21/24 07:20 Fraction of Inspired Oxygen 60 03/21/24 07:20 Ventilator - PT Measurements Respiratory Rate 26 Coding Level of Care Code 04384 SUB INP/OBS CARE 3/50MIN Diagnoses Bilateral pneumonia J18.9 Hypoxia R09.02 SOB (shortness of breath) R06.02 COPD (chronic obstructive pulmonary disease) J44.9 CHF (congestive heart failure) I50.9 Morbid obesity E66.01
[2024-03-21] MEDS: NYSTATIN SUSP 500,000 U/5 ML UDC PO SCH (10:53)
--- NOTE | 2024-03-21 13:43 | Hospitalist Progress Note ---
Date of Service March 21, 2024 Assessment & Plan (1) SOB (shortness of breath): Plan: 73-year-old female with past medical history significant for dyslipidemia, COPD, asthma, history of multifocal pneumonia, chronic heart failure with preserved ejection fraction, aortic stenosis, paroxysmal atrial fibrillation, status post TAVR, obesity, GERD, CKD stage IV, macrocytic anemia, history of tobacco use, currently living with her sister comes because of ongoing cough bringing up phlegm and right-sided chest pain on and off for last 2 weeks. Patient states since last 2 weeks feeling short of breath and having cough. Acute hypoxic respiratory failure Multifocal pneumonia H/O COPD, tobacco abuse, MRSA pneumonia Suspected progression of interstitial lung disease Patient presented with low oxygen saturation, tachypnea, cough and shortness of breath. Prior history of MRSA pneumonia and bacteremia in 2022 --Chest CT:Extensive alveolar opacities throughout the lungs, including groundglass opacities and foci of developing consolidation. The findings favor multifocal pneumonia. Pulmonary edema is considered less likely. Follow-up chest CT in 3 months to ensure resolution is recommended. Cardiomegaly. Dilatation of the central pulmonary arteries suggestive of pulmonary hypertension. No pleural effusion. No pneumothorax. Mildly enlarged mediastinal lymph nodes, similar to prior exam. These can be assessed on follow-up CT to ensure stability. -MRSA nares negative -Blood culture: negative to date -sputum cx- light normal compa present. -Serological evaluation pending -Continue on IV cefepime and doxycycline Day #4 Continue nebs Continue IV Solu-Medrol--taper as able -- Appreciate pulmonary/critical care input Patient will require outpatient PFTs Currently requiring high flow oxygen to maintain saturation Wean supplemental oxygen as able Amiodarone held given possible interstitial lung disease Plan to repeat chest x-ray tomorrow Recheck procalcitonin Persistent hypotension Patient had multiple episode of hypotension on the night of 03/17- 03/18 She also reports dizziness while standing up at home as well. Lactate within normal limits Random cortisol 8.16 Cosyntropin stimulation test negative. Increased midodrine to 10 mg 3 times daily Monitor BP Mild troponin elevation Demand ischemia secondary to above Monitor Oral thrush Started on nystatin History of COPD History of asthma History of tobacco abuse quit 2018. Smoked half pack a day for 30 years Continue home inhalers, Nebs CHF with preserved ejection fraction, compensated Aortic stenosis status post TAVR Lasix resumed on 03/19 Monitor for volume overload Paroxysmal atrial fibrillation Hold metoprolol and amiodarone for now Not anticoagulated secondary to GI bleed Monitor Nonobstructive CAD Continue Plavix, aspirin ,statin and beta-nikhil CKD stage IV Presented with creatinine 1.9 around baseline Avoid nephrotoxic agents Monitor urine output Anemia Anemia of chronic disease Hemoglobin 8 to 9 On iron supplement. GERD Continue Protonix, famotidine Migraines On Topamax Tramadol as needed Hypothyroidism Continue levothyroxine Morbid obesity BMI 41.8 Counseling as outpatient DVT Px Heparin SQ Code Status Full code Admission and Anticipated Discharge Date Admission Date: March 16, 2024 Subjective Patient is seen and examined at bedside Subjectively feels better Dyspnea slightly better per patient Reports oral thrush No other complaints today Still requiring high flow oxygen to maintain saturations Denies any chest pain, hemoptysis, nausea, vomiting, abdominal pain Review of Systems Review of Systems: All systems reviewed & are unremarkable except as noted in Subjective Physical Exam Physical Exam: Physical Exam: Vitals signs as noted above General Appearance:Morbidly Obese, no apparent distress Head: normocephalic, Atraumatic Eyes: normal inspection, EOMI Neck: supple, Trachea midline Respiratory/Chest: Decreased breath sounds,+crackles, No accessory muscle use Cardiovascular: S1, S2, No murmur Abdomen/GI:Soft, Non tender, Bowel sounds present Extremities/Musculoskeletal:normal inspection, Trace edema Neurologic/Psych:AAOX3, grossly no focal neurological deficits Skin: normal color, warm Results & Data Results & Data Vital Signs (Past 12 Hours) Vital Signs Temp Pulse Pulse Resp BP Pulse Ox Pulse Ox 03/21/24 11:53 03/21/24 11:12 36.9 C 69 22 101/57 L 92 03/21/24 11:09 67 20 92 03/21/24 10:01 130/43 L 03/21/24 10:00 36.9 C 60 20 95 03/21/24 09:02 115/49 L 03/21/24 09:00 36.8 C 65 28 H 94 03/21/24 08:09 36.8 C 76 24 92 03/21/24 08:01 101/39 L 03/21/24 08:00 03/21/24 07:20 76 26 H 92 03/21/24 07:00 36.8 C 60 24 118/58 L 94 03/21/24 06:06 36.9 C 60 21 94 03/21/24 06:01 124/44 L 03/21/24 06:01 124/44 L 03/21/24 05:54 36.8 C 63 21 94 03/21/24 05:01 126/45 L 03/21/24 05:01 126/45 L 03/21/24 05:00 36.7 C 64 28 H 93 03/21/24 04:03 36.8 C 75 31 H 88 L 03/21/24 04:01 109/53 L 03/21/24 04:01 109/53 L 03/21/24 04:00 96 03/21/24 03:57 36.8 C 80 33 H 84 L 03/21/24 03:52 56 L 20 93 03/21/24 03:12 36.8 C 59 L 22 93 03/21/24 03:01 122/48 L 03/21/24 03:01 122/48 L 03/21/24 02:51 36.7 C 73 21 90 03/21/24 02:03 36.6 C 67 22 93 03/21/24 02:01 142/49 H 03/21/24 02:01 142/49 H 03/21/24 02:00 36.6 C 68 19 94 O2 Del Method O2 Del Method O2 Flow Rate O2 Flow Rate FiO2 03/21/24 11:53 High Flow Nasal Cannula 30 03/21/24 11:12 03/21/24 11:09 High Flow Nasal Cannula 30 60 03/21/24 10:01 03/21/24 10:00 03/21/24 09:02 03/21/24 09:00 03/21/24 08:09 High Flow Nasal Cannula 30 60 03/21/24 08:01 03/21/24 08:00 High Flow Nasal Cannula 30 60 03/21/24 07:20 High Flow Nasal Cannula 30 60 03/21/24 07:00 03/21/24 06:06 03/21/24 06:01 03/21/24 06:01 03/21/24 05:54 03/21/24 05:01 03/21/24 05:01 03/21/24 05:00 03/21/24 04:03 03/21/24 04:01 03/21/24 04:01 03/21/24 04:00 High Flow Nasal Cannula 30 03/21/24 03:57 03/21/24 03:52 High Flow Nasal Cannula 30 60 03/21/24 03:12 03/21/24 03:01 03/21/24 03:01 03/21/24 02:51 03/21/24 02:03 03/21/24 02:01 03/21/24 02:01 03/21/24 02:00 Laboratory Results Short CBC 03/21/24 Range/Units 04:31 WBC 17.97 H (4.8-10.8) K/ul Hgb 9.0 L (12.0-16.0) g/dl Hct 28.5 L (37.0-47.0) % Plt Count 354 (130-400) K/uL BMP 03/21/24 04:31 Sodium 142 Potassium 4.0 Chloride 112 H Carbon Dioxide 23 BUN 46 H Creatinine 1.93 H Glucose 143 H Calcium 9.7
[2024-03-22 05:28] LABS: Hematocrit (blood only) 28.4 % (37.0-47.0); Hemoglobin 9.1 g/dl (12.0-16.0); Mean Corpuscular Hemoglobin 31.6 pg (25.0-34.0); Mean Corpuscular Volume 98.6 fL (80.0-100.0); Mean Platelet Volume 10.5 fL (9.4-12.4); Platelet Count 367 K/uL (130-400); RDW Coefficient of Variation 14.6 % (11.5-14.5); RDW Standard Deviation 53.2 fL (36.4-46.3); Red Blood Count 2.88 M/uL (4.20-5.40)
[2024-03-22 05:33] LABS: BUN Creatinine Ratio 25.6 (10-20); Calcium 9.7 mg/dl (8.6-10.3); Creatinine Clr Calc Pharmacy 31.2 ml/min; Magnesium 2.6 mg/dl (1.7-2.4); Potassium 4.2 mmol/L (3.5-5.1)
--- NOTE | 2024-03-22 08:32 | XRay Report ---
EXAM: XR chest 1V portable CLINICAL HISTORY: ILD JTF/SJB TECHNIQUE: X-ray image of the chest was obtained in 1 view: AP projection. COMPARISON: X-ray dated 03/19/2024. FINDINGS: Pulmonary Parenchyma: Bilateral strands and patchy opacities are redemonstrated bilaterally suggesting Interstitial Lung disease. Blunting of the left costophrenic recess may suggest pleural effusion/thickening. Prominent hilar shadow on both sides. Heart and Mediastinum: Heart size and shape are normal. No mediastinal widening or masses. No hilar or mediastinal lymphadenopathy. Vascular intervention seen Bony Thorax: Spondylo-degenerative changes. The bony thorax appears intact without fractures or deformities. Soft Tissues: Soft tissues overlying the chest wall are unremarkable. IMPRESSION: 1. Bilateral strands and patchy opacities are redemonstrated bilaterally suggesting interstitial lung disease. HRCT chest is advised. 2. Blunting of the left costophrenic recess may suggest pleural effusion/thickening, unchanged. 3. Prominent hilar shadow on both sides suggesting pulmonary congestion, unchanged. 4. No definite interval changes seen. Electronically signed by Sejal Hoskins 03-22-2024 08:32 AM
--- NOTE | 2024-03-22 08:33 | Pulmonology Progress Note ---
Date of Service March 22, 2024 Assessment & Plan (1) Bilateral pneumonia: (2) Hypoxia: (3) SOB (shortness of breath): (4) COPD (chronic obstructive pulmonary disease): (5) CHF (congestive heart failure): (6) Morbid obesity: Plan IMPRESSION: 73-year-old female with a significant past medical history of COPD, tobacco abuse, MRSA pneumonia, CHF, CKD, and A-fib who presents in the setting of multifocal infiltrative process with associated hypoxemia. She is being treated for empiric progression of diffuse parenchymal lung disease of unclear etiology. Serological evaluation is pending. RECOMMENDATIONS: 1. Diffuse parenchymal lung disease with hypoxemic respiratory failure: Procalcitonin was slightly increased yesterday. This is of unclear clinical significance. The patient is currently on doxycycline and cefepime. Would not broaden antibiotics at this point in time. Patient is too unstable to consider bronchoscopy with BAL for definitive lower respiratory cultures as this would likely result in intubation which the patient would like to avoid. Will increase steroids slightly and see how she does. Continue attempts at diuresis. Await results of serological evaluation. 2. Did discuss with the patient that the prognosis is somewhat unclear. She is not making much in the way of clinical progress at this point in time. She has multiple other medical comorbidities which complicate her issues. I do not think mechanical ventilation and intubation would offer her a clinical benefit. She is comfortable meeting with palliative care to discuss options in the event that she fails to improve. CODE STATUS should also be readdressed. The above recommendations and plan were discussed with the patient and critical care nurse bedside. Questions were answered to the best of my ability Admission and Anticipated Discharge Date Admission Date: March 16, 2024 Subjective Patient seen and examined. Discussed with bedside nurse. The patient reports that she feels like she is doing little bit better. Her oxygen requirement remained stable. Her x-ray today looks slightly worse. She appears to not be deteriorating but not making much in the way of clinical progress Review of Systems 2 Review of Systems: All systems reviewed & are unremarkable except as noted in Subjective Physical Exam 2 Constitutional: WD/WN, vitals as above Neck: trachea midline, no thyromegaly Respiratory: no respiratory distress, no labored breathing, no cough and not tachypneic Auscultation: + crackles and + rhonchi Cardiovascular: RRR, no murmur, no edema Gastrointestinal (Abdomen): normal bowel sounds, soft, nontender, no hepatosplenomegaly Musculoskeletal: Extremities: extremities normal to inspection Skin: no rashes, warm and dry Lymphatic: no cervical lymphadenopathy Results & Data Results & Data Vital Signs (Past 12 Hours) Vital Signs Temp Pulse Pulse Resp BP Pulse Ox O2 Del Method 03/22/24 07:26 72 24 92 High Flow Nasal Cannula 03/22/24 07:24 71 20 92 High Flow Nasal Cannula 03/22/24 06:01 117/44 L 03/22/24 06:01 117/44 L 03/22/24 06:01 117/44 L 03/22/24 06:00 36.9 C 77 17 87 L 03/22/24 05:01 119/64 03/22/24 05:01 119/64 03/22/24 04:48 36.9 C 57 L 25 H 95 03/22/24 04:21 36.8 C 49 L 19 94 03/22/24 04:01 129/46 L 03/22/24 03:57 36.8 C 58 L 28 H 95 03/22/24 03:25 61 31 H 89 L High Flow Nasal Cannula 03/22/24 03:01 133/42 L 03/22/24 03:01 133/42 L 03/22/24 03:01 133/42 L 03/22/24 02:51 36.9 C 50 L 21 94 03/22/24 02:03 36.8 C 55 L 22 95 03/22/24 02:01 123/47 L 03/22/24 02:01 123/47 L 03/22/24 02:01 123/47 L 03/22/24 01:42 36.8 C 54 L 20 96 03/22/24 01:01 119/40 L 03/22/24 01:00 36.7 C 53 L 19 95 03/22/24 00:12 36.9 C 64 31 H 95 03/22/24 00:01 122/40 L 03/22/24 00:01 122/40 L 03/22/24 00:00 61 03/21/24 23:57 36.9 C 50 L 21 95 03/21/24 23:35 50 L 19 96 High Flow Nasal Cannula 03/21/24 23:01 118/38 L 03/21/24 23:01 118/38 L 03/21/24 23:01 118/38 L 03/21/24 23:00 37.1 C 49 L 18 96 03/21/24 22:03 37.2 C 67 22 96 03/21/24 22:01 138/50 L 03/21/24 21:54 37.2 C 57 L 22 96 03/21/24 21:03 37.2 C 59 L 30 H 95 03/21/24 21:01 127/47 L 03/21/24 21:01 127/47 L 03/21/24 21:01 127/47 L 03/21/24 21:01 127/47 L 03/21/24 20:51 37.3 C 70 30 H 92 O2 Flow Rate FiO2 03/22/24 07:26 30 60 03/22/24 07:24 30 60 03/22/24 06:01 03/22/24 06:01 03/22/24 06:01 03/22/24 06:00 03/22/24 05:01 03/22/24 05:01 03/22/24 04:48 03/22/24 04:21 03/22/24 04:01 03/22/24 03:57 03/22/24 03:25 30 60 03/22/24 03:01 03/22/24 03:01 03/22/24 03:01 03/22/24 02:51 03/22/24 02:03 03/22/24 02:01 03/22/24 02:01 03/22/24 02:01 03/22/24 01:42 03/22/24 01:01 03/22/24 01:00 03/22/24 00:12 03/22/24 00:01 03/22/24 00:01 03/22/24 00:00 03/21/24 23:57 03/21/24 23:35 30 60 03/21/24 23:01 03/21/24 23:01 03/21/24 23:01 03/21/24 23:00 03/21/24 22:03 03/21/24 22:01 03/21/24 21:54 03/21/24 21:03 03/21/24 21:01 03/21/24 21:01 03/21/24 21:01 03/21/24 21:01 03/21/24 20:51 Laboratory Results 03/22/24 04:54 03/22/24 04:54 Diagnostic Findings Chest x-ray from today was reviewed. It demonstrates some progression of the bilateral interstitial opacities. PG Care Time/CCT Total # of Minutes Spent Total Time Spent with Patient: Total time spent is greater than 50% in coordination of care (as documented) at patient's floor/unit and/or counseling patient: Coding Level of Care Code 30585 SUB INP/OBS CARE 2/35MIN Diagnoses Bilateral pneumonia J18.9 Hypoxia R09.02 SOB (shortness of breath) R06.02 COPD (chronic obstructive pulmonary disease) J44.9 CHF (congestive heart failure) I50.9 Morbid obesity E66.01
[2024-03-22] MEDS: FUROSEMIDE 40 MG/4 ML VIAL IV SCH (10:29)
--- NOTE | 2024-03-22 15:51 | Hospitalist Progress Note ---
Date of Service March 22, 2024 Assessment & Plan (1) SOB (shortness of breath): Plan: 73-year-old female with past medical history significant for dyslipidemia, COPD, asthma, history of multifocal pneumonia, chronic heart failure with preserved ejection fraction, aortic stenosis, paroxysmal atrial fibrillation, status post TAVR, obesity, GERD, CKD stage IV, macrocytic anemia, history of tobacco use, currently living with her sister comes because of ongoing cough bringing up phlegm and right-sided chest pain on and off for last 2 weeks. Patient states since last 2 weeks feeling short of breath and having cough. Acute hypoxic respiratory failure Multifocal pneumonia H/O COPD, tobacco abuse, MRSA pneumonia Suspected progression of interstitial lung disease Patient presented with low oxygen saturation, tachypnea, cough and shortness of breath. Prior history of MRSA pneumonia and bacteremia in 2022 --Chest CT:Extensive alveolar opacities throughout the lungs, including groundglass opacities and foci of developing consolidation. The findings favor multifocal pneumonia. Pulmonary edema is considered less likely. Follow-up chest CT in 3 months to ensure resolution is recommended. Cardiomegaly. Dilatation of the central pulmonary arteries suggestive of pulmonary hypertension. No pleural effusion. No pneumothorax. Mildly enlarged mediastinal lymph nodes, similar to prior exam. These can be assessed on follow-up CT to ensure stability. -MRSA nares negative -Procalcitonin elevated -Blood culture: negative to date -sputum cx- light normal compa present. -Serological evaluation pending -Continue on IV cefepime and doxycycline Day #5 Continue nebs Continue IV Solu-Medrol--taper as able -- Appreciate pulmonary/critical care input Patient will require outpatient PFTs Continue high flow oxygen, taper as able Amiodarone held given possible interstitial lung disease Poor candidate for bronchoscopy per pulm Clinically no significant improvement currently Palliative care consulted to address goals of care Persistent hypotension Patient had multiple episode of hypotension on the night of 03/17- 03/18 She also reports dizziness while standing up at home as well. Lactate within normal limits Random cortisol 8.16 Cosyntropin stimulation test negative. Increased midodrine to 10 mg 3 times daily Monitor BP Mild troponin elevation Demand ischemia secondary to above Monitor Oral thrush Continue nystatin History of COPD History of asthma History of tobacco abuse quit 2018. Smoked half pack a day for 30 years Continue home inhalers, Nebs CHF with preserved ejection fraction, compensated Aortic stenosis status post TAVR Lasix resumed on 03/19 Monitor for volume overload Paroxysmal atrial fibrillation Hold metoprolol and amiodarone for now Not anticoagulated secondary to GI bleed Monitor Nonobstructive CAD Continue Plavix, aspirin ,statin and beta-nikhil CKD stage IV Presented with creatinine 1.9 around baseline Avoid nephrotoxic agents Monitor urine output Anemia Anemia of chronic disease Hemoglobin 8 to 9 On iron supplement. GERD Continue Protonix, famotidine Migraines On Topamax Tramadol as needed Hypothyroidism Continue levothyroxine Morbid obesity BMI 41.8 Counseling as outpatient DVT Px Heparin SQ Code Status Full code Admission and Anticipated Discharge Date Admission Date: March 16, 2024 Subjective Patient is seen and examined at bedside No new complaints Still requiring high flow oxygen to maintain saturations Denies any significant cough, dyspnea today Also denies any chest pain, nausea, vomiting, abdominal pain Review of Systems Review of Systems: All systems reviewed & are unremarkable except as noted in Subjective Physical Exam Physical Exam: Physical Exam: Vitals signs as noted above General Appearance:Morbidly Obese, no apparent distress Head: normocephalic, Atraumatic Eyes: normal inspection, EOMI Neck: supple, Trachea midline Respiratory/Chest: Decreased breath sounds,+crackles, No accessory muscle use Cardiovascular: S1, S2, No murmur Abdomen/GI:Soft, Non tender, Bowel sounds present Extremities/Musculoskeletal:normal inspection, Trace edema Neurologic/Psych:AAOX3, grossly no focal neurological deficits Skin: normal color, warm Results & Data Results & Data Vital Signs (Past 12 Hours) Vital Signs Temp Pulse Pulse Resp BP Pulse Ox O2 Del Method 03/22/24 14:40 68 22 94 High Flow Nasal Cannula 03/22/24 14:38 68 22 94 High Flow Nasal Cannula 03/22/24 11:09 37.0 C 68 24 105/45 L 92 High Flow Nasal Cannula 03/22/24 11:01 68 24 92 High Flow Nasal Cannula 03/22/24 11:00 68 24 92 03/22/24 10:09 37.1 C 65 24 113/36 L 92 High Flow Nasal Cannula 03/22/24 08:00 36.8 C 81 33 H 96/62 L 91 03/22/24 08:00 High Flow Nasal Cannula 03/22/24 08:00 High Flow Nasal Cannula 03/22/24 07:26 72 24 92 High Flow Nasal Cannula 03/22/24 07:24 71 20 92 High Flow Nasal Cannula 03/22/24 07:01 94/58 L 03/22/24 07:00 36.8 C 61 34 H 90 03/22/24 06:01 117/44 L 03/22/24 06:01 117/44 L 03/22/24 06:01 117/44 L 03/22/24 06:00 36.9 C 77 17 87 L 03/22/24 05:01 119/64 03/22/24 05:01 119/64 03/22/24 04:48 36.9 C 57 L 25 H 95 03/22/24 04:21 36.8 C 49 L 19 94 03/22/24 04:01 129/46 L 03/22/24 03:57 36.8 C 58 L 28 H 95 O2 Flow Rate FiO2 03/22/24 14:40 30 50 03/22/24 14:38 30 50 03/22/24 11:09 03/22/24 11:01 30 60 03/22/24 11:00 30 60 03/22/24 10:09 30 60 03/22/24 08:00 03/22/24 08:00 30 60 03/22/24 08:00 30 60 03/22/24 07:26 30 60 03/22/24 07:24 30 60 03/22/24 07:01 03/22/24 07:00 03/22/24 06:01 03/22/24 06:01 03/22/24 06:01 03/22/24 06:00 03/22/24 05:01 03/22/24 05:01 03/22/24 04:48 03/22/24 04:21 03/22/24 04:01 03/22/24 03:57 Laboratory Results Short CBC 03/22/24 Range/Units 04:54 WBC 16.10 H (4.8-10.8) K/ul Hgb 9.1 L (12.0-16.0) g/dl Hct 28.4 L (37.0-47.0) % Plt Count 367 (130-400) K/uL BMP 03/22/24 04:54 Sodium 141 Potassium 4.2 Chloride 111 H Carbon Dioxide 25 BUN 53 H Creatinine 2.07 H Glucose 147 H Calcium 9.7
--- NOTE | 2024-03-23 07:45 | Pulmonology Progress Note ---
Date of Service March 23, 2024 Assessment & Plan (1) Bilateral pneumonia: (2) Hypoxia: (3) SOB (shortness of breath): (4) COPD (chronic obstructive pulmonary disease): (5) CHF (congestive heart failure): (6) Morbid obesity: Plan IMPRESSION: 73-year-old female with a significant past medical history of COPD, tobacco abuse, MRSA pneumonia, CHF, CKD, and A-fib who presents in the setting of multifocal infiltrative process with associated hypoxemia. She is being treated for empiric progression of diffuse parenchymal lung disease of unclear etiology. Serological evaluation is pending. RECOMMENDATIONS: 1. Diffuse parenchymal lung disease with hypoxemic respiratory failure: Empirically treated with steroids at this point in time. She is completed a course of antibiotics. Attempting diuresis as tolerated but slight increase in serum creatinine today. Will need to follow closely. Clinically she is mildly improved today. Will repeat chest x-ray in a.m. Continue steroids at current dose 2. Patient was advised that she needs to get off her back and be upright either in a chair and the bed is much as possible. This will improve atelectasis and VQ mismatch and improve her oxygenation. She expressed understanding although it is unclear if she can be compliant with this in the long-term. The above recommendations and plan were discussed with the patient and respiratory therapy at bedside. Questions were answered to the best of my ability. Patient expressed understanding and is in agreement with the plan as outlined Admission and Anticipated Discharge Date Admission Date: March 16, 2024 Subjective Patient seen and examined. EMR reviewed. Discussed with respiratory therapy at bedside. The patient feels that she is improving from a respiratory standpoint. Her oxygen requirement has decreased significantly since yesterday. She is now on a simple mask. She is not coughing or expectorating phlegm. She denies any chest pain or palpitations. She has not really been out of bed or active. Review of Systems 2 Review of Systems: All systems reviewed & are unremarkable except as noted in Subjective Physical Exam 2 Constitutional: WD/WN, vitals as above Neck: trachea midline, no thyromegaly Respiratory: no respiratory distress, no labored breathing, no cough and not tachypneic Auscultation: + crackles and + rhonchi Cardiovascular: RRR, no murmur, no edema Gastrointestinal (Abdomen): normal bowel sounds, soft, nontender, no hepatosplenomegaly Musculoskeletal: Extremities: extremities normal to inspection Skin: no rashes, warm and dry Lymphatic: no cervical lymphadenopathy Results & Data Results & Data Vital Signs (Past 12 Hours) Vital Signs Temp Pulse Pulse Resp BP BP Pulse Ox 03/23/24 07:27 68 20 95 03/23/24 06:05 03/23/24 05:52 36.9 C 65 22 111/51 L 90 03/23/24 05:45 92 03/23/24 03:41 52 L 23 90 03/22/24 22:31 65 19 95 03/22/24 22:00 37.3 C 54 L 20 94 03/22/24 21:00 37.3 C 60 29 H 114/48 L 94 03/22/24 20:05 66 25 H 90 03/22/24 20:03 37.4 C 56 L 20 94 03/22/24 20:00 03/22/24 20:00 Pulse Ox O2 Del Method O2 Del Method O2 Flow Rate FiO2 03/23/24 07:27 Oxymask 10 03/23/24 06:05 Oxymask 10 03/23/24 05:52 Oxymask 10 03/23/24 05:45 Oxymask 10 03/23/24 03:41 High Flow Nasal Cannula 30 50 03/22/24 22:31 High Flow Nasal Cannula 30 40 03/22/24 22:00 03/22/24 21:00 03/22/24 20:05 High Flow Nasal Cannula 30 50 03/22/24 20:03 03/22/24 20:00 93 High Flow Nasal Cannula 03/22/24 20:00 High Flow Nasal Cannula 30 45 Laboratory Results 03/22/24 04:54 03/22/24 04:54 PG Care Time/CCT Total # of Minutes Spent Total Time Spent with Patient: Total time spent is greater than 50% in coordination of care (as documented) at patient's floor/unit and/or counseling patient: Coding Level of Care Code 48548 SUB INP/OBS CARE 2/35MIN Diagnoses Bilateral pneumonia J18.9 Hypoxia R09.02 SOB (shortness of breath) R06.02 COPD (chronic obstructive pulmonary disease) J44.9 CHF (congestive heart failure) I50.9 Morbid obesity E66.01
--- NOTE | 2024-03-23 14:46 | Hospitalist Progress Note ---
Date of Service March 23, 2024 Assessment & Plan (1) SOB (shortness of breath): Plan: 73-year-old female with past medical history significant for dyslipidemia, COPD, asthma, history of multifocal pneumonia, chronic heart failure with preserved ejection fraction, aortic stenosis, paroxysmal atrial fibrillation, status post TAVR, obesity, GERD, CKD stage IV, macrocytic anemia, history of tobacco use, currently living with her sister comes because of ongoing cough bringing up phlegm and right-sided chest pain on and off for last 2 weeks. Patient states since last 2 weeks feeling short of breath and having cough. Acute hypoxic respiratory failure Multifocal pneumonia H/O COPD, tobacco abuse, MRSA pneumonia Suspected progression of interstitial lung disease Patient presented with low oxygen saturation, tachypnea, cough and shortness of breath. Prior history of MRSA pneumonia and bacteremia in 2022 --Chest CT:Extensive alveolar opacities throughout the lungs, including groundglass opacities and foci of developing consolidation. The findings favor multifocal pneumonia. Pulmonary edema is considered less likely. Follow-up chest CT in 3 months to ensure resolution is recommended. Cardiomegaly. Dilatation of the central pulmonary arteries suggestive of pulmonary hypertension. No pleural effusion. No pneumothorax. Mildly enlarged mediastinal lymph nodes, similar to prior exam. These can be assessed on follow-up CT to ensure stability. -MRSA nares negative -Procalcitonin elevated -Blood culture: negative -sputum cx- light normal compa present. -Serological evaluation pending -Continue on IV cefepime and doxycycline Continue nebs Continue IV Solu-Medrol--taper as able -- Appreciate pulmonary/critical care input Patient will require outpatient PFTs High flow oxygen transition to face mask on 10 L currently Amiodarone held given possible interstitial lung disease Poor candidate for bronchoscopy per pulm Slowly improving Palliative care consulted to address goals of care Plan to repeat chest x-ray tomorrow Persistent hypotension Patient had multiple episode of hypotension on the night of 03/17- 03/18 She also reports dizziness while standing up at home as well. Lactate within normal limits Random cortisol 8.16 Cosyntropin stimulation test negative. Increased midodrine to 10 mg 3 times daily Monitor BP Mild troponin elevation Demand ischemia secondary to above Monitor Oral thrush Continue nystatin History of COPD History of asthma History of tobacco abuse quit 2018. Smoked half pack a day for 30 years Continue home inhalers, Nebs CHF with preserved ejection fraction, compensated Aortic stenosis status post TAVR Lasix resumed on 03/19 Monitor for volume overload Paroxysmal atrial fibrillation Hold metoprolol and amiodarone for now Not anticoagulated secondary to GI bleed Monitor Nonobstructive CAD Continue Plavix, aspirin ,statin and beta-nikhil CKD stage IV Presented with creatinine 1.9 around baseline Avoid nephrotoxic agents Monitor urine output Anemia Anemia of chronic disease Hemoglobin 8 to 9 On iron supplement. GERD Continue Protonix, famotidine Migraines On Topamax Tramadol as needed Hypothyroidism Continue levothyroxine Morbid obesity BMI 41.8 Counseling as outpatient DVT Px Heparin SQ Code Status Full code Admission and Anticipated Discharge Date Admission Date: March 16, 2024 Subjective Patient is seen and examined at bedside Noted to have significant desaturation with exertion Currently saturating well on 10 L supplemental oxygen Expectorate sputum more clear now Minimal cough Denies any chest pain, significant dyspnea No other complaints today Review of Systems Review of Systems: All systems reviewed & are unremarkable except as noted in Subjective Physical Exam Physical Exam: Physical Exam: Vitals signs as noted above General Appearance:Morbidly Obese, no apparent distress Head: normocephalic, Atraumatic Eyes: normal inspection, EOMI Neck: supple, Trachea midline Respiratory/Chest: Decreased breath sounds, CTA, No accessory muscle use Cardiovascular: S1, S2, No murmur Abdomen/GI:Soft, Non tender, Bowel sounds present Extremities/Musculoskeletal:normal inspection, Trace edema Neurologic/Psych:AAOX3, grossly no focal neurological deficits Skin: normal color, warm Results & Data Results & Data Vital Signs (Past 12 Hours) Vital Signs Temp Pulse Resp BP Pulse Ox O2 Del Method O2 Flow Rate 03/23/24 11:36 36.7 C 62 20 112/59 L 93 Oxymask 03/23/24 11:35 63 20 93 Nasal Cannula 03/23/24 08:00 Oxymask 10 03/23/24 07:27 68 20 95 Oxymask 03/23/24 07:00 36.5 C 70 18 112/68 90 Oxymask 03/23/24 06:05 Oxymask 03/23/24 05:52 36.9 C 65 22 111/51 L 90 Oxymask 10 03/23/24 05:45 92 Oxymask 03/23/24 03:41 52 L 23 90 High Flow Nasal Cannula 30 FiO2 03/23/24 11:36 03/23/24 11:35 03/23/24 08:00 03/23/24 07:27 03/23/24 07:00 03/23/24 06:05 03/23/24 05:52 03/23/24 05:45 03/23/24 03:41 50
[2024-03-24 08:03] LABS: Calcium 9.9 mg/dl (8.6-10.3); Creatinine Clr Calc Pharmacy 29.5 ml/min; Potassium 4.5 mmol/L (3.5-5.1)
--- NOTE | 2024-03-24 08:05 | Pulmonology Progress Note ---
Date of Service March 24, 2024 Assessment & Plan (1) Bilateral pneumonia: (2) Hypoxia: (3) SOB (shortness of breath): (4) COPD (chronic obstructive pulmonary disease): (5) CHF (congestive heart failure): (6) Morbid obesity: Plan IMPRESSION: 73-year-old female with a significant past medical history of COPD, tobacco abuse, MRSA pneumonia, CHF, CKD, and A-fib who presents in the setting of multifocal infiltrative process with associated hypoxemia. She is being treated for empiric progression of diffuse parenchymal lung disease of unclear etiology. Serological evaluation is pending. RECOMMENDATIONS: 1. Diffuse parenchymal lung disease with hypoxemic respiratory failure: Empirically treated with steroids at this point in time. Today is day 7 cefepime after 3 days of Zosyn and 8 days of doxycycline. Antibiotics will be discontinued at this point in time. Attempting diuresis as tolerated, renal function slightly worse again today. Hold additional diuretics. Will need to follow closely. Chest x-ray stable with persistent diffuse bilateral pulmonary infiltrates. Will transition from Solu-Medrol to prednisone and placed on Bactrim prophylaxis at this point time. Patient remains too unstable to consider bronchoscopy with BAL but that may be a consideration in the future if the patient wishes to pursue aggressive interventions 2. Patient was advised that she needs to get off her back and be upright either in a chair and the bed is much as possible. This will improve atelectasis and VQ mismatch and improve her oxygenation. She is now significantly deconditioned and cannot get up to the bed chair without becoming significantly fatigued. Will need alf at discharge and likely supplemental oxygen at discharge. The above recommendations and plan were discussed with the patient at bedside. Questions were answered to the best of my ability. Patient expressed understanding and is in agreement with the plan as outlined Admission and Anticipated Discharge Date Admission Date: March 16, 2024 Subjective Patient seen and examined. EMR reviewed. She reports that she is doing better. She tried to get up to the chair yesterday but was significantly weak and deconditioned. She is not having any significant respiratory issues and continues to maintain on oxygen around 8 or 10 L. She is not coughing or expectorating phlegm. She is tolerating a diet Review of Systems 2 Review of Systems: All systems reviewed & are unremarkable except as noted in Subjective Physical Exam 2 Constitutional: WD/WN, vitals as above Neck: trachea midline, no thyromegaly Respiratory: no respiratory distress, no labored breathing, no cough and not tachypneic Auscultation: + crackles and + rhonchi Cardiovascular: RRR, no murmur, no edema Gastrointestinal (Abdomen): normal bowel sounds, soft, nontender, no hepatosplenomegaly Musculoskeletal: Extremities: extremities normal to inspection Skin: no rashes, warm and dry Lymphatic: no cervical lymphadenopathy Results & Data Results & Data Vital Signs (Past 12 Hours) Vital Signs Temp Pulse Pulse Resp BP Pulse Ox O2 Del Method 03/24/24 07:35 56 L 17 90 Nasal Cannula 03/24/24 07:16 36.7 C 64 25 H 115/67 90 Nasal Cannula 03/24/24 03:00 36.6 C 59 L 18 135/74 94 High Flow Nasal Cannula 03/23/24 22:34 36.4 C L 56 L 16 130/75 95 High Flow Nasal Cannula 03/23/24 21:54 50 L 03/23/24 20:00 High Flow Nasal Cannula O2 Flow Rate 03/24/24 07:35 10 03/24/24 07:16 10 03/24/24 03:00 9.0 03/23/24 22:34 10.0 03/23/24 21:54 03/23/24 20:00 10 Laboratory Results 03/22/24 04:54 PG Care Time/CCT Total # of Minutes Spent Total Time Spent with Patient: Total time spent is greater than 50% in coordination of care (as documented) at patient's floor/unit and/or counseling patient: Coding Level of Care Code 08236 SUB INP/OBS CARE 2/35MIN Diagnoses Bilateral pneumonia J18.9 Hypoxia R09.02 SOB (shortness of breath) R06.02 COPD (chronic obstructive pulmonary disease) J44.9 CHF (congestive heart failure) I50.9 Morbid obesity E66.01
--- NOTE | 2024-03-24 08:34 | XRay Report ---
EXAM: XR chest 1V portable CLINICAL HISTORY: RESP FAILURE HX OF LUNG CA RESP DISTRESS HX OF LUNG CA KAA TECHNIQUE: An X-ray image of the chest is obtained in 1 AP projection. COMPARISON: 03/22/2024 CR. FINDINGS: Pulmonary Parenchyma: Reduced volume of both lungs with still noted bilateral strands and patchy opacities are noted at both lung cobos more evident at the left lung suggesting interstitial pulmonary opacification of the left costophrenic recess may suggest pleural thickening/ effusion. Prominent hilar shadow on both sides. Heart and Mediastinum: Heart size and shape are normal. No mediastinal widening or masses. No hilar or mediastinal lymphadenopathy. Lower mediastinal stent. Bony Thorax: Spondylo-degenerative changes. Bony thorax appears intact without fractures or deformities. Soft Tissues: Soft tissues overlying the chest wall are unremarkable. IMPRESSION: 1. No gross interval changes with bilateral near diffuse pulmonary opacities, prominent robina with evidence of left mild pleural thickening/ effusion. 2. Further CT assessment/ close follow up are recommended. Electronically signed by Sejal Hoskins 03-24-2024 08:34 AM
[2024-03-24] MEDS: predniSONE 20 MG TAB PO SCH (09:08)
--- NOTE | 2024-03-24 13:37 | Hospitalist Progress Note ---
Date of Service March 24, 2024 Assessment & Plan (1) SOB (shortness of breath): Plan: 73-year-old female with past medical history significant for dyslipidemia, COPD, asthma, history of multifocal pneumonia, chronic heart failure with preserved ejection fraction, aortic stenosis, paroxysmal atrial fibrillation, status post TAVR, obesity, GERD, CKD stage IV, macrocytic anemia, history of tobacco use, currently living with her sister comes because of ongoing cough bringing up phlegm and right-sided chest pain on and off for last 2 weeks. Patient states since last 2 weeks feeling short of breath and having cough. Acute hypoxic respiratory failure Multifocal pneumonia H/O COPD, tobacco abuse, MRSA pneumonia Suspected progression of interstitial lung disease Patient presented with low oxygen saturation, tachypnea, cough and shortness of breath. Prior history of MRSA pneumonia and bacteremia in 2022 --Chest CT:Extensive alveolar opacities throughout the lungs, including groundglass opacities and foci of developing consolidation. The findings favor multifocal pneumonia. Pulmonary edema is considered less likely. Follow-up chest CT in 3 months to ensure resolution is recommended. Cardiomegaly. Dilatation of the central pulmonary arteries suggestive of pulmonary hypertension. No pleural effusion. No pneumothorax. Mildly enlarged mediastinal lymph nodes, similar to prior exam. These can be assessed on follow-up CT to ensure stability. -MRSA nares negative -Procalcitonin elevated -Blood culture: negative -sputum cx- light normal compa present. -Serological evaluation pending -on IV cefepime and doxycycline completed 7-day course of antibiotic Continue nebs Continue IV Solu-Medrol--transition to prednisone Started on Bactrim for chronic prophylaxis -- Appreciate pulmonary/critical care input Patient will require outpatient PFTs Currently on 10 L supplemental oxygen Amiodarone held given possible interstitial lung disease Poor candidate for bronchoscopy per pulm Palliative care consulted to address goals of care Plan to resume diuretics as able Increase activity as tolerated Persistent hypotension Patient had multiple episode of hypotension on the night of 03/17- 03/18 She also reports dizziness while standing up at home as well. Lactate within normal limits Random cortisol 8.16 Cosyntropin stimulation test negative. Increased midodrine to 10 mg 3 times daily Monitor BP Mild troponin elevation Demand ischemia secondary to above Monitor Oral thrush Continue nystatin History of COPD History of asthma History of tobacco abuse quit 2018. Smoked half pack a day for 30 years Continue home inhalers, Nebs CHF with preserved ejection fraction, compensated Aortic stenosis status post TAVR Lasix resumed on 03/19 Monitor for volume overload Paroxysmal atrial fibrillation Hold metoprolol and amiodarone for now Not anticoagulated secondary to GI bleed Monitor Nonobstructive CAD Continue Plavix, aspirin ,statin and beta-nikhil CKD stage IV Presented with creatinine 1.9 around baseline Avoid nephrotoxic agents Monitor urine output Creatinine 2.16 today Anemia Anemia of chronic disease Hemoglobin 8 to 9 On iron supplement. GERD Continue Protonix, famotidine Migraines On Topamax Tramadol as needed Hypothyroidism Continue levothyroxine Morbid obesity BMI 41.8 Counseling as outpatient DVT Px Heparin SQ Code Status Full code Admission and Anticipated Discharge Date Admission Date: March 16, 2024 Subjective Patient is seen and examined at bedside Subjectively feels improving Requiring 10 L supplemental oxygen to maintain saturations Tongue soreness slowly improving as well No significant cough today Denies any chest pain, dyspnea, nausea, vomiting, abdominal pain Discussed with patient's family over the phone Review of Systems Review of Systems: All systems reviewed & are unremarkable except as noted in Subjective Physical Exam Physical Exam: Physical Exam: Vitals signs as noted above General Appearance:Morbidly Obese, no apparent distress Head: normocephalic, Atraumatic Eyes: normal inspection, EOMI Neck: supple, Trachea midline Respiratory/Chest: Decreased breath sounds, CTA, No accessory muscle use Cardiovascular: S1, S2, No murmur Abdomen/GI:Soft, Non tender, Bowel sounds present Extremities/Musculoskeletal:normal inspection, Trace edema Neurologic/Psych:AAOX3, grossly no focal neurological deficits Skin: normal color, warm Results & Data Results & Data Vital Signs (Past 12 Hours) Vital Signs Temp Pulse Resp BP Pulse Ox Pulse Ox O2 Del Method 03/24/24 11:16 62 18 92 Nasal Cannula 03/24/24 10:37 36.6 C 67 30 H 109/63 96 Nasal Cannula 03/24/24 08:00 90 03/24/24 08:00 Nasal Cannula 03/24/24 07:35 56 L 17 90 Nasal Cannula 03/24/24 07:16 36.7 C 64 25 H 115/67 90 Nasal Cannula 03/24/24 03:00 36.6 C 59 L 18 135/74 94 High Flow Nasal Cannula O2 Del Method O2 Flow Rate O2 Flow Rate 03/24/24 11:16 10 03/24/24 10:37 10 03/24/24 08:00 Nasal Cannula 10 03/24/24 08:00 03/24/24 07:35 10 03/24/24 07:16 10 03/24/24 03:00 9.0 Laboratory Results [facility] 03/24/24 06:31 Sodium 140 Potassium 4.5 Chloride 106 Carbon Dioxide 27 BUN 67 H Creatinine 2.16 H Glucose 133 H Calcium 9.9
[2024-03-25 08:02] LABS: Hematocrit (blood only) 31.8 % (37.0-47.0); Hemoglobin 10.1 g/dl (12.0-16.0); Mean Corpuscular Hemoglobin 31.5 pg (25.0-34.0); Mean Corpuscular Hgb Conc 31.8 g/dL (32.0-36.0); Mean Corpuscular Volume 99.1 fL (80.0-100.0); Mean Platelet Volume 10.7 fL (9.4-12.4); Nucleated RBC # (auto) 0.06 K/uL (0.00-0.12); Nucleated RBC % (auto) 0.3 %; Platelet Count 344 K/uL (130-400); RDW Coefficient of Variation 14.6 % (11.5-14.5); RDW Standard Deviation 52.6 fL (36.4-46.3); Red Blood Count 3.21 M/uL (4.20-5.40)
[2024-03-25 08:25] LABS: BUN Creatinine Ratio 28.1 (10-20); Calcium 9.7 mg/dl (8.6-10.3); Creatinine Clr Calc Pharmacy 31.8 ml/min
[2024-03-25] MEDS: SULFAMETHOXAZOLE/TRIMETHOPRIM DS 800/160MG TAB PO SCH (08:34)
--- NOTE | 2024-03-25 12:28 | Hospitalist Progress Note ---
Date of Service March 25, 2024 Assessment & Plan (1) SOB (shortness of breath): Plan: 73-year-old female with past medical history significant for dyslipidemia, COPD, asthma, history of multifocal pneumonia, chronic heart failure with preserved ejection fraction, aortic stenosis, paroxysmal atrial fibrillation, status post TAVR, obesity, GERD, CKD stage IV, macrocytic anemia, history of tobacco use, currently living with her sister comes because of ongoing cough bringing up phlegm and right-sided chest pain on and off for last 2 weeks. Patient states since last 2 weeks feeling short of breath and having cough. Acute hypoxic respiratory failure Multifocal pneumonia H/O COPD, tobacco abuse, MRSA pneumonia Suspected progression of interstitial lung disease Patient presented with low oxygen saturation, tachypnea, cough and shortness of breath. Prior history of MRSA pneumonia and bacteremia in 2022 --Chest CT:Extensive alveolar opacities throughout the lungs, including groundglass opacities and foci of developing consolidation. The findings favor multifocal pneumonia. Pulmonary edema is considered less likely. Follow-up chest CT in 3 months to ensure resolution is recommended. Cardiomegaly. Dilatation of the central pulmonary arteries suggestive of pulmonary hypertension. No pleural effusion. No pneumothorax. Mildly enlarged mediastinal lymph nodes, similar to prior exam. These can be assessed on follow-up CT to ensure stability. -MRSA nares negative -Procalcitonin elevated -Blood culture: negative -sputum cx- light normal compa present. -Serological evaluation pending -on IV cefepime and doxycycline completed 7-day course of antibiotic Continue nebs Continue IV Solu-Medrol--transition to prednisone Started on Bactrim for chronic prophylaxis -- Appreciate pulmonary/critical care input Patient will require outpatient PFTs Currently on 6 L supplemental oxygen Amiodarone held given possible interstitial lung disease Poor candidate for bronchoscopy per pulm Palliative care consulted to address goals of care Plan to resume diuretics as able Refuses rehab placement Despite explaining the risks and benefits in detail, patient and family prefers patient be discharged home Will obtain 2 step prior to discharge. Will benefit from home health Case management to help with discharge planning Persistent hypotension Patient had multiple episode of hypotension on the night of 03/17- 03/18 She also reports dizziness while standing up at home as well. Lactate within normal limits Random cortisol 8.16 Cosyntropin stimulation test negative. Increased midodrine to 10 mg 3 times daily Monitor BP Mild troponin elevation Demand ischemia secondary to above Monitor Oral thrush Continue nystatin History of COPD History of asthma History of tobacco abuse quit 2018. Smoked half pack a day for 30 years Continue home inhalers, Nebs CHF with preserved ejection fraction, compensated Aortic stenosis status post TAVR Lasix resumed on 03/19 Monitor for volume overload Paroxysmal atrial fibrillation Hold metoprolol and amiodarone for now Not anticoagulated secondary to GI bleed Monitor Nonobstructive CAD Continue Plavix, aspirin ,statin and beta-nikhil CKD stage IV Presented with creatinine 1.9 around baseline Avoid nephrotoxic agents Monitor urine output Creatinine 2.16 today Anemia Anemia of chronic disease Hemoglobin 8 to 9 On iron supplement. GERD Continue Protonix, famotidine Migraines On Topamax Tramadol as needed Hypothyroidism Continue levothyroxine Morbid obesity BMI 41.8 Counseling as outpatient DVT Px Heparin SQ Code Status Full code Disposition Refuses rehab placement Admission and Anticipated Discharge Date Admission Date: March 16, 2024 Subjective Patient is seen and examined at bedside Prefers to be discharged home today Discussed with patient's family in detail at bedside Currently requiring 6 L supplemental oxygen to maintain saturations Refuses rehab placement Subjectively feels well Minimal cough Denies any chest pain, dyspnea, nausea, vomiting, abdominal pain Review of Systems Review of Systems: All systems reviewed & are unremarkable except as noted in Subjective Physical Exam Physical Exam: Physical Exam: Vitals signs as noted above General Appearance:Morbidly Obese, no apparent distress Head: normocephalic, Atraumatic Eyes: normal inspection, EOMI Neck: supple, Trachea midline Respiratory/Chest: Decreased breath sounds, CTA, No accessory muscle use Cardiovascular: S1, S2, No murmur Abdomen/GI:Soft, Non tender, Bowel sounds present Extremities/Musculoskeletal:normal inspection, Trace edema Neurologic/Psych:AAOX3, grossly no focal neurological deficits Skin: normal color, warm Results & Data Results & Data Vital Signs (Past 12 Hours) Vital Signs Temp Pulse Pulse Resp BP Pulse Ox O2 Del Method 03/25/24 11:33 36.6 C 79 19 110/68 90 Nasal Cannula 03/25/24 09:49 High Flow Nasal Cannula 03/25/24 08:00 03/25/24 07:23 75 17 89 L Nasal Cannula 03/25/24 07:04 36.7 C 83 17 119/70 90 High Flow Nasal Cannula 03/25/24 07:02 64 03/25/24 04:07 36.8 C 67 18 100/61 90 High Flow Nasal Cannula O2 Del Method O2 Flow Rate 03/25/24 11:33 6 03/25/24 09:49 7 03/25/24 08:00 High Flow Nasal Cannula 03/25/24 07:23 7 03/25/24 07:04 7 03/25/24 07:02 03/25/24 04:07 11 Laboratory Results Short CBC 03/25/24 Range/Units 06:52 WBC 20.10 H (4.8-10.8) K/ul Hgb 10.1 L (12.0-16.0) g/dl Hct 31.8 L (37.0-47.0) % Plt Count 344 (130-400) K/uL BMP 03/25/24 06:52 Sodium 141 Potassium 4.0 Chloride 106 Carbon Dioxide 27 BUN 57 H Creatinine 2.03 H Glucose 82 Calcium 9.7
[2024-03-25 14:47] LABS: Angiotensin Converting Enzyme 41 U/L (9-67); Anti-Centromere Ab <1.0 NEG AI (<1.0 NEG); Anti-Glom Basement Antibody <1.0 AI (<1.0); Anti-SS-A <1.0 NEG AI (<1.0 NEG); Anti-SS-B <1.0 NEG AI (<1.0 NEG); Anti-dsDNA Recombinant <1 IU/mL; Cyclic Citrullinated Pep IgG <16 UNITS; JO 1 Antibody <1.0 NEG AI (<1.0 NEG); Proteinase-3 Ab <1.0 AI; RNP Antibody <1.0 NEG AI (<1.0 NEG); Rheumatoid Factor 39 IU/mL (<14); Sm Antibody <1.0 NEG AI (<1.0 NEG)
--- NOTE | 2024-03-25 15:38 | Pulmonology Progress Note ---
Date of Service March 25, 2024 Assessment & Plan (1) Bilateral pneumonia: Plan: Completed course of antibiotics. Oxygen requirement has decreased modestly. Diffuse parenchymal lung disease as previously noted. Continue to diurese as renal function tolerates. She is somewhat responsive to steroid therapy. Continue with extended taper as previously outlined. Prophylactic Bactrim will be required until she is below 20 mg of prednisone daily. (2) Hypoxia: Plan: Currently requiring 6 to 8 L nasal cannula. Continue to wean as tolerated. Encourage pulmonary toileting as well as out of bed to chair. (3) SOB (shortness of breath): Plan: Secondary to above. (4) COPD (chronic obstructive pulmonary disease): Plan: Continue with current inhalers as previously ordered. (5) CHF (congestive heart failure): Plan: Diuresis as renal function tolerates Heart failure chronicity: chronic Plan Thank you for allowing us to participate in the care of this pleasant patient. Admission and Anticipated Discharge Date Admission Date: March 16, 2024 Subjective Patient seen and evaluated at bedside. She continues to have shortness of breath with any exertion. She has a cough productive of clear sputum. Otherwise, there is been no change. Review of Systems Review of Systems: As per subjective. Physical Exam Constitutional: WD/WN, vitals as above Respiratory: Auscultation: + diminished lung sounds and + crackles Cardiovascular: RRR, no murmur, no edema Results & Data Results & Data Vital Signs (Past 12 Hours) Vital Signs Temp Pulse Pulse Resp BP Pulse Ox O2 Del Method 03/25/24 15:12 36.4 C L 63 19 118/75 95 Nasal Cannula 03/25/24 13:00 86 15 91 Oxymask 03/25/24 11:33 36.6 C 79 19 110/68 90 Nasal Cannula 03/25/24 09:49 High Flow Nasal Cannula 03/25/24 08:00 03/25/24 07:23 75 17 89 L Nasal Cannula 03/25/24 07:04 36.7 C 83 17 119/70 90 High Flow Nasal Cannula 03/25/24 07:02 64 03/25/24 04:07 36.8 C 67 18 100/61 90 High Flow Nasal Cannula O2 Del Method O2 Flow Rate 03/25/24 15:12 8 03/25/24 13:00 15 03/25/24 11:33 6 03/25/24 09:49 7 12/02/24 08:00 High Flow Nasal Cannula 03/25/24 07:23 7 03/25/24 07:04 7 03/25/24 07:02 03/25/24 04:07 11 PG Care Time/CCT Total # of Minutes Spent Total Time Spent with Patient: Total time spent is greater than 50% in coordination of care (as documented) at patient's floor/unit and/or counseling patient: Coding Level of Care Code 47127 SUB INP/OBS CARE 2/35MIN Diagnoses Bilateral pneumonia J18.9 Hypoxia R09.02 SOB (shortness of breath) R06.02 COPD (chronic obstructive pulmonary disease) J44.9 CHF (congestive heart failure) I50.9 Heart failure chronicity: chronic
--- NOTE | 2024-03-25 16:13 | Palliative Care Consultation ---
Date of Consultation March 25, 2024 Assessment & Plan (1) Bilateral pneumonia: iso ILD and CHF - agree with gentle diuresis /OOB / IS as tolerated, pt may benefit from IPR / Pulmonary rehab if fitting with her goals of care (2) COPD (chronic obstructive pulmonary disease): managed by pulmonology / primary team (3) CHF (congestive heart failure): managed by primary (4) Hypoxia: per primary / pulmonology Likely multifactorial - likely 2/2 #1-4; agree with aggressive pulmonary toileting / flutter / IS. Encourage out of bed to chair. Titrate down supplemental oxygen as tolerated. (5) Counseling regarding advanced directives and goals of care: Had an extensive discussion with the patient and her sister/ HCPEILEEN Cardenas at bedside Attending , QUINTON, BSRN and RT were present. and participated in trying to educate the pt and sister. Both exhibit notably low healthcare literacy. Neither could convey a working knowledge of pt's medical history, current plan of treatment, nor medically appropriate treatment options. Both appear fixated on getting the patient home yogesh regardless of likely severe and potentially life threatening consequences of pt leaving hospital AMA without access to supplemental oxygen at home. Attempt made to explain the progressive and debilitating nature of her lung disease. Theresa questioned transfer to [facility] where "her doctors there told me she would live another 10 or 20 years and don't think she needs oxygen". QUINTON offered to look into this and helped family understand that there may be significant financial responsibility for a lateral transfer. Pt made it clear that if she has a life limiting disease she does not want to spend her time in hospitals. She shared that what is most important to her is being home with her sisters and her 11 dachshunds. We discussed that if she is still in favor of life prolonging therapies, it is simply not safe to discharge her home with her current fluctuation oxygen demands and profound KOROMA. She remained fixated on going home in no more than 2 days. Helped them understand that the ability to wean her oxygen to a level safe for discharge will depend on how her body responds to current therapies. Given the pt's value on being at home, we discussed option of continuing current hospitalization including all life prolonging therapies vs a comfort directed approach that would allow her to go home sooner but would involve no more life prolonging treatments and allow for a natural at home with no further hospitalizations. Pt became tearful stating "I don't want to ". Theresa expressed anger stating "now you have said enough, now you have her scared" and asked that we leave the pt alone at this time. Reassured the pt that our intent was to provide her with all the information about her health and typical disease progression in order that she make decisions most fitting with her values and goals. pt asked about prognosis, i expressed that is difficult to predict and could be as short as a few months to a year or two, but would be dependent on her choices as well as how her body responds to any treatments. She reports that she is unsure of her wishes re endotracheal intubation and mechanical ventilation. Reviewed resuscitative efforts including CPR, shocks, medications, etc.as procedures that are done after a person dies in effort to restart the heart. She remains uncertain at this time. Theresa requests we halt any further discussion at this time and allow family time to discuss privately as a family. Ultimately they have decided against AMA at this time and agreed to continue c urrent course of treatment for only 2 more days. we will continue to follow to be available for ongoing GOC discussions. Plan IMPRESSION: 73-year-old female with a significant past medical history of COPD, tobacco abuse, MRSA pneumonia, CHF, CKD, and A-fib who presents in the setting of multifocal infiltrative process with associated hypoxia. see plan above. Thank you for allowing us to precipitate in care of this pleasant patient. Please feel free to reach out for any other questions or concerns. History of Present Illness Reason for Consultation: goals of care Requesting Physician: Berny Tay MD Attending Physician: Berny Tay MD History of Present Illness 73-year-old female with past medical history significant for dyslipidemia, COPD, asthma, history of multifocal pneumonia, chronic heart failure with preserved ejection fraction, aortic stenosis, paroxysmal atrial fibrillation, status post TAVR, obesity, GERD, CKD stage IV, macrocytic anemia, history of tobacco use, currently living with her sister presented to ED after 22wks of progressive productive cough and right-sided chest pain. At baseline she walks with a walker, but has had increasing KOROMA at home. Patient has history of MRSA pneumonia in July 2022 with bacteremia and treated for 6 weeks with IV antibiotics for presumed endocarditis as JAY could not be done. Again in June 2023 was admitted and was treated for pneumonia and E. coli UTI. This hospitalization has been complicated by PAULETTE as well as progression of her interstitial lung disease with worsening KOROMA. Allergies Allergy/AdvReac Type Severity Reaction Status Date / Time dog dander Allergy Intermediate Sneezing Verified 10/11/23 11:38 azithromycin Allergy Rash Verified 10/11/23 11:38 Corticosteroids Allergy Rash Verified 10/11/23 11:38 (Glucocorticoids) egg Allergy SPECIFIC-DUCK Verified 10/11/23 11:38 EGG CAUSED FACIAL SWELLING gabapentin Allergy "went very Verified 10/11/23 11:38 loopy" nystatin Allergy Rash Verified 10/11/23 11:38 pollen extracts Allergy HAYFEVER Verified 10/11/23 11:38 methylprednisolone AdvReac Unknown Verified 10/11/23 11:38 [From Depo-Medrol] Home Medications Medication Instructions Recorded Confirmed Type ipratropium 0.5 mg-albuterol 3 mg 3 ml inhalation Q6H PRN Shortness 04/03/22 03/16/24 History (2.5 mg base)/3 mL nebulization Of Breath Or Wheezing soln albuterol sulfate 90 mcg/actuation 2 puff inhalation QID PRN 09/02/22 03/16/24 Rx aerosol inhaler (Ventolin HFA) Shortness Of Breath Or Wheezing #6.7 grams amiodarone 200 mg tablet 200 mg PO QAM #30 tabs 09/02/22 03/16/24 Rx ascorbic acid (vitamin C) 500 mg 250 mg (1/2 x 500 mg) PO DAILY@12 09/02/22 03/16/24 Rx tablet #30 tabs ferrous sulfate 325 mg (65 mg 325 mg PO DAILY@12 #30 tabs 09/02/22 03/16/24 Rx iron) tablet metoprolol succinate 25 mg capsule 25 mg PO QAM #30 ea 09/02/22 03/16/24 Rx sprinkle, ext. release 24 hr pantoprazole 40 mg tablet,delayed 40 mg PO BID #60 tabs 09/02/22 03/16/24 Rx release simvastatin 10 mg tablet 10 mg PO HS #30 tabs 09/02/22 03/16/24 Rx furosemide 20 mg tablet 40 mg PO QAM 07/16/23 03/16/24 History tramadol 50 mg tablet 50 mg PO BID PRN pain 07/16/23 03/16/24 History acetaminophen 500 mg tablet 1,000 mg PO TID 10/02/23 03/16/24 History aspirin 81 mg chewable tablet 81 mg PO QAM 10/02/23 03/16/24 History clopidogrel 75 mg tablet 75 mg PO QAM 10/02/23 03/16/24 History famotidine 10 mg tablet 10 mg PO QAM 10/02/23 03/16/24 History fluticasone propionate 110 1 inh inhalation QAM 10/02/23 03/16/24 History mcg/actuation HFA aerosol inhaler levothyroxine 50 mcg tablet 50 mcg PO QAM 10/02/23 03/16/24 History magnesium oxide 400 mg PO BID 10/02/23 03/16/24 History topiramate 50 mg tablet (Topamax) 25 - 50 mg PO UD 10/02/23 03/16/24 History triamcinolone acetonide 0.5 % 1 applic topical BID 03/16/24 03/16/24 History topical cream (Triderm) Patient History Medical History Hx MRSA infection 07/2022, went to [facility] from [facility]>transferred to [place] for 13 days Weakness uses wheelchair and walker 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 bean, [facility] Hx of aortic valve stenosis History of anemia no current issues Hx of acute respiratory failure 07/2023, hospitalized at [facility] w/pneumonia and UTI; per sister-pt cannot lay flat when sleeping Congestive heart failure COPD (chronic obstructive pulmonary disease) daily and prn inh; also has neb prn>not used often Kidney stones hx Osteoarthritis Stomach ulcer hx ~2009 Migraine SOB (shortness of breath) on exertion hx Cardiac murmur hx Surgical History Hx of cardiac catheterization 2018, preoperative for TAVR, [facility], no stents; f/u dr bean, [facility] cardio. Hx of cholecystectomy S/P TAVR (transcatheter aortic valve replacement) 05/09/2019, [facility] que; f/u dr. bean, [facility] History of esophagogastroduodenoscopy (EGD) History of colonoscopy History of cystoscopy Family History Father Family history of diabetes mellitus Social History (Updated 03/16/24 @ 11:51 by Mireille De Guzman RN) Smoking Status: Former smoker Tobacco Type: Cigarettes Cigarettes Per Day: QUIT 2 MONTHS AGO; Smoking End Date: 2018; Second Hand Exposure: No; Do You Dip or Chew Tobacco: No; Tobacco Cessation Education Requested by Patient: No Hx Alcohol Use: No Hx Substance Use: No Preferred Language: Moroccan Communication Ability: Effective Educational Specialist Required: No Beliefs That Will Affect Care: None Current Living Situation: Family Current Living Situation Comment: Lives at home with 2 sisters Other Information That Helps Us Care for You: No Feels Safe at Home: Yes Safety Concerns: Feels Safe At This Time Assistive Devices: Glasses, Stair Lift, Walker and Wheelchair Review of Systems Review of Systems: All systems reviewed & are unremarkable except as noted in Subjective Physical Exam Physical Exam: Physical Exam: Vitals signs as noted above General Appearance:Morbidly Obese, +KOROMA tachypnea and accessory muscle use on 15L SFM Head: normocephalic, Atraumatic Eyes: normal inspection, EOMI Neck: supple, Trachea midline Respiratory/Chest: Decreased breath sounds, scattered crackles, moderate accessory muscle use, tachypnea, pOx in mid-high 88s on 15L SFM Cardiovascular: S1, S2, No murmur Abdomen/GI:Soft, Non tender, Bowel sounds present Extremities/Musculoskeletal:normal inspection, mild edema in all four extremities Neurologic/Psych:AAOX3, grossly no focal neurological deficits Skin: pale, warm Results & Data Vital Signs (Past 12 Hours) Vital Signs Temp Pulse Pulse Resp BP Pulse Ox O2 Del Method 03/25/24 15:12 36.4 C L 63 19 118/75 95 Nasal Cannula 03/25/24 13:00 86 15 91 Oxymask 03/25/24 11:33 36.6 C 79 19 110/68 90 Nasal Cannula 03/25/24 09:49 High Flow Nasal Cannula 03/25/24 08:00 03/25/24 07:23 75 17 89 L Nasal Cannula 03/25/24 07:04 36.7 C 83 17 119/70 90 High Flow Nasal Cannula 03/25/24 07:02 64 O2 Del Method O2 Flow Rate 03/25/24 15:12 8 03/25/24 13:00 15 03/25/24 11:33 6 03/25/24 09:49 7 03/25/24 08:00 High Flow Nasal Cannula 03/25/24 07:23 7 03/25/24 07:04 7 03/25/24 07:02 Laboratory Results Abnormal lab results 03/20/24 03/25/24 Range/Units 04:57 06:52 WBC 20.10 H (4.8-10.8) K/ul RBC 3.21 L (4.20-5.40) M/uL Hgb 10.1 L (12.0-16.0) g/dl Hct 31.8 L (37.0-47.0) % MCHC 31.8 L (32.0-36.0) g/dL RDW Std Deviation 52.6 H (36.4-46.3) fL RDW Coeff of Moni 14.6 H (11.5-14.5) % BUN 57 H (6-23) mg/dl Creatinine 2.03 H (0.6-1.2) mg/dl BUN/Creatinine Ratio 28.1 H (10-20) Rheumatoid Factor 39 H (<14) IU/mL Diagnostic Findings Chest CT 03/16/24 07:56 CT OF THE CHEST WITHOUT IV CONTRAST CLINICAL HISTORY: Shortness of breath, cough and infiltrates. COMPARISON STUDY: Chest CT July 16, 2023. Chest radiograph performed earlier today. CT DOSE: 842.88 mGy.cm TECHNIQUE: Axial images of the chest were obtained without IV contrast. Images were reviewed in the axial, sagittal, and coronal planes. IV contrast was not administered for this examination. Automated exposure control was utilized for the study. A dose lowering technique was utilized adhering to the principles of ALARA. FINDINGS: The heart is moderately enlarged. There is no pericardial effusion. A prosthetic aortic valve is noted. Note is made of dilatation of the central pulmonary arteries. The left pulmonary artery measures 3.6 cm in caliber. Mildly enlarged mediastinal lymph nodes are similar to prior CT. A right paratracheal lymph node on image 68 of 213 measures 1.8 x 1.5 cm. There is no pneumothorax or pleural effusion. The lungs are suboptimally assessed due to respiratory motion. Extensive alveolar opacities throughout the lungs are noted, including groundglass opacities and small foci of consolidation. There is no cavitation. No central obstructing mass is present. There is no lobar consolidation. The gallbladder is surgically absent. IMPRESSION: 1. Extensive alveolar opacities throughout the lungs, including groundglass opacities and foci of developing consolidation. The findings favor multifocal pneumonia. Pulmonary edema is considered less likely. Follow-up chest CT in 3 months to ensure resolution is recommended. 2. Cardiomegaly. Dilatation of the central pulmonary arteries suggestive of pulmonary hypertension. 3. No pleural effusion. No pneumothorax. 4. Mildly enlarged mediastinal lymph nodes, similar to prior exam. These can be assessed on follow-up CT to ensure stability. ACT 112: Negative or not required by law. Electronically signed by: Shawn Juarez M.D. 03/16/2024 9:58 AM Chest X-Ray 03/24/24 07:00 EXAM: XR chest 1V portable CLINICAL HISTORY: RESP FAILURE HX OF LUNG CA RESP DISTRESS HX OF LUNG CA KAA TECHNIQUE: An X-ray image of the chest is obtained in 1 AP projection. COMPARISON: 03/22/2024 CR. FINDINGS: Pulmonary Parenchyma: Reduced volume of both lungs with still noted bilateral strands and patchy opacities are noted at both lung cobos more evident at the left lung suggesting interstitial pulmonary opacification of the left costophrenic recess may suggest pleural thickening/ effusion. Prominent hilar shadow on both sides. Heart and Mediastinum: Heart size and shape are normal. No mediastinal widening or masses. No hilar or mediastinal lymphadenopathy. Lower mediastinal stent. Bony Thorax: Spondylo-degenerative changes. Bony thorax appears intact without fractures or deformities. Soft Tissues: Soft tissues overlying the chest wall are unremarkable. IMPRESSION: 1. No gross interval changes with bilateral near diffuse pulmonary opacities, prominent robina with evidence of left mild pleural thickening/ effusion. 2. Further CT assessment/ close follow up are recommended. Electronically signed by Sejal Hoskins 03-24-2024 08:34 AM Medications Administered Current Inpatient Medications Acetaminophen (Acetaminophen 500 Mg Tab) 1,000 mg PO TID [facility] Stop: 04/15/24 08:59 Last Admin: 03/25/24 14:20 Dose: 1,000 mg Albuterol (Albuterol Hfa 8 Gm Inhaler) 2 puffs INH QIDR [facility] Stop: 04/18/24 12:29 Last Admin: 03/25/24 14:25 Dose: 2 puffs Ascorbic Acid (Ascorbic Acid 500 Mg Tab) 250 mg PO DAILY@12 [facility] Stop: 04/15/24 11:59 Last Admin: 03/25/24 11:36 Dose: 250 mg Aspirin (Aspirin 81 Mg Chew) [facility] Stop: 04/15/24 08:59 Last Admin: 03/25/24 08:41 Dose: 81 mg Benzonatate (Benzonatate 100 Mg Capsule) 100 mg PO TID [facility] Stop: 04/18/24 13:59 Last Admin: 03/25/24 14:20 Dose: 100 mg Clopidogrel Bisulfate (Clopidogrel Bisulfate 75 Mg Tab) 75 mg PO [facility] Stop: 04/15/24 08:59 Last Admin: 03/25/24 08:35 Dose: 75 mg Famotidine (Famotidine 10 Mg Tablet) 10 mg PO [facility] Stop: 04/15/24 08:59 Last Admin: 03/25/24 08:34 Dose: 10 mg Ferrous Sulfate (Ferrous Sulfate 325 Mg Tab) 325 mg PO DAILY@12 [facility] Stop: 04/15/24 11:59 Last Admin: 03/25/24 11:36 Dose: 325 mg Fluticasone Furoate (Fluticasone Furoate 100mcg 14 Puffs/Inhaler) 1 puffs [facility] Stop: 04/16/24 08:59 Last Admin: 03/25/24 08:36 Dose: 1 puffs Heparin Sodium (Porcine) (Heparin Sod 5,000 Unit/0.5 Ml Vial) 5,000 units SQ TID [facility] Stop: 04/15/24 08:59 Last Admin: 03/25/24 14:20 Dose: 5,000 units Ipratropium [place] (Ipratropium [place] Neb Soln 0.02% 0.5mg/2.5ml Vial) 0.5 mg INH Q8H PRN PRN Reason: Wheezing Stop: 04/18/24 12:22 Levalbuterol HCl (Levalbuterol 1.25mg/0.5ml Neb) 1.25 mg NEB Q4H PRN PRN Reason: Shortness Of Breath Stop: 04/18/24 12:15 Levothyroxine Sodium (Levothyroxine Sodium 50 Mcg Tablet) 50 mcg PO DAILYBB [facility] Stop: 04/15/24 08:59 Last Admin: 03/25/24 05:30 Dose: 50 mcg Magnesium Oxide (Magnesium Oxide 400 Mg Tab) 400 mg PO BID [facility] Stop: 04/15/24 08:59 Last Admin: 03/25/24 08:35 Dose: 400 mg Menthol (Cough Drop (Sugar Free) Sanjeev 24 Sanjeev/1 Box) 1 sanjeev BUCCAL Q6H PRN PRN Reason: Sore Throat Stop: 04/17/24 21:39 Last Admin: 03/19/24 12:50 Dose: 1 sanjeev Metoprolol Succinate (Metoprolol Succ 25mg Ext Rel Tab) 25 mg PO QAM [facility] Stop: 04/15/24 08:59 Last Admin: 03/17/24 09:17 Dose: 25 mg Midodrine (Midodrine Hcl 10 Mg Tab) 10 mg PO TID@0800,1200,1700 [facility] Stop: 04/18/24 11:59 Last Admin: 03/25/24 12:38 Dose: 10 mg Nystatin (Nystatin Susp 500,000 U/5 Ml Udc) 5 ml PO QID [facility] Stop: 03/31/24 08:59 Last Admin: 03/25/24 12:36 Dose: 5 ml Pantoprazole Sodium (Pantoprazole 40 Mg Tab) 40 mg PO BID [facility] Stop: 04/15/24 08:59 Last Admin: 03/25/24 08:35 Dose: 40 mg Polyethylene Glycol (Polyethylene (Miralax) 17 Gm Pack) 17 gm PO DAILY PRN PRN Reason: Constipation Stop: 04/15/24 07:55 Prednisone (Prednisone 20 Mg Tab) 40 mg PO DAILY [facility] Stop: 04/23/24 08:59 Last Admin: 03/25/24 08:34 Dose: 40 mg Simvastatin (Simvastatin 10 Mg Tab) 10 mg PO HS [facility] Stop: 04/15/24 20:59 Last Admin: 03/24/24 20:23 Dose: 10 mg Sodium Chloride (Sodium Chloride 0.65% Na Soln 45 Ml ([place])) 2 sprays NA BID PRN PRN Reason: Nasal Congestion Stop: 04/17/24 00:15 Topiramate (Topiramate 50 Mg Tab) 50 mg PO 0900,1400 [facility] Stop: 04/15/24 08:59 Last Admin: 03/25/24 14:21 Dose: 50 mg Topiramate (Topiramate 25 Mg Tab) 25 mg PO HS [facility] Stop: 04/15/24 20:59 Last Admin: 03/24/24 20:23 Dose: 25 mg Tramadol HCl (Tramadol Hcl 50 Mg Tablet) 50 mg PO BID PRN PRN Reason: pain Stop: 04/15/24 07:55 Last Admin: 03/24/24 23:14 Dose: 50 mg Triamcinolone Acetonide (Triamcinolone Acet 0.5% Cr 15 Gm Tube) 1 appln TOP BID [facility] Stop: 04/15/24 08:59 Last Admin: 03/25/24 08:42 Dose: 1 appln Trimethoprim/Sulfamethoxazole (Sulfamethoxazole/Trimethoprim Ds 800/160mg Tab) 1 tab PO MoWeFr [facility] Stop: 04/24/24 08:59 Last Admin: 03/25/24 08:34 Dose: 1 tab PG Care Time/CCT Total # of Minutes Spent Total Time Spent with Patient: Total time spent is greater than 50% in coordination of care (as documented) at patient's floor/unit and/or counseling patient: Advanced Care Planning 25619 Advanced Care Planning 30 [place] [address] INT INP/OBS CARE 1/40MIN Patient Type New Medical Decision Making Moderate Complexity Diagnoses Bilateral pneumonia J18.9 COPD (chronic obstructive pulmonary disease) J44.9 CHF (congestive heart failure) I50.9 Hypoxia R09.02 Counseling regarding advanced directives and goals of care Z71.89 Additional Codes Advanced Care Planning - 11451 Advanced Care Planning 30 Min: 41787 Advanced Care Planning 30 Min ([id number])
[2024-03-26 07:57] LABS: Hematocrit (blood only) 30.8 % (37.0-47.0); Hemoglobin 9.9 g/dl (12.0-16.0); Mean Corpuscular Hemoglobin 31.8 pg (25.0-34.0); Mean Corpuscular Hgb Conc 32.1 g/dL (32.0-36.0); Mean Platelet Volume 10.6 fL (9.4-12.4); Nucleated RBC # (auto) 0.03 K/uL (0.00-0.12); Nucleated RBC % (auto) 0.1 %; Platelet Count 301 K/uL (130-400); RDW Coefficient of Variation 15.2 % (11.5-14.5); RDW Standard Deviation 53.2 fL (36.4-46.3); Red Blood Count 3.11 M/uL (4.20-5.40); White Blood Count 20.67 K/ul (4.8-10.8)
[2024-03-26 08:15] LABS: Calcium 9.4 mg/dl (8.6-10.3); Creatinine Clr Calc Pharmacy 31.4 ml/min; Potassium 4.3 mmol/L (3.5-5.1)
--- NOTE | 2024-03-26 09:12 | Pulmonology Progress Note ---
Date of Service March 26, 2024 Assessment & Plan (1) Idiopathic interstitial pneumonia: (2) Bilateral pneumonia: Plan: Completed course of antibiotics. Oxygen requirement has decreased modestly. Diffuse parenchymal lung disease as previously noted. Continue to diurese as renal function tolerates. She is somewhat responsive to steroid therapy. Continue with extended taper as previously outlined. Prophylactic Bactrim will be required until she is below 20 mg of prednisone daily. Patient too unstable for bronchoscopic evaluation at this time. Extensive conversation had with the patient and family at bedside. Unfortunately, she continues to fail despite aggressive management. Additionally, the patient is reluctant to dissipate in activities that would help benefit her lungs include incentive spirometry, flutter valve therapy, and out of bed to chair. While I do recognize the dyspnea that she is experiencing, her body would certainly benefit from this and it was explained to her as to why. (3) Hypoxia: Plan: Currently requiring 10-12 L nasal cannula. Continue to wean as tolerated. Encourage pulmonary toileting as well as out of bed to chair. (4) SOB (shortness of breath): Plan: Secondary to above. (5) COPD (chronic obstructive pulmonary disease): Plan: Continue with current inhalers as previously ordered. (6) CHF (congestive heart failure): Plan: Diuresis as renal function tolerates Heart failure chronicity: chronic (7) Hypoxemia: (8) Obesity hypoventilation syndrome: Plan Thank you for allowing us to participate in the care of this pleasant patient. Admission and Anticipated Discharge Date Admission Date: March 16, 2024 Supervising Physician Co-Signing Physician Notes Patient seen and examined with MARC. Agree with the note above unless otherwise specified: Patient with idiopathic interstitial pneumonia which appears to be refractory to broad-spectrum antibiotics and prednisone. Unclear whether this is simply a refractory case of organizing pneumonia secondary to an acute bacterial infection which will take time and prolonged prednisone to recover from or another chronic cause such as nontuberculous Mycobacterium or atypical infection such as fungal infection. Will consult ID. Will order for PJP sputum PCR, histo/blasto sputum PCR, urine Legionella, Aspergillus galactomannan and serum and Fungitell. Repeat procalcitonin 0.36. No role for traditional antibiotic therapy at this time. BNP slightly increased compared to prior at 185 which may be underestimated due to her weight. She is negative about 5 L. Atypical pulmonary edema also remains a possibility. Will give her a dose of Lasix today. Chest x-ray noted with bilateral infiltrates which are unchanged compared to prior. CT chest ordered today demonstrating progressive groundglass opacities and evidence of potential early traction bronchiectasis. CT was motion degraded. Perhaps an element of pulmonary edema playing a role thus the diuretic therapy. In light of the worsening groundglass opacities. Will repeat a respiratory viral panel. Will check repeat LFTs tomorrow and if no clinical improvement and LFTs are unremarkable, will empirically start voriconazole. This was explained to the patient's sister, daughter and the patient. This is also discussed with the hospitalist service. Subjective Patient seen and evaluated bedside. She had an uneventful night. She does still require substantial amount of oxygen. She has a cough that is productive of clear sputum. She gets dyspneic with any exertion. Review of Systems Review of Systems: As per subjective. Physical Exam Physical Exam: VITAL SIGNS Vital signs and nursing notes were reviewed. GENERAL 73-year-old female appearing her stated age who is in no acute distress. Communicates well with provider and answers questions appropriately. SKIN Without rashes or lesions. NOSE Midline and without cyanosis. No epistaxis or purulent drainage noted. MOUTH/OROPHARYNX Without perioral cyanosis. NECK Neck with FROM. LUNGS Chest wall evaluation demonstrates normal chest wall A:P diameter. Auscultation reveals diminished breath sounds with crackles at the bases bilaterally. CARDIAC RRR with S1/S2. No murmur, rubs, or gallops appreciated. ABDOMEN Abdominal inspection demonstrates an obese abdomen. BS normoactive all four quadrants. No tenderness, palpable masses, or ascites noted. EXTREMITIES Nail clubbing not present. No peripheral cyanosis. Mild bilateral pretibial edema present. +3/5 radial palpated throughout. PSYCH A&Ox3 and cooperates fully with examiner. Pt is very pleasant and interacts well with examiner. Constitutional: WD/WN, vitals as above Respiratory: Auscultation: + diminished lung sounds and + crackles Cardiovascular: RRR, no murmur, no edema Results & Data Results & Data Vital Signs (Past 12 Hours) Vital Signs Temp Pulse Pulse Resp BP Pulse Ox O2 Del Method 03/26/24 07:20 91 H 20 89 L Oxymask 03/26/24 04:08 36.6 C 81 20 106/67 86 L Oxymask 03/25/24 23:34 53 L 03/25/24 23:08 36.4 C L 65 22 106/62 90 Oxymask O2 Flow Rate 03/26/24 07:20 12 03/26/24 04:08 7.0 03/25/24 23:34 03/25/24 23:08 7.0 PG Care Time/CCT Total # of Minutes Spent Total Time Spent with Patient: Total time spent is greater than 50% in coordination of care (as documented) at patient's floor/unit and/or counseling patient: Coding Level of Care Code 61039 SUB INP/OBS CARE 3/50MIN Diagnoses Idiopathic interstitial pneumonia J84.111 Bilateral pneumonia J18.9 Hypoxia R09.02 SOB (shortness of breath) R06.02 COPD (chronic obstructive pulmonary disease) J44.9 CHF (congestive heart failure) I50.9 Heart failure chronicity: chronic Hypoxemia R09.02 Obesity hypoventilation syndrome E66.2
--- NOTE | 2024-03-26 10:07 | XRay Report ---
XR chest 1V portable CLINICAL HISTORY: Hypoxia. COMPARISON STUDY: Chest CT March 16, 2024 and chest radiograph March 24, 2024. FINDINGS: Prosthetic aortic valve is noted. Cardiomegaly is unchanged. Low lung volumes are unchanged . There is no pneumothorax or pleural effusion. Extensive bilateral airspace opacities are similar to prior exam. IMPRESSION: No significant change in extensive bilateral airspace opacities. Multifocal pneumonia is favored however pulmonary edema or acute respiratory distress syndrome/acute lung injury could appea r similar. ACT 112: Negative or not required by law. Electronically signed by: Shawn Juarez M.D. 03/26/2024 10:06 AM
--- NOTE | 2024-03-26 16:08 | Hospitalist Progress Note ---
Date of Service March 26, 2024 Assessment & Plan (1) SOB (shortness of breath): Plan: 73-year-old female with past medical history significant for dyslipidemia, COPD, asthma, history of multifocal pneumonia, chronic heart failure with preserved ejection fraction, aortic stenosis, paroxysmal atrial fibrillation, status post TAVR, obesity, GERD, CKD stage IV, macrocytic anemia, history of tobacco use, currently living with her sister comes because of ongoing cough bringing up phlegm and right-sided chest pain on and off for last 2 weeks. Patient states since last 2 weeks feeling short of breath and having cough. Acute hypoxic respiratory failure Multifocal pneumonia H/O COPD, tobacco abuse, MRSA pneumonia Suspected progression of interstitial lung disease Patient presented with low oxygen saturation, tachypnea, cough and shortness of breath. Prior history of MRSA pneumonia and bacteremia in 2022 --Chest CT:Extensive alveolar opacities throughout the lungs, including groundglass opacities and foci of developing consolidation. The findings favor multifocal pneumonia. Pulmonary edema is considered less likely. Follow-up chest CT in 3 months to ensure resolution is recommended. Cardiomegaly. Dilatation of the central pulmonary arteries suggestive of pulmonary hypertension. No pleural effusion. No pneumothorax. Mildly enlarged mediastinal lymph nodes, similar to prior exam. These can be assessed on follow-up CT to ensure stability. -MRSA nares negative -Procalcitonin elevated -Blood culture: negative -sputum cx- light normal compa present. -Serological evaluation pending -on IV cefepime and doxycycline completed 7-day course of antibiotic Continue nebs Continue IV Solu-Medrol--transitioned to prednisone Started on Bactrim for chronic prophylaxis -- Appreciate pulmonary/critical care input Patient will require outpatient PFTs Amiodarone held given possible interstitial lung disease Poor candidate for bronchoscopy per pulm Palliative care consulted to address goals of care Plan to resume diuretics as able Refuses rehab placement Despite explaining the risks and benefits in detail, patient and family prefers patient be discharged home on Had significant desaturation with 2 step on 03/25/24 with oxygen saturation in the 80s. Explained to patient and patient's family that patient is not safe to be discharged home. Family upset about need for prolonged hospitalization. Currently saturating low 90s on 10 L supplemental oxygen Offered to be evaluated by another manager welding today. patient's sister refused and prefers patient to be transferred to [facility]. Discussed with triage officer at [facility] on 03/26/2024: Given need for transfer only for second opinion/and patient's request, lack of need for escalation of care--patient was refused for transfer. Discussed with pulmonology today: Recommends to recheck procalcitonin, BNP, other etiologies to rule out fungal infection, also to involve infectious disease to help with complex condition. Patient seemed to be not interested with aggressive procedures/intubation etc when offered by pulmonology today. Plan to repeat CT chest today. Consideration to restart antibiotics if infectious disease recommends Explained on multiple occasions including today to patient and patient's family regarding her disease process and condition that requires prolonged need for hospitalization. Patient agrees with current management. Service of excellence was also involved with the patient. Persistent hypotension Patient had multiple episode of hypotension on the night of 03/17- 03/18 She also reports dizziness while standing up at home as well. Lactate within normal limits Random cortisol 8.16 Cosyntropin stimulation test negative. Increased midodrine to 10 mg 3 times daily Monitor BP Mild troponin elevation Demand ischemia secondary to above Monitor Oral thrush Continue nystatin History of COPD History of asthma History of tobacco abuse quit 2018. Smoked half pack a day for 30 years Continue home inhalers, Nebs CHF with preserved ejection fraction, compensated Aortic stenosis status post TAVR Lasix resumed on 03/19 Monitor for volume overload Paroxysmal atrial fibrillation Hold metoprolol and amiodarone for now Not anticoagulated secondary to GI bleed Monitor Nonobstructive CAD Continue Plavix, aspirin ,statin and beta-nikhil CKD stage IV Presented with creatinine 1.9 around baseline Avoid nephrotoxic agents Monitor urine output Creatinine 2.04 today Anemia Anemia of chronic disease Hemoglobin 8 to 9 On iron supplement. Hb 9.9 today GERD Continue Protonix, famotidine Migraines On Topamax Tramadol as needed Hypothyroidism Continue levothyroxine Morbid obesity BMI 41.8 Counseling as outpatient DVT Px Heparin SQ Code Status Full code Disposition Refuses rehab placement Admission and Anticipated Discharge Date Admission Date: March 16, 2024 Subjective Patient is seen and examined at bedside Subjectively feels well and offers no new complaints Still requiring 10 L of supplemental oxygen to maintain saturation Discussed extensively in detail with patient's family at bedside and also with pulmonology No significant cough Denies any chest pain, dyspnea, nausea, vomiting, abdominal pain Review of Systems Review of Systems: All systems reviewed & are unremarkable except as noted in Subjective Physical Exam Physical Exam: Physical Exam: Vitals signs as noted above General Appearance:Morbidly Obese, no apparent distress Head: normocephalic, Atraumatic Eyes: normal inspection, EOMI Neck: supple, Trachea midline Respiratory/Chest: Decreased breath sounds, CTA, No accessory muscle use Cardiovascular: S1, S2, No murmur Abdomen/GI:Soft, Non tender, Bowel sounds present Extremities/Musculoskeletal:normal inspection, Trace edema Neurologic/Psych:AAOX3, grossly no focal neurological deficits Skin: normal color, warm Results & Data Results & Data Vital Signs (Past 12 Hours) Vital Signs Temp Pulse Resp BP Pulse Ox O2 Del Method O2 Flow Rate 03/26/24 15:33 36.5 C 65 17 108/62 91 Nasal Cannula 10 03/26/24 15:00 70 20 93 Nasal Cannula 9 03/26/24 10:50 36.4 C L 90 20 110/51 L 91 Nasal Cannula 10 03/26/24 10:30 83 18 95 Nasal Cannula 10 03/26/24 09:28 36.5 C 85 18 103/67 93 Nasal Cannula 10 03/26/24 08:00 High Flow Nasal Cannula 12 03/26/24 07:20 91 H 20 89 L Oxymask 12 03/26/24 04:08 36.6 C 81 20 106/67 86 L Oxymask 7.0 Laboratory Results Short CBC 03/26/24 Range/Units 07:30 WBC 20.67 H (4.8-10.8) K/ul Hgb 9.9 L (12.0-16.0) g/dl Hct 30.8 L (37.0-47.0) % Plt Count 301 (130-400) K/uL BMP 03/26/24 07:30 Sodium 140 Potassium 4.3 Chloride 108 H Carbon Dioxide 26 BUN 49 H Creatinine 2.04 H Glucose 90 Calcium 9.4
[2024-03-26] MEDS: FUROSEMIDE 40 MG/4 ML VIAL IV ONE (17:18)
--- NOTE | 2024-03-26 18:01 | CT Scan Report ---
EXAM: CT chest diagnostic wo con CLINICAL HISTORY: F/U PNA TECHNIQUE: Contiguous axial CT images of the chest were acquired without administration of intravenous contrast. Coronal and sagittal reconstructions were obtained. One of the following dose reduction techniques was utilized for this exam: Automated exposure control, adjustment of the mA and/or kV according to patient size, and use of iterative reconstruction. COMPARISON: CT chest 03-16-2024. FINDINGS: Lungs: The lung parenchyma shows diffuse ground-glass opacities and interstitial thickening, which has increased compared to previous CT chest 03-16-2024. No pulmonary nodules or masses are identified. No pleural effusion or pleural thickening. Elevated right hemidiaphragm. Mediastinum: The mediastinum is normal in size and contour. No mediastinal mass or abnormal lymphadenopathy. The heart size is within normal limits. Aortic valve replacement. Hilar Structures: The hilar structures appear normal without enlargement or abnormality. Trachea and Main Bronchi: The trachea and main bronchi are patent without evidence of obstruction or abnormality. Chest Wall: The chest wall is unremarkable with no evidence of soft tissue or bony abnormalities. Upper Abdomen: Visualized portions of the liver, spleen, adrenal glands, and kidneys are unremarkable. Bones: Diffuse spondylotic changes. IMPRESSION: 1. Ground-glass opacities with interstitial thickening are more widespread along both lung cobos, compared to previous CT chest 03-16-2024 (progressive disease), differential possibilities includes pulmonary edema, atypical extensive infection, pulmonary hemmorrhages and pulmonary alveolar proteinosis, clinical and lab correlation is advised. 2. Aortic valve replacement. 3. Diffuse spondylotic changes. Electronically signed by Sejal Hoskins 03-26-2024 6:00 PM
[2024-03-26 18:38] LABS: Adenovirus PCR Not Detected (NotDetected); Bordetella parapertussis PCR Not Detected (NotDetected); Bordetella pertussis PCR Not Detected (NotDetected); Chlamydia pneumoniae PCR Not Detected (NotDetected); Coronavirus 229E PCR Not Detected (NotDetected); Coronavirus CoV-2 (COVID19)PCR Not Detected (NotDetected); Coronavirus HKU1 PCR Not Detected (NotDetected); Coronavirus NL63 PCR Not Detected (NotDetected); Coronavirus OC43PCR Not Detected (NotDetected); Human Metapneumovirus PCR Not Detected (NotDetected); Influenza A PCR Not Detected (NotDetected); Influenza B PCR Not Detected (NotDetected); Mycoplasma pneumoniae PCR Not Detected (NotDetected); Parainfluenza Virus 1 PCR Not Detected (NotDetected); Parainfluenza Virus 2 PCR Not Detected (NotDetected); Parainfluenza Virus 3 PCR Not Detected (NotDetected); Parainfluenza Virus 4 PCR Not Detected (NotDetected); Respiratory Syncytial VirusPCR Not Detected (NotDetected); Rhinovirus/Enterovirus PCR Not Detected (NotDetected)
[2024-03-27 07:47] LABS: Hematocrit (blood only) 33.2 % (37.0-47.0); Hemoglobin 10.5 g/dl (12.0-16.0); Mean Corpuscular Hemoglobin 31.7 pg (25.0-34.0); Mean Corpuscular Hgb Conc 31.6 g/dL (32.0-36.0); Mean Corpuscular Volume 100.3 fL (80.0-100.0); Nucleated RBC # (auto) 0.03 K/uL (0.00-0.12); Nucleated RBC % (auto) 0.1 %; Platelet Count 295 K/uL (130-400); RDW Coefficient of Variation 15.5 % (11.5-14.5); Red Blood Count 3.31 M/uL (4.20-5.40); White Blood Count 21.37 K/ul (4.8-10.8)
[2024-03-27 08:09] LABS: Albumin Level 3.3 gm/dl (3.4-5.0); BUN Creatinine Ratio 24.8 (10-20); Bilirubin,Total 0.5 mg/dl (0.2-1.0); C Reactive Protein 15.72 mg/dl (0-0.5); Calcium 9.7 mg/dl (8.6-10.3); Creatinine Clr Calc Pharmacy 31.4 ml/min; Magnesium 2.6 mg/dl (1.7-2.4); Total Protein 7.4 gm/dl (6.0-8.3)
--- NOTE | 2024-03-27 10:25 | Pulmonology Progress Note ---
Date of Service March 27, 2024 Assessment & Plan (1) Idiopathic interstitial pneumonia: (2) Bilateral pneumonia: Plan: Completed course of antibiotics. Oxygen requirement still remains high. After lengthy conversation with patient and family at bedside, they appear to have frustrations in care stemming from prior interactions. We did discuss treatment plan moving forward. She underwent repeat chest CT yesterday which demonstrated progression of interstitial lung changes. She received dose of Lasix yesterday which did provide moderate diuresis. Unfortunately, her oxygen requirement still remains relatively high. Additionally, the patient has not been able to participate in activities which would help improve lung function (i.e. out of bed to chair, incentive spirometry, etc.). Labs from yesterday will be pending at this time. We will appreciate infectious disease weigh in on this complex patient. Unfortunately, she is likely looking at an extended stay at this time as we are unable to budge on her oxygen requirement this time. We did review alternatives to supplemental oxygen including temporary BiPAP therapy at night which she is adamantly refusing. Her prognosis remains guarded at this time. We will continue to aggressively manage the patient at this point given her and family wishes (3) Hypoxia: Plan: Continue to wean as tolerated. Encourage pulmonary toileting as well as out of bed to chair. (4) SOB (shortness of breath): Plan: Secondary to above. (5) COPD (chronic obstructive pulmonary disease): Plan: Continue with current inhalers as previously ordered. (6) CHF (congestive heart failure): Plan: Diuresis as renal function tolerates Heart failure chronicity: chronic (7) Hypoxemia: (8) Obesity hypoventilation syndrome: Plan Thank you for allowing us to participate in the care of this pleasant patient. Admission and Anticipated Discharge Date Admission Date: March 16, 2024 Subjective Patient seen and evaluated at bedside. She had an uneventful night. She reports that she has pain with range of motion of her RIGHT upper extremity after an awkward movement putting her arm under the covers. She states that she will not be able to participate in physical therapy today. She feels as though her breathing has been improved, but her oxygen requirement still remains relatively high at 10 to 13 L. She did diurese well after dose of Lasix yesterday Review of Systems Review of Systems: As per subjective. Physical Exam Physical Exam: VITAL SIGNS Vital signs and nursing notes were reviewed. GENERAL 73-year-old female appearing her stated age who is in no acute distress. Communicates well with provider and answers questions appropriately. SKIN Without rashes or lesions. NOSE Midline and without cyanosis. No epistaxis or purulent drainage noted. MOUTH/OROPHARYNX Without perioral cyanosis. NECK Neck with FROM. LUNGS Chest wall evaluation demonstrates normal chest wall A:P diameter. Auscultation reveals diminished breath sounds with crackles at the bases bilaterally. CARDIAC RRR with S1/S2. No murmur, rubs, or gallops appreciated. ABDOMEN Abdominal inspection demonstrates an obese abdomen. BS normoactive all four quadrants. No tenderness, palpable masses, or ascites noted. EXTREMITIES Nail clubbing not present. No peripheral cyanosis. Mild bilateral pretibial edema present. +3/5 radial palpated throughout. PSYCH A&Ox3 and cooperates fully with examiner. Pt is very pleasant and interacts well with examiner. Results & Data Results & Data Vital Signs (Past 12 Hours) Vital Signs Temp Pulse Pulse Resp BP Pulse Ox O2 Del Method 03/27/24 09:00 59 L 03/27/24 07:48 36.5 C 87 20 128/58 L 93 High Flow Nasal Cannula 03/27/24 07:29 76 20 88 L Nasal Cannula 03/27/24 07:21 High Flow Nasal Cannula 03/27/24 03:43 77 18 115/69 91 High Flow Nasal Cannula O2 Flow Rate 03/27/24 09:00 03/27/24 07:48 13 03/27/24 07:29 12 03/27/24 07:21 13 03/27/24 03:43 13 PG Care Time/CCT Total # of Minutes Spent Total Time Spent with Patient: Total time spent is greater than 50% in coordination of care (as documented) at patient's floor/unit and/or counseling patient: Coding Level of Care Code 63835 SUB INP/OBS CARE 2/35MIN Diagnoses Idiopathic interstitial pneumonia J84.111 Bilateral pneumonia J18.9 Hypoxia R09.02 SOB (shortness of breath) R06.02 COPD (chronic obstructive pulmonary disease) J44.9 CHF (congestive heart failure) I50.9 Heart failure chronicity: chronic Hypoxemia R09.02 Obesity hypoventilation syndrome E66.2
[2024-03-27] MEDS: FUROSEMIDE 40 MG/4 ML VIAL IV ONE (11:03)
--- NOTE | 2024-03-27 14:29 | Hospitalist Progress Note ---
Date of Service March 27, 2024 Assessment & Plan (1) SOB (shortness of breath): Plan: Ms. Marshall is a 73-year-old female with past medical history significant for dyslipidemia, COPD, asthma, history of multifocal pneumonia, chronic heart failure with preserved ejection fraction, aortic stenosis, paroxysmal atrial fibrillation, status post TAVR, obesity, GERD, CKD stage IV, macrocytic anemia, history of tobacco use, currently living with her sister comes because of ongoing cough bringing up phlegm and right-sided chest pain on and off for last 2 weeks and admitted on 03/16/2024. Patient initially treated for bacterial pneumonia give history; however, imaging consistent with multifocal pneumonia as similar to prior, but not responsive to antibiotics. Review noted significant interstitial thickening, and repeat CT on 03/26 noted progressive of changes. There is concern that this is an idiopathic interstitial pneumonia. Today, 03/27 at 1430, call was made to Theresa PINA) to discuss patient's case. It was explained that patient is not experiencing iatrogenic anemia from lab draws. It was explained that transfer for a procedure (like a biopsy of lung) could happen if patient was agreeable, however, family declined any invasive procedures. It was explained that given patient's current oxygen requirements, she cannot discharge home. It was explained that Pulmonary team is exhasuting their exploration for multiple eitologies, including an ID consult. It was agreed that this provider will call tomorrow at 1500 for any updates. Family declined labs for tomorrow morning. Will continue to readdress #Acute hypoxic respiratory failure concern for Idiopathic Interstitial Pneumonia #Multifocal pneumonia #History of MRSA Chest CT:Extensive alveolar opacities throughout the lungs, including groundglass opacities and foci of developing consolidation. The findings favor multifocal pneumonia. Pulmonary edema is considered less likely. Follow-up chest CT in 3 months to ensure resolution is recommended. Cardiomegaly. Dilatation of the central pulmonary arteries suggestive of pulmonary hypertension. No pleural effusion. No pneumothorax. Mildly enlarged mediastinal lymph nodes, similar to prior exam. These can be assessed on follow-up CT to ensure stability. 03/25: 1. Ground-glass opacities with interstitial thickening are more widespread along both lung cobos, compared to previous CT chest 03-16-2024 (progressive disease), differential possibilities includes pulmonary edema, atypical extensive infection, pulmonary hemmorrhages and pulmonary alveolar proteinosis, clinical and lab correlation is advised. -MRSA nares negative -Procalcitonin elevated -Blood culture: negative -sputum cx- light normal compa present. -Serological evaluation pending completed course of Abx without improvement Continue nebs Transitioned to prednisone Started on Bactrim for chronic prophylaxis given steroids Amiodarone held given possible interstitial lung disease Poor candidate for bronchoscopy per pulm given high oxygen requirement -Family verbalized understanding Palliative care consulted to address goals of care -family dose not wish for hospice at this time nor further palliative guidance Per prior hospitalist: "Discussed with triage officer at [facility] on 03/26/2024: Given need for transfer only for second opinion/and patient's request, lack of need for escalation of care--patient was refused for transfer." ID consult pending #Persistent hypotension Patient had multiple episode of hypotension on the night of 03/17- 03/18 She also reports dizziness while standing up at home as well. Lactate within normal limits Random cortisol 8.16 Cosyntropin stimulation test negative. Continue midodrine to 10 mg 3 times daily Monitor BP #Mild troponin elevation Demand ischemia secondary to above Monitor #Oral thrush Continue nystatin #COPD #asthma History of tobacco abuse quit 2018. Smoked half pack a day for 30 years Continue home inhalers, Nebs #CHF with preserved ejection fraction, compensated #Aortic stenosis status post TAVR Lasix geld Monitor for volume overload #Paroxysmal atrial fibrillation Hold metoprolol and amiodarone for now Not anticoagulated secondary to GI bleed Monitor #Nonobstructive CAD Continue Plavix, aspirin ,statin and beta-nikhil #CKD stage IV Presented with creatinine 1.9 around baseline Avoid nephrotoxic agents Monitor urine output Creatinine 2.04 today #Anemia Anemia of chronic disease Hemoglobin 8 to 9 On iron supplement. Hb 9.9 today #GERD Continue Protonix, famotidine #Migraines On Topamax Tramadol as needed #CKD stage III stable at this time, baselin 1.8-2.0 #Hypothyroidism Continue levothyroxine #Morbid obesity BMI 41.8 Counseling as outpatient DVT Px Heparin SQ Code Status Full code Disposition TBD given continued oxygen requirement Conditional Code per patient/family: patient does not with to be intubated Admission and Anticipated Discharge Date Admission Date: March 16, 2024 Subjective NAEO Patient states she feels "fine" 45 minutes spent on phone with sister, Theresa, to discuss care plan. she verbalized understanding and agreed that call will be placed 03/28 at 1500 Physical Exam Constitutional: WD/WN, vitals as above Respiratory: coarse breath sounds, diminshed in periphery Cardiovascular: RRR, no murmur, no edema Results & Data Results & Data Vital Signs (Past 12 Hours) Vital Signs Temp Pulse Pulse Resp BP Pulse Ox O2 Del Method 03/27/24 14:14 78 20 94 Nasal Cannula 03/27/24 11:01 36.4 C L 89 19 105/62 91 High Flow Nasal Cannula 03/27/24 10:46 92 H 93 Nasal Cannula 03/27/24 09:00 59 L 03/27/24 07:48 36.5 C 87 20 128/58 L 93 High Flow Nasal Cannula 03/27/24 07:29 76 20 88 L Nasal Cannula 03/27/24 07:21 High Flow Nasal Cannula 03/27/24 03:43 77 18 115/69 91 High Flow Nasal Cannula O2 Flow Rate 03/27/24 14:14 13 03/27/24 11:01 13 03/27/24 10:46 12 03/27/24 09:00 03/27/24 07:48 13 03/27/24 07:29 12 03/27/24 07:21 13 03/27/24 03:43 13 Laboratory Results Short CBC 03/27/24 Range/Units 07:14 WBC 21.37 H (4.8-10.8) K/ul Hgb 10.5 L (12.0-16.0) g/dl Hct 33.2 L (37.0-47.0) % Plt Count 295 (130-400) K/uL BMP 03/27/24 07:14 Sodium 140 Potassium 4.0 Chloride 105 Carbon Dioxide 27 BUN 50 H Creatinine 2.02 H Glucose 85 Calcium 9.7 Liver Function 03/27/24 Range/Units 07:14 Total Bilirubin 0.5 (0.2-1.0) mg/dl Direct Bilirubin 0.0 (0-0.2) mg/dl AST 17 (13-39) U/L ALT 9 (7-52) U/L Alkaline Phosphatase 161 H (34-104) U/L Albumin 3.3 L (3.4-5.0) gm/dl Medications Administered Home Medications Medication Instructions Recorded Confirmed Last Taken ipratropium 0.5 mg-albuterol 3 mg 3 ml inhalation Q6H PRN Shortness 04/03/22 03/16/24 Unknown (2.5 mg base)/3 mL nebulization Of Breath Or Wheezing soln albuterol sulfate 90 mcg/actuation 2 puff inhalation QID PRN 09/02/22 03/16/24 10/11/23 aerosol inhaler (Ventolin HFA) Shortness Of Breath Or Wheezing #6.7 grams amiodarone 200 mg tablet 200 mg PO QAM #30 tabs 09/02/22 03/16/24 03/15/24 ascorbic acid (vitamin C) 500 mg 250 mg (1/2 x 500 mg) PO DAILY@12 09/02/22 03/16/24 03/15/24 tablet #30 tabs ferrous sulfate 325 mg (65 mg 325 mg PO DAILY@12 #30 tabs 09/02/22 03/16/24 03/15/24 iron) tablet metoprolol succinate 25 mg capsule 25 mg PO QAM #30 ea 09/02/22 03/16/24 03/15/24 sprinkle, ext. release 24 hr pantoprazole 40 mg tablet,delayed 40 mg PO BID #60 tabs 09/02/22 03/16/24 03/15/24 release simvastatin 10 mg tablet 10 mg PO HS #30 tabs 09/02/22 03/16/24 03/15/24 furosemide 20 mg tablet 40 mg PO QAM 07/16/23 03/16/24 03/15/24 tramadol 50 mg tablet 50 mg PO BID PRN pain 07/16/23 03/16/24 10/11/23 acetaminophen 500 mg tablet 1,000 mg PO TID 10/02/23 03/16/24 10/11/23 aspirin 81 mg chewable tablet 81 mg PO QAM 10/02/23 03/16/24 03/15/24 clopidogrel 75 mg tablet 75 mg PO QAM 10/02/23 03/16/24 03/15/24 famotidine 10 mg tablet 10 mg PO QAM 10/02/23 03/16/24 03/15/24 fluticasone propionate 110 1 inh inhalation QAM 10/02/23 03/16/24 Unknown mcg/actuation HFA aerosol inhaler levothyroxine 50 mcg tablet 50 mcg PO QAM 10/02/23 03/16/24 03/15/24 magnesium oxide 400 mg PO BID 10/02/23 03/16/24 03/15/24 topiramate 50 mg tablet (Topamax) 25 - 50 mg PO UD 10/02/23 03/16/24 10/11/23 triamcinolone acetonide 0.5 % 1 applic topical BID 03/16/24 03/16/24 Unknown topical cream (Triderm) Active Medications Generic Name Dose Route Start Last Admin Trade Name Rajni PRN Reason Stop Dose Admin Acetaminophen 1,000 mg 03/16/24 09:00 03/27/24 13:02 Acetaminophen 500 Mg Tab PO 04/15/24 08:59 1,000 mg TID CHRYSTAL Administration Albuterol 2 puffs 03/19/24 12:30 03/27/24 14:14 Albuterol Hfa 8 Gm Inhaler INH 04/18/24 12:29 2 puffs QIDR CHRYSTAL Administration Ascorbic Acid 250 mg 03/16/24 12:00 03/27/24 11:04 Ascorbic Acid 500 Mg Tab PO 04/15/24 11:59 250 mg DAILY@12 CHRYSTAL Administration Aspirin 81 mg 03/16/24 09:00 03/27/24 08:58 Aspirin 81 Mg Chew PO 04/15/24 08:59 81 mg QAM CHRYSTAL Administration Benzonatate 100 mg 03/19/24 14:00 03/27/24 13:02 Benzonatate 100 Mg Capsule PO 04/18/24 13:59 100 mg TID CHRYSTAL Administration Clopidogrel Bisulfate 75 mg 03/16/24 09:00 03/27/24 08:58 Clopidogrel Bisulfate 75 Mg Tab PO 04/15/24 08:59 75 mg QAM CHRYSTAL Administration Famotidine 10 mg 03/16/24 09:00 03/27/24 08:59 Famotidine 10 Mg Tablet PO 04/15/24 08:59 10 mg QAM CHRYSTAL Administration Ferrous Sulfate 325 mg 03/16/24 12:00 03/27/24 11:04 Ferrous Sulfate 325 Mg Tab PO 04/15/24 11:59 325 mg DAILY@12 CHRYSTAL Administration Fluticasone Furoate 1 puffs 03/17/24 09:00 03/27/24 08:59 Fluticasone Furoate 100mcg 14 Puffs/Inhaler INH 04/16/24 08:59 1 puffs QAM CHRYSTAL Administration Protocol Heparin Sodium (Porcine) 5,000 units 03/16/24 09:00 03/27/24 13:02 Heparin Sod 5,000 Unit/0.5 Ml Vial SQ 04/15/24 08:59 5,000 units TID CHRYSTAL Administration Levothyroxine Sodium 50 mcg 03/16/24 09:00 03/27/24 06:17 Levothyroxine Sodium 50 Mcg Tablet PO 04/15/24 08:59 50 mcg DAILYBB CHRYSTAL Administration Magnesium Oxide 400 mg 03/16/24 09:00 03/27/24 08:58 Magnesium Oxide 400 Mg Tab PO 04/15/24 08:59 400 mg BID CHRYSTAL Administration Menthol 1 dyana 03/18/24 21:40 03/19/24 12:50 Cough Drop (Sugar Free) Dyana 24 Dyana/1 Box BUCCAL 04/17/24 21:39 1 dyana Q6H PRN Administration Sore Throat Metoprolol Succinate 25 mg 03/16/24 09:00 03/17/24 09:17 Metoprolol Succ 25mg Ext Rel Tab PO 04/15/24 08:59 25 mg QAM CHRYSTAL Administration Midodrine 10 mg 03/19/24 12:00 03/27/24 16:36 Midodrine Hcl 10 Mg Tab PO 04/18/24 11:59 10 mg TID@0800,1200,1700 CHRYSTAL Administration Nystatin 5 ml 03/21/24 09:00 03/27/24 16:36 Nystatin Susp 500,000 U/5 Ml Udc PO 03/31/24 08:59 5 ml QID CHRYSTAL Administration Pantoprazole Sodium 40 mg 03/16/24 09:00 03/27/24 08:58 Pantoprazole 40 Mg Tab PO 04/15/24 08:59 40 mg BID CHRYSTAL Administration Prednisone 40 mg 03/24/24 09:00 03/27/24 08:58 Prednisone 20 Mg Tab PO 04/23/24 08:59 40 mg DAILY CHRYSTAL Administration Simvastatin 10 mg 03/16/24 21:00 03/26/24 20:13 Simvastatin 10 Mg Tab PO 04/15/24 20:59 10 mg HS CHRYSTAL Administration Topiramate 50 mg 03/16/24 09:00 03/27/24 13:03 Topiramate 50 Mg Tab PO 04/15/24 08:59 50 mg 0900,1400 CHRYSTAL Administration Topiramate 25 mg 03/16/24 21:00 03/26/24 20:13 Topiramate 25 Mg Tab PO 04/15/24 20:59 25 mg HS CHRYSTAL Administration Tramadol HCl 50 mg 03/16/24 07:56 03/25/24 20:35 Tramadol Hcl 50 Mg Tablet PO 04/15/24 07:55 50 mg BID PRN Administration pain Triamcinolone Acetonide 1 appln 03/16/24 09:00 03/27/24 09:00 Triamcinolone Acet 0.5% Cr 15 Gm Tube TOP 04/15/24 08:59 1 appln BID CHRYSTAL Administration Trimethoprim/Sulfamethoxazole 1 tab 03/25/24 09:00 03/27/24 08:58 Sulfamethoxazole/Trimethoprim Ds 800/160mg Tab PO 04/24/24 08:59 1 tab MoWeFr CHRYSTAL Administration
[2024-03-28 04:00] LABS: Appearance Urine Clear (Clear); Bacteria Urine Automated None Seen (None Seen); Bilirubin Urine Negative (Negative); Blood Urine Negative (Negative); Cast Urine Automated 0-2 /lpf (0-2); Color Urine Yellow; Epithelial Cell Urine Auto 0-2 /hpf (0-2); Glucose Urine UA Negative (Negative); Ketones Urine Negative (Negative); Leukocyte Esterase Urine Negative (Negative); Nitrite Urine Negative (Negative); Protein Urine 2+ (Negative); RBC Urine Automated 0-2 /hpf (0-2); Specific Gravity Urine 1.023 (1.000-1.030); Urobilinogen Urine Negative (Negative); WBC Urine Automated 0-5 /hpf (0-5); pH Urine 6.5 (4.5-7.5)
[2024-03-28 05:08] LABS: iSTAT Arterial Blood Gas HCO3 27 meg/L (19-24); iSTAT Arterial Blood Gas pCO2 39 mmHg (35-46); iSTAT Arterial Blood Gas pH 7.44 (7.35-7.45); iSTAT Arterial Blood Gas pO2 42 mmHg (80-95); iSTAT Carbon Dioxide 28 mmol/L (24-31); iSTAT Hematocrit 32 % (37-47); iSTAT Hemoglobin 10.9 g/dl (12.0-16.0); iSTAT Potassium 4.1 mmol/L (3.3-5.0); iSTAT Sodium 140 mmol/L (135-144)
--- NOTE | 2024-03-28 10:16 | XRay Report ---
XR chest 1V portable CLINICAL HISTORY: worsening hypoxia COMPARISON STUDY: Chest radiograph and chest CT March 26, 2024. FINDINGS: Low lung volumes are unchanged. There is no pneumothorax or pleural effusion. Prosthetic ao rtic valve and cholecystectomy clips are incidentally noted. Cardiomediastinal silhouette is stable. Extensive bilateral airspace opacities have mildly progressed. IMPRESSION: Mild progression of extensive airspace opacities. Multifocal pneumonia is favored howeve r pulmonary edema or acute respiratory distress syndrome/acute lung injury could appear similar. ACT 112: Negative or not required by law. Electronically signed by: Shawn Juarez M.D. 03/28/2024 10:15 AM
--- NOTE | 2024-03-28 10:42 | Communication Note ---
Date of Service: March 28, [address] Nasrin Faulkner (attending team), family has expressed desire for attending team to manage all medical and palliative needs at this time. Pt and family continue to pursue on going life prolonging therapies with hopes for ultimate discharge back home. We will sign off at this point. Thank you for including Palliative Care in the management of this patient. Gale Mullins, [facility] Palliative Care Medicine Please call with any questions or concerns regarding this consultation.
[2024-03-28] MEDS: SODIUM CHLORIDE 0.9% IV SCH (12:16)
[2024-03-28] MEDS: VORICONAZOLE IV SCH (12:16)
--- NOTE | 2024-03-28 14:43 | Hospitalist Progress Note ---
Date of Service March 28, 2024 Assessment & Plan (1) SOB (shortness of breath): Plan: Ms. Marshall is a 73-year-old female with past medical history significant for dyslipidemia, COPD, asthma, history of multifocal pneumonia, chronic heart failure with preserved ejection fraction, aortic stenosis, paroxysmal atrial fibrillation, status post TAVR, obesity, GERD, CKD stage IV, macrocytic anemia, history of tobacco use, currently living with her sister comes because of ongoing cough bringing up phlegm and right-sided chest pain on and off for last 2 weeks and admitted on 03/16/2024. Patient initially treated for bacterial pneumonia give history; however, imaging consistent with multifocal pneumonia as similar to prior, but not responsive to antibiotics. Review noted significant interstitial thickening, and repeat CT on 03/26 noted progressive of changes. There is concern that this is an idiopathic interstitial pneumonia. On 03/27 at 1430, call was made to Theresa PINA) to discuss patient's case. It was explained that patient is not experiencing iatrogenic anemia from lab draws. It was explained that transfer for a procedure (like a biopsy of lung) could happen if patient was agreeable, however, family declined any invasive procedures. It was explained that given patient's current oxygen requirements, she cannot discharge home. It was explained that Pulmonary team is exhausting their exploration for multiple etiologies, including an ID consult. It was agreed that this provider will call tomorrow at 1500 for any updates. Family declined labs. Patient defers to sister Theresa for goals. Will continue to readdress Today, conversation was had with Theresa on 2 occasions (total 65 minutes on phone) about reasoning for HFNC. Discussed the CXR and the progression of disease and the addition of Voriconazole. Explained that this medication is "empiric" as we do not have a fungal source, but given her progression, we will treat as we cannot confirm either way. Discussed that the need for HFNC will likely recurr given the progression of the infiltrates and may be more likely during naps/sleep. Patient declined BiPAP. Theresa verbalized understanding for the potential need for the HFNC. #Acute hypoxic respiratory failure concern for Idiopathic Interstitial Pneumonia #Multifocal pneumonia #History of MRSA Chest CT: Extensive alveolar opacities throughout the lungs, including ground glass opacities and foci of developing consolidation. The findings favor multifocal pneumonia. Pulmonary edema is considered less likely. Follow-up chest CT in 3 months to ensure resolution is recommended. Cardiomegaly. Dilatation of the central pulmonary arteries suggestive of pulmonary hypertension. No pleural effusion. No pneumothorax. Mildly enlarged mediastinal lymph nodes, similar to prior exam. These can be assessed on follow-up CT to ensure stability. 03/25: 1. Ground-glass opacities with interstitial thickening are more widespread along both lung cobos, compared to previous CT chest 03-16-2024 (progressive disease), differential possibilities includes pulmonary edema, atypical extensive infection, pulmonary hemorrhages and pulmonary alveolar proteinosis, clinical and lab correlation is advised. -MRSA nares negative -Procalcitonin elevated -Blood culture: negative -sputum cx- light normal compa present. -Serological evaluation pending completed course of Abx without improvement Continue nebs Transitioned to prednisone Started on Bactrim for MWF chronic prophylaxis given steroids Amiodarone held given possible interstitial lung disease Poor candidate for bronchoscopy per pulm given high oxygen requirement -Family verbalized understanding Palliative care consulted to address goals of care -family dose not wish for hospice at this time nor further palliative guidance Per prior hospitalist: "Discussed with triage officer at [facility] on 03/26/2024: Given need for transfer only for second opinion/and patient's request, lack of need for escalation of care--patient was refused for transfer." ID consult pending Voriconazole added prophylactically given progression of infiltrates on CXR #Persistent hypotension *stable Patient had multiple episode of hypotension on the night of 03/17- 03/18 She also reports dizziness while standing up at home as well. Lactate within normal limits Random cortisol 8.16 Cosyntropin stimulation test negative. Continue midodrine to 10 mg 3 times daily Monitor BP Pressures stable #Mild troponin elevation Demand ischemia secondary to above Monitor #Oral thrush Continue nystatin EOT 03/31 magic mouth wash #COPD #asthma History of tobacco abuse quit 2019. Smoked half pack a day for 30 years Continue home inhalers, Nebs #CHF with preserved ejection fraction, compensated #Aortic stenosis status post TAVR Lasix held Monitor for volume overload #Paroxysmal atrial fibrillation Hold metoprolol and amiodarone for now Not anticoagulated secondary to GI bleed Monitor #Nonobstructive CAD Continue Plavix, aspirin ,statin and beta-nikhil #CKD stage IV Presented with creatinine 1.9 around baseline Avoid nephrotoxic agents Monitor urine output, lund removed UA negative #Anemia Anemia of chronic disease Hemoglobin 8 to 9 On iron supplement. remains stable #GERD Continue Protonix, famotidine #Migraines On Topamax Tramadol as needed #CKD stage III stable at this time, baseline 1.8-2.0 #Hypothyroidism Continue levothyroxine #Morbid obesity BMI 41.8 Counseling as outpatient DVT Px Heparin SQ Code Status Full code Disposition TBD given continued oxygen requirement Conditional Code per patient/family: patient does not with to be intubated Admission and Anticipated Discharge Date Admission Date: March 16, 2024 Subjective Required HFNC overnight Patient reports feeling better throughout the afternoon, but reports rough evening.Discussed the need for possible HFNC, patient reluctant but agrees that she will wear if she uses petroleum jelly to moisturize the nares Patient reports that close family friend passed as well today, support offered Physical Exam Constitutional: WD/WN, vitals as above Respiratory: diminished bibasilar breath sounds, scattered crackles Results & Data Results & Data Vital Signs (Past 12 Hours) Vital Signs Temp Pulse Pulse Resp BP Pulse Ox Pulse Ox 03/28/24 13:05 95 03/28/24 12:00 36.5 C 87 20 121/62 98 03/28/24 11:15 96 03/28/24 11:00 80 18 90 03/28/24 08:22 79 18 93 03/28/24 08:00 96 03/28/24 08:00 65 03/28/24 08:00 03/28/24 07:39 36.6 C 88 18 134/68 96 03/28/24 05:38 94 03/28/24 03:38 36.5 C 74 20 128/78 90 O2 Del Method O2 Del Method O2 Flow Rate FiO2 03/28/24 13:05 Nasal Cannula 11 03/28/24 12:00 High Flow Nasal Cannula 10 03/28/24 11:15 Nasal Cannula, High Flow Nasal Cannula 50 70 03/28/24 11:00 Nasal Cannula 13 03/28/24 08:22 High Flow Nasal Cannula 50 70 03/28/24 08:00 High Flow Nasal Cannula 03/28/24 08:00 03/28/24 08:00 High Flow Nasal Cannula 50 70 03/28/24 07:39 High Flow Nasal Cannula 10 03/28/24 05:38 High Flow Nasal Cannula 50 70 03/28/24 03:38 High Flow Nasal Cannula 10 Laboratory Results Urine 03/28/24 Range/Units 03:44 Urine Color Yellow Urine Appearance Clear (Clear) Urine pH 6.5 (4.5-7.5) Ur Specific [place] 1.023 (1.000-1.030) Urine Protein 2+ H (Negative) Urine Glucose (UA) Negative (Negative) Medications Administered Home Medications Medication Instructions Recorded Confirmed Last Taken ipratropium 0.5 mg-albuterol 3 mg 3 ml inhalation Q6H PRN Shortness 04/03/22 03/16/24 Unknown (2.5 mg base)/3 mL nebulization Of Breath Or Wheezing soln albuterol sulfate 90 mcg/actuation 2 puff inhalation QID PRN 09/02/22 03/16/24 10/11/23 aerosol inhaler (Ventolin HFA) Shortness Of Breath Or Wheezing #6.7 grams amiodarone 200 mg tablet 200 mg PO QAM #30 tabs 09/02/22 03/16/24 03/15/24 ascorbic acid (vitamin C) 500 mg 250 mg (1/2 x 500 mg) PO DAILY@12 09/02/22 03/16/24 03/15/24 tablet #30 tabs ferrous sulfate 325 mg (65 mg 325 mg PO DAILY@12 #30 tabs 09/02/22 03/16/24 03/15/24 iron) tablet metoprolol succinate 25 mg capsule 25 mg PO QAM #30 ea 09/02/22 03/16/24 03/15/24 sprinkle, ext. release 24 hr pantoprazole 40 mg tablet,delayed 40 mg PO BID #60 tabs 09/02/22 03/16/2402/23 release simvastatin 10 mg tablet 10 mg PO HS #30 tabs 09/02/22 03/16/24 03/15/24 furosemide 20 mg tablet 40 mg PO QAM 07/16/23 03/16/24 03/15/24 tramadol 50 mg tablet 50 mg PO BID PRN pain 07/16/23 03/16/24 10/11/23 acetaminophen 500 mg tablet 1,000 mg PO TID 10/02/23 03/16/24 10/11/23 aspirin 81 mg chewable tablet 81 mg PO QAM 10/02/23 03/16/24 03/15/24 clopidogrel 75 mg tablet 75 mg PO QAM 10/02/23 03/16/24 03/15/24 famotidine 10 mg tablet 10 mg PO QAM 10/02/23 03/16/24 03/15/24 fluticasone propionate 110 1 inh inhalation QAM 10/02/23 03/16/24 Unknown mcg/actuation HFA aerosol inhaler levothyroxine 50 mcg tablet 50 mcg PO QAM 10/02/23 03/16/24 03/15/24 magnesium oxide 400 mg PO BID 10/02/23 03/16/24 03/15/24 topiramate 50 mg tablet (Topamax) 25 - 50 mg PO UD 10/02/23 03/16/24 10/11/23 triamcinolone acetonide 0.5 % 1 applic topical BID 03/16/24 03/16/24 Unknown topical cream (Triderm) Active Medications Generic Name Dose Route Start Last Admin Trade Name Freq PRN Reason Stop Dose Admin Acetaminophen 1,000 mg 03/16/24 09:00 03/28/24 08:47 Acetaminophen 500 Mg Tab PO 04/15/24 08:59 1,000 mg TID CHRYSTAL Administration Albuterol 2 puffs 03/19/24 12:30 03/28/24 10:59 Albuterol Hfa 8 Gm Inhaler INH 04/18/24 12:29 2 puffs QIDR CHRYSTAL Administration Ascorbic Acid 250 mg 03/16/24 12:00 03/28/24 12:21 Ascorbic Acid 500 Mg Tab PO 04/15/24 11:59 250 mg DAILY@12 CHRYSTAL Administration Aspirin 81 mg 03/16/24 09:00 03/28/24 08:46 Aspirin 81 Mg Chew PO 04/15/24 08:59 81 mg QAM CHRYSTAL Administration Benzonatate 100 mg 03/19/24 14:00 03/28/24 08:58 Benzonatate 100 Mg Capsule PO 04/18/24 13:59 100 mg TID CHRYSTAL Administration Clopidogrel Bisulfate 75 mg 03/16/24 09:00 03/28/24 08:52 Clopidogrel Bisulfate 75 Mg Tab PO 04/15/24 08:59 75 mg QAM CHRYSTAL Administration Famotidine 10 mg 03/16/24 09:00 03/28/24 08:52 Famotidine 10 Mg Tablet PO 04/15/24 08:59 10 mg QAM CHRYSTAL Administration Ferrous Sulfate 325 mg 03/16/24 12:00 03/28/24 12:21 Ferrous Sulfate 325 Mg Tab PO 04/15/24 11:59 325 mg DAILY@12 CHRYSTAL Administration Fluticasone Furoate 1 puffs 03/17/24 09:00 03/28/24 08:50 Fluticasone Furoate 100mcg 14 Puffs/Inhaler INH 04/16/24 08:59 1 puffs QAM CHRYSTAL Administration Protocol Heparin Sodium (Porcine) 5,000 units 03/16/24 09:00 03/28/24 08:49 Heparin Sod 5,000 Unit/0.5 Ml Vial SQ 04/15/24 08:59 5,000 units TID CHRYSTAL Administration Voriconazole 636 mg/ Sodium 250 mls @ 125 mls/hr 03/28/24 10:15 03/28/24 12:16 Chloride IV 04/27/24 10:14 125 mls/hr Q12H CHRYSTAL Administration Levothyroxine Sodium 50 mcg 03/16/24 09:00 03/28/24 05:47 Levothyroxine Sodium 50 Mcg Tablet PO 04/15/24 08:59 50 mcg DAILYBB CHRYSTAL Administration Magnesium Oxide 400 mg 03/16/24 09:00 03/28/24 08:53 Magnesium Oxide 400 Mg Tab PO 04/15/24 08:59 400 mg BID CHRYSTAL Administration Menthol 1 dyana 03/18/24 21:40 03/19/24 12:50 Cough Drop (Sugar Free) Dyana 24 Dyana/1 Box BUCCAL 04/17/24 21:39 1 dyana Q6H PRN Administration Sore Throat Metoprolol Succinate 25 mg 03/16/24 09:00 03/17/24 09:17 Metoprolol Succ 25mg Ext Rel Tab PO 04/15/24 08:59 25 mg QAM CHRYSTAL Administration Midodrine 10 mg 03/19/24 12:00 03/28/24 12:22 Midodrine Hcl 10 Mg Tab PO 04/18/24 11:59 10 mg TID@0800,1200,1700 CHRYSTAL Administration Nystatin 5 ml 03/21/24 09:00 03/28/24 12:22 Nystatin Susp 500,000 U/5 Ml Udc PO 03/31/24 08:59 5 ml QID CHRYSTAL Administration Pantoprazole Sodium 40 mg 03/16/24 09:00 03/28/24 08:52 Pantoprazole 40 Mg Tab PO 04/15/24 08:59 40 mg BID CHRYSTAL Administration Prednisone 40 mg 03/24/24 09:00 03/28/24 08:53 Prednisone 20 Mg Tab PO 04/23/24 08:59 40 mg DAILY CHRYSTAL Administration Simvastatin 10 mg 03/16/24 21:00 03/27/24 20:46 Simvastatin 10 Mg Tab PO 04/15/24 20:59 10 mg HS CHRYSTAL Administration Topiramate 50 mg 03/16/24 09:00 03/28/24 08:49 Topiramate 50 Mg Tab PO 04/15/24 08:59 50 mg 0900,1400 CHRYSTAL Administration Topiramate 25 mg 03/16/24 21:00 03/27/24 20:47 Topiramate 25 Mg Tab PO 04/15/24 20:59 25 mg HS CHRYSTAL Administration Tramadol HCl 50 mg 03/16/24 07:56 03/25/24 20:35 Tramadol Hcl 50 Mg Tablet PO 04/15/24 07:55 50 mg BID PRN Administration pain Triamcinolone Acetonide 1 appln 03/16/24 09:00 03/28/24 08:50 Triamcinolone Acet 0.5% Cr 15 Gm Tube TOP 04/15/24 08:59 1 appln BID CHRYSTAL Administration Trimethoprim/Sulfamethoxazole 1 tab 03/25/24 09:00 03/27/24 08:58 Sulfamethoxazole/Trimethoprim Ds 800/160mg Tab PO 04/24/24 08:59 1 tab MoWeFr CHRYSTAL Administration
--- NOTE | 2024-03-28 15:30 | Electrocardiogram Report ---
Test Reason : Blood Pressure : */* mmHG Vent. Rate : 85 BPM Atrial Rate : 85 BPM P-R Int : 138 ms QRS Dur : 90 ms QT Int : 346 ms P-R-T Axes : 40 10 82 degrees QTcB Int : 411 ms Normal sinus rhythm Left ventricular hypertrophy with repolarization abnormality Abnormal ECG When compared with ECG of 19-Mar-2024 07:35, ST no longer depressed in Anterolateral leads T wave inversion no longer evident in Inferior leads T wave inversion no longer evident in Lateral leads Confirmed by Mihir Plasencia [id number] on 03/28/2024 3:29:44 PM Referred By: REFERRED SELF Confirmed By: Mihir Plasencia
[2024-03-28] MEDS: FIRST - Mouthwash BLM 5 ML UDP PO ONE (17:20)
[2024-03-28] MEDS: FIRST - Mouthwash BLM 5 ML UDP PO SCH (17:20)
[2024-03-28 18:52] LABS: ANCA Screen P-ANCA POS (Negative); Myeloperoxidase Ab <1.0 AI (<1.0); Proteinase-3 AB <1.0 AI (<1.0)
[2024-03-29] MEDS: predniSONE 20 MG TAB PO SCH (08:18)
[2024-03-29 09:11] LABS: P-ANCA(Reflex Only Do Not Ord >=1:640 Titer (<1:20)
[2024-03-29] MEDS: VORICONAZOLE IV SCH (10:35)
[2024-03-29] MEDS: SODIUM CHLORIDE 0.9% IV SCH (10:35)
--- NOTE | 2024-03-29 11:48 | Hospitalist Progress Note ---
Date of Service March 29, 2024 Assessment & Plan (1) SOB (shortness of breath): Plan: Ms. Marshall is a 73-year-old female with past medical history significant for dyslipidemia, COPD, asthma, history of multifocal pneumonia, chronic heart failure with preserved ejection fraction, aortic stenosis, paroxysmal atrial fibrillation, status post TAVR, obesity, GERD, CKD stage IV, macrocytic anemia, history of tobacco use, currently living with her sister comes because of ongoing cough bringing up phlegm and right-sided chest pain on and off for last 2 weeks and admitted on 03/16/2024. Patient initially treated for bacterial pneumonia give history; however, imaging consistent with multifocal pneumonia as similar to prior, but not responsive to antibiotics. Review noted significant interstitial thickening, and repeat CT on 03/26 noted progressive of changes. There is concern that this is an idiopathic interstitial pneumonia. On 03/27 at 1430, call was made to Theresa PINA) to discuss patient's case. It was explained that patient is not experiencing iatrogenic anemia from lab draws. It was explained that transfer for a procedure (like a biopsy of lung) could happen if patient was agreeable, however, family declined any invasive procedures. It was explained that given patient's current oxygen requirements, she cannot discharge home. It was explained that Pulmonary team is exhausting their exploration for multiple etiologies, including an ID consult. It was agreed that this provider will call tomorrow at 1500 for any updates. Family declined labs. Patient defers to sister Theresa for goals. Will continue to readdress 03/28, conversation was had with Theresa on 2 occasions (total 65 minutes on phone) about reasoning for HFNC. Discussed the CXR and the progression of disease and the addition of Voriconazole. Explained that this medication is "empiric" as we do not have a fungal source, but given her progression, we will treat as we cannot confirm either way. Discussed that the need for HFNC will likely recurr given the progression of the infiltrates and may be more likely during naps/sleep. Patient declined BiPAP. Theresa verbalized understanding for the potential need for the HFNC. Today, labs revealed p-ANCA of >=1:640, RF 36, elevated esr/crp. Discussed case with Dr. Kim LOVE over TT: recommended no further abx or antifungal agents. Discussed case with pulm regarding patient---working for transfer. Speaking with Rheumatology about immunosuppressant regimen (rituxan?), awaiting further conversations. Working to coordinated Transfer--family requests [facility]. #Acute hypoxic respiratory failure concern for Idiopathic Interstitial Pneumonia #Multifocal pneumonia #History of MRSA Chest CT: Extensive alveolar opacities throughout the lungs, including ground glass opacities and foci of developing consolidation. The findings favor multifocal pneumonia. Pulmonary edema is considered less likely. Follow-up chest CT in 3 months to ensure resolution is recommended. Cardiomegaly. Dilatation of the central pulmonary arteries suggestive of pulmonary hypertension. No pleural effusion. No pneumothorax. Mildly enlarged mediastinal lymph nodes, similar to prior exam. These can be assessed on follow-up CT to ensure stability. 03/25: 1. Ground-glass opacities with interstitial thickening are more widespread along both lung cobos, compared to previous CT chest 03-16-2024 (progressive disease), differential possibilities includes pulmonary edema, atypical extensive infection, pulmonary hemorrhages and pulmonary alveolar proteinosis, clinical and lab correlation is advised. -MRSA nares negative -Procalcitonin elevated -Blood culture: negative -sputum cx- light normal compa present. -Serological evaluation pending completed course of Abx without improvement Continue nebs Transitioned to prednisone Started on Bactrim for MWF chronic prophylaxis given steroids Amiodarone held given possible interstitial lung disease Poor candidate for bronchoscopy per pulm given high oxygen requirement -Family verbalized understanding Palliative care consulted to address goals of care -family dose not wish for hospice at this time nor further palliative guidance Per prior hospitalist: "Discussed with triage officer at [facility] on 03/26/2024: Given need for transfer only for second opinion/and patient's request, lack of need for escalation of care--patient was refused for transfer." ID consult: no antifungal, no further abx, BAL ideal Voriconazole added prophylactically; however discontinued P-ANCA >=1:640, case discussed with Dr. Paredes. Coordinating transfer, in interim if denied discussing case with Rheum as well. #Persistent hypotension *stable Patient had multiple episode of hypotension on the night of 03/17- 03/18 She also reports dizziness while standing up at home as well. Lactate within normal limits Random cortisol 8.16 Cosyntropin stimulation test negative. Continue midodrine to 10 mg 3 times daily Monitor BP Pressures stable #Mild troponin elevation Demand ischemia secondary to above Monitor #Mouth ulcerations #Oral thrush Continue nystatin EOT 03/31 magic mouth wash #COPD #asthma History of tobacco abuse quit 2018. Smoked half pack a day for 30 years Continue home inhalers, Nebs #CHF with preserved ejection fraction, compensated #Aortic stenosis status post TAVR Lasix held Monitor for volume overload #Paroxysmal atrial fibrillation Hold metoprolol and amiodarone for now Not anticoagulated secondary to GI bleed Monitor #Nonobstructive CAD Continue Plavix, aspirin ,statin and beta-nikhil #CKD stage IV Presented with creatinine 1.9 around baseline Avoid nephrotoxic agents Monitor urine output, lund removed UA negative #Anemia Anemia of chronic disease Hemoglobin 8 to 9 On iron supplement. remains stable #GERD Continue Protonix, famotidine #Migraines On Topamax Tramadol as needed #CKD stage III stable at this time, baseline 1.8-2.0 #Hypothyroidism Continue levothyroxine #Morbid obesity BMI 41.8 Counseling as outpatient DVT Px Heparin SQ Code Status Full code Disposition TBD given continued oxygen requirement Conditional Code per patient/family: patient does not with to be intubated Admission and Anticipated Discharge Date Admission Date: March 16, 2024 Subjective Fluctuating oxygen requirement, on oxymask this am Denies overt SOB at rest or any concerns this morning. More grieving over lost family friend--offered bonita support however declined Denies hemoptysis, chest pain, or any other acute concerns Physical Exam Constitutional: tearful, on oxymask no overt resp distress Respiratory: diminished bibasilar breath sounds Cardiovascular: RRR, no murmur, no edema Gastrointestinal (Abdomen): normal bowel sounds, soft, nontender, no hepatosplenomegaly Results & Data Results & Data Vital Signs (Past 12 Hours) Vital Signs Temp Pulse Pulse Resp BP Pulse Ox Pulse Ox 03/29/24 10:52 36.5 C 86 19 108/66 90 03/29/24 09:40 74 03/29/24 08:00 90 03/29/24 08:00 03/29/24 07:59 36.5 C 93 H 18 113/69 03/29/24 07:21 85 18 86 L 03/29/24 03:06 36.4 C L 74 30 H 99/62 L 88 L O2 Del Method O2 Del Method O2 Flow Rate O2 Flow Rate 03/29/24 10:52 Oxymask 15 03/29/24 09:40 03/29/24 08:00 Oxymask 16 03/29/24 08:00 Oxymask 16 03/29/24 07:59 03/29/24 07:21 Nasal Cannula 6 03/29/24 03:06 High Flow Nasal Cannula 6.0 Laboratory Results declined Medications Administered Home Medications Medication Instructions Recorded Confirmed Last Taken ipratropium 0.5 mg-albuterol 3 mg 3 ml inhalation Q6H PRN Shortness 04/03/22 03/16/24 Unknown (2.5 mg base)/3 mL nebulization Of Breath Or Wheezing soln albuterol sulfate 90 mcg/actuation 2 puff inhalation QID PRN 09/02/22 03/16/24 10/11/23 aerosol inhaler (Ventolin HFA) Shortness Of Breath Or Wheezing #6.7 grams ascorbic acid (vitamin C) 500 mg 250 mg (1/2 x 500 mg) PO DAILY@12 09/02/22 03/16/24 03/15/24 tablet #30 tabs ferrous sulfate 325 mg (65 mg 325 mg PO DAILY@12 #30 tabs 09/02/22 03/16/24 03/15/24 iron) tablet metoprolol succinate 25 mg capsule 25 mg PO QAM #30 ea 09/02/22 03/16/24 03/15/24 sprinkle, ext. release 24 hr pantoprazole 40 mg tablet,delayed 40 mg PO BID #60 tabs 09/02/22 03/16/24 03/15/24 release simvastatin 10 mg tablet 10 mg PO HS #30 tabs 09/02/22 03/16/24 03/15/24 furosemide 20 mg tablet 40 mg PO QAM 07/16/23 03/16/24 03/15/24 tramadol 50 mg tablet 50 mg PO BID PRN pain 07/16/23 03/16/24 10/11/23 acetaminophen 500 mg tablet 1,000 mg PO TID 10/02/23 03/16/24 10/11/23 aspirin 81 mg chewable tablet 81 mg PO QAM 10/02/23 03/16/24 03/15/24 clopidogrel 75 mg tablet 75 mg PO QAM 10/02/23 03/16/24 03/15/24 famotidine 10 mg tablet 10 mg PO QAM 10/02/23 03/16/24 03/15/24 fluticasone propionate 110 1 inh inhalation QAM 10/02/23 03/16/24 Unknown mcg/actuation HFA aerosol inhaler levothyroxine 50 mcg tablet 50 mcg PO QAM 10/02/23 03/16/24 03/15/24 magnesium oxide 400 mg PO BID 10/02/23 03/16/24 03/15/24 topiramate 50 mg tablet (Topamax) 25 - 50 mg PO UD 10/02/23 03/16/24 10/11/23 triamcinolone acetonide 0.5 % 1 applic topical BID 03/16/24 03/16/24 Unknown topical cream (Triderm) midodrine 10 mg tablet 10 mg PO TID@0800,1200,1700 #0 tabs 03/29/24 Unknown sulfamethoxazole 800 1 tab PO MoWeFr #0 tabs 03/29/24 Unknown mg-trimethoprim 160 mg tablet (Bactrim DS) Active Medications Generic Name Dose Route Start Last Admin Trade Name Rajni PRN Reason Stop Dose Admin Acetaminophen 1,000 mg 03/16/24 09:00 03/29/24 08:16 Acetaminophen 500 Mg Tab PO 04/15/24 08:59 1,000 mg TID CHRYSTAL Administration Albuterol 2 puffs 03/19/24 12:30 03/29/24 10:36 Albuterol Hfa 8 Gm Inhaler INH 04/18/24 12:29 2 puffs QIDR CHRYSTAL Administration Ascorbic Acid 250 mg 03/16/24 12:00 03/29/24 12:18 Ascorbic Acid 500 Mg Tab PO 04/15/24 11:59 250 mg DAILY@12 CHRYSTAL Administration Aspirin 81 mg 03/16/24 09:00 03/29/24 08:16 Aspirin 81 Mg Chew PO 04/15/24 08:59 81 mg QAM CHRYSTAL Administration Benzonatate 100 mg 03/19/24 14:00 03/29/24 08:16 Benzonatate 100 Mg Capsule PO 04/18/24 13:59 100 mg TID CHRYSTAL Administration Clopidogrel Bisulfate 75 mg 03/16/24 09:00 03/29/24 08:18 Clopidogrel Bisulfate 75 Mg Tab PO 04/15/24 08:59 75 mg QAM CHRYSTAL Administration Famotidine 10 mg 03/16/24 09:00 03/29/24 08:17 Famotidine 10 Mg Tablet PO 04/15/24 08:59 10 mg QAM CHRYSTAL Administration Ferrous Sulfate 325 mg 03/16/24 12:00 03/29/24 12:19 Ferrous Sulfate 325 Mg Tab PO 04/15/24 11:59 325 mg DAILY@12 CHRYSTAL Administration Fluticasone Furoate 1 puffs 03/17/24 09:00 03/29/24 08:20 Fluticasone Furoate 100mcg 14 Puffs/Inhaler INH 04/16/24 08:59 1 puffs QAM CHRYSTAL Administration Protocol Heparin Sodium (Porcine) 5,000 units 03/16/24 09:00 03/29/24 08:16 Heparin Sod 5,000 Unit/0.5 Ml Vial SQ 04/15/24 08:59 5,000 units TID CHRYSTAL Administration Levothyroxine Sodium 50 mcg 03/16/24 09:00 03/29/24 05:22 Levothyroxine Sodium 50 Mcg Tablet PO 04/15/24 08:59 50 mcg DAILYBB CHRYSTAL Administration Magnesium Oxide 400 mg 03/16/24 09:00 03/29/24 08:18 Magnesium Oxide 400 Mg Tab PO 04/15/24 08:59 400 mg BID CHRYSTAL Administration Menthol 1 dyana 03/18/24 21:40 03/19/24 12:50 Cough Drop (Sugar Free) Dyana 24 Dyana/1 Box BUCCAL 04/17/24 21:39 1 dyana Q6H PRN Administration Sore Throat Metoprolol Succinate 25 mg 03/16/24 09:00 03/17/24 09:17 Metoprolol Succ 25mg Ext Rel Tab PO 04/15/24 08:59 25 mg QAM CHRYSTAL Administration Midodrine 10 mg 03/19/24 12:00 03/29/24 12:18 Midodrine Hcl 10 Mg Tab PO 04/18/24 11:59 10 mg TID@0800,1200,1700 CHRYSTAL Administration Multi-Ingredient Mouthwash/Gargle 5 ml 03/28/24 16:30 03/29/24 10:36 First - Mouthwash Blm 5 Ml Udp PO 04/27/24 16:29 5 ml ACHS CHRYSTAL Administration Nystatin 5 ml 03/21/24 09:00 03/29/24 12:18 Nystatin Susp 500,000 U/5 Ml Udc PO 03/31/24 08:59 5 ml QID CHRYSTAL Administration Pantoprazole Sodium 40 mg 03/16/24 09:00 03/29/24 08:17 Pantoprazole 40 Mg Tab PO 04/15/24 08:59 40 mg BID CHRYSTAL Administration Prednisone 20 mg 03/29/24 09:00 03/29/24 08:18 Prednisone 20 Mg Tab PO 04/28/24 08:59 20 mg DAILY CHRYSTAL Administration Simvastatin 10 mg 03/16/24 21:00 03/27/24 20:46 Simvastatin 10 Mg Tab PO 04/15/24 20:59 10 mg HS CHRYSTAL Administration Topiramate 50 mg 03/16/24 09:00 03/29/24 08:19 Topiramate 50 Mg Tab PO 04/15/24 08:59 50 mg 0900,1400 CHRYSTAL Administration Topiramate 25 mg 03/16/24 21:00 03/28/24 20:05 Topiramate 25 Mg Tab PO 04/15/24 20:59 25 mg HS CHRYSTAL Administration Tramadol HCl 50 mg 03/16/24 07:56 03/25/24 20:35 Tramadol Hcl 50 Mg Tablet PO 04/15/24 07:55 50 mg BID PRN Administration pain Triamcinolone Acetonide 1 appln 03/16/24 09:00 03/29/24 08:19 Triamcinolone Acet 0.5% Cr 15 Gm Tube TOP 04/15/24 08:59 1 appln BID CHRYSTAL Administration Trimethoprim/Sulfamethoxazole 1 tab 03/25/24 09:00 03/29/24 08:18 Sulfamethoxazole/Trimethoprim Ds 800/160mg Tab PO 04/24/24 08:59 1 tab MoWeFr CHRYSTAL Administration
--- NOTE | 2024-03-29 16:19 | Infectious Disease Consult ---
Date of Service March 29, 2024 Telehealth Information I performed this visit using a real-time telehealth connection between my location and the patients location ([facility]). After connecting through interactive tele-video, patient was identified by name and date of and/or wristband check.Patient (or authorized healthcare medical claims representative) was informed that this was a telemedicine visit and it was being conducted confidentially over secure lines. My office door was closed and no one else was present in the room with me.Patient (or authorized healthcare medical claims representative) provided consent to proceed with the visit, expressed an understanding of privacy and security of the telemedicine visit, and gave permission to have a hospital medical claims representative in the room in order to assist with the visit and to conduct portions of the visit, as needed. I informed the patient (or authorized healthcare medical claims representative) that I reviewed their record and presented the opportunity for them to ask any questions regarding the visit today. The patient agreed to participate. Assessment & Plan (1) Acute hypoxic respiratory failure: (2) COPD (chronic obstructive pulmonary disease): (3) Obesity hypoventilation syndrome: (4) P-ANCA titer positive: Plan Since the patient was appropriately treated for bacterial pneumonia with broad- spectrum antibiotics, I would not recommend any further antibiotic treatment. Based on the course of the disease and the extremely high p-ANCA titers, I would be leaning toward autoimmune disease. Invasive mold infection including pulmonary aspergillosis is less likely as it does not present acutely in patients who are relatively immunocompetent. Therefore, I would recommend stopping voriconazole as it might be causing more harm than benefits at this point. If the patient is anticipated to be on 20 mg or more of prednisone (or any equivalent dose of another steroid) for 4 weeks or more, then I would recommend keeping on Bactrim for prophylaxis. Though my concern for mold or endemic mycoses remains low, I would recommend sending for Histoplasma antigen and Blastomyces antigen in urine. Optimal diagnosis remains with performing a lung biopsy and/or bronchoscopy with BAL and immunohistochemistry. History of Present Illness History of Present Illness Ms. Marshall is a 73 yo woman with medical history of COPD/asthma, heart failure with preserved ejection fraction, paroxysmal AFib, CKD stage 4, morbid obesity, and aortic stenosis status post TAVR who was admitted to [facility] on 03/16 because of acute progressive shortness of breath. On presentation, she was found to be hypoxic in the upper 80s and was placed on nasal cannula/OxyMask. CT of the chest showed extensive alveolar opacifications throughout the lungs including ground-glass opacifications and foci of developing consolidation. Therefore, she was diagnosed with multifocal bacterial pneumonia and was started on both piperacillin tazobactam and vancomycin. Three days later, her respiratory status got worse and she was placed on high-flow nasal cannula. Despite being treated with broad-spectrum antibiotics, there was no significant improvement in her respiratory distress and she continues to require nasal cannula/OxyMask. Repeat CT chest on 03/26 still showed ground-glass opacifications with interstitial thickening which are more widespread along both lung cobos. She had 2 sputum cultures sent on 03/16 and 03/26; both negative for bacterial growth and acid-fast bacilli. ID team was consulted for further recommendations and to help guide antibiotic management. Allergies Allergy/AdvReac Type Severity Reaction Status Date / Time dog dander Allergy Intermediate Sneezing Verified 10/11/23 11:38 azithromycin Allergy Rash Verified 10/11/23 11:38 Corticosteroids Allergy Rash Verified 10/11/23 11:38 (Glucocorticoids) egg Allergy SPECIFIC-DUCK Verified 10/11/23 11:38 EGG CAUSED FACIAL SWELLING gabapentin Allergy "went very Verified 10/11/23 11:38 loopy" nystatin Allergy Rash Verified 10/11/23 11:38 pollen extracts Allergy HAYFEVER Verified 10/11/23 11:38 methylprednisolone AdvReac Unknown Verified 10/11/23 11:38 [From Depo-Medrol] Home Medications Medication Instructions Recorded Confirmed Type ipratropium 0.5 mg-albuterol 3 mg 3 ml inhalation Q6H PRN Shortness 04/03/22 03/16/24 History (2.5 mg base)/3 mL nebulization Of Breath Or Wheezing soln albuterol sulfate 90 mcg/actuation 2 puff inhalation QID PRN 09/02/22 03/16/24 Rx aerosol inhaler (Ventolin HFA) Shortness Of Breath Or Wheezing #6.7 grams ascorbic acid (vitamin C) 500 mg 250 mg (1/2 x 500 mg) PO DAILY@12 09/02/22 03/16/24 Rx tablet #30 tabs ferrous sulfate 325 mg (65 mg 325 mg PO DAILY@12 #30 tabs 09/02/22 03/16/24 Rx iron) tablet metoprolol succinate 25 mg capsule 25 mg PO QAM #30 ea 09/02/22 03/16/24 Rx sprinkle, ext. release 24 hr pantoprazole 40 mg tablet,delayed 40 mg PO BID #60 tabs 09/02/22 03/16/24 Rx release simvastatin 10 mg tablet 10 mg PO HS #30 tabs 09/02/22 03/16/24 Rx furosemide 20 mg tablet 40 mg PO QAM 07/16/23 03/16/24 History tramadol 50 mg tablet 50 mg PO BID PRN pain 07/16/23 03/16/24 History acetaminophen 500 mg tablet 1,000 mg PO TID 10/02/23 03/16/24 History aspirin 81 mg chewable tablet 81 mg PO QAM 10/02/23 03/16/24 History clopidogrel 75 mg tablet 75 mg PO QAM 10/02/23 03/16/24 History famotidine 10 mg tablet 10 mg PO QAM 10/02/23 03/16/24 History fluticasone propionate 110 1 inh inhalation QAM 10/02/23 03/16/24 History mcg/actuation HFA aerosol inhaler levothyroxine 50 mcg tablet 50 mcg PO QAM 10/02/23 03/16/24 History magnesium oxide 400 mg PO BID 10/02/23 03/16/24 History topiramate 50 mg tablet (Topamax) 25 - 50 mg PO UD 10/02/23 03/16/24 History triamcinolone acetonide 0.5 % 1 applic topical BID 03/16/24 03/16/24 History topical cream (Triderm) midodrine 10 mg tablet 10 mg PO TID@0800,1200,1700 #0 tabs 03/29/24 Rx sulfamethoxazole 800 1 tab PO MoWeFr #0 tabs 03/29/24 Rx mg-trimethoprim 160 mg tablet (Bactrim DS) Patient History Medical History Hx MRSA infection 07/2022, [facility]transferred to [place] for 13 days Weakness uses wheelchair and walker prn roasterman (current) use of antithrombotics/antiplatelets GERD (gastroesophageal reflux disease) Dyslipidemia Hx of colonic polyp CKD (chronic kidney disease), stage III f/u w/specialist thru [facility] Atrial fibrillation with rapid ventricular response currently on plavix f/u dr. bean [facility] Hx of aortic valve stenosis History of anemia no current issues Hx of acute respiratory failure 07/2023, hospitalized at [facility] w/pneumonia and UTI; per sister-pt cannot lay flat when sleeping Congestive heart failure COPD (chronic obstructive pulmonary disease) daily and prn inh; also has neb prn>not used often Kidney stones hx Osteoarthritis Stomach ulcer hx ~2009 Migraine SOB (shortness of breath) on exertion hx Cardiac murmur hx Surgical History Hx of cardiac catheterization 2018, preoperative for TAVR, [facility], no stents; f/u dr bean [facility] cardio. Hx of cholecystectomy S/P TAVR (transcatheter aortic valve replacement) 05/09/2019, [facility]; f/u dr. bean [facility] History of esophagogastroduodenoscopy (EGD) History of colonoscopy History of cystoscopy Family History Father Family history of diabetes mellitus Social History (Updated 03/16/24 @ 11:51 by Mireille De Guzman RN) Smoking Status: Former smoker Tobacco Type: Cigarettes Cigarettes Per Day: QUIT 2 MONTHS AGO; Smoking End Date: 2018; Second Hand Exposure: No; Do You Dip or Chew Tobacco: No; Tobacco Cessation Education Requested by Patient: No Hx Alcohol Use: No Hx Substance Use: No Preferred Language: Thai Communication Ability: Effective Cotton Puller Required: No Beliefs That Will Affect Care: None Current Living Situation: Family Current Living Situation Comment: Lives at home with 2 sisters Other Information That Helps Us Care for You: No Feels Safe at Home: Yes Safety Concerns: Feels Safe At This Time Assistive Devices: Glasses, Stair Lift, Walker and Wheelchair Review of Systems Negative except for what was mentioned in the H&P. Physical Exam Could not be performed as the visit was conducted via TeleMed. Results & Data Vital Signs (Past 12 Hours) Vital Signs Temp Pulse Pulse Resp BP Pulse Ox Pulse Ox 03/29/24 15:32 36.8 C 72 17 123/67 93 03/29/24 15:13 75 03/29/24 15:01 87 23 94 03/29/24 10:52 36.5 C 86 19 108/66 90 03/29/24 09:40 74 03/29/24 08:00 90 03/29/24 08:00 03/29/24 07:59 36.5 C 93 H 18 113/69 03/29/24 07:21 85 18 86 L O2 Del Method O2 Del Method O2 Flow Rate O2 Flow Rate 03/29/24 15:32 Oxymask 15 03/29/24 15:13 03/29/24 15:01 Oxymask 15 03/29/24 10:52 Oxymask 15 03/29/24 09:40 03/29/24 08:00 Oxymask 16 03/29/24 08:00 Oxymask 16 03/29/24 07:59 03/29/24 07:21 Nasal Cannula 6 Laboratory Results Microbiology: 03/16: 2 sets of blood culture negative 03/16: Respiratory culture with light growth normal compa 03/26: Sputum culture with moderate growth normal compa 03/26: Sputum AFB negative (culture pending) Diagnostic Findings CT chest performed on 03/26: 1. Ground-glass opacities with interstitial thickening are more widespread along both lung cobos, compared to previous CT chest 03-16-2024 (progressive disease), differential possibilities includes pulmonary edema, atypical extensive infection, pulmonary hemorrhages and pulmonary alveolar proteinosis, clinical and lab correlation is advised. 2. Aortic valve replacement. 3. Diffuse spondylotic changes.
[2024-03-30] MEDS: LEVALBUTEROL 1.25MG/0.5ML NEB NEB PRN (05:08)
--- NOTE | 2024-03-30 07:15 | Hospitalist Progress Note ---
Date of Service March 30, 2024 Assessment & Plan (1) SOB (shortness of breath): Plan: Ms. Marshall is a 73-year-old female with past medical history significant for dyslipidemia, COPD, asthma, history of multifocal pneumonia, chronic heart failure with preserved ejection fraction, aortic stenosis, paroxysmal atrial fibrillation, status post TAVR, obesity, GERD, CKD stage IV, macrocytic anemia, history of tobacco use, currently living with her sister comes because of ongoing cough bringing up phlegm and right-sided chest pain on and off for last 2 weeks and admitted on 03/16/2024. Patient initially treated for bacterial pneumonia give history; however, imaging consistent with multifocal pneumonia as similar to prior, but not responsive to antibiotics. Review noted significant interstitial thickening, and repeat CT on 03/26 noted progressive of changes. There is concern that this is an idiopathic interstitial pneumonia. On 03/27 at 1430, call was made to Theresa PINA) to discuss patient's case. It was explained that patient is not experiencing iatrogenic anemia from lab draws. It was explained that transfer for a procedure (like a biopsy of lung) could happen if patient was agreeable, however, family declined any invasive procedures. It was explained that given patient's current oxygen requirements, she cannot discharge home. It was explained that Pulmonary team is exhausting their exploration for multiple etiologies, including an ID consult. It was agreed that this provider will call tomorrow at 1500 for any updates. Family declined labs. Patient defers to sister Theresa for goals. Will continue to readdress 03/28, conversation was had with Theresa on 2 occasions (total 65 minutes on phone) about reasoning for HFNC. Discussed the CXR and the progression of disease and the addition of Voriconazole. Explained that this medication is "empiric" as we do not have a fungal source, but given her progression, we will treat as we cannot confirm either way. Discussed that the need for HFNC will likely recurr given the progression of the infiltrates and may be more likely during naps/sleep. Patient declined BiPAP. Theresa verbalized understanding for the potential need for the HFNC. 03/29, labs revealed p-ANCA of >=1:640, RF 36, elevated esr/crp. Discussed case with Dr. Kim OLVE over TT: recommended no further abx or antifungal agents. Discussed case with pulm regarding patient---working for transfer. Speaking with Rheumatology about immunosuppressant regimen (rituxan?), awaiting further conversations. Disucssion with [facility] was successful. Patient accepted for ALS transfer for further Pulm evaluation. Patient declines labs until transfer. Today, patient required HFNC as expected overnight and back to oxymask. Awaiting transfer to [facility]--patient accepted 03/29 to be taken 03/31. Patient transitioned back to oxymask. Patient refuses bipap or other intervention. Sister Theresa states she will only let [facility] do further work up and continues to decline labs. Working to explain to patient and family that interventions are to help stabilize patient and get her to [facility] safely. #Acute hypoxic respiratory failure concern for Idiopathic Interstitial Pneumonia #Multifocal pneumonia #History of MRSA Chest CT: Extensive alveolar opacities throughout the lungs, including ground glass opacities and foci of developing consolidation. The findings favor multifocal pneumonia. Pulmonary edema is considered less likely. Follow-up chest CT in 3 months to ensure resolution is recommended. Cardiomegaly. Dilatation of the central pulmonary arteries suggestive of pulmonary hypertension. No pleural effusion. No pneumothorax. Mildly enlarged mediastinal lymph nodes, similar to prior exam. These can be assessed on follow-up CT to ensure stability. 12: 1. Ground-glass opacities with interstitial thickening are more widespread along both lung cobos, compared to previous CT chest 03-16-2024 (progressive disease), differential possibilities includes pulmonary edema, atypical extensive infection, pulmonary hemorrhages and pulmonary alveolar proteinosis, clinical and lab correlation is advised. -MRSA nares negative -Procalcitonin elevated -Blood culture: negative -sputum cx- light normal compa present. -Serological evaluation pending completed course of Abx without improvement Continue nebs Started on Bactrim for MWF chronic prophylaxis given steroids Amiodarone held given possible interstitial lung disease Poor candidate for bronchoscopy per pulm given high oxygen requirement -Family verbalized understanding Palliative care consulted to address goals of care -family dose not wish for hospice at this time nor further palliative guidance Per prior hospitalist: "Discussed with triage officer at [facility] on 03/26/2024: Given need for transfer only for second opinion/and patient's request, lack of need for escalation of care--patient was refused for transfer." ID consult: no antifungal, no further abx, BAL ideal Voriconazole added prophylactically; however discontinued P-ANCA >=1:640, case discussed with Dr. Paredes. Coordinating transfer, in interim if denied discussing case with Rheum as well. Rheum here stated to consider rituximab, however biopsy would be ideal. Patient would be agreeable to biopsy at [facility] Spoke to Pulm [facility] to transfer patient on 03/30 Patient accepted to [place]. Awaiting to transfer possibly by 03/31 03/31: Started on Prednisone 80mg IV TID at this time, discontinued pred 20mg #Persistent hypotension *stable Patient had multiple episode of hypotension on the night of 03/17- 03/18 She also reports dizziness while standing up at home as well. Lactate within normal limits Random cortisol 8.16 Cosyntropin stimulation test negative. Continue midodrine to 10 mg 3 times daily Monitor BP Pressures stable #Mild troponin elevation Demand ischemia secondary to above Monitor #Mouth ulcerations #Oral thrush Continue nystatin EOT 03/31 magic mouth wash #COPD #asthma History of tobacco abuse quit 2018. Smoked half pack a day for 30 years Continue home inhalers, Nebs #CHF with preserved ejection fraction, compensated #Aortic stenosis status post TAVR Lasix held Monitor for volume overload #Paroxysmal atrial fibrillation Hold metoprolol and amiodarone for now Not anticoagulated secondary to GI bleed Monitor #Nonobstructive CAD Continue Plavix, aspirin ,statin and beta-nikhil #CKD stage IV Presented with creatinine 1.9 around baseline Avoid nephrotoxic agents Monitor urine output, lund removed UA negative #Anemia Anemia of chronic disease Hemoglobin 8 to 9 On iron supplement. remains stable #GERD Continue Protonix, famotidine #Migraines On Topamax Tramadol as needed #CKD stage III stable at this time, baseline 1.8-2.0 #Hypothyroidism Continue levothyroxine #Morbid obesity BMI 41.8 Counseling as outpatient DVT Px Heparin SQ Code Status Full code Disposition TBD given continued oxygen requirement: awaiting transfer to [facility] Conditional Code per patient/family: patient does not with to be intubated Admission and Anticipated Discharge Date Admission Date: March 16, 2024 Subjective NAEO Upset over increased O2 in evenings explained increase in steroids, patient verbalized understanding Patient fixated on leaving [facility], explained we are working diligently to keep her stable to transfer Physical Exam Constitutional: WD/WN, vitals as above Respiratory: oxymask, diminished bibasilar breath sounds Cardiovascular: RRR, no murmur, no edema Gastrointestinal (Abdomen): normal bowel sounds, soft, nontender, no hepatosplenomegaly Results & Data Results & Data Vital Signs (Past 12 Hours) Vital Signs Temp Pulse Resp BP Pulse Ox O2 Del Method O2 Flow Rate 03/30/24 05:20 78 16 88 L High Flow Nasal Cannula 30 03/30/24 02:33 36.8 C 67 20 111/65 94 Oxymask 13 03/29/24 22:28 36.4 C L 69 17 95 Oxymask 15.0 03/29/24 22:26 Nasal Cannula 15 03/29/24 20:20 22 93 Oxymask 15 03/29/24 20:03 37.6 C H 70 16 166/42 H 93 Oxymask 15.0 FiO2 03/30/24 05:20 60 03/30/24 02:33 03/29/24 22:28 03/29/24 22:26 03/29/24 20:20 03/29/24 20:03 Medications Administered Home Medications Medication Instructions Recorded Confirmed Last Taken ipratropium 0.5 mg-albuterol 3 mg 3 ml inhalation Q6H PRN Shortness 04/03/22 03/16/24 Unknown (2.5 mg base)/3 mL nebulization Of Breath Or Wheezing soln albuterol sulfate 90 mcg/actuation 2 puff inhalation QID PRN 09/02/22 03/16/24 10/11/23 aerosol inhaler (Ventolin HFA) Shortness Of Breath Or Wheezing #6.7 grams ascorbic acid (vitamin C) 500 mg 250 mg (1/2 x 500 mg) PO DAILY@12 09/02/22 03/16/24 03/15/24 tablet #30 tabs ferrous sulfate 325 mg (65 mg 325 mg PO DAILY@12 #30 tabs 09/02/22 03/16/24 03/15/24 iron) tablet metoprolol succinate 25 mg capsule 25 mg PO QAM #30 ea 09/02/22 03/16/24 03/15/24 sprinkle, ext. release 24 hr pantoprazole 40 mg tablet,delayed 40 mg PO BID #60 tabs 09/02/22 03/16/24 03/15/24 release simvastatin 10 mg tablet 10 mg PO HS #30 tabs 09/02/22 03/16/24 03/15/24 furosemide 20 mg tablet 40 mg PO QAM 07/16/23 03/16/24 03/15/24 tramadol 50 mg tablet 50 mg PO BID PRN pain 07/16/23 03/16/24 10/11/23 acetaminophen 500 mg tablet 1,000 mg PO TID 10/02/23 03/16/24 10/11/23 aspirin 81 mg chewable tablet 81 mg PO QAM 10/02/23 03/16/24 03/15/24 clopidogrel 75 mg tablet 75 mg PO QAM 10/02/23 03/16/24 03/15/24 famotidine 10 mg tablet 10 mg PO QAM 10/02/23 03/16/24 03/15/24 fluticasone propionate 110 1 inh inhalation QA 10/02/23 03/16/24 Unknown mcg/actuation HFA aerosol inhaler levothyroxine 50 mcg tablet 50 mcg PO QAM 10/02/23 03/16/24 03/15/24 magnesium oxide 400 mg PO BID 10/02/23 03/16/24 03/15/24 topiramate 50 mg tablet (Topamax) 25 - 50 mg PO UD 10/02/23 03/16/24 10/11/23 triamcinolone acetonide 0.5 % 1 applic topical BID 03/16/24 03/16/24 Unknown topical cream (Triderm) midodrine 10 mg tablet 10 mg PO TID@0800,1200,1700 #0 tabs 03/29/24 Unknown sulfamethoxazole 800 1 tab PO MoWeFr #0 tabs 03/29/24 Unknown mg-trimethoprim 160 mg tablet (Bactrim DS) Active Medications Generic Name Dose Route Start Last Admin Trade Name Freq PRN Reason Stop Dose Admin Acetaminophen 1,000 mg 03/16/24 09:00 03/30/24 08:21 Acetaminophen 500 Mg Tab PO 04/15/24 08:59 1,000 mg TID CHRYSTAL Administration Albuterol 2 puffs 03/19/24 12:30 03/30/24 10:44 Albuterol Hfa 8 Gm Inhaler INH 04/18/24 12:29 2 puffs QIDR CHRYSTAL Administration Ascorbic Acid 250 mg 03/16/24 12:00 03/29/24 12:18 Ascorbic Acid 500 Mg Tab PO 04/15/24 11:59 250 mg DAILY@12 CHRYSTAL Administration Aspirin 81 mg 03/16/24 09:00 03/30/24 08:22 Aspirin 81 Mg Chew PO 04/15/24 08:59 81 mg QAM CHRYSTAL Administration Benzonatate 100 mg 03/19/24 14:00 03/30/24 08:23 Benzonatate 100 Mg Capsule PO 04/18/24 13:59 100 mg TID CHRYSTAL Administration Clopidogrel Bisulfate 75 mg 03/16/24 09:00 03/30/24 08:23 Clopidogrel Bisulfate 75 Mg Tab PO 04/15/24 08:59 75 mg QAM [facility] Administration Famotidine 10 mg 03/16/24 09:00 03/30/24 08:23 Famotidine 10 Mg Tablet PO 04/15/24 08:59 10 mg QAM CHRYSTAL Administration Ferrous Sulfate 325 mg 03/16/24 12:00 03/29/24 12:19 Ferrous Sulfate 325 Mg Tab PO 04/15/24 11:59 325 mg DAILY@12 [facility] Administration Fluticasone Furoate 1 puffs 03/17/24 09:00 03/30/24 08:24 Fluticasone Furoate 100mcg 14 Puffs/Inhaler INH 04/16/24 08:59 1 puffs QAM [facility] Administration Protocol Heparin Sodium (Porcine) 5,000 units 03/16/24 09:00 03/30/24 08:22 Heparin Sod 5,000 Unit/0.5 Ml Vial SQ 04/15/24 08:59 5,000 units TID [facility] Administration Levothyroxine Sodium 50 mcg 03/16/24 09:00 03/30/24 06:36 Levothyroxine Sodium 50 Mcg Tablet PO 04/15/24 08:59 50 mcg DAILYBB CHRYSTAL Administration Magnesium Oxide 400 mg 03/16/24 09:00 03/30/24 08:23 Magnesium Oxide 400 Mg Tab PO 04/15/24 08:59 400 mg BID CHRYSTAL Administration Menthol 1 dyana 03/18/24 21:40 03/19/24 12:50 Cough Drop (Sugar Free) Dyana 24 Dyana/1 Box BUCCAL 04/17/24 21:39 1 dyana Q6H PRN Administration Sore Throat Metoprolol Succinate 25 mg 03/16/24 09:00 03/17/24 09:17 Metoprolol Succ 25mg Ext Rel Tab PO 04/15/24 08:59 25 mg QAM CHRYSTAL Administration Midodrine 10 mg 03/19/24 12:00 03/30/24 08:21 Midodrine Hcl 10 Mg Tab PO 04/18/24 11:59 10 mg TID@0800,1200,1700 CHRYSTAL Administration Multi-Ingredient Mouthwash/Gargle 5 ml 03/28/24 16:30 03/30/24 08:24 First - Mouthwash Blm 5 Ml Udp PO 04/27/24 16:29 5 ml ACHS CHRYSTAL Administration Nystatin 5 ml 03/21/24 09:00 03/30/24 08:24 Nystatin Susp 500,000 U/5 Ml Udc PO 03/31/24 08:59 5 ml QID CHRYSTAL Administration Pantoprazole Sodium 40 mg 03/16/24 09:00 03/30/24 08:24 Pantoprazole 40 Mg Tab PO 04/15/24 08:59 40 mg BID CHRYSTAL Administration Prednisone 20 mg 03/29/24 09:00 03/30/24 08:24 Prednisone 20 Mg Tab PO 04/28/24 08:59 20 mg DAILY CHRYSTAL Administration Simvastatin 10 mg 03/16/24 21:00 03/27/24 20:46 Simvastatin 10 Mg Tab PO 04/15/24 20:59 10 mg HS CHRYSTAL Administration Topiramate 50 mg 03/16/24 09:00 03/30/24 08:23 Topiramate 50 Mg Tab PO 04/15/24 08:59 50 mg 0900,1400 CHRYSTAL Administration Topiramate 25 mg 03/16/24 21:00 03/29/24 20:31 Topiramate 25 Mg Tab PO 04/15/24 20:59 25 mg HS CHRYSTAL Administration Tramadol HCl 50 mg 03/16/24 07:56 03/30/24 03:32 Tramadol Hcl 50 Mg Tablet PO 04/15/24 07:55 50 mg BID PRN Administration pain Triamcinolone Acetonide 1 appln 03/16/24 09:00 03/30/24 08:24 Triamcinolone Acet 0.5% Cr 15 Gm Tube TOP 04/15/24 08:59 1 appln BID CHRYSTAL Administration Trimethoprim/Sulfamethoxazole 1 tab 03/25/24 09:00 03/29/24 08:18 Sulfamethoxazole/Trimethoprim Ds 800/160mg Tab PO 04/24/24 08:59 1 tab MoWeFr CHRYSTAL Administration
[2024-03-30] MEDS ORDERED: methylPREDNISolone 125 MG/2 ML VIAL IV SCH (14:00)
--- NOTE | 2024-03-30 14:00 | Pulmonology Progress Note ---
Date of Service March 30, 2024 Assessment & Plan (1) Idiopathic interstitial pneumonia: Plan: She has completed loading course of antibiotics. Appreciate ID input. Voriconazole discontinued as fungal infection was deemed to be less likely. Fungitell, PJP PCR from the sputum, histo/blasto PCR from sputum pending. Urine Legionella antibody was negative. She did have an elevated p-ANCA titer. She is awaiting transfer to [place] for possible lung biopsy. I am not certain that she will tolerate a lung biopsy. She is referencing a CT-guided biopsy which I do not think will be helpful in establishing a diagnosis of possible interstitial lung disease or ANCA vasculitis. I do not think that she is stable enough to undergo video-assisted thoracoscopy or cryo bronchoscopic biopsy. I will empirically increase her steroid dosing to methylprednisolone 80 mg IV, 3 times daily in an effort to temporize her idiopathic interstitial pneumonia. She may ultimately require empiric plasma exchange versus empiric rituximab therapy. (2) Hypoxia: Plan: Hypoxemia is due to combination of factors including VQ mismatch from atelectasis, obesity hypoventilation and idiopathic interstitial pneumonia. Continue to wean oxygen as able. (3) SOB (shortness of breath): Plan: Secondary to above. (4) CHF (congestive heart failure): Plan: Patient with diastolic heart failure secondary pulmonary hypertension. Will give a dose of 60 mg IV Lasix now. Heart failure chronicity: chronic Plan Pulmonary will continue to follow. Thank you for the consult. Admission and Anticipated Discharge Date Admission Date: March 16, 2024 Subjective Patient seen and examined. She is progressively more dyspneic and requiring higher amounts of oxygen. She is very frustrated with her lack of improvement. Her sisters are at bedside. She denies any chest pain, fevers or chills. She does have a dry cough. Review of Systems Review of Systems: All systems reviewed & are unremarkable except as noted in HPI & below Physical Exam Physical Exam: VITAL SIGNS Vital signs and nursing notes were reviewed. GENERAL 73-year-old female appearing her stated age who is in no acute distress. Communicates well with provider and answers questions appropriately. SKIN Without rashes or lesions. NOSE Midline and without cyanosis. No epistaxis or purulent drainage noted. MOUTH/OROPHARYNX Without perioral cyanosis. NECK Neck with FROM. LUNGS Chest wall evaluation demonstrates normal chest wall A:P diameter. Auscultation reveals diminished breath sounds with crackles at the bases bilaterally. CARDIAC RRR with S1/S2. No murmur, rubs, or gallops appreciated. ABDOMEN Abdominal inspection demonstrates an obese abdomen. BS normoactive all four quadrants. No tenderness, palpable masses, or ascites noted. EXTREMITIES Nail clubbing not present. No peripheral cyanosis. Mild bilateral pretibial edema present. +3/5 radial palpated throughout. PSYCH A&Ox3 and cooperates fully with examiner. Pt is very pleasant and interacts well with examiner. Results & Data Results & Data Vital Signs (Past 12 Hours) Vital Signs Temp Pulse Pulse Resp BP Pulse Ox O2 Del Method 03/30/24 11:28 37.1 C 78 18 117/71 91 Oxymask 03/30/24 10:50 82 20 91 Oxymask 03/30/24 08:00 83 03/30/24 08:00 Oxymask 03/30/24 07:38 36.4 C L 84 20 115/68 88 L Oxymask 03/30/24 05:20 78 16 88 L High Flow Nasal Cannula 03/30/24 02:33 36.8 C 67 20 111/65 94 Oxymask O2 Flow Rate FiO2 03/30/24 11:28 16 03/30/24 10:50 15 03/30/24 08:00 03/30/24 08:00 15 03/30/24 07:38 16 03/30/24 05:20 30 60 03/30/24 02:33 13 PG Care Time/CCT Total # of Minutes Spent Total Time Spent with Patient: Total time spent is greater than 50% in coordination of care (as documented) at patient's floor/unit and/or counseling patient: Coding Level of Care Code 04023 SUB INP/OBS CARE 2/35MIN Diagnoses Idiopathic interstitial pneumonia J84.111 Hypoxia R09.02 SOB (shortness of breath) R06.02 CHF (congestive heart failure) I50.9 Heart failure chronicity: chronic
[2024-03-30] MEDS: FUROSEMIDE 40 MG/4 ML VIAL IV ONE (14:35)
[2024-03-30] MEDS: methylPREDNISolone 80 MG in SYRINGE 0 ML IV SCH (15:46)
[2024-03-30 17:17] LABS: Aspergillus Ag Index 0.04 (<0.50); Aspergillus Antigen, Serum Not Detected (Not Detected); Fungitell (1-3)-B-D-Glucan 47 pg/mL
[2024-03-31 14:29] VITALS: RESP 24; O2SAT 93
[2024-03-31 15:07] VITALS: BP 137/76; PULSE 76; TEMP 98.6
--- NOTE | 2024-03-31 15:28 | Discharge Summary ---
Discharge Summary Date of Service March 31, 2024 Principal Dx & Hospital Course #1 = Principal Diagnosis (1) SOB (shortness of breath): Ms. Marshall is a 73-year-old female with past medical history significant for dyslipidemia, COPD, asthma, history of multifocal pneumonia, chronic heart failure with preserved ejection fraction, aortic stenosis, paroxysmal atrial fibrillation, status post TAVR, obesity, GERD, CKD stage IV, macrocytic anemia, history of tobacco use, currently living with her sister comes because of ongoing cough bringing up phlegm and right-sided chest pain on and off for last 2 weeks and admitted on 03/16/2024. Patient initially treated for bacterial pneumonia give history; however, imaging consistent with multifocal pneumonia as similar to prior, but not responsive to antibiotics. Review noted significant interstitial thickening, and repeat CT on 03/26 noted progressive of changes. There is concern that this is an idiopathic interstitial pneumonia. On 03/27 at 1430, call was made to Theresa (ARLENE) to discuss patient's case. It was explained that patient is not experiencing iatrogenic anemia from lab draws. It was explained that transfer for a procedure (like a biopsy of lung) could happen if patient was agreeable, however, family declined any invasive procedures. It was explained that given patient's current oxygen requirements, she cannot discharge home. It was explained that Pulmonary team is exhausting their exploration for multiple etiologies, including an ID consult. It was agreed that this provider will call tomorrow at 1500 for any updates. Family declined labs. Patient defers to sister Theresa for goals. Will continue to readdress 03/28, conversation was had with Theresa on 2 occasions (total 65 minutes on phone) about reasoning for HFNC. Discussed the CXR and the progression of disease and the addition of Voriconazole. Explained that this medication is "empiric" as we do not have a fungal source, but given her progression, we will treat as we cannot confirm either way. Discussed that the need for HFNC will likely recurr given the progression of the infiltrates and may be more likely during naps/sleep. Patient declined BiPAP. Theresa verbalized understanding for the potential need for the HFNC. 03/29, labs revealed p-ANCA of >=1:640, RF 36, elevated esr/crp. Discussed case with Dr. Kim LOVE over TT: recommended no further abx or antifungal agents. Discussed case with pulm regarding patient---working for transfer. Speaking with Rheumatology about immunosuppressant regimen (rituxan?), awaiting further conversations. Disucssion with [facility] was successful. Patient accepted for ALS transfer for further Pulm evaluation. Patient declines labs until transfer. For last 48 hours, atient required HFNC as expected overnight and back to oxymask. Awaiting transfer to [facility]--patient accepted 03/29 to be taken 03/31. Patient transitioned back to oxymask. Patient refuses bipap or other intervention. Sister Theresa states she will only let [facility] do further work up and continues to decline labs. Worked to explain to patient and family that interventions are to help stabilize patient and get her to [facility] safely. Today, patient on HFNC most of day without success going back to oxymask. CXR with stable infiltrates on day of discharge. #Acute hypoxic respiratory failure concern for Idiopathic Interstitial Pneumonia #Multifocal pneumonia #History of MRSA Chest CT: Extensive alveolar opacities throughout the lungs, including ground glass opacities and foci of developing consolidation. The findings favor multifocal pneumonia. Pulmonary edema is considered less likely. Follow-up chest CT in 3 months to ensure resolution is recommended. Cardiomegaly. Dilatation of the central pulmonary arteries suggestive of pulmonary hypertension. No pleural effusion. No pneumothorax. Mildly enlarged mediastinal lymph nodes, similar to prior exam. These can be assessed on follow-up CT to ensure stability. 03/25: 1. Ground-glass opacities with interstitial thickening are more widespread along both lung cobos, compared to previous CT chest 03-16-2024 (progressive disease), differential possibilities includes pulmonary edema, atypical extensive infection, pulmonary hemorrhages and pulmonary alveolar proteinosis, clinical and lab correlation is advised. -MRSA nares negative -Procalcitonin elevated -Blood culture: negative -sputum cx- light normal compa present. -Serological evaluation pending completed course of Abx without improvement Continue nebs Started on Bactrim for MWF chronic prophylaxis given steroids Amiodarone held given possible interstitial lung disease Poor candidate for bronchoscopy per pulm given high oxygen requirement -Family verbalized understanding Palliative care consulted to address goals of care -family dose not wish for hospice at this time nor further palliative guidance Per prior hospitalist: "Discussed with triage officer at [facility] on 03/26/2024: Given need for transfer only for second opinion/and patient's request, lack of need for escalation of care--patient was refused for transfer." ID consult: no antifungal, no further abx, BAL ideal Voriconazole added prophylactically; however discontinued P-ANCA >=1:640, case discussed with Dr. Paredes. Coordinating transfer, in interim if denied discussing case with Rheum as well. Rheum here stated to consider rituximab, however biopsy would be ideal. Patient would be agreeable to biopsy at [facility] Spoke to Pulm [facility] to transfer patient on 03/30 Patient accepted to [place]. Awaiting to transfer possibly by 03/31 03/30: Started on Prednisone 80mg IV TID at this time, discontinued pred 20mg 03/31: Transfer to [facility] #Persistent hypotension *stable Patient had multiple episode of hypotension on the night of 03/17- 03/18 She also reports dizziness while standing up at home as well. Lactate within normal limits Random cortisol 8.16 Cosyntropin stimulation test negative. Continue midodrine to 10 mg 3 times daily Monitor BP Pressures stable #Mild troponin elevation Demand ischemia secondary to above Monitor #Mouth ulcerations #Oral thrush Continue nystatin EOT 03/31 magic mouth wash #COPD #asthma History of tobacco abuse quit 2018. Smoked half pack a day for 30 years Continue home inhalers, Nebs #CHF with preserved ejection fraction, compensated #Aortic stenosis status post TAVR Lasix held Monitor for volume overload #Paroxysmal atrial fibrillation Hold metoprolol and amiodarone for now Not anticoagulated secondary to GI bleed Monitor #Nonobstructive CAD Continue Plavix, aspirin ,statin and beta-nikhil #CKD stage IV Presented with creatinine 1.9 around baseline Avoid nephrotoxic agents Monitor urine output, lund removed UA negative #Anemia Anemia of chronic disease Hemoglobin 8 to 9 On iron supplement. remains stable #GERD Continue Protonix, famotidine #Migraines On Topamax Tramadol as needed #CKD stage III stable at this time, baseline 1.8-2.0 #Hypothyroidism Continue levothyroxine #Morbid obesity BMI 41.8 Counseling as outpatient Notes For Next Care Provider Medication Changes From Visit Prednisone IV 80mg q 8h Midodrine 10mg q8h Admission HPI Per Admitting Provider 73-year-old female with past medical history significant for dyslipidemia, COPD, asthma, history of multifocal pneumonia, chronic heart failure with preserved ejection fraction, aortic stenosis, paroxysmal atrial fibrillation, status post TAVR, obesity, GERD, CKD stage IV, macrocytic anemia, history of tobacco use, currently living with her sister comes because of ongoing cough bringing up phlegm and right-sided chest pain on and off for last 2 weeks. Patient states since last 2 weeks feeling short of breath and having cough. She walks with a walker. For last 2 weeks is mostly in the bed. Walking to the bathroom making her short of breath. Also having on and off right-sided chest pain. Having some headache and attributes it to her migraines. Has some runny nose. No sore throat. Appetite is okay. No difficulty swallowing. No nausea. No abdominal pain. Normal bowel and bladder movements. Currently resting comfortably and hemodynamically stable. Patient has history of MRSA pneumonia in July 2022 with bacteremia and treated for 6 weeks with IV antibiotics for presumed endocarditis as JAY could not be done. Again in June 2023 was admitted and was treated for pneumonia and E. coli UTI. Past medical history. As mentioned above Past surgical history. Bile tract surgery. Cholecystectomy. Colonoscopy. EGD. TAVR. Social history. Quit smoking 2018. Smoked 0.5 pack a day for 30 years. No alc ohol use. No drug use. Family history. Father had diabetes. Mother had heart disorder. Brother has hypertension. Admission Exam Per Admitting Provider General- Not in distress Head- atraumatic Eyes- PERRL. ENT- oropharynx clear Neck- supple, no JVD. Lungs- clear to auscultation no wheezing or crackles Heart- regular rate and rhythm; no murmur, no gallop. Abdomen- normal bowel sounds, soft, nontender, no distension Extremities- no pretibial edema, no erythema seen Neuro- alert, oriented PERRL, no facial palsy; no dysarthria; moves extremities Discharge Exam Constitutional WD/WN, vitals as above Respiratory diffusely diminished breath sounds with scattered crackles Cardiovascular RRR, no murmur, no edema Gastrointestinal (Abdomen) normal bowel sounds, soft, nontender, no hepatosplenomegaly Updated Medication List Medication Instructions Recorded Confirmed Type ipratropium 0.5 mg-albuterol 3 mg 3 ml inhalation Q6H PRN Shortness 04/03/22 03/16/24 History (2.5 mg base)/3 mL nebulization Of Breath Or Wheezing soln albuterol sulfate 90 mcg/actuation 2 puff inhalation QID PRN 09/02/22 03/16/24 Rx aerosol inhaler (Ventolin HFA) Shortness Of Breath Or Wheezing #6.7 grams ascorbic acid (vitamin C) 500 mg 250 mg (1/2 x 500 mg) PO DAILY@12 09/02/22 03/16/24 Rx tablet #30 tabs ferrous sulfate 325 mg (65 mg 325 mg PO DAILY@12 #30 tabs 09/02/22 03/16/24 Rx iron) tablet metoprolol succinate 25 mg capsule 25 mg PO QAM #30 ea 09/02/22 03/16/24 Rx sprinkle, ext. release 24 hr pantoprazole 40 mg tablet,delayed 40 mg PO BID #60 tabs 09/02/22 03/16/24 Rx release simvastatin 10 mg tablet 10 mg PO HS #30 tabs 09/02/22 03/16/24 Rx furosemide 20 mg tablet 40 mg PO QAM 07/16/23 03/16/24 History tramadol 50 mg tablet 50 mg PO BID PRN pain 07/16/23 03/16/24 History acetaminophen 500 mg tablet 1,000 mg PO TID 10/02/23 03/16/24 History aspirin 81 mg chewable tablet 81 mg PO QAM 10/02/23 03/16/24 History clopidogrel 75 mg tablet 75 mg PO QAM 10/02/23 03/16/24 History famotidine 10 mg tablet 10 mg PO QAM 10/02/23 03/16/24 History fluticasone propionate 110 1 inh inhalation QAM 10/02/23 03/16/24 History mcg/actuation HFA aerosol inhaler levothyroxine 50 mcg tablet 50 mcg PO QAM 10/02/23 03/16/24 History magnesium oxide 400 mg PO BID 10/02/23 03/16/24 History topiramate 50 mg tablet (Topamax) 25 - 50 mg PO UD 10/02/23 03/16/24 History triamcinolone acetonide 0.5 % 1 applic topical BID 03/16/24 03/16/24 History topical cream (Triderm) midodrine 10 mg tablet 10 mg PO TID@0800,1200,1700 #0 tabs 03/29/24 Rx sulfamethoxazole 800 1 tab PO MoWeFr #0 tabs 03/29/24 Rx mg-trimethoprim 160 mg tablet (Bactrim DS) Hospital Stay Data Consultations 03/16/24 05:25 ED Decision to Admit Stat 03/19/24 07:29 Consult Pulmonology Routine 03/22/24 08:27 Consult Palliative Care Routine 03/22/24 15:57 Consult Patient Services Routine 03/27/24 09:59 Consult Infectious Diseases Stat Diagnostic Imagining Performed 03/16/24 07:56 CT chest diagnostic wo con Urgent 03/26/24 15:57 CT chest diagnostic wo con Routine Pending Results Patient Have Any Pending Studies at Discharge: No Discharge Instructions Given to Patient (Per Discharging Provider) Ms. Marshall is a 73-year-old female with past medical history significant for dyslipidemia, COPD, asthma, history of multifocal pneumonia, chronic heart failure with preserved ejection fraction, aortic stenosis, paroxysmal atrial fibrillation, status post TAVR, obesity, GERD, CKD stage IV, macrocytic anemia, history of tobacco use, currently living with her sister comes because of ongoing cough bringing up phlegm and right-sided chest pain on and off for last 2 weeks and admitted on 03/16/2024. Patient initially treated for bacterial pneumonia give history; however, imaging consistent with multifocal pneumonia as similar to prior, but not responsive to antibiotics. Review noted significant interstitial thickening, and repeat CT on 03/26 noted progressive of changes. There is concern that this is an idiopathic interstitial pneumonia. On 03/27 at 1430, call was made to Theresa PINA) to discuss patient's case. It was explained that patient is not experiencing iatrogenic anemia from lab draws. It was explained that transfer for a procedure (like a biopsy of lung) could happen if patient was agreeable, however, family declined any invasive procedures. It was explained that given patient's current oxygen requirements, she cannot discharge home. It was explained that Pulmonary team is exhausting their exploration for multiple etiologies, including an ID consult. It was agreed that this provider will call tomorrow at 1500 for any updates. Family declined labs. Patient defers to sister Theresa for goals. Will continue to readdress 03/28, conversation was had with Theresa on 2 occasions (total 65 minutes on phone) about reasoning for HFNC. Discussed the CXR and the progression of disease and the addition of Voriconazole. Explained that this medication is "empiric" as we do not have a fungal source, but given her progression, we will treat as we cannot confirm either way. Discussed that the need for HFNC will likely recurr given the progression of the infiltrates and may be more likely during naps/sleep. Patient declined BiPAP. Theresa verbalized understanding for the potential need for the HFNC. 03/29, labs revealed p-ANCA of >=1:640, RF 36, elevated esr/crp. Discussed case with Dr. Kim LOVE over TT: recommended no further abx or antifungal agents. Discussed case with pulm regarding patient---working for transfer. Speaking with Rheumatology about immunosuppressant regimen (rituxan?), awaiting further conversations. Disucssion with [facility] was successful. Patient accepted for ALS transfer for further Pulm evaluation. Patient declines labs until transfer. Today, patient required HFNC as expected overnight and back to oxymask. Awaiting transfer to [facility]--patient accepted 03/29 to be taken 03/31. Patient transitioned back to oxymask. Patient refuses bipap or other intervention. Sister Theresa states she will only let [facility] do further work up and continues to decline labs. Working to explain to patient and family that interventions are to help stabilize patient and get her to [facility] safely. #Acute hypoxic respiratory failure concern for Idiopathic Interstitial Pneumonia #Multifocal pneumonia #History of MRSA Chest CT: Extensive alveolar opacities throughout the lungs, including ground glass opacities and foci of developing consolidation. The findings favor multifocal pneumonia. Pulmonary edema is considered less likely. Follow-up chest CT in 3 months to ensure resolution is recommended. Cardiomegaly. Dilatation of the central pulmonary arteries suggestive of pulmonary hypertension. No pleural effusion. No pneumothorax. Mildly enlarged mediastinal lymph nodes, similar to prior exam. These can be assessed on follow-up CT to ensure stability. 122: 1. Ground-glass opacities with interstitial thickening are more widespread along both lung cobos, compared to previous CT chest 03-16-2024 (progressive disease), differential possibilities includes pulmonary edema, atypical extensive infection, pulmonary hemorrhages and pulmonary alveolar proteinosis, clinical and lab correlation is advised. -MRSA nares negative -Procalcitonin elevated -Blood culture: negative -sputum cx- light normal compa present. -Serological evaluation pending completed course of Abx without improvement Continue nebs Started on Bactrim for MWF chronic prophylaxis given steroids Amiodarone held given possible interstitial lung disease Poor candidate for bronchoscopy per pul given high oxygen requirement -Family verbalized understanding Palliative care consulted to address goals of care -family dose not wish for hospice at this time nor further palliative guidance Per prior hospitalist: "Discussed with triage officer at [facility] on 03/26/2024: Given need for transfer only for second opinion/and patient's request, lack of need for escalation of care--patient was refused for transfer." ID consult: no antifungal, no further abx, BAL ideal Voriconazole added prophylactically; however discontinued P-ANCA >=1:640, case discussed with Dr. Paredes. Coordinating transfer, in interim if denied discussing case with Rheum as well. Rheum here stated to consider rituximab, however biopsy would be ideal. Patient would be agreeable to biopsy at [facility] Spoke to Pulm [facility] to transfer patient on 03/30 Patient accepted to [place]. Awaiting to transfer possibly by 03/31 03/31: Started on Prednisone 80mg IV TID at this time, discontinued pred 20mg #Persistent hypotension *stable Patient had multiple episode of hypotension on the night of 03/17- 03/18 She also reports dizziness while standing up at home as well. Lactate within normal limits Random cortisol 8.16 Cosyntropin stimulation test negative. Continue midodrine to 10 mg 3 times daily Monitor BP Pressures stable #Mild troponin elevation Demand ischemia secondary to above Monitor #Mouth ulcerations #Oral thrush Continue nystatin EOT 03/31 magic mouth wash #COPD #asthma History of tobacco abuse quit 2018. Smoked half pack a day for 30 years Continue home inhalers, Nebs #CHF with preserved ejection fraction, compensated #Aortic stenosis status post TAVR Lasix held Monitor for volume overload #Paroxysmal atrial fibrillation Hold metoprolol and amiodarone for now Not anticoagulated secondary to GI bleed Monitor #Nonobstructive CAD Continue Plavix, aspirin ,statin and beta-nikhil #CKD stage IV Presented with creatinine 1.9 around baseline Avoid nephrotoxic agents Monitor urine output, lund removed UA negative #Anemia Anemia of chronic disease Hemoglobin 8 to 9 On iron supplement. remains stable #GERD Continue Protonix, famotidine #Migraines On Topamax Tramadol as needed #CKD stage III stable at this time, baseline 1.8-2.0 #Hypothyroidism Continue levothyroxine #Morbid obesity BMI 41.8 Counseling as outpatient Total Time Total Time Spent Total Time Spent (In Minutes): 65
--- NOTE | 2024-03-31 16:27 | XRay Report ---
EXAM: Radiograph of the Chest 1 View INDICATION: Worsening oxygenation. TECHNIQUE: Frontal view of the chest. COMPARISON: 03/28/2024 FINDINGS: Lungs and pleural spaces: Extensive bilateral interstitial and parenchymal infiltrates are stable. No pleural effusion or pneumothorax. Heart: Stable prominent cardiac shadow and aortic bioprosthetic stents. Mediastinum: Normal contour. Bones/joints: No fracture, erosion or dislocation. Soft tissues: No abnormality noted. No radiopaque foreign body noted. Upper abdomen: No abnormality noted. IMPRESSION: Extensive bilateral interstitial and parenchymal infiltrates are stable. ACT 112: Negative or not required by law. Electronically signed by Tracy Gagnon 03-31-2024 4:26 PM
== END 2024-03-31 17:15 | disposition short-term general hospital (02) | DRG 193 ==
LOC: ED 02:15 → SUATTDRO 06:01 → 2E 06:01 → 2N 22:11 → 2S 03-17 23:56 → 1E 03-19 16:12 → 2S 03-23 05:41